=== PATIENT | female | born 1960 | race Caucasian/White ===

== ENCOUNTER → 2022-01-25 07:29 | Outpatient (ROUT) | payer OTHER, MEDICAID, SELFPAY ==
[2022-01-25 08:46] LABS: Add Manual Diff / Slide Review NO; Basophils Absolute Auto 100 /uL (0-100); Basophils Percent Auto 0.8 % (0-2); Eosinophils Absolute Auto 400 /uL (0-450); Eosinophils Percent Auto 4.9 % (2-4); Hematocrit 29.1 % (36-46); Hemoglobin 9.4 g/dL (12.0-16.0); Lymphocytes Absolute Auto 1700 /uL (1100-4500); Lymphocytes Percent Auto 19.9 % (25-40); Mean Corpuscular HGB Conc 32.2 % (30-36); Mean Corpuscular Hemoglobin 29.4 PG (26-34); Mean Corpuscular Volume 91.5 fL (80-100); Monocytes Absolute Auto 700 /uL (0-900); Monocytes Percent Auto 8.3 % (3-14); Neutrophils Absolute Auto 5600 /uL (1500-7000); Neutrophils Percent Auto 66.1 % (50-75); Platelet Count 233 X10^3/uL (150-400); Red Blood Cell Count 3.18 X10^6/uL (4.0-5.2); Red Cell Distribution Width 15.9 % (11.6-14.8); White Blood Cell Count 8.5 X10^3/uL (4.5-11.0)
[2022-01-25 09:00] LABS: Hemoglobin A1C% w Est Avg Glu 6.8 % (4.0-6.0)
[2022-01-25 09:19] LABS: BUN Creatinine Ratio 20.5 (6-22); Blood Urea Nitrogen 42 mg/dL (7-17); Calcium 9.3 mg/dL (8.4-10.2); Carbon Dioxide 32 mmol/L (22-32); Chloride 102 mmol/L (98-107); Estimated Glomerular Filt Rate 27 mL/min (>60); Glucose 138 mg/dL (80-110); HEMOLYSIS < 15 (0-50); Magnesium 1.9 mg/dL (1.6-2.3); Potassium 3.9 mmol/L (3.4-5.1); Sodium 143 mmol/L (137-145)
[2022-01-25 09:51] LABS: Thyroid Stimulating Hormone 0.639 uIU/mL (0.47-4.68)
== END ==
PROVIDERS: Visit Provider Nurse Practitioner Family
DX: E11.22 Type 2 diabetes mellitus with diabetic chronic kidney disease (principal); N18.9 Chronic kidney disease, unspecified; E83.42 Hypomagnesemia; D64.9 Anemia, unspecified
CPT/HCPCS: 36415; 80048; 83036; 83735; 84443; 85025

== ENCOUNTER → 2022-02-08 07:27 | Outpatient (ROUT) | payer OTHER, MEDICAID, SELFPAY ==
[2022-02-08 07:53] LABS: Hematocrit 34.1 % (36-46); Hemoglobin 11.2 g/dL (12.0-16.0)
[2022-02-08 08:23] LABS: BUN Creatinine Ratio 17.4 (6-22); Blood Urea Nitrogen 41 mg/dL (7-17); Calcium 10.2 mg/dL (8.4-10.2); Carbon Dioxide 35 mmol/L (22-32); Chloride 95 mmol/L (98-107); Estimated Glomerular Filt Rate 23 mL/min (>60); Glucose 289 mg/dL (80-110); HEMOLYSIS < 15 (0-50); Potassium 3.7 mmol/L (3.4-5.1); Sodium 137 mmol/L (137-145)
== END ==
PROVIDERS: Visit Provider Nurse Practitioner Family
DX: D64.9 Anemia, unspecified (principal); N18.9 Chronic kidney disease, unspecified
CPT/HCPCS: 36415; 80048; 85014; 85018

== ENCOUNTER → 2022-03-15 08:03 | Outpatient (ROUT) | payer OTHER, MEDICAID, SELFPAY ==
[2022-03-15 08:59] LABS: BUN Creatinine Ratio 16.9 (6-22); Blood Urea Nitrogen 30 mg/dL (7-17); Calcium 9.1 mg/dL (8.4-10.2); Carbon Dioxide 32 mmol/L (22-32); Chloride 98 mmol/L (98-107); Estimated Glomerular Filt Rate 32 mL/min (>60); Glucose 207 mg/dL (80-110); HEMOLYSIS < 15 (0-50); Potassium 4.4 mmol/L (3.4-5.1); Sodium 139 mmol/L (137-145)
== END ==
PROVIDERS: Visit Provider Nurse Practitioner Family
DX: N18.9 Chronic kidney disease, unspecified (principal)
CPT/HCPCS: 36415; 80048

== ENCOUNTER → 2022-04-19 07:25 | Outpatient (ROUT) | payer OTHER, MEDICAID, SELFPAY ==
[2022-04-19 07:45] LABS: BUN Creatinine Ratio 20.3 (6-22); Blood Urea Nitrogen 41 mg/dL (7-17); Calcium 9.9 mg/dL (8.4-10.2); Carbon Dioxide 34 mmol/L (22-32); Chloride 94 mmol/L (98-107); Estimated Glomerular Filt Rate 28 mL/min (>60); Glucose 216 mg/dL (80-110); HEMOLYSIS < 15 (0-50); Potassium 4.3 mmol/L (3.4-5.1); Sodium 138 mmol/L (137-145)
== END ==
PROVIDERS: Visit Provider Internal Medicine
DX: N18.9 Chronic kidney disease, unspecified (principal)
CPT/HCPCS: 36415; 80048

== ENCOUNTER → 2022-05-03 07:37 | Outpatient (ROUT) | payer OTHER, MEDICAID, SELFPAY ==
[2022-05-03 07:53] LABS: Alanine Aminotransferase 40 IU/L (<35); Albumin 4.2 g/dL (3.5-5.0); Albumin Globulin Ratio 1.1 (1.0-2.8); Alkaline Phosphatase 81 U/L (38-126); Aspartate Aminotransferase 47 IU/L (14-36); BUN Creatinine Ratio 15.1 (6-22); Bilirubin Total 1.1 mg/dL (0.2-1.3); Bilirubin Unconjugated 0.6 mg/dL (0.0-1.1); Blood Urea Nitrogen 45 mg/dL (7-17); Carbon Dioxide 37 mmol/L (22-32); Chloride 96 mmol/L (98-107); Cholesterol 162 mg/dL (140-199); Estimated Glomerular Filt Rate 17 mL/min (>60); Globulin 3.7 g/dL (1.7-4.1); Glucose 214 mg/dL (80-110); HDL Cholesterol 43 mg/dL (40-60); HEMOLYSIS < 15 (0-50); LDL Cholesterol Calculated 42 mg/dL (<100); Potassium 4.3 mmol/L (3.4-5.1); Sodium 140 mmol/L (137-145); Total Protein 7.9 g/dL (6.3-8.2); Triglycerides 384 mg/dL (35-150)
[2022-05-03 08:02] LABS: Hemoglobin A1C% w Est Avg Glu 9.7 % (4.0-6.0)
[2022-05-03 08:23] LABS: Thyroid Stimulating Hormone 16.3 uIU/mL (0.47-4.68)
== END ==
PROVIDERS: Visit Provider Internal Medicine
DX: E03.9 Hypothyroidism, unspecified (principal); E11.9 Type 2 diabetes mellitus without complications
CPT/HCPCS: 36415; 80048; 80061; 80076; 83036; 84443

== ENCOUNTER → 2022-05-17 07:39 | Outpatient (ROUT) | payer OTHER, MEDICAID, SELFPAY ==
[2022-05-17 08:02] LABS: HEMOLYSIS < 15 (0-50); Iron 76 ug/dL (37-170)
[2022-05-17 08:04] LABS: Albumin 3.9 g/dL (3.5-5.0); BUN Creatinine Ratio 16.5 (6-22); Blood Urea Nitrogen 37 mg/dL (7-17); Calcium 9.6 mg/dL (8.4-10.2); Carbon Dioxide 33 mmol/L (22-32); Chloride 98 mmol/L (98-107); Estimated Glomerular Filt Rate 25 mL/min (>60); Glucose 170 mg/dL (80-110); HEMOLYSIS < 15 (0-50); Magnesium 2.2 mg/dL (1.6-2.3); Phosphorous 3.4 mg/dL (2.8-4.1); Potassium 4.5 mmol/L (3.4-5.1); Sodium 140 mmol/L (137-145); Uric Acid 4.8 mg/dL (2.5-6.2)
[2022-05-17 08:05] LABS: Add Manual Diff / Slide Review NO; Basophils Absolute Auto 0 /uL (0-100); Basophils Percent Auto 0.5 % (0-2); Eosinophils Absolute Auto 500 /uL (0-450); Eosinophils Percent Auto 5.9 % (2-4); Hemoglobin 11.7 g/dL (12.0-16.0); Lymphocytes Absolute Auto 1700 /uL (1100-4500); Lymphocytes Percent Auto 21.7 % (25-40); Mean Corpuscular HGB Conc 32.5 % (30-36); Mean Corpuscular Hemoglobin 31.5 PG (26-34); Mean Corpuscular Volume 96.9 fL (80-100); Monocytes Absolute Auto 700 /uL (0-900); Monocytes Percent Auto 8.5 % (3-14); Neutrophils Absolute Auto 5000 /uL (1500-7000); Neutrophils Percent Auto 63.4 % (50-75); Platelet Count 195 X10^3/uL (150-400); Red Blood Cell Count 3.71 X10^6/uL (4.0-5.2); Red Cell Distribution Width 19.4 % (11.6-14.8); White Blood Cell Count 7.8 X10^3/uL (4.5-11.0)
[2022-05-17 08:14] LABS: Percent Iron Saturation 22 % (15-50); Total Iron Binding Capacity 352 ug/dL (265-497); Transferrin 241 mg/dL (206-381)
[2022-05-17 08:20] LABS: Vitamin D 25 Hydroxy (D3) 47.8 ng/mL (30.0-100.0)
[2022-05-17 08:38] LABS: Ferritin 40 ng/mL (11-264)
[2022-05-19 10:43] LABS: Parathyroid Hormone Int 35 pg/mL (15-65)
== END ==
PROVIDERS: Visit Provider Internal Medicine Nephrology
DX: N18.4 Chronic kidney disease, stage 4 (severe) (principal)
CPT/HCPCS: 36415; 80048; 82040; 82306; 82728; 83540; 83550; 83735; 83970; 84100; 84550; 85025

== ENCOUNTER 2022-05-25 09:32 | Inpatient (IN) | payer OTHER, MEDICAID, SELFPAY ==
[2022-05-25] VITALS (147 sets, daily range): BP systolic 80–150; BP diastolic 48–97; PULSE 51–159; RESP 12–45; TEMP 30.4–37.3; O2SAT 78–99; BMI 54.9; BMI 51.9
--- NOTE | 2022-05-25 09:54 | ED_ITS ---
HPI - Weakness General Chief complaint: Shortness of Breath/Dyspnea Stated complaint: Weakness,hypotensive,dizzy Time Seen by Provider: 05/25/22 09:50 Source: patient and EMS Mode of arrival: EMS Limitations: no limitations History of Present Illness HPI Narrative: This is a 61-year-old female with history of autoimmune thyroiditis, hypertension, morbid obesity, diabetes type 2, COPD on daily home O2, dyslipidemia, sleep apnea, CHF and history of colon cancer. Patient presents today for generalized weakness, tremor of her legs, low blood pressure reportedly since midnight she comes from [facility]. Patient seems sleepy she awakens easily to verbal stimuli but falls back asleep. She denies any shortness of breath, she denies any pain no headache, chest pain, not neck or back pain, no abdominal back or flank pain. She notes she is on home O2 constantly, she states that she uses inhalers for her COPD, she states she quit smoking tobacco in the past. She knows she is at a hospital but thinks she is at [facility], she does not know the month and the year, she knows why she is here she is able to give history but falls asleep in between questions. Patient denies any fevers, cold cough or congestion she states no nausea or vomiting. She states she is been constipated but passing gas. She denies any new changes to had chest pain or shortness breath. She denies new swelling in her extremities. She states she normally ambulates. She is unsure who her primary care is, she denies any prior surgeries. No known drug allergies. States she quit tobacco, no alcohol, no illicit. Related Data Home Medications Medication Instructions Recorded Confirmed acetaminophen 325 mg tablet 650 mg PO TID 05/25/22 05/25/22 (Tylenol) albuterol sulfate 90 mcg/actuation 4 puff inhalation Q4H PRN Wheezing 05/25/22 05/25/22 aerosol inhaler aspirin 81 mg tablet,delayed 81 mg PO DAILY 05/25/22 05/25/22 release budesonide-formoterol HFA 160 2 puff inhalation Q4H PRN Wheezing 05/25/22 05/25/22 mcg-4.5 mcg/actuation aerosol inhaler bupropion HCl 150 mg tablet,12 hr 150 mg PO BEDTIME 05/25/22 05/25/22 sustained-release carvedilol 3.125 mg tablet 3.125 mg PO BID 05/25/22 05/25/22 cyanocobalamin (vitamin B-12) 500 500 mcg PO DAILY 05/25/22 05/25/22 mcg tablet fenofibrate 160 mg tablet 160 mg PO DAILY 05/25/22 05/25/22 ferrous sulfate 325 mg (65 mg 325 mg PO DAILY 05/25/22 05/25/22 iron) tablet fluoxetine 20 mg tablet 20 mg PO DAILY 05/25/22 05/25/22 fluticasone propionate 50 2 spray intranasal DAILY 05/25/22 05/25/22 mcg/actuation nasal spray,suspension gabapentin 300 mg capsule 300 mg PO BEDTIME 05/25/22 05/25/22 insulin glargine 100 unit/mL (3 22 unit SUBCUT BID 05/25/22 05/25/22 mL) subcutaneous pen insulin lispro 100 unit/mL 4 unit SUBCUT TIDWM 05/25/22 05/25/22 subcutaneous solution (Humalog U-100 Insulin) levothyroxine 200 mcg tablet 200 mcg PO DAILY 05/25/22 05/25/22 lidocaine 5 % topical patch 1 patch topical DAILY 05/25/22 05/25/22 loratadine 10 mg tablet 10 mg PO DAILY 05/25/22 05/25/22 magnesium hydroxide 400 mg/5 mL 15 ml PO Q24H PRN Constipation 05/25/22 05/25/22 oral suspension (Milk of Magnesia) magnesium oxide 200 mg PO BID 05/25/22 05/25/22 meclizine 25 mg tablet 25 mg PO Q8HR PRN Dizziness 05/25/22 05/25/22 montelukast 10 mg tablet 10 mg PO DAILY 05/25/22 05/25/22 nystatin 100,000 unit/gram topical 1 applic topical BID PRN Rash 05/25/22 05/25/22 powder ondansetron 4 mg disintegrating 4 mg PO Q8H PRN Nausea 05/25/22 05/25/22 tablet rosuvastatin 40 mg tablet 40 mg PO DAILY 05/25/22 05/25/22 sennosides 8.6 mg tablet (senna) 17.2 mg PO BEDTIME 05/25/22 05/25/22 tiotropium bromide 18 mcg capsule 1 cap inhalation DAILY 05/25/22 05/25/22 with inhalation device (Spiriva with HandiHaler) torsemide 10 mg tablet 30 mg PO DAILY 05/25/22 05/25/22 trazodone 50 mg tablet 50 mg PO BEDTIME 05/25/22 05/25/22 Allergies Allergy/AdvReac Type Severity Reaction Status Date / Time No Known Drug Allergies Allergy Verified 05/25/22 12:43 Review of Systems Review of Systems ROS Unobtainable: All systems reviewed & are unremarkable except as noted in HPI and below Patient History Medical History (Updated 05/25/22 @ 19:18 by Jayne Muhammad DO) Chronic hypoxemic respiratory failure COPD (chronic obstructive pulmonary disease) DM2 (diabetes mellitus, type 2) HTN (hypertension) Obesity PONCE (obstructive sleep apnea) Systolic and diastolic CHF, chronic Thyroiditis Surgical History (Updated 05/25/22 @ 18:30 by Esteban Gillespie DO) S/P hernia surgery Family History (Updated 05/25/22 @ 18:31 by Esteban Gillespie DO) Mother No pertinent past medical history Father No pertinent past medical history Exam Narrative Exam Narrative: GEN: Obese female, patient awakens easily to verbal stimuli but falls back asleep oriented that she is in the hospital does get them wrong facility but does know the month the year, why she is here, patient appears to be in mild distress. HEENT: Atraumatic, pupils are equal round reactive to light, pupils are 5-6 mm bilaterally extraocular movements are intact, nares are clear, there is no conjunctival pallor. Throat is clear without any exudates, erythema, tonsillar enlargement or uvular deviation, no facial droop. HEART: Regular rate and rhythm without murmur, clicks, rubs.pulses are equal in upper and lower extremities LUNGS:Lungs decreased bilaterally although difficult to auscultate secondary to habitus, no wheezes, rales, crackles, chest moves symmetrically ABD:bowel sounds normal, soft, non-tender, no guarding, rebound, rigidity, no masses noted, no hepatosplenomegaly :No CVA tenderness MSCL: Non-tender, no muscle atrophy, patient has full range of motion upper extremities, patient can lift legs off bed, no lateralizing weakness but does have some difficulty. NEURO:CN 2-12 intact, sensation normal Initial Vital Signs Initial Vital Signs: Vital Signs Pulse Rate 68 05/25/22 09:37 Pulse Oximetry 88 L 05/25/22 09:37 Oxygen Delivery Method Nasal Cannula 05/25/22 09:37 Oxygen Flow Rate 2 05/25/22 09:37 Course Orders Ordered: ED Orders 05/25/22 10:20 CT head/brain wo con Stat Chest [XR chest 1V] Stat 05/25/22 10:53 Acetaminophen Stat Ammonia (NH3) Stat Ethanol (ETOH) Stat Osmolality, Serum Stat Prolactin Stat Salicylate Stat 05/25/22 11:08 Blood Culture Stat 05/25/22 11:10 Arterial Blood Gas Stat 05/25/22 11:48 BiPAP Ventilatory Support RT PROTOCOL 05/25/22 11:50 Urine Culture Stat Urine Drug Screen, Rapid Stat 05/25/22 12:54 ABG [Arterial Blood Gas] Stat 05/25/22 13:24 CT abdomen pelvis w con Stat CT angio chest PE protocol Stat 05/25/22 13:30 XR chest for PICC 1V Stat 05/25/22 15:05 ABG [Arterial Blood Gas] Stat 05/25/22 15:13 Urinalysis and Microscopic Stat 05/25/22 15:34 BMP [Basic Metabolic Panel] Stat Lactate (Lactic Acid) Stat Troponin & CK Cardiac Panel Stat 05/25/22 17:18 VBG [Venous Blood Gas] Stat 05/25/22 18:37 Consult to Tele-recreation leader Routine BiPAP Ventilatory Support RT PROTOCOL RT Consult Eval and Treat NOW Albuterol (Albuterol 2.5 Mg/3 Ml Neb (Adult)) 2.5 mg INH [id number] PRN PRN Reason: Shortness Of Breath Albuterol/Ipratropium (Albuterol/Ipratropium 3 Ml Ampul) 3 ml INH [id number] JAY JAY Dextrose (Dextrose 50 % In Water 25 Gm/50 Ml Syringe) 25 gm IV PRN PRN PRN Reason: Hypoglycemia Enoxaparin Sodium (Enoxaparin 30 Mg/0.3 Ml Syringe) 30 mg SUBCUT DAILY JAY JAY NOREPINEPHRINE BITARTRATE/D5W (Levophed) 4 mg in 250 mls @ 30 mls/hr IV TITRATE JAY JAY; Protocol Last Titration: 05/25/22 18:45 Dose: 2 mcg/min, 7.5 mls/hr Documented By: Titration: 05/25/22 18:00 Dose: 4 mcg/min, 15 mls/hr Documented By: Titration: 05/25/22 16:22 Dose: 6 mcg/min, 22.5 mls/hr Documented By: Titration: 05/25/22 15:00 Dose: 7 mcg/min, 26.25 mls/hr Documented By: Admin: 05/25/22 12:58 Dose: 8 mcg/min, 30 mls/hr Documented By: PAVEL Ceftriaxone Sodium 1,000 mg/ (Sodium Chloride) 100 mls @ 200 mls/hr IV Q24H JAY JAY Insulin Glargine (Insulin Glargine 100 Unit/Ml 3ml Pen) 10 unit SUBCUT 2100 JAY JAY Insulin Human Lispro (Insulin Lispro 100 Unit/Ml 3ml Vial) 0 unit SUBCUT ACHS JAY JAY; Protocol Naloxone HCl (Naloxone 0.4 Mg/Ml Vial) 0.2 mg IV Q2MIN PRN PRN Reason: Opiate Reversal Last Admin: 05/25/22 12:35 Dose: 0.2 mg Documented By: Admin: 05/25/22 12:27 Dose: 0.2 mg Documented By: PAVEL Naloxone HCl (Naloxone 0.4 Mg/Ml Vial) 0.2 mg IV Q2MIN PRN PRN Reason: Opiate Reversal Discontinued Medications Sodium Chloride (Normal Saline 0.9%) 1,000 mls @ 1,000 mls/hr IV BOLUS ONE Stop: 05/25/22 11:19 Last Infusion: 05/25/22 13:15 Dose: 0 mls/hr Documented By: Admin: 05/25/22 11:30 Dose: 1,000 mls/hr Documented By: PAVEL Piperacillin Sod/Tazobactam (Sod 4.5 gm/ Sodium Chloride) 100 mls @ 200 mls/hr IV NOW ONE Stop: 05/25/22 12:43 Last Infusion: 05/25/22 13:45 Dose: 0 mls/hr Documented By: Admin: 05/25/22 13:05 Dose: 200 mls/hr Documented By: PAVEL Lactated Ringer's (Lactated Ringers) 1,000 mls @ 1,000 mls/hr IV BOLUS ONE Stop: 05/25/22 15:57 Last Infusion: 05/25/22 17:05 Dose: 0 mls/hr Documented By: PAVEL(2) Admin: 05/25/22 15:10 Dose: 1,000 mls/hr Documented By: PAVEL Lactated Ringer's (Lactated Ringers) 1,000 mls @ 125 mls/hr IV CONT JAY JAY Last Infusion: 05/25/22 19:02 Dose: 0 mls/hr Documented By: Admin: 05/25/22 17:50 Dose: 125 mls/hr Documented By: PAVEL Vital Signs Vital signs: Vital Signs - 8 hr 05/25/22 11:35 05/25/22 11:30 05/25/22 11:45 Pulse Rate 62 60 Respiratory Rate 23 25 H Blood Pressure Pulse Oximetry 95 92 Oxygen Delivery Method Fraction of Inspired Oxygen 30 05/25/22 12:00 05/25/22 12:15 05/25/22 12:22 Pulse Rate 61 54 L Respiratory Rate 27 H 26 H Blood Pressure 87/51 L Pulse Oximetry 93 Oxygen Delivery Method Fraction of Inspired Oxygen 05/25/22 12:22 05/25/22 12:25 05/25/22 12:25 Pulse Rate 52 L 52 L Respiratory Rate 24 24 Blood Pressure 80/52 L Pulse Oximetry 91 91 Oxygen Delivery Method Fraction of Inspired Oxygen 05/25/22 12:53 05/25/22 12:30 05/25/22 12:30 Pulse Rate 51 L Respiratory Rate 24 Blood Pressure 91/61 82/52 L Pulse Oximetry 91 Oxygen Delivery Method Fraction of Inspired Oxygen 05/25/22 12:33 05/25/22 12:33 05/25/22 12:35 Pulse Rate 52 L Respiratory Rate 21 Blood Pressure 87/49 L 85/48 L Pulse Oximetry 93 Oxygen Delivery Method Fraction of Inspired Oxygen 05/25/22 12:35 05/25/22 12:40 05/25/22 12:40 Pulse Rate 52 L 51 L Respiratory Rate 21 21 Blood Pressure 84/51 L Pulse Oximetry 92 92 Oxygen Delivery Method Fraction of Inspired Oxygen 05/25/22 12:45 05/25/22 12:45 05/25/22 12:50 Pulse Rate 51 L 52 L Respiratory Rate 22 22 Blood Pressure 83/52 L Pulse Oximetry 92 93 Oxygen Delivery Method Fraction of Inspired Oxygen 05/25/22 12:52 05/25/22 12:52 05/25/22 12:55 Pulse Rate 53 L Respiratory Rate 22 Blood Pressure 91/61 91/59 L Pulse Oximetry 93 Oxygen Delivery Method BiPAP BiPAP Fraction of Inspired Oxygen 05/25/22 12:55 05/25/22 13:00 05/25/22 13:00 Pulse Rate 54 L 54 L Respiratory Rate 24 20 Blood Pressure 89/63 L Pulse Oximetry 93 93 Oxygen Delivery Method BiPAP Fraction of Inspired Oxygen 05/25/22 13:05 05/25/22 13:05 05/25/22 13:10 Pulse Rate 52 L Respiratory Rate 20 Blood Pressure 98/71 106/85 Pulse Oximetry 95 Oxygen Delivery Method BiPAP Fraction of Inspired Oxygen 05/25/22 13:10 05/25/22 13:15 05/25/22 13:15 Pulse Rate 62 56 L Respiratory Rate 20 21 Blood Pressure 115/86 Pulse Oximetry 97 97 Oxygen Delivery Method BiPAP Fraction of Inspired Oxygen 05/25/22 13:20 05/25/22 13:20 05/25/22 13:25 Pulse Rate 56 L Respiratory Rate 21 Blood Pressure 119/83 119/84 Pulse Oximetry 97 Oxygen Delivery Method BiPAP Fraction of Inspired Oxygen 05/25/22 13:25 05/25/22 13:30 05/25/22 13:30 Pulse Rate 55 L 57 L Respiratory Rate 21 21 Blood Pressure 117/86 Pulse Oximetry 96 96 Oxygen Delivery Method Fraction of Inspired Oxygen 05/25/22 13:35 05/25/22 13:35 05/25/22 13:40 Pulse Rate 58 L Respiratory Rate 21 Blood Pressure 120/87 123/85 Pulse Oximetry 96 Oxygen Delivery Method Fraction of Inspired Oxygen 05/25/22 13:40 05/25/22 13:45 05/25/22 13:45 Pulse Rate 58 L 59 L Respiratory Rate 21 21 Blood Pressure 122/85 Pulse Oximetry 98 97 Oxygen Delivery Method Fraction of Inspired Oxygen 05/25/22 13:50 05/25/22 13:50 05/25/22 13:55 Pulse Rate 58 L Respiratory Rate 25 H Blood Pressure 127/87 125/91 H Pulse Oximetry 99 Oxygen Delivery Method Fraction of Inspired Oxygen 05/25/22 13:55 05/25/22 13:55 05/25/22 14:00 Pulse Rate 58 L Respiratory Rate 25 H Blood Pressure 125/91 H 127/92 H Pulse Oximetry 98 Oxygen Delivery Method Fraction of Inspired Oxygen 05/25/22 14:00 05/25/22 14:00 05/25/22 14:05 Pulse Rate 62 62 Respiratory Rate 26 H 25 H Blood Pressure 127/92 H Pulse Oximetry 98 98 Oxygen Delivery Method Fraction of Inspired Oxygen 05/25/22 14:07 05/25/22 14:07 05/25/22 14:10 Pulse Rate 64 61 Respiratory Rate 25 H 25 H Blood Pressure 150/85 H Pulse Oximetry 96 95 Oxygen Delivery Method Fraction of Inspired Oxygen 05/25/22 14:11 05/25/22 14:11 05/25/22 14:15 Pulse Rate 60 Respiratory Rate 25 H Blood Pressure 123/83 135/90 Pulse Oximetry 96 Oxygen Delivery Method Fraction of Inspired Oxygen 05/25/22 14:15 05/25/22 14:20 05/25/22 14:20 Pulse Rate 59 L 60 Respiratory Rate 21 21 Blood Pressure 137/88 Pulse Oximetry 97 97 Oxygen Delivery Method Fraction of Inspired Oxygen 05/25/22 14:25 05/25/22 14:25 05/25/22 14:30 Pulse Rate 60 Respiratory Rate 21 Blood Pressure 130/88 130/89 Pulse Oximetry 97 Oxygen Delivery Method Fraction of Inspired Oxygen 05/25/22 14:30 05/25/22 14:33 05/25/22 14:33 Pulse Rate 59 L 60 Respiratory Rate 20 20 Blood Pressure 135/81 Pulse Oximetry 97 97 Oxygen Delivery Method Fraction of Inspired Oxygen 05/25/22 14:35 05/25/22 14:35 05/25/22 14:40 Pulse Rate 61 Respiratory Rate 21 Blood Pressure 129/97 H 114/85 Pulse Oximetry 97 Oxygen Delivery Method Fraction of Inspired Oxygen 05/25/22 14:40 05/25/22 14:45 05/25/22 14:45 Pulse Rate 64 64 Respiratory Rate 20 21 Blood Pressure 123/86 Pulse Oximetry 96 98 Oxygen Delivery Method Fraction of Inspired Oxygen 05/25/22 14:47 05/25/22 14:47 05/25/22 14:50 Pulse Rate 62 Respiratory Rate 20 Blood Pressure 133/86 134/88 Pulse Oximetry 98 Oxygen Delivery Method Fraction of Inspired Oxygen 05/25/22 14:50 05/25/22 14:55 05/25/22 14:55 Pulse Rate 59 L 59 L Respiratory Rate 21 20 Blood Pressure 133/91 H Pulse Oximetry 97 96 Oxygen Delivery Method Fraction of Inspired Oxygen 05/25/22 15:00 05/25/22 15:00 05/25/22 15:05 Pulse Rate 59 L 58 L Respiratory Rate 21 21 Blood Pressure 131/90 Pulse Oximetry 95 95 Oxygen Delivery Method BiPAP Fraction of Inspired Oxygen 05/25/22 15:10 05/25/22 15:10 05/25/22 15:15 Pulse Rate 58 L 61 Respiratory Rate 25 H 24 Blood Pressure 131/83 Pulse Oximetry 95 95 Oxygen Delivery Method BiPAP Fraction of Inspired Oxygen 05/25/22 15:20 05/25/22 15:25 05/25/22 15:30 Pulse Rate 61 60 59 L Respiratory Rate 23 25 H 24 Blood Pressure 130/82 Pulse Oximetry 94 95 96 Oxygen Delivery Method Fraction of Inspired Oxygen 05/25/22 15:35 05/25/22 15:40 05/25/22 15:45 Pulse Rate 59 L 60 59 L Respiratory Rate 25 H 25 H 24 Blood Pressure Pulse Oximetry 96 96 95 Oxygen Delivery Method Fraction of Inspired Oxygen 05/25/22 15:50 05/25/22 15:55 05/25/22 16:00 Pulse Rate 59 L 58 L 58 L Respiratory Rate 25 H 25 H 25 H Blood Pressure 128/86 Pulse Oximetry 96 96 96 Oxygen Delivery Method Fraction of Inspired Oxygen 05/25/22 16:05 05/25/22 16:10 05/25/22 16:15 Pulse Rate 56 L 55 L 55 L Respiratory Rate 25 H 25 H 25 H Blood Pressure Pulse Oximetry 96 96 96 Oxygen Delivery Method Fraction of Inspired Oxygen 05/25/22 16:20 05/25/22 16:25 05/25/22 16:28 Pulse Rate 55 L 60 60 Respiratory Rate 25 H 25 H 25 H Blood Pressure Pulse Oximetry 96 94 95 Oxygen Delivery Method BiPAP Fraction of Inspired Oxygen 05/25/22 16:29 05/25/22 17:00 05/25/22 16:29 Pulse Rate 60 Respiratory Rate 25 H Blood Pressure 126/84 112/70 Pulse Oximetry 96 Oxygen Delivery Method Fraction of Inspired Oxygen 05/25/22 16:30 05/25/22 16:30 05/25/22 16:35 Pulse Rate 59 L Respiratory Rate 25 H Blood Pressure 128/83 126/85 Pulse Oximetry 95 Oxygen Delivery Method Fraction of Inspired Oxygen 05/25/22 16:35 05/25/22 16:40 05/25/22 16:40 Pulse Rate 57 L 58 L Respiratory Rate 25 H 25 H Blood Pressure 126/84 Pulse Oximetry 95 96 Oxygen Delivery Method Fraction of Inspired Oxygen 05/25/22 16:45 05/25/22 16:45 05/25/22 16:50 Pulse Rate 60 Respiratory Rate 26 H Blood Pressure 118/73 124/79 Pulse Oximetry 95 Oxygen Delivery Method Fraction of Inspired Oxygen 05/25/22 16:50 05/25/22 16:55 05/25/22 16:55 Pulse Rate 58 L 60 Respiratory Rate 25 H 25 H Blood Pressure 121/77 Pulse Oximetry 94 95 Oxygen Delivery Method Fraction of Inspired Oxygen 05/25/22 17:00 05/25/22 17:00 05/25/22 17:05 Pulse Rate 59 L Respiratory Rate 25 H Blood Pressure 119/78 120/81 Pulse Oximetry 97 Oxygen Delivery Method BiPAP Fraction of Inspired Oxygen 05/25/22 17:05 05/25/22 17:10 05/25/22 17:10 Pulse Rate 57 L 60 Respiratory Rate 25 H 25 H Blood Pressure 122/81 Pulse Oximetry 99 96 Oxygen Delivery Method Fraction of Inspired Oxygen 05/25/22 17:15 05/25/22 17:15 05/25/22 17:20 Pulse Rate 59 L Respiratory Rate 22 Blood Pressure 123/83 122/76 Pulse Oximetry 95 Oxygen Delivery Method Fraction of Inspired Oxygen 05/25/22 17:20 Pulse Rate 58 L Respiratory Rate 24 Blood Pressure Pulse Oximetry 96 Oxygen Delivery Method Fraction of Inspired Oxygen MDM - Weakness Lab Data 05/25/22 09:00 05/25/22 15:34 Labs: Lab Results 05/25/22 05/25/22 05/25/22 Range/Units 09:00 09:00 09:00 WBC 8.8 (4.5-11.0) X10^3/uL RBC 3.34 L (4.0-5.2) X10^6/uL Hgb 10.7 L (12.0-16.0) g/dL Hct 33.5 L (36-46) % MCV 100.3 H D (80-100) fL MCH 32.2 (26-34) PG MCHC 32.1 (30-36) % RDW 19.6 H (11.6-14.8) % Plt Count 183 (150-400) X10^3/uL Neut % (Auto) 68.6 (50-75) % Lymph % (Auto) 19.6 L (25-40) % [place] % (Auto) 8.8 (3-14) % Eos % (Auto) 2.5 (2-4) % Baso % (Auto) 0.5 (0-2) % Neut # (Auto) 6000 (3689-1207) /uL Lymph # (Auto) 1700 (7293-7691) /uL [place] # (Auto) 800 (0-900) /uL Eos # (Auto) 200 (0-450) /uL Baso # (Auto) 0 (0-100) /uL PT 12.6 (10.1-12.7) SECONDS INR 1.1 (0.9-1.3) APTT 31 (26-36) SECONDS ABG pH (7.35-7.45) ABG pCO2 (35-45) mmHg ABG pO2 (80-100) mmHg ABG HCO3 (23-27) mmol/L ABG Total CO2 (23-27) mmol/L ABG O2 Saturation (95-100) % ABG Base Excess (-2-3) mmol/L VBG pH (7.33-7.43) VBG pCO2 (45-50) mmHg VBG pO2 (35-45) mmHg VBG HCO3 (24-28) mmol/L VBG Total CO2 (24-29) mmol/L VBG O2 Saturation (70-75) % VBG Base Excess (0-4) mmol/L FiO2 Sodium 139 (137-145) mmol/L Potassium 4.9 (3.4-5.1) mmol/L Chloride 96 L (98-107) mmol/L Carbon Dioxide 37 H (22-32) mmol/L BUN 57 H (7-17) mg/dL Creatinine 3.11 H (0.52-1.04) mg/dL Estimated GFR 17 L (>60) mL/min BUN/Creatinine Ratio 18.3 (6-22) Glucose 127 H (80-110) mg/dL Lactate (0.7-2.1) mmol/L Calcium 9.7 (8.4-10.2) mg/dL Total Bilirubin 0.5 (0.2-1.3) mg/dL AST 50 H (14-36) IU/L ALT 21 (<35) IU/L Alkaline Phosphatase 49 (38-126) U/L Ammonia (9-30) umol/L Total Creatine Kinase 2243 H (30-135) U/L CK-MB (CK-2) 12.70 H (<2.37) ng/mL CK-MB (CK-2) Rel Index 0.6 L (1.5-5.0) % Troponin I 0.052 H (0.01-0.034) ng/mL NT-Pro-B Natriuret Pep (<125) pg/mL Total Protein 7.5 (6.3-8.2) g/dL Albumin 4.1 (3.5-5.0) g/dL Globulin 3.4 (1.7-4.1) g/dL Albumin/Globulin Ratio 1.2 (1.0-2.8) Procalcitonin 0.20 (<0.5) ng/mL TSH (0.47-4.68) uIU/mL Prolactin (3.0-18.6) ng/mL Urine Color Urine Appearance Urine pH (4.5-8.0) Ur Specific [place] (1.000-1.035) Urine Protein (Negative) Urine Glucose (UA) (Negative) g/dL Urine Ketones (NEGATIVE) Urine Occult Blood (Negative) Urine Nitrate (Negative) Urine Bilirubin (NEGATIVE) Urine Urobilinogen (0.2) E.U./dL Ur Leukocyte Esterase (NEGATIVE) Urine RBC (0-5/HPF) Urine WBC (0-5/HPF) Ur Squamous Epith Cells (0-5/HPF) Urine Bacteria (None) Hyaline Casts (None) Ur Culture Indicated? Salicylates (<20) mg/dL U Opiates 300ng/mL cut (Negative) Ur Oxycodone Screen (Negative) Urine Methadone Screen (Negative) Acetaminophen (10-30) ug/mL Ur Barbiturates Screen (Negative) U Tricyclic Antidepress (Negative) Ur Phencyclidine Scrn (Negative) Ur Amphetamines Screen (Negative) U Methamphetamines Scrn (Negative) Ur MDMA Scrn (Ecstasy) (Negative) U Benzodiazepines Scrn (Negative) Urine Cocaine Screen (Negative) U Marijuana (THC) Screen (Negative) Ethyl Alcohol ( - 10) mg/dL 05/25/22 05/25/22 05/25/22 Range/Units 09:00 09:00 09:00 WBC (4.5-11.0) X10^3/uL RBC (4.0-5.2) X10^6/uL Hgb (12.0-16.0) g/dL Hct (36-46) % MCV (80-100) fL MCH (26-34) PG MCHC (30-36) % RDW (11.6-14.8) % Plt Count (150-400) X10^3/uL Neut % (Auto) (50-75) % Lymph % (Auto) (25-40) % [place] % (Auto) (3-14) % Eos % (Auto) (2-4) % Baso % (Auto) (0-2) % Neut # (Auto) (6856-8442) /uL Lymph # (Auto) (8234-8601) /uL [place] # (Auto) (0-900) /uL Eos # (Auto) (0-450) /uL Baso # (Auto) (0-100) /uL PT (10.1-12.7) SECONDS INR (0.9-1.3) APTT (26-36) SECONDS ABG pH (7.35-7.45) ABG pCO2 (35-45) mmHg ABG pO2 (80-100) mmHg ABG HCO3 (23-27) mmol/L ABG Total CO2 (23-27) mmol/L ABG O2 Saturation (95-100) % ABG Base Excess (-2-3) mmol/L VBG pH (7.33-7.43) VBG pCO2 (45-50) mmHg VBG pO2 (35-45) mmHg VBG HCO3 (24-28) mmol/L VBG Total CO2 (24-29) mmol/L VBG O2 Saturation (70-75) % VBG Base Excess (0-4) mmol/L FiO2 Sodium (137-145) mmol/L Potassium (3.4-5.1) mmol/L Chloride (98-107) mmol/L Carbon Dioxide (22-32) mmol/L BUN (7-17) mg/dL Creatinine (0.52-1.04) mg/dL Estimated GFR (>60) mL/min BUN/Creatinine Ratio (6-22) Glucose (80-110) mg/dL Lactate 1.1 (0.7-2.1) mmol/L Calcium (8.4-10.2) mg/dL Total Bilirubin (0.2-1.3) mg/dL AST (14-36) IU/L ALT (<35) IU/L Alkaline Phosphatase (38-126) U/L Ammonia (9-30) umol/L Total Creatine Kinase (30-135) U/L CK-MB (CK-2) (<2.37) ng/mL CK-MB (CK-2) Rel Index (1.5-5.0) % Troponin I (0.01-0.034) ng/mL NT-Pro-B Natriuret Pep 5690 H (<125) pg/mL Total Protein (6.3-8.2) g/dL Albumin (3.5-5.0) g/dL Globulin (1.7-4.1) g/dL Albumin/Globulin Ratio (1.0-2.8) Procalcitonin (<0.5) ng/mL TSH 3.19 (0.47-4.68) uIU/mL Prolactin (3.0-18.6) ng/mL Urine Color Urine Appearance Urine pH (4.5-8.0) Ur Specific [place] (1.000-1.035) Urine Protein (Negative) Urine Glucose (UA) (Negative) g/dL Urine Ketones (NEGATIVE) Urine Occult Blood (Negative) Urine Nitrate (Negative) Urine Bilirubin (NEGATIVE) Urine Urobilinogen (0.2) E.U./dL Ur Leukocyte Esterase (NEGATIVE) Urine RBC (0-5/HPF) Urine WBC (0-5/HPF) Ur Squamous Epith Cells (0-5/HPF) Urine Bacteria (None) Hyaline Casts (None) Ur Culture Indicated? Salicylates (<20) mg/dL U Opiates 300ng/mL cut (Negative) Ur Oxycodone Screen (Negative) Urine Methadone Screen (Negative) Acetaminophen (10-30) ug/mL Ur Barbiturates Screen (Negative) U Tricyclic Antidepress (Negative) Ur Phencyclidine Scrn (Negative) Ur Amphetamines Screen (Negative) U Methamphetamines Scrn (Negative) Ur MDMA Scrn (Ecstasy) (Negative) U Benzodiazepines Scrn (Negative) Urine Cocaine Screen (Negative) U Marijuana (THC) Screen (Negative) Ethyl Alcohol ( - 10) mg/dL 05/25/22 05/25/22 05/25/22 Range/Units 10:53 10:53 11:10 WBC (4.5-11.0) X10^3/uL RBC (4.0-5.2) X10^6/uL Hgb (12.0-16.0) g/dL Hct (36-46) % MCV (80-100) fL MCH (26-34) PG MCHC (30-36) % RDW (11.6-14.8) % Plt Count (150-400) X10^3/uL Neut % (Auto) (50-75) % Lymph % (Auto) (25-40) % [place] % (Auto) (3-14) % Eos % (Auto) (2-4) % Baso % (Auto) (0-2) % Neut # (Auto) (4138-5213) /uL Lymph # (Auto) (2574-9719) /uL [place] # (Auto) (0-900) /uL Eos # (Auto) (0-450) /uL Baso # (Auto) (0-100) /uL PT (10.1-12.7) SECONDS INR (0.9-1.3) APTT (26-36) SECONDS ABG pH 7.31 L (7.35-7.45) ABG pCO2 71.9 H* (35-45) mmHg ABG pO2 106 H (80-100) mmHg ABG HCO3 36 H (23-27) mmol/L ABG Total CO2 38 H (23-27) mmol/L ABG O2 Saturation 97 (95-100) % ABG Base Excess 10.0 H (-2-3) mmol/L VBG pH (7.33-7.43) VBG pCO2 (45-50) mmHg VBG pO2 (35-45) mmHg VBG HCO3 (24-28) mmol/L VBG Total CO2 (24-29) mmol/L VBG O2 Saturation (70-75) % VBG Base Excess (0-4) mmol/L FiO2 32 Sodium (137-145) mmol/L Potassium (3.4-5.1) mmol/L Chloride (98-107) mmol/L Carbon Dioxide (22-32) mmol/L BUN (7-17) mg/dL Creatinine (0.52-1.04) mg/dL Estimated GFR (>60) mL/min BUN/Creatinine Ratio (6-22) Glucose (80-110) mg/dL Lactate (0.7-2.1) mmol/L Calcium (8.4-10.2) mg/dL Total Bilirubin (0.2-1.3) mg/dL AST (14-36) IU/L ALT (<35) IU/L Alkaline Phosphatase (38-126) U/L Ammonia < 9 L (9-30) umol/L Total Creatine Kinase (30-135) U/L CK-MB (CK-2) (<2.37) ng/mL CK-MB (CK-2) Rel Index (1.5-5.0) % Troponin I (0.01-0.034) ng/mL NT-Pro-B Natriuret Pep (<125) pg/mL Total Protein (6.3-8.2) g/dL Albumin (3.5-5.0) g/dL Globulin (1.7-4.1) g/dL Albumin/Globulin Ratio (1.0-2.8) Procalcitonin (<0.5) ng/mL TSH (0.47-4.68) uIU/mL Prolactin 18.0 (3.0-18.6) ng/mL Urine Color Urine Appearance Urine pH (4.5-8.0) Ur Specific [place] (1.000-1.035) Urine Protein (Negative) Urine Glucose (UA) (Negative) g/dL Urine Ketones (NEGATIVE) Urine Occult Blood (Negative) Urine Nitrate (Negative) Urine Bilirubin (NEGATIVE) Urine Urobilinogen (0.2) E.U./dL Ur Leukocyte Esterase (NEGATIVE) Urine RBC (0-5/HPF) Urine WBC (0-5/HPF) Ur Squamous Epith Cells (0-5/HPF) Urine Bacteria (None) Hyaline Casts (None) Ur Culture Indicated? Salicylates < 1.0 (<20) mg/dL U Opiates 300ng/mL cut (Negative) Ur Oxycodone Screen (Negative) Urine Methadone Screen (Negative) Acetaminophen < 10 (10-30) ug/mL Ur Barbiturates Screen (Negative) U Tricyclic Antidepress (Negative) Ur Phencyclidine Scrn (Negative) Ur Amphetamines Screen (Negative) U Methamphetamines Scrn (Negative) Ur MDMA Scrn (Ecstasy) (Negative) U Benzodiazepines Scrn (Negative) Urine Cocaine Screen (Negative) U Marijuana (THC) Screen (Negative) Ethyl Alcohol < 10 ( - 10) mg/dL 05/25/22 05/25/22 05/25/22 Range/Units 11:50 11:50 12:54 WBC (4.5-11.0) X10^3/uL RBC (4.0-5.2) X10^6/uL Hgb (12.0-16.0) g/dL Hct (36-46) % MCV (80-100) fL MCH (26-34) PG MCHC (30-36) % RDW (11.6-14.8) % Plt Count (150-400) X10^3/uL Neut % (Auto) (50-75) % Lymph % (Auto) (25-40) % [place] % (Auto) (3-14) % Eos % (Auto) (2-4) % Baso % (Auto) (0-2) % Neut # (Auto) (5104-0689) /uL Lymph # (Auto) (0140-4064) /uL [place] # (Auto) (0-900) /uL Eos # (Auto) (0-450) /uL Baso # (Auto) (0-100) /uL PT (10.1-12.7) SECONDS INR (0.9-1.3) APTT (26-36) SECONDS ABG pH 7.29 L* (7.35-7.45) ABG pCO2 69.7 H* (35-45) mmHg ABG pO2 78 L (80-100) mmHg ABG HCO3 33 H (23-27) mmol/L ABG Total CO2 35 H (23-27) mmol/L ABG O2 Saturation 93 L (95-100) % ABG Base Excess 7.0 H (-2-3) mmol/L VBG pH (7.33-7.43) VBG pCO2 (45-50) mmHg VBG pO2 (35-45) mmHg VBG HCO3 (24-28) mmol/L VBG Total CO2 (24-29) mmol/L VBG O2 Saturation (70-75) % VBG Base Excess (0-4) mmol/L FiO2 30 Sodium (137-145) mmol/L Potassium (3.4-5.1) mmol/L Chloride (98-107) mmol/L Carbon Dioxide (22-32) mmol/L BUN (7-17) mg/dL Creatinine (0.52-1.04) mg/dL Estimated GFR (>60) mL/min BUN/Creatinine Ratio (6-22) Glucose (80-110) mg/dL Lactate (0.7-2.1) mmol/L Calcium (8.4-10.2) mg/dL Total Bilirubin (0.2-1.3) mg/dL AST (14-36) IU/L ALT (<35) IU/L Alkaline Phosphatase (38-126) U/L Ammonia (9-30) umol/L Total Creatine Kinase (30-135) U/L CK-MB (CK-2) (<2.37) ng/mL CK-MB (CK-2) Rel Index (1.5-5.0) % Troponin I (0.01-0.034) ng/mL NT-Pro-B Natriuret Pep (<125) pg/mL Total Protein (6.3-8.2) g/dL Albumin (3.5-5.0) g/dL Globulin (1.7-4.1) g/dL Albumin/Globulin Ratio (1.0-2.8) Procalcitonin (<0.5) ng/mL TSH (0.47-4.68) uIU/mL Prolactin (3.0-18.6) ng/mL Urine Color Yellow Urine Appearance Clear Urine pH 7.0 (4.5-8.0) Ur Specific [place] 1.010 (1.000-1.035) Urine Protein 1+ H (Negative) Urine Glucose (UA) Trace H (Negative) g/dL Urine Ketones Negative (NEGATIVE) Urine Occult Blood 2+ H (Negative) Urine Nitrate Negative (Negative) Urine Bilirubin Negative (NEGATIVE) Urine Urobilinogen 0.2 (0.2) E.U./dL Ur Leukocyte Esterase 1+ H (NEGATIVE) Urine RBC 5-10/hpf H (0-5/HPF) Urine WBC 10-30/hpf H (0-5/HPF) Ur Squamous Epith Cells 1-5 /hpf (0-5/HPF) Urine Bacteria None seen (None) Hyaline Casts 1-5/lpf (None) Ur Culture Indicated? Specimen cultured Salicylates (<20) mg/dL U Opiates 300ng/mL cut Negative (Negative) Ur Oxycodone Screen Negative (Negative) Urine Methadone Screen Negative (Negative) Acetaminophen (10-30) ug/mL Ur Barbiturates Screen Negative (Negative) U Tricyclic Antidepress Negative (Negative) Ur Phencyclidine Scrn Negative (Negative) Ur Amphetamines Screen Negative (Negative) U Methamphetamines Scrn Negative (Negative) Ur MDMA Scrn (Ecstasy) Negative (Negative) U Benzodiazepines Scrn Negative (Negative) Urine Cocaine Screen Negative (Negative) U Marijuana (THC) Screen Negative (Negative) Ethyl Alcohol ( - 10) mg/dL 05/25/22 05/25/22 05/25/22 Range/Units 15:34 15:34 17:18 WBC (4.5-11.0) X10^3/uL RBC (4.0-5.2) X10^6/uL Hgb (12.0-16.0) g/dL Hct (36-46) % MCV (80-100) fL MCH (26-34) PG MCHC (30-36) % RDW (11.6-14.8) % Plt Count (150-400) X10^3/uL Neut % (Auto) (50-75) % Lymph % (Auto) (25-40) % [place] % (Auto) (3-14) % Eos % (Auto) (2-4) % Baso % (Auto) (0-2) % Neut # (Auto) (9987-3076) /uL Lymph # (Auto) (1886-8133) /uL [place] # (Auto) (0-900) /uL Eos # (Auto) (0-450) /uL Baso # (Auto) (0-100) /uL PT (10.1-12.7) SECONDS INR (0.9-1.3) APTT (26-36) SECONDS ABG pH (7.35-7.45) ABG pCO2 (35-45) mmHg ABG pO2 (80-100) mmHg ABG HCO3 (23-27) mmol/L ABG Total CO2 (23-27) mmol/L ABG O2 Saturation (95-100) % ABG Base Excess (-2-3) mmol/L VBG pH 7.32 L (7.33-7.43) VBG pCO2 64.1 H (45-50) mmHg VBG pO2 29 L (35-45) mmHg VBG HCO3 33 H (24-28) mmol/L VBG Total CO2 35 H (24-29) mmol/L VBG O2 Saturation 47 L (70-75) % VBG Base Excess 7.0 H (0-4) mmol/L FiO2 30 Sodium 138 (137-145) mmol/L Potassium 4.9 (3.4-5.1) mmol/L Chloride 98 (98-107) mmol/L Carbon Dioxide 34 H (22-32) mmol/L BUN 53 H (7-17) mg/dL Creatinine 3.08 H (0.52-1.04) mg/dL Estimated GFR 17 L (>60) mL/min BUN/Creatinine Ratio 17.2 (6-22) Glucose 115 H (80-110) mg/dL Lactate 1.2 (0.7-2.1) mmol/L Calcium 9.1 (8.4-10.2) mg/dL Total Bilirubin (0.2-1.3) mg/dL AST (14-36) IU/L ALT (<35) IU/L Alkaline Phosphatase (38-126) U/L Ammonia (9-30) umol/L Total Creatine Kinase 5086 H D (30-135) U/L CK-MB (CK-2) 17.20 H (<2.37) ng/mL CK-MB (CK-2) Rel Index 0.3 L (1.5-5.0) % Troponin I 0.038 H (0.01-0.034) ng/mL NT-Pro-B Natriuret Pep (<125) pg/mL Total Protein (6.3-8.2) g/dL Albumin (3.5-5.0) g/dL Globulin (1.7-4.1) g/dL Albumin/Globulin Ratio (1.0-2.8) Procalcitonin (<0.5) ng/mL TSH (0.47-4.68) uIU/mL Prolactin (3.0-18.6) ng/mL Urine Color Urine Appearance Urine pH (4.5-8.0) Ur Specific [place] (1.000-1.035) Urine Protein (Negative) Urine Glucose (UA) (Negative) g/dL Urine Ketones (NEGATIVE) Urine Occult Blood (Negative) Urine Nitrate (Negative) Urine Bilirubin (NEGATIVE) Urine Urobilinogen (0.2) E.U./dL Ur Leukocyte Esterase (NEGATIVE) Urine RBC (0-5/HPF) Urine WBC (0-5/HPF) Ur Squamous Epith Cells (0-5/HPF) Urine Bacteria (None) Hyaline Casts (None) Ur Culture Indicated? Salicylates (<20) mg/dL U Opiates 300ng/mL cut (Negative) Ur Oxycodone Screen (Negative) Urine Methadone Screen (Negative) Acetaminophen (10-30) ug/mL Ur Barbiturates Screen (Negative) U Tricyclic Antidepress (Negative) Ur Phencyclidine Scrn (Negative) Ur Amphetamines Screen (Negative) U Methamphetamines Scrn (Negative) Ur MDMA Scrn (Ecstasy) (Negative) U Benzodiazepines Scrn (Negative) Urine Cocaine Screen (Negative) U Marijuana (THC) Screen (Negative) Ethyl Alcohol ( - 10) mg/dL Point of Care Testing Glucose POC 114 ECG Data Attestation: I personally reviewed and interpreted this ECG as follows: Interpretation: Sinus rhythm first-degree AV block rate of 60 4p are 2 time QRS 140 QTC [address] No acute ST changes appreciated. Patient has prior from 06/13/2018 which appears similar. [facility] Narrative Medical decision making narrative: This is a 61-year-old female who presents with complaint of weakness, low blood pressure which he states is not her normal but she does not know exactly what is her normal, and describe tremor although this isn't appreciated in the room. Patient is hypotensive persistently, no fever, she is on home O2 normally continuously. Patient seems sleepy and falls asleep very easily, unknown if polypharmacy could be contributing she is not on any narcotics pupils are not pinpoint but does take some medications such as trazodone although these do not appear to be new. Patient has multiple medical issues and morbid obesity, head CT, chest x-ray, lab work including ABG, EKG and urine to evaluate for potential causes. Spoke with patient's daughter Roxy, she states mom is full code they have talked about this in the past. She is not active DPOA but there is no other current family members involved patient reportedly has some sons in organ but does not have contact. Patient does not have a spouse or significant other currently. Daughter states that she was not touch with her on Monday, usually takes pretty regularly and she has not heard from her since Monday. She states Monday she was up walking around going to the bathroom changing her clothes independently doing quite well. Daughter's #[phone] Patient's ABG shows a pH of 7.3 but pCO2 is 71 PaO2 is 106 bicarb 36, unclear if this is patient's normal baseline so will try BiPAP to see if this improves her mentation she may have some hypercapnic component. I do not have any priors for comparison patient does use a CPAP at home normally and has known O2 dependent COPD normally. Creatinine is 3.11 looks like her baseline is 2.9 to 1.7, BNP is elevated at 5600 CK was 2200 with a trope 0.05 and trending down words 2.038. Patient's CK was trending upwards to 5000. Ammonia is negative, patient initially responsive to verbal stimuli in the became more obtunded only grimacing with sternal rub plan was to intubate but as we removing her tomorrow appropriate location for this, BiPAP but settings were adjusted with rate increased to 25 and inspiratory pressure increased to 16 over n and patient improved her mentation significantly. We would difficulty getting a 3rd ABG ultimately got a VBG which did show some improvement in patient's mentation has improved significantly make me think large amount her symptoms are hypercapnic respiratory failure although she was started on nor epi and blood pressure improved this could be a component as well, patient was covered for potential UTI bacteremia or other source with Zosyn. CT angio does not show clear PE, does show quite a bit of lipomatosis with moderate 4 chamber cardiomegaly with degree of right heart failure, patchy bibasilar atelectasis, hiatal hernia and questionable significant circumferential thickening of the upper thoracic esophagus. Patient's CT abdomen pelvis does not show obstructive change, there is diffuse wall thickening and edema of the gallbladder but could be secondary t o right heart failure or hepatocellular disease. 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 Patient case was discussed with Dr. Rico several times, he discussed with tell recreation leader and saw patient here in the department and patient was accepted for inpatient admission to the ICU. Critical Care Time Critical Care Time Critical Care Time: Yes Total Critical Care Time: 65 Attestation: The high probability of a clinically significant, sudden or life threatening deterioration of the [cardiac, pulm] system(s) required my full and direct attention, intervention and personal management. The aggregate critical care time was [] minutes. This time is in addition to time spent performing reported procedures but includes the following: [x] Data Review and interpretation [x] Patient assessment and monitoring of vital signs [x] Documentation [x] Medication orders and management Discharge Plan Departure Patient Disposition: Admitted As Inpatient Clinical Impression: Acute hypercapnic respiratory failure, Altered mental status, Rhabdomyolysis, Acute on chronic kidney failure Admit Date/Time: 05/25/22 17:24 Admit Provider: Esteban Gillespie
--- NOTE | 2022-05-25 10:20 | DI.CT.S_ITS ---
PROCEDURE: CT HEAD/BRAIN WO CON INDICATIONS: low bp, dizzy, weak TECHNIQUE: Noncontrast 4.5 mm thick angled axial sections acquired from the foramen magnum to the vertex, with coronal and sagittal reformats. For radiation dose reduction, the following was used: automated exposure control, adjustment of mA and/or kV according to patient size. COMPARISON: None. FINDINGS: Image quality: Excellent. CSF spaces: Basal cisterns are patent. No extra-axial fluid collections. The ventricles are symmetric in size and shape. The ventricles are dilated out of proportion to sulcal atrophy. Brain: No intracranial bleeds or masses. There is cerebral volume loss for age, with resultant ventricular and sulcal prominence. There are periventricular and deep white matter chronic small vessel ischemic changes. There is intracranial internal carotid artery atherosclerosis. Skull and face: Benign left frontal scalp calvarial lesion. Calvarium and visualized facial bones appear intact, without suspicious lesions. Sinuses: Visualized sinuses and mastoids are clear. IMPRESSION: Ventriculomegaly. Consider possible normal pressure hydrocephalus. Comment: Consider brain MRI with and without contrast. Dictated by: Hadley Brunner M.D. on 05/25/2022 at 10:53 Approved by: Hadley Brunner M.D. on 05/25/2022 at 11:00
--- NOTE | 2022-05-25 10:20 | DI.RAD.S_ITS ---
PROCEDURE: XR CHEST 1V INDICATIONS: weakness, dizzy, low bp TECHNIQUE: One view of the chest was acquired. COMPARISON: None. FINDINGS: Surgical changes and devices: Increased BMI limits diagnostic information. Lungs and pleura: Suspect left basilar atelectasis versus consolidation. Suspect right basilar atelectasis. No pleural effusions or pneumothorax. Mediastinum: Mediastinal contours appear normal. Suspect cardiomegaly. Bones and chest wall: No suspicious bony lesions. Overlying soft tissues appear unremarkable. IMPRESSION: 1. Suspect cardiomegaly. 2. Suspect left basilar atelectasis versus consolidation. Suspect right basilar atelectasis. Dictated by: Hadley Brunner M.D. on 05/25/2022 at 11:19 Approved by: Hadley Brunner M.D. on 05/25/2022 at 11:21
[2022-05-25 10:38] LABS: Add Manual Diff / Slide Review NO; Basophils Absolute Auto 0 /uL (0-100); Basophils Percent Auto 0.5 % (0-2); Eosinophils Absolute Auto 200 /uL (0-450); Eosinophils Percent Auto 2.5 % (2-4); Hematocrit 33.5 % (36-46); Hemoglobin 10.7 g/dL (12.0-16.0); Lymphocytes Absolute Auto 1700 /uL (1100-4500); Lymphocytes Percent Auto 19.6 % (25-40); Mean Corpuscular HGB Conc 32.1 % (30-36); Mean Corpuscular Hemoglobin 32.2 PG (26-34); Mean Corpuscular Volume 100.3 fL (80-100); Monocytes Absolute Auto 800 /uL (0-900); Monocytes Percent Auto 8.8 % (3-14); Neutrophils Absolute Auto 6000 /uL (1500-7000); Neutrophils Percent Auto 68.6 % (50-75); Platelet Count 183 X10^3/uL (150-400); Red Blood Cell Count 3.34 X10^6/uL (4.0-5.2); Red Cell Distribution Width 19.6 % (11.6-14.8); White Blood Cell Count 8.8 X10^3/uL (4.5-11.0)
[2022-05-25 10:40] LABS: INR 1.1 (0.9-1.3); Prothrombin Time 12.6 SECONDS (10.1-12.7)
[2022-05-25 10:42] LABS: PTT Partial Thromboplastin Tim 31 SECONDS (26-36)
[2022-05-25 10:44] LABS: Alanine Aminotransferase 21 IU/L (<35); Albumin 4.1 g/dL (3.5-5.0); Albumin Globulin Ratio 1.2 (1.0-2.8); Alkaline Phosphatase 49 U/L (38-126); Aspartate Aminotransferase 50 IU/L (14-36); BUN Creatinine Ratio 18.3 (6-22); Bilirubin Total 0.5 mg/dL (0.2-1.3); Blood Urea Nitrogen 57 mg/dL (7-17); Calcium 9.7 mg/dL (8.4-10.2); Carbon Dioxide 37 mmol/L (22-32); Chloride 96 mmol/L (98-107); Estimated Glomerular Filt Rate 17 mL/min (>60); Globulin 3.4 g/dL (1.7-4.1); Glucose 127 mg/dL (80-110); Potassium 4.9 mmol/L (3.4-5.1); Sodium 139 mmol/L (137-145); Total Protein 7.5 g/dL (6.3-8.2)
[2022-05-25 10:45] LABS: Lactate (Lactic Acid) 1.1 mmol/L (0.7-2.1)
[2022-05-25 10:52] LABS: Creatine Kinase 2243 U/L (30-135)
[2022-05-25 10:53] LABS: NT-proBNP (BNP-Adult 18+) 5690 pg/mL (<125)
[2022-05-25 10:55] LABS: Troponin I 0.052 ng/mL (0.01-0.034)
[2022-05-25 11:14] LABS: Thyroid Stimulating Hormone 3.19 uIU/mL (0.47-4.68)
[2022-05-25 11:17] LABS: Acetaminophen < 10 ug/mL (10-30); Ammonia (NH3) < 9 umol/L (9-30); Ethanol (ETOH) < 10 mg/dL; Salicylate < 1.0 mg/dL (<20)
[2022-05-25] MEDS: SODIUM CHLORIDE 0.9% 1,000 ML 1000 ML IV (11:30)
--- NOTE | 2022-05-25 11:53 | RT ---
pt placed on bipap without incident, no distress noted. Pt very sleepy, ramone well.
[2022-05-25 12:02] LABS: HCO3 ABG 36 mmol/L (23-27); PCO2 ABG 71.9 mmHg (35-45); PO2 ABG 106 mmHg (80-100); pH ABG 7.31 (7.35-7.45)
[2022-05-25 12:03] LABS: Oxygen Saturation ABG 97 % (95-100); TCO2 ABG 38 mmol/L (23-27)
[2022-05-25 12:04] LABS: Fractionated Inspired Oxygen 32
[2022-05-25 12:25] LABS: Appearance Urine UA CLEAR; Bilirubin Urine UA NEGATIVE (NEGATIVE); Color Urine UA YELLOW; Glucose Urine UA TRACE g/dL (Negative); Ketones Urine UA NEGATIVE (NEGATIVE); Leukocyte Esterase Urine UA 1+ (NEGATIVE); Nitrite Urine UA NEGATIVE (Negative); Occult Blood Urine UA 2+ (Negative); Protein Urine UA 1+ (Negative); Urobilinogen Urine UA 0.2 E.U./dL (0.2)
[2022-05-25 12:27] LABS: CKMB % Relative Index 0.6 % (1.5-5.0); HEMOLYSIS 15 (0-50)
[2022-05-25] MEDS: NALOXONE 0.4 MG/ML VIAL 0.2 MG IV ×2 (12:27→12:35)
[2022-05-25 12:28] LABS: UR Morphine/Opiate cutoff 300 Negative (Negative); Ur Creatinine Normal (Normal); Ur Specific Gravity Normal (Normal); Urine Amphetamines Negative (Negative); Urine Barbiturates Negative (Negative); Urine Benzodiazepines Negative (Negative); Urine Cocaine Negative (Negative); Urine MDMA Negative (Negative); Urine Methadone Negative (Negative); Urine Methamphetamines Negative (Negative); Urine Oxycodone Negative (Negative); Urine Phencyclidine Negative (Negative); Urine Tetrahydrocannabinol Negative (Negative); Urine Tricyclic Antidepressant Negative (Negative); Urine pH Normal (Normal)
[2022-05-25 12:31] LABS: Bacteria Urine None Seen; Culture Indicated Urine Specimen Cultured; Hyaline Casts Urine 1-5/LPF; RBC Urine 5-10/HPF (0-5/HPF); Squamous Epithelial Cell Urine 1-5 /HPF (0-5/HPF); WBC Urine 10-30/HPF (0-5/HPF)
--- NOTE | 2022-05-25 12:36 | PC.NURSE ---
Pt placed on bipap at approx 1150 per physician order. Pt requires pain stimulus to open her eyes, physician aware. Pt given two 0.2 mg doses of Narcan, did not improve responsiveness. Physician advised. DANYA RN to place multi lumen line.
[2022-05-25] MEDS: NOREPINEPHRINE BITARTRATE/D5W 4 MG/250 ML PLAST..BAG 30 MG IV (12:58)
[2022-05-25] MEDS: PIPERACILLIN/TAZO 4.5 GM in SODIUM CHLORIDE 0.9% 100 ML IV (13:05)
--- NOTE | 2022-05-25 13:19 | PC.NURSE ---
DI RN at bedside placing multi lumen for access. Pt remains responsive to pain. Norepi 8mcg/min @ 30 ml/hr started approx 1300, BP improved to 115/86 HR 56.
--- NOTE | 2022-05-25 13:24 | DI.CT.S_ITS ---
PROCEDURE: CT ABDOMEN PELVIS W CON INDICATIONS: renal failure, altered mental status TECHNIQUE: After the administration of intravenous contrast, axial sections acquired from the lung bases to the pubic symphysis. Coronal and sagittal reformats were performed. For radiation dose reduction, the following was used: automated exposure control, adjustment of mA and/or kV according to patient size. COMPARISON: [facility], CT, CT ANGIO CHEST PE PROTOCOL, 05/25/2022, 14:22. FINDINGS: Image quality: Excellent. Lung bases: Unremarkable. Heart: Four-chamber cardiomegaly. Reflux into the hepatic veins seen on the CT angiogram portion of the study is consistent with a degree of right heart failure. ABDOMEN: Liver: Unremarkable. Gallbladder: Marked diffuse gallbladder wall thickening is suspicious for acute cholecystitis. However, this can be seen in right heart failure and hepatocellular dysfunction. Biliary ducts: Unremarkable. Pancreas: Unremarkable. Spleen: Unremarkable. Adrenal Glands: Unremarkable. Kidneys and Ureters: Unremarkable. Stomach and Bowel: Hiatal hernia. Stomach, small bowel loops, and colon are unremarkable. Peritoneum: No abnormal intraperitoneal fluid. No free air. Ventral Wall: No hernias. Abdominal Nodes: No retroperitoneal or mesenteric adenopathy by size criteria. Vessels: Aorta and inferior vena cava are normal in size. PELVIS: Pelvic Organs: Unremarkable. Bladder: Decompressed by a Babcock catheter.. Pelvic Nodes: No enlarged lymph nodes. Miscellaneous: No hernias are seen. Bones: Lumbar degenerative change. No lytic or blastic bony lesions. No compression fractures. IMPRESSION: 1. Four-chamber cardiomegaly. 2. There is a degree of right heart failure. 3. Marked diffuse wall thickening and edema of the gallbladder. This may indicate acute cholecystitis. However, it may be secondary to right heart failure or hepatocellular disease. Comment: Consider gallbladder ultrasound. Dictated by: Hadley Brunner M.D. on 05/25/2022 at 15:54 Approved by: Hadley Brunner M.D. on 05/25/2022 at 15:57
--- NOTE | 2022-05-25 13:24 | DI.CT.S_ITS ---
PROCEDURE: CT ANGIO CHEST PE PROTOCOL INDICATIONS: altered mental status TECHNIQUE: After the administration of intravenous contrast, 2 mm thick sections acquired from the pulmonary apices to the posterior costophrenic angles. 3-dimensional maximum intensity projection (MIP) coronal and sagittal reformats were then acquired through the thorax. For radiation dose reduction, the following was used: automated exposure control, adjustment of mA and/or kV according to patient size. COMPARISON: [facility], CR, XR CHEST 1V, 05/25/2022, 10:33. [facility], CT, CT ABDOMEN PELVIS W CON, 05/25/2022, 14:22. FINDINGS: Image quality: Excellent. Pulmonary arteries: Pulmonary arteries are normal in size, and demonstrate no intraluminal filling defects to suggest central pulmonary embolism. Lungs and pleura: Minimal bibasilar atelectasis. No pleural effusions or pneumothorax. Central and peripheral airways are patent. Mediastinum: Incidental note is made of the presence of mediastinal lipomatosis, which exaggerates the heart size and superior mediastinal size on chest films. Moderate four-chamber cardiomegaly. No pericardial effusion. Reflux of contrast into the hepatic veins is consistent with a degree of right heart failure. No mediastinal or hilar adenopathy. Thoracic aorta is normal in caliber and enhancement. There is a stomach containing hiatal hernia. However, there is a question of significant diffuse esophageal thickening at the level of the arch aorta. Reference image 32/4. There is debris present in the esophagus. Bones and chest wall: No suspicious bony lesions. Ribs and thoracic spine appear intact throughout. Thyroid gland is grossly unremarkable as visualized.. No axillary or supraclavicular adenopathy. Abdomen: Visualized upper abdominal solid organs appear normal in the early arterial phase of enhancement. IMPRESSION: 1. No acute pulmonary emboli are identified. 2. There is moderate four-chamber cardiomegaly with a degree of right heart failure noted. 3. The presence of impressive mediastinal lipomatosis will exaggerate the heart size on chest films and will give the impression of significant superior mediastinal widening. 3. Patchy bibasilar atelectasis. 4. Hiatal hernia. 5. Question significant circumferential thickening of the upper thoracic esophagus. Consider upper endoscopy when the patient is clinically stable. Dictated by: Hadley Brunner M.D. on 05/25/2022 at 15:06 Approved by: Hadley Brunner M.D. on 05/25/2022 at 15:15
--- NOTE | 2022-05-25 13:30 | DI.RAD.S_ITS ---
PROCEDURE: XR CHEST FOR PICC 1V INDICATIONS: line placement TECHNIQUE: One view of the chest was acquired. COMPARISON: [facility], , XR CHEST 1V, 05/25/2022, 10:33. FINDINGS: Surgical changes and devices: There is a right PICC with the tip projecting to the area of SVC. Lungs and pleura: Moderate left pleural effusion. Left basilar consolidation or atelectasis. No pneumothorax. Mediastinum: Mediastinal contours appear normal. Heart size is moderately increased. Bones and chest wall: No suspicious bony lesions. Overlying soft tissues appear unremarkable. IMPRESSION: Right PICC in expected position. Dictated by: Cate Gooden M.D. on 05/25/2022 at 14:22 Approved by: Cate Gooden M.D. on 05/25/2022 at 14:23
[2022-05-25 14:17] LABS: PCO2 ABG 69.7 mmHg (35-45); PO2 ABG 78 mmHg (80-100); pH ABG 7.29 (7.35-7.45)
[2022-05-25 14:18] LABS: Fractionated Inspired Oxygen 30; HCO3 ABG 33 mmol/L (23-27); Oxygen Saturation ABG 93 % (95-100); TCO2 ABG 35 mmol/L (23-27)
[2022-05-25] MEDS: LACTATED RINGERS 1,000 ML 1000 ML IV (15:10)
[2022-05-25 15:54] LABS: BUN Creatinine Ratio 17.2 (6-22); Blood Urea Nitrogen 53 mg/dL (7-17); Calcium 9.1 mg/dL (8.4-10.2); Carbon Dioxide 34 mmol/L (22-32); Chloride 98 mmol/L (98-107); Estimated Glomerular Filt Rate 17 mL/min (>60); Glucose 115 mg/dL (80-110); HEMOLYSIS < 15 (0-50); Lactate (Lactic Acid) 1.2 mmol/L (0.7-2.1); Potassium 4.9 mmol/L (3.4-5.1); Sodium 138 mmol/L (137-145)
[2022-05-25 16:06] LABS: Troponin I 0.038 ng/mL (0.01-0.034)
[2022-05-25 16:10] LABS: Creatine Kinase 5086 U/L (30-135)
[2022-05-25 16:28] LABS: CKMB % Relative Index 0.3 % (1.5-5.0)
--- NOTE | 2022-05-25 16:32 | PC.NURSE ---
Titrating NorEpi dose down based on stable BP reading every 60 to 90 minutes. Initial dose 8mcg/min @ 30mls/hr, lowered to 7mcg/min @ 1622, currently running at 6mcg/min @ 22.5mls/hr. Current BP 126/85 HR 57, on BiPap. Will continue to monitor.
[2022-05-25 17:46] LABS: HCO3 VBG 33 mmol/L (24-28); Oxygen Saturation VBG 47 % (70-75); PCO2 VBG 64.1 mmHg (45-50); PO2 VBG 29 mmHg (35-45); Total CO2 VBG 35 mmol/L (24-29); pH VBG 7.32 (7.33-7.43)
[2022-05-25 17:47] LABS: Fractionated Inspired Oxygen 30
[2022-05-25] MEDS: LACTATED RINGERS 1,000 ML 125 ML IV (17:50)
--- NOTE | 2022-05-25 18:18 | PM.HP.1 ---
History of Present Illness History of Present Illness Date Patient Seen: 05/25/22 Time Patient Seen: 17:30 Chief complaint: Weakness,hypotensive,dizzy Narrative: This is a 61 year old female with PMH of HTN, obesity, DM2, COPD on 2L home O2, HLD, PONCE, CHF (combined systolic and diastolic), thyroiditis who was sent from [facility] for hypotension and uncontrolled tremors since midnight according to docutmentation. She was initially lethargic and confused in the emergency room, she was markedly hypercarbic and placed on BiPAP. She did not improve initially but her rate was increased and her PEEP was increased was well with subsequent improvement in mentation. She was unable to provide much more history during evaluation in the ER on BiPAP, but denied current chest pain, palpitations, abdominal pain. She did feel weak and short of breath. She would like to be full code based on brief discussions as patient became slightly more alert which was consistent with what ER provider obtained from her daughter and PCP at assisted living facility. She denies any pain in her extremities, no recent fever or chills. Home medications per outside facility: 30 mg torsemide in the AM Carvedilol 3.125 mg BID Trazodone 50 mg at bedtime fenofibrate 160 mg AM Levothyroxine 200 mcg AM Glargine insulin 22U BID Gabapentin 300 mg Bedtime Meclizine 25 mg prn dizziness Humalog 4 U TID AC buproprion ER, 150 mg bedtime Lidocaine patch 5% Senna 17.2 mg BID spiriva 18 mcg AM iron tab daily loratadine 10 mg AM Montelukast 10 mg Fluoxetine 20 mg AM Asa 81 mg daily Rosuvastatin 40 mg PM budesonide formoterol 160-4.5 2 puff prn for COPD albuterol HFA 4 puff q4 prn Initial imaging in the emergency department showed bilateral atelectasis with a possible left lower lobe consolidation, CT angiogram was negative for PE and showed bibasilar atelectasis. CT of her head without contrast showed no acute hemorrhage but did show ventriculomegaly. Patient History Medical History (Updated 05/25/22 @ 19:18 by Jayne Muhammad DO) Chronic hypoxemic respiratory failure COPD (chronic obstructive pulmonary disease) DM2 (diabetes mellitus, type 2) HTN (hypertension) Obesity PONCE (obstructive sleep apnea) Systolic and diastolic CHF, chronic Thyroiditis Surgical History (Updated 05/25/22 @ 18:30 by Esteban Gillespie DO) S/P hernia surgery Family & Social History Family History (Updated 05/25/22 @ 18:31 by Esteban Gillespie DO) Mother No pertinent past medical history Father No pertinent past medical history Safety & Behavioral: Feels Safe in Current Yes Environment Been Physically Hurt or No Threatened By a Person Tobacco & Substance use: alcohol intake frequency other Substance Use Type does not use Meds Home Medications and Allergies Home Medications Medication Instructions Recorded Confirmed Type acetaminophen 325 mg tablet 650 mg PO TID 05/25/22 05/25/22 History (Tylenol) albuterol sulfate 90 mcg/actuation 4 puff inhalation Q4H PRN Wheezing 05/25/22 05/25/22 History aerosol inhaler aspirin 81 mg tablet,delayed 81 mg PO DAILY 05/25/22 05/25/22 History release budesonide-formoterol HFA 160 2 puff inhalation Q4H PRN Wheezing 05/25/22 05/25/22 History mcg-4.5 mcg/actuation aerosol inhaler bupropion HCl 150 mg tablet,12 hr 150 mg PO BEDTIME 05/25/22 05/25/22 History sustained-release carvedilol 3.125 mg tablet 3.125 mg PO BID 05/25/22 05/25/22 History cyanocobalamin (vitamin B-12) 500 500 mcg PO DAILY 05/25/22 05/25/22 History mcg tablet fenofibrate 160 mg tablet 160 mg PO DAILY 05/25/22 05/25/22 History ferrous sulfate 325 mg (65 mg 325 mg PO DAILY 05/25/22 05/25/22 History iron) tablet fluoxetine 20 mg tablet 20 mg PO DAILY 05/25/22 05/25/22 History fluticasone propionate 50 2 spray intranasal DAILY 05/25/22 05/25/22 History mcg/actuation nasal spray,suspension gabapentin 300 mg capsule 300 mg PO BEDTIME 05/25/22 05/25/22 History insulin glargine 100 unit/mL (3 22 unit SUBCUT BID 05/25/22 05/25/22 History mL) subcutaneous pen insulin lispro 100 unit/mL 4 unit SUBCUT TIDWM 05/25/22 05/25/22 History subcutaneous solution (Humalog U-100 Insulin) levothyroxine 200 mcg tablet 200 mcg PO DAILY 05/25/22 05/25/22 History lidocaine 5 % topical patch 1 patch topical DAILY 05/25/22 05/25/22 History loratadine 10 mg tablet 10 mg PO DAILY 05/25/22 05/25/22 History magnesium hydroxide 400 mg/5 mL 15 ml PO Q24H PRN Constipation 05/25/22 05/25/22 History oral suspension (Milk of Magnesia) magnesium oxide 200 mg PO BID 05/25/22 05/25/22 History meclizine 25 mg tablet 25 mg PO Q8HR PRN Dizziness 05/25/22 05/25/22 History montelukast 10 mg tablet 10 mg PO DAILY 05/25/22 05/25/22 History nystatin 100,000 unit/gram topical 1 applic topical BID PRN Rash 05/25/22 05/25/22 History powder ondansetron 4 mg disintegrating 4 mg PO Q8H PRN Nausea 05/25/22 05/25/22 History tablet rosuvastatin 40 mg tablet 40 mg PO DAILY 05/25/22 05/25/22 History sennosides 8.6 mg tablet (senna) 17.2 mg PO BEDTIME 05/25/22 05/25/22 History tiotropium bromide 18 mcg capsule 1 cap inhalation DAILY 05/25/22 05/25/22 History with inhalation device (Spiriva with HandiHaler) torsemide 10 mg tablet 30 mg PO DAILY 05/25/22 05/25/22 History trazodone 50 mg tablet 50 mg PO BEDTIME 05/25/22 05/25/22 History Allergies Allergy/AdvReac Type Severity Reaction Status Date / Time No Known Drug Allergies Allergy Verified 05/25/22 12:43 Review of Systems Review of Systems Narrative: All other systems reviewed with the patient and are negative unless otherwise stated. Exam Vital Signs (past 8 hours): - 05/25/22 11:35 05/25/22 10:20 05/25/22 10:20 Pulse Rate 63 Respiratory Rate 23 Blood Pressure 93/56 L Pulse Oximetry 93 Oxygen Delivery Method Fraction of Inspired Oxygen 30 05/25/22 10:25 05/25/22 10:25 05/25/22 10:49 Pulse Rate 64 63 Respiratory Rate 21 21 Blood Pressure 92/55 L Pulse Oximetry 91 93 Oxygen Delivery Method Fraction of Inspired Oxygen 05/25/22 11:00 05/25/22 11:15 05/25/22 11:30 Pulse Rate 63 62 62 Respiratory Rate 22 25 H 23 Blood Pressure Pulse Oximetry 97 98 95 Oxygen Delivery Method Fraction of Inspired Oxygen 05/25/22 11:45 05/25/22 12:00 05/25/22 12:15 Pulse Rate 60 61 54 L Respiratory Rate 25 H 27 H 26 H Blood Pressure Pulse Oximetry 92 93 Oxygen Delivery Method Fraction of Inspired Oxygen 05/25/22 12:22 05/25/22 12:22 05/25/22 12:25 Pulse Rate 52 L Respiratory Rate 24 Blood Pressure 87/51 L 80/52 L Pulse Oximetry 91 Oxygen Delivery Method Fraction of Inspired Oxygen 05/25/22 12:25 05/25/22 12:53 05/25/22 12:30 Pulse Rate 52 L Respiratory Rate 24 Blood Pressure 91/61 82/52 L Pulse Oximetry 91 Oxygen Delivery Method Fraction of Inspired Oxygen 05/25/22 12:30 05/25/22 12:33 05/25/22 12:33 Pulse Rate 51 L 52 L Respiratory Rate 24 21 Blood Pressure 87/49 L Pulse Oximetry 91 93 Oxygen Delivery Method Fraction of Inspired Oxygen 05/25/22 12:35 05/25/22 12:35 05/25/22 12:40 Pulse Rate 52 L Respiratory Rate 21 Blood Pressure 85/48 L 84/51 L Pulse Oximetry 92 Oxygen Delivery Method Fraction of Inspired Oxygen 05/25/22 12:40 05/25/22 12:45 05/25/22 12:45 Pulse Rate 51 L 51 L Respiratory Rate 21 22 Blood Pressure 83/52 L Pulse Oximetry 92 92 Oxygen Delivery Method Fraction of Inspired Oxygen 05/25/22 12:50 05/25/22 12:52 05/25/22 12:52 Pulse Rate 52 L 53 L Respiratory Rate 22 22 Blood Pressure 91/61 Pulse Oximetry 93 93 Oxygen Delivery Method BiPAP BiPAP Fraction of Inspired Oxygen 05/25/22 12:55 05/25/22 12:55 05/25/22 13:00 Pulse Rate 54 L Respiratory Rate 24 Blood Pressure 91/59 L 89/63 L Pulse Oximetry 93 Oxygen Delivery Method BiPAP Fraction of Inspired Oxygen 05/25/22 13:00 05/25/22 13:05 05/25/22 13:05 Pulse Rate 54 L 52 L Respiratory Rate 20 20 Blood Pressure 98/71 Pulse Oximetry 93 95 Oxygen Delivery Method BiPAP Fraction of Inspired Oxygen 05/25/22 13:10 05/25/22 13:10 05/25/22 13:15 Pulse Rate 62 Respiratory Rate 20 Blood Pressure 106/85 115/86 Pulse Oximetry 97 Oxygen Delivery Method BiPAP Fraction of Inspired Oxygen 05/25/22 13:15 05/25/22 13:20 05/25/22 13:20 Pulse Rate 56 L 56 L Respiratory Rate 21 21 Blood Pressure 119/83 Pulse Oximetry 97 97 Oxygen Delivery Method BiPAP Fraction of Inspired Oxygen 05/25/22 13:25 05/25/22 13:25 05/25/22 13:30 Pulse Rate 55 L Respiratory Rate 21 Blood Pressure 119/84 117/86 Pulse Oximetry 96 Oxygen Delivery Method Fraction of Inspired Oxygen 05/25/22 13:30 05/25/22 13:35 05/25/22 13:35 Pulse Rate 57 L 58 L Respiratory Rate 21 21 Blood Pressure 120/87 Pulse Oximetry 96 96 Oxygen Delivery Method Fraction of Inspired Oxygen 05/25/22 13:40 05/25/22 13:40 05/25/22 13:45 Pulse Rate 58 L Respiratory Rate 21 Blood Pressure 123/85 122/85 Pulse Oximetry 98 Oxygen Delivery Method Fraction of Inspired Oxygen 05/25/22 13:45 05/25/22 13:50 05/25/22 13:50 Pulse Rate 59 L 58 L Respiratory Rate 21 25 H Blood Pressure 127/87 Pulse Oximetry 97 99 Oxygen Delivery Method Fraction of Inspired Oxygen 05/25/22 13:55 05/25/22 13:55 05/25/22 13:55 Pulse Rate 58 L Respiratory Rate 25 H Blood Pressure 125/91 H 125/91 H Pulse Oximetry 98 Oxygen Delivery Method Fraction of Inspired Oxygen 05/25/22 14:00 05/25/22 14:00 05/25/22 14:00 Pulse Rate 62 Respiratory Rate 26 H Blood Pressure 127/92 H 127/92 H Pulse Oximetry 98 Oxygen Delivery Method Fraction of Inspired Oxygen 05/25/22 14:05 05/25/22 14:07 05/25/22 14:07 Pulse Rate 62 64 Respiratory Rate 25 H 25 H Blood Pressure 150/85 H Pulse Oximetry 98 96 Oxygen Delivery Method Fraction of Inspired Oxygen 05/25/22 14:10 05/25/22 14:11 05/25/22 14:11 Pulse Rate 61 60 Respiratory Rate 25 H 25 H Blood Pressure 123/83 Pulse Oximetry 95 96 Oxygen Delivery Method Fraction of Inspired Oxygen 05/25/22 14:15 05/25/22 14:15 05/25/22 14:20 Pulse Rate 59 L Respiratory Rate 21 Blood Pressure 135/90 137/88 Pulse Oximetry 97 Oxygen Delivery Method Fraction of Inspired Oxygen 05/25/22 14:20 05/25/22 14:25 05/25/22 14:25 Pulse Rate 60 60 Respiratory Rate 21 21 Blood Pressure 130/88 Pulse Oximetry 97 97 Oxygen Delivery Method Fraction of Inspired Oxygen 05/25/22 14:30 05/25/22 14:30 05/25/22 14:33 Pulse Rate 59 L Respiratory Rate 20 Blood Pressure 130/89 135/81 Pulse Oximetry 97 Oxygen Delivery Method Fraction of Inspired Oxygen 05/25/22 14:33 05/25/22 14:35 05/25/22 14:35 Pulse Rate 60 61 Respiratory Rate 20 21 Blood Pressure 129/97 H Pulse Oximetry 97 97 Oxygen Delivery Method Fraction of Inspired Oxygen 05/25/22 14:40 05/25/22 14:40 05/25/22 14:45 Pulse Rate 64 Respiratory Rate 20 Blood Pressure 114/85 123/86 Pulse Oximetry 96 Oxygen Delivery Method Fraction of Inspired Oxygen 05/25/22 14:45 05/25/22 14:47 05/25/22 14:47 Pulse Rate 64 62 Respiratory Rate 21 20 Blood Pressure 133/86 Pulse Oximetry 98 98 Oxygen Delivery Method Fraction of Inspired Oxygen 05/25/22 14:50 05/25/22 14:50 05/25/22 14:55 Pulse Rate 59 L Respiratory Rate 21 Blood Pressure 134/88 133/91 H Pulse Oximetry 97 Oxygen Delivery Method Fraction of Inspired Oxygen 05/25/22 14:55 05/25/22 15:00 05/25/22 15:00 Pulse Rate 59 L 59 L Respiratory Rate 20 21 Blood Pressure 131/90 Pulse Oximetry 96 95 Oxygen Delivery Method BiPAP Fraction of Inspired Oxygen 05/25/22 15:05 05/25/22 15:10 05/25/22 15:10 Pulse Rate 58 L 58 L Respiratory Rate 21 25 H Blood Pressure 131/83 Pulse Oximetry 95 95 Oxygen Delivery Method BiPAP Fraction of Inspired Oxygen 05/25/22 15:15 05/25/22 15:20 05/25/22 15:25 Pulse Rate 61 61 60 Respiratory Rate 24 23 25 H Blood Pressure 130/82 Pulse Oximetry 95 94 95 Oxygen Delivery Method Fraction of Inspired Oxygen 05/25/22 15:30 05/25/22 15:35 05/25/22 15:40 Pulse Rate 59 L 59 L 60 Respiratory Rate 24 25 H 25 H Blood Pressure Pulse Oximetry 96 96 96 Oxygen Delivery Method Fraction of Inspired Oxygen 05/25/22 15:45 05/25/22 15:50 05/25/22 15:55 Pulse Rate 59 L 59 L 58 L Respiratory Rate 24 25 H 25 H Blood Pressure Pulse Oximetry 95 96 96 Oxygen Delivery Method Fraction of Inspired Oxygen 05/25/22 16:00 05/25/22 16:05 05/25/22 16:10 Pulse Rate 58 L 56 L 55 L Respiratory Rate 25 H 25 H 25 H Blood Pressure 128/86 Pulse Oximetry 96 96 96 Oxygen Delivery Method Fraction of Inspired Oxygen 05/25/22 16:15 05/25/22 16:20 05/25/22 16:25 Pulse Rate 55 L 55 L 60 Respiratory Rate 25 H 25 H 25 H Blood Pressure Pulse Oximetry 96 96 94 Oxygen Delivery Method BiPAP Fraction of Inspired Oxygen 05/25/22 16:28 05/25/22 16:29 05/25/22 17:00 Pulse Rate 60 Respiratory Rate 25 H Blood Pressure 126/84 112/70 Pulse Oximetry 95 Oxygen Delivery Method Fraction of Inspired Oxygen 30 05/25/22 16:29 05/25/22 16:30 05/25/22 16:30 Pulse Rate 60 59 L Respiratory Rate 25 H 25 H Blood Pressure 128/83 Pulse Oximetry 96 95 Oxygen Delivery Method Fraction of Inspired Oxygen 05/25/22 16:35 05/25/22 16:35 05/25/22 16:40 Pulse Rate 57 L Respiratory Rate 25 H Blood Pressure 126/85 126/84 Pulse Oximetry 95 Oxygen Delivery Method Fraction of Inspired Oxygen 05/25/22 16:40 05/25/22 16:45 05/25/22 16:45 Pulse Rate 58 L 60 Respiratory Rate 25 H 26 H Blood Pressure 118/73 Pulse Oximetry 96 95 Oxygen Delivery Method Fraction of Inspired Oxygen 05/25/22 16:50 05/25/22 16:50 05/25/22 16:55 Pulse Rate 58 L Respiratory Rate 25 H Blood Pressure 124/79 121/77 Pulse Oximetry 94 Oxygen Delivery Method Fraction of Inspired Oxygen 05/25/22 16:55 05/25/22 17:00 05/25/22 17:00 Pulse Rate 60 59 L Respiratory Rate 25 H 25 H Blood Pressure 119/78 Pulse Oximetry 95 97 Oxygen Delivery Method BiPAP Fraction of Inspired Oxygen 05/25/22 17:05 05/25/22 17:05 05/25/22 17:10 Pulse Rate 57 L Respiratory Rate 25 H Blood Pressure 120/81 122/81 Pulse Oximetry 99 Oxygen Delivery Method Fraction of Inspired Oxygen 05/25/22 17:10 05/25/22 17:15 05/25/22 17:15 Pulse Rate 60 59 L Respiratory Rate 25 H 22 Blood Pressure 123/83 Pulse Oximetry 96 95 Oxygen Delivery Method Fraction of Inspired Oxygen 05/25/22 17:20 05/25/22 17:20 05/25/22 17:25 Pulse Rate 58 L Respiratory Rate 24 Blood Pressure 122/76 112/70 Pulse Oximetry 96 Oxygen Delivery Method Fraction of Inspired Oxygen 05/25/22 17:25 05/25/22 17:30 05/25/22 17:30 Pulse Rate 75 59 L Respiratory Rate 25 H 26 H Blood Pressure 120/78 Pulse Oximetry 96 95 Oxygen Delivery Method Fraction of Inspired Oxygen 05/25/22 17:35 05/25/22 17:35 05/25/22 17:40 Pulse Rate 58 L Respiratory Rate 25 H Blood Pressure 121/81 125/84 Pulse Oximetry 95 Oxygen Delivery Method Fraction of Inspired Oxygen 05/25/22 17:40 05/25/22 17:45 05/25/22 17:45 Pulse Rate 57 L 57 L Respiratory Rate 25 H 26 H Blood Pressure 124/83 Pulse Oximetry 97 97 Oxygen Delivery Method Fraction of Inspired Oxygen 05/25/22 17:50 05/25/22 17:50 05/25/22 17:55 Pulse Rate 57 L Respiratory Rate 26 H Blood Pressure 123/77 123/83 Pulse Oximetry 97 Oxygen Delivery Method Fraction of Inspired Oxygen 05/25/22 17:55 05/25/22 18:00 05/25/22 18:00 Pulse Rate 90 59 L Respiratory Rate 24 26 H Blood Pressure 114/73 Pulse Oximetry 95 95 Oxygen Delivery Method Fraction of Inspired Oxygen 05/25/22 18:04 05/25/22 18:05 Pulse Rate 64 Respiratory Rate 45 H Blood Pressure 113/72 Pulse Oximetry 95 Oxygen Delivery Method Fraction of Inspired Oxygen Fraction of Inspired Oxygen 30 Oxygen Delivery Method BiPAP Oxygen Flow Rate 2 Narrative Exam Narrative: General:?Obese female, acutely ill appearing, lethargic on bipap but improving quickly HEENT:? Normocephalic, atraumatic, extraocular muscles intact, oral pharynx is clear and mucous membranes are moist. Neck: supple and symmetric, trachea is midline, no cervical adenopathy. + JVD Chest:? Normal AP diameter and contour without kyphoscoliosis, no tachypnea, equal chest rise bilaterally. Lungs:? Bibasilar crackles Cardio:?RRR no m/r/g. Abdomen: S NT ND. Musculoskeletal:? Muscle strength and tone are equal within normal limits, no deformity. Extremities: 2-3 + peripheral edema with chronic venous stasis changes, no erythema or warmth. No joint effusions. Compartments are soft. Skin:? Pale,? Warm to touch,dry and intact without rashes, ulcerations or petechiae.? Neuro:? Alert and orientated to self and hospital,?sensation to touch intact in all extremities, no gross deficits noted of cranial nerves. Objective ECG Impression: Sinus rhythm with 1st degree AV block Left axis deviation Nonspecific intraventricular block Labs 05/25/22 09:00 05/25/22 15:34 Labs: Laboratory Results - last 24 hr 05/25/22 05/25/22 05/25/22 09:00 09:00 09:00 WBC 8.8 RBC 3.34 L Hgb 10.7 L Hct 33.5 L MCV 100.3 H D MCH 32.2 MCHC 32.1 RDW 19.6 H Plt Count 183 Neut % (Auto) 68.6 Lymph % (Auto) 19.6 L [place] % (Auto) 8.8 Eos % (Auto) 2.5 Baso % (Auto) 0.5 Neut # (Auto) 6000 Lymph # (Auto) 1700 [place] # (Auto) 800 Eos # (Auto) 200 Baso # (Auto) 0 PT 12.6 INR 1.1 APTT 31 ABG pH ABG pCO2 ABG pO2 ABG HCO3 ABG Total CO2 ABG O2 Saturation ABG Base Excess VBG pH VBG pCO2 VBG pO2 VBG HCO3 VBG Total CO2 VBG O2 Saturation VBG Base Excess FiO2 Sodium 139 Potassium 4.9 Chloride 96 L Carbon Dioxide 37 H BUN 57 H Creatinine 3.11 H Estimated GFR 17 L BUN/Creatinine Ratio 18.3 Glucose 127 H Lactate Calcium 9.7 Total Bilirubin 0.5 AST 50 H ALT 21 Alkaline Phosphatase 49 Ammonia Total Creatine Kinase 2243 H CK-MB (CK-2) 12.70 H CK-MB (CK-2) Rel Index 0.6 L Troponin I 0.052 H NT-Pro-B Natriuret Pep Total Protein 7.5 Albumin 4.1 Globulin 3.4 Albumin/Globulin Ratio 1.2 Procalcitonin 0.20 TSH Prolactin Urine Color Urine Appearance Urine pH Ur Specific [place] Urine Protein Urine Glucose (UA) Urine Ketones Urine Occult Blood Urine Nitrate Urine Bilirubin Urine Urobilinogen Ur Leukocyte Esterase Urine RBC Urine WBC Ur Squamous Epith Cells Urine Bacteria Hyaline Casts Ur Culture Indicated? Salicylates U Opiates 300ng/mL cut Ur Oxycodone Screen Urine Methadone Screen Acetaminophen Ur Barbiturates Screen U Tricyclic Antidepress Ur Phencyclidine Scrn Ur Amphetamines Screen U Methamphetamines Scrn Ur MDMA Scrn (Ecstasy) U Benzodiazepines Scrn Urine Cocaine Screen U Marijuana (THC) Screen Ethyl Alcohol 05/25/22 05/25/22 05/25/22 09:00 09:00 09:00 WBC RBC Hgb Hct MCV MCH MCHC RDW Plt Count Neut % (Auto) Lymph % (Auto) [place] % (Auto) Eos % (Auto) Baso % (Auto) Neut # (Auto) Lymph # (Auto) [place] # (Auto) Eos # (Auto) Baso # (Auto) PT INR APTT ABG pH ABG pCO2 ABG pO2 ABG HCO3 ABG Total CO2 ABG O2 Saturation ABG Base Excess VBG pH VBG pCO2 VBG pO2 VBG HCO3 VBG Total CO2 VBG O2 Saturation VBG Base Excess FiO2 Sodium Potassium Chloride Carbon Dioxide BUN Creatinine Estimated GFR BUN/Creatinine Ratio Glucose Lactate 1.1 Calcium Total Bilirubin AST ALT Alkaline Phosphatase Ammonia Total Creatine Kinase CK-MB (CK-2) CK-MB (CK-2) Rel Index Troponin I NT-Pro-B Natriuret Pep 5690 H Total Protein Albumin Globulin Albumin/Globulin Ratio Procalcitonin TSH 3.19 Prolactin Urine Color Urine Appearance Urine pH Ur Specific [place] Urine Protein Urine Glucose (UA) Urine Ketones Urine Occult Blood Urine Nitrate Urine Bilirubin Urine Urobilinogen Ur Leukocyte Esterase Urine RBC Urine WBC Ur Squamous Epith Cells Urine Bacteria Hyaline Casts Ur Culture Indicated? Salicylates U Opiates 300ng/mL cut Ur Oxycodone Screen Urine Methadone Screen Acetaminophen Ur Barbiturates Screen U Tricyclic Antidepress Ur Phencyclidine Scrn Ur Amphetamines Screen U Methamphetamines Scrn Ur MDMA Scrn (Ecstasy) U Benzodiazepines Scrn Urine Cocaine Screen U Marijuana (THC) Screen Ethyl Alcohol 05/25/22 05/25/22 05/25/22 10:53 10:53 11:10 WBC RBC Hgb Hct MCV MCH MCHC RDW Plt Count Neut % (Auto) Lymph % (Auto) [place] % (Auto) Eos % (Auto) Baso % (Auto) Neut # (Auto) Lymph # (Auto) [place] # (Auto) Eos # (Auto) Baso # (Auto) PT INR APTT ABG pH 7.31 L ABG pCO2 71.9 H* ABG pO2 106 H ABG HCO3 36 H ABG Total CO2 38 H ABG O2 Saturation 97 ABG Base Excess 10.0 H VBG pH VBG pCO2 VBG pO2 VBG HCO3 VBG Total CO2 VBG O2 Saturation VBG Base Excess FiO2 32 Sodium Potassium Chloride Carbon Dioxide BUN Creatinine Estimated GFR BUN/Creatinine Ratio Glucose Lactate Calcium Total Bilirubin AST ALT Alkaline Phosphatase Ammonia < 9 L Total Creatine Kinase CK-MB (CK-2) CK-MB (CK-2) Rel Index Troponin I NT-Pro-B Natriuret Pep Total Protein Albumin Globulin Albumin/Globulin Ratio Procalcitonin TSH Prolactin 18.0 Urine Color Urine Appearance Urine pH Ur Specific [place] Urine Protein Urine Glucose (UA) Urine Ketones Urine Occult Blood Urine Nitrate Urine Bilirubin Urine Urobilinogen Ur Leukocyte Esterase Urine RBC Urine WBC Ur Squamous Epith Cells Urine Bacteria Hyaline Casts Ur Culture Indicated? Salicylates < 1.0 U Opiates 300ng/mL cut Ur Oxycodone Screen Urine Methadone Screen Acetaminophen < 10 Ur Barbiturates Screen U Tricyclic Antidepress Ur Phencyclidine Scrn Ur Amphetamines Screen U Methamphetamines Scrn Ur MDMA Scrn (Ecstasy) U Benzodiazepines Scrn Urine Cocaine Screen U Marijuana (THC) Screen Ethyl Alcohol < 10 05/25/22 05/25/22 05/25/22 11:50 11:50 12:54 WBC RBC Hgb Hct MCV MCH MCHC RDW Plt Count Neut % (Auto) Lymph % (Auto) [place] % (Auto) Eos % (Auto) Baso % (Auto) Neut # (Auto) Lymph # (Auto) [place] # (Auto) Eos # (Auto) Baso # (Auto) PT INR APTT ABG pH 7.29 L* ABG pCO2 69.7 H* ABG pO2 78 L ABG HCO3 33 H ABG Total CO2 35 H ABG O2 Saturation 93 L ABG Base Excess 7.0 H VBG pH VBG pCO2 VBG pO2 VBG HCO3 VBG Total CO2 VBG O2 Saturation VBG Base Excess FiO2 30 Sodium Potassium Chloride Carbon Dioxide BUN Creatinine Estimated GFR BUN/Creatinine Ratio Glucose Lactate Calcium Total Bilirubin AST ALT Alkaline Phosphatase Ammonia Total Creatine Kinase CK-MB (CK-2) CK-MB (CK-2) Rel Index Troponin I NT-Pro-B Natriuret Pep Total Protein Albumin Globulin Albumin/Globulin Ratio Procalcitonin TSH Prolactin Urine Color Yellow Urine Appearance Clear Urine pH 7.0 Ur Specific [place] 1.010 Urine Protein 1+ H Urine Glucose (UA) Trace H Urine Ketones Negative Urine Occult Blood 2+ H Urine Nitrate Negative Urine Bilirubin Negative Urine Urobilinogen 0.2 Ur Leukocyte Esterase 1+ H Urine RBC 5-10/hpf H Urine WBC 10-30/hpf H Ur Squamous Epith Cells 1-5 /hpf Urine Bacteria None seen Hyaline Casts 1-5/lpf Ur Culture Indicated? Specimen cultured Salicylates U Opiates 300ng/mL cut Negative Ur Oxycodone Screen Negative Urine Methadone Screen Negative Acetaminophen Ur Barbiturates Screen Negative U Tricyclic Antidepress Negative Ur Phencyclidine Scrn Negative Ur Amphetamines Screen Negative U Methamphetamines Scrn Negative Ur MDMA Scrn (Ecstasy) Negative U Benzodiazepines Scrn Negative Urine Cocaine Screen Negative U Marijuana (THC) Screen Negative Ethyl Alcohol 05/25/22 05/25/22 05/25/22 15:34 15:34 17:18 WBC RBC Hgb Hct MCV MCH MCHC RDW Plt Count Neut % (Auto) Lymph % (Auto) [place] % (Auto) Eos % (Auto) Baso % (Auto) Neut # (Auto) Lymph # (Auto) [place] # (Auto) Eos # (Auto) Baso # (Auto) PT INR APTT ABG pH ABG pCO2 ABG pO2 ABG HCO3 ABG Total CO2 ABG O2 Saturation ABG Base Excess VBG pH 7.32 L VBG pCO2 64.1 H VBG pO2 29 L VBG HCO3 33 H VBG Total CO2 35 H VBG O2 Saturation 47 L VBG Base Excess 7.0 H FiO2 30 Sodium 138 Potassium 4.9 Chloride 98 Carbon Dioxide 34 H BUN 53 H Creatinine 3.08 H Estimated GFR 17 L BUN/Creatinine Ratio 17.2 Glucose 115 H Lactate 1.2 Calcium 9.1 Total Bilirubin AST ALT Alkaline Phosphatase Ammonia Total Creatine Kinase 5086 H D CK-MB (CK-2) 17.20 H CK-MB (CK-2) Rel Index 0.3 L Troponin I 0.038 H NT-Pro-B Natriuret Pep Total Protein Albumin Globulin Albumin/Globulin Ratio Procalcitonin TSH Prolactin Urine Color Urine Appearance Urine pH Ur Specific [place] Urine Protein Urine Glucose (UA) Urine Ketones Urine Occult Blood Urine Nitrate Urine Bilirubin Urine Urobilinogen Ur Leukocyte Esterase Urine RBC Urine WBC Ur Squamous Epith Cells Urine Bacteria Hyaline Casts Ur Culture Indicated? Salicylates U Opiates 300ng/mL cut Ur Oxycodone Screen Urine Methadone Screen Acetaminophen Ur Barbiturates Screen U Tricyclic Antidepress Ur Phencyclidine Scrn Ur Amphetamines Screen U Methamphetamines Scrn Ur MDMA Scrn (Ecstasy) U Benzodiazepines Scrn Urine Cocaine Screen U Marijuana (THC) Screen Ethyl Alcohol Assessment & Plan Assessment & Plan narrative: 1. Acute hypercapnic on chronic hypercapnic and hypoxemic respiratory failure - continue BiPAP - tele ICU consultation - consider steroids - RT eval and treat, nebulizers ordered. - bedside TTE with likely reduced EF, difficult to obtain due to obesity. IVC is 2.4 cm without collapse. Given complex volume status, likely volume overload but elevated CK will hold on diuresis or fluids at this time. Monitor closely. Will defer to tele-clinical support manager if they feels strongly one direction or another regarding volume status. 2. Undifferentiated shock, presume septic but possible cardiogenic with BLANCA, respiratory failure, acute metabolic encephalopathy - continue ceftriaxone for now for acute cystitis, doubt cholecystitis with no abdominal pain, more likely is edematous due to volume overload and heart failure. Consider addition of flagyl but no leukocytosis or abdominal pain. - TTE ordered - given gross overload on exam, but also rhabdomyolysis with elevated CK will not give fluid or diurese as discussed above. - encephalopathy did improved with BiPAP 3. Acute on chronic systolic and diastolic heart failure - continue to monitor, will avoid excess fluids but over concern for rhabdo hold on diuresis, will also defer to tele-clinical support manager regarding management. 4. BLANCA on likely CKD - obtain renal ultrasound - probably in setting of sepsis / shock 5. Non-traumatic rhabdomyolysis - unclear etiology, was possibly resting for a while at assisting living facility? Consider seizure with uncontrolled tremors reported on transfer paperwork from assisted living facility. - monitor Intake and output closely with philippe catheter 6. Myocardial injury - improved troponin in the ER, no EKG findings with ischemia 7. COPD with exacerbation - start steroids - continue duonebs, prn albuterol. RT eval and treat 8. DM 2 - continue half home insulin with 10 Units lantus at night - sliding scale for now. - when tolerating oral start meal time and increase lantus to home dosing though consider lowering with acute kidney injury. I have utilized all available immediate resources to obtain, update, or review the patient's current medications. Code: Full, surrogate is patient's daughter as discussed with patient. DVT: lovenox renal dosing 30 mg daily Dispo: Admit to ICU I spent 60 minutes providing critical care management this patient. This excludes time spent in performing separately billed procedures. COVID-19 COVID-19 status: Negative Time Spent With Patient Critical Care time: I spent a total of [] minutes of critical care time on this patient's care today; this time is exclusive of procedural time. Quality MIPS - Admit I confirm the patient?s Advance Care Plan is present, Code status is documented, Surrogate decision maker is in patient?s record [If Yes, STOP here]: Yes
[2022-05-25 18:25] LABS: COVID19 -Nasal RAPID Negative (Negative)
--- NOTE | 2022-05-25 18:58 | DI.ECHO.S_ITS ---
[facility]---------+ [facility] +---------+ : : [address] : : : : [id number] : : : : Phone: [phone]---------+ Echocardiogram Report + + :Name: ELLA OSHEA Study Date: 05/26/2022 Height: 63 in : :[facility] ReadingLocation: Weight: 310 lb : : Gender: Female BSA: 2.3 m2 : :: 1960 Age: 61 yrs BP: 112/59 mmHg: :Reason For Study: HEART AND RESPIRATORY FAILURE : :Ordering Physician: HILLARY, : :GEORGES ANAYA Performed By: Galina Loyola : :Referring: GEORGES THORNTON : + + Interpretation Summary The study quality was technically difficult. The left ventricle is mildly dilated. There is no LV thrombus. Left ventricular systolic function is severely reduced. The ejection fraction is estimated to be 20-25%. There is moderate to severe global hypokinesis of the left ventricle. Diastolic parameters suggest a pseudonormalization pattern, consistent with probable elevated filling pressures. The right ventricle is not well visualized. The right ventricle is grossly normal size. Right ventricular systolic function is mild to moderately reduced. There is mild mitral regurgitation. There is moderate tricuspid regurgitation. The right ventricular systolic pressure is estimated to be at least 45 mmHg based on an estimated right atrial pressure of 15 mm Hg. Procedure: A two-dimensional transthoracic echocardiogram with color flow and Doppler was performed. The study quality was technically difficult. A contrast injection of Definity was performed to improve assessment of LV function. There is no prior echocardiogram noted for this patient. The patient was in 64-77 during the exam. The patient was in normal sinus rhythm during the exam. Left Ventricle: The left ventricle is mildly dilated. There is normal left ventricular wall thickness. There is no thrombus. The ejection fraction is estimated to be 20-25%. Left ventricular systolic function is severely reduced. There is moderate to severe global hypokinesis of the left ventricle. Diastolic parameters suggest a pseudonormalization pattern, consistent with probable elevated filling pressures. Right Ventricle: The right ventricle is not well visualized. The right ventricle is grossly normal size. Right ventricular systolic function is mild to moderately reduced. Atria: The left atrium is mildly dilated. Right atrium not well visualized secondary to technical limitations. There is no Doppler evidence for an interatrial shunt. Mitral Valve: Tented mitral leaflets. There is mild mitral annular calcification. There is mild mitral regurgitation. Aortic Valve: The aortic valve is not well visualized. The aortic valve opens well. There is no aortic valve stenosis. No aortic regurgitation is present. Tricuspid Valve: The tricuspid valve is not well visualized, but is grossly normal. There is moderate tricuspid regurgitation. The right ventricular systolic pressure is estimated to be at least 45 mmHg based on an estimated right atrial pressure of 15 mm Hg. Pulmonic Valve: The pulmonic valve is not well visualized. Great Vessels: The aortic root is normal size. The ascending aorta could not be visualized. The IVC is dilated (diameter is greater than 2.1 cm) and it collapses less than 50% with a sniff. This suggests a high right atrial pressure of 15 mm Hg. Pericardium/ Pleura There is no pericardial effusion. There is no pleural effusion. MMode/2D Measurements & Calculations LVIDd: 5.9 cm LVOT diam: 1.9 cm LVIDs: 5.2 cm Ao root diam: 2.4 cm FS: 11.9 % Ao Arch Diam (Prox Trans): 2.8 cm EPSS: 2.0 cm IVSd: 0.75 cm LVPWd: 0.84 cm LV cotto. diameter/BSA (cm/m^2): 2.6 LV sys. diameter/BSA (cm/m^2): 2.2 LA dimension: 3.8 cm IVC diam: 2.5 cm LA A4 area: 37.3 cm2 LA length (vol): 8.2 cm Doppler Measurements & Calculations Ao V2 max: 94.3 cm/sec LVOT Max Arturo: 68.4 cm/sec Ao V2 mean: 70.6 cm/sec LV V1 max P.9 mmHg Ao max P.6 mmHg LV V1 VTI: 15.4 cm Ao mean P.2 mmHg AMADOU(I,D): 2.0 cm2 Ao V2 VTI: 21.2 cm AMADOU(V,D): 2.0 cm2 sev ratio: 0.73 AMADOU indexed to BSA (cm^2/m^2): 0.85 MV E max arturo: 79.0 cm/sec TR max arturo: 284.4 cm/sec MV A max arturo: 37.8 cm/sec TR max P.3 mmHg MV E/A: 2.1 PA V2 max: 99.7 cm/sec Med Peak E' Arturo: 6.0 cm/sec PA V2 mean: 62.5 cm/sec E/E' med: 13.2 PA mean P.8 mmHg Lat Peak E' Arturo: 7.3 cm/sec PA pr(Accel): 43.0 mmHg E/E' lat: 10.9 E/e' average: 12.0 MV dec time: 0.21 sec SV(LVOT): 41.9 ml Reading Physician:09:[id number] AM
--- NOTE | 2022-05-25 19:07 | PC.NURSE ---
Pt transported to the ICU rm 227. [facility] called this afternoon requesting update on patient. Returned call at [phone], the call went to confidential nursing voicemail, left a message stating pt is now in the ICU and requested they call hospital in the morning to request an update.
--- NOTE | 2022-05-25 19:24 | PC.NURSE ---
Admit Note Patient arrived 1820 to room 227 from ER. Transferred via slider board to bed. Bipap in place 16/5, 30% fIo2 30% w/ SpO2 upper 90s. Pt alert and oriented x3 and interactive with staff, answering questions appropriately. Levo infusing at 4 mcg/min and titrated to 2 mcg/min, MAP in the 65-[address] and draining clear yellow urine. Oriented to call light/bed/tv controls. Bed alarm on for safety.
[2022-05-25 19:49] LABS: MRSA (Nasal) PCR Not Detected (Not Detect)
[2022-05-25] MEDS: cefTRIAXone 1,000 MG in SODIUM CHLORIDE 0.9% 100 ML 200 MG IV (19:54)
[2022-05-25] MEDS: SODIUM CHLORIDE 0.9% FLUSH 10 ML IV (21:48)
--- NOTE | 2022-05-25 22:50 | P.TELICUCN_ITS ---
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 By report patient was lethargic and confused in the ER. ABG showed acute on chronic hypercarbia respiratory failure and placed on BiPAP. She was also noted to be hypotensive which a double lumen PICC line was placed and started on levophed of 8 mcg which not has been titrated donw to 3 mcg. CTH showed ventriculomegaly concerning for NPH. CT chest showed mildly engorged vessels with small lung volume. Labs notable for Hb 10.7, Co2 34, BUN 53, Cr 3.08, CK 2243, troponin 0.052, BNP 5690. Started on ceftriaxone and admitted to ICU for further management. At the time of my assessment patient is on BiPAP 16/5 FiO2 30%. Patient is lethargic on camera assessment. [facility] Medical History (Updated 05/25/22 @ 19:18 by Jayne Muhammad DO) Chronic hypoxemic respiratory failure COPD (chronic obstructive pulmonary disease) DM2 (diabetes mellitus, type 2) HTN (hypertension) Obesity PONCE (obstructive sleep apnea) Systolic and diastolic CHF, chronic Thyroiditis Surgical History (Updated 05/25/22 @ 18:30 by Esteban Gillespie DO) S/P hernia surgery Family History (Updated 05/25/22 @ 18:31 by Esteban Gillespie DO) Mother No pertinent past medical history Father No pertinent past medical history Current Medications Current Medications Medications: Home Medications acetaminophen 325 mg tablet (Tylenol) 650 mg PO TID 05/25/22 [History Confirmed 05/25/22] albuterol sulfate 90 mcg/actuation aerosol inhaler 4 puff inhalation Q4H PRN Wheezing 05/25/22 [History Confirmed 05/25/22] aspirin 81 mg tablet,delayed release 81 mg PO DAILY 05/25/22 [History Confirmed 05/25/22] budesonide-formoterol HFA 160 mcg-4.5 mcg/actuation aerosol inhaler 2 puff inhalation Q4H PRN Wheezing 05/25/22 [History Confirmed 05/25/22] bupropion HCl 150 mg tablet,12 hr sustained-release 150 mg PO BEDTIME 05/25/22 [History Confirmed 05/25/22] carvedilol 3.125 mg tablet 3.125 mg PO BID 05/25/22 [History Confirmed 05/25/22] cyanocobalamin (vitamin B-12) 500 mcg tablet 500 mcg PO DAILY 05/25/22 [History Confirmed 05/25/22] fenofibrate 160 mg tablet 160 mg PO DAILY 05/25/22 [History Confirmed 05/25/22] ferrous sulfate 325 mg (65 mg iron) tablet 325 mg PO DAILY 05/25/22 [History Co nfirmed 05/25/22] fluoxetine 20 mg tablet 20 mg PO DAILY 05/25/22 [History Confirmed 05/25/22] fluticasone propionate 50 mcg/actuation nasal spray,suspension 2 spray intranasal DAILY 05/25/22 [History Confirmed 05/25/22] gabapentin 300 mg capsule 300 mg PO BEDTIME 05/25/22 [History Confirmed 3] insulin glargine 100 unit/mL (3 mL) subcutaneous pen 22 unit SUBCUT BID 05/25/22 [History Confirmed 05/25/22] insulin lispro 100 unit/mL subcutaneous solution (Humalog U-100 Insulin) 4 unit SUBCUT TIDWM 05/25/22 [History Confirmed 05/25/22] levothyroxine 200 mcg tablet 200 mcg PO DAILY 05/25/22 [History Confirmed 05/25/22] lidocaine 5 % topical patch 1 patch topical DAILY 05/25/22 [History Confirmed 05/25/22] loratadine 10 mg tablet 10 mg PO DAILY 05/25/22 [History Confirmed 05/25/22] magnesium hydroxide 400 mg/5 mL oral suspension (Milk of Magnesia) 15 ml PO Q24H PRN Constipation 05/25/22 [History Confirmed 05/25/22] magnesium oxide 200 mg PO BID 05/25/22 [History Confirmed 05/25/22] meclizine 25 mg tablet 25 mg PO Q8HR PRN Dizziness 05/25/22 [History Confirmed 05/25/22] montelukast 10 mg tablet 10 mg PO DAILY 05/25/22 [History Confirmed 05/25/22] nystatin 100,000 unit/gram topical powder 1 applic topical BID PRN Rash 05/25/22 [History Confirmed 05/25/22] ondansetron 4 mg disintegrating tablet 4 mg PO Q8H PRN Nausea 05/25/22 [History Confirmed 05/25/22] rosuvastatin 40 mg tablet 40 mg PO DAILY 05/25/22 [History Confirmed 05/25/22] sennosides 8.6 mg tablet (senna) 17.2 mg PO BEDTIME 05/25/22 [History Confirmed 05/25/22] tiotropium bromide 18 mcg capsule with inhalation device (Spiriva with HandiHaler) 1 cap inhalation DAILY 05/25/22 [History Confirmed 05/25/22] torsemide 10 mg tablet 30 mg PO DAILY 05/25/22 [History Confirmed 05/25/22] trazodone 50 mg tablet 50 mg PO BEDTIME 05/25/22 [History Confirmed 05/25/22] Visit Medications (administered) Generic Name Dose Route Start Last Admin Trade Name Freq PRN Reason Stop Dose Admin NOREPINEPHRINE BITARTRATE/D5W 4 mg in 250 mls @ 30 mls/hr 05/25/22 12:42 05/25/22 20:00 Levophed IV 3 mcg/min TITRATE JAY JAY 11.25 mls/hr Titration Protocol 8 MCG/MIN Ceftriaxone Sodium 1,000 mg/ 100 mls @ 200 mls/hr 05/25/22 19:00 05/25/22 22:03 Sodium Chloride IV Infused Q24H JAY JAY Infusion Insulin Glargine 10 unit 05/25/22 21:00 05/25/22 21:47 Insulin Glargine 100 Unit/Ml 3ml Pen SUBCUT Not Given 2100 JAY JAY Insulin Human Lispro 0 unit 05/25/22 21:00 05/25/22 21:44 Insulin Lispro 100 Unit/Ml 3ml Vial SUBCUT Not Given ACHS JAY JAY Protocol Methylprednisolone 40 mg 05/25/22 19:20 05/25/22 19:54 Methylprednisolone 40 Mg/Ml Vial IV 40 mg Q12HR JAY JAY Administration Naloxone HCl 0.2 mg 05/25/22 12:20 05/25/22 12:35 Naloxone 0.4 Mg/Ml Vial IV 0.2 mg Q2MIN PRN Administration Opiate Reversal Sodium Chloride 10 ml 05/25/22 21:00 05/25/22 21:48 Sodium Chloride 0.9% Flush IV 10 ml BID JAY JAY Administration Exam Vital Signs (past 8 hours): - 05/25/22 14:55 05/25/22 14:55 05/25/22 15:00 Temperature Pulse Rate 59 L Respiratory Rate 20 Blood Pressure 133/91 H 131/90 Pulse Oximetry 96 Oxygen Delivery Method Fraction of Inspired Oxygen 05/25/22 15:00 05/25/22 15:05 05/25/22 15:10 Temperature Pulse Rate 59 L 58 L Respiratory Rate 21 21 Blood Pressure 131/83 Pulse Oximetry 95 95 Oxygen Delivery Method BiPAP Fraction of Inspired Oxygen 05/25/22 15:10 05/25/22 15:15 05/25/22 15:20 Temperature Pulse Rate 58 L 61 61 Respiratory Rate 25 H 24 23 Blood Pressure Pulse Oximetry 95 95 94 Oxygen Delivery Method BiPAP Fraction of Inspired Oxygen 05/25/22 15:25 05/25/22 15:30 05/25/22 15:35 Temperature Pulse Rate 60 59 L 59 L Respiratory Rate 25 H 24 25 H Blood Pressure 130/82 Pulse Oximetry 95 96 96 Oxygen Delivery Method Fraction of Inspired Oxygen 05/25/22 15:40 05/25/22 15:45 05/25/22 15:50 Temperature Pulse Rate 60 59 L 59 L Respiratory Rate 25 H 24 25 H Blood Pressure Pulse Oximetry 96 95 96 Oxygen Delivery Method Fraction of Inspired Oxygen 05/25/22 15:55 05/25/22 16:00 05/25/22 16:05 Temperature Pulse Rate 58 L 58 L 56 L Respiratory Rate 25 H 25 H 25 H Blood Pressure 128/86 Pulse Oximetry 96 96 96 Oxygen Delivery Method Fraction of Inspired Oxygen 05/25/22 16:10 05/25/22 16:15 05/25/22 16:20 Temperature Pulse Rate 55 L 55 L 55 L Respiratory Rate 25 H 25 H 25 H Blood Pressure Pulse Oximetry 96 96 96 Oxygen Delivery Method Fraction of Inspired Oxygen 05/25/22 16:25 05/25/22 16:28 05/25/22 16:29 Temperature Pulse Rate 60 60 Respiratory Rate 25 H 25 H Blood Pressure 126/84 Pulse Oximetry 94 95 Oxygen Delivery Method BiPAP Fraction of Inspired Oxygen 05/25/22 17:00 05/25/22 16:29 05/25/22 16:30 Temperature Pulse Rate 60 Respiratory Rate 25 H Blood Pressure 112/70 128/83 Pulse Oximetry 96 Oxygen Delivery Method Fraction of Inspired Oxygen 30 05/25/22 16:30 05/25/22 16:35 05/25/22 16:35 Temperature Pulse Rate 59 L 57 L Respiratory Rate 25 H 25 H Blood Pressure 126/85 Pulse Oximetry 95 95 Oxygen Delivery Method Fraction of Inspired Oxygen 05/25/22 16:40 05/25/22 16:40 05/25/22 16:45 Temperature Pulse Rate 58 L Respiratory Rate 25 H Blood Pressure 126/84 118/73 Pulse Oximetry 96 Oxygen Delivery Method Fraction of Inspired Oxygen 05/25/22 16:45 05/25/22 16:50 05/25/22 16:50 Temperature Pulse Rate 60 58 L Respiratory Rate 26 H 25 H Blood Pressure 124/79 Pulse Oximetry 95 94 Oxygen Delivery Method Fraction of Inspired Oxygen 05/25/22 16:55 05/25/22 16:55 05/25/22 17:00 Temperature Pulse Rate 60 Respiratory Rate 25 H Blood Pressure 121/77 119/78 Pulse Oximetry 95 Oxygen Delivery Method Fraction of Inspired Oxygen 05/25/22 17:00 05/25/22 17:05 05/25/22 17:05 Temperature Pulse Rate 59 L 57 L Respiratory Rate 25 H 25 H Blood Pressure 120/81 Pulse Oximetry 97 99 Oxygen Delivery Method BiPAP Fraction of Inspired Oxygen 05/25/22 17:10 05/25/22 17:10 05/25/22 17:15 Temperature Pulse Rate 60 Respiratory Rate 25 H Blood Pressure 122/81 123/83 Pulse Oximetry 96 Oxygen Delivery Method Fraction of Inspired Oxygen 05/25/22 17:15 05/25/22 17:20 05/25/22 17:20 Temperature Pulse Rate 59 L 58 L Respiratory Rate 22 24 Blood Pressure 122/76 Pulse Oximetry 95 96 Oxygen Delivery Method Fraction of Inspired Oxygen 05/25/22 17:25 05/25/22 17:25 05/25/22 17:30 Temperature Pulse Rate 75 Respiratory Rate 25 H Blood Pressure 112/70 120/78 Pulse Oximetry 96 Oxygen Delivery Method Fraction of Inspired Oxygen 05/25/22 17:30 05/25/22 17:35 05/25/22 17:35 Temperature Pulse Rate 59 L 58 L Respiratory Rate 26 H 25 H Blood Pressure 121/81 Pulse Oximetry 95 95 Oxygen Delivery Method Fraction of Inspired Oxygen 05/25/22 17:40 05/25/22 17:40 05/25/22 17:45 Temperature Pulse Rate 57 L Respiratory Rate 25 H Blood Pressure 125/84 124/83 Pulse Oximetry 97 Oxygen Delivery Method Fraction of Inspired Oxygen 05/25/22 17:45 05/25/22 17:50 05/25/22 17:50 Temperature Pulse Rate 57 L 57 L Respiratory Rate 26 H 26 H Blood Pressure 123/77 Pulse Oximetry 97 97 Oxygen Delivery Method Fraction of Inspired Oxygen 05/25/22 17:55 05/25/22 17:55 05/25/22 18:00 Temperature Pulse Rate 90 Respiratory Rate 24 Blood Pressure 123/83 114/73 Pulse Oximetry 95 Oxygen Delivery Method Fraction of Inspired Oxygen 05/25/22 18:00 05/25/22 18:04 05/25/22 18:05 Temperature Pulse Rate 59 L 64 Respiratory Rate 26 H 45 H Blood Pressure 113/72 Pulse Oximetry 95 95 Oxygen Delivery Method Fraction of Inspired Oxygen 05/25/22 19:07 05/25/22 19:23 05/25/22 18:05 Temperature 99.2 F Pulse Rate 61 Respiratory Rate 24 Blood Pressure Pulse Oximetry 96 Oxygen Delivery Method BiPAP Fraction of Inspired Oxygen 05/25/22 18:10 05/25/22 18:11 05/25/22 18:11 Temperature Pulse Rate 59 L 59 L Respiratory Rate 26 H 29 H Blood Pressure 118/69 Pulse Oximetry 95 95 Oxygen Delivery Method Fraction of Inspired Oxygen 05/25/22 18:15 05/25/22 18:15 05/25/22 18:20 Temperature Pulse Rate 60 62 Respiratory Rate 25 H Blood Pressure 114/63 Pulse Oximetry 94 Oxygen Delivery Method Fraction of Inspired Oxygen 05/25/22 18:21 05/25/22 18:21 05/25/22 18:25 Temperature Pulse Rate 62 63 Respiratory Rate 30 H 34 H Blood Pressure 92/55 L Pulse Oximetry 95 78 L Oxygen Delivery Method Fraction of Inspired Oxygen 05/25/22 18:31 05/25/22 18:35 05/25/22 18:40 Temperature Pulse Rate 93 H 68 Respiratory Rate 25 H 31 H Blood Pressure 100/70 Pulse Oximetry 95 93 Oxygen Delivery Method Fraction of Inspired Oxygen 05/25/22 18:45 05/25/22 18:45 05/25/22 18:50 Temperature Pulse Rate 62 68 Respiratory Rate 25 H 40 H Blood Pressure 109/70 Pulse Oximetry 94 94 Oxygen Delivery Method Fraction of Inspired Oxygen 05/25/22 18:55 05/25/22 19:00 05/25/22 19:00 Temperature Pulse Rate 59 L 159 H Respiratory Rate 36 H 43 H Blood Pressure 98/68 Pulse Oximetry 93 89 L Oxygen Delivery Method Fraction of Inspired Oxygen 05/25/22 19:05 05/25/22 19:10 05/25/22 19:15 Temperature Pulse Rate 59 L 58 L Respiratory Rate 25 H 25 H Blood Pressure 92/51 L Pulse Oximetry 93 95 Oxygen Delivery Method Fraction of Inspired Oxygen 05/25/22 19:15 05/25/22 19:20 05/25/22 19:25 Temperature Pulse Rate 54 L 52 L 53 L Respiratory Rate 25 H 25 H 25 H Blood Pressure Pulse Oximetry 95 95 94 Oxygen Delivery Method Fraction of Inspired Oxygen 05/25/22 19:30 05/25/22 19:30 05/25/22 19:35 Temperature Pulse Rate 52 L 52 L Respiratory Rate 25 H 25 H Blood Pressure 86/54 L Pulse Oximetry 95 95 Oxygen Delivery Method Fraction of Inspired Oxygen 05/25/22 19:40 05/25/22 19:40 05/25/22 19:45 Temperature Pulse Rate 53 L Respiratory Rate 25 H Blood Pressure 86/56 L 107/71 Pulse Oximetry 94 Oxygen Delivery Method Fraction of Inspired Oxygen 05/25/22 19:45 05/25/22 19:50 05/25/22 19:55 Temperature Pulse Rate 58 L 56 L 55 L Respiratory Rate 25 H 22 15 Blood Pressure Pulse Oximetry 92 97 98 Oxygen Delivery Method Fraction of Inspired Oxygen 05/25/22 20:00 05/25/22 20:00 05/25/22 20:05 Temperature 97.7 F Pulse Rate 57 L 55 L Respiratory Rate 17 20 Blood Pressure 97/61 Pulse Oximetry 96 96 Oxygen Delivery Method Fraction of Inspired Oxygen 05/25/22 20:10 05/25/22 20:15 05/25/22 20:15 Temperature Pulse Rate 57 L 58 L Respiratory Rate 20 18 Blood Pressure 98/63 Pulse Oximetry 95 96 Oxygen Delivery Method Fraction of Inspired Oxygen 05/25/22 20:20 05/25/22 20:25 05/25/22 20:30 Temperature Pulse Rate 57 L 57 L Respiratory Rate 17 17 Blood Pressure 100/64 Pulse Oximetry 96 96 Oxygen Delivery Method Fraction of Inspired Oxygen 05/25/22 20:30 05/25/22 20:45 05/25/22 20:45 Temperature Pulse Rate 57 L 58 L Respiratory Rate 15 18 Blood Pressure 104/68 Pulse Oximetry 96 97 Oxygen Delivery Method Fraction of Inspired Oxygen 05/25/22 21:00 05/25/22 21:00 05/25/22 20:00 Temperature Pulse Rate 60 Respiratory Rate 18 Blood Pressure 110/73 Pulse Oximetry 96 Oxygen Delivery Method BiPAP Fraction of Inspired Oxygen 05/25/22 21:15 05/25/22 21:15 05/25/22 21:30 Temperature Pulse Rate 57 L Respiratory Rate 26 H Blood Pressure 109/74 109/72 Pulse Oximetry 96 Oxygen Delivery Method Fraction of Inspired Oxygen 05/25/22 21:30 05/25/22 21:45 05/25/22 21:45 Temperature Pulse Rate 57 L 59 L Respiratory Rate 25 H 20 Blood Pressure 110/72 Pulse Oximetry 96 95 Oxygen Delivery Method Fraction of Inspired Oxygen 05/25/22 22:00 05/25/22 22:00 Temperature Pulse Rate 59 L Respiratory Rate 19 Blood Pressure 113/74 Pulse Oximetry 95 Oxygen Delivery Method Fraction of Inspired Oxygen Fraction of Inspired Oxygen 30 Oxygen Delivery Method BiPAP Oxygen Flow Rate 2 Narrative Exam Narrative: On BiPAP, lethargic. Objective Labs 05/25/22 09:00 05/25/22 15:34 Labs: Laboratory Results - last 24 hr 05/25/22 05/25/22 05/25/22 09:00 09:00 09:00 WBC 8.8 RBC 3.34 L Hgb 10.7 L Hct 33.5 L MCV 100.3 H D MCH 32.2 MCHC 32.1 RDW 19.6 H Plt Count 183 Neut % (Auto) 68.6 Lymph % (Auto) 19.6 L [place] % (Auto) 8.8 Eos % (Auto) 2.5 Baso % (Auto) 0.5 Neut # (Auto) 6000 Lymph # (Auto) 1700 [place] # (Auto) 800 Eos # (Auto) 200 Baso # (Auto) 0 PT 12.6 INR 1.1 APTT 31 ABG pH ABG pCO2 ABG pO2 ABG HCO3 ABG Total CO2 ABG O2 Saturation ABG Base Excess VBG pH VBG pCO2 VBG pO2 VBG HCO3 VBG Total CO2 VBG O2 Saturation VBG Base Excess FiO2 Sodium 139 Potassium 4.9 Chloride 96 L Carbon Dioxide 37 H BUN 57 H Creatinine 3.11 H Estimated GFR 17 L BUN/Creatinine Ratio 18.3 Glucose 127 H Lactate Calcium 9.7 Total Bilirubin 0.5 AST 50 H ALT 21 Alkaline Phosphatase 49 Ammonia Total Creatine Kinase 2243 H CK-MB (CK-2) 12.70 H CK-MB (CK-2) Rel Index 0.6 L Troponin I 0.052 H NT-Pro-B Natriuret Pep Total Protein 7.5 Albumin 4.1 Globulin 3.4 Albumin/Globulin Ratio 1.2 Procalcitonin 0.20 TSH Prolactin Urine Color Urine Appearance Urine pH Ur Specific [place] Urine Protein Urine Glucose (UA) Urine Ketones Urine Occult Blood Urine Nitrate Urine Bilirubin Urine Urobilinogen Ur Leukocyte Esterase Urine RBC Urine WBC Ur Squamous Epith Cells Urine Bacteria Hyaline Casts Ur Culture Indicated? Nasal Screen MRSA (PCR) Salicylates U Opiates 300ng/mL cut Ur Oxycodone Screen Urine Methadone Screen Acetaminophen Ur Barbiturates Screen U Tricyclic Antidepress Ur Phencyclidine Scrn Ur Amphetamines Screen U Methamphetamines Scrn Ur MDMA Scrn (Ecstasy) U Benzodiazepines Scrn Urine Cocaine Screen U Marijuana (THC) Screen Ethyl Alcohol SARS-CoV-2 (PCR) 05/25/22 05/25/22 05/25/22 09:00 09:00 09:00 WBC RBC Hgb Hct MCV MCH MCHC RDW Plt Count Neut % (Auto) Lymph % (Auto) [place] % (Auto) Eos % (Auto) Baso % (Auto) Neut # (Auto) Lymph # (Auto) [place] # (Auto) Eos # (Auto) Baso # (Auto) PT INR APTT ABG pH ABG pCO2 ABG pO2 ABG HCO3 ABG Total CO2 ABG O2 Saturation ABG Base Excess VBG pH VBG pCO2 VBG pO2 VBG HCO3 VBG Total CO2 VBG O2 Saturation VBG Base Excess FiO2 Sodium Potassium Chloride Carbon Dioxide BUN Creatinine Estimated GFR BUN/Creatinine Ratio Glucose Lactate 1.1 Calcium Total Bilirubin AST ALT Alkaline Phosphatase Ammonia Total Creatine Kinase CK-MB (CK-2) CK-MB (CK-2) Rel Index Troponin I NT-Pro-B Natriuret Pep 5690 H Total Protein Albumin Globulin Albumin/Globulin Ratio Procalcitonin TSH 3.19 Prolactin Urine Color Urine Appearance Urine pH Ur Specific [place] Urine Protein Urine Glucose (UA) Urine Ketones Urine Occult Blood Urine Nitrate Urine Bilirubin Urine Urobilinogen Ur Leukocyte Esterase Urine RBC Urine WBC Ur Squamous Epith Cells Urine Bacteria Hyaline Casts Ur Culture Indicated? Nasal Screen MRSA (PCR) Salicylates U Opiates 300ng/mL cut Ur Oxycodone Screen Urine Methadone Screen Acetaminophen Ur Barbiturates Screen U Tricyclic Antidepress Ur Phencyclidine Scrn Ur Amphetamines Screen U Methamphetamines Scrn Ur MDMA Scrn (Ecstasy) U Benzodiazepines Scrn Urine Cocaine Screen U Marijuana (THC) Screen Ethyl Alcohol SARS-CoV-2 (PCR) 05/25/22 05/25/22 05/25/22 10:53 10:53 11:10 WBC RBC Hgb Hct MCV MCH MCHC RDW Plt Count Neut % (Auto) Lymph % (Auto) [place] % (Auto) Eos % (Auto) Baso % (Auto) Neut # (Auto) Lymph # (Auto) [place] # (Auto) Eos # (Auto) Baso # (Auto) PT INR APTT ABG pH 7.31 L ABG pCO2 71.9 H* ABG pO2 106 H ABG HCO3 36 H ABG Total CO2 38 H ABG O2 Saturation 97 ABG Base Excess 10.0 H VBG pH VBG pCO2 VBG pO2 VBG HCO3 VBG Total CO2 VBG O2 Saturation VBG Base Excess FiO2 32 Sodium Potassium Chloride Carbon Dioxide BUN Creatinine Estimated GFR BUN/Creatinine Ratio Glucose Lactate Calcium Total Bilirubin AST ALT Alkaline Phosphatase Ammonia < 9 L Total Creatine Kinase CK-MB (CK-2) CK-MB (CK-2) Rel Index Troponin I NT-Pro-B Natriuret Pep Total Protein Albumin Globulin Albumin/Globulin Ratio Procalcitonin TSH Prolactin 18.0 Urine Color Urine Appearance Urine pH Ur Specific [place] Urine Protein Urine Glucose (UA) Urine Ketones Urine Occult Blood Urine Nitrate Urine Bilirubin Urine Urobilinogen Ur Leukocyte Esterase Urine RBC Urine WBC Ur Squamous Epith Cells Urine Bacteria Hyaline Casts Ur Culture Indicated? Nasal Screen MRSA (PCR) Salicylates < 1.0 U Opiates 300ng/mL cut Ur Oxycodone Screen Urine Methadone Screen Acetaminophen < 10 Ur Barbiturates Screen U Tricyclic Antidepress Ur Phencyclidine Scrn Ur Amphetamines Screen U Methamphetamines Scrn Ur MDMA Scrn (Ecstasy) U Benzodiazepines Scrn Urine Cocaine Screen U Marijuana (THC) Screen Ethyl Alcohol < 10 SARS-CoV-2 (PCR) 05/25/22 05/25/22 05/25/22 11:50 11:50 12:54 WBC RBC Hgb Hct MCV MCH MCHC RDW Plt Count Neut % (Auto) Lymph % (Auto) [place] % (Auto) Eos % (Auto) Baso % (Auto) Neut # (Auto) Lymph # (Auto) [place] # (Auto) Eos # (Auto) Baso # (Auto) PT INR APTT ABG pH 7.29 L* ABG pCO2 69.7 H* ABG pO2 78 L ABG HCO3 33 H ABG Total CO2 35 H ABG O2 Saturation 93 L ABG Base Excess 7.0 H VBG pH VBG pCO2 VBG pO2 VBG HCO3 VBG Total CO2 VBG O2 Saturation VBG Base Excess FiO2 30 Sodium Potassium Chloride Carbon Dioxide BUN Creatinine Estimated GFR BUN/Creatinine Ratio Glucose Lactate Calcium Total Bilirubin AST ALT Alkaline Phosphatase Ammonia Total Creatine Kinase CK-MB (CK-2) CK-MB (CK-2) Rel Index Troponin I NT-Pro-B Natriuret Pep Total Protein Albumin Globulin Albumin/Globulin Ratio Procalcitonin TSH Prolactin Urine Color Yellow Urine Appearance Clear Urine pH 7.0 Ur Specific [place] 1.010 Urine Protein 1+ H Urine Glucose (UA) Trace H Urine Ketones Negative Urine Occult Blood 2+ H Urine Nitrate Negative Urine Bilirubin Negative Urine Urobilinogen 0.2 Ur Leukocyte Esterase 1+ H Urine RBC 5-10/hpf H Urine WBC 10-30/hpf H Ur Squamous Epith Cells 1-5 /hpf Urine Bacteria None seen Hyaline Casts 1-5/lpf Ur Culture Indicated? Specimen cultured Nasal Screen MRSA (PCR) Salicylates U Opiates 300ng/mL cut Negative Ur Oxycodone Screen Negative Urine Methadone Screen Negative Acetaminophen Ur Barbiturates Screen Negative U Tricyclic Antidepress Negative Ur Phencyclidine Scrn Negative Ur Amphetamines Screen Negative U Methamphetamines Scrn Negative Ur MDMA Scrn (Ecstasy) Negative U Benzodiazepines Scrn Negative Urine Cocaine Screen Negative U Marijuana (THC) Screen Negative Ethyl Alcohol SARS-CoV-2 (PCR) 05/25/22 05/25/22 05/25/22 15:34 15:34 17:18 WBC RBC Hgb Hct MCV MCH MCHC RDW Plt Count Neut % (Auto) Lymph % (Auto) [place] % (Auto) Eos % (Auto) Baso % (Auto) Neut # (Auto) Lymph # (Auto) [place] # (Auto) Eos # (Auto) Baso # (Auto) PT INR APTT ABG pH ABG pCO2 ABG pO2 ABG HCO3 ABG Total CO2 ABG O2 Saturation ABG Base Excess VBG pH 7.32 L VBG pCO2 64.1 H VBG pO2 29 L VBG HCO3 33 H VBG Total CO2 35 H VBG O2 Saturation 47 L VBG Base Excess 7.0 H FiO2 30 Sodium 138 Potassium 4.9 Chloride 98 Carbon Dioxide 34 H BUN 53 H Creatinine 3.08 H Estimated GFR 17 L BUN/Creatinine Ratio 17.2 Glucose 115 H Lactate 1.2 Calcium 9.1 Total Bilirubin AST ALT Alkaline Phosphatase Ammonia Total Creatine Kinase 5086 H D CK-MB (CK-2) 17.20 H CK-MB (CK-2) Rel Index 0.3 L Troponin I 0.038 H NT-Pro-B Natriuret Pep Total Protein Albumin Globulin Albumin/Globulin Ratio Procalcitonin TSH Prolactin Urine Color Urine Appearance Urine pH Ur Specific [place] Urine Protein Urine Glucose (UA) Urine Ketones Urine Occult Blood Urine Nitrate Urine Bilirubin Urine Urobilinogen Ur Leukocyte Esterase Urine RBC Urine WBC Ur Squamous Epith Cells Urine Bacteria Hyaline Casts Ur Culture Indicated? Nasal Screen MRSA (PCR) Salicylates U Opiates 300ng/mL cut Ur Oxycodone Screen Urine Methadone Screen Acetaminophen Ur Barbiturates Screen U Tricyclic Antidepress Ur Phencyclidine Scrn Ur Amphetamines Screen U Methamphetamines Scrn Ur MDMA Scrn (Ecstasy) U Benzodiazepines Scrn Urine Cocaine Screen U Marijuana (THC) Screen Ethyl Alcohol SARS-CoV-2 (PCR) 05/25/22 05/25/22 18:08 18:35 WBC RBC Hgb Hct MCV MCH MCHC RDW Plt Count Neut % (Auto) Lymph % (Auto) [place] % (Auto) Eos % (Auto) Baso % (Auto) Neut # (Auto) Lymph # (Auto) [place] # (Auto) Eos # (Auto) Baso # (Auto) PT INR APTT ABG pH ABG pCO2 ABG pO2 ABG HCO3 ABG Total CO2 ABG O2 Saturation ABG Base Excess VBG pH VBG pCO2 VBG pO2 VBG HCO3 VBG Total CO2 VBG O2 Saturation VBG Base Excess FiO2 Sodium Potassium Chloride Carbon Dioxide BUN Creatinine Estimated GFR BUN/Creatinine Ratio Glucose Lactate Calcium Total Bilirubin AST ALT Alkaline Phosphatase Ammonia Total Creatine Kinase CK-MB (CK-2) CK-MB (CK-2) Rel Index Troponin I NT-Pro-B Natriuret Pep Total Protein Albumin Globulin Albumin/Globulin Ratio Procalcitonin TSH Prolactin Urine Color Urine Appearance Urine pH Ur Specific [place] Urine Protein Urine Glucose (UA) Urine Ketones Urine Occult Blood Urine Nitrate Urine Bilirubin Urine Urobilinogen Ur Leukocyte Esterase Urine RBC Urine WBC Ur Squamous Epith Cells Urine Bacteria Hyaline Casts Ur Culture Indicated? Nasal Screen MRSA (PCR) Not detected Salicylates U Opiates 300ng/mL cut Ur Oxycodone Screen Urine Methadone Screen Acetaminophen Ur Barbiturates Screen U Tricyclic Antidepress Ur Phencyclidine Scrn Ur Amphetamines Screen U Methamphetamines Scrn Ur MDMA Scrn (Ecstasy) U Benzodiazepines Scrn Urine Cocaine Screen U Marijuana (THC) Screen Ethyl Alcohol SARS-CoV-2 (PCR) Negative Assessment & Plan Assessment & Plan narrative: NEURO: # Acute encephalopathy -- Secondary to sepsis vs metabolic derangement vs ? NPH -- Sepsis rx as below -- Avoid sedatives -- DAily [facility] ICU -- Early mobility -- If patient has gait abnormality and urinary incontinence then recommend neurology consultation to rule out NPH RESP: # Acute on chronic hypercarbia respiratory failure -- Secondary to sepsis vs AECOPD -- On solumedrol -- ABG showed improved Co2 -- Cont BiPAP 16/5; may need a higher EPAP due to body habitus if ABG showed worsening respiratory acidosis -- HOB elevation -- Aspiration precaution -- Check am ABG -- Goal SpO2 > 88% CVS: # Shock -- Secondary to sepsis -- Sepsis rx as below -- On levophed -- MAP goal > 65 ID: # Septic shock -- Secondary to UTI vs aspiration -- On ceftriaxone -- Follow up cx data -- lactic acid normal -- MAP goal > 65 : # BLANCA -- Secondary to sepsis vs poor po intake -- Received 1 liter in ER -- Avoid nephrotixin agents -- Monitor UOP -- Daily BMP HEME: # Anemia -- Secondary to ACD -- No signs of overt bleed -- Daily CBC -- Goal Hb > 7 ENDO: # DM -- On ISS -- Goal BS < 180 D/w bedside RN Marni Time Spent With Patient Critical Care time: I spent a total of 35 minutes of critical care time on this patient's care today; this time is exclusive of procedural time.
[2022-05-26] VITALS (98 sets, daily range): BP systolic 101–144; BP diastolic 55–78; PULSE 46–72; RESP 0–35; TEMP 31–36.7; O2SAT 88–100; BMI 51.9
--- NOTE | 2022-05-26 | DI.RAD.S_ITS ---
PROCEDURE: XR CHEST 1V INDICATIONS: OG TUBE PLACEMENT TECHNIQUE: One view of the chest was acquired. COMPARISON: [facility], CR, XR CHEST 1V, 05/26/2022, 9:33. FINDINGS: Surgical changes and devices: Orogastric tube extends into the stomach. ET tube in satisfactory position. Lungs and pleura: Incompletely included. Bibasilar opacities consistent with likely in pneumonia, and left basilar atelectasis, and left pleural fluid. Mediastinum: Mediastinal contours appear normal. Cardiomegaly. Bones and chest wall: No suspicious bony lesions. Overlying soft tissues appear unremarkable. IMPRESSION: OG tube extends into the stomach. Dictated by: Hadley Brunner M.D. on 05/26/2022 at 16:52 Approved by: Hadley Brunner M.D. on 05/26/2022 at 16:53
[2022-05-26] MEDS: NOREPINEPHRINE BITARTRATE/D5W 4 MG/250 ML PLAST..BAG 11.25 MG IV (01:54)
[2022-05-26 05:19] LABS: Add Manual Diff / Slide Review NO; Basophils Absolute Auto 0 /uL (0-100); Basophils Percent Auto 0.3 % (0-2); Eosinophils Absolute Auto 0 /uL (0-450); Eosinophils Percent Auto 0.1 % (2-4); Hematocrit 36.6 % (36-46); Lymphocytes Absolute Auto 700 /uL (1100-4500); Lymphocytes Percent Auto 8.2 % (25-40); Mean Corpuscular HGB Conc 32.7 % (30-36); Mean Corpuscular Hemoglobin 32.3 PG (26-34); Mean Corpuscular Volume 98.8 fL (80-100); Monocytes Absolute Auto 100 /uL (0-900); Monocytes Percent Auto 1.3 % (3-14); Neutrophils Absolute Auto 8100 /uL (1500-7000); Neutrophils Percent Auto 90.1 % (50-75); Platelet Count 175 X10^3/uL (150-400); Red Cell Distribution Width 19.4 % (11.6-14.8)
[2022-05-26 05:25] LABS: Hemoglobin A1C% w Est Avg Glu 9.7 % (4.0-6.0)
[2022-05-26 05:29] LABS: Alanine Aminotransferase 46 IU/L (<35); Albumin 3.8 g/dL (3.5-5.0); Albumin Globulin Ratio 1.1 (1.0-2.8); Alkaline Phosphatase 52 U/L (38-126); Aspartate Aminotransferase 100 IU/L (14-36); BUN Creatinine Ratio 19.5 (6-22); Bilirubin Total 0.7 mg/dL (0.2-1.3); Blood Urea Nitrogen 51 mg/dL (7-17); Carbon Dioxide 35 mmol/L (22-32); Chloride 99 mmol/L (98-107); Estimated Glomerular Filt Rate 20 mL/min (>60); Globulin 3.4 g/dL (1.7-4.1); Glucose 184 mg/dL (80-110); HEMOLYSIS < 15 (0-50); Magnesium 2.2 mg/dL (1.6-2.3); Sodium 139 mmol/L (137-145); Total Protein 7.2 g/dL (6.3-8.2)
--- NOTE | 2022-05-26 06:55 | PC.NURSE ---
Research Laboratory Manager Note-Patient drowsy and fatigued most of the night, slept. Oriented to person, place, date, and situation when roused, forgetful to some events and previous care. Wore Bi-pap 16/5 30% until 0230, then switched 2L NC, SpO2 90-94%. Levophed continued throughout night 2-3mcg/min, see vital trends. Tele-Pattern Illustrator consulted.
[2022-05-26] MEDS: ALBUTEROL/IPRATROPIUM 3 ML AMPUL INH ×2 (08:21→18:14)
[2022-05-26 08:31] LABS: Creatine Kinase 2715 U/L (30-135)
[2022-05-26 09:00] LABS: Fractionated Inspired Oxygen 30; HCO3 VBG 33 mmol/L (24-28); Oxygen Saturation VBG 67 % (70-75); PCO2 VBG 68.3 mmHg (45-50); PO2 VBG 40 mmHg (35-45); Total CO2 VBG 35 mmol/L (24-29)
[2022-05-26] MEDS: ENOXAPARIN 30 MG/0.3 ML SYRINGE SUBCUT (09:04)
[2022-05-26] MEDS: FUROSEMIDE 20 MG/2 ML VIAL IV (09:04)
--- NOTE | 2022-05-26 09:33 | DI.RAD.S_ITS ---
PROCEDURE: XR CHEST 1V INDICATIONS: intubation TECHNIQUE: One view of the chest was acquired. COMPARISON: [facility], CR, XR CHEST FOR PICC 1V, 05/25/2022, 13:27. [facility], CR, XR CHEST 1V, 05/25/2022, 10:33. FINDINGS: Surgical changes and devices: There is an endotracheal tube 2.1 cm above ron. A nasogastric tube is present with the tip within the stomach. There is a right PICC with the tip in the area of SVC. Lungs and pleura: Bilateral pulmonary infiltrates. Left basilar consult. Moderate left pleural effusion. No pneumothorax. Mediastinum: Mediastinal contours appear normal. Heart size is normal. Bones and chest wall: No suspicious bony lesions. Overlying soft tissues appear unremarkable. IMPRESSION: Endotracheal tube and nasogastric tube in expected position. Dictated by: Cate Gooden M.D. on 05/26/2022 at 11:59 Approved by: Cate Gooden M.D. on 05/26/2022 at 12:01
--- NOTE | 2022-05-26 09:43 | PM.EVENT ---
Event Note Date Patient Seen: 05/26/22 Time Patient Seen: 08:45 Event Note (Rapid Response, Code, or fall): Patient had been off of Bipap overnight, becoming increasingly lethargic this morning. Restarted BiPAP therapy, patient not improved over one hour and remained lethargic, VBG showing respiratory acidosis, not significantly changed. Decision made to intubate, patient yesterday had expressed that she was full code during admission process with improvement in encephalopathy. Full note to follow.
--- NOTE | 2022-05-26 09:45 | PM.PROC.1 ---
Procedures Date/Time Date of procedure: 05/26/22 Time of procedure: 09:20 Intubation Time out performed: Yes Sedative: etomidate Mg given: 10 Paralytic: succinylcholine Mg given: 100 Laryngoscope: other (glidescope #3) ET tube size: 7.5 Tube secured depth (cm): 21 Tube placement confirmation: visualized tube passing through cords, equal breath sounds bilaterally, no breath sounds over epigastrium and confirmation by capnometry Patient tolerated procedure: well Intubation complications: none Additional comments: arrived at 09. report received from bedside RN. v/s/s. pt on bipap. lethargic. respond to tactile stimuli. spoke with patient, informed her of necessity for intubation. pt consent to proceed. pre intubation v/s BP 106/60, Spo2 91%, RR 23, on BiPAP. 25 off bipap assist with respiration with BMV. 925 induction. 927 ett secured. one attempt. atraumatic. v/s/s throughout. no complications. tube secured. XR ordered. post intubation v/s BP 123/72, HR 56 Spo2 98%.
--- NOTE | 2022-05-26 09:51 | DI.US.S_ITS ---
PROCEDURE: US ABDOMEN LIMITED INDICATIONS: ABNORMAL LIVER ENZYMES TECHNIQUE: Real-time scanning was performed of the abdominal and retroperitoneal organs, with image documentation. COMPARISON: None. FINDINGS: Liver: Normal liver echogenicity. Focal region of increased echogenicity along the fossa of the falciform ligament, presumably focal fat deposition. Gallbladder: Mildly thickened gallbladder wall, measuring 4 mm, with wall striation. Negative sonographic Cruz sign. No stones. Biliary ducts: Intrahepatic bile ducts are non-dilated. Extrahepatic bile duct caliber measures 3 mm. Normal is 6-7 mm or less in diameter, or 10 mm or less post-cholecystectomy. Pancreas: Visualized portions of the pancreas are sonographically normal. IMPRESSION: The gallbladder is distended, with a mildly thickened wall and with wall striation. Findings could indicate acalculous cholecystitis in the correct clinical setting. Dictated by: Kris Scott M.D. on 05/26/2022 at 13:04 Approved by: Kris Scott M.D. on 05/26/2022 at 13:06
--- NOTE | 2022-05-26 09:57 | P.TELICUPN_ITS ---
Subjective Subjective IF CAMERA ACTIVATED, patient seen via real-time interactive audiovisual communication: Camera activated Consent obtained for tele-quarter backer care: Yes Patient Location: ICU Provider location (State): [place] Other participants/roles: Dr. Gillespie Interval history: intubated this am for persistent acute resp failure Current Medications Current Medications Medications: Home Medications acetaminophen 325 mg tablet (Tylenol) 650 mg PO TID 05/25/22 [History Confirmed 05/25/22] albuterol sulfate 90 mcg/actuation aerosol inhaler 4 puff inhalation Q4H PRN Wheezing 05/25/22 [History Confirmed 05/25/22] aspirin 81 mg tablet,delayed release 81 mg PO DAILY 05/25/22 [History Confirmed 05/25/22] budesonide-formoterol HFA 160 mcg-4.5 mcg/actuation aerosol inhaler 2 puff inhalation Q4H PRN Wheezing 05/25/22 [History Confirmed 05/25/22] bupropion HCl 150 mg tablet,12 hr sustained-release 150 mg PO BEDTIME 05/25/22 [History Confirmed 05/25/22] carvedilol 3.125 mg tablet 3.125 mg PO BID 05/25/22 [History Confirmed 05/25/22] cyanocobalamin (vitamin B-12) 500 mcg tablet 500 mcg PO DAILY 05/25/22 [History Confirmed 05/25/22] fenofibrate 160 mg tablet 160 mg PO DAILY 05/25/22 [History Confirmed 05/25/22] ferrous sulfate 325 mg (65 mg iron) tablet 325 mg PO DAILY 05/25/22 [History Confirmed 05/25/22] fluoxetine 20 mg tablet 20 mg PO DAILY 05/25/22 [History Confirmed 05/25/22] fluticasone propionate 50 mcg/actuation nasal spray,suspension 2 spray intranasal DAILY 05/25/22 [History Confirmed 05/25/22] gabapentin 300 mg capsule 300 mg PO BEDTIME 05/25/22 [History Confirmed 05/25/22] insulin glargine 100 unit/mL (3 mL) subcutaneous pen 22 unit SUBCUT BID 05/25/22 [History Confirmed 05/25/22] insulin lispro 100 unit/mL subcutaneous solution (Humalog U-100 Insulin) 4 unit SUBCUT TIDWM 05/25/22 [History Confirmed 05/25/22] levothyroxine 200 mcg tablet 200 mcg PO DAILY 05/25/22 [History Confirmed 05/25/22] lidocaine 5 % topical patch 1 patch topical DAILY 05/25/22 [History Confirmed 05/25/22] loratadine 10 mg tablet 10 mg PO DAILY 05/25/22 [History Confirmed 05/25/22] magnesium hydroxide 400 mg/5 mL oral suspension (Milk of Magnesia) 15 ml PO Q24H PRN Constipation 05/25/22 [History Confirmed 05/25/22] magnesium oxide 200 mg PO BID 05/25/22 [History Confirmed 05/25/22] meclizine 25 mg tablet 25 mg PO Q8HR PRN Dizziness 05/25/22 [History Confirmed 05/25/22] montelukast 10 mg tablet 10 mg PO DAILY 05/25/22 [History Confirmed 05/25/22] nystatin 100,000 unit/gram topical powder 1 applic topical BID PRN Rash 05/25/22 [History Confirmed 05/25/22] ondansetron 4 mg disintegrating tablet 4 mg PO Q8H PRN Nausea 05/25/22 [History Confirmed 05/25/22] rosuvastatin 40 mg tablet 40 mg PO DAILY 05/25/22 [History Confirmed 05/25/22] sennosides 8.6 mg tablet (senna) 17.2 mg PO BEDTIME 05/25/22 [History Confirmed 05/25/22] tiotropium bromide 18 mcg capsule with inhalation device (Spiriva with HandiHaler) 1 cap inhalation DAILY 05/25/22 [History Confirmed 05/25/22] torsemide 10 mg tablet 30 mg PO DAILY 05/25/22 [History Confirmed 05/25/22] trazodone 50 mg tablet 50 mg PO BEDTIME 05/25/22 [History Confirmed 05/25/22] Visit Medications (administered) Generic Name Dose Route Start Last Admin Trade Name Freq PRN Reason Stop Dose Admin Albuterol/Ipratropium 3 ml 05/26/22 07:00 05/26/22 08:21 Albuterol/Ipratropium 3 Ml Ampul INH 3 ml [id number] JAY JAY Administration Enoxaparin Sodium 30 mg 05/26/22 09:00 05/26/22 09:04 Enoxaparin 30 Mg/0.3 Ml Syringe SUBCUT 30 mg DAILY JAY JAY Administration NOREPINEPHRINE BITARTRATE/D5W 4 mg in 250 mls @ 30 mls/hr 05/25/22 12:42 05/26/22 02:51 Levophed IV 2 mcg/min TITRATE JAY JAY 7.5 mls/hr Titration Protocol 8 MCG/MIN Ceftriaxone Sodium 1,000 mg/ 100 mls @ 200 mls/hr 05/25/22 19:00 05/25/22 22:03 Sodium Chloride IV Infused Q24H JAY JAY Infusion Insulin Glargine 10 unit 05/25/22 21:00 05/25/22 21:47 Insulin Glargine 100 Unit/Ml 3ml Pen SUBCUT Not Given 2100 JAY JAY Insulin Human Lispro 0 unit 05/25/22 21:00 05/25/22 21:44 Insulin Lispro 100 Unit/Ml 3ml Vial SUBCUT Not Given ACHS [facility] Protocol Methylprednisolone 40 mg 05/25/22 19:20 05/26/22 00:39 Methylprednisolone 40 Mg/Ml Vial IV 40 mg Q12HR JAY JAY Administration Naloxone HCl 0.2 mg 05/25/22 12:20 05/25/22 12:35 Naloxone 0.4 Mg/Ml Vial IV 0.2 mg Q2MIN PRN Administration Opiate Reversal Sodium Chloride 10 ml 05/25/22 21:00 05/25/22 21:48 Sodium Chloride 0.9% Flush IV 10 ml BID JAY JAY Administration Objective Ventilator Parameters: Ventilator Settings FiO2 30 Labs 05/26/22 05:00 05/26/22 05:00 Labs: Laboratory Results - last 24 hr 05/25/22 05/25/22 05/25/22 09:00 09:00 09:00 WBC 8.8 RBC 3.34 L Hgb 10.7 L Hct 33.5 L MCV 100.3 H D MCH 32.2 MCHC 32.1 RDW 19.6 H Plt Count 183 Neut % (Auto) 68.6 Lymph % (Auto) 19.6 L Wilcox % (Auto) 8.8 Eos % (Auto) 2.5 Baso % (Auto) 0.5 Neut # (Auto) 6000 Lymph # (Auto) 1700 Wilcox # (Auto) 800 Eos # (Auto) 200 Baso # (Auto) 0 PT 12.6 INR 1.1 APTT 31 ABG pH ABG pCO2 ABG pO2 ABG HCO3 ABG Total CO2 ABG O2 Saturation ABG Base Excess VBG pH VBG pCO2 VBG pO2 VBG HCO3 VBG Total CO2 VBG O2 Saturation VBG Base Excess FiO2 Sodium 139 Potassium 4.9 Chloride 96 L Carbon Dioxide 37 H BUN 57 H Creatinine 3.11 H Estimated GFR 17 L BUN/Creatinine Ratio 18.3 Glucose 127 H Hemoglobin A1c Lactate Calcium 9.7 Magnesium Total Bilirubin 0.5 AST 50 H ALT 21 Alkaline Phosphatase 49 Ammonia Total Creatine Kinase 2243 H CK-MB (CK-2) 12.70 H CK-MB (CK-2) Rel Index 0.6 L Troponin I 0.052 H NT-Pro-B Natriuret Pep Total Protein 7.5 Albumin 4.1 Globulin 3.4 Albumin/Globulin Ratio 1.2 Procalcitonin 0.20 TSH Prolactin Urine Color Urine Appearance Urine pH Ur Specific [place] Urine Protein Urine Glucose (UA) Urine Ketones Urine Occult Blood Urine Nitrate Urine Bilirubin Urine Urobilinogen Ur Leukocyte Esterase Urine RBC Urine WBC Ur Squamous Epith Cells Urine Bacteria Hyaline Casts Ur Culture Indicated? Nasal Screen MRSA (PCR) Salicylates U Opiates 300ng/mL cut Ur Oxycodone Screen Urine Methadone Screen Acetaminophen Ur Barbiturates Screen U Tricyclic Antidepress Ur Phencyclidine Scrn Ur Amphetamines Screen U Methamphetamines Scrn Ur MDMA Scrn (Ecstasy) U Benzodiazepines Scrn Urine Cocaine Screen U Marijuana (THC) Screen Ethyl Alcohol SARS-CoV-2 (PCR) 05/25/22 05/25/22 05/25/22 09:00 09:00 09:00 WBC RBC Hgb Hct MCV MCH MCHC RDW Plt Count Neut % (Auto) Lymph % (Auto) Wilcox % (Auto) Eos % (Auto) Baso % (Auto) Neut # (Auto) Lymph # (Auto) Wilcox # (Auto) Eos # (Auto) Baso # (Auto) PT INR APTT ABG pH ABG pCO2 ABG pO2 ABG HCO3 ABG Total CO2 ABG O2 Saturation ABG Base Excess VBG pH VBG pCO2 VBG pO2 VBG HCO3 VBG Total CO2 VBG O2 Saturation VBG Base Excess FiO2 Sodium Potassium Chloride Carbon Dioxide BUN Creatinine Estimated GFR BUN/Creatinine Ratio Glucose Hemoglobin A1c Lactate 1.1 Calcium Magnesium Total Bilirubin AST ALT Alkaline Phosphatase Ammonia Total Creatine Kinase CK-MB (CK-2) CK-MB (CK-2) Rel Index Troponin I NT-Pro-B Natriuret Pep 5690 H Total Protein Albumin Globulin Albumin/Globulin Ratio Procalcitonin TSH 3.19 Prolactin Urine Color Urine Appearance Urine pH Ur Specific [place] Urine Protein Urine Glucose (UA) Urine Ketones Urine Occult Blood Urine Nitrate Urine Bilirubin Urine Urobilinogen Ur Leukocyte Esterase Urine RBC Urine WBC Ur Squamous Epith Cells Urine Bacteria Hyaline Casts Ur Culture Indicated? Nasal Screen MRSA (PCR) Salicylates U Opiates 300ng/mL cut Ur Oxycodone Screen Urine Methadone Screen Acetaminophen Ur Barbiturates Screen U Tricyclic Antidepress Ur Phencyclidine Scrn Ur Amphetamines Screen U Methamphetamines Scrn Ur MDMA Scrn (Ecstasy) U Benzodiazepines Scrn Urine Cocaine Screen U Marijuana (THC) Screen Ethyl Alcohol SARS-CoV-2 (PCR) 05/25/22 05/25/22 05/25/22 10:53 10:53 11:10 WBC RBC Hgb Hct MCV MCH MCHC RDW Plt Count Neut % (Auto) Lymph % (Auto) Wilcox % (Auto) Eos % (Auto) Baso % (Auto) Neut # (Auto) Lymph # (Auto) Wilcox # (Auto) Eos # (Auto) Baso # (Auto) PT INR APTT ABG pH 7.31 L ABG pCO2 71.9 H* ABG pO2 106 H ABG HCO3 36 H ABG Total CO2 38 H ABG O2 Saturation 97 ABG Base Excess 10.0 H VBG pH VBG pCO2 VBG pO2 VBG HCO3 VBG Total CO2 VBG O2 Saturation VBG Base Excess FiO2 32 Sodium Potassium Chloride Carbon Dioxide BUN Creatinine Estimated GFR BUN/Creatinine Ratio Glucose Hemoglobin A1c Lactate Calcium Magnesium Total Bilirubin AST ALT Alkaline Phosphatase Ammonia < 9 L Total Creatine Kinase CK-MB (CK-2) CK-MB (CK-2) Rel Index Troponin I NT-Pro-B Natriuret Pep Total Protein Albumin Globulin Albumin/Globulin Ratio Procalcitonin TSH Prolactin 18.0 Urine Color Urine Appearance Urine pH Ur Specific [place] Urine Protein Urine Glucose (UA) Urine Ketones Urine Occult Blood Urine Nitrate Urine Bilirubin Urine Urobilinogen Ur Leukocyte Esterase Urine RBC Urine WBC Ur Squamous Epith Cells Urine Bacteria Hyaline Casts Ur Culture Indicated? Nasal Screen MRSA (PCR) Salicylates < 1.0 U Opiates 300ng/mL cut Ur Oxycodone Screen Urine Methadone Screen Acetaminophen < 10 Ur Barbiturates Screen U Tricyclic Antidepress Ur Phencyclidine Scrn Ur Amphetamines Screen U Methamphetamines Scrn Ur MDMA Scrn (Ecstasy) U Benzodiazepines Scrn Urine Cocaine Screen U Marijuana (THC) Screen Ethyl Alcohol < 10 SARS-CoV-2 (PCR) 05/25/22 05/25/22 05/25/22 11:50 11:50 12:54 WBC RBC Hgb Hct MCV MCH MCHC RDW Plt Count Neut % (Auto) Lymph % (Auto) Wilcox % (Auto) Eos % (Auto) Baso % (Auto) Neut # (Auto) Lymph # (Auto) Wilcox # (Auto) Eos # (Auto) Baso # (Auto) PT INR APTT ABG pH 7.29 L* ABG pCO2 69.7 H* ABG pO2 78 L ABG HCO3 33 H ABG Total CO2 35 H ABG O2 Saturation 93 L ABG Base Excess 7.0 H VBG pH VBG pCO2 VBG pO2 VBG HCO3 VBG Total CO2 VBG O2 Saturation VBG Base Excess FiO2 30 Sodium Potassium Chloride Carbon Dioxide BUN Creatinine Estimated GFR BUN/Creatinine Ratio Glucose Hemoglobin A1c Lactate Calcium Magnesium Total Bilirubin AST ALT Alkaline Phosphatase Ammonia Total Creatine Kinase CK-MB (CK-2) CK-MB (CK-2) Rel Index Troponin I NT-Pro-B Natriuret Pep Total Protein Albumin Globulin Albumin/Globulin Ratio Procalcitonin TSH Prolactin Urine Color Yellow Urine Appearance Clear Urine pH 7.0 Ur Specific [place] 1.010 Urine Protein 1+ H Urine Glucose (UA) Trace H Urine Ketones Negative Urine Occult Blood 2+ H Urine Nitrate Negative Urine Bilirubin Negative Urine Urobilinogen 0.2 Ur Leukocyte Esterase 1+ H Urine RBC 5-10/hpf H Urine WBC 10-30/hpf H Ur Squamous Epith Cells 1-5 /hpf Urine Bacteria None seen Hyaline Casts 1-5/lpf Ur Culture Indicated? Specimen cultured Nasal Screen MRSA (PCR) Salicylates U Opiates 300ng/mL cut Negative Ur Oxycodone Screen Negative Urine Methadone Screen Negative Acetaminophen Ur Barbiturates Screen Negative U Tricyclic Antidepress Negative Ur Phencyclidine Scrn Negative Ur Amphetamines Screen Negative U Methamphetamines Scrn Negative Ur MDMA Scrn (Ecstasy) Negative U Benzodiazepines Scrn Negative Urine Cocaine Screen Negative U Marijuana (THC) Screen Negative Ethyl Alcohol SARS-CoV-2 (PCR) 05/25/22 05/25/22 05/25/22 15:34 15:34 17:18 WBC RBC Hgb Hct MCV MCH MCHC RDW Plt Count Neut % (Auto) Lymph % (Auto) Wilcox % (Auto) Eos % (Auto) Baso % (Auto) Neut # (Auto) Lymph # (Auto) Wilcox # (Auto) Eos # (Auto) Baso # (Auto) PT INR APTT ABG pH ABG pCO2 ABG pO2 ABG HCO3 ABG Total CO2 ABG O2 Saturation ABG Base Excess VBG pH 7.32 L VBG pCO2 64.1 H VBG pO2 29 L VBG HCO3 33 H VBG Total CO2 35 H VBG O2 Saturation 47 L VBG Base Excess 7.0 H FiO2 30 Sodium 138 Potassium 4.9 Chloride 98 Carbon Dioxide 34 H BUN 53 H Creatinine 3.08 H Estimated GFR 17 L BUN/Creatinine Ratio 17.2 Glucose 115 H Hemoglobin A1c Lactate 1.2 Calcium 9.1 Magnesium Total Bilirubin AST ALT Alkaline Phosphatase Ammonia Total Creatine Kinase 5086 H D CK-MB (CK-2) 17.20 H CK-MB (CK-2) Rel Index 0.3 L Troponin I 0.038 H NT-Pro-B Natriuret Pep Total Protein Albumin Globulin Albumin/Globulin Ratio Procalcitonin TSH Prolactin Urine Color Urine Appearance Urine pH Ur Specific [place] Urine Protein Urine Glucose (UA) Urine Ketones Urine Occult Blood Urine Nitrate Urine Bilirubin Urine Urobilinogen Ur Leukocyte Esterase Urine RBC Urine WBC Ur Squamous Epith Cells Urine Bacteria Hyaline Casts Ur Culture Indicated? Nasal Screen MRSA (PCR) Salicylates U Opiates 300ng/mL cut Ur Oxycodone Screen Urine Methadone Screen Acetaminophen Ur Barbiturates Screen U Tricyclic Antidepress Ur Phencyclidine Scrn Ur Amphetamines Screen U Methamphetamines Scrn Ur MDMA Scrn (Ecstasy) U Benzodiazepines Scrn Urine Cocaine Screen U Marijuana (THC) Screen Ethyl Alcohol SARS-CoV-2 (PCR) 05/25/22 05/25/22 05/26/22 18:08 18:35 05:00 WBC RBC Hgb Hct MCV MCH MCHC RDW Plt Count Neut % (Auto) Lymph % (Auto) Wilcox % (Auto) Eos % (Auto) Baso % (Auto) Neut # (Auto) Lymph # (Auto) Wilcox # (Auto) Eos # (Auto) Baso # (Auto) PT INR APTT ABG pH ABG pCO2 ABG pO2 ABG HCO3 ABG Total CO2 ABG O2 Saturation ABG Base Excess VBG pH VBG pCO2 VBG pO2 VBG HCO3 VBG Total CO2 VBG O2 Saturation VBG Base Excess FiO2 Sodium Potassium Chloride Carbon Dioxide BUN Creatinine Estimated GFR BUN/Creatinine Ratio Glucose Hemoglobin A1c 9.7 H Lactate Calcium Magnesium Total Bilirubin AST ALT Alkaline Phosphatase Ammonia Total Creatine Kinase CK-MB (CK-2) CK-MB (CK-2) Rel Index Troponin I NT-Pro-B Natriuret Pep Total Protein Albumin Globulin Albumin/Globulin Ratio Procalcitonin TSH Prolactin Urine Color Urine Appearance Urine pH Ur Specific [place] Urine Protein Urine Glucose (UA) Urine Ketones Urine Occult Blood Urine Nitrate Urine Bilirubin Urine Urobilinogen Ur Leukocyte Esterase Urine RBC Urine WBC Ur Squamous Epith Cells Urine Bacteria Hyaline Casts Ur Culture Indicated? Nasal Screen MRSA (PCR) Not detected Salicylates U Opiates 300ng/mL cut Ur Oxycodone Screen Urine Methadone Screen Acetaminophen Ur Barbiturates Screen U Tricyclic Antidepress Ur Phencyclidine Scrn Ur Amphetamines Screen U Methamphetamines Scrn Ur MDMA Scrn (Ecstasy) U Benzodiazepines Scrn Urine Cocaine Screen U Marijuana (THC) Screen Ethyl Alcohol SARS-CoV-2 (PCR) Negative 05/26/22 05/26/22 05/26/22 05:00 05:00 05:00 WBC 9.0 RBC 3.70 L Hgb 12.0 Hct 36.6 MCV 98.8 MCH 32.3 MCHC 32.7 RDW 19.4 H Plt Count 175 Neut % (Auto) 90.1 H D Lymph % (Auto) 8.2 L Wilcox % (Auto) 1.3 L Eos % (Auto) 0.1 L Baso % (Auto) 0.3 Neut # (Auto) 8100 H Lymph # (Auto) 700 L Wilcox # (Auto) 100 Eos # (Auto) 0 Baso # (Auto) 0 PT INR APTT ABG pH ABG pCO2 ABG pO2 ABG HCO3 ABG Total CO2 ABG O2 Saturation ABG Base Excess VBG pH VBG pCO2 VBG pO2 VBG HCO3 VBG Total CO2 VBG O2 Saturation VBG Base Excess FiO2 Sodium 139 Potassium 5.0 Chloride 99 Carbon Dioxide 35 H BUN 51 H Creatinine 2.62 H Estimated GFR 20 L BUN/Creatinine Ratio 19.5 Glucose 184 H Hemoglobin A1c Lactate Calcium 9.0 Magnesium 2.2 Total Bilirubin 0.7 AST 100 H ALT 46 H Alkaline Phosphatase 52 Ammonia Total Creatine Kinase 2715 H D CK-MB (CK-2) CK-MB (CK-2) Rel Index Troponin I NT-Pro-B Natriuret Pep Total Protein 7.2 Albumin 3.8 Globulin 3.4 Albumin/Globulin Ratio 1.1 Procalcitonin TSH Prolactin Urine Color Urine Appearance Urine pH Ur Specific [place] Urine Protein Urine Glucose (UA) Urine Ketones Urine Occult Blood Urine Nitrate Urine Bilirubin Urine Urobilinogen Ur Leukocyte Esterase Urine RBC Urine WBC Ur Squamous Epith Cells Urine Bacteria Hyaline Casts Ur Culture Indicated? Nasal Screen MRSA (PCR) Salicylates U Opiates 300ng/mL cut Ur Oxycodone Screen Urine Methadone Screen Acetaminophen Ur Barbiturates Screen U Tricyclic Antidepress Ur Phencyclidine Scrn Ur Amphetamines Screen U Methamphetamines Scrn Ur MDMA Scrn (Ecstasy) U Benzodiazepines Scrn Urine Cocaine Screen U Marijuana (THC) Screen Ethyl Alcohol SARS-CoV-2 (PCR) 05/26/22 08:37 WBC RBC Hgb Hct MCV MCH MCHC RDW Plt Count Neut % (Auto) Lymph % (Auto) Wilcox % (Auto) Eos % (Auto) Baso % (Auto) Neut # (Auto) Lymph # (Auto) Wilcox # (Auto) Eos # (Auto) Baso # (Auto) PT INR APTT ABG pH ABG pCO2 ABG pO2 ABG HCO3 ABG Total CO2 ABG O2 Saturation ABG Base Excess VBG pH 7.30 L VBG pCO2 68.3 H VBG pO2 40 VBG HCO3 33 H VBG Total CO2 35 H VBG O2 Saturation 67 L VBG Base Excess 7.0 H FiO2 30 Sodium Potassium Chloride Carbon Dioxide BUN Creatinine Estimated GFR BUN/Creatinine Ratio Glucose Hemoglobin A1c Lactate Calcium Magnesium Total Bilirubin AST ALT Alkaline Phosphatase Ammonia Total Creatine Kinase CK-MB (CK-2) CK-MB (CK-2) Rel Index Troponin I NT-Pro-B Natriuret Pep Total Protein Albumin Globulin Albumin/Globulin Ratio Procalcitonin TSH Prolactin Urine Color Urine Appearance Urine pH Ur Specific [place] Urine Protein Urine Glucose (UA) Urine Ketones Urine Occult Blood Urine Nitrate Urine Bilirubin Urine Urobilinogen Ur Leukocyte Esterase Urine RBC Urine WBC Ur Squamous Epith Cells Urine Bacteria Hyaline Casts Ur Culture Indicated? Nasal Screen MRSA (PCR) Salicylates U Opiates 300ng/mL cut Ur Oxycodone Screen Urine Methadone Screen Acetaminophen Ur Barbiturates Screen U Tricyclic Antidepress Ur Phencyclidine Scrn Ur Amphetamines Screen U Methamphetamines Scrn Ur MDMA Scrn (Ecstasy) U Benzodiazepines Scrn Urine Cocaine Screen U Marijuana (THC) Screen Ethyl Alcohol SARS-CoV-2 (PCR) Exam Vital Signs (past 8 hours): - 05/26/22 01:59 05/26/22 02:00 05/26/22 02:00 Temperature Pulse Rate 63 Respiratory Rate 29 H Blood Pressure 115/74 Pulse Oximetry 94 Oxygen Delivery Method Oxygen Flow Rate Fraction of Inspired Oxygen 30 05/26/22 02:00 05/26/22 02:15 05/26/22 02:15 Temperature Pulse Rate 64 72 Respiratory Rate 24 26 H Blood Pressure 118/70 Pulse Oximetry 95 94 Oxygen Delivery Method Oxygen Flow Rate Fraction of Inspired Oxygen 05/26/22 02:30 05/26/22 02:30 05/26/22 02:48 Temperature Pulse Rate 61 64 Respiratory Rate 25 H 26 H Blood Pressure 113/78 Pulse Oximetry 94 90 L Oxygen Delivery Method Oxygen Flow Rate Fraction of Inspired Oxygen 05/26/22 02:48 05/26/22 03:00 05/26/22 03:00 Temperature Pulse Rate 67 Respiratory Rate 25 H Blood Pressure 138/61 132/60 Pulse Oximetry 92 Oxygen Delivery Method Oxygen Flow Rate Fraction of Inspired Oxygen 05/26/22 04:00 05/26/22 03:15 05/26/22 03:15 Temperature Pulse Rate 68 Respiratory Rate 23 Blood Pressure 113/59 L Pulse Oximetry 92 Oxygen Delivery Method Nasal Cannula Oxygen Flow Rate Fraction of Inspired Oxygen 05/26/22 03:30 05/26/22 03:30 05/26/22 03:45 Temperature Pulse Rate 67 Respiratory Rate 22 Blood Pressure 108/59 L 113/60 Pulse Oximetry 92 Oxygen Delivery Method Oxygen Flow Rate Fraction of Inspired Oxygen 05/26/22 03:45 05/26/22 04:00 05/26/22 04:00 Temperature Pulse Rate 68 68 Respiratory Rate 25 H 26 H Blood Pressure 110/60 Pulse Oximetry 92 90 L Oxygen Delivery Method Oxygen Flow Rate Fraction of Inspired Oxygen 05/26/22 04:15 05/26/22 04:15 05/26/22 04:30 Temperature Pulse Rate 68 67 Respiratory Rate 28 H 24 Blood Pressure 109/62 Pulse Oximetry 93 92 Oxygen Delivery Method Oxygen Flow Rate Fraction of Inspired Oxygen 05/26/22 04:30 05/26/22 04:45 05/26/22 04:45 Temperature 98.1 F Pulse Rate 67 Respiratory Rate 25 H Blood Pressure 111/61 111/65 Pulse Oximetry 92 Oxygen Delivery Method Oxygen Flow Rate 2 Fraction of Inspired Oxygen 05/26/22 05:00 05/26/22 05:00 05/26/22 05:15 Temperature Pulse Rate 70 Respiratory Rate 33 H Blood Pressure 115/70 118/73 Pulse Oximetry 94 Oxygen Delivery Method Oxygen Flow Rate 2 Fraction of Inspired Oxygen 05/26/22 05:15 05/26/22 05:30 05/26/22 05:30 Temperature Pulse Rate 67 68 Respiratory Rate 35 H 27 H Blood Pressure 117/69 Pulse Oximetry 93 88 L Oxygen Delivery Method Oxygen Flow Rate Fraction of Inspired Oxygen 05/26/22 05:45 05/26/22 05:45 05/26/22 06:00 Temperature Pulse Rate 67 Respiratory Rate 32 H Blood Pressure 116/66 103/57 L Pulse Oximetry 92 Oxygen Delivery Method Oxygen Flow Rate Fraction of Inspired Oxygen 05/26/22 06:00 05/26/22 06:15 05/26/22 06:15 Temperature Pulse Rate 66 65 Respiratory Rate 33 H 26 H Blood Pressure 112/59 L Pulse Oximetry 91 91 Oxygen Delivery Method Oxygen Flow Rate 2 Fraction of Inspired Oxygen 05/26/22 06:30 05/26/22 06:30 05/26/22 06:45 Temperature Pulse Rate 63 Respiratory Rate 22 Blood Pressure 115/72 124/69 Pulse Oximetry 93 Oxygen Delivery Method Oxygen Flow Rate Fraction of Inspired Oxygen 05/26/22 06:45 05/26/22 07:00 05/26/22 07:00 Temperature Pulse Rate 68 66 Respiratory Rate 27 H 25 H Blood Pressure 106/61 Pulse Oximetry 93 92 Oxygen Delivery Method Oxygen Flow Rate Fraction of Inspired Oxygen 05/26/22 07:15 05/26/22 07:15 05/26/22 07:56 Temperature Pulse Rate 66 Respiratory Rate 26 H Blood Pressure 106/57 L Pulse Oximetry 91 Oxygen Delivery Method Nasal Cannula Oxygen Flow Rate Fraction of Inspired Oxygen 05/26/22 07:30 05/26/22 07:30 05/26/22 08:00 Temperature Pulse Rate 66 65 Respiratory Rate 24 25 H Blood Pressure 101/55 L Pulse Oximetry 90 L 91 Oxygen Delivery Method Oxygen Flow Rate Fraction of Inspired Oxygen 05/26/22 08:21 05/26/22 08:04 05/26/22 08:04 Temperature Pulse Rate 66 Respiratory Rate 25 H Blood Pressure 104/58 L Pulse Oximetry 92 Oxygen Delivery Method Oxygen Flow Rate Fraction of Inspired Oxygen 30 05/26/22 08:15 05/26/22 08:15 Temperature Pulse Rate 67 Respiratory Rate 23 Blood Pressure 106/60 Pulse Oximetry 91 Oxygen Delivery Method Oxygen Flow Rate Fraction of Inspired Oxygen Fraction of Inspired Oxygen 30 Oxygen Delivery Method Nasal Cannula Oxygen Flow Rate 2 Quality TeleICU VTE Deep Vein Thrombosis/Pulmonary Embolism Present on Admission: No Assessment & Plan Assessment & Plan narrative: patient seen with bedisde nurse jason discussed at [facility] with Dr. Gillespie 61 year old female admitted to ICU for altered mental status acute resp failure acute renal failure Rhabodymylysis severe sepsis with septic shock, unlcear source pt intubated this am for persistent ams and resp acidosis currentlya febrile,Bp rquiring levopehd creat 2.65, imporoving Ck 2600 improving trop 0.38 abg, pending suggest -neruochecks/siezure precautions -goal RASS -1 -if mental status doesnt improve, consider eeg/mri -meningitis/encephalitis unlikely but can consider LP -vent support, keep TB <6.5cc/kg, keep sat above 88% -solumedrol -check serial ebg/cxr adjust prn -pressors support, goal map 65 -check echo -abx if bp doesn't improve can broaden coveage -cxs -check ruq sono -serial cbc/coags, transfuse prn, goal hgb over 7 -monitor ins/outs, adequate urine output at this time, good response to lasix, hold off further diuretics for now -replace lytes prn -keep glucose 140-180s -gi/dvt ppx -please call eICU if condition changes [facility] time 55 mins d/w Dr. Gillespie, bedside nurse Danelle Time Spent With Patient Critical Care time: I spent a total of [] minutes of critical care time on this patient's care today; this time is exclusive of procedural time.
[2022-05-26] MEDS: fentaNYL 1,000 MCG in DEXTROSE 5% IN WATER 230 ML 23.275 MCG IV ×2 (10:00→19:54)
[2022-05-26] MEDS: propofoL 1,000 MG/100 ML VIAL 3.99 MG IV (10:00)
--- NOTE | 2022-05-26 11:15 | PM.PROC.1 ---
Procedures Date/Time Date of procedure: 05/26/22 Time of procedure: 10:45 Arterial Line Time out performed: Yes Size (Gauge): 18 Technique used: guide wire technique Post-Procedure: line sutured into place Patient tolerated procedure: Well Complications: none Site: left and radial Additional comments: 61 year old female with undifferentiated shock requiring L arterial line. L wrist was prepped and draped in the usual sterile fashion. Ultrasound was used for assistance with locating radial artery. 1st attempt with return of arterial blood, wire was advanced without resistance but once removed no blood returned. Pressure was held, there was no bleeding or hematoma evident on ultrasound. 2nd attempt was successful. Line was sutured into place, with good waveform on monitor. Patient tolerated the procedure well.
[2022-05-26] MEDS: SODIUM CHLORIDE 0.9% FLUSH 10 ML IV ×2 (11:23→21:23)
--- NOTE | 2022-05-26 11:41 | PC.NURSE ---
Addendum entered by Danelle Ulloa R.N. 05/26/22 18:25: Patient's two rings and life alert button in a specimen cup in a biohazard bag with her sticker in her personal belonging bags. Yellow earrings in separate specimen cup and placed in same belongings bag. three belonging bags with patient's belongings. Addendum entered by Danelle Ulloa R.N. 05/26/22 18:18: Per Dr. Gillespie, HR 40 and above acceptable if MAP and blood pressure are within defined parameters. Addendum entered by Danelle Ulloa R.N. 05/26/22 18:16: [address] Gillespie, hold tube feedings until night or AM. Addendum entered by Lakesha Vargas R.N. 05/26/22 14:46: I agree with all documentation and interventions done by this nurse, Lakesha Vargas RN Original Note: Day shift: 07 respiratory therapy unable to obtain ABG. VBG obtained. Results reported to hospitalist and tele actuarial science professor. Anesthesia called for intubation. Anesthesia ready for procedure at 0920. Intubation medications provided by anesthesia, see procedure note for medications and doses. ET tube 21 at the lip at 0928. Ordered sedation started. CXR obtained. ET tube too far per hospitalist. RT pulled back per hospitalist. Second CXR obtained. ET tube in proper placement. Resecured by RT. OG placed and at LIS. Bilateral wrist restraints placed per protocol. Hospitalist in room at [address] arterial line. Arterial line in place and secured at approximately 1045. S[address]s in place. Bed low and locked. Bed alarm active. Call light in place. Will continue to monitor.
--- NOTE | 2022-05-26 12:15 | CM.DANOTE ---
DCP: DCP: Case received, EMR reviewed and met with patient. Introduced self and role. Was able to obtain information regarding patient's baseline activity and needs from Kasey at [facility]. DCP assessment completed with information currently available. Patient is a 61 year old female who admitted yesterday afternoon to the care of the hospitalist team. PCP: Dr. Rodgers Payer: confirmed: [employer]/Medicaid. Patient came to the hospital via ambulance secondary to having generalized weakness, leg tremors, and hypotension. Patient resides at [facility], and is on oxygen at baseline. Patient izaguirre shistory of HTN, diabetes type 2, COPD, CHF, speep apnea. Patient holds diagnosis of undifferentiated shock, sepsis, potential cardiogenic with BLANCA, respiratory failure, acute metabolic encephalopathy, acute on chronic CHF, and BLANCA. Patient had been originally on BIPAP, but is now intubated. Called over at [facility] and spoke to Kasey, in order to get information on baseline care needs at facility. Confirmed that at the facility, she uses no DME, is a stand by assist with showers. She is on oxygen at her baseline. P: DCP to continue to follow. Hospitalist indicated that patient may be intubated for the next couple of days. Will have to see if she is able to return to [facility] versus going to [facility] for short rehab. They may be able to take her under her Medicaid since she is a fpc resident at [facility]. Lili Pierre RN/Casing In Line Feeder Discharge Planning/Care Management CM Discharge Assessment Start: 05/26/22 12:11 Freq: Status: Active Protocol: Document 05/26/22 12:12 (Rec: 05/26/22 12:15 [id number]) Discharge Planning Assessment Assigned Metal Buffer Lili Pierre RN/Casing In Line Feeder Advance Directives? No History Provided By Medical Record Prior Living Arrangements Assisted Living Household Members other Type of transporation used prior to Relies on Others admit Facility Name Admitted From: [facility] Willing to Return to Facility? Would like to get closer to [place]. Independent with ADL's Yes Is patient alert and oriented? Yes Needs Assistance With Bathing,Meal Prep,Managing Medications,Home Chores / Shopping Caregiver for Another No Community Services used prior to Oxygen Therapy admission: Barriers to Discharge No Discharge Plan Home Transportation Arrangement Facility Referrals Initiated None needed Additional Comment Patent is currently intubated Whiteboard Updated in Patient Room with Yes name and ext. # of Metal Buffer Review Status In Process Next Review Type Continued Stay Review
[2022-05-26] MEDS: INSULIN LISPRO 100 UNIT/ML 3ML VIAL SUBCUT ×3 (13:07→21:20)
--- NOTE | 2022-05-26 14:17 | DIET.CONS ---
Dietary Consultation Note Admission Date: 05/25/2022 17:24 Assessment: 61y F admitted with AMS intubated due to hypercapnic respiratory failure with acute renal failure referred to RD for artificial nutrition recommendations via OG tube. Pt with T2DM A1c 9.7 with home meds listed glargine 22U bid, lispro 4U with meals living at [facility]. Pt currently on pressors with MAP in 80s. Cr 2.62, eGFR 20. Pt on 40mcg/kg/min propofol providing 843 calories/d. Plan to keep free water intake low for now per hospitalist. Rec initiation of nutrition support via enteral route. Continuous feeding of Pivot 1.5 via OG tube starting at 10mL/h increasing to goal of 25mL/h as tolerated after 6h. Pt requires 1 packet Prosource protein to be fed daily when new formula is hung. Free water flushes of 80mL q4h. Goal formula and flushes provide 1787kcals (25kcal/kg ABW), 67g PRO (0.9g/kg ABW until renal fxn improves), 103g CHO, 124g fat, 480mL free water flushes with total free fluid intake of 935mL. Please keep HOB elevated >30 degrees at all time. Ht: 160.02 cm Wt: 133 kg (Class 3 obesity) BMI: 51.9 ABW: 72.3kg MNA: 13 Matt Score: 16 Diet: 05/26/22 13:35 NPO Diet Diet Modifications: pt on ventilator NPO Type: Strict Nutrition Percent Meal Consumed 0% 05/26/22 09:00 Patient receiving TPN/PPN/TF Yes: initiating TF 05/26/22 13:43 Type of Feeding Tube NG/OG 05/26/22 13:43 Labs: RBC 3.70 X10^6/uL (4.0-5.2) L 05/26/22 05:00 Hgb 12.0 g/dL (12.0-16.0) 05/26/22 05:00 Hct 36.6 % (36-46) 05/26/22 05:00 Creatinine 2.62 mg/dL (0.52-1.04) H 05/26/22 05:00 Hemoglobin A1c 9.7 % (4.0-6.0) H 05/26/22 05:00 Lactate 1.2 mmol/L (0.7-2.1) 05/25/22 15:34 NT-Pro-B Natriuret Pep 5690 pg/mL (<125) H 05/25/22 09:00 Monitoring/Evaluations: RD f/u Monday am. Pt's feeding rate to change when renal fxn improves and if propofol is reduced. Electronically Signed by: Damaris Aburto 05/26/22 14:17 Clinical Dietitian [address] [address]
[2022-05-26 14:18] LABS: Fractionated Inspired Oxygen 40; HCO3 ABG 29 mmol/L (23-27); Oxygen Saturation ABG 99 % (95-100); PCO2 ABG 38.1 mmHg (35-45); PO2 ABG 125 mmHg (80-100); TCO2 ABG 30 mmol/L (23-27); pH ABG 7.49 (7.35-7.45)
[2022-05-26] MEDS: propofoL 1,000 MG/100 ML VIAL 27.93 MG IV (14:26)
--- NOTE | 2022-05-26 15:23 | PM.PN.1 ---
Subjective Subjective Interval history: Please see event note. Patient became more lethargic, did not improve with BIPAP therapy and was intubated. Gave 20 mg IV lasix with large urine output today, and patient had been diuresing well. A-line placed as well today. Exam Vital Signs (past 8 hours): - 05/26/22 07:56 05/26/22 07:30 05/26/22 07:30 Pulse Rate 66 Respiratory Rate 24 Blood Pressure 101/55 L Pulse Oximetry 90 L Oxygen Delivery Method Nasal Cannula Fraction of Inspired Oxygen 05/26/22 08:00 05/26/22 08:21 05/26/22 08:04 Pulse Rate 65 Respiratory Rate 25 H Blood Pressure 104/58 L Pulse Oximetry 91 Oxygen Delivery Method Fraction of Inspired Oxygen 30 05/26/22 08:04 05/26/22 08:15 05/26/22 08:15 Pulse Rate 66 67 Respiratory Rate 25 H 23 Blood Pressure 106/60 Pulse Oximetry 92 91 Oxygen Delivery Method Fraction of Inspired Oxygen 05/26/22 08:30 05/26/22 08:30 05/26/22 08:45 Pulse Rate 63 Respiratory Rate 25 H Blood Pressure 113/63 103/60 Pulse Oximetry 93 Oxygen Delivery Method Fraction of Inspired Oxygen 05/26/22 08:45 05/26/22 09:00 05/26/22 09:00 Pulse Rate 56 L 60 Respiratory Rate 26 H 27 H Blood Pressure 114/66 Pulse Oximetry 93 93 Oxygen Delivery Method Fraction of Inspired Oxygen 05/26/22 09:15 05/26/22 09:15 05/26/22 09:29 Pulse Rate 61 Respiratory Rate 25 H Blood Pressure 114/65 114/67 Pulse Oximetry 92 Oxygen Delivery Method Fraction of Inspired Oxygen 05/26/22 09:29 05/26/22 09:30 05/26/22 09:30 Pulse Rate 63 62 Respiratory Rate 29 H 24 Blood Pressure 123/72 Pulse Oximetry 98 99 Oxygen Delivery Method Fraction of Inspired Oxygen 05/26/22 09:35 05/26/22 09:35 05/26/22 09:40 Pulse Rate 58 L Respiratory Rate 18 Blood Pressure 125/76 132/73 Pulse Oximetry 99 Oxygen Delivery Method Fraction of Inspired Oxygen 05/26/22 09:40 05/26/22 09:45 05/26/22 09:45 Pulse Rate 62 59 L Respiratory Rate 19 19 Blood Pressure 121/72 Pulse Oximetry 97 97 Oxygen Delivery Method Fraction of Inspired Oxygen 05/26/22 09:50 05/26/22 09:50 05/26/22 09:55 Pulse Rate 55 L 57 L Respiratory Rate 21 22 Blood Pressure 123/74 Pulse Oximetry 98 99 Oxygen Delivery Method Fraction of Inspired Oxygen 05/26/22 09:55 05/26/22 10:00 05/26/22 10:00 Pulse Rate 54 L Respiratory Rate 7 L Blood Pressure 124/73 130/75 Pulse Oximetry 99 Oxygen Delivery Method Fraction of Inspired Oxygen 05/26/22 10:05 05/26/22 10:05 05/26/22 10:11 Pulse Rate 52 L Respiratory Rate 8 L Blood Pressure 141/67 H 144/75 H Pulse Oximetry 98 Oxygen Delivery Method Fraction of Inspired Oxygen 05/26/22 10:11 05/26/22 10:15 05/26/22 10:15 Pulse Rate 54 L 51 L Respiratory Rate 19 18 Blood Pressure 138/72 Pulse Oximetry 98 98 Oxygen Delivery Method Fraction of Inspired Oxygen 05/26/22 10:25 05/26/22 10:25 05/26/22 10:30 Pulse Rate 48 L Respiratory Rate 18 Blood Pressure 116/78 109/74 Pulse Oximetry 98 Oxygen Delivery Method Fraction of Inspired Oxygen 05/26/22 10:30 05/26/22 10:35 05/26/22 10:35 Pulse Rate 47 L 46 L Respiratory Rate 18 18 Blood Pressure 107/71 Pulse Oximetry 99 99 Oxygen Delivery Method Fraction of Inspired Oxygen 05/26/22 10:40 05/26/22 10:40 05/26/22 10:45 Pulse Rate 46 L Respiratory Rate 18 Blood Pressure 112/73 111/71 Pulse Oximetry 99 Oxygen Delivery Method Fraction of Inspired Oxygen 05/26/22 10:45 05/26/22 10:50 05/26/22 10:50 Pulse Rate 48 L 50 L Respiratory Rate 18 18 Blood Pressure 114/73 Pulse Oximetry 99 98 Oxygen Delivery Method Fraction of Inspired Oxygen 05/26/22 13:23 05/26/22 10:55 05/26/22 10:55 Pulse Rate 49 L Respiratory Rate 18 Blood Pressure 118/73 Pulse Oximetry 98 Oxygen Delivery Method Mechanical Ventilation Fraction of Inspired Oxygen 05/26/22 11:00 05/26/22 11:00 05/26/22 11:05 Pulse Rate 49 L Respiratory Rate 18 Blood Pressure 118/70 116/65 Pulse Oximetry 98 Oxygen Delivery Method Fraction of Inspired Oxygen 05/26/22 11:05 05/26/22 11:10 05/26/22 11:10 Pulse Rate 51 L 69 Respiratory Rate 18 18 Blood Pressure 108/62 Pulse Oximetry 98 97 Oxygen Delivery Method Fraction of Inspired Oxygen 05/26/22 11:15 05/26/22 11:15 05/26/22 12:00 Pulse Rate 69 Respiratory Rate 18 Blood Pressure 103/62 140/76 Pulse Oximetry 96 Oxygen Delivery Method Fraction of Inspired Oxygen 05/26/22 12:00 05/26/22 13:00 05/26/22 13:00 Pulse Rate 62 64 Respiratory Rate 17 16 Blood Pressure 124/66 Pulse Oximetry 96 95 Oxygen Delivery Method Fraction of Inspired Oxygen 05/26/22 14:00 05/26/22 14:00 05/26/22 15:00 Pulse Rate 50 L Respiratory Rate 16 Blood Pressure 115/62 117/65 Pulse Oximetry 95 Oxygen Delivery Method Fraction of Inspired Oxygen 05/26/22 15:00 Pulse Rate 51 L Respiratory Rate 16 Blood Pressure Pulse Oximetry 95 Oxygen Delivery Method Fraction of Inspired Oxygen Fraction of Inspired Oxygen 30 Oxygen Delivery Method Mechanical Ventilation Oxygen Flow Rate 2 Narrative Exam Narrative: General:?Obese female, acutely ill appearing, lethargic on bipap HEENT:? Normocephalic, atraumatic, extraocular muscles intact, oral pharynx is clear and mucous membranes are moist. Neck: supple and symmetric, trachea is midline, no cervical adenopathy. + JVD Chest:? Normal AP diameter and contour without kyphoscoliosis, no tachypnea, equal chest rise bilaterally. Lungs:? Bibasilar crackles Cardio:?RRR no m/r/g. Abdomen: S NT ND. Musculoskeletal:? Muscle strength and tone are equal within normal limits, no deformity. Extremities: 2-3 + peripheral edema with chronic venous stasis changes, no erythema or warmth. No joint effusions. Compartments are soft. Skin:? Pale,? Warm to touch,dry and intact without rashes, ulcerations or petechiae.? Neuro:? orientated to self and hospital but falling asleep easily,?sensation to touch intact in all extremities, no gross deficits noted of cranial nerves. Objective Labs 05/26/22 05:00 05/26/22 05:00 Labs: Laboratory Results - last 24 hr 05/25/22 05/25/22 05/25/22 15:34 15:34 17:18 WBC RBC Hgb Hct MCV MCH MCHC RDW Plt Count Neut % (Auto) Lymph % (Auto) [place] % (Auto) Eos % (Auto) Baso % (Auto) Neut # (Auto) Lymph # (Auto) [place] # (Auto) Eos # (Auto) Baso # (Auto) ABG pH ABG pCO2 ABG pO2 ABG HCO3 ABG Total CO2 ABG O2 Saturation ABG Base Excess VBG pH 7.32 L VBG pCO2 64.1 H VBG pO2 29 L VBG HCO3 33 H VBG Total CO2 35 H VBG O2 Saturation 47 L VBG Base Excess 7.0 H FiO2 30 Sodium 138 Potassium 4.9 Chloride 98 Carbon Dioxide 34 H BUN 53 H Creatinine 3.08 H Estimated GFR 17 L BUN/Creatinine Ratio 17.2 Glucose 115 H Hemoglobin A1c Lactate 1.2 Calcium 9.1 Magnesium Total Bilirubin AST ALT Alkaline Phosphatase Total Creatine Kinase 5086 H D CK-MB (CK-2) 17.20 H CK-MB (CK-2) Rel Index 0.3 L Troponin I 0.038 H Total Protein Albumin Globulin Albumin/Globulin Ratio Nasal Screen MRSA (PCR) SARS-CoV-2 (PCR) 05/25/22 05/25/22 05/26/22 18:08 18:35 05:00 WBC RBC Hgb Hct MCV MCH MCHC RDW Plt Count Neut % (Auto) Lymph % (Auto) [place] % (Auto) Eos % (Auto) Baso % (Auto) Neut # (Auto) Lymph # (Auto) [place] # (Auto) Eos # (Auto) Baso # (Auto) ABG pH ABG pCO2 ABG pO2 ABG HCO3 ABG Total CO2 ABG O2 Saturation ABG Base Excess VBG pH VBG pCO2 VBG pO2 VBG HCO3 VBG Total CO2 VBG O2 Saturation VBG Base Excess FiO2 Sodium Potassium Chloride Carbon Dioxide BUN Creatinine Estimated GFR BUN/Creatinine Ratio Glucose Hemoglobin A1c 9.7 H Lactate Calcium Magnesium Total Bilirubin AST ALT Alkaline Phosphatase Total Creatine Kinase CK-MB (CK-2) CK-MB (CK-2) Rel Index Troponin I Total Protein Albumin Globulin Albumin/Globulin Ratio Nasal Screen MRSA (PCR) Not detected SARS-CoV-2 (PCR) Negative 05/26/22 05/26/22 05/26/22 05:00 05:00 05:00 WBC 9.0 RBC 3.70 L Hgb 12.0 Hct 36.6 MCV 98.8 MCH 32.3 MCHC 32.7 RDW 19.4 H Plt Count 175 Neut % (Auto) 90.1 H D Lymph % (Auto) 8.2 L [place] % (Auto) 1.3 L Eos % (Auto) 0.1 L Baso % (Auto) 0.3 Neut # (Auto) 8100 H Lymph # (Auto) 700 L [place] # (Auto) 100 Eos # (Auto) 0 Baso # (Auto) 0 ABG pH ABG pCO2 ABG pO2 ABG HCO3 ABG Total CO2 ABG O2 Saturation ABG Base Excess VBG pH VBG pCO2 VBG pO2 VBG HCO3 VBG Total CO2 VBG O2 Saturation VBG Base Excess FiO2 Sodium 139 Potassium 5.0 Chloride 99 Carbon Dioxide 35 H BUN 51 H Creatinine 2.62 H Estimated GFR 20 L BUN/Creatinine Ratio 19.5 Glucose 184 H Hemoglobin A1c Lactate Calcium 9.0 Magnesium 2.2 Total Bilirubin 0.7 AST 100 H ALT 46 H Alkaline Phosphatase 52 Total Creatine Kinase 2715 H D CK-MB (CK-2) CK-MB (CK-2) Rel Index Troponin I Total Protein 7.2 Albumin 3.8 Globulin 3.4 Albumin/Globulin Ratio 1.1 Nasal Screen MRSA (PCR) SARS-CoV-2 (PCR) 05/26/22 05/26/22 08:37 11:50 WBC RBC Hgb Hct MCV MCH MCHC RDW Plt Count Neut % (Auto) Lymph % (Auto) [place] % (Auto) Eos % (Auto) Baso % (Auto) Neut # (Auto) Lymph # (Auto) [place] # (Auto) Eos # (Auto) Baso # (Auto) ABG pH 7.49 H ABG pCO2 38.1 ABG pO2 125 H ABG HCO3 29 H ABG Total CO2 30 H ABG O2 Saturation 99 ABG Base Excess 6.0 H VBG pH 7.30 L VBG pCO2 68.3 H VBG pO2 40 VBG HCO3 33 H VBG Total CO2 35 H VBG O2 Saturation 67 L VBG Base Excess 7.0 H FiO2 30 40 Sodium Potassium Chloride Carbon Dioxide BUN Creatinine Estimated GFR BUN/Creatinine Ratio Glucose Hemoglobin A1c Lactate Calcium Magnesium Total Bilirubin AST ALT Alkaline Phosphatase Total Creatine Kinase CK-MB (CK-2) CK-MB (CK-2) Rel Index Troponin I Total Protein Albumin Globulin Albumin/Globulin Ratio Nasal Screen MRSA (PCR) SARS-CoV-2 (PCR) [facility] Medical History (Updated 05/25/22 @ 19:18 by Jayne Muhammad DO) Chronic hypoxemic respiratory failure COPD (chronic obstructive pulmonary disease) DM2 (diabetes mellitus, type 2) HTN (hypertension) Obesity PONCE (obstructive sleep apnea) Systolic and diastolic CHF, chronic Thyroiditis Surgical History (Updated 05/25/22 @ 18:30 by Esteban Gillespie DO) S/P hernia surgery Family History (Updated 05/25/22 @ 18:31 by Esteban Gillespie DO) Mother No pertinent past medical history Father No pertinent past medical history Social History household members: other Smoking Status: Former smoker Assessment & Plan Assessment & Plan narrative: 1. Acute hypercapnic on chronic hypercapnic and hypoxemic respiratory failure - initially tolerated bipap well with improvement in mental status, placed on nasal cannula with worsening lethargy this AM. Trialed bipap for 1 hour but without much improvement. Proceeded with intubation. Remained hypercarbic despite bipap. - tele ICU consultation appreciated. - started steroids for COPD exacerbation - RT eval and treat, nebulizers ordered. - diurese prn depending on BP, volume status. gave 20 mg IV lasix x1 today. TTE with EF 20-25%, global hypokinesis. Unknown previous EF at this time. 2. Undifferentiated shock, presume septic but possible cardiogenic with BLANCA, respiratory failure, acute metabolic encephalopathy - continue ceftriaxone for now for acute cystitis, doubt cholecystitis with no abdominal pain, more likely is edematous due to volume overload and heart failure. Will add flagyl today with continued encephalopathy and ultrasound findings but continue to doubt cholecystitis. Consider general surgery consultation. - TTE as noted above - given gross overload on exam, but also rhabdomyolysis with elevated CK will not give fluid or diurese as discussed above. 3. Acute on chronic systolic and diastolic heart failure - diurese prn as discussed above. S/p 20 mg IV lasix today. - follow intake and output, goal net negative 1-2 L per day. 4. BLANCA on likely CKD - probably in setting of sepsis / shock 5. Non-traumatic rhabdomyolysis - unclear etiology, was possibly resting for a while at assisting living facility? Consider seizure with uncontrolled tremors reported on transfer paperwork from assisted living facility. - monitor Intake and output closely with philippe catheter - improving today with CK to 2000 from 5000. 6. Myocardial injury - improved troponin in the ER, no EKG findings concerning for ischemia 7. COPD with exacerbation - started steroids - continue duonebs, prn albuterol. RT eval and treat 8. DM 2 - continue half home insulin with 10 Units lantus at night - sliding scale for now. - if tube feedings will need to continue to adjust. I have utilized all available immediate resources to obtain, update, or review the patient's current medications. Code: Full, surrogate is patient's daughter as discussed with patient. DVT: lovenox renal dosing 30 mg daily Dispo: Admit to ICU I spent 60 minutes providing critical care management this patient. This excludes time spent in performing separately billed procedures. COVID-19 COVID-19 status: Negative Time Spent With Patient Critical Care time: I spent a total of [] minutes of critical care time on this patient's care today; this time is exclusive of procedural time. Quality VTE Deep Vein Thrombosis/Pulmonary Embolism Present on Admission: No
[2022-05-26] MEDS: metroNIDAZOLE 500 MG/100 ML PIGGYBACK 100 MG IV ×2 (15:43→23:44)
[2022-05-26] MEDS: propofoL 1,000 MG/100 ML VIAL 19.95 MG IV (15:57)
[2022-05-26] MEDS: NYSTATIN POWDER 15GM 1 APPLIC TOP (18:27)
[2022-05-26] MEDS: cefTRIAXone 1,000 MG in SODIUM CHLORIDE 0.9% 100 ML 200 MG IV (18:28)
--- NOTE | 2022-05-26 20:30 | PM.ICURNDS ---
- Date Patient Seen: 05/26/22 Time Patient Seen: 20:30 :: This patient was seen via real time interactive two-way audiovisual telecommunication. Note: patient seen no acute since intubation minimize levo dose adequate urr output suggest to minimize sedation
[2022-05-26] MEDS: INSULIN GLARGINE 100 UNIT/ML 3ML PEN 10 UNIT SUBCUT (21:19)
[2022-05-26] MEDS: propofoL 1,000 MG/100 ML VIAL 7.98 MG IV (21:34)
[2022-05-26] MEDS: HEPARIN 5,000 UNIT/ML VIAL 7500 UNIT SUBCUT (21:34)
[2022-05-27] VITALS (92 sets, daily range): BP systolic 102–134; BP diastolic 53–89; PULSE 48–84; RESP 16–27; TEMP 36.1–37.1; O2SAT 90–98
[2022-05-27] MEDS: INSULIN LISPRO 100 UNIT/ML 3ML VIAL SUBCUT ×4 (03:12→21:37)
[2022-05-27] MEDS: propofoL 1,000 MG/100 ML VIAL 6.384 MG IV ×2 (04:11→18:18)
[2022-05-27 04:28] LABS: Add Manual Diff / Slide Review NO; Basophils Absolute Auto 0 /uL (0-100); Basophils Percent Auto 0.1 % (0-2); Eosinophils Absolute Auto 0 /uL (0-450); Hematocrit 35.3 % (36-46); Hemoglobin 11.6 g/dL (12.0-16.0); Lymphocytes Absolute Auto 700 /uL (1100-4500); Lymphocytes Percent Auto 6.9 % (25-40); Mean Corpuscular Hemoglobin 31.9 PG (26-34); Mean Corpuscular Volume 96.7 fL (80-100); Monocytes Absolute Auto 400 /uL (0-900); Neutrophils Absolute Auto 8400 /uL (1500-7000); Platelet Count 205 X10^3/uL (150-400); Red Blood Cell Count 3.65 X10^6/uL (4.0-5.2); Red Cell Distribution Width 19.3 % (11.6-14.8); White Blood Cell Count 9.4 X10^3/uL (4.5-11.0)
[2022-05-27 04:33] LABS: Alanine Aminotransferase 40 IU/L (<35); Albumin 3.6 g/dL (3.5-5.0); Albumin Globulin Ratio 1.1 (1.0-2.8); Alkaline Phosphatase 52 U/L (38-126); Aspartate Aminotransferase 44 IU/L (14-36); BUN Creatinine Ratio 24.5 (6-22); Bilirubin Total 0.6 mg/dL (0.2-1.3); Blood Urea Nitrogen 51 mg/dL (7-17); Calcium 9.1 mg/dL (8.4-10.2); Carbon Dioxide 31 mmol/L (22-32); Chloride 97 mmol/L (98-107); Estimated Glomerular Filt Rate 27 mL/min (>60); Globulin 3.3 g/dL (1.7-4.1); Glucose 277 mg/dL (80-110); HEMOLYSIS < 15 (0-50); Magnesium 2.1 mg/dL (1.6-2.3); Potassium 4.3 mmol/L (3.4-5.1); Sodium 137 mmol/L (137-145); Total Protein 6.9 g/dL (6.3-8.2)
[2022-05-27 04:34] LABS: Creatine Kinase 693 U/L (30-135)
[2022-05-27] MEDS: HEPARIN 5,000 UNIT/ML VIAL 7500 UNIT SUBCUT ×3 (05:49→21:36)
[2022-05-27] MEDS: fentaNYL 1,000 MCG in DEXTROSE 5% IN WATER 230 ML 26.6 MCG IV ×2 (05:49→17:13)
[2022-05-27 06:03] LABS: PCO2 ABG 39.8 mmHg (35-45); PO2 ABG 92 mmHg (80-100); pH ABG 7.53 (7.35-7.45)
[2022-05-27 06:04] LABS: Fractionated Inspired Oxygen 40; HCO3 ABG 33 mmol/L (23-27); Oxygen Saturation ABG 98 % (95-100)
--- NOTE | 2022-05-27 06:30 | PC.NURSE ---
Crm Manager Note-Patient is on ventilator FIO2 40% TV 370 RR 16 PEEP 5, SpO2 92-96%. Propofol titrated down from 20mcg/kg /min to 5mcg, patient became anxious, now at 8mcg/min. Fentanyl at 0.8mcg/kg/hr. She rouses, makes eye contact and follows simple directions. Attempted to titrate Levophed off, but remains at 1mcg/min to keep MAP > 65. A-line patent. SB/SR, 1st AVB, BBB, HR 47 at lowest.
--- NOTE | 2022-05-27 07:21 | PM.PN.1 ---
Subjective Subjective Interval history: 61-year-old female with hypertension, class 3 obesity COPD with chronic hypoxic respiratory failure on 2 L at baseline, hyperlipidemia, obstructive sleep apnea, combined systolic and diastolic congestive heart failure, and thyroiditis who was initially admitted on 05/25/2022 with acute respiratory failure, BLANCA, presumed septic shock, and rhabdomyolysis. She had worsening respiratory failure yesterday in conjunction with increasing lethargy and required intubation/mechanical ventilation. He continues on Levophed 1 mcg/min, propofol 8 mcg/kg/min, fentanyl 0.8 mcg/kg/min. Patient briefly opens her eyes but is non communicative. Exam Vital Signs (past 8 hours): - 05/26/22 23:30 05/26/22 23:32 05/26/22 23:32 Temperature Pulse Rate 64 65 Respiratory Rate 26 H 22 Blood Pressure 102/59 L Pulse Oximetry 100 97 Oxygen Delivery Method 05/26/22 23:45 05/27/22 00:00 05/27/22 00:00 Temperature 97.0 F L Pulse Rate 53 L 57 L Respiratory Rate 16 20 Blood Pressure 107/55 L Pulse Oximetry 94 97 Oxygen Delivery Method 05/27/22 00:00 05/27/22 00:15 05/27/22 00:30 Temperature Pulse Rate 51 L 49 L Respiratory Rate 16 16 Blood Pressure Pulse Oximetry 95 96 Oxygen Delivery Method Mechanical Ventilation 05/27/22 00:45 05/27/22 01:00 05/27/22 01:00 Temperature Pulse Rate 49 L 49 L Respiratory Rate 16 16 Blood Pressure 106/54 L Pulse Oximetry 96 95 Oxygen Delivery Method 05/27/22 01:15 05/27/22 01:30 05/27/22 01:45 Temperature Pulse Rate 49 L 49 L 49 L Respiratory Rate 16 16 16 Blood Pressure Pulse Oximetry 96 95 95 Oxygen Delivery Method 05/27/22 02:00 05/27/22 02:00 05/27/22 02:15 Temperature Pulse Rate 49 L 50 L Respiratory Rate 16 16 Blood Pressure 106/57 L Pulse Oximetry 95 95 Oxygen Delivery Method 05/27/22 02:30 05/27/22 02:45 05/27/22 03:00 Temperature Pulse Rate 50 L 48 L Respiratory Rate 16 16 Blood Pressure 111/58 L Pulse Oximetry 92 94 Oxygen Delivery Method 05/27/22 03:00 05/27/22 03:15 05/27/22 03:30 Temperature Pulse Rate 49 L 49 L 49 L Respiratory Rate 16 16 16 Blood Pressure Pulse Oximetry 95 96 96 Oxygen Delivery Method 05/27/22 03:45 05/27/22 04:00 05/27/22 04:00 Temperature 97.3 F L Pulse Rate 49 L 49 L Respiratory Rate 16 16 Blood Pressure 113/57 L Pulse Oximetry 96 95 Oxygen Delivery Method 05/27/22 04:15 05/27/22 04:00 05/27/22 04:30 Temperature Pulse Rate 49 L 49 L Respiratory Rate 17 16 Blood Pressure Pulse Oximetry 95 96 Oxygen Delivery Method Mechanical Ventilation 05/27/22 04:45 05/27/22 05:00 05/27/22 05:00 Temperature Pulse Rate 50 L 48 L Respiratory Rate 16 16 Blood Pressure 109/56 L Pulse Oximetry 96 96 Oxygen Delivery Method 05/27/22 05:15 05/27/22 05:30 05/27/22 05:45 Temperature Pulse Rate 48 L 49 L 56 L Respiratory Rate 16 16 17 Blood Pressure Pulse Oximetry 96 96 96 Oxygen Delivery Method 05/27/22 06:00 05/27/22 06:08 05/27/22 06:08 Temperature Pulse Rate 52 L 51 L Respiratory Rate 21 16 Blood Pressure 133/69 Pulse Oximetry 97 97 Oxygen Delivery Method 05/27/22 06:15 05/27/22 06:30 05/27/22 06:45 Temperature Pulse Rate 48 L 49 L 48 L Respiratory Rate 16 16 16 Blood Pressure Pulse Oximetry 96 96 96 Oxygen Delivery Method 05/27/22 07:00 05/27/22 07:00 Temperature Pulse Rate 48 L Respiratory Rate 16 Blood Pressure 128/71 Pulse Oximetry 97 Oxygen Delivery Method Fraction of Inspired Oxygen 30 Oxygen Delivery Method Mechanical Ventilation Oxygen Flow Rate 2 Narrative Exam Narrative: GEN: Intubated, sedated drowsy but opens eyes, NAD HEENT:NC, Face symmetric CHEST: Respiratory excursions symmetric, diminished but CTAB in the anterior lung paz CV: Bradycardic with regular rhythm, somewhat diminished heart sounds (suspect secondary to BMI rather than muffled heart sounds) ABD: Soft, obese, NT/ND, BT present in all 4 quadrants, nonreducible ventral hernia, skin in the pannus folds reveals evidence of chronic candidiasis EXTR: warm, well perfused, no C/C/E SKIN: warm and dry, no rash NEURO: Nonfocal Objective Labs 05/27/22 04:00 05/27/22 17:56 Labs: Laboratory Results - last 24 hr 05/26/22 05/26/22 05/26/22 05:00 08:37 11:50 WBC RBC Hgb Hct MCV MCH MCHC RDW Plt Count Neut % (Auto) Lymph % (Auto) [place] % (Auto) Eos % (Auto) Baso % (Auto) Neut # (Auto) Lymph # (Auto) [place] # (Auto) Eos # (Auto) Baso # (Auto) ABG pH 7.49 H ABG pCO2 38.1 ABG pO2 125 H ABG HCO3 29 H ABG Total CO2 30 H ABG O2 Saturation 99 ABG Base Excess 6.0 H VBG pH 7.30 L VBG pCO2 68.3 H VBG pO2 40 VBG HCO3 33 H VBG Total CO2 35 H VBG O2 Saturation 67 L VBG Base Excess 7.0 H FiO2 30 40 Sodium Potassium Chloride Carbon Dioxide BUN Creatinine Estimated GFR BUN/Creatinine Ratio Glucose Calcium Magnesium Total Bilirubin AST ALT Alkaline Phosphatase Total Creatine Kinase 2715 H D Total Protein Albumin Globulin Albumin/Globulin Ratio 05/27/22 05/27/22 05/27/22 04:00 04:00 04:00 WBC 9.4 RBC 3.65 L Hgb 11.6 L Hct 35.3 L MCV 96.7 MCH 31.9 MCHC 33.0 RDW 19.3 H Plt Count 205 Neut % (Auto) 89.0 H Lymph % (Auto) 6.9 L [place] % (Auto) 4.0 Eos % (Auto) 0.0 L Baso % (Auto) 0.1 Neut # (Auto) 8400 H Lymph # (Auto) 700 L [place] # (Auto) 400 Eos # (Auto) 0 Baso # (Auto) 0 ABG pH ABG pCO2 ABG pO2 ABG HCO3 ABG Total CO2 ABG O2 Saturation ABG Base Excess VBG pH VBG pCO2 VBG pO2 VBG HCO3 VBG Total CO2 VBG O2 Saturation VBG Base Excess FiO2 Sodium 137 Potassium 4.3 Chloride 97 L Carbon Dioxide 31 BUN 51 H Creatinine 2.08 H Estimated GFR 27 L BUN/Creatinine Ratio 24.5 H Glucose 277 H Calcium 9.1 Magnesium 2.1 Total Bilirubin 0.6 AST 44 H ALT 40 H Alkaline Phosphatase 52 Total Creatine Kinase 693 H D Total Protein 6.9 Albumin 3.6 Globulin 3.3 Albumin/Globulin Ratio 1.1 05/27/22 05:28 WBC RBC Hgb Hct MCV MCH MCHC RDW Plt Count Neut % (Auto) Lymph % (Auto) [place] % (Auto) Eos % (Auto) Baso % (Auto) Neut # (Auto) Lymph # (Auto) [place] # (Auto) Eos # (Auto) Baso # (Auto) ABG pH 7.53 H ABG pCO2 39.8 ABG pO2 92 ABG HCO3 33 H ABG Total CO2 25 ABG O2 Saturation 98 ABG Base Excess 11.0 H VBG pH VBG pCO2 VBG pO2 VBG HCO3 VBG Total CO2 VBG O2 Saturation VBG Base Excess FiO2 40 Sodium Potassium Chloride Carbon Dioxide BUN Creatinine Estimated GFR BUN/Creatinine Ratio Glucose Calcium Magnesium Total Bilirubin AST ALT Alkaline Phosphatase Total Creatine Kinase Total Protein Albumin Globulin Albumin/Globulin Ratio PFS Medical History (Updated 05/25/22 @ 19:18 by Jayne Muhammad DO) Chronic hypoxemic respiratory failure COPD (chronic obstructive pulmonary disease) DM2 (diabetes mellitus, type 2) HTN (hypertension) Obesity PONCE (obstructive sleep apnea) Systolic and diastolic CHF, chronic Thyroiditis Surgical History (Updated 05/25/22 @ 18:30 by Esteban Gillespie DO) S/P hernia surgery Family History (Updated 05/25/22 @ 18:31 by Esteban Gillespie DO) Mother No pertinent past medical history Father No pertinent past medical history Social History household members: other Smoking Status: Former smoker Assessment & Plan Assessment & Plan narrative: 1. Acute on chronic hypoxic respiratory failure Patient remains intubated/sedated. Spontaneous breathing trial to be performed today. Appreciate tele ICU consultation. Plans to increase tidal volume and decrease respiratory rate as she was somewhat alkalotic this morning. Continues on steroids for COPD exacerbation. Lungs are clear today. Diuresis being held due to her hypotension requiring Levophed. 2. Undifferentiated shock, presumed septic but possibly cardiogenic As noted, patient remains on low-dose of Levophed this morning. Continue working towards discontinuing it as tolerated. Remains on empiric antibiotics with Rocephin and Flagyl. 3. Acute on chronic combined systolic and diastolic congestive heart failure She did receive a dose of furosemide IV yesterday. However, given her hypotension and BLANCA, further diuresis has been held. 4. BLANCA in the setting of likely chronic kidney disease Mildly improved today. Creatinine is down to 2.08 from 2.62. 5. Nontraumatic rhabdomyolysis LFTs are improving. CK is down. Rhabdomyolysis appears to be gradually improving/resolving. 6. Acute myocardial injury Initial troponin was 0.052 in the emergency department. On follow-up it was 0.038. Given the downtrend, no further intervention planned. 7. COPD with exacerbation Continue Solu-Medrol. Remains on DuoNebs and as needed albuterol as well. 8. Diabetes mellitus type 2 Hemoglobin A1c 9.7% on admission. Typically on Lantus 20 units at HS. Was placed on 10 units here with sliding scale. Tube feeds have not yet been initiated. Will defer increasing Lantus until that has been accomplished. However, blood sugars have been in the 200s in the past 24 hours and she will likely benefit from fairly rapid escalation particularly in light of IV steroids. 9. Class 3 obesity BMI is 50.5. Obesity significantly increases her risk for morbidity mortality. Code status Full Prophylaxis On Lovenox. Is receiving renal dosing, but may need b.i.d. dosing based on her BMI Disposition Intensive care unit Time Spent With Patient Critical Care time: I spent a total of [] minutes of critical care time on this patient's care today; this time is exclusive of procedural time. Quality VTE Deep Vein Thrombosis/Pulmonary Embolism Present on Admission: No
[2022-05-27] MEDS: ALBUTEROL/IPRATROPIUM 3 ML AMPUL INH ×3 (07:33→19:08)
[2022-05-27] MEDS: metroNIDAZOLE 500 MG/100 ML PIGGYBACK 100 MG IV ×3 (08:28→23:42)
[2022-05-27] MEDS: SODIUM CHLORIDE 0.9% FLUSH 10 ML IV ×2 (08:40→20:54)
[2022-05-27] MEDS: LIDOCAINE PATCH 1 EACH ADH..PATCH TOP (08:52)
--- NOTE | 2022-05-27 09:30 | CM.DPC ---
DCP Cont: Patient is still intubated at this time. Called Ursula over at [facility] and asked her to review, in case Radha feels that she may need skilled rehab before returning there. Let Ursula know that she is [employer]/Med[employer], but asked to see if she can look into it, since they are the sister company. Ursula will review patient and insurance. P: DCP to continue to follow. Patient not medically stable, could potentially return to [place] when stable, but asked Ursula at [facility] to review as back up with her [employer]. Lili Pierre RN/Hydraulic Design Engineer
--- NOTE | 2022-05-27 09:41 | P.TELICUPN_ITS ---
Subjective Subjective IF CAMERA ACTIVATED, patient seen via real-time interactive audiovisual communication: Camera activated Consent obtained for tele-interactive art director care: Yes Patient Location: ICU Provider location (State): [place] Other participants/roles: Dr. Donald, Bedside Nurse Interval history: no acute events overnight. pt alert awake follows commands off prssors Current Medications Current Medications Medications: Home Medications acetaminophen 325 mg tablet (Tylenol) 650 mg PO TID 05/25/22 [History Confirmed 05/25/22] albuterol sulfate 90 mcg/actuation aerosol inhaler 4 puff inhalation Q4H PRN Wheezing 05/25/22 [History Confirmed 05/25/22] aspirin 81 mg tablet,delayed release 81 mg PO DAILY 05/25/22 [History Confirmed 05/25/22] budesonide-formoterol HFA 160 mcg-4.5 mcg/actuation aerosol inhaler 2 puff inhalation Q4H PRN Wheezing 05/25/22 [History Confirmed 05/25/22] bupropion HCl 150 mg tablet,12 hr sustained-release 150 mg PO BEDTIME 05/25/22 [History Confirmed 05/25/22] carvedilol 3.125 mg tablet 3.125 mg PO BID 05/25/22 [History Confirmed 05/25/22] cyanocobalamin (vitamin B-12) 500 mcg tablet 500 mcg PO DAILY 05/25/22 [History Confirmed 05/25/22] fenofibrate 160 mg tablet 160 mg PO DAILY 05/25/22 [History Confirmed 05/25/22] ferrous sulfate 325 mg (65 mg iron) tablet 325 mg PO DAILY 05/25/22 [History Confirmed 05/25/22] fluoxetine 20 mg tablet 20 mg PO DAILY 05/25/22 [History Confirmed 05/25/22] fluticasone propionate 50 mcg/actuation nasal spray,suspension 2 spray intranasal DAILY 05/25/22 [History Confirmed 05/25/22] gabapentin 300 mg capsule 300 mg PO BEDTIME 05/25/22 [History Confirmed 05/25/22] insulin glargine 100 unit/mL (3 mL) subcutaneous pen 22 unit SUBCUT BID 05/25/22 [History Confirmed 05/25/22] insulin lispro 100 unit/mL subcutaneous solution (Humalog U-100 Insulin) 4 unit SUBCUT TIDWM 05/25/22 [History Confirmed 05/25/22] levothyroxine 200 mcg tablet 200 mcg PO DAILY 05/25/22 [History Confirmed 05/25/22] lidocaine 5 % topical patch 1 patch topical DAILY 05/25/22 [History Confirmed 05/25/22] loratadine 10 mg tablet 10 mg PO DAILY 05/25/22 [History Confirmed 05/25/22] magnesium hydroxide 400 mg/5 mL oral suspension (Milk of Magnesia) 15 ml PO Q24H PRN Constipation 05/25/22 [History Confirmed 05/25/22] magnesium oxide 200 mg PO BID 05/25/22 [History Confirmed 05/25/22] meclizine 25 mg tablet 25 mg PO Q8HR PRN Dizziness 05/25/22 [History Confirmed 05/25/22] montelukast 10 mg tablet 10 mg PO DAILY 05/25/22 [History Confirmed 05/25/22] nystatin 100,000 unit/gram topical powder 1 applic topical BID PRN Rash 05/25/22 [History Confirmed 05/25/22] ondansetron 4 mg disintegrating tablet 4 mg PO Q8H PRN Nausea 05/25/22 [History Confirmed 05/25/22] rosuvastatin 40 mg tablet 40 mg PO DAILY 05/25/22 [History Confirmed 05/25/22] sennosides 8.6 mg tablet (senna) 17.2 mg PO BEDTIME 05/25/22 [History Confirmed 05/25/22] tiotropium bromide 18 mcg capsule with inhalation device (Spiriva with HandiHaler) 1 cap inhalation DAILY 05/25/22 [History Confirmed 05/25/22] torsemide 10 mg tablet 30 mg PO DAILY 05/25/22 [History Confirmed 05/25/22] trazodone 50 mg tablet 50 mg PO BEDTIME 05/25/22 [History Confirmed 05/25/22] Visit Medications (administered) Generic Name Dose Route Start Last Admin Trade Name Freq PRN Reason Stop Dose Admin Albuterol/Ipratropium 3 ml 05/26/22 07:00 05/27/22 07:33 Albuterol/Ipratropium 3 Ml Ampul INH 3 ml [id number] JAY JAY Administration Aspirin 81 mg 05/26/22 09:00 05/26/22 11:22 Aspirin Ec 81 Mg Tablet PO Not Given DAILY JAY JAY Gabapentin 300 mg 05/26/22 21:00 05/26/22 21:23 Gabapentin 300 Mg Capsule PO Not Given BEDTIME JAY JAY Heparin Sodium (Porcine) 7,500 unit 05/26/22 22:00 05/27/22 05:49 Heparin 5,000 Unit/Ml Vial SUBCUT 7,500 unit Q8HR JAY JAY Administration NOREPINEPHRINE BITARTRATE/D5W 4 mg in 250 mls @ 30 mls/hr 05/25/22 12:42 05/27/22 02:42 Levophed IV 1 mcg/min TITRATE JAY JAY 3.75 mls/hr Titration Protocol 8 MCG/MIN Ceftriaxone Sodium 1,000 mg/ 100 mls @ 200 mls/hr 05/25/22 19:00 05/26/22 20:15 Sodium Chloride IV Infused Q24H JAY JAY Infusion Propofol 1,000 mg in 100 mls @ 3.99 mls/hr 05/26/22 09:15 05/27/22 04:11 Propofol IV 8 mcg/kg/min TITRATE JAY JAY 6.384 mls/hr Administration Protocol 5 MCG/KG/MIN Fentanyl 1,000 mcg/ Dextrose 250 mls @ 23.275 mls/hr 05/26/22 09:15 05/27/22 05:49 IV 0.8 mcg/kg/hr TITRATE JAY JAY 26.6 mls/hr Administration Protocol 0.7 MCG/KG/HR Metronidazole 500 mg in 100 mls @ 100 mls/hr 05/26/22 15:45 05/27/22 08:28 Flagyl IV 100 mls/hr Q8H [facility] Administration Insulin Glargine 10 unit 05/25/22 21:00 05/26/22 21:19 Insulin Glargine 100 Unit/Ml 3ml Pen SUBCUT 10 unit 2100 JAY JAY Administration Insulin Human Lispro 0 unit 05/26/22 21:00 05/27/22 03:12 Insulin Lispro 100 Unit/Ml 3ml Vial SUBCUT 3 unit Q6H [facility] Administration Protocol Levothyroxine Sodium 200 mcg 05/26/22 08:15 05/27/22 05:50 Levothyroxine 100 Mcg Tablet PO Not Given 0600 JAY JAY Lidocaine 1 each 05/26/22 09:00 05/27/22 08:52 Lidocaine Patch 1 Each Adh..Patch TOP 1 each DAILY JAY JAY Administration Loratadine 10 mg 05/26/22 09:00 05/26/22 11:23 Loratadine 10 Mg Tablet PO Not Given DAILY JAY JAY Methylprednisolone 40 mg 05/25/22 19:20 05/26/22 23:44 Methylprednisolone 40 Mg/Ml Vial IV 40 mg Q12HR JAY JAY Administration Montelukast Sodium 10 mg 05/26/22 09:00 05/26/22 11:23 Montelukast 10 Mg Tablet PO Not Given DAILY JA YJAY Nystatin 1 applic 05/26/22 17:38 05/26/22 18:27 Nystatin Powder 15gm TOP 1 applic BID PRN Administration Rash Sodium Chloride 10 ml 05/25/22 21:00 05/27/22 08:40 Sodium Chloride 0.9% Flush IV 10 ml BID JAY JAY Administration Objective Ventilator Parameters: Ventilator Settings FiO2 35 RT Vent Frequency 18 Ventilator Tidal Volume 370 Exhaled Vt/kg IBW 6 Positive End Expiratory 5 Pressure Inspiratory Phase Time 0.85 I:E Ratio 1:2.9 Patient Position HOB >= 30 degrees Labs 05/27/22 04:00 05/27/22 04:00 Labs: Laboratory Results - last 24 hr 05/26/22 05/27/22 05/27/22 11:50 04:00 04:00 WBC 9.4 RBC 3.65 L Hgb 11.6 L Hct 35.3 L MCV 96.7 MCH 31.9 MCHC 33.0 RDW 19.3 H Plt Count 205 Neut % (Auto) 89.0 H Lymph % (Auto) 6.9 L [place] % (Auto) 4.0 Eos % (Auto) 0.0 L Baso % (Auto) 0.1 Neut # (Auto) 8400 H Lymph # (Auto) 700 L [place] # (Auto) 400 Eos # (Auto) 0 Baso # (Auto) 0 ABG pH 7.49 H ABG pCO2 38.1 ABG pO2 125 H ABG HCO3 29 H ABG Total CO2 30 H ABG O2 Saturation 99 ABG Base Excess 6.0 H FiO2 40 Sodium Potassium Chloride Carbon Dioxide BUN Creatinine Estimated GFR BUN/Creatinine Ratio Glucose Calcium Magnesium Total Bilirubin AST ALT Alkaline Phosphatase Total Creatine Kinase 693 H D Total Protein Albumin Globulin Albumin/Globulin Ratio 05/27/22 05/27/22 04:00 05:28 WBC RBC Hgb Hct MCV MCH MCHC RDW Plt Count Neut % (Auto) Lymph % (Auto) [place] % (Auto) Eos % (Auto) Baso % (Auto) Neut # (Auto) Lymph # (Auto) [place] # (Auto) Eos # (Auto) Baso # (Auto) ABG pH 7.53 H ABG pCO2 39.8 ABG pO2 92 ABG HCO3 33 H ABG Total CO2 25 ABG O2 Saturation 98 ABG Base Excess 11.0 H FiO2 40 Sodium 137 Potassium 4.3 Chloride 97 L Carbon Dioxide 31 BUN 51 H Creatinine 2.08 H Estimated GFR 27 L BUN/Creatinine Ratio 24.5 H Glucose 277 H Calcium 9.1 Magnesium 2.1 Total Bilirubin 0.6 AST 44 H ALT 40 H Alkaline Phosphatase 52 Total Creatine Kinase Total Protein 6.9 Albumin 3.6 Globulin 3.3 Albumin/Globulin Ratio 1.1 Exam Vital Signs (past 8 hours): - 05/27/22 01:45 05/27/22 02:00 05/27/22 02:00 Temperature Pulse Rate 49 L 49 L Respiratory Rate 16 16 Blood Pressure 106/57 L Pulse Oximetry 95 95 Oxygen Delivery Method 05/27/22 02:15 05/27/22 02:30 05/27/22 02:45 Temperature Pulse Rate 50 L 50 L 48 L Respiratory Rate 16 16 16 Blood Pressure Pulse Oximetry 95 92 94 Oxygen Delivery Method 05/27/22 03:00 05/27/22 03:00 05/27/22 03:15 Temperature Pulse Rate 49 L 49 L Respiratory Rate 16 16 Blood Pressure 111/58 L Pulse Oximetry 95 96 Oxygen Delivery Method 05/27/22 03:30 05/27/22 03:45 05/27/22 04:00 Temperature Pulse Rate 49 L 49 L Respiratory Rate 16 16 Blood Pressure 113/57 L Pulse Oximetry 96 96 Oxygen Delivery Method 05/27/22 04:00 05/27/22 04:15 05/27/22 04:00 Temperature 97.3 F L Pulse Rate 49 L 49 L Respiratory Rate 16 17 Blood Pressure Pulse Oximetry 95 95 Oxygen Delivery Method Mechanical Ventilation 05/27/22 04:30 05/27/22 04:45 05/27/22 05:00 Temperature Pulse Rate 49 L 50 L Respiratory Rate 16 16 Blood Pressure 109/56 L Pulse Oximetry 96 96 Oxygen Delivery Method 05/27/22 05:00 05/27/22 05:15 05/27/22 05:30 Temperature Pulse Rate 48 L 48 L 49 L Respiratory Rate 16 16 16 Blood Pressure Pulse Oximetry 96 96 96 Oxygen Delivery Method 05/27/22 05:45 05/27/22 06:00 05/27/22 06:08 Temperature Pulse Rate 56 L 52 L 51 L Respiratory Rate 17 21 16 Blood Pressure Pulse Oximetry 96 97 97 Oxygen Delivery Method 05/27/22 06:08 05/27/22 06:15 05/27/22 06:30 Temperature Pulse Rate 48 L 49 L Respiratory Rate 16 16 Blood Pressure 133/69 Pulse Oximetry 96 96 Oxygen Delivery Method 05/27/22 06:45 05/27/22 07:00 05/27/22 07:00 Temperature Pulse Rate 48 L 48 L Respiratory Rate 16 16 Blood Pressure 128/71 Pulse Oximetry 96 97 Oxygen Delivery Method 05/27/22 07:20 Temperature 97.9 F Pulse Rate Respiratory Rate Blood Pressure Pulse Oximetry Oxygen Delivery Method Fraction of Inspired Oxygen 30 Oxygen Delivery Method Mechanical Ventilation Oxygen Flow Rate 2 Quality TeleICU VTE Deep Vein Thrombosis/Pulmonary Embolism Present on Admission: No Assessment & Plan Assessment & Plan narrative: patient seen with sole nurse and provder 61 year old female admitted to ICU for altered mental status acute resp failure acute renal failure Rhabodymylysis severe sepsis with septic shock, unclear source currently afebrile, HD stable, off pressors mental status much improved, following commands creat 2.08, improving Ck 560 improving abg 7.53/39/92 suggest -neurochecks/seizure precautions -goal RASS -1 -SAH/SBT, if does well would extubate to bipap -repeat cxr/ abg post vent settings changes -minimize sedation -vent support, keep TV <6.5cc/kg, keep sat above 88% -solumedrol -abx/cxs, if -ve t omorrow would consider DC -RUQ ?acalculous cholesystits, does not appear toxic today, if fevere/wbc consider surgery eval -echo, reduced EF, unclear if new, consider cardio eval -check echo -monitor ins/outs -replace lytes prn -keep glucose 140-180s -gi/dvt ppx -please call eICU if condition changes -discussed with Dr. Donald on daily rounds total ccm time 45 mins Time Spent With Patient Critical Care time: I spent a total of [] minutes of critical care time on this patient's care today; this time is exclusive of procedural time.
[2022-05-27 11:09] LABS: Fractionated Inspired Oxygen 35; HCO3 ABG 30 mmol/L (23-27); Oxygen Saturation ABG 94 % (95-100); PCO2 ABG 43.2 mmHg (35-45); PO2 ABG 67 mmHg (80-100); TCO2 ABG 31 mmol/L (23-27); pH ABG 7.45 (7.35-7.45)
[2022-05-27] MEDS: FAMOTIDINE 20 MG/2 ML VIAL IV (11:13)
[2022-05-27] MEDS: LORATADINE 10 MG TABLET PO (11:13)
[2022-05-27] MEDS: ASPIRIN EC 81 MG TABLET PO (11:13)
[2022-05-27] MEDS: MONTELUKAST 10 MG TABLET PO (11:13)
[2022-05-27] MEDS: CHLORHEXIDINE GLUCONATE 15 ML CUP PO ×2 (12:06→21:36)
--- NOTE | 2022-05-27 16:32 | DIET.PN1 ---
Dietary Progress Note Assessment: Per nursing pt just started on TF @ 10ml/hr. Propofol decreased to 8mcg. D/c of pressors and current MAP of 75. Some improvement in Cr from 2.62 to 2.08. Some improvement of GFR from 20-27. Would rec slight increase to TF goal from 25ml/h to 30 ml/hr. This improves nutrient intake without going beyond protein recs for kidney fxn. Rec adjusting insulin to keep BG 140-180mg/dl. This would provide: 1080kcal from feed 169 kcal from propofol 1249 total kcals 68g PRO 124g CHO 546 feed water 70ml flushes q 6 total fluids: 966 Ht: 160.02 cm Wt: 129.3 kg BMI: 51.9 Last BM: () MNA: 13 Matt Score: 12 Diet: 05/26/22 13:35 NPO Diet Diet Modifications: pt on ventilator NPO Type: Strict 05/26/22 Dinner Tube Feeding Diet Diet Modifications: one prosource packet/d when changing out formula TF Supplement type: Pivot 1.5 TF mode of delivery: Continuous Starting flow rate mL/hr: 10 Flow rate goal mL/hr: 25 Titration Schedule to reach Goal Rate: increase to goal as tolerated after 6h Max total daily volume in mL: 935 Free fluid: 80 Free Water Frequency: Q4H Nutrition Percent Meal Consumed 0% 05/26/22 09:00 Patient receiving TPN/PPN/TF Yes: initiating TF 05/26/22 13:43 Type of Feeding Tube NG/OG 05/27/22 14:00 Type of Feeding Tube NG/OG 05/26/22 13:43 Labs: RBC 3.65 X10^6/uL (4.0-5.2) L 05/27/22 04:00 Hgb 11.6 g/dL (12.0-16.0) L 05/27/22 04:00 Hct 35.3 % (36-46) L 05/27/22 04:00 Creatinine 2.08 mg/dL (0.52-1.04) H 05/27/22 04:00 Hemoglobin A1c 9.7 % (4.0-6.0) H 05/26/22 05:00 Lactate 1.2 mmol/L (0.7-2.1) 05/25/22 15:34 NT-Pro-B Natriuret Pep 5690 pg/mL (<125) H 05/25/22 09:00 EER: 1787kcals (25kcal/kg Adj BW), 60-70g PRO (0.9g/kg Adj BW until renal fxn improves) Monitoring/Evaluations: RD f/u 1-2 days Electronically Signed by: China Palencia 05/27/22 16:32 Clinical Dietitian [address] [id number]
[2022-05-27] MEDS: NYSTATIN POWDER 15GM 1 APPLIC TOP (16:43)
--- NOTE | 2022-05-27 17:53 | PC.NURSE ---
1740 Patient had torsades like run on monitor. Went into room to check on patient. BP on [place] 125/67. Patient is awake and nodded no that she had not been moving and nodded yes that she could feel what her heart just did. Dr. Arredondo contacted and new orders for Renal function panel and mag labs. Drawn and sent. Dr. Donald also notified in person in nurses station.
[2022-05-27] MEDS: cefTRIAXone 1,000 MG in SODIUM CHLORIDE 0.9% 100 ML 200 MG IV (18:12)
[2022-05-27 18:17] LABS: Albumin 3.5 g/dL (3.5-5.0); BUN Creatinine Ratio 31.7 (6-22); Blood Urea Nitrogen 53 mg/dL (7-17); Calcium 8.8 mg/dL (8.4-10.2); Carbon Dioxide 27 mmol/L (22-32); Chloride 99 mmol/L (98-107); Estimated Glomerular Filt Rate 35 mL/min (>60); Glucose 288 mg/dL (80-110); HEMOLYSIS 33 (0-50); Phosphorous 3.2 mg/dL (2.8-4.1); Potassium 4.1 mmol/L (3.4-5.1); Sodium 136 mmol/L (137-145)
[2022-05-27 18:59] LABS: Osmolality, Serum 310 mOsmol/kg (275-295)
--- NOTE | 2022-05-27 20:29 | PM.ICURNDS ---
- Date Patient Seen: 05/27/22 Time Patient Seen: 20:29 :: This patient was seen via real time interactive two-way audiovisual telecommunication. Note: Patient is off levophed. Cx negative to date. Currently on propofol 8 mcg and fentanyl 0.8 mcg/kg/hr. Patient noted to itching earlier this evening. Ordered benadryl 25 mg IV once. Will check SAT/SBT tomorrow. D/w MAI Grider at bedside.
[2022-05-27] MEDS: diphenhydrAMINE 50 MG/ML VIAL 25 MG IV (20:53)
[2022-05-27] MEDS: INSULIN GLARGINE 100 UNIT/ML 3ML PEN 10 UNIT SUBCUT (21:36)
[2022-05-28] VITALS (82 sets, daily range): BP systolic 92–131; BP diastolic 55–77; PULSE 51–104; RESP 14–43; TEMP 32–36.9; O2SAT 86–98
[2022-05-28] MEDS: INSULIN LISPRO 100 UNIT/ML 3ML VIAL SUBCUT ×4 (03:18→21:33)
[2022-05-28] MEDS: fentaNYL 1,000 MCG in DEXTROSE 5% IN WATER 230 ML 19.95 MCG IV (03:31)
[2022-05-28] MEDS: propofoL 1,000 MG/100 ML VIAL 11.97 MG IV (04:17)
[2022-05-28 05:19] LABS: Alanine Aminotransferase 38 IU/L (<35); Albumin 3.5 g/dL (3.5-5.0); Albumin Globulin Ratio 1.2 (1.0-2.8); Alkaline Phosphatase 50 U/L (38-126); Aspartate Aminotransferase 37 IU/L (14-36); BUN Creatinine Ratio 31.9 (6-22); Bilirubin Total 0.5 mg/dL (0.2-1.3); Blood Urea Nitrogen 51 mg/dL (7-17); Calcium 8.8 mg/dL (8.4-10.2); Carbon Dioxide 28 mmol/L (22-32); Chloride 99 mmol/L (98-107); Estimated Glomerular Filt Rate 37 mL/min (>60); Globulin 2.9 g/dL (1.7-4.1); Glucose 367 mg/dL (80-110); HEMOLYSIS < 15 (0-50); Hematocrit 33.7 % (36-46); Hemoglobin 10.9 g/dL (12.0-16.0); Magnesium 2.1 mg/dL (1.6-2.3); Mean Corpuscular HGB Conc 32.3 % (30-36); Mean Corpuscular Hemoglobin 31.6 PG (26-34); Platelet Count 165 X10^3/uL (150-400); Potassium 4.2 mmol/L (3.4-5.1); Red Blood Cell Count 3.44 X10^6/uL (4.0-5.2); Red Cell Distribution Width 19.7 % (11.6-14.8); Sodium 137 mmol/L (137-145); Total Protein 6.4 g/dL (6.3-8.2); White Blood Cell Count 8.4 X10^3/uL (4.5-11.0)
[2022-05-28 05:24] LABS: Add Manual Diff / Slide Review YES
[2022-05-28 05:57] LABS: Anisocytosis 2+; Neutrophils Absolute Manual 8064 /uL (3000-5900); Total Cells Counted 100
[2022-05-28] MEDS: ALBUTEROL/IPRATROPIUM 3 ML AMPUL INH ×3 (06:16→19:12)
[2022-05-28] MEDS: HEPARIN 5,000 UNIT/ML VIAL 7500 UNIT SUBCUT ×3 (06:22→21:36)
--- NOTE | 2022-05-28 06:50 | PC.NURSE ---
Reproduction Specialist Note-Patient remains on ventilator, no change to setting since evening shift. Propofol has been titrated 5-15mcg/min to keep RASS -1, Fentanyl titrated down to 0.6mcg/kg/hr, see eMAR. Tolerating TF, at goal of 25ml/hr. CBGs high 311 and 312, covered with 5 units per med SS algorithm.
[2022-05-28] MEDS: INSULIN GLARGINE 100 UNIT/ML 3ML PEN 10 UNIT SUBCUT ×2 (07:59→21:35)
[2022-05-28] MEDS: metroNIDAZOLE 500 MG/100 ML PIGGYBACK 100 MG IV ×2 (08:00→16:44)
[2022-05-28] MEDS: LIDOCAINE PATCH 1 EACH ADH..PATCH TOP (08:06)
[2022-05-28] MEDS: LORATADINE 10 MG TABLET PO (08:07)
[2022-05-28] MEDS: SODIUM CHLORIDE 0.9% FLUSH 10 ML IV ×3 (08:07→21:32)
[2022-05-28] MEDS: MONTELUKAST 10 MG TABLET PO (08:07)
[2022-05-28] MEDS: ASPIRIN EC 81 MG TABLET PO (08:07)
[2022-05-28] MEDS: CHLORHEXIDINE GLUCONATE 15 ML CUP PO ×2 (08:07→21:30)
[2022-05-28] MEDS: FAMOTIDINE 20 MG/2 ML VIAL IV (08:07)
[2022-05-28] MEDS: NYSTATIN POWDER 15GM 1 APPLIC TOP (09:00)
[2022-05-28 09:49] LABS: Fractionated Inspired Oxygen 35; HCO3 ABG 29 mmol/L (23-27); Oxygen Saturation ABG 96 % (95-100); PCO2 ABG 47.9 mmHg (35-45); PO2 ABG 87 mmHg (80-100); TCO2 ABG 30 mmol/L (23-27); pH ABG 7.39 (7.35-7.45)
--- NOTE | 2022-05-28 10:24 | RT ---
PT PLACED IMMEDIATELY ON BIPAP AT 1004 FOLLOWING EXTUBATION, PER VERBAL ORDER BY DR. CHINCHILLA. PT IS TOLERATING BIPAP WELL.
--- NOTE | 2022-05-28 11:35 | PC.NURSE ---
1115 Patient's A-line dressing was bloody and patient asked for the dressing to go ahead and be changed. During old dressing removal the A-line catheter pulled out. Pressure was held for 5 min. Small hematoma at site. marked and soft after pressure held. vaseline gauze and 2x2 folded under tegaderm placed over site.
--- NOTE | 2022-05-28 17:10 | PM.PN.1 ---
Subjective Subjective Interval history: 61-year-old female with hypertension, class 3 obesity COPD with chronic hypoxic respiratory failure on 2 L at baseline, hyperlipidemia, obstructive sleep apnea, combined systolic and diastolic congestive heart failure, and thyroiditis who was initially admitted on 05/25/2022 with acute respiratory failure, BLANCA, presumed septic shock, and rhabdomyolysis.? She had worsening respiratory failure on May 26 in conjunction with increasing lethargy and required intubation/mechanical ventilation.? She failed a spontaneous breathing trial yesterday. However, today she is much more awake and alert and able to follow commands. She denies any shortness of breath. She denies any chest pain. She does complain of discomfort related to the ET tube. She is now off of Levophed. Exam Vital Signs (past 8 hours): - 05/28/22 10:04 05/28/22 12:00 05/28/22 12:00 Temperature Pulse Rate Respiratory Rate Blood Pressure 125/70 117/64 Pulse Oximetry 96 Oxygen Delivery Method BiPAP Oxygen Flow Rate Fraction of Inspired Oxygen 30 35 05/28/22 12:15 05/28/22 14:38 05/28/22 15:37 Temperature Pulse Rate Respiratory Rate Blood Pressure 117/64 Pulse Oximetry 96 93 Oxygen Delivery Method High Flow Nasal Cannula CPAP Oxygen Flow Rate 3 3 Fraction of Inspired Oxygen 35 05/28/22 09:15 05/28/22 09:30 05/28/22 09:45 Temperature Pulse Rate 75 71 75 Respiratory Rate 19 17 36 H Blood Pressure Pulse Oximetry 95 94 96 Oxygen Delivery Method Oxygen Flow Rate Fraction of Inspired Oxygen 05/28/22 10:00 05/28/22 10:00 05/28/22 10:15 Temperature Pulse Rate 70 71 Respiratory Rate 18 20 Blood Pressure 119/70 Pulse Oximetry 95 87 L Oxygen Delivery Method Oxygen Flow Rate Fraction of Inspired Oxygen 05/28/22 10:30 05/28/22 10:45 05/28/22 11:00 Temperature Pulse Rate 67 72 Respiratory Rate 21 38 H Blood Pressure 108/62 Pulse Oximetry 93 95 Oxygen Delivery Method Oxygen Flow Rate Fraction of Inspired Oxygen 05/28/22 11:00 05/28/22 11:15 05/28/22 11:30 Temperature Pulse Rate 69 68 66 Respiratory Rate 26 H 25 H 22 Blood Pressure Pulse Oximetry 95 96 96 Oxygen Delivery Method Oxygen Flow Rate Fraction of Inspired Oxygen 05/28/22 11:45 05/28/22 12:00 05/28/22 12:00 Temperature 97.1 F L Pulse Rate 67 64 Respiratory Rate 22 25 H Blood Pressure 117/64 Pulse Oximetry 97 97 Oxygen Delivery Method Oxygen Flow Rate Fraction of Inspired Oxygen 05/28/22 12:15 05/28/22 12:30 05/28/22 12:45 Temperature Pulse Rate 64 61 62 Respiratory Rate 26 H 23 23 Blood Pressure Pulse Oximetry 96 96 94 Oxygen Delivery Method Oxygen Flow Rate Fraction of Inspired Oxygen 05/28/22 13:00 05/28/22 13:11 05/28/22 13:11 Temperature 97.8 F Pulse Rate 65 63 Respiratory Rate 26 H 28 H Blood Pressure 107/59 L Pulse Oximetry 96 96 Oxygen Delivery Method Oxygen Flow Rate Fraction of Inspired Oxygen 05/28/22 13:15 05/28/22 13:30 05/28/22 13:45 Temperature Pulse Rate 60 68 65 Respiratory Rate 23 35 H 25 H Blood Pressure Pulse Oximetry 95 96 96 Oxygen Delivery Method Oxygen Flow Rate Fraction of Inspired Oxygen 05/28/22 14:00 05/28/22 14:00 05/28/22 14:15 Temperature 97.1 F L Pulse Rate 63 62 Respiratory Rate 25 H 24 Blood Pressure 111/64 Pulse Oximetry 96 94 Oxygen Delivery Method Oxygen Flow Rate Fraction of Inspired Oxygen 05/28/22 14:30 05/28/22 14:45 05/28/22 15:00 Temperature Pulse Rate 67 69 85 Respiratory Rate 31 H 43 H 41 H Blood Pressure Pulse Oximetry 96 94 Oxygen Delivery Method Oxygen Flow Rate Fraction of Inspired Oxygen 05/28/22 15:01 05/28/22 15:01 05/28/22 15:15 Temperature Pulse Rate 82 69 Respiratory Rate 28 H 27 H Blood Pressure 104/55 L Pulse Oximetry 94 Oxygen Delivery Method Oxygen Flow Rate Fraction of Inspired Oxygen 05/28/22 15:30 05/28/22 15:45 Temperature Pulse Rate 69 66 Respiratory Rate 29 H 25 H Blood Pressure Pulse Oximetry 86 L 92 Oxygen Delivery Method Oxygen Flow Rate Fraction of Inspired Oxygen Fraction of Inspired Oxygen 35 SaO2/FiO2 Ratio 262 Oxygen Delivery Method CPAP Oxygen Flow Rate 3 Narrative Exam Narrative: GEN:? Intubated, alert, following commands, occasional cough, NAD HEENT:NC, Face symmetric CHEST: Respiratory excursions symmetric, diminished but CTAB in the anterior lung paz, improved breath sounds compared to yesterday's exam CV:? RRR, somewhat diminished heart sounds (suspect secondary to BMI rather than muffled heart sounds) ABD: Soft, obese, NT/ND, BT present in all 4 quadrants, nonreducible ventral hernia, skin in the pannus folds reveals evidence of chronic candidiasis EXTR: warm, well perfused, no C/C/E SKIN: warm and dry, no rash NEURO:? Nonfocal Objective Labs 05/28/22 05:00 05/28/22 05:00 Labs: Laboratory Results - last 24 hr 05/25/22 05/27/22 05/27/22 10:53 17:56 17:56 WBC RBC Hgb Hct MCV MCH MCHC RDW Plt Count Neut % (Auto) Lymph % (Auto) [place] % (Auto) Eos % (Auto) Baso % (Auto) Lymph # (Auto) [place] # (Auto) Baso # (Auto) Total Counted Seg Neutrophils % Band Neutrophils % Lymphocytes % (Manual) Monocytes % (Manual) Neutrophils # (Manual) RBC Morphology Anisocytosis ABG pH ABG pCO2 ABG pO2 ABG HCO3 ABG Total CO2 ABG O2 Saturation ABG Base Excess FiO2 Sodium 136 L Potassium 4.1 Chloride 99 Carbon Dioxide 27 BUN 53 H Creatinine 1.67 H Estimated GFR 35 L BUN/Creatinine Ratio 31.7 H Glucose 288 H Serum Osmolality 310 H Calcium 8.8 Phosphorus 3.2 Magnesium 2.0 Total Bilirubin AST ALT Alkaline Phosphatase Total Protein Albumin 3.5 Globulin Albumin/Globulin Ratio 05/28/22 05/28/22 05/28/22 05:00 05:00 09:29 WBC 8.4 RBC 3.44 L Hgb 10.9 L Hct 33.7 L MCV 98.0 MCH 31.6 MCHC 32.3 RDW 19.7 H Plt Count 165 Neut % (Auto) Not Reportable Lymph % (Auto) Not Reportable [place] % (Auto) Not Reportable Eos % (Auto) Not Reportable Baso % (Auto) Not Reportable Lymph # (Auto) Not Reportable [place] # (Auto) Not Reportable Baso # (Auto) Not Reportable Total Counted 100 Seg Neutrophils % 94.0 H Band Neutrophils % 2.0 L Lymphocytes % (Manual) 2.0 L Monocytes % (Manual) 2.0 Neutrophils # (Manual) 8064 H RBC Morphology See below Anisocytosis 2+ H ABG pH 7.39 ABG pCO2 47.9 H ABG pO2 87 ABG HCO3 29 H ABG Total CO2 30 H ABG O2 Saturation 96 ABG Base Excess 4.0 H FiO2 35 Sodium 137 Potassium 4.2 Chloride 99 Carbon Dioxide 28 BUN 51 H Creatinine 1.60 H Estimated GFR 37 L BUN/Creatinine Ratio 31.9 H Glucose 367 H Serum Osmolality Calcium 8.8 Phosphorus Magnesium 2.1 Total Bilirubin 0.5 AST 37 H ALT 38 H Alkaline Phosphatase 50 Total Protein 6.4 Albumin 3.5 Globulin 2.9 Albumin/Globulin Ratio 1.2 PFSH Medical History (Updated 05/25/22 @ 19:18 by Jayne Muhammad DO) Chronic hypoxemic respiratory failure COPD (chronic obstructive pulmonary disease) DM2 (diabetes mellitus, type 2) HTN (hypertension) Obesity PONCE (obstructive sleep apnea) Systolic and diastolic CHF, chronic Thyroiditis Surgical History (Updated 05/25/22 @ 18:30 by Esteban Gillespie DO) S/P hernia surgery Family History (Updated 05/25/22 @ 18:31 by Esteban Gillespie DO) Mother No pertinent past medical history Father No pertinent past medical history Social History household members: other Smoking Status: Former smoker Assessment & Plan Assessment & Plan narrative: 1. Acute on chronic hypoxic respiratory failure Patient remains intubated.? Spontaneous breathing trial to be performed today.? Appreciate tele ICU consultation.? Remains on steroids for COPD exacerbation. Respiratory status appears improved overall. She is much more awake and alert. Anticipate she will able to be extubated today. 2. Undifferentiated shock, presumed septic but possibly cardiogenic Remains on empiric Rocephin and metronidazole. She is been weaned off of the Levophed. 3. Acute on chronic combined systolic and diastolic congestive heart failure, with ejection fraction of 20-25%, mildly dilated left ventricle, moderate to severe global hypokinesis of the left ventricle, evidence of diastolic dysfunction as well as mild to moderately reduced right ventricular systolic function Diuretics were held in the setting of hypotension and BLANCA. Will defer re-initiation of diuresis to the tele sweatband cutting machine operator. 4. BLANCA in the setting of likely chronic kidney disease Continued improvement with creatinine down to 1.6 today. 5. Nontraumatic rhabdomyolysis LFTs are nearly normal.? CK was down to 693 yesterday.? Rhabdomyolysis appears to be resolving. 6. Acute myocardial injury Initial troponin was 0.052 in the emergency department.? On follow-up it was 0.038.? Given the downtrend, no further intervention planned. 7. Ventricular arrhythmia Patient had a nonsustained episode of what appears to be tors[place] de [place] yesterday. Electrolytes were within normal limits. There was no further arrhythmia overnight. 8. COPD with exacerbation Continue Solu-Medrol 40 mg IV q.12 hours.? Remains on DuoNebs and as needed albuterol as well. 8. Diabetes mellitus type 2 Hemoglobin A1c 9.7% on admission.? Typically on Lantus 20 units at HS.? Was receiving 10 units at HS here. Will titrate up to 20 units daily, as tube feeds have been initiated and blood sugars are quite elevated. 9. Class 3 obesity BMI is 50.5.? Obesity significantly increases her risk for morbidity mortality. Code status Full Prophylaxis On Lovenox.? Is receiving renal dosing, but may need b.i.d. dosing based on her BMI. Will discuss further with pharmacy. Disposition Intensive care unit Time Spent With Patient Critical Care time: I spent a total of [] minutes of critical care time on this patient's care today; this time is exclusive of procedural time. Quality VTE Deep Vein Thrombosis/Pulmonary Embolism Present on Admission: No
[2022-05-28] MEDS: cefTRIAXone 1,000 MG in SODIUM CHLORIDE 0.9% 100 ML 200 MG IV (18:44)
--- NOTE | 2022-05-28 20:25 | PM.ICURNDS ---
- Date Patient Seen: 05/28/22 Time Patient Seen: 20:26 :: This patient was seen via real time interactive two-way audiovisual telecommunication. Note: Patient is successfully extubated to 3 liters NC. Subjectively patient reports no complaints. Denies chest pain, SOB, cough, or fever/chills. Encourage IS and OOB as tolerated. Will obtain PT/OT consultation and encourage early mobility. D/w RN at bedside.
[2022-05-28] MEDS: buPROPion XL 150 MG TAB PO (21:30)
[2022-05-28] MEDS: GABAPENTIN 300 MG CAPSULE PO (21:30)
[2022-05-29] VITALS (32 sets, daily range): BP systolic 109–125; BP diastolic 57–95; PULSE 67–101; RESP 19–42; TEMP 36.3–37; O2SAT 91–97
[2022-05-29] MEDS: metroNIDAZOLE 500 MG/100 ML PIGGYBACK 100 MG IV ×4 (00:24→23:32)
[2022-05-29] MEDS: SODIUM CHLORIDE 0.9% FLUSH 10 ML IV ×3 (00:24→19:45)
[2022-05-29] MEDS: HEPARIN 5,000 UNIT/ML VIAL 7500 UNIT SUBCUT ×3 (05:45→21:05)
[2022-05-29] MEDS: LEVOTHYROXINE 100 MCG TABLET 200 MCG PO (05:46)
[2022-05-29] MEDS: ALBUTEROL/IPRATROPIUM 3 ML AMPUL INH ×2 (06:43→11:25)
--- NOTE | 2022-05-29 06:58 | PC.NURSE ---
Pt. had runs of torsade de point this am and seems to coincide when pt. was receiving a nebulizer treatment. Informed Jez and instructed me to stop the breathing treatment which RT did. Printed the event and given to Jez. Pt. is stable without any complaints but states she is breathing better.
[2022-05-29] MEDS: INSULIN LISPRO 100 UNIT/ML 3ML VIAL SUBCUT ×7 (08:22→21:04)
[2022-05-29] MEDS: INSULIN GLARGINE 100 UNIT/ML 3ML PEN 20 UNIT SUBCUT ×2 (08:23→21:04)
[2022-05-29] MEDS: LORATADINE 10 MG TABLET PO (08:24)
[2022-05-29] MEDS: ASPIRIN EC 81 MG TABLET PO (08:24)
[2022-05-29] MEDS: LIDOCAINE PATCH 1 EACH ADH..PATCH TOP (08:24)
[2022-05-29] MEDS: MONTELUKAST 10 MG TABLET PO (08:25)
[2022-05-29] MEDS: FAMOTIDINE 20 MG/2 ML VIAL IV (08:25)
[2022-05-29] MEDS: NYSTATIN POWDER 15GM 1 APPLIC TOP (08:27)
[2022-05-29 08:41] LABS: Add Manual Diff / Slide Review NO; Basophils Absolute Auto 0 /uL (0-100); Basophils Percent Auto 0.1 % (0-2); Eosinophils Absolute Auto 0 /uL (0-450); Hematocrit 32.9 % (36-46); Hemoglobin 10.5 g/dL (12.0-16.0); Lymphocytes Absolute Auto 500 /uL (1100-4500); Lymphocytes Percent Auto 6.8 % (25-40); Mean Corpuscular HGB Conc 31.9 % (30-36); Mean Corpuscular Hemoglobin 31.9 PG (26-34); Mean Corpuscular Volume 100.2 fL (80-100); Monocytes Absolute Auto 300 /uL (0-900); Monocytes Percent Auto 3.7 % (3-14); Neutrophils Absolute Auto 7000 /uL (1500-7000); Neutrophils Percent Auto 89.4 % (50-75); Platelet Count 151 X10^3/uL (150-400); Red Blood Cell Count 3.28 X10^6/uL (4.0-5.2); White Blood Cell Count 7.8 X10^3/uL (4.5-11.0)
[2022-05-29] MEDS: MAGNESIUM OXIDE 400 MG TABLET 200 MG PO ×2 (08:51→21:03)
[2022-05-29 09:30] LABS: Alanine Aminotransferase 34 IU/L (<35); Albumin 3.5 g/dL (3.5-5.0); Albumin Globulin Ratio 1.2 (1.0-2.8); Alkaline Phosphatase 45 U/L (38-126); Aspartate Aminotransferase 26 IU/L (14-36); BUN Creatinine Ratio 36.4 (6-22); Bilirubin Total 0.5 mg/dL (0.2-1.3); Blood Urea Nitrogen 51 mg/dL (7-17); Calcium 8.6 mg/dL (8.4-10.2); Carbon Dioxide 31 mmol/L (22-32); Chloride 102 mmol/L (98-107); Estimated Glomerular Filt Rate 43 mL/min (>60); Globulin 2.9 g/dL (1.7-4.1); Glucose 272 mg/dL (80-110); HEMOLYSIS < 15 (0-50); Potassium 4.8 mmol/L (3.4-5.1); Sodium 137 mmol/L (137-145); Total Protein 6.4 g/dL (6.3-8.2)
--- NOTE | 2022-05-29 09:52 | PT-IP ANOTE ---
Spoke with RN, recommended waiting until this afternoon in order to allow new meds to kick in
--- NOTE | 2022-05-29 10:10 | PT.IIE ---
Current Diagnoses Acute respiratory failure with hypercapnia (05/25/22) Acute and chronic respiratory failure with hypoxia (05/25/22) Surgical History (Last Updated 05/25/22 @ 18:30 by Esteban Gillespie DO) S/P hernia surgery Medical History (Last Updated 05/25/22 @ 18:30 by Esteban Gillespie DO) Chronic hypoxemic respiratory failure COPD (chronic obstructive pulmonary disease) DM2 (diabetes mellitus, type 2) HTN (hypertension) Obesity PONCE (obstructive sleep apnea) Systolic and diastolic CHF, chronic Thyroiditis Physical Therapy Inpatient Evaluation/Re-Eval M1 PT/OT-IP Prior Functional Status Start: 05/29/22 09:55 Freq: NEEDED Status: Active Protocol: Document 05/29/22 09:02 DCW (Rec: 05/29/22 10:10 DCW [id number]) Medical Review Prior Functional Status Medical History Reviewed Yes Communication WNL Mobility and Gait Uses 4WW for short distances in [place], largely chair<-> restroom, uses w/c for any longer distances Social History Household Members other Living Arrangements Assisted Living Home Equipment Four Wheel Walker,Manual Wheelchair M2 PT-IP Current Condition Start: 05/29/22 09:55 Freq: NEEDED Status: Active Protocol: Document 05/29/22 09:02 DCW (Rec: 05/29/22 10:10 DCW [id number]) Physical Therapy Current Condition Current Condition Evaluation Date 05/29/22 Treatment Diagnosis Weakness, fatigue, hypoxia Onset Date 05/25/22 M3 PT-IP Subjective Start: 05/29/22 09:55 Freq: NEEDED Status: Active Protocol: Document 05/29/22 09:02 DCW (Rec: 05/29/22 10:10 DC [id number]) Subjective Physical Therapy Visit Type Type Initial Evaluation Visit Start Time 09:02 Visit Stop Time 09:38 Total Visit Minutes 36 Notes Pt in bed as PT entered, excited to get up to recliner. Pt extubated yesterday, had been intubated since 05/25/22. Pt reports she is worried that she will struggle to get out of hospital bed, feels she is sinking too far down into the middle. Number of PROPELLER MECHANIC Visits 0 Physical Therapy Visit Comments Patient Comments I really need to get up. Therapy Pain Assessment Pain When Pain Assessed At Rest Pain Present Pain Present Denied Pain M4 PT-IP Mobility and Gait Start: 05/29/22 09:55 Freq: NEEDED Status: Active Protocol: Document 05/29/22 09:02 DCW (Rec: 05/29/22 10:10 [facility] [id number]) PT-Bed Mobility Assessment Scooting Scooting to Edge of Bed Minimal Assistance Scooting Up and Down in Bed Minimal Assistance PT-Transfer Assessment Sit to and From Stand Sit to and from Stand Minimal Assistance,Moderate Assistance,1 Person Assistance Equipment Transfer Assistive Device Bed Rail,Gait Belt,Front Wheeled Walker Transfers Transfer Destination Chair,Bedside Commode Transfer Technique Stand Step Pivot Transfer Ability Level of Assist Minimal Assistance Comments Mobility Comments Pt struggle to scoot in bed, but upon getting EOB, did well getting her feet down to fllor and standing with minimal assistance. Impulsive to get bed->chair, therapist had to hess to manage lines. After getting comfortable in recliner, pt began to complain of abdominal cramping and nausea, requested bag for vomit. After multiple dry heaves, pt requested assistance transfering to BSC. Sit->stand from recliner Min Ax1, stand-pivot transfer to BSC, pt required verbal cues to continue turning as to not sit too early. M5 PT-IP Objective Assessments Start: 05/29/22 09:55 Freq: NEEDED Status: Active Protocol: Document 05/29/22 09:02 DCW (Rec: 05/29/22 10:10 [facility] [id number]) Orientation Orientation/Cognition Level of Alertness Alert Orientation Name,Birthday,Month,Date,Year, Place,Situation Language Function Ability No Deficits Noted Safety Awareness Decreased Safety Awareness Memory Description No Deficits Noted Comments Pt slightly impulsive when it comes to line management Strength Lower Extremity Strength Assessment Within Functional Limits M7 PT-IP Assessment and Plan Start: 05/29/22 09:55 Freq: NEEDED Status: Active Protocol: Document 05/29/22 09:02 DCW (Rec: 05/29/22 10:10 [facility] [id number]) PT Summary Assessment and Plan Potential Rehabilitation Potential Good Status of Condition at Evaluation Unstable Summary Impairments Strength,Balance,Bed Mobility, Transfers,Gait,Activity Tolerance Assessment Summary Pt seemed to be in a hess with all transfers today, first to recliner and then to BSC. Sitting up in bed, Os sat at 95% on 3L O2 via nc, dropped to 87% during transfer to recliner, but recovered quickly. After transfer recliner->[facility], O2 sat remained 95%. Pt did fairly well with transfers other than feeling like she needed to hess, transfers largely Min Ax1, Mod Ax1 standing from recliner due to lower starting point. After getting to [facility], pt requested therapist leave for privacy, therapist ensured call [place] within reach, and informed RN of pt location, RN entered room shortly thereafter. Goals Bed Mobility Goal Independent Transfer Goal Independent Gait Goal Minimal Assistance,Front Wheel Walker Gait Distance 20' Frequency of Treatment Frequency Of Treatment Once a Day Treatment Plan Physical Therapy Treatment Plan Bed Mobility Training,Transfer Training,Gait Training, Therapeutic Exercise,Discharge Planning,Neuromuscular Re-ed Other Recommendations and Next Treatment Activity tolerance, bed Focus mobility, increased gait distance Recommendations To Nursing Amount of Assist Needed 2 Person Assist Discharge Recommendations PT Discharge Recommendations Home with Assistance Other Discharge Recommendations Return to [facility] Transportation Needs at Discharge Private Vehicle,Wheelchair/ Cabulance
--- NOTE | 2022-05-29 12:37 | PM.PN.1 ---
Subjective Subjective Interval history: 61-year-old female with hypertension, class 3 obesity COPD with chronic hypoxic respiratory failure on 2 L at baseline, hyperlipidemia, obstructive sleep apnea, combined systolic and diastolic congestive heart failure, and thyroiditis who was initially admitted on 05/25/2022 with acute respiratory failure, BLANCA, presumed septic shock, and rhabdomyolysis.? She had worsening respiratory failure on May 26 in conjunction with increasing lethargy and required intubation/mechanical ventilation.? She failed her 1st spontaneous breathing trial on May 27, but passed her spontaneous breathing trial on May 28 and was successfully extubated. She was also weaned off of pressor support and sedation. She is using BiPAP intermittently. She is on 3 L of oxygen currently but reports her baseline is 2 L. Today, patient reports she is feeling quite well. She did have a bit of wheezing this morning and underwent a nebulizer treatment. During nebulizer treatment she had another nonsustained run of torsades de Pointe. She denies having any symptoms at the time of the arrhythmia. The torsades resolved with discontinuation of the nebulizer treatment. Her main complaint this morning is her wheezing and wanting to comb her hair. She is looking forward to getting out bed. Exam Vital Signs (past 8 hours): - 05/29/22 04:50 05/29/22 05:00 05/29/22 05:00 Temperature Pulse Rate 69 Respiratory Rate 32 H Blood Pressure 118/67 Pulse Oximetry 92 Oxygen Delivery Method CPAP Oxygen Flow Rate 3 3 Fraction of Inspired Oxygen 05/29/22 06:43 05/29/22 06:00 05/29/22 06:00 Temperature Pulse Rate 73 75 Respiratory Rate 20 33 H Blood Pressure 112/62 Pulse Oximetry 97 97 Oxygen Delivery Method Nasal Cannula Oxygen Flow Rate 3 3 3 Fraction of Inspired Oxygen 32 05/29/22 06:42 05/29/22 06:56 05/29/22 06:56 Temperature Pulse Rate 75 73 Respiratory Rate 33 H 27 H Blood Pressure 115/72 Pulse Oximetry 96 96 Oxygen Delivery Method Oxygen Flow Rate 3 3 3 Fraction of Inspired Oxygen 05/29/22 07:00 05/29/22 07:00 05/29/22 07:20 Temperature Pulse Rate 74 74 Respiratory Rate 31 H 42 H Blood Pressure 121/57 L Pulse Oximetry 95 94 Oxygen Delivery Method Oxygen Flow Rate 3 3 3 Fraction of Inspired Oxygen 05/29/22 10:00 05/29/22 08:00 05/29/22 08:00 Temperature 97.5 F L Pulse Rate 68 Respiratory Rate 27 H Blood Pressure 114/74 Pulse Oximetry 97 Oxygen Delivery Method Oxygen Flow Rate 3 3 Fraction of Inspired Oxygen 05/29/22 09:00 05/29/22 09:00 05/29/22 10:15 Temperature Pulse Rate 97 H Respiratory Rate 19 Blood Pressure 118/69 125/83 Pulse Oximetry 94 Oxygen Delivery Method Oxygen Flow Rate 3 3 3 Fraction of Inspired Oxygen 05/29/22 10:15 05/29/22 11:02 05/29/22 11:02 Temperature Pulse Rate 85 80 Respiratory Rate 27 H 36 H Blood Pressure 122/95 H Pulse Oximetry 93 94 Oxygen Delivery Method Oxygen Flow Rate 3 3 3 Fraction of Inspired Oxygen 05/29/22 11:06 05/29/22 11:35 Temperature Pulse Rate 75 67 Respiratory Rate 28 H 20 Blood Pressure Pulse Oximetry 95 94 Oxygen Delivery Method High Flow Nasal Cannula Oxygen Flow Rate 3 3 Fraction of Inspired Oxygen Fraction of Inspired Oxygen 32 SaO2/FiO2 Ratio 303 Oxygen Delivery Method High Flow Nasal Cannula Oxygen Flow Rate 3 Narrative Exam Narrative: GEN: Alert and oriented x 3, NAD HEENT:NC, Face symmetric CHEST: Respiratory excursions symmetric, improved breath sounds overall with end expiratory wheezes bilaterally CV: RRR, no M/R/G ABD: Soft, obese, NT/ND, BT present in all 4 quadrants, nonreducible ventral hernia, irritation and erythema in the pannus skin folds EXTR: warm, well perfused, no C/C/E SKIN: warm and dry, no rash NEURO: Alert and oriented x 3, nonfocal Objective Labs 05/29/22 08:10 05/29/22 08:10 Labs: Laboratory Results - last 24 hr 05/29/22 05/29/22 08:10 08:10 WBC 7.8 RBC 3.28 L Hgb 10.5 L Hct 32.9 L MCV 100.2 H MCH 31.9 MCHC 31.9 RDW 19.0 H Plt Count 151 Neut % (Auto) 89.4 H Lymph % (Auto) 6.8 L [place] % (Auto) 3.7 Eos % (Auto) 0.0 L Baso % (Auto) 0.1 Neut # (Auto) 7000 Lymph # (Auto) 500 L [place] # (Auto) 300 Eos # (Auto) 0 Baso # (Auto) 0 Sodium 137 Potassium 4.8 Chloride 102 Carbon Dioxide 31 BUN 51 H Creatinine 1.40 H Estimated GFR 43 L BUN/Creatinine Ratio 36.4 H Glucose 272 H Calcium 8.6 Total Bilirubin 0.5 AST 26 ALT 34 Alkaline Phosphatase 45 Total Protein 6.4 Albumin 3.5 Globulin 2.9 Albumin/Globulin Ratio 1.2 PFSH Medical History (Updated 05/25/22 @ 19:18 by Jayne Muhammad DO) Chronic hypoxemic respiratory failure COPD (chronic obstructive pulmonary disease) DM2 (diabetes mellitus, type 2) HTN (hypertension) Obesity PONCE (obstructive sleep apnea) Systolic and diastolic CHF, chronic Thyroiditis Surgical History (Updated 05/25/22 @ 18:30 by Esteban Gillespie DO) S/P hernia surgery Family History (Updated 05/25/22 @ 18:31 by Esteban Gillespie DO) Mother No pertinent past medical history Father No pertinent past medical history Social History household members: other Smoking Status: Former smoker Assessment & Plan Assessment & Plan narrative: 1. Acute on chronic hypoxic respiratory failure Improved. She is now on nasal cannula O2 at 3 L. Baseline is 2 L. Remains on steroids for COPD exacerbation.? Discussed goal of increasing her mobility and activity today. She is very motivated to get up to the chair and begin working with therapy. 2. Undifferentiated shock, presumed septic but possibly cardiogenic Remains on empiric Rocephin and metronidazole.? She Is off pressors. Continue empiric antibiotics for now. 3. Acute on chronic combined systolic and diastolic congestive heart failure, with ejection fraction of 20-25%, mildly dilated left ventricle, moderate to severe global hypokinesis of the left ventricle, evidence of diastolic dysfunction as well as mild to moderately reduced right ventricular systolic function Diuretics were held in the setting of hypotension and BLANCA.? Will resume her carvedilol and torsemide to be initiated tomorrow. 4. BLANCA in the setting of likely chronic kidney disease Continued improvement with creatinine down to 1.4 today. 5. Nontraumatic rhabdomyolysis Now resolved with normal LFTs. 6. Acute myocardial injury Initial troponin was 0.052 in the emergency department.? On follow-up it was 0.038.? Given the downtrend, no further intervention planned. 7. Ventricular arrhythmia Patient had a nonsustained episode of what appears to be torsades de Pointe May 27 and again early this morning. Suspect it is secondary to patient's ventricular irritability. Electrolytes were within normal limits.? Will avoid nebulizer treatments as able. Restart patient's home COPD medications. 8. COPD with exacerbation Continue Solu-Medrol 40 mg IV q.12 hours.? Restarting Symbicort and Spiriva today. Likely will be able to transition to prednisone tomorrow. 8. Diabetes mellitus type 2 Hemoglobin A1c 9.7% on admission.? Patient is on 22 units of Lantus twice a day at baseline. Blood sugars have been quite elevated on 20 units at bedtime here. Will change to b.i.d. dosing. 9. Class 3 obesity BMI is 50.5.? Obesity significantly increases her risk for morbidity mortality. Resolved issues: Undifferentiated shock, presumed septic but possibly cardiogenic Code status Full Prophylaxis On heparin 7500 units 3 times daily Disposition Acute care. Physical therapy to start working with the patient today to determine discharge recommendation Time Spent With Patient Critical Care time: I spent a total of [] minutes of critical care time on this patient's care today; this time is exclusive of procedural time. Quality VTE Deep Vein Thrombosis/Pulmonary Embolism Present on Admission: No
--- NOTE | 2022-05-29 12:56 | PM.PN.EICU ---
Subjective Subjective IF CAMERA ACTIVATED, patient seen via real-time interactive audiovisual communication: Camera activated Consent obtained for tele-inspector conveyor line care: Yes Patient Location: ICU Provider location (State): [place] Other participants/roles: RN Interval history: atient awake alert and conversivce, in NAd. she was anuseated but now on 3l NC Current Medications Current Medications Medications: Home Medications acetaminophen 325 mg tablet (Tylenol) 650 mg PO TID 05/25/22 [History Confirmed 05/25/22] albuterol sulfate 90 mcg/actuation aerosol inhaler 4 puff inhalation Q4H PRN Wheezing 05/25/22 [History Confirmed 05/25/22] aspirin 81 mg tablet,delayed release 81 mg PO DAILY 05/25/22 [History Confirmed 05/25/22] budesonide-formoterol HFA 160 mcg-4.5 mcg/actuation aerosol inhaler 2 puff inhalation Q4H PRN Wheezing 05/25/22 [History Confirmed 05/25/22] bupropion HCl 150 mg tablet,12 hr sustained-release 150 mg PO BEDTIME 05/25/22 [History Confirmed 05/25/22] carvedilol 3.125 mg tablet 3.125 mg PO BID 05/25/22 [History Confirmed 05/25/22] cyanocobalamin (vitamin B-12) 500 mcg tablet 500 mcg PO DAILY 05/25/22 [History Confirmed 05/25/22] fenofibrate 160 mg tablet 160 mg PO DAILY 05/25/22 [History Confirmed 05/25/22] ferrous sulfate 325 mg (65 mg iron) tablet 325 mg PO DAILY 05/25/22 [History Confirmed 05/25/22] fluoxetine 20 mg tablet 20 mg PO DAILY 05/25/22 [History Confirmed 05/25/22] fluticasone propionate 50 mcg/actuation nasal spray,suspension 2 spray intranasal DAILY 05/25/22 [History Confirmed 05/25/22] gabapentin 300 mg capsule 300 mg PO BEDTIME 05/25/22 [History Confirmed 05/25/22] insulin glargine 100 unit/mL (3 mL) subcutaneous pen 22 unit SUBCUT BID 05/25/22 [History Confirmed 05/25/22] insulin lispro 100 unit/mL subcutaneous solution (Humalog U-100 Insulin) 4 unit SUBCUT TIDWM 05/25/22 [History Confirmed 05/25/22] levothyroxine 200 mcg tablet 200 mcg PO DAILY 05/25/22 [History Confirmed 05/25/22] lidocaine 5 % topical patch 1 patch topical DAILY 05/25/22 [History Confirmed 05/25/22] loratadine 10 mg tablet 10 mg PO DAILY 05/25/22 [History Confirmed 05/25/22] magnesium hydroxide 400 mg/5 mL oral suspension (Milk of Magnesia) 15 ml PO Q24H PRN Constipation 05/25/22 [History Confirmed 05/25/22] magnesium oxide 200 mg PO BID 05/25/22 [History Confirmed 05/25/22] meclizine 25 mg tablet 25 mg PO Q8HR PRN Dizziness 05/25/22 [History Confirmed 05/25/22] montelukast 10 mg tablet 10 mg PO DAILY 05/25/22 [History Confirmed 05/25/22] nystatin 100,000 unit/gram topical powder 1 applic topical BID PRN Rash 05/25/22 [History Confirmed 05/25/22] ondansetron 4 mg disintegrating tablet 4 mg PO Q8H PRN Nausea 05/25/22 [History Confirmed 05/25/22] rosuvastatin 40 mg tablet 40 mg PO DAILY 05/25/22 [History Confirmed 05/25/22] sennosides 8.6 mg tablet (senna) 17.2 mg PO BEDTIME 05/25/22 [History Confirmed 05/25/22] tiotropium bromide 18 mcg capsule with inhalation device (Spiriva with HandiHaler) 1 cap inhalation DAILY 05/25/22 [History Confirmed 05/25/22] torsemide 10 mg tablet 30 mg PO DAILY 05/25/22 [History Confirmed 05/25/22] trazodone 50 mg tablet 50 mg PO BEDTIME 05/25/22 [History Confirmed 05/25/22] Visit Medications (administered) Generic Name Dose Route Start Last Admin Trade Name Daniloq PRN Reason Stop Dose Admin Aspirin 81 mg 05/26/22 09:00 05/29/22 08:24 Aspirin Ec 81 Mg Tablet PO 81 mg DAILY JAY JAY Administration Bupropion HCl 150 mg 05/27/22 21:00 05/28/22 21:30 Bupropion Xl 150 Mg Tab PO 150 mg BEDTIME JAY JAY Administration Famotidine 20 mg 05/27/22 10:30 05/29/22 08:25 Famotidine 20 Mg/2 Ml Vial IV 20 mg DAILY JAY JAY Administration Gabapentin 300 mg 05/26/22 21:00 05/28/22 21:30 Gabapentin 300 Mg Capsule PO 300 mg BEDTIME JAY JAY Administration Heparin Sodium (Porcine) 50 unit 05/25/22 19:32 05/29/22 08:51 Heparin Flush (Cl/Picc/Mid-Line) 50 Unit/5 Ml Syringe IV 50 unit PRN PRN Administration Flush Heparin Sodium (Porcine) 7,500 unit 05/26/22 22:00 05/29/22 05:45 Heparin 5,000 Unit/Ml Vial SUBCUT 7,500 unit Q8HR JAY JAY Administration NOREPINEPHRINE BITARTRATE/D5W 4 mg in 250 mls @ 30 mls/hr 05/25/22 12:42 05/27/22 09:20 Levophed IV 0 mcg/min TITRATE JAY JAY 0 mls/hr Titration Protocol 8 MCG/MIN Ceftriaxone Sodium 1,000 mg/ 100 mls @ 200 mls/hr 05/25/22 19:00 05/28/22 18:44 Sodium Chloride IV 200 mls/hr Q24H JAY JAY Administration Propofol 1,000 mg in 100 mls @ 3.99 mls/hr 05/26/22 09:15 05/28/22 08:50 Propofol IV 0 mcg/kg/min TITRATE JAY JAY 0 mls/hr Titration Protocol 5 MCG/KG/MIN Fentanyl 1,000 mcg/ Dextrose 250 mls @ 23.275 mls/hr 05/26/22 09:15 05/28/22 08:50 IV 0 mcg/kg/hr TITRATE JAY JAY 0 mls/hr Titration Protocol 0.7 MCG/KG/HR Metronidazole 500 mg in 100 mls @ 100 mls/hr 05/26/22 15:45 05/29/22 09:05 Flagyl IV Infused Q8H JAY JAY Infusion Insulin Glargine 20 unit 05/29/22 09:00 05/29/22 08:23 Insulin Glargine 100 Unit/Ml 3ml Pen SUBCUT 20 unit BID JAY JAY Administration Insulin Human Lispro 0 unit 05/28/22 09:08 05/29/22 12:29 Insulin Lispro 100 Unit/Ml 3ml Vial SUBCUT 10 unit ACHS JAY JAY Administration Protocol Insulin Human Lispro 4 unit 05/29/22 08:00 05/29/22 12:29 Insulin Lispro 100 Unit/Ml 3ml Vial SUBCUT 4 unit TIDWM JAY JAY Administration Levothyroxine Sodium 200 mcg 05/26/22 08:15 05/29/22 05:46 Levothyroxine 100 Mcg Tablet PO 200 mcg 0600 JAY JAY Administration Lidocaine 1 each 05/26/22 09:00 05/29/22 08:24 Lidocaine Patch 1 Each Adh..Patch TOP 1 each DAILY JAY JAY Administration Lidocaine 1 each 05/27/22 21:00 05/28/22 21:31 Remove Lidocaine Patch TOP 1 each BEDTIME JAY JAY Administration Loratadine 10 mg 05/26/22 09:00 05/29/22 08:24 Loratadine 10 Mg Tablet PO 10 mg DAILY JAY JAY Administration Magnesium Oxide 200 mg 05/29/22 09:00 05/29/22 08:51 Magnesium Oxide 400 Mg Tablet PO 200 mg BID JAY JAY Administration Methylprednisolone 40 mg 05/25/22 19:20 05/29/22 12:22 Methylprednisolone 40 Mg/Ml Vial IV 40 mg Q12HR JAY JAY Administration Montelukast Sodium 10 mg 05/26/22 09:00 05/29/22 08:25 Montelukast 10 Mg Tablet PO 10 mg DAILY JAY JAY Administration Nystatin 1 applic 05/26/22 17:38 05/29/22 08:27 Nystatin Powder 15gm TOP 1 applic BID PRN Administration Rash Sodium Chloride 10 ml 05/25/22 19:32 05/29/22 00:24 Sodium Chloride 0.9% Flush IV 10 ml PRN PRN Administration Flush Sodium Chloride 10 ml 05/25/22 21:00 05/29/22 08:25 Sodium Chloride 0.9% Flush IV 10 ml BID JAY JAY Administration Objective Ventilator Parameters: Ventilator Settings FiO2 35 RT Vent Frequency 16 Ventilator Tidal Volume 350 Exhaled Vt/kg IBW 6 Positive End Expiratory 5 Pressure Inspiratory Phase Time 0.85 I:E Ratio 1:3.4 Patient Position HOB >= 30 degrees Labs 05/29/22 08:10 05/29/22 08:10 Labs: Laboratory Results - last 24 hr 05/29/22 05/29/22 08:10 08:10 WBC 7.8 RBC 3.28 L Hgb 10.5 L Hct 32.9 L MCV 100.2 H MCH 31.9 MCHC 31.9 RDW 19.0 H Plt Count 151 Neut % (Auto) 89.4 H Lymph % (Auto) 6.8 L [place] % (Auto) 3.7 Eos % (Auto) 0.0 L Baso % (Auto) 0.1 Neut # (Auto) 7000 Lymph # (Auto) 500 L [place] # (Auto) 300 Eos # (Auto) 0 Baso # (Auto) 0 Sodium 137 Potassium 4.8 Chloride 102 Carbon Dioxide 31 BUN 51 H Creatinine 1.40 H Estimated GFR 43 L BUN/Creatinine Ratio 36.4 H Glucose 272 H Calcium 8.6 Total Bilirubin 0.5 AST 26 ALT 34 Alkaline Phosphatase 45 Total Protein 6.4 Albumin 3.5 Globulin 2.9 Albumin/Globulin Ratio 1.2 Exam Vital Signs (past 8 hours): - 05/29/22 05:00 05/29/22 05:00 05/29/22 06:43 Temperature Pulse Rate 69 73 Respiratory Rate 32 H 20 Blood Pressure 118/67 Pulse Oximetry 92 97 Oxygen Delivery Method Nasal Cannula Oxygen Flow Rate 3 3 3 Fraction of Inspired Oxygen 32 05/29/22 06:00 05/29/22 06:00 05/29/22 06:42 Temperature Pulse Rate 75 75 Respiratory Rate 33 H 33 H Blood Pressure 112/62 Pulse Oximetry 97 96 Oxygen Delivery Method Oxygen Flow Rate 3 3 3 Fraction of Inspired Oxygen 05/29/22 06:56 05/29/22 06:56 05/29/22 07:00 Temperature Pulse Rate 73 74 Respiratory Rate 27 H 31 H Blood Pressure 115/72 Pulse Oximetry 96 95 Oxygen Delivery Method Oxygen Flow Rate 3 3 3 Fraction of Inspired Oxygen 05/29/22 07:00 05/29/22 07:20 05/29/22 10:00 Temperature 97.5 F L Pulse Rate 74 Respiratory Rate 42 H Blood Pressure 121/57 L Pulse Oximetry 94 Oxygen Delivery Method Oxygen Flow Rate 3 3 Fraction of Inspired Oxygen 05/29/22 08:00 05/29/22 08:00 05/29/22 09:00 Temperature Pulse Rate 68 Respiratory Rate 27 H Blood Pressure 114/74 118/69 Pulse Oximetry 97 Oxygen Delivery Method Oxygen Flow Rate 3 3 3 Fraction of Inspired Oxygen 05/29/22 09:00 05/29/22 10:15 05/29/22 10:15 Temperature Pulse Rate 97 H 85 Respiratory Rate 19 27 H Blood Pressure 125/83 Pulse Oximetry 94 93 Oxygen Delivery Method Oxygen Flow Rate 3 3 3 Fraction of Inspired Oxygen 05/29/22 11:02 05/29/22 11:02 05/29/22 11:06 Temperature Pulse Rate 80 75 Respiratory Rate 36 H 28 H Blood Pressure 122/95 H Pulse Oximetry 94 95 Oxygen Delivery Method Oxygen Flow Rate 3 3 3 Fraction of Inspired Oxygen 05/29/22 11:35 Temperature Pulse Rate 67 Respiratory Rate 20 Blood Pressure Pulse Oximetry 94 Oxygen Delivery Method High Flow Nasal Cannula Oxygen Flow Rate 3 Fraction of Inspired Oxygen Fraction of Inspired Oxygen 32 SaO2/FiO2 Ratio 303 Oxygen Delivery Method High Flow Nasal Cannula Oxygen Flow Rate 3 Narrative Exam Narrative: surrogste for phsyical exam is primary team Quality TeleICU VTE Deep Vein Thrombosis/Pulmonary Embolism Present on Admission: No Assessment & Plan Assessment & Plan narrative: altered mental status acute metabolic encephalopathy acute resp failure acute renal failure Rhabodymylysis severe sepsis with septic shock, unclear source currently afebrile, HD stable, off pressors on 3l NC mental sttus at baseline suggest - cont NC -bipap qhs -adat - map at goal - steroid taper -echo, reduced EF, resume GDMT - atrovent only, can add xopenex given VT per chart review - woudl stop abx given neg cx and low procal -monitor ins/outs -replace lytes prn -keep glucose 140-180s -gi/dvt ppx teleicu will sign off given imrpovmeent, please do not hesitate to call for anything Time Spent With Patient Critical Care time: I spent a total of [] minutes of critical care time on this patient's care today; this time is exclusive of procedural time.
[2022-05-29] MEDS: MAGNESIUM HYDROXIDE 30 ML UDC 15 ML PO (13:54)
[2022-05-29] MEDS: IPRATROPIUM 0.5 MG/2.5 ML NEB INH ×2 (15:17→19:25)
[2022-05-29] MEDS: cefTRIAXone 1,000 MG in SODIUM CHLORIDE 0.9% 100 ML 200 MG IV (18:41)
[2022-05-29] MEDS: BUDESONIDE 0.5 MG/2 ML NEB INH (19:25)
[2022-05-29] MEDS: GABAPENTIN 300 MG CAPSULE PO (21:02)
[2022-05-29] MEDS: carvediloL 3.125 MG TABLET PO (21:02)
[2022-05-29] MEDS: buPROPion XL 150 MG TAB PO (21:03)
[2022-05-30] VITALS (62 sets, daily range): BP systolic 113–151; BP diastolic 61–84; PULSE 55–92; RESP 18–76; TEMP 36.2–37.1; O2SAT 87–99
--- NOTE | 2022-05-30 03:34 | RT ---
Pt is awake and off CPAP at this time. RN placed the pt back on nasal cannula. No apparent distress noted.
--- NOTE | 2022-05-30 05:01 | PC.NURSE ---
Patient wearing cpap for most of night. Awakening about 0400 and wanting to go back to nasal cannula. O2 sats stable at present time.
[2022-05-30 05:06] LABS: Add Manual Diff / Slide Review NO; Basophils Absolute Auto 0 /uL (0-100); Eosinophils Absolute Auto 0 /uL (0-450); Hematocrit 33.9 % (36-46); Hemoglobin 10.9 g/dL (12.0-16.0); Lymphocytes Absolute Auto 700 /uL (1100-4500); Lymphocytes Percent Auto 8.1 % (25-40); Mean Corpuscular HGB Conc 32.1 % (30-36); Mean Corpuscular Hemoglobin 31.9 PG (26-34); Mean Corpuscular Volume 99.2 fL (80-100); Monocytes Absolute Auto 500 /uL (0-900); Monocytes Percent Auto 5.8 % (3-14); Neutrophils Absolute Auto 7500 /uL (1500-7000); Neutrophils Percent Auto 86.1 % (50-75); Platelet Count 146 X10^3/uL (150-400); Red Blood Cell Count 3.42 X10^6/uL (4.0-5.2); Red Cell Distribution Width 19.1 % (11.6-14.8); White Blood Cell Count 8.7 X10^3/uL (4.5-11.0)
[2022-05-30 05:28] LABS: Alanine Aminotransferase 35 IU/L (<35); Albumin 3.6 g/dL (3.5-5.0); Albumin Globulin Ratio 1.1 (1.0-2.8); Alkaline Phosphatase 81 U/L (38-126); Aspartate Aminotransferase 27 IU/L (14-36); BUN Creatinine Ratio 40.7 (6-22); Bilirubin Total 0.5 mg/dL (0.2-1.3); Blood Urea Nitrogen 57 mg/dL (7-17); Calcium 8.5 mg/dL (8.4-10.2); Carbon Dioxide 31 mmol/L (22-32); Chloride 101 mmol/L (98-107); Estimated Glomerular Filt Rate 43 mL/min (>60); Globulin 3.2 g/dL (1.7-4.1); Glucose 271 mg/dL (80-110); HEMOLYSIS 16 (0-50); Potassium 4.9 mmol/L (3.4-5.1); Sodium 138 mmol/L (137-145); Total Protein 6.8 g/dL (6.3-8.2)
[2022-05-30] MEDS: HEPARIN 5,000 UNIT/ML VIAL 7500 UNIT SUBCUT ×3 (05:34→21:44)
[2022-05-30] MEDS: LEVOTHYROXINE 100 MCG TABLET 200 MCG PO (05:34)
[2022-05-30] MEDS: IPRATROPIUM 0.5 MG/2.5 ML NEB INH ×4 (06:17→19:27)
[2022-05-30] MEDS: BUDESONIDE 0.5 MG/2 ML NEB INH ×2 (06:17→19:27)
[2022-05-30] MEDS: metroNIDAZOLE 500 MG/100 ML PIGGYBACK 100 MG IV ×2 (08:16→15:37)
[2022-05-30] MEDS: FAMOTIDINE 20 MG/2 ML VIAL IV (08:16)
[2022-05-30] MEDS: MAGNESIUM OXIDE 400 MG TABLET 200 MG PO ×2 (08:16→21:41)
[2022-05-30] MEDS: carvediloL 3.125 MG TABLET PO ×2 (08:16→21:40)
[2022-05-30] MEDS: ASPIRIN EC 81 MG TABLET PO (08:16)
[2022-05-30] MEDS: LORATADINE 10 MG TABLET PO (08:17)
[2022-05-30] MEDS: FLUoxetine 20 MG CAPSULE PO (08:17)
[2022-05-30] MEDS: TORSEMIDE 10 MG TABLET 30 MG PO (08:17)
[2022-05-30] MEDS: MONTELUKAST 10 MG TABLET PO (08:17)
[2022-05-30] MEDS: FLUTICASONE 120 SPRAY/16 GM SPRAY.SUSP NASAL (08:18)
[2022-05-30] MEDS: SODIUM CHLORIDE 0.9% FLUSH 10 ML IV ×2 (08:18→21:41)
--- NOTE | 2022-05-30 08:40 | PM.PN.1 ---
Subjective Subjective Interval history: Patient feeling better today. Now on dysphagia diet after speech eval. She says her legs are alot less swollen. PT cleared for home. Exam Vital Signs (past 8 hours): - 05/30/22 01:21 05/30/22 02:10 05/30/22 02:17 Temperature Pulse Rate 59 L 55 L Respiratory Rate 37 H 49 H Blood Pressure 114/67 Pulse Oximetry 98 98 Oxygen Delivery Method Oxygen Flow Rate 3 3 3 Fraction of Inspired Oxygen 05/30/22 02:17 05/30/22 03:01 05/30/22 04:00 Temperature 98.1 F Pulse Rate 56 L 70 Respiratory Rate 48 H 29 H Blood Pressure 121/77 Pulse Oximetry 98 97 Oxygen Delivery Method Oxygen Flow Rate 3 3 4 Fraction of Inspired Oxygen 05/30/22 04:00 05/30/22 04:23 05/30/22 05:01 Temperature Pulse Rate 76 73 78 Respiratory Rate 31 H 28 H 29 H Blood Pressure Pulse Oximetry 96 97 98 Oxygen Delivery Method Oxygen Flow Rate 4 4 4 Fraction of Inspired Oxygen 05/30/22 05:00 05/30/22 06:17 05/30/22 08:16 Temperature Pulse Rate 75 68 Respiratory Rate 20 Blood Pressure 131/75 Pulse Oximetry 97 Oxygen Delivery Method Nasal Cannula High Flow Nasal Cannula Oxygen Flow Rate 3 Fraction of Inspired Oxygen 32 Fraction of Inspired Oxygen 32 SaO2/FiO2 Ratio 303 Oxygen Delivery Method High Flow Nasal Cannula Oxygen Flow Rate 3 Narrative Exam Narrative: GEN: Alert and oriented x 3, NAD HEENT:NC, Face symmetric CHEST: Respiratory excursions symmetric, improved breath sounds overall with improved end expiratory wheezes bilaterally CV: RRR, no M/R/G ABD: Soft, obese, NT/ND, BT present in all 4 quadrants, nonreducible ventral hernia, irritation and erythema in the pannus skin folds EXTR: warm, well perfused, no C/C/E SKIN: warm and dry, no rash NEURO: Alert and oriented x 3, nonfocal Objective Labs 05/30/22 04:15 05/30/22 04:15 Labs: Laboratory Results - last 24 hr 05/29/22 05/29/22 05/30/22 08:10 08:10 04:15 WBC 7.8 8.7 RBC 3.28 L 3.42 L Hgb 10.5 L 10.9 L Hct 32.9 L 33.9 L MCV 100.2 H 99.2 MCH 31.9 31.9 MCHC 31.9 32.1 RDW 19.0 H 19.1 H Plt Count 151 146 L Neut % (Auto) 89.4 H 86.1 H Lymph % (Auto) 6.8 L 8.1 L [place] % (Auto) 3.7 5.8 Eos % (Auto) 0.0 L 0.0 L Baso % (Auto) 0.1 0.0 Neut # (Auto) 7000 7500 H Lymph # (Auto) 500 L 700 L [place] # (Auto) 300 500 Eos # (Auto) 0 0 Baso # (Auto) 0 0 Sodium 137 Potassium 4.8 Chloride 102 Carbon Dioxide 31 BUN 51 H Creatinine 1.40 H Estimated GFR 43 L BUN/Creatinine Ratio 36.4 H Glucose 272 H Calcium 8.6 Total Bilirubin 0.5 AST 26 ALT 34 Alkaline Phosphatase 45 Total Protein 6.4 Albumin 3.5 Globulin 2.9 Albumin/Globulin Ratio 1.2 05/30/22 04:15 WBC RBC Hgb Hct MCV MCH MCHC RDW Plt Count Neut % (Auto) Lymph % (Auto) [place] % (Auto) Eos % (Auto) Baso % (Auto) Neut # (Auto) Lymph # (Auto) [place] # (Auto) Eos # (Auto) Baso # (Auto) Sodium 138 Potassium 4.9 Chloride 101 Carbon Dioxide 31 BUN 57 H Creatinine 1.40 H Estimated GFR 43 L BUN/Creatinine Ratio 40.7 H Glucose 271 H Calcium 8.5 Total Bilirubin 0.5 AST 27 ALT 35 H Alkaline Phosphatase 81 Total Protein 6.8 Albumin 3.6 Globulin 3.2 Albumin/Globulin Ratio 1.1 [facility] Medical History (Updated 05/25/22 @ 19:18 by Jayne Muhammad DO) Chronic hypoxemic respiratory failure COPD (chronic obstructive pulmonary disease) DM2 (diabetes mellitus, type 2) HTN (hypertension) Obesity PONCE (obstructive sleep apnea) Systolic and diastolic CHF, chronic Thyroiditis Surgical History (Updated 05/25/22 @ 18:30 by Esteban Gillespie DO) S/P hernia surgery Family History (Updated 05/25/22 @ 18:31 by Esteban Gillespie DO) Mother No pertinent past medical history Father No pertinent past medical history Social History household members: other Smoking Status: Former smoker Assessment & Plan Assessment & Plan narrative: 1. Acute on chronic hypoxic respiratory failure, improving She is now on nasal cannula O2 at 3 L. Baseline is 2 L. Remains on steroids for COPD exacerbation.?Will finish prednisone to finish 5 day course. 2. Undifferentiated shock, presumed septic but possibly cardiogenic, resolved Initially on empiric Rocephin and metronidazole.? She is off pressors. Stopped abx as cultures negative and procal 0.2. 3. Acute on chronic combined systolic and diastolic congestive heart failure, with ejection fraction of 20-25%, mildly dilated left ventricle, moderate to severe global hypokinesis of the left ventricle, evidence of diastolic dysfunction as well as mild to moderately reduced right ventricular systolic function Diuretics were held in the setting of hypotension and BLANCA.? Will resume her carvedilol and torsemide to be initiated tomorrow. 4. BLANCA in the setting of likely chronic kidney disease, improving Continued improvement with creatinine down to 1.4. 5. Nontraumatic rhabdomyolysis Now resolved with normal LFTs. 6. Acute myocardial injury Initial troponin was 0.052 in the emergency department.? On follow-up it was 0.038.? Given the downtrend, no further intervention planned. 7. Ventricular arrhythmia Patient had a nonsustained episode of what appears to be tors[place] de Po[place] May 27 and again early this morning. Suspect it is secondary to patient's ventricular irritability. Electrolytes were within normal limits.? Will avoid nebulizer treatments as able. Restart patient's home COPD medications. 8. COPD with exacerbation Initially on Solu-Medrol 40 mg IV q.12 hours.? Given Symbicort and Spiriva. Now on po prednisone to finish 5 days. 8. Diabetes mellitus type 2 Hemoglobin A1c 9.7% on admission.? Patient is on 22 units of Lantus twice a day at baseline. Blood sugars have been quite elevated on 20 units at bedtime here. Changed to b.i.d. dosing. 9. Class 3 obesity BMI is 50.5.? Obesity significantly increases her risk for morbidity mortality. Resolved issues: Undifferentiated shock, presumed septic but possibly cardiogenic Code status Full Prophylaxis On heparin 7500 units 3 times daily Disposition Likely home in 1-2 days with . Time Spent With Patient Critical Care time: I spent a total of [] minutes of critical care time on this patient's care today; this time is exclusive of procedural time. Quality VTE Deep Vein Thrombosis/Pulmonary Embolism Present on Admission: No
[2022-05-30] MEDS: INSULIN LISPRO 100 UNIT/ML 3ML VIAL SUBCUT ×6 (09:05→21:42)
[2022-05-30] MEDS: INSULIN GLARGINE 100 UNIT/ML 3ML PEN 20 UNIT SUBCUT ×2 (10:16→21:43)
[2022-05-30] MEDS: predniSONE 20 MG TABLET 40 MG PO (10:21)
[2022-05-30] MEDS: ATORVASTATIN 20 MG TABLET 80 MG PO (10:22)
[2022-05-30] MEDS: FERROUS SULFATE 325 MG TABLET PO (10:22)
[2022-05-30] MEDS: FENOFIBRATE, MICRONIZED 67 MG CAPSULE 201 MG PO (10:22)
--- NOTE | 2022-05-30 10:55 | ST.IPCSEOM ---
Visit Care Team Role Provider Type Simone Rodgers MD Primary Care Provider Non-Staff Specialty: Family Practice Address: [address], [address] Email: Jayne Muhammad DO Emergency Provider Physician Referring Provider Specialty: Emergency Medicine Address: [address] [place] [address], [id number] Email: [email or web address] Esteban Gillespie DO Admit Provider Physician Attending Provider Specialty: Internal Medicine Address: [address] [place] [address], [id number] Email: [email or web address] Current Diagnoses Acute respiratory failure with hypercapnia (05/25/22) Acute and chronic respiratory failure with hypoxia (05/25/22) Past Medical History (Last Updated 05/25/22 @ 18:30 by Esteban Gilelspie DO) Chronic hypoxemic respiratory failure (Medical) COPD (chronic obstructive pulmonary disease) (Medical) DM2 (diabetes mellitus, type 2) (Medical) HTN (hypertension) (Medical) Obesity (Medical) PONCE (obstructive sleep apnea) (Medical) Systolic and diastolic CHF, chronic (Medical) Thyroiditis (Medical) Speech-Language Pathology Swallow 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 Clinical Swallow Evaluation Start: 05/30/22 09:33 Freq: Status: Active Protocol: Document 05/30/22 09:33 ZS (Rec: 05/30/22 09:38 ZS [id number]) Clinical Swallow Evaluation Session Time Visit Start Time 09:10 Visit Stop Time 09:30 Total Visit Minutes 20 Setting Assessment Location Acute Care Visit Type Note Type Initial evaluation Next Note Type Next Note Type Treatment Note Patient Information Identification Type Name,Wristband History Per H&P: 61-year-old female with hypertension, class 3 obesity COPD with chronic hypoxic respiratory failure on 2 L at baseline, hyperlipidemia, obstructive sleep apnea, combined systolic and diastolic congestive heart failure, and thyroiditis who was initially admitted on 05/25/2022 with acute respiratory failure, BLANCA, presumed septic shock, and rhabdomyolysis.? She had worsening respiratory failure on May 26 in conjunction with increasing lethargy and required intubation/mechanical ventilation.? She failed her 1st spontaneous breathing trial on May 27, but passed her spontaneous breathing trial on May 28 and was successfully extubated . She was also weaned off of pressor support and sedation. She is using BiPAP intermittently. She is on 3 L of oxygen currently but reports her baseline is 2 L. Subjective Observations Pt was seated upright in chair when BUILDING ARCHITECTURAL DESIGNER arrived. NSG reported pt was on carbohydrate consistent diet yesterday and had a choking episode. Pt reported her dentures do not fit properly and she does not wear them when eating. She lives at [facility] and baseline diet is regular textures (pt reported eating salad, gramajo, and steak ), though she has trouble when meat is dry. Pt reported to NSG that this was not her first choking episode. Pt reported having swallow study done several years ago in [place], [place] and findings indicated pooling near the flap in [her] throat (likely pooling in valleculla). She added food will sometimes get stuck and go down slowly pointing to the base of her neck/high chest area and that food will sometimes come back up later. Reported by Patient Other Symptoms Choking,Coughing Current Diet Nothing by mouth Baseline Feeding Method Independent in self-feeding Objective Assessment Mental Status Alert,Responsive,Cooperative Oral Integrity WFL Dentition Missing teeth,Upper dentures/ partials,Poor denture or partial fitting Lip Function Within normal limits Observation of Lips at Rest Symmetrical Pucker Within normal limits Lip Retraction Within normal limits Alternating Pucker/Lip Retraction Within normal limits Tongue Function Within normal limits Observations of Tongue at Rest Within normal limits Tongue Protrusion Within normal limits Tongue Lateralization Within normal limits Jaw Function Within normal limits Observations of Jaw at Rest Within normal limits Jaw Opening Within normal limits Jaw Closing Within normal limits Hard/Soft Palate Function Within normal limits Observations of Hard/Soft Palate Within normal limits Nasality Within normal limits Phonation Within normal limits Comment Structures were symmetrical at rest and in motion. Tongue, lips, and jaw strength and ROM were WNL. Pt has about 8 lower teeth and no upper teeth . She reported owning dentures that do not fit properly and stated she does not wear dentures. Lack of dentition limits pt's ability to masticate food, but otherwise structure and function of oral mechanism appears WNL. Food and Liquid Trials Position During Assessment Upright (90 degrees),In chair Liquids Trialed Ice chips,Thin Solids Trialed Puree,Dysphagia Mechanical Administration Type Tea spoon,Cup single sip,Straw ,Self-feeding Oral Impairment Mildly impaired Oral Phase Comments Pt presents with limited dentition that negatively impacts her ability to masticate foods. She managed thin liquids and applesauce with no difficulty and no oral residue. Pt reported pain when eating dysphagia mechanical texture (pudding and bam cracker), though stated she could eat it. Did not complete advanced textures due to lack of dentition. Pharyngeal Impairment Within functional limits Pharyngeal Phase Comments Pt exhibited slight cough/ throat clear following applesauce x1 and pudding x1, though vocal quality remained clear. Cough may be related to reported pooling in valleculla that was observed at pt's previous MBS. No overt signs or symptoms of aspiration observed with thin liquids. Silent aspiration cannot be evaluated with clinical swallow assessment. Comment Unable to assess fatigue given limited trials completed. Will continue to observe and assess. Strategies Attempted Chin tuck Response/Comments Discussed use of chin tuck when swallowing if pt notices additional coughing/throat clearing while eating. Pt expressed understanding. Findings Swallowing Function Oropharyngeal phase dysphagia Severity of Swallow Impairment Mildly impaired Contributing Factors to Swallow Mastication inefficiency, Impairment Excessive pharyngeal residue Prognosis Fair Based on Cognitive status,Age,History of aspiration/aspiration pneumonia,Comorbidities Comment The pt presents with mild oropharyngeal dysphagia characterized by mastication inefficiency and suspected pharyngeal residue. The pt has limited dentition and does not wear dentures while eating . Despite limited dentition, pt was consuming regular diet at baseline and had multiple choking episodes. Choking is likely due to eating foods requiring mastication (e.g., steak, salad, gramajo) without appropriate dentition to masticate it. Additionally, pt reported MBS was completed several years ago and indicated pooling in her throat, which is likely residue in the valleculla. Pt exhibited slight cough/throat clear x2 during assessment, which could be related to residue. Provided education regarding chin tuck and will provide exercises to aid in epiglottic inversion for reduced residue. Recommend dysphagia mechanical diet with thin liquids and follow-up with speech therapy to provide oral motor exercises for improved epiglottic inversion to increase swallow safety with oral intake. Impact on Safety and Functioning Risk for aspiration Recommendations Instrumental Assessment No Swallowing Treatment Yes Recommended Solids Dysphagia Mechanical Recommended Liquids Thin Safety Precautions/Swallowing Feed only when alert,Reduce Recommendations distractions,Remain upright ( 90 degrees) during all oral intake,Upright position at least 30 minutes after meals, Small bites and sips when eating,Slow rate; swallow between bites,No straw Medication Recommendations As Tolerated Education Patient/Caregiver Education Described results of evaluation,Patient expressed understanding of evaluation, Patient expressed agreement with goals & treatment plans, Patient expressed understanding of safety precautions,Patient expressed understanding of feeding recommendations,Patient requires further education/ training Goals Short-term Goals 1. Pt will participate in education regarding swallow safety, diet textures, and mastication. 2. Pt will perform safe swallow strategies with oral intake independently to reduce risk of aspiration. 3. The pt will perform exercises to increase strength , coordination, and ROM of swallow musculature independently to reduce risk of aspiration and increase comfort with oral intake. Long-term Goals The pt will safelty tolerate least restrictive diet without overt signs/symptoms of aspiration to meet her nutrition and hydration needs.
--- NOTE | 2022-05-30 12:55 | PT.IPTN ---
Current Diagnoses Acute respiratory failure with hypercapnia (05/25/22) Acute and chronic respiratory failure with hypoxia (05/25/22) Physical Therapy Treatment Note M2 PT-IP Current Condition Start: 05/29/22 09:55 Freq: NEEDED Status: Active Protocol: Document 05/29/22 09:02 DCW (Rec: 05/29/22 10:10 DCW [id number]) Physical Therapy Current Condition Current Condition Evaluation Date 05/29/22 Treatment Diagnosis Weakness, fatigue, hypoxia Onset Date 05/25/22 M3 PT-IP Subjective Start: 05/29/22 09:55 Freq: NEEDED Status: Active Protocol: Document 05/30/22 13:22 TS (Rec: 05/30/22 14:25 TS [id number]) Subjective Physical Therapy Visit Type Type Treatment Note Visit Start Time 12:55 Visit Stop Time 13:19 Total Visit Minutes 24 Notes Spo2:2L at rest 93, 2L with mobilization 80-85, 3L supine 96. Physical Therapy Visit Comments Patient Comments Pt reports she is ready to get back to bed and agreeable to PT session. M4 PT-IP Mobility and Gait Start: 05/29/22 09:55 Freq: NEEDED Status: Active Protocol: Document 05/30/22 13:22 TS (Rec: 05/30/22 14:25 TS [id number]) PT-Bed Mobility Assessment Sit to Supine Sit to Supine Minimal Assistance Scooting Scooting Up and Down in Bed Minimal Assistance PT-Transfer Assessment Sit to and From Stand Sit to and from Stand Minimal Assistance,1 Person Assistance Equipment Transfer Assistive Device Bed Rail,Gait Belt,Front Wheeled Walker Comments Mobility Comments Pt found resting in bed side chair just after lunch on 2L of O2 at 93%, agreeable to PT session. Pt performed sit to stand x2 w/FWW with cues for BUE support on arms of chair, 1st attempt could not stand, 2nd attempt Stella x1. Once in standing pt required hand over hand assist for better director of leadership development on FWW (she leans on FWW). She ambulated SBA around bed from chair ~15', with shuffle gait , reported legs feeling slightly weak, no signs of buckling or SOB. Pt performed sit to supine with BUE support with handrails for righting trunk and Stella for LE's back into bed, the bed is very high making it more difficult for her to get her legs in bed. Nursing assisted with scooting up in bed Stella x2 and provided cues for pt to use BUE on rails and to push heels into bed. Pt's O2 decreased to low 80's on 2L during bed mobility back up to 96 with 3L of O2 supine. Pt left in bed with call light nearby,food tray and happy to be back in bed. Gait Assessment Gait Gait Assistance Required: Standby Assistance Distance (Feet) 15 Comments Gait Comments See mobility comments. PT-Balance Assessment Sitting Balance and Reactions Static Sitting Balance Ability Good Dynamic Sitting Balance Ability Fair Standing Balance and Reactions Static Standing Balance Ability Good Comments Other Balance Tests/Deviations/Treatment Pt could maintain midline : sitting on EOB and could reach out of LEO for handrails. Static standing balance in FWW was good and didn't show any signs of buckling, reported legs feeling weak. M5 PT-IP Objective Assessments Start: 05/29/22 09:55 Freq: NEEDED Status: Active Protocol: Document 05/29/22 09:02 DCW (Rec: 05/29/22 10:10 DCW [id number]) Orientation Orientation/Cognition Level of Alertness Alert Orientation Name,Birthday,Month,Date,Year, Place,Situation Language Function Ability No Deficits Noted Safety Awareness Decreased Safety Awareness Memory Description No Deficits Noted Comments Pt slightly impulsive when it comes to line management Strength Lower Extremity Strength Assessment Within Functional Limits M7 PT-IP Assessment and Plan Start: 05/29/22 09:55 Freq: NEEDED Status: Active Protocol: Document 05/30/22 13:22 TS (Rec: 05/30/22 14:25 TS [id number]) PT Summary Assessment and Plan Potential Rehabilitation Potential Good Status of Condition at Evaluation Evolving Summary Impairments Strength,Balance,Bed Mobility, Transfers,Gait,Activity Tolerance Assessment Summary Pt is requiring Stella for bed moiblity and sit to stand with FWW. She could maintain good standing balance with use of BUE support on FWW and didn't have any signs of buckling. Pt ambulated SBA 15' around bed and performed sit to supine with BUE support on handrails and Stella for LE's back into bed. She did require MinAx2 for scooting to HOB. O2 levels decreased to low 80's with bed mobility and stabilized once increased to 3L of O2 ( seee above for levels). PT is recommending home with assist when needed by pt. [facility] stated they could provide assist levels if pt needs. (has call light in room). Goals Bed Mobility Goal Independent Transfer Goal Independent Gait Goal Minimal Assistance,Front Wheel Walker Gait Distance 20' Frequency of Treatment Frequency Of Treatment Once a Day Treatment Plan Physical Therapy Treatment Plan Bed Mobility Training,Transfer Training,Gait Training, Therapeutic Exercise,Discharge Planning,Neuromuscular Re-ed Other Recommendations and Next Treatment Activity tolerance, bed Focus mobility, increased gait distance Recommendations To Nursing Amount of Assist Needed 2 Person Assist Discharge Recommendations PT Discharge Recommendations Home with Assistance Other Discharge Recommendations Return to [facility]. Spoke with a staff member at [facility] and she reported they can provide her with assistance if she needs, pt has call button in room. Transportation Needs at Discharge Private Vehicle,Wheelchair/ Cabulance
--- NOTE | 2022-05-30 13:43 | CM.DPC ---
DCP Cont: Per MD, pt was successfully extubated and uses CPAP at night and NCO2 during the day. Per PT, pt should progress enough for return to [facility] as today she just needed assist for bed mobility but once standing pt was SBA for ambulation with a walker. ADY spoke briefly to [facility] RN Julissa as she was here to assess another resident, and Julissa did not do bedside assess yet with pt as not yet stable for discharge but mentioned that family had made allegations about poor care of pt's diabetes and was angry and unsure if pt should return to their facility and discussed though that they cannot refuse pt back but would have to talk to family about the full eviction process. ADY faxed updated clinicals to [facility] to review towards plan of return. ADY also called [facility] admissions as referral had been made as backup plan and left msg requesting review to feel if pt is Skillable with her [employer] insurance and if they feel they could meet her needs requested they initiate insurance SNF auth in case [facility] refuses to accept at d/c. Plan: SW to follow closely for [facility] review of updated clinicals and [facility] review to determine if they could accept pt and start auth so not a barrier for discharge. [place]
[2022-05-30] MEDS: MAGNESIUM HYDROXIDE 30 ML UDC 15 ML PO (16:20)
--- NOTE | 2022-05-30 16:28 | PC.NURSE ---
Pt transferred from ICU at 1530. A&Ox4, no c/o pain. Lungs w/insp/exp wheeze bilaterally. C/o constipation, bowel tones hypoactive-milk of magnesia administered per MAY. Flagyl infusing to RUE PICC line. Babcock patent, draining clear yellow urine, discussed removing but pt requesting to keep overnight. SCDs to markus ALFORD. Pt oriented to room and call light, bed alarm activated.
--- NOTE | 2022-05-30 17:22 | PC.NURSE ---
1530 Patient transferred to 216 in stable condition with all belongings, including home CPAP machine. She verbalized understanding of transfer and met next nurse, Renee. All questions answered and patient set up with landline phone within reach.
--- NOTE | 2022-05-30 21:10 | PC.NURSE ---
Addendum entered by Bacilio Rob R.N. 05/30/22 22:59: 2125: EKG shown to Hospitalist Sary Story, 'sinus rhythm w/ fusion complexes'. no other interventions at this time. Original Note: 2109: Pt c/o CP 3/10 pressure pointing to sternum. Vitals: 90% 1.5L NC, 132/77 HR 71 RR 25. Hospitalist Sary Story aware, new orders for EKG tele and to administer tylenol. RT called for EKG.
[2022-05-30] MEDS: ACETAMINOPHEN 325 MG TABLET 650 MG PO (21:13)
[2022-05-30] MEDS: SENNOSIDES 8.6 MG TABLET 17.2 MG PO (21:39)
[2022-05-30] MEDS: GABAPENTIN 300 MG CAPSULE PO (21:39)
[2022-05-30] MEDS: buPROPion XL 150 MG TAB PO (21:40)
[2022-05-30] MEDS: TRAZODONE 50 MG TABLET PO (21:40)
[2022-05-31] VITALS (10 sets, daily range): BP systolic 106–120; BP diastolic 57–77; PULSE 53–92; RESP 17–24; TEMP 36.2–36.6; O2SAT 92–98
[2022-05-31] MEDS: LEVOTHYROXINE 100 MCG TABLET 200 MCG PO (06:11)
[2022-05-31] MEDS: HEPARIN 5,000 UNIT/ML VIAL 7500 UNIT SUBCUT ×3 (06:11→21:45)
[2022-05-31] MEDS: BUDESONIDE 0.5 MG/2 ML NEB INH ×2 (07:56→21:00)
--- NOTE | 2022-05-31 08:28 | P.PN_ITS ---
Exam Vital Signs (past 8 hours): - 05/31/22 02:20 05/31/22 05:09 05/31/22 07:57 Temperature 97.9 F 97.6 F Pulse Rate 65 53 L Respiratory Rate 18 18 Blood Pressure 120/72 106/64 Pulse Oximetry 93 94 98 Oxygen Delivery Method Nasal Cannula Oxygen Flow Rate 0 0 2 05/31/22 07:56 Temperature 97.1 F L Pulse Rate 64 Respiratory Rate 17 Blood Pressure 116/66 Pulse Oximetry 98 Oxygen Delivery Method Oxygen Flow Rate 0 Fraction of Inspired Oxygen 32 SaO2/FiO2 Ratio 300 Oxygen Delivery Method Nasal Cannula Oxygen Flow Rate 2 Narrative Exam Narrative: GEN: Alert and oriented x 3, NAD HEENT:NC, Face symmetric CHEST: Respiratory excursions symmetric, improved breath sounds overall with improved end expiratory wheezes bilaterally CV: RRR, no M/R/G ABD: Soft, obese, NT/ND, BT present in all 4 quadrants, nonreducible ventral hernia, irritation and erythema in the pannus skin folds EXTR: warm, well perfused, no C/C/E SKIN: warm and dry, no rash NEURO: Alert and oriented x 3, nonfocal Objective Labs 05/30/22 04:15 05/30/22 04:15 [facility] Medical History (Updated 05/25/22 @ 19:18 by Jayne Muhammad DO) Chronic hypoxemic respiratory failure COPD (chronic obstructive pulmonary disease) DM2 (diabetes mellitus, type 2) HTN (hypertension) Obesity PONCE (obstructive sleep apnea) Systolic and diastolic CHF, chronic Thyroiditis Surgical History (Updated 05/25/22 @ 18:30 by Esteban Gillespie DO) S/P hernia surgery Family History (Updated 05/25/22 @ 18:31 by Esteban Gillespie DO) Mother No pertinent past medical history Father No pertinent past medical history Social History household members: other Smoking Status: Former smoker Assessment & Plan Assessment & Plan narrative: 1. Acute on chronic hypoxic respiratory failure, improving She is now on nasal cannula O2 at 3 L. Baseline is 2 L. Remains on steroids for COPD exacerbation.?Will finish prednisone to finish 5 day course. 2. Undifferentiated shock, presumed septic but possibly cardiogenic, resolved Initially on empiric Rocephin and metronidazole.? She is off pressors. Stopped abx as cultures negative and procal 0.2. 3. Acute on chronic combined systolic and diastolic congestive heart failure, with ejection fraction of 20-25%, mildly dilated left ventricle, moderate to severe global hypokinesis of the left ventricle, evidence of diastolic dysfunction as well as mild to moderately reduced right ventricular systolic function Diuretics were held in the setting of hypotension and BLANCA.? Will resume her carvedilol and torsemide to be initiated tomorrow. 4. BLANCA in the setting of likely chronic kidney disease, improving Continued improvement with creatinine down to 1.4. 5. Nontraumatic rhabdomyolysis Now resolved with normal LFTs. 6. Acute myocardial injury Initial troponin was 0.052 in the emergency department.? On follow-up it was 0.038.? Given the downtrend, no further intervention planned. 7. Ventricular arrhythmia Patient had a nonsustained episode of what appears to be torsades de Pointe May 27 and again early this morning. Suspect it is secondary to patient's ventricular irritability. Electrolytes were within normal limits.? Will avoid nebulizer treatments as able. Restart patient's home COPD medications. 8. COPD with exacerbation Initially on Solu-Medrol 40 mg IV q.12 hours.? Given Symbicort and Spiriva. Now on po prednisone to finish 5 days. 8. Diabetes mellitus type 2 Hemoglobin A1c 9.7% on admission.? Patient is on 22 units of Lantus twice a day at baseline. Blood sugars have been quite elevated on 20 units at bedtime here. Changed to b.i.d. dosing. 9. Class 3 obesity BMI is 50.5.? Obesity significantly increases her risk for morbidity mortality. Resolved issues: Undifferentiated shock, presumed septic but possibly cardiogenic Code status Full Prophylaxis On heparin 7500 units 3 times daily Disposition Likely home in 1-2 days with HH. Time Spent With Patient Critical Care time: I spent a total of [] minutes of critical care time on this patient's care today; this time is exclusive of procedural time. Quality VTE Deep Vein Thrombosis/Pulmonary Embolism Present on Admission: No
[2022-05-31] MEDS: ATORVASTATIN 20 MG TABLET 80 MG PO (08:59)
[2022-05-31] MEDS: ASPIRIN EC 81 MG TABLET PO (08:59)
[2022-05-31] MEDS: FENOFIBRATE, MICRONIZED 67 MG CAPSULE 201 MG PO (08:59)
[2022-05-31] MEDS: MAGNESIUM OXIDE 400 MG TABLET 200 MG PO ×2 (08:59→21:44)
[2022-05-31] MEDS: predniSONE 20 MG TABLET 40 MG PO (09:00)
[2022-05-31] MEDS: FLUoxetine 20 MG CAPSULE PO (09:00)
[2022-05-31] MEDS: LORATADINE 10 MG TABLET PO (09:00)
[2022-05-31] MEDS: TORSEMIDE 10 MG TABLET 30 MG PO (09:00)
[2022-05-31] MEDS: MONTELUKAST 10 MG TABLET PO (09:00)
[2022-05-31] MEDS: FAMOTIDINE 20 MG/2 ML VIAL IV (09:00)
[2022-05-31] MEDS: carvediloL 3.125 MG TABLET PO ×2 (09:00→21:42)
[2022-05-31] MEDS: FERROUS SULFATE 325 MG TABLET PO (09:00)
[2022-05-31] MEDS: INSULIN LISPRO 100 UNIT/ML 3ML VIAL SUBCUT ×6 (09:01→17:19)
[2022-05-31] MEDS: FLUTICASONE 120 SPRAY/16 GM SPRAY.SUSP NASAL (09:01)
[2022-05-31] MEDS: INSULIN GLARGINE 100 UNIT/ML 3ML PEN 20 UNIT SUBCUT ×2 (09:03→21:46)
[2022-05-31] MEDS: SODIUM CHLORIDE 0.9% FLUSH 10 ML IV ×2 (09:04→21:48)
[2022-05-31] MEDS: LACTULOSE 20 GM/30 ML SOLUTION PO (09:59)
--- NOTE | 2022-05-31 11:55 | ST.IPDYTX ---
Visit Care Team Role Provider Type Simone Rodgers MD Primary Care Provider Non-Staff Specialty: Family Practice Address: [address], [address] Email: Jayne Muhammad DO Emergency Provider Physician Referring Provider Specialty: Emergency Medicine Address: [address] [place] [address], [id number] Email: [email or web address] Esteban Gillespie DO Admit Provider Physician Attending Provider Specialty: Internal Medicine Address: [address] [place] [address], [id number] Email: [email or web address] [email or web address] DEVELOPER Dysphagia Treatment C UNIX DEVELOPER Dysphagia Treatment Start: 05/31/22 11:39 Freq: Status: Active Protocol: Document 05/31/22 11:39 LNK (Rec: 05/31/22 11:55 LNK [id number]) Dysphagia Treatment Session Time Visit Start Time 10:45 Visit Stop Time 11:20 Total Visit Minutes 35 Setting Assessment Location Acute Care Visit Type Note Type Treatment Note Patient Information Identification Type Name,ID Wristband Subjective Observations Pt was seated in her bedside chair in a semi-reclined position. Introduced self and purpose for visit. Pt was agreeable to the visit. Treatment Treatment Activities No PO trials were provided. pt education re: safe swallowing with altered diet and lack of upper denture/ loose upper denture. Pt reported that she has her denture at [facility] and could use a fixative (i.e., Polygrip , etc.) to keep upper denture in place during meals. She stated that she has all posterior molars intact. Pt education was provided using a computer graphics application video of a normal swallow and a swallow with pooling in the valeculla (see ST eval report ). Anatomical features were described and the differences between a normal swallow and one with vallecular pooling were described in detail. Pt indicated that she understood. HEP was provided with pt's recommended diet was also provided with explanation of softness/moistness. Diet information and recommendations for diet, dependent on dentition/ mastication, were placed in the pt's folder to take with her. Pt agreed. The above information was provided to Tele Grout Sewer Line Repairer as pt is likely to be discharged today. Assessment Patient Response to Treatment Excellent Rehab Potential Good Assessment of Improvement Pt indicated hat she was aware of her aspiration risk. She reported that she eats alone in her room daily. She also stated that staff will check on her periodically during the day. Diet Recommendations Recommendations Continue Current Diet Liquids Order Thin Diet Order Dysphagia Mechanical Medication Recommendations Crushed,Crushed in Carrier Additional Dietary Needs Reminders to Use Strategies Aspiration Precautions Recommended Precautions Upright at 90 Degrees, Alternate Liquids/Solids,Small Bites/Sips Treatment Plan Placement Recommendation after Discharge Precision Lens Technician Care Facility Appropriate for Continued Therapy Yes Dysphagia Goals pt will safely tolerate the least restrictive diet to meet hydration and nutritional needs. Follow Up Plan Will follow pt while inpt status Referrals/Other Recommended Referrals Primary Care Physician
--- NOTE | 2022-05-31 12:21 | CM.DPC ---
DCP Cont: Was informed that nurse, Julissa, from [facility], was supposed to come over and evaluate patient in order for her to return to their facility. Had not seen her, called her. Julissa indicated, they can't accept her, since she is now a two person assist, where she was independent. P.T. has indicated, she is minimal assist. She indicated they would prefer that she goes to a skilled facility so she can get daily therapy. Let her know that if she can't get accepted due to her insurance, they will need to accept her back. Updated hospitalist, for he had placed discharge orders. Spoke to speech therapist, who indicated that she needs to be on dysphagia diet, but does not have her dentures available. Asked Julissa if she can look at her facility to see if she has dentures there. Speech therapy has also indicated that she 'should be monitored during meals, for she is a choke risk. Spoke to Ursula at [facility]. She will attempt a one time agreement with [facility]. She will submit current P.T. notes. Checked in with Lucia at [facility], they are contracted with [facility], but is hard to get a carve out for therapy'. She indicated that [facility] does not require a denial from other facilities in order to auth. P: DCP to continue to follow. At this time, will attempt [facility], but if they can't get auth, then [facility] will need to accept back. Lili Pierre RN/Short Filler Bunch Machine Operator
--- NOTE | 2022-05-31 12:43 | P.PN_ITS ---
Subjective Subjective Interval history: Patient feels well and has no complaints. [facility] unwilling to take her back due to 2 person assist so [employer] working on SNF. Exam Vital Signs (past 8 hours): - 05/31/22 05:09 05/31/22 07:57 05/31/22 07:56 Temperature 97.6 F 97.1 F L Pulse Rate 53 L 64 Respiratory Rate 18 17 Blood Pressure 106/64 116/66 Pulse Oximetry 94 98 98 Oxygen Delivery Method Nasal Cannula Oxygen Flow Rate 0 2 0 05/31/22 09:00 05/31/22 08:00 05/31/22 11:00 Temperature 97.1 F L Pulse Rate 64 78 Respiratory Rate 17 Blood Pressure 116/66 111/77 Pulse Oximetry 93 Oxygen Delivery Method Nasal Cannula Oxygen Flow Rate 0 Fraction of Inspired Oxygen 32 SaO2/FiO2 Ratio 300 Oxygen Delivery Method Nasal Cannula Oxygen Flow Rate 0 Narrative Exam Narrative: GEN: Alert and oriented x 3, NAD HEENT:NC, Face symmetric CHEST: Respiratory excursions symmetric, improved breath sounds overall with improved end expiratory wheezes bilaterally CV: RRR, no M/R/G ABD: Soft, obese, NT/ND, BT present in all 4 quadrants, nonreducible ventral hernia, irritation and erythema in the pannus skin folds EXTR: warm, well perfused, no C/C/E SKIN: warm and dry, no rash NEURO: Alert and oriented x 3, nonfocal Objective Labs 05/30/22 04:15 05/30/22 04:15 [facility] Medical History (Updated 05/25/22 @ 19:18 by Jayne Muhammad DO) Chronic hypoxemic respiratory failure COPD (chronic obstructive pulmonary disease) DM2 (diabetes mellitus, type 2) HTN (hypertension) Obesity PONCE (obstructive sleep apnea) Systolic and diastolic CHF, chronic Thyroiditis Surgical History (Updated 05/25/22 @ 18:30 by Esteban Gillespie DO) S/P hernia surgery Family History (Updated 05/25/22 @ 18:31 by Esteban Gillespie DO) Mother No pertinent past medical history Father No pertinent past medical history Social History household members: other Smoking Status: Former smoker Assessment & Plan Assessment & Plan narrative: 1. Acute on chronic hypoxic respiratory failure, improving She is now on nasal cannula O2 at 3 L. Baseline is 2 L. Remains on steroids for COPD exacerbation.?Will finish prednisone to finish 5 day course. 2. Undifferentiated shock, presumed septic but possibly cardiogenic, resolved Initially on empiric Rocephin and metronidazole.? She is off pressors. Stopped abx as cultures negative and procal 0.2. 3. Acute on chronic combined systolic and diastolic congestive heart failure, with ejection fraction of 20-25%, mildly dilated left ventricle, moderate to severe global hypokinesis of the left ventricle, evidence of diastolic dysfunction as well as mild to moderately reduced right ventricular systolic function Diuretics were held in the setting of hypotension and BLANCA.? Will resume her carvedilol and torsemide to be initiated tomorrow. 4. BLANCA in the setting of likely chronic kidney disease, improving Continued improvement with creatinine down to 1.4. 5. Nontraumatic rhabdomyolysis Now resolved with normal LFTs. 6. Acute myocardial injury Initial troponin was 0.052 in the emergency department.? On follow-up it was 0.038.? Given the downtrend, no further intervention planned. 7. Ventricular arrhythmia Patient had a nonsustained episode of what appears to be torsades de Pointe May 27 and again early this morning. Suspect it is secondary to patient's ventricular irritability. Electrolytes were within normal limits.? Will avoid nebulizer treatments as able. Restart patient's home COPD medications. 8. COPD with exacerbation Initially on Solu-Medrol 40 mg IV q.12 hours.? Given Symbicort and Spiriva. Now on po prednisone to finish 5 days. 8. Diabetes mellitus type 2 Hemoglobin A1c 9.7% on admission.? Patient is on 22 units of Lantus twice a day at baseline. Blood sugars have been quite elevated on 20 units at bedtime here. Changed to b.i.d. dosing. 9. Class 3 obesity BMI is 50.5.? Obesity significantly increases her risk for morbidity mortality. Resolved issues: Undifferentiated shock, presumed septic but possibly cardiogenic Code status Full Prophylaxis On heparin 7500 units 3 times daily Disposition SNF on 06/01. Time Spent With Patient Critical Care time: I spent a total of [] minutes of critical care time on this patient's care today; this time is exclusive of procedural time. Quality VTE Deep Vein Thrombosis/Pulmonary Embolism Present on Admission: No
--- NOTE | 2022-05-31 12:50 | PT.IPTN ---
Current Diagnoses Acute respiratory failure with hypercapnia (05/25/22) Acute and chronic respiratory failure with hypoxia (05/25/22) Physical Therapy Treatment Note M2 PT-IP Current Condition Start: 05/29/22 09:55 Freq: NEEDED Status: Active Protocol: Document 05/29/22 09:02 DCW (Rec: 05/29/22 10:10 DCW [id number]) Physical Therapy Current Condition Current Condition Evaluation Date 05/29/22 Treatment Diagnosis Weakness, fatigue, hypoxia Onset Date 05/25/22 M3 PT-IP Subjective Start: 05/29/22 09:55 Freq: NEEDED Status: Active Protocol: Document 05/31/22 13:22 TS (Rec: 05/31/22 13:51 TS [id number]) Subjective Physical Therapy Visit Type Type Treatment Note Visit Start Time 12:50 Visit Stop Time 13:15 Total Visit Minutes 25 Notes Spo2: 1L 91% at rest, 2L 90% during ambulation, 3L 93% with bed mobility, 1L supine in bed 92%. Bp: 141/73 Number of RETAIL SOLAR ADVISOR Visits 2 Physical Therapy Visit Comments Patient Comments Pt is agreeable to PT session. Therapy Pain Assessment Pain When Pain Assessed During Mobility Pain Present Pain Present Pain Reported Location Chest Pain Management Techniques Modification of Treatment M4 PT-IP Mobility and Gait Start: 05/29/22 09:55 Freq: NEEDED Status: Active Protocol: Document 05/31/22 13:22 TS (Rec: 05/31/22 13:51 TS [id number]) PT-Bed Mobility Assessment Sit to Supine Sit to Supine Standby Assistance Scooting Scooting Up and Down in Bed Standby Assistance PT-Transfer Assessment Sit to and From Stand Sit to and from Stand Contact Guard Assistance,1 Person Assistance Equipment Transfer Assistive Device Bed Rail,Gait Belt,Front Wheeled Walker Comments Mobility Comments Pt found resting in bedside chair just after lunch, agreeable to PT session. Pt performed sit to stand w/FWW x2, 1st attempt could not get lift, 2nd attempt required cues for pushing BUE off of arms of chair CGA. Once in standing pt leans heavily on FWW for standing balance, required cues for upright posture. She ambulated 2x15' around room SBA with a shuffle gait and cues to keep self in FWW. She required increase in O2 to 2L (90%), c/o fatigue and pain in her arms and legs. She performed stand to sit to EOB SBA with use of BUE on handrail and bed, required cues for legs against bed and FWW close to her before sitting down. She performed sit to supine with bed flat SBA and assist in managning O2 line. She scooted to HOB in trendelenburg position, very labored, requring O2 increase to 3L. Pt c/o of SOB and required HOB raised to 40D. Pt left in bed with call light nearby, back on 1L of O2, Rn notified of O2 level changes. Gait Assessment Gait Gait Assistance Required: Standby Assistance Distance (Feet) 30 Comments Gait Comments See mobility comments. PT-Balance Assessment Sitting Balance and Reactions Static Sitting Balance Ability Good Dynamic Sitting Balance Ability Fair Standing Balance and Reactions Static Standing Balance Ability Good Dynamic Standing Balance Ability Poor Comments Other Balance Tests/Deviations/Treatment Pt could maintain midline with : BUE support on bed. She leans heavily on FWW for her standing balance. M5 PT-IP Objective Assessments Start: 05/29/22 09:55 Freq: NEEDED Status: Active Protocol: Document 05/29/22 09:02 DCW (Rec: 05/29/22 10:10 DCW [id number]) Orientation Orientation/Cognition Level of Alertness Alert Orientation Name,Birthday,Month,Date,Year, Place,Situation Language Function Ability No Deficits Noted Safety Awareness Decreased Safety Awareness Memory Description No Deficits Noted Comments Pt slightly impulsive when it comes to line management Strength Lower Extremity Strength Assessment Within Functional Limits M7 PT-IP Assessment and Plan Start: 05/29/22 09:55 Freq: NEEDED Status: Active Protocol: Document 05/31/22 13:22 TS (Rec: 05/31/22 13:51 TS [id number]) PT Summary Assessment and Plan Potential Rehabilitation Potential Good Status of Condition at Evaluation Evolving Summary Impairments Strength,Balance,Bed Mobility, Transfers,Gait,Activity Tolerance Assessment Summary Pt is SBA for sit to stands but requires cues for proper BUE support on arms of chair. She progressed her ambulation distance to 30' SBA but fatigues quickly walking with FWW around room and c/o pain in her legs and arms. She progressed her bed mobility to SBA this session but she is very labored when doing so and requires increase in O2 for SOB. PT is recommending SNF at this time to improve her activity tolerance, pt not being at prior level of function at [facility] and [facility] not being able to provide the assistance level she currently needs. Goals Bed Mobility Goal Independent Transfer Goal Independent Gait Goal Minimal Assistance,Front Wheel Walker Gait Distance 20' Frequency of Treatment Frequency Of Treatment Once a Day Treatment Plan Physical Therapy Treatment Plan Bed Mobility Training,Transfer Training,Gait Training, Therapeutic Exercise,Discharge Planning,Neuromuscular Re-ed Other Recommendations and Next Treatment Activity tolerance, bed Focus mobility and gait. Recommendations To Nursing Amount of Assist Needed 1 Person Assist,2 Person Assist Discharge Recommendations PT Discharge Recommendations SNF Rehab Other Discharge Recommendations [facility] is now reporting they can not provide her the level of assist that she currently needs and is not back at [facility]. Transportation Needs at Discharge Private Vehicle,Wheelchair/ Cabulance
[2022-05-31] MEDS: buPROPion XL 150 MG TAB PO (21:41)
[2022-05-31] MEDS: TRAZODONE 50 MG TABLET PO (21:41)
[2022-05-31] MEDS: SENNOSIDES 8.6 MG TABLET PO (21:42)
[2022-05-31] MEDS: GABAPENTIN 300 MG CAPSULE PO (21:42)
[2022-05-31] MEDS: NYSTATIN POWDER 15GM 1 APPLIC TOP (21:48)
--- NOTE | 2022-05-31 23:00 | PC.NURSE ---
pt has radha in, this Rn educated and encouraged pt to use bedside commode tonight to build strength. pt stated that she doesn't want to get up and 'im going home tomorrow no matter what'. Pt used bedside commode for bm and urination, will continue to encourage bedside commode.
[2022-06-01 03:15] VITALS: BP 107/69; PULSE 55; RESP 17; TEMP 35.8; O2SAT 97
[2022-06-01] MEDS: LEVOTHYROXINE 100 MCG TABLET 200 MCG PO (05:15)
[2022-06-01] MEDS: HEPARIN 5,000 UNIT/ML VIAL 7500 UNIT SUBCUT ×2 (05:16→14:50)
--- NOTE | 2022-06-01 08:45 | PT.IPTN ---
Current Diagnoses Acute respiratory failure with hypercapnia (05/25/22) Acute and chronic respiratory failure with hypoxia (05/25/22) Physical Therapy Treatment Note M2 PT-IP Current Condition Start: 05/29/22 09:55 Freq: NEEDED Status: Active Protocol: Document 05/29/22 09:02 DCW (Rec: 05/29/22 10:10 DCW [id number]) Physical Therapy Current Condition Current Condition Evaluation Date 05/29/22 Treatment Diagnosis Weakness, fatigue, hypoxia Onset Date 05/25/22 M3 PT-IP Subjective Start: 05/29/22 09:55 Freq: NEEDED Status: Active Protocol: Document 06/01/22 09:19 TS (Rec: 06/01/22 10:05 TS [id number]) Subjective Physical Therapy Visit Type Type Treatment Note Visit Start Time 08:45 Visit Stop Time 09:16 Total Visit Minutes 31 Notes Vitals BP: 101/53 sitting bed side chair Spo2:2L 95% Number of FAST FOOD SUPERVISOR Visits 3 Physical Therapy Visit Comments Patient Comments Pt reports she is feeling good today and agreeable to PT session. Therapy Pain Assessment Pain Present Pain Present Denied Pain M4 PT-IP Mobility and Gait Start: 05/29/22 09:55 Freq: NEEDED Status: Active Protocol: Document 06/01/22 09:19 TS (Rec: 06/01/22 10:05 TS [id number]) PT-Bed Mobility Assessment Supine to Sit Supine to Sit Standby Assistance Scooting Scooting to Edge of Bed Standby Assistance Scooting Up and Down in Bed Standby Assistance PT-Transfer Assessment Sit to and From Stand Sit to and from Stand Standby Assistance Equipment Transfer Assistive Device Gait Belt,Front Wheeled Walker Transfers Transfer Destination Chair,Toilet Transfer Ability Level of Assist Standby Assistance Comments Mobility Comments Pt found up in bed with breakfast, O2 3L, agreeable to PT session. Pt performed supine to sit SBA [id number] with use of BUE support on bed. Pt scooted to EOB SBA with no loss of balance or retroleaning. She sat EOB maintaing midline with BUE support on bed. She performed sit to stand w/FWW SBA with cues for pushing off bed with BUE support and coming into standing. She ambulated with FWW x4' demonstrating a shuffling gait and requires cues to keep FWW close to her, denies feeling tired or SOB. She demonstrated good carryover of performing stnad to sit with touching back of legs to chair and reahcing back for arm rests for BUE support. Once seated she reported needing to use toilet . She demonstrated good carryover of sequencing of sit to stand x1 with BUE support on arms of chair SBA. She ambulated to toilet SBA x5', requiring help managing O2 lines 50% of the time. She transferred to toilet SBA with LUE support on handrail, doffing brief independently. She performed another sit ot stand from toilet x1 SBA, ambulated back to chair SBA x5 ' and demonstrated good eccentric control into chair. She was left in bedside chair with call light nearby, RN in room. Gait Assessment Gait Gait Assistance Required: Standby Assistance Distance (Feet) 14 Comments Gait Comments See mobility comments PT-Balance Assessment Sitting Balance and Reactions Static Sitting Balance Ability Good Dynamic Sitting Balance Ability Good Standing Balance and Reactions Static Standing Balance Ability Good Dynamic Standing Balance Ability Fair Comments Other Balance Tests/Deviations/Treatment Pt maintained midline in : sitting with no lateral or posterior leaning. She reached out of LEO in standing to remove pure wick. M5 PT-IP Objective Assessments Start: 05/29/22 09:55 Freq: NEEDED Status: Active Protocol: Document 05/29/22 09:02 DCW (Rec: 05/29/22 10:10 DCW [id number]) Orientation Orientation/Cognition Level of Alertness Alert Orientation Name,Birthday,Month,Date,Year, Place,Situation Language Function Ability No Deficits Noted Safety Awareness Decreased Safety Awareness Memory Description No Deficits Noted Comments Pt slightly impulsive when it comes to line management Strength Lower Extremity Strength Assessment Within Functional Limits M7 PT-IP Assessment and Plan Start: 05/29/22 09:55 Freq: NEEDED Status: Active Protocol: Document 06/01/22 09:19 TS (Rec: 06/01/22 10:05 TS [id number]) PT Summary Assessment and Plan Potential Rehabilitation Potential Good Status of Condition at Evaluation Evolving Summary Impairments Strength,Balance,Bed Mobility, Transfers,Gait,Activity Tolerance Assessment Summary Pt much less labored with bed mobility today from previous session, perhaps due to increase to 3L during mobility this session. She doffed her brief sitting EOB and removed purewick in standing after performing sit to stand x1 SBA . She denied having any pain, discomfort or fatigue in her arms and legs today during ambulation. Pt met gait goal yesterday of 20' SBA, she does report sometimes she will walk to shower which is ~50' but has only done this twice since she's been there and will bathe in the sink of the bathroom ~15' from bed. She required Stella in managing her O2 lines perhaps due to setup of hospital room. She reports she is able to manage 02 at home on her own. PT is currently recommending return home with assistance when she needs. Goals Bed Mobility Goal Independent Transfer Goal Independent Gait Goal Minimal Assistance,Front Wheel Walker Gait Distance 20' Frequency of Treatment Frequency Of Treatment Once a Day Treatment Plan Physical Therapy Treatment Plan Bed Mobility Training,Transfer Training,Gait Training, Therapeutic Exercise,Discharge Planning,Neuromuscular Re-ed Other Recommendations and Next Treatment Activity tolerance, bed Focus mobility and gait. Recommendations To Nursing Amount of Assist Needed 1 Person Assist Discharge Recommendations PT Discharge Recommendations Home with Assistance Other Discharge Recommendations Pt safe to return home and can make needs known for any assistance. Transportation Needs at Discharge Private Vehicle,Wheelchair/ Cabulance
--- NOTE | 2022-06-01 08:45 | CM.DPC ---
Addendum entered by Lili Pierre R.N. 06/01/22 11:30: Isac at [facility] called back and has accepted patient. Heide is sending information, he also has access to [email or web address]. [facility] will pick patient up at 1500, have faxed over signed meds and DC Summary. Updated white board, and updated nurse, David. Addendum entered by Lili Pierre R.N. 06/01/22 10:59: Kasey from [facility] came by to see patient, stated, she looks much better today. She will call this [facility] [employer] with a time of berry picker. Updated Dr. Alexis for orders. Addendum entered by Lili Pierre R.N. 06/01/22 10:41: Confirmed that [facility] is not in today, Dejah at [facility] indicated that they had not heard back from [facility]. P.T. indicated that patient has improved with her mobility today. [facility] most likely will not auth her. Called [facility] and spoke to Julissa, let her know that she most likely will not qualify for halfway, and will need to return to their facility. She indicated that her president + publisher is coming over to evaluate patient. Asked her to have her check in with this [facility] [employer], for she is medically stable for discharge. Called home health agencies, spoke to Isac at [facility], he is checking with his team regarding her insurance. Celina at [facility] indicated that they are at capacity for [facility] patients. China at [facility] indicated that they do take [facility], they only allow for so many visits. She indicated that they can take patient as soon as Monday. At this time, plan is back to [facility]. If facility attempts to refuse, will speak to Marylu, the cm director, to intervene. Original Note: DCP Cont: Left August at [facility] two messages, first, asked her to call this [facility] [employer] back regarding [facility] auth. Called her again and asked if she could have an answer soon, for this DC [employer] [employer] will need to call [facility] back to take patient today, if no auth. P: Patient will either go to [facility] if auth is received, or back to [facility] today. Did complete PASSR just in case she does get the auth. Lili Pierre, MAI/Exhibition [employer]ver
[2022-06-01 09:00] VITALS: BP 92/48; PULSE 62; RESP 17; TEMP 36.3; O2SAT 98
[2022-06-01 09:16] VITALS: BP 105/53
[2022-06-01] MEDS: polyethylene glycoL 3350 17 GM POWD.PACK PO (09:18)
[2022-06-01] MEDS: ASPIRIN EC 81 MG TABLET PO (09:18)
[2022-06-01] MEDS: FERROUS SULFATE 325 MG TABLET PO (09:18)
[2022-06-01] MEDS: MONTELUKAST 10 MG TABLET PO (09:18)
[2022-06-01] MEDS: FLUoxetine 20 MG CAPSULE PO (09:18)
[2022-06-01] MEDS: predniSONE 20 MG TABLET 40 MG PO (09:18)
[2022-06-01] MEDS: FENOFIBRATE, MICRONIZED 67 MG CAPSULE 201 MG PO (09:18)
[2022-06-01] MEDS: LORATADINE 10 MG TABLET PO (09:19)
[2022-06-01] MEDS: ATORVASTATIN 20 MG TABLET 80 MG PO (09:19)
[2022-06-01] MEDS: MAGNESIUM OXIDE 400 MG TABLET 200 MG PO (09:19)
[2022-06-01] MEDS: SENNOSIDES 8.6 MG TABLET PO (09:19)
[2022-06-01] MEDS: FAMOTIDINE 20 MG/2 ML VIAL IV (09:20)
[2022-06-01] MEDS: FLUTICASONE 120 SPRAY/16 GM SPRAY.SUSP NASAL (09:21)
[2022-06-01] MEDS: INSULIN LISPRO 100 UNIT/ML 3ML VIAL SUBCUT ×3 (09:22→12:50)
[2022-06-01] MEDS: BUDESONIDE 0.5 MG/2 ML NEB INH (09:29)
[2022-06-01 09:30] VITALS: PULSE 77; RESP 16; O2SAT 94
[2022-06-01 09:31] VITALS: BP 105/53; PULSE 65
[2022-06-01] MEDS: INSULIN GLARGINE 100 UNIT/ML 3ML PEN 20 UNIT SUBCUT (09:31)
[2022-06-01] MEDS: carvediloL 3.125 MG TABLET PO (09:31)
--- NOTE | 2022-06-01 10:51 | PM.DS.1 ---
History of Present Illness History of Present Illness Date Patient Seen: 05/31/22 Time Patient Seen: 17:30 Chief complaint: Weakness,hypotensive,dizzy Narrative: This is a 61 year old female with PMH of HTN, obesity, DM2, COPD on 2L home O2, HLD, PONCE, CHF (combined systolic and diastolic), thyroiditis who was sent from [facility] for hypotension and uncontrolled tremors since midnight according to docutmentation. She was initially lethargic and confused in the emergency room, she was markedly hypercarbic and placed on BiPAP. She did not improve initially but her rate was increased and her PEEP was increased was well with subsequent improvement in mentation. She was unable to provide much more history during evaluation in the ER on BiPAP, but denied current chest pain, palpitations, abdominal pain. She did feel weak and short of breath. She would like to be full code based on brief discussions as patient became slightly more alert which was consistent with what ER provider obtained from her daughter and PCP at assisted living facility. She denies any pain in her extremities, no recent fever or chills. Home medications per outside facility: 30 mg torsemide in the AM Carvedilol 3.125 mg BID Trazodone 50 mg at bedtime fenofibrate 160 mg AM Levothyroxine 200 mcg AM Glargine insulin 22U BID Gabapentin 300 mg Bedtime Meclizine 25 mg prn dizziness Humalog 4 U TID AC buproprion ER, 150 mg bedtime Lidocaine patch 5% Senna 17.2 mg BID spiriva 18 mcg AM iron tab daily loratadine 10 mg AM Montelukast 10 mg Fluoxetine 20 mg AM Asa 81 mg daily Rosuvastatin 40 mg PM budesonide formoterol 160-4.5 2 puff prn for COPD albuterol HFA 4 puff q4 prn Initial imaging in the emergency department showed bilateral atelectasis with a possible left lower lobe consolidation, CT angiogram was negative for PE and showed bibasilar atelectasis. CT of her head without contrast showed no acute hemorrhage but did show ventriculomegaly. Discharge Providers Provider Date of admission: 05/25/22 17:24 Discharge Date: 05/31/22 Primary care physician: Simone Rodgers MD Consults: 05/28/22 20:28 Consult to Physical Therapy Evaluate & Treat Comment: Physician Instructions: Evaluate and Treat 05/29/22 18:52 Consult to Speech Therapy Evaluate & Treat Comment: aspirated dinner, c/o swallowing trouble x months Physician Instructions: Evaluate and treat Discharge provider: Ayden Alexis DO Summary Hospital Course Discharge Diagnosis: 1. Acute on chronic hypoxic respiratory failure, improving She is now on nasal cannula O2 at 3 L. Baseline is 2 L. Remains on steroids for COPD exacerbation.?Will complete prednisone to finish 5 day course. 2. Undifferentiated shock, presumed septic but possibly cardiogenic, resolved Initially on empiric Rocephin and metronidazole.? She is off pressors. Stopped abx as cultures negative and procal 0.2. 3. Acute on chronic combined systolic and diastolic congestive heart failure, with ejection fraction of 20-25%, mildly dilated left ventricle, moderate to severe global hypokinesis of the left ventricle, evidence of diastolic dysfunction as well as mild to moderately reduced right ventricular systolic function Diuretics were held in the setting of hypotension and BLANCA.? Will resume her carvedilol and lowered her torsemide to 10mg daily from 30mg which she came in on. 4. BLANCA in the setting of likely chronic kidney disease, improving Continued improvement with creatinine down to 1.4. 5. Nontraumatic rhabdomyolysis Now resolved with normal LFTs. 6. Acute myocardial injury Initial troponin was 0.052 in the emergency department.? On follow-up it was 0.038.? Given the downtrend, no further intervention planned. 7. Ventricular arrhythmia Patient had a nonsustained episode of what appears to be torsades de Pointe May 27 and again early this morning. Suspect it is secondary to patient's ventricular irritability. Electrolytes were within normal limits.? Will avoid nebulizer treatments as able. Restart patient's home COPD medications. 8. COPD with exacerbation Initially on Solu-Medrol 40 mg IV q.12 hours.? Given Symbicort and Spiriva. Now on po prednisone to finish 5 days. 8. Diabetes mellitus type 2 Hemoglobin A1c 9.7% on admission.? Patient is on 22 units of Lantus twice a day at baseline. Blood sugars have been quite elevated on 20 units at bedtime here. Changed to b.i.d. dosing. 9. Class 3 obesity BMI is 50.5.? Obesity significantly increases her risk for morbidity mortality. Hospital Course: See problem list above. Time Spent with Patient Time spent: Greater than 30 minutes Exam Vital Signs (past 8 hours): - 05/31/22 05:09 05/31/22 07:57 05/31/22 07:56 Temperature 97.6 F 97.1 F L Pulse Rate 53 L 64 Respiratory Rate 18 17 Blood Pressure 106/64 116/66 Pulse Oximetry 94 98 98 Oxygen Delivery Method Nasal Cannula Oxygen Flow Rate 0 2 0 05/31/22 09:00 05/31/22 08:00 Temperature Pulse Rate 64 Respiratory Rate Blood Pressure 116/66 Pulse Oximetry Oxygen Delivery Method Nasal Cannula Oxygen Flow Rate Fraction of Inspired Oxygen 32 SaO2/FiO2 Ratio 300 Oxygen Delivery Method Nasal Cannula Oxygen Flow Rate 2 Narrative Exam Narrative: GEN: Alert and oriented x 3, NAD HEENT:NC, Face symmetric CHEST: Respiratory excursions symmetric, improved breath sounds overall with improved end expiratory wheezes bilaterally CV: RRR, no M/R/G ABD: Soft, obese, NT/ND, BT present in all 4 quadrants, nonreducible ventral hernia, irritation and erythema in the pannus skin folds EXTR: warm, well perfused, no C/C/E SKIN: warm and dry, no rash NEURO: Alert and oriented x 3, nonfocal Objective Labs 05/30/22 04:15 05/30/22 04:15 [facility] Medical History (Updated 05/25/22 @ 19:18 by Jayne Muhammad DO) Chronic hypoxemic respiratory failure COPD (chronic obstructive pulmonary disease) DM2 (diabetes mellitus, type 2) HTN (hypertension) Obesity PONCE (obstructive sleep apnea) Systolic and diastolic CHF, chronic Thyroiditis Surgical History (Updated 05/25/22 @ 18:30 by Esteban Gillespie DO) S/P hernia surgery Family History (Updated 05/25/22 @ 18:31 by Esteban Gillespie DO) Mother No pertinent past medical history Father No pertinent past medical history Social History household members: other Smoking Status: Former smoker Discharge Plan Discharge Plan Patient Disposition: Assisted Living Other facility: [facility] Discharge orders & Medications Discharge Orders: Discharge (Order); Ordered 06/01/22 Ordered By: Ayden Alexis Prescriptions: New prednisone 20 mg Tablet 40 mg PO DAILY 2 Days Qty: 4 0RF torsemide 10 mg Tablet 10 mg PO DAILY Qty: 30 0RF Continued bupropion HCl 150 mg tablet sustained-release 12 hr 150 mg PO BEDTIME sennosides [senna] 8.6 mg tablet 17.2 mg PO BEDTIME acetaminophen [Tylenol] 325 mg Tablet 650 mg PO TID trazodone 50 mg tablet 50 mg PO BEDTIME aspirin 81 mg Tablet,Delayed Release (Dr/Ec) 81 mg PO DAILY carvedilol 3.125 mg tablet 3.125 mg PO BID magnesium hydroxide [Milk of Magnesia] 400 mg/5 mL Suspension 15 ml PO Q24H PRN (Reason: Constipation) cyanocobalamin (vitamin B-12) 500 mcg Tablet 500 mcg PO DAILY meclizine 25 mg tablet 25 mg PO Q8HR PRN (Reason: Dizziness) ferrous sulfate 325 mg (65 mg iron) Tablet 325 mg PO DAILY fluoxetine 20 mg Tablet 20 mg PO DAILY lidocaine 5 % adhesive patch,medicated 1 patch topical DAILY Rx Instructions: to right bicep gabapentin 300 mg Capsule 300 mg PO BEDTIME montelukast 10 mg Tablet 10 mg PO DAILY levothyroxine 200 mcg tablet 200 mcg PO DAILY nystatin 100,000 unit/gram Powder 1 applic TOPICAL BID PRN (Reason: Rash) insulin lispro [Humalog U-100 Insulin] 100 unit/mL Solution 4 unit SUBCUT TIDWM albuterol sulfate 90 mcg/actuation Hfa Aerosol Inhaler 4 puff INHALATION Q4H PRN (Reason: Wheezing) ondansetron 4 mg Tablet,Disintegrating 4 mg PO Q8H PRN (Reason: Nausea) fluticasone propionate 50 mcg/actuation Scott,Suspension 2 spray INTRANASAL DAILY Rx Instructions: administer into each nostril loratadine 10 mg Tablet 10 mg PO DAILY rosuvastatin 40 mg Tablet 40 mg PO DAILY Spiriva with HandiHaler 18 mcg Capsule, W/Inhalation Device 1 cap INHALATION DAILY Rx Instructions: puncture 1 cap using device; one dose = 2 inhalations fenofibrate 160 mg Tablet 160 mg PO DAILY budesonide-formoterol 160-4.5 mcg/actuation Hfa Aerosol Inhaler 2 puff INHALATION Q4H PRN (Reason: Wheezing) insulin glargine 100 unit/mL (3 mL) Insulin Pen 22 unit SUBCUT BID magnesium oxide 200 mg magnesium Tablet 200 mg PO BID Discontinued torsemide 10 mg Tablet 30 mg PO DAILY Follow up/Referrals: Simone Rodgers MD [Primary Care Provider] - 2 Weeks (facility/family to schedule) Visit Report/Discharge Packet Stand Alone Forms: Patient Portal/API, Stroke Signs & Symptoms Discharge Data Primary Care Provider: Simone Rodgers Quality VTE Deep Vein Thrombosis/Pulmonary Embolism Present on Admission: No
[2022-06-01 12:57] VITALS: BP 107/73; PULSE 60; RESP 17; TEMP 36.3; O2SAT 93
[2022-06-03 11:08] LABS: TCO2 ABG 35 mmol/L (23-27)
== END 2022-06-01 13:00 | disposition home health service (06) | DRG 871 ==
LOC: ED 09:50 → ICU 17:25 → AC 05-30 15:44
PROVIDERS: Family Medicine; Internal Medicine Critical Care Medicine; Internal Medicine Pulmonary Disease; Admitting Provider Internal Medicine; Emergency Provider Emergency Medicine; PCP Family Medicine; Referring Provider Emergency Medicine; Visit Provider Internal Medicine
DX: A41.9 Sepsis, unspecified organism (principal); G93.41 Metabolic encephalopathy; R57.8 Other shock; J96.22 Acute and chronic respiratory failure with hypercapnia; J96.21 Acute and chronic respiratory failure with hypoxia; I50.43 Acute on chronic combined systolic (congestive) and diastolic (congestive) heart failure; R65.21 Severe sepsis with septic shock; I13.0 Hypertensive heart and chronic kidney disease with heart failure and stage 1 through stage 4 chronic kidney disease, or unspecified chronic kidney disease; N17.9 Acute kidney failure, unspecified; M62.82 Rhabdomyolysis; I5A Non-ischemic myocardial injury (non-traumatic); J44.1 Chronic obstructive pulmonary disease with (acute) exacerbation; I47.21 Torsades de pointes; Z68.42 Body mass index [BMI] 45.0-49.9, adult; N18.9 Chronic kidney disease, unspecified; E66.01 Morbid (severe) obesity due to excess calories; E11.22 Type 2 diabetes mellitus with diabetic chronic kidney disease; E06.9 Thyroiditis, unspecified; G47.33 Obstructive sleep apnea (adult) (pediatric); Z20.822 Contact with and (suspected) exposure to COVID-19; Z87.891 Personal history of nicotine dependence; Z99.81 Dependence on supplemental oxygen; Z79.4 Long term (current) use of insulin
CPT/HCPCS: 36415; 36592; 36600; 70450; 71045; 71275; 74177; 76705; 80048; 80053; 80069; 80305; 80320; 80329; 81001; 82140; 82550; 82553; 82805; 82962; 83036; 83605; 83735; 83880; 83930; 84145; 84146; 84443; 84484; 85007; 85025; 85610; 85730; 87040; 87086; 87635; 87797; 92526; 92610; 93005; 93010; 93306; 94002; 94003; 94010; 94060; 94640; 94660; 94762; 94799; 96365; 96366; 96368; 96375; 97116; 97162; 97530; 99232; 99285; 99291; C9803; G0480; J0696; J1200; J1642; J1644; J1650; J1815; J1940; J2310; J2543; J2704; J2920; J3010; Q9957; Q9967

== ENCOUNTER → 2022-06-05 16:22 | Outpatient (ROUT) | payer OTHER, MEDICAID, SELFPAY ==
[2022-05-26 06:15] VITALS: BMI 51.9
[2022-05-26 19:34] VITALS: RESP 0
[2022-05-28 12:15] VITALS: PULSE 66; RESP 22; O2SAT 98
[2022-06-05 16:28] LABS: Appearance Urine UA CLOUDY; Bilirubin Urine UA NEGATIVE (NEGATIVE); Color Urine UA YELLOW; Glucose Urine UA NEGATIVE (Negative); Ketones Urine UA NEGATIVE (NEGATIVE); Leukocyte Esterase Urine UA 3+ (NEGATIVE); Nitrite Urine UA NEGATIVE (Negative); Occult Blood Urine UA TRACE-INTACT (Negative); Protein Urine UA TRACE (Negative); Urobilinogen Urine UA 0.2 E.U./dL (0.2)
[2022-06-05 16:38] LABS: Bacteria Urine Moderate (10-30); RBC Urine 0-1/HPF (0-5/HPF); WBC Urine 30-100/HPF (0-5/HPF)
[2022-06-05 16:39] LABS: Culture Indicated Urine Specimen Cultured; Urine Comments WBC CLUMPS PRESENT; White Blood Cell Casts Urine 0-1/LPF
== END ==
PROVIDERS: PCP Family Medicine; Visit Provider Nurse Practitioner Family
DX: R31.9 Hematuria, unspecified (principal)
CPT/HCPCS: 81001; 87077; 87086; 87185; 87186

== ENCOUNTER → 2022-06-07 07:38 | Outpatient (ROUT) | payer OTHER, MEDICAID, SELFPAY ==
[2022-05-26 06:15] VITALS: BMI 51.9
[2022-05-26 19:34] VITALS: RESP 0
[2022-05-28 12:15] VITALS: PULSE 66; RESP 22; O2SAT 98
[2022-06-07 08:56] LABS: BUN Creatinine Ratio 20.6 (6-22); Blood Urea Nitrogen 39 mg/dL (7-17); Calcium 10.2 mg/dL (8.4-10.2); Carbon Dioxide 38 mmol/L (22-32); Chloride 97 mmol/L (98-107); Estimated Glomerular Filt Rate 30 mL/min (>60); Glucose 135 mg/dL (80-110); HEMOLYSIS < 15 (0-50); Magnesium 1.8 mg/dL (1.6-2.3); Potassium 4.1 mmol/L (3.4-5.1); Sodium 137 mmol/L (137-145)
== END ==
PROVIDERS: PCP Family Medicine; Visit Provider Internal Medicine Nephrology
DX: R60.9 Edema, unspecified (principal); N18.9 Chronic kidney disease, unspecified
CPT/HCPCS: 36415; 80048; 83735

== ENCOUNTER → 2022-06-28 07:28 | Outpatient (ROUT) | payer OTHER, MEDICAID, SELFPAY ==
[2022-05-26 06:15] VITALS: BMI 51.9
[2022-05-26 19:34] VITALS: RESP 0
[2022-05-28 12:15] VITALS: PULSE 66; RESP 22; O2SAT 98
[2022-06-28 07:34] LABS: Add Manual Diff / Slide Review NO; Basophils Absolute Auto 0 /uL (0-100); Basophils Percent Auto 0.7 % (0-2); Eosinophils Absolute Auto 200 /uL (0-450); Eosinophils Percent Auto 2.9 % (2-4); Hematocrit 33.8 % (36-46); Hemoglobin 11.1 g/dL (12.0-16.0); Lymphocytes Absolute Auto 1000 /uL (1100-4500); Lymphocytes Percent Auto 17.2 % (25-40); Mean Corpuscular HGB Conc 32.9 % (30-36); Mean Corpuscular Hemoglobin 33.6 PG (26-34); Mean Corpuscular Volume 102.1 fL (80-100); Monocytes Absolute Auto 600 /uL (0-900); Monocytes Percent Auto 9.7 % (3-14); Neutrophils Absolute Auto 4100 /uL (1500-7000); Neutrophils Percent Auto 69.5 % (50-75); Platelet Count 259 X10^3/uL (150-400); Red Blood Cell Count 3.31 X10^6/uL (4.0-5.2); Red Cell Distribution Width 17.1 % (11.6-14.8); White Blood Cell Count 5.8 X10^3/uL (4.5-11.0)
[2022-06-28 07:47] LABS: Alanine Aminotransferase 15 IU/L (<35); Albumin 3.9 g/dL (3.5-5.0); Albumin Globulin Ratio 1.2 (1.0-2.8); Alkaline Phosphatase 58 U/L (38-126); Aspartate Aminotransferase 19 IU/L (14-36); BUN Creatinine Ratio 15.3 (6-22); Bilirubin Total 0.5 mg/dL (0.2-1.3); Blood Urea Nitrogen 31 mg/dL (7-17); Calcium 9.5 mg/dL (8.4-10.2); Carbon Dioxide 36 mmol/L (22-32); Chloride 98 mmol/L (98-107); Cholesterol 141 mg/dL (140-199); Estimated Glomerular Filt Rate 28 mL/min (>60); Globulin 3.3 g/dL (1.7-4.1); Glucose 239 mg/dL (80-110); HDL Cholesterol 40 mg/dL (40-60); HEMOLYSIS < 15 (0-50); LDL Cholesterol Calculated 53 mg/dL (<100); Magnesium 2.3 mg/dL (1.6-2.3); Potassium 4.2 mmol/L (3.4-5.1); Sodium 138 mmol/L (137-145); Total Protein 7.2 g/dL (6.3-8.2); Triglycerides 238 mg/dL (35-150)
[2022-06-28 08:17] LABS: Thyroid Stimulating Hormone 0.387 uIU/mL (0.47-4.68)
== END ==
PROVIDERS: PCP Family Medicine; Visit Provider Nurse Practitioner Gerontology
DX: E03.9 Hypothyroidism, unspecified (principal); E78.5 Hyperlipidemia, unspecified; N18.9 Chronic kidney disease, unspecified; E83.42 Hypomagnesemia
CPT/HCPCS: 36415; 80053; 80061; 83735; 84443; 85025

== ENCOUNTER → 2022-07-05 12:20 | Outpatient (CLI) | payer OTHER, MEDICAID, SELFPAY ==
[2022-05-26 06:15] VITALS: BMI 51.9
[2022-05-26 19:34] VITALS: RESP 0
[2022-05-28 12:15] VITALS: PULSE 66; RESP 22; O2SAT 98
--- NOTE | 2022-07-06 21:50 | DI.NM.S_ITS ---
DATE OF SERVICE: 07/05/2022 PROCEDURE: Pharmacological perfusion study. INDICATIONS: Heart failure with reduced ejection fraction with LV ejection fraction 35% with coronary artery disease with chronically occluded left circumflex artery, shortness of breath, chest pain, hypertension, hyperlipidemia. RADIOPHARMACEUTICAL: 25.5 millicurie technetium-99m Myoview IV was injected at stress and 25.5 millicurie technetium-99m Myoview IV was injected at rest. CARDIAC STRESS: The patient underwent IV Lexiscan perfusion study under the supervision of an attending staff using standard IV Lexiscan as per protocol. The patient remained hemodynamically stable. Baseline blood pressure 148/86. Baseline rhythm sinus with diffuse low-voltage complexes, left axis, poor R-wave progression. During stress, no convincing ischemic changes. No significant sustained arrhythmias. The patient had mild shortness of breath. RAW DATA: The patient's weight is 300 pounds. Arm shadow was seen. Increased subdiaphragmatic seen. Gated study poor quality. Stress LV ejection fraction 40% and resting LV ejection fraction 36%. All the rodriguez were not well seen, however, lateral wall appeared to be hypokinetic. Resting end-diastolic volume 138 mL. TID ratio 1.03, which is within normal limits. Lung/heart ratio 0.77, which is abnormal suggestive of elevated LV filling pressure. MYOCARDIAL PERFUSION SCAN: No prone images. Stress supine and resting supine images were compared to each other. There appeared to be predominantly fixed, large size, severe perfusion defect of inferolateral wall, extending into the inferior apex consistent with old infarction. No significant ischemic burden. Summed stress score 22, and summed rest score 23. CONCLUSION: This is an abnormal myocardial perfusion study consistent with large size, severe infarction of inferolateral wall, extending into the inferior apex with summed stress score 22 and summed rest score 23 without any significant reversible ischemia. Resting left ventricular ejection fraction 36% and stress left ventricular ejection fraction 40%. Significantly abnormal lung/heart ratio 0.77, suggestive of elevated left ventricular filling pressure. The patient has known history of occluded circumflex artery. Overall high-risk study. Mary Carmen Jett - JAIMEE/florence/zabrina doc#: [id number]/job#: [id number] dd: 07/06/2022 16:55:00 dt: 07/06/2022 21:39:00 DICTATING MD/COPIES TO: Prakash Mckeon MD COPIES MNE: JIMBO;
== END ==
PROVIDERS: PCP Family Medicine; Referring Provider Internal Medicine Cardiovascular Disease; Visit Provider Internal Medicine Cardiovascular Disease
DX: I25.10 Atherosclerotic heart disease of native coronary artery without angina pectoris (principal); I50.20 Unspecified systolic (congestive) heart failure; I11.0 Hypertensive heart disease with heart failure; R94.39 Abnormal result of other cardiovascular function study; R06.02 Shortness of breath; R07.9 Chest pain, unspecified; E78.5 Hyperlipidemia, unspecified
CPT/HCPCS: 78452; 93017; A9502; J2785

== ENCOUNTER 2022-07-28 19:40 | Emergency (ER) | payer OTHER, MEDICAID, SELFPAY ==
[2022-05-26 06:15] VITALS: BMI 51.9
[2022-05-26 19:34] VITALS: RESP 0
[2022-05-28 12:15] VITALS: PULSE 66; RESP 22; O2SAT 98
[2022-07-28] VITALS (13 sets, daily range): BP systolic 114–131; BP diastolic 54–75; PULSE 74–87; RESP 20–24; TEMP 36.5; O2SAT 93–99; BMI 60.9
--- NOTE | 2022-07-28 19:54 | DI.RAD.S_ITS ---
PROCEDURE: XR CHEST 1V INDICATIONS: Shortness of breath TECHNIQUE: One view of the chest was acquired. COMPARISON: [facility], CR, XR CHEST 1V, 05/26/2022, 16:10. FINDINGS: Quality decreased due to semi lordotic patient position. Surgical changes and devices: There are overlying monitoring wires. Lungs and pleura: Perihilar alveolar opacities and left lateral lung base opacity and meniscus sign laterally. Hazy mid and lower lung alveolar opacities may be secondary to projection. Mediastinum: The heart appears enlarged, though stable. Stable aortic contour. Bones and chest wall: No suspicious bony lesions. Overlying soft tissues appear unremarkable. IMPRESSION: 1. Bilateral perihilar and infrahilar alveolar opacities and small left pleural effusion suggesting CHF and pulmonary edema. Dictated by: Britney Atkins M.D. on 07/28/2022 at 20:17 Approved by: Britney Atkins M.D. on 07/28/2022 at 20:18
[2022-07-28 20:30] LABS: Add Manual Diff / Slide Review NO; Basophils Absolute Auto 0 /uL (0-100); Basophils Percent Auto 0.5 % (0-2); Eosinophils Absolute Auto 300 /uL (0-450); Eosinophils Percent Auto 4.7 % (2-4); Hematocrit 30.6 % (36-46); Lymphocytes Absolute Auto 1200 /uL (1100-4500); Lymphocytes Percent Auto 17.4 % (25-40); Mean Corpuscular HGB Conc 32.6 % (30-36); Mean Corpuscular Hemoglobin 33.5 PG (26-34); Mean Corpuscular Volume 102.6 fL (80-100); Monocytes Absolute Auto 500 /uL (0-900); Monocytes Percent Auto 6.6 % (3-14); Neutrophils Absolute Auto 4900 /uL (1500-7000); Neutrophils Percent Auto 70.8 % (50-75); Platelet Count 238 X10^3/uL (150-400); Red Blood Cell Count 2.98 X10^6/uL (4.0-5.2)
[2022-07-28 20:37] LABS: Alanine Aminotransferase 16 IU/L (<35); Albumin 3.7 g/dL (3.5-5.0); Albumin Globulin Ratio 1.3 (1.0-2.8); Alkaline Phosphatase 68 U/L (38-126); Aspartate Aminotransferase 21 IU/L (14-36); BUN Creatinine Ratio 14.7 (6-22); Blood Urea Nitrogen 32 mg/dL (7-17); Calcium 9.1 mg/dL (8.4-10.2); Carbon Dioxide 35 mmol/L (22-32); Chloride 102 mmol/L (98-107); Estimated Glomerular Filt Rate 25 mL/min (>60); Globulin 2.8 g/dL (1.7-4.1); Glucose 208 mg/dL (80-110); HEMOLYSIS < 15 (0-50); Potassium 4.9 mmol/L (3.4-5.1); Sodium 140 mmol/L (137-145); Total Protein 6.5 g/dL (6.3-8.2)
[2022-07-28 20:39] LABS: Bilirubin Total < 0.1 mg/dL (0.2-1.3); INR 1.2 (0.9-1.3); Prothrombin Time 13.5 SECONDS (10.1-12.7)
[2022-07-28 20:49] LABS: NT-proBNP (BNP-Adult 18+) 3800 pg/mL (<125); Troponin I 0.019 ng/mL (0.01-0.034)
[2022-07-28] MEDS: ALBUTEROL/IPRATROPIUM 3 ML AMPUL INH ×2 (21:00→23:30)
[2022-07-28 21:47] LABS: COVID19 -Nasal RAPID Negative (Negative)
--- NOTE | 2022-07-28 22:02 | PC.NURSE ---
Pt cleansed and placed on pure wick.
--- NOTE | 2022-07-28 22:29 | ED_ITS ---
HPI - SOB/Dyspnea General Chief Complaint: Shortness of Breath/Dyspnea Stated Complaint: SOB when laying down. Time Seen by Provider: 07/28/22 19:52 Source: patient and EMS Mode of arrival: EMS History of Present Illness HPI Narrative: Patient is a 61-year-old female history of morbid obesity COPD, on 2 and a L home O2, congestive heart failure, diabetes type 2, presents today with increasing shortness of breath ongoing for 1 week. She takes torsemide 40 mg daily she is been on inhalers as well she feels like she is more swollen. She is definitely more short of breath with exertion no actual chest pain fever or cough. She denies any abdominal pain. Related Data Home Medications Medication Instructions Recorded Confirmed acetaminophen 325 mg tablet 650 mg PO TID 05/25/22 05/25/22 (Tylenol) albuterol sulfate 90 mcg/actuation 4 puff inhalation Q4H PRN Wheezing 05/25/22 05/25/22 aerosol inhaler aspirin 81 mg tablet,delayed 81 mg PO DAILY 05/25/22 05/25/22 release budesonide-formoterol HFA 160 2 puff inhalation Q4H PRN Wheezing 05/25/22 05/25/22 mcg-4.5 mcg/actuation aerosol inhaler bupropion HCl 150 mg tablet,12 hr 150 mg PO BEDTIME 05/25/22 05/25/22 sustained-release carvedilol 3.125 mg tablet 3.125 mg PO BID 05/25/22 05/25/22 cyanocobalamin (vitamin B-12) 500 500 mcg PO DAILY 05/25/22 05/25/22 mcg tablet fenofibrate 160 mg tablet 160 mg PO DAILY 05/25/22 05/25/22 ferrous sulfate 325 mg (65 mg 325 mg PO DAILY 05/25/22 05/25/22 iron) tablet fluoxetine 20 mg tablet 20 mg PO DAILY 05/25/22 05/25/22 fluticasone propionate 50 2 spray intranasal DAILY 05/25/22 05/25/22 mcg/actuation nasal spray,suspension gabapentin 300 mg capsule 300 mg PO BEDTIME 05/25/22 05/25/22 insulin glargine 100 unit/mL (3 22 unit SUBCUT BID 05/25/22 05/25/22 mL) subcutaneous pen insulin lispro 100 unit/mL 4 unit SUBCUT TIDWM 05/25/22 05/25/22 subcutaneous solution (Humalog U-100 Insulin) levothyroxine 200 mcg tablet 200 mcg PO DAILY 05/25/22 05/25/22 lidocaine 5 % topical patch 1 patch topical DAILY 05/25/22 05/25/22 loratadine 10 mg tablet 10 mg PO DAILY 05/25/22 05/25/22 magnesium hydroxide 400 mg/5 mL 15 ml PO Q24H PRN Constipation 05/25/22 05/25/22 oral suspension (Milk of Magnesia) magnesium oxide 200 mg PO BID 05/25/22 05/25/22 meclizine 25 mg tablet 25 mg PO Q8HR PRN Dizziness 05/25/22 05/25/22 montelukast 10 mg tablet 10 mg PO DAILY 05/25/22 05/25/22 nystatin 100,000 unit/gram topical 1 applic topical BID PRN Rash 05/25/22 05/25/22 powder ondansetron 4 mg disintegrating 4 mg PO Q8H PRN Nausea 05/25/22 05/25/22 tablet rosuvastatin 40 mg tablet 40 mg PO DAILY 05/25/22 05/25/22 sennosides 8.6 mg tablet (senna) 17.2 mg PO BEDTIME 05/25/22 05/25/22 tiotropium bromide 18 mcg capsule 1 cap inhalation DAILY 05/25/22 05/25/22 with inhalation device (Spiriva with HandiHaler) trazodone 50 mg tablet 50 mg PO BEDTIME 05/25/22 05/25/22 Previous Rx's Medication Instructions Recorded torsemide 10 mg tablet 10 mg PO DAILY #30 tabs 06/01/22 Allergies Allergy/AdvReac Type Severity Reaction Status Date / Time No Known Drug Allergies Allergy Verified 05/25/22 12:43 Review of Systems Review of Systems ROS Unobtainable: All systems reviewed & are unremarkable except as noted in HPI and below Patient History Medical History Chronic hypoxemic respiratory failure COPD (chronic obstructive pulmonary disease) DM2 (diabetes mellitus, type 2) HTN (hypertension) Obesity PONCE (obstructive sleep apnea) Systolic and diastolic CHF, chronic Thyroiditis Surgical History S/P hernia surgery Family History Mother No pertinent past medical history Father No pertinent past medical history Social History household members: other Smoking Status: Former smoker Smoking Status: Former smoker alcohol intake frequency: other Substance Use Type: does not use Exam Initial Vital Signs Initial Vital Signs: Vital Signs Pulse Rate 87 07/28/22 19:48 Blood Pressure 128/75 07/28/22 19:48 Pulse Oximetry 97 07/28/22 19:48 GENERAL: Alert 61-year-old female BMI 60 sitting upright no acute respiratory distress HEENT: Head atraumatic,EOMI, pupils reactive, face symmetric, moist mucous membranes CARDIOVASCULAR: Regular rate and rhythm without murmurs, rubs or gallops. RESPIRATORY: Slight crackles at bases minimal wheezing no conversational dyspnea no significant tachypnea ABDOMEN: Soft, nontender. Normoactive bowel sounds all 4 quadrants. No guarding or rebound. EXTREMITIES: Normal range of motion, no clubbing or edema. Neurovascularly intact NEUROLOGICAL: Alert and oriented x4. SKIN: Warm, dry, no laceration, no petechiae, no rashes or lesions. Course Orders Ordered: Discontinued Medications Albuterol/Ipratropium (Albuterol/Ipratropium 3 Ml Ampul) 3 ml INH NOW ONE Stop: 07/28/22 20:57 Last Admin: 07/28/22 21:00 Dose: 3 ml Documented By: Albuterol/Ipratropium (Albuterol/Ipratropium 3 Ml Ampul) 3 ml INH NOW ONE Stop: 07/28/22 23:25 Last Admin: 07/28/22 23:30 Dose: 3 ml Documented By: Furosemide 60 mg/ Sodium (Chloride) 56 mls @ 112 mls/hr IV NOW ONE Stop: 07/28/22 22:52 Last Infusion: 07/28/22 23:32 Dose: 0 mls/hr Documented By: Admin: 07/28/22 22:57 Dose: 112 mls/hr Documented By: Methylprednisolone (Methylprednisolone 125 Mg/2 Ml Vial) 125 mg IV NOW ONE Stop: 07/28/22 23:25 Last Admin: 07/28/22 23:42 Dose: 125 mg Documented By: Vital Signs Vital signs: Vital Signs - 8 hr 07/28/22 22:30 07/28/22 23:00 07/28/22 23:30 Pulse Rate 78 75 74 Respiratory Rate 24 24 22 Blood Pressure Pulse Oximetry 95 96 96 07/28/22 23:42 07/28/22 23:42 07/29/22 00:00 Pulse Rate 78 Respiratory Rate 23 Blood Pressure 114/72 109/64 Pulse Oximetry 97 07/29/22 00:00 07/29/22 00:30 07/29/22 00:31 Pulse Rate 74 74 75 Respiratory Rate 20 22 23 Blood Pressure Pulse Oximetry 96 96 96 07/29/22 00:31 07/29/22 01:00 07/29/22 01:00 Pulse Rate 73 Respiratory Rate 20 Blood Pressure 108/67 113/70 Pulse Oximetry 95 07/29/22 01:30 07/29/22 01:30 07/29/22 02:00 Pulse Rate 72 74 Respiratory Rate 28 H 28 H Blood Pressure 118/80 Pulse Oximetry 95 97 07/29/22 02:01 07/29/22 02:01 07/29/22 02:30 Pulse Rate 76 78 Respiratory Rate 33 H 22 Blood Pressure 108/87 Pulse Oximetry 96 97 07/29/22 03:00 07/29/22 03:00 07/29/22 03:30 Pulse Rate 77 77 Respiratory Rate 22 24 Blood Pressure 120/89 Pulse Oximetry 95 96 07/29/22 04:49 07/29/22 04:50 07/29/22 04:50 Pulse Rate 75 Respiratory Rate Blood Pressure 125/73 Pulse Oximetry 92 93 MDM - SOB/Dyspnea Lab Data 07/28/22 20:15 07/28/22 20:15 Labs: Lab Results 07/28/22 07/28/22 07/28/22 Range/Units 19:57 20:15 20:15 WBC 7.0 (4.5-11.0) X10^3/uL RBC 2.98 L (4.0-5.2) X10^6/uL Hgb 10.0 L (12.0-16.0) g/dL Hct 30.6 L (36-46) % MCV 102.6 H (80-100) fL MCH 33.5 (26-34) PG MCHC 32.6 (30-36) % RDW 16.0 H (11.6-14.8) % Plt Count 238 (150-400) X10^3/uL Neut % (Auto) 70.8 (50-75) % Lymph % (Auto) 17.4 L (25-40) % [place] % (Auto) 6.6 (3-14) % Eos % (Auto) 4.7 H (2-4) % Baso % (Auto) 0.5 (0-2) % Neut # (Auto) 4900 (4636-6091) /uL Lymph # (Auto) 1200 (2651-8948) /uL [place] # (Auto) 500 (0-900) /uL Eos # (Auto) 300 (0-450) /uL Baso # (Auto) 0 (0-100) /uL PT 13.5 H (10.1-12.7) SECONDS INR 1.2 (0.9-1.3) Sodium (137-145) mmol/L Potassium (3.4-5.1) mmol/L Chloride (98-107) mmol/L Carbon Dioxide (22-32) mmol/L BUN (7-17) mg/dL Creatinine (0.52-1.04) mg/dL Estimated GFR (>60) mL/min BUN/Creatinine Ratio (6-22) Glucose (80-110) mg/dL Calcium (8.4-10.2) mg/dL Total Bilirubin (0.2-1.3) mg/dL AST (14-36) IU/L ALT (<35) IU/L Alkaline Phosphatase (38-126) U/L Troponin I (0.01-0.034) ng/mL NT-Pro-B Natriuret Pep (<125) pg/mL Total Protein (6.3-8.2) g/dL Albumin (3.5-5.0) g/dL Globulin (1.7-4.1) g/dL Albumin/Globulin Ratio (1.0-2.8) SARS-CoV-2 (PCR) Negative (Negative) 07/28/22 Range/Units 20:15 WBC (4.5-11.0) X10^3/uL RBC (4.0-5.2) X10^6/uL Hgb (12.0-16.0) g/dL Hct (36-46) % MCV (80-100) fL MCH (26-34) PG MCHC (30-36) % RDW (11.6-14.8) % Plt Count (150-400) X10^3/uL Neut % (Auto) (50-75) % Lymph % (Auto) (25-40) % [place] % (Auto) (3-14) % Eos % (Auto) (2-4) % Baso % (Auto) (0-2) % Neut # (Auto) (7439-7344) /uL Lymph # (Auto) (7097-2606) /uL [place] # (Auto) (0-900) /uL Eos # (Auto) (0-450) /uL Baso # (Auto) (0-100) /uL PT (10.1-12.7) SECONDS INR (0.9-1.3) Sodium 140 (137-145) mmol/L Potassium 4.9 (3.4-5.1) mmol/L Chloride 102 (98-107) mmol/L Carbon Dioxide 35 H (22-32) mmol/L BUN 32 H (7-17) mg/dL Creatinine 2.18 H (0.52-1.04) mg/dL Estimated GFR 25 L (>60) mL/min BUN/Creatinine Ratio 14.7 (6-22) Glucose 208 H (80-110) mg/dL Calcium 9.1 (8.4-10.2) mg/dL Total Bilirubin < 0.1 L (0.2-1.3) mg/dL AST 21 (14-36) IU/L ALT 16 (<35) IU/L Alkaline Phosphatase 68 (38-126) U/L Troponin I 0.019 (0.01-0.034) ng/mL NT-Pro-B Natriuret Pep 3800 H (<125) pg/mL Total Protein 6.5 (6.3-8.2) g/dL Albumin 3.7 (3.5-5.0) g/dL Globulin 2.8 (1.7-4.1) g/dL Albumin/Globulin Ratio 1.3 (1.0-2.8) SARS-CoV-2 (PCR) (Negative) Imaging Data Chest x-ray: Radiologist's Impression: PROCEDURE:? XR CHEST 1V ? INDICATIONS:? Shortness of breath ? TECHNIQUE:? One view of the chest was acquired.? ? COMPARISON:? [facility], CR, XR CHEST 1V, 05/26/2022, 16:10. ? FINDINGS:? Quality decreased due to semi lordotic patient position. ? Surgical changes and devices:? There are overlying monitoring wires. ? Lungs and pleura:? Perihilar alveolar opacities and left lateral lung base opacity and meniscus sign laterally.? Hazy mid and lower lung alveolar opacities may be secondary to projection. ? Mediastinum:? The heart appears enlarged, though stable.? Stable aortic contour. ? Bones and chest wall:? No suspicious bony lesions.? Overlying soft tissues appear unremarkable.? ? IMPRESSION:? ? 1. Bilateral perihilar and infrahilar alveolar opacities and small left pleural effusion suggesting CHF and pulmonary edema.? ? ? Dictated by: Britney Atkins M.D. on 07/28/2022 at 20:17 ? ? ECG Data Interpretation: Sinus rhythm rate 70 FL interval 200 QRS 94 QTC 503, improved from previous EKGs MDM Narrative Medical decision making narrative: Patient 61-year-old female multiple comorbidities on home oxygen presenting with increasing shortness of breath. She normally is unlike 2.5 L of O2 now requiring about 3-1/2 no significant tachypnea or respiratory distress. Chest x-ray does show bilateral perihilar and infrahilar alveolar opacities suggesting pulmonary edema and CHF. BNP is elevated at 30 100 previously was up to 5000. Symptoms with exertional dyspnea correlate with the congestive heart failure exacerbation. She does have COPD she has been given some breathing treatments here which help a little. It appears that she is on torsemide 40 mg daily. Creatinine today is 2.18 previously on June 28 it was 2.0 minimally elevated today. Electrolytes are at about baseline, overall blood work looks stable without sign of leukocytosis or infection. She is given 60 mg of Lasix in the emergency department she is had significant urinary output. She was given a dose of Solu-Medrol to help with possible COPD exacerbation as well. Without significant sign of dyspnea significant increase in oxygen or abnormal blood work I think reasonable to treat her as an outpatient. Increase torsemide to 40 mg twice a day for the next 4 days. We discussed that she may need to return for admission however reasonable to treat as an outpatient at this time. No concern for pulmonary embolism at this time signs and symptoms consistent with congestive heart failure along with history of congestive heart failure Discharge Plan Departure Patient Disposition: Home Clinical Impression: Congestive heart failure Instructions: DI for Heart Failure Activity Restrictions/Additional Instructions: *You have been diagnosed with congestive heart failure *What to do: This time reasonable to try keep you out of the hospital. *Continue to take medications as directed Increase torsemide 40 mg twice a day for 4 days *Follow up with your primary care provider in 2-3 days or call [phone] *Return to ER if you should have increasing shortness of breath fever chest pain or any new, worsening or concerning symptoms Prescriptions: No Action bupropion HCl 150 mg tablet sustained-release 12 hr 150 mg PO BEDTIME sennosides [senna] 8.6 mg tablet 17.2 mg PO BEDTIME acetaminophen [Tylenol] 325 mg Tablet 650 mg PO TID trazodone 50 mg tablet 50 mg PO BEDTIME aspirin 81 mg Tablet,Delayed Release (Dr/Ec) 81 mg PO DAILY carvedilol 3.125 mg tablet 3.125 mg PO BID magnesium hydroxide [Milk of Magnesia] 400 mg/5 mL Suspension 15 ml PO Q24H PRN (Reason: Constipation) cyanocobalamin (vitamin B-12) 500 mcg Tablet 500 mcg PO DAILY meclizine 25 mg tablet 25 mg PO Q8HR PRN (Reason: Dizziness) ferrous sulfate 325 mg (65 mg iron) Tablet 325 mg PO DAILY fluoxetine 20 mg Tablet 20 mg PO DAILY lidocaine 5 % adhesive patch,medicated 1 patch topical DAILY Rx Instructions: to right bicep gabapentin 300 mg Capsule 300 mg PO BEDTIME montelukast 10 mg Tablet 10 mg PO DAILY levothyroxine 200 mcg tablet 200 mcg PO DAILY nystatin 100,000 unit/gram Powder 1 applic TOPICAL BID PRN (Reason: Rash) insulin lispro [Humalog U-100 Insulin] 100 unit/mL Solution 4 unit SUBCUT TIDWM albuterol sulfate 90 mcg/actuation Hfa Aerosol Inhaler 4 puff INHALATION Q4H PRN (Reason: Wheezing) ondansetron 4 mg Tablet,Disintegrating 4 mg PO Q8H PRN (Reason: Nausea) fluticasone propionate 50 mcg/actuation [place],Suspension 2 spray INTRANASAL DAILY Rx Instructions: administer into each nostril loratadine 10 mg Tablet 10 mg PO DAILY rosuvastatin 40 mg Tablet 40 mg PO DAILY Spiriva with HandiHaler 18 mcg Capsule, W/Inhalation Device 1 cap INHALATION DAILY Rx Instructions: puncture 1 cap using device; one dose = 2 inhalations fenofibrate 160 mg Tablet 160 mg PO DAILY budesonide-formoterol 160-4.5 mcg/actuation Hfa Aerosol Inhaler 2 puff INHALATION Q4H PRN (Reason: Wheezing) insulin glargine 100 unit/mL (3 mL) Insulin Pen 22 unit SUBCUT BID magnesium oxide 200 mg magnesium Tablet 200 mg PO BID torsemide 10 mg Tablet 10 mg PO DAILY Qty: 30 0RF Referrals: Simone Rodgers MD [Primary Care Provider] - Stand Alone Forms: Patient Portal/API
[2022-07-28] MEDS: FUROSEMIDE 60 MG in SODIUM CHLORIDE 0.9% 50 ML 112 MG IV (22:57)
[2022-07-28] MEDS: methylPREDNISolone 125 MG/2 ML VIAL IV (23:42)
[2022-07-29] VITALS (12 sets, daily range): BP systolic 108–125; BP diastolic 64–89; PULSE 72–78; RESP 20–33; O2SAT 92–97
--- NOTE | 2022-07-29 02:04 | PC.NURSE ---
Attempted to call [facility] for pt for report. No answer. VM left. Awaiting return call.
== END 2022-07-29 05:03 | disposition home or self-care (01) ==
PROVIDERS: Emergency Provider Emergency Medicine; PCP Family Medicine
DX: I50.9 Heart failure, unspecified (principal); R06.02 Shortness of breath; R79.89 Other specified abnormal findings of blood chemistry; Z79.899 Other long term (current) drug therapy; Z20.822 Contact with and (suspected) exposure to COVID-19
CPT/HCPCS: 71045; 80053; 83880; 84484; 85025; 85610; 87635; 93005; 94640; 96365; 96375; 99285; C9803; J1940; J2930

== ENCOUNTER 2022-08-15 16:11 | Inpatient (IN) | payer OTHER, MEDICAID, SELFPAY ==
[2022-05-26 06:15] VITALS: BMI 51.9
[2022-05-26 19:34] VITALS: RESP 0
[2022-05-28 12:15] VITALS: PULSE 66; RESP 22; O2SAT 98
[2022-08-15] VITALS (117 sets, daily range): BP systolic 90–166; BP diastolic 52–93; PULSE 50–85; RESP 10–39; TEMP 31–37.1; O2SAT 63–100; BMI 50.2
--- NOTE | 2022-08-15 16:21 | DI.RAD.S_ITS ---
PROCEDURE: XR CHEST 1V INDICATIONS: suspected sepsis TECHNIQUE: One view of the chest was acquired. COMPARISON: [facility], CR, XR CHEST 1V, 07/28/2022, 19:52. FINDINGS: Surgical changes and devices: None. Lungs and pleura: Low lung volumes. Bibasilar opacities, similar compared to the prior study, accentuated by overlapping soft tissue. The upper lungs demonstrate mild interstitial thickening. No significant pneumothorax. Mediastinum: Stable enlarged cardiomediastinal contour and indistinct central vessels. Bones and chest wall: No suspicious bony lesions. Overlying soft tissues appear unremarkable. IMPRESSION: 1. Probable interstitial and central vascular congestion. Likely CHF, however underlying infection is not excluded. 2. Findings are accentuated by soft tissue and patient positioning. Dictated by: Britney Atkins M.D. on 08/15/2022 at 17:19 Approved by: Britney Atkins M.D. on 08/15/2022 at 17:21
--- NOTE | 2022-08-15 16:38 | ED_ITS ---
HPI - SOB/Dyspnea General Chief Complaint: Shortness of Breath/Dyspnea Stated Complaint: SOB Time Seen by Provider: 08/15/22 16:37 Source: patient and EMS Mode of arrival: EMS Limitations: physical limitation History of Present Illness HPI Narrative: This is 61-year-old female with history of morbid obesity, COPD on 2 L nasal cannula typically, CHF, diabetes type 2 with increasing difficulty with breathing. She states she is filed unwell for a couple weeks but much worse today. Patient states she does feel like she is having trouble breathing. She denies fevers or chills. No increasing cold cough or congestion. She states she is always swollen she does not feel like she is more swollen. She denies chest pain. She denies abdominal back or flank pain. No nausea vomiting. She denies other GI or urinary symptoms currently. Patient states she does use CPAP at home, she is not had any issues with this. She states she has been taking her regular medications and denies any new changes. She states she has been intubated for breathing issues. No known drug allergies. Related Data Home Medications Medication Instructions Recorded Confirmed acetaminophen 325 mg tablet 650 mg PO TID 05/25/22 08/15/22 (Tylenol) aspirin 81 mg tablet,delayed 81 mg PO DAILY 05/25/22 08/15/22 release budesonide-formoterol HFA 160 2 puff inhalation Q4H PRN Wheezing 05/25/22 08/15/22 mcg-4.5 mcg/actuation aerosol inhaler bupropion HCl 150 mg tablet,12 hr 150 mg PO BEDTIME 05/25/22 08/15/22 sustained-release carvedilol 3.125 mg tablet 3.125 mg PO BID 05/25/22 08/15/22 cyanocobalamin (vitamin B-12) 500 500 mcg PO DAILY 05/25/22 08/15/22 mcg tablet fenofibrate 160 mg tablet 160 mg PO DAILY 05/25/22 08/15/22 ferrous sulfate 325 mg (65 mg 325 mg PO DAILY 05/25/22 08/15/22 iron) tablet fluoxetine 20 mg tablet 20 mg PO DAILY 05/25/22 08/15/22 fluticasone propionate 50 2 spray intranasal DAILY 05/25/22 08/15/22 mcg/actuation nasal spray,suspension gabapentin 300 mg capsule 300 mg PO BEDTIME 05/25/22 08/15/22 insulin glargine 100 unit/mL (3 22 unit SUBCUT BID 05/25/22 08/16/22 mL) subcutaneous pen insulin lispro 100 unit/mL 4 unit SUBCUT TIDWM 05/25/22 08/16/22 subcutaneous solution (Humalog U-100 Insulin) lidocaine 5 % topical patch 1 patch topical DAILY 05/25/22 08/15/22 loratadine 10 mg tablet 10 mg PO DAILY 05/25/22 08/15/22 magnesium oxide 200 mg PO BID 05/25/22 08/15/22 meclizine 25 mg tablet 25 mg PO Q8HR PRN Dizziness 05/25/22 08/15/22 montelukast 10 mg tablet 10 mg PO DAILY 05/25/22 08/15/22 nystatin 100,000 unit/gram topical 1 applic topical BID PRN Rash 05/25/22 08/16/22 powder ondansetron 4 mg disintegrating 4 mg PO Q8H PRN Nausea 05/25/22 08/15/22 tablet rosuvastatin 40 mg tablet 40 mg PO DAILY 05/25/22 08/15/22 sennosides 8.6 mg tablet (senna) 17.2 mg PO BEDTIME 05/25/22 08/15/22 tiotropium bromide 18 mcg capsule 1 cap inhalation DAILY 05/25/22 08/15/22 with inhalation device (Spiriva with HandiHaler) trazodone 50 mg tablet 50 mg PO BEDTIME 05/25/22 08/15/22 albuterol sulfate 90 mcg/actuation 4 puff inhalation Q4H PRN 08/15/22 08/15/22 aerosol inhaler Shortness Of Breath Or Wheezing levothyroxine 175 mcg tablet 175 mcg PO DAILY 08/15/22 08/15/22 potassium chloride 10 mEq 10 meq PO DAILY 08/15/22 08/15/22 tablet,extended release torsemide 10 mg tablet 20 mg PO BID 08/15/22 08/16/22 Allergies Allergy/AdvReac Type Severity Reaction Status Date / Time No Known Drug Allergies Allergy Verified 05/25/22 12:43 Review of Systems Review of Systems ROS Unobtainable: All systems reviewed & are unremarkable except as noted in HPI and below Patient History Medical History Chronic hypoxemic respiratory failure COPD (chronic obstructive pulmonary disease) DM2 (diabetes mellitus, type 2) HTN (hypertension) Obesity PONCE (obstructive sleep apnea) Systolic and diastolic CHF, chronic Thyroiditis Surgical History S/P hernia surgery Family History Mother No pertinent past medical history Father No pertinent past medical history Social History household members: other Smoking Status: Former smoker Smoking Status: Former smoker alcohol intake frequency: other Substance Use Type: does not use Exam Narrative Exam Narrative: GEN: Obese female, alert and oriented, patient appears to be in moderate distress. HEENT: Atraumatic, pupils are equal round reactive to light, extraocular movements are intact, nares are clear, TMs are clear with no fluid, there is no conjunctival pallor. Throat is clear without any exudates, erythema, tonsillar enlargement or uvular deviation HEART: Regular rate and rhythm without murmur, clicks, rubs. Bilateral lower extremity swelling, 2+. LUNGS:Lungs clear to auscultation difficult exam secondary to habitus, no wheezes, rales, crackles, chest moves symmetrically, patient's pulse ox was 73% initially but very slowly improved when O2 was increased. No tachypnea. Speaks in 3-5 word sentences. ABD:bowel sounds normal, soft, non-tender, no guarding, rebound, rigidity, no masses noted, no hepatosplenomegaly :No CVA tenderness, [male/female exam] MSCL: Non-tender, no muscle atrophy, muscles strength 5/5 upper and lower extremities, full range of motion NEURO:CN 2-12 intact, sensation normal SKIN: Patient has wound on her left lower extremity with some breakdown, small amount of drainage. Initial Vital Signs Initial Vital Signs: Vital Signs Temperature 97.6 F 08/15/22 16:15 Pulse Rate 77 08/15/22 16:15 Respiratory Rate 28 H 08/15/22 16:15 Blood Pressure 113/57 L 08/15/22 16:15 Pulse Oximetry 73 L 08/15/22 16:15 Oxygen Delivery Method Nasal Cannula 08/15/22 16:15 Oxygen Flow Rate 3 08/15/22 16:15 Procedures Intubation Time out performed: Yes sedative: Etomidate Mg Given: 10 paralytic: Succinylcholine Mg Given: 150 Laryngoscope: fiber optic video scope (glidoscope) ET Tube Size: 7.5 ET Tube Uncuffed: No Tube Secured Depth (cm): 21 Tube Secured Location: teeth Tube Placement Confirmation: Visualized tube passing through cords, Equal breath sounds bilaterally, No breath sounds over epigastrium, Confirmation by capnometry and Chest Xray Patient Tolerated Procedure: Well and No complications Intubation Complications: other (anterior airway, required repositioning. ) Course Orders Ordered: Acetaminophen (Acetaminophen Susp 650 Mg/20.3 Ml Udc) 650 mg PO Q6HR PRN PRN Reason: Fever/Mild Pain (1-3) Last Admin: 08/17/22 01:19 Dose: 650 mg Documented By: Admin: 08/16/22 15:26 Dose: 650 mg Documented By: JUANITO Albuterol (Albuterol 2.5 Mg/3 Ml Neb (Adult)) 2.5 mg INH [id number] PRN PRN Reason: Shortness Of Breath Albuterol/Ipratropium (Albuterol/Ipratropium 3 Ml Ampul) 3 ml INH [id number] JAY JAY Last Admin: 08/17/22 07:16 Dose: 3 ml Documented By: Admin: 08/17/22 07:16 Dose: Not Given Documented By: Admin: 08/16/22 21:25 Dose: 3 ml Documented By: Admin: 08/16/22 21:24 Dose: Not Given Documented By: Admin: 08/16/22 15:20 Dose: 3 ml Documented By: Admin: 08/16/22 10:54 Dose: 3 ml Documented By: Admin: 08/16/22 07:48 Dose: 3 ml Documented By: Admin: 08/16/22 02:32 Dose: 3 ml Documented By: Admin: 08/16/22 02:31 Dose: Not Given Documented By: SANDRA Dextrose (Dextrose 50 % In Water 25 Gm/50 Ml Syringe) 25 gm IV PRN PRN PRN Reason: Hypoglycemia Fentanyl (Fentanyl 100 Mcg/2 Ml Inj) 50 mcg IV Q30MIN PRN PRN Reason: Severe Pain or agitation Last Admin: 08/15/22 18:54 Dose: 50 mcg Documented By: SB Heparin Sodium (Porcine) (Heparin 5,000 Unit/Ml Vial) 7,500 unit SUBCUT Q8H [facility] Last Admin: 08/17/22 04:27 Dose: 7,500 unit Documented By: Admin: 08/16/22 21:16 Dose: 7,500 unit Documented By: Admin: 08/16/22 12:51 Dose: 7,500 unit Documented By: Fentanyl 1,000 mcg/ Dextrose 250 mls @ 22.504 mls/hr IV TITRATE [facility]; Protocol Last Titration: 08/17/22 05:43 Dose: 0.2 mcg/kg/hr, 6.43 mls/hr Documented By: Titration: 08/17/22 02:19 Dose: 0.3 mcg/kg/hr, 9.644 mls/hr Documented By: Admin: 08/16/22 22:13 Dose: 0.4 mcg/kg/hr, 12.859 mls/hr Documented By: Titration: 08/16/22 22:13 Dose: 0.4 mcg/kg/hr, 12.859 mls/hr Documented By: Titration: 08/16/22 20:51 Dose: 0.4 mcg/kg/hr, 12.859 mls/hr Documented By: Titration: 08/16/22 10:50 Dose: 0.5 mcg/kg/hr, 16.074 mls/hr Documented By: Titration: 08/16/22 09:10 Dose: 0.7 mcg/kg/hr, 22.504 mls/hr Documented By: Titration: 08/16/22 07:36 Dose: 0 mcg/kg/hr, 0 mls/hr Documented By: Admin: 08/16/22 06:55 Dose: 0.7 mcg/kg/hr, 22.504 mls/hr Documented By: Titration: 08/16/22 06:02 Dose: 0.7 mcg/kg/hr, 22.504 mls/hr Documented By: Titration: 08/15/22 23:52 Dose: 0.7 mcg/kg/hr, 22.504 mls/hr Documented By: Titration: 08/15/22 23:18 Dose: 0.7 mcg/kg/hr, 22.504 mls/hr Documented By: Admin: 08/15/22 18:55 Dose: 0.7 mcg/kg/hr, 22.504 mls/hr Documented By: SB Azithromycin 500 mg/ Dextrose 250 mls @ 250 mls/hr IV Q24H JAY JAY Last Infusion: 08/17/22 00:43 Dose: 0 mls/hr Documented By: Admin: 08/16/22 23:33 Dose: 250 mls/hr Documented By: Admin: 08/16/22 08:47 Dose: Not Given Documented By: MS Piperacillin Sod/Tazobactam (Sod 4.5 gm/ Sodium Chloride) 100 mls @ 25 mls/hr IV Q8H JAY JAY Last Admin: 08/17/22 02:09 Dose: 25 mls/hr Documented By: Infusion: 08/17/22 02:09 Dose: 25 mls/hr Documented By: Infusion: 08/16/22 21:28 Dose: 0 mls/hr Documented By: Infusion: 08/16/22 21:28 Dose: 0 mls/hr Documented By: Admin: 08/16/22 17:58 Dose: 25 mls/hr Documented By: Infusion: 08/16/22 15:30 Dose: 0 mls/hr Documented By: Admin: 08/16/22 11:25 Dose: 25 mls/hr Documented By: dexmedeTOMIDine in 0.9 % NaCL (Precedex) 400 mcg in 100 mls @ 6.43 mls/hr IV TITRATE JAY JAY; Protocol Last Admin: 08/16/22 23:30 Dose: 0.2 mcg/kg/hr, 6.43 mls/hr Documented By: Titration: 08/16/22 23:30 Dose: 0.2 mcg/kg/hr, 6.43 mls/hr Documented By: Admin: 08/16/22 11:26 Dose: 0.2 mcg/kg/hr, 6.43 mls/hr Documented By: Propofol (Propofol) 1,000 mg in 100 mls @ 3.858 mls/hr IV TITRATE JAY JAY; Protocol Last Titration: 08/17/22 05:27 Dose: 0 mcg/kg/min, 0 mls/hr Documented By: Titration: 08/16/22 23:35 Dose: 3 mcg/kg/min, 2.315 mls/hr Documented By: Titration: 08/16/22 23:00 Dose: 4 mcg/kg/min, 3.086 mls/hr Documented By: Admin: 08/16/22 11:26 Dose: 5 mcg/kg/min, 3.858 mls/hr Documented By: MS NOREPINEPHRINE BITARTRATE/D5W (Levophed) 4 mg in 250 mls @ 30 mls/hr IV TITRATE JAY JAY; Protocol Last Titration: 08/17/22 05:27 Dose: 0 mcg/min, 0 mls/hr Documented By: Titration: 08/16/22 22:00 Dose: 3 mcg/min, 11.25 mls/hr Documented By: Titration: 08/16/22 21:04 Dose: 4 mcg/min, 15 mls/hr Documented By: Admin: 08/16/22 19:51 Dose: 5 mcg/min, 18.75 mls/hr Documented By: Titration: 08/16/22 19:51 Dose: 7 mcg/min, 26.25 mls/hr Documented By: Titration: 08/16/22 14:00 Dose: 7 mcg/min, 26.25 mls/hr Documented By: Admin: 08/16/22 11:25 Dose: 8 mcg/min, 30 mls/hr Documented By: Titration: 08/16/22 11:25 Dose: 8 mcg/min, 30 mls/hr Documented By: Admin: 08/16/22 11:18 Dose: 8 mcg/min, 30 mls/hr Documented By: MS Insulin Glargine (Insulin Glargine 100 Unit/Ml 3ml Pen) 15 unit SUBCUT BID [facility] Insulin Human Lispro (Insulin Lispro 100 Unit/Ml 3ml Vial) 0 unit SUBCUT Q6H JAY JAY; Protocol Methylprednisolone (Methylprednisolone 125 Mg/2 Ml Vial) 60 mg IV Q12H JAY JAY Last Admin: 08/17/22 00:21 Dose: 60 mg Documented By: Admin: 08/16/22 12:50 Dose: 60 mg Documented By: Admin: 08/16/22 02:17 Dose: 60 mg Documented By: LN Montelukast Sodium (Montelukast 10 Mg Tablet) 10 mg PO DAILY JAY JAY Last Admin: 08/16/22 09:19 Dose: Not Given Documented By: MS Ondansetron HCl (Ondansetron 4 Mg/2 Ml Inj) 4 mg IV Q8HR PRN PRN Reason: Nausea And Vomiting Pantoprazole Sodium (Pantoprazole 40 Mg Vial) 40 mg IV DAILY [facility] Discontinued Medications Acetaminophen (Acetaminophen 325 Mg Tablet) 650 mg PO Q6H PRN PRN Reason: Fever/Mild Pain (1-3) Dextrose (Dextrose 50 % In Water 25 Gm/50 Ml Syringe) 25 gm IV NOW ONE Stop: 08/15/22 19:58 Last Admin: 08/15/22 20:17 Dose: 25 gm Documented By: KEZIA Etomidate (Etomidate 2 Mg/Ml 10 Ml Vial) 10 mg IV NOW ONE Stop: 08/15/22 18:16 Last Admin: 08/15/22 18:36 Dose: 10 mg Documented By: ASHLEY Heparin Sodium (Porcine) (Heparin 5,000 Unit/Ml Vial) 5,000 unit SUBCUT BID [facility] Heparin Sodium (Porcine) (Heparin 5,000 Unit/Ml Vial) 7,500 unit SUBCUT Q8H [facility] Last Admin: 08/16/22 13:33 Dose: Not Given Documented By: MS Ceftriaxone Sodium 2,000 mg/ (Sodium Chloride) 100 mls @ 200 mls/hr IV NOW ONE Stop: 08/15/22 17:19 Last Infusion: 08/15/22 18:30 Dose: 0 mls/hr Documented By: Admin: 08/15/22 17:36 Dose: 200 mls/hr Documented By: ASHLEY Sodium Chloride (Normal Saline 0.9%) 500 mls @ 1,000 mls/hr IV BOLUS ONE Stop: 08/15/22 17:48 Last Infusion: 08/15/22 18:30 Dose: 0 mls/hr Documented By: Admin: 08/15/22 17:37 Dose: 1,000 mls/hr Documented By: SB Furosemide 60 mg/ Sodium (Chloride) 56 mls @ 112 mls/hr IV NOW ONE Stop: 08/15/22 17:56 Last Infusion: 08/15/22 18:40 Dose: 0 mls/hr Documented By: Admin: 08/15/22 18:05 Dose: 112 mls/hr Documented By: ASHLEY Midazolam HCl 50 mg/ Dextrose 50 mls @ 2.572 mls/hr IV TITRATE PRN; Protocol PRN Reason: intubation Stop: 08/17/22 00:00 Midazolam HCl 50 mg/ Dextrose 50 mls @ 5 mls/hr IV TITRATE PRN; Protocol PRN Reason: Sedation Midazolam HCl 50 mg/ Dextrose 250 mls @ 12.859 mls/hr IV TITRATE PRN; Protocol PRN Reason: ventilation Last Titration: 08/16/22 10:50 Dose: 0 mg/kg/hr, 0 mls/hr Documented By: Titration: 08/16/22 09:10 Dose: 0.02 mg/kg/hr, 12.859 mls/hr Documented By: Titration: 08/16/22 07:32 Dose: 0 mg/kg/hr, 0 mls/hr Documented By: Titration: 08/15/22 23:51 Dose: 0.02 mg/kg/hr, 12.859 mls/hr Documented By: Titration: 08/15/22 23:18 Dose: 0.02 mg/kg/hr, 12.859 mls/hr Documented By: Admin: 08/15/22 18:55 Dose: 0.02 mg/kg/hr, 12.859 mls/hr Documented By: ASHLEY Furosemide 80 mg/ Sodium (Chloride) 58 mls @ 116 mls/hr IV NOW ONE Stop: 08/15/22 19:58 Last Infusion: 08/15/22 20:50 Dose: 0 mls/hr Documented By: Admin: 08/15/22 20:21 Dose: 116 mls/hr Documented By: KEZIA Furosemide 80 mg/ Sodium (Chloride) 58 mls @ 116 mls/hr IV Q12H JAY JAY Piperacillin Sod/Tazobactam (Sod 3.375 gm/ Sodium Chloride) 100 mls @ 25 mls/hr IV Q8H JAY JAY Last Infusion: 08/16/22 06:54 Dose: 0 mls/hr Documented By: Admin: 08/16/22 02:28 Dose: 25 mls/hr Documented By: NATHALIE Vancomycin HCl/Dextrose (Vancomycin) 2,000 mg in 400 mls @ 200 mls/hr IV Q24H JAY JAY Stop: 08/16/22 01:44 Last Admin: 08/16/22 03:28 Dose: Not Given Documented By: NATHALIE Vancomycin HCl (Vancomycin) 1,000 mg in 200 mls @ 150 mls/hr IV Q24H [facility] Furosemide 40 mg/ Sodium (Chloride) 54 mls @ 116 mls/hr IV Q12H [facility] Last Admin: 08/16/22 13:34 Dose: Not Given Documented By: MS Sodium Chloride (Normal Saline 0.9%) 500 mls @ 1,000 mls/hr IV BOLUS ONE Stop: 08/16/22 11:39 Last Admin: 08/16/22 11:20 Dose: 1,000 mls/hr Documented By: Insulin Glargine (Insulin Glargine 100 Unit/Ml 3ml Pen) 15 unit SUBCUT BID [facility] Last Admin: 08/16/22 13:34 Dose: Not Given Documented By: MS Insulin Glargine (Insulin Glargine 100 Unit/Ml 3ml Pen) 10 unit SUBCUT BID [facility] Last Admin: 08/16/22 21:18 Dose: 10 unit Documented By: NATHALIE Co-signed By: LYNN Insulin Human Lispro (Insulin Lispro 100 Unit/Ml 3ml Vial) 0 unit SUBCUT [facility]; Protocol Last Admin: 08/16/22 21:16 Dose: 3 unit Documented By: NATHALIE Co-signed By: LYNN Admin: 08/16/22 15:37 Dose: 3 unit Documented By: JUNAITO Co-signed By: STAN Admin: 08/16/22 12:02 Dose: Not Given Documented By: Admin: 08/16/22 08:53 Dose: Not Given Documented By: Insulin Human Regular (Insulin Regular 100 Unit/Ml 3 Ml Vial) 5 unit IV NOW ONE Stop: 08/15/22 19:58 Last Admin: 08/15/22 20:18 Dose: 5 unit Documented By: KEZIA Co-signed By: GC Methylprednisolone (Methylprednisolone 125 Mg/2 Ml Vial) 125 mg IV NOW ONE Stop: 08/15/22 16:42 Last Admin: 08/15/22 16:55 Dose: 125 mg Documented By: NR Ondansetron HCl (Ondansetron 4 Mg/2 Ml Inj) 4 mg IV NOW PRN PRN Reason: Nausea And Vomiting Last Admin: 08/15/22 17:37 Dose: 4 mg Documented By: SB Ondansetron HCl (Ondansetron 4 Mg Odt) 4 mg SL NOW PRN PRN Reason: Nausea And Vomiting Succinylcholine Chloride (Succinylcholine 200 Mg/10 Ml Vial) 150 mg IV NOW ONE Stop: 08/15/22 18:17 Last Admin: 08/15/22 18:38 Dose: 150 mg Documented By: ASHLEY Vancomycin HCl (Vancomycin Per Pharmacy) 1 request MISC NOW ONE Stop: 08/15/22 23:47 Last Admin: 08/16/22 09:24 Dose: Not Given Documented By: Vital Signs Vital signs: Vital Signs - 8 hr 08/15/22 16:15 08/15/22 16:48 08/15/22 16:25 Temperature 97.6 F Pulse Rate 77 Respiratory Rate 28 H Blood Pressure 113/57 L 120/72 Pulse Oximetry 73 L Oxygen Delivery Method Nasal Cannula Oxygen Flow Rate 3 Fraction of Inspired Oxygen 35 08/15/22 16:25 08/15/22 16:30 08/15/22 16:35 Temperature Pulse Rate 74 75 Respiratory Rate 22 27 H Blood Pressure 126/86 Pulse Oximetry 98 94 Oxygen Delivery Method Oxygen Flow Rate Fraction of Inspired Oxygen 08/15/22 16:35 08/15/22 16:40 08/15/22 16:45 Temperature Pulse Rate 75 74 75 Respiratory Rate 29 H 23 26 H Blood Pressure Pulse Oximetry 94 92 87 L Oxygen Delivery Method Oxygen Flow Rate Fraction of Inspired Oxygen 08/15/22 16:50 08/15/22 16:55 08/15/22 17:00 Temperature Pulse Rate 74 72 73 Respiratory Rate 23 24 24 Blood Pressure Pulse Oximetry 94 91 91 Oxygen Delivery Method Oxygen Flow Rate Fraction of Inspired Oxygen 08/15/22 17:05 08/15/22 17:10 08/15/22 17:14 Temperature 96.8 F L Pulse Rate 74 74 Respiratory Rate 22 26 H Blood Pressure 121/74 Pulse Oximetry 96 94 Oxygen Delivery Method Oxygen Flow Rate Fraction of Inspired Oxygen 08/15/22 17:14 08/15/22 17:15 08/15/22 17:15 Temperature 97.9 F 97.9 F Pulse Rate 73 72 Respiratory Rate 24 21 Blood Pressure 117/75 Pulse Oximetry 97 97 Oxygen Delivery Method Oxygen Flow Rate Fraction of Inspired Oxygen 08/15/22 17:20 08/15/22 17:25 08/15/22 17:30 Temperature 98.2 F 98.4 F Pulse Rate 72 72 Respiratory Rate 22 23 Blood Pressure 116/75 Pulse Oximetry 94 98 Oxygen Delivery Method Oxygen Flow Rate Fraction of Inspired Oxygen 08/15/22 17:30 08/15/22 17:35 08/15/22 17:40 Temperature 98.6 F 98.6 F 98.8 F Pulse Rate 72 72 73 Respiratory Rate 25 H 24 23 Blood Pressure Pulse Oximetry 96 97 96 Oxygen Delivery Method Oxygen Flow Rate Fraction of Inspired Oxygen 08/15/22 17:45 08/15/22 17:45 08/15/22 17:47 Temperature 98.8 F Pulse Rate 73 Respiratory Rate 21 Blood Pressure 116/74 Pulse Oximetry 93 Oxygen Delivery Method BiPAP Oxygen Flow Rate Fraction of Inspired Oxygen 40 08/15/22 18:40 08/15/22 18:41 08/15/22 18:41 Temperature Pulse Rate 83 85 Respiratory Rate 25 H 21 Blood Pressure 154/70 H Pulse Oximetry 90 L 92 Oxygen Delivery Method Oxygen Flow Rate Fraction of Inspired Oxygen 08/15/22 18:42 08/15/22 18:43 08/15/22 18:43 Temperature Pulse Rate 82 75 Respiratory Rate 13 13 Blood Pressure 166/81 H Pulse Oximetry 100 99 Oxygen Delivery Method Oxygen Flow Rate Fraction of Inspired Oxygen 08/15/22 18:44 08/15/22 18:45 08/15/22 18:45 Temperature Pulse Rate 66 75 Respiratory Rate 10 L 10 L Blood Pressure 137/72 Pulse Oximetry 100 100 Oxygen Delivery Method Ambu Bag Oxygen Flow Rate 15 Fraction of Inspired Oxygen 08/15/22 18:46 08/15/22 18:48 08/15/22 18:48 Temperature Pulse Rate 65 63 Respiratory Rate 20 18 Blood Pressure 148/76 H Pulse Oximetry 100 100 Oxygen Delivery Method Mechanical Ventilation Oxygen Flow Rate Fraction of Inspired Oxygen 08/15/22 18:50 08/15/22 18:50 08/15/22 18:52 Temperature Pulse Rate 74 71 Respiratory Rate 18 22 Blood Pressure 146/93 H Pulse Oximetry 100 92 Oxygen Delivery Method Oxygen Flow Rate Fraction of Inspired Oxygen 08/15/22 18:54 08/15/22 18:56 08/15/22 18:57 Temperature Pulse Rate 76 77 77 Respiratory Rate 25 H 31 H 28 H Blood Pressure Pulse Oximetry 100 100 100 Oxygen Delivery Method Mechanical Ventilation Oxygen Flow Rate Fraction of Inspired Oxygen 08/15/22 18:57 08/15/22 18:58 08/15/22 19:00 Temperature Pulse Rate 74 Respiratory Rate 18 Blood Pressure 134/80 127/75 Pulse Oximetry 100 Oxygen Delivery Method Oxygen Flow Rate Fraction of Inspired Oxygen 08/15/22 19:00 08/15/22 19:02 08/15/22 19:02 Temperature 98.6 F 98.6 F Pulse Rate 68 65 Respiratory Rate 18 18 Blood Pressure 114/72 Pulse Oximetry 100 100 Oxygen Delivery Method Oxygen Flow Rate Fraction of Inspired Oxygen 08/15/22 19:03 08/15/22 19:03 08/15/22 19:04 Temperature 98.6 F 98.6 F Pulse Rate 64 64 Respiratory Rate 18 18 Blood Pressure 110/71 Pulse Oximetry 100 100 Oxygen Delivery Method Oxygen Flow Rate Fraction of Inspired Oxygen 08/15/22 19:05 08/15/22 19:05 08/15/22 19:06 Temperature 98.6 F 98.6 F Pulse Rate 63 62 Respiratory Rate 18 18 Blood Pressure 104/68 Pulse Oximetry 100 100 Oxygen Delivery Method Oxygen Flow Rate Fraction of Inspired Oxygen 08/15/22 19:07 08/15/22 19:07 08/15/22 19:08 Temperature 98.6 F 98.6 F Pulse Rate 61 61 Respiratory Rate 18 18 Blood Pressure 101/64 Pulse Oximetry 100 99 Oxygen Delivery Method Oxygen Flow Rate Fraction of Inspired Oxygen 08/15/22 19:10 08/15/22 19:10 08/15/22 19:12 Temperature 98.6 F 98.6 F Pulse Rate 60 59 L Respiratory Rate 18 19 Blood Pressure 99/60 Pulse Oximetry 99 99 Oxygen Delivery Method Oxygen Flow Rate Fraction of Inspired Oxygen 08/15/22 19:13 08/15/22 19:13 08/15/22 19:14 Temperature 98.6 F 98.6 F Pulse Rate 59 L 59 L Respiratory Rate 18 18 Blood Pressure 97/56 L Pulse Oximetry 99 99 Oxygen Delivery Method Oxygen Flow Rate Fraction of Inspired Oxygen 08/15/22 19:15 08/15/22 19:15 08/15/22 19:16 Temperature 98.6 F 98.6 F Pulse Rate 58 L 58 L Respiratory Rate 18 18 Blood Pressure 94/54 L Pulse Oximetry 99 99 Oxygen Delivery Method Oxygen Flow Rate Fraction of Inspired Oxygen 08/15/22 19:17 08/15/22 19:17 08/15/22 19:18 Temperature 98.6 F 98.6 F Pulse Rate 58 L 58 L Respiratory Rate 18 18 Blood Pressure 95/57 L Pulse Oximetry 99 99 Oxygen Delivery Method Mechanical Ventilation Oxygen Flow Rate Fraction of Inspired Oxygen 08/15/22 19:20 08/15/22 19:20 08/15/22 19:22 Temperature 98.6 F Pulse Rate 57 L Respiratory Rate 18 Blood Pressure 94/55 L 94/57 L Pulse Oximetry 99 Oxygen Delivery Method Oxygen Flow Rate Fraction of Inspired Oxygen 08/15/22 19:22 08/15/22 19:24 08/15/22 18:41 Temperature 98.6 F 98.4 F Pulse Rate 57 L 57 L 64 Respiratory Rate 18 18 Blood Pressure Pulse Oximetry 99 99 Oxygen Delivery Method Mechanical Ventilation Oxygen Flow Rate Fraction of Inspired Oxygen MDM - SOB/Dyspnea Lab Data 08/16/22 04:10 08/16/22 04:10 Labs: Lab Results 08/15/22 08/15/22 08/15/22 Range/Units 16:32 16:35 16:35 WBC 8.1 (4.5-11.0) X10^3/uL RBC 3.40 L (4.0-5.2) X10^6/uL Hgb 11.2 L (12.0-16.0) g/dL Hct 35.4 L (36-46) % MCV 104.1 H (80-100) fL MCH 32.8 (26-34) PG MCHC 31.5 (30-36) % RDW 16.4 H (11.6-14.8) % Plt Count 227 (150-400) X10^3/uL Neut % (Auto) 72.2 (50-75) % Lymph % (Auto) 16.0 L (25-40) % [place] % (Auto) 7.6 (3-14) % Eos % (Auto) 3.1 (2-4) % Baso % (Auto) 1.1 (0-2) % Neut # (Auto) 5800 (3770-1039) /uL Lymph # (Auto) 1300 (5399-4792) /uL [place] # (Auto) 600 (0-900) /uL Eos # (Auto) 200 (0-450) /uL Baso # (Auto) 100 (0-100) /uL PT 12.7 (10.1-12.7) SECONDS INR 1.1 (0.9-1.3) APTT 31 (26-36) SECONDS ABG pH 7.25 L* (7.35-7.45) ABG pCO2 77.9 H* (35-45) mmHg ABG pO2 68 L (80-100) mmHg ABG HCO3 34 H (23-27) mmol/L ABG Total CO2 36 H (23-27) mmol/L ABG O2 Saturation 89 L (95-100) % ABG Base Excess 7.0 H (-2-3) mmol/L FiO2 28 Sodium (137-145) mmol/L Potassium (3.4-5.1) mmol/L Chloride (98-107) mmol/L Carbon Dioxide (22-32) mmol/L BUN (7-17) mg/dL Creatinine (0.52-1.04) mg/dL Estimated GFR (>60) mL/min BUN/Creatinine Ratio (6-22) Glucose (80-110) mg/dL Lactate (0.7-2.1) mmol/L Calcium (8.4-10.2) mg/dL Total Bilirubin (0.2-1.3) mg/dL AST (14-36) IU/L ALT (<35) IU/L Alkaline Phosphatase (38-126) U/L Total Creatine Kinase (30-135) U/L CK-MB (CK-2) CK-MB (CK-2) Rel Index Troponin I (0.01-0.034) ng/mL NT-Pro-B Natriuret Pep (<125) pg/mL Total Protein (6.3-8.2) g/dL Albumin (3.5-5.0) g/dL Globulin (1.7-4.1) g/dL Albumin/Globulin Ratio (1.0-2.8) Lipase (23-300) U/L Procalcitonin (<0.5) ng/mL Urine Color Urine Appearance Urine pH (4.5-8.0) Ur Specific [place] (1.000-1.035) Urine Protein (Negative) Urine Glucose (UA) (Negative) g/dL Urine Ketones (NEGATIVE) Urine Occult Blood (Negative) Urine Nitrate (Negative) Urine Bilirubin (NEGATIVE) Urine Urobilinogen (0.2) E.U./dL Ur Leukocyte Esterase (NEGATIVE) Urine RBC (0-5/HPF) Urine WBC (0-5/HPF) Triple Phos Crystals Urine Bacteria (None) Ur Culture Indicated? Chlamy pneumoniae PCR (Not Detect) Adenovirus (PCR) (Not Detect) B. pertussis DNA (PCR) (Not Detecte) B.parapertussis DNA PCR (Not Detecte) Coronavirus OC43 (PCR) (Not Detect) Coronavirus HKU1 (PCR) (Not Detect) Coronavirus 229E (PCR) (Not Detect) SARS-CoV-2 (PCR) (Not Detecte) Coronavirus NL63 (PCR) (Not Detect) Human Metapneumovir PCR (Not Detect) Influenza Type A (PCR) (Not Detect) Influenza Type B (PCR) (Not Detect) M. pneumoniae (PCR) (Not Detect) Parainfluenza 1 (PCR) (Not Detect) Parainfluenza 2 (PCR) (Not Detect) Parainfluenza 3 (PCR) (Not Detect) Parainfluenza 4 (PCR) (Not Detect) RSV (PCR) (Not Detect) Entero/Rhino (PCR) (Not Detect) 08/15/22 08/15/22 08/15/22 Range/Units 16:35 16:35 17:11 WBC (4.5-11.0) X10^3/uL RBC (4.0-5.2) X10^6/uL Hgb (12.0-16.0) g/dL Hct (36-46) % MCV (80-100) fL MCH (26-34) PG MCHC (30-36) % RDW (11.6-14.8) % Plt Count (150-400) X10^3/uL Neut % (Auto) (50-75) % Lymph % (Auto) (25-40) % [place] % (Auto) (3-14) % Eos % (Auto) (2-4) % Baso % (Auto) (0-2) % Neut # (Auto) (3455-8708) /uL Lymph # (Auto) (7991-7345) /uL [place] # (Auto) (0-900) /uL Eos # (Auto) (0-450) /uL Baso # (Auto) (0-100) /uL PT (10.1-12.7) SECONDS INR (0.9-1.3) APTT (26-36) SECONDS ABG pH (7.35-7.45) ABG pCO2 (35-45) mmHg ABG pO2 (80-100) mmHg ABG HCO3 (23-27) mmol/L ABG Total CO2 (23-27) mmol/L ABG O2 Saturation (95-100) % ABG Base Excess (-2-3) mmol/L FiO2 Sodium 141 (137-145) mmol/L Potassium 5.7 H (3.4-5.1) mmol/L Chloride 103 (98-107) mmol/L Carbon Dioxide 34 H (22-32) mmol/L BUN 43 H (7-17) mg/dL Creatinine 2.37 H (0.52-1.04) mg/dL Estimated GFR 23 L (>60) mL/min BUN/Creatinine Ratio 18.1 (6-22) Glucose 86 (80-110) mg/dL Lactate 0.6 L (0.7-2.1) mmol/L Calcium 9.6 (8.4-10.2) mg/dL Total Bilirubin 0.4 (0.2-1.3) mg/dL AST 46 H (14-36) IU/L ALT 27 (<35) IU/L Alkaline Phosphatase 42 (38-126) U/L Total Creatine Kinase 581 H (30-135) U/L CK-MB (CK-2) TNP CK-MB (CK-2) Rel Index TNP Troponin I 0.028 (0.01-0.034) ng/mL NT-Pro-B Natriuret Pep 6960 H (<125) pg/mL Total Protein 7.3 (6.3-8.2) g/dL Albumin 4.0 (3.5-5.0) g/dL Globulin 3.3 (1.7-4.1) g/dL Albumin/Globulin Ratio 1.2 (1.0-2.8) Lipase 34 (23-300) U/L Procalcitonin 0.11 (<0.5) ng/mL Urine Color Yellow Urine Appearance Cloudy Urine pH 8.0 (4.5-8.0) Ur Specific [place] 1.015 (1.000-1.035) Urine Protein 2+ H (Negative) Urine Glucose (UA) Negative (Negative) g/dL Urine Ketones Negative (NEGATIVE) Urine Occult Blood Trace-intact (Negative) Urine Nitrate Negative (Negative) Urine Bilirubin Negative (NEGATIVE) Urine Urobilinogen 0.2 (0.2) E.U./dL Ur Leukocyte Esterase 1+ H (NEGATIVE) Urine RBC None seen (0-5/HPF) Urine WBC 5-10/hpf H (0-5/HPF) Triple Phos Crystals Occasional Urine Bacteria Many (>30) H (None) Ur Culture Indicated? Specimen cultured Chlamy pneumoniae PCR (Not Detect) Adenovirus (PCR) (Not Detect) B. pertussis DNA (PCR) (Not Detecte) B.parapertussis DNA PCR (Not Detecte) Coronavirus OC43 (PCR) (Not Detect) Coronavirus HKU1 (PCR) (Not Detect) Coronavirus 229E (PCR) (Not Detect) SARS-CoV-2 (PCR) (Not Detecte) Coronavirus NL63 (PCR) (Not Detect) Human Metapneumovir PCR (Not Detect) Influenza Type A (PCR) (Not Detect) Influenza Type B (PCR) (Not Detect) M. pneumoniae (PCR) (Not Detect) Parainfluenza 1 (PCR) (Not Detect) Parainfluenza 2 (PCR) (Not Detect) Parainfluenza 3 (PCR) (Not Detect) Parainfluenza 4 (PCR) (Not Detect) RSV (PCR) (Not Detect) Entero/Rhino (PCR) (Not Detect) 08/15/22 08/15/22 08/15/22 Range/Units 17:16 18:05 19:16 WBC (4.5-11.0) X10^3/uL RBC (4.0-5.2) X10^6/uL Hgb (12.0-16.0) g/dL Hct (36-46) % MCV (80-100) fL MCH (26-34) PG MCHC (30-36) % RDW (11.6-14.8) % Plt Count (150-400) X10^3/uL Neut % (Auto) (50-75) % Lymph % (Auto) (25-40) % [place] % (Auto) (3-14) % Eos % (Auto) (2-4) % Baso % (Auto) (0-2) % Neut # (Auto) (5235-8173) /uL Lymph # (Auto) (1981-0744) /uL [place] # (Auto) (0-900) /uL Eos # (Auto) (0-450) /uL Baso # (Auto) (0-100) /uL PT (10.1-12.7) SECONDS INR (0.9-1.3) APTT (26-36) SECONDS ABG pH 7.18 L* (7.35-7.45) ABG pCO2 89.1 H* (35-45) mmHg ABG pO2 86 (80-100) mmHg ABG HCO3 34 H (23-27) mmol/L ABG Total CO2 36 H (23-27) mmol/L ABG O2 Saturation 93 L (95-100) % ABG Base Excess 5.0 H (-2-3) mmol/L FiO2 40 Sodium 141 (137-145) mmol/L Potassium 6.4 H* (3.4-5.1) mmol/L Chloride 103 (98-107) mmol/L Carbon Dioxide 37 H (22-32) mmol/L BUN 44 H (7-17) mg/dL Creatinine 2.18 H (0.52-1.04) mg/dL Estimated GFR 25 L (>60) mL/min BUN/Creatinine Ratio 20.2 (6-22) Glucose 80 (80-110) mg/dL Lactate (0.7-2.1) mmol/L Calcium 9.1 (8.4-10.2) mg/dL Total Bilirubin (0.2-1.3) mg/dL AST (14-36) IU/L ALT (<35) IU/L Alkaline Phosphatase (38-126) U/L Total Creatine Kinase (30-135) U/L CK-MB (CK-2) CK-MB (CK-2) Rel Index Troponin I 0.027 (0.01-0.034) ng/mL NT-Pro-B Natriuret Pep (<125) pg/mL Total Protein (6.3-8.2) g/dL Albumin (3.5-5.0) g/dL Globulin (1.7-4.1) g/dL Albumin/Globulin Ratio (1.0-2.8) Lipase (23-300) U/L Procalcitonin (<0.5) ng/mL Urine Color Urine Appearance Urine pH (4.5-8.0) Ur Specific [place] (1.000-1.035) Urine Protein (Negative) Urine Glucose (UA) (Negative) g/dL Urine Ketones (NEGATIVE) Urine Occult Blood (Negative) Urine Nitrate (Negative) Urine Bilirubin (NEGATIVE) Urine Urobilinogen (0.2) E.U./dL Ur Leukocyte Esterase (NEGATIVE) Urine RBC (0-5/HPF) Urine WBC (0-5/HPF) Triple Phos Crystals Urine Bacteria (None) Ur Culture Indicated? Chlamy pneumoniae PCR Not detected (Not Detect) Adenovirus (PCR) Not detected (Not Detect) B. pertussis DNA (PCR) Not detected (Not Detecte) B.parapertussis DNA PCR Not detected (Not Detecte) Coronavirus OC43 (PCR) Not detected (Not Detect) Coronavirus HKU1 (PCR) Not detected (Not Detect) Coronavirus 229E (PCR) Not detected (Not Detect) SARS-CoV-2 (PCR) Not detected (Not Detecte) Coronavirus NL63 (PCR) Not detected (Not Detect) Human Metapneumovir PCR Not detected (Not Detect) Influenza Type A (PCR) Not detected (Not Detect) Influenza Type B (PCR) Not detected (Not Detect) M. pneumoniae (PCR) Not detected (Not Detect) Parainfluenza 1 (PCR) Not detected (Not Detect) Parainfluenza 2 (PCR) Not detected (Not Detect) Parainfluenza 3 (PCR) Not detected (Not Detect) Parainfluenza 4 (PCR) Not detected (Not Detect) RSV (PCR) Not detected (Not Detect) Entero/Rhino (PCR) Not detected (Not Detect) 08/15/22 Range/Units 20:10 WBC (4.5-11.0) X10^3/uL RBC (4.0-5.2) X10^6/uL Hgb (12.0-16.0) g/dL Hct (36-46) % MCV (80-100) fL MCH (26-34) PG MCHC (30-36) % RDW (11.6-14.8) % Plt Count (150-400) X10^3/uL Neut % (Auto) (50-75) % Lymph % (Auto) (25-40) % [place] % (Auto) (3-14) % Eos % (Auto) (2-4) % Baso % (Auto) (0-2) % Neut # (Auto) (1649-4215) /uL Lymph # (Auto) (2074-7936) /uL [place] # (Auto) (0-900) /uL Eos # (Auto) (0-450) /uL Baso # (Auto) (0-100) /uL PT (10.1-12.7) SECONDS INR (0.9-1.3) APTT (26-36) SECONDS ABG pH 7.27 L* (7.35-7.45) ABG pCO2 73.2 H* (35-45) mmHg ABG pO2 84 (80-100) mmHg ABG HCO3 34 H (23-27) mmol/L ABG Total CO2 36 H (23-27) mmol/L ABG O2 Saturation 94 L (95-100) % ABG Base Excess 7.0 H (-2-3) mmol/L FiO2 50 Sodium (137-145) mmol/L Potassium (3.4-5.1) mmol/L Chloride (98-107) mmol/L Carbon Dioxide (22-32) mmol/L BUN (7-17) mg/dL Creatinine (0.52-1.04) mg/dL Estimated GFR (>60) mL/min BUN/Creatinine Ratio (6-22) Glucose (80-110) mg/dL Lactate (0.7-2.1) mmol/L Calcium (8.4-10.2) mg/dL Total Bilirubin (0.2-1.3) mg/dL AST (14-36) IU/L ALT (<35) IU/L Alkaline Phosphatase (38-126) U/L Total Creatine Kinase (30-135) U/L CK-MB (CK-2) CK-MB (CK-2) Rel Index Troponin I (0.01-0.034) ng/mL NT-Pro-B Natriuret Pep (<125) pg/mL Total Protein (6.3-8.2) g/dL Albumin (3.5-5.0) g/dL Globulin (1.7-4.1) g/dL Albumin/Globulin Ratio (1.0-2.8) Lipase (23-300) U/L Procalcitonin (<0.5) ng/mL Urine Color Urine Appearance Urine pH (4.5-8.0) Ur Specific [place] (1.000-1.035) Urine Protein (Negative) Urine Glucose (UA) (Negative) g/dL Urine Ketones (NEGATIVE) Urine Occult Blood (Negative) Urine Nitrate (Negative) Urine Bilirubin (NEGATIVE) Urine Urobilinogen (0.2) E.U./dL Ur Leukocyte Esterase (NEGATIVE) Urine RBC (0-5/HPF) Urine WBC (0-5/HPF) Triple Phos Crystals Urine Bacteria (None) Ur Culture Indicated? Chlamy pneumoniae PCR (Not Detect) Adenovirus (PCR) (Not Detect) B. pertussis DNA (PCR) (Not Detecte) B.parapertussis DNA PCR (Not Detecte) Coronavirus OC43 (PCR) (Not Detect) Coronavirus HKU1 (PCR) (Not Detect) Coronavirus 229E (PCR) (Not Detect) SARS-CoV-2 (PCR) (Not Detecte) Coronavirus NL63 (PCR) (Not Detect) Human Metapneumovir PCR (Not Detect) Influenza Type A (PCR) (Not Detect) Influenza Type B (PCR) (Not Detect) M. pneumoniae (PCR) (Not Detect) Parainfluenza 1 (PCR) (Not Detect) Parainfluenza 2 (PCR) (Not Detect) Parainfluenza 3 (PCR) (Not Detect) Parainfluenza 4 (PCR) (Not Detect) RSV (PCR) (Not Detect) Entero/Rhino (PCR) (Not Detect) Point of Care Testing Glucose POC 136 ABG Data Interpretation: Patient is 7.249, pCO2 of 77 PO2 is 68, bicarb of 34 on 2-3 L nasal cannula. Patient appears to have hypercapnic respiratory failure, patient has had priors where she is hospitalized at 78 but appears to typically be in the 30s to 40s for her CO2, bicarb is also elevated. Respiratory acidosis chronic with compensation with metabolic acidosis. ECG Data Attestation: I personally reviewed and interpreted this ECG as follows: Prior ECG tracings: available for review Interpretation: Sinus rhythm rate of 73 TN 188 QRS of 122 and QTC of 478. No acute ST elevation appreciated, left axis deviation. Patient has prior from 07/28/2022 with no acute changes. MDM Narrative Medical decision making narrative: This is a 61-year-old female with what appears to be acute on chronic respiratory failure with hypercapnia. Patient also appears to have a component of CHF her pH is 7.249 with a pCO2 of 77 she required admission and intubation in May of 2022, had increasing lethargy fail her 1st breathing trial and then was extubated on the 28 of May using BiPAP intermittently. Patient labs show a stable anemia, no elevation in white count platelets are appropriate. Negative coags, potassium is 5.7, without hemolysis noted. Patient has had a b ump in her creatinine was 2.18 on 07/28 and 2.02 on 06/28 she is 2.37 today with BUN of 43, troponin is negative but BNP is 6900. Pro CT is negative. Patient case discussed with Dr. Gillespie, plan for intubation is repeat ABG shows a pH of 7.184 with a rising pCO2 patient appears to be failing BiPAP and required intubation. She does awaken to verbal stimuli, discussed that I feel she needs intubation and while reluctant is willing. Patient was intubated with 7.5 ET tube at 21 at the teeth. Patient's end-tidal CO2 was 70 initially. Patient is in acute hypercapnic respiratory failure appears to be failing intubation. Patient appears to be maintaining O2, end-tidal CO2 is initial 70 came down to 50. Chest x-ray was performed after NG tube was dropped. Patient case was discussed with Dr. Gillespie before he asked for CT KUB as well as a repeat troponin will likely accept. Reviewed does appear she has a UTI she is had a dose of Rocephin, Solu-Medrol does not appear to be or tight and has not appear to have increased O2 requirements but is more hypercapnic Critical Care Time Critical Care Time Critical Care Time: Yes Total Critical Care Time: 55 Attestation: The high probability of a clinically significant, sudden or life threatening deterioration of the [cardiac, pullm] system(s) required my full and direct attention, intervention and personal management. The aggregate critical care time was [55] minutes. This time is in addition to time spent performing reported procedures but includes the following: [x] Data Review and interpretation [x] Patient assessment and monitoring of vital signs [x] Documentation [x] Medication orders and management Discharge Plan Departure Patient Disposition: Admitted As Inpatient Clinical Impression: Acute hypercapnic respiratory failure, Acute kidney injury superimposed on CKD, Acute on chronic systolic CHF (congestive heart failure) Admit Date/Time: 08/15/22 21:58 Admit Provider: Johnathan Ramirez
[2022-08-15 16:46] LABS: Add Manual Diff / Slide Review NO; Basophils Absolute Auto 100 /uL (0-100); Basophils Percent Auto 1.1 % (0-2); Eosinophils Absolute Auto 200 /uL (0-450); Eosinophils Percent Auto 3.1 % (2-4); Hematocrit 35.4 % (36-46); Hemoglobin 11.2 g/dL (12.0-16.0); Lymphocytes Absolute Auto 1300 /uL (1100-4500); Mean Corpuscular HGB Conc 31.5 % (30-36); Mean Corpuscular Hemoglobin 32.8 PG (26-34); Mean Corpuscular Volume 104.1 fL (80-100); Monocytes Absolute Auto 600 /uL (0-900); Monocytes Percent Auto 7.6 % (3-14); Neutrophils Absolute Auto 5800 /uL (1500-7000); Neutrophils Percent Auto 72.2 % (50-75); Platelet Count 227 X10^3/uL (150-400); Red Cell Distribution Width 16.4 % (11.6-14.8); White Blood Cell Count 8.1 X10^3/uL (4.5-11.0)
--- NOTE | 2022-08-15 16:49 | PC.NURSE ---
Pt being placed on bipap by RT.
[2022-08-15 16:51] LABS: INR 1.1 (0.9-1.3); Prothrombin Time 12.7 SECONDS (10.1-12.7)
[2022-08-15 16:53] LABS: PTT Partial Thromboplastin Tim 31 SECONDS (26-36)
[2022-08-15] MEDS: methylPREDNISolone 125 MG/2 ML VIAL IV (16:55)
[2022-08-15 16:57] LABS: Lactate (Lactic Acid) 0.6 mmol/L (0.7-2.1)
[2022-08-15 16:58] LABS: Fractionated Inspired Oxygen 28; HCO3 ABG 34 mmol/L (23-27); Oxygen Saturation ABG 89 % (95-100); PCO2 ABG 77.9 mmHg (35-45); PO2 ABG 68 mmHg (80-100); TCO2 ABG 36 mmol/L (23-27); pH ABG 7.25 (7.35-7.45)
[2022-08-15 16:58] LABS: Alanine Aminotransferase 27 IU/L (<35); Albumin Globulin Ratio 1.2 (1.0-2.8); Alkaline Phosphatase 42 U/L (38-126); Aspartate Aminotransferase 46 IU/L (14-36); BUN Creatinine Ratio 18.1 (6-22); Bilirubin Total 0.4 mg/dL (0.2-1.3); Blood Urea Nitrogen 43 mg/dL (7-17); Calcium 9.6 mg/dL (8.4-10.2); Carbon Dioxide 34 mmol/L (22-32); Chloride 103 mmol/L (98-107); Creatine Kinase 581 U/L (30-135); Estimated Glomerular Filt Rate 23 mL/min (>60); Globulin 3.3 g/dL (1.7-4.1); Glucose 86 mg/dL (80-110); HEMOLYSIS < 15 (0-50); Lipase 34 U/L (23-300); Potassium 5.7 mmol/L (3.4-5.1); Sodium 141 mmol/L (137-145); Total Protein 7.3 g/dL (6.3-8.2)
[2022-08-15 17:10] LABS: NT-proBNP (BNP-Adult 18+) 6960 pg/mL (<125); Troponin I 0.028 ng/mL (0.01-0.034)
[2022-08-15 17:15] LABS: Procalcitonin 0.11 ng/mL (<0.5)
[2022-08-15 17:22] LABS: Appearance Urine UA CLOUDY; Bilirubin Urine UA NEGATIVE (NEGATIVE); Color Urine UA YELLOW; Glucose Urine UA NEGATIVE (Negative); Ketones Urine UA NEGATIVE (NEGATIVE); Leukocyte Esterase Urine UA 1+ (NEGATIVE); Nitrite Urine UA NEGATIVE (Negative); Occult Blood Urine UA TRACE-INTACT (Negative); Protein Urine UA 2+ (Negative); Specific Gravity Urine UA 1.015 (1.000-1.035); Urobilinogen Urine UA 0.2 E.U./dL (0.2)
[2022-08-15 17:29] LABS: Bacteria Urine Many (>30); Culture Indicated Urine Specimen Cultured; RBC Urine None Seen (0-5/HPF); Triple Phosphate Crystal Urine Occasional; WBC Urine 5-10/HPF (0-5/HPF)
[2022-08-15] MEDS: cefTRIAXone 2,000 MG in SODIUM CHLORIDE 0.9% 100 ML 200 MG IV (17:36)
[2022-08-15] MEDS: ONDANSETRON 4 MG/2 ML INJ IV (17:37)
[2022-08-15] MEDS: SODIUM CHLORIDE 0.9% 500 ML 1000 ML IV (17:37)
[2022-08-15] MEDS: FUROSEMIDE 60 MG in SODIUM CHLORIDE 0.9% 50 ML 112 MG IV (18:05)
[2022-08-15 18:16] LABS: Adenovirus Not Detected (Not Detect); Coronavirus 229E Not Detected (Not Detect); Coronavirus HKU1 Not Detected (Not Detect); Coronavirus NL 63 Not Detected (Not Detect); Coronavirus OC43 Not Detected (Not Detect); Human Metapneumovirus Not Detected (Not Detect); Human Rhinovirus/Enterovirus Not Detected (Not Detect); Influenza A Not Detected (Not Detect); Influenza B Not Detected (Not Detect); Parainfluenza Virus 1 Not Detected (Not Detect); Parainfluenza Virus 2 Not Detected (Not Detect); Parainfluenza Virus 3 Not Detected (Not Detect); Parainfluenza Virus 4 Not Detected (Not Detect); Respiratory Syncytial Virus Not Detected (Not Detect); SARS- CoV-2 Not Detected (Not Detecte)
[2022-08-15 18:17] LABS: B. parapertussis Not Detected (Not Detecte); Bordetella pertussis Not Detected (Not Detecte); Chlamydophila pneumoniae Not Detected (Not Detect); Mycoplasma pneumoniae Not Detected (Not Detect)
--- NOTE | 2022-08-15 18:17 | DI.RAD.S_ITS ---
PROCEDURE: XR CHEST 1V INDICATIONS: post intubation, wait for call TECHNIQUE: One view of the chest was acquired. COMPARISON: [facility], , XR CHEST 1V, 08/15/2022, 16:26. FINDINGS: Surgical changes and devices: Endotracheal tube tip is about 1.7 cm from the ron. Nasogastric tube is terminating below the level of the film. Lungs and pleura: There are bibasilar opacities obscuring visualization of the heart size. Mediastinum: Mediastinal contour is unchanged. Heart is diffusely enlarged. Bones and chest wall: No suspicious bony lesions. Overlying soft tissues appear unremarkable. IMPRESSION: 1. Adequate placement endotracheal and nasogastric tubes. 2. Unchanged heart and lungs. Dictated by: Britney Atkins M.D. on 08/15/2022 at 18:47 Approved by: Britney Atkins M.D. on 08/15/2022 at 18:50
[2022-08-15] MEDS: ETOMIDATE 2 MG/ML 10 ML VIAL 10 MG IV (18:36)
[2022-08-15] MEDS: SUCCINYLCHOLINE 200 MG/10 ML VIAL 150 MG IV (18:38)
--- NOTE | 2022-08-15 18:50 | DI.CT.S_ITS ---
PROCEDURE: CT KIDNEY URETER BLADDER (KUB) INDICATIONS: acute on chronic renal failure TECHNIQUE: Axial sections were acquired from the lung bases to the pubic symphysis. Coronal and sagittal reformats were performed. For radiation dose reduction, the following was used: automated exposure control, adjustment of mA and/or kV according to patient size. COMPARISON: [facility], CT, CT ABDOMEN PELVIS W CON, 05/25/2022, 14:22. FINDINGS: Image quality: Diagnostic. Lung bases: Mild left basilar atelectasis. Trace right pleural effusion with compressive atelectasis and consolidation over the medial right lung base. Heart: Cardiomegaly. Coronary atherosclerotic vascular calcifications are noted. URINARY: Right Kidney/ureter: Right kidney is normal in size. No hydronephrosis. Minimal perinephric stranding. Right ureter is normal in course and caliber. No renal stone or ureteral stone seen on the right. Left Kidney/ureter: Left kidney is normal in size. No hydronephrosis. Redemonstration of partially exophytic left renal hypodensity likely representing a cyst. Minimal perinephric stranding. Left ureter is normal in course and caliber. No left renal stone or left ureteral stone. Bladder: Bladder is decompressed by Babcock catheter. Small locule of air in the anti dependent portions of the decompressed bladder likely from placement of Babcock catheter. No evidence to suggest urinary bladder wall thickening or perivesicular inflammatory changes.. ABDOMEN: Liver: Unremarkable. Gallbladder: Unremarkable. Biliary ducts: Unremarkable. Pancreas: Suggestion of mild peripancreatic stranding.. Spleen: No splenomegaly. Adrenal Glands: Unremarkable. Stomach and Bowel: Stomach is decompressed by a nasogastric tube. Visualized small bowel appear unremarkable in noncontrast appearance. Visualized colon is unremarkable. The appendix is not definitively visualized but no secondary findings for acute inflammation in the right lower quadrant. Peritoneum: No abnormal intraperitoneal fluid. No free air. Ventral Wall: No hernia. Abdominal Nodes: No enlarged retroperitoneal or mesenteric lymph nodes. Vessels: Aorta and inferior vena cava are normal in size. Scattered atherosclerotic calcifications of the abdominal aorta and iliac vessels. PELVIS: Pelvic Organs: Unremarkable. Pelvic Nodes: Unremarkable. Miscellaneous: No inguinal hernias are seen. Moderate diffuse anasarca. No focal fluid collection seen. Bones: No acute vertebral body compression fractures. Multilevel spondylitic changes throughout the imaged spine. No suspicious osseous lesions. IMPRESSION: 1. No evidence for obstructive uropathy or urolithiasis. 2. Minimal stranding within the central aspect of the anterior pararenal space as noted by minimal perinephric stranding and peripancreatic stranding. Findings may be related to infectious uropathy versus mild pancreatitis. Recommend clinical and laboratory correlation. This may be in part due to imaging technique and patient scanning characteristics. 3. Cardiomegaly. 4. Trace right pleural effusion with associated compressive atelectasis and medial right lung base consolidation. 5. Diffuse anasarca. 6. Atherosclerosis. Other chronic findings as above. Dictated by: Jignesh Pool M.D. on 08/15/2022 at 20:44 Approved by: Jignesh Pool M.D. on 08/15/2022 at 21:03
[2022-08-15] MEDS: fentaNYL 100 MCG/2 ML INJ 50 MCG IV (18:54)
[2022-08-15] MEDS: WATER IV (18:55)
[2022-08-15] MEDS: fentaNYL 1,000 MCG in DEXTROSE 5% IN WATER 230 ML 22.504 MCG IV (18:55)
[2022-08-15] MEDS: DEXTROSE 5% IV (18:55)
[2022-08-15] MEDS: MIDAZOLAM IV (18:55)
[2022-08-15 19:23] LABS: Fractionated Inspired Oxygen 40; HCO3 ABG 34 mmol/L (23-27); Oxygen Saturation ABG 93 % (95-100); PCO2 ABG 89.1 mmHg (35-45); PO2 ABG 86 mmHg (80-100); TCO2 ABG 36 mmol/L (23-27); pH ABG 7.18 (7.35-7.45)
[2022-08-15 19:45] LABS: BUN Creatinine Ratio 20.2 (6-22); Blood Urea Nitrogen 44 mg/dL (7-17); Calcium 9.1 mg/dL (8.4-10.2); Carbon Dioxide 37 mmol/L (22-32); Chloride 103 mmol/L (98-107); Estimated Glomerular Filt Rate 25 mL/min (>60); Glucose 80 mg/dL (80-110); HEMOLYSIS 30 (0-50); Sodium 141 mmol/L (137-145)
[2022-08-15 19:53] LABS: Potassium 6.4 mmol/L (3.4-5.1)
--- NOTE | 2022-08-15 19:54 | PC.NURSE ---
For planned intubation. Time out at 1836. RT Marshall, MAI Estrada, this RN, and provider Jb present. Medications given per direction of provider in accordance with MAR. Oral adjunct airway with breaths given by BVM needed briefly. Intubated at 184. 7.5 tube and 21 at the teeth. OG at 1846. Confirmation given by provider of ET and OG placement after x-ray. OG hooked up to low-medium, intermittent suction. Pt medicated per MAR for sedation.
[2022-08-15 19:57] LABS: Troponin I 0.027 ng/mL (0.01-0.034)
[2022-08-15] MEDS: DEXTROSE 50 % IN WATER 25 GM/50 ML SYRINGE IV (20:17)
[2022-08-15] MEDS: INSULIN REGULAR 100 UNIT/ML 3 ML VIAL IV (20:18)
[2022-08-15] MEDS: FUROSEMIDE 80 MG in SODIUM CHLORIDE 0.9% 50 ML 116 MG IV (20:21)
[2022-08-15 20:28] LABS: Fractionated Inspired Oxygen 50; HCO3 ABG 34 mmol/L (23-27); Oxygen Saturation ABG 94 % (95-100); PCO2 ABG 73.2 mmHg (35-45); PO2 ABG 84 mmHg (80-100); TCO2 ABG 36 mmol/L (23-27)
[2022-08-15 20:29] LABS: pH ABG 7.27 (7.35-7.45)
--- NOTE | 2022-08-15 22:09 | PM.HP.1 ---
History of Present Illness History of Present Illness Date Patient Seen: 08/15/22 Time Patient Seen: 21:30 Chief complaint: SOB Narrative: Ms. Jett is a 61W with PMH COPD on 2L O2, PONCE on cpap, CHFpEF, morbid obesity, DM on insulin, htn, hypothyroid who presents with shortness of breath. She has been feeling worse for the last couple weeks per the ED physician note. She has worsening lower extremity swelling. No cough, or fevers. No abdominal pain, nausea, vomiting. No additional current history is obtainable as she is intubated when I evaluate her. She did present in May, with similar presentation and was treated for pneumonia, copd flare, and chf exacerbation. In the ED workup was done, vitals notable for afebrile, heart rate 70s, respiratory rate 20s, blood pressure 110s/50s, sats 70s on 3L. She was placed on NRB, and then placed on BIPAP. She was noted to have pH 7.25, pco2 78. Repeat showed worsening acidosis with pH 7.18, pco2 89. She had poor mental status and was intubated. Labs reviewed by me and notable for WBC 8.1, hgb 11.2, plts 227. Na 141, k 5.7, BUN 43, creatinine 2.37. Lactate 0.6. BNP 6960. Trop 0.028->0.027. UA with wbcs, bacteria and leuk esterase. Respiratory panel negative. EKG with sinus rhythm, with no acute changes. Chest xray notable for interstitial and central vascular congestion. CT abdomen showed minimal perinephric and peripancdreatic stranding. She was noted by ED staff to possibly have strawberry food particles suctioned from ET tube. She was ordered for antibiotics, steroids, and lasix. She was sedated on fentanyl, versed. She was placed on vent settings tv 350, rr 18, peep 10, fio 2 50%. [facility] Medical History Chronic hypoxemic respiratory failure COPD (chronic obstructive pulmonary disease) DM2 (diabetes mellitus, type 2) HTN (hypertension) Obesity PONCE (obstructive sleep apnea) Systolic and diastolic CHF, chronic Thyroiditis Surgical History S/P hernia surgery Family History Mother No pertinent past medical history Father No pertinent past medical history Social History household members: other Smoking Status: Former smoker Meds Home Medications and Allergies Home Medications Medication Instructions Recorded Confirmed Type acetaminophen 325 mg tablet 650 mg PO TID 05/25/22 08/15/22 History (Tylenol) aspirin 81 mg tablet,delayed 81 mg PO DAILY 05/25/22 08/15/22 History release budesonide-formoterol HFA 160 2 puff inhalation Q4H PRN Wheezing 05/25/22 08/15/22 History mcg-4.5 mcg/actuation aerosol inhaler bupropion HCl 150 mg tablet,12 hr 150 mg PO BEDTIME 05/25/22 08/15/22 History sustained-release carvedilol 3.125 mg tablet 3.125 mg PO BID 05/25/22 08/15/22 History cyanocobalamin (vitamin B-12) 500 500 mcg PO DAILY 05/25/22 08/15/22 History mcg tablet fenofibrate 160 mg tablet 160 mg PO DAILY 05/25/22 08/15/22 History ferrous sulfate 325 mg (65 mg 325 mg PO DAILY 05/25/22 08/15/22 History iron) tablet fluoxetine 20 mg tablet 20 mg PO DAILY 05/25/22 08/15/22 History fluticasone propionate 50 2 spray intranasal DAILY 05/25/22 08/15/22 History mcg/actuation nasal spray,suspension gabapentin 300 mg capsule 300 mg PO BEDTIME 05/25/22 08/15/22 History insulin glargine 100 unit/mL (3 22 unit SUBCUT BID 05/25/22 05/25/22 History mL) subcutaneous pen insulin lispro 100 unit/mL 4 unit SUBCUT TIDWM 05/25/22 05/25/22 History subcutaneous solution (Humalog U-100 Insulin) lidocaine 5 % topical patch 1 patch topical DAILY 05/25/22 08/15/22 History loratadine 10 mg tablet 10 mg PO DAILY 05/25/22 08/15/22 History magnesium oxide 200 mg PO BID 05/25/22 08/15/22 History meclizine 25 mg tablet 25 mg PO Q8HR PRN Dizziness 05/25/22 08/15/22 History montelukast 10 mg tablet 10 mg PO DAILY 05/25/22 08/15/22 History nystatin 100,000 unit/gram topical 1 applic topical BID PRN Rash 05/25/22 05/25/22 History powder ondansetron 4 mg disintegrating 4 mg PO Q8H PRN Nausea 05/25/22 08/15/22 History tablet rosuvastatin 40 mg tablet 40 mg PO DAILY 05/25/22 08/15/22 History sennosides 8.6 mg tablet (senna) 17.2 mg PO BEDTIME 05/25/22 08/15/22 History tiotropium bromide 18 mcg capsule 1 cap inhalation DAILY 05/25/22 08/15/22 History with inhalation device (Spiriva with HandiHaler) trazodone 50 mg tablet 50 mg PO BEDTIME 05/25/22 08/15/22 History albuterol sulfate 90 mcg/actuation 4 puff inhalation Q4H PRN 08/15/22 08/15/22 History aerosol inhaler Shortness Of Breath Or Wheezing levothyroxine 175 mcg tablet 175 mcg PO DAILY 08/15/22 08/15/22 History potassium chloride 10 mEq 10 meq PO DAILY 08/15/22 08/15/22 History tablet,extended release torsemide 10 mg tablet 20 mg PO BID 08/15/22 History Allergies Allergy/AdvReac Type Severity Reaction Status Date / Time No Known Drug Allergies Allergy Verified 05/25/22 12:43 Review of Systems Review of Systems Narrative: 14 systems unable to be reviewed Exam Vital Signs (past 8 hours): - 08/15/22 16:15 08/15/22 16:48 08/15/22 16:25 Temperature 97.6 F Pulse Rate 77 Respiratory Rate 28 H Blood Pressure 113/57 L 120/72 Pulse Oximetry 73 L Oxygen Delivery Method Nasal Cannula Oxygen Flow Rate 3 Fraction of Inspired Oxygen 35 08/15/22 16:25 08/15/22 16:30 08/15/22 16:35 Temperature Pulse Rate 74 75 Respiratory Rate 22 27 H Blood Pressure 126/86 Pulse Oximetry 98 94 Oxygen Delivery Method Oxygen Flow Rate Fraction of Inspired Oxygen 08/15/22 16:35 08/15/22 16:40 08/15/22 16:45 Temperature Pulse Rate 75 74 75 Respiratory Rate 29 H 23 26 H Blood Pressure Pulse Oximetry 94 92 87 L Oxygen Delivery Method Oxygen Flow Rate Fraction of Inspired Oxygen 08/15/22 16:50 08/15/22 16:55 08/15/22 17:00 Temperature Pulse Rate 74 72 73 Respiratory Rate 23 24 24 Blood Pressure Pulse Oximetry 94 91 91 Oxygen Delivery Method Oxygen Flow Rate Fraction of Inspired Oxygen 08/15/22 17:05 08/15/22 17:10 08/15/22 17:14 Temperature 96.8 F L Pulse Rate 74 74 Respiratory Rate 22 26 H Blood Pressure 121/74 Pulse Oximetry 96 94 Oxygen Delivery Method Oxygen Flow Rate Fraction of Inspired Oxygen 08/15/22 17:14 08/15/22 17:15 08/15/22 17:15 Temperature 97.9 F 97.9 F Pulse Rate 73 72 Respiratory Rate 24 21 Blood Pressure 117/75 Pulse Oximetry 97 97 Oxygen Delivery Method Oxygen Flow Rate Fraction of Inspired Oxygen 08/15/22 17:20 08/15/22 17:25 08/15/22 17:30 Temperature 98.2 F 98.4 F Pulse Rate 72 72 Respiratory Rate 22 23 Blood Pressure 116/75 Pulse Oximetry 94 98 Oxygen Delivery Method Oxygen Flow Rate Fraction of Inspired Oxygen 08/15/22 17:30 08/15/22 17:35 08/15/22 17:40 Temperature 98.6 F 98.6 F 98.8 F Pulse Rate 72 72 73 Respiratory Rate 25 H 24 23 Blood Pressure Pulse Oximetry 96 97 96 Oxygen Delivery Method Oxygen Flow Rate Fraction of Inspired Oxygen 08/15/22 17:45 08/15/22 17:45 08/15/22 17:47 Temperature 98.8 F Pulse Rate 73 Respiratory Rate 21 Blood Pressure 116/74 Pulse Oximetry 93 Oxygen Delivery Method BiPAP Oxygen Flow Rate Fraction of Inspired Oxygen 40 08/15/22 18:40 08/15/22 18:41 08/15/22 18:41 Temperature Pulse Rate 83 85 Respiratory Rate 25 H 21 Blood Pressure 154/70 H Pulse Oximetry 90 L 92 Oxygen Delivery Method Oxygen Flow Rate Fraction of Inspired Oxygen 08/15/22 18:42 08/15/22 18:43 08/15/22 18:43 Temperature Pulse Rate 82 75 Respiratory Rate 13 13 Blood Pressure 166/81 H Pulse Oximetry 100 99 Oxygen Delivery Method Oxygen Flow Rate Fraction of Inspired Oxygen 08/15/22 18:44 08/15/22 18:45 08/15/22 18:45 Temperature Pulse Rate 66 75 Respiratory Rate 10 L 10 L Blood Pressure 137/72 Pulse Oximetry 100 100 Oxygen Delivery Method Ambu Bag Oxygen Flow Rate 15 Fraction of Inspired Oxygen 08/15/22 18:46 08/15/22 18:48 08/15/22 18:48 Temperature Pulse Rate 65 63 Respiratory Rate 20 18 Blood Pressure 148/76 H Pulse Oximetry 100 100 Oxygen Delivery Method Mechanical Ventilation Oxygen Flow Rate Fraction of Inspired Oxygen 08/15/22 18:50 08/15/22 18:50 08/15/22 18:52 Temperature Pulse Rate 74 71 Respiratory Rate 18 22 Blood Pressure 146/93 H Pulse Oximetry 100 92 Oxygen Delivery Method Oxygen Flow Rate Fraction of Inspired Oxygen 08/15/22 18:54 08/15/22 18:56 08/15/22 18:57 Temperature Pulse Rate 76 77 77 Respiratory Rate 25 H 31 H 28 H Blood Pressure Pulse Oximetry 100 100 100 Oxygen Delivery Method Mechanical Ventilation Oxygen Flow Rate Fraction of Inspired Oxygen 08/15/22 18:57 08/15/22 18:58 08/15/22 19:00 Temperature Pulse Rate 74 Respiratory Rate 18 Blood Pressure 134/80 127/75 Pulse Oximetry 100 Oxygen Delivery Method Oxygen Flow Rate Fraction of Inspired Oxygen 08/15/22 19:00 08/15/22 19:02 08/15/22 19:02 Temperature 98.6 F 98.6 F Pulse Rate 68 65 Respiratory Rate 18 18 Blood Pressure 114/72 Pulse Oximetry 100 100 Oxygen Delivery Method Oxygen Flow Rate Fraction of Inspired Oxygen 08/15/22 19:03 08/15/22 19:03 08/15/22 19:04 Temperature 98.6 F 98.6 F Pulse Rate 64 64 Respiratory Rate 18 18 Blood Pressure 110/71 Pulse Oximetry 100 100 Oxygen Delivery Method Oxygen Flow Rate Fraction of Inspired Oxygen 08/15/22 19:05 08/15/22 19:05 08/15/22 19:06 Temperature 98.6 F 98.6 F Pulse Rate 63 62 Respiratory Rate 18 18 Blood Pressure 104/68 Pulse Oximetry 100 100 Oxygen Delivery Method Oxygen Flow Rate Fraction of Inspired Oxygen 08/15/22 19:07 08/15/22 19:07 08/15/22 19:08 Temperature 98.6 F 98.6 F Pulse Rate 61 61 Respiratory Rate 18 18 Blood Pressure 101/64 Pulse Oximetry 100 99 Oxygen Delivery Method Oxygen Flow Rate Fraction of Inspired Oxygen 08/15/22 19:10 08/15/22 19:10 08/15/22 19:12 Temperature 98.6 F 98.6 F Pulse Rate 60 59 L Respiratory Rate 18 19 Blood Pressure 99/60 Pulse Oximetry 99 99 Oxygen Delivery Method Oxygen Flow Rate Fraction of Inspired Oxygen 08/15/22 19:13 08/15/22 19:13 08/15/22 19:14 Temperature 98.6 F 98.6 F Pulse Rate 59 L 59 L Respiratory Rate 18 18 Blood Pressure 97/56 L Pulse Oximetry 99 99 Oxygen Delivery Method Oxygen Flow Rate Fraction of Inspired Oxygen 08/15/22 19:15 08/15/22 19:15 08/15/22 19:16 Temperature 98.6 F 98.6 F Pulse Rate 58 L 58 L Respiratory Rate 18 18 Blood Pressure 94/54 L Pulse Oximetry 99 99 Oxygen Delivery Method Oxygen Flow Rate Fraction of Inspired Oxygen 08/15/22 19:17 08/15/22 19:17 08/15/22 19:18 Temperature 98.6 F 98.6 F Pulse Rate 58 L 58 L Respiratory Rate 18 18 Blood Pressure 95/57 L Pulse Oximetry 99 99 Oxygen Delivery Method Mechanical Ventilation Oxygen Flow Rate Fraction of Inspired Oxygen 08/15/22 19:20 08/15/22 19:20 08/15/22 19:22 Temperature 98.6 F Pulse Rate 57 L Respiratory Rate 18 Blood Pressure 94/55 L 94/57 L Pulse Oximetry 99 Oxygen Delivery Method Oxygen Flow Rate Fraction of Inspired Oxygen 08/15/22 19:22 08/15/22 19:24 08/15/22 18:41 Temperature 98.6 F 98.4 F Pulse Rate 57 L 57 L 64 Respiratory Rate 18 18 Blood Pressure Pulse Oximetry 99 99 Oxygen Delivery Method Mechanical Ventilation Oxygen Flow Rate Fraction of Inspired Oxygen 08/15/22 19:25 08/15/22 19:25 08/15/22 19:26 Temperature 98.4 F 98.4 F Pulse Rate 57 L 57 L Respiratory Rate 18 18 Blood Pressure 94/55 L Pulse Oximetry 99 99 Oxygen Delivery Method Oxygen Flow Rate Fraction of Inspired Oxygen 08/15/22 19:27 08/15/22 19:27 08/15/22 19:28 Temperature 98.4 F 98.4 F Pulse Rate 57 L 56 L Respiratory Rate 18 18 Blood Pressure 94/57 L Pulse Oximetry 99 99 Oxygen Delivery Method Oxygen Flow Rate Fraction of Inspired Oxygen 08/15/22 19:32 08/15/22 19:34 08/15/22 19:36 Temperature 98.4 F 98.4 F 98.4 F Pulse Rate 58 L 58 L 57 L Respiratory Rate 18 23 22 Blood Pressure Pulse Oximetry 98 97 96 Oxygen Delivery Method Oxygen Flow Rate Fraction of Inspired Oxygen 08/15/22 19:38 08/15/22 19:40 08/15/22 19:42 Temperature 98.4 F 98.4 F 98.4 F Pulse Rate 67 70 67 Respiratory Rate 27 H 17 30 H Blood Pressure Pulse Oximetry 95 63 L 95 Oxygen Delivery Method Oxygen Flow Rate Fraction of Inspired Oxygen 08/15/22 19:44 08/15/22 19:46 08/15/22 19:48 Temperature 98.4 F 98.4 F Pulse Rate 64 65 Respiratory Rate 39 H 23 Blood Pressure 110/63 Pulse Oximetry 95 94 Oxygen Delivery Method Oxygen Flow Rate Fraction of Inspired Oxygen 08/15/22 19:48 08/15/22 19:50 08/15/22 19:50 Temperature 98.4 F 98.4 F Pulse Rate 61 62 Respiratory Rate 19 18 Blood Pressure 111/69 Pulse Oximetry 96 96 Oxygen Delivery Method Mechanical Ventilation Oxygen Flow Rate Fraction of Inspired Oxygen 08/15/22 19:52 08/15/22 19:52 08/15/22 19:55 Temperature 98.4 F Pulse Rate 60 Respiratory Rate 18 Blood Pressure 106/65 104/61 Pulse Oximetry 96 Oxygen Delivery Method Oxygen Flow Rate Fraction of Inspired Oxygen 08/15/22 19:55 08/15/22 19:57 08/15/22 19:57 Temperature 98.4 F 98.2 F Pulse Rate 58 L 57 L Respiratory Rate 18 18 Blood Pressure 104/62 Pulse Oximetry 95 95 Oxygen Delivery Method Mechanical Ventilation Oxygen Flow Rate Fraction of Inspired Oxygen 08/15/22 20:00 08/15/22 20:00 08/15/22 20:05 Temperature 98.2 F Pulse Rate 57 L Respiratory Rate 18 Blood Pressure 108/63 104/63 Pulse Oximetry 95 Oxygen Delivery Method Oxygen Flow Rate Fraction of Inspired Oxygen 08/15/22 20:05 08/15/22 20:10 08/15/22 20:11 Temperature 98.2 F 98.2 F 98.2 F Pulse Rate 55 L 55 L 55 L Respiratory Rate 19 18 18 Blood Pressure Pulse Oximetry 95 96 95 Oxygen Delivery Method Oxygen Flow Rate Fraction of Inspired Oxygen 08/15/22 20:11 08/15/22 20:15 08/15/22 20:15 Temperature 98.1 F Pulse Rate 55 L Respiratory Rate 18 Blood Pressure 144/70 H 119/64 Pulse Oximetry 95 Oxygen Delivery Method Oxygen Flow Rate Fraction of Inspired Oxygen 08/15/22 20:20 08/15/22 20:20 08/15/22 20:25 Temperature 98.1 F Pulse Rate 55 L Respiratory Rate 18 Blood Pressure 110/57 L 112/61 Pulse Oximetry 95 Oxygen Delivery Method Mechanical Ventilation Oxygen Flow Rate Fraction of Inspired Oxygen 08/15/22 20:25 08/15/22 20:30 08/15/22 20:30 Temperature 98.1 F 98.1 F Pulse Rate 56 L 56 L Respiratory Rate 18 18 Blood Pressure 109/60 Pulse Oximetry 95 97 Oxygen Delivery Method Oxygen Flow Rate Fraction of Inspired Oxygen 08/15/22 20:35 08/15/22 20:35 08/15/22 20:40 Temperature 98.1 F Pulse Rate 56 L Respiratory Rate 18 Blood Pressure 110/59 L 108/59 L Pulse Oximetry 96 Oxygen Delivery Method Oxygen Flow Rate Fraction of Inspired Oxygen 08/15/22 20:40 08/15/22 20:45 08/15/22 20:45 Temperature 97.9 F 97.9 F Pulse Rate 55 L 54 L Respiratory Rate 18 18 Blood Pressure 109/61 Pulse Oximetry 96 96 Oxygen Delivery Method Oxygen Flow Rate Fraction of Inspired Oxygen 08/15/22 20:50 08/15/22 20:50 08/15/22 20:55 Temperature 97.9 F Pulse Rate 54 L Respiratory Rate 18 Blood Pressure 115/61 121/62 Pulse Oximetry 96 Oxygen Delivery Method Oxygen Flow Rate Fraction of Inspired Oxygen 08/15/22 20:55 08/15/22 21:00 08/15/22 21:00 Temperature 97.9 F 97.7 F Pulse Rate 54 L 53 L Respiratory Rate 18 18 Blood Pressure 136/59 L Pulse Oximetry 96 95 Oxygen Delivery Method Oxygen Flow Rate Fraction of Inspired Oxygen 08/15/22 21:05 08/15/22 21:05 08/15/22 21:10 Temperature 97.7 F Pulse Rate 52 L Respiratory Rate 18 Blood Pressure 132/57 L 134/57 L Pulse Oximetry 95 Oxygen Delivery Method Oxygen Flow Rate Fraction of Inspired Oxygen 08/15/22 21:10 08/15/22 21:15 08/15/22 21:15 Temperature 97.5 F L 97.5 F L Pulse Rate 52 L 52 L Respiratory Rate 18 18 Blood Pressure 135/57 L Pulse Oximetry 95 96 Oxygen Delivery Method Oxygen Flow Rate Fraction of Inspired Oxygen Fraction of Inspired Oxygen 40 Oxygen Delivery Method Mechanical Ventilation Oxygen Flow Rate 15 Narrative Exam Narrative: GEN: intubated and sedated, morbidly obese HEENT: moist mucous membranes, pinpoint pupils, PERRL NECK: trachea midline, +jvd PULM: coarse breath sounds bilaterally CV: bradycardic, no murmurs ABD: soft, nontender, nondistended, no organomegaly EXT: warm and well perfused, 2+ edema, left lower leg wound NEURO: intubated and sedated Objective Labs 08/15/22 16:35 08/15/22 22:05 Labs: Laboratory Results - last 24 hr 08/15/22 08/15/22 08/15/22 16:32 16:35 16:35 WBC 8.1 RBC 3.40 L Hgb 11.2 L Hct 35.4 L MCV 104.1 H MCH 32.8 MCHC 31.5 RDW 16.4 H Plt Count 227 Neut % (Auto) 72.2 Lymph % (Auto) 16.0 L [place] % (Auto) 7.6 Eos % (Auto) 3.1 Baso % (Auto) 1.1 Neut # (Auto) 5800 Lymph # (Auto) 1300 [place] # (Auto) 600 Eos # (Auto) 200 Baso # (Auto) 100 PT 12.7 INR 1.1 APTT 31 ABG pH 7.25 L* ABG pCO2 77.9 H* ABG pO2 68 L ABG HCO3 34 H ABG Total CO2 36 H ABG O2 Saturation 89 L ABG Base Excess 7.0 H FiO2 28 Sodium Potassium Chloride Carbon Dioxide BUN Creatinine Estimated GFR BUN/Creatinine Ratio Glucose Lactate Calcium Total Bilirubin AST ALT Alkaline Phosphatase Total Creatine Kinase CK-MB (CK-2) CK-MB (CK-2) Rel Index Troponin I NT-Pro-B Natriuret Pep Total Protein Albumin Globulin Albumin/Globulin Ratio Lipase Procalcitonin Urine Color Urine Appearance Urine pH Ur Specific [place] Urine Protein Urine Glucose (UA) Urine Ketones Urine Occult Blood Urine Nitrate Urine Bilirubin Urine Urobilinogen Ur Leukocyte Esterase Urine RBC Urine WBC Triple Phos Crystals Urine Bacteria Ur Culture Indicated? Chlamy pneumoniae PCR Adenovirus (PCR) B. pertussis DNA (PCR) B.parapertussis DNA PCR Coronavirus OC43 (PCR) Coronavirus HKU1 (PCR) Coronavirus 229E (PCR) SARS-CoV-2 (PCR) Coronavirus NL63 (PCR) Human Metapneumovir PCR Influenza Type A (PCR) Influenza Type B (PCR) M. pneumoniae (PCR) Parainfluenza 1 (PCR) Parainfluenza 2 (PCR) Parainfluenza 3 (PCR) Parainfluenza 4 (PCR) RSV (PCR) Entero/Rhino (PCR) 08/15/22 08/15/22 08/15/22 16:35 16:35 17:11 WBC RBC Hgb Hct MCV MCH MCHC RDW Plt Count Neut % (Auto) Lymph % (Auto) [place] % (Auto) Eos % (Auto) Baso % (Auto) Neut # (Auto) Lymph # (Auto) [place] # (Auto) Eos # (Auto) Baso # (Auto) PT INR APTT ABG pH ABG pCO2 ABG pO2 ABG HCO3 ABG Total CO2 ABG O2 Saturation ABG Base Excess FiO2 Sodium 141 Potassium 5.7 H Chloride 103 Carbon Dioxide 34 H BUN 43 H Creatinine 2.37 H Estimated GFR 23 L BUN/Creatinine Ratio 18.1 Glucose 86 Lactate 0.6 L Calcium 9.6 Total Bilirubin 0.4 AST 46 H ALT 27 Alkaline Phosphatase 42 Total Creatine Kinase 581 H CK-MB (CK-2) TNP CK-MB (CK-2) Rel Index TNP Troponin I 0.028 NT-Pro-B Natriuret Pep 6960 H Total Protein 7.3 Albumin 4.0 Globulin 3.3 Albumin/Globulin Ratio 1.2 Lipase 34 Procalcitonin 0.11 Urine Color Yellow Urine Appearance Cloudy Urine pH 8.0 Ur Specific [place] 1.015 Urine Protein 2+ H Urine Glucose (UA) Negative Urine Ketones Negative Urine Occult Blood Trace-intact Urine Nitrate Negative Urine Bilirubin Negative Urine Urobilinogen 0.2 Ur Leukocyte Esterase 1+ H Urine RBC None seen Urine WBC 5-10/hpf H Triple Phos Crystals Occasional Urine Bacteria Many (>30) H Ur Culture Indicated? Specimen cultured Chlamy pneumoniae PCR Adenovirus (PCR) B. pertussis DNA (PCR) B.parapertussis DNA PCR Coronavirus OC43 (PCR) Coronavirus HKU1 (PCR) Coronavirus 229E (PCR) SARS-CoV-2 (PCR) Coronavirus NL63 (PCR) Human Metapneumovir PCR Influenza Type A (PCR) Influenza Type B (PCR) M. pneumoniae (PCR) Parainfluenza 1 (PCR) Parainfluenza 2 (PCR) Parainfluenza 3 (PCR) Parainfluenza 4 (PCR) RSV (PCR) Entero/Rhino (PCR) 08/15/22 08/15/22 08/15/22 17:16 18:05 19:16 WBC RBC Hgb Hct MCV MCH MCHC RDW Plt Count Neut % (Auto) Lymph % (Auto) [place] % (Auto) Eos % (Auto) Baso % (Auto) Neut # (Auto) Lymph # (Auto) [place] # (Auto) Eos # (Auto) Baso # (Auto) PT INR APTT ABG pH 7.18 L* ABG pCO2 89.1 H* ABG pO2 86 ABG HCO3 34 H ABG Total CO2 36 H ABG O2 Saturation 93 L ABG Base Excess 5.0 H FiO2 40 Sodium 141 Potassium 6.4 H* Chloride 103 Carbon Dioxide 37 H BUN 44 H Creatinine 2.18 H Estimated GFR 25 L BUN/Creatinine Ratio 20.2 Glucose 80 Lactate Calcium 9.1 Total Bilirubin AST ALT Alkaline Phosphatase Total Creatine Kinase CK-MB (CK-2) CK-MB (CK-2) Rel Index Troponin I 0.027 NT-Pro-B Natriuret Pep Total Protein Albumin Globulin Albumin/Globulin Ratio Lipase Procalcitonin Urine Color Urine Appearance Urine pH Ur Specific [place] Urine Protein Urine Glucose (UA) Urine Ketones Urine Occult Blood Urine Nitrate Urine Bilirubin Urine Urobilinogen Ur Leukocyte Esterase Urine RBC Urine WBC Triple Phos Crystals Urine Bacteria Ur Culture Indicated? Chlamy pneumoniae PCR Not detected Adenovirus (PCR) Not detected B. pertussis DNA (PCR) Not detected B.parapertussis DNA PCR Not detected Coronavirus OC43 (PCR) Not detected Coronavirus HKU1 (PCR) Not detected Coronavirus 229E (PCR) Not detected SARS-CoV-2 (PCR) Not detected Coronavirus NL63 (PCR) Not detected Human Metapneumovir PCR Not detected Influenza Type A (PCR) Not detected Influenza Type B (PCR) Not detected M. pneumoniae (PCR) Not detected Parainfluenza 1 (PCR) Not detected Parainfluenza 2 (PCR) Not detected Parainfluenza 3 (PCR) Not detected Parainfluenza 4 (PCR) Not detected RSV (PCR) Not detected Entero/Rhino (PCR) Not detected 08/15/22 20:10 WBC RBC Hgb Hct MCV MCH MCHC RDW Plt Count Neut % (Auto) Lymph % (Auto) [place] % (Auto) Eos % (Auto) Baso % (Auto) Neut # (Auto) Lymph # (Auto) [place] # (Auto) Eos # (Auto) Baso # (Auto) PT INR APTT ABG pH 7.27 L* ABG pCO2 73.2 H* ABG pO2 84 ABG HCO3 34 H ABG Total CO2 36 H ABG O2 Saturation 94 L ABG Base Excess 7.0 H FiO2 50 Sodium Potassium Chloride Carbon Dioxide BUN Creatinine Estimated GFR BUN/Creatinine Ratio Glucose Lactate Calcium Total Bilirubin AST ALT Alkaline Phosphatase Total Creatine Kinase CK-MB (CK-2) CK-MB (CK-2) Rel Index Troponin I NT-Pro-B Natriuret Pep Total Protein Albumin Globulin Albumin/Globulin Ratio Lipase Procalcitonin Urine Color Urine Appearance Urine pH Ur Specific [place] Urine Protein Urine Glucose (UA) Urine Ketones Urine Occult Blood Urine Nitrate Urine Bilirubin Urine Urobilinogen Ur Leukocyte Esterase Urine RBC Urine WBC Triple Phos Crystals Urine Bacteria Ur Culture Indicated? Chlamy pneumoniae PCR Adenovirus (PCR) B. pertussis DNA (PCR) B.parapertussis DNA PCR Coronavirus OC43 (PCR) Coronavirus HKU1 (PCR) Coronavirus 229E (PCR) SARS-CoV-2 (PCR) Coronavirus NL63 (PCR) Human Metapneumovir PCR Influenza Type A (PCR) Influenza Type B (PCR) M. pneumoniae (PCR) Parainfluenza 1 (PCR) Parainfluenza 2 (PCR) Parainfluenza 3 (PCR) Parainfluenza 4 (PCR) RSV (PCR) Entero/Rhino (PCR) Assessment & Plan Assessment & Plan narrative: 1. Acute hypercapneic/hypoxemic respiratory failure, with chronic hypoxemic respiratory failure -suspect etiology most likely due to chf -however could be ponce/copd exacerbation with hypercapnea, and possible aspiration -for now treat broadly with antibiotics -continue with steroids, and duonebs -continue with diuresis -sbt daily -appreciate biostatistics teacher consult 2. Acute CHF exacerbation -presents with lower extremity edema and elevated bnp -last echo showed preserved ef -trops indeterminate x2 -continue lasix IV BID -goal negative 2-3L negative daily -repeat echo 3. Possible aspiration pneumonia -per ED staff patient had possible food particles suctioned from et tube -will order broad antibiotics with vanc, zosyn, azithromycin -follow up mrsa swab -follow up sputum cultures 4. BLANCA -suspect secondary chf exacerbation -will attempt diuresis -has philippe to monitor urine output -ct abdomen showed no evidence of obstruction 5. Possible hyperkalemia -potassium noted to be 6.4, but showed slight hemolysis -did get insulin in ED -recheck potassium now, suspect either artificially high or elevated secondary to blanca 5. Possible UTI -ua showed positive bacteria -follow up urine cultures -on antibiotics as above 6. Leg wound -swabbed in ED -follow up cultures 7. Type 2 Diabetes on insulin -on 22U BID of lantus -for now check glucose q6h -will order lantus 15u BID for now, medium dose insulin sliding scale 8. Morbid obesity -BMI >50, likely contributing to respiratory failure -dietitian evaluation 9. Hypertension -hold oral antihypertensives for now 10. Hypothyroidism -continue synthroid I have obtained history from ED physician and medical chart as patient is intubated. I have attempted to call daughter JULIAN, but no answer of phone, and I left a message. I have discussed plan of care with ED physician, bedside nurse, and ICU physician. I have reviewed labs, imaging, and previous medical records. CODE: Full Proxy: [facility] [place] [facility] - Meds 'Current medications' to include all prescriptions, [id number] products, herbals, cannabis/cannabidiol products, and vitamin/mineral/dietary (nutritional) supplements. I have utilized all available resources to obtain, update, or review the patient?s current medications. [If Yes, STOP here]: Yes
[2022-08-15 22:21] LABS: HEMOLYSIS < 15 (0-50); Potassium 4.7 mmol/L (3.4-5.1)
--- NOTE | 2022-08-15 23:24 | PM.CN.EICU ---
History of Present Illness Consult details IF CAMERA ACTIVATED, patient seen via real-time interactive audiovisual communication: Camera not activated Chief complaint: SOB Consent obtained for tele-yarn mercerizer operator care: Yes Patient Location: ICU Provider location (State): [place] Other participants/roles: RN, Hospitalist Narrative: This is a 61 years old female with morbid obesity, COPD on 2 L/min home O2 therapy, diabetes type 2, PONCE using CPAP at home, HFpEF, thyroiditis, depression, recent admission 2 weeks ago for acute hypercapnic respiratory failure who presented to ED with worsening shortness of breath for past 2 weeks. She denies any fever, chills, cough, chest pain, nausea/vomiting, abdominal pain, diarrhea or urinary symptoms. She reported compliance with her medications as well as CPAP at home. On arrival to ER, she was noted to be in respiratory distress, stat ABG with pH 7.25 and PCO2 of 78, was placed on BiPAP with repeat ABG actually worsening changes showing pH 7.18 and PCO2 of 89 per report received from the admitting hospitalist. Decision was made to intubate her at that point. Initial work-up in the ER was notable for elevated creatinine of 2.18 (baseline 1.4-1.6 per most recent hospitalization), lactic acid of 0.6, total CK5 81, proBNP elevated at 6960 UA with 5-10 WBCs and many bacteria, and respiratory viral panel was negative. Her initial chest x-ray showed interstitial and central vascular congestion likely from CHF exacerbation. She is now being admitted to ICU, started on antibiotics, diuretics, sedation with fentanyl and Versed drip. Repeat ABG after intubation improved with PCO2 down to 73, and pH now 7.27. She remains hemodynamically stable, has not required any vasopressors at this point. [facility] Medical History Chronic hypoxemic respiratory failure COPD (chronic obstructive pulmonary disease) DM2 (diabetes mellitus, type 2) HTN (hypertension) Obesity PONCE (obstructive sleep apnea) Systolic and diastolic CHF, chronic Thyroiditis Surgical History S/P hernia surgery Family History Mother No pertinent past medical history Father No pertinent past medical history Social History household members: other Smoking Status: Former smoker Current Medications Current Medications Medications: Home Medications acetaminophen 325 mg tablet (Tylenol) 650 mg PO TID 05/25/22 [History Confirmed 08/15/22] aspirin 81 mg tablet,delayed release 81 mg PO DAILY 05/25/22 [History Confirmed 08/15/22] budesonide-formoterol HFA 160 mcg-4.5 mcg/actuation aerosol inhaler 2 puff inhalation Q4H PRN Wheezing 05/25/22 [History Confirmed 08/15/22] bupropion HCl 150 mg tablet,12 hr sustained-release 150 mg PO BEDTIME 05/25/22 [History Confirmed 08/15/22] carvedilol 3.125 mg tablet 3.125 mg PO BID 05/25/22 [History Confirmed 08/15/22] cyanocobalamin (vitamin B-12) 500 mcg tablet 500 mcg PO DAILY 05/25/22 [History Confirmed 08/15/22] fenofibrate 160 mg tablet 160 mg PO DAILY 05/25/22 [History Confirmed 08/15/22] ferrous sulfate 325 mg (65 mg iron) tablet 325 mg PO DAILY 05/25/22 [History Confirmed 08/15/22] fluoxetine 20 mg tablet 20 mg PO DAILY 05/25/22 [History Confirmed 08/15/22] fluticasone propionate 50 mcg/actuation nasal spray,suspension 2 spray intranasal DAILY 05/25/22 [History Confirmed 08/15/22] gabapentin 300 mg capsule 300 mg PO BEDTIME 05/25/22 [History Confirmed 08/15/22] insulin glargine 100 unit/mL (3 mL) subcutaneous pen 22 unit SUBCUT BID 05/25/22 [History Confirmed 05/25/22] insulin lispro 100 unit/mL subcutaneous solution (Humalog U-100 Insulin) 4 unit SUBCUT TIDWM 05/25/22 [History Confirmed 05/25/22] lidocaine 5 % topical patch 1 patch topical DAILY 05/25/22 [History Confirmed 08/15/22] loratadine 10 mg tablet 10 mg PO DAILY 05/25/22 [History Confirmed 08/15/22] magnesium oxide 200 mg PO BID 05/25/22 [History Confirmed 08/15/22] meclizine 25 mg tablet 25 mg PO Q8HR PRN Dizziness 05/25/22 [History Confirmed 08/15/22] montelukast 10 mg tablet 10 mg PO DAILY 05/25/22 [History Confirmed 08/15/22] nystatin 100,000 unit/gram topical powder 1 applic topical BID PRN Rash 05/25/22 [History Confirmed 05/25/22] ondansetron 4 mg disintegrating tablet 4 mg PO Q8H PRN Nausea 05/25/22 [History Confirmed 08/15/22] rosuvastatin 40 mg tablet 40 mg PO DAILY 05/25/22 [History Confirmed 08/15/22] sennosides 8.6 mg tablet (senna) 17.2 mg PO BEDTIME 05/25/22 [History Confirmed 08/15/22] tiotropium bromide 18 mcg capsule with inhalation device (Spiriva with HandiHaler) 1 cap inhalation DAILY 05/25/22 [History Confirmed 08/15/22] trazodone 50 mg tablet 50 mg PO BEDTIME 05/25/22 [History Confirmed 08/15/22] albuterol sulfate 90 mcg/actuation aerosol inhaler 4 puff inhalation Q4H PRN Shortness Of Breath Or Wheezing 08/15/22 [History Confirmed 08/15/22] levothyroxine 175 mcg tablet 175 mcg PO DAILY 08/15/22 [History Confirmed 08/15/22] potassium chloride 10 mEq tablet,extended release 10 meq PO DAILY 08/15/22 [History Confirmed 08/15/22] torsemide 10 mg tablet 20 mg PO BID 08/15/22 [History] Visit Medications (administered) Generic Name Dose Route Start Last Admin Trade Name Daniloq PRN Reason Stop Dose Admin Fentanyl 50 mcg 08/15/22 18:17 08/15/22 18:54 Fentanyl 100 Mcg/2 Ml Inj IV 50 mcg Q30MIN PRN Administration Severe Pain or agitation Fentanyl 1,000 mcg/ Dextrose 250 mls @ 22.504 mls/hr 08/15/22 18:30 08/15/22 18:55 IV 0.7 mcg/kg/hr TITRATE JAY JAY 22.504 mls/hr Administration Protocol 0.7 MCG/KG/HR Midazolam HCl 50 mg/ Dextrose 250 mls @ 12.859 mls/hr 08/15/22 19:15 08/15/22 18:55 IV 0.02 mg/kg/hr TITRATE PRN 12.859 mls/hr ventilation Administration Protocol 0.02 MG/KG/HR Exam Vital Signs (past 8 hours): - 08/15/22 16:15 08/15/22 16:48 08/15/22 16:25 Temperature 97.6 F Pulse Rate 77 Respiratory Rate 28 H Blood Pressure 113/57 L 120/72 Pulse Oximetry 73 L Oxygen Delivery Method Nasal Cannula Oxygen Flow Rate 3 Fraction of Inspired Oxygen 35 08/15/22 16:25 08/15/22 16:30 08/15/22 16:35 Temperature Pulse Rate 74 75 Respiratory Rate 22 27 H Blood Pressure 126/86 Pulse Oximetry 98 94 Oxygen Delivery Method Oxygen Flow Rate Fraction of Inspired Oxygen 08/15/22 16:35 08/15/22 16:40 08/15/22 16:45 Temperature Pulse Rate 75 74 75 Respiratory Rate 29 H 23 26 H Blood Pressure Pulse Oximetry 94 92 87 L Oxygen Delivery Method Oxygen Flow Rate Fraction of Inspired Oxygen 08/15/22 16:50 08/15/22 16:55 08/15/22 17:00 Temperature Pulse Rate 74 72 73 Respiratory Rate 23 24 24 Blood Pressure Pulse Oximetry 94 91 91 Oxygen Delivery Method Oxygen Flow Rate Fraction of Inspired Oxygen 08/15/22 17:05 08/15/22 17:10 08/15/22 17:14 Temperature 96.8 F L Pulse Rate 74 74 Respiratory Rate 22 26 H Blood Pressure 121/74 Pulse Oximetry 96 94 Oxygen Delivery Method Oxygen Flow Rate Fraction of Inspired Oxygen 08/15/22 17:14 08/15/22 17:15 08/15/22 17:15 Temperature 97.9 F 97.9 F Pulse Rate 73 72 Respiratory Rate 24 21 Blood Pressure 117/75 Pulse Oximetry 97 97 Oxygen Delivery Method Oxygen Flow Rate Fraction of Inspired Oxygen 08/15/22 17:20 08/15/22 17:25 08/15/22 17:30 Temperature 98.2 F 98.4 F Pulse Rate 72 72 Respiratory Rate 22 23 Blood Pressure 116/75 Pulse Oximetry 94 98 Oxygen Delivery Method Oxygen Flow Rate Fraction of Inspired Oxygen 08/15/22 17:30 08/15/22 17:35 08/15/22 17:40 Temperature 98.6 F 98.6 F 98.8 F Pulse Rate 72 72 73 Respiratory Rate 25 H 24 23 Blood Pressure Pulse Oximetry 96 97 96 Oxygen Delivery Method Oxygen Flow Rate Fraction of Inspired Oxygen 08/15/22 17:45 08/15/22 17:45 08/15/22 17:47 Temperature 98.8 F Pulse Rate 73 Respiratory Rate 21 Blood Pressure 116/74 Pulse Oximetry 93 Oxygen Delivery Method BiPAP Oxygen Flow Rate Fraction of Inspired Oxygen 40 08/15/22 18:40 08/15/22 18:41 08/15/22 18:41 Temperature Pulse Rate 83 85 Respiratory Rate 25 H 21 Blood Pressure 154/70 H Pulse Oximetry 90 L 92 Oxygen Delivery Method Oxygen Flow Rate Fraction of Inspired Oxygen 08/15/22 18:42 08/15/22 18:43 08/15/22 18:43 Temperature Pulse Rate 82 75 Respiratory Rate 13 13 Blood Pressure 166/81 H Pulse Oximetry 100 99 Oxygen Delivery Method Oxygen Flow Rate Fraction of Inspired Oxygen 08/15/22 18:44 08/15/22 18:45 08/15/22 18:45 Temperature Pulse Rate 66 75 Respiratory Rate 10 L 10 L Blood Pressure 137/72 Pulse Oximetry 100 100 Oxygen Delivery Method Ambu Bag Oxygen Flow Rate 15 Fraction of Inspired Oxygen 08/15/22 18:46 08/15/22 18:48 08/15/22 18:48 Temperature Pulse Rate 65 63 Respiratory Rate 20 18 Blood Pressure 148/76 H Pulse Oximetry 100 100 Oxygen Delivery Method Mechanical Ventilation Oxygen Flow Rate Fraction of Inspired Oxygen 08/15/22 18:50 08/15/22 18:50 08/15/22 18:52 Temperature Pulse Rate 74 71 Respiratory Rate 18 22 Blood Pressure 146/93 H Pulse Oximetry 100 92 Oxygen Delivery Method Oxygen Flow Rate Fraction of Inspired Oxygen 08/15/22 18:54 08/15/22 18:56 08/15/22 18:57 Temperature Pulse Rate 76 77 77 Respiratory Rate 25 H 31 H 28 H Blood Pressure Pulse Oximetry 100 100 100 Oxygen Delivery Method Mechanical Ventilation Oxygen Flow Rate Fraction of Inspired Oxygen 08/15/22 18:57 08/15/22 18:58 08/15/22 19:00 Temperature Pulse Rate 74 Respiratory Rate 18 Blood Pressure 134/80 127/75 Pulse Oximetry 100 Oxygen Delivery Method Oxygen Flow Rate Fraction of Inspired Oxygen 08/15/22 19:00 08/15/22 19:02 08/15/22 19:02 Temperature 98.6 F 98.6 F Pulse Rate 68 65 Respiratory Rate 18 18 Blood Pressure 114/72 Pulse Oximetry 100 100 Oxygen Delivery Method Oxygen Flow Rate Fraction of Inspired Oxygen 08/15/22 19:03 08/15/22 19:03 08/15/22 19:04 Temperature 98.6 F 98.6 F Pulse Rate 64 64 Respiratory Rate 18 18 Blood Pressure 110/71 Pulse Oximetry 100 100 Oxygen Delivery Method Oxygen Flow Rate Fraction of Inspired Oxygen 08/15/22 19:05 08/15/22 19:05 08/15/22 19:06 Temperature 98.6 F 98.6 F Pulse Rate 63 62 Respiratory Rate 18 18 Blood Pressure 104/68 Pulse Oximetry 100 100 Oxygen Delivery Method Oxygen Flow Rate Fraction of Inspired Oxygen 08/15/22 19:07 08/15/22 19:07 08/15/22 19:08 Temperature 98.6 F 98.6 F Pulse Rate 61 61 Respiratory Rate 18 18 Blood Pressure 101/64 Pulse Oximetry 100 99 Oxygen Delivery Method Oxygen Flow Rate Fraction of Inspired Oxygen 08/15/22 19:10 08/15/22 19:10 08/15/22 19:12 Temperature 98.6 F 98.6 F Pulse Rate 60 59 L Respiratory Rate 18 19 Blood Pressure 99/60 Pulse Oximetry 99 99 Oxygen Delivery Method Oxygen Flow Rate Fraction of Inspired Oxygen 08/15/22 19:13 08/15/22 19:13 08/15/22 19:14 Temperature 98.6 F 98.6 F Pulse Rate 59 L 59 L Respiratory Rate 18 18 Blood Pressure 97/56 L Pulse Oximetry 99 99 Oxygen Delivery Method Oxygen Flow Rate Fraction of Inspired Oxygen 08/15/22 19:15 08/15/22 19:15 08/15/22 19:16 Temperature 98.6 F 98.6 F Pulse Rate 58 L 58 L Respiratory Rate 18 18 Blood Pressure 94/54 L Pulse Oximetry 99 99 Oxygen Delivery Method Oxygen Flow Rate Fraction of Inspired Oxygen 08/15/22 19:17 08/15/22 19:17 08/15/22 19:18 Temperature 98.6 F 98.6 F Pulse Rate 58 L 58 L Respiratory Rate 18 18 Blood Pressure 95/57 L Pulse Oximetry 99 99 Oxygen Delivery Method Mechanical Ventilation Oxygen Flow Rate Fraction of Inspired Oxygen 08/15/22 19:20 08/15/22 19:20 08/15/22 19:22 Temperature 98.6 F Pulse Rate 57 L Respiratory Rate 18 Blood Pressure 94/55 L 94/57 L Pulse Oximetry 99 Oxygen Delivery Method Oxygen Flow Rate Fraction of Inspired Oxygen 08/15/22 19:22 08/15/22 19:24 08/15/22 18:41 Temperature 98.6 F 98.4 F Pulse Rate 57 L 57 L 64 Respiratory Rate 18 18 Blood Pressure Pulse Oximetry 99 99 Oxygen Delivery Method Mechanical Ventilation Oxygen Flow Rate Fraction of Inspired Oxygen 08/15/22 19:25 08/15/22 19:25 08/15/22 19:26 Temperature 98.4 F 98.4 F Pulse Rate 57 L 57 L Respiratory Rate 18 18 Blood Pressure 94/55 L Pulse Oximetry 99 99 Oxygen Delivery Method Oxygen Flow Rate Fraction of Inspired Oxygen 08/15/22 19:27 08/15/22 19:27 08/15/22 19:28 Temperature 98.4 F 98.4 F Pulse Rate 57 L 56 L Respiratory Rate 18 18 Blood Pressure 94/57 L Pulse Oximetry 99 99 Oxygen Delivery Method Oxygen Flow Rate Fraction of Inspired Oxygen 08/15/22 19:32 08/15/22 19:34 08/15/22 19:36 Temperature 98.4 F 98.4 F 98.4 F Pulse Rate 58 L 58 L 57 L Respiratory Rate 18 23 22 Blood Pressure Pulse Oximetry 98 97 96 Oxygen Delivery Method Oxygen Flow Rate Fraction of Inspired Oxygen 08/15/22 19:38 08/15/22 19:40 08/15/22 19:42 Temperature 98.4 F 98.4 F 98.4 F Pulse Rate 67 70 67 Respiratory Rate 27 H 17 30 H Blood Pressure Pulse Oximetry 95 63 L 95 Oxygen Delivery Method Oxygen Flow Rate Fraction of Inspired Oxygen 08/15/22 19:44 08/15/22 19:46 08/15/22 19:48 Temperature 98.4 F 98.4 F Pulse Rate 64 65 Respiratory Rate 39 H 23 Blood Pressure 110/63 Pulse Oximetry 95 94 Oxygen Delivery Method Oxygen Flow Rate Fraction of Inspired Oxygen 08/15/22 19:48 08/15/22 19:50 08/15/22 19:50 Temperature 98.4 F 98.4 F Pulse Rate 61 62 Respiratory Rate 19 18 Blood Pressure 111/69 Pulse Oximetry 96 96 Oxygen Delivery Method Mechanical Ventilation Oxygen Flow Rate Fraction of Inspired Oxygen 08/15/22 19:52 08/15/22 19:52 08/15/22 19:55 Temperature 98.4 F Pulse Rate 60 Respiratory Rate 18 Blood Pressure 106/65 104/61 Pulse Oximetry 96 Oxygen Delivery Method Oxygen Flow Rate Fraction of Inspired Oxygen 08/15/22 19:55 08/15/22 19:57 08/15/22 19:57 Temperature 98.4 F 98.2 F Pulse Rate 58 L 57 L Respiratory Rate 18 18 Blood Pressure 104/62 Pulse Oximetry 95 95 Oxygen Delivery Method Mechanical Ventilation Oxygen Flow Rate Fraction of Inspired Oxygen 08/15/22 20:00 08/15/22 20:00 08/15/22 20:05 Temperature 98.2 F Pulse Rate 57 L Respiratory Rate 18 Blood Pressure 108/63 104/63 Pulse Oximetry 95 Oxygen Delivery Method Oxygen Flow Rate Fraction of Inspired Oxygen 08/15/22 20:05 08/15/22 20:10 08/15/22 20:11 Temperature 98.2 F 98.2 F 98.2 F Pulse Rate 55 L 55 L 55 L Respiratory Rate 19 18 18 Blood Pressure Pulse Oximetry 95 96 95 Oxygen Delivery Method Oxygen Flow Rate Fraction of Inspired Oxygen 08/15/22 20:11 08/15/22 20:15 08/15/22 20:15 Temperature 98.1 F Pulse Rate 55 L Respiratory Rate 18 Blood Pressure 144/70 H 119/64 Pulse Oximetry 95 Oxygen Delivery Method Oxygen Flow Rate Fraction of Inspired Oxygen 08/15/22 20:20 08/15/22 20:20 08/15/22 20:25 Temperature 98.1 F Pulse Rate 55 L Respiratory Rate 18 Blood Pressure 110/57 L 112/61 Pulse Oximetry 95 Oxygen Delivery Method Mechanical Ventilation Oxygen Flow Rate Fraction of Inspired Oxygen 08/15/22 20:25 08/15/22 20:30 08/15/22 20:30 Temperature 98.1 F 98.1 F Pulse Rate 56 L 56 L Respiratory Rate 18 18 Blood Pressure 109/60 Pulse Oximetry 95 97 Oxygen Delivery Method Oxygen Flow Rate Fraction of Inspired Oxygen 08/15/22 20:35 08/15/22 20:35 08/15/22 20:40 Temperature 98.1 F Pulse Rate 56 L Respiratory Rate 18 Blood Pressure 110/59 L 108/59 L Pulse Oximetry 96 Oxygen Delivery Method Oxygen Flow Rate Fraction of Inspired Oxygen 08/15/22 20:40 08/15/22 20:45 08/15/22 20:45 Temperature 97.9 F 97.9 F Pulse Rate 55 L 54 L Respiratory Rate 18 18 Blood Pressure 109/61 Pulse Oximetry 96 96 Oxygen Delivery Method Oxygen Flow Rate Fraction of Inspired Oxygen 08/15/22 20:50 08/15/22 20:50 08/15/22 20:55 Temperature 97.9 F Pulse Rate 54 L Respiratory Rate 18 Blood Pressure 115/61 121/62 Pulse Oximetry 96 Oxygen Delivery Method Oxygen Flow Rate Fraction of Inspired Oxygen 08/15/22 20:55 08/15/22 21:00 08/15/22 21:00 Temperature 97.9 F 97.7 F Pulse Rate 54 L 53 L Respiratory Rate 18 18 Blood Pressure 136/59 L Pulse Oximetry 96 95 Oxygen Delivery Method Oxygen Flow Rate Fraction of Inspired Oxygen 08/15/22 21:05 08/15/22 21:05 08/15/22 21:10 Temperature 97.7 F Pulse Rate 52 L Respiratory Rate 18 Blood Pressure 132/57 L 134/57 L Pulse Oximetry 95 Oxygen Delivery Method Oxygen Flow Rate Fraction of Inspired Oxygen 08/15/22 21:10 08/15/22 21:15 08/15/22 21:15 Temperature 97.5 F L 97.5 F L Pulse Rate 52 L 52 L Respiratory Rate 18 18 Blood Pressure 135/57 L Pulse Oximetry 95 96 Oxygen Delivery Method Oxygen Flow Rate Fraction of Inspired Oxygen 08/15/22 21:20 08/15/22 21:20 08/15/22 21:25 Temperature 97.5 F L Pulse Rate 51 L Respiratory Rate 18 Blood Pressure 136/62 135/58 L Pulse Oximetry 96 Oxygen Delivery Method Oxygen Flow Rate Fraction of Inspired Oxygen 08/15/22 21:25 08/15/22 21:30 08/15/22 21:30 Temperature 97.5 F L 97.5 F L Pulse Rate 51 L 51 L Respiratory Rate 18 18 Blood Pressure 140/61 Pulse Oximetry 96 97 Oxygen Delivery Method Oxygen Flow Rate Fraction of Inspired Oxygen 08/15/22 21:35 08/15/22 21:35 08/15/22 21:40 Temperature 97.5 F L Pulse Rate 50 L Respiratory Rate 18 Blood Pressure 137/58 L 136/60 Pulse Oximetry 97 Oxygen Delivery Method Oxygen Flow Rate Fraction of Inspired Oxygen 08/15/22 21:40 08/15/22 21:45 08/15/22 21:45 Temperature 97.5 F L 97.5 F L Pulse Rate 50 L 50 L Respiratory Rate 18 18 Blood Pressure 127/61 Pulse Oximetry 97 97 Oxygen Delivery Method Oxygen Flow Rate Fraction of Inspired Oxygen 08/15/22 21:50 08/15/22 21:55 08/15/22 21:55 Temperature 97.5 F L 97.5 F L Pulse Rate 50 L 51 L Respiratory Rate 26 H 18 Blood Pressure 117/67 Pulse Oximetry 96 97 Oxygen Delivery Method Oxygen Flow Rate Fraction of Inspired Oxygen 08/15/22 22:00 08/15/22 22:00 08/15/22 22:05 Temperature 97.5 F L Pulse Rate 50 L Respiratory Rate 18 Blood Pressure 115/66 120/70 Pulse Oximetry 96 Oxygen Delivery Method Oxygen Flow Rate Fraction of Inspired Oxygen 08/15/22 22:05 08/15/22 22:10 08/15/22 22:10 Temperature 97.5 F L 97.5 F L Pulse Rate 51 L 51 L Respiratory Rate 18 18 Blood Pressure 117/69 Pulse Oximetry 96 97 Oxygen Delivery Method Oxygen Flow Rate Fraction of Inspired Oxygen 08/15/22 22:15 08/15/22 22:15 08/15/22 22:20 Temperature 97.5 F L Pulse Rate 51 L Respiratory Rate 18 Blood Pressure 116/67 112/70 Pulse Oximetry 97 Oxygen Delivery Method Oxygen Flow Rate Fraction of Inspired Oxygen 08/15/22 22:20 08/15/22 22:25 08/15/22 22:25 Temperature 97.5 F L 97.5 F L Pulse Rate 51 L 51 L Respiratory Rate 18 18 Blood Pressure 112/69 Pulse Oximetry 97 96 Oxygen Delivery Method Oxygen Flow Rate Fraction of Inspired Oxygen 08/15/22 22:30 08/15/22 22:30 08/15/22 22:35 Temperature 97.5 F L Pulse Rate 51 L Respiratory Rate 18 Blood Pressure 114/69 113/69 Pulse Oximetry 97 Oxygen Delivery Method Oxygen Flow Rate Fraction of Inspired Oxygen 08/15/22 22:35 08/15/22 22:40 08/15/22 22:40 Temperature 97.5 F L 97.5 F L Pulse Rate 51 L 51 L Respiratory Rate 18 18 Blood Pressure 115/71 Pulse Oximetry 97 96 Oxygen Delivery Method Oxygen Flow Rate Fraction of Inspired Oxygen 08/15/22 22:45 08/15/22 22:45 08/15/22 22:50 Temperature 97.5 F L Pulse Rate 52 L Respiratory Rate 18 Blood Pressure 116/72 118/70 Pulse Oximetry 97 Oxygen Delivery Method Oxygen Flow Rate Fraction of Inspired Oxygen 08/15/22 22:50 08/15/22 22:55 08/15/22 22:55 Temperature 97.5 F L 97.5 F L Pulse Rate 52 L 52 L Respiratory Rate 18 18 Blood Pressure 116/69 Pulse Oximetry 97 97 Oxygen Delivery Method Oxygen Flow Rate Fraction of Inspired Oxygen 08/15/22 22:57 08/15/22 22:57 08/15/22 23:00 Temperature 97.5 F L Pulse Rate 52 L Respiratory Rate 18 Blood Pressure 120/70 119/71 Pulse Oximetry 96 Oxygen Delivery Method Oxygen Flow Rate Fraction of Inspired Oxygen 08/15/22 23:00 Temperature 97.5 F L Pulse Rate 52 L Respiratory Rate 18 Blood Pressure Pulse Oximetry 97 Oxygen Delivery Method Oxygen Flow Rate Fraction of Inspired Oxygen Fraction of Inspired Oxygen 40 Oxygen Delivery Method Mechanical Ventilation Oxygen Flow Rate 15 Objective Labs 08/15/22 16:35 08/15/22 22:05 Labs: Laboratory Results - last 24 hr 08/15/22 08/15/22 08/15/22 16:32 16:35 16:35 WBC 8.1 RBC 3.40 L Hgb 11.2 L Hct 35.4 L MCV 104.1 H MCH 32.8 MCHC 31.5 RDW 16.4 H Plt Count 227 Neut % (Auto) 72.2 Lymph % (Auto) 16.0 L [place] % (Auto) 7.6 Eos % (Auto) 3.1 Baso % (Auto) 1.1 Neut # (Auto) 5800 Lymph # (Auto) 1300 [place] # (Auto) 600 Eos # (Auto) 200 Baso # (Auto) 100 PT 12.7 INR 1.1 APTT 31 ABG pH 7.25 L* ABG pCO2 77.9 H* ABG pO2 68 L ABG HCO3 34 H ABG Total CO2 36 H ABG O2 Saturation 89 L ABG Base Excess 7.0 H FiO2 28 Sodium Potassium Chloride Carbon Dioxide BUN Creatinine Estimated GFR BUN/Creatinine Ratio Glucose Lactate Calcium Total Bilirubin AST ALT Alkaline Phosphatase Total Creatine Kinase CK-MB (CK-2) CK-MB (CK-2) Rel Index Troponin I NT-Pro-B Natriuret Pep Total Protein Albumin Globulin Albumin/Globulin Ratio Lipase Procalcitonin Urine Color Urine Appearance Urine pH Ur Specific [place] Urine Protein Urine Glucose (UA) Urine Ketones Urine Occult Blood Urine Nitrate Urine Bilirubin Urine Urobilinogen Ur Leukocyte Esterase Urine RBC Urine WBC Triple Phos Crystals Urine Bacteria Ur Culture Indicated? Chlamy pneumoniae PCR Adenovirus (PCR) B. pertussis DNA (PCR) B.parapertussis DNA PCR Coronavirus OC43 (PCR) Coronavirus HKU1 (PCR) Coronavirus 229E (PCR) SARS-CoV-2 (PCR) Coronavirus NL63 (PCR) Human Metapneumovir PCR Influenza Type A (PCR) Influenza Type B (PCR) M. pneumoniae (PCR) Parainfluenza 1 (PCR) Parainfluenza 2 (PCR) Parainfluenza 3 (PCR) Parainfluenza 4 (PCR) RSV (PCR) Entero/Rhino (PCR) 08/15/22 08/15/22 08/15/22 16:35 16:35 17:11 WBC RBC Hgb Hct MCV MCH MCHC RDW Plt Count Neut % (Auto) Lymph % (Auto) [place] % (Auto) Eos % (Auto) Baso % (Auto) Neut # (Auto) Lymph # (Auto) [place] # (Auto) Eos # (Auto) Baso # (Auto) PT INR APTT ABG pH ABG pCO2 ABG pO2 ABG HCO3 ABG Total CO2 ABG O2 Saturation ABG Base Excess FiO2 Sodium 141 Potassium 5.7 H Chloride 103 Carbon Dioxide 34 H BUN 43 H Creatinine 2.37 H Estimated GFR 23 L BUN/Creatinine Ratio 18.1 Glucose 86 Lactate 0.6 L Calcium 9.6 Total Bilirubin 0.4 AST 46 H ALT 27 Alkaline Phosphatase 42 Total Creatine Kinase 581 H CK-MB (CK-2) TNP CK-MB (CK-2) Rel Index TNP Troponin I 0.028 NT-Pro-B Natriuret Pep 6960 H Total Protein 7.3 Albumin 4.0 Globulin 3.3 Albumin/Globulin Ratio 1.2 Lipase 34 Procalcitonin 0.11 Urine Color Yellow Urine Appearance Cloudy Urine pH 8.0 Ur Specific [place] 1.015 Urine Protein 2+ H Urine Glucose (UA) Negative Urine Ketones Negative Urine Occult Blood Trace-intact Urine Nitrate Negative Urine Bilirubin Negative Urine Urobilinogen 0.2 Ur Leukocyte Esterase 1+ H Urine RBC None seen Urine WBC 5-10/hpf H Triple Phos Crystals Occasional Urine Bacteria Many (>30) H Ur Culture Indicated? Specimen cultured Chlamy pneumoniae PCR Adenovirus (PCR) B. pertussis DNA (PCR) B.parapertussis DNA PCR Coronavirus OC43 (PCR) Coronavirus HKU1 (PCR) Coronavirus 229E (PCR) SARS-CoV-2 (PCR) Coronavirus NL63 (PCR) Human Metapneumovir PCR Influenza Type A (PCR) Influenza Type B (PCR) M. pneumoniae (PCR) Parainfluenza 1 (PCR) Parainfluenza 2 (PCR) Parainfluenza 3 (PCR) Parainfluenza 4 (PCR) RSV (PCR) Entero/Rhino (PCR) 08/15/22 08/15/22 08/15/22 17:16 18:05 19:16 WBC RBC Hgb Hct MCV MCH MCHC RDW Plt Count Neut % (Auto) Lymph % (Auto) [place] % (Auto) Eos % (Auto) Baso % (Auto) Neut # (Auto) Lymph # (Auto) [place] # (Auto) Eos # (Auto) Baso # (Auto) PT INR APTT ABG pH 7.18 L* ABG pCO2 89.1 H* ABG pO2 86 ABG HCO3 34 H ABG Total CO2 36 H ABG O2 Saturation 93 L ABG Base Excess 5.0 H FiO2 40 Sodium 141 Potassium 6.4 H* Chloride 103 Carbon Dioxide 37 H BUN 44 H Creatinine 2.18 H Estimated GFR 25 L BUN/Creatinine Ratio 20.2 Glucose 80 Lactate Calcium 9.1 Total Bilirubin AST ALT Alkaline Phosphatase Total Creatine Kinase CK-MB (CK-2) CK-MB (CK-2) Rel Index Troponin I 0.027 NT-Pro-B Natriuret Pep Total Protein Albumin Globulin Albumin/Globulin Ratio Lipase Procalcitonin Urine Color Urine Appearance Urine pH Ur Specific [place] Urine Protein Urine Glucose (UA) Urine Ketones Urine Occult Blood Urine Nitrate Urine Bilirubin Urine Urobilinogen Ur Leukocyte Esterase Urine RBC Urine WBC Triple Phos Crystals Urine Bacteria Ur Culture Indicated? Chlamy pneumoniae PCR Not detected Adenovirus (PCR) Not detected B. pertussis DNA (PCR) Not detected B.parapertussis DNA PCR Not detected Coronavirus OC43 (PCR) Not detected Coronavirus HKU1 (PCR) Not detected Coronavirus 229E (PCR) Not detected SARS-CoV-2 (PCR) Not detected Coronavirus NL63 (PCR) Not detected Human Metapneumovir PCR Not detected Influenza Type A (PCR) Not detected Influenza Type B (PCR) Not detected M. pneumoniae (PCR) Not detected Parainfluenza 1 (PCR) Not detected Parainfluenza 2 (PCR) Not detected Parainfluenza 3 (PCR) Not detected Parainfluenza 4 (PCR) Not detected RSV (PCR) Not detected Entero/Rhino (PCR) Not detected 08/15/22 08/15/22 20:10 22:05 WBC RBC Hgb Hct MCV MCH MCHC RDW Plt Count Neut % (Auto) Lymph % (Auto) [place] % (Auto) Eos % (Auto) Baso % (Auto) Neut # (Auto) Lymph # (Auto) [place] # (Auto) Eos # (Auto) Baso # (Auto) PT INR APTT ABG pH 7.27 L* ABG pCO2 73.2 H* ABG pO2 84 ABG HCO3 34 H ABG Total CO2 36 H ABG O2 Saturation 94 L ABG Base Excess 7.0 H FiO2 50 Sodium Potassium 4.7 D Chloride Carbon Dioxide BUN Creatinine Estimated GFR BUN/Creatinine Ratio Glucose Lactate Calcium Total Bilirubin AST ALT Alkaline Phosphatase Total Creatine Kinase CK-MB (CK-2) CK-MB (CK-2) Rel Index Troponin I NT-Pro-B Natriuret Pep Total Protein Albumin Globulin Albumin/Globulin Ratio Lipase Procalcitonin Urine Color Urine Appearance Urine pH Ur Specific [place] Urine Protein Urine Glucose (UA) Urine Ketones Urine Occult Blood Urine Nitrate Urine Bilirubin Urine Urobilinogen Ur Leukocyte Esterase Urine RBC Urine WBC Triple Phos Crystals Urine Bacteria Ur Culture Indicated? Chlamy pneumoniae PCR Adenovirus (PCR) B. pertussis DNA (PCR) B.parapertussis DNA PCR Coronavirus OC43 (PCR) Coronavirus HKU1 (PCR) Coronavirus 229E (PCR) SARS-CoV-2 (PCR) Coronavirus NL63 (PCR) Human Metapneumovir PCR Influenza Type A (PCR) Influenza Type B (PCR) M. pneumoniae (PCR) Parainfluenza 1 (PCR) Parainfluenza 2 (PCR) Parainfluenza 3 (PCR) Parainfluenza 4 (PCR) RSV (PCR) Entero/Rhino (PCR) Assessment & Plan Assessment & Plan narrative: # Acute hypercapnic respiratory failure / Chronic hypoxic respiratory failure - Multifactorial. Primarily from CHF exacerbation, but may have some component of COPD exacerbation. She also has history of PONCE/OHS with 2 L/min home O2 therapy at baseline. Per primary team, there was a concern for aspiration pneumonia as well when she arrived to the ER. - Chest x-ray shows interstitial and central vascular congestion likely from CHF exacerbation. Her proBNP is severely elevated at 6960 which also favors CHF exacerbation as her primary etiology for worsening respiratory failure. - Failed BiPAP, required to be intubated in the ED tonight. Follow-up ABG improved after intubation. Reviewed and adjusted ventilator settings. Reviewed post intubation chest x-ray and verify ET tube position. - C/w vent support per lung protective strategy (TV 6ml/kg by IBW, plat pressure < 30, PaO2 60-80 mm Hg, SaO2 > 88%) and c/w ABCDE bundle while intubated. - On Versed gtt and Fentanyl gtt for sedation/pain control. Goal to keep RAAS 0 to -2. - C/w daily sedation vacation (SAT) and vent weaning as tolerated. Evaluate tomorrow am with SAT and SBT. - Continue with diuretics with Lasix, goal to see net negative daily fluid balance of -1-2 L/day. Daily weight, strict input and output. - Continue empiric IV antibiotics to cover for aspiration pneumonia pending further work-up including cultures and procalcitonin. - Agree with starting Solu-Medrol and continue DuoNeb every 4 hours scheduled, and every 2 hours as needed to cover for component of COPD exacerbation. # Acute exacerbation of HFpEF - Most recent echo showed preserved EF. Repeat another TTE - Continue with diuretics with Lasix 40 mg IV twice daily - Minimize aggressive IV fluid resuscitation, low threshold for starting vasopressors if becomes hypotensive with sedation. # Suspected aspiration pneumonia: - Cannot rule out underlying pneumonia based on initial chest x-ray. - Agree with empiric antibiotics including Zosyn to cover for aspiration pneumonia - Follow-up on MRSA swab, blood cultures, sputum cultures, procalcitonin. # Acute kidney injury / Hyperkalemia: - Baseline creatinine 1.4-1.6, now increased to 2.18 on admission. Likely from CHF exacerbation/volume overload. - Continue with diuresis, monitor renal functions with serial BMP and strict input/output. - Initial serum potassium 6.4, unclear if hemolyzed. Repeat BMP pending. If continues to remain elevated, will need to aggressively treat with medical treatment. # Morbid obesity / OHS/ PONCE: - When ready for extubation, would extubate on BiPAP # FEN: Currently NPO. Start tube feeding in am if remains intubated. # Glucose: fairly controlled. C/w Accu checks Q6 hours and SSI. BG goal 140-180 # Prophylaxis: Heparin 5000 units subcu Q8 hourly for DVT prophylaxis, PPI for stress ulcer prophylaxis # Lines/tubes: PIV, Babcock, ET tube, OG tube # CODE STATUS: Full code # Disposition: Remains in ICU Above plan was discussed with rounding team including hospitalist, bedside RN, respiratory therapist. We will continue to follow. Please call us if any additional questions.
--- NOTE | 2022-08-15 23:46 | DI.ECHO.S_ITS ---
[facility]---------+ [facility] +---------+ : : [address] : : : : [id number] : : : : Phone: [phone]+ Echocardiogram Report + + :Name: ELLA OSHEA Study Date: 08/16/2022 Height: 63 in : :[facility] ReadingLocation: Weight: 283 lb : : Gender: Female BSA: 2.2 m2 : :: 1960 Age: 61 yrs BP: 107/53 mmHg: :Reason For Study: CONGESTIVE HEART FAILURE : :Ordering Physician: KASEY, : :LOUIE Performed By: Galina Loyola : :Referring: LOUIE PARKS : + + Interpretation Summary This is a technically difficult study enhanced with Definity echo contrast. Normal sinus rhythm. Normal LV size and wall thickness. Global hypokinesis with ejection fraction of 30-35%. Compared to prior study obtained May 26, 2022, cardiomyopathy is stable. Procedure: Images were not obtained from all of the standard acoustic windows due to the limited scope of the study. A two-dimensional transthoracic echocardiogram with color flow and Doppler was performed in limited views only to assess ejection fraction.. The study quality was technically difficult. A contrast injection of Definity was performed to improve assessment of LV function. Contrast was injected into an intravenous site in the left arm. The patient was in sinus bradycardia with heart rates between 57-62 bpm during the exam. Left Ventricle: The left ventricle is normal in size and wall thickness. The ejection fraction is estimated to be 30-35%. Pericardium/ Pleura There is no pericardial effusion. There is no pleural effusion. MMode/2D Measurements & Calculations LVIDd: 4.9 cm LVIDs: 4.2 cm FS: 13.5 % IVSd: 0.81 cm LVPWd: 0.78 cm LV cotto. diameter/BSA (cm/m^2): 2.2 LV sys. diameter/BSA (cm/m^2): 1.9 Electronically signed by: Mary Ellen Caro M.D. on Reading Physician:08/16/2022 01:40 PM
[2022-08-16] VITALS (69 sets, daily range): BP systolic 77–149; BP diastolic 38–78; PULSE 56–84; RESP 16–31; TEMP 36.4–38.7; O2SAT 88–99; BMI 50.1
[2022-08-16 01:02] LABS: MRSA (Nasal) PCR Not Detected (Not Detect)
[2022-08-16] MEDS: methylPREDNISolone 125 MG/2 ML VIAL 60 MG IV ×2 (02:17→12:50)
[2022-08-16] MEDS: PIPERACILLIN/TAZO 3.375 GM in SODIUM CHLORIDE 0.9% 100 ML IV (02:28)
[2022-08-16] MEDS: ALBUTEROL/IPRATROPIUM 3 ML AMPUL INH ×5 (02:32→21:25)
[2022-08-16 04:43] LABS: Add Manual Diff / Slide Review NO; Basophils Absolute Auto 100 /uL (0-100); Basophils Percent Auto 0.7 % (0-2); Eosinophils Absolute Auto 0 /uL (0-450); Eosinophils Percent Auto 0.3 % (2-4); Hematocrit 35.1 % (36-46); Hemoglobin 11.4 g/dL (12.0-16.0); Lymphocytes Absolute Auto 600 /uL (1100-4500); Lymphocytes Percent Auto 7.4 % (25-40); Mean Corpuscular HGB Conc 32.4 % (30-36); Mean Corpuscular Volume 102.1 fL (80-100); Monocytes Absolute Auto 100 /uL (0-900); Monocytes Percent Auto 1.7 % (3-14); Neutrophils Absolute Auto 6700 /uL (1500-7000); Neutrophils Percent Auto 89.9 % (50-75); Platelet Count 200 X10^3/uL (150-400); Red Blood Cell Count 3.44 X10^6/uL (4.0-5.2); Red Cell Distribution Width 16.2 % (11.6-14.8); White Blood Cell Count 7.5 X10^3/uL (4.5-11.0)
[2022-08-16 04:51] LABS: BUN Creatinine Ratio 19.1 (6-22); Blood Urea Nitrogen 43 mg/dL (7-17); Calcium 9.4 mg/dL (8.4-10.2); Carbon Dioxide 36 mmol/L (22-32); Chloride 99 mmol/L (98-107); Estimated Glomerular Filt Rate 24 mL/min (>60); Glucose 167 mg/dL (80-110); HEMOLYSIS < 15 (0-50); Magnesium 2.3 mg/dL (1.6-2.3); Potassium 4.6 mmol/L (3.4-5.1); Sodium 142 mmol/L (137-145)
[2022-08-16 05:14] LABS: Fractionated Inspired Oxygen 40; HCO3 ABG 32 mmol/L (23-27); Oxygen Saturation ABG 89 % (95-100); PCO2 ABG 46.9 mmHg (35-45); PO2 ABG 55 mmHg (80-100); TCO2 ABG 33 mmol/L (23-27); pH ABG 7.44 (7.35-7.45)
--- NOTE | 2022-08-16 06:03 | PC.NURSE ---
patient came to unit from ED well sedated on fentanyl and versed, responding to painful stimuli only. Patient's respirations synced with ventilator setting of 18. HR Sinus Dylon 50s, normotensive with MAP at or above 65. due to incompatibility of ABX and sedation patient required additional IVs. Hospitalist will advocate for central/ PICC line to oncoming providers. Patient's urine output has been profound varying from 200 to 450ml/ hr. ED attempted to contact Patient's next of kin but no contact was made.
[2022-08-16] MEDS: fentaNYL 1,000 MCG in DEXTROSE 5% IN WATER 230 ML 22.504 MCG IV (06:55)
--- NOTE | 2022-08-16 09:12 | DI.RAD.S_ITS ---
PROCEDURE: XR CHEST FOR PICC 1V INDICATIONS: PICC line placement TECHNIQUE: One view of the chest was acquired. COMPARISON: [facility], , XR CHEST 1V, 08/15/2022, 18:38. FINDINGS: Surgical changes and devices: There is a left PICC, the tip of which is projected over the cavoatrial junction. NG tube and endotracheal tube are redemonstrated. Lungs and pleura: There are diffuse interstitial radiopacities. The lung bases are not well characterized; however airspace opacities likely persist at the left lung base similar to the study dated August 15, 2022. Mediastinum: Mediastinal contours appear normal. Heart size is normal. Bones and chest wall: No suspicious bony lesions. Overlying soft tissues appear unremarkable. IMPRESSION: PICC as above. Otherwise stable chest. Dictated by: Zuly Anderson M.D. on 08/16/2022 at 9:43 Approved by: Zuly Anderson M.D. on 08/16/2022 at 9:44
--- NOTE | 2022-08-16 09:52 | P.TELICUPN_ITS ---
Subjective Subjective IF CAMERA ACTIVATED, patient seen via real-time interactive audiovisual communication: Camera activated Consent obtained for tele-field support representative care: Yes Patient Location: ICU Provider location (State): [place] Other participants/roles: Dr. Gillespie Current Medications Current Medications Medications: Home Medications acetaminophen 325 mg tablet (Tylenol) 650 mg PO TID 05/25/22 [History Confirmed 08/15/22] aspirin 81 mg tablet,delayed release 81 mg PO DAILY 05/25/22 [History Confirmed 08/15/22] budesonide-formoterol HFA 160 mcg-4.5 mcg/actuation aerosol inhaler 2 puff inhalation Q4H PRN Wheezing 05/25/22 [History Confirmed 08/15/22] bupropion HCl 150 mg tablet,12 hr sustained-release 150 mg PO BEDTIME 05/25/22 [History Confirmed 08/15/22] carvedilol 3.125 mg tablet 3.125 mg PO BID 05/25/22 [History Confirmed 08/15/22] cyanocobalamin (vitamin B-12) 500 mcg tablet 500 mcg PO DAILY 05/25/22 [History Confirmed 08/15/22] fenofibrate 160 mg tablet 160 mg PO DAILY 05/25/22 [History Confirmed 08/15/22] ferrous sulfate 325 mg (65 mg iron) tablet 325 mg PO DAILY 05/25/22 [History Confirmed 08/15/22] fluoxetine 20 mg tablet 20 mg PO DAILY 05/25/22 [History Confirmed 08/15/22] fluticasone propionate 50 mcg/actuation nasal spray,suspension 2 spray intranasal DAILY 05/25/22 [History Confirmed 08/15/22] gabapentin 300 mg capsule 300 mg PO BEDTIME 05/25/22 [History Confirmed 08/15/22] insulin glargine 100 unit/mL (3 mL) subcutaneous pen 22 unit SUBCUT BID 05/25/22 [History Confirmed 08/16/22] insulin lispro 100 unit/mL subcutaneous solution (Humalog U-100 Insulin) 4 unit SUBCUT TIDWM 05/25/22 [History Confirmed 08/16/22] lidocaine 5 % topical patch 1 patch topical DAILY 05/25/22 [History Confirmed 08/15/22] loratadine 10 mg tablet 10 mg PO DAILY 05/25/22 [History Confirmed 08/15/22] magnesium oxide 200 mg PO BID 05/25/22 [History Confirmed 08/15/22] meclizine 25 mg tablet 25 mg PO Q8HR PRN Dizziness 05/25/22 [History Confirmed 08/15/22] montelukast 10 mg tablet 10 mg PO DAILY 05/25/22 [History Confirmed 08/15/22] nystatin 100,000 unit/gram topical powder 1 applic topical BID PRN Rash 05/25/22 [History Confirmed 08/16/22] ondansetron 4 mg disintegrating tablet 4 mg PO Q8H PRN Nausea 05/25/22 [History Confirmed 08/15/22] rosuvastatin 40 mg tablet 40 mg PO DAILY 05/25/22 [History Confirmed 08/15/22] sennosides 8.6 mg tablet (senna) 17.2 mg PO BEDTIME 05/25/22 [History Confirmed 08/15/22] tiotropium bromide 18 mcg capsule with inhalation device (Spiriva with HandiHaler) 1 cap inhalation DAILY 05/25/22 [History Confirmed 08/15/22] trazodone 50 mg tablet 50 mg PO BEDTIME 05/25/22 [History Confirmed 08/15/22] albuterol sulfate 90 mcg/actuation aerosol inhaler 4 puff inhalation Q4H PRN Elma rtness Of Breath Or Wheezing 08/15/22 [History Confirmed 08/15/22] levothyroxine 175 mcg tablet 175 mcg PO DAILY 08/15/22 [History Confirmed 08/15/22] potassium chloride 10 mEq tablet,extended release 10 meq PO DAILY 08/15/22 [History Confirmed 08/15/22] torsemide 10 mg tablet 20 mg PO BID 08/15/22 [History Confirmed 08/16/22] Visit Medications (administered) Generic Name Dose Route Start Last Admin Trade Name Freq PRN Reason Stop Dose Admin Albuterol/Ipratropium 3 ml 08/15/22 23:46 08/16/22 07:48 Albuterol/Ipratropium 3 Ml Ampul INH 3 ml [id number] JAY JAY Administration Fentanyl 50 mcg 08/15/22 18:17 08/15/22 18:54 Fentanyl 100 Mcg/2 Ml Inj IV 50 mcg Q30MIN PRN Administration Severe Pain or agitation Fentanyl 1,000 mcg/ Dextrose 250 mls @ 22.504 mls/hr 08/15/22 18:30 08/16/22 09:10 IV 0.7 mcg/kg/hr TITRATE JAY JAY 22.504 mls/hr Titration Protocol 0.7 MCG/KG/HR Azithromycin 500 mg/ Dextrose 250 mls @ 250 mls/hr 08/15/22 23:46 08/16/22 08:47 IV Not Given Q24H PENDING SALE TO [facility] Insulin Human Lispro 0 unit 08/16/22 07:45 08/16/22 08:53 Insulin Lispro 100 Unit/Ml 3ml Vial SUBCUT Not Given ACHS PENDING SALE TO [facility] Protocol Methylprednisolone 60 mg 08/15/22 23:46 08/16/22 02:17 Methylprednisolone 125 Mg/2 Ml Vial IV 60 mg Q12H JAY JAY Administration Montelukast Sodium 10 mg 08/16/22 09:00 08/16/22 09:19 Montelukast 10 Mg Tablet PO Not Given DAILY PENDING SALE TO [facility] Objective Ventilator Parameters: Ventilator Settings FiO2 35 RT Vent Frequency 16 Ventilator Tidal Volume 350 Exhaled Vt/kg IBW 8 Positive End Expiratory 5 Pressure Inspiratory Phase Time 0.9 I:E Ratio 1:2.7 Patient Position HOB >= 30 degrees Labs 08/16/22 04:10 08/16/22 04:10 Labs: Laboratory Results - last 24 hr 08/15/22 08/15/22 08/15/22 16:32 16:35 16:35 WBC 8.1 RBC 3.40 L Hgb 11.2 L Hct 35.4 L MCV 104.1 H MCH 32.8 MCHC 31.5 RDW 16.4 H Plt Count 227 Neut % (Auto) 72.2 Lymph % (Auto) 16.0 L [place] % (Auto) 7.6 Eos % (Auto) 3.1 Baso % (Auto) 1.1 Neut # (Auto) 5800 Lymph # (Auto) 1300 [place] # (Auto) 600 Eos # (Auto) 200 Baso # (Auto) 100 PT 12.7 INR 1.1 APTT 31 ABG pH 7.25 L* ABG pCO2 77.9 H* ABG pO2 68 L ABG HCO3 34 H ABG Total CO2 36 H ABG O2 Saturation 89 L ABG Base Excess 7.0 H FiO2 28 Sodium Potassium Chloride Carbon Dioxide BUN Creatinine Estimated GFR BUN/Creatinine Ratio Glucose Lactate Calcium Magnesium Total Bilirubin AST ALT Alkaline Phosphatase Total Creatine Kinase CK-MB (CK-2) CK-MB (CK-2) Rel Index Troponin I NT-Pro-B Natriuret Pep Total Protein Albumin Globulin Albumin/Globulin Ratio Lipase Procalcitonin Urine Color Urine Appearance Urine pH Ur Specific [place] Urine Protein Urine Glucose (UA) Urine Ketones Urine Occult Blood Urine Nitrate Urine Bilirubin Urine Urobilinogen Ur Leukocyte Esterase Urine RBC Urine WBC Triple Phos Crystals Urine Bacteria Ur Culture Indicated? Nasal Screen MRSA (PCR) Chlamy pneumoniae PCR Adenovirus (PCR) B. pertussis DNA (PCR) B.parapertussis DNA PCR Coronavirus OC43 (PCR) Coronavirus HKU1 (PCR) Coronavirus 229E (PCR) SARS-CoV-2 (PCR) Coronavirus NL63 (PCR) Human Metapneumovir PCR Influenza Type A (PCR) Influenza Type B (PCR) M. pneumoniae (PCR) Parainfluenza 1 (PCR) Parainfluenza 2 (PCR) Parainfluenza 3 (PCR) Parainfluenza 4 (PCR) RSV (PCR) Entero/Rhino (PCR) 08/15/22 08/15/22 08/15/22 16:35 16:35 17:11 WBC RBC Hgb Hct MCV MCH MCHC RDW Plt Count Neut % (Auto) Lymph % (Auto) [place] % (Auto) Eos % (Auto) Baso % (Auto) Neut # (Auto) Lymph # (Auto) [place] # (Auto) Eos # (Auto) Baso # (Auto) PT INR APTT ABG pH ABG pCO2 ABG pO2 ABG HCO3 ABG Total CO2 ABG O2 Saturation ABG Base Excess FiO2 Sodium 141 Potassium 5.7 H Chloride 103 Carbon Dioxide 34 H BUN 43 H Creatinine 2.37 H Estimated GFR 23 L BUN/Creatinine Ratio 18.1 Glucose 86 Lactate 0.6 L Calcium 9.6 Magnesium Total Bilirubin 0.4 AST 46 H ALT 27 Alkaline Phosphatase 42 Total Creatine Kinase 581 H CK-MB (CK-2) TNP CK-MB (CK-2) Rel Index TNP Troponin I 0.028 NT-Pro-B Natriuret Pep 6960 H Total Protein 7.3 Albumin 4.0 Globulin 3.3 Albumin/Globulin Ratio 1.2 Lipase 34 Procalcitonin 0.11 Urine Color Yellow Urine Appearance Cloudy Urine pH 8.0 Ur Specific [place] 1.015 Urine Protein 2+ H Urine Glucose (UA) Negative Urine Ketones Negative Urine Occult Blood Trace-intact Urine Nitrate Negative Urine Bilirubin Negative Urine Urobilinogen 0.2 Ur Leukocyte Esterase 1+ H Urine RBC None seen Urine WBC 5-10/hpf H Triple Phos Crystals Occasional Urine Bacteria Many (>30) H Ur Culture Indicated? Specimen cultured Nasal Screen MRSA (PCR) Chlamy pneumoniae PCR Adenovirus (PCR) B. pertussis DNA (PCR) B.parapertussis DNA PCR Coronavirus OC43 (PCR) Coronavirus HKU1 (PCR) Coronavirus 229E (PCR) SARS-CoV-2 (PCR) Coronavirus NL63 (PCR) Human Metapneumovir PCR Influenza Type A (PCR) Influenza Type B (PCR) M. pneumoniae (PCR) Parainfluenza 1 (PCR) Parainfluenza 2 (PCR) Parainfluenza 3 (PCR) Parainfluenza 4 (PCR) RSV (PCR) Entero/Rhino (PCR) 08/15/22 08/15/22 08/15/22 17:16 18:05 19:16 WBC RBC Hgb Hct MCV MCH MCHC RDW Plt Count Neut % (Auto) Lymph % (Auto) [place] % (Auto) Eos % (Auto) Baso % (Auto) Neut # (Auto) Lymph # (Auto) [place] # (Auto) Eos # (Auto) Baso # (Auto) PT INR APTT ABG pH 7.18 L* ABG pCO2 89.1 H* ABG pO2 86 ABG HCO3 34 H ABG Total CO2 36 H ABG O2 Saturation 93 L ABG Base Excess 5.0 H FiO2 40 Sodium 141 Potassium 6.4 H* Chloride 103 Carbon Dioxide 37 H BUN 44 H Creatinine 2.18 H Estimated GFR 25 L BUN/Creatinine Ratio 20.2 Glucose 80 Lactate Calcium 9.1 Magnesium Total Bilirubin AST ALT Alkaline Phosphatase Total Creatine Kinase CK-MB (CK-2) CK-MB (CK-2) Rel Index Troponin I 0.027 NT-Pro-B Natriuret Pep Total Protein Albumin Globulin Albumin/Globulin Ratio Lipase Procalcitonin Urine Color Urine Appearance Urine pH Ur Specific [place] Urine Protein Urine Glucose (UA) Urine Ketones Urine Occult Blood Urine Nitrate Urine Bilirubin Urine Urobilinogen Ur Leukocyte Esterase Urine RBC Urine WBC Triple Phos Crystals Urine Bacteria Ur Culture Indicated? Nasal Screen MRSA (PCR) Chlamy pneumoniae PCR Not detected Adenovirus (PCR) Not detected B. pertussis DNA (PCR) Not detected B.parapertussis DNA PCR Not detected Coronavirus OC43 (PCR) Not detected Coronavirus HKU1 (PCR) Not detected Coronavirus 229E (PCR) Not detected SARS-CoV-2 (PCR) Not detected Coronavirus NL63 (PCR) Not detected Human Metapneumovir PCR Not detected Influenza Type A (PCR) Not detected Influenza Type B (PCR) Not detected M. pneumoniae (PCR) Not detected Parainfluenza 1 (PCR) Not detected Parainfluenza 2 (PCR) Not detected Parainfluenza 3 (PCR) Not detected Parainfluenza 4 (PCR) Not detected RSV (PCR) Not detected Entero/Rhino (PCR) Not detected 08/15/22 08/15/22 08/15/22 20:10 22:05 23:39 WBC RBC Hgb Hct MCV MCH MCHC RDW Plt Count Neut % (Auto) Lymph % (Auto) [place] % (Auto) Eos % (Auto) Baso % (Auto) Neut # (Auto) Lymph # (Auto) [place] # (Auto) Eos # (Auto) Baso # (Auto) PT INR APTT ABG pH 7.27 L* ABG pCO2 73.2 H* ABG pO2 84 ABG HCO3 34 H ABG Total CO2 36 H ABG O2 Saturation 94 L ABG Base Excess 7.0 H FiO2 50 Sodium Potassium 4.7 D Chloride Carbon Dioxide BUN Creatinine Estimated GFR BUN/Creatinine Ratio Glucose Lactate Calcium Magnesium Total Bilirubin AST ALT Alkaline Phosphatase Total Creatine Kinase CK-MB (CK-2) CK-MB (CK-2) Rel Index Troponin I NT-Pro-B Natriuret Pep Total Protein Albumin Globulin Albumin/Globulin Ratio Lipase Procalcitonin Urine Color Urine Appearance Urine pH Ur Specific [place] Urine Protein Urine Glucose (UA) Urine Ketones Urine Occult Blood Urine Nitrate Urine Bilirubin Urine Urobilinogen Ur Leukocyte Esterase Urine RBC Urine WBC Triple Phos Crystals Urine Bacteria Ur Culture Indicated? Nasal Screen MRSA (PCR) Not detected Chlamy pneumoniae PCR Adenovirus (PCR) B. pertussis DNA (PCR) B.parapertussis DNA PCR Coronavirus OC43 (PCR) Coronavirus HKU1 (PCR) Coronavirus 229E (PCR) SARS-CoV-2 (PCR) Coronavirus NL63 (PCR) Human Metapneumovir PCR Influenza Type A (PCR) Influenza Type B (PCR) M. pneumoniae (PCR) Parainfluenza 1 (PCR) Parainfluenza 2 (PCR) Parainfluenza 3 (PCR) Parainfluenza 4 (PCR) RSV (PCR) Entero/Rhino (PCR) 08/16/22 08/16/22 08/16/22 04:10 04:10 04:36 WBC 7.5 RBC 3.44 L Hgb 11.4 L Hct 35.1 L MCV 102.1 H MCH 33.0 MCHC 32.4 RDW 16.2 H Plt Count 200 Neut % (Auto) 89.9 H Lymph % (Auto) 7.4 L [place] % (Auto) 1.7 L Eos % (Auto) 0.3 L Baso % (Auto) 0.7 Neut # (Auto) 6700 Lymph # (Auto) 600 L [place] # (Auto) 100 Eos # (Auto) 0 Baso # (Auto) 100 PT INR APTT ABG pH 7.44 ABG pCO2 46.9 H ABG pO2 55 L ABG HCO3 32 H ABG Total CO2 33 H ABG O2 Saturation 89 L ABG Base Excess 7.0 H FiO2 40 Sodium 142 Potassium 4.6 Chloride 99 Carbon Dioxide 36 H BUN 43 H Creatinine 2.25 H Estimated GFR 24 L BUN/Creatinine Ratio 19.1 Glucose 167 H Lactate Calcium 9.4 Magnesium 2.3 Total Bilirubin AST ALT Alkaline Phosphatase Total Creatine Kinase CK-MB (CK-2) CK-MB (CK-2) Rel Index Troponin I NT-Pro-B Natriuret Pep Total Protein Albumin Globulin Albumin/Globulin Ratio Lipase Procalcitonin Urine Color Urine Appearance Urine pH Ur Specific [place] Urine Protein Urine Glucose (UA) Urine Ketones Urine Occult Blood Urine Nitrate Urine Bilirubin Urine Urobilinogen Ur Leukocyte Esterase Urine RBC Urine WBC Triple Phos Crystals Urine Bacteria Ur Culture Indicated? Nasal Screen MRSA (PCR) Chlamy pneumoniae PCR Adenovirus (PCR) B. pertussis DNA (PCR) B.parapertussis DNA PCR Coronavirus OC43 (PCR) Coronavirus HKU1 (PCR) Coronavirus 229E (PCR) SARS-CoV-2 (PCR) Coronavirus NL63 (PCR) Human Metapneumovir PCR Influenza Type A (PCR) Influenza Type B (PCR) M. pneumoniae (PCR) Parainfluenza 1 (PCR) Parainfluenza 2 (PCR) Parainfluenza 3 (PCR) Parainfluenza 4 (PCR) RSV (PCR) Entero/Rhino (PCR) Exam Vital Signs (past 8 hours): - 08/16/22 02:00 08/16/22 02:00 08/16/22 02:30 Temperature 97.9 F Pulse Rate 62 Respiratory Rate 20 Blood Pressure 116/58 L 118/60 Pulse Oximetry 96 08/16/22 02:30 08/16/22 03:00 08/16/22 03:01 Temperature 97.9 F 98.1 F 98.1 F Pulse Rate 60 64 62 Respiratory Rate 18 18 27 H Blood Pressure Pulse Oximetry 99 95 94 08/16/22 03:01 08/16/22 03:30 08/16/22 04:00 Temperature 97.7 F Pulse Rate 64 Respiratory Rate 18 Blood Pressure 103/53 L 107/55 L Pulse Oximetry 95 08/16/22 04:00 08/16/22 05:00 08/16/22 05:00 Temperature 97.7 F 97.7 F Pulse Rate 61 60 Respiratory Rate 18 20 Blood Pressure 110/55 L Pulse Oximetry 94 95 08/16/22 06:00 08/16/22 06:00 08/16/22 07:00 Temperature 97.7 F Pulse Rate 57 L Respiratory Rate 22 Blood Pressure 107/53 L 105/53 L Pulse Oximetry 94 08/16/22 07:00 08/16/22 08:00 08/16/22 08:01 Temperature 97.9 F 98.1 F 98.1 F Pulse Rate 56 L 63 69 Respiratory Rate 18 27 H 31 H Blood Pressure Pulse Oximetry 95 91 89 L 08/16/22 08:01 08/16/22 08:40 08/16/22 09:00 Temperature Pulse Rate Respiratory Rate Blood Pressure 105/52 L 98/55 L Pulse Oximetry 91 08/16/22 09:00 Temperature 99.7 F H Pulse Rate 80 Respiratory Rate 26 H Blood Pressure Pulse Oximetry Fraction of Inspired Oxygen 40 Oxygen Delivery Method Mechanical Ventilation Oxygen Flow Rate 15 Quality TeleICU VTE Deep Vein Thrombosis/Pulmonary Embolism Present on Admission: No Assessment & Plan Assessment & Plan narrative: patient seen on video, discussed with bedside nurse and provider Dr. Gillespie chart/labs/imaging reviewed 61 year old female admitted to ICU with acute mixed resp failure CHF exacerbation COPD excerbation aspiration pneumonia acute on chronic renal failure hyperkalemia currently afebrile, HD stable intubated sedated moderate am of secretions abg on 35% 7.44/46/55 creat 2.2 k 4.6 Suggest -neurochecks/seizure precautions -dc versed, start precedex, titrate to RASS -1 -vent support with lung protective therapy -inrease peep to 10, keep sat above 88%, pao2 above 55 -daily SAT/SBT -continue abx for now, can payton adorno if cxs -ve tomorrow -chest pt/pulm toilet -check echo -hold standing , lasix, pt with adeqaute urine out at this time -start tube feeds -keep glucose 140-180s -monitor ins/outs -replace lytes prn -gi/dvt ppx -please call eICU if condition changes -d/w Dr. Gillespie total ccm time 45 mins
--- NOTE | 2022-08-16 10:56 | PM.PN.1 ---
Subjective Subjective Interval history: 61 year old female intubated yesterday for hypercapnic respiratory failure presumed due to CHF exacerbation, possible aspiration as strawberry pieces were removed with intubation in the ER. Limited TTE pending today. Patient was alert with sedation vacation this morning, but became restless and anxious, breathing rapidly and had increased secretions. Decision made to not extubate today, placed back on sedation. PICC line placed this AM. Creatinine bumped with lots of urine output, standing lasix discontinued. Remains on zosyn for possible aspiration, also UTI noted on urinalysis. Cultures pending. Sedation changed to precedex, propofol instead of versed, and remains on fentanyl. Exam Vital Signs (past 8 hours): - 08/16/22 03:00 08/16/22 03:01 08/16/22 03:01 Temperature 98.1 F 98.1 F Pulse Rate 64 62 Respiratory Rate 18 27 H Blood Pressure 103/53 L Pulse Oximetry 95 94 08/16/22 03:30 08/16/22 04:00 08/16/22 04:00 Temperature 97.7 F 97.7 F Pulse Rate 64 61 Respiratory Rate 18 18 Blood Pressure 107/55 L Pulse Oximetry 95 94 08/16/22 05:00 08/16/22 05:00 08/16/22 06:00 Temperature 97.7 F Pulse Rate 60 Respiratory Rate 20 Blood Pressure 110/55 L 107/53 L Pulse Oximetry 95 08/16/22 06:00 08/16/22 07:00 08/16/22 07:00 Temperature 97.7 F 97.9 F Pulse Rate 57 L 56 L Respiratory Rate 22 18 Blood Pressure 105/53 L Pulse Oximetry 94 95 08/16/22 08:00 08/16/22 08:01 08/16/22 08:01 Temperature 98.1 F 98.1 F Pulse Rate 63 69 Respiratory Rate 27 H 31 H Blood Pressure 105/52 L Pulse Oximetry 91 89 L 08/16/22 08:40 08/16/22 09:00 08/16/22 09:00 Temperature 99.7 F H Pulse Rate 80 Respiratory Rate 26 H Blood Pressure 98/55 L Pulse Oximetry 91 08/16/22 10:00 08/16/22 10:01 08/16/22 10:01 Temperature 100.8 F H 100.8 F H Pulse Rate 69 69 Respiratory Rate 17 16 Blood Pressure 82/43 L Pulse Oximetry 89 L 89 L 08/16/22 10:06 08/16/22 10:06 08/16/22 10:07 Temperature 100.9 F H Pulse Rate 68 Respiratory Rate 16 Blood Pressure 77/38 L 82/45 L Pulse Oximetry 89 L 08/16/22 10:07 Temperature 100.8 F H Pulse Rate 72 Respiratory Rate 22 Blood Pressure Pulse Oximetry 91 Fraction of Inspired Oxygen 40 Oxygen Delivery Method Mechanical Ventilation Oxygen Flow Rate 15 Narrative Exam Narrative: GEN: intubated and sedated, morbidly obese HEENT: moist mucous membranes, pinpoint pupils, PERRL NECK: trachea midline, PULM: CTA b/l, no obvious rhonchi or rales or wheezing but fairly shallow respirations on vent. CV: RRR, no murmurs ABD: soft, nontender, nondistended, no organomegaly EXT: warm and well perfused, 1-2+ edema, left lower leg wound NEURO: intubated and sedated Objective Labs 08/16/22 04:10 08/16/22 04:10 Labs: Laboratory Results - last 24 hr 08/15/22 08/15/22 08/15/22 16:32 16:35 16:35 WBC 8.1 RBC 3.40 L Hgb 11.2 L Hct 35.4 L MCV 104.1 H MCH 32.8 MCHC 31.5 RDW 16.4 H Plt Count 227 Neut % (Auto) 72.2 Lymph % (Auto) 16.0 L Hook[place] % (Auto) 7.6 Eos % (Auto) 3.1 Baso % (Auto) 1.1 Neut # (Auto) 5800 Lymph # (Auto) 1300 [place]er # (Auto) 600 Eos # (Auto) 200 Baso # (Auto) 100 PT 12.7 INR 1.1 APTT 31 ABG pH 7.25 L* ABG pCO2 77.9 H* ABG pO2 68 L ABG HCO3 34 H ABG Total CO2 36 H ABG O2 Saturation 89 L ABG Base Excess 7.0 H FiO2 28 Sodium Potassium Chloride Carbon Dioxide BUN Creatinine Estimated GFR BUN/Creatinine Ratio Glucose Lactate Calcium Magnesium Total Bilirubin AST ALT Alkaline Phosphatase Total Creatine Kinase CK-MB (CK-2) CK-MB (CK-2) Rel Index Troponin I NT-Pro-B Natriuret Pep Total Protein Albumin Globulin Albumin/Globulin Ratio Lipase Procalcitonin Urine Color Urine Appearance Urine pH Ur Specific [place] Urine Protein Urine Glucose (UA) Urine Ketones Urine Occult Blood Urine Nitrate Urine Bilirubin Urine Urobilinogen Ur Leukocyte Esterase Urine RBC Urine WBC Triple Phos Crystals Urine Bacteria Ur Culture Indicated? Nasal Screen MRSA (PCR) Chlamy pneumoniae PCR Adenovirus (PCR) B. pertussis DNA (PCR) B.parapertussis DNA PCR Coronavirus OC43 (PCR) Coronavirus HKU1 (PCR) Coronavirus 229E (PCR) SARS-CoV-2 (PCR) Coronavirus NL63 (PCR) Human Metapneumovir PCR Influenza Type A (PCR) Influenza Type B (PCR) M. pneumoniae (PCR) Parainfluenza 1 (PCR) Parainfluenza 2 (PCR) Parainfluenza 3 (PCR) Parainfluenza 4 (PCR) RSV (PCR) Entero/Rhino (PCR) 08/15/22 08/15/22 08/15/22 16:35 16:35 17:11 WBC RBC Hgb Hct MCV MCH MCHC RDW Plt Count Neut % (Auto) Lymph % (Auto) [place] % (Auto) Eos % (Auto) Baso % (Auto) Neut # (Auto) Lymph # (Auto) [place] # (Auto) Eos # (Auto) Baso # (Auto) PT INR APTT ABG pH ABG pCO2 ABG pO2 ABG HCO3 ABG Total CO2 ABG O2 Saturation ABG Base Excess FiO2 Sodium 141 Potassium 5.7 H Chloride 103 Carbon Dioxide 34 H BUN 43 H Creatinine 2.37 H Estimated GFR 23 L BUN/Creatinine Ratio 18.1 Glucose 86 Lactate 0.6 L Calcium 9.6 Magnesium Total Bilirubin 0.4 AST 46 H ALT 27 Alkaline Phosphatase 42 Total Creatine Kinase 581 H CK-MB (CK-2) TNP CK-MB (CK-2) Rel Index TNP Troponin I 0.028 NT-Pro-B Natriuret Pep 6960 H Total Protein 7.3 Albumin 4.0 Globulin 3.3 Albumin/Globulin Ratio 1.2 Lipase 34 Procalcitonin 0.11 Urine Color Yellow Urine Appearance Cloudy Urine pH 8.0 Ur Specific [place] 1.015 Urine Protein 2+ H Urine Glucose (UA) Negative Urine Ketones Negative Urine Occult Blood Trace-intact Urine Nitrate Negative Urine Bilirubin Negative Urine Urobilinogen 0.2 Ur Leukocyte Esterase 1+ H Urine RBC None seen Urine WBC 5-10/hpf H Triple Phos Crystals Occasional Urine Bacteria Many (>30) H Ur Culture Indicated? Specimen cultured Nasal Screen MRSA (PCR) Chlamy pneumoniae PCR Adenovirus (PCR) B. pertussis DNA (PCR) B.parapertussis DNA PCR Coronavirus OC43 (PCR) Coronavirus HKU1 (PCR) Coronavirus 229E (PCR) SARS-CoV-2 (PCR) Coronavirus NL63 (PCR) Human Metapneumovir PCR Influenza Type A (PCR) Influenza Type B (PCR) M. pneumoniae (PCR) Parainfluenza 1 (PCR) Parainfluenza 2 (PCR) Parainfluenza 3 (PCR) Parainfluenza 4 (PCR) RSV (PCR) Entero/Rhino (PCR) 08/15/22 08/15/22 08/15/22 17:16 18:05 19:16 WBC RBC Hgb Hct MCV MCH MCHC RDW Plt Count Neut % (Auto) Lymph % (Auto) [place] % (Auto) Eos % (Auto) Baso % (Auto) Neut # (Auto) Lymph # (Auto) [place] # (Auto) Eos # (Auto) Baso # (Auto) PT INR APTT ABG pH 7.18 L* ABG pCO2 89.1 H* ABG pO2 86 ABG HCO3 34 H ABG Total CO2 36 H ABG O2 Saturation 93 L ABG Base Excess 5.0 H FiO2 40 Sodium 141 Potassium 6.4 H* Chloride 103 Carbon Dioxide 37 H BUN 44 H Creatinine 2.18 H Estimated GFR 25 L BUN/Creatinine Ratio 20.2 Glucose 80 Lactate Calcium 9.1 Magnesium Total Bilirubin AST ALT Alkaline Phosphatase Total Creatine Kinase CK-MB (CK-2) CK-MB (CK-2) Rel Index Troponin I 0.027 NT-Pro-B Natriuret Pep Total Protein Albumin Globulin Albumin/Globulin Ratio Lipase Procalcitonin Urine Color Urine Appearance Urine pH Ur Specific [place] Urine Protein Urine Glucose (UA) Urine Ketones Urine Occult Blood Urine Nitrate Urine Bilirubin Urine Urobilinogen Ur Leukocyte Esterase Urine RBC Urine WBC Triple Phos Crystals Urine Bacteria Ur Culture Indicated? Nasal Screen MRSA (PCR) Chlamy pneumoniae PCR Not detected Adenovirus (PCR) Not detected B. pertussis DNA (PCR) Not detected B.parapertussis DNA PCR Not detected Coronavirus OC43 (PCR) Not detected Coronavirus HKU1 (PCR) Not detected Coronavirus 229E (PCR) Not detected SARS-CoV-2 (PCR) Not detected Coronavirus NL63 (PCR) Not detected Human Metapneumovir PCR Not detected Influenza Type A (PCR) Not detected Influenza Type B (PCR) Not detected M. pneumoniae (PCR) Not detected Parainfluenza 1 (PCR) Not detected Parainfluenza 2 (PCR) Not detected Parainfluenza 3 (PCR) Not detected Parainfluenza 4 (PCR) Not detected RSV (PCR) Not detected Entero/Rhino (PCR) Not detected 08/15/22 08/15/22 08/15/22 20:10 22:05 23:39 WBC RBC Hgb Hct MCV MCH MCHC RDW Plt Count Neut % (Auto) Lymph % (Auto) [place] % (Auto) Eos % (Auto) Baso % (Auto) Neut # (Auto) Lymph # (Auto) [place] # (Auto) Eos # (Auto) Baso # (Auto) PT INR APTT ABG pH 7.27 L* ABG pCO2 73.2 H* ABG pO2 84 ABG HCO3 34 H ABG Total CO2 36 H ABG O2 Saturation 94 L ABG Base Excess 7.0 H FiO2 50 Sodium Potassium 4.7 D Chloride Carbon Dioxide BUN Creatinine Estimated GFR BUN/Creatinine Ratio Glucose Lactate Calcium Magnesium Total Bilirubin AST ALT Alkaline Phosphatase Total Creatine Kinase CK-MB (CK-2) CK-MB (CK-2) Rel Index Troponin I NT-Pro-B Natriuret Pep Total Protein Albumin Globulin Albumin/Globulin Ratio Lipase Procalcitonin Urine Color Urine Appearance Urine pH Ur Specific [place] Urine Protein Urine Glucose (UA) Urine Ketones Urine Occult Blood Urine Nitrate Urine Bilirubin Urine Urobilinogen Ur Leukocyte Esterase Urine RBC Urine WBC Triple Phos Crystals Urine Bacteria Ur Culture Indicated? Nasal Screen MRSA (PCR) Not detected Chlamy pneumoniae PCR Adenovirus (PCR) B. pertussis DNA (PCR) B.parapertussis DNA PCR Coronavirus OC43 (PCR) Coronavirus HKU1 (PCR) Coronavirus 229E (PCR) SARS-CoV-2 (PCR) Coronavirus NL63 (PCR) Human Metapneumovir PCR Influenza Type A (PCR) Influenza Type B (PCR) M. pneumoniae (PCR) Parainfluenza 1 (PCR) Parainfluenza 2 (PCR) Parainfluenza 3 (PCR) Parainfluenza 4 (PCR) RSV (PCR) Entero/Rhino (PCR) 08/16/22 08/16/22 08/16/22 04:10 04:10 04:36 WBC 7.5 RBC 3.44 L Hgb 11.4 L Hct 35.1 L MCV 102.1 H MCH 33.0 MCHC 32.4 RDW 16.2 H Plt Count 200 Neut % (Auto) 89.9 H Lymph % (Auto) 7.4 L [place] % (Auto) 1.7 L Eos % (Auto) 0.3 L Baso % (Auto) 0.7 Neut # (Auto) 6700 Lymph # (Auto) 600 L [place] # (Auto) 100 Eos # (Auto) 0 Baso # (Auto) 100 PT INR APTT ABG pH 7.44 ABG pCO2 46.9 H ABG pO2 55 L ABG HCO3 32 H ABG Total CO2 33 H ABG O2 Saturation 89 L ABG Base Excess 7.0 H FiO2 40 Sodium 142 Potassium 4.6 Chloride 99 Carbon Dioxide 36 H BUN 43 H Creatinine 2.25 H Estimated GFR 24 L BUN/Creatinine Ratio 19.1 Glucose 167 H Lactate Calcium 9.4 Magnesium 2.3 Total Bilirubin AST ALT Alkaline Phosphatase Total Creatine Kinase CK-MB (CK-2) CK-MB (CK-2) Rel Index Troponin I NT-Pro-B Natriuret Pep Total Protein Albumin Globulin Albumin/Globulin Ratio Lipase Procalcitonin Urine Color Urine Appearance Urine pH Ur Specific [place] Urine Protein Urine Glucose (UA) Urine Ketones Urine Occult Blood Urine Nitrate Urine Bilirubin Urine Urobilinogen Ur Leukocyte Esterase Urine RBC Urine WBC Triple Phos Crystals Urine Bacteria Ur Culture Indicated? Nasal Screen MRSA (PCR) Chlamy pneumoniae PCR Adenovirus (PCR) B. pertussis DNA (PCR) B.parapertussis DNA PCR Coronavirus OC43 (PCR) Coronavirus HKU1 (PCR) Coronavirus 229E (PCR) SARS-CoV-2 (PCR) Coronavirus NL63 (PCR) Human Metapneumovir PCR Influenza Type A (PCR) Influenza Type B (PCR) M. pneumoniae (PCR) Parainfluenza 1 (PCR) Parainfluenza 2 (PCR) Parainfluenza 3 (PCR) Parainfluenza 4 (PCR) RSV (PCR) Entero/Rhino (PCR) PFSH Medical History Chronic hypoxemic respiratory failure COPD (chronic obstructive pulmonary disease) DM2 (diabetes mellitus, type 2) HTN (hypertension) Obesity PONCE (obstructive sleep apnea) Systolic and diastolic CHF, chronic Thyroiditis Surgical History S/P hernia surgery Family History Mother No pertinent past medical history Father No pertinent past medical history Social History household members: other Smoking Status: Former smoker Assessment & Plan Assessment & Plan narrative: 1. Acute hypercapneic/hypoxemic respiratory failure, with chronic hypoxemic respiratory failure -suspect etiology most likely due to chf -however could be ponce/copd exacerbation with hypercapnea, and possible aspiration with strawberry pieces noted when intubating. -for now treat broadly with antibiotics, no vancomycin given negative MRSA swab. Low threshold to discontinue therapy, may narrow to ceftriaxone depending on urine cultures (grossly + UA on admit) -continue with steroids, and duonebs -large diuresis with initial therapy, now intermittent / prn lasix dosing given cr. bump today and large output. -sbt daily -appreciate co pilot consult 2. Acute CHF exacerbation -presents with lower extremity edema and elevated bnp -last echo showed preserved ef, limited TTE pending -trops indeterminate x2 -continue lasix prn as noted above -goal negative 2-3L negative daily 3. Possible aspiration pneumonia -per ED staff patient had possible food particles suctioned from et tube -will order broad antibiotics with zosyn, azithromycin -follow up sputum cultures 4. BLANCA -suspect secondary chf exacerbation -has philippe to monitor urine output -ct abdomen showed no evidence of obstruction 5. Possible hyperkalemia -potassium noted to be 6.4, but showed slight hemolysis. May be related to BLANCA. -did get insulin in ED and is now improved. 5. Acute cystitis -ua showed positive bacteria -follow up urine cultures -on antibiotics as above 6. Leg wound -swabbed in ED -follow up cultures 7. Type 2 Diabetes on insulin -on 22U BID of lantus -for now check glucose q6h -will order lantus 10u BID for now, medium dose insulin sliding scale 8. Morbid obesity -BMI >50, likely contributing to respiratory failure -dietitian evaluation 9. Hypertension -hold oral antihypertensives for now 10. Hypothyroidism -continue synthroid CODE: Full Proxy: Roxy Berry, daughter I spent 35 minutes providing critical care management this patient. This excludes time spent in performing separately billed procedures. Quality VTE Deep Vein Thrombosis/Pulmonary Embolism Present on Admission: No
[2022-08-16] MEDS: NOREPINEPHRINE BITARTRATE/D5W 4 MG/250 ML PLAST..BAG 30 MG IV ×2 (11:18→11:25)
[2022-08-16] MEDS: SODIUM CHLORIDE 0.9% 500 ML 1000 ML IV (11:20)
[2022-08-16] MEDS: PIPERACILLIN/TAZO 4.5 GM in SODIUM CHLORIDE 0.9% 100 ML IV ×2 (11:25→17:58)
[2022-08-16] MEDS: propofoL 1,000 MG/100 ML VIAL 3.858 MG IV (11:26)
[2022-08-16] MEDS: dexmedeTOMIDine in 0.9 % NaCL 400 MCG/100 ML PLAST..BAG 6.43 MCG IV ×2 (11:26→23:30)
--- NOTE | 2022-08-16 11:51 | CM.DANOTE ---
DCP: Case received, EMR reviewed. Unable to meet with patient, she is currently intubated, and have left two messages with [facility] to call back. Completed DCP assessment based upon information currently available. Patient is a 61 year old female who admitted yesterday evening to the care of the hospitalist team. PCP: Dr. Rodgers. Payer: confirmed: [employer]. Patient came to the hospital via ambulance secondary to having increased difficulty breathing. Patient has history of COPD, and is on 2 liters of oxygen at baseline. Notes also indicate that patient uses CPAP at home. Patient had been here in May with similar presentation, and was treated for pneumonia, CHF. Patient was admitted for acute hypercapneic/hypoxemic respiratory failure, acute CHF exacerbation, possible aspiration pneumonia, BLANCA. Patient is currently intubated. Attempted to call [facility] twice for information, have not returned call. Confirmed that patient does reside at their facility, ICU nurse, Lakesha, confirmed per daughter, Roxy Berry, who is main contact. Patient is on baseline oxygen at their facility. P: DCP to continue to follow closely. Have calls out to [facility]. Patient most likely will return to their facility when stable. Noted that she has [employer], if she did need skilled, would need to go to contracted facilities first, and be denied, before [facility] could put in referral. Lili Pierre RN/Shipwright Helper Discharge Planning/Care Management CM Discharge Assessment Start: 08/16/22 11:37 Freq: Status: Active Protocol: Document 08/16/22 11:46 (Rec: 08/16/22 11:47 [id number]) Discharge Planning Assessment Advance Directives? No History Provided By Medical Record Prior Living Arrangements Assisted Living Household Members other Discharge Plan Home Transportation Arrangement Facility Referrals Initiated None needed Additional Comment Patent is currently intubated Document 08/16/22 11:49 (Rec: 08/16/22 11:51 [id number]) Discharge Planning Assessment Assigned Fire Alarm Technician Lili Pierre RN/Shipwright Helper Advance Directives? No History Provided By Medical Record Prior Living Arrangements Assisted Living Household Members other Type of transporation used prior to Relies on Others admit Facility Name Admitted From: [facility] Independent with ADL's Yes Is patient alert and oriented? Yes Needs Assistance With Bathing,Meal Prep,Managing Medications,Home Chores / Shopping Caregiver for Another No DME Already Rented / Owned Wheelchair,FWW / Walker,Oxygen Barriers to Discharge No Comment Lives at [facility], but have not been able to contact anyone at their facility, they have not returned calls. Discharge Plan Assisted Living Facility Transportation Arrangement Facility Referrals Initiated None needed Additional Comment Patent is currently intubated Whiteboard Updated in Patient Room with No name and ext. # of Fire Alarm Technician Review Status In Process Next Review Type Continued Stay Review
[2022-08-16] MEDS: HEPARIN 5,000 UNIT/ML VIAL 7500 UNIT SUBCUT ×2 (12:51→21:16)
--- NOTE | 2022-08-16 14:28 | DI.RAD.S_ITS ---
PROCEDURE: XR CHEST 1V INDICATIONS: P CXR 1V needed for OG replacement, confirm placement TECHNIQUE: One view of the chest was acquired. COMPARISON: [facility], CR, XR CHEST FOR PICC 1V, 08/16/2022, 9:16. FINDINGS: Surgical changes and devices: An orogastric tube is present and is projected over the expected course of the esophagus and stomach. Endotracheal tube is unchanged. Lungs and pleura: Consolidative radiopacities are redemonstrated at the left lung base. There is a moderate-sized left effusion, as before. Mediastinum: Mediastinal contours appear normal. Heart size is normal. Bones and chest wall: No suspicious bony lesions. Overlying soft tissues appear unremarkable. IMPRESSION: OG tube projected over the expected location of the gastrointestinal tract. Dictated by: Zuly Anderson M.D. on 08/16/2022 at 15:24 Approved by: Zuly Anderson M.D. on 08/16/2022 at 15:24
--- NOTE | 2022-08-16 14:54 | DIET.CONS ---
Dietary Consultation Note Admission Date: 08/15/2022 21:58 Assessment: 61y F admitted for SOB intubated in ED due to acute respiratory failure referred to nutrition for TF reccs. Pt admitted May of this year for similar. Pt on 5mcg/kg propofol. Pt initiated on continuous TF via OG of formula of Glucerna 1.2 starting at 10mL/h per hospitalist and metal roaster. Recc slow titration to goal, 10mL q12h until reaching goal feeding rate of 40mL/h. Recc 250mL free water flushes q6h. HOB >30 degrees at all times. Feed plus flushes provide 1152kcals (15kcal/kg per stage 3 obesity), 58g PRO ( 0.8g/kg per renal), 110g CHO, 778mL feed water and 1,000mL free water flushes. Ht: 160 cm Wt: 128.5 kg BMI: 50.2 Last BM: () MNA: Matt Score: 17 Diet: 08/16/22 Lunch Tube Feeding Diet Diet Modifications: TF Supplement type: Glucerna 1.2 ashley TF mode of delivery: Continuous Starting flow rate mL/hr: 10 Flow rate goal mL/hr: 40 Titration Schedule to reach Goal Rate: 10ml/hr q shift increase Max total daily volume in mL: 2,200 Free fluid: 250 Free Water Frequency: Q6H Nutrition Percent Meal Consumed pt is NPO 08/16/22 11:00 Patient receiving TPN/PPN/TF Yes 08/16/22 14:48 Type of Feeding Tube NG/OG 08/16/22 14:51 Type of Feeding Tube NG/OG 08/16/22 14:48 Labs: RBC 3.44 X10^6/uL (4.0-5.2) L 08/16/22 04:10 Hgb 11.4 g/dL (12.0-16.0) L 08/16/22 04:10 Hct 35.1 % (36-46) L 08/16/22 04:10 Creatinine 2.25 mg/dL (0.52-1.04) H 08/16/22 04:10 Lactate 0.6 mmol/L (0.7-2.1) L 08/15/22 16:35 NT-Pro-B Natriuret Pep 6960 pg/mL (<125) H 08/15/22 16:35 Electronically Signed by: Damaris Aburto 08/16/22 14:54 Clinical Dietitian [address] [id number]
[2022-08-16] MEDS: ACETAMINOPHEN SUSP 650 MG/20.3 ML UDC PO (15:26)
[2022-08-16] MEDS: INSULIN LISPRO 100 UNIT/ML 3ML VIAL SUBCUT ×2 (15:37→21:16)
--- NOTE | 2022-08-16 18:37 | PC.NURSE ---
Sedation vacation started at 0730, pt awake and able to respond to yes and no questions, pt because very tremulous with c/o being cold, warm blankets applied, pt still tremulous, bear hugger blanket applied. Pt very agitated turned sedation back on. Updated Dr Gillespie, who agreed. Rounds with Dr Talamantes had us changing sedation to Fentanyl, precedex and Propofol, adding Norepi for low BP, and tube feeding. Vent settings FiO2 28% FiO2 350 PEEP 10 RR16. PICC line placed as ordered. Q2H turns, pt received tylenol for T max 101.3. Bed low and locked, will continue to monitor
[2022-08-16] MEDS: NOREPINEPHRINE BITARTRATE/D5W 4 MG/250 ML PLAST..BAG 18.75 MG IV (19:51)
--- NOTE | 2022-08-16 20:34 | PM.ICURNDS ---
- Date Patient Seen: 08/16/22 Time Patient Seen: 20:34 :: This patient was seen via real time interactive two-way audiovisual telecommunication. Note: patient see with bedside nurse. no acute changes since am rounds. was started on small dose levophed which should be weaned off shortly. started on feeds, tolerated adequate urine output remains suggest to continue current care, dc propofol by am if possible, keep precedex/fentanyl
[2022-08-16] MEDS: INSULIN GLARGINE 100 UNIT/ML 3ML PEN 10 UNIT SUBCUT (21:18)
[2022-08-16] MEDS: fentaNYL 1,000 MCG in DEXTROSE 5% IN WATER 230 ML 12.859 MCG IV (22:13)
[2022-08-16] MEDS: AZITHROMYCIN 500 MG in DEXTROSE 5% IN WATER 250 ML 250 MG IV (23:33)
[2022-08-17] VITALS (69 sets, daily range): BP systolic 88–137; BP diastolic 52–81; PULSE 50–76; RESP 12–40; TEMP 29–39.2; O2SAT 85–99
[2022-08-17] MEDS: methylPREDNISolone 125 MG/2 ML VIAL 60 MG IV ×2 (00:21→12:49)
[2022-08-17] MEDS: ACETAMINOPHEN SUSP 650 MG/20.3 ML UDC PO (01:19)
[2022-08-17] MEDS: PIPERACILLIN/TAZO 4.5 GM in SODIUM CHLORIDE 0.9% 100 ML IV ×3 (02:09→18:18)
[2022-08-17] MEDS: HEPARIN 5,000 UNIT/ML VIAL 7500 UNIT SUBCUT ×3 (04:27→20:50)
--- NOTE | 2022-08-17 06:00 | DI.RAD.S_ITS ---
PROCEDURE: XR CHEST 1V INDICATIONS: fever, secretions, intubated TECHNIQUE: One view of the chest was acquired. COMPARISON: [facility], CR, XR CHEST 1V, 08/15/2022, 18:38. [facility], CR, XR CHEST FOR PICC 1V, 08/16/2022, 9:16. [facility], CR, XR CHEST 1V, 08/16/2022, 14:27. FINDINGS: Surgical changes and devices: There is an endotracheal tube 0.9 cm above ron. A nasogastric tube in the stomach. There is a left PICC with the tip in the area of SVC. Lungs and pleura: Moderate left pleural effusion with left basilar consolidation or atelectasis. Diffuse increased pulmonary vascularity. No pneumothorax. Mediastinum: Mediastinal contours appear normal. Heart size is moderately increased. Bones and chest wall: No suspicious bony lesions. Overlying soft tissues appear unremarkable. IMPRESSION: 1. Moderate left pleural effusion with left basilar consolidation or atelectasis. 2. Diffusely increased pulmonary vascularity with cardiomegaly suggesting superimposed CHF. 3. Endotracheal tube, nasogastric tube and left PICC as described. Dictated by: Cate Gooden M.D. on 08/17/2022 at 8:09 Approved by: Cate Gooden M.D. on 08/17/2022 at 8:11
--- NOTE | 2022-08-17 06:08 | PC.NURSE ---
Patient remained stable over night. able to titrate propofol and levophed off completely. has remained RASS -2 and normotensive. TMAX 101.9, tylenol given. Q6 BG check reviled BG of 378, Hospitalist notified. [facility] bath done this shift.
[2022-08-17] MEDS: ALBUTEROL/IPRATROPIUM 3 ML AMPUL INH ×4 (07:16→17:42)
[2022-08-17] MEDS: INSULIN LISPRO 100 UNIT/ML 3ML VIAL SUBCUT ×3 (09:27→20:51)
[2022-08-17] MEDS: INSULIN GLARGINE 100 UNIT/ML 3ML PEN 15 UNIT SUBCUT ×2 (09:28→20:34)
[2022-08-17] MEDS: PANTOPRAZOLE 40 MG VIAL IV (09:29)
--- NOTE | 2022-08-17 10:03 | PM.PN.EICU ---
Subjective Subjective IF CAMERA ACTIVATED, patient seen via real-time interactive audiovisual communication: Camera activated Consent obtained for tele-tanker serviceman care: Yes Patient Location: ICU Provider location (State): [place] Other participants/roles: Dr. Gillespie Interval history: no acute events overnight had fever, HD stable Current Medications Current Medications Medications: Home Medications acetaminophen 325 mg tablet (Tylenol) 650 mg PO TID 05/25/22 [History Confirmed 08/15/22] aspirin 81 mg tablet,delayed release 81 mg PO DAILY 05/25/22 [History Confirmed 08/15/22] budesonide-formoterol HFA 160 mcg-4.5 mcg/actuation aerosol inhaler 2 puff inhalation Q4H PRN Wheezing 05/25/22 [History Confirmed 08/15/22] bupropion HCl 150 mg tablet,12 hr sustained-release 150 mg PO BEDTIME 05/25/22 [History Confirmed 08/15/22] carvedilol 3.125 mg tablet 3.125 mg PO BID 05/25/22 [History Confirmed 08/15/22] cyanocobalamin (vitamin B-12) 500 mcg tablet 500 mcg PO DAILY 05/25/22 [History Confirmed 08/15/22] fenofibrate 160 mg tablet 160 mg PO DAILY 05/25/22 [History Confirmed 08/15/22] ferrous sulfate 325 mg (65 mg iron) tablet 325 mg PO DAILY 05/25/22 [History Confirmed 08/15/22] fluoxetine 20 mg tablet 20 mg PO DAILY 05/25/22 [History Confirmed 08/15/22] fluticasone propionate 50 mcg/actuation nasal spray,suspension 2 spray intranasal DAILY 05/25/22 [History Confirmed 08/15/22] gabapentin 300 mg capsule 300 mg PO BEDTIME 05/25/22 [History Confirmed 08/15/22] insulin glargine 100 unit/mL (3 mL) subcutaneous pen 22 unit SUBCUT BID 05/25/22 [History Confirmed 08/16/22] insulin lispro 100 unit/mL subcutaneous solution (Humalog U-100 Insulin) 4 unit SUBCUT TIDWM 05/25/22 [History Confirmed 08/16/22] lidocaine 5 % topical patch 1 patch topical DAILY 05/25/22 [History Confirmed 08/15/22] loratadine 10 mg tablet 10 mg PO DAILY 05/25/22 [History Confirmed 08/15/22] magnesium oxide 200 mg PO BID 05/25/22 [History Confirmed 08/15/22] meclizine 25 mg tablet 25 mg PO Q8HR PRN Dizziness 05/25/22 [History Confirmed 08/15/22] montelukast 10 mg tablet 10 mg PO DAILY 05/25/22 [History Confirmed 08/15/22] nystatin 100,000 unit/gram topical powder 1 applic topical BID PRN Rash 05/25/22 [History Confirmed 08/16/22] ondansetron 4 mg disintegrating tablet 4 mg PO Q8H PRN Nausea 05/25/22 [History Confirmed 08/15/22] rosuvastatin 40 mg tablet 40 mg PO DAILY 05/25/22 [History Confirmed 08/15/22] sennosides 8.6 mg tablet (senna) 17.2 mg PO BEDTIME 05/25/22 [History Confirmed 08/15/22] tiotropium bromide 18 mcg capsule with inhalation device (Spiriva with HandiHaler) 1 cap inhalation DAILY 05/25/22 [History Confirmed 08/15/22] trazodone 50 mg tablet 50 mg PO BEDTIME 05/25/22 [History Confirmed 08/15/22] albuterol sulfate 90 mcg/actuation aerosol inhaler 4 puff inhalation Q4H PRN Shortness Of Breath Or Wheezing 08/15/22 [History Confirmed 08/15/22] levothyroxine 175 mcg tablet 175 mcg PO DAILY 08/15/22 [History Confirmed 08/15/22] potassium chloride 10 mEq tablet,extended release 10 meq PO DAILY 08/15/22 [History Confirmed 08/15/22] torsemide 10 mg tablet 20 mg PO BID 08/15/22 [History Confirmed 08/16/22] Visit Medications (administered) Generic Name Dose Route Start Last Admin Trade Name Freq PRN Reason Stop Dose Admin Acetaminophen 650 mg 08/16/22 14:49 08/17/22 01:19 Acetaminophen Susp 650 Mg/20.3 Ml Udc PO 650 mg Q6HR PRN Administration Fever/Mild Pain (1-3) Albuterol/Ipratropium 3 ml 08/15/22 23:46 08/17/22 07:16 Albuterol/Ipratropium 3 Ml Ampul INH 3 ml RTQ4HR JAY JAY Administration Fentanyl 50 mcg 08/15/22 18:17 08/15/22 18:54 Fentanyl 100 Mcg/2 Ml Inj IV 50 mcg Q30MIN PRN Administration Severe Pain or agitation Heparin Sodium (Porcine) 7,500 unit 08/16/22 12:00 08/17/22 04:27 Heparin 5,000 Unit/Ml Vial SUBCUT 7,500 unit Q8H JAY JAY Administration Fentanyl 1,000 mcg/ Dextrose 250 mls @ 22.504 mls/hr 08/15/22 18:30 08/17/22 07:44 IV 0 mcg/kg/hr TITRATE JAY JAY 0 mls/hr Titration Protocol 0.7 MCG/KG/HR Azithromycin 500 mg/ Dextrose 250 mls @ 250 mls/hr 08/15/22 23:46 08/17/22 00:43 IV Infused Q24H JAY JAY Infusion Piperacillin Sod/Tazobactam 100 mls @ 25 mls/hr 08/16/22 10:00 08/17/22 06:30 Sod 4.5 gm/ Sodium Chloride IV Infused Q8H [facility] Infusion dexmedeTOMIDine in 0.9 % NaCL 400 mcg in 100 mls @ 6.43 mls/hr 08/16/22 09:45 08/16/22 23:30 Precedex IV 0.2 mcg/kg/hr TITRATE JAY JAY 6.43 mls/hr Administration Protocol 0.2 MCG/KG/HR Propofol 1,000 mg in 100 mls @ 3.858 mls/hr 08/16/22 09:45 08/17/22 05:27 Propofol IV 0 mcg/kg/min TITRATE JAY JAY 0 mls/hr Titration Protocol 5 MCG/KG/MIN NOREPINEPHRINE BITARTRATE/D5W 4 mg in 250 mls @ 30 mls/hr 08/16/22 11:15 08/17/22 05:27 Levophed IV 0 mcg/min TITRATE JAY JAY 0 mls/hr Titration Protocol 8 MCG/MIN Insulin Glargine 15 unit 08/17/22 09:00 08/17/22 09:28 Insulin Glargine 100 Unit/Ml 3ml Pen SUBCUT 15 unit BID JAY JAY Administration Insulin Human Lispro 0 unit 08/17/22 09:00 08/17/22 09:27 Insulin Lispro 100 Unit/Ml 3ml Vial SUBCUT 7 unit Q6H [facility] Administration Protocol Methylprednisolone 60 mg 08/15/22 23:46 08/17/22 00:21 Methylprednisolone 125 Mg/2 Ml Vial IV 60 mg Q12H JAY JAY Administration Montelukast Sodium 10 mg 08/16/22 09:00 08/17/22 09:29 Montelukast 10 Mg Tablet PO Not Given DAILY JAY JAY Pantoprazole Sodium 40 mg 08/17/22 09:00 08/17/22 09:29 Pantoprazole 40 Mg Vial IV 40 mg DAILY JAY JAY Administration Objective Ventilator Parameters: Ventilator Settings FiO2 28 RT Vent Frequency 16 Ventilator Tidal Volume 350 Exhaled Vt/kg IBW 8 Positive End Expiratory 10 Pressure Inspiratory Phase Time 0.9 I:E Ratio 1:2.7 Patient Position HOB >= 30 degrees Labs 08/16/22 04:10 08/16/22 04:10 Exam Vital Signs (past 8 hours): - 08/17/22 02:30 08/17/22 02:30 08/17/22 03:00 Temperature 101.7 F H Pulse Rate 62 Respiratory Rate 17 Blood Pressure 123/72 124/73 Pulse Oximetry 97 Oxygen Delivery Method 08/17/22 03:00 08/17/22 03:30 08/17/22 03:30 Temperature 101.8 F H 101.8 F H Pulse Rate 61 59 L Respiratory Rate 17 17 Blood Pressure 120/65 Pulse Oximetry 96 95 Oxygen Delivery Method 08/17/22 04:00 08/17/22 04:00 08/17/22 04:26 Temperature 101.7 F H 101.7 F H Pulse Rate 59 L Respiratory Rate 16 Blood Pressure 128/69 Pulse Oximetry 95 Oxygen Delivery Method 08/17/22 04:30 08/17/22 04:30 08/17/22 05:00 Temperature 101.7 F H Pulse Rate 59 L Respiratory Rate 17 Blood Pressure 121/65 128/70 Pulse Oximetry 95 Oxygen Delivery Method 08/17/22 05:00 08/17/22 05:05 08/17/22 05:05 Temperature 101.7 F H 101.7 F H Pulse Rate 58 L 58 L Respiratory Rate 18 17 Blood Pressure 116/65 Pulse Oximetry 96 93 Oxygen Delivery Method 08/17/22 05:10 08/17/22 05:10 08/17/22 05:19 Temperature 101.5 F H 101.5 F H Pulse Rate 57 L 55 L Respiratory Rate 18 17 Blood Pressure 109/60 Pulse Oximetry 93 93 Oxygen Delivery Method 08/17/22 05:19 08/17/22 05:30 08/17/22 05:30 Temperature 101.5 F H Pulse Rate 55 L Respiratory Rate 16 Blood Pressure 110/59 L 107/58 L Pulse Oximetry 93 Oxygen Delivery Method 08/17/22 06:00 08/17/22 06:00 08/17/22 07:25 Temperature 100.9 F H Pulse Rate 53 L Respiratory Rate 17 Blood Pressure 110/56 L Pulse Oximetry 93 94 Oxygen Delivery Method Mechanical Ventilation 08/17/22 06:30 08/17/22 06:30 08/17/22 06:56 Temperature 100.6 F H 100.2 F H Pulse Rate 52 L 50 L Respiratory Rate 16 16 Blood Pressure 116/62 Pulse Oximetry 93 93 Oxygen Delivery Method 08/17/22 06:56 08/17/22 07:00 08/17/22 07:00 Temperature 100.2 F H Pulse Rate 50 L Respiratory Rate 16 Blood Pressure 124/58 L 117/62 Pulse Oximetry 94 Oxygen Delivery Method 08/17/22 07:31 08/17/22 07:31 08/17/22 08:00 Temperature 100.0 F H Pulse Rate 51 L Respiratory Rate 16 Blood Pressure 113/57 L 115/56 L Pulse Oximetry 91 Oxygen Delivery Method 08/17/22 08:00 08/17/22 08:30 08/17/22 08:30 Temperature 99.9 F H 99.5 F Pulse Rate 51 L 51 L Respiratory Rate 16 16 Blood Pressure 123/56 L Pulse Oximetry 91 92 Oxygen Delivery Method 08/17/22 09:00 08/17/22 09:00 08/17/22 09:31 Temperature 99.5 F 99.3 F Pulse Rate 51 L 56 L Respiratory Rate 16 26 H Blood Pressure 120/59 L Pulse Oximetry 92 93 Oxygen Delivery Method 08/17/22 09:31 Temperature Pulse Rate Respiratory Rate Blood Pressure 119/68 Pulse Oximetry Oxygen Delivery Method Fraction of Inspired Oxygen 35 SaO2/FiO2 Ratio 257 Oxygen Delivery Method Mechanical Ventilation Oxygen Flow Rate 15 Quality TeleICU VTE Deep Vein Thrombosis/Pulmonary Embolism Present on Admission: No Assessment & Plan Assessment & Plan narrative: patient seen on video, discussed with bedside nurse and provider Dr. Gillespie chart/labs/imaging reviewed no acute events overnight 61 year old female admitted to ICU with acute mixed resp failure CHF exacerbation COPD excerbation aspiration pneumonia acute on chronic renal failure hyperkalemia currently afebrile, HD stable, off pressors intubated, alert awake follows commands on SBT no secretions labx pending cxr- congestion, left small effusion Suggest -neurochecks/seizure precautions -precedex as needed, rass -1, if bradycardia, dc -vent support with lung protective therapy --daily SAT/SBT -wean to extubate to bipapa/high flow -consider US of left lung and thoracenesis -continue abx, check final cxs, would keep had fever last night -chest pt/pulm toilet -check echo, results pending -diuretics prn, check bmp first -continue tube feeds -keep glucose 140-180s -monitor ins/outs -replace lytes prn -gi/dvt ppx -please call eICU if condition changes -d/w Dr. Gillespie total ccm time 45 mins
[2022-08-17 10:07] LABS: Add Manual Diff / Slide Review NO; Basophils Absolute Auto 0 /uL (0-100); Basophils Percent Auto 0.6 % (0-2); Eosinophils Absolute Auto 0 /uL (0-450); Hematocrit 35.8 % (36-46); Hemoglobin 11.7 g/dL (12.0-16.0); Lymphocytes Absolute Auto 700 /uL (1100-4500); Lymphocytes Percent Auto 8.7 % (25-40); Mean Corpuscular HGB Conc 32.6 % (30-36); Mean Corpuscular Hemoglobin 32.7 PG (26-34); Mean Corpuscular Volume 100.1 fL (80-100); Monocytes Absolute Auto 400 /uL (0-900); Monocytes Percent Auto 4.6 % (3-14); Neutrophils Absolute Auto 7000 /uL (1500-7000); Neutrophils Percent Auto 86.1 % (50-75); Platelet Count 172 X10^3/uL (150-400); Red Blood Cell Count 3.58 X10^6/uL (4.0-5.2); Red Cell Distribution Width 16.1 % (11.6-14.8); White Blood Cell Count 8.1 X10^3/uL (4.5-11.0)
[2022-08-17 10:15] LABS: Albumin 3.6 g/dL (3.5-5.0); Albumin Globulin Ratio 1.2 (1.0-2.8); Alkaline Phosphatase 38 U/L (38-126); BUN Creatinine Ratio 25.1 (6-22); Bilirubin Total 0.7 mg/dL (0.2-1.3); Blood Urea Nitrogen 52 mg/dL (7-17); Calcium 8.9 mg/dL (8.4-10.2); Carbon Dioxide 32 mmol/L (22-32); Chloride 98 mmol/L (98-107); Estimated Glomerular Filt Rate 27 mL/min (>60); Glucose 322 mg/dL (80-110); HEMOLYSIS < 15 (0-50); Magnesium 2.2 mg/dL (1.6-2.3); Potassium 4.7 mmol/L (3.4-5.1); Sodium 136 mmol/L (137-145); Total Protein 6.6 g/dL (6.3-8.2)
[2022-08-17 10:22] LABS: Alanine Aminotransferase 1193 IU/L (<35)
[2022-08-17] MEDS: dexmedeTOMIDine in 0.9 % NaCL 400 MCG/100 ML PLAST..BAG 16.074 MCG IV ×2 (10:37→17:05)
--- NOTE | 2022-08-17 10:40 | DI.US.S_ITS ---
PROCEDURE: US ABDOMEN LIMITED INDICATIONS: ELEVATED TRANSAMINASE LEVELS TECHNIQUE: Real-time scanning was performed of the abdominal and retroperitoneal organs, with image documentation. COMPARISON: [facility], CT, CT KIDNEY URETER BLADDER (KUB), 08/15/2022, 19:01. [facility], US, US ABDOMEN LIMITED, 05/26/2022, 11:57. FINDINGS: This is a limited study given patient body habitus. Liver: The liver measures 26.7 cm in length. There is a hyperechoic 4.3 x 2.7 x 2.2 cm lesion within the right lower lobe. This previously measured 3.8 x 2.0 x 1.7 cm on the comparison study dated May 26, 2022. Gallbladder: Focal wall thickening of the gallbladder is redemonstrated and has a similar appearance to the comparison ultrasound dated May 26, 2022. There is a subtle hand of ring down artifact raising the suspicion for adenomyomatosis. No sludge or stones. No sonographic Cruz sign. Biliary ducts: Intrahepatic bile ducts are non-dilated. Extrahepatic bile duct caliber measures 4.0 mm. Normal is 6-7 mm or less in diameter, or 10 mm or less post-cholecystectomy. Pancreas: Visualized portions of the pancreas are sonographically normal. The body and tail of the pancreas are poorly characterized. IMPRESSION: 1. Limited study given large patient body habitus. 2. Focal gallbladder wall thickening which is likely similar to the prior study. Questionable ring down artifact is present suggesting adenomyomatosis. However, acute cholecystitis cannot be excluded. Please correlate with physical exam findings and laboratory values. Sonographic findings are equivocal for acute cholecystitis. 3. Hyperechoic region within the right lobe of the liver raising the suspicion for a hepatic hemangioma. If further characterization is warranted, multiphase hepatic mass protocol CT could be used. Alternatively, follow-up ultrasound in 3, 6, and 12 months is recommended. It is unclear whether there is a true change in size from the prior study or if this simply represents variation between ultrasound scanning technique. Dictated by: Zuly Anderson M.D. on 08/17/2022 at 15:54 Approved by: Zuly Anderson M.D. on 08/17/2022 at 16:03
[2022-08-17 10:59] LABS: HCO3 ABG 30 mmol/L (23-27); Oxygen Saturation ABG 94 % (95-100); PO2 ABG 64 mmHg (80-100); TCO2 ABG 31 mmol/L (23-27); pH ABG 7.49 (7.35-7.45)
[2022-08-17 11:00] LABS: Fractionated Inspired Oxygen 30
--- NOTE | 2022-08-17 11:01 | PM.PN.1 ---
Subjective Subjective Interval history: 61 year old female intubated yesterday for hypercapnic respiratory failure presumed due to CHF exacerbation, possible aspiration as strawberry pieces were removed with intubation in the ER. Limited TTE with EF of 30%, similar to prior and no significant changes. Did well with sedation vacation this morning, labs improved, and patient was extubated about a half an hour ago to BiPAP. Significant transaminase elevations on labs, possibe DILI, ordered for RUQ ultrasound with ? pancreatitis seen on CT imaging, no abdominal pain but has been febrile. Exam Vital Signs (past 8 hours): - 08/17/22 03:30 08/17/22 03:30 08/17/22 04:00 Temperature 101.8 F H Pulse Rate 59 L Respiratory Rate 17 Blood Pressure 120/65 128/69 Pulse Oximetry 95 Oxygen Delivery Method 08/17/22 04:00 08/17/22 04:26 08/17/22 04:30 Temperature 101.7 F H 101.7 F H 101.7 F H Pulse Rate 59 L 59 L Respiratory Rate 16 17 Blood Pressure Pulse Oximetry 95 95 Oxygen Delivery Method 08/17/22 04:30 08/17/22 05:00 08/17/22 05:00 Temperature 101.7 F H Pulse Rate 58 L Respiratory Rate 18 Blood Pressure 121/65 128/70 Pulse Oximetry 96 Oxygen Delivery Method 08/17/22 05:05 08/17/22 05:05 08/17/22 05:10 Temperature 101.7 F H Pulse Rate 58 L Respiratory Rate 17 Blood Pressure 116/65 109/60 Pulse Oximetry 93 Oxygen Delivery Method 08/17/22 05:10 08/17/22 05:19 08/17/22 05:19 Temperature 101.5 F H 101.5 F H Pulse Rate 57 L 55 L Respiratory Rate 18 17 Blood Pressure 110/59 L Pulse Oximetry 93 93 Oxygen Delivery Method 08/17/22 05:30 08/17/22 05:30 08/17/22 06:00 Temperature 101.5 F H Pulse Rate 55 L Respiratory Rate 16 Blood Pressure 107/58 L 110/56 L Pulse Oximetry 93 Oxygen Delivery Method 08/17/22 06:00 08/17/22 07:25 08/17/22 06:30 Temperature 100.9 F H 100.6 F H Pulse Rate 53 L 52 L Respiratory Rate 17 16 Blood Pressure Pulse Oximetry 93 94 93 Oxygen Delivery Method Mechanical Ventilation 08/17/22 06:30 08/17/22 06:56 08/17/22 06:56 Temperature 100.2 F H Pulse Rate 50 L Respiratory Rate 16 Blood Pressure 116/62 124/58 L Pulse Oximetry 93 Oxygen Delivery Method 08/17/22 07:00 08/17/22 07:00 08/17/22 07:31 Temperature 100.2 F H 100.0 F H Pulse Rate 50 L 51 L Respiratory Rate 16 16 Blood Pressure 117/62 Pulse Oximetry 94 91 Oxygen Delivery Method 08/17/22 07:31 08/17/22 08:00 08/17/22 08:00 Temperature 99.9 F H Pulse Rate 51 L Respiratory Rate 16 Blood Pressure 113/57 L 115/56 L Pulse Oximetry 91 Oxygen Delivery Method 08/17/22 08:30 08/17/22 08:30 08/17/22 09:00 Temperature 99.5 F Pulse Rate 51 L Respiratory Rate 16 Blood Pressure 123/56 L 120/59 L Pulse Oximetry 92 Oxygen Delivery Method 08/17/22 09:00 08/17/22 09:31 08/17/22 09:31 Temperature 99.5 F 99.3 F Pulse Rate 51 L 56 L Respiratory Rate 16 26 H Blood Pressure 119/68 Pulse Oximetry 92 93 Oxygen Delivery Method 08/17/22 10:00 Temperature 99.3 F Pulse Rate 57 L Respiratory Rate 25 H Blood Pressure Pulse Oximetry 93 Oxygen Delivery Method Fraction of Inspired Oxygen 35 SaO2/FiO2 Ratio 257 Oxygen Delivery Method Mechanical Ventilation Oxygen Flow Rate 15 Narrative Exam Narrative: GEN: intubated and sedated, morbidly obese HEENT: moist mucous membranes, pinpoint pupils, PERRL NECK: trachea midline, PULM: CTA b/l, no obvious rhonchi or rales or wheezing but fairly shallow respirations on vent. CV: RRR, no murmurs ABD: soft, nontender, nondistended, no organomegaly EXT: warm and well perfused, 1+ edema, left lower leg wound healing well NEURO: intubated and sedated Objective Labs 08/17/22 09:51 08/17/22 09:51 Labs: Laboratory Results - last 24 hr 08/17/22 08/17/22 08/17/22 09:51 09:51 10:10 WBC 8.1 RBC 3.58 L Hgb 11.7 L Hct 35.8 L MCV 100.1 H MCH 32.7 MCHC 32.6 RDW 16.1 H Plt Count 172 Neut % (Auto) 86.1 H Lymph % (Auto) 8.7 L Garza % (Auto) 4.6 Eos % (Auto) 0.0 L Baso % (Auto) 0.6 Neut # (Auto) 7000 Lymph # (Auto) 700 L Garza # (Auto) 400 Eos # (Auto) 0 Baso # (Auto) 0 ABG pH 7.49 H ABG pCO2 39.8 ABG pO2 64 L ABG HCO3 30 H ABG Total CO2 31 H ABG O2 Saturation 94 L ABG Base Excess 7.0 H FiO2 30 Sodium 136 L Potassium 4.7 Chloride 98 Carbon Dioxide 32 BUN 52 H Creatinine 2.07 H Estimated GFR 27 L BUN/Creatinine Ratio 25.1 H Glucose 322 H D Calcium 8.9 Magnesium 2.2 Total Bilirubin 0.7 ALT 1193 H Alkaline Phosphatase 38 Total Protein 6.6 Albumin 3.6 Globulin 3.0 Albumin/Globulin Ratio 1.2 PFSH Medical History Chronic hypoxemic respiratory failure COPD (chronic obstructive pulmonary disease) DM2 (diabetes mellitus, type 2) HTN (hypertension) Obesity PONCE (obstructive sleep apnea) Systolic and diastolic CHF, chronic Thyroiditis Surgical History S/P hernia surgery Family History Mother No pertinent past medical history Father No pertinent past medical history Social History household members: other Smoking Status: Former smoker Assessment & Plan Assessment & Plan narrative: 1. Septic shock with BLANCA, acute metabolic encephalopathy, hypotension, and Acute hypercapneic/hypoxemic respiratory failure, with chronic hypoxemic respiratory failure -for now treat broadly with antibiotics, no vancomycin given negative MRSA swab. Continue zosyn with possible aspiration and LFT elevations noted today, RUQ US pending. Patient developed shock with pressor requirement on 08/16 until 08/17. Borderline BP today. -continue with steroids, and duonebs -large diuresis with initial therapy, now intermittent / prn lasix dosing, will avoid today. -appreciate duplicating machine operator consult -extubated 08/17 to BiPAP early AM. 2. Acute systolic CHF exacerbation -presents with lower extremity edema and elevated bnp -last echo showed preserved ef, limited TTE unchanged with EF 30%. -trops indeterminate x2, no repeat necessary at this time with TTE findings. -continue lasix prn as noted above -goal negative 2-3L negative daily 3. Possible aspiration pneumonia -per ED staff patient had possible food particles suctioned from et tube -will order broad antibiotics with zosyn, azithromycin -follow up sputum cultures -[employer] eval today after extubation. 4. BLANCA -suspect secondary chf exacerbation -has philippe to monitor urine output -ct abdomen showed no evidence of urological obstruction 5. Possible hyperkalemia -potassium noted to be 6.4, but showed slight hemolysis. May be related to BLANCA. -did get insulin in ED and is now improved. 5. Acute cystitis -ua showed positive bacteria -follow up urine cultures -on antibiotics as above 6. Leg wound -swabbed in ED -follow up cultures -on antibiotics as noted above 7. Type 2 Diabetes on insulin -on 22U BID of lantus at home, -yesterday was mildly hypoglycemic, lantus decreased but will increase again and continue adjustments. 8. Morbid obesity -BMI >50, likely contributing to respiratory failure -dietitian evaluation 9. Hypertension -hold oral antihypertensives for now 10. Hypothyroidism -continue synthroid when tolerating diet 11. COPD with presumed exacerbation - continue steroids IV until [employer] evaluation, then change to prednisone 40 mg daily. 12. Transaminase elevations, acute, not present on admission - ALT 1193, AST pending. Probably DILI but will continue to trend and check RUQ US to rule out obstruction. CODE: Full Proxy: Roxy Berry, daughter Dispo: remains ICU, possible downgrade to floor care later today if stable after extubation and BP improved. I spent 35 minutes providing critical care management this patient. This excludes time spent in performing separately billed procedures. Quality VTE Deep Vein Thrombosis/Pulmonary Embolism Present on Admission: No
--- NOTE | 2022-08-17 11:03 | CM.DPC ---
Addendum entered by Hiral Quinonez R.N. 08/17/22 11:19: [facility]- called and left 2 for [facility] to discuss patients DC plan, CM also spoke with [facility] and discussed patient. Patient was just DC from services on august 12, 2022 and are willing to work with her again if it is needed. They will need new order and new F2F. CM Team will continue to work with [facility], [place] and [facility] to determine the most appropriate plan for DC as patient continues to recover and works with PT, and OT. Hiral Quinonez RNlodging facilities manager Original Note: DCP continued: Patient is still intubated and CM is not able to meet with her at this time. CM did look at pervious CM notes from Acute care admission in may, at that time, August at [facility] was looking to see if they could get a [employer] authorization. However, patient improved enough to DC back to [facility] with HH. With this information CM thought patient might need SNF depending on how deconditioned she is after being intubated and called August at [facility] and [facility] asking her to review patient for possible admission. CM also called [facility], [facility], [facility], [facility], [facility] to see if they can accept [employer] health insurance and all do not currently take [employer]. [facility] is working on getting a hold of [facility] to verify patients return to there facility at DC. Hiral Quinonez RNlodging facilities manager
[2022-08-17 11:17] LABS: Aspartate Aminotransferase 3553 IU/L (14-36)
--- NOTE | 2022-08-17 12:36 | SLP.IPNOTE ---
Order received. Pt is currently on bipap. Will try again tomorrow.
--- NOTE | 2022-08-17 12:36 | PC.NURSE ---
Dayshift note: pt sedation turned off by 0730, with the acception of Precedex 0.2mcg/kg, SBT started at 0907, able to follow commands and remain calm. Extubated 1030 to BiPap (per hydraulic rockbreaker operator Dr Talamantes) settings 16/8 24%. Pt sedation is Precedex at 0.5 mcg/kg, Norepi 2 mcg/min for hypotension. Pt tolerating well, will continue to monitor.
--- NOTE | 2022-08-17 13:34 | CM.DPC ---
DCP Cont: Isamar from [facility] called back, she is the med tech at their facility. There had been some attempts earlier today to reach their facility, attempting to get baseline information on patient. According to Isamar, patient is alert and oriented times 4, is on 2 liters at baseline. She uses a FWW at their facility. Confirmed that their nurse would need to reassess before readmission. It is unclear as to who their nurse is currently, for Julissa is no longer at the facility. Back up plans have been initiated with [facility] [employer], she has checked all skilled facilities, other than [facility], and they do not take [facility]. Ursula at [facility] has indicated that since they are out of network, if there are 3 facilities that deny acceptance, she may be able to get one time agreement. This depends upon how she does once extubated, and then, will work with P.T. P: DCP to follow closely. If patient progresses with P.T after extubation, should be able to return to [facility]. Other option and possibility, is [facility] if Ursula can initiate out of network auth with [facility], as week end approaches, [facility] will continue to work on this case. Lili Pierre RN/Strategic Planning Director
[2022-08-17] MEDS: ALBUTEROL 2.5 MG/3 ML NEB (ADULT) INH (14:39)
[2022-08-17] MEDS: ACETAMINOPHEN 650 MG SUPP PR (14:58)
[2022-08-17 16:12] LABS: Albumin 3.9 g/dL (3.5-5.0); Albumin Globulin Ratio 1.3 (1.0-2.8); Alkaline Phosphatase 38 U/L (38-126); Bilirubin Total 0.9 mg/dL (0.2-1.3); Bilirubin Unconjugated 0.4 mg/dL (0.0-1.1); Globulin 3.1 g/dL (1.7-4.1); HEMOLYSIS < 15 (0-50)
[2022-08-17 16:34] LABS: Alanine Aminotransferase 1638 IU/L (<35); Aspartate Aminotransferase 3591 IU/L (14-36)
--- NOTE | 2022-08-17 20:42 | PM.ICURNDS ---
- Date Patient Seen: 08/17/22 Time Patient Seen: 20:44 :: This patient was seen via real time interactive two-way audiovisual telecommunication. Note: pt extubated early on remains on bipap, precedex, small dose levophed on bipap sats 88%-90s tachyneic to high 30s, febrile to 102 suggest -minimize precedex, should dc -wean off of levophed -monzon cxs, continue abx -check abg, repeat LFTS -check abg -can do try high flow -low threshold for re-intubation -d/w bedside nurse
--- NOTE | 2022-08-17 20:51 | DI.RAD.S_ITS ---
PROCEDURE: XR CHEST 1V INDICATIONS: sob TECHNIQUE: One view of the chest was acquired. COMPARISON: [facility], CR, XR CHEST 1V, 08/17/2022, 5:53. FINDINGS: Surgical changes and devices: There is a left upper extremity PICC line which appears stable in position. Lungs and pleura: Evaluation of the lung bases is limited by patient's overlying soft tissues. There is a small left pleural effusion. Persistent bibasilar patchy opacities are demonstrated consistent with atelectasis or consolidation. There is decreased pulmonary edema. No definite pneumothorax. Mediastinum: Mediastinal contours are unchanged. Heart size is enlarged. Bones and chest wall: No suspicious bony lesions. Overlying soft tissues appear unremarkable. IMPRESSION: 1. Limited study demonstrates persistent small left pleural effusion with bibasilar atelectasis or consolidation. 2. Decreased pulmonary edema. Dictated by: Dylan Mccloud M.D. on 08/17/2022 at 21:59 Approved by: Dylan Mccloud M.D. on 08/17/2022 at 22:02
--- NOTE | 2022-08-17 21:12 | PC.NURSE ---
Addendum entered by Roxy Morton R.N. 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 Addendum entered by Roxy Morton R.N. 08/18/22 05:41: Levophed titrated to 1mcg/hr, AR=985/60(75) placed on hold at 0545. HR 80's. Temp down to 101.1F using ice packs. 0500 labs sent via left PICC. CHG bath complete. Pt appears to be resting comfortably. Addendum entered by Roxy Morton R.N. 08/18/22 03:42: Precedex stopped at 0000. Pt starting to open eyes and follow simple commands. Shaking her head yes and no appropriately. RR=30's and sating 94% Levophed remains at 2mcg/min, AJ=146/60 Original Note: Pts RR=35 sating 90% Notified . Orders for STAT lab, ABG and change bipap to 18/8 and change to NC or hiflow if pt not improving. MD states reintubate if needed. is taking over. RT notified and at bedside.
[2022-08-17 21:47] LABS: Appearance Urine UA CLEAR; Bilirubin Urine UA NEGATIVE (NEGATIVE); Color Urine UA YELLOW; Glucose Urine UA 1+ g/dL (Negative); Ketones Urine UA NEGATIVE (NEGATIVE); Leukocyte Esterase Urine UA 1+ (NEGATIVE); Nitrite Urine UA NEGATIVE (Negative); Occult Blood Urine UA 3+ (Negative); Protein Urine UA 3+ (Negative); Specific Gravity Urine UA 1.025 (1.000-1.035); Urobilinogen Urine UA 0.2 E.U./dL (0.2)
[2022-08-17 21:48] LABS: Albumin 3.8 g/dL (3.5-5.0); Albumin Globulin Ratio 1.2 (1.0-2.8); Alkaline Phosphatase 39 U/L (38-126); BUN Creatinine Ratio 26.8 (6-22); Bilirubin Total 0.9 mg/dL (0.2-1.3); Blood Urea Nitrogen 60 mg/dL (7-17); Calcium 9.1 mg/dL (8.4-10.2); Carbon Dioxide 35 mmol/L (22-32); Chloride 96 mmol/L (98-107); Estimated Glomerular Filt Rate 25 mL/min (>60); Globulin 3.3 g/dL (1.7-4.1); Glucose 286 mg/dL (80-110); HEMOLYSIS < 15 (0-50); Potassium 5.2 mmol/L (3.4-5.1); Sodium 138 mmol/L (137-145); Total Protein 7.1 g/dL (6.3-8.2)
[2022-08-17 21:58] LABS: Amorphous Sediment Urine 2+; Bacteria Urine Many (>30); Culture Indicated Urine Specimen Cultured; RBC Urine 5-10/HPF (0-5/HPF); Renal Epithelial Cells Urine 1-5/HPF (0-1/HPF); Squamous Epithelial Cell Urine 5-10 /HPF (0-5/HPF); WBC Urine 5-10/HPF (0-5/HPF)
[2022-08-17 22:09] LABS: Alanine Aminotransferase 2166 IU/L (<35)
[2022-08-17 22:29] LABS: Aspartate Aminotransferase 5055 IU/L (14-36)
[2022-08-18] VITALS (57 sets, daily range): BP systolic 103–187; BP diastolic 59–104; PULSE 42–83; RESP 16–39; TEMP 31–39.2; O2SAT 84–99
[2022-08-18] MEDS: methylPREDNISolone 125 MG/2 ML VIAL 60 MG IV ×2 (00:06→12:27)
[2022-08-18] MEDS: ALBUTEROL/IPRATROPIUM 3 ML AMPUL INH ×6 (00:26→23:07)
[2022-08-18] MEDS: PIPERACILLIN/TAZO 4.5 GM in SODIUM CHLORIDE 0.9% 100 ML IV ×3 (02:17→18:37)
[2022-08-18] MEDS: INSULIN LISPRO 100 UNIT/ML 3ML VIAL SUBCUT ×4 (03:30→20:53)
[2022-08-18] MEDS: HEPARIN 5,000 UNIT/ML VIAL 7500 UNIT SUBCUT ×3 (03:36→20:08)
[2022-08-18 05:05] LABS: Fractionated Inspired Oxygen 35; HCO3 ABG 31 mmol/L (23-27); Oxygen Saturation ABG 97 % (95-100); PCO2 ABG 53.1 mmHg (35-45); PO2 ABG 100 mmHg (80-100); TCO2 ABG 32 mmol/L (23-27); pH ABG 7.37 (7.35-7.45)
[2022-08-18 08:21] LABS: Albumin 3.7 g/dL (3.5-5.0); Albumin Globulin Ratio 1.1 (1.0-2.8); Alkaline Phosphatase 43 U/L (38-126); BUN Creatinine Ratio 28.6 (6-22); Bilirubin Total 0.9 mg/dL (0.2-1.3); Blood Urea Nitrogen 62 mg/dL (7-17); Calcium 9.2 mg/dL (8.4-10.2); Carbon Dioxide 36 mmol/L (22-32); Chloride 98 mmol/L (98-107); Estimated Glomerular Filt Rate 25 mL/min (>60); Globulin 3.3 g/dL (1.7-4.1); Glucose 276 mg/dL (80-110); HEMOLYSIS 21 (0-50); Magnesium 2.5 mg/dL (1.6-2.3); Potassium 4.8 mmol/L (3.4-5.1); Sodium 139 mmol/L (137-145)
[2022-08-18 08:22] LABS: Hematocrit 38.2 % (36-46); Hemoglobin 12.4 g/dL (12.0-16.0); Mean Corpuscular HGB Conc 32.6 % (30-36); Mean Corpuscular Hemoglobin 32.9 PG (26-34); Mean Corpuscular Volume 100.9 fL (80-100); Platelet Count 173 X10^3/uL (150-400); Red Blood Cell Count 3.78 X10^6/uL (4.0-5.2); Red Cell Distribution Width 16.3 % (11.6-14.8); White Blood Cell Count 9.4 X10^3/uL (4.5-11.0)
[2022-08-18 08:28] LABS: HCO3 VBG 33 mmol/L (24-28); Oxygen Saturation VBG 57 % (70-75); PCO2 VBG 55.4 mmHg (45-50); PO2 VBG 31 mmHg (35-45); Total CO2 VBG 34 mmol/L (24-29); pH VBG 7.38 (7.33-7.43)
[2022-08-18 08:29] LABS: Fractionated Inspired Oxygen 30
[2022-08-18 08:39] LABS: Aspartate Aminotransferase 5965 IU/L (14-36)
[2022-08-18 08:40] LABS: PCO2 ABG 39.3 mmHg (35-45)
[2022-08-18 08:56] LABS: Alanine Aminotransferase 2771 IU/L (<35)
[2022-08-18 09:11] LABS: Add Manual Diff / Slide Review YES
[2022-08-18 09:13] LABS: Neutrophils Absolute Manual 8460 /uL (3000-5900); Nucleated Red Blood Cells 5 #/Diff; Total Cells Counted 100
[2022-08-18 09:14] LABS: Polychromasia 2+
[2022-08-18] MEDS: PANTOPRAZOLE 40 MG VIAL IV (09:14)
[2022-08-18] MEDS: INSULIN GLARGINE 100 UNIT/ML 3ML PEN 22 UNIT SUBCUT ×2 (09:15→20:52)
[2022-08-18] MEDS: NYSTATIN POWDER 15GM 1 APPLIC TOP ×2 (09:16→20:07)
--- NOTE | 2022-08-18 10:23 | PM.PN.EICU ---
Subjective Subjective IF CAMERA ACTIVATED, patient seen via real-time interactive audiovisual communication: Camera activated Consent obtained for tele-assistant professor in family studies care: Yes Patient Location: ICU Provider location (State): [place] Other participants/roles: Dr. Gillespie Interval history: no acute events overnight off bipap afebrile mentall status improving Current Medications Current Medications Medications: Home Medications acetaminophen 325 mg tablet (Tylenol) 650 mg PO TID 05/25/22 [History Confirmed 08/15/22] aspirin 81 mg tablet,delayed release 81 mg PO DAILY 05/25/22 [History Confirmed 08/15/22] budesonide-formoterol HFA 160 mcg-4.5 mcg/actuation aerosol inhaler 2 puff inhalation Q4H PRN Wheezing 05/25/22 [History Confirmed 08/15/22] bupropion HCl 150 mg tablet,12 hr sustained-release 150 mg PO BEDTIME 05/25/22 [History Confirmed 08/15/22] carvedilol 3.125 mg tablet 3.125 mg PO BID 05/25/22 [History Confirmed 08/15/22] cyanocobalamin (vitamin B-12) 500 mcg tablet 500 mcg PO DAILY 05/25/22 [History Confirmed 08/15/22] fenofibrate 160 mg tablet 160 mg PO DAILY 05/25/22 [History Confirmed 08/15/22] ferrous sulfate 325 mg (65 mg iron) tablet 325 mg PO DAILY 05/25/22 [History Confirmed 08/15/22] fluoxetine 20 mg tablet 20 mg PO DAILY 05/25/22 [History Confirmed 08/15/22] fluticasone propionate 50 mcg/actuation nasal spray,suspension 2 spray intranasal DAILY 05/25/22 [History Confirmed 08/15/22] gabapentin 300 mg capsule 300 mg PO BEDTIME 05/25/22 [History Confirmed 08/15/22] insulin glargine 100 unit/mL (3 mL) subcutaneous pen 22 unit SUBCUT BID 05/25/22 [History Confirmed 08/16/22] insulin lispro 100 unit/mL subcutaneous solution (Humalog U-100 Insulin) 4 unit SUBCUT TIDWM 05/25/22 [History Confirmed 08/16/22] lidocaine 5 % topical patch 1 patch topical DAILY 05/25/22 [History Confirmed 08/15/22] loratadine 10 mg tablet 10 mg PO DAILY 05/25/22 [History Confirmed 08/15/22] magnesium oxide 200 mg PO BID 05/25/22 [History Confirmed 08/15/22] meclizine 25 mg tablet 25 mg PO Q8HR PRN Dizziness 05/25/22 [History Confirmed 08/15/22] montelukast 10 mg tablet 10 mg PO DAILY 05/25/22 [History Confirmed 08/15/22] nystatin 100,000 unit/gram topical powder 1 applic topical BID PRN Rash 05/25/22 [History Confirmed 08/16/22] ondansetron 4 mg disintegrating tablet 4 mg PO Q8H PRN Nausea 05/25/22 [History Confirmed 08/15/22] rosuvastatin 40 mg tablet 40 mg PO DAILY 05/25/22 [History Confirmed 08/15/22] sennosides 8.6 mg tablet (senna) 17.2 mg PO BEDTIME 05/25/22 [History Confirmed 08/15/22] tiotropium bromide 18 mcg capsule with inhalation device (Spiriva with HandiHaler) 1 cap inhalation DAILY 05/25/22 [History Confirmed 08/15/22] trazodone 50 mg tablet 50 mg PO BEDTIME 05/25/22 [History Confirmed 08/15/22] albuterol sulfate 90 mcg/actuation aerosol inhaler 4 puff inhalation Q4H PRN Shortness Of Breath Or Wheezing 08/15/22 [History Confirmed 08/15/22] levothyroxine 175 mcg tablet 175 mcg PO DAILY 08/15/22 [History Confirmed 08/15/22] potassium chloride 10 mEq tablet,extended release 10 meq PO DAILY 08/15/22 [History Confirmed 08/15/22] torsemide 10 mg tablet 20 mg PO BID 08/15/22 [History Confirmed 08/16/22] Visit Medications (administered) Generic Name Dose Route Start Last Admin Trade Name Freq PRN Reason Stop Dose Admin Acetaminophen 650 mg 08/16/22 14:49 08/17/22 01:19 Acetaminophen Susp 650 Mg/20.3 Ml Udc PO 650 mg Q6HR PRN Administration Fever/Mild Pain (1-3) Acetaminophen 650 mg 08/17/22 14:26 08/17/22 14:58 Acetaminophen 650 Mg Supp [place] 650 mg Q6HR PRN Administration Fever/Mild Pain (1-3) Albuterol 2.5 mg 08/15/22 23:46 08/17/22 14:39 Albuterol 2.5 Mg/3 Ml Neb (Adult) INH 2.5 mg [id number] PRN Administration Shortness Of Breath Albuterol/Ipratropium 3 ml 08/15/22 23:46 08/18/22 07:43 Albuterol/Ipratropium 3 Ml Ampul INH 3 ml [id number] JAY JAY Administration Heparin Sodium (Porcine) 7,500 unit 08/16/22 12:00 08/18/22 03:36 Heparin 5,000 Unit/Ml Vial SUBCUT 7,500 unit Q8H JAY JAY Administration Piperacillin Sod/Tazobactam 100 mls @ 25 mls/hr 08/16/22 10:00 08/18/22 09:14 Sod 4.5 gm/ Sodium Chloride IV 25 mls/hr Q8H JAY JAY Administration dexmedeTOMIDine in 0.9 % NaCL 400 mcg in 100 mls @ 6.43 mls/hr 08/16/22 09:45 08/18/22 00:02 Precedex IV 0 mcg/kg/hr TITRATE JAY JAY 0 mls/hr Titration Protocol 0.2 MCG/KG/HR NOREPINEPHRINE BITARTRATE/D5W 4 mg in 250 mls @ 30 mls/hr 08/16/22 11:15 08/18/22 04:46 Levophed IV Infused TITRATE JAY JAY Titration Protocol 8 MCG/MIN Insulin Glargine 22 unit 08/18/22 09:00 08/18/22 09:15 Insulin Glargine 100 Unit/Ml 3ml Pen SUBCUT 22 unit BID JAY JAY Administration Insulin Human Lispro 0 unit 08/17/22 09:00 08/18/22 09:15 Insulin Lispro 100 Unit/Ml 3ml Vial SUBCUT 5 unit Q6H JAY JAY Administration Protocol Montelukast Sodium 10 mg 08/16/22 09:00 08/18/22 09:16 Montelukast 10 Mg Tablet PO Not Given DAILY JAY JAY Nystatin 1 applic 08/18/22 09:00 08/18/22 09:16 Nystatin Powder 15gm TOP 1 applic BID JAY JAY Administration Pantoprazole Sodium 40 mg 08/17/22 09:00 08/18/22 09:14 Pantoprazole 40 Mg Vial IV 40 mg DAILY JAY JAY Administration Objective Ventilator Parameters: Ventilator Settings FiO2 30 RT Vent Frequency 16 Ventilator Tidal Volume 350 Exhaled Vt/kg IBW 8 Positive End Expiratory 8 Pressure Ventilator Pressure Support 8 Inspiratory Phase Time 0.9 I:E Ratio 1:2.7 Patient Position HOB >= 30 degrees Labs 08/18/22 05:00 08/18/22 05:00 Labs: Laboratory Results - last 24 hr 08/17/22 08/17/22 08/17/22 09:51 10:10 15:50 WBC RBC Hgb Hct MCV MCH MCHC RDW Plt Count Neut % (Auto) Lymph % (Auto) [place] % (Auto) Eos % (Auto) Baso % (Auto) Lymph # (Auto) [place] # (Auto) Baso # (Auto) Total Counted Seg Neutrophils % Band Neutrophils % Lymphocytes % (Manual) Monocytes % (Manual) Neutrophils # (Manual) Nucleated RBCs RBC Morphology Polychromasia ABG pH 7.49 H ABG pCO2 39.3 ABG pO2 64 L ABG HCO3 30 H ABG Total CO2 31 H ABG O2 Saturation 94 L ABG Base Excess 7.0 H VBG pH VBG pCO2 VBG pO2 VBG HCO3 VBG Total CO2 VBG O2 Saturation VBG Base Excess FiO2 30 Sodium Potassium Chloride Carbon Dioxide BUN Creatinine Estimated GFR BUN/Creatinine Ratio Glucose Calcium Magnesium Total Bilirubin 0.9 Conjugated Bilirubin 0.0 Unconjugated Bilirubin 0.4 AST 3553 H 3591 H ALT 1193 H 1638 H Alkaline Phosphatase 38 Total Protein 7.0 Albumin 3.9 Globulin 3.1 Albumin/Globulin Ratio 1.3 Urine Color Urine Appearance Urine pH Ur Specific [place] Urine Protein Urine Glucose (UA) Urine Ketones Urine Occult Blood Urine Nitrate Urine Bilirubin Urine Urobilinogen Ur Leukocyte Esterase Urine RBC Urine WBC Ur Squamous Epith Cells Ur Renal Epithelial Cell Amorphous Sediment Urine Bacteria Urine Yeast Ur Culture Indicated? 08/17/22 08/17/22 08/17/22 20:51 21:20 21:30 WBC RBC Hgb Hct MCV MCH MCHC RDW Plt Count Neut % (Auto) Lymph % (Auto) [place] % (Auto) Eos % (Auto) Baso % (Auto) Lymph # (Auto) [place] # (Auto) Baso # (Auto) Total Counted Seg Neutrophils % Band Neutrophils % Lymphocytes % (Manual) Monocytes % (Manual) Neutrophils # (Manual) Nucleated RBCs RBC Morphology Polychromasia ABG pH 7.37 ABG pCO2 53.1 H ABG pO2 100 ABG HCO3 31 H ABG Total CO2 32 H ABG O2 Saturation 97 ABG Base Excess 5.0 H VBG pH VBG pCO2 VBG pO2 VBG HCO3 VBG Total CO2 VBG O2 Saturation VBG Base Excess FiO2 35 Sodium 138 Potassium 5.2 H Chloride 96 L Carbon Dioxide 35 H BUN 60 H Creatinine 2.24 H Estimated GFR 25 L BUN/Creatinine Ratio 26.8 H Glucose 286 H Calcium 9.1 Magnesium Total Bilirubin 0.9 Conjugated Bilirubin Unconjugated Bilirubin AST 5055 H ALT 2166 H Alkaline Phosphatase 39 Total Protein 7.1 Albumin 3.8 Globulin 3.3 Albumin/Globulin Ratio 1.2 Urine Color Yellow Urine Appearance Clear Urine pH 6.0 Ur Specific [place] 1.025 Urine Protein 3+ H Urine Glucose (UA) 1+ H Urine Ketones Negative Urine Occult Blood 3+ H Urine Nitrate Negative Urine Bilirubin Negative Urine Urobilinogen 0.2 Ur Leukocyte Esterase 1+ H Urine RBC 5-10/hpf H Urine WBC 5-10/hpf H Ur Squamous Epith Cells 5-10 /hpf H Ur Renal Epithelial Cell 1-5/hpf H Amorphous Sediment 2+ Urine Bacteria Many (>30) H Urine Yeast 0-1/hpf Ur Culture Indicated? Specimen cultured 08/18/22 08/18/22 08/18/22 05:00 05:00 05:00 WBC 9.4 RBC 3.78 L Hgb 12.4 Hct 38.2 MCV 100.9 H MCH 32.9 MCHC 32.6 RDW 16.3 H Plt Count 173 Neut % (Auto) Not Reportable Lymph % (Auto) Not Reportable [place] % (Auto) Not Reportable Eos % (Auto) Not Reportable Baso % (Auto) Not Reportable Lymph # (Auto) Not Reportable [place] # (Auto) Not Reportable Baso # (Auto) Not Reportable Total Counted 100 Seg Neutrophils % 89.0 H Band Neutrophils % 1.0 L Lymphocytes % (Manual) 7.0 L Monocytes % (Manual) 3.0 Neutrophils # (Manual) 8460 H Nucleated RBCs 5 H RBC Morphology See below Polychromasia 2+ H ABG pH ABG pCO2 ABG pO2 ABG HCO3 ABG Total CO2 ABG O2 Saturation ABG Base Excess VBG pH VBG pCO2 VBG pO2 VBG HCO3 VBG Total CO2 VBG O2 Saturation VBG Base Excess FiO2 Sodium Cancelled 139 Potassium Cancelled 4.8 Chloride Cancelled 98 Carbon Dioxide Cancelled 36 H BUN Cancelled 62 H Creatinine Cancelled 2.17 H Estimated GFR Cancelled 25 L BUN/Creatinine Ratio Cancelled 28.6 H Glucose Cancelled 276 H Calcium Cancelled 9.2 Magnesium 2.5 H Total Bilirubin Cancelled 0.9 Conjugated Bilirubin Unconjugated Bilirubin AST Cancelled 5965 H ALT Cancelled 2771 H Alkaline Phosphatase Cancelled 43 Total Protein Cancelled 7.0 Albumin Cancelled 3.7 Globulin Cancelled 3.3 Albumin/Globulin Ratio Cancelled 1.1 Urine Color Urine Appearance Urine pH Ur Specific [place] Urine Protein Urine Glucose (UA) Urine Ketones Urine Occult Blood Urine Nitrate Urine Bilirubin Urine Urobilinogen Ur Leukocyte Esterase Urine RBC Urine WBC Ur Squamous Epith Cells Ur Renal Epithelial Cell Amorphous Sediment Urine Bacteria Urine Yeast Ur Culture Indicated? 08/18/22 08:10 WBC RBC Hgb Hct MCV MCH MCHC RDW Plt Count Neut % (Auto) Lymph % (Auto) [place] % (Auto) Eos % (Auto) Baso % (Auto) Lymph # (Auto) [place] # (Auto) Baso # (Auto) Total Counted Seg Neutrophils % Band Neutrophils % Lymphocytes % (Manual) Monocytes % (Manual) Neutrophils # (Manual) Nucleated RBCs RBC Morphology Polychromasia ABG pH ABG pCO2 ABG pO2 ABG HCO3 ABG Total CO2 ABG O2 Saturation ABG Base Excess VBG pH 7.38 VBG pCO2 55.4 H VBG pO2 31 L VBG HCO3 33 H VBG Total CO2 34 H VBG O2 Saturation 57 L VBG Base Excess 7.0 H FiO2 30 Sodium Potassium Chloride Carbon Dioxide BUN Creatinine Estimated GFR BUN/Creatinine Ratio Glucose Calcium Magnesium Total Bilirubin Conjugated Bilirubin Unconjugated Bilirubin AST ALT Alkaline Phosphatase Total Protein Albumin Globulin Albumin/Globulin Ratio Urine Color Urine Appearance Urine pH Ur Specific [place] Urine Protein Urine Glucose (UA) Urine Ketones Urine Occult Blood Urine Nitrate Urine Bilirubin Urine Urobilinogen Ur Leukocyte Esterase Urine RBC Urine WBC Ur Squamous Epith Cells Ur Renal Epithelial Cell Amorphous Sediment Urine Bacteria Urine Yeast Ur Culture Indicated? Exam Vital Signs (past 8 hours): - 08/18/22 02:30 08/18/22 02:30 08/18/22 03:00 Temperature 102.4 F H 102.2 F H Pulse Rate 72 73 Respiratory Rate 35 H 36 H Blood Pressure 111/66 Pulse Oximetry 94 95 Oxygen Delivery Method Oxygen Flow Rate Fraction of Inspired Oxygen 08/18/22 03:01 08/18/22 03:01 08/18/22 03:30 Temperature 102.2 F H 102.0 F H Pulse Rate 74 72 Respiratory Rate 35 H 37 H Blood Pressure 106/68 Pulse Oximetry 95 93 Oxygen Delivery Method Oxygen Flow Rate Fraction of Inspired Oxygen 08/18/22 03:30 08/18/22 04:00 08/18/22 04:00 Temperature 102.0 F H Pulse Rate 74 Respiratory Rate 37 H Blood Pressure 106/67 108/63 106/63 Pulse Oximetry 94 Oxygen Delivery Method Oxygen Flow Rate 16 Fraction of Inspired Oxygen 08/18/22 05:00 08/18/22 04:30 08/18/22 04:30 Temperature 101.8 F H Pulse Rate 74 Respiratory Rate 34 H Blood Pressure 119/67 Pulse Oximetry 95 Oxygen Delivery Method BiPAP Oxygen Flow Rate Fraction of Inspired Oxygen 08/18/22 05:00 08/18/22 05:01 08/18/22 05:01 Temperature 101.7 F H 101.7 F H Pulse Rate 83 83 Respiratory Rate 37 H 38 H Blood Pressure 111/60 Pulse Oximetry 91 92 Oxygen Delivery Method Oxygen Flow Rate 16 Fraction of Inspired Oxygen 08/18/22 05:25 08/18/22 05:25 08/18/22 05:30 Temperature 101.3 F H 101.3 F H Pulse Rate 78 81 Respiratory Rate 35 H 39 H Blood Pressure 109/69 Pulse Oximetry 93 93 Oxygen Delivery Method Oxygen Flow Rate Fraction of Inspired Oxygen 08/18/22 05:30 08/18/22 06:00 08/18/22 06:05 Temperature 100.9 F H 100.9 F H Pulse Rate 80 80 Respiratory Rate 33 H 36 H Blood Pressure 103/60 Pulse Oximetry 92 94 Oxygen Delivery Method Oxygen Flow Rate Fraction of Inspired Oxygen 08/18/22 06:05 08/18/22 07:44 08/18/22 07:00 Temperature 100.2 F H Pulse Rate 77 Respiratory Rate 34 H Blood Pressure 133/90 133/90 Pulse Oximetry 93 Oxygen Delivery Method Oxygen Flow Rate 16 Fraction of Inspired Oxygen 35 08/18/22 08:00 08/18/22 09:00 08/18/22 10:00 Temperature 99.7 F H 99.0 F 98.6 F Pulse Rate 73 75 75 Respiratory Rate 31 H 26 H 26 H Blood Pressure Pulse Oximetry 92 95 85 L Oxygen Delivery Method Oxygen Flow Rate Fraction of Inspired Oxygen Fraction of Inspired Oxygen 35 SaO2/FiO2 Ratio 326 Oxygen Delivery Method BiPAP Oxygen Flow Rate 16 Quality TeleICU VTE Deep Vein Thrombosis/Pulmonary Embolism Present on Admission: No Assessment & Plan Assessment & Plan narrative: patient seen on video, discussed with bedside nurse and provider Dr. Gillespie chart/labs/imaging reviewed no acute events overnight 61 year old female admitted to ICU with acute mixed resp failure CHF exacerbation COPD excerbation aspiration pneumonia acute on chronic renal failure hyperkalemia currently afebrile, HD stable, remains off pressors on NC, sats 93% intubated, alert awake follows commands on SBT no secretions ast/alt 5000/2000s US -ve cxr- improved congestion UA +ve, UCx aerococcus Suggest -neurochecks/seizure precautions -dc precedex -dc levo -continue NC, would do Bipap for sleep -can do 4 hours on 3 hours off bipap -keep sat 88-92% -continue nebs/steroids -chest pt/pulm toilet can hold diuretics, re-eval as needed -continue abx till cxs final, dc vanco -repeat LFTs -check RUQ sono with doppler studies -diet as tolerated -pt/ot/oob -continue tube feeds -keep glucose 140-180s -monitor ins/outs -replace lytes prn -gi/dvt ppx -please call eICU if condition changes -d/w Dr. Gillespie total ccm time 45 mins
--- NOTE | 2022-08-18 11:47 | P.PN_ITS ---
Subjective Subjective Interval history: 61 year old female intubated for hypercapnic respiratory failure presumed due to CHF exacerbation on 08/15 , possible/probable aspiration as strawberry pieces were removed with intubation in the ER. Extubated yesterday (08/17) to BiPAP, where she remained this AM. Repeat VBG without significant hypercapnea, but patient remains encephalopathic. LFTs significantly elevated after intubation, probably ischemic in nature from hypotension but possible DILI contributing as well. She denies shortness of breath this morning, but responds to orientation questions with her birthdate. Exam Vital Signs (past 8 hours): - 08/18/22 04:00 08/18/22 04:00 08/18/22 05:00 Temperature 102.0 F H Pulse Rate 74 Respiratory Rate 37 H Blood Pressure 108/63 106/63 Pulse Oximetry 94 Oxygen Delivery Method BiPAP Oxygen Flow Rate Fraction of Inspired Oxygen 08/18/22 04:30 08/18/22 04:30 08/18/22 05:00 Temperature 101.8 F H 101.7 F H Pulse Rate 74 83 Respiratory Rate 34 H 37 H Blood Pressure 119/67 Pulse Oximetry 95 91 Oxygen Delivery Method Oxygen Flow Rate Fraction of Inspired Oxygen 08/18/22 05:01 08/18/22 05:01 08/18/22 05:25 Temperature 101.7 F H Pulse Rate 83 Respiratory Rate 38 H Blood Pressure 111/60 109/69 Pulse Oximetry 92 Oxygen Delivery Method Oxygen Flow Rate 16 Fraction of Inspired Oxygen 08/18/22 05:25 08/18/22 05:30 08/18/22 05:30 Temperature 101.3 F H 101.3 F H Pulse Rate 78 81 Respiratory Rate 35 H 39 H Blood Pressure 103/60 Pulse Oximetry 93 93 Oxygen Delivery Method Oxygen Flow Rate Fraction of Inspired Oxygen 08/18/22 06:00 08/18/22 06:05 08/18/22 06:05 Temperature 100.9 F H 100.9 F H Pulse Rate 80 80 Respiratory Rate 33 H 36 H Blood Pressure 133/90 Pulse Oximetry 92 94 Oxygen Delivery Method Oxygen Flow Rate 16 Fraction of Inspired Oxygen 08/18/22 07:44 08/18/22 07:00 08/18/22 08:00 Temperature 100.2 F H 99.7 F H Pulse Rate 77 73 Respiratory Rate 34 H 31 H Blood Pressure 133/90 Pulse Oximetry 93 92 Oxygen Delivery Method Oxygen Flow Rate Fraction of Inspired Oxygen 35 08/18/22 09:00 08/18/22 10:00 08/18/22 09:00 Temperature 99.0 F 98.6 F Pulse Rate 75 75 Respiratory Rate 26 H 26 H Blood Pressure Pulse Oximetry 95 85 L Oxygen Delivery Method Nasal Cannula Oxygen Flow Rate Fraction of Inspired Oxygen 08/18/22 11:00 08/18/22 11:10 Temperature 98.2 F Pulse Rate 73 73 Respiratory Rate 24 26 H Blood Pressure Pulse Oximetry 96 98 Oxygen Delivery Method High Flow Nasal Cannula Oxygen Flow Rate 2 Fraction of Inspired Oxygen Fraction of Inspired Oxygen 35 SaO2/FiO2 Ratio 326 Oxygen Delivery Method High Flow Nasal Cannula Oxygen Flow Rate 2 Narrative Exam Narrative: GEN: intubated and sedated, morbidly obese HEENT: moist mucous membranes, pinpoint pupils, PERRL NECK: trachea midline, PULM: CTA b/l, no obvious rhonchi or rales or wheezing but fairly shallow respirations on vent. CV: RRR, no murmurs ABD: soft, nontender, nondistended, no organomegaly EXT: warm and well perfused, 1+ edema, left lower leg wound healing well NEURO: intubated and sedated Objective Labs 08/18/22 05:00 08/18/22 05:00 Labs: Laboratory Results - last 24 hr 08/17/22 08/17/22 08/17/22 10:10 15:50 20:51 WBC RBC Hgb Hct MCV MCH MCHC RDW Plt Count Neut % (Auto) Lymph % (Auto) Fountain % (Auto) Eos % (Auto) Baso % (Auto) Lymph # (Auto) [place] # (Auto) Baso # (Auto) Total Counted Seg Neutrophils % Band Neutrophils % Lymphocytes % (Manual) Monocytes % (Manual) Neutrophils # (Manual) Nucleated RBCs RBC Morphology Polychromasia ABG pH 7.37 ABG pCO2 39.3 53.1 H ABG pO2 100 ABG HCO3 31 H ABG Total CO2 32 H ABG O2 Saturation 97 ABG Base Excess 5.0 H VBG pH VBG pCO2 VBG pO2 VBG HCO3 VBG Total CO2 VBG O2 Saturation VBG Base Excess FiO2 35 Sodium Potassium Chloride Carbon Dioxide BUN Creatinine Estimated GFR BUN/Creatinine Ratio Glucose Calcium Magnesium Total Bilirubin 0.9 Conjugated Bilirubin 0.0 Unconjugated Bilirubin 0.4 AST 3591 H ALT 1638 H Alkaline Phosphatase 38 Total Protein 7.0 Albumin 3.9 Globulin 3.1 Albumin/Globulin Ratio 1.3 Urine Color Urine Appearance Urine pH Ur Specific [place] Urine Protein Urine Glucose (UA) Urine Ketones Urine Occult Blood Urine Nitrate Urine Bilirubin Urine Urobilinogen Ur Leukocyte Esterase Urine RBC Urine WBC Ur Squamous Epith Cells Ur Renal Epithelial Cell Amorphous Sediment Urine Bacteria Urine Yeast Ur Culture Indicated? 08/17/22 08/17/22 08/18/22 21:20 21:30 05:00 WBC 9.4 RBC 3.78 L Hgb 12.4 Hct 38.2 MCV 100.9 H MCH 32.9 MCHC 32.6 RDW 16.3 H Plt Count 173 Neut % (Auto) Not Reportable Lymph % (Auto) Not Reportable Fountain % (Auto) Not Reportable Eos % (Auto) Not Reportable Baso % (Auto) Not Reportable Lymph # (Auto) Not Reportable Fountain # (Auto) Not Reportable Baso # (Auto) Not Reportable Total Counted 100 Seg Neutrophils % 89.0 H Band Neutrophils % 1.0 L Lymphocytes % (Manual) 7.0 L Monocytes % (Manual) 3.0 Neutrophils # (Manual) 8460 H Nucleated RBCs 5 H RBC Morphology See below Polychromasia 2+ H ABG pH ABG pCO2 ABG pO2 ABG HCO3 ABG Total CO2 ABG O2 Saturation ABG Base Excess VBG pH VBG pCO2 VBG pO2 VBG HCO3 VBG Total CO2 VBG O2 Saturation VBG Base Excess FiO2 Sodium 138 Potassium 5.2 H Chloride 96 L Carbon Dioxide 35 H BUN 60 H Creatinine 2.24 H Estimated GFR 25 L BUN/Creatinine Ratio 26.8 H Glucose 286 H Calcium 9.1 Magnesium Total Bilirubin 0.9 Conjugated Bilirubin Unconjugated Bilirubin AST 5055 H ALT 2166 H Alkaline Phosphatase 39 Total Protein 7.1 Albumin 3.8 Globulin 3.3 Albumin/Globulin Ratio 1.2 Urine Color Yellow Urine Appearance Clear Urine pH 6.0 Ur Specific [place] 1.025 Urine Protein 3+ H Urine Glucose (UA) 1+ H Urine Ketones Negative Urine Occult Blood 3+ H Urine Nitrate Negative Urine Bilirubin Negative Urine Urobilinogen 0.2 Ur Leukocyte Esterase 1+ H Urine RBC 5-10/hpf H Urine WBC 5-10/hpf H Ur Squamous Epith Cells 5-10 /hpf H Ur Renal Epithelial Cell 1-5/hpf H Amorphous Sediment 2+ Urine Bacteria Many (>30) H Urine Yeast 0-1/hpf Ur Culture Indicated? Specimen cultured 08/18/22 08/18/22 08/18/22 05:00 05:00 08:10 WBC RBC Hgb Hct MCV MCH MCHC RDW Plt Count Neut % (Auto) Lymph % (Auto) [place] % (Auto) Eos % (Auto) Baso % (Auto) Lymph # (Auto) [place] # (Auto) Baso # (Auto) Total Counted Seg Neutrophils % Band Neutrophils % Lymphocytes % (Manual) Monocytes % (Manual) Neutrophils # (Manual) Nucleated RBCs RBC Morphology Polychromasia ABG pH ABG pCO2 ABG pO2 ABG HCO3 ABG Total CO2 ABG O2 Saturation ABG Base Excess VBG pH 7.38 VBG pCO2 55.4 H VBG pO2 31 L VBG HCO3 33 H VBG Total CO2 34 H VBG O2 Saturation 57 L VBG Base Excess 7.0 H FiO2 30 Sodium Cancelled 139 Potassium Cancelled 4.8 Chloride Cancelled 98 Carbon Dioxide Cancelled 36 H BUN Cancelled 62 H Creatinine Cancelled 2.17 H Estimated GFR Cancelled 25 L BUN/Creatinine Ratio Cancelled 28.6 H Glucose Cancelled 276 H Calcium Cancelled 9.2 Magnesium 2.5 H Total Bilirubin Cancelled 0.9 Conjugated Bilirubin Unconjugated Bilirubin AST Cancelled 5965 H ALT Cancelled 2771 H Alkaline Phosphatase Cancelled 43 Total Protein Cancelled 7.0 Albumin Cancelled 3.7 Globulin Cancelled 3.3 Albumin/Globulin Ratio Cancelled 1.1 Urine Color Urine Appearance Urine pH Ur Specific [place] Urine Protein Urine Glucose (UA) Urine Ketones Urine Occult Blood Urine Nitrate Urine Bilirubin Urine Urobilinogen Ur Leukocyte Esterase Urine RBC Urine WBC Ur Squamous Epith Cells Ur Renal Epithelial Cell Amorphous Sediment Urine Bacteria Urine Yeast Ur Culture Indicated? COUNTS INCLUDE 234 BEDS AT THE [facility] Medical History Chronic hypoxemic respiratory failure COPD (chronic obstructive pulmonary disease) DM2 (diabetes mellitus, type 2) HTN (hypertension) Obesity PONCE (obstructive sleep apnea) Systolic and diastolic CHF, chronic Thyroiditis Surgical History S/P hernia surgery Family History Mother No pertinent past medical history Father No pertinent past medical history Social History household members: other Smoking Status: Former smoker Assessment & Plan Assessment & Plan narrative: 1. Septic shock with BLANCA, acute metabolic encephalopathy, hypotension, and Acute hypercapneic/hypoxemic respiratory failure, with chronic hypoxemic respiratory failure, present on admission. -No vancomycin given negative MRSA swab. Continues on zosyn with possible aspiration and transaminase elevations though RUQ ultrasound not really remarkable for cholecystitis. Patient developed shock with pressor requirement on 08/16 until 08/17. Improved BP today, holding furosemide with last dose 08/16. Azithromycin was given as well on admit, stopped due to liver transaminase elevations. -continue with steroids, and duonebs -large diuresis with initial therapy, now intermittent / prn lasix dosing, will avoid today. -appreciate safety deposit boxes custodian consult -extubated 08/17 to BiPAP early AM, now on 2L via NC but markedly encephalopathic. 2. Acute systolic CHF exacerbation -presented with lower extremity edema and elevated bnp -last echo showed preserved ef, limited TTE unchanged with EF 30%. -trops indeterminate x2, no repeat necessary at this time with TTE findings. -continue lasix prn as noted above, holding today 3. Probable aspiration pneumonia -per ED staff patient had possible food particles suctioned from et tube -antibiotics as noted above -follow up sputum cultures -PROJECT BUYER eval today, limited with patient's continued encephalopathy, previously patient had been on a dysphagia diet per prior PROJECT BUYER evaluation last admission. 4. BLANCA -suspect secondary to CHF exacerbation and subsequent sepsis. -has philippe to monitor urine output -ct abdomen showed no evidence of urological obstruction 5. Possible hyperkalemia, resolved -potassium noted to be 6.4, but showed slight hemolysis. May be related to BLANCA. -did get insulin in ED and is now improved. 5. Acute cystitis -ua showed positive bacteria, cultures with aerococcus urinae -on antibiotics as above which will treat any acute cystitis. 6. Leg wound -swabbed in ED and cultures with a staph lugadensis, probably skin contaminant. Does not appear infected currently. -on antibiotics as noted above 7. Type 2 Diabetes on insulin -on 22U BID of lantus at home, was previously hypoglycemic with reduced lantus, but blood sugars have been high so will return patient to 22U BID today. 8. Morbid obesity -BMI >50, likely contributing to respiratory failure -dietitian evaluation 9. Hypertension -hold oral antihypertensives for now 10. Hypothyroidism -continue synthroid when tolerating diet 11. COPD with presumed exacerbation - will reduce solumedrol from BID to daily today, start oral prednisone when tolerating PO 12. Transaminase elevations, acute, not present on admission - Marked elevations in transaminase levels. AST 5965, ALT 2771. RUQ ultrasound similar to before with wall thickening, cannot definitively rule out cholceystitis though this seems unlikely given negative alk phos and normal bili. - recheck RUQ ultrasound today to eval for possible portal venous thrombosis. - Hepatitis serologies pending. - suspect ischemic due to septic shock possibly in combination with drug induced liver injury. Azithromycin was stopped. No significant bilirubin elevation. CODE: Full Proxy: Roxy Berry, daughter Dispo: remains ICU, possible downgrade to floor care later today if stable after extubation and BP improved. I spent 40 minutes providing critical care management this patient. This excludes time spent in performing separately billed procedures. Quality VTE Deep Vein Thrombosis/Pulmonary Embolism Present on Admission: No
--- NOTE | 2022-08-18 11:53 | ST.IPCSEOM ---
Visit Care Team Role Provider Type Simone Rodgers MD Primary Care Provider Non-Staff Specialty: Family Practice Address: [facility], [address] [place] [address], [address] Email: Samm Bloom MD Other Providers Physician Specialty: Medical Address: Phone: Fax: Email: Karen Hall MD Other Providers Physician Specialty: Medical Address: Phone: Fax: Email: Jim Talamantes MD Other Providers Physician Specialty: Medical Address: [address] [place], [address] Phone: Fax: Email: Ezekiel Tate MD Other Providers Physician Specialty: Internal Medicine Address: Phone: Fax: Email: Romero Faustin MD Other Providers Physician Specialty: Medical Address: Phone: Fax: Email: Gracie Gerardo MD Other Providers Physician Specialty: Anesthesiology Internal Medicine Address: [address] [place], [address] Fax: Email: [email or web address] Rodrigo Agarwal MD Other Providers Physician Specialty: Internal Medicine Address: [address] [place], [address] Phone: Fax: Email: [email or web address] Mark Aguilar MD Other Providers Physician Specialty: Internal Medicine Address: Phone: Fax: Email: Gustavo Hall MD Other Providers Physician Specialty: Medical Address: Phone: Fax: Email: Valdemar Pacheco MD Other Providers Physician Specialty: Internal Medicine Address: [address] [place], [address] Phone: Fax: Email: Jan Soriano MD Other Providers Physician Specialty: Medical Address: [address], [address] Phone: Fax: Email: Teofilo Arredondo MD Other Providers Physician Specialty: Medical Address: Phone: Fax: Email: Meghan Oliveira Other Providers Physician Specialty: Medical Address: Phone: Fax: Email: Katharine Ramos MD Other Providers Physician Specialty: Internal Medicine Address: Phone: Fax: Email: Jayne Muhammad DO Emergency Provider Physician Referring Provider Specialty: Emergency Medicine Address: [address], [place], [address] Email: [email or web address] Johnathan Ramirez MD Admit Provider Physician Attending Provider Specialty: Hospitalist Address: [address] [place] [address], [address] Fax: Email: [email or web address] Acute respiratory failure with hypoxia (08/15/22) Past Medical History (Last Reviewed 08/15/22 @ 23:35 by Johnathan Ramirez MD) Chronic hypoxemic respiratory failure (Medical) COPD (chronic obstructive pulmonary disease) (Medical) DM2 (diabetes mellitus, type 2) (Medical) HTN (hypertension) (Medical) Obesity (Medical) PONCE (obstructive sleep apnea) (Medical) Systolic and diastolic CHF, chronic (Medical) Thyroiditis (Medical) Speech-Language Pathology Swallow Evaluation [employer] Clinical Swallow Evaluation Start: 08/17/22 15:05 Freq: Status: Active Protocol: Document 08/18/22 10:58 LNK (Rec: 08/18/22 11:53 LNK [id number]) Clinical Swallow Evaluation Session Time Visit Start Time 09:40 Visit Stop Time 10:05 Total Visit Minutes [address] Gillespie Setting Assessment Location Acute Care Visit Type Note Type Initial evaluation Next Note Type Next Note Type Re-evaluation Patient Information Identification Type Name,Wristband History Pt s a 61W with PMH COPD on 2L O2, PONCE on cpap, CHFpEF, morbid obesity, DM on insulin, htn, hypothyroid who presented to the Ed on 08/15/22 with shortness of breath. She has been feeling worse for the last couple weeks per the ED physician note. Chest xray at that time was notable for interstitial and central vascular congestion. She was noted by ED staff to possibly have strawberry food particles suctioned from ET tube. She was ordered for antibiotics, steroids, and lasix. She was sedated and was placed on vent settings tv 350, rr 18, peep 10, fio 2 50%. A chest xray on 08/16/22 indicated There are diffuse interstitial radiopacities. The lung bases are not well characterized; however airspace opacities likely persist at the left lung base similar to the study dated August 15, 2022. Pt diagnosed with possible aspiration pneumonia. Pt was extubated 08/17/22 and put on bipap. This morning nursing reported that the pt was on a nasal cannula and was more responsive to tolerate swallow evaluation. Subjective Observations Pt was in be with nasal canula in place. Pt appeared SOB. pt responded with 7-31-60 to all orientation questions. Pt was able to follow directions with follow up cuing. Reported by Patient Current Diet Nothing by mouth Objective Assessment Mental Status Confused,Lethargic Oral Integrity Thrush,Xerostomia/Dry mouth Dentition Missing teeth Lip Function Mild impairment Observation of Lips at Rest Symmetrical Pucker Within normal limits Lip Retraction Within normal limits Alternating Pucker/Lip Retraction Within normal limits Tongue Function Within normal limits Observations of Tongue at Rest Within normal limits Tongue Protrusion Within normal limits Tongue Retraction Within normal limits Tongue Lateralization Within normal limits Jaw Function Within normal limits Comment OME was observed to be WNL. Pt is edentulous and has been for years. Nursing stated that daughter reports that the pt has no dentures. Food and Liquid Trials Position During Assessment Slightly reclined Liquids Trialed Ice chips,Thin,Honey Administration Type Tea spoon,Dependent feeding Oral Impairment Within functional limits Pharyngeal Impairment Moderately impaired Pharyngeal Phase Comments Pt presented with an audible swallow suggesting poor coordination among pharyngeal structures. Swallow appears to be effortful for the pt. One half to one teaspoonsful of thin and honey thick liquids were trialed. Pt coughed following all trials. At one point following a small amount of thin liquids, reported I can't breath followed by a break for pt to fell comfortable breathing O2 sat was noted to be 88%. 3 more half teaspoon trial of honey thick liquids were trialed, after which pt indicated she wanted to stop because its too hard to breathe. Pt's cough was observed to be dry initially and becoming more wet as the trials continued. Fatigue/Endurance Moderate fatigue Results Pt presents with oropharyngeal dysphagia secondary to lack of dentition and compromised airway status and protection. Pt has significant respiratory limitations (e.g., COPD on 2L O2, PONCE on cpap, CHFpEF). PO intake requires the airway to close for swallows which increases difficulty breathing in pt's with these diagnoses. Pt's O2 sats dropped into the high 80s following each trial. Recommend continuation of NPO status as pt presets with aspiration risk. Findings Swallowing Function Oropharyngeal phase dysphagia Severity of Swallow Impairment Severely impaired Contributing Factors to Swallow Reduced alertness or attention Impairment ,Reduced oral strength/ coordination/sensation, Mastication inefficiency, Impaired velopharyngeal closure/coordination,Delayed swallow initiation,Reduced laryngeal excursion,Impaired airway protection Prognosis Fair Based on Bed bound,History of aspiration/aspiration pneumonia,Comorbidities, Duration of symptoms/severity Recommendations Instrumental Assessment Yes Swallowing Treatment Yes Recommended Solids Nothing by Mouth Recommended Liquids Nothing by Mouth Other Recommendations Instrumental assessment is recommended in order to more accurately assess the pt's pharyngeal swallow safety. However, the pt would not be able to tolerate an MBS at this time and, given her size, she would be unable to fit within the space /seating area for the MBS. FEES assessment (Fiberoptic Endoscopic Evaluation of Swallowing) would be the optimal way to assess the pt's pharyngeal swallow at this time. However, this instrumental assessment is only available by contacting a mobile FEES provider. Discharge Recommendations residential facility,[facility] buttermaker care facility Education Patient/Caregiver Education Described results of evaluation,Patient expressed understanding of evaluation, Patient requires further education/training Goals Short-term Goals Swallowing to be assessed further as pt is able to tolerate
--- NOTE | 2022-08-18 12:01 | DI.US.S_ITS ---
PROCEDURE: US ABDOMEN LIMITED INDICATIONS: please eval portal flow to rule out thrombosis TECHNIQUE: Real-time scanning was performed of the abdominal and retroperitoneal organs, with image documentation. Color and pulse Doppler interrogation was also performed of the hepatic and splenic vessels, or of the lesion of interest. COMPARISON: [facility], US, US ABDOMEN LIMITED, 08/17/2022, 15:09. FINDINGS: Liver: Liver is normal in size and homogeneous in echotexture. Doppler: Main portal vein is patent, with luminal diameter of 17 mm (normal of 13-16 mm). On pulse Doppler interrogation, portal vein flow direction is hepatopetal. IMPRESSION: Patent portal vein. Portal vein is slightly dilated, measuring 17 millimeters. Findings may indicate portal hypertension. Dictated by: Kris Scott M.D. on 08/18/2022 at 14:15 Approved by: Kris Scott M.D. on 08/18/2022 at 14:16
[2022-08-18] MEDS: FUROSEMIDE 40 MG/4 ML VIAL IV (14:46)
--- NOTE | 2022-08-18 15:28 | PT-IP ANOTE ---
PT eval received and EMR reviewed. checked with nurse and stated that pt is not medically appropriate to do PT. stated that they might intubate pt back. Hospitalist stated that he will d/c PT eval order.
[2022-08-18 15:49] LABS: Hepatitis B Surface Antigen NEGATIVE s/c (NEGATIVE)
[2022-08-18 16:18] LABS: Hep C Virus Ab w/Reflex Quant NEGATIVE s/c (NEGATIVE)
[2022-08-18] MEDS: fentaNYL 1,000 MCG in DEXTROSE 5% IN WATER 230 ML 22.488 MCG IV (17:10)
[2022-08-18] MEDS: propofoL 1,000 MG/100 ML VIAL 3.855 MG IV (17:10)
--- NOTE | 2022-08-18 17:19 | PM.PROC.1 ---
Procedures Date/Time Date of procedure: 08/18/22 Time of procedure: 17:00 Intubation Time out performed: Yes Sedative: other (90mg propofol, 100mcg fentanyl) Paralytic: rocuronium (50 mg) Laryngoscope: other (optical stylet) ET tube size: 7.5 ET tube uncuffed: No Tube secured depth (cm): 23 Tube secured location: teeth ((gums)) Tube placement confirmation: visualized tube passing through cords, equal breath sounds bilaterally, no breath sounds over epigastrium and confirmation by capnometry Patient tolerated procedure: well and no complications Intubation complications: none
--- NOTE | 2022-08-18 17:20 | DI.RAD.S_ITS ---
PROCEDURE: XR CHEST 1V INDICATIONS: re-intubation, gastric tube placement TECHNIQUE: One view of the chest was acquired. COMPARISON: [facility], CR, XR CHEST 1V, 08/17/2022, 20:49. FINDINGS: Surgical changes and devices: Endotracheal tube is present approximately 9 mm superior to the ron. Left-sided PICC line is unchanged. Nasogastric tube is present with distal tip appearing to project immediately below the hemidiaphragm. However, this is significantly limited in evaluation and cannot exclude a more distal extension. Lungs and pleura: Lungs are hypoinflated limiting evaluation. Persistent left effusion. No pleural effusions or pneumothorax. Mediastinum: Mediastinal contours appear normal. Heart size is normal. Bones and chest wall: No suspicious bony lesions. Overlying soft tissues appear unremarkable. IMPRESSION: Support lines as above. Distal tip of the nasogastric tube is not well seen although at least the proximal aspect is felt to be projecting below the hemidiaphragm. Repeat view is recommended. Dictated by: Kaykay Beckman M.D. on 08/18/2022 at 18:05 Approved by: Kaykay Beckman M.D. on 08/18/2022 at 18:07
--- NOTE | 2022-08-18 17:21 | PM.EVENT ---
Event Note Date Patient Seen: 08/18/22 Time Patient Seen: 17:21 Event Note (Rapid Response, Code, or fall): Patient was becoming much more lethargic over the course of the day. Repeat blood gas with slightly worsened acidosis and hypercapnea, was on BiPAP for 3 hours without much improvement in mentation, blood gas essentially unchanged. Patient also becoming more bradycardic with prolonged QT on EKG. She was reintubated, arterial line placed as well by anesthesia. Daughter was updated over the phone.
--- NOTE | 2022-08-18 17:21 | PM.PROC.1 ---
Procedures Date/Time Date of procedure: 08/18/22 Time of procedure: 17:15 Arterial Line Time out performed: Yes Size (Gauge): 20 Technique used: guide wire technique Post-Procedure: dry sterile dressing placed Patient tolerated procedure: Well and No complications Complications: none Site: right and radial
[2022-08-18] MEDS: dexmedeTOMIDine in 0.9 % NaCL 400 MCG/100 ML PLAST..BAG 6.43 MCG IV (17:45)
[2022-08-18] MEDS: NOREPINEPHRINE BITARTRATE/D5W 4 MG/250 ML PLAST..BAG 30 MG IV (17:46)
--- NOTE | 2022-08-18 18:56 | PC.NURSE ---
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 1655 Dr Lara at bedside 1659 BiPap removed 1700 Bagging pt 100% 1700 Time out called 1702 Propofol 90mcg pushed 1703 50 of Rocoronium 1704 ETT 23@ gums [address] 1720 Restraints ordered and placed Vent settings 30% TV 430 RR 16 PEEP 5 1730 OG placed, CXR confirmed ETT and OG Pt resting comfortably, VSS, restraints in place, sedation and norepi infusing as ordered. Will continue to monitor
[2022-08-18 19:14] LABS: Fractionated Inspired Oxygen 30; HCO3 VBG 34 mmol/L (24-28); Oxygen Saturation VBG 56 % (70-75); PCO2 VBG 64.7 mmHg (45-50); PO2 VBG 33 mmHg (35-45); Total CO2 VBG 36 mmol/L (24-29); pH VBG 7.33 (7.33-7.43)
[2022-08-18 19:17] LABS: HCO3 VBG 34 mmol/L (24-28); Oxygen Saturation VBG 55 % (70-75); PCO2 VBG 64.6 mmHg (45-50); PO2 VBG 32 mmHg (35-45); Total CO2 VBG 36 mmol/L (24-29); pH VBG 7.33 (7.33-7.43)
[2022-08-18 19:18] LABS: Fractionated Inspired Oxygen 30
[2022-08-18 19:23] LABS: HCO3 ABG 30 mmol/L (23-27); Oxygen Saturation ABG 96 % (95-100); PCO2 ABG 39.7 mmHg (35-45); PO2 ABG 74 mmHg (80-100); TCO2 ABG 31 mmol/L (23-27); pH ABG 7.49 (7.35-7.45)
[2022-08-18 19:24] LABS: Fractionated Inspired Oxygen 28
--- NOTE | 2022-08-18 20:42 | DI.RAD.S_ITS ---
PROCEDURE: XR CHEST 1V INDICATIONS: OGT position TECHNIQUE: One view of the chest was acquired. COMPARISON: [facility], CR, XR CHEST 1V, 08/18/2022, 17:18. FINDINGS: Surgical changes and devices: Endotracheal tube is redemonstrated with the tip approximately 1 cm from the ron. Orogastric tube extends into the stomach with the tip in the region of the gastric antrum. Lungs and pleura: There is persistent pulmonary edema. A small left pleural effusion is redemonstrated with bibasilar atelectasis or consolidation. Mediastinum: Mediastinal contours appear unchanged. Heart size is enlarged. Bones and chest wall: No suspicious bony lesions. Overlying soft tissues appear unremarkable. IMPRESSION: 1. Endotracheal tube tip approximately 1 cm from the ron. Recommend withdrawal by approximately 2-3 cm. 2. Orogastric tube extends into the stomach. 3. Persistent pulmonary edema, small left pleural effusion, and bibasilar atelectasis or consolidation. Dictated by: Dylan Mccloud M.D. on 08/18/2022 at 22:47 Approved by: Dylan Mccloud M.D. on 08/18/2022 at 22:52
--- NOTE | 2022-08-18 20:50 | PM.ICURNDS ---
- Date Patient Seen: 08/18/22 Time Patient Seen: 20:50 :: This patient was seen via real time interactive two-way audiovisual telecommunication. Note: intubated earlier today for worsening respiratory status likely 2/2 to volume overload, PONCE/OHV and morbid obesity cxr reviewed, ett in place US shows portal vein patent lasix given, good response check cmp replace lytes prn repeat cxr confirm ogt can start feeds minimize sedation increase peep, keep sat 88-92% consider bronchoscopy for secretions discussed with bedside nurse
[2022-08-18 21:45] LABS: Albumin 3.6 g/dL (3.5-5.0); Albumin Globulin Ratio 1.2 (1.0-2.8); Alkaline Phosphatase 43 U/L (38-126); BUN Creatinine Ratio 32.3 (6-22); Bilirubin Total 1.1 mg/dL (0.2-1.3); Blood Urea Nitrogen 61 mg/dL (7-17); Calcium 9.1 mg/dL (8.4-10.2); Carbon Dioxide 31 mmol/L (22-32); Chloride 100 mmol/L (98-107); Estimated Glomerular Filt Rate 30 mL/min (>60); Globulin 2.9 g/dL (1.7-4.1); Glucose 319 mg/dL (80-110); HEMOLYSIS 24 (0-50); Potassium 4.2 mmol/L (3.4-5.1); Sodium 140 mmol/L (137-145); Total Protein 6.5 g/dL (6.3-8.2)
--- NOTE | 2022-08-18 21:49 | PC.NURSE ---
Addendum entered by Marni Walsh R.N. 08/19/22 06:28: Patient remains sedated-RASS -3, Precedex at 0.3mcg/kg/hr, Fentanyl at 0.7mcg/kg/hr, propofol off. Levophed remains off. No other changes to vent settings. 4550ml UOP overnight, approximately 50ml thick bile output from OGT. 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 Goal for SpO2 88-92%, CMP and CXR ordered and obtained. Levophed titrated off at 5. A-line patent, fair correlation with NBP.
[2022-08-18 21:56] LABS: Alanine Aminotransferase 1926 IU/L (<35)
[2022-08-18 22:37] LABS: Aspartate Aminotransferase 1994 IU/L (14-36)
[2022-08-18] MEDS: dexmedeTOMIDine in 0.9 % NaCL 400 MCG/100 ML PLAST..BAG 16.074 MCG IV (23:56)
[2022-08-19] VITALS (49 sets, daily range): BP systolic 134–164; BP diastolic 66–93; PULSE 47–78; RESP 16–45; TEMP 37.3–38.2; O2SAT 73–100
[2022-08-19] MEDS: PIPERACILLIN/TAZO 4.5 GM in SODIUM CHLORIDE 0.9% 100 ML IV ×3 (01:52→18:16)
[2022-08-19] MEDS: fentaNYL 1,000 MCG in DEXTROSE 5% IN WATER 230 ML 22.488 MCG IV (02:48)
[2022-08-19] MEDS: ALBUTEROL/IPRATROPIUM 3 ML AMPUL INH ×6 (03:00→22:50)
[2022-08-19] MEDS: HEPARIN 5,000 UNIT/ML VIAL 7500 UNIT SUBCUT ×3 (03:27→20:21)
[2022-08-19] MEDS: INSULIN LISPRO 100 UNIT/ML 3ML VIAL SUBCUT ×4 (03:27→20:22)
[2022-08-19 04:38] LABS: Hepatitis B Core Antibody Negative (Negative)
[2022-08-19 05:03] LABS: INR 1.6 (0.9-1.3); Prothrombin Time 18.4 SECONDS (10.1-12.7)
[2022-08-19 05:06] LABS: PTT Partial Thromboplastin Tim 26 SECONDS (26-36)
[2022-08-19 05:11] LABS: Albumin 3.7 g/dL (3.5-5.0); Albumin Globulin Ratio 1.1 (1.0-2.8); Alkaline Phosphatase 44 U/L (38-126); BUN Creatinine Ratio 31.8 (6-22); Bilirubin Total 0.9 mg/dL (0.2-1.3); Blood Urea Nitrogen 61 mg/dL (7-17); Calcium 9.1 mg/dL (8.4-10.2); Carbon Dioxide 31 mmol/L (22-32); Chloride 100 mmol/L (98-107); Estimated Glomerular Filt Rate 29 mL/min (>60); Globulin 3.3 g/dL (1.7-4.1); Glucose 322 mg/dL (80-110); HEMOLYSIS < 15 (0-50); Magnesium 2.2 mg/dL (1.6-2.3); Potassium 3.7 mmol/L (3.4-5.1); Sodium 141 mmol/L (137-145)
[2022-08-19] MEDS: dexmedeTOMIDine in 0.9 % NaCL 400 MCG/100 ML PLAST..BAG 16.074 MCG IV (05:12)
[2022-08-19 05:21] LABS: Hematocrit 38.3 % (36-46); Hemoglobin 12.7 g/dL (12.0-16.0); Mean Corpuscular HGB Conc 33.1 % (30-36); Mean Corpuscular Hemoglobin 32.9 PG (26-34); Mean Corpuscular Volume 99.5 fL (80-100); Platelet Count 151 X10^3/uL (150-400); Red Blood Cell Count 3.85 X10^6/uL (4.0-5.2); Red Cell Distribution Width 16.4 % (11.6-14.8); White Blood Cell Count 9.1 X10^3/uL (4.5-11.0)
[2022-08-19 05:22] LABS: Add Manual Diff / Slide Review YES
[2022-08-19 05:24] LABS: Alanine Aminotransferase 1836 IU/L (<35); Aspartate Aminotransferase 1235 IU/L (14-36)
[2022-08-19 06:47] LABS: Neutrophils Absolute Manual 8008 /uL (3000-5900); Nucleated Red Blood Cells 3 #/Diff; Total Cells Counted 100
[2022-08-19 06:48] LABS: Polychromasia 1+
--- NOTE | 2022-08-19 07:33 | DI.RAD.S_ITS ---
PROCEDURE: XR CHEST 1V INDICATIONS: intubated, reassess fluid status TECHNIQUE: One view of the chest was acquired. COMPARISON: [facility], CR, XR CHEST 1V, 08/18/2022, 20:45. FINDINGS: Surgical changes and devices: ET tube, the tip of which is approximately 1.2 cm above the ron. Slight retraction is suggested. Lungs and pleura: Bibasilar infiltrates and left pleural effusion. Mediastinum: Mediastinal contours appear normal. Heart size is normal. Bones and chest wall: No suspicious bony lesions. Overlying soft tissues appear unremarkable. IMPRESSION: 1. ET tube tip approximately 1.2 cm above the ron. Slight retraction is recommended. 2. Bibasilar infiltrates and left pleural effusion. Dictated by: Hadley Brunner M.D. on 08/19/2022 at 9:56 Approved by: Hadley Brunner M.D. on 08/19/2022 at 9:58
[2022-08-19] MEDS: INSULIN GLARGINE 100 UNIT/ML 3ML PEN 22 UNIT SUBCUT (09:07)
[2022-08-19] MEDS: PANTOPRAZOLE 40 MG VIAL IV (09:09)
[2022-08-19] MEDS: NYSTATIN POWDER 15GM 1 APPLIC TOP ×2 (09:18→20:24)
--- NOTE | 2022-08-19 09:41 | PM.PN.EICU ---
Subjective Subjective IF CAMERA ACTIVATED, patient seen via real-time interactive audiovisual communication: Camera activated Consent obtained for tele-rn quality care: Yes Patient Location: ICU Provider location (State): [place] Other participants/roles: Dr. Gillespie Current Medications Current Medications Medications: Home Medications acetaminophen 325 mg tablet (Tylenol) 650 mg PO TID 05/25/22 [History Confirmed 08/15/22] aspirin 81 mg tablet,delayed release 81 mg PO DAILY 05/25/22 [History Confirmed 08/15/22] budesonide-formoterol HFA 160 mcg-4.5 mcg/actuation aerosol inhaler 2 puff inhalation Q4H PRN Wheezing 05/25/22 [History Confirmed 08/15/22] bupropion HCl 150 mg tablet,12 hr sustained-release 150 mg PO BEDTIME 05/25/22 [History Confirmed 08/15/22] carvedilol 3.125 mg tablet 3.125 mg PO BID 05/25/22 [History Confirmed 08/15/22] cyanocobalamin (vitamin B-12) 500 mcg tablet 500 mcg PO DAILY 05/25/22 [History Confirmed 08/15/22] fenofibrate 160 mg tablet 160 mg PO DAILY 05/25/22 [History Confirmed 08/15/22] ferrous sulfate 325 mg (65 mg iron) tablet 325 mg PO DAILY 05/25/22 [History Confirmed 08/15/22] fluoxetine 20 mg tablet 20 mg PO DAILY 05/25/22 [History Confirmed 08/15/22] fluticasone propionate 50 mcg/actuation nasal spray,suspension 2 spray intranasal DAILY 05/25/22 [History Confirmed 08/15/22] gabapentin 300 mg capsule 300 mg PO BEDTIME 05/25/22 [History Confirmed 08/15/22] insulin glargine 100 unit/mL (3 mL) subcutaneous pen 22 unit SUBCUT BID 05/25/22 [History Confirmed 08/16/22] insulin lispro 100 unit/mL subcutaneous solution (Humalog U-100 Insulin) 4 unit SUBCUT TIDWM 05/25/22 [History Confirmed 08/16/22] lidocaine 5 % topical patch 1 patch topical DAILY 05/25/22 [History Confirmed 08/15/22] loratadine 10 mg tablet 10 mg PO DAILY 05/25/22 [History Confirmed 08/15/22] magnesium oxide 200 mg PO BID 05/25/22 [History Confirmed 08/15/22] meclizine 25 mg tablet 25 mg PO Q8HR PRN Dizziness 05/25/22 [History Confirmed 08/15/22] montelukast 10 mg tablet 10 mg PO DAILY 05/25/22 [History Confirmed 08/15/22] nystatin 100,000 unit/gram topical powder 1 applic topical BID PRN Rash 05/25/22 [History Confirmed 08/16/22] ondansetron 4 mg disintegrating tablet 4 mg PO Q8H PRN Nausea 05/25/22 [History Confirmed 08/15/22] rosuvastatin 40 mg tablet 40 mg PO DAILY 05/25/22 [History Confirmed 08/15/22] sennosides 8.6 mg tablet (senna) 17.2 mg PO BEDTIME 05/25/22 [History Confirmed 08/15/22] tiotropium bromide 18 mcg capsule with inhalation device (Spiriva with HandiHaler) 1 cap inhalation DAILY 05/25/22 [History Confirmed 08/15/22] trazodone 50 mg tablet 50 mg PO BEDTIME 05/25/22 [History Confirmed 08/15/22] albuterol sulfate 90 mcg/actuation aerosol inhaler 4 puff inhalation Q4H PRN Shortness Of Breath Or Wheezing 08/15/22 [History Confirmed 08/15/22] levothyroxine 175 mcg tablet 175 mcg PO DAILY 08/15/22 [History Confirmed 08/15/22] potassium chloride 10 mEq tablet,extended release 10 meq PO DAILY 08/15/22 [History Confirmed 08/15/22] torsemide 10 mg tablet 20 mg PO BID 08/15/22 [History Confirmed 08/16/22] Visit Medications (administered) Generic Name Dose Route Start Last Admin Trade Name Freq PRN Reason Stop Dose Admin Acetaminophen 650 mg 08/16/22 14:49 08/17/22 01:19 Acetaminophen Susp 650 Mg/20.3 Ml Udc PO 650 mg Q6HR PRN Administration Fever/Mild Pain (1-3) Acetaminophen 650 mg 08/17/22 14:26 08/17/22 14:58 Acetaminophen 650 Mg Supp WI 650 mg Q6HR PRN Administration Fever/Mild Pain (1-3) Albuterol 2.5 mg 08/15/22 23:46 08/17/22 14:39 Albuterol 2.5 Mg/3 Ml Neb (Adult) INH 2.5 mg [id number] PRN Administration Shortness Of Breath Albuterol/Ipratropium 3 ml 08/15/22 23:46 08/19/22 08:50 Albuterol/Ipratropium 3 Ml Ampul INH 3 ml [id number] JAY JAY Administration Heparin Sodium (Porcine) 7,500 unit 08/16/22 12:00 08/19/22 03:27 Heparin 5,000 Unit/Ml Vial SUBCUT 7,500 unit Q8H JAY JAY Administration Piperacillin Sod/Tazobactam 100 mls @ 25 mls/hr 08/16/22 10:00 08/19/22 06:26 Sod 4.5 gm/ Sodium Chloride IV Infused Q8H JAY JAY Infusion dexmedeTOMIDine in 0.9 % NaCL 400 mcg in 100 mls @ 6.43 mls/hr 08/16/22 09:45 08/19/22 06:26 Precedex IV 0.3 mcg/kg/hr TITRATE JAY JAY 9.644 mls/hr Titration Protocol 0.2 MCG/KG/HR NOREPINEPHRINE BITARTRATE/D5W 4 mg in 250 mls @ 30 mls/hr 08/16/22 11:15 08/18/22 21:11 Levophed IV 0 mcg/min TITRATE JAY JAY 0 mls/hr Titration Protocol 8 MCG/MIN Fentanyl 1,000 mcg/ Dextrose 250 mls @ 22.488 mls/hr 08/18/22 15:45 08/19/22 02:48 IV 0.7 mcg/kg/hr TITRATE JAY JAY 22.488 mls/hr Administration Protocol 0.7 MCG/KG/HR Propofol 1,000 mg in 100 mls @ 3.855 mls/hr 08/18/22 15:45 08/19/22 00:45 Propofol IV 0 mcg/kg/min TITRATE JAY JAY 0 mls/hr Titration Protocol 5 MCG/KG/MIN Insulin Glargine 22 unit 08/18/22 09:00 08/19/22 09:07 Insulin Glargine 100 Unit/Ml 3ml Pen SUBCUT 22 unit BID JAY JAY Administration Insulin Human Lispro 0 unit 08/17/22 09:00 08/19/22 09:07 Insulin Lispro 100 Unit/Ml 3ml Vial SUBCUT 7 unit Q6H JAY JAY Administration Protocol Methylprednisolone 60 mg 08/18/22 11:00 08/18/22 12:27 Methylprednisolone 125 Mg/2 Ml Vial IV 60 mg 1100 JAY JAY Administration Montelukast Sodium 10 mg 08/16/22 09:00 08/19/22 09:17 Montelukast 10 Mg Tablet PO Not Given DAILY JAY JAY Nystatin 1 applic 08/18/22 09:00 08/19/22 09:18 Nystatin Powder 15gm TOP 1 applic BID JAY JAY Administration Pantoprazole Sodium 40 mg 08/17/22 09:00 08/19/22 09:09 Pantoprazole 40 Mg Vial IV 40 mg DAILY JAY JAY Administration Objective Ventilator Parameters: Ventilator Settings FiO2 28 RT Vent Frequency 16 Ventilator Tidal Volume 430 Exhaled Vt/kg IBW 75 Positive End Expiratory 8 Pressure Ventilator Pressure Support 8 Inspiratory Phase Time 0.9 I:E Ratio 1:3.2 Patient Position HOB >= 30 degrees Labs 08/19/22 04:35 08/19/22 04:35 Labs: Laboratory Results - last 24 hr 08/18/22 08/18/22 08/18/22 05:00 05:00 14:18 WBC RBC Hgb Hct MCV MCH MCHC RDW Plt Count Neut % (Auto) Lymph % (Auto) Garza % (Auto) Eos % (Auto) Baso % (Auto) Lymph # (Auto) Garza # (Auto) Baso # (Auto) Total Counted Seg Neutrophils % Band Neutrophils % Lymphocytes % (Manual) Atypical Lymphs % Monocytes % (Manual) Neutrophils # (Manual) Nucleated RBCs RBC Morphology Polychromasia PT INR APTT ABG pH ABG pCO2 ABG pO2 ABG HCO3 ABG Total CO2 ABG O2 Saturation ABG Base Excess VBG pH 7.33 VBG pCO2 64.7 H VBG pO2 33 L VBG HCO3 34 H VBG Total CO2 36 H VBG O2 Saturation 56 L VBG Base Excess 8.0 H FiO2 30 Sodium Potassium Chloride Carbon Dioxide BUN Creatinine Estimated GFR BUN/Creatinine Ratio Glucose Calcium Magnesium Total Bilirubin AST ALT Alkaline Phosphatase Total Protein Albumin Globulin Albumin/Globulin Ratio Hep Bs Antigen Negative Hep B Core Total Ab Negative Hepatitis C Antibody Negative 08/18/22 08/18/22 08/18/22 15:25 18:35 21:10 WBC RBC Hgb Hct MCV MCH MCHC RDW Plt Count Neut % (Auto) Lymph % (Auto) Garza % (Auto) Eos % (Auto) Baso % (Auto) Lymph # (Auto) Garza # (Auto) Baso # (Auto) Total Counted Seg Neutrophils % Band Neutrophils % Lymphocytes % (Manual) Atypical Lymphs % Monocytes % (Manual) Neutrophils # (Manual) Nucleated RBCs RBC Morphology Polychromasia PT INR APTT ABG pH 7.49 H ABG pCO2 39.7 ABG pO2 74 L ABG HCO3 30 H ABG Total CO2 31 H ABG O2 Saturation 96 ABG Base Excess 6.0 H VBG pH 7.33 VBG pCO2 64.6 H VBG pO2 32 L VBG HCO3 34 H VBG Total CO2 36 H VBG O2 Saturation 55 L VBG Base Excess 8.0 H FiO2 30 28 Sodium 140 Potassium 4.2 Chloride 100 Carbon Dioxide 31 BUN 61 H Creatinine 1.89 H Estimated GFR 30 L BUN/Creatinine Ratio 32.3 H Glucose 319 H Calcium 9.1 Magnesium Total Bilirubin 1.1 AST 1994 H ALT 1926 H Alkaline Phosphatase 43 Total Protein 6.5 Albumin 3.6 Globulin 2.9 Albumin/Globulin Ratio 1.2 Hep Bs Antigen Hep B Core Total Ab Hepatitis C Antibody 08/19/22 08/19/22 08/19/22 04:35 04:35 04:35 WBC 9.1 RBC 3.85 L Hgb 12.7 Hct 38.3 MCV 99.5 MCH 32.9 MCHC 33.1 RDW 16.4 H Plt Count 151 Neut % (Auto) Not Reportable Lymph % (Auto) Not Reportable Garza % (Auto) Not Reportable Eos % (Auto) Not Reportable Baso % (Auto) Not Reportable Lymph # (Auto) Not Reportable Garza # (Auto) Not Reportable Baso # (Auto) Not Reportable Total Counted 100 Seg Neutrophils % 83.0 H Band Neutrophils % 5.0 Lymphocytes % (Manual) 9.0 L Atypical Lymphs % 1.0 H Monocytes % (Manual) 2.0 Neutrophils # (Manual) 8008 H Nucleated RBCs 3 H RBC Morphology Not Reportable Polychromasia 1+ H PT 18.4 H D INR 1.6 H APTT 26 ABG pH ABG pCO2 ABG pO2 ABG HCO3 ABG Total CO2 ABG O2 Saturation ABG Base Excess VBG pH VBG pCO2 VBG pO2 VBG HCO3 VBG Total CO2 VBG O2 Saturation VBG Base Excess FiO2 Sodium 141 Potassium 3.7 Chloride 100 Carbon Dioxide 31 BUN 61 H Creatinine 1.92 H Estimated GFR 29 L BUN/Creatinine Ratio 31.8 H Glucose 322 H Calcium 9.1 Magnesium 2.2 Total Bilirubin 0.9 AST 1235 H ALT 1836 H Alkaline Phosphatase 44 Total Protein 7.0 Albumin 3.7 Globulin 3.3 Albumin/Globulin Ratio 1.1 Hep Bs Antigen Hep B Core Total Ab Hepatitis C Antibody Exam Vital Signs (past 8 hours): - 08/19/22 02:00 08/19/22 02:00 08/19/22 02:30 Temperature 99.5 F 99.7 F H Pulse Rate 73 59 L Respiratory Rate 16 22 Blood Pressure 147/75 H Pulse Oximetry 96 96 Oxygen Delivery Method 08/19/22 02:30 08/19/22 03:00 08/19/22 03:01 Temperature 99.9 F H Pulse Rate 57 L Respiratory Rate 16 Blood Pressure 145/73 H 147/70 H Pulse Oximetry 97 Oxygen Delivery Method 08/19/22 03:01 08/19/22 03:30 08/19/22 03:30 Temperature 99.9 F H 99.9 F H Pulse Rate 57 L 55 L Respiratory Rate 16 16 Blood Pressure 145/69 H Pulse Oximetry 96 97 Oxygen Delivery Method 08/19/22 04:00 08/19/22 04:00 08/19/22 04:00 Temperature 100.0 F H Pulse Rate 55 L Respiratory Rate 16 Blood Pressure 146/71 H Pulse Oximetry 96 Oxygen Delivery Method Mechanical Ventilation 08/19/22 04:30 08/19/22 04:30 08/19/22 05:00 Temperature 100.2 F H Pulse Rate 54 L Respiratory Rate 16 Blood Pressure 144/67 H 141/67 H Pulse Oximetry 97 Oxygen Delivery Method 08/19/22 05:00 08/19/22 05:30 08/19/22 05:30 Temperature 100.2 F H 100.2 F H Pulse Rate 53 L 52 L Respiratory Rate 16 16 Blood Pressure 144/69 H Pulse Oximetry 97 96 Oxygen Delivery Method 08/19/22 06:00 08/19/22 06:00 08/19/22 06:30 Temperature 100.2 F H 100.2 F H Pulse Rate 50 L 49 L Respiratory Rate 16 16 Blood Pressure 142/71 H Pulse Oximetry 96 98 Oxygen Delivery Method 08/19/22 06:30 08/19/22 07:00 08/19/22 07:00 Temperature 100.2 F H Pulse Rate 47 L Respiratory Rate 16 Blood Pressure 146/71 H 139/70 Pulse Oximetry 98 Oxygen Delivery Method 08/19/22 07:30 08/19/22 07:30 08/19/22 08:04 Temperature 100.4 F H Pulse Rate 48 L Respiratory Rate 16 Blood Pressure 137/70 Pulse Oximetry 98 Oxygen Delivery Method Mechanical Ventilation 08/19/22 08:00 08/19/22 08:00 08/19/22 08:31 Temperature 100.4 F H 100.4 F H Pulse Rate 47 L 48 L Respiratory Rate 16 16 Blood Pressure 141/76 H Pulse Oximetry 98 98 Oxygen Delivery Method 08/19/22 08:31 08/19/22 08:36 08/19/22 08:36 Temperature 100.4 F H Pulse Rate 60 Respiratory Rate 16 Blood Pressure 141/71 H 140/68 Pulse Oximetry 98 Oxygen Delivery Method 08/19/22 09:00 08/19/22 09:00 08/19/22 09:30 Temperature 100.6 F H 100.8 F H Pulse Rate 47 L 50 L Respiratory Rate 16 16 Blood Pressure 139/70 Pulse Oximetry 98 98 Oxygen Delivery Method 08/19/22 09:30 Temperature Pulse Rate Respiratory Rate Blood Pressure 142/70 H Pulse Oximetry Oxygen Delivery Method Fraction of Inspired Oxygen 30 SaO2/FiO2 Ratio 323 Oxygen Delivery Method Mechanical Ventilation Oxygen Flow Rate 2 Quality TeleICU VTE Deep Vein Thrombosis/Pulmonary Embolism Present on Admission: No Assessment & Plan Assessment & Plan narrative: patient seen on video, discussed with bedside nurse and provider Dr. Gillespie chart/labs/imaging reviewed no acute events overnight 61 year old female admitted to ICU with acute mixed resp failure CHF exacerbation COPD excerbation aspiration pneumonia acute on chronic renal failure hyperkalemia currently afebrile, HD stable, remains off pressors sedated on vent 30%/peep 8 sats 98%, minimal secrtions ast/alt 1900s, iproving -cxr improved congestion UA +ve, UCx aerococcus Suggest -neurochecks/seizure precautions -dc precedex, use fentanyl only -SAT/SBT today, would do try extubation tomorrow -keep sat 88-92% -continue nebs/steroids, switch to prednisone 40mg daily x2 -chest pt/pulm toilet -can give lasix 40mg -continue abx , total 7 days -check inr daily -repeat LFTs -feeds as tolerated -keep glucose 140-180s -monitor ins/outs -replace lytes prn -gi/dvt ppx -please call eICU if condition changes -d/w Dr. Gillespie total ccm time 45 mins
[2022-08-19] MEDS: FUROSEMIDE 40 MG/4 ML VIAL IV (10:20)
--- NOTE | 2022-08-19 10:31 | SLP.IPNOTE ---
Pt was re-intubated today (08/19/22). Per Dr. Gillespie, discharge ST orders. May attempt extubation again tomorrow (08/20/22) and will re-order speech at that time.
--- NOTE | 2022-08-19 11:18 | P.PN_ITS ---
Subjective Subjective Interval history: 61 year old female intubated for hypercapnic respiratory failure presumed due to CHF exacerbation on 08/15 , possible/probable aspiration as strawberry pieces were removed with intubation in the ER. Extubated 08/17 to BiPAP but required re- intubation the afternoon of 08/18 due to worsening mentation, hypercapnea. Overnight without acute events, but tele monitoring show bradycardia, did have a short run of NSVT. Exam Vital Signs (past 8 hours): - 08/19/22 03:30 08/19/22 03:30 08/19/22 04:00 Temperature 99.9 F H Pulse Rate 55 L Respiratory Rate 16 Blood Pressure 145/69 H 146/71 H Pulse Oximetry 97 Oxygen Delivery Method 08/19/22 04:00 08/19/22 04:00 08/19/22 04:30 Temperature 100.0 F H 100.2 F H Pulse Rate 55 L 54 L Respiratory Rate 16 16 Blood Pressure Pulse Oximetry 96 97 Oxygen Delivery Method Mechanical Ventilation 08/19/22 04:30 08/19/22 05:00 08/19/22 05:00 Temperature 100.2 F H Pulse Rate 53 L Respiratory Rate 16 Blood Pressure 144/67 H 141/67 H Pulse Oximetry 97 Oxygen Delivery Method 08/19/22 05:30 08/19/22 05:30 08/19/22 06:00 Temperature 100.2 F H Pulse Rate 52 L Respiratory Rate 16 Blood Pressure 144/69 H 142/71 H Pulse Oximetry 96 Oxygen Delivery Method 08/19/22 06:00 08/19/22 06:30 08/19/22 06:30 Temperature 100.2 F H 100.2 F H Pulse Rate 50 L 49 L Respiratory Rate 16 16 Blood Pressure 146/71 H Pulse Oximetry 96 98 Oxygen Delivery Method 08/19/22 07:00 08/19/22 07:00 08/19/22 07:30 Temperature 100.2 F H 100.4 F H Pulse Rate 47 L 48 L Respiratory Rate 16 16 Blood Pressure 139/70 Pulse Oximetry 98 98 Oxygen Delivery Method 08/19/22 07:30 08/19/22 08:04 08/19/22 08:00 Temperature Pulse Rate Respiratory Rate Blood Pressure 137/70 141/76 H Pulse Oximetry Oxygen Delivery Method Mechanical Ventilation 08/19/22 08:00 08/19/22 08:31 08/19/22 08:31 Temperature 100.4 F H 100.4 F H Pulse Rate 47 L 48 L Respiratory Rate 16 16 Blood Pressure 141/71 H Pulse Oximetry 98 98 Oxygen Delivery Method 08/19/22 08:36 08/19/22 08:36 08/19/22 09:00 Temperature 100.4 F H Pulse Rate 60 Respiratory Rate 16 Blood Pressure 140/68 139/70 Pulse Oximetry 98 Oxygen Delivery Method 08/19/22 09:00 08/19/22 09:30 08/19/22 09:30 Temperature 100.6 F H 100.8 F H Pulse Rate 47 L 50 L Respiratory Rate 16 16 Blood Pressure 142/70 H Pulse Oximetry 98 98 Oxygen Delivery Method 08/19/22 10:00 08/19/22 10:00 08/19/22 10:53 Temperature 100.8 F H Pulse Rate 50 L Respiratory Rate 16 Blood Pressure 145/69 H Pulse Oximetry 97 73 L Oxygen Delivery Method 08/19/22 10:30 08/19/22 10:30 08/19/22 11:00 Temperature 100.8 F H Pulse Rate 51 L Respiratory Rate 16 Blood Pressure 153/66 H 141/71 H Pulse Oximetry 97 Oxygen Delivery Method 08/19/22 11:00 Temperature 100.6 F H Pulse Rate 51 L Respiratory Rate 16 Blood Pressure Pulse Oximetry 100 Oxygen Delivery Method Fraction of Inspired Oxygen 30 SaO2/FiO2 Ratio 323 Oxygen Delivery Method Mechanical Ventilation Oxygen Flow Rate 2 Narrative Exam Narrative: GEN: intubated and sedated, morbidly obese HEENT: moist mucous membranes, pinpoint pupils, PERRL NECK: trachea midline, PULM: decreased breath sounds LLL CV: RRR, no murmurs ABD: soft, nontender, nondistended, no organomegaly EXT: warm and well perfused, 1-2+ edema, left lower leg wound healing well NEURO: intubated and sedated Objective Labs 08/19/22 04:35 08/19/22 04:35 Labs: Laboratory Results - last 24 hr 08/18/22 08/18/22 08/18/22 05:00 05:00 14:18 WBC RBC Hgb Hct MCV MCH MCHC RDW Plt Count Neut % (Auto) Lymph % (Auto) Mckenzie % (Auto) Eos % (Auto) Baso % (Auto) Lymph # (Auto) Mckenzie # (Auto) Baso # (Auto) Total Counted Seg Neutrophils % Band Neutrophils % Lymphocytes % (Manual) Atypical Lymphs % Monocytes % (Manual) Neutrophils # (Manual) Nucleated RBCs RBC Morphology Polychromasia PT INR APTT ABG pH ABG pCO2 ABG pO2 ABG HCO3 ABG Total CO2 ABG O2 Saturation ABG Base Excess VBG pH 7.33 VBG pCO2 64.7 H VBG pO2 33 L VBG HCO3 34 H VBG Total CO2 36 H VBG O2 Saturation 56 L VBG Base Excess 8.0 H FiO2 30 Sodium Potassium Chloride Carbon Dioxide BUN Creatinine Estimated GFR BUN/Creatinine Ratio Glucose Calcium Magnesium Total Bilirubin AST ALT Alkaline Phosphatase Total Protein Albumin Globulin Albumin/Globulin Ratio Hep Bs Antigen Negative Hep B Core Total Ab Negative Hepatitis C Antibody Negative 08/18/22 08/18/22 08/18/22 15:25 18:35 21:10 WBC RBC Hgb Hct MCV MCH MCHC RDW Plt Count Neut % (Auto) Lymph % (Auto) Mckenzie % (Auto) Eos % (Auto) Baso % (Auto) Lymph # (Auto) Mckenzie # (Auto) Baso # (Auto) Total Counted Seg Neutrophils % Band Neutrophils % Lymphocytes % (Manual) Atypical Lymphs % Monocytes % (Manual) Neutrophils # (Manual) Nucleated RBCs RBC Morphology Polychromasia PT INR APTT ABG pH 7.49 H ABG pCO2 39.7 ABG pO2 74 L ABG HCO3 30 H ABG Total CO2 31 H ABG O2 Saturation 96 ABG Base Excess 6.0 H VBG pH 7.33 VBG pCO2 64.6 H VBG pO2 32 L VBG HCO3 34 H VBG Total CO2 36 H VBG O2 Saturation 55 L VBG Base Excess 8.0 H FiO2 30 28 Sodium 140 Potassium 4.2 Chloride 100 Carbon Dioxide 31 BUN 61 H Creatinine 1.89 H Estimated GFR 30 L BUN/Creatinine Ratio 32.3 H Glucose 319 H Calcium 9.1 Magnesium Total Bilirubin 1.1 AST 1994 H ALT 1926 H Alkaline Phosphatase 43 Total Protein 6.5 Albumin 3.6 Globulin 2.9 Albumin/Globulin Ratio 1.2 Hep Bs Antigen Hep B Core Total Ab Hepatitis C Antibody 08/19/22 08/19/22 08/19/22 04:35 04:35 04:35 WBC 9.1 RBC 3.85 L Hgb 12.7 Hct 38.3 MCV 99.5 MCH 32.9 MCHC 33.1 RDW 16.4 H Plt Count 151 Neut % (Auto) Not Reportable Lymph % (Auto) Not Reportable Mckenzie % (Auto) Not Reportable Eos % (Auto) Not Reportable Baso % (Auto) Not Reportable Lymph # (Auto) Not Reportable Mckenzie # (Auto) Not Reportable Baso # (Auto) Not Reportable Total Counted 100 Seg Neutrophils % 83.0 H Band Neutrophils % 5.0 Lymphocytes % (Manual) 9.0 L Atypical Lymphs % 1.0 H Monocytes % (Manual) 2.0 Neutrophils # (Manual) 8008 H Nucleated RBCs 3 H RBC Morphology Not Reportable Polychromasia 1+ H PT 18.4 H D INR 1.6 H APTT 26 ABG pH ABG pCO2 ABG pO2 ABG HCO3 ABG Total CO2 ABG O2 Saturation ABG Base Excess VBG pH VBG pCO2 VBG pO2 VBG HCO3 VBG Total CO2 VBG O2 Saturation VBG Base Excess FiO2 Sodium 141 Potassium 3.7 Chloride 100 Carbon Dioxide 31 BUN 61 H Creatinine 1.92 H Estimated GFR 29 L BUN/Creatinine Ratio 31.8 H Glucose 322 H Calcium 9.1 Magnesium 2.2 Total Bilirubin 0.9 AST 1235 H ALT 1836 H Alkaline Phosphatase 44 Total Protein 7.0 Albumin 3.7 Globulin 3.3 Albumin/Globulin Ratio 1.1 Hep Bs Antigen Hep B Core Total Ab Hepatitis C Antibody PFSH Medical History Chronic hypoxemic respiratory failure COPD (chronic obstructive pulmonary disease) DM2 (diabetes mellitus, type 2) HTN (hypertension) Obesity PONCE (obstructive sleep apnea) Systolic and diastolic CHF, chronic Thyroiditis Surgical History S/P hernia surgery Family History Mother No pertinent past medical history Father No pertinent past medical history Social History household members: other Smoking Status: Former smoker Assessment & Plan Assessment & Plan narrative: 1. Septic shock with BLANCA, acute metabolic encephalopathy, hypotension, and Acute hypercapneic/hypoxemic respiratory failure, with chronic hypoxemic respiratory failure, present on admission. -No vancomycin given negative MRSA swab. Continues on zosyn with possible aspiration and transaminase elevations though RUQ ultrasound not really remarkable for cholecystitis. Patient developed shock with pressor requirement on 08/16 until 08/17. Improved BP today, holding furosemide with last dose 08/16. Azithromycin was given as well on admit, stopped due to liver transaminase elevations. Will continue zosyn x7 days unless cultures are able to be narrowed. -do not believe patient to have biliary source despite GBWT seen on ultrasound. -continue with steroids (taper down), and duonebs -large diuresis with initial therapy, now intermittent / prn lasix dosing, will continue as discussed below. -appreciate reimbursement consultant consult -extubated 08/17 to BiPAP early AM, then on 2L via NC but markedly encephalopat hic. Did not improved with BiPAP for approx 3 hours, reintubated on 08/18. -she is now off of pressor support, required as high as 8 of levophed. -she has had continued fever while on sedation, which resolved when off sedation. Suspect fevers are related to precedex. 2. Acute systolic CHF exacerbation -presented with lower extremity edema and elevated bnp -last echo showed preserved ef, limited TTE unchanged with EF 30%. -trops indeterminate x2, no repeat necessary at this time with TTE findings. -continued lasix prn as noted above initially with shock. She was given a dose prior to reintubation on 08/18 with approx 6 L output, with this she has improved creatinine and remains on minimal vent settings. May have been more volume overloaded than we thought. Will redose furosemide today at 40 mg IV. 3. Probable aspiration pneumonia -per ED staff patient had possible food particles suctioned from et tube -antibiotics as noted above -follow up sputum cultures -[employer] eval today, limited with patient's continued encephalopathy, previously patient had been on a dysphagia diet per prior [employer] evaluation last admission -continue zosyn 7 days unless sputum cultures result with an organism. 4. BLANCA -suspect secondary to CHF exacerbation and subsequent sepsis. -has philippe to monitor urine output -ct abdomen showed no evidence of urological obstruction 5. Possible hyperkalemia, resolved -potassium noted to be 6.4, but showed slight hemolysis. May be related to BLANCA. -did get insulin in ED and is now improved. 5. Acute cystitis -ua showed positive bacteria, cultures with aerococcus urinae -on antibiotics as above which will treat any acute cystitis. 6. Leg wound -swabbed in ED and cultures with a staph lugadensis, probably skin contaminant. Does not appear infected currently. -on antibiotics as noted above 7. Type 2 Diabetes on insulin -on 22U BID of lantus at home, was previously hypoglycemic with reduced lantus, but blood sugars have been high so will return patient to 22U BID today. 8. Morbid obesity -BMI >50, likely contributing to respiratory failure -dietitian evaluation 9. Hypertension -hold oral antihypertensives for now 10. Hypothyroidism -continue synthroid when tolerating diet 11. COPD with presumed exacerbation - will reduce solumedrol to 40 mg daily. continue for 5 more days or change to PO prednisone when able. 12. Transaminase elevations, acute, not present on admission - Marked elevations in transaminase levels. AST 5965, ALT 2771. Improved marke dly today. RUQ ultrasound similar to before with wall thickening, cannot definitively rule out cholceystitis though this seems unlikely given negative alk phos and normal bili. - recheck RUQ ultrasound to eval for possible portal venous thrombosis was negative on 08/18. - Hepatitis serologies negative thus far. - suspect ischemic due to septic shock possibly in combination with drug induced liver injury. Azithromycin was stopped. No significant bilirubin elevation. INR slightly up today will continue to follow 13. Bradycardia with prolonged QT interval - azithromycin discontinued, continue tele monitoring CODE: Full Proxy: Roxy Berry, daughter Dispo: remains ICU, possible downgrade to floor care later today if stable after extubation and BP improved. I spent 35 minutes providing critical care management this patient. This excludes time spent in performing separately billed procedures. Quality VTE Deep Vein Thrombosis/Pulmonary Embolism Present on Admission: No
[2022-08-19] MEDS: methylPREDNISolone 125 MG/2 ML VIAL 60 MG IV (11:22)
[2022-08-19] MEDS: dexmedeTOMIDine in 0.9 % NaCL 400 MCG/100 ML PLAST..BAG 9.644 MCG IV (14:22)
--- NOTE | 2022-08-19 17:18 | PC.NURSE ---
Day shift: Pt sedated with ordered medications (See MAR). 19 beat run of V-tach at 0835, provider Dr. Gillespie notified. BP stable during and afterward. SBT: fentanyl sedation paused at 10:05. Pt RASS 0 to -1, responding to voice, touch, and following commands such as nodding, squeezing hand. RT at bedside for SBT. Pt demonstrated low respiratory drive, respiratory rate less than 8/min for 5 min and desaturation on pulse oximetry less than 88% on CPAP 8 pressure support 5. Pt failed SBT. Vent settings FiO2 28, rate 16, VT 370, PEEP 8. Sedation medication restarted per protocol (see MAR). Turn sheet placed beneath pt for safer reposition. Blanchable erythema on coccyx with dime sized opening. Covered by Allevyn, barrier cream applied to buttocks. CHG bath provided. Pt bridged on pillows. Pt hypertensive 160's/80's. Provider Dr. Gillespie notified. Will continue to monitor. Care ongoing.
[2022-08-19] MEDS: fentaNYL 1,000 MCG in DEXTROSE 5% IN WATER 230 ML 12.85 MCG IV (17:40)
--- NOTE | 2022-08-19 20:09 | DIET.CONS2 ---
Dietary Inpatient Consultation Note Admission Date: 08/15/2022 21:58 Pt reintubated and restarted on TF. Recc continuing as written until extubated. Diet: 08/19/22 Lunch Tube Feeding Diet Diet Modifications: TF Supplement type: Glucerna 1.5 ashley TF mode of delivery: Continuous Starting flow rate mL/hr: 10 Flow rate goal mL/hr: 40 Titration Schedule to reach Goal Rate: 10 mL / hr qshift Max total daily volume in mL: 2,200 Free fluid: 250 Free Water Frequency: Q6H Comment: Q6H Nutrition Percent Meal Consumed pt is NPO still intubated 08/19/22 10:00 Type of Feeding Tube NG/OG 08/19/22 13:31 General Nutrition Dietary Nutrition Intervention Start: 08/16/22 14:48 Freq: Status: Active Protocol: Document 08/16/22 14:48 AP (Rec: 08/16/22 14:49 AP [id number]) Nutritional Needs Nutrition Patient receiving TPN/PPN/TF Yes TF Supplement type Glucerna 1.2 ashley Type of Feeding Tube NG/OG Nutritional Calculations Patient Data Protocol: NUTR.AMPUT Height 160 cm Weight 128.5 kg Weight Calculations Protocol: NUTR.WC [place] Body Weight (lbs) 114.95 [place] Body Weight (kgs) 52.14 Percent of [place] Body Weight (%) 246 Adjusted Body Weight (lbs) 157.04 Adjusted Body Weight (kgs) 71.23 BMI Protocol: NUTR.BMI Body Mass Index (BMI) 50.1 Body Mass Index (BMI) Classification Extreme Obesity Obesity Class III BEE - [place] Equation Protocol: NUTR.BEE Basal Energy Expenditure (BEE) (kcal) 1899.39 RMR - [place] Equation Protocol: NUTR.RMR Resting Metabolic Rate (kcal) 1827.52 Estimated Protein Requirements Based on Age and Weight Protocol: NUTR.EPR1 Estimated Protein Needs (grams/day) 102.8 Fluid Requirements - Method 1 Protocol: NUTR.FLUID Fluid Factor (Method 1) 30 mL/kg for Average Ad Fluid Requirements (Method 1) (mL/day) 3855 Fluid Requirements - Method 2 Fluid Requirements (Method 2) (mL/day) 3127.50 Fluid Requirements - Method 4 Fluid Requirements (Method 4) (mL/day) 3127.50 Fluid Requirements - Method 5 Fluid Requirements (Method 5) (mL/day) 1800.00 Electronically Signed by: Damaris Aburto 08/19/22 20:09 [facility] Dietitian [address] [id number]
[2022-08-19] MEDS: INSULIN GLARGINE 100 UNIT/ML 3ML PEN 30 UNIT SUBCUT (20:22)
--- NOTE | 2022-08-19 20:45 | PM.ICURNDS ---
- Date Patient Seen: 08/19/22 Time Patient Seen: 20:45 :: This patient was seen via real time interactive two-way audiovisual telecommunication. Note: Patient is currently intubated and sedated. Diuresed and negative ~5 liters. On precedex 0.6 and fentanyl 0.3. Cont diuresis to seek net negative fluid balance. Will reassess in the am for SAT and SBT. D/w bedside RN.
[2022-08-20] VITALS (50 sets, daily range): BP systolic 122–166; BP diastolic 58–88; PULSE 49–78; RESP 16–22; TEMP 37.8–38.5; O2SAT 94–98
[2022-08-20] MEDS: dexmedeTOMIDine in 0.9 % NaCL 400 MCG/100 ML PLAST..BAG 6.43 MCG IV ×2 (00:42→13:23)
[2022-08-20] MEDS: PIPERACILLIN/TAZO 4.5 GM in SODIUM CHLORIDE 0.9% 100 ML IV ×3 (01:55→18:00)
[2022-08-20] MEDS: HEPARIN 5,000 UNIT/ML VIAL 7500 UNIT SUBCUT ×3 (03:42→20:23)
[2022-08-20] MEDS: INSULIN LISPRO 100 UNIT/ML 3ML VIAL SUBCUT ×4 (03:43→20:22)
[2022-08-20 05:04] LABS: INR 1.5 (0.9-1.3); Prothrombin Time 16.9 SECONDS (10.1-12.7)
[2022-08-20 05:08] LABS: Albumin 3.9 g/dL (3.5-5.0); Albumin Globulin Ratio 1.3 (1.0-2.8); Alkaline Phosphatase 54 U/L (38-126); Aspartate Aminotransferase 579 IU/L (14-36); BUN Creatinine Ratio 34.9 (6-22); Bilirubin Total 1.1 mg/dL (0.2-1.3); Blood Urea Nitrogen 68 mg/dL (7-17); Calcium 9.4 mg/dL (8.4-10.2); Carbon Dioxide 33 mmol/L (22-32); Chloride 99 mmol/L (98-107); Estimated Glomerular Filt Rate 29 mL/min (>60); Globulin 3.1 g/dL (1.7-4.1); Glucose 388 mg/dL (80-110); HEMOLYSIS < 15 (0-50); Magnesium 2.2 mg/dL (1.6-2.3); Potassium 3.7 mmol/L (3.4-5.1); Sodium 140 mmol/L (137-145)
[2022-08-20 05:10] LABS: Add Manual Diff / Slide Review NO; Basophils Absolute Auto 0 /uL (0-100); Basophils Percent Auto 0.1 % (0-2); Eosinophils Absolute Auto 0 /uL (0-450); Hematocrit 40.8 % (36-46); Hemoglobin 13.2 g/dL (12.0-16.0); Lymphocytes Absolute Auto 500 /uL (1100-4500); Lymphocytes Percent Auto 4.4 % (25-40); Mean Corpuscular HGB Conc 32.4 % (30-36); Mean Corpuscular Hemoglobin 32.6 PG (26-34); Mean Corpuscular Volume 100.7 fL (80-100); Monocytes Absolute Auto 500 /uL (0-900); Monocytes Percent Auto 4.4 % (3-14); Neutrophils Absolute Auto 9400 /uL (1500-7000); Neutrophils Percent Auto 91.1 % (50-75); Platelet Count 163 X10^3/uL (150-400); Red Blood Cell Count 4.05 X10^6/uL (4.0-5.2); Red Cell Distribution Width 16.3 % (11.6-14.8); White Blood Cell Count 10.4 X10^3/uL (4.5-11.0)
[2022-08-20 05:17] LABS: Alanine Aminotransferase 1381 IU/L (<35)
[2022-08-20 05:29] LABS: Hepatitis B Surf Ab Qualitativ Non Reactive (.)
--- NOTE | 2022-08-20 06:16 | PC.NURSE ---
Pbx Mechanic Note-Patient remains on ventilator, settings 30% FIO2, TV 370, RR 16, PEEP 8, SpO2 >95%, ETCO2 30s, patient is breathing with vent, rarely overriding. Lung sounds clearing overnight, minimal wheezes and minimal cough with scant creamy secretions. Sedated with Prededex at 0.2mcg/kg/hr and Fentanyl at 0.4mcg/hr, rouses to follow commands. Tolerating Tube feeds, 70ml residual. 1750ml UOP.
[2022-08-20] MEDS: ALBUTEROL/IPRATROPIUM 3 ML AMPUL INH ×5 (08:18→23:17)
--- NOTE | 2022-08-20 08:43 | PM.PN.EICU ---
Subjective Subjective IF CAMERA ACTIVATED, patient seen via real-time interactive audiovisual communication: Camera activated Consent obtained for tele-cnc machine setter care: Yes Patient Location: ICU Provider location (State): [place] Other participants/roles: RN, hospitalist Interval history: Patient Summary: 61 year old female with PMH of COPD on 2L O2, PONCE on CPAP, CHFpEF, morbid obesity, DM on insulin, HTN and hypothyroidism who presented 08/15 with several weeks of LE swelling and SOB and required intubation in ER. THere was also probable aspiration as well as strawberry pieces were aspirated from ET tube. 08/17: extubated to BIPAP 08/18: reintubated for worsening mental status and hypercapnea 08/19: continued diuresis Recent 24 hours: Pt. currently on FIO2 of 30% and PEEP of 8. Patient has diuresed out net neg 4L in last 24 hours. Lasix was stopped yesterday morning but urine output continues to be robust. Pt. tried on SBT this morning on low dose Precedex drip and Fentanuyl drip but patient failed SBT because of apnea. Current Medications Current Medications Medications: Home Medications acetaminophen 325 mg tablet (Tylenol) 650 mg PO TID 05/25/22 [History Confirmed 08/15/22] aspirin 81 mg tablet,delayed release 81 mg PO DAILY 05/25/22 [History Confirmed 08/15/22] budesonide-formoterol HFA 160 mcg-4.5 mcg/actuation aerosol inhaler 2 puff inhalation Q4H PRN Wheezing 05/25/22 [History Confirmed 08/15/22] bupropion HCl 150 mg tablet,12 hr sustained-release 150 mg PO BEDTIME 05/25/22 [History Confirmed 08/15/22] carvedilol 3.125 mg tablet 3.125 mg PO BID 05/25/22 [History Confirmed 08/15/22] cyanocobalamin (vitamin B-12) 500 mcg tablet 500 mcg PO DAILY 05/25/22 [History Confirmed 08/15/22] fenofibrate 160 mg tablet 160 mg PO DAILY 05/25/22 [History Confirmed 08/15/22] ferrous sulfate 325 mg (65 mg iron) tablet 325 mg PO DAILY 05/25/22 [History Confirmed 08/15/22] fluoxetine 20 mg tablet 20 mg PO DAILY 05/25/22 [History Confirmed 08/15/22] fluticasone propionate 50 mcg/actuation nasal spray,suspension 2 spray intranasal DAILY 05/25/22 [History Confirmed 08/15/22] gabapentin 300 mg capsule 300 mg PO BEDTIME 05/25/22 [History Confirmed 08/15/22] insulin glargine 100 unit/mL (3 mL) subcutaneous pen 22 unit SUBCUT BID 05/25/22 [History Confirmed 08/16/22] insulin lispro 100 unit/mL subcutaneous solution (Humalog U-100 Insulin) 4 unit SUBCUT TIDWM 05/25/22 [History Confirmed 08/16/22] lidocaine 5 % topical patch 1 patch topical DAILY 05/25/22 [History Confirmed 08/15/22] loratadine 10 mg tablet 10 mg PO DAILY 05/25/22 [History Confirmed 08/15/22] magnesium oxide 200 mg PO BID 05/25/22 [History Confirmed 08/15/22] meclizine 25 mg tablet 25 mg PO Q8HR PRN Dizziness 05/25/22 [History Confirmed 08/15/22] montelukast 10 mg tablet 10 mg PO DAILY 05/25/22 [History Confirmed 08/15/22] nystatin 100,000 unit/gram topical powder 1 applic topical BID PRN Rash 05/25/22 [History Confirmed 08/16/22] ondansetron 4 mg disintegrating tablet 4 mg PO Q8H PRN Nausea 05/25/22 [History Confirmed 08/15/22] rosuvastatin 40 mg tablet 40 mg PO DAILY 05/25/22 [History Confirmed 08/15/22] sennosides 8.6 mg tablet (senna) 17.2 mg PO BEDTIME 05/25/22 [History Confirmed 08/15/22] tiotropium bromide 18 mcg capsule with inhalation device (Spiriva with HandiHaler) 1 cap inhalation DAILY 05/25/22 [History Confirmed 08/15/22] trazodone 50 mg tablet 50 mg PO BEDTIME 05/25/22 [History Confirmed 08/15/22] albuterol sulfate 90 mcg/actuation aerosol inhaler 4 puff inhalation Q4H PRN Shortness Of Breath Or Wheezing 08/15/22 [History Confirmed 08/15/22] levothyroxine 175 mcg tablet 175 mcg PO DAILY 08/15/22 [History Confirmed 08/15/22] potassium chloride 10 mEq tablet,extended release 10 meq PO DAILY 08/15/22 [History Confirmed 08/15/22] torsemide 10 mg tablet 20 mg PO BID 08/15/22 [History Confirmed 08/16/22] Visit Medications (administered) Generic Name Dose Route Start Last Admin Trade Name Freq PRN Reason Stop Dose Admin Acetaminophen 650 mg 08/16/22 14:49 08/17/22 01:19 Acetaminophen Susp 650 Mg/20.3 Ml Udc PO 650 mg Q6HR PRN Administration Fever/Mild Pain (1-3) Acetaminophen 650 mg 08/17/22 14:26 08/17/22 14:58 Acetaminophen 650 Mg Supp SD 650 mg Q6HR PRN Administration Fever/Mild Pain (1-3) Albuterol 2.5 mg 08/15/22 23:46 08/17/22 14:39 Albuterol 2.5 Mg/3 Ml Neb (Adult) INH 2.5 mg [id number] PRN Administration Shortness Of Breath Albuterol/Ipratropium 3 ml 08/15/22 23:46 08/20/22 08:18 Albuterol/Ipratropium 3 Ml Ampul INH 3 ml RTQ4HR JAY JAY Administration Heparin Sodium (Porcine) 7,500 unit 08/16/22 12:00 08/20/22 03:42 Heparin 5,000 Unit/Ml Vial SUBCUT 7,500 unit Q8H JAY JAY Administration Piperacillin Sod/Tazobactam 100 mls @ 25 mls/hr 08/16/22 10:00 08/20/22 06:31 Sod 4.5 gm/ Sodium Chloride IV 08/23/22 09:59 Infused Q8H JAY JAY Infusion dexmedeTOMIDine in 0.9 % NaCL 400 mcg in 100 mls @ 6.43 mls/hr 08/16/22 09:45 08/20/22 00:42 Precedex IV 0.2 mcg/kg/hr TITRATE JAY JAY 6.43 mls/hr Administration Protocol 0.2 MCG/KG/HR NOREPINEPHRINE BITARTRATE/D5W 4 mg in 250 mls @ 30 mls/hr 08/16/22 11:15 08/18/22 21:11 Levophed IV 0 mcg/min TITRATE JAY JAY 0 mls/hr Titration Protocol 8 MCG/MIN Fentanyl 1,000 mcg/ Dextrose 250 mls @ 22.488 mls/hr 08/18/22 15:45 08/20/22 06:32 IV 0.3 mcg/kg/hr TITRATE JAY JAY 9.638 mls/hr Titration Protocol 0.7 MCG/KG/HR Propofol 1,000 mg in 100 mls @ 3.855 mls/hr 08/18/22 15:45 08/19/22 00:45 Propofol IV 0 mcg/kg/min TITRATE JAY JAY 0 mls/hr Titration Protocol 5 MCG/KG/MIN Insulin Glargine 30 unit 08/19/22 21:00 08/19/22 20:22 Insulin Glargine 100 Unit/Ml 3ml Pen SUBCUT 30 unit BID JAY JAY Administration Insulin Human Lispro 0 unit 08/17/22 09:00 08/20/22 03:43 Insulin Lispro 100 Unit/Ml 3ml Vial SUBCUT 7 unit Q6H JAY JAY Administration Protocol Montelukast Sodium 10 mg 08/16/22 09:00 08/19/22 09:17 Montelukast 10 Mg Tablet PO Not Given DAILY JAY JAY Nystatin 1 applic 08/18/22 09:00 08/19/22 20:24 Nystatin Powder 15gm TOP 1 applic BID JAY JAY Administration Pantoprazole Sodium 40 mg 08/17/22 09:00 08/19/22 09:09 Pantoprazole 40 Mg Vial IV 40 mg DAILY JAY JAY Administration Objective Ventilator Parameters: Ventilator Settings FiO2 28 RT Vent Frequency 16 Ventilator Tidal Volume 370 Exhaled Vt/kg IBW 7 Positive End Expiratory 8 Pressure Ventilator Pressure Support 8 Inspiratory Phase Time 0.9 I:E Ratio 1:3.2 Patient Position HOB >= 30 degrees Labs 08/20/22 04:30 08/20/22 04:30 Labs: Laboratory Results - last 24 hr 08/18/22 08/20/22 08/20/22 05:00 04:30 04:30 WBC 10.4 RBC 4.05 Hgb 13.2 Hct 40.8 MCV 100.7 H MCH 32.6 MCHC 32.4 RDW 16.3 H Plt Count 163 Neut % (Auto) 91.1 H Lymph % (Auto) 4.4 L [place] % (Auto) 4.4 Eos % (Auto) 0.0 L Baso % (Auto) 0.1 Neut # (Auto) 9400 H Lymph # (Auto) 500 L [place] # (Auto) 500 Eos # (Auto) 0 Baso # (Auto) 0 PT INR Sodium 140 Potassium 3.7 Chloride 99 Carbon Dioxide 33 H BUN 68 H Creatinine 1.95 H Estimated GFR 29 L BUN/Creatinine Ratio 34.9 H Glucose 388 H Calcium 9.4 Magnesium 2.2 Total Bilirubin 1.1 AST 579 H ALT 1381 H Alkaline Phosphatase 54 Total Protein 7.0 Albumin 3.9 Globulin 3.1 Albumin/Globulin Ratio 1.3 Hep Bs Antibody Non reactive 08/20/22 04:30 WBC RBC Hgb Hct MCV MCH MCHC RDW Plt Count Neut % (Auto) Lymph % (Auto) [place] % (Auto) Eos % (Auto) Baso % (Auto) Neut # (Auto) Lymph # (Auto) [place] # (Auto) Eos # (Auto) Baso # (Auto) PT 16.9 H INR 1.5 H Sodium Potassium Chloride Carbon Dioxide BUN Creatinine Estimated GFR BUN/Creatinine Ratio Glucose Calcium Magnesium Total Bilirubin AST ALT Alkaline Phosphatase Total Protein Albumin Globulin Albumin/Globulin Ratio Hep Bs Antibody Exam Vital Signs (past 8 hours): - 08/20/22 00:52 08/20/22 01:00 08/20/22 01:00 Temperature 100.2 F H 100.0 F H Pulse Rate 55 L 56 L Respiratory Rate 16 16 Blood Pressure 142/81 H Pulse Oximetry 96 97 Oxygen Delivery Method 08/20/22 01:08 08/20/22 02:00 08/20/22 02:00 Temperature 100.0 F H 100.2 F H Pulse Rate 58 L 55 L Respiratory Rate 16 16 Blood Pressure 163/77 H Pulse Oximetry 97 97 Oxygen Delivery Method 08/20/22 02:41 08/20/22 04:00 08/20/22 03:01 Temperature 100.4 F H 100.6 F H Pulse Rate 57 L 57 L Respiratory Rate 16 16 Blood Pressure Pulse Oximetry 97 97 Oxygen Delivery Method Mechanical Ventilation 08/20/22 03:01 08/20/22 04:00 08/20/22 04:00 Temperature 100.8 F H Pulse Rate 61 Respiratory Rate 16 Blood Pressure 161/73 H 151/80 H Pulse Oximetry 96 Oxygen Delivery Method 08/20/22 04:16 08/20/22 05:00 08/20/22 05:00 Temperature 100.8 F H 100.8 F H Pulse Rate 55 L 52 L Respiratory Rate 16 16 Blood Pressure 159/81 H Pulse Oximetry 96 96 Oxygen Delivery Method 08/20/22 06:01 08/20/22 06:01 08/20/22 06:27 Temperature 100.9 F H 100.8 F H Pulse Rate 52 L 77 Respiratory Rate 16 16 Blood Pressure 151/68 H Pulse Oximetry 95 95 Oxygen Delivery Method 08/20/22 07:00 08/20/22 07:01 08/20/22 07:01 Temperature 100.8 F H 100.8 F H Pulse Rate 52 L 53 L Respiratory Rate 16 16 Blood Pressure 122/64 Pulse Oximetry 96 95 Oxygen Delivery Method 08/20/22 08:00 08/20/22 08:00 Temperature 100.6 F H Pulse Rate 51 L Respiratory Rate 16 Blood Pressure 143/70 H Pulse Oximetry 97 Oxygen Delivery Method Fraction of Inspired Oxygen 30 SaO2/FiO2 Ratio 323 Oxygen Delivery Method Mechanical Ventilation Oxygen Flow Rate 2 Narrative Exam Narrative: Patient seen over two paBilims visual system. She appears with eyes closed and calm on vent Quality TeleICU VTE Deep Vein Thrombosis/Pulmonary Embolism Present on Admission: No Assessment & Plan Assessment & Plan narrative: Assessment Acute on chronic respiratory failure (hypercapnia > hypoxia) CHF exacerbation COPD exacerbation Aspiration PNA acute on chronic renal failure Plan NUTRITION CLUB AMBASSADOR: -wean fentanyl drip off and then precedex drip as tolerated CV: SBP 120-160's. Pt. is usually on Coreg at homebut HR currently in low 50s so will start Hydralazine 10 mg TID NGT for BP control and afterload reduction Pulm: attempt SBT again when sedation weaned down further -continue bronchodilators -wean steroids to off in next few days as tolerated if no signs of bronchoscospasms ID: continue empirical Zosyn for now -f/u on cultures -if cultures are negative consider stopping antibiotics after 7 days treatment Heme: daily CBC GI: tube feeds as tolerated FEN/Renal: hold off on further lasix for now as patient is 15 L net neg since admission and continues to have robust urine output off lasix -replace K as needed Endo: monitor BG q6h and titrate insulin as needed for euglycemia -check TSh and restart Levothyroxine as long as no evidence of hyperthyroidism PPx: Protonix and heparin FULL CODE CCT spent 50
[2022-08-20] MEDS: INSULIN GLARGINE 100 UNIT/ML 3ML PEN 30 UNIT SUBCUT (08:52)
[2022-08-20] MEDS: NYSTATIN POWDER 15GM 1 APPLIC TOP ×2 (09:05→20:24)
[2022-08-20] MEDS: PANTOPRAZOLE 40 MG VIAL IV (09:05)
[2022-08-20] MEDS: INSULIN GLARGINE 100 UNIT/ML 3ML PEN 10 UNIT SUBCUT (10:17)
[2022-08-20] MEDS: POTASSIUM CHLORIDE 20 MEQ/15 ML UDC PO (10:17)
[2022-08-20] MEDS: INSULIN LISPRO 100 UNIT/ML 3ML VIAL 10 UNIT SUBCUT (10:17)
[2022-08-20] MEDS: HYDRALAZINE 10 MG TABLET PO ×3 (10:17→21:19)
[2022-08-20] MEDS: fentaNYL 1,000 MCG in DEXTROSE 5% IN WATER 230 ML 9.638 MCG IV (11:28)
--- NOTE | 2022-08-20 11:30 | PC.NURSE ---
Encountered eMAR error when documenting Fentanyl drip. Medication continued infusing from 0904 to 1128 @ 9.638 mL/hr.
[2022-08-20 12:30] LABS: TSH w/ Reflex to FT4 1.43 uIU/mL (0.47-4.68)
[2022-08-20] MEDS: INSULIN LISPRO 100 UNIT/ML 3ML VIAL 15 UNIT SUBCUT (15:19)
--- NOTE | 2022-08-20 16:04 | P.PN_ITS ---
Subjective Subjective Interval history: 61-year-old female with hypertension, class 3 obesity, COPD, chronic hypoxic respiratory failure on 2 liters/minute at baseline, hyperlipidemia, obstructive sleep apnea, combined systolic and diastolic congestive heart failure, and thyroiditis with prior admission in May of this year for acute respiratory failure, BLANCA, septic shock, rhabdomyolysis, and acute respiratory failure requiring intubation/mechanical ventilation. Hospital course was complicated by [place] which was felt to be triggered by albuterol nebulizer treatments. Patient ultimately discharged on June 01 and did fairly well until mid July when she presented complaining of increased shortness of breath. Her torsemide was increased for a period of 5 days. She returned on August 15 w ith worsening complaints of shortness of breath and edema. She was found to be in respiratory failure and was intubated and. She was extubated on August 17, but continued to decline and was reintubated on August 18. Patient underwent a spontaneous breathing trial this morning, but per [employer], she did not attempt to breathe above the vent settings. Sedation was resumed. At the time of my evaluation, patient is presently receiving fentanyl 0.3 mcg/kg/hr and Precedex 0.2mcg/kg/hr for sedation. She does awaken easily. She denies any pain but does admit to feeling short of breath. She is receiving tube feeds with Glucerna at 40 mL/hour. She is had increasing blood sugar difficulties as she is receiving IV Solu-Medrol 40 mg daily which was initiated today and will stop on August 25. She was also receiving IV furosemide, initially 80 mg q.12 on admission, then decrease to 40 mg q.12 on August 16. She was given additional 40 mg IV on August 18. She received a 1 time dose of 40 mg IV yesterday. She is a net negative of 6.5 L in the prior 24 hours. MRSA screen was negative. She continues to have low-grade fevers at 100.2?. Exam Vital Signs (past 8 hours): - 08/20/22 09:00 08/20/22 09:00 08/20/22 10:00 Temperature 100.8 F H Pulse Rate 53 L Respiratory Rate 16 Blood Pressure 147/81 H 140/88 Pulse Oximetry 95 Oxygen Delivery Method 08/20/22 10:00 08/20/22 10:57 08/20/22 11:00 Temperature 100.6 F H Pulse Rate 54 L 52 L Respiratory Rate 16 Blood Pressure 130/58 L 141/59 H Pulse Oximetry 95 Oxygen Delivery Method 08/20/22 11:00 08/20/22 12:00 08/20/22 12:01 Temperature 100.4 F H 100.2 F H 100.2 F H Pulse Rate 53 L 56 L 55 L Respiratory Rate 16 16 16 Blood Pressure Pulse Oximetry 94 95 96 Oxygen Delivery Method 08/20/22 12:01 08/20/22 13:00 08/20/22 13:00 Temperature 100.2 F H Pulse Rate 55 L Respiratory Rate 16 Blood Pressure 130/66 125/66 Pulse Oximetry 94 Oxygen Delivery Method 08/20/22 12:00 08/20/22 14:00 08/20/22 14:00 Temperature 100.2 F H Pulse Rate 66 Respiratory Rate 21 Blood Pressure 138/76 Pulse Oximetry 97 Oxygen Delivery Method Mechanical Ventilation 08/20/22 15:00 08/20/22 15:00 08/20/22 15:23 Temperature 100.2 F H Pulse Rate 60 60 Respiratory Rate 18 Blood Pressure 146/69 H 146/69 H Pulse Oximetry 96 Oxygen Delivery Method 08/20/22 16:00 08/20/22 16:00 Temperature 100.2 F H Pulse Rate 58 L Respiratory Rate 17 Blood Pressure 150/70 H Pulse Oximetry 96 Oxygen Delivery Method Fraction of Inspired Oxygen 30 SaO2/FiO2 Ratio 323 Oxygen Delivery Method Mechanical Ventilation Oxygen Flow Rate 2 Narrative Exam Narrative: GEN: Intubated and mechanically ventilated female, drowsy but arouses easily, answering questions, no acute distress HEENT:NC, Face symmetric, ET tube in position CHEST: Respiratory excursions symmetric, diminished breath sounds bilaterally in the anterior lung paz CV: RRR, no M/R/G ABD: Soft, obese, NT/ND, BT present in all 4 quadrants, body habitus limits exam EXTR: warm, well perfused, no C/C/face bilateral lower extremity edema SKIN: warm and dry, no rash NEURO: Drowsy but responds appropriately, nonfocal Objective Labs 08/20/22 04:30 08/20/22 04:30 Labs: Laboratory Results - last 24 hr 08/18/22 08/20/22 08/20/22 05:00 04:30 04:30 WBC 10.4 RBC 4.05 Hgb 13.2 Hct 40.8 MCV 100.7 H MCH 32.6 MCHC 32.4 RDW 16.3 H Plt Count 163 Neut % (Auto) 91.1 H Lymph % (Auto) 4.4 L [place] % (Auto) 4.4 Eos % (Auto) 0.0 L Baso % (Auto) 0.1 Neut # (Auto) 9400 H Lymph # (Auto) 500 L [place] # (Auto) 500 Eos # (Auto) 0 Baso # (Auto) 0 PT INR Sodium 140 Potassium 3.7 Chloride 99 Carbon Dioxide 33 H BUN 68 H Creatinine 1.95 H Estimated GFR 29 L BUN/Creatinine Ratio 34.9 H Glucose 388 H Calcium 9.4 Magnesium 2.2 Total Bilirubin 1.1 AST 579 H ALT 1381 H Alkaline Phosphatase 54 Total Protein 7.0 Albumin 3.9 Globulin 3.1 Albumin/Globulin Ratio 1.3 TSH Hep Bs Antibody Non reactive 08/20/22 08/20/22 04:30 04:30 WBC RBC Hgb Hct MCV MCH MCHC RDW Plt Count Neut % (Auto) Lymph % (Auto) [place] % (Auto) Eos % (Auto) Baso % (Auto) Neut # (Auto) Lymph # (Auto) [place] # (Auto) Eos # (Auto) Baso # (Auto) PT 16.9 H INR 1.5 H Sodium Potassium Chloride Carbon Dioxide BUN Creatinine Estimated GFR BUN/Creatinine Ratio Glucose Calcium Magnesium Total Bilirubin AST ALT Alkaline Phosphatase Total Protein Albumin Globulin Albumin/Globulin Ratio TSH 1.43 Hep Bs Antibody [facility] Medical History Chronic hypoxemic respiratory failure COPD (chronic obstructive pulmonary disease) DM2 (diabetes mellitus, type 2) HTN (hypertension) Obesity PONCE (obstructive sleep apnea) Systolic and diastolic CHF, chronic Thyroiditis Surgical History S/P hernia surgery Family History Mother No pertinent past medical history Father No pertinent past medical history Social History household members: other Smoking Status: Former smoker Assessment & Plan Assessment & Plan narrative: 1. Acute on chronic hypoxic respiratory failure Patient was intubated on admission. She was briefly extubated but became progressively more lethargic and required re-intubation. She remains intubated/mechanically ventilated. At baseline she is on 2 liters/minute via nasal cannula. Failed spontaneous breathing trial this morning. Etiology is felt to be secondary to congestive heart failure and aspiration pneumonia. She remains on broad-spectrum antibiotics. Appreciate management per density control puncher. 2. Septic shock Resolved. She is off pressors. She remains intubated/mechanically ventilated as noted. She does continue to have mild low-grade fevers. 3. Acute on chronic combined systolic and diastolic congestive heart failure with ejection fraction of 30-35% Limited echocardiogram done this admission revealed an EF of 30-35% consistent with prior study. 4. Probable aspiration pneumonia Remains on Zosyn. Of note, she did have an aspiration event in May of this year when she was hospitalized. Speech therapy assessment was done earlier this hospitalization with NPO recommended. Once she has been extubated and is more awake/alert, it would be prudent to repeat a swallow evaluation, as evidently when she was intubated they did identify strawberries in her ET tube consistent with aspiration 5. BLANCA Creatinine stable at 1.95. Holding diuresis today given her large volume diuresis yesterday 6. Acute cystitis, aerococcus Well covered with present antibiotics 7. Leg wound Apparently cultures were taken but it was felt this was skin contamination. Continue local wound care. 8. Diabetes mellitus type 2, insulin requiring, uncontrolled with hyperglycemia Blood sugars have been above 400 today. I gave additional Lantus 10 units and lispro 10 units this morning. There was some improvement but this afternoon blood sugars are back above 400. Additional 15 units of lispro was ordered. I have advanced sliding scale to the highest level. Will also increase Lantus to 40 units twice daily. 9. Class 3 obesity BMI is 50.2, raising her risk for significant morbidity/mortality. 10. Obstructive sleep apnea Unclear if patient is on CPAP/BiPAP at baseline. 11. Hypertension Antihypertensives were held secondary to septic shock and neutropenic fevers initially. She is off pressors, blood pressures are mildly hypertensive. May be able to resume antihypertensive therapy tomorrow. 12. Hypothyroidism Will restart levothyroxine through feeding tube 13. COPD with presumed exacerbation She remains on Solu-Medrol 40 mg daily for 5 days. 14. Transaminitis, possibly secondary to shock liver LFTs continue to improve, with AST now down to 579 from 1993. ALT is down to 1381 from 192. Continue monitoring. Additionally, concern for potential drug- induced liver injury and azithromycin was discontinued as well. 15. Bradycardia with prolonged QT Remains mildly bradycardic. Code status Full Prophylaxis On heparin 7500 units q.8 hours Disposition Intensive care unit Surrogate decision maker: Roxy ramos dtr Quality VTE Deep Vein Thrombosis/Pulmonary Embolism Present on Admission: No
[2022-08-20] MEDS: INSULIN GLARGINE 100 UNIT/ML 3ML PEN 40 UNIT SUBCUT (20:22)
--- NOTE | 2022-08-20 21:27 | PM.PN.1 ---
Subjective Subjective Interval history: 61-year-old female with hypertension, class 3 obesity, COPD, chronic hypoxic respiratory failure on 2 liters/minute at baseline, hyperlipidemia, obstructive sleep apnea, combined systolic and diastolic congestive heart failure, and thyroiditis with prior admission in May of this year for acute respiratory failure, BLANCA, septic shock, rhabdomyolysis, and acute respiratory failure requiring intubation/mechanical ventilation.? Hospital course was complicated by [place] which was felt to be triggered by albuterol nebulizer treatments.? Patient ultimately discharged on June 01 and did fairly well until mid July when she presented complaining of increased shortness of breath.? Her torsemide was increased for a period of 5 days.? She returned on August 15 with worsening complaints of shortness of breath and edema.? She was found to be in respiratory failure and was intubated and.? She was extubated on August 17, but continued to decline and was reintubated on August 18. Patient underwent a spontaneous breathing trial this morning, and did well. I am told she will be extubated today. Presently she is on Precedex 0 5 mcg/kg/HR. She is off of the fentanyl infusion.She is receiving tube feeds with Glucerna at 40 mL/hour.? She is had increasing blood sugar difficulties as she is receiving IV Solu-Medrol 40 mg daily which was initiated yesterday and will stop on August 25.? She was also receiving IV furosemide, initially 80 mg q.12 on admission, then decrease to 40 mg q.12 on August 16.? She was given additional 40 mg IV on August 18.? She received a 1 time dose of 40 mg IV on August 19.? She is a net negative of 2.7 L in the prior 24 hours.? MRSA screen was negative.? She continues to have fevers with a temperature this morning of 101.5. She is on Zosyn monotherapy. Lantus was increased from 30 units b.i.d. to 40 units b.i.d. yesterday. She received multiple doses of lispro as well. She was transitioned from the moderate sliding scale to the high dose sliding scale. Overnight, blood sugars have remained in the 300s. Exam Vital Signs (past 8 hours): - 08/20/22 14:00 08/20/22 14:00 08/20/22 15:00 Temperature 100.2 F H Pulse Rate 66 Respiratory Rate 21 Blood Pressure 138/76 146/69 H Pulse Oximetry 97 Oxygen Delivery Method 08/20/22 15:00 08/20/22 15:23 08/20/22 16:00 Temperature 100.2 F H Pulse Rate 60 60 Respiratory Rate 18 Blood Pressure 146/69 H 150/70 H Pulse Oximetry 96 Oxygen Delivery Method 08/20/22 16:00 08/20/22 16:00 08/20/22 17:00 Temperature 100.2 F H Pulse Rate 58 L Respiratory Rate 17 Blood Pressure 146/83 H Pulse Oximetry 96 Oxygen Delivery Method Mechanical Ventilation 08/20/22 17:00 08/20/22 18:00 08/20/22 18:01 Temperature 100.2 F H 100.4 F H 100.2 F H Pulse Rate 56 L 56 L 61 Respiratory Rate 16 22 20 Blood Pressure Pulse Oximetry 96 96 97 Oxygen Delivery Method 08/20/22 18:01 08/20/22 19:00 08/20/22 19:00 Temperature 100.4 F H Pulse Rate 58 L Respiratory Rate 18 Blood Pressure 147/67 H 166/81 H Pulse Oximetry 97 Oxygen Delivery Method 08/20/22 19:33 08/20/22 20:00 08/20/22 20:00 Temperature 100.6 F H Pulse Rate 58 L Respiratory Rate 16 Blood Pressure 151/72 H Pulse Oximetry 95 Oxygen Delivery Method Mechanical Ventilation 08/20/22 20:00 08/20/22 20:02 08/20/22 21:19 Temperature 100.6 F H 100.6 F H Pulse Rate 58 L 59 L 58 L Respiratory Rate 16 17 Blood Pressure 156/69 H Pulse Oximetry 96 96 Oxygen Delivery Method Fraction of Inspired Oxygen 30 SaO2/FiO2 Ratio 323 Oxygen Delivery Method Mechanical Ventilation Oxygen Flow Rate 2 Narrative Exam Narrative: GEN:? Intubated and mechanically ventilated female, somnolent, not following commands,no acute distress HEENT:NC, Face symmetric, ET tube in position CHEST: Respiratory excursions symmetric, diminished breath sounds bilaterally in the anterior lung paz CV: RRR, no M/R/G ABD: Soft, obese, NT/ND, BT present in all 4 quadrants, body habitus limits exam EXTR: warm, well perfused, no C/C/E SKIN: warm and dry, no rash NEURO:? Somnolent, nonfocal Objective Labs 08/21/22 04:13 08/21/22 04:13 Labs: Laboratory Results - last 24 hr 08/18/22 08/20/22 08/20/22 05:00 04:30 04:30 WBC 10.4 RBC 4.05 Hgb 13.2 Hct 40.8 MCV 100.7 H MCH 32.6 MCHC 32.4 RDW 16.3 H Plt Count 163 Neut % (Auto) 91.1 H Lymph % (Auto) 4.4 L Graham % (Auto) 4.4 Eos % (Auto) 0.0 L Baso % (Auto) 0.1 Neut # (Auto) 9400 H Lymph # (Auto) 500 L Graham # (Auto) 500 Eos # (Auto) 0 Baso # (Auto) 0 PT INR Sodium 140 Potassium 3.7 Chloride 99 Carbon Dioxide 33 H BUN 68 H Creatinine 1.95 H Estimated GFR 29 L BUN/Creatinine Ratio 34.9 H Glucose 388 H Calcium 9.4 Magnesium 2.2 Total Bilirubin 1.1 AST 579 H ALT 1381 H Alkaline Phosphatase 54 Total Protein 7.0 Albumin 3.9 Globulin 3.1 Albumin/Globulin Ratio 1.3 TSH Hep Bs Antibody Non reactive 08/20/22 08/20/22 04:30 04:30 WBC RBC Hgb Hct MCV MCH MCHC RDW Plt Count Neut % (Auto) Lymph % (Auto) Graham % (Auto) Eos % (Auto) Baso % (Auto) Neut # (Auto) Lymph # (Auto) Graham # (Auto) Eos # (Auto) Baso # (Auto) PT 16.9 H INR 1.5 H Sodium Potassium Chloride Carbon Dioxide BUN Creatinine Estimated GFR BUN/Creatinine Ratio Glucose Calcium Magnesium Total Bilirubin AST ALT Alkaline Phosphatase Total Protein Albumin Globulin Albumin/Globulin Ratio TSH 1.43 Hep Bs Antibody [facility] Medical History Chronic hypoxemic respiratory failure COPD (chronic obstructive pulmonary disease) DM2 (diabetes mellitus, type 2) HTN (hypertension) Obesity PONCE (obstructive sleep apnea) Systolic and diastolic CHF, chronic Thyroiditis Surgical History S/P hernia surgery Family History Mother No pertinent past medical history Father No pertinent past medical history Social History household members: other Smoking Status: Former smoker Assessment & Plan Assessment & Plan narrative: 1. Acute on chronic hypoxic respiratory failure Patient was intubated on admission.? She was briefly extubated but became progressively more lethargic and required re-intubation.? She remains intubated/mechanically ventilated.? At baseline she is on 2 liters/minute via nasal cannula.? Etiology is felt to be secondary to congestive heart failure and aspiration pneumonia.? She remains on Zosyn monotherapy.? Appreciate management per tray delivery aide. Discussed with respiratory therapy. Plan is to discontinue sedation and potentially extubate later this morning. 2. Septic shock Resolved.? She is off pressors.? She remains intubated/mechanically ventilated as noted.? As noted, she is continuing to have low-grade fevers. Will obtain a portable chest x-ray. Sputum is also positive for yeast. Will defer decision to initiate antifungal therapy to the tray delivery aide. 3. Acute on chronic combined systolic and diastolic congestive heart failure with ejection fraction of 30-35% Limited echocardiogram done this admission revealed an EF of 30-35% consistent with prior study. 4. Probable aspiration pneumonia Remains on Zosyn.? Of note, she did have an aspiration event in May of this year when she was hospitalized.? Speech therapy assessment was done earlier this hospitalization with NPO recommended.? Once she has been extubated and is more awake/alert, it would be prudent to repeat a swallow evaluation, as evidently when she was intubated they did identify strawberries in her ET tube consistent with aspiration 5. BLANCA Creatinine stable and somewhat improved from 1.95-1.74..? She is not had any additional furosemide yesterday or today. 6. Acute cystitis, aerococcus Well covered with present antibiotics. Follow-up urine cultures were negative 7. Leg wound Apparently cultures were taken but it was felt this was skin contamination.? Continue local wound care. 8. Diabetes mellitus type 2, insulin requiring, uncontrolled with hyperglycemia Blood sugars have remained in the 300s.? Difficult glycemic control in the setting of steroids. Will increase Lantus to 50 units b.i.d.. 9. Class 3 obesity BMI is 50.2, raising her risk for significant morbidity/mortality. 10. Obstructive sleep apnea Unclear if patient is on CPAP/BiPAP at baseline. 11. Hypertension Antihypertensives were held secondary to septic shock and neutropenic fevers initially.? She is off pressors, blood pressures are mildly hypertensive.? As she may be extubated today, will defer any per tube antihypertensives. Will add as needed hydralazine. I suspect she will remain NPO until her swallow can be cleared. 12. Hypothyroidism Levothyroxine ordered per tube 13. COPD with presumed exacerbation She remains on Solu-Medrol 40 mg daily for 5 days. Today is day 2 14. Transaminitis, possibly secondary to shock liver LFTs continue to improve, with AST now down to 181 from 1993.? ALT is down to 952 from 1925.? Continue monitoring.? Additionally, concern for potential drug-induced liver injury and azithromycin was discontinued as well. 15. Bradycardia with prolonged QT Heart rates have overall been improved in the low 60s Code status Full Prophylaxis On heparin 7500 units q.8 hours Disposition Intensive care unit Surrogate decision maker: Roxy ramos dtr Quality VTE Deep Vein Thrombosis/Pulmonary Embolism Present on Admission: No
[2022-08-20] MEDS: dexmedeTOMIDine in 0.9 % NaCL 400 MCG/100 ML PLAST..BAG 16.074 MCG IV (21:46)
[2022-08-20] MEDS: ACETAMINOPHEN SUSP 650 MG/20.3 ML UDC PO (22:29)
[2022-08-21] VITALS (54 sets, daily range): BP systolic 95–159; BP diastolic 52–97; PULSE 54–83; RESP 16–31; TEMP 36.9–38.6; O2SAT 90–98
[2022-08-21] MEDS: PIPERACILLIN/TAZO 4.5 GM in SODIUM CHLORIDE 0.9% 100 ML IV ×3 (01:19→17:36)
[2022-08-21] MEDS: ALBUTEROL/IPRATROPIUM 3 ML AMPUL INH ×5 (03:01→18:36)
[2022-08-21] MEDS: INSULIN LISPRO 100 UNIT/ML 3ML VIAL SUBCUT ×4 (03:08→21:18)
[2022-08-21] MEDS: HEPARIN 5,000 UNIT/ML VIAL 7500 UNIT SUBCUT ×3 (03:09→21:20)
[2022-08-21] MEDS: dexmedeTOMIDine in 0.9 % NaCL 400 MCG/100 ML PLAST..BAG 16.074 MCG IV (03:20)
[2022-08-21 04:27] LABS: Hematocrit 42.8 % (36-46); Hemoglobin 13.8 g/dL (12.0-16.0); Mean Corpuscular HGB Conc 32.3 % (30-36); Mean Corpuscular Hemoglobin 32.2 PG (26-34); Mean Corpuscular Volume 99.8 fL (80-100); Platelet Count 152 X10^3/uL (150-400); Red Blood Cell Count 4.29 X10^6/uL (4.0-5.2); Red Cell Distribution Width 16.1 % (11.6-14.8); White Blood Cell Count 11.7 X10^3/uL (4.5-11.0)
[2022-08-21 04:28] LABS: Add Manual Diff / Slide Review YES; INR 1.3 (0.9-1.3)
[2022-08-21 04:35] LABS: Albumin 3.6 g/dL (3.5-5.0); Albumin Globulin Ratio 1.2 (1.0-2.8); Alkaline Phosphatase 74 U/L (38-126); Aspartate Aminotransferase 181 IU/L (14-36); BUN Creatinine Ratio 35.1 (6-22); Bilirubin Total 0.9 mg/dL (0.2-1.3); Blood Urea Nitrogen 61 mg/dL (7-17); Calcium 9.6 mg/dL (8.4-10.2); Carbon Dioxide 31 mmol/L (22-32); Chloride 104 mmol/L (98-107); Estimated Glomerular Filt Rate 33 mL/min (>60); Globulin 3.1 g/dL (1.7-4.1); Glucose 313 mg/dL (80-110); HEMOLYSIS < 15 (0-50); Magnesium 2.3 mg/dL (1.6-2.3); Potassium 4.4 mmol/L (3.4-5.1); Sodium 141 mmol/L (137-145); Total Protein 6.7 g/dL (6.3-8.2)
[2022-08-21 04:42] LABS: Alanine Aminotransferase 952 IU/L (<35)
[2022-08-21] MEDS: HYDRALAZINE 10 MG TABLET PO (05:27)
[2022-08-21] MEDS: LEVOTHYROXINE 100 MCG TABLET TUBE (05:27)
[2022-08-21] MEDS: LEVOTHYROXINE 75 MCG TABLET TUBE (05:27)
[2022-08-21] MEDS: ACETAMINOPHEN SUSP 650 MG/20.3 ML UDC PO ×2 (05:42→13:22)
[2022-08-21 06:53] LABS: Neutrophils Absolute Manual 10413 /uL (3000-5900); Total Cells Counted 100
[2022-08-21 06:55] LABS: Polychromasia 1+
[2022-08-21 07:52] LABS: Fractionated Inspired Oxygen 30; HCO3 ABG 28 mmol/L (23-27); Oxygen Saturation ABG 97 % (95-100); PCO2 ABG 40.3 mmHg (35-45); PO2 ABG 91 mmHg (80-100); TCO2 ABG 30 mmol/L (23-27); pH ABG 7.46 (7.35-7.45)
[2022-08-21] MEDS: INSULIN GLARGINE 100 UNIT/ML 3ML PEN 50 UNIT SUBCUT ×2 (08:20→21:18)
[2022-08-21] MEDS: PANTOPRAZOLE 40 MG VIAL IV (08:41)
[2022-08-21] MEDS: NYSTATIN POWDER 15GM 1 APPLIC TOP (08:41)
--- NOTE | 2022-08-21 08:47 | P.TELICUPN_ITS ---
Subjective Subjective IF CAMERA ACTIVATED, patient seen via real-time interactive audiovisual communication: Camera activated Consent obtained for tele-wheel borer care: Yes Patient Location: ICU Provider location (State): [place] Other participants/roles: RN Interval history: Patient Summary: Patient Summary: 61 year? old female with PMH of COPD on 2L O2, PONCE on CPAP, CHFpEF, morbid obesity, DM on insulin, HTN and hypothyroidism who presented 08/15 with several weeks of LE swelling and SOB and required intubation in ER.? THere was also probable aspiration as well as strawberry pieces were aspirated from ET tube. 08/17: extubated to BIPAP 08/18: reintubated for worsening mental status and hypercapnea 08/19: continued diuresis 08/20: failed SBT because of apnea, sedation weaned down. Continues to have low grade fever which is thought to be secondary to precedex. Recent 24 hour events: Patient's fever curve going a little more up, Tmax 101.5. BG and BP still high. Patient has been off sedation since 7 am this morning and is now undergoing SBT. Current Medications Current Medications Medications: Home Medications acetaminophen 325 mg tablet (Tylenol) 650 mg PO TID 05/25/22 [History Confirmed 08/15/22] aspirin 81 mg tablet,delayed release 81 mg PO DAILY 05/25/22 [History Confirmed 08/15/22] budesonide-formoterol HFA 160 mcg-4.5 mcg/actuation aerosol inhaler 2 puff in halation Q4H PRN Wheezing 05/25/22 [History Confirmed 08/15/22] bupropion HCl 150 mg tablet,12 hr sustained-release 150 mg PO BEDTIME 05/25/22 [History Confirmed 08/15/22] carvedilol 3.125 mg tablet 3.125 mg PO BID 05/25/22 [History Confirmed 08/15/22] cyanocobalamin (vitamin B-12) 500 mcg tablet 500 mcg PO DAILY 05/25/22 [History Confirmed 08/15/22] fenofibrate 160 mg tablet 160 mg PO DAILY 05/25/22 [History Confirmed 08/15/22] ferrous sulfate 325 mg (65 mg iron) tablet 325 mg PO DAILY 05/25/22 [History Confirmed 08/15/22] fluoxetine 20 mg tablet 20 mg PO DAILY 05/25/22 [History Confirmed 08/15/22] fluticasone propionate 50 mcg/actuation nasal spray,suspension 2 spray intranasal DAILY 05/25/22 [History Confirmed 08/15/22] gabapentin 300 mg capsule 300 mg PO BEDTIME 05/25/22 [History Confirmed 08/15/22] insulin glargine 100 unit/mL (3 mL) subcutaneous pen 22 unit SUBCUT BID 05/25/22 [History Confirmed 08/16/22] insulin lispro 100 unit/mL subcutaneous solution (Humalog U-100 Insulin) 4 unit SUBCUT TIDWM 05/25/22 [History Confirmed 08/16/22] lidocaine 5 % topical patch 1 patch topical DAILY 05/25/22 [History Confirmed 08/15/22] loratadine 10 mg tablet 10 mg PO DAILY 05/25/22 [History Confirmed 08/15/22] magnesium oxide 200 mg PO BID 05/25/22 [History Confirmed 08/15/22] meclizine 25 mg tablet 25 mg PO Q8HR PRN Dizziness 05/25/22 [History Confirmed 08/15/22] montelukast 10 mg tablet 10 mg PO DAILY 05/25/22 [History Confirmed 08/15/22] nystatin 100,000 unit/gram topical powder 1 applic topical BID PRN Rash 05/25/22 [History Confirmed 08/16/22] ondansetron 4 mg disintegrating tablet 4 mg PO Q8H PRN Nausea 05/25/22 [History Confirmed 08/15/22] rosuvastatin 40 mg tablet 40 mg PO DAILY 05/25/22 [History Confirmed 08/15/22] sennosides 8.6 mg tablet (senna) 17.2 mg PO BEDTIME 05/25/22 [History Confirmed 08/15/22] tiotropium bromide 18 mcg capsule with inhalation device (Spiriva with HandiHaler) 1 cap inhalation DAILY 05/25/22 [History Confirmed 08/15/22] trazodone 50 mg tablet 50 mg PO BEDTIME 05/25/22 [History Confirmed 08/15/22] albuterol sulfate 90 mcg/actuation aerosol inhaler 4 puff inhalation Q4H PRN Shortness Of Breath Or Wheezing 08/15/22 [History Confirmed 08/15/22] levothyroxine 175 mcg tablet 175 mcg PO DAILY 08/15/22 [History Confirmed 08/15/22] potassium chloride 10 mEq tablet,extended release 10 meq PO DAILY 08/15/22 [History Confirmed 08/15/22] torsemide 10 mg tablet 20 mg PO BID 08/15/22 [History Confirmed 08/16/22] Visit Medications (administered) Generic Name Dose Route Start Last Admin Trade Name Freq PRN Reason Stop Dose Admin Acetaminophen 650 mg 08/16/22 14:49 08/21/22 05:42 Acetaminophen Susp 650 Mg/20.3 Ml Udc PO 650 mg Q6HR PRN Administration Fever/Mild Pain (1-3) Acetaminophen 650 mg 08/17/22 14:26 08/17/22 14:58 Acetaminophen 650 Mg Supp DC 650 mg Q6HR PRN Administration Fever/Mild Pain (1-3) Albuterol 2.5 mg 08/15/22 23:46 08/17/22 14:39 Albuterol 2.5 Mg/3 Ml Neb (Adult) INH 2.5 mg [id number] PRN Administration Shortness Of Breath Albuterol/Ipratropium 3 ml 08/15/22 23:46 08/21/22 08:18 Albuterol/Ipratropium 3 Ml Ampul INH 3 ml RTQ4HR JAY JAY Administration Heparin Sodium (Porcine) 7,500 unit 08/16/22 12:00 08/21/22 03:09 Heparin 5,000 Unit/Ml Vial SUBCUT 7,500 unit Q8H JAY JAY Administration Hydralazine HCl 10 mg 08/20/22 10:00 08/21/22 05:27 Hydralazine 10 Mg Tablet PO 10 mg Q8HR JAY JAY Administration Piperacillin Sod/Tazobactam 100 mls @ 25 mls/hr 08/16/22 10:00 08/21/22 05:43 Sod 4.5 gm/ Sodium Chloride IV 08/23/22 09:59 Infused Q8H JAY JAY Infusion dexmedeTOMIDine in 0.9 % NaCL 400 mcg in 100 mls @ 6.43 mls/hr 08/16/22 09:45 08/21/22 03:20 Precedex IV 0.5 mcg/kg/hr TITRATE JAY JAY 16.074 mls/hr Administration Protocol 0.2 MCG/KG/HR Fentanyl 1,000 mcg/ Dextrose 250 mls @ 22.488 mls/hr 08/18/22 15:45 08/20/22 15:19 IV 0 mcg/kg/hr TITRATE JAY JAY 0 mls/hr Titration Protocol 0.7 MCG/KG/HR Propofol 1,000 mg in 100 mls @ 3.855 mls/hr 08/18/22 15:45 08/19/22 00:45 Propofol IV 0 mcg/kg/min TITRATE JAY JAY 0 mls/hr Titration Protocol 5 MCG/KG/MIN Insulin Glargine 50 unit 08/21/22 09:00 08/21/22 08:20 Insulin Glargine 100 Unit/Ml 3ml Pen SUBCUT 50 unit BID JAY JAY Administration Insulin Human Lispro 0 unit 08/17/22 09:00 08/21/22 08:20 Insulin Lispro 100 Unit/Ml 3ml Vial SUBCUT 12 unit Q6H JAY JAY Administration Protocol Levothyroxine Sodium 100 mcg 08/21/22 06:00 08/21/22 05:27 Levothyroxine 100 Mcg Tablet TUBE 100 mcg 0600 JAY JAY Administration Levothyroxine Sodium 75 mcg 08/21/22 06:00 08/21/22 05:27 Levothyroxine 75 Mcg Tablet TUBE 75 mcg 0600 JAY JAY Administration Methylprednisolone 40 mg 08/20/22 11:00 08/20/22 10:27 Methylprednisolone 40 Mg/Ml Vial IV 08/25/22 10:59 40 mg 1100 JAY JAY Administration Montelukast Sodium 10 mg 08/16/22 09:00 08/20/22 09:05 Montelukast 10 Mg Tablet PO Not Given DAILY JAY JAY Nystatin 1 applic 08/18/22 09:00 08/21/22 08:41 Nystatin Powder 15gm TOP 1 applic BID JAY JAY Administration Pantoprazole Sodium 40 mg 08/17/22 09:00 08/21/22 08:41 Pantoprazole 40 Mg Vial IV 40 mg DAILY JAY JAY Administration Objective Ventilator Parameters: Ventilator Settings FiO2 30 RT Vent Frequency 16 Ventilator Tidal Volume 370 Exhaled Vt/kg IBW 7 Positive End Expiratory 8 Pressure Ventilator Pressure Support 8 Inspiratory Phase Time 0.9 I:E Ratio 1:3.2 Patient Position HOB >= 30 degrees Labs 08/21/22 04:13 08/21/22 04:13 Labs: Laboratory Results - last 24 hr 08/20/22 08/21/22 08/21/22 04:30 04:13 04:13 WBC 11.7 H RBC 4.29 Hgb 13.8 Hct 42.8 MCV 99.8 MCH 32.2 MCHC 32.3 RDW 16.1 H Plt Count 152 Neut % (Auto) Not Reportable Lymph % (Auto) Not Reportable [place] % (Auto) Not Reportable Eos % (Auto) Not Reportable Baso % (Auto) Not Reportable Lymph # (Auto) Not Reportable [place] # (Auto) Not Reportable Baso # (Auto) Not Reportable Total Counted 100 Seg Neutrophils % 89.0 H Lymphocytes % (Manual) 7.0 L Monocytes % (Manual) 4.0 Neutrophils # (Manual) 97543 H RBC Morphology See below Polychromasia 1+ H PT INR ABG pH ABG pCO2 ABG pO2 ABG HCO3 ABG Total CO2 ABG O2 Saturation ABG Base Excess FiO2 Sodium 141 Potassium 4.4 Chloride 104 Carbon Dioxide 31 BUN 61 H Creatinine 1.74 H Estimated GFR 33 L BUN/Creatinine Ratio 35.1 H Glucose 313 H Calcium 9.6 Magnesium 2.3 Total Bilirubin 0.9 AST 181 H ALT 952 H Alkaline Phosphatase 74 Total Protein 6.7 Albumin 3.6 Globulin 3.1 Albumin/Globulin Ratio 1.2 TSH 1.43 08/21/22 08/21/22 04:13 07:24 WBC RBC Hgb Hct MCV MCH MCHC RDW Plt Count Neut % (Auto) Lymph % (Auto) [place] % (Auto) Eos % (Auto) Baso % (Auto) Lymph # (Auto) [place] # (Auto) Baso # (Auto) Total Counted Seg Neutrophils % Lymphocytes % (Manual) Monocytes % (Manual) Neutrophils # (Manual) RBC Morphology Polychromasia PT 15.0 H INR 1.3 ABG pH 7.46 H ABG pCO2 40.3 ABG pO2 91 ABG HCO3 28 H ABG Total CO2 30 H ABG O2 Saturation 97 ABG Base Excess 4.0 H FiO2 30 Sodium Potassium Chloride Carbon Dioxide BUN Creatinine Estimated GFR BUN/Creatinine Ratio Glucose Calcium Magnesium Total Bilirubin AST ALT Alkaline Phosphatase Total Protein Albumin Globulin Albumin/Globulin Ratio TSH Exam Vital Signs (past 8 hours): - 08/21/22 01:00 08/21/22 01:00 08/21/22 01:01 Temperature 101.3 F H 101.3 F H Pulse Rate 60 59 L Respiratory Rate 16 16 Blood Pressure 157/80 H Pulse Oximetry 97 97 Oxygen Delivery Method 08/21/22 02:00 08/21/22 02:00 08/21/22 02:09 Temperature 101.5 F H 101.5 F H Pulse Rate 58 L 59 L Respiratory Rate 16 16 Blood Pressure 145/97 H Pulse Oximetry 97 97 Oxygen Delivery Method 08/21/22 03:00 08/21/22 03:00 08/21/22 03:01 Temperature 101.5 F H 101.5 F H Pulse Rate 57 L 57 L Respiratory Rate 16 16 Blood Pressure 138/87 Pulse Oximetry 98 98 Oxygen Delivery Method 08/21/22 04:00 08/21/22 04:00 08/21/22 04:00 Temperature 101.3 F H Pulse Rate 63 Respiratory Rate 16 Blood Pressure 159/87 H Pulse Oximetry 97 Oxygen Delivery Method Mechanical Ventilation 08/21/22 04:12 08/21/22 05:00 08/21/22 05:00 Temperature 101.3 F H 101.5 F H Pulse Rate 66 61 Respiratory Rate 17 16 Blood Pressure 148/82 H Pulse Oximetry 97 97 Oxygen Delivery Method 08/21/22 05:02 08/21/22 05:27 08/21/22 05:42 Temperature 101.5 F H 101.5 F H Pulse Rate 61 60 Respiratory Rate 16 Blood Pressure 155/67 H Pulse Oximetry 97 Oxygen Delivery Method 08/21/22 06:01 08/21/22 06:56 08/21/22 06:00 Temperature 101.5 F H Pulse Rate 60 Respiratory Rate Blood Pressure 151/72 H 144/74 H Pulse Oximetry Oxygen Delivery Method 08/21/22 06:00 08/21/22 07:00 08/21/22 07:00 Temperature 101.5 F H 101.5 F H Pulse Rate 60 59 L Respiratory Rate 16 16 Blood Pressure 156/75 H Pulse Oximetry 97 98 Oxygen Delivery Method 08/21/22 08:00 08/21/22 08:00 Temperature 101.5 F H Pulse Rate 57 L Respiratory Rate 16 Blood Pressure 148/75 H Pulse Oximetry 97 Oxygen Delivery Method Fraction of Inspired Oxygen 30 SaO2/FiO2 Ratio 323 Oxygen Delivery Method Mechanical Ventilation Oxygen Flow Rate 2 Narrative Exam Narrative: patient seen over two way audio visual system. She appears still lethargic but does open spontaneously and to voice. Quality TeleICU VTE Deep Vein Thrombosis/Pulmonary Embolism Present on Admission: No Assessment & Plan Assessment & Plan narrative: Acute on chronic respiratory failure (hypercapnia > hypoxia) CHF exacerbation COPD exacerbation Aspiration PNA acute on chronic renal failure fever transaminitis probably from shock liver-improving Plan DISABILITIES SERVICES OFFICER: -patient currently off sedation -if patient fails SBT and needs to go back on sedation, will switch from precedex to propofol instead to see if fever is related to precedex -if patient passes SBT and gets extubated, consider restarting patient's home gabapentin, fluoxetin, buproprion CV: SBP 120-160's.? Pt. is usually on Coreg at home but HR currently in low 50s started Hydralazine 08/20 for BP control and afterload reduction -increase hydralazine from 10 to 25 mg TID for better BP control Pulm: attempt SBT again when sedation weaned down further -continue bronchodilators -wean steroids to off in next few days as tolerated if no signs of bronchoscospasms? ID: fever could be related to precedex but will monzon culture and recheck procal in case pt. is developing another infection -continue empirical Zosyn for now and plan for 7 day course if no development of new infection Heme: daily CBC GI: LFts continuing to trend down FEN/Renal: Creatinine continues to trend down with continued diuresis -lasix/diamox as needed to keep patient 500-1000 cc net neg a day Endo: monitor BG q6h and titrate insulin as needed for euglycemia - Levothyroxine restarted PPx: Protonix and heparin FULL CODE CCT spent 45 min
[2022-08-21 09:55] LABS: Appearance Urine UA CLEAR; Bilirubin Urine UA NEGATIVE (NEGATIVE); Color Urine UA YELLOW; Glucose Urine UA 3+ g/dL (Negative); Ketones Urine UA NEGATIVE (NEGATIVE); Leukocyte Esterase Urine UA NEGATIVE (NEGATIVE); Nitrite Urine UA NEGATIVE (Negative); Occult Blood Urine UA 1+ (Negative); Protein Urine UA 2+ (Negative); Specific Gravity Urine UA 1.015 (1.000-1.035); Urobilinogen Urine UA 0.2 E.U./dL (0.2)
[2022-08-21 09:59] LABS: pH Urine UA 7.5 (4.5-8.0)
[2022-08-21 10:01] LABS: Procalcitonin 0.26 ng/mL (<0.5)
[2022-08-21 10:08] LABS: Bacteria Urine None Seen; Culture Indicated Urine Cult Not Indicated; RBC Urine 0-1/HPF (0-5/HPF); Squamous Epithelial Cell Urine None Seen (0-5/HPF); WBC Urine None Seen (0-5/HPF)
--- NOTE | 2022-08-21 10:19 | RT ---
PT EXTUBATED TO 3 LPM N/C AT [address] VERBAL ORDER [address] FAYE.
[2022-08-21 10:23] LABS: pH ABG 7.44 (7.35-7.45)
[2022-08-21 10:24] LABS: Fractionated Inspired Oxygen 30; HCO3 ABG 28 mmol/L (23-27); Oxygen Saturation ABG 97 % (95-100); PCO2 ABG 41.3 mmHg (35-45); PO2 ABG 84 mmHg (80-100); TCO2 ABG 29 mmol/L (23-27)
--- NOTE | 2022-08-21 10:26 | PC.NURSE ---
1016 - Patient extubated at bedside with RT per Dr. Hall. Tolerated well. A/O x4, 93% on 2L NC.
[2022-08-21] MEDS: MONTELUKAST 10 MG TABLET PO (11:04)
[2022-08-21] MEDS: HYDRALAZINE 25 MG TABLET PO (13:22)
--- NOTE | 2022-08-21 15:07 | CM.DPNOTE ---
Discharge Planning Note: Patient was extubated this morning and is off sedation. She has tolerated well today and is A&Ox4. She was planning to call her daughter Roxy when this DCP was in to see her. ST and PT will be needed. Currently on O2 which is her baseline. Plan: Follow closely for needs. When recovered more, consider if she is strong enough to return to [place] (*she will need to use the walker and restroom independently). Latonya Castillo RN/DCP
[2022-08-21] MEDS: TRAMADOL 50 MG TABLET PO (23:54)
[2022-08-22] VITALS (42 sets, daily range): BP systolic 105–192; BP diastolic 50–114; PULSE 52–90; RESP 18–35; TEMP 36.7–37.5; O2SAT 93–100
[2022-08-22] MEDS: PIPERACILLIN/TAZO 4.5 GM in SODIUM CHLORIDE 0.9% 100 ML IV ×3 (02:28→17:45)
[2022-08-22] MEDS: ALBUTEROL/IPRATROPIUM 3 ML AMPUL INH ×5 (03:12→19:09)
[2022-08-22] MEDS: HEPARIN 5,000 UNIT/ML VIAL 7500 UNIT SUBCUT ×3 (04:27→21:39)
[2022-08-22 04:42] LABS: Add Manual Diff / Slide Review NO; Basophils Absolute Auto 100 /uL (0-100); Basophils Percent Auto 0.4 % (0-2); Eosinophils Absolute Auto 0 /uL (0-450); Eosinophils Percent Auto 0.1 % (2-4); Hematocrit 39.2 % (36-46); Hemoglobin 12.6 g/dL (12.0-16.0); Lymphocytes Absolute Auto 800 /uL (1100-4500); Lymphocytes Percent Auto 6.1 % (25-40); Mean Corpuscular HGB Conc 32.1 % (30-36); Mean Corpuscular Hemoglobin 32.1 PG (26-34); Monocytes Absolute Auto 800 /uL (0-900); Monocytes Percent Auto 6.1 % (3-14); Neutrophils Absolute Auto 11900 /uL (1500-7000); Neutrophils Percent Auto 87.3 % (50-75); Platelet Count 136 X10^3/uL (150-400); Red Blood Cell Count 3.92 X10^6/uL (4.0-5.2); Red Cell Distribution Width 16.6 % (11.6-14.8); White Blood Cell Count 13.6 X10^3/uL (4.5-11.0)
[2022-08-22 04:45] LABS: INR 1.3 (0.9-1.3); Prothrombin Time 14.7 SECONDS (10.1-12.7)
[2022-08-22 04:49] LABS: BUN Creatinine Ratio 33.7 (6-22); Blood Urea Nitrogen 58 mg/dL (7-17); Calcium 9.1 mg/dL (8.4-10.2); Carbon Dioxide 35 mmol/L (22-32); Chloride 103 mmol/L (98-107); Estimated Glomerular Filt Rate 34 mL/min (>60); Glucose 160 mg/dL (80-110); HEMOLYSIS 18 (0-50); Potassium 3.9 mmol/L (3.4-5.1); Sodium 141 mmol/L (137-145)
[2022-08-22] MEDS: LEVOTHYROXINE 100 MCG TABLET PO (05:35)
[2022-08-22] MEDS: LEVOTHYROXINE 75 MCG TABLET PO (05:36)
--- NOTE | 2022-08-22 08:48 | P.TELICUPN_ITS ---
Subjective Subjective IF CAMERA ACTIVATED, patient seen via real-time interactive audiovisual communication: Camera activated Date Patient Seen: 08/22/22 Consent obtained for tele-property damage claims adjustor care: Yes Patient Location: ICU Provider location (State): [place] Other participants/roles: Bedside RN Interval history: 61 year? old female with PMH of COPD on 2L O2, PONCE on CPAP, CHFpEF, morbid obesity, DM on insulin, HTN and hypothyroidism who presented 08/15 with several weeks of LE swelling and SOB and required intubation in ER.? THere was also probable aspiration as well as strawberry pieces were aspirated from ET tube. 08/17: extubated to BIPAP 08/18: reintubated for worsening mental status and hypercapnea 08/19: continued diuresis 08/20: failed SBT because of apnea, sedation weaned down.? Extubated on 08/21. On 2 L NC with sats in mid 90's. BP and BG better controlled today. has weak cough, getting speech/swallow screen today Current Medications Current Medications Medications: Home Medications acetaminophen 325 mg tablet (Tylenol) 650 mg PO TID 05/25/22 [History Confirmed 08/15/22] aspirin 81 mg tablet,delayed release 81 mg PO DAILY 05/25/22 [History Confirmed 08/15/22] budesonide-formoterol HFA 160 mcg-4.5 mcg/actuation aerosol inhaler 2 puff inha lation Q4H PRN Wheezing 05/25/22 [History Confirmed 08/15/22] bupropion HCl 150 mg tablet,12 hr sustained-release 150 mg PO BEDTIME 05/25/22 [History Confirmed 08/15/22] carvedilol 3.125 mg tablet 3.125 mg PO BID 05/25/22 [History Confirmed 08/15/22] cyanocobalamin (vitamin B-12) 500 mcg tablet 500 mcg PO DAILY 05/25/22 [History Confirmed 08/15/22] fenofibrate 160 mg tablet 160 mg PO DAILY 05/25/22 [History Confirmed 08/15/22] ferrous sulfate 325 mg (65 mg iron) tablet 325 mg PO DAILY 05/25/22 [History Confirmed 08/15/22] fluoxetine 20 mg tablet 20 mg PO DAILY 05/25/22 [History Confirmed 08/15/22] fluticasone propionate 50 mcg/actuation nasal spray,suspension 2 spray intranasal DAILY 05/25/22 [History Confirmed 08/15/22] gabapentin 300 mg capsule 300 mg PO BEDTIME 05/25/22 [History Confirmed 08/15/22] insulin glargine 100 unit/mL (3 mL) subcutaneous pen 22 unit SUBCUT BID 05/25/22 [History Confirmed 08/16/22] insulin lispro 100 unit/mL subcutaneous solution (Humalog U-100 Insulin) 4 unit SUBCUT TIDWM 05/25/22 [History Confirmed 08/16/22] lidocaine 5 % topical patch 1 patch topical DAILY 05/25/22 [History Confirmed 08/15/22] loratadine 10 mg tablet 10 mg PO DAILY 05/25/22 [History Confirmed 08/15/22] magnesium oxide 200 mg PO BID 05/25/22 [History Confirmed 08/15/22] meclizine 25 mg tablet 25 mg PO Q8HR PRN Dizziness 05/25/22 [History Confirmed 08/15/22] montelukast 10 mg tablet 10 mg PO DAILY 05/25/22 [History Confirmed 08/15/22] nystatin 100,000 unit/gram topical powder 1 applic topical BID PRN Rash 05/25/22 [History Confirmed 08/16/22] ondansetron 4 mg disintegrating tablet 4 mg PO Q8H PRN Nausea 05/25/22 [History Confirmed 08/15/22] rosuvastatin 40 mg tablet 40 mg PO DAILY 05/25/22 [History Confirmed 08/15/22] sennosides 8.6 mg tablet (senna) 17.2 mg PO BEDTIME 05/25/22 [History Confirmed 08/15/22] tiotropium bromide 18 mcg capsule with inhalation device (Spiriva with HandiHaler) 1 cap inhalation DAILY 05/25/22 [History Confirmed 08/15/22] trazodone 50 mg tablet 50 mg PO BEDTIME 05/25/22 [History Confirmed 08/15/22] albuterol sulfate 90 mcg/actuation aerosol inhaler 4 puff inhalation Q4H PRN Shortness Of Breath Or Wheezing 08/15/22 [History Confirmed 08/15/22] levothyroxine 175 mcg tablet 175 mcg PO DAILY 08/15/22 [History Confirmed 08/15/22] potassium chloride 10 mEq tablet,extended release 10 meq PO DAILY 08/15/22 [History Confirmed 08/15/22] torsemide 10 mg tablet 20 mg PO BID 08/15/22 [History Confirmed 08/16/22] Visit Medications (administered) Generic Name Dose Route Start Last Admin Trade Name Freq PRN Reason Stop Dose Admin Acetaminophen 650 mg 08/16/22 14:49 08/21/22 13:22 Acetaminophen Susp 650 Mg/20.3 Ml Udc PO 650 mg Q6HR PRN Administration Fever/Mild Pain (1-3) Acetaminophen 650 mg 08/17/22 14:26 08/17/22 14:58 Acetaminophen 650 Mg Supp GA 650 mg Q6HR PRN Administration Fever/Mild Pain (1-3) Albuterol 2.5 mg 08/15/22 23:46 08/17/22 14:39 Albuterol 2.5 Mg/3 Ml Neb (Adult) INH 2.5 mg [id number] PRN Administration Shortness Of Breath Albuterol/Ipratropium 3 ml 08/15/22 23:46 08/22/22 06:59 Albuterol/Ipratropium 3 Ml Ampul INH 3 ml [id number] JAY JAY Administration Heparin Sodium (Porcine) 7,500 unit 08/16/22 12:00 08/22/22 04:27 Heparin 5,000 Unit/Ml Vial SUBCUT 7,500 unit Q8H JAY JAY Administration Hydralazine HCl 25 mg 08/21/22 14:00 08/22/22 07:09 Hydralazine 25 Mg Tablet PO Not Given Q8HR JAY JAY Piperacillin Sod/Tazobactam 100 mls @ 25 mls/hr 08/16/22 10:00 08/22/22 02:28 Sod 4.5 gm/ Sodium Chloride IV 08/23/22 09:59 25 mls/hr Q8H JAY JAY Administration dexmedeTOMIDine in 0.9 % NaCL 400 mcg in 100 mls @ 6.43 mls/hr 08/16/22 09:45 08/21/22 07:35 Precedex IV 0 mcg/kg/hr TITRATE JAY JAY 0 mls/hr Titration Protocol 0.2 MCG/KG/HR Fentanyl 1,000 mcg/ Dextrose 250 mls @ 22.488 mls/hr 08/18/22 15:45 08/20/22 15:19 IV 0 mcg/kg/hr TITRATE JAY JAY 0 mls/hr Titration Protocol 0.7 MCG/KG/HR Propofol 1,000 mg in 100 mls @ 3.855 mls/hr 08/18/22 15:45 08/19/22 00:45 Propofol IV 0 mcg/kg/min TITRATE JAY JAY 0 mls/hr Titration Protocol 5 MCG/KG/MIN Insulin Glargine 50 unit 08/21/22 09:00 08/21/22 21:18 Insulin Glargine 100 Unit/Ml 3ml Pen SUBCUT 50 unit BID JAY JAY Administration Insulin Human Lispro 0 unit 08/17/22 09:00 08/22/22 02:28 Insulin Lispro 100 Unit/Ml 3ml Vial SUBCUT Not Given Q6H [facility] Protocol Levothyroxine Sodium 100 mcg 08/22/22 06:00 08/22/22 05:35 Levothyroxine 100 Mcg Tablet PO 100 mcg 0600 JAY JAY Administration Levothyroxine Sodium 75 mcg 08/22/22 06:00 08/22/22 05:36 Levothyroxine 75 Mcg Tablet PO 75 mcg 0600 JAY JAY Administration Methylprednisolone 20 mg 08/21/22 11:00 08/21/22 11:04 Methylprednisolone 40 Mg/Ml Vial IV 08/23/22 10:59 20 mg 1100 JAY JAY Administration Montelukast Sodium 10 mg 08/16/22 09:00 08/21/22 11:04 Montelukast 10 Mg Tablet PO 10 mg DAILY JAY JAY Administration Nystatin 1 applic 08/18/22 09:00 08/21/22 22:34 Nystatin Powder 15gm TOP Not Given BID [facility] Pantoprazole Sodium 40 mg 08/17/22 09:00 08/21/22 08:41 Pantoprazole 40 Mg Vial IV 40 mg DAILY JAY JAY Administration Tramadol HCl 50 mg 08/21/22 23:37 08/21/22 23:54 Tramadol 50 Mg Tablet PO 50 mg QID PRN Administration Pain, Moderate (4-6) Objective Ventilator Parameters: NA Labs 08/22/22 04:10 08/22/22 04:10 Labs: Laboratory Results - last 24 hr 08/21/22 08/21/22 08/21/22 09:16 09:20 10:09 WBC RBC Hgb Hct MCV MCH MCHC RDW Plt Count Neut % (Auto) Lymph % (Auto) [place] % (Auto) Eos % (Auto) Baso % (Auto) Neut # (Auto) Lymph # (Auto) [place] # (Auto) Eos # (Auto) Baso # (Auto) PT INR ABG pH 7.44 ABG pCO2 41.3 ABG pO2 84 ABG HCO3 28 H ABG Total CO2 29 H ABG O2 Saturation 97 ABG Base Excess 4.0 H FiO2 30 Sodium Potassium Chloride Carbon Dioxide BUN Creatinine Estimated GFR BUN/Creatinine Ratio Glucose Calcium Procalcitonin 0.26 Urine Color Yellow Urine Appearance Clear Urine pH 7.5 Ur Specific [place] 1.015 Urine Protein 2+ H Urine Glucose (UA) 3+ H Urine Ketones Negative Urine Occult Blood 1+ H Urine Nitrate Negative Urine Bilirubin Negative Urine Urobilinogen 0.2 Ur Leukocyte Esterase Negative Urine RBC 0-1/hpf Urine WBC None seen Ur Squamous Epith Cells None seen Urine Bacteria None seen Ur Culture Indicated? Cult not indicated 08/22/22 08/22/22 08/22/22 04:10 04:10 04:10 WBC 13.6 H RBC 3.92 L Hgb 12.6 Hct 39.2 MCV 100.0 MCH 32.1 MCHC 32.1 RDW 16.6 H Plt Count 136 L Neut % (Auto) 87.3 H Lymph % (Auto) 6.1 L [place] % (Auto) 6.1 Eos % (Auto) 0.1 L Baso % (Auto) 0.4 Neut # (Auto) 54494 H Lymph # (Auto) 800 L [place] # (Auto) 800 Eos # (Auto) 0 Baso # (Auto) 100 PT 14.7 H INR 1.3 ABG pH ABG pCO2 ABG pO2 ABG HCO3 ABG Total CO2 ABG O2 Saturation ABG Base Excess FiO2 Sodium 141 Potassium 3.9 Chloride 103 Carbon Dioxide 35 H BUN 58 H Creatinine 1.72 H Estimated GFR 34 L BUN/Creatinine Ratio 33.7 H Glucose 160 H D Calcium 9.1 Procalcitonin Urine Color Urine Appearance Urine pH Ur Specific [place] Urine Protein Urine Glucose (UA) Urine Ketones Urine Occult Blood Urine Nitrate Urine Bilirubin Urine Urobilinogen Ur Leukocyte Esterase Urine RBC Urine WBC Ur Squamous Epith Cells Urine Bacteria Ur Culture Indicated? Exam Vital Signs (past 8 hours): - 08/22/22 01:00 08/22/22 01:00 08/22/22 02:01 Temperature 98.2 F 98.1 F Pulse Rate 60 52 L Respiratory Rate 22 21 Blood Pressure 113/65 Pulse Oximetry 93 96 Oxygen Delivery Method Oxygen Flow Rate 2 2 2 08/22/22 02:01 08/22/22 02:49 08/22/22 03:12 Temperature 98.1 F Pulse Rate 62 55 L Respiratory Rate 24 20 Blood Pressure 115/64 Pulse Oximetry 96 100 Oxygen Delivery Method Aerosol Mask Oxygen Flow Rate 2 2 08/22/22 03:01 08/22/22 03:01 08/22/22 04:01 Temperature 98.2 F 98.2 F Pulse Rate 53 L 64 Respiratory Rate 20 20 Blood Pressure 123/57 L Pulse Oximetry 96 94 Oxygen Delivery Method Oxygen Flow Rate 2 2 2 08/22/22 04:01 08/22/22 04:19 08/22/22 07:05 Temperature 98.2 F Pulse Rate 73 78 Respiratory Rate 22 18 Blood Pressure 110/50 L Pulse Oximetry 93 97 Oxygen Delivery Method Nasal Cannula Oxygen Flow Rate 2 2 1 Fraction of Inspired Oxygen 30 SaO2/FiO2 Ratio 323 Oxygen Delivery Method Nasal Cannula Oxygen Flow Rate 1 Narrative Exam Narrative: Alert, awake. No respiratory distress. on 2 L NC. Tele showing NSR Quality TeleICU VTE Deep Vein Thrombosis/Pulmonary Embolism Present on Admission: No Stress Ulcer Stress ulcer prophylaxis: yes Assessment & Plan Assessment and plan (1) Acute hypercapnic respiratory failure: Status: Acute (2) Acute on chronic systolic CHF (congestive heart failure): Status: Acute (3) Acute kidney injury superimposed on CKD: Status: Acute (4) DM2 (diabetes mellitus, type 2): Status: Acute (5) HTN (hypertension): Status: Acute Plan Acute hypercapenic respiratory failure: likely 2/2 acute chf, aspiration PNA/pneumonitis Resolving. Extubated on 08/21. Now on 2 L NC. Continue nightly CPAP for PONCE Continue nebs Steroid taper Can d/c zosyn after 7 day course. Procalcitonin remains negative. New cultures pending. Yeast in sputum likely contaminant Has weak cough- swallow study today CHest PT by RT q 4 while awake, incentive spirometer encourage moblization CHF Patient continues to auto diurese Cr down trending Continue hydralazine for afterload reduction- BP well controlled today HR remains in 60's BLANCA on CKD Cr continues to improve with diuresis and resolution of shock state Continue to monitor goal 500 cc net neg/day, lasix PRN when euvolemic can restart home dose diuretics (torsemide) Trend K, Mg DM2 Insulin therapy adjusted yesterday BG better controlled today 300's-->160 Continue levothyroxine Swallow study today: When able to take PO consider restrating home meds, gapapentin, fluoxetine, bupropin, ASA when LFT's normalize can restart statin PPX: heparin SQ now extubated, can d/c GI ppx unless home med or concern for active GI bleed Time Spent With Patient Time with patient: less than 30 minutes (No active critical care issues)
[2022-08-22] MEDS: PANTOPRAZOLE 40 MG VIAL IV (08:54)
[2022-08-22] MEDS: NYSTATIN POWDER 15GM 1 APPLIC TOP ×2 (08:56→21:40)
--- NOTE | 2022-08-22 09:06 | CM.DPC ---
DCP Cont: Spoke to Ursula at [facility], she is continue to follow. Patient has not yet worked with P.T, or O.T, she can't submit the auth until she works with the therapy team. If patient is back to her baseline, independent with her walker, then she can return to [place]. P: DCP to continue to follow closely, plan will either be back to [place] or [facility]. Lili Pierre RN/Valet Service Attendant
--- NOTE | 2022-08-22 12:30 | PC.NURSE ---
Day shift: Pt A&Ox4, aware of self, time, place, and situation. VSS. After taking a sip of coffee, pt coughed, eyes watering and cough weak. Provider notified, pt NPO until speech. Speech eval conducted, see speech note. Pt educated on the importance of repositioning in the bed. Pt refuses to reposition at this time. Pt educated on the importance of deep breathing, using incentive spirometry, and sitting up in bed or in chair. Pt instructed on safe swallowing and the instructions provided by speech therapy. Pt lifted up in bed with sling and mechanical lift, continues to refuse to turn. This RN explained the importance of turning for prevention of pressure injuries. Pt stated she may allow this after her meal. Care ongoing.
--- NOTE | 2022-08-22 12:39 | ST.IPCSEOM ---
Visit Care Team Role Provider Type Simone Rodgers MD Primary Care Provider Non-Staff Specialty: Family Practice Address: [facility], [address] [place] [address], [id number] Email: Samm Bloom MD Other Providers Physician Specialty: Medical Address: Phone: Fax: Email: Karen Hall MD Other Providers Physician Specialty: Medical Address: Phone: Fax: Email: Jim Talamantes MD Other Providers Physician Specialty: Medical Address: [address] [place], [address] Phone: Fax: Email: Ezekiel Tate MD Other Providers Physician Specialty: Internal Medicine Address: Phone: Fax: Email: Romero Faustin MD Other Providers Physician Specialty: Medical Address: Phone: Fax: Email: Gracie Gerardo MD Other Providers Physician Specialty: Anesthesiology Internal Medicine Address: [address] [place], [address] Fax: Email: [email or web address] Rodrigo Agarwal MD Other Providers Physician Specialty: Internal Medicine Address: [address] [place], [address] Phone: Fax: Email: [email or web address] Mark Aguilar MD Other Providers Physician Specialty: Internal Medicine Address: Phone: Fax: Email: Gustavo Hall MD Other Providers Physician Specialty: Medical Address: Phone: Fax: Email: Valdemar Pacheco MD Other Providers Physician Specialty: Internal Medicine Address: [address] [place], [address] Phone: Fax: Email: Jan Soriano MD Other Providers Physician Specialty: Medical Address: [address], [address] Phone: Fax: Email: Teofilo Arredondo MD Other Providers Physician Specialty: Medical Address: Phone: Fax: Email: Meghan Oliveira Other Providers Physician Specialty: Medical Address: Phone: Fax: Email: Katharine Ramos MD Other Providers Physician Specialty: Internal Medicine Address: Phone: Fax: Email: Jayne Muhammad DO Emergency Provider Physician Referring Provider Specialty: Emergency Medicine Address: [address], [place], [address] Email: [email or web address] Ramirez MD Admit Provider Physician Attending Provider Specialty: Hospitalist Address: [address] [place] [address], [address] Fax: Email: [email or web address] Diagnoses Type 2 diabetes mellitus without complications (08/15/22) Essential (primary) hypertension (08/15/22) Acute on chronic systolic (congestive) heart failure (08/15/22) Acute respiratory failure with hypoxia (08/15/22) Acute respiratory failure with hypercapnia (08/15/22) Acute kidney failure, unspecified (08/15/22) Chronic kidney disease, unspecified (08/15/22) Past Medical History (Last Updated 08/22/22 @ 08:53 by Gracie Gerardo MD) Chronic hypoxemic respiratory failure (Medical) COPD (chronic obstructive pulmonary disease) (Medical) DM2 (diabetes mellitus, type 2) (Medical) HTN (hypertension) (Medical) Obesity (Medical) PONCE (obstructive sleep apnea) (Medical) Systolic and diastolic CHF, chronic (Medical) Thyroiditis (Medical) Speech-Language Pathology Swallow Evaluation PLANNER SCHEDULER Clinical Swallow Evaluation Start: 08/17/22 15:05 Freq: Status: Active Protocol: Document 08/22/22 12:07 CG (Rec: 08/22/22 12:39 CG [id number]) Clinical Swallow Evaluation Session Time Visit Start Time 11:35 Visit Stop Time 12:05 Total Visit Minutes [address] Ríos Reason for Referral s/p extubation; suspected aspiration PNA Setting Assessment Location Acute Care Visit Type Note Type Re-evaluation Next Note Type Next Note Type Re-evaluation Patient Information Identification Type Name,Wristband History Pt s a 61W with PMH COPD on 2L O2, PONCE on cpap, CHFpEF, morbid obesity, DM on insulin, htn, hypothyroid who presented to the Ed on 08/15/22 with shortness of breath. She has been feeling worse for the last couple weeks per the ED physician note. Chest xray at that time was notable for interstitial and central vascular congestion. She was noted by ED staff to possibly have strawberry food particles suctioned from ET tube. She was ordered for antibiotics, steroids, and lasix. She was sedated and was placed on vent settings tv 350, rr 18, peep 10, fio 2 50%. A chest xray on 08/16/22 indicated There are diffuse interstitial radiopacities. The lung bases are not well characterized; however airspace opacities likely persist at the left lung base similar to the study dated August 15, 2022. Pt diagnosed with possible aspiration pneumonia. Pt was extubated 08/17/22 and put on bipap. Pt was evaluated by PLANNER SCHEDULER initially on 08/18/22 and was put on NPO due to s/sx aspiration across liquid trials and SOB with intake. On 08/19/22, she was re-intubated. She was extubated 08/21/22 and was found to be alert and oriented x4 at this time. ST orders were placed again for new swallow evaluation following most recent extubation. Subjective Observations Pt was in bed with CPAP in place upon initial ST entry to room. RT removed CPAP in order for PLANNER SCHEDULER to complete PO trials for evaluation. A cup of water and cup of coffee were present on pt's tray across the room upon ST entry. Pt stated that she had had water and coffee this morning, though NPO status still in place with signage on door. Pt was reclined in bed and PLANNER SCHEDULER assisted pt in repositioning herself with bed control. Pt did not want to sit higher than 45 degrees. PLANNER SCHEDULER explained it would be safer to sit up higher, but pt expressed 45 degrees was as high as she could tolerate. Nursing stated that she failed her swallow screen this morning and presented with severe coughing episode on trial of thin. However, nursing also states that they had a hard time getting pt safely positioned due to pt resistance to upright position . Upon ST interview this morning, pt stated that she has been coughing but states it is unrelated to PO intake and is consistent throughout the day. Reported by Patient/Caregiver Pain/Discomfort No Other Symptoms Coughing,Difficulty swallowing liquids,History of aspiration or pneumonia Comment Pt states some coughing, but does not believe it is related to PO intake. However, nursing reports the pt coughed with liquids this morning. Current Diet NPO Baseline Feeding Method Independent in self-feeding Objective Assessment Mental Status Alert,Cooperative Oral Integrity Xerostomia/Dry mouth Dentition Missing teeth,Inadequate dentition for mastication Lip Function Within normal limits Observation of Lips at Rest Symmetrical Pucker Within normal limits Lip Retraction Within normal limits Alternating Pucker/Lip Retraction Within normal limits Tongue Function Within normal limits Observations of Tongue at Rest Within normal limits Tongue Protrusion Within normal limits Tongue Retraction Within normal limits Tongue Lateralization Within normal limits Jaw Function Within normal limits Observation of Jaw at Rest Within normal limits Jaw Opening Within normal limits Jaw Closing Within normal limits Hard/Soft Palate Function Within normal limits Nasality Within normal limits Respiratory Sufficiency Moderate impairment Comment OME was observed to be WFL. Pt is mostly edentulous - she has four lower teeth on each side of her mouth, and no upper teeth. Nursing stated that daughter reports that the pt has no dentures. Pt states she has dentures at home but doesn't wear them as she doesn 't have adhesive to make them stick. Food and Liquid Trials Position During Assessment Slightly reclined,In bed Liquids Trialed Ice chips,Thin (IDDSI 0), Mildly Thick (IDDSI 2) Solid Trials Purred (IDDSI 4),Soft & Bite- sized (IDDSI 6) Administration Type Tea spoon,Cup single sip,Cup consecutive sips,Straw,Needs some assistance Oral Impairment Moderately impaired Oral Phase Comments Pt was trialed with ice chips, thin liquid via teaspoon, thin liquid via single cup sip , thin liquid via consecutive cup sips, puree (applesauce), and small bites of soft cheese stick (IDDSI 6). During trials liquid and puree, oral phase was WFL. During trial IDDSI 6 (cheese stick), pt presented with excessive mastication time and s/sx SOB. O2 stats decreased slightly during mastication due to exertion, from 96% to 93%. However, minimal to no oral residue was present after the swallow. Pharyngeal Impairment Within functional limits Pharyngeal Phase Comments Pt presented with no overt s/ sx aspiration across trials of ice chip, thin via teaspoon, thin via cup sip, and consecutive cup sips. Consecutive cup sips consisted of approximately 3oz of water , as is prescribed by the [facility] Procotol/3oz water challenge. Pt did present with a cough x1 during trials, but this was between trials and apparently unrelated to PO intake. Vocal quality was assessed to be WFL after each trial. 3oz water challenge is generally highly sensistive to detect even silent aspiration; however, silent aspiration still cannot be ruled out without an instrumental assessment, especially given pt's history of suspected aspiration pneumonia and difficulty with thin liquids. During trial solid, pharyngeal phase appeared WFL with no overt s/sx pharyngeal dysphagia observed. Pharyngeal phase appears, at least overtly, to be much improved from previous assessments which is likely due to improvement in overall pt status and alertness. Fatigue/Endurance Mild fatigue Comment O2 saturation mildly decreased during mastication from 96% to 93%. Results Pt presents with oral dysphagia secondary to lack of dentition. Pt continues to have significant rerspiratory limitations (e.g., COPD on 2L O2, PONCE on cpap, CHFpEF). PO intake requires the airway to close for swallows which increases difficulty breathing in pts with these diagnoses. Based on overt s/sx observed during this clinical swallow evaluation, the pt does not present with s/sx aspiration of thin liquids as long as she is positioned as upright as tolerated. Even during consecutive swallows/water challenge, pt did not present with cough or wet vocal quality. However, silent aspiration cannot be ruled out without an instrumental assessment. Recommend liquid order of thin liquid via small sips while positioned upright and continue to monitor respiratory status. Based on pt's respiratory status including SOB, recommend IDDSI 5 Minced and Moist (Dysphagia Mechanical) solids and continue to assess for tolerance. Findings Swallowing Function Oral phase dysphagia Severity of Swallow Impairment Mildly-moderately impaired Contributing Factors to Swallow Reduced oral strength/ Impairment coordination/sensation, Impaired airway protection Comments Respiratory complications Prognosis Fair Based on Bed bound,History of aspiration/aspiration pneumonia,Comorbidities, Duration of symptoms/severity Impact on Safety and Functioning Risk for aspiration Comments Pt must be upright Recommendations Instrumental Assessment Yes Swallowing Treatment Yes Recommended Solids Minced & Moist (IDDSI 5) Recommended Liquids Thin (IDDSI 0) Other Recommendations Instrumental assessment is recommended in order to more accurately assess the pt's pharyngeal swallow safety. However, the pt would not be able to tolerate an MBS at this time and, given her size, she would be unable to fit within the space /seating area for the MBS. FEES assessment (Fiberoptic Endoscopic Evaluation of Swallowing) would be the optimal way to assess the pt's pharyngeal swallow at this time. However, this instrumental assessment is only available by contacting a mobile FEES provider. Safety Precautions/Swallowing Feed only when alert,Remain Recommendations upright (90 degrees) during all oral intake,Small bites and sips when eating,Sensory enhancement (flavor, texture, temperature) Medication Recommendations As Tolerated Discharge Recommendations FDC facility,terminal operator care facility Education Patient/Caregiver Education Described results of evaluation,Patient expressed understanding of evaluation, Patient requires further education/training Goals Short-term Goals Pt's diet will be progressed to least restrictive diet as tolerated based on presence or absence of s/sx dysphagia. Long-term Goals The pt will safelty tolerate least restrictive diet without overt signs/symptoms of aspiration to meet her nutrition and hydration needs. The IDDSI Framework Protocol: IDDSI.1 The IDDSI Framework Protocol: IDDSI.1
[2022-08-22] MEDS: INSULIN LISPRO 100 UNIT/ML 3ML VIAL SUBCUT (14:28)
--- NOTE | 2022-08-22 16:51 | P.PN_ITS ---
Subjective Subjective Interval history: 61-year-old female with hypertension, class 3 obesity, COPD, chronic hypoxic respiratory failure on 2 liters/minute at baseline, hyperlipidemia, obstructive sleep apnea, combined systolic and diastolic congestive heart failure, and thyroiditis with prior admission in May of this year for acute respiratory failure, BLANCA, septic shock, rhabdomyolysis, and acute respiratory failure requiring intubation/mechanical ventilation.? Hospital course was complicated by [place] which was felt to be triggered by albuterol nebulizer treatments.? Patient ultimately discharged on June 01 and did fairly well until mid July when she presented complaining of increased shortness of breath.? Her torsemide was increased for a period of 5 days.? She returned on August 15 w ith worsening complaints of shortness of breath and edema.? She was found to be in respiratory failure and was intubated and.? She was extubated on August 17, but continued to decline and was reintubated on August 18. Patient was successfully extubated yesterday. She is presently sitting upright with nasal cannula in place. RN notes that she did aspirate coffee this morning. Patient is unable to do a modified barium swallow as equipment at this hospital can not accommodate her weight. Previous speech therapist recommended consideration of mobile FEES as an option. Patient is awaiting speech therapy currently. She complains of being very hungry. She denies new shortness of breath or chest pain. Exam Vital Signs (past 8 hours): - 08/21/22 12:00 08/21/22 12:01 08/21/22 12:01 Temperature 99.7 F H 99.7 F H Pulse Rate 62 61 Respiratory Rate 31 H 28 H Blood Pressure 130/60 Pulse Oximetry 94 94 Oxygen Delivery Method Oxygen Flow Rate 08/21/22 12:00 08/21/22 13:59 08/21/22 14:05 Temperature Pulse Rate 62 60 Respiratory Rate 22 Blood Pressure 112/56 L Pulse Oximetry 96 Oxygen Delivery Method Nasal Cannula Nasal Cannula Oxygen Flow Rate 2 08/21/22 13:00 08/21/22 13:01 08/21/22 13:01 Temperature 99.1 F 99.1 F Pulse Rate 63 66 Respiratory Rate 25 H 26 H Blood Pressure 112/56 L Pulse Oximetry 95 95 Oxygen Delivery Method Oxygen Flow Rate 08/21/22 14:00 08/21/22 14:01 08/21/22 14:01 Temperature 99.0 F 99.0 F Pulse Rate 60 60 Respiratory Rate 23 23 Blood Pressure 105/52 L Pulse Oximetry 95 95 Oxygen Delivery Method Oxygen Flow Rate 08/21/22 16:00 08/21/22 15:00 08/21/22 15:00 Temperature 98.8 F Pulse Rate 58 L Respiratory Rate 26 H Blood Pressure 109/57 L Pulse Oximetry 91 Oxygen Delivery Method Nasal Cannula Oxygen Flow Rate 08/21/22 16:00 08/21/22 16:01 08/21/22 16:01 Temperature 98.8 F 98.8 F Pulse Rate 56 L 59 L Respiratory Rate 30 H 27 H Blood Pressure 110/56 L Pulse Oximetry 90 L 90 L Oxygen Delivery Method Oxygen Flow Rate 08/21/22 17:00 08/21/22 17:01 08/21/22 17:01 Temperature 99.0 F 99.0 F Pulse Rate 59 L 58 L Respiratory Rate 27 H 28 H Blood Pressure 117/58 L Pulse Oximetry 94 94 Oxygen Delivery Method Oxygen Flow Rate 08/21/22 18:36 08/21/22 18:00 08/21/22 18:00 Temperature 99.0 F Pulse Rate 76 79 Respiratory Rate 23 31 H Blood Pressure 122/72 Pulse Oximetry 93 96 Oxygen Delivery Method Nasal Cannula Oxygen Flow Rate 1 Fraction of Inspired Oxygen 30 SaO2/FiO2 Ratio 323 Oxygen Delivery Method Nasal Cannula Oxygen Flow Rate 1 Narrative Exam Narrative: GEN:? Middle-aged female, alert and oriented x3, NAD, sitting up in bed HEENT:NC, Face symmetric CHEST: Respiratory excursions symmetric, diminished breath sounds throughout CV: RRR, no M/R/G ABD: Soft, obese, NT/ND, BT present in all 4 quadrants, body habitus limits exam EXTR: warm, well perfused, no C/C/E SKIN: warm and dry, no rash NEURO:? Somnolent, nonfocal Objective Labs 08/22/22 04:10 08/22/22 04:10 Labs: Laboratory Results - last 24 hr 08/21/22 08/21/22 08/21/22 04:13 04:13 04:13 WBC 11.7 H RBC 4.29 Hgb 13.8 Hct 42.8 MCV 99.8 MCH 32.2 MCHC 32.3 RDW 16.1 H Plt Count 152 Neut % (Auto) Not Reportable Lymph % (Auto) Not Reportable Bland % (Auto) Not Reportable Eos % (Auto) Not Reportable Baso % (Auto) Not Reportable Lymph # (Auto) Not Reportable Bland # (Auto) Not Reportable Baso # (Auto) Not Reportable Total Counted 100 Seg Neutrophils % 89.0 H Lymphocytes % (Manual) 7.0 L Monocytes % (Manual) 4.0 Neutrophils # (Manual) 67610 H RBC Morphology See below Polychromasia 1+ H PT 15.0 H INR 1.3 ABG pH ABG pCO2 ABG pO2 ABG HCO3 ABG Total CO2 ABG O2 Saturation ABG Base Excess FiO2 Sodium 141 Potassium 4.4 Chloride 104 Carbon Dioxide 31 BUN 61 H Creatinine 1.74 H Estimated GFR 33 L BUN/Creatinine Ratio 35.1 H Glucose 313 H Calcium 9.6 Magnesium 2.3 Total Bilirubin 0.9 AST 181 H ALT 952 H Alkaline Phosphatase 74 Total Protein 6.7 Albumin 3.6 Globulin 3.1 Albumin/Globulin Ratio 1.2 Procalcitonin Urine Color Urine Appearance Urine pH Ur Specific [place] Urine Protein Urine Glucose (UA) Urine Ketones Urine Occult Blood Urine Nitrate Urine Bilirubin Urine Urobilinogen Ur Leukocyte Esterase Urine RBC Urine WBC Ur Squamous Epith Cells Urine Bacteria Ur Culture Indicated? 08/21/22 08/21/22 08/21/22 07:24 09:16 09:20 WBC RBC Hgb Hct MCV MCH MCHC RDW Plt Count Neut % (Auto) Lymph % (Auto) Bland % (Auto) Eos % (Auto) Baso % (Auto) Lymph # (Auto) Bland # (Auto) Baso # (Auto) Total Counted Seg Neutrophils % Lymphocytes % (Manual) Monocytes % (Manual) Neutrophils # (Manual) RBC Morphology Polychromasia PT INR ABG pH 7.46 H ABG pCO2 40.3 ABG pO2 91 ABG HCO3 28 H ABG Total CO2 30 H ABG O2 Saturation 97 ABG Base Excess 4.0 H FiO2 30 Sodium Potassium Chloride Carbon Dioxide BUN Creatinine Estimated GFR BUN/Creatinine Ratio Glucose Calcium Magnesium Total Bilirubin AST ALT Alkaline Phosphatase Total Protein Albumin Globulin Albumin/Globulin Ratio Procalcitonin 0.26 Urine Color Yellow Urine Appearance Clear Urine pH 7.5 Ur Specific [place] 1.015 Urine Protein 2+ H Urine Glucose (UA) 3+ H Urine Ketones Negative Urine Occult Blood 1+ H Urine Nitrate Negative Urine Bilirubin Negative Urine Urobilinogen 0.2 Ur Leukocyte Esterase Negative Urine RBC 0-1/hpf Urine WBC None seen Ur Squamous Epith Cells None seen Urine Bacteria None seen Ur Culture Indicated? Cult not indicated 08/21/22 10:09 WBC RBC Hgb Hct MCV MCH MCHC RDW Plt Count Neut % (Auto) Lymph % (Auto) Bland % (Auto) Eos % (Auto) Baso % (Auto) Lymph # (Auto) Bland # (Auto) Baso # (Auto) Total Counted Seg Neutrophils % Lymphocytes % (Manual) Monocytes % (Manual) Neutrophils # (Manual) RBC Morphology Polychromasia PT INR ABG pH 7.44 ABG pCO2 41.3 ABG pO2 84 ABG HCO3 28 H ABG Total CO2 29 H ABG O2 Saturation 97 ABG Base Excess 4.0 H FiO2 30 Sodium Potassium Chloride Carbon Dioxide BUN Creatinine Estimated GFR BUN/Creatinine Ratio Glucose Calcium Magnesium Total Bilirubin AST ALT Alkaline Phosphatase Total Protein Albumin Globulin Albumin/Globulin Ratio Procalcitonin Urine Color Urine Appearance Urine pH Ur Specific [place] Urine Protein Urine Glucose (UA) Urine Ketones Urine Occult Blood Urine Nitrate Urine Bilirubin Urine Urobilinogen Ur Leukocyte Esterase Urine RBC Urine WBC Ur Squamous Epith Cells Urine Bacteria Ur Culture Indicated? [facility] Medical History (Updated 08/22/22 @ 08:53 by Gracie Gerardo MD) Chronic hypoxemic respiratory failure COPD (chronic obstructive pulmonary disease) DM2 (diabetes mellitus, type 2) HTN (hypertension) Obesity PONCE (obstructive sleep apnea) Systolic and diastolic CHF, chronic Thyroiditis Surgical History S/P hernia surgery Family History Mother No pertinent past medical history Father No pertinent past medical history Social History household members: other Smoking Status: Former smoker Assessment & Plan Assessment & Plan narrative: 1. Acute on chronic hypoxic respiratory failure Patient was intubated on admission.? She was briefly extubated but became progressively more lethargic and required re-intubation.? She was successfully extubated yesterday.? She is back to her baseline 2 liters/minute via nasal cannula.? Etiology is felt to be secondary to congestive heart failure and aspiration pneumonia.? She remains on Zosyn monotherapy, which is to be compl eted tomorrow. 2. Septic shock Resolved.? She is off pressors.? It was felt her low-grade fevers may have been secondary to a malfunctioning temperature sensor on her indwelling [place]. She has been afebrile today. 3. Acute on chronic combined systolic and diastolic congestive heart failure with ejection fraction of 30-35% Limited echocardiogram done this admission revealed an EF of 30-35% consistent with prior study. Her creatinine is stable at 1.72. This may be her baseline. We will resume her usual torsemide dose tomorrow. 4. Probable aspiration pneumonia Remains on Zosyn.? Of note, she did have an aspiration event in May of this year when she was hospitalized.? She was again noted to aspirate with coffee this morning. She is presently NPO. Discuss the options inclusive of mobile FEES, awaiting for speech therapy assessment, continuing NPO status, or advancing diet without these interventions and recognizing that she will continue to aspirate. In that setting advised if she were to pursue that she would likely need to transition to a DNR code status. For now, patient agrees to remain NPO until speech therapy recommendations can be pursued. 5. Suspected CKD 3 rather than BLANCA Patient's creatinines have been elevated in the 1.7-1.9 range over the past several months. Unfortunately we do not have any baseline when she is not hospitalized. We will continue to monitor. 6. Acute cystitis, aerococcus Well covered with present antibiotics.? Follow-up urine cultures were negative 7. Leg wound Apparently cultures were taken but it was felt this was skin contamination.? Continue local wound care. 8. Diabetes mellitus type 2, insulin requiring, uncontrolled with hyperglycemia Solu-Medrol was decreased yesterday and Lantus was increased. Blood sugars are overall significantly improved..? May need Lantus adjusted back down when she is off steroids. 9. Class 3 obesity BMI is 50.2, raising her risk for significant morbidity/mortality. 10. Obstructive sleep apnea Unclear if patient is on CPAP/BiPAP at baseline. 11. Hypertension Antihypertensives were held secondary to septic shock and neutropenic fevers initially.? Will resume her usual home medications. 12. Hypothyroidism Continue levothyroxine. 13. COPD with presumed exacerbation She remains on Solu-Medrol 20 mg daily for 5 days.? Today is day 5 14. Transaminitis, possibly secondary to shock liver Unclear if this was shock liver or drug-induced liver injury. They have been improving. Will repeat LFTs tomorrow. 15. Bradycardia with prolonged QT Heart rates have normalized. Code status Full Prophylaxis On heparin 7500 units q.8 hours Disposition Transitioned to acute care. Surrogate decision maker: Roxy ramos dtr Quality VTE Deep Vein Thrombosis/Pulmonary Embolism Present on Admission: No
[2022-08-22] MEDS: BUDESONIDE 0.5 MG/2 ML NEB INH (19:09)
[2022-08-22] MEDS: buPROPion SR 150 MG TAB PO (21:39)
[2022-08-22] MEDS: TORSEMIDE 10 MG TABLET 20 MG PO (21:39)
[2022-08-22] MEDS: GABAPENTIN 300 MG CAPSULE PO (21:39)
[2022-08-22] MEDS: carvediloL 3.125 MG TABLET PO (21:41)
[2022-08-22] MEDS: INSULIN GLARGINE 100 UNIT/ML 3ML PEN 25 UNIT SUBCUT (21:54)
[2022-08-23] VITALS (27 sets, daily range): BP systolic 107–152; BP diastolic 55–83; PULSE 65–88; RESP 16–35; TEMP 36.3–37.4; O2SAT 89–98
[2022-08-23] MEDS: PIPERACILLIN/TAZO 4.5 GM in SODIUM CHLORIDE 0.9% 100 ML IV (02:35)
[2022-08-23] MEDS: HEPARIN 5,000 UNIT/ML VIAL 7500 UNIT SUBCUT ×3 (04:36→20:46)
[2022-08-23 04:49] LABS: Add Manual Diff / Slide Review NO; Basophils Absolute Auto 100 /uL (0-100); Basophils Percent Auto 0.5 % (0-2); Eosinophils Absolute Auto 0 /uL (0-450); Eosinophils Percent Auto 0.1 % (2-4); Hematocrit 38.5 % (36-46); Hemoglobin 12.3 g/dL (12.0-16.0); Lymphocytes Absolute Auto 1000 /uL (1100-4500); Lymphocytes Percent Auto 7.8 % (25-40); Mean Corpuscular Hemoglobin 31.9 PG (26-34); Mean Corpuscular Volume 99.7 fL (80-100); Monocytes Absolute Auto 1000 /uL (0-900); Monocytes Percent Auto 7.3 % (3-14); Neutrophils Absolute Auto 11300 /uL (1500-7000); Neutrophils Percent Auto 84.3 % (50-75); Platelet Count 144 X10^3/uL (150-400); Red Blood Cell Count 3.86 X10^6/uL (4.0-5.2); Red Cell Distribution Width 16.1 % (11.6-14.8); White Blood Cell Count 13.4 X10^3/uL (4.5-11.0)
[2022-08-23 05:05] LABS: Alanine Aminotransferase 395 IU/L (<35); Albumin 3.4 g/dL (3.5-5.0); Albumin Globulin Ratio 1.2 (1.0-2.8); Alkaline Phosphatase 53 U/L (38-126); Aspartate Aminotransferase 56 IU/L (14-36); BUN Creatinine Ratio 24.5 (6-22); Bilirubin Total 0.9 mg/dL (0.2-1.3); Blood Urea Nitrogen 52 mg/dL (7-17); Calcium 8.8 mg/dL (8.4-10.2); Carbon Dioxide 33 mmol/L (22-32); Chloride 100 mmol/L (98-107); Estimated Glomerular Filt Rate 26 mL/min (>60); Globulin 2.8 g/dL (1.7-4.1); Glucose 142 mg/dL (80-110); HEMOLYSIS < 15 (0-50); Potassium 4.2 mmol/L (3.4-5.1); Sodium 137 mmol/L (137-145); Total Protein 6.2 g/dL (6.3-8.2)
[2022-08-23] MEDS: LEVOTHYROXINE 100 MCG TABLET PO (05:32)
[2022-08-23] MEDS: LEVOTHYROXINE 75 MCG TABLET PO (05:32)
[2022-08-23] MEDS: BUDESONIDE 0.5 MG/2 ML NEB INH ×2 (07:03→19:48)
[2022-08-23] MEDS: ALBUTEROL/IPRATROPIUM 3 ML AMPUL INH ×5 (07:03→23:13)
[2022-08-23] MEDS: ASPIRIN EC 81 MG TABLET PO (08:08)
[2022-08-23] MEDS: PANTOPRAZOLE 40 MG VIAL IV (08:10)
[2022-08-23] MEDS: TORSEMIDE 10 MG TABLET 20 MG PO ×2 (08:10→20:47)
[2022-08-23] MEDS: FLUoxetine 20 MG CAPSULE PO (08:10)
[2022-08-23] MEDS: POTASSIUM CHLORIDE 10 MEQ TAB PO (08:10)
[2022-08-23] MEDS: TRAMADOL 50 MG TABLET PO (08:10)
[2022-08-23] MEDS: FERROUS SULFATE 325 MG TABLET PO (08:11)
[2022-08-23] MEDS: FENOFIBRATE, MICRONIZED 67 MG CAPSULE 134 MG PO (08:11)
[2022-08-23] MEDS: MONTELUKAST 10 MG TABLET PO (08:11)
[2022-08-23] MEDS: FLUTICASONE 120 SPRAY/16 GM SPRAY.SUSP NASAL (08:12)
[2022-08-23] MEDS: NYSTATIN POWDER 15GM 1 APPLIC TOP ×2 (08:13→22:19)
[2022-08-23] MEDS: carvediloL 3.125 MG TABLET PO ×2 (08:14→20:47)
[2022-08-23] MEDS: INSULIN GLARGINE 100 UNIT/ML 3ML PEN 22 UNIT SUBCUT ×2 (08:49→20:51)
[2022-08-23] MEDS: ACETAMINOPHEN SUSP 650 MG/20.3 ML UDC PO (09:49)
--- NOTE | 2022-08-23 11:21 | PT.IIE ---
Current Diagnoses Type 2 diabetes mellitus without complications (08/15/22) Essential (primary) hypertension (08/15/22) Acute on chronic systolic (congestive) heart failure (08/15/22) Acute respiratory failure with hypoxia (08/15/22) Acute respiratory failure with hypercapnia (08/15/22) Acute kidney failure, unspecified (08/15/22) Chronic kidney disease, unspecified (08/15/22) Surgical History (Last Reviewed 08/15/22 @ 23:35 by Johnathan Ramirez MD) S/P hernia surgery Medical History (Last Updated 08/22/22 @ 08:53 by Gracie Gerardo MD) Chronic hypoxemic respiratory failure COPD (chronic obstructive pulmonary disease) DM2 (diabetes mellitus, type 2) HTN (hypertension) Obesity PONCE (obstructive sleep apnea) Systolic and diastolic CHF, chronic Thyroiditis Physical Therapy Inpatient Evaluation/Re-Eval M1 PT/OT-IP Prior Functional Status Start: 08/23/22 10:54 Freq: NEEDED Status: Active Protocol: Document 08/23/22 10:35 MB (Rec: 08/23/22 11:20 MB [id number]) Medical Review Prior Functional Status Medical History Reviewed Yes Diet/Fluid Consistency Regular Communication No communication problems at baseline Mobility and Gait Pt reports that she took a few steps with her boyfriend's rollator at baseline. Her boyfriend in November. She is supposed to get a power w/c. She states there is a w/c there but it is not hers. She lives at [place]. Activities of Daily Living and IADL's Spit bath. Pt does not provide a lot of information about PLOF when asked. Prior Functional Level (Other details) Pt states she has a mechanical bed without rails. She is not descriptive about BR situation when PT asks. She uses 3L O2 at baseline. Social History Household Members other Living Arrangements Assisted Living Number of Floors (Floors) One Floor Number of Stairs To Enter/Railing? None, there is a ramp Home Equipment Four Wheel Walker,Hospital Bed Employment Status Unemployed Additional Social History Comment She likely has accessible BR ability at [place] M2 PT-IP Current Condition Start: 08/23/22 10:54 Freq: NEEDED Status: Active Protocol: Document 08/23/22 10:35 MB (Rec: 08/23/22 11:20 MB [id number]) Physical Therapy Current Condition Current Condition Evaluation Date 08/23/22 Treatment Diagnosis SOB, ARF, intubatedx2, morbid obesity, profound globalized weakness Onset Date Per nsg, second admission for similar presentation, several weeks M3 PT-IP Subjective Start: 08/23/22 10:54 Freq: NEEDED Status: Active Protocol: Document 08/23/22 10:35 MB (Rec: 08/23/22 11:20 MB [id number]) Subjective Physical Therapy Visit Type Type Initial Evaluation Visit Start Time 09:55 Visit Stop Time 10:35 Total Visit Minutes 40 Number of PET SUPPLIES SALESPERSON Visits 0 Physical Therapy Visit Comments Patient Comments Pt fluctuates between joking and laughs and agitation, limits mobility attempt to get to BSC, sits 25' EOB with PT and nsg attempted to assist her up to commode Patient Goals I want to go back to [place]. Therapy Pain Assessment Pain When Pain Assessed During Mobility Pain Present Pain Present Pain Reported Location Buttock area Intensity 2 Scale Used Numeric (0 - 10) Description Acute M4 PT-IP Mobility and Gait Start: 08/23/22 10:54 Freq: NEEDED Status: Active Protocol: Document 08/23/22 10:35 MB (Rec: 08/23/22 11:20 MB [id number]) PT-Bed Mobility Assessment Rolling Type of Rolling Roll to Right,Roll to Left Level of Assist Maximal Assistance,2 Person Assistance Supine to Sit Supine to Sit Maximum Assistance,2 Person Assistance,Head of Bed Elevated,Bedrails Sit to Supine Sit to Supine Maximum Assistance,2 Person Assistance,Bedrails Scooting Scooting to Edge of Bed Maximum Assistance Scooting Up and Down in Bed Dependent PT-Transfer Assessment Comments Mobility Comments Set up BSC as pt and nsg state that pt needs to get up to BSC for BM. Pt sits EOB 25' with nsg and PT nearby, right hand on foot of bed and left hand on bed, RW and then BSC after PT moves it, PT holding gait belt and nsg as well, occ posterior lean and occ c/o buttock pain and light- headedness. 2L O2 donned and lines disconnected by nsg to prepare for transfer. Pt fluctuates between joking and being agitated and finally declines the transfer attempt. Bed is very high for pt. PT-Balance Assessment Sitting Balance and Reactions Static Sitting Balance Ability Poor Dynamic Sitting Balance Ability Poor Comments Other Balance Tests/Deviations/Treatment Pt requires varying assistance : to sit EOB: feet are far from the floor given bed height, B UE support and occ assist from nsg and PT to maintain upright sitting: CGA to max A. M5 PT-IP Objective Assessments Start: 08/23/22 10:54 Freq: NEEDED Status: Active Protocol: Document 08/23/22 10:35 MB (Rec: 08/23/22 11:20 MB [id number]) Orientation Orientation/Cognition Level of Alertness Alert Orientation Name,Age,Birthday,Month,Date, Year,Day of Week,Place, Situation Language Function Ability No Deficits Noted Safety Awareness Decreased Safety Awareness Gross Range of Motion Lower Extremity ROM Assessment Bilaterally Impaired Strength Lower Extremity Strength Assessment Bilaterally Impaired Hip Pt does not participate well with MMT, right leg is weaker than left Comments Strength Comments Weakness all LE joints and pt with poor tolerance to MMT. Sensation Assessment Sensation Gross Sensation WNL Light Touch Intact M6 PT-IP Treatment Start: 08/23/22 10:54 Freq: NEEDED Status: Active Protocol: Document 08/23/22 10:35 MB (Rec: 08/23/22 11:20 MB [id number]) Physical Therapy Treatment Other Treatments Other Treatment Performed Extensive encouragement and education to pt for 25' about importance of getting OOB for pain, skin integrity and to try BM on BSC and to prepare for d/c. Pt finally refuses after extensive efforts by nsg and PT. M7 PT-IP Assessment and Plan Start: 08/23/22 10:54 Freq: NEEDED Status: Active Protocol: Document 08/23/22 10:35 MB (Rec: 08/23/22 11:20 MB [id number]) PT Summary Assessment and Plan Potential Rehabilitation Potential Fair Status of Condition at Evaluation Evolving Summary Impairments Pain,Strength,Balance,Bed Mobility,Transfers,Gait, Activity Tolerance Progress Towards Goals Slow Progress due to Pain,Slow Progress due to Activity Tolerance,Slow Progress - Other Assessment Summary Pt is a 61 y/o female presenting with morbid obesity , history of COPD requiring 3L O2 per her report, CHF, sedentary lifestyle and repeat adm for ARF-type presentation . She has been pretty much bed bound this adm and has been intubated twice. Her O2 sats on 2L are stable before attempted mobility today and lines disconnected by nsg in order to allow OOB efforts, which pt finally refuses despite sitting EOB 25' with PT and nsg and receiving encouragement and physical assistance as needed. Pt will require heavy 24 hour care and ongoing therapy at d/c. Goals Bed Mobility Goal Independent Transfer Goal Contact Guard Assistance,Front Wheeled Walker Gait Goal Contact Guard Assistance,Front Wheel Walker Gait Distance 15 Days to Meet Goals 5 Frequency of Treatment Frequency Of Treatment Once a Day Treatment Plan Physical Therapy Treatment Plan Bed Mobility Training,Transfer Training,Gait Training, Therapeutic Exercise,Balance Retraining,Hot or Cold Pack Weight Bearing Status Weight Bearing Status Weight Bear as Tolerated Recommendations To Nursing Amount of Assist Needed 2 Person Assist,Total Assistance,Mechanical Lift Discharge Recommendations PT Discharge Recommendations SNF Rehab Transportation Needs at Discharge Stretcher/Ambulance
--- NOTE | 2022-08-23 11:52 | CM.DPC ---
Addendum entered by Lili Pierre R.N. 08/23/22 15:24: Spoke to Isamar Eduin, she came to see and evaluate patient. She left already, so this DC Hydrator Operator called her. Isamar indicated that it took about 3 people to transfer her from the bed, patient became dizzy. She stated that they do not have the staff to care for her unless she is more mobile, and not dizzy. Did remind her that patient does want to go back to her home, but she indicated that she updated patient that they can't accept her unless she is back to her baseline. Confirmed with O.TYann that she is hoier, Have attempted to update hospitalist, for he placed DC orders, asked his nurse if she can update him as well. August at [facility] called and confirmed that she has submitted auth with [facility]. Addendum entered by Lili Pierre R.N. 08/23/22 14:48: [facility] called back, is supposed to come and evaluate patient. She is working again with Mary, wants to go back to [facility]. Called to verify if they have come as of yet, spoke to Marcellus, stated that Isamar is on her way. Addendum entered by Lili Pierre R.N. 08/23/22 12:11: There is a discharge order in for patient, was going to update hospitalist that [facility] most likely will not accept back if she is a two person assist. Did leave a message with [facility], asked for their admission nurse to call back, have not spoken to any staff for several days, Isamar was the last person to discuss case with. It is noted that patient does want to return to [facility], but needs to be able to transfer, therefor, [facility] will be the only other option. Would like to discuss this with admission nurse at [facility], and potentially schedule a visit from the admission nurse to see patient. Original Note: DCP Cont: P.T. has worked with patient. Had discussed during team rounds that for [facility] to accept patient back, needs to be able to ambulate with walker. P.T. has indicated that patient is a max assist of two, possible mechanical lift. Called August at [facility], let her know that PMoni has worked with her. She is going to submit auth, is out of network with [facility], but no other facilities in network will accept. She thinks that she may have by at the latest. In the meantime, will continue to work with P.T. to see if she improves. P: DCP to continue to follow. Plan is most likely going to be [facility], unless she improves with P.T. August at [facility] is working on auth. Lili Pierre RN/Upholsterer Apprentice
--- NOTE | 2022-08-23 15:05 | OT.IP.EVAL ---
Current Diagnoses Type 2 diabetes mellitus without complications (08/15/22) Essential (primary) hypertension (08/15/22) Acute on chronic systolic (congestive) heart failure (08/15/22) Acute respiratory failure with hypoxia (08/15/22) Acute respiratory failure with hypercapnia (08/15/22) Acute kidney failure, unspecified (08/15/22) Chronic kidney disease, unspecified (08/15/22) Past Medical History (Last Updated 08/22/22 @ 08:53 by Gracie Gerardo MD) Chronic hypoxemic respiratory failure COPD (chronic obstructive pulmonary disease) DM2 (diabetes mellitus, type 2) HTN (hypertension) Obesity PONCE (obstructive sleep apnea) Systolic and diastolic CHF, chronic Thyroiditis Surgical History (Last Reviewed 08/15/22 @ 23:35 by Johnathan Ramirez MD) S/P hernia surgery Occupational Therapy Inpatient Evaluation/Re-Eval M1 PT/OT-IP Prior Functional Status Start: 08/23/22 17:59 Freq: NEEDED Status: Active Protocol: Document 08/23/22 14:25 [facility] (Rec: 08/23/22 18:12 [facility] [id number]) Medical Review Prior Functional Status Medical History Reviewed Yes Diet/Fluid Consistency Regular Communication No communication problems at baseline Mobility and Gait Pt reports that she took a few steps with her boyfriend's rollator at baseline. Her boyfriend in November. She is supposed to get a power w/c. She states there is a w/c there but it is not hers. She lives at [place]. Activities of Daily Living and IADL's Spit bath. Pt does not provide a lot of information about PLOF when asked. Pt states prior able to do all her basci ADl's on her own. Prior Functional Level (Other details) Pt states she has a mechanical bed without rails. She is not descriptive about BR situation when PT asks. She uses 3L O2 at baseline. Social History Household Members other Living Arrangements Assisted Living Number of Floors (Floors) One Floor Number of Stairs To Enter/Railing? None, there is a ramp Home Equipment Four Wheel Walker,Hospital Bed Employment Status Unemployed Additional Social History Comment She likely has accessible BR ability at [facility] M2 OT-IP Current Condition Start: 08/23/22 17:59 Freq: Status: Active Protocol: Document 08/23/22 14:25 [facility] (Rec: 08/23/22 18:12 [facility] [id number]) Occupational Therapy Current Condition Current Condition Evaluation Date 08/23/22 Treatment Diagnosis Acute of chronic hypoxic respiratory failure Diagnosis Onset Date 08/15/22 M3 OT- IP Subjective and Pain Start: 08/23/22 17:59 Freq: Status: Active Protocol: Document 08/23/22 14:25 [facility] (Rec: 08/23/22 18:12 [facility] [id number]) OT- Subjective Occupational Therapy Visit Type Type Initial Evaluation Visit Start Time 14:25 Visit Stop Time 15:05 Total Visit Minutes 40 Occupational Therapy Visit Comments Patient Comments Pt agreed to try to use the BSC. Patient/Caregiver Goals To go back to [facility] [place] OT Pain Assessment Pain When Pain Assessed At Rest Pain Present Pain Present Denied Pain M4 OT- IP ADL's Start: 08/23/22 17:59 Freq: Status: Active Protocol: Document 08/23/22 14:25 [facility] (Rec: 08/23/22 18:12 [facility] [id number]) OT [id number] Comments OT Self-Feeding Comments NOt at meal time. OT ADL-Grooming Comments OT Grooming Comments Not performed OT ADL-Oral Care Comments Oral Care Comments NOt performed OT ADL-Dressing General Eval Lower Body Dressing Ability Total Assistance Areas Needing Assistance Socks OT ADL-Toileting General Evaluation Toileting Ability Total Assistance Areas Needing Assistance Manage Clothing,Perform Perineal Hygiene Comments OT Toileting Comments Pt unable to stand with MAX AX2 with FWW and therefore use of wesley to lift her to the BSC. Wesley back to bed for hygiene needs. OT ADL-Bathing Comments OT Bathing Comments Sponge bath more appropriate at this time. M5 OT- IP IADL's Start: 08/23/22 17:59 Freq: Status: Active Protocol: Document 08/23/22 14:25 [facility] (Rec: 08/23/22 18:12 [facility] [id number]) OT-Instrumental Activities of Daily Living Deficits IADL Deficits Identified Deficits Home Safety Awareness Home Safety Comments Pt realizing that she is much weaker than before and will need assist for all needs at this time. Medication Management Medication Management Caregiver Administers Meal Preparation Meal Preparation Caregiver Provides Assist Head Inspector And Center Marker Head Inspector And Center Marker Caregiver Provides Assist M6 OT- IP Functional Cognition Start: 08/23/22 17:59 Freq: Status: Active Protocol: Document 08/23/22 14:25 [facility] (Rec: 08/23/22 18:12 [facility] [id number]) Cognitive Factors Limiting Selfcare Function Cognitive Ability Level of Alertness Alert Patient Orientation Name,Place Attention Span Ability Capable of Focused Attention, Unable to Sustain Attention Ability to Follow Commands Able to Follow One Step Commands with Increased Time, Able to Follow One Step Commands with Repetition Cognitive Comments Cognitive Assessment Comments Pt needing lots of encouragement to participate as not feeling well but willing to try to use the BSC. OT- Vision and Hearing OT- Hearing Assessment OT- Hearing Assessment WFL OT- Vision Assessment Visual Acuity Glasses For Reading M7 OT- IP Mobility and Balance Start: 08/23/22 17:59 Freq: Status: Active Protocol: Document 08/23/22 14:25 [facility] (Rec: 08/23/22 18:12 [facility] [id number]) OT- Bed Mobility Assessment Supine to Sit Supine to Sit Assist Maximum Assistance,Head of Bed Elevated Sit to Supine Sit to Supine Assist Total Assistance OT-Transfer Assessment Transfers Transfer Ability Total Assistance,2 Person Assistance Technique Transfer Destination Bed,Bedside Commode Transfer Technique Mechanical Lift Comments Mobility Comments Attempted to stand with MAX AX 2 and unable to stand all the way up and having to sit down and use of wesley lift to get to the BSC and back to bed. OT- Balance Assessment Sitting Balance and Reactions Static Sitting Balance Ability Good Dynamic Sitting Balance Ability Fair Standing Balance and Reactions Static Standing Balance Ability Poor Dynamic Standing Balance Ability Poor M8 OT- IP Objective Assessments Start: 08/23/22 17:59 Freq: Status: Active Protocol: Document 08/23/22 14:25 [facility] (Rec: 08/23/22 18:12 [facility] [id number]) OT Gross Range of Motion Upper Extremity Range of Motion Assessment Within Functional Limits OT Strength Comments Strength Comments BUE 4/5 M9 OT- IP Assessment and Plan Start: 08/23/22 17:59 Freq: Status: Active Protocol: Document 08/23/22 14:25 [facility] (Rec: 08/23/22 18:12 [facility] [id number]) OT Summary Assessment and Plan Potential Rehabilitation Potential Good Analytic Complexity at Evaluation Moderate Summary OT Impairments Strength,Balance,Functional Cognition,Functional Mobility, Self-Feeding,Grooming,Dressing ,Toileting,Bathing,Toilet Transfers,Shower Transfers, Activity Tolerance Progress Towards Goals Slow Progress due to Medical Issues,Slow Progress due to Activity Tolerance,Slow Progress due to Cognition Assessment Summary Pt HIGH complexity and main barriers are decreased activityy tolerance, strength, balance and now needign use of wesley lift for transfer and extensive assist for ADl needs. Pt is far from her baseline of using the FWW on her own for transfers and able to do her basic ADl's and will greatly benefit from skilled rehab prior to going home. Pt on 2- 3L O2 and from 86-93%, pt also feeling nausea and SOB. Goals Grooming Goal Independent Dressing Goal Minimal Assistance Toileting Goal Minimal Assistance Bathing Goal Moderate Assistance Toilet Transfer Goal Standby Assistance Shower Transfer Goal Standby Assistance Days to Meet Goals 30 Frequency of Treatment Frequency Of Treatment Once a Day Treatment Plan OT Treatment Plan ADL Training,Functional Cognition Training,Functional Mobility,Patient/Family Education,Discharge Planning Other Treatment Recommendations and Next Transfer to [facility] with MAXA X 2 Treatment Focus with FWW. Discharge Recommendations OT Discharge Recommendations SNF Rehab Transportation Needs at Discharge Wheelchair/Cabulance
[2022-08-23] MEDS: HYDRALAZINE 25 MG TABLET PO (15:22)
[2022-08-23] MEDS: INSULIN LISPRO 100 UNIT/ML 3ML VIAL SUBCUT ×2 (15:22→16:59)
--- NOTE | 2022-08-23 15:43 | ST.IPDYTX ---
Visit Care Team Role Provider Type Simone Rodgers MD Primary Care Provider Non-Staff Specialty: Family Practice Address: [facility], [address] [place] [address], [id number] Email: Samm Bloom MD Other Providers Physician Specialty: Medical Address: Phone: Fax: Email: Karen Hall MD Other Providers Physician Specialty: Medical Address: Phone: Fax: Email: Jim Talamantes MD Other Providers Physician Specialty: Medical Address: [address] [place], [address] Phone: Fax: Email: Ezekiel Tate MD Other Providers Physician Specialty: Internal Medicine Address: Phone: Fax: Email: Romero Faustin MD Other Providers Physician Specialty: Medical Address: Phone: Fax: Email: Gracie Gerardo MD Other Providers Physician Specialty: Anesthesiology Internal Medicine Address: [address] [place], [address] Fax: Email: [email or web address] Other Providers Physician Specialty: Internal Medicine Address: [address] [place], [address] Phone: Fax: Email: [email or web address] Mark Aguilar MD Other Providers Physician Specialty: Internal Medicine Address: Phone: Fax: Email: Gustavo Hall MD Other Providers Physician Specialty: Medical Address: Phone: Fax: Email: Valdemar Pacheco MD Other Providers Physician Specialty: Internal Medicine Address: [address] [place], [address] Phone: Fax: Email: Jan Soriano MD Other Providers Physician Specialty: Medical Address: [address], [address] Phone: Fax: Email: Teofilo Arredondo MD Other Providers Physician Specialty: Medical Address: Phone: Fax: Email: Meghan Oliveira Other Providers Physician Specialty: Medical Address: Phone: Fax: Email: Katharine Ramos MD Other Providers Physician Specialty: Internal Medicine Address: Phone: Fax: Email: Jayne Muhammad DO Emergency Provider Physician Referring Provider Specialty: Emergency Medicine Address: [address], [place], [address] Email: [email or web address] Johnathan Ramirez MD Admit Provider Physician Attending Provider Specialty: Hospitalist Address: [address] [place] [address], [address] Fax: Email: [email or web address] DESIGN ENGINEER Dysphagia Treatment WASTEWATER DESIGN ENGINEER Dysphagia Treatment Start: 08/17/22 15:48 Freq: Status: Active Protocol: Document 08/23/22 15:22 [facility] (Rec: 08/23/22 15:41 [facility] [id number]) Dysphagia Treatment Session Time Visit Start Time 15:00 Visit Stop Time 15:30 Total Visit Minutes 30 Setting Assessment Location Acute Care Visit Type Note Type Treatment Note Next Note Type Next Note Type Treatment Note Patient Information Identification Type Name,ID Wristband Subjective Observations Pt was seen in bed following ot session. Pt refused po trials indicating she wasn't hungry. Pt was significantly more alert and aware that last seen last week. Pt was oriented and able to state place, date and person. Treatment Treatment Activities Reviewed with pt her modified diet secondary to aspiration of regular diet, and pt is edetuous. Pt stated she was aware that when she is discharged, she needs to remain on a modified diet. Reviewed Safe swallow precautions, emphasizing that pt is not to eat or drink while reclined. Pt noted she is aware of the precautions and risk for aspiration if not followed. Assessment Patient Response to Treatment Good Rehab Potential Good Assessment of Improvement Pt cognition and swallowing have both improved significantly. pt appears to be safely swallowing current diet; however, she is in need of instrumental (FEES) assessment. FEES can be completed through mobile FEES unit after discharge from . Diet Recommendations Recommendations Continue Current Diet Liquids Order Thin Diet Order Dysphagia Mechanical Comments minced and moist texture Aspiration Precautions Recommended Precautions Upright at 90 Degrees Additional Precautions Pt resisits upright position, but will comply with explanation Treatment Plan Placement Recommendation after Discharge Prison Facility Appropriate for Continued Therapy Yes Dysphagia Goals 1. Pt's diet will be progressed to least restrictive diet as tolerated based on presence or absence of s/sx dysphagia 2. The pt will safelty tolerate least restrictive diet without overt signs/ symptoms of aspiration to meet her nutrition and hydration needs.
--- NOTE | 2022-08-23 15:52 | P.PN_ITS ---
Subjective Subjective Date Patient Seen: 08/23/22 Time Patient Seen: 08:00 Interval history: She feels much improved. She feels her breathing is back to baseline. She feels weak. She would like to be intubated if respiratory failure ever happened again. Exam Vital Signs (past 8 hours): - 08/23/22 08:14 08/23/22 08:00 08/23/22 08:13 Temperature 98.8 F Pulse Rate 72 73 Respiratory Rate Blood Pressure 128/62 128/62 Pulse Oximetry 96 08/23/22 08:13 08/23/22 09:00 08/23/22 10:00 Temperature 98.8 F 99.0 F 99.0 F Pulse Rate 74 83 86 Respiratory Rate 20 Blood Pressure Pulse Oximetry 96 95 08/23/22 11:00 08/23/22 12:00 08/23/22 13:01 Temperature 98.3 F Pulse Rate 81 84 Respiratory Rate 27 H 35 H Blood Pressure Pulse Oximetry 08/23/22 12:55 08/23/22 12:55 08/23/22 15:22 Temperature Pulse Rate 74 80 Respiratory Rate 16 Blood Pressure 142/66 H 152/83 H Pulse Oximetry 89 L Fraction of Inspired Oxygen 30 SaO2/FiO2 Ratio 323 Oxygen Delivery Method Nasal Cannula Oxygen Flow Rate 2 Narrative Exam Narrative: GEN: no acute distress CV: irregular PULM: clear bilaterally, distant breath sounds EXT: warm and well perfused, markedly less edema NEURO: awake, alert, oriented Objective Labs 08/23/22 04:25 08/23/22 04:25 Labs: Laboratory Results - last 24 hr 08/23/22 08/23/22 04:25 04:25 WBC 13.4 H RBC 3.86 L Hgb 12.3 Hct 38.5 MCV 99.7 MCH 31.9 MCHC 32.0 RDW 16.1 H Plt Count 144 L Neut % (Auto) 84.3 H Lymph % (Auto) 7.8 L [place] % (Auto) 7.3 Eos % (Auto) 0.1 L Baso % (Auto) 0.5 Neut # (Auto) 83926 H Lymph # (Auto) 1000 L [place] # (Auto) 1000 H Eos # (Auto) 0 Baso # (Auto) 100 Sodium 137 Potassium 4.2 Chloride 100 Carbon Dioxide 33 H BUN 52 H Creatinine 2.12 H Estimated GFR 26 L BUN/Creatinine Ratio 24.5 H Glucose 142 H Calcium 8.8 Total Bilirubin 0.9 AST 56 H ALT 395 H Alkaline Phosphatase 53 Total Protein 6.2 L Albumin 3.4 L Globulin 2.8 Albumin/Globulin Ratio 1.2 [facility] Medical History (Updated 08/22/22 @ 08:53 by Gracie Gerardo MD) Chronic hypoxemic respiratory failure COPD (chronic obstructive pulmonary disease) DM2 (diabetes mellitus, type 2) HTN (hypertension) Obesity PONCE (obstructive sleep apnea) Systolic and diastolic CHF, chronic Thyroiditis Surgical History S/P hernia surgery Family History Mother No pertinent past medical history Father No pertinent past medical history Social History household members: other Smoking Status: Former smoker Assessment & Plan Assessment & Plan narrative: 1. Acute on chronic hypoxic/hypercapneic respiratory failure -intubated on admission, then reintubated after brief extubation -she is now stable respiratory on 2L which is home amount -today is completing zosyn and steroids -back on home dose of torsemide -she states she does not eat low salt foods 2. Septic shock -resolved -off pressors -completed antibiotics -secondary to aspiration pneumonia 3. Acute on chronic combined systolic and diastolic congestive heart failure with ejection fraction of 30-35% -echo stable from prior with EF 30-35% -continue home dose torsemide bid -creatinine check daily 4. Probable aspiration pneumonia -speech therapy recommended eating upright -due to body habitus and weakness she eats reclining at facility -speech recommend outpatient FEES -unable to perform modified barium swallow -antibiotics completed 5. Suspected CKD 3 -creatinine has ranged from 1.7-2.4 when hospitalized -suspect baseline is 1.7-2.0 -continue to monitor 6. Acute cystitis, aerococcus, resolved 7. Leg wound -wound care 8. Diabetes mellitus type 2, insulin requiring, uncontrolled with hyperglycemia -steroids stopped -decreased lantus to 22U bid which is her home dose 9. Class 3 obesity -BMI is 50.2, high risk for significant morbidity/mortality. 10. Obstructive sleep apnea -not on cpap at baseline 11. Hypertension home meds resumed 12. Hypothyroidism Continue levothyroxine. 13. COPD with presumed exacerbation -completed steroid 5 day course 14. Transaminitis, possibly secondary to shock liver -lfts much improved -no abdominal symtpoms, no indication for further imaging Dispo: stable for discharge to snf vs facility pending PT eval Time Spent With Patient Time with patient: less than 30 minutes (No active critical care issues) Quality VTE Deep Vein Thrombosis/Pulmonary Embolism Present on Admission: No
--- NOTE | 2022-08-23 16:19 | PC.NURSE ---
Day shift: Pt A&O to self, situation, place, and was aware of where to find the date on the informational board. Yoko d/c'd. Pt declines reposition. This RN educated pt on the importance of repositioning due to skin breakdown, lack of movement contributing to ambulation difficulty, and independence. Pt continues to decline a turn. This RN and PT Meri assisted pt to dangle at bedside to attempt ambulation and standing. Pt stated, I can't do this. Pt resistive to assistance, told this RN and PT, Don't push me, when using the gait belt to prevent pt from leaning too far forward. After roughly 20 mins of attempting to stand, PT and PCT assisted pt back to bed with bogdan lift. A second attempt was made later in shift, resulting in a bogdan lift to the [facility]; pt able to have XL BM. Assisted back to bed by this RN, other RN, PCT, and OT. Pt assisted in cleansing. VSS. Up at 90 degrees to eat per speech instructions. Care ongoing. Will continue to monitor.
[2022-08-23] MEDS: buPROPion SR 150 MG TAB PO (20:47)
[2022-08-23] MEDS: GABAPENTIN 300 MG CAPSULE PO (20:47)
[2022-08-24] VITALS: BP 130/88; PULSE 69; RESP 18; TEMP 36.1; O2SAT 95
[2022-08-24 04:00] VITALS: BP 125/60; PULSE 77; RESP 18; TEMP 36.1; O2SAT 96
[2022-08-24] MEDS: HEPARIN 5,000 UNIT/ML VIAL 7500 UNIT SUBCUT ×2 (04:42→12:00)
[2022-08-24 05:05] LABS: Hematocrit 39.5 % (36-46); Hemoglobin 12.9 g/dL (12.0-16.0); Mean Corpuscular HGB Conc 32.7 % (30-36); Mean Corpuscular Hemoglobin 32.5 PG (26-34); Mean Corpuscular Volume 99.4 fL (80-100); Platelet Count 135 X10^3/uL (150-400); Red Blood Cell Count 3.98 X10^6/uL (4.0-5.2); Red Cell Distribution Width 16.2 % (11.6-14.8); White Blood Cell Count 10.8 X10^3/uL (4.5-11.0)
[2022-08-24 05:21] LABS: BUN Creatinine Ratio 24.9 (6-22); Blood Urea Nitrogen 57 mg/dL (7-17); Calcium 9.1 mg/dL (8.4-10.2); Carbon Dioxide 34 mmol/L (22-32); Chloride 99 mmol/L (98-107); Estimated Glomerular Filt Rate 24 mL/min (>60); Glucose 120 mg/dL (80-110); HEMOLYSIS < 15 (0-50); Potassium 3.8 mmol/L (3.4-5.1); Sodium 139 mmol/L (137-145)
[2022-08-24] MEDS: LEVOTHYROXINE 75 MCG TABLET PO (06:20)
[2022-08-24] MEDS: LEVOTHYROXINE 100 MCG TABLET PO (06:20)
[2022-08-24] MEDS: ALBUTEROL/IPRATROPIUM 3 ML AMPUL INH ×2 (07:39→12:05)
[2022-08-24] MEDS: BUDESONIDE 0.5 MG/2 ML NEB INH (07:39)
[2022-08-24 07:41] VITALS: O2SAT 97
[2022-08-24] MEDS: FENOFIBRATE, MICRONIZED 67 MG CAPSULE 134 MG PO (08:24)
[2022-08-24] MEDS: carvediloL 3.125 MG TABLET PO (08:24)
[2022-08-24] MEDS: FERROUS SULFATE 325 MG TABLET PO (08:24)
[2022-08-24] MEDS: ASPIRIN EC 81 MG TABLET PO (08:24)
[2022-08-24] MEDS: POTASSIUM CHLORIDE 10 MEQ TAB PO (08:25)
[2022-08-24] MEDS: NYSTATIN POWDER 15GM 1 APPLIC TOP (08:25)
[2022-08-24] MEDS: MONTELUKAST 10 MG TABLET PO (08:25)
[2022-08-24] MEDS: TORSEMIDE 10 MG TABLET 20 MG PO (08:25)
[2022-08-24] MEDS: FLUTICASONE 120 SPRAY/16 GM SPRAY.SUSP NASAL (08:25)
[2022-08-24] MEDS: FLUoxetine 20 MG CAPSULE PO (08:25)
[2022-08-24] MEDS: PANTOPRAZOLE 40 MG VIAL IV (08:25)
[2022-08-24] MEDS: INSULIN GLARGINE 100 UNIT/ML 3ML PEN 22 UNIT SUBCUT (08:28)
--- NOTE | 2022-08-24 09:31 | PC.NURSE ---
Patient had a large bowel movement in bed. Alerted staff of need and began process of ambulating to the bedside commode, but BM started before destination reached. Sacrum wound thoroughly cleaned, barrier cream applied, and allevyn and coversite dressings applied.
[2022-08-24 09:39] VITALS: BP 126/76; PULSE 76; RESP 20; TEMP 36.4; O2SAT 97
--- NOTE | 2022-08-24 10:36 | P.DS_ITS ---
History of Present Illness History of Present Illness Chief complaint: SOB Narrative: Ms. Jett is a 61W with PMH COPD on 2L O2, PONCE on cpap, CHFpEF, morbid obesity, DM on insulin, htn, hypothyroid who presents with shortness of breath. She has been feeling worse for the last couple weeks per the ED physician note. She has worsening lower extremity swelling. No cough, or fevers. No abdominal pain, nausea, vomiting. No additional current history is obtainable as she is intubated when I evaluate her. She did present in May, with similar presentation and was treated for pneumonia, copd flare, and chf exacerbation. In the ED workup was done, vitals notable for afebrile, heart rate 70s, respiratory rate 20s, blood pressure 110s/50s, sats 70s on 3L. She was placed on NRB, and then placed on BIPAP. She was noted to have pH 7.25, pco2 78. Repeat showed worsening acidosis with pH 7.18, pco2 89. She had poor mental status and was intubated. Labs reviewed by me and notable for WBC 8.1, hgb 11.2, plts 227. Na 141, k 5.7, BUN 43, creatinine 2.37. Lactate 0.6. BNP 6960. Trop 0.028- >0.027. UA with wbcs, bacteria and leuk esterase. Respiratory panel negative. EKG with sinus rhythm, with no acute changes. Chest xray notable for interstitial and central vascular congestion. CT abdomen showed minimal pe rinephric and peripancdreatic stranding. She was noted by ED staff to possibly have strawberry food particles suctioned from ET tube. She was ordered for antibiotics, steroids, and lasix. She was sedated on fentanyl, versed. She was placed on vent settings tv 350, rr 18, peep 10, fio 2 50%. 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 sarabia Physician Instructions: Evaluate and treat 08/22/22 08:14 Consult to Speech Therapy Evaluate & Treat Comment: Physician Instructions: Evaluate and treat 08/22/22 19:24 Consult to Occupational Therapy Evaluate & Treat Comment: Physician Instructions: Evaluate and treat Consult to Physical Therapy Evaluate & Treat Comment: Physician Instructions: Evaluate and Treat Discharge provider: Johnathan Ramirez MD Summary Hospital Course Discharge Diagnosis: 1. Acute on chronic hypoxemic/hypercarbic respiratory failure 2. Septic shock from aspiration pneumonia 3. Acute on chronic CHFrEF exacerbation 4. CKD stage 3 5. UTI, aerococcus 6. Leg wound 7. Type 2 DM on insulin 8. Morbid obesity 9. PONCE 10. Hypertension 11. Hyperlipidemia 12. Shock liver 13. COPD, with possible exacerbation Hospital Course: Ms. Jett came in to the hospital with respiratory failure and was intubated in the ED. She had notable stomach contents removed after intubation, likely an aspiration event. She was also significantly volume overloaded. Her cause of respiratory failure is most likely both the CHF exacerbation and aspiration pneumonia. She eats in a reclined manner which is likely why she aspirates. Speech recommended eating upright and an outpatient FEES. She was initially on broad spectrum antibiotics and completed a course of zosyn for 10 days and antibiotics were discontinued at discharge. She was also significantly volume overloaded and was diuresed during her hospitalization. On day of discharge she was documented 18.9L net negative. She will be continued on torsemide BID. In addition, she had a UTI that was treated with full course of antibiotics by time of discharge. She had shock liver that resolved by discharge. She is morbidly obese with BMI of 50, an aspiration risk, and has multiple comorbidities and these issues were discussed with her, and she wishes to be a full code. She was notably deconditioned and will be discharged to SNF for PT. She remains on 2L of oxygen which has been her baseline for some time. She should have her volume status monitored closely. She should have a repeat of her creatinine checked within one week. Her baseline creatinine appear to be 1.7-2.2, and her creatinine on discharge was 2.3. Exam Vital Signs (past 8 hours): - 08/24/22 04:00 08/24/22 07:41 08/24/22 09:39 Temperature 97.0 F L 97.5 F L Pulse Rate 77 76 Respiratory Rate 18 20 Blood Pressure 125/60 126/76 Pulse Oximetry 96 97 97 Oxygen Delivery Method Nasal Cannula Oxygen Flow Rate 2 3 2 Fraction of Inspired Oxygen 30 SaO2/FiO2 Ratio 323 Oxygen Delivery Method Nasal Cannula Oxygen Flow Rate 2 Narrative Exam Narrative: GEN: no acute distress CV: irregular PULM: clear bilaterally, distant breath sounds EXT: warm and well perfused, markedly less edema NEURO: awake, alert, oriented Objective Labs 08/24/22 04:45 08/24/22 04:45 Labs: Laboratory Results - last 24 hr 08/24/22 08/24/22 04:45 04:45 WBC 10.8 RBC 3.98 L Hgb 12.9 Hct 39.5 MCV 99.4 MCH 32.5 MCHC 32.7 RDW 16.2 H Plt Count 135 L Sodium 139 Potassium 3.8 Chloride 99 Carbon Dioxide 34 H BUN 57 H Creatinine 2.29 H Estimated GFR 24 L BUN/Creatinine Ratio 24.9 H Glucose 120 H Calcium 9.1 PFSH Medical History (Updated 08/22/22 @ 08:53 by Gracie Gerardo MD) Chronic hypoxemic respiratory failure COPD (chronic obstructive pulmonary disease) DM2 (diabetes mellitus, type 2) HTN (hypertension) Obesity PONCE (obstructive sleep apnea) Systolic and diastolic CHF, chronic Thyroiditis Surgical History S/P hernia surgery Family History Mother No pertinent past medical history Father No pertinent past medical history Social History household members: other Smoking Status: Former smoker Discharge Plan Discharge Plan Patient Disposition: SNF Discharge orders & Medications Prescriptions: Continued albuterol sulfate 90 mcg/actuation HFA aerosol inhaler 4 puff INHALATION Q4H PRN (Reason: Shortness Of Breath Or Wheezing) levothyroxine 175 mcg tablet 175 mcg PO DAILY potassium chloride 10 mEq tablet extended release 10 meq PO DAILY torsemide 10 mg tablet 20 mg PO BID bupropion HCl 150 mg tablet sustained-release 12 hr 150 mg PO BEDTIME sennosides [senna] 8.6 mg tablet 17.2 mg PO BEDTIME acetaminophen [Tylenol] 325 mg Tablet 650 mg PO TID trazodone 50 mg tablet 50 mg PO BEDTIME aspirin 81 mg Tablet,Delayed Release (Dr/Ec) 81 mg PO DAILY carvedilol 3.125 mg tablet 3.125 mg PO BID cyanocobalamin (vitamin B-12) 500 mcg Tablet 500 mcg PO DAILY meclizine 25 mg tablet 25 mg PO Q8HR PRN (Reason: Dizziness) ferrous sulfate 325 mg (65 mg iron) Tablet 325 mg PO DAILY fluoxetine 20 mg Tablet 20 mg PO DAILY lidocaine 5 % adhesive patch,medicated 1 patch topical DAILY Rx Instructions: to right bicep gabapentin 300 mg Capsule 300 mg PO BEDTIME montelukast 10 mg Tablet 10 mg PO DAILY nystatin 100,000 unit/gram Powder 1 applic TOPICAL BID PRN (Reason: Rash) insulin lispro [Humalog U-100 Insulin] 100 unit/mL Solution 4 unit SUBCUT TIDWM ondansetron 4 mg Tablet,Disintegrating 4 mg PO Q8H PRN (Reason: Nausea) fluticasone propionate 50 mcg/actuation [place],Suspension 2 spray INTRANASAL DAILY Rx Instructions: administer into each nostril loratadine 10 mg Tablet 10 mg PO DAILY rosuvastatin 40 mg Tablet 40 mg PO DAILY Spiriva with HandiHaler 18 mcg Capsule, W/Inhalation Device 1 cap INHALATION DAILY Rx Instructions: puncture 1 cap using device; one dose = 2 inhalations fenofibrate 160 mg Tablet 160 mg PO DAILY budesonide-formoterol 160-4.5 mcg/actuation Hfa Aerosol Inhaler 2 puff INHALATION Q4H PRN (Reason: Wheezing) insulin glargine 100 unit/mL (3 mL) Insulin Pen 22 unit SUBCUT BID magnesium oxide 200 mg magnesium Tablet 200 mg PO BID Follow up/Referrals: Simone Rodgers MD [Primary Care Provider] - Discharge Health Status Multidrug resistant organism: No MDRO Diet/Activity/Treatments Diet: Carb-consistent/Diabetic and Low-sodium Diet comment: dysphagia/mechanical, sit upright while eating Visit Report/Discharge Packet Stand Alone Forms: Patient Portal/API Discharge Data Primary Care Provider: Simone Rodgers Quality VTE Deep Vein Thrombosis/Pulmonary Embolism Present on Admission: No
[2022-08-24 10:43] LABS: COVID19 -Nasal RAPID Negative (Negative)
--- NOTE | 2022-08-24 11:03 | CM.DPC ---
DCP Discharge SNF Per MD, pt remains medically stable to d/c to SNF today and completed d/c pwk and placed orders and signed med list. SW called [facility] and confirmed they received insurance auth for SNF and can accept today with transport at 1230. SW updated RN and provided report number to call and RN kindly getting updated COVID swab which is negative. ADY met bedside with pt and explained role and discussed insurance auth approval for SNF rehab at [facility] facility [facility] and pt agreeable with d/c to SNF before safe return back to [facility] Pt plans to contact her Dtr who is going to come visit pt and bring some of her belongings from [facility] around 1630. AIBLIO Jaeger kindly updated shake cutter and HEALTH INFORMATION DIRECTOR and faxed d/c packet to [facility] to review. Plan: Patient to d/c to [facility] rehab today via facility van at 1230 before safe return back to [facility] [place]
--- NOTE | 2022-08-24 11:27 | OT.IP.TRT ---
Current Diagnoses Type 2 diabetes mellitus without complications (08/15/22) Essential (primary) hypertension (08/15/22) Acute on chronic systolic (congestive) heart failure (08/15/22) Acute respiratory failure with hypoxia (08/15/22) Acute respiratory failure with hypercapnia (08/15/22) Acute kidney failure, unspecified (08/15/22) Chronic kidney disease, unspecified (08/15/22) Occupational Therapy Treatment Note M2 OT-IP Current Condition Start: 08/23/22 17:59 Freq: Status: Active Protocol: Document 08/23/22 14:25 [facility] (Rec: 08/23/22 18:12 [facility] [id number]) Occupational Therapy Current Condition Current Condition Evaluation Date 08/23/22 Treatment Diagnosis Acute of chronic hypoxic respiratory failure Diagnosis Onset Date 08/15/22 M3 OT- IP Subjective and Pain Start: 08/23/22 17:59 Freq: Status: Active Protocol: Document 08/24/22 11:08 [facility] (Rec: 08/24/22 12:23 [facility] [id number]) OT- Subjective Occupational Therapy Visit Type Type Treatment Note Visit Start Time 11:08 Visit Stop Time 11:27 Total Visit Minutes 19 Occupational Therapy Visit Comments Patient Comments Pt wanting to get to the [facility]. Patient/Caregiver Goals TO get better and be able to care for herself and get back to [place]. OT Pain Assessment Pain When Pain Assessed At Rest Pain Present Pain Present Pain Reported M4 OT- IP ADL's Start: 08/23/22 17:59 Freq: Status: Active Protocol: Document 08/24/22 11:08 [facility] (Rec: 08/24/22 12:23 [facility] [id number]) OT [id number] Comments OT Self-Feeding Comments NOt at meal time. OT ADL-Grooming Comments OT Grooming Comments Not performed OT ADL-Oral Care Comments Oral Care Comments NOt performed OT ADL-Dressing General Eval Lower Body Dressing Ability Total Assistance Areas Needing Assistance Underpants/Brief,Socks OT ADL-Toileting General Evaluation Toileting Ability Total Assistance Areas Needing Assistance Manage Clothing,Perform Perineal Hygiene Comments OT Toileting Comments Pt not able to some to stand and needing to use bogdan to get back to the bed as not able to get to the [facility] in time and dependent for all hygiene needs at this time. OT ADL-Bathing Comments OT Bathing Comments Sponge bath more appropriate at this time. M5 OT- IP IADL's Start: 08/23/22 17:59 Freq: Status: Active Protocol: Document 08/23/22 14:25 [facility] (Rec: 08/23/22 18:12 [facility] [id number]) OT-Instrumental Activities of Daily Living Deficits IADL Deficits Identified Deficits Home Safety Awareness Home Safety Comments Pt realizing that she is much weaker than before and will need assist for all needs at this time. Medication Management Medication Management Caregiver Administers Meal Preparation Meal Preparation Caregiver Provides Assist Manager Card Manager Card Caregiver Provides Assist M6 OT- IP Functional Cognition Start: 08/23/22 17:59 Freq: Status: Active Protocol: Document 08/24/22 11:08 [facility] (Rec: 08/24/22 12:23 [facility] [id number]) Cognitive Factors Limiting Selfcare Function Cognitive Comments Cognitive Assessment Comments Pt much more alert and actively participating during OT session. M7 OT- IP Mobility and Balance Start: 08/23/22 17:59 Freq: Status: Active Protocol: Document 08/24/22 11:08 [facility] (Rec: 08/24/22 12:23 [facility] [id number]) OT- Bed Mobility Assessment Supine to Sit Supine to Sit Assist Moderate Assistance,Maximum Assistance,Head of Bed Elevated Sit to Supine Sit to Supine Assist Total Assistance OT-Transfer Assessment Comments Mobility Comments Pt MOD/MAXA to get to the edge of the bed, MAX A to scoot to the edge of the bed. MAX AX 2 to stand to FWW and pt unable to stand all the way up and then needing use of bogdan to reposition back in bed for hygiene needs. Pt's O2 on 2L at 99%. OT- Balance Assessment Sitting Balance and Reactions Static Sitting Balance Ability Good Dynamic Sitting Balance Ability Fair Standing Balance and Reactions Static Standing Balance Ability Poor Dynamic Standing Balance Ability Poor M8 OT- IP Objective Assessments Start: 08/23/22 17:59 Freq: Status: Active Protocol: Document 08/23/22 14:25 [facility] (Rec: 08/23/22 18:12 [facility] [id number]) OT Gross Range of Motion Upper Extremity Range of Motion Assessment Within Functional Limits OT Strength Comments Strength Comments BUE 4/5 M9 OT- IP Assessment and Plan Start: 08/23/22 17:59 Freq: Status: Active Protocol: Document 08/24/22 11:08 [facility] (Rec: 08/24/22 12:23 [facility] [id number]) OT Summary Assessment and Plan Potential Rehabilitation Potential Good Analytic Complexity at Evaluation Moderate Summary OT Impairments Strength,Balance,Functional Cognition,Functional Mobility, Self-Feeding,Grooming,Dressing ,Toileting,Bathing,Toilet Transfers,Shower Transfers, Activity Tolerance Progress Towards Goals Slow Progress due to Pain,Slow Progress due to Activity Tolerance Assessment Summary Pt able to assist more to get to the edge of the bed and O2 reading on 2L 97%. Pt not able to come to stand after couple attempted and then opted for bogdan lift back to bed as pt needing to be cleaned up. Pt will greatly benefit from skilled rehab at this time and motivated to get better so able to go back to [facility]. Goals Grooming Goal Independent Dressing Goal Minimal Assistance Toileting Goal Minimal Assistance Bathing Goal Moderate Assistance Toilet Transfer Goal Standby Assistance Shower Transfer Goal Standby Assistance Days to Meet Goals 30 Frequency of Treatment Frequency Of Treatment Once a Day Treatment Plan OT Treatment Plan ADL Training,Functional Cognition Training,Functional Mobility,Patient/Family Education,Discharge Planning Other Treatment Recommendations and Next [facility] with MAXA X 2 Treatment Focus with FWW. Discharge Recommendations OT Discharge Recommendations SNF Rehab Transportation Needs at Discharge Wheelchair/Cabulance
[2022-08-24 12:05] VITALS: PULSE 65; RESP 20; O2SAT 94
[2022-08-24] MEDS: INSULIN LISPRO 100 UNIT/ML 3ML VIAL SUBCUT (12:14)
== END 2022-08-24 14:38 | DRG 208 ==
LOC: ED 19:16 → AC 21:59 → ICU 23:12
PROVIDERS: Emergency Medicine; Family Medicine; Internal Medicine; Internal Medicine Critical Care Medicine; Admitting Provider Internal Medicine; Emergency Provider Emergency Medicine; PCP Family Medicine; Referring Provider Emergency Medicine; Visit Provider Internal Medicine
DX: J69.0 Pneumonitis due to inhalation of food and vomit (principal); J96.21 Acute and chronic respiratory failure with hypoxia; A41.9 Sepsis, unspecified organism; R65.21 Severe sepsis with septic shock; G93.41 Metabolic encephalopathy; K72.00 Acute and subacute hepatic failure without coma; J96.22 Acute and chronic respiratory failure with hypercapnia; I50.23 Acute on chronic systolic (congestive) heart failure; N17.9 Acute kidney failure, unspecified; N30.00 Acute cystitis without hematuria; J44.1 Chronic obstructive pulmonary disease with (acute) exacerbation; I13.0 Hypertensive heart and chronic kidney disease with heart failure and stage 1 through stage 4 chronic kidney disease, or unspecified chronic kidney disease; Z68.43 Body mass index [BMI] 50.0-59.9, adult; E87.5 Hyperkalemia; E66.01 Morbid (severe) obesity due to excess calories; E03.9 Hypothyroidism, unspecified; G47.33 Obstructive sleep apnea (adult) (pediatric); S81.802A Unspecified open wound, left lower leg, initial encounter; X58.XXXA Exposure to other specified factors, initial encounter; R00.1 Bradycardia, unspecified; B96.89 Other specified bacterial agents as the cause of diseases classified elsewhere; E11.65 Type 2 diabetes mellitus with hyperglycemia; R94.31 Abnormal electrocardiogram [ECG] [EKG]; E11.22 Type 2 diabetes mellitus with diabetic chronic kidney disease; N18.30 Chronic kidney disease, stage 3 unspecified; Z87.891 Personal history of nicotine dependence; Z79.4 Long term (current) use of insulin; Z99.81 Dependence on supplemental oxygen; Z20.822 Contact with and (suspected) exposure to COVID-19
CPT/HCPCS: 36415; 36569; 36592; 36600; 71045; 74176; 76705; 80048; 80053; 80076; 81001; 82550; 82805; 82962; 83605; 83690; 83735; 83880; 84132; 84145; 84443; 84484; 85007; 85025; 85027; 85610; 85730; 86704; 86706; 86803; 87040; 87070; 87077; 87086; 87147; 87186; 87205; 87340; 87633; 87635; 87797; 92526; 92610; 93005; 93010; 93307; 93976; 94002; 94003; 94640; 94660; 94799; 96365; 96368; 96375; 97161; 97167; 97530; 99285; 99291; 99292; C9803; C9113; J0330; J0696; J1644; J1815; J1940; J2250; J2405; J2543; J2704; J2920; J2930; J3010; J7613; Q9957

== ENCOUNTER 2022-09-18 18:17 | Observation (INO) | payer OTHER, MEDICAID, SELFPAY ==
[2022-05-26 19:34] VITALS: RESP 0
[2022-08-15 22:01] VITALS: BMI 50.2
[2022-08-21 08:18] VITALS: PULSE 56; RESP 16; O2SAT 97
[2022-09-18] VITALS (20 sets, daily range): BP systolic 87–134; BP diastolic 49–80; PULSE 101–106; RESP 20–36; TEMP 36.9; O2SAT 92–96
--- NOTE | 2022-09-18 18:23 | DI.RAD.S_ITS ---
PROCEDURE: XR CHEST 1V INDICATIONS: sob TECHNIQUE: One view of the chest was acquired. COMPARISON: [facility], CR, XR CHEST 1V, 08/19/2022, 8:39. FINDINGS: Surgical changes and devices: Nasogastric tube and endotracheal tube have been removed. Lungs and pleura: Bibasilar infiltrates. Left pleural effusion. Mediastinum: Mediastinal contours appear normal. Heart size is normal. Bones and chest wall: No suspicious bony lesions. Overlying soft tissues appear unremarkable. IMPRESSION: 1. Bibasilar infiltrates and left pleural effusion. 2. Interval removal of endotracheal tube. Dictated by: Jarett Tse M.D. on 09/18/2022 at 18:03 Approved by: Jarett Tse M.D. on 09/18/2022 at 18:04
[2022-09-18] MEDS: ALBUTEROL/IPRATROPIUM 3 ML AMPUL INH (18:38)
--- NOTE | 2022-09-18 19:52 | PC.NURSE ---
Three attempts to start IV and obtain blood specimens without success. Contacted another RN who was also not successful. Two RNs attempted ultrasound start.
--- NOTE | 2022-09-18 20:31 | ED.SOB ---
HPI - SOB/Dyspnea General Chief Complaint: Shortness of Breath/Dyspnea Stated Complaint: increased O2 requirement Time Seen by Provider: 09/18/22 18:23 Source: patient and EMS Mode of arrival: EMS History of Present Illness HPI Narrative: Patient is a 61-year-old female morbid obesity ED on 2 L nasal cannula diabetes type 2 presenting with increasing need of oxygen up to 4 L. She resides at a long-term assisted care facility. She was admitted to the hospital August 15 through August 24. She was intubated for respiratory failure there was likely secondary to an aspiration event she was significantly volume overloaded at time with an aspiration pneumonia. She was discharged home on torsemide b.i.d.. Today she presents with increasing need of oxygen. However she is extremely difficult to get any history from. She is unsure why she is here. She is maybe having some increased shortness of breath she was given a DuoNeb prior evaluation she seems to be better and back at 2 L. Related Data Home Medications Medication Instructions Recorded Confirmed acetaminophen 325 mg tablet 650 mg PO TID 05/25/22 08/15/22 (Tylenol) aspirin 81 mg tablet,delayed 81 mg PO DAILY 05/25/22 08/15/22 release budesonide-formoterol HFA 160 2 puff inhalation Q4H PRN Wheezing 05/25/22 08/15/22 mcg-4.5 mcg/actuation aerosol inhaler bupropion HCl 150 mg tablet,12 hr 150 mg PO BEDTIME 05/25/22 08/15/22 sustained-release carvedilol 3.125 mg tablet 3.125 mg PO BID 05/25/22 08/15/22 cyanocobalamin (vitamin B-12) 500 500 mcg PO DAILY 05/25/22 08/15/22 mcg tablet fenofibrate 160 mg tablet 160 mg PO DAILY 05/25/22 08/15/22 ferrous sulfate 325 mg (65 mg 325 mg PO DAILY 05/25/22 08/15/22 iron) tablet fluoxetine 20 mg tablet 20 mg PO DAILY 05/25/22 08/15/22 fluticasone propionate 50 2 spray intranasal DAILY 05/25/22 08/15/22 mcg/actuation nasal spray,suspension gabapentin 300 mg capsule 300 mg PO BEDTIME 05/25/22 08/15/22 insulin glargine 100 unit/mL (3 22 unit SUBCUT BID 05/25/22 08/16/22 mL) subcutaneous pen insulin lispro 100 unit/mL 4 unit SUBCUT TIDWM 05/25/22 08/16/22 subcutaneous solution (Humalog U-100 Insulin) lidocaine 5 % topical patch 1 patch topical DAILY 05/25/22 08/15/22 loratadine 10 mg tablet 10 mg PO DAILY 05/25/22 08/15/22 magnesium oxide 200 mg PO BID 05/25/22 08/15/22 meclizine 25 mg tablet 25 mg PO Q8HR PRN Dizziness 05/25/22 08/15/22 montelukast 10 mg tablet 10 mg PO DAILY 05/25/22 08/15/22 nystatin 100,000 unit/gram topical 1 applic topical BID PRN Rash 05/25/22 08/16/22 powder ondansetron 4 mg disintegrating 4 mg PO Q8H PRN Nausea 05/25/22 08/15/22 tablet rosuvastatin 40 mg tablet 40 mg PO DAILY 05/25/22 08/15/22 sennosides 8.6 mg tablet (senna) 17.2 mg PO BEDTIME 05/25/22 08/15/22 tiotropium bromide 18 mcg capsule 1 cap inhalation DAILY 05/25/22 08/15/22 with inhalation device (Spiriva with HandiHaler) trazodone 50 mg tablet 50 mg PO BEDTIME 05/25/22 08/15/22 albuterol sulfate 90 mcg/actuation 4 puff inhalation Q4H PRN 08/15/22 08/15/22 aerosol inhaler Shortness Of Breath Or Wheezing levothyroxine 175 mcg tablet 175 mcg PO DAILY 08/15/22 08/15/22 potassium chloride 10 mEq 10 meq PO DAILY 08/15/22 08/15/22 tablet,extended release torsemide 10 mg tablet 20 mg PO BID 08/15/22 08/16/22 Allergies Allergy/AdvReac Type Severity Reaction Status Date / Time No Known Drug Allergies Allergy Verified 05/25/22 12:43 Review of Systems Review of Systems ROS Unobtainable: All systems reviewed & are unremarkable except as noted in HPI and below Patient History Medical History Chronic hypoxemic respiratory failure COPD (chronic obstructive pulmonary disease) DM2 (diabetes mellitus, type 2) HTN (hypertension) Obesity PONCE (obstructive sleep apnea) Systolic and diastolic CHF, chronic Thyroiditis Surgical History S/P hernia surgery Family History Mother No pertinent past medical history Father No pertinent past medical history Social History household members: children and other Smoking Status: Former smoker Smoking Status: Former smoker alcohol intake frequency: other Substance Use Type: does not use Exam Initial Vital Signs Initial Vital Signs: Vital Signs Pulse Rate 106 H 09/18/22 18:25 Pulse Oximetry 94 09/18/22 18:25 Oxygen Delivery Method Nasal Cannula 09/18/22 18:25 Oxygen Flow Rate 4 09/18/22 18:25 GENERAL: Alert morbidly obese 61-year-old female and in no acute distress. HEENT: Head atraumatic,EOMI, pupils reactive, face symmetric, moist mucous membranes CARDIOVASCULAR: Regular rate and rhythm without murmurs, rubs or gallops. RESPIRATORY: Breath sounds equal bilaterally, no wheezes rales or rhonchi. ABDOMEN: Soft, nontender. Normoactive bowel sounds all 4 quadrants. No guarding or rebound. EXTREMITIES: Normal range of motion, no clubbing or edema. Neurovascularly intact NEUROLOGICAL: Alert and oriented x3 SKIN: Warm, dry, no laceration, no petechiae, no rashes or lesions. Course Orders Ordered: ED Orders 09/18/22 19:57 BNP [NT-proBNP (BNP-Adult 18+)] Stat CBC Auto Diff [Complete Blood Count AUTO DIFF] Stat CMP [Comprehensive Metabolic Panel] Stat Lactate (Lactic Acid) Stat Lipase Stat Troponin & CK Cardiac Panel Stat 09/18/22 20:47 Blood Culture Stat 09/18/22 22:45 Trop I [Troponin I] Stat Acetaminophen (Acetaminophen 325 Mg Tablet) 650 mg PO Q6H PRN PRN Reason: Fever/Mild Pain (1-10 Al Hydrox/Mg Hydrox/Simethicone (Mag Hydrox/Alum/Simeth 30 Ml Udc) 30 ml PO Q6HR PRN PRN Reason: Dyspepsia Albuterol/Ipratropium (Albuterol/Ipratropium 3 Ml Ampul) 3 ml INH [id number] [facility] Atorvastatin Calcium (Atorvastatin 20 Mg Tablet) 80 mg PO BEDTIME [facility] Bupropion HCl (Bupropion Sr 150 Mg Tab) 150 mg PO BEDTIME [facility] Calcium Carbonate (Calcium Carbonate 500 Mg Tab) 1,000 mg PO Q4HR PRN PRN Reason: Dyspepsia Carvedilol (Carvedilol 3.125 Mg Tablet) 3.125 mg PO BID [facility] Dextrose (Dextrose 50 % In Water 25 Gm/50 Ml Syringe) 25 gm IV PRN PRN PRN Reason: Hypoglycemia Enoxaparin Sodium (Enoxaparin 30 Mg/0.3 Ml Syringe) 30 mg SUBCUT DAILY [facility] Fenofibrate (Fenofibrate, Micronized 67 Mg Capsule) 201 mg PO DAILY [facility] Fluoxetine HCl (Fluoxetine 20 Mg Capsule) 20 mg PO DAILY [facility] Furosemide (Furosemide 20 Mg/2 Ml Vial) 20 mg IV BID [facility] Gabapentin (Gabapentin 300 Mg Capsule) 300 mg PO BEDTIME [facility] Sodium Chloride (Normal Saline 0.9%) 1,000 mls @ 60 mls/hr IV CONT [facility] Last Admin: 09/19/22 01:10 Dose: 60 mls/hr Documented By: Insulin Glargine (Insulin Glargine 100 Unit/Ml 3ml Pen) 22 unit SUBCUT BID [facility] Insulin Human Lispro (Insulin Lispro 100 Unit/Ml 3ml Vial) 0 unit SUBCUT ACHS [facility]; Protocol Ipratropium [place] (Ipratropium 0.5 Mg/2.5 Ml Neb) 0.5 mg INH Q2HR PRN PRN Reason: sob, wheezing Levothyroxine Sodium (Levothyroxine 100 Mcg Tablet) 100 mcg PO 0600 [facility] Levothyroxine Sodium (Levothyroxine 75 Mcg Tablet) 75 mcg PO 0600 [facility] Naloxone HCl (Naloxone 0.4 Mg/Ml Vial) 0.2 mg IV Q2MIN PRN PRN Reason: Opiate Reversal Ondansetron HCl (Ondansetron 4 Mg Odt) 4 mg PO Q8HR PRN PRN Reason: Nausea And Vomiting Prednisone (Prednisone 20 Mg Tablet) 50 mg PO DAILY [facility] Stop: 09/26/22 08:59 Trazodone HCl (Trazodone 50 Mg Tablet) 50 mg PO BEDTIME [facility] Discontinued Medications Albuterol/Ipratropium (Albuterol/Ipratropium 3 Ml Ampul) 3 ml INH NOW ONE Stop: 09/18/22 18:24 Last Admin: 09/18/22 18:38 Dose: 3 ml Documented By: JHavenF Furosemide 60 mg/ Sodium (Chloride) 56 mls @ 112 mls/hr IV NOW ONE Stop: 09/18/22 21:05 Last Infusion: 09/18/22 21:50 Dose: 0 mls/hr Documented By: Admin: 09/18/22 21:20 Dose: 112 mls/hr Documented By: Non-Formulary Medication (Fenofibrate) 160 mg PO DAILY JAY JAY Non-Formulary Medication (Fluoxetine) 20 mg PO DAILY JAY JAY Non-Formulary Medication (Levothyroxine) 175 mcg PO DAILY [facility]AY JAY Non-Formulary Medication (Rosuvastatin) 40 mg PO DAILY JAY JAY Non-Formulary Medication (Tiotropium [place] [Spiriva With Handihaler]) 1 cap INHALATION DAILY [facility] Vital Signs Vital signs: Vital Signs - 8 hr 09/18/22 20:00 09/18/22 20:00 09/18/22 20:15 Pulse Rate 104 H 105 H Respiratory Rate 22 Blood Pressure 120/68 Pulse Oximetry 96 96 Oxygen Delivery Method Nasal Cannula Oxygen Flow Rate 4 09/18/22 20:15 09/18/22 20:30 09/18/22 20:30 Pulse Rate 104 H Respiratory Rate 31 H Blood Pressure 108/68 118/80 Pulse Oximetry 96 Oxygen Delivery Method Nasal Cannula Oxygen Flow Rate 4 09/18/22 20:45 09/18/22 20:45 09/18/22 21:00 Pulse Rate 105 H Respiratory Rate Blood Pressure 108/73 106/70 Pulse Oximetry 93 Oxygen Delivery Method Oxygen Flow Rate 09/18/22 21:00 09/18/22 21:30 09/18/22 21:41 Pulse Rate 104 H 102 H 103 H Respiratory Rate 22 36 H 33 H Blood Pressure 104/59 L Pulse Oximetry 93 93 92 Oxygen Delivery Method Nasal Cannula Nasal Cannula Oxygen Flow Rate 2 2 2 09/18/22 21:41 09/18/22 22:00 09/18/22 22:00 Pulse Rate 104 H Respiratory Rate 34 H Blood Pressure 104/59 L 107/55 L Pulse Oximetry 94 Oxygen Delivery Method Nasal Cannula Oxygen Flow Rate 2 09/18/22 22:30 09/18/22 22:30 09/18/22 23:00 Pulse Rate 102 H Respiratory Rate 31 H Blood Pressure 96/53 L 89/49 L Pulse Oximetry 92 Oxygen Delivery Method Nasal Cannula Oxygen Flow Rate 2 09/18/22 23:00 09/18/22 23:02 09/18/22 23:02 Pulse Rate 102 H 102 H Respiratory Rate 34 H 32 H Blood Pressure 90/54 L Pulse Oximetry 93 93 Oxygen Delivery Method Nasal Cannula Oxygen Flow Rate 2 09/18/22 23:30 09/18/22 23:30 Pulse Rate 101 H Respiratory Rate 32 H Blood Pressure 87/54 L Pulse Oximetry 92 Oxygen Delivery Method Nasal Cannula Oxygen Flow Rate 2 MDM - SOB/Dyspnea Lab Data 09/18/22 19:57 09/18/22 19:57 Labs: Lab Results 09/18/22 09/18/22 09/18/22 Range/Units 19:57 19:57 19:57 WBC 10.2 (4.5-11.0) X10^3/uL RBC 3.91 L (4.0-5.2) X10^6/uL Hgb 12.6 (12.0-16.0) g/dL Hct 38.7 (36-46) % MCV 99.0 (80-100) fL MCH 32.2 (26-34) PG MCHC 32.5 (30-36) % RDW 16.5 H (11.6-14.8) % Plt Count 212 (150-400) X10^3/uL Neut % (Auto) 76.2 H (50-75) % Lymph % (Auto) 11.3 L (25-40) % [place] % (Auto) 12.0 (3-14) % Eos % (Auto) 0.1 L (2-4) % Baso % (Auto) 0.4 (0-2) % Neut # (Auto) 7800 H (4392-0702) /uL Lymph # (Auto) 1100 (6666-8922) /uL [place] # (Auto) 1200 H (0-900) /uL Eos # (Auto) 0 (0-450) /uL Baso # (Auto) 0 (0-100) /uL Sodium 139 (137-145) mmol/L Potassium 4.2 (3.4-5.1) mmol/L Chloride 99 (98-107) mmol/L Carbon Dioxide 35 H (22-32) mmol/L BUN 41 H (7-17) mg/dL Creatinine 2.22 H (0.52-1.04) mg/dL Estimated GFR 25 L (>60) mL/min BUN/Creatinine Ratio 18.5 (6-22) Glucose 118 H (80-110) mg/dL Lactate 0.7 (0.7-2.1) mmol/L Calcium 10.1 (8.4-10.2) mg/dL Total Bilirubin 0.7 (0.2-1.3) mg/dL AST 23 (14-36) IU/L ALT 17 (<35) IU/L Alkaline Phosphatase 62 (38-126) U/L Total Creatine Kinase 39 (30-135) U/L Troponin I 0.120 H (0.01-0.034) ng/mL NT-Pro-B Natriuret Pep 29586 H (<125) pg/mL Total Protein 7.3 (6.3-8.2) g/dL Albumin 3.7 (3.5-5.0) g/dL Globulin 3.6 (1.7-4.1) g/dL Albumin/Globulin Ratio 1.0 (1.0-2.8) Lipase (23-300) U/L Procalcitonin (<0.5) ng/mL 09/18/22 09/18/22 09/18/22 Range/Units 19:57 22:45 22:45 WBC (4.5-11.0) X10^3/uL RBC (4.0-5.2) X10^6/uL Hgb (12.0-16.0) g/dL Hct (36-46) % MCV (80-100) fL MCH (26-34) PG MCHC (30-36) % RDW (11.6-14.8) % Plt Count (150-400) X10^3/uL Neut % (Auto) (50-75) % Lymph % (Auto) (25-40) % [place] % (Auto) (3-14) % Eos % (Auto) (2-4) % Baso % (Auto) (0-2) % Neut # (Auto) (3093-0127) /uL Lymph # (Auto) (5001-1723) /uL [place] # (Auto) (0-900) /uL Eos # (Auto) (0-450) /uL Baso # (Auto) (0-100) /uL Sodium (137-145) mmol/L Potassium (3.4-5.1) mmol/L Chloride (98-107) mmol/L Carbon Dioxide (22-32) mmol/L BUN (7-17) mg/dL Creatinine (0.52-1.04) mg/dL Estimated GFR (>60) mL/min BUN/Creatinine Ratio (6-22) Glucose (80-110) mg/dL Lactate (0.7-2.1) mmol/L Calcium (8.4-10.2) mg/dL Total Bilirubin (0.2-1.3) mg/dL AST (14-36) IU/L ALT (<35) IU/L Alkaline Phosphatase (38-126) U/L Total Creatine Kinase (30-135) U/L Troponin I 0.131 H* (0.01-0.034) ng/mL NT-Pro-B Natriuret Pep (<125) pg/mL Total Protein (6.3-8.2) g/dL Albumin (3.5-5.0) g/dL Globulin (1.7-4.1) g/dL Albumin/Globulin Ratio (1.0-2.8) Lipase 166 (23-300) U/L Procalcitonin 1.85 H (<0.5) ng/mL Imaging Data Chest x-ray: Radiologist's Impression: PROCEDURE:? XR CHEST 1V ? INDICATIONS:? sob ? TECHNIQUE:? One view of the chest was acquired.? ? COMPARISON:? [facility], , XR CHEST 1V, 08/19/2022, 8:39. ? FINDINGS:? ? Surgical changes and devices:? Nasogastric tube and endotracheal tube have been removed. ? Lungs and pleura:? Bibasilar infiltrates.? Left pleural effusion. ? Mediastinum:? Mediastinal contours appear normal.? Heart size is normal.? ? Bones and chest wall:? No suspicious bony lesions.? Overlying soft tissues appear unremarkable.? ? IMPRESSION:? 1. Bibasilar infiltrates and left pleural effusion. 2. Interval removal of endotracheal tube.? ? ? Dictated by: Jarett Tse M.D. on 09/18/2022 at 18:03? ECG Data Interpretation: Sinus tachycardia rate 107 MO interval 166 QRS 124 QTC 491 noST changes or ischemia MDM Narrative Medical decision making narrative: Patient 61-year-old female most history is obtained from chart and last visit. She would complicated stay. Presents today with increasing need for oxygen, up to 4 L. However BNP is significantly elevated at 15,800 with elevation and troponin 0.12 and 0.13 thought to be demand ischemia. X-ray shows bilateral infiltrates in the left side pleural effusion which does not look significantly worse than prior. Kidney function is at baseline she got chronic kidney disease creatinine is at 2.2 today previously was 2.2. No significant electrolyte abnormality. No evidence of DKA. I suspect patient has acute on chronic congestive heart failure with heart strain. She was given 60 mg of Lasix she is had very little output. With minimal output after 60 mg would suggest admission to monitor strict I&Os. Also to monitor the demand ischemia. She also has acute on chronic respiratory failure requiring more O2 than normal. Multiple comorbidities. [facility] accepts patient Discharge Plan Departure Patient Disposition: Admitted as Observation Clinical Impression: CHF (congestive heart failure) Admit Date/Time: 09/18/22 23:57 Admit Provider: Sary Story
[2022-09-18 20:41] LABS: Alanine Aminotransferase 17 IU/L (<35); Albumin 3.7 g/dL (3.5-5.0); Alkaline Phosphatase 62 U/L (38-126); Aspartate Aminotransferase 23 IU/L (14-36); BUN Creatinine Ratio 18.5 (6-22); Bilirubin Total 0.7 mg/dL (0.2-1.3); Blood Urea Nitrogen 41 mg/dL (7-17); Calcium 10.1 mg/dL (8.4-10.2); Carbon Dioxide 35 mmol/L (22-32); Chloride 99 mmol/L (98-107); Creatine Kinase 39 U/L (30-135); Estimated Glomerular Filt Rate 25 mL/min (>60); Globulin 3.6 g/dL (1.7-4.1); Glucose 118 mg/dL (80-110); HEMOLYSIS < 15 (0-50); Lactate (Lactic Acid) 0.7 mmol/L (0.7-2.1); Potassium 4.2 mmol/L (3.4-5.1); Sodium 139 mmol/L (137-145); Total Protein 7.3 g/dL (6.3-8.2)
[2022-09-18 20:42] LABS: Lipase 166 U/L (23-300)
[2022-09-18 20:44] LABS: Add Manual Diff / Slide Review NO; Basophils Absolute Auto 0 /uL (0-100); Basophils Percent Auto 0.4 % (0-2); Eosinophils Absolute Auto 0 /uL (0-450); Eosinophils Percent Auto 0.1 % (2-4); Hematocrit 38.7 % (36-46); Hemoglobin 12.6 g/dL (12.0-16.0); Lymphocytes Absolute Auto 1100 /uL (1100-4500); Lymphocytes Percent Auto 11.3 % (25-40); Mean Corpuscular HGB Conc 32.5 % (30-36); Mean Corpuscular Hemoglobin 32.2 PG (26-34); Monocytes Absolute Auto 1200 /uL (0-900); Neutrophils Absolute Auto 7800 /uL (1500-7000); Neutrophils Percent Auto 76.2 % (50-75); Platelet Count 212 X10^3/uL (150-400); Red Blood Cell Count 3.91 X10^6/uL (4.0-5.2); Red Cell Distribution Width 16.5 % (11.6-14.8); White Blood Cell Count 10.2 X10^3/uL (4.5-11.0)
[2022-09-18 20:52] LABS: NT-proBNP (BNP-Adult 18+) 15800 pg/mL (<125)
[2022-09-18] MEDS: FUROSEMIDE 60 MG in SODIUM CHLORIDE 0.9% 50 ML 112 MG IV (21:20)
[2022-09-18 23:20] LABS: Troponin I 0.131 ng/mL (0.01-0.034)
[2022-09-19] VITALS (34 sets, daily range): BP systolic 87–118; BP diastolic 51–70; PULSE 77–101; RESP 20–37; TEMP 36.1–37.6; O2SAT 87–98; BMI 48.6
--- NOTE | 2022-09-19 00:36 | P.HP_ITS ---
History of Present Illness History of Present Illness Date Patient Seen: 09/19/22 Time Patient Seen: 00:36 Chief complaint: Acute/Chronic resp failure, CHF/COPD exac,elevtrop Narrative: Ms. Jett is a 61W with PMH COPD, chronic respiratory failure on 2L O2, PONCE on cpap, CHFpEF, morbid obesity, IDDM, htn, hypothyroid, HLD who presents with shortness of breath with increased O2 demand of 4 L up from 2 L. She resides at a long-term assisted care facility.? She was admitted to the hospital May 25 through June 01, and August 15 through August 24 for acute respiratory failure.? On last admit she was intubated for respiratory failure there was likely secondary to an aspiration event she was significantly volume overloaded(18 L off) at time with an aspiration pneumonia.? She was discharged to SNF on torsemide b.i.d. Today she presents on 4 L N/C with shortness of breaths.? However ED Dr. Muhammad was unable to obtain HPI/ROS from the patient, she was unsure why she is here.? She was given a 60 of Lasix/DuoNeb which seemed to resolve her acute respiratory failure is now back down to her baseline of 2 L. I as well found I was unable to obtain accurate HPI/ROS as patient is a very poor historian. At the time of admit patient's blood pressure continues to downtrend 87/54, HR 101, RR 32, 92% on 2 L nasal cannula which is patient's baseline. Patient has no white count but does have a minor left shift neutrophils 7800, mono 1200. Patient's renal function appears to be at baseline for CKD stage 3 BUN 44, bicarb 35, creatinine 2.22, GFR 25. Lactate normal, initial troponin 0.120, repeat 0.131. Last troponin 0.027, May: 0.052- 0.038. BNP 59283, baseline 6960 -5690. CXR:Bibasilar infiltrates and left pleural effusion. Patient admitted to the ICU for observation due to the recent history of multiple intubations for acute on chronic hypoxic respiratory failure likely secondary to CHF/COPD exacerbation with demand ischemia myocardial injury, and mild BLANCA on CKD. [facility] Medical History Chronic hypoxemic respiratory failure COPD (chronic obstructive pulmonary disease) DM2 (diabetes mellitus, type 2) HTN (hypertension) Obesity PONCE (obstructive sleep apnea) Systolic and diastolic CHF, chronic Thyroiditis Surgical History S/P hernia surgery Family History Mother No pertinent past medical history Father No pertinent past medical history Social History household members: other Smoking Status: Former smoker Meds Home Medications and Allergies Home Medications Medication Instructions Recorded Confirmed Type acetaminophen 325 mg tablet 650 mg PO TID 05/25/22 08/15/22 History (Tylenol) aspirin 81 mg tablet,delayed 81 mg PO DAILY 05/25/22 08/15/22 History release budesonide-formoterol HFA 160 2 puff inhalation Q4H PRN Wheezing 05/25/22 08/15/22 History mcg-4.5 mcg/actuation aerosol inhaler bupropion HCl 150 mg tablet,12 hr 150 mg PO BEDTIME 05/25/22 08/15/22 History sustained-release carvedilol 3.125 mg tablet 3.125 mg PO BID 05/25/22 08/15/22 History cyanocobalamin (vitamin B-12) 500 500 mcg PO DAILY 05/25/22 08/15/22 History mcg tablet fenofibrate 160 mg tablet 160 mg PO DAILY 05/25/22 08/15/22 History ferrous sulfate 325 mg (65 mg 325 mg PO DAILY 05/25/22 08/15/22 History iron) tablet fluoxetine 20 mg tablet 20 mg PO DAILY 05/25/22 08/15/22 History fluticasone propionate 50 2 spray intranasal DAILY 05/25/22 08/15/22 History mcg/actuation nasal spray,suspension gabapentin 300 mg capsule 300 mg PO BEDTIME 05/25/22 08/15/22 History insulin glargine 100 unit/mL (3 22 unit SUBCUT BID 05/25/22 08/16/22 History mL) subcutaneous pen insulin lispro 100 unit/mL 4 unit SUBCUT TIDWM 05/25/22 08/16/22 History subcutaneous solution (Humalog U-100 Insulin) lidocaine 5 % topical patch 1 patch topical DAILY 05/25/22 08/15/22 History loratadine 10 mg tablet 10 mg PO DAILY 05/25/22 08/15/22 History magnesium oxide 200 mg PO BID 05/25/22 08/15/22 History meclizine 25 mg tablet 25 mg PO Q8HR PRN Dizziness 05/25/22 08/15/22 History montelukast 10 mg tablet 10 mg PO DAILY 05/25/22 08/15/22 History nystatin 100,000 unit/gram topical 1 applic topical BID PRN Rash 05/25/22 08/16/22 History powder ondansetron 4 mg disintegrating 4 mg PO Q8H PRN Nausea 05/25/22 08/15/22 History tablet rosuvastatin 40 mg tablet 40 mg PO DAILY 05/25/22 08/15/22 History sennosides 8.6 mg tablet (senna) 17.2 mg PO BEDTIME 05/25/22 08/15/22 History tiotropium bromide 18 mcg capsule 1 cap inhalation DAILY 05/25/22 08/15/22 History with inhalation device (Spiriva with HandiHaler) trazodone 50 mg tablet 50 mg PO BEDTIME 05/25/22 08/15/22 History albuterol sulfate 90 mcg/actuation 4 puff inhalation Q4H PRN 08/15/22 08/15/22 History aerosol inhaler Shortness Of Breath Or Wheezing levothyroxine 175 mcg tablet 175 mcg PO DAILY 08/15/22 08/15/22 History potassium chloride 10 mEq 10 meq PO DAILY 08/15/22 08/15/22 History tablet,extended release torsemide 10 mg tablet 20 mg PO BID 08/15/22 08/16/22 History Allergies Allergy/AdvReac Type Severity Reaction Status Date / Time No Known Drug Allergies Allergy Verified 05/25/22 12:43 Review of Systems Review of Systems Narrative: All 12 point systems reviewed with the patient and are negative except otherwise documented. Again unable to obtain accurate ROS see HPI above. Exam Vital Signs (past 8 hours): - 09/18/22 18:29 09/18/22 18:38 09/18/22 18:25 Temperature 98.5 F Pulse Rate 106 H 104 H 106 H Respiratory Rate 34 H 24 Blood Pressure 121/58 L Pulse Oximetry 94 94 94 Oxygen Delivery Method Nasal Cannula Nasal Cannula Nasal Cannula Oxygen Flow Rate 4 09/18/22 18:30 09/18/22 18:30 09/18/22 18:46 Temperature Pulse Rate 106 H Respiratory Rate 30 H Blood Pressure 134/60 113/61 Pulse Oximetry 93 Oxygen Delivery Method Nasal Cannula Oxygen Flow Rate 4 09/18/22 18:46 09/18/22 19:00 09/18/22 19:00 Temperature Pulse Rate 105 H 105 H Respiratory Rate 30 H 34 H Blood Pressure 93/56 L Pulse Oximetry 95 92 Oxygen Delivery Method Nasal Cannula Oxygen Flow Rate 4 09/18/22 19:15 09/18/22 19:15 09/18/22 19:30 Temperature Pulse Rate 104 H Respiratory Rate 32 H Blood Pressure 104/68 106/67 Pulse Oximetry 92 Oxygen Delivery Method Oxygen Flow Rate 09/18/22 19:30 09/18/22 20:00 09/18/22 20:00 Temperature Pulse Rate 103 H 104 H Respiratory Rate 20 22 Blood Pressure 120/68 Pulse Oximetry 92 96 Oxygen Delivery Method Nasal Cannula Nasal Cannula Oxygen Flow Rate 4 4 09/18/22 20:15 09/18/22 20:15 09/18/22 20:30 Temperature Pulse Rate 105 H Respiratory Rate Blood Pressure 108/68 118/80 Pulse Oximetry 96 Oxygen Delivery Method Oxygen Flow Rate 09/18/22 20:30 09/18/22 20:45 09/18/22 20:45 Temperature Pulse Rate 104 H 105 H Respiratory Rate 31 H Blood Pressure 108/73 Pulse Oximetry 96 93 Oxygen Delivery Method Nasal Cannula Oxygen Flow Rate 4 09/18/22 21:00 09/18/22 21:00 09/18/22 21:30 Temperature Pulse Rate 104 H 102 H Respiratory Rate 22 36 H Blood Pressure 106/70 104/59 L Pulse Oximetry 93 93 Oxygen Delivery Method Nasal Cannula Oxygen Flow Rate 2 2 09/18/22 21:41 09/18/22 21:41 09/18/22 22:00 Temperature Pulse Rate 103 H Respiratory Rate 33 H Blood Pressure 104/59 L 107/55 L Pulse Oximetry 92 Oxygen Delivery Method Nasal Cannula Oxygen Flow Rate 2 09/18/22 22:00 09/18/22 22:30 09/18/22 22:30 Temperature Pulse Rate 104 H 102 H Respiratory Rate 34 H 31 H Blood Pressure 96/53 L Pulse Oximetry 94 92 Oxygen Delivery Method Nasal Cannula Nasal Cannula Oxygen Flow Rate 2 2 09/18/22 23:00 09/18/22 23:00 09/18/22 23:02 Temperature Pulse Rate 102 H 102 H Respiratory Rate 34 H 32 H Blood Pressure 89/49 L Pulse Oximetry 93 93 Oxygen Delivery Method Nasal Cannula Oxygen Flow Rate 2 09/18/22 23:02 09/18/22 23:30 09/18/22 23:30 Temperature Pulse Rate 101 H Respiratory Rate 32 H Blood Pressure 90/54 L 87/54 L Pulse Oximetry 92 Oxygen Delivery Method Nasal Cannula Oxygen Flow Rate 2 09/19/22 00:00 09/19/22 00:00 Temperature Pulse Rate 101 H Respiratory Rate 20 Blood Pressure 87/51 L Pulse Oximetry 93 Oxygen Delivery Method Oxygen Flow Rate Oxygen Delivery Method Nasal Cannula Oxygen Flow Rate 2 Narrative Exam Narrative: General: Patient is a morbidly obese female, slightly tachypneic likely her baseline, in no distress at this time. HEENT: Normocephalic, atraumatic, extraocular muscles intact, oral pharynx is clear and mucous membranes are moist. Neck is supple and symmetric, trachea is midline, no adenopathy, no thyroid enlargement, nontender, no masses palpated. Negative for JVD Chest: Equal chest rise without nasal flaring or retractions, slightly labored and tachypneic breathing. Lungs: Auscultation of all lung paz are decreased in bases, occasional exp iratory wheezing 2 right upper lobe. Difficult to auscultate due to body habitus. Cardio: regular rate and rhythm without murmur, rubs, or gallops, no carotid bruit, no cardiac pulsations present. Abdomen: Soft nontender, negative for organomegaly, or masses. Bowel sounds are hypoactive present in all 4 quadrants without guarding or rebound, no CVA tenderness. Musculoskeletal: Muscle strength and tone deconditioned from prolonged bedrest, no deformity, crepitus, effusions, cyanosis, clubbing or edema present. intact radial and pedal pulses are normal. Skin: Warm very dry (especially on feet) and intact without rashes, ulcerations or petechiae. Neuro: Alert and orientated x3, but a poor historian unable to recall how or why she is in the hospital or any symptoms leading up to presentation, moves all extremities, sensation to touch intact, no gross deficits noted of cranial nerves. Psych: Patient has a moderate-kept appearance, flat affect, mental status attitude thought context and judgment appear impaired and inappropriate for age. Objective Labs 09/18/22 19:57 09/18/22 19:57 Labs: Laboratory Results - last 24 hr 09/18/22 09/18/22 09/18/22 19:57 19:57 19:57 WBC 10.2 RBC 3.91 L Hgb 12.6 Hct 38.7 MCV 99.0 MCH 32.2 MCHC 32.5 RDW 16.5 H Plt Count 212 Neut % (Auto) 76.2 H Lymph % (Auto) 11.3 L [place] % (Auto) 12.0 Eos % (Auto) 0.1 L Baso % (Auto) 0.4 Neut # (Auto) 7800 H Lymph # (Auto) 1100 [place] # (Auto) 1200 H Eos # (Auto) 0 Baso # (Auto) 0 Sodium 139 Potassium 4.2 Chloride 99 Carbon Dioxide 35 H BUN 41 H Creatinine 2.22 H Estimated GFR 25 L BUN/Creatinine Ratio 18.5 Glucose 118 H Lactate 0.7 Calcium 10.1 Total Bilirubin 0.7 AST 23 ALT 17 Alkaline Phosphatase 62 Total Creatine Kinase 39 Troponin I 0.120 H NT-Pro-B Natriuret Pep 43858 H Total Protein 7.3 Albumin 3.7 Globulin 3.6 Albumin/Globulin Ratio 1.0 Lipase 09/18/22 09/18/22 19:57 22:45 WBC RBC Hgb Hct MCV MCH MCHC RDW Plt Count Neut % (Auto) Lymph % (Auto) [place] % (Auto) Eos % (Auto) Baso % (Auto) Neut # (Auto) Lymph # (Auto) [place] # (Auto) Eos # (Auto) Baso # (Auto) Sodium Potassium Chloride Carbon Dioxide BUN Creatinine Estimated GFR BUN/Creatinine Ratio Glucose Lactate Calcium Total Bilirubin AST ALT Alkaline Phosphatase Total Creatine Kinase Troponin I 0.131 H* NT-Pro-B Natriuret Pep Total Protein Albumin Globulin Albumin/Globulin Ratio Lipase 166 Assessment & Plan Assessment & Plan narrative: ?Ms. Jett is a 61W with PMH COPD, chronic respiratory failure on 2L O2, PONCE on cpap, CHFpEF, morbid obesity, IDDM, htn, hypothyroid, HLD who presents with shortness of breath with increased O2 demand of 4 L up from 2 L. She resides at a long-term assisted care facility.? She was admitted to the hospital May 25- , and August 15- August 24 for acute respiratory failure, UTI, aspiration pneumonia.?Admitted today for acute on chronic hypoxic respiratory failure likely secondary to CHF/COPD exacerbation with demand ischemia myocardial injury, and BLANCA on CKD. Patient admitted to ICU for observation due to recent history of multiple intubations, provide respiratory support, monitor for sepsis, bacteremia, shock, gentle diuresis, rule out infectious process, and trend troponins. Acute hypoxemic respiratory failure, on chronic hypoxemic respiratory failure, present on admission -suspect etiology most likely due to chf -however could be ponce/copd exacerbation with hypercapnea, and possible aspiration pneumonia. -Patient notes that she continues to eat in a reclined position which previously had led to aspiration pneumonia -patient is now back to baseline 92% on 2 L NC, had been up to 4 L in ED at 89%.-was given 60 mg Lasix, and DuoNeb treatment. -negative WBC, neutrophils 7800, mono 1200, lactic- negative, ordered procalcitonin -holding antibiotics pending culture results and additional laboratory findings -steroids, and duonebs -continue with diuresis Acute CHF exacerbation, on chronic HFrEF, present on admission -presents with no lower extremity edema and elevated bnp -06/2022 myocardial perfusion scan LVEF 36-40% -trops: 0.120, repeat 0.131 (last troponins 0.027- 0.052) -BNP 69372, (last 2273-9040) -continue lasix IV BID 20mg -fluid restriction, daily weight -goal negative 2-3L negative daily -sputum culture, respiratory panel, MRSA - CXR:Bibasilar infiltrates and left pleural effusion. -holding patient's torsemide, Spiriva, Symbicort, albuterol HFA -08/24/2022 D/C note Dr. Foley :she was documented 18.9L net negative. She was continued on torsemide BID. She was notably deconditioned and will be discharged to SNF for PT. She remains on 2L of oxygen which has been her baseline for some time. Myocardial injury as evidenced by troponin> 99th percentile, acute, present on admission -trops: 0.210, repeat 0.131 (last troponins 0.027- 0.052) -suspect demand ischemia secondary to CHF exacerbation, possible infections UTI and/or aspiration pneumonia. -continue to trend troponins, patient is asymptomatic without chest pain shortness of breath is at baseline BLANCA on CKD stage 3, acute on chronic, present on admission -suspect secondary chf exacerbation -admit creatinine 2.22, BUN 44, bicarb 35, GFR 25 -baseline creatinine appear to be 1.7-2.2, and her creatinine on discharge was 2.3. Baseline BUN 52-68, GFR 24-34 -will attempt gentle diuresis -strict I&O -urine culture ordered, history of UTIs -blood cultures pending Insulin-dependent type 2 diabetes, chronic, with secondary hyperlipidemia, chronic, present on admission -admitted under diabetic protocols, check glucose a.c. HS -ordered A1c, last A1c 05/26/2022 9.7% -on 22U BID of lantus -high dose insulin sliding scale for coverage -continue Lipitor Obesity severe obesity, acute on chronic, present on admission -as evidence by BMI 48.7 -dietary consult ordered regarding nutritional education and information for dietary, lifestyle, exercise, and weight changes. -the patient is at much higher risk for medical and surgical complications due to obesity as it relates to chronic illnesses:, and acute illness. The patient's obesity increases the difficulty and complexity of medical and/or surgical interventions, management and increases the chances of poor outcome such as morbidity and mortality as well as impaired wound healing. -BMI likely contributing to respiratory failure Hypertension, essential, chronic, present on admission -holding carvedilol overnight as pressures are still soft, BP 87/54 repeat 94/56 with a map of 71 Hypothyroidism, secondary to thyroiditis, chronic, present on admission -ordered TSH T4 -continue synthroid Peripheral neuropathy, chronic, present on admission -continue lidocaine patch, gabapentin Depression, chronic, present on admission -continue fluoxetine, trazodone Sleep apnea, with CPAP, chronic, present on admission -respiratory consult as needed-CPAP CODE: Full Surrogate decision maker: Roxy Berry, daughter DVT/VTE prophylaxis: Lovenox and SCDs Disposition: Patient admitted to the ICU for overnight observation, for acute respiratory failure on chronic secondary to CHF exacerbation, provide gentle diuresis, rule out infectious disease process, trend troponins, expected length of stay not to exceed 2 midnights. I have utilized all available immediate resources to obtain, update, or review the patient's current medications. I confirmed that the patient's advanced care plan is present, Code status is documented and/or surrogate decision maker is listed in the patient's medical record. I have personally reviewed patient's chart notes from PCP, specialists, diagnostic imaging, and laboratory results.
[2022-09-19 01:10] LABS: Procalcitonin 1.85 ng/mL (<0.5)
[2022-09-19] MEDS: SODIUM CHLORIDE 0.9% 1,000 ML 60 ML IV (01:10)
[2022-09-19 03:23] LABS: MRSA (Nasal) PCR Not Detected (Not Detect)
[2022-09-19] MEDS: LEVOTHYROXINE 75 MCG TABLET PO (06:08)
[2022-09-19] MEDS: LEVOTHYROXINE 100 MCG TABLET PO (06:08)
[2022-09-19 06:28] LABS: Add Manual Diff / Slide Review NO; Basophils Absolute Auto 0 /uL (0-100); Basophils Percent Auto 0.5 % (0-2); Eosinophils Absolute Auto 0 /uL (0-450); Eosinophils Percent Auto 0.2 % (2-4); Hematocrit 36.2 % (36-46); Hemoglobin 11.9 g/dL (12.0-16.0); Lymphocytes Absolute Auto 1000 /uL (1100-4500); Mean Corpuscular HGB Conc 32.9 % (30-36); Mean Corpuscular Hemoglobin 32.8 PG (26-34); Mean Corpuscular Volume 99.5 fL (80-100); Monocytes Absolute Auto 1300 /uL (0-900); Monocytes Percent Auto 13.8 % (3-14); Neutrophils Absolute Auto 7000 /uL (1500-7000); Neutrophils Percent Auto 74.5 % (50-75); Platelet Count 172 X10^3/uL (150-400); Red Blood Cell Count 3.63 X10^6/uL (4.0-5.2); Red Cell Distribution Width 16.2 % (11.6-14.8); White Blood Cell Count 9.4 X10^3/uL (4.5-11.0)
[2022-09-19 06:41] LABS: Lactate (Lactic Acid) 0.8 mmol/L (0.7-2.1)
[2022-09-19 06:42] LABS: Alanine Aminotransferase 20 IU/L (<35); Albumin 3.4 g/dL (3.5-5.0); Alkaline Phosphatase 55 U/L (38-126); Aspartate Aminotransferase 32 IU/L (14-36); BUN Creatinine Ratio 20.9 (6-22); Bilirubin Total 0.6 mg/dL (0.2-1.3); Blood Urea Nitrogen 47 mg/dL (7-17); Calcium 9.5 mg/dL (8.4-10.2); Carbon Dioxide 31 mmol/L (22-32); Chloride 100 mmol/L (98-107); Estimated Glomerular Filt Rate 24 mL/min (>60); Globulin 3.5 g/dL (1.7-4.1); Glucose 156 mg/dL (80-110); HEMOLYSIS < 15 (0-50); Sodium 138 mmol/L (137-145); Total Protein 6.9 g/dL (6.3-8.2)
[2022-09-19 06:51] LABS: NT-proBNP (BNP-Adult 18+) 12600 pg/mL (<125)
[2022-09-19 07:00] LABS: Adenovirus Not Detected (Not Detect); B. parapertussis Not Detected (Not Detecte); Bordetella pertussis Not Detected (Not Detecte); Chlamydophila pneumoniae Not Detected (Not Detect); Coronavirus 229E Not Detected (Not Detect); Coronavirus HKU1 Not Detected (Not Detect); Coronavirus NL 63 Not Detected (Not Detect); Coronavirus OC43 Not Detected (Not Detect); Human Metapneumovirus Not Detected (Not Detect); Human Rhinovirus/Enterovirus Not Detected (Not Detect); Influenza A Not Detected (Not Detect); Influenza B Not Detected (Not Detect); Mycoplasma pneumoniae Not Detected (Not Detect); Parainfluenza Virus 1 Not Detected (Not Detect); Parainfluenza Virus 2 Not Detected (Not Detect); Parainfluenza Virus 3 Not Detected (Not Detect); Parainfluenza Virus 4 Not Detected (Not Detect); Respiratory Syncytial Virus Not Detected (Not Detect); SARS- CoV-2 Not Detected (Not Detecte)
--- NOTE | 2022-09-19 07:15 | PC.NURSE ---
pt was admitted with reported SOB, but pt denied SOB on arrival to ICU, although her RR was 28; she is on 2l/nc which is her home o2 dose; she denies c/o pain
[2022-09-19] MEDS: INSULIN LISPRO 100 UNIT/ML 3ML VIAL SUBCUT ×2 (08:16→13:17)
[2022-09-19] MEDS: carvediloL 3.125 MG TABLET PO (08:19)
[2022-09-19] MEDS: FLUoxetine 20 MG CAPSULE PO (08:19)
[2022-09-19] MEDS: FENOFIBRATE, MICRONIZED 67 MG CAPSULE 201 MG PO (08:19)
[2022-09-19] MEDS: predniSONE 20 MG TABLET 50 MG PO (08:22)
[2022-09-19] MEDS: ENOXAPARIN 30 MG/0.3 ML SYRINGE SUBCUT (08:23)
[2022-09-19] MEDS: FUROSEMIDE 20 MG/2 ML VIAL IV (08:23)
[2022-09-19] MEDS: INSULIN GLARGINE 100 UNIT/ML 3ML PEN 22 UNIT SUBCUT (08:23)
[2022-09-19] MEDS: ALBUTEROL/IPRATROPIUM 3 ML AMPUL INH (10:01)
--- NOTE | 2022-09-19 10:08 | PM.DS.1 ---
History of Present Illness History of Present Illness Date Patient Seen: 09/19/22 Time Patient Seen: 00:36 Chief complaint: Acute/Chronic resp failure, CHF/COPD exac,elevtrop Narrative: Ms. Jett is a 61W with PMH COPD, chronic respiratory failure on 2L O2, PONCE on cpap, CHFpEF, morbid obesity, IDDM, htn, hypothyroid, HLD who presents with shortness of breath with increased O2 demand of 4 L up from 2 L. She resides at a long-term assisted care facility.? She was admitted to the hospital May 25 through June 01, and August 15 through August 24 for acute respiratory failure.? On last admit she was intubated for respiratory failure there was likely secondary to an aspiration event she was significantly volume overloaded(18 L off) at time with an aspiration pneumonia.? She was discharged to SNF on torsemide b.i.d. Today she presents on 4 L N/C with shortness of breaths.? However ED Dr. Muhammad was unable to obtain HPI/ROS from the patient, she was unsure why she is here.? She was given a 60 of Lasix/DuoNeb which seemed to resolve her acute respiratory failure is now back down to her baseline of 2 L. I as well found I was unable to obtain accurate HPI/ROS as patient is a very poor historian. At the time of admit patient's blood pressure continues to downtrend 87/54, HR 101, RR 32, 92% on 2 L nasal cannula which is patient's baseline. Patient has no white count but does have a minor left shift neutrophils 7800, mono 1200. Patient's renal function appears to be at baseline for CKD stage 3 BUN 44, bicarb 35, creatinine 2.22, GFR 25. Lactate normal, initial troponin 0.120, repeat 0.131. Last troponin 0.027, May: 0.052- 0.038. BNP 00466, baseline 6960 -5690. CXR:Bibasilar infiltrates and left pleural effusion. Patient admitted to the ICU for observation due to the recent history of multiple intubations for acute on chronic hypoxic respiratory failure likely secondary to CHF/COPD exacerbation with demand ischemia myocardial injury, and mild BLANCA on CKD. Discharge Providers Provider Date of admission: 09/18/22 23:57 Discharge Date: 09/19/22 Primary care physician: Simone Rodgers MD Consults: 09/19/22 00:29 Consult to Dietitian, Adult Routine Comment: Reason For Exam: BMI >50 09/19/22 00:32 Consult to Occupational Therapy Evaluate & Treat Comment: Physician Instructions: Evaluate and treat Consult to Physical Therapy Evaluate & Treat Comment: Physician Instructions: Evaluate and Treat Discharge provider: Esteban Gillespie DO Summary Hospital Course Discharge Diagnosis: Acute hypoxemic respiratory failure, on chronic hypoxemic respiratory failure, present on admission Acute on chronic HFrEF, present on admission Myocardial injury as evidenced by troponin> 99th percentile, acute, present on admission CKD stage 3, acute on chronic, present on admission -baseline creatinine appear to be 1.7-2.2, and her creatinine on discharge was 2.3. Insulin-dependent type 2 diabetes, chronic, with secondary hyperlipidemia, chronic,? present on admission Obesity severe obesity, acute on chronic, present on admission Hypertension, essential, chronic, present on admission Hypothyroidism, secondary to thyroiditis, chronic, present on admission Peripheral neuropathy, chronic, present on admission Depression, chronic, present on admission Sleep apnea, with CPAP, chronic, present on admission Hospital Course: Ms. Jett is a 61W with PMH COPD, chronic respiratory failure on 2L O2, PONCE on cpap, CHFpEF, morbid obesity, IDDM, htn, hypothyroid, HLD who presents with shortness of breath with increased O2 demand of 4 L up from 2 L. She resides at a long-term assisted care facility.? She was admitted to the hospital May 25-, and August 15- August 24 for acute respiratory failure, UTI, aspiration pneumonia.?Admitted today for acute on chronic hypoxic respiratory failure likely secondary to CHF/COPD exacerbation with demand ischemia myocardial injury. She improved more quickly than expected, with quick improvement back to 2L of O2 with minimal diuresis. She can return back to SNF on previous medications. Troponin peaked at 0.131 then downtrended. Exam Vital Signs (past 8 hours): - 09/19/22 03:16 09/19/22 04:00 09/19/22 07:00 Temperature 98.4 F Pulse Rate 86 96 H Respiratory Rate 26 H Blood Pressure 112/70 Pulse Oximetry 94 96 Oxygen Delivery Method CPAP Nasal Cannula Oxygen Flow Rate 4 4 Fraction of Inspired Oxygen 36 09/19/22 08:19 Temperature Pulse Rate 87 Respiratory Rate Blood Pressure 109/61 Pulse Oximetry Oxygen Delivery Method Oxygen Flow Rate Fraction of Inspired Oxygen Fraction of Inspired Oxygen 36 SaO2/FiO2 Ratio 261 Oxygen Delivery Method Nasal Cannula Oxygen Flow Rate 4 Objective Labs 09/19/22 06:15 09/19/22 06:15 Labs: Laboratory Results - last 24 hr 09/18/22 09/18/22 09/18/22 19:57 19:57 19:57 WBC 10.2 RBC 3.91 L Hgb 12.6 Hct 38.7 MCV 99.0 MCH 32.2 MCHC 32.5 RDW 16.5 H Plt Count 212 Neut % (Auto) 76.2 H Lymph % (Auto) 11.3 L [place] % (Auto) 12.0 Eos % (Auto) 0.1 L Baso % (Auto) 0.4 Neut # (Auto) 7800 H Lymph # (Auto) 1100 [place] # (Auto) 1200 H Eos # (Auto) 0 Baso # (Auto) 0 Sodium 139 Potassium 4.2 Chloride 99 Carbon Dioxide 35 H BUN 41 H Creatinine 2.22 H Estimated GFR 25 L BUN/Creatinine Ratio 18.5 Glucose 118 H Lactate 0.7 Calcium 10.1 Magnesium Total Bilirubin 0.7 AST 23 ALT 17 Alkaline Phosphatase 62 Total Creatine Kinase 39 Troponin I 0.120 H NT-Pro-B Natriuret Pep 89837 H Total Protein 7.3 Albumin 3.7 Globulin 3.6 Albumin/Globulin Ratio 1.0 Lipase Procalcitonin Nasal Screen MRSA (PCR) Chlamy pneumoniae PCR Adenovirus (PCR) B. pertussis DNA (PCR) B.parapertussis DNA PCR Coronavirus OC43 (PCR) Coronavirus HKU1 (PCR) Coronavirus 229E (PCR) SARS-CoV-2 (PCR) Coronavirus NL63 (PCR) Human Metapneumovir PCR Influenza Type A (PCR) Influenza Type B (PCR) M. pneumoniae (PCR) Parainfluenza 1 (PCR) Parainfluenza 2 (PCR) Parainfluenza 3 (PCR) Parainfluenza 4 (PCR) RSV (PCR) Entero/Rhino (PCR) 09/18/22 09/18/22 09/18/22 19:57 22:45 22:45 WBC RBC Hgb Hct MCV MCH MCHC RDW Plt Count Neut % (Auto) Lymph % (Auto) [place] % (Auto) Eos % (Auto) Baso % (Auto) Neut # (Auto) Lymph # (Auto) [place] # (Auto) Eos # (Auto) Baso # (Auto) Sodium Potassium Chloride Carbon Dioxide BUN Creatinine Estimated GFR BUN/Creatinine Ratio Glucose Lactate Calcium Magnesium Total Bilirubin AST ALT Alkaline Phosphatase Total Creatine Kinase Troponin I 0.131 H* NT-Pro-B Natriuret Pep Total Protein Albumin Globulin Albumin/Globulin Ratio Lipase 166 Procalcitonin 1.85 H Nasal Screen MRSA (PCR) Chlamy pneumoniae PCR Adenovirus (PCR) B. pertussis DNA (PCR) B.parapertussis DNA PCR Coronavirus OC43 (PCR) Coronavirus HKU1 (PCR) Coronavirus 229E (PCR) SARS-CoV-2 (PCR) Coronavirus NL63 (PCR) Human Metapneumovir PCR Influenza Type A (PCR) Influenza Type B (PCR) M. pneumoniae (PCR) Parainfluenza 1 (PCR) Parainfluenza 2 (PCR) Parainfluenza 3 (PCR) Parainfluenza 4 (PCR) RSV (PCR) Entero/Rhino (PCR) 09/19/22 09/19/22 09/19/22 00:52 05:50 06:15 WBC RBC Hgb Hct MCV MCH MCHC RDW Plt Count Neut % (Auto) Lymph % (Auto) [place] % (Auto) Eos % (Auto) Baso % (Auto) Neut # (Auto) Lymph # (Auto) [place] # (Auto) Eos # (Auto) Baso # (Auto) Sodium Potassium Chloride Carbon Dioxide BUN Creatinine Estimated GFR BUN/Creatinine Ratio Glucose Lactate Calcium Magnesium 2.0 Total Bilirubin AST ALT Alkaline Phosphatase Total Creatine Kinase Troponin I NT-Pro-B Natriuret Pep Total Protein Albumin Globulin Albumin/Globulin Ratio Lipase Procalcitonin Nasal Screen MRSA (PCR) Not detected Chlamy pneumoniae PCR Not detected Adenovirus (PCR) Not detected B. pertussis DNA (PCR) Not detected B.parapertussis DNA PCR Not detected Coronavirus OC43 (PCR) Not detected Coronavirus HKU1 (PCR) Not detected Coronavirus 229E (PCR) Not detected SARS-CoV-2 (PCR) Not detected Coronavirus NL63 (PCR) Not detected Human Metapneumovir PCR Not detected Influenza Type A (PCR) Not detected Influenza Type B (PCR) Not detected M. pneumoniae (PCR) Not detected Parainfluenza 1 (PCR) Not detected Parainfluenza 2 (PCR) Not detected Parainfluenza 3 (PCR) Not detected Parainfluenza 4 (PCR) Not detected RSV (PCR) Not detected Entero/Rhino (PCR) Not detected 09/19/22 09/19/22 09/19/22 06:15 06:15 06:15 WBC 9.4 RBC 3.63 L Hgb 11.9 L Hct 36.2 MCV 99.5 MCH 32.8 MCHC 32.9 RDW 16.2 H Plt Count 172 Neut % (Auto) 74.5 Lymph % (Auto) 11.0 L [place] % (Auto) 13.8 Eos % (Auto) 0.2 L Baso % (Auto) 0.5 Neut # (Auto) 7000 Lymph # (Auto) 1000 L [place] # (Auto) 1300 H Eos # (Auto) 0 Baso # (Auto) 0 Sodium 138 Potassium 4.0 Chloride 100 Carbon Dioxide 31 BUN 47 H Creatinine 2.25 H Estimated GFR 24 L BUN/Creatinine Ratio 20.9 Glucose 156 H Lactate 0.8 Calcium 9.5 Magnesium Total Bilirubin 0.6 AST 32 ALT 20 Alkaline Phosphatase 55 Total Creatine Kinase Troponin I NT-Pro-B Natriuret Pep 35727 H Total Protein 6.9 Albumin 3.4 L Globulin 3.5 Albumin/Globulin Ratio 1.0 Lipase Procalcitonin Nasal Screen MRSA (PCR) Chlamy pneumoniae PCR Adenovirus (PCR) B. pertussis DNA (PCR) B.parapertussis DNA PCR Coronavirus OC43 (PCR) Coronavirus HKU1 (PCR) Coronavirus 229E (PCR) SARS-CoV-2 (PCR) Coronavirus NL63 (PCR) Human Metapneumovir PCR Influenza Type A (PCR) Influenza Type B (PCR) M. pneumoniae (PCR) Parainfluenza 1 (PCR) Parainfluenza 2 (PCR) Parainfluenza 3 (PCR) Parainfluenza 4 (PCR) RSV (PCR) Entero/Rhino (PCR) 09/19/22 06:15 WBC RBC Hgb Hct MCV MCH MCHC RDW Plt Count Neut % (Auto) Lymph % (Auto) [place] % (Auto) Eos % (Auto) Baso % (Auto) Neut # (Auto) Lymph # (Auto) [place] # (Auto) Eos # (Auto) Baso # (Auto) Sodium Potassium Chloride Carbon Dioxide BUN Creatinine Estimated GFR BUN/Creatinine Ratio Glucose Lactate Calcium Magnesium Total Bilirubin AST ALT Alkaline Phosphatase Total Creatine Kinase Troponin I 0.090 H NT-Pro-B Natriuret Pep Total Protein Albumin Globulin Albumin/Globulin Ratio Lipase Procalcitonin Nasal Screen MRSA (PCR) Chlamy pneumoniae PCR Adenovirus (PCR) B. pertussis DNA (PCR) B.parapertussis DNA PCR Coronavirus OC43 (PCR) Coronavirus HKU1 (PCR) Coronavirus 229E (PCR) SARS-CoV-2 (PCR) Coronavirus NL63 (PCR) Human Metapneumovir PCR Influenza Type A (PCR) Influenza Type B (PCR) M. pneumoniae (PCR) Parainfluenza 1 (PCR) Parainfluenza 2 (PCR) Parainfluenza 3 (PCR) Parainfluenza 4 (PCR) RSV (PCR) Entero/Rhino (PCR) [facility] Medical History Chronic hypoxemic respiratory failure COPD (chronic obstructive pulmonary disease) DM2 (diabetes mellitus, type 2) HTN (hypertension) Obesity PONCE (obstructive sleep apnea) Systolic and diastolic CHF, chronic Thyroiditis Surgical History S/P hernia surgery Family History Mother No pertinent past medical history Father No pertinent past medical history Social History household members: children and other Smoking Status: Former smoker Discharge Plan Discharge Plan Patient Disposition: Home Discharge orders & Medications Prescriptions: No Action albuterol sulfate 90 mcg/actuation HFA aerosol inhaler 4 puff INHALATION Q4H PRN (Reason: Shortness Of Breath Or Wheezing) levothyroxine 175 mcg tablet 175 mcg PO DAILY potassium chloride 10 mEq tablet extended release 10 meq PO DAILY torsemide 10 mg tablet 20 mg PO BID bupropion HCl 150 mg tablet sustained-release 12 hr 150 mg PO BEDTIME sennosides [senna] 8.6 mg tablet 17.2 mg PO BEDTIME acetaminophen [Tylenol] 325 mg Tablet 650 mg PO TID trazodone 50 mg tablet 50 mg PO BEDTIME aspirin 81 mg Tablet,Delayed Release (Dr/Ec) 81 mg PO DAILY carvedilol 3.125 mg tablet 3.125 mg PO BID cyanocobalamin (vitamin B-12) 500 mcg Tablet 500 mcg PO DAILY meclizine 25 mg tablet 25 mg PO Q8HR PRN (Reason: Dizziness) ferrous sulfate 325 mg (65 mg iron) Tablet 325 mg PO DAILY fluoxetine 20 mg Tablet 20 mg PO DAILY lidocaine 5 % adhesive patch,medicated 1 patch topical DAILY Rx Instructions: to right bicep gabapentin 300 mg Capsule 300 mg PO BEDTIME montelukast 10 mg Tablet 10 mg PO DAILY nystatin 100,000 unit/gram Powder 1 applic TOPICAL BID PRN (Reason: Rash) insulin lispro [Humalog U-100 Insulin] 100 unit/mL Solution 4 unit SUBCUT TIDWM ondansetron 4 mg Tablet,Disintegrating 4 mg PO Q8H PRN (Reason: Nausea) fluticasone propionate 50 mcg/actuation [place],Suspension 2 spray INTRANASAL DAILY Rx Instructions: administer into each nostril loratadine 10 mg Tablet 10 mg PO DAILY rosuvastatin 40 mg Tablet 40 mg PO DAILY Spiriva with HandiHaler 18 mcg Capsule, W/Inhalation Device 1 cap INHALATION DAILY Rx Instructions: puncture 1 cap using device; one dose = 2 inhalations fenofibrate 160 mg Tablet 160 mg PO DAILY budesonide-formoterol 160-4.5 mcg/actuation Hfa Aerosol Inhaler 2 puff INHALATION Q4H PRN (Reason: Wheezing) insulin glargine 100 unit/mL (3 mL) Insulin Pen 22 unit SUBCUT BID magnesium oxide 200 mg magnesium Tablet 200 mg PO BID Follow up/Referrals: Simone Rodgers MD [Primary Care Provider] - Visit Report/Discharge Packet Stand Alone Forms: Patient Portal/API, Stroke Signs & Symptoms Discharge Data Primary Care Provider: Simone Rodgers Attending Provider: Sary Story Admit Date/Time: 09/18/22 23:57 Quality VTE Deep Vein Thrombosis/Pulmonary Embolism Present on Admission: No
--- NOTE | 2022-09-19 10:14 | PT-IP ANOTE ---
Per discussion at AM interdisciplinary rounds, pt is at her baseline and will be discharging back to [facility] today. No acute PT needs. Will discharge the order.
--- NOTE | 2022-09-19 10:31 | OT.IPNOTE ---
Chart reviewed. Discussed in rounds. Pt is planned for discharge back to [facility] today which is her permanent placement. Per MD, cancel OT and P.T. orders at this time. Order discharged.
--- NOTE | 2022-09-19 10:40 | CM.DANOTE ---
Addendum entered by GA Han 09/19/22 15:47: Ursula from [facility] called to inform SUPERVISOR FISH BAIT PROCESSING that [facility] accepted the Auth. Ursula informed they could come get patient at 3:30pm today, 09/19. SUPERVISOR FISH BAIT PROCESSING informed DESIGN TEACHER, nursing staff, and provider. SUPERVISOR FISH BAIT PROCESSING gave nursing staff the nurse report number. Ursula requested med list and dietary orders from this team. SUPERVISOR FISH BAIT PROCESSING faxed over med list and diet orders. Ursula reported no PASRR needed at this time due to patient returning to [facility]. CM Housing Assistant Property Manager Heide faxed discharge summary. Plan: D[facility]c [facility] to [facility] today, 09/19 at 3:30pm. CM team will continue to follow as needed. SL Original Note: DCP Assessment: Patient is a 61yo Female here following shortness of breath. Patient is a readmit and was here 08/15 to 08/24. PCP: Simone Rodgers Payer: [facility] and Medicaid SUPERVISOR FISH BAIT PROCESSING reviewed EMR. From chart, patient lives at [facility]. From nursing staff, it was confusing if patient came to the hospital from [facility] or [facility] at this time. SUPERVISOR FISH BAIT PROCESSING entered room and introduced self and role. Patient was sitting up and appeared A/Ox4. Patient reports that she's been at [facility] learning to walk and is open to return there. Patient reports no other changes to her baseline at this time. From rounds, provider reports she is medically cleared to d/c today. SUPERVISOR FISH BAIT PROCESSING lvm with [facility] for more information re: patient's living status. ([phone] ext [phone]). Leti from [facility] returned SUPERVISOR FISH BAIT PROCESSING call. Leti reported she is no longer a permanent resident there and she d'c with them on 09/06. Leti reported she is now a [facility] resident. SUPERVISOR FISH BAIT PROCESSING called Ursula with [facility]. Ursula reported due to patient staying overnight they need a new authorization from [facility]. Ursula reported she likely did not need a new PT/OT eval for the auth but would keep this author updated. Ursula reported that if they get the auth from [facility], they can take patient back today. Ursula reports she is not a permanent resident of [facility], and that she will reestablish services with [facility] when she d/cs from [facility]. Ursula asked that the d/c paperwork specify [facility] for rehab services. Plan: d/c to [facility], hopefully today, pending [facility] Auth. August will call back and let this author know TOMMY re: auth status. Transport with facility. CM team will continue to follow closely. GA Han Discharge Planning/Care Management CM Discharge Assessment Start: 09/19/22 10:33 Freq: Status: Active Protocol: Document 09/19/22 10:33 SL (Rec: 09/19/22 10:39 SL [id number]) Discharge Planning Assessment Assigned Authorization Manager GA Solitario DPOA/Assigned Designee Name Roxy Berry (daughter) Advance Directives? No History Provided By Patient,Medical Record Has Patient been admitted in last 30 Yes days? Comment d/c 08/24 to [facility] Prior Living Arrangements Skilled Nurse Facility Household Members other Type of transporation used prior to Relies on Others admit Facility Name Admitted From: [facility] Willing to Return to Facility? Yes Independent with ADL's No Is patient alert and oriented? Yes Needs Assistance With Bathing,Meal Prep,Managing Medications,Home Chores / Shopping Caregiver for Another No DME Already Rented / Owned Wheelchair,FWW / Walker,Oxygen Patient/Family Preference Halfway Facility Barriers to Discharge Yes Comment Will return to [facility]. Waiting on auth from [facility]. Discharge Plan Halfway Facility Transportation Arrangement Facility Referrals Initiated None needed SNF/HH Preference Patient wants to return to [facility]. Has Agency SNF been contacted Yes Comment August from [facility] attempting to get referral now . Whiteboard Updated in Patient Room with Yes name and ext. # of Authorization Manager Review Status In Process Next Review Type Continued Stay Review
--- NOTE | 2022-09-19 14:29 | P.DS_ITS ---
History of Present Illness History of Present Illness Date Patient Seen: 09/19/22 Time Patient Seen: 14:29 Chief complaint: Acute/Chronic resp failure, CHF/COPD exac,elevtrop Narrative: Per admitting provider, Ms. Jett is a 61W with PMH COPD, chronic respiratory failure on 2L O2, PONCE on cpap, CHFpEF, morbid obesity, IDDM, htn, hypothyroid, HLD who presents with shortness of breath with increased O2 demand of 4 L up from 2 L. She resides at a long-term assisted care facility.? She was admitted to the hospital May 25 through June 01, and August 15 through August 24 for acute respiratory failure.? On last admit she was intubated for respiratory failure there was likely secondary to an aspiration event she was significantly volume overloaded(18 L off) at time with an aspiration pneumonia.? She was discharged to SNF on torsemide b.i.d. Today she presents on 4 L N/C with shortness of breaths.? However ED Dr. Muhammad was unable to obtain HPI/ROS from the patient, she was unsure why she is here.? She was given a 60 of Lasix/DuoNeb which seemed to resolve her acute respiratory failure is now back down to her baseline of 2 L. I as well found I was unable to obtain accurate HPI/ROS as patient is a very poor historian. At the time of admit patient's blood pressure continues to downtrend 87/54, HR 101, RR 32, 92% on 2 L nasal cannula which is patient's baseline. Patient has no white count but does have a minor left shift neutrophils 7800, mono 1200. Patient's renal function appears to be at baseline for CKD stage 3 BUN 44, bicarb 35, creatinine 2.22, GFR 25. Lactate normal, initial troponin 0.120, repeat 0.131. Last troponin 0.027, May: 0.052- 0.038. BNP 85438, baseline 6960 -5690. CXR:Bibasilar infiltrates and left pleural effusion. Patient admitted to the ICU for observation due to the recent history of multiple intubations for acute on chronic hypoxic respiratory failure likely secondary to CHF/COPD exacerbation with demand ischemia myocardial injury, and mild BLANCA on CKD. Discharge Providers Provider Date of admission: 09/18/22 23:57 Discharge Date: 09/19/22 Primary care physician: Simone Rodgers MD Consults: 09/19/22 00:29 Consult to Dietitian, Adult Routine Comment: Reason For Exam: BMI >50 09/19/22 00:32 Consult to Occupational Therapy Evaluate & Treat Comment: Physician Instructions: Evaluate and treat Consult to Physical Therapy Evaluate & Treat Comment: Physician Instructions: Evaluate and Treat Discharge provider: Esteban Gillespie DO Summary Hospital Course Discharge Diagnosis: Acute hypoxemic respiratory failure, on chronic hypoxemic respiratory failure, present on admission Acute on chronic HFrEF, present on admission Myocardial injury as evidenced by troponin> 99th percentile, acute, present on admission CKD stage 3, acute on chronic, present on admission Insulin-dependent type 2 diabetes, chronic, with secondary hyperlipidemia, chronic,? present on admission Obesity severe obesity, acute on chronic, present on admission Hypertension, essential, chronic, present on admission Hypothyroidism, secondary to thyroiditis, chronic, present on admission Peripheral neuropathy, chronic, present on admission Depression, chronic, present on admission Sleep apnea, with CPAP, chronic, present on admission Hospital Course: Ms. Jett is a 61W with PMH COPD, chronic respiratory failure on 2L O2, PONCE on cpap, CHFpEF, morbid obesity, IDDM, htn, hypothyroid, HLD who presented with shortness of breath with increased O2 demand of 4 L up from 2 L. She resides at a long-term assisted care facility.? She was admitted to the hospital May 25- , and August 15- August 24 for acute respiratory failure, UTI, aspiration pneumonia.?Admitted today for acute on chronic hypoxic respiratory failure likely secondary to CHF/COPD exacerbation with demand ischemia myocardial injury.? Patient admitted to ICU for observation due to recent history of multiple intubations. She improved much more quickly than expected and had improved to her usual respiratory status after some diuresis. Troponin peaked at 0.131 and then downtrended, likely elevated in setting of chronic renal dysfunction and CHF exacerbation. Acute infection was presumed less likely after rapid improvement. No medication changes to her home medications are recommended at the time of discharge. Time Spent with Patient Time spent: Greater than 30 minutes Exam Vital Signs (past 8 hours): - 09/19/22 07:00 09/19/22 08:19 09/19/22 11:00 Temperature Pulse Rate 87 83 Respiratory Rate 30 H Blood Pressure 109/61 114/56 L Pulse Oximetry 94 Oxygen Delivery Method Nasal Cannula Oxygen Flow Rate 2 09/19/22 12:27 09/19/22 06:30 09/19/22 07:00 Temperature 96.9 F L Pulse Rate 86 85 Respiratory Rate 30 H 28 H Blood Pressure Pulse Oximetry 94 94 Oxygen Delivery Method Oxygen Flow Rate 09/19/22 07:30 09/19/22 08:00 09/19/22 08:21 Temperature Pulse Rate 84 85 87 Respiratory Rate 29 H 32 H 25 H Blood Pressure Pulse Oximetry 94 92 93 Oxygen Delivery Method Oxygen Flow Rate 09/19/22 08:21 09/19/22 08:30 09/19/22 09:00 Temperature Pulse Rate 85 89 Respiratory Rate 28 H 30 H Blood Pressure 109/61 Pulse Oximetry 93 92 Oxygen Delivery Method Oxygen Flow Rate 09/19/22 09:30 09/19/22 10:00 09/19/22 10:30 Temperature Pulse Rate 85 85 86 Respiratory Rate 32 H 28 H 30 H Blood Pressure Pulse Oximetry 95 94 92 Oxygen Delivery Method Oxygen Flow Rate 09/19/22 10:33 09/19/22 12:30 09/19/22 13:29 Temperature Pulse Rate 85 77 78 Respiratory Rate 33 H 27 H 28 H Blood Pressure Pulse Oximetry 93 93 92 Oxygen Delivery Method Oxygen Flow Rate 09/19/22 13:29 Temperature Pulse Rate Respiratory Rate Blood Pressure 118/67 Pulse Oximetry Oxygen Delivery Method Oxygen Flow Rate Fraction of Inspired Oxygen 36 SaO2/FiO2 Ratio 261 Oxygen Delivery Method Nasal Cannula Oxygen Flow Rate 2 Narrative Exam Narrative: General: Patient is a morbidly obese female, slightly tachypneic likely her baseline, in no distress at this time. HEENT: Normocephalic, atraumatic, extraocular muscles intact, oral pharynx is clear and mucous membranes are moist. Neck is supple and symmetric, trachea is midline, no adenopathy, no thyroid enlargement, nontender, no masses palpated. Negative for JVD Chest: Equal chest rise without nasal flaring or retractions, no respiratory distress. Lungs: Auscultation of all lung paz are decreased in bases, occasional expiratory wheezing 2 right upper lobe. Difficult to auscultate due to body izaguirre bitus. Cardio: regular rate and rhythm without murmur, rubs, or gallops, no carotid bruit, no cardiac pulsations present. Abdomen: Soft nontender, negative for organomegaly, or masses. Bowel sounds are hypoactive present in all 4 quadrants without guarding or rebound, no CVA tenderness. Musculoskeletal: Muscle strength and tone deconditioned from prolonged bedrest, no deformity, crepitus, effusions, cyanosis, clubbing or edema present. intact radial and pedal pulses are normal. Skin: Warm very dry (especially on feet) and intact without rashes, ulcerations or petechiae. Neuro: Alert and orientated x3, moves all extremities, sensation to touch intact, no gross deficits noted of cranial nerves. Psych: Patient has a moderate-kept appearance, flat affect, mental status attitude thought context and judgment appear impaired and inappropriate for age. Objective Labs 09/19/22 06:15 09/19/22 06:15 Labs: Laboratory Results - last 24 hr 09/18/22 09/18/22 09/18/22 19:57 19:57 19:57 WBC 10.2 RBC 3.91 L Hgb 12.6 Hct 38.7 MCV 99.0 MCH 32.2 MCHC 32.5 RDW 16.5 H Plt Count 212 Neut % (Auto) 76.2 H Lymph % (Auto) 11.3 L [place] % (Auto) 12.0 Eos % (Auto) 0.1 L Baso % (Auto) 0.4 Neut # (Auto) 7800 H Lymph # (Auto) 1100 [place] # (Auto) 1200 H Eos # (Auto) 0 Baso # (Auto) 0 Sodium 139 Potassium 4.2 Chloride 99 Carbon Dioxide 35 H BUN 41 H Creatinine 2.22 H Estimated GFR 25 L BUN/Creatinine Ratio 18.5 Glucose 118 H Lactate 0.7 Calcium 10.1 Magnesium Total Bilirubin 0.7 AST 23 ALT 17 Alkaline Phosphatase 62 Total Creatine Kinase 39 Troponin I 0.120 H NT-Pro-B Natriuret Pep 96010 H Total Protein 7.3 Albumin 3.7 Globulin 3.6 Albumin/Globulin Ratio 1.0 Lipase Procalcitonin Nasal Screen MRSA (PCR) Chlamy pneumoniae PCR Adenovirus (PCR) B. pertussis DNA (PCR) B.parapertussis DNA PCR Coronavirus OC43 (PCR) Coronavirus HKU1 (PCR) Coronavirus 229E (PCR) SARS-CoV-2 (PCR) Coronavirus NL63 (PCR) Human Metapneumovir PCR Influenza Type A (PCR) Influenza Type B (PCR) M. pneumoniae (PCR) Parainfluenza 1 (PCR) Parainfluenza 2 (PCR) Parainfluenza 3 (PCR) Parainfluenza 4 (PCR) RSV (PCR) Entero/Rhino (PCR) 09/18/22 09/18/22 09/18/22 19:57 22:45 22:45 WBC RBC Hgb Hct MCV MCH MCHC RDW Plt Count Neut % (Auto) Lymph % (Auto) [place] % (Auto) Eos % (Auto) Baso % (Auto) Neut # (Auto) Lymph # (Auto) [place] # (Auto) Eos # (Auto) Baso # (Auto) Sodium Potassium Chloride Carbon Dioxide BUN Creatinine Estimated GFR BUN/Creatinine Ratio Glucose Lactate Calcium Magnesium Total Bilirubin AST ALT Alkaline Phosphatase Total Creatine Kinase Troponin I 0.131 H* NT-Pro-B Natriuret Pep Total Protein Albumin Globulin Albumin/Globulin Ratio Lipase 166 Procalcitonin 1.85 H Nasal Screen MRSA (PCR) Chlamy pneumoniae PCR Adenovirus (PCR) B. pertussis DNA (PCR) B.parapertussis DNA PCR Coronavirus OC43 (PCR) Coronavirus HKU1 (PCR) Coronavirus 229E (PCR) SARS-CoV-2 (PCR) Coronavirus NL63 (PCR) Human Metapneumovir PCR Influenza Type A (PCR) Influenza Type B (PCR) M. pneumoniae (PCR) Parainfluenza 1 (PCR) Parainfluenza 2 (PCR) Parainfluenza 3 (PCR) Parainfluenza 4 (PCR) RSV (PCR) Entero/Rhino (PCR) 09/19/22 09/19/22 09/19/22 00:52 05:50 06:15 WBC RBC Hgb Hct MCV MCH MCHC RDW Plt Count Neut % (Auto) Lymph % (Auto) [place] % (Auto) Eos % (Auto) Baso % (Auto) Neut # (Auto) Lymph # (Auto) [place] # (Auto) Eos # (Auto) Baso # (Auto) Sodium Potassium Chloride Carbon Dioxide BUN Creatinine Estimated GFR BUN/Creatinine Ratio Glucose Lactate Calcium Magnesium 2.0 Total Bilirubin AST ALT Alkaline Phosphatase Total Creatine Kinase Troponin I NT-Pro-B Natriuret Pep Total Protein Albumin Globulin Albumin/Globulin Ratio Lipase Procalcitonin Nasal Screen MRSA (PCR) Not detected Chlamy pneumoniae PCR Not detected Adenovirus (PCR) Not detected B. pertussis DNA (PCR) Not detected B.parapertussis DNA PCR Not detected Coronavirus OC43 (PCR) Not detected Coronavirus HKU1 (PCR) Not detected Coronavirus 229E (PCR) Not detected SARS-CoV-2 (PCR) Not detected Coronavirus NL63 (PCR) Not detected Human Metapneumovir PCR Not detected Influenza Type A (PCR) Not detected Influenza Type B (PCR) Not detected M. pneumoniae (PCR) Not detected Parainfluenza 1 (PCR) Not detected Parainfluenza 2 (PCR) Not detected Parainfluenza 3 (PCR) Not detected Parainfluenza 4 (PCR) Not detected RSV (PCR) Not detected Entero/Rhino (PCR) Not detected 09/19/22 09/19/22 09/19/22 06:15 06:15 06:15 WBC 9.4 RBC 3.63 L Hgb 11.9 L Hct 36.2 MCV 99.5 MCH 32.8 MCHC 32.9 RDW 16.2 H Plt Count 172 Neut % (Auto) 74.5 Lymph % (Auto) 11.0 L [place] % (Auto) 13.8 Eos % (Auto) 0.2 L Baso % (Auto) 0.5 Neut # (Auto) 7000 Lymph # (Auto) 1000 L [place] # (Auto) 1300 H Eos # (Auto) 0 Baso # (Auto) 0 Sodium 138 Potassium 4.0 Chloride 100 Carbon Dioxide 31 BUN 47 H Creatinine 2.25 H Estimated GFR 24 L BUN/Creatinine Ratio 20.9 Glucose 156 H Lactate 0.8 Calcium 9.5 Magnesium Total Bilirubin 0.6 AST 32 ALT 20 Alkaline Phosphatase 55 Total Creatine Kinase Troponin I NT-Pro-B Natriuret Pep 90809 H Total Protein 6.9 Albumin 3.4 L Globulin 3.5 Albumin/Globulin Ratio 1.0 Lipase Procalcitonin Nasal Screen MRSA (PCR) Chlamy pneumoniae PCR Adenovirus (PCR) B. pertussis DNA (PCR) B.parapertussis DNA PCR Coronavirus OC43 (PCR) Coronavirus HKU1 (PCR) Coronavirus 229E (PCR) SARS-CoV-2 (PCR) Coronavirus NL63 (PCR) Human Metapneumovir PCR Influenza Type A (PCR) Influenza Type B (PCR) M. pneumoniae (PCR) Parainfluenza 1 (PCR) Parainfluenza 2 (PCR) Parainfluenza 3 (PCR) Parainfluenza 4 (PCR) RSV (PCR) Entero/Rhino (PCR) 09/19/22 06:15 WBC RBC Hgb Hct MCV MCH MCHC RDW Plt Count Neut % (Auto) Lymph % (Auto) [place] % (Auto) Eos % (Auto) Baso % (Auto) Neut # (Auto) Lymph # (Auto) [place] # (Auto) Eos # (Auto) Baso # (Auto) Sodium Potassium Chloride Carbon Dioxide BUN Creatinine Estimated GFR BUN/Creatinine Ratio Glucose Lactate Calcium Magnesium Total Bilirubin AST ALT Alkaline Phosphatase Total Creatine Kinase Troponin I 0.090 H NT-Pro-B Natriuret Pep Total Protein Albumin Globulin Albumin/Globulin Ratio Lipase Procalcitonin Nasal Screen MRSA (PCR) Chlamy pneumoniae PCR Adenovirus (PCR) B. pertussis DNA (PCR) B.parapertussis DNA PCR Coronavirus OC43 (PCR) Coronavirus HKU1 (PCR) Coronavirus 229E (PCR) SARS-CoV-2 (PCR) Coronavirus NL63 (PCR) Human Metapneumovir PCR Influenza Type A (PCR) Influenza Type B (PCR) M. pneumoniae (PCR) Parainfluenza 1 (PCR) Parainfluenza 2 (PCR) Parainfluenza 3 (PCR) Parainfluenza 4 (PCR) RSV (PCR) Entero/Rhino (PCR) [facility] Medical History Chronic hypoxemic respiratory failure COPD (chronic obstructive pulmonary disease) DM2 (diabetes mellitus, type 2) HTN (hypertension) Obesity PONCE (obstructive sleep apnea) Systolic and diastolic CHF, chronic Thyroiditis Surgical History S/P hernia surgery Family History Mother No pertinent past medical history Father No pertinent past medical history Social History household members: other Smoking Status: Former smoker Discharge Plan Discharge Plan Patient Disposition: SNF Transfer to: [facility] and Healthcare Provider Discharge Comment: 61 F admitted for CHF exacerbation and elevated troponin. Rapidly improved with diuresis. No changes to home medications recommended. I certify the postop hospital prison care is medically necessary on a continuing basis for any conditions for which he/ she received care during this hospitalization.: Yes The receiving facility has agreed to accept transfer and provide medical treatment.: Yes Discharge orders & Medications Prescriptions: Continued albuterol sulfate 90 mcg/actuation HFA aerosol inhaler 4 puff INHALATION Q4H PRN (Reason: Shortness Of Breath Or Wheezing) levothyroxine 175 mcg tablet 175 mcg PO DAILY potassium chloride 10 mEq tablet extended release 10 meq PO DAILY torsemide 10 mg tablet 10 mg PO DAILY bupropion HCl 150 mg tablet sustained-release 12 hr 150 mg PO BEDTIME sennosides [senna] 8.6 mg tablet 17.2 mg PO BEDTIME acetaminophen [Tylenol] 325 mg Tablet 650 mg PO TID trazodone 50 mg tablet 50 mg PO BEDTIME aspirin 81 mg Tablet,Delayed Release (Dr/Ec) 81 mg PO DAILY carvedilol 3.125 mg tablet 3.125 mg PO BID cyanocobalamin (vitamin B-12) 500 mcg Tablet 500 mcg PO DAILY meclizine 25 mg tablet 25 mg PO Q8HR PRN (Reason: Dizziness) ferrous sulfate 325 mg (65 mg iron) Tablet 325 mg PO DAILY fluoxetine 20 mg Tablet 20 mg PO DAILY lidocaine 5 % adhesive patch,medicated 1 patch topical DAILY Rx Instructions: to right bicep gabapentin 300 mg Capsule 300 mg PO BEDTIME montelukast 10 mg Tablet 10 mg PO DAILY nystatin 100,000 unit/gram Powder 1 applic TOPICAL BID PRN (Reason: Rash) insulin lispro [Humalog U-100 Insulin] 100 unit/mL Solution 3 unit SUBCUT TIDWM ondansetron 4 mg Tablet,Disintegrating 4 mg PO Q8H PRN (Reason: Nausea) fluticasone propionate 50 mcg/actuation [place],Suspension 2 spray INTRANASAL DAILY Rx Instructions: administer into each nostril loratadine 10 mg Tablet 10 mg PO DAILY rosuvastatin 40 mg Tablet 40 mg PO DAILY Spiriva with HandiHaler 18 mcg Capsule, W/Inhalation Device 1 cap INHALATION DAILY Rx Instructions: puncture 1 cap using device; one dose = 2 inhalations fenofibrate 160 mg Tablet 160 mg PO DAILY budesonide-formoterol 160-4.5 mcg/actuation Hfa Aerosol Inhaler 2 puff INHALATION Q4H PRN (Reason: Wheezing) insulin glargine 100 unit/mL (3 mL) Insulin Pen 22 unit SUBCUT BID magnesium oxide 200 mg magnesium Tablet 200 mg PO DAILY Follow up/Referrals: Simone Rodgers MD [Primary Care Provider] - Discharge Health Status Multidrug resistant organism: No MDRO Precautions: [place] Diet/Activity/Treatments Diet: Diet as Tolerated, Carb-consistent/Diabetic and Low-sodium Liquid consistency: Normal/Thin Food texture: Blenderized or pureed Diet comment: Minced and moist per most recent [employer] eval here, continue most recent diet Activity: No restrictions Visit Report/Discharge Packet Stand Alone Forms: Patient Portal/API, Stroke Signs & Symptoms Discharge Data Primary Care Provider: Simone Rodgers Attending Provider: Sary Story Admit Date/Time: 09/18/22 23:57 Quality VTE Deep Vein Thrombosis/Pulmonary Embolism Present on Admission: No
[2022-09-20 03:41] LABS: x Labcorp Estim. Avg Glu (eAG) 200 mg/dL (.); x Labcorp Hemoglobin A1c 8.6 % (4.8-5.6)
== END 2022-09-19 15:40 ==
LOC: ED 23:31 → AC 23:57 → ICU 09-19 00:21
PROVIDERS: Admitting Provider Nurse Practitioner Family; Emergency Provider Emergency Medicine; PCP Family Medicine; Visit Provider Nurse Practitioner Family
DX: J96.21 Acute and chronic respiratory failure with hypoxia (principal); I13.0 Hypertensive heart and chronic kidney disease with heart failure and stage 1 through stage 4 chronic kidney disease, or unspecified chronic kidney disease; I50.23 Acute on chronic systolic (congestive) heart failure; E66.01 Morbid (severe) obesity due to excess calories; N18.30 Chronic kidney disease, stage 3 unspecified; E11.22 Type 2 diabetes mellitus with diabetic chronic kidney disease; E11.42 Type 2 diabetes mellitus with diabetic polyneuropathy; J44.9 Chronic obstructive pulmonary disease, unspecified; I10 Essential (primary) hypertension; G47.33 Obstructive sleep apnea (adult) (pediatric); Z68.42 Body mass index [BMI] 45.0-49.9, adult; Z79.4 Long term (current) use of insulin; E78.5 Hyperlipidemia, unspecified; E03.9 Hypothyroidism, unspecified; Z20.822 Contact with and (suspected) exposure to COVID-19
CPT/HCPCS: 36415; 71045; 80053; 82550; 82962; 83036; 83605; 83690; 83735; 83880; 84145; 84484; 85025; 87040; 87077; 87086; 87633; 87797; 93005; 93010; 94640; 94660; 96365; 96372; 96375; 99285; G0378; J1650; J1815; J1940

== ENCOUNTER → 2022-09-23 14:43 | Outpatient (ROUT) | payer OTHER, MEDICAID, SELFPAY ==
[2022-05-26 19:34] VITALS: RESP 0
[2022-08-21 08:18] VITALS: PULSE 56; RESP 16; O2SAT 97
[2022-09-19 00:50] VITALS: BMI 48.6
[2022-09-23 14:54] LABS: Appearance Urine UA CLEAR; Bilirubin Urine UA NEGATIVE (NEGATIVE); Color Urine UA YELLOW; Glucose Urine UA NEGATIVE (Negative); Ketones Urine UA NEGATIVE (NEGATIVE); Leukocyte Esterase Urine UA 3+ (NEGATIVE); Nitrite Urine UA NEGATIVE (Negative); Occult Blood Urine UA 2+ (Negative); Protein Urine UA 2+ (Negative); Specific Gravity Urine UA 1.015 (1.000-1.035); Urobilinogen Urine UA 0.2 E.U./dL (0.2)
[2022-09-23 15:04] LABS: RBC Urine 10-30/HPF (0-5/HPF)
[2022-09-23 15:05] LABS: Bacteria Urine Many (>30); Culture Indicated Urine Specimen Cultured; Squamous Epithelial Cell Urine 1-5 /HPF (0-5/HPF); WBC Urine >100/HPF (0-5/HPF)
== END ==
PROVIDERS: PCP Family Medicine; Visit Provider Internal Medicine
DX: J96.01 Acute respiratory failure with hypoxia (principal); J96.02 Acute respiratory failure with hypercapnia; I50.23 Acute on chronic systolic (congestive) heart failure; I11.0 Hypertensive heart disease with heart failure; N17.9 Acute kidney failure, unspecified; E11.9 Type 2 diabetes mellitus without complications
CPT/HCPCS: 81001; 87077; 87086; 87186

== ENCOUNTER → 2022-10-28 12:12 | Outpatient (ROUT) | payer OTHER, MEDICAID, SELFPAY ==
[2022-05-26 19:34] VITALS: RESP 0
[2022-08-21 08:18] VITALS: PULSE 56; RESP 16; O2SAT 97
[2022-09-19 00:50] VITALS: BMI 48.6
[2022-10-28 12:50] LABS: Appearance Urine UA Cloudy; Color Urine UA Straw
[2022-10-28 12:51] LABS: Glucose Urine UA 0.25 g/dL (Negative); Protein Urine UA 1+ (Negative); Specific Gravity Urine UA 1.015 (1.000-1.035); pH Urine UA 7 (4.5-8.0)
[2022-10-28 12:52] LABS: Bacteria Urine Many (>30); Bilirubin Urine UA Negative (NEGATIVE); Culture Indicated Urine Specimen Cultured; Ketones Urine UA NEGATIVE (NEGATIVE); Leukocyte Esterase Urine UA 4+ (NEGATIVE); Nitrite Urine UA POSITIVE (Negative); Occult Blood Urine UA Negative (Negative); RBC Urine 1-5/HPF (0-5/HPF); Squamous Epithelial Cell Urine 1-5 /HPF (0-5/HPF); Urobilinogen Urine UA Normal E.U./dL (0.2); WBC Urine 30-100/HPF (0-5/HPF)
== END ==
PROVIDERS: PCP Family Medicine; Visit Provider Internal Medicine
DX: J96.01 Acute respiratory failure with hypoxia (principal); J96.02 Acute respiratory failure with hypercapnia; I50.23 Acute on chronic systolic (congestive) heart failure; I11.0 Hypertensive heart disease with heart failure; E11.9 Type 2 diabetes mellitus without complications; N17.9 Acute kidney failure, unspecified
CPT/HCPCS: 81001; 87077; 87086; 87186

== ENCOUNTER → 2022-12-04 15:17 | Outpatient (ROUT) | payer OTHER, MEDICAID, SELFPAY ==
[2022-05-26 19:34] VITALS: RESP 0
[2022-08-21 08:18] VITALS: PULSE 56; RESP 16; O2SAT 97
[2022-09-19 00:50] VITALS: BMI 48.6
[2022-12-04 15:37] LABS: Appearance Urine UA CLOUDY; Bilirubin Urine UA NEGATIVE (NEGATIVE); Color Urine UA YELLOW; Glucose Urine UA TRACE g/dL (Negative); Ketones Urine UA NEGATIVE (NEGATIVE); Leukocyte Esterase Urine UA 3+ (NEGATIVE); Nitrite Urine UA POSITIVE (Negative); Occult Blood Urine UA TRACE-INTACT (Negative); Protein Urine UA NEGATIVE (Negative); Specific Gravity Urine UA 1.015 (1.000-1.035); Urobilinogen Urine UA 0.2 E.U./dL (0.2)
[2022-12-04 15:52] LABS: pH Urine UA 5.5 (4.5-8.0)
[2022-12-04 16:19] LABS: Bacteria Urine Many (>30); Culture Indicated Urine Specimen Cultured; RBC Urine 0-1/HPF (0-5/HPF); Squamous Epithelial Cell Urine 0-1 /HPF (0-5/HPF); WBC Urine >100/HPF (0-5/HPF)
== END ==
PROVIDERS: PCP Family Medicine; Visit Provider Internal Medicine
DX: N17.9 Acute kidney failure, unspecified (principal)
CPT/HCPCS: 81001; 87070; 87077; 87086; 87186; 87205

== ENCOUNTER 2023-01-05 10:57 | Inpatient (IN) | payer MEDICAID, OTHER, SELFPAY ==
[2022-05-26 19:34] VITALS: RESP 0
[2022-08-21 08:18] VITALS: PULSE 56; RESP 16; O2SAT 97
[2022-09-19 00:50] VITALS: BMI 48.6
[2023-01-05] VITALS (56 sets, daily range): BP systolic 95–180; BP diastolic 52–91; PULSE 95–125; RESP 20–57; TEMP 37.4–39.9; O2SAT 91–96; BMI 46.0
--- NOTE | 2023-01-05 11:11 | DI.CT.S_ITS ---
PROCEDURE: CT HEAD/BRAIN WO CON INDICATIONS: confused TECHNIQUE: Noncontrast 4.5 mm thick angled axial sections acquired from the foramen magnum to the vertex, with coronal and sagittal reformats. For radiation dose reduction, the following was used: automated exposure control, adjustment of mA and/or kV according to patient size. COMPARISON: [facility], CT, CT HEAD/BRAIN WO CON, 05/25/2022, 10:27. FINDINGS: Image quality: Excellent. CSF spaces: Basal cisterns are patent. No extra-axial fluid collections. The ventricles are symmetric in size and shape. Brain: No intracranial bleeds or masses. There is cerebral volume loss for age, with resultant ventricular and sulcal prominence. The degree of ventriculomegaly is unchanged compared to the prior study on 05/25/2022. There are periventricular and deep white matter chronic small vessel ischemic changes. There is intracranial internal carotid artery atherosclerosis. Skull and face: Calvarium and visualized facial bones appear intact, without suspicious lesions. Sinuses: Visualized sinuses and mastoids are clear. IMPRESSION: 1. Ventriculomegaly, similar to the prior study on 05/25/2022. Consider normal pressure hydrocephalus. 2. No acute intracranial abnormality. Dictated by: Jarett Tse M.D. on 01/05/2023 at 12:25 Approved by: Jarett Tse M.D. on 01/05/2023 at 12:28
--- NOTE | 2023-01-05 11:12 | DI.RAD.S_ITS ---
PROCEDURE: XR CHEST 1V INDICATIONS: eval for PNA TECHNIQUE: One view of the chest was acquired. COMPARISON: [facility], , XR CHEST 1V, 09/18/2022, 18:28. FINDINGS: Surgical changes and devices: None. Lungs and pleura: Right lower lung airspace opacity. Blunting of the left costophrenic angle consistent with a pleural effusion, larger compared to 09/18/2022. Mediastinum: Mediastinal contours appear normal. Heart size is normal. Bones and chest wall: No suspicious bony lesions. Overlying soft tissues appear unremarkable. IMPRESSION: 1. Right lower lobe diffuse airspace opacity consistent with pneumonia. 2. Left pleural effusion. Dictated by: Jartet Tse M.D. on 01/05/2023 at 12:11 Approved by: Jarett Tse M.D. on 01/05/2023 at 12:12
--- NOTE | 2023-01-05 11:22 | ED_ITS ---
HPI - Sepsis <Triny Sorenson PA-C - Last Filed: 01/05/23 14:57> General Chief Complaint: Shortness of Breath/Dyspnea Mode of arrival: EMS Source: EMS Limitations: altered mental status Evaluation Sepsis Screen: Possible Severe Sepsis Risk Sepsis Infection Criteria Present: Documented Infection Narrative: Patient is a 61-year-old female with history of morbid obesity, COPD on 2 L nasal cannula at home, CHF, diabetes type 2 presents with fever, AMS and increased work of breathing. She lives in long-term care. He recently had a urinary tract infection 12/04/22 in our chart but does not appear to currently be on any antibiotics per her med list from the facility. Several recent urinary cultures show significant resistance patterns. By report, she was at her baseline yesterday. On arrival to the ER, she is on 3 L with saturations in the low 90s, tachypneic with increased work of breathing and confused. She was previously hospitalized for CHF exacerbation in September and prior to that, required intubation and ICU hospitalization for acute respiratory failure in July of 2022. She is full code per her documentation. Review of Systems <Triny Sorenson PA-C - Last Filed: 01/05/23 14:57> Review of Systems ROS Unobtainable: All systems reviewed & are unremarkable except as noted in HPI and below Patient History <Triny Sorenson PA-C - Last Filed: 01/05/23 14:57> Medical History PONCE (obstructive sleep apnea) Chronic hypoxemic respiratory failure COPD (chronic obstructive pulmonary disease) DM2 (diabetes mellitus, type 2) HTN (hypertension) Thyroiditis Systolic and diastolic CHF, chronic Obesity Surgical History S/P hernia surgery Family History Mother No pertinent past medical history Father No pertinent past medical history Social History household members: other Smoking Status: Former smoker Smoking Status: Former smoker alcohol intake frequency: other Substance Use Type: does not use Exam <Triny Sorenson PA-C - Last Filed: 01/05/23 14:57> Narrative Exam Narrative: GENERAL: 62 year old patient appears stated age. Patient with tachypnea and increased work of breathing. NEURO: Believes she is at her long-term care facility when questioned, unable to respond to additional questions but her eyes are open and she attends to voice. HEAD: Atraumatic. Normocephalic. EYES: Pupils equal round and reactive. Extraocular motions intact. No scleral icterus. No injection or drainage. ENT: Nose without bleeding or purulent drainage. Airway patent. NECK: Trachea midline. Non tender CARDIOVASCULAR: Tachycardic rate, regular rhythm without murmur gallop or rub. No pedal edema. RESPIRATORY: Decreased air movement bilaterally, no appreciable wheeze or crackles. GASTROINTESTINAL: Patient expresses pain with palpation of the left upper and lower quadrants of her abdomen. SKIN: No rash or erythema of visible areas Initial Vital Signs Initial Vital Signs: Vital Signs Pulse Rate 125 H 01/05/23 11:01 Pulse Oximetry 93 01/05/23 11:01 Oxygen Delivery Method Nasal Cannula 01/05/23 11:01 Oxygen Flow Rate 3.5 01/05/23 11:01 <Romero Loaiza DO - Last Filed: 01/05/23 15:49> Initial Vital Signs Initial Vital Signs: Vital Signs Pulse Rate 125 H 01/05/23 11:01 Pulse Oximetry 93 01/05/23 11:01 Oxygen Delivery Method Nasal Cannula 01/05/23 11:01 Oxygen Flow Rate 3.5 01/05/23 11:01 Course <Triny Sorenson PA-C - Last Filed: 01/05/23 14:57> Orders Ordered: ED Orders 01/05/23 11:10 Complete Blood Count AUTO DIFF Stat Comprehensive Metabolic Panel Stat Lactate (Lactic Acid) Stat Lipase Stat Magnesium Stat NT-proBNP (BNP-Adult 18+) Stat Procalcitonin Stat Troponin & CK Cardiac Panel Stat 01/05/23 11:11 CT head/brain wo con Stat 01/05/23 11:12 XR chest 1V Stat 01/05/23 11:13 RT Consult Eval and Treat Now 01/05/23 11:24 Respiratory Panel (Film Array) Stat 01/05/23 11:25 Blood Culture Stat 01/05/23 11:30 VBG [Venous Blood Gas] Stat 01/05/23 11:46 EKG-12 Lead Stat 01/05/23 12:15 Urinalysis and Microscopic Stat Urine Culture Stat Acetaminophen (Acetaminophen 325 Mg Tablet) 650 mg PO Q6H PRN PRN Reason: Fever/Mild Pain (1-3) Al Hydrox/Mg Hydrox/Simethicone (Mag Hydrox/Alum/Simeth 30 Ml Udc) 30 ml PO Q6HR PRN PRN Reason: Dyspepsia Albuterol (Albuterol Hfa Mdi 60 Puff/8 Gm Inhaler) 4 puff INH Q4H PRN PRN Reason: Shortness Of Breath Or Wheezing Calcium Carbonate (Calcium Carbonate 500 Mg Tab) 1,000 mg PO Q4HR PRN PRN Reason: Dyspepsia Docusate Sodium (Docusate 100 Mg Capsule) 100 mg PO BID [facility] Heparin Sodium (Porcine) (Heparin 5,000 Unit/Ml Vial) 5,000 unit SUBCUT BID [facility] Sodium Chloride (Normal Saline 0.9%) 1,000 mls @ 50 mls/hr IV CONT [facility] Last Infusion: 01/05/23 14:44 Dose: 0 mls/hr Documented By: Admin: 01/05/23 12:32 Dose: 125 mls/hr Documented By: PAVEL Dextrose (D10w) 100 mls @ 1,200 mls/hr IV PRN PRN PRN Reason: Hypoglycemia Piperacillin Sod/Tazobactam (Sod 3.375 gm/ Sodium Chloride) 100 mls @ 25 mls/hr IV Q8H [facility] Insulin Glargine (Insulin Glargine 100 Unit/Ml 3ml Pen) 22 unit SUBCUT 0800 [facility] Insulin Glargine (Insulin Glargine 100 Unit/Ml 3ml Pen) 22 unit SUBCUT 2100 [facility] Insulin Human Lispro (Insulin Lispro 100 Unit/Ml 3ml Vial) 0 unit SUBCUT ACHS JAY JAY; Protocol Naloxone HCl (Naloxone 0.4 Mg/Ml Vial) 0.2 mg IV Q2MIN PRN PRN Reason: Opiate Reversal Ondansetron HCl (Ondansetron 4 Mg Odt) 4 mg PO Q8HR PRN PRN Reason: Nausea And Vomiting Discontinued Medications Albuterol/Ipratropium (Albuterol/Ipratropium 3 Ml Ampul) 3 ml INH Q20M [facility] Stop: 01/05/23 11:56 Albuterol/Ipratropium (Albuterol/Ipratropium 3 Ml Ampul) 3 ml INH NOW ONE Stop: 01/05/23 11:16 Last Admin: 01/05/23 11:36 Dose: 3 ml Documented By: DUNG Furosemide (Furosemide 40 Mg/4 Ml Vial) 40 mg IV NOW ONE Stop: 01/05/23 11:54 Last Admin: 01/05/23 12:20 Dose: 40 mg Documented By: PAVEL Piperacillin Sod/Tazobactam (Sod 4.5 gm/ Sodium Chloride) 100 mls @ 200 mls/hr IV NOW ONE Stop: 01/05/23 11:12 Last Infusion: 01/05/23 14:45 Dose: Infused Documented By: Admin: 01/05/23 13:43 Dose: 200 mls/hr Documented By: PAVEL Vancomycin HCl (Vancomycin) 1,000 mg in 200 mls @ 200 mls/hr IV NOW ONE Stop: 01/05/23 12:10 Last Admin: 01/05/23 13:14 Dose: Not Given Documented By: CANDELARIO Acetaminophen (Ofirmev) 1,000 mg in 100 mls @ 400 mls/hr IV NOW ONE Stop: 01/05/23 11:30 Last Infusion: 01/05/23 12:41 Dose: Infused Documented By: Admin: 01/05/23 12:00 Dose: 400 mls/hr Documented By: PAVEL Azithromycin 500 mg/ Dextrose 250 mls @ 250 mls/hr IV NOW ONE Stop: 01/05/23 12:23 Last Infusion: 01/05/23 13:44 Dose: Infused Documented By: Admin: 01/05/23 12:31 Dose: 250 mls/hr Documented By: PAVEL Sodium Chloride (Normal Saline 0.9%) 500 mls @ 1,000 mls/hr IV BOLUS ONE Stop: 01/05/23 14:49 Sodium Chloride (Normal Saline 0.45%) 1,000 mls @ 50 mls/hr IV CONT JAY JAY Vital Signs Vital signs: Vital Signs - 8 hr 01/05/23 11:01 01/05/23 11:02 01/05/23 11:02 Temperature Pulse Rate 125 H 121 H Respiratory Rate Blood Pressure 136/87 Pulse Oximetry 93 91 Oxygen Delivery Method Nasal Cannula Oxygen Flow Rate 3.5 01/05/23 11:08 01/05/23 11:10 01/05/23 11:10 Temperature 103.2 F H Pulse Rate 123 H 121 H Respiratory Rate 25 H Blood Pressure 145/91 H 145/91 H Pulse Oximetry 91 91 Oxygen Delivery Method Nasal Cannula Nasal Cannula Oxygen Flow Rate 3.5 3.5 01/05/23 11:23 01/05/23 11:23 01/05/23 11:30 Temperature Pulse Rate 121 H 117 H Respiratory Rate Blood Pressure 139/81 Pulse Oximetry 91 91 Oxygen Delivery Method Nasal Cannula Oxygen Flow Rate 3.5 01/05/23 11:45 01/05/23 11:46 01/05/23 11:46 Temperature Pulse Rate 115 H 115 H Respiratory Rate Blood Pressure 121/77 Pulse Oximetry 92 92 Oxygen Delivery Method Oxygen Flow Rate 01/05/23 11:50 01/05/23 11:50 01/05/23 11:52 Temperature Pulse Rate 115 H 113 H Respiratory Rate Blood Pressure 122/80 Pulse Oximetry 92 92 Oxygen Delivery Method Oxygen Flow Rate 01/05/23 11:52 01/05/23 12:00 01/05/23 12:01 Temperature Pulse Rate 112 H 113 H Respiratory Rate 32 H 40 H Blood Pressure 115/74 Pulse Oximetry 93 93 Oxygen Delivery Method Nasal Cannula Oxygen Flow Rate 3.5 01/05/23 12:01 01/05/23 12:10 01/05/23 12:10 Temperature Pulse Rate 110 H Respiratory Rate 40 H Blood Pressure 180/71 H 130/60 Pulse Oximetry 93 Oxygen Delivery Method Oxygen Flow Rate 01/05/23 12:22 01/05/23 12:23 01/05/23 12:23 Temperature 103.1 F H Pulse Rate 109 H 108 H Respiratory Rate Blood Pressure 126/69 Pulse Oximetry 93 93 Oxygen Delivery Method Oxygen Flow Rate 01/05/23 12:30 01/05/23 12:30 01/05/23 12:40 Temperature 103.3 F H Pulse Rate 108 H Respiratory Rate 40 H Blood Pressure 127/70 123/66 Pulse Oximetry 93 Oxygen Delivery Method Nasal Cannula Oxygen Flow Rate 3.5 01/05/23 12:40 01/05/23 12:43 01/05/23 12:45 Temperature 103.3 F H 103.1 F H Pulse Rate 108 H 123 H 107 H Respiratory Rate 39 H 38 H 35 H Blood Pressure Pulse Oximetry 92 92 93 Oxygen Delivery Method Nasal Cannula Oxygen Flow Rate 2 01/05/23 12:50 01/05/23 12:50 01/05/23 13:00 Temperature 103.1 F H 102.9 F H Pulse Rate 106 H 107 H Respiratory Rate 34 H 35 H Blood Pressure 140/61 Pulse Oximetry 93 92 Oxygen Delivery Method Nasal Cannula Oxygen Flow Rate 3.5 01/05/23 13:01 01/05/23 13:01 01/05/23 13:10 Temperature 102.9 F H 102.7 F H Pulse Rate 107 H 104 H Respiratory Rate 32 H 33 H Blood Pressure 133/66 Pulse Oximetry 93 93 Oxygen Delivery Method Oxygen Flow Rate 01/05/23 13:15 01/05/23 13:17 01/05/23 13:17 Temperature 102.6 F H 102.6 F H Pulse Rate 104 H 103 H Respiratory Rate 33 H 34 H Blood Pressure 114/57 L Pulse Oximetry 94 93 Oxygen Delivery Method Nasal Cannula Oxygen Flow Rate 3.5 01/05/23 13:20 01/05/23 13:20 01/05/23 13:30 Temperature 102.4 F H Pulse Rate 103 H Respiratory Rate 36 H Blood Pressure 112/64 109/60 Pulse Oximetry 92 Oxygen Delivery Method Nasal Cannula Oxygen Flow Rate 3.5 01/05/23 13:30 01/05/23 13:34 01/05/23 13:34 Temperature 102.4 F H 102.2 F H Pulse Rate 101 H 101 H Respiratory Rate 34 H 33 H Blood Pressure 111/65 Pulse Oximetry 94 94 Oxygen Delivery Method Nasal Cannula Oxygen Flow Rate 3.5 <Romero Loaiza, DO - Last Filed: 01/05/23 15:49> Orders Ordered: ED Orders 01/05/23 11:10 Complete Blood Count AUTO DIFF Stat Comprehensive Metabolic Panel Stat Lactate (Lactic Acid) Stat Lipase Stat Magnesium Stat NT-proBNP (BNP-Adult 18+) Stat Procalcitonin Stat Troponin & CK Cardiac Panel Stat 01/05/23 11:11 CT head/brain wo con Stat 01/05/23 11:12 XR chest 1V Stat 01/05/23 11:13 RT Consult Eval and Treat Now 01/05/23 11:24 Respiratory Panel (Film Array) Stat 01/05/23 11:25 Blood Culture Stat 01/05/23 11:30 VBG [Venous Blood Gas] Stat 01/05/23 11:46 EKG-12 Lead Stat 01/05/23 12:15 Urinalysis and Microscopic Stat Urine Culture Stat Acetaminophen (Acetaminophen 325 Mg Tablet) 650 mg PO Q6H PRN PRN Reason: Fever/Mild Pain (1-3) Al Hydrox/Mg Hydrox/Simethicone (Mag Hydrox/Alum/Simeth 30 Ml Udc) 30 ml PO Q6HR PRN PRN Reason: Dyspepsia Albuterol (Albuterol Hfa Mdi 60 Puff/8 Gm Inhaler) 4 puff INH Q4H PRN PRN Reason: Shortness Of Breath Or Wheezing Calcium Carbonate (Calcium Carbonate 500 Mg Tab) 1,000 mg PO Q4HR PRN PRN Reason: Dyspepsia Docusate Sodium (Docusate 100 Mg Capsule) 100 mg PO BID [facility] Heparin Sodium (Porcine) (Heparin 5,000 Unit/Ml Vial) 5,000 unit SUBCUT BID [facility] Sodium Chloride (Normal Saline 0.9%) 1,000 mls @ 50 mls/hr IV CONT [facility] Last Infusion: 01/05/23 14:44 Dose: 0 mls/hr Documented By: Admin: 01/05/23 12:32 Dose: 125 mls/hr Documented By: PAVEL Dextrose (D10w) 100 mls @ 1,200 mls/hr IV PRN PRN PRN Reason: Hypoglycemia Piperacillin Sod/Tazobactam (Sod 3.375 gm/ Sodium Chloride) 100 mls @ 25 mls/hr IV Q8H [facility] Insulin Glargine (Insulin Glargine 100 Unit/Ml 3ml Pen) 22 unit SUBCUT 0800 [facility] Insulin Glargine (Insulin Glargine 100 Unit/Ml 3ml Pen) 22 unit SUBCUT 2100 [facility] Insulin Human Lispro (Insulin Lispro 100 Unit/Ml 3ml Vial) 0 unit SUBCUT ACHS JAY JAY; Protocol Naloxone HCl (Naloxone 0.4 Mg/Ml Vial) 0.2 mg IV Q2MIN PRN PRN Reason: Opiate Reversal Ondansetron HCl (Ondansetron 4 Mg Odt) 4 mg PO Q8HR PRN PRN Reason: Nausea And Vomiting Discontinued Medications Albuterol/Ipratropium (Albuterol/Ipratropium 3 Ml Ampul) 3 ml INH Q20M [facility] Stop: 01/05/23 11:56 Albuterol/Ipratropium (Albuterol/Ipratropium 3 Ml Ampul) 3 ml INH NOW ONE Stop: 01/05/23 11:16 Last Admin: 01/05/23 11:36 Dose: 3 ml Documented By: DUNG Furosemide (Furosemide 40 Mg/4 Ml Vial) 40 mg IV NOW ONE Stop: 01/05/23 11:54 Last Admin: 01/05/23 12:20 Dose: 40 mg Documented By: PAVEL Piperacillin Sod/Tazobactam (Sod 4.5 gm/ Sodium Chloride) 100 mls @ 200 mls/hr IV NOW ONE Stop: 01/05/23 11:12 Last Infusion: 01/05/23 14:45 Dose: Infused Documented By: Admin: 01/05/23 13:43 Dose: 200 mls/hr Documented By: PAVEL Vancomycin HCl (Vancomycin) 1,000 mg in 200 mls @ 200 mls/hr IV NOW ONE Stop: 01/05/23 12:10 Last Admin: 01/05/23 13:14 Dose: Not Given Documented By: CANDELARIO Acetaminophen (Ofirmev) 1,000 mg in 100 mls @ 400 mls/hr IV NOW ONE Stop: 01/05/23 11:30 Last Infusion: 01/05/23 12:41 Dose: Infused Documented By: Admin: 01/05/23 12:00 Dose: 400 mls/hr Documented By: PAVEL Azithromycin 500 mg/ Dextrose 250 mls @ 250 mls/hr IV NOW ONE Stop: 01/05/23 12:23 Last Infusion: 01/05/23 13:44 Dose: Infused Documented By: Admin: 01/05/23 12:31 Dose: 250 mls/hr Documented By: PAVEL Sodium Chloride (Normal Saline 0.9%) 500 mls @ 1,000 mls/hr IV BOLUS ONE Stop: 01/05/23 14:49 Sodium Chloride (Normal Saline 0.45%) 1,000 mls @ 50 mls/hr IV CONT JAY JAY Vital Signs Vital signs: Vital Signs - 8 hr 01/05/23 11:01 01/05/23 11:02 01/05/23 11:02 Temperature Pulse Rate 125 H 121 H Respiratory Rate Blood Pressure 136/87 Pulse Oximetry 93 91 Oxygen Delivery Method Nasal Cannula Oxygen Flow Rate 3.5 01/05/23 11:08 01/05/23 11:10 01/05/23 11:10 Temperature 103.2 F H Pulse Rate 123 H 121 H Respiratory Rate 25 H Blood Pressure 145/91 H 145/91 H Pulse Oximetry 91 91 Oxygen Delivery Method Nasal Cannula Nasal Cannula Oxygen Flow Rate 3.5 3.5 01/05/23 11:23 01/05/23 11:23 01/05/23 11:30 Temperature Pulse Rate 121 H 117 H Respiratory Rate Blood Pressure 139/81 Pulse Oximetry 91 91 Oxygen Delivery Method Nasal Cannula Oxygen Flow Rate 3.5 01/05/23 11:45 01/05/23 11:46 01/05/23 11:46 Temperature Pulse Rate 115 H 115 H Respiratory Rate Blood Pressure 121/77 Pulse Oximetry 92 92 Oxygen Delivery Method Oxygen Flow Rate 01/05/23 11:50 01/05/23 11:50 01/05/23 11:52 Temperature Pulse Rate 115 H 113 H Respiratory Rate Blood Pressure 122/80 Pulse Oximetry 92 92 Oxygen Delivery Method Oxygen Flow Rate 01/05/23 11:52 01/05/23 12:00 01/05/23 12:01 Temperature Pulse Rate 112 H 113 H Respiratory Rate 32 H 40 H Blood Pressure 115/74 Pulse Oximetry 93 93 Oxygen Delivery Method Nasal Cannula Oxygen Flow Rate 3.5 01/05/23 12:01 01/05/23 12:10 01/05/23 12:10 Temperature Pulse Rate 110 H Respiratory Rate 40 H Blood Pressure 180/71 H 130/60 Pulse Oximetry 93 Oxygen Delivery Method Oxygen Flow Rate 01/05/23 12:22 01/05/23 12:23 01/05/23 12:23 Temperature 103.1 F H Pulse Rate 109 H 108 H Respiratory Rate Blood Pressure 126/69 Pulse Oximetry 93 93 Oxygen Delivery Method Oxygen Flow Rate 01/05/23 12:30 01/05/23 12:30 01/05/23 12:40 Temperature 103.3 F H Pulse Rate 108 H Respiratory Rate 40 H Blood Pressure 127/70 123/66 Pulse Oximetry 93 Oxygen Delivery Method Nasal Cannula Oxygen Flow Rate 3.5 01/05/23 12:40 01/05/23 12:43 01/05/23 12:45 Temperature 103.3 F H 103.1 F H Pulse Rate 108 H 123 H 107 H Respiratory Rate 39 H 38 H 35 H Blood Pressure Pulse Oximetry 92 92 93 Oxygen Delivery Method Nasal Cannula Oxygen Flow Rate 2 10/19/23 12:50 01/05/23 12:50 01/05/23 13:00 Temperature 103.1 F H 102.9 F H Pulse Rate 106 H 107 H Respiratory Rate 34 H 35 H Blood Pressure 140/61 Pulse Oximetry 93 92 Oxygen Delivery Method Nasal Cannula Oxygen Flow Rate 3.5 01/05/23 13:01 01/05/23 13:01 01/05/23 13:10 Temperature 102.9 F H 102.7 F H Pulse Rate 107 H 104 H Respiratory Rate 32 H 33 H Blood Pressure 133/66 Pulse Oximetry 93 93 Oxygen Delivery Method Oxygen Flow Rate 01/05/23 13:15 01/05/23 13:17 01/05/23 13:17 Temperature 102.6 F H 102.6 F H Pulse Rate 104 H 103 H Respiratory Rate 33 H 34 H Blood Pressure 114/57 L Pulse Oximetry 94 93 Oxygen Delivery Method Nasal Cannula Oxygen Flow Rate 3.5 01/05/23 13:20 01/05/23 13:20 01/05/23 13:30 Temperature 102.4 F H Pulse Rate 103 H Respiratory Rate 36 H Blood Pressure 112/64 109/60 Pulse Oximetry 92 Oxygen Delivery Method Nasal Cannula Oxygen Flow Rate 3.5 01/05/23 13:30 01/05/23 13:34 01/05/23 13:34 Temperature 102.4 F H 102.2 F H Pulse Rate 101 H 101 H Respiratory Rate 34 H 33 H Blood Pressure 111/65 Pulse Oximetry 94 94 Oxygen Delivery Method Nasal Cannula Oxygen Flow Rate 3.5 Sepsis Evaluation (ED) <Triny Sorenson PA-C - Last Filed: 01/05/23 14:57> Triage Screening Sepsis Screen: Possible Severe Sepsis Risk Level 1 - Infection Sepsis Infection Criteria Present: Documented Infection Level 3 - Organ Dysfunction Sepsis Organ Dysfunction Criteria Present: New/Unexplained Change in Mental Status Response It is my opinion that his patient have a likely infectious etiology for meeting sepsis criteria: Does Fluid calculation based on 30 mL/kg within 1hr of criteria: Other (because of CHF, limited fluid resuscitation in setting of adequate perfusion and normal BP) Antibiotics initiated within 1 hr of Sepis dx: Yes Tissue Perfusion Reassessed within 6 hrs of infusion start time: Yes Date of Tissue Perfusion Reassessment completed: 01/05/23 Time Tissue Perfusion Reassessment completed: 13:15 MDM - Sepsis <Triny Sorenson PA-C - Last Filed: 01/05/23 14:57> Lab Data 01/05/23 11:10 01/05/23 11:10 Labs: Lab Results 01/05/23 01/05/23 01/05/23 Range/Units 11:10 11:24 11:30 WBC 15.8 H (4.5-11.0) X10^3/uL RBC 3.77 L (4.0-5.2) X10^6/uL Hgb 12.6 (12.0-16.0) g/dL Hct 37.2 (36-46) % MCV 98.6 (80-100) fL MCH 33.3 (26-34) PG MCHC 33.8 (30-36) % RDW 14.8 (11.6-14.8) % Plt Count 211 (150-400) X10^3/uL Neut % (Auto) 87.0 H (50-75) % Lymph % (Auto) 6.2 L (25-40) % [place] % (Auto) 6.5 (3-14) % Eos % (Auto) 0.1 L (2-4) % Baso % (Auto) 0.2 (0-2) % Neut # (Auto) 48975 H (0345-5606) /uL Lymph # (Auto) 1000 L (3282-5000) /uL [place] # (Auto) 1000 H (0-900) /uL Eos # (Auto) 0 (0-450) /uL Baso # (Auto) 0 (0-100) /uL VBG pH 7.41 (7.33-7.43) VBG pCO2 48.8 (45-50) mmHg VBG pO2 30 L (35-45) mmHg VBG HCO3 31 H (24-28) mmol/L VBG Total CO2 32 H (24-29) mmol/L VBG O2 Saturation 57 L (70-75) % VBG Base Excess 6.0 H (0-4) mmol/L FiO2 28 Sodium 137 (137-145) mmol/L Potassium 4.5 (3.4-5.1) mmol/L Chloride 97 L (98-107) mmol/L Carbon Dioxide 28 (22-32) mmol/L BUN 52 H (7-17) mg/dL Creatinine 2.27 H (0.52-1.04) mg/dL Estimated GFR 24 L (>60) mL/min BUN/Creatinine Ratio 22.9 H (6-22) Glucose 295 H (80-110) mg/dL Lactate 1.1 (0.7-2.1) mmol/L Calcium 10.5 H (8.4-10.2) mg/dL Magnesium 2.1 (1.6-2.3) mg/dL Total Bilirubin 0.9 (0.2-1.3) mg/dL AST 34 (14-36) IU/L ALT 24 (<35) IU/L Alkaline Phosphatase 72 (38-126) U/L Total Creatine Kinase 115 (30-135) U/L Troponin I 0.182 H* (0.01-0.034) ng/mL NT-Pro-B Natriuret Pep 20689 H (<125) pg/mL Total Protein 8.1 (6.3-8.2) g/dL Albumin 4.2 (3.5-5.0) g/dL Globulin 3.9 (1.7-4.1) g/dL Albumin/Globulin Ratio 1.1 (1.0-2.8) Lipase 33 (23-300) U/L Procalcitonin 27.5 H (<0.5) ng/mL Urine Color Urine Appearance Urine pH (4.5-8.0) Ur Specific [place] (1.000-1.035) Urine Protein (Negative) Urine Glucose (UA) (Negative) g/dL Urine Ketones (NEGATIVE) Urine Occult Blood (Negative) Urine Nitrate (Negative) Urine Bilirubin (NEGATIVE) Urine Urobilinogen (0.2) E.U./dL Ur Leukocyte Esterase (NEGATIVE) Urine RBC (0-5/HPF) Urine WBC (0-5/HPF) Ur Squamous Epith Cells (0-5/HPF) Urine Bacteria (None) Ur Culture Indicated? Chlamy pneumoniae PCR Not detected (Not Detect) Adenovirus (PCR) Not detected (Not Detect) B.parapertussis DNA PCR Not detected (Not Detecte) Coronavirus OC43 (PCR) Not detected (Not Detect) Coronavirus HKU1 (PCR) Not detected (Not Detect) Coronavirus 229E (PCR) Not detected (Not Detect) SARS-CoV-2 (PCR) Not detected (Not Detecte) Coronavirus NL63 (PCR) Not detected (Not Detect) Human Metapneumovir PCR Not detected (Not Detect) Influenza Type A (PCR) Not detected (Not Detect) Influenza Type B (PCR) Not detected (Not Detect) M. pneumoniae (PCR) Not detected (Not Detect) Parainfluenza 1 (PCR) Not detected (Not Detect) Parainfluenza 2 (PCR) Not detected (Not Detect) Parainfluenza 3 (PCR) Not detected (Not Detect) Parainfluenza 4 (PCR) Not detected (Not Detect) RSV (PCR) Not detected (Not Detect) Entero/Rhino (PCR) Not detected (Not Detect) 01/05/23 Range/Units 12:15 WBC (4.5-11.0) X10^3/uL RBC (4.0-5.2) X10^6/uL Hgb (12.0-16.0) g/dL Hct (36-46) % MCV (80-100) fL MCH (26-34) PG MCHC (30-36) % RDW (11.6-14.8) % Plt Count (150-400) X10^3/uL Neut % (Auto) (50-75) % Lymph % (Auto) (25-40) % [place] % (Auto) (3-14) % Eos % (Auto) (2-4) % Baso % (Auto) (0-2) % Neut # (Auto) (7306-5318) /uL Lymph # (Auto) (3629-3998) /uL [place] # (Auto) (0-900) /uL Eos # (Auto) (0-450) /uL Baso # (Auto) (0-100) /uL VBG pH (7.33-7.43) VBG pCO2 (45-50) mmHg VBG pO2 (35-45) mmHg VBG HCO3 (24-28) mmol/L VBG Total CO2 (24-29) mmol/L VBG O2 Saturation (70-75) % VBG Base Excess (0-4) mmol/L FiO2 Sodium (137-145) mmol/L Potassium (3.4-5.1) mmol/L Chloride (98-107) mmol/L Carbon Dioxide (22-32) mmol/L BUN (7-17) mg/dL Creatinine (0.52-1.04) mg/dL Estimated GFR (>60) mL/min BUN/Creatinine Ratio (6-22) Glucose (80-110) mg/dL Lactate (0.7-2.1) mmol/L Calcium (8.4-10.2) mg/dL Magnesium (1.6-2.3) mg/dL Total Bilirubin (0.2-1.3) mg/dL AST (14-36) IU/L ALT (<35) IU/L Alkaline Phosphatase (38-126) U/L Total Creatine Kinase (30-135) U/L Troponin I (0.01-0.034) ng/mL NT-Pro-B Natriuret Pep (<125) pg/mL Total Protein (6.3-8.2) g/dL Albumin (3.5-5.0) g/dL Globulin (1.7-4.1) g/dL Albumin/Globulin Ratio (1.0-2.8) Lipase (23-300) U/L Procalcitonin (<0.5) ng/mL Urine Color Yellow Urine Appearance Sl cloudy Urine pH 6.0 (4.5-8.0) Ur Specific [place] 1.010 (1.000-1.035) Urine Protein 2+ H (Negative) Urine Glucose (UA) 3+ H (Negative) g/dL Urine Ketones Trace H (NEGATIVE) Urine Occult Blood 2+ H (Negative) Urine Nitrate Positive H (Negative) Urine Bilirubin Negative (NEGATIVE) Urine Urobilinogen 0.2 (0.2) E.U./dL Ur Leukocyte Esterase 3+ H (NEGATIVE) Urine RBC 1-5/hpf (0-5/HPF) Urine WBC >100/hpf H (0-5/HPF) Ur Squamous Epith Cells 0-1 /hpf (0-5/HPF) Urine Bacteria Many (>30) H (None) Ur Culture Indicated? Cult not indicated Chlamy pneumoniae PCR (Not Detect) Adenovirus (PCR) (Not Detect) B.parapertussis DNA PCR (Not Detecte) Coronavirus OC43 (PCR) (Not Detect) Coronavirus HKU1 (PCR) (Not Detect) Coronavirus 229E (PCR) (Not Detect) SARS-CoV-2 (PCR) (Not Detecte) Coronavirus NL63 (PCR) (Not Detect) Human Metapneumovir PCR (Not Detect) Influenza Type A (PCR) (Not Detect) Influenza Type B (PCR) (Not Detect) M. pneumoniae (PCR) (Not Detect) Parainfluenza 1 (PCR) (Not Detect) Parainfluenza 2 (PCR) (Not Detect) Parainfluenza 3 (PCR) (Not Detect) Parainfluenza 4 (PCR) (Not Detect) RSV (PCR) (Not Detect) Entero/Rhino (PCR) (Not Detect) Point of Care Testing Glucose POC 332 Imaging Data Chest x-ray: Radiologist's Impression: PROCEDURE: XR CHEST 1V INDICATIONS: eval for PNA TECHNIQUE: One view of the chest was acquired. COMPARISON: Merged With [facility], CR, XR CHEST 1V, 09/18/2022, 18:28. FINDINGS: Surgical changes and devices: None. Lungs and pleura: Right lower lung airspace opacity. Blunting of the left costophrenic angle consistent with a pleural effusion, larger compared to 09/18/2022. Mediastinum: Mediastinal contours appear normal. Heart size is normal. Bones and chest wall: No suspicious bony lesions. Overlying soft tissues appear unremarkable. IMPRESSION: 1. Right lower lobe diffuse airspace opacity consistent with pneumonia. 2. Left pleural effusion. Dictated by: Jarett Tse M.D. on 01/05/2023 at 12:11 Approved by: Jarett Tse M.D. on 01/05/2023 at 12:12 CT scan - head: Radiologist's Impression: PROCEDURE: CT HEAD/BRAIN WO CON INDICATIONS: confused TECHNIQUE: Noncontrast 4.5 mm thick angled axial sections acquired from the foramen magnum to the vertex, with coronal and sagittal reformats. For radiation dose reduction, the following was used: automated exposure control, adjustment of mA and/or kV according to patient size. COMPARISON: Merged With [facility], CT, CT HEAD/BRAIN WO CON, 05/25/2022, 10:27. FINDINGS: Image quality: Excellent. CSF spaces: Basal cisterns are patent. No extra-axial fluid collections. The ventricles are symmetric in size and shape. Brain: No intracranial bleeds or masses. There is cerebral volume loss for age, with resultant ventricular and sulcal prominence. The degree of ventriculomegaly is unchanged compared to the prior study on 05/25/2022. There are periventricular and deep white matter chronic small vessel ischemic changes. There is intracranial internal carotid artery atherosclerosis. Skull and face: Calvarium and visualized facial bones appear intact, without suspicious lesions. Sinuses: Visualized sinuses and mastoids are clear. IMPRESSION: 1. Ventriculomegaly, similar to the prior study on 05/25/2022. Consider normal pressure hydrocephalus. 2. No acute intracranial abnormality. Dictated by: Jarett Tse M.D. on 01/05/2023 at 12:25 Approved by: Jarett Tse M.D. on 01/05/2023 at 12:28 ECG Data Interpretation: sinus tachycardia, rate 115, IA 174, QRS 116 MDM Narrative Medical decision making narrative: Multiple etiologies for patient's symptoms considered including, but not limited to: Sepsis, likely urinary source, CHF, acute respiratory failure, pneumonia Patient arrived febrile, tachycardic, tachypneic and with AMS. Labs with leukocytosis, normal lactate, renal function at baseline, elevated troponin and BNP (double previous). Suspect elevated troponin secondary to demand ischemia in the setting of sepsis. Discussed with cardiology Dr. Steiner who advised to treat sepsis, not likely ACS. CXR consistent with RLL pneumonia and left pleural effusion. Urine appears infected. Head CT completed due to AMS; no acute findings. Antibiotics administered after cultures collected; previous urine cultures with susceptibility to zosyn and added azithromycin for pneumonia coverage. Acetaminophen given for fever and gentle hydration with maintenance IV fluids given; in this patient without elevated lactate or hypotension and acute CHF exacerbation we will titrate fluids gently. On reassessment, patient is more alert and oriented to person place and year, tachycardia improved to 105 although still febrile, normotensive. Will admit to hospitalist for ongoing care. <Romero Loaiza, DO - Last Filed: 01/05/23 15:49> Lab Data Labs: Lab Results 01/05/23 01/05/23 01/05/23 Range/Units 11:10 11:24 11:30 WBC 15.8 H (4.5-11.0) X10^3/uL RBC 3.77 L (4.0-5.2) X10^6/uL Hgb 12.6 (12.0-16.0) g/dL Hct 37.2 (36-46) % MCV 98.6 (80-100) fL MCH 33.3 (26-34) PG MCHC 33.8 (30-36) % RDW 14.8 (11.6-14.8) % Plt Count 211 (150-400) X10^3/uL Neut % (Auto) 87.0 H (50-75) % Lymph % (Auto) 6.2 L (25-40) % [place] % (Auto) 6.5 (3-14) % Eos % (Auto) 0.1 L (2-4) % Baso % (Auto) 0.2 (0-2) % Neut # (Auto) 07370 H (1140-7043) /uL Lymph # (Auto) 1000 L (1881-9098) /uL [place] # (Auto) 1000 H (0-900) /uL Eos # (Auto) 0 (0-450) /uL Baso # (Auto) 0 (0-100) /uL VBG pH 7.41 (7.33-7.43) VBG pCO2 48.8 (45-50) mmHg VBG pO2 30 L (35-45) mmHg VBG HCO3 31 H (24-28) mmol/L VBG Total CO2 32 H (24-29) mmol/L VBG O2 Saturation 57 L (70-75) % VBG Base Excess 6.0 H (0-4) mmol/L FiO2 28 Sodium 137 (137-145) mmol/L Potassium 4.5 (3.4-5.1) mmol/L Chloride 97 L (98-107) mmol/L Carbon Dioxide 28 (22-32) mmol/L BUN 52 H (7-17) mg/dL Creatinine 2.27 H (0.52-1.04) mg/dL Estimated GFR 24 L (>60) mL/min BUN/Creatinine Ratio 22.9 H (6-22) Glucose 295 H (80-110) mg/dL Lactate 1.1 (0.7-2.1) mmol/L Calcium 10.5 H (8.4-10.2) mg/dL Magnesium 2.1 (1.6-2.3) mg/dL Total Bilirubin 0.9 (0.2-1.3) mg/dL AST 34 (14-36) IU/L ALT 24 (<35) IU/L Alkaline Phosphatase 72 (38-126) U/L Total Creatine Kinase 115 (30-135) U/L Troponin I 0.182 H* (0.01-0.034) ng/mL NT-Pro-B Natriuret Pep 93770 H (<125) pg/mL Total Protein 8.1 (6.3-8.2) g/dL Albumin 4.2 (3.5-5.0) g/dL Globulin 3.9 (1.7-4.1) g/dL Albumin/Globulin Ratio 1.1 (1.0-2.8) Lipase 33 (23-300) U/L Procalcitonin 27.5 H (<0.5) ng/mL Urine Color Urine Appearance Urine pH (4.5-8.0) Ur Specific [place] (1.000-1.035) Urine Protein (Negative) Urine Glucose (UA) (Negative) g/dL Urine Ketones (NEGATIVE) Urine Occult Blood (Negative) Urine Nitrate (Negative) Urine Bilirubin (NEGATIVE) Urine Urobilinogen (0.2) E.U./dL Ur Leukocyte Esterase (NEGATIVE) Urine RBC (0-5/HPF) Urine WBC (0-5/HPF) Ur Squamous Epith Cells (0-5/HPF) Urine Bacteria (None) Ur Culture Indicated? Chlamy pneumoniae PCR Not detected (Not Detect) Adenovirus (PCR) Not detected (Not Detect) B.parapertussis DNA PCR Not detected (Not Detecte) Coronavirus OC43 (PCR) Not detected (Not Detect) Coronavirus HKU1 (PCR) Not detected (Not Detect) Coronavirus 229E (PCR) Not detected (Not Detect) SARS-CoV-2 (PCR) Not detected (Not Detecte) Coronavirus NL63 (PCR) Not detected (Not Detect) Human Metapneumovir PCR Not detected (Not Detect) Influenza Type A (PCR) Not detected (Not Detect) Influenza Type B (PCR) Not detected (Not Detect) M. pneumoniae (PCR) Not detected (Not Detect) Parainfluenza 1 (PCR) Not detected (Not Detect) Parainfluenza 2 (PCR) Not detected (Not Detect) Parainfluenza 3 (PCR) Not detected (Not Detect) Parainfluenza 4 (PCR) Not detected (Not Detect) RSV (PCR) Not detected (Not Detect) Entero/Rhino (PCR) Not detected (Not Detect) 01/05/23 Range/Units 12:15 WBC (4.5-11.0) X10^3/uL RBC (4.0-5.2) X10^6/uL Hgb (12.0-16.0) g/dL Hct (36-46) % MCV (80-100) fL MCH (26-34) PG MCHC (30-36) % RDW (11.6-14.8) % Plt Count (150-400) X10^3/uL Neut % (Auto) (50-75) % Lymph % (Auto) (25-40) % [place] % (Auto) (3-14) % Eos % (Auto) (2-4) % Baso % (Auto) (0-2) % Neut # (Auto) (0166-1591) /uL Lymph # (Auto) (9774-1851) /uL [place] # (Auto) (0-900) /uL Eos # (Auto) (0-450) /uL Baso # (Auto) (0-100) /uL VBG pH (7.33-7.43) VBG pCO2 (45-50) mmHg VBG pO2 (35-45) mmHg VBG HCO3 (24-28) mmol/L VBG Total CO2 (24-29) mmol/L VBG O2 Saturation (70-75) % VBG Base Excess (0-4) mmol/L FiO2 Sodium (137-145) mmol/L Potassium (3.4-5.1) mmol/L Chloride (98-107) mmol/L Carbon Dioxide (22-32) mmol/L BUN (7-17) mg/dL Creatinine (0.52-1.04) mg/dL Estimated GFR (>60) mL/min BUN/Creatinine Ratio (6-22) Glucose (80-110) mg/dL Lactate (0.7-2.1) mmol/L Calcium (8.4-10.2) mg/dL Magnesium (1.6-2.3) mg/dL Total Bilirubin (0.2-1.3) mg/dL AST (14-36) IU/L ALT (<35) IU/L Alkaline Phosphatase (38-126) U/L Total Creatine Kinase (30-135) U/L Troponin I (0.01-0.034) ng/mL NT-Pro-B Natriuret Pep (<125) pg/mL Total Protein (6.3-8.2) g/dL Albumin (3.5-5.0) g/dL Globulin (1.7-4.1) g/dL Albumin/Globulin Ratio (1.0-2.8) Lipase (23-300) U/L Procalcitonin (<0.5) ng/mL Urine Color Yellow Urine Appearance Sl cloudy Urine pH 6.0 (4.5-8.0) Ur Specific [place] 1.010 (1.000-1.035) Urine Protein 2+ H (Negative) Urine Glucose (UA) 3+ H (Negative) g/dL Urine Ketones Trace H (NEGATIVE) Urine Occult Blood 2+ H (Negative) Urine Nitrate Positive H (Negative) Urine Bilirubin Negative (NEGATIVE) Urine Urobilinogen 0.2 (0.2) E.U./dL Ur Leukocyte Esterase 3+ H (NEGATIVE) Urine RBC 1-5/hpf (0-5/HPF) Urine WBC >100/hpf H (0-5/HPF) Ur Squamous Epith Cells 0-1 /hpf (0-5/HPF) Urine Bacteria Many (>30) H (None) Ur Culture Indicated? Cult not indicated Chlamy pneumoniae PCR (Not Detect) Adenovirus (PCR) (Not Detect) B.parapertussis DNA PCR (Not Detecte) Coronavirus OC43 (PCR) (Not Detect) Coronavirus HKU1 (PCR) (Not Detect) Coronavirus 229E (PCR) (Not Detect) SARS-CoV-2 (PCR) (Not Detecte) Coronavirus NL63 (PCR) (Not Detect) Human Metapneumovir PCR (Not Detect) Influenza Type A (PCR) (Not Detect) Influenza Type B (PCR) (Not Detect) M. pneumoniae (PCR) (Not Detect) Parainfluenza 1 (PCR) (Not Detect) Parainfluenza 2 (PCR) (Not Detect) Parainfluenza 3 (PCR) (Not Detect) Parainfluenza 4 (PCR) (Not Detect) RSV (PCR) (Not Detect) Entero/Rhino (PCR) (Not Detect) Point of Care Testing Glucose POC 332 Discharge Plan Departure Patient Disposition: Admitted As Inpatient Clinical Impression: Urinary tract infection, Confusion, Acute respiratory distress, Altered mental status, CHF (congestive heart failure), Community acquired pneumonia Pneumonia Qualifiers: Pneumonia type: due to unspecified organism Admit Date/Time: 01/05/23 13:37 Admit Provider: Ramon Howard ED Sign-out <Romero Loaiza DO - Last Filed: 01/05/23 15:49> Cosign ED Attending Cosmelaniature Attestation: I was involved in the patient's care. I agree with the history and physical admission to the hospital.
[2023-01-05 11:24] LABS: Add Manual Diff / Slide Review NO; Basophils Absolute Auto 0 /uL (0-100); Basophils Percent Auto 0.2 % (0-2); Eosinophils Absolute Auto 0 /uL (0-450); Eosinophils Percent Auto 0.1 % (2-4); Hematocrit 37.2 % (36-46); Hemoglobin 12.6 g/dL (12.0-16.0); Lymphocytes Absolute Auto 1000 /uL (1100-4500); Lymphocytes Percent Auto 6.2 % (25-40); Mean Corpuscular HGB Conc 33.8 % (30-36); Mean Corpuscular Hemoglobin 33.3 PG (26-34); Mean Corpuscular Volume 98.6 fL (80-100); Monocytes Absolute Auto 1000 /uL (0-900); Monocytes Percent Auto 6.5 % (3-14); Neutrophils Absolute Auto 13800 /uL (1500-7000); Platelet Count 211 X10^3/uL (150-400); Red Blood Cell Count 3.77 X10^6/uL (4.0-5.2); Red Cell Distribution Width 14.8 % (11.6-14.8); White Blood Cell Count 15.8 X10^3/uL (4.5-11.0)
[2023-01-05 11:31] LABS: Creatine Kinase 115 U/L (30-135); Lactate (Lactic Acid) 1.1 mmol/L (0.7-2.1); Lipase 33 U/L (23-300); Magnesium 2.1 mg/dL (1.6-2.3)
[2023-01-05 11:33] LABS: Alanine Aminotransferase 24 IU/L (<35); Albumin 4.2 g/dL (3.5-5.0); Albumin Globulin Ratio 1.1 (1.0-2.8); Alkaline Phosphatase 72 U/L (38-126); Aspartate Aminotransferase 34 IU/L (14-36); BUN Creatinine Ratio 22.9 (6-22); Bilirubin Total 0.9 mg/dL (0.2-1.3); Blood Urea Nitrogen 52 mg/dL (7-17); Calcium 10.5 mg/dL (8.4-10.2); Carbon Dioxide 28 mmol/L (22-32); Chloride 97 mmol/L (98-107); Estimated Glomerular Filt Rate 24 mL/min (>60); Globulin 3.9 g/dL (1.7-4.1); Glucose 295 mg/dL (80-110); HEMOLYSIS < 15 (0-50); Potassium 4.5 mmol/L (3.4-5.1); Sodium 137 mmol/L (137-145); Total Protein 8.1 g/dL (6.3-8.2)
[2023-01-05] MEDS: ALBUTEROL/IPRATROPIUM 3 ML AMPUL INH (11:36)
[2023-01-05 11:45] LABS: NT-proBNP (BNP-Adult 18+) 22400 pg/mL (<125)
[2023-01-05 11:49] LABS: Procalcitonin 27.5 ng/mL (<0.5); Troponin I 0.182 ng/mL (0.01-0.034)
[2023-01-05] MEDS: ACETAMINOPHEN IV 1,000 MG/100 ML VIAL 400 MG IV (12:00)
[2023-01-05] MEDS: FUROSEMIDE 40 MG/4 ML VIAL IV (12:20)
[2023-01-05 12:22] LABS: Adenovirus Not Detected (Not Detect); B. parapertussis Not Detected (Not Detecte); Bordetella pertussis Not Detected (Not Detect); Chlamydophila pneumoniae Not Detected (Not Detect); Coronavirus 229E Not Detected (Not Detect); Coronavirus HKU1 Not Detected (Not Detect); Coronavirus NL 63 Not Detected (Not Detect); Coronavirus OC43 Not Detected (Not Detect); Human Metapneumovirus Not Detected (Not Detect); Human Rhinovirus/Enterovirus Not Detected (Not Detect); Influenza A Not Detected (Not Detect); Influenza B Not Detected (Not Detect); Mycoplasma pneumoniae Not Detected (Not Detect); Parainfluenza Virus 1 Not Detected (Not Detect); Parainfluenza Virus 2 Not Detected (Not Detect); Parainfluenza Virus 3 Not Detected (Not Detect); Parainfluenza Virus 4 Not Detected (Not Detect); Respiratory Syncytial Virus Not Detected (Not Detect); SARS- CoV-2 Not Detected (Not Detecte)
[2023-01-05 12:26] LABS: Appearance Urine UA SL CLOUDY; Bilirubin Urine UA NEGATIVE (NEGATIVE); Color Urine UA YELLOW; Glucose Urine UA 3+ g/dL (Negative); Ketones Urine UA TRACE (NEGATIVE); Leukocyte Esterase Urine UA 3+ (NEGATIVE); Nitrite Urine UA POSITIVE (Negative); Occult Blood Urine UA 2+ (Negative); Protein Urine UA 2+ (Negative); Urobilinogen Urine UA 0.2 E.U./dL (0.2)
[2023-01-05] MEDS: AZITHROMYCIN 500 MG in DEXTROSE 5% IN WATER 250 ML 250 MG IV (12:31)
[2023-01-05] MEDS: SODIUM CHLORIDE 0.9% 1,000 ML 125 ML IV (12:32)
[2023-01-05 12:38] LABS: Bacteria Urine Many (>30); RBC Urine 1-5/HPF (0-5/HPF); Squamous Epithelial Cell Urine 0-1 /HPF (0-5/HPF); WBC Urine >100/HPF (0-5/HPF)
[2023-01-05 12:39] LABS: Culture Indicated Urine Cult Not Indicated
[2023-01-05 13:00] LABS: HCO3 VBG 31 mmol/L (24-28); PCO2 VBG 48.8 mmHg (45-50); PO2 VBG 30 mmHg (35-45); pH VBG 7.41 (7.33-7.43)
[2023-01-05 13:01] LABS: Fractionated Inspired Oxygen 28; Oxygen Saturation VBG 57 % (70-75); Total CO2 VBG 32 mmol/L (24-29)
[2023-01-05] MEDS: PIPERACILLIN/TAZO 4.5 GM in SODIUM CHLORIDE 0.9% 100 ML IV (13:43)
--- NOTE | 2023-01-05 14:18 | PC.NURSE ---
1355 Patient's systolic BP now 95. Dr. Loaiza aware, verbal order given for 500ml Bolus now. Patient given sips of water per request.
--- NOTE | 2023-01-05 15:10 | P.HP_ITS ---
History of Present Illness History of Present Illness Date Patient Seen: 01/05/23 Time Patient Seen: 15:10 Date of Onset of Symptoms: 01/05/23 Chief complaint: Fever, SOB Narrative: Patient presents from [facility] at [facility] with fevers and dyspnea. She has a H/O DM, COPD on chronic O2, CHF, and DM2 . She is full code and was recently intubated for respiratory failure. She denies a recent cough of dyspnea. She also denies urinary symptoms (dysuria or hematuria). She was found to have a UTI and RLL pneumonia. She was given broad spectrum Abx in ED. She has a recent urine culture with many resistances but was sensitive to Zosyn. No H/O MRSA. She denies confusion. A philippe is in place. [facility] Medical History PONCE (obstructive sleep apnea) Chronic hypoxemic respiratory failure COPD (chronic obstructive pulmonary disease) DM2 (diabetes mellitus, type 2) HTN (hypertension) Thyroiditis Systolic and diastolic CHF, chronic Obesity Surgical History S/P hernia surgery Family History Mother No pertinent past medical history Father No pertinent past medical history Social History household members: other Smoking Status: Former smoker Meds Home Medications and Allergies Home Medications Medication Instructions Recorded Confirmed Type acetaminophen 325 mg tablet 650 mg PO TID 05/25/22 09/19/22 History (Tylenol) aspirin 81 mg tablet,delayed 81 mg PO DAILY 05/25/22 09/19/22 History release budesonide-formoterol HFA 160 2 puff inhalation Q4H PRN Wheezing 05/25/22 09/19/22 History mcg-4.5 mcg/actuation aerosol inhaler bupropion HCl 150 mg tablet,12 hr 150 mg PO BEDTIME 05/25/22 09/19/22 History sustained-release carvedilol 3.125 mg tablet 3.125 mg PO BID 05/25/22 09/19/22 History cyanocobalamin (vitamin B-12) 500 500 mcg PO DAILY 05/25/22 09/19/22 History mcg tablet fenofibrate 160 mg tablet 160 mg PO DAILY 05/25/22 09/19/22 History ferrous sulfate 325 mg (65 mg 325 mg PO DAILY 05/25/22 09/19/22 History iron) tablet fluoxetine 20 mg tablet 20 mg PO DAILY 05/25/22 09/19/22 History fluticasone propionate 50 2 spray intranasal DAILY 05/25/22 09/19/22 History mcg/actuation nasal spray,suspension gabapentin 300 mg capsule 300 mg PO BEDTIME 05/25/22 09/19/22 History insulin glargine 100 unit/mL (3 22 unit SUBCUT BID 05/25/22 09/19/22 History mL) subcutaneous pen insulin lispro 100 unit/mL 3 unit SUBCUT TIDWM 05/25/22 09/19/22 History subcutaneous solution (Humalog U-100 Insulin) lidocaine 5 % topical patch 1 patch topical DAILY 05/25/22 09/19/22 History loratadine 10 mg tablet 10 mg PO DAILY 05/25/22 09/19/22 History magnesium oxide 200 mg PO DAILY 05/25/22 09/19/22 History meclizine 25 mg tablet 25 mg PO Q8HR PRN Dizziness 05/25/22 09/19/22 History montelukast 10 mg tablet 10 mg PO DAILY 05/25/22 09/19/22 History nystatin 100,000 unit/gram topical 1 applic topical BID PRN Rash 05/25/22 09/19/22 History powder ondansetron 4 mg disintegrating 4 mg PO Q8H PRN Nausea 05/25/22 09/19/22 History tablet rosuvastatin 40 mg tablet 40 mg PO DAILY 05/25/22 09/19/22 History sennosides 8.6 mg tablet (senna) 17.2 mg PO BEDTIME 05/25/22 09/19/22 History tiotropium bromide 18 mcg capsule 1 cap inhalation DAILY 05/25/22 09/19/22 History with inhalation device (Spiriva with HandiHaler) trazodone 50 mg tablet 50 mg PO BEDTIME 05/25/22 09/19/22 History albuterol sulfate 90 mcg/actuation 4 puff inhalation Q4H PRN 08/15/22 09/19/22 History aerosol inhaler Shortness Of Breath Or Wheezing levothyroxine 175 mcg tablet 175 mcg PO DAILY 08/15/22 09/19/22 History potassium chloride 10 mEq 10 meq PO DAILY 08/15/22 09/19/22 History tablet,extended release torsemide 10 mg tablet 10 mg PO DAILY 08/15/22 09/19/22 History Allergies Allergy/AdvReac Type Severity Reaction Status Date / Time No Known Drug Allergies Allergy Verified 05/25/22 12:43 Review of Systems Review of Systems Narrative: All else reviewed and otherwise negative. Exam Vital Signs (past 8 hours): - 01/05/23 11:01 01/05/23 11:02 01/05/23 11:02 Temperature Pulse Rate 125 H 121 H Respiratory Rate Blood Pressure 136/87 Pulse Oximetry 93 91 Oxygen Delivery Method Nasal Cannula Oxygen Flow Rate 3.5 01/05/23 11:08 01/05/23 11:10 01/05/23 11:10 Temperature 103.2 F H Pulse Rate 123 H 121 H Respiratory Rate 25 H Blood Pressure 145/91 H 145/91 H Pulse Oximetry 91 91 Oxygen Delivery Method Nasal Cannula Nasal Cannula Oxygen Flow Rate 3.5 3.5 01/05/23 11:23 01/05/23 11:23 01/05/23 11:30 Temperature Pulse Rate 121 H 117 H Respiratory Rate Blood Pressure 139/81 Pulse Oximetry 91 91 Oxygen Delivery Method Nasal Cannula Oxygen Flow Rate 3.5 01/05/23 11:45 01/05/23 11:46 01/05/23 11:46 Temperature Pulse Rate 115 H 115 H Respiratory Rate Blood Pressure 121/77 Pulse Oximetry 92 92 Oxygen Delivery Method Oxygen Flow Rate 01/05/23 11:50 01/05/23 11:50 01/05/23 11:52 Temperature Pulse Rate 115 H 113 H Respiratory Rate Blood Pressure 122/80 Pulse Oximetry 92 92 Oxygen Delivery Method Oxygen Flow Rate 01/05/23 11:52 01/05/23 12:00 01/05/23 12:01 Temperature Pulse Rate 112 H 113 H Respiratory Rate 32 H 40 H Blood Pressure 115/74 Pulse Oximetry 93 93 Oxygen Delivery Method Nasal Cannula Oxygen Flow Rate 3.5 01/05/23 12:01 01/05/23 12:10 01/05/23 12:10 Temperature Pulse Rate 110 H Respiratory Rate 40 H Blood Pressure 180/71 H 130/60 Pulse Oximetry 93 Oxygen Delivery Method Oxygen Flow Rate 01/05/23 12:22 01/05/23 12:23 01/05/23 12:23 Temperature 103.1 F H Pulse Rate 109 H 108 H Respiratory Rate Blood Pressure 126/69 Pulse Oximetry 93 93 Oxygen Delivery Method Oxygen Flow Rate 01/05/23 12:30 01/05/23 12:30 01/05/23 12:40 Temperature 103.3 F H Pulse Rate 108 H Respiratory Rate 40 H Blood Pressure 127/70 123/66 Pulse Oximetry 93 Oxygen Delivery Method Nasal Cannula Oxygen Flow Rate 3.5 01/05/23 12:40 01/05/23 12:43 01/05/23 12:45 Temperature 103.3 F H 103.1 F H Pulse Rate 108 H 123 H 107 H Respiratory Rate 39 H 38 H 35 H Blood Pressure Pulse Oximetry 92 92 93 Oxygen Delivery Method Nasal Cannula Oxygen Flow Rate 2 01/05/23 12:50 01/05/23 12:50 01/05/23 13:00 Temperature 103.1 F H 102.9 F H Pulse Rate 106 H 107 H Respiratory Rate 34 H 35 H Blood Pressure 140/61 Pulse Oximetry 93 92 Oxygen Delivery Method Nasal Cannula Oxygen Flow Rate 3.5 01/05/23 13:01 01/05/23 13:01 01/05/23 13:10 Temperature 102.9 F H 102.7 F H Pulse Rate 107 H 104 H Respiratory Rate 32 H 33 H Blood Pressure 133/66 Pulse Oximetry 93 93 Oxygen Delivery Method Oxygen Flow Rate 01/05/23 13:15 01/05/23 13:17 01/05/23 13:17 Temperature 102.6 F H 102.6 F H Pulse Rate 104 H 103 H Respiratory Rate 33 H 34 H Blood Pressure 114/57 L Pulse Oximetry 94 93 Oxygen Delivery Method Nasal Cannula Oxygen Flow Rate 3.5 01/05/23 13:20 01/05/23 13:20 01/05/23 13:30 Temperature 102.4 F H Pulse Rate 103 H Respiratory Rate 36 H Blood Pressure 112/64 109/60 Pulse Oximetry 92 Oxygen Delivery Method Nasal Cannula Oxygen Flow Rate 3.5 01/05/23 13:30 01/05/23 13:34 01/05/23 13:34 Temperature 102.4 F H 102.2 F H Pulse Rate 101 H 101 H Respiratory Rate 34 H 33 H Blood Pressure 111/65 Pulse Oximetry 94 94 Oxygen Delivery Method Nasal Cannula Oxygen Flow Rate 3.5 01/05/23 13:45 01/05/23 13:45 01/05/23 13:53 Temperature 102.0 F H Pulse Rate 100 H Respiratory Rate 34 H Blood Pressure 98/52 L 95/68 Pulse Oximetry 93 Oxygen Delivery Method Nasal Cannula Oxygen Flow Rate 3.5 01/05/23 13:53 01/05/23 14:00 01/05/23 14:00 Temperature 101.8 F H 101.8 F H Pulse Rate 100 H 98 H Respiratory Rate 33 H 32 H Blood Pressure 100/69 Pulse Oximetry 91 93 Oxygen Delivery Method Nasal Cannula Nasal Cannula Oxygen Flow Rate 3.5 3.5 01/05/23 14:15 01/05/23 14:15 01/05/23 14:30 Temperature 101.5 F H 101.3 F H Pulse Rate 96 H 97 H Respiratory Rate 31 H 30 H Blood Pressure 106/57 L Pulse Oximetry 95 94 Oxygen Delivery Method Oxygen Flow Rate 01/05/23 14:30 Temperature Pulse Rate Respiratory Rate Blood Pressure 111/55 L Pulse Oximetry Oxygen Delivery Method Oxygen Flow Rate Oxygen Delivery Method Nasal Cannula Oxygen Flow Rate 3.5 Narrative Exam Narrative: NAD, normal speech. She is breathing normally. A and O x 3. HEENT: nomal EOMI, anicteric sclera. Lungs clear with normal effort, and increased rate. On 2 liters O2. CV RRR without M/G/R Abdomen Soft, NT/ but distended. No rash No leg edema Good pulses. No slin rash. Objective Imaging Chest x-ray: Radiologist's impression: 1. Right lower lobe diffuse airspace opacity consistent with pneumonia. 2. Left pleural effusion. CT scan - head: Radiologist's impression: 1. Ventriculomegaly, similar to the prior study on 05/25/2022. Consider normal pressure hydrocephalus. 2. No acute intracranial abnormality. Labs 01/05/23 11:10 01/05/23 11:10 Labs: Laboratory Results - last 24 hr 01/05/23 01/05/23 01/05/23 11:10 11:24 11:30 WBC 15.8 H RBC 3.77 L Hgb 12.6 Hct 37.2 MCV 98.6 MCH 33.3 MCHC 33.8 RDW 14.8 Plt Count 211 Neut % (Auto) 87.0 H Lymph % (Auto) 6.2 L [place] % (Auto) 6.5 Eos % (Auto) 0.1 L Baso % (Auto) 0.2 Neut # (Auto) 50733 H Lymph # (Auto) 1000 L [place] # (Auto) 1000 H Eos # (Auto) 0 Baso # (Auto) 0 VBG pH 7.41 VBG pCO2 48.8 VBG pO2 30 L VBG HCO3 31 H VBG Total CO2 32 H VBG O2 Saturation 57 L VBG Base Excess 6.0 H FiO2 28 Sodium 137 Potassium 4.5 Chloride 97 L Carbon Dioxide 28 BUN 52 H Creatinine 2.27 H Estimated GFR 24 L BUN/Creatinine Ratio 22.9 H Glucose 295 H Lactate 1.1 Calcium 10.5 H Magnesium 2.1 Total Bilirubin 0.9 AST 34 ALT 24 Alkaline Phosphatase 72 Total Creatine Kinase 115 Troponin I 0.182 H* NT-Pro-B Natriuret Pep 93605 H Total Protein 8.1 Albumin 4.2 Globulin 3.9 Albumin/Globulin Ratio 1.1 Lipase 33 Procalcitonin 27.5 H Urine Color Urine Appearance Urine pH Ur Specific [place] Urine Protein Urine Glucose (UA) Urine Ketones Urine Occult Blood Urine Nitrate Urine Bilirubin Urine Urobilinogen Ur Leukocyte Esterase Urine RBC Urine WBC Ur Squamous Epith Cells Urine Bacteria Ur Culture Indicated? Chlamy pneumoniae PCR Not detected Adenovirus (PCR) Not detected B.parapertussis DNA PCR Not detected Coronavirus OC43 (PCR) Not detected Coronavirus HKU1 (PCR) Not detected Coronavirus 229E (PCR) Not detected SARS-CoV-2 (PCR) Not detected Coronavirus NL63 (PCR) Not detected Human Metapneumovir PCR Not detected Influenza Type A (PCR) Not detected Influenza Type B (PCR) Not detected M. pneumoniae (PCR) Not detected Parainfluenza 1 (PCR) Not detected Parainfluenza 2 (PCR) Not detected Parainfluenza 3 (PCR) Not detected Parainfluenza 4 (PCR) Not detected RSV (PCR) Not detected Entero/Rhino (PCR) Not detected 01/05/23 12:15 WBC RBC Hgb Hct MCV MCH MCHC RDW Plt Count Neut % (Auto) Lymph % (Auto) [place] % (Auto) Eos % (Auto) Baso % (Auto) Neut # (Auto) Lymph # (Auto) [place] # (Auto) Eos # (Auto) Baso # (Auto) VBG pH VBG pCO2 VBG pO2 VBG HCO3 VBG Total CO2 VBG O2 Saturation VBG Base Excess FiO2 Sodium Potassium Chloride Carbon Dioxide BUN Creatinine Estimated GFR BUN/Creatinine Ratio Glucose Lactate Calcium Magnesium Total Bilirubin AST ALT Alkaline Phosphatase Total Creatine Kinase Troponin I NT-Pro-B Natriuret Pep Total Protein Albumin Globulin Albumin/Globulin Ratio Lipase Procalcitonin Urine Color Yellow Urine Appearance Sl cloudy Urine pH 6.0 Ur Specific [place] 1.010 Urine Protein 2+ H Urine Glucose (UA) 3+ H Urine Ketones Trace H Urine Occult Blood 2+ H Urine Nitrate Positive H Urine Bilirubin Negative Urine Urobilinogen 0.2 Ur Leukocyte Esterase 3+ H Urine RBC 1-5/hpf Urine WBC >100/hpf H Ur Squamous Epith Cells 0-1 /hpf Urine Bacteria Many (>30) H Ur Culture Indicated? Cult not indicated Chlamy pneumoniae PCR Adenovirus (PCR) B.parapertussis DNA PCR Coronavirus OC43 (PCR) Coronavirus HKU1 (PCR) Coronavirus 229E (PCR) SARS-CoV-2 (PCR) Coronavirus NL63 (PCR) Human Metapneumovir PCR Influenza Type A (PCR) Influenza Type B (PCR) M. pneumoniae (PCR) Parainfluenza 1 (PCR) Parainfluenza 2 (PCR) Parainfluenza 3 (PCR) Parainfluenza 4 (PCR) RSV (PCR) Entero/Rhino (PCR) Assessment & Plan Assessment & Plan narrative: 1. UTI, POA 2. RLL PNA, POA 3. Chronic hypoxic respiratory failure, POA 4. COPD, POA and stable. 5. DM 2, POA and stable 6. CKD 3, POA and stable. 7. Mild septic encephalopathy, POA. 8. Chronic diastolic HF, POA and stable. 9. Mild demand sichemia, POA. 10. Morbid obesity, POA. Plan: -IV Antibiotics, follow cultures (Blood) -monitor breathing and O2 demand. -trend troponin. -follow urine symptoms. -monitor mental status. -Cont glargine 22 BID and medium correctional lispro. Full code. Proxy decision maker, Roxy Berry, daughter. Time Spent With Patient Time with patient: 30 to 49 minutes with 50% spent counseling/coordinating care Quality MIPS - Admit I confirm the patient?s Advance Care Plan is present, Code status is documented, Surrogate decision maker is in patient?s record [If Yes, STOP here]: Yes
[2023-01-05] MEDS: SODIUM CHLORIDE 0.9% 1,000 ML 50 ML IV (17:02)
[2023-01-05] MEDS: INSULIN LISPRO 100 UNIT/ML 3ML VIAL SUBCUT ×2 (17:03→21:10)
[2023-01-05] MEDS: ACETAMINOPHEN 325 MG TABLET 650 MG PO ×2 (17:11→23:46)
--- NOTE | 2023-01-05 17:45 | PC.ADMIT ---
[email or web address] Admission Note: The patient,Mary Carmen Jett,62 y/o, was given written information regarding hospital policies, unit procedures and contact persons. Patient's smoking status: Former smoker. Vital Signs - 8 hr 01/05/23 11:01 01/05/23 11:02 01/05/23 11:02 Temperature Pulse Rate 125 H 121 H Respiratory Rate Blood Pressure 136/87 Pulse Oximetry 93 91 Oxygen Delivery Method Nasal Cannula Oxygen Flow Rate 3.5 01/05/23 11:08 01/05/23 11:10 01/05/23 11:10 Temperature 103.2 F H Pulse Rate 123 H 121 H Respiratory Rate 25 H Blood Pressure 145/91 H 145/91 H Pulse Oximetry 91 91 Oxygen Delivery Method Nasal Cannula Nasal Cannula Oxygen Flow Rate 3.5 3.5 01/05/23 11:23 01/05/23 11:23 01/05/23 11:30 Temperature Pulse Rate 121 H 117 H Respiratory Rate Blood Pressure 139/81 Pulse Oximetry 91 91 Oxygen Delivery Method Nasal Cannula Oxygen Flow Rate 3.5 01/05/23 11:45 01/05/23 11:46 01/05/23 11:46 Temperature Pulse Rate 115 H 115 H Respiratory Rate Blood Pressure 121/77 Pulse Oximetry 92 92 Oxygen Delivery Method Oxygen Flow Rate 01/05/23 11:50 01/05/23 11:50 01/05/23 11:52 Temperature Pulse Rate 115 H 113 H Respiratory Rate Blood Pressure 122/80 Pulse Oximetry 92 92 Oxygen Delivery Method Oxygen Flow Rate 01/05/23 11:52 01/05/23 12:00 01/05/23 12:01 Temperature Pulse Rate 112 H 113 H Respiratory Rate 32 H 40 H Blood Pressure 115/74 Pulse Oximetry 93 93 Oxygen Delivery Method Nasal Cannula Oxygen Flow Rate 3.5 01/05/23 12:01 01/05/23 12:10 01/05/23 12:10 Temperature Pulse Rate 110 H Respiratory Rate 40 H Blood Pressure 180/71 H 130/60 Pulse Oximetry 93 Oxygen Delivery Method Oxygen Flow Rate 01/05/23 12:22 01/05/23 12:23 01/05/23 12:23 Temperature 103.1 F H Pulse Rate 109 H 108 H Respiratory Rate Blood Pressure 126/69 Pulse Oximetry 93 93 Oxygen Delivery Method Oxygen Flow Rate 01/05/23 12:30 01/05/23 12:30 01/05/23 12:40 Temperature 103.3 F H Pulse Rate 108 H Respiratory Rate 40 H Blood Pressure 127/70 123/66 Pulse Oximetry 93 Oxygen Delivery Method Nasal Cannula Oxygen Flow Rate 3.5 01/05/23 12:40 01/05/23 12:43 01/05/23 12:45 Temperature 103.3 F H 103.1 F H Pulse Rate 108 H 123 H 107 H Respiratory Rate 39 H 38 H 35 H Blood Pressure Pulse Oximetry 92 92 93 Oxygen Delivery Method Nasal Cannula Oxygen Flow Rate 2 01/05/23 12:50 01/05/23 12:50 01/05/23 13:00 Temperature 103.1 F H 102.9 F H Pulse Rate 106 H 107 H Respiratory Rate 34 H 35 H Blood Pressure 140/61 Pulse Oximetry 93 92 Oxygen Delivery Method Nasal Cannula Oxygen Flow Rate 3.5 01/05/23 13:01 01/05/23 13:01 01/05/23 13:10 Temperature 102.9 F H 102.7 F H Pulse Rate 107 H 104 H Respiratory Rate 32 H 33 H Blood Pressure 133/66 Pulse Oximetry 93 93 Oxygen Delivery Method Oxygen Flow Rate 01/05/23 13:15 01/05/23 13:17 01/05/23 13:17 Temperature 102.6 F H 102.6 F H Pulse Rate 104 H 103 H Respiratory Rate 33 H 34 H Blood Pressure 114/57 L Pulse Oximetry 94 93 Oxygen Delivery Method Nasal Cannula Oxygen Flow Rate 3.5 01/05/23 13:20 01/05/23 13:20 01/05/23 13:30 Temperature 102.4 F H Pulse Rate 103 H Respiratory Rate 36 H Blood Pressure 112/64 109/60 Pulse Oximetry 92 Oxygen Delivery Method Nasal Cannula Oxygen Flow Rate 3.5 01/05/23 13:30 01/05/23 13:34 01/05/23 13:34 Temperature 102.4 F H 102.2 F H Pulse Rate 101 H 101 H Respiratory Rate 34 H 33 H Blood Pressure 111/65 Pulse Oximetry 94 94 Oxygen Delivery Method Nasal Cannula Oxygen Flow Rate 3.5 01/05/23 13:42 01/05/23 13:45 01/05/23 13:45 Temperature 102.0 F H Pulse Rate 100 H Respiratory Rate 34 H Blood Pressure 98/52 L Pulse Oximetry 93 Oxygen Delivery Method Nasal Cannula Nasal Cannula Oxygen Flow Rate 3.5 01/05/23 13:53 01/05/23 13:53 01/05/23 14:00 Temperature 101.8 F H Pulse Rate 100 H Respiratory Rate 33 H Blood Pressure 95/68 100/69 Pulse Oximetry 91 Oxygen Delivery Method Nasal Cannula Oxygen Flow Rate 3.5 01/05/23 14:00 01/05/23 14:15 01/05/23 14:15 Temperature 101.8 F H 101.5 F H Pulse Rate 98 H 96 H Respiratory Rate 32 H 31 H Blood Pressure 106/57 L Pulse Oximetry 93 95 Oxygen Delivery Method Nasal Cannula Oxygen Flow Rate 3.5 01/05/23 14:30 01/05/23 14:30 01/05/23 14:50 Temperature 101.3 F H 99.4 F Pulse Rate 97 H 96 H Respiratory Rate 30 H 20 Blood Pressure 111/55 L 101/58 L Pulse Oximetry 94 96 Oxygen Delivery Method Oxygen Flow Rate 01/05/23 16:15 01/05/23 17:11 Temperature 102.5 F H Pulse Rate Respiratory Rate Blood Pressure Pulse Oximetry Oxygen Delivery Method Nasal Cannula Oxygen Flow Rate Pt arrived via gurney A/Ox3, moved to bed via slide board, connected to monitoring equipment, Temp sensing philippe in place draining cloudy yellow urine with sediment, temp reading febrile at 101.2, oral temp 98.5, will follow this closely and discuss with Dr Howard. Pt currently on 3L NC sats 93%. No further needs at this time. 1710 Pt becoming increasingly lethargic, rouses to voice and states she is cold, provided warm blankets, temp. sensing philippe reads temp at 102.4, tylenol administered as ordered, provider notified. 1740 Pt reassessed philippe temp reading is 103.0, temporal reading is 102.2, axillary reading is 98.9, ice packs placed in bilateral axillary and groin. Provider updated, no new orders at this time. Will continue to monitor.
[2023-01-05] MEDS: ALBUTEROL 2.5 MG/3 ML NEB (ADULT) INH (21:00)
[2023-01-05] MEDS: DOCUSATE 100 MG CAPSULE PO (21:08)
[2023-01-05] MEDS: HEPARIN 5,000 UNIT/ML VIAL 5000 UNIT SUBCUT (21:08)
[2023-01-05] MEDS: INSULIN GLARGINE 100 UNIT/ML 3ML PEN 22 UNIT SUBCUT (21:09)
[2023-01-05] MEDS: PIPERACILLIN/TAZO 3.375 GM in SODIUM CHLORIDE 0.9% 100 ML IV (22:37)
[2023-01-06] VITALS (19 sets, daily range): BP systolic 111–127; BP diastolic 59–79; PULSE 91–113; RESP 14–44; TEMP 29–39.6; O2SAT 92–97
[2023-01-06 01:46] LABS: Acinetobacter calcoa-baumannii Not Detected (Not Detect); Bacteroides fragilis Not Detected (Not Detect); CTX-M Resistance Not Detected (Not Detect); Candida albicans Not Detected (Not Detect); Candida auris Not Detected (Not Detect); Candida glabrata Not Detected (Not Detect); Candida krusei Not Detected (Not Detect); Candida parapsilosis Not Detected (Not Detect); Candida tropicalis Not Detected (Not Detect); Cryptococcus neoformans/gatti Not Detected (Not Detect); Enterobacter cloacae complex Not Detected (Not Detect); Enterobacterales Detected (Not Detect); Enterococcus faecalis Not Detected (Not Detect); Enterococcus faecium Not Detected (Not Detect); Haemophilus influenzae Not Detected (Not Detect); IMP Resistance Not Detected (Not Detect); KPC Resistance Not Detected (Not Detect); Klebsiella aerogenes Not Detected (Not Detect); Listeria monocytogenes Not Detected (Not Detect); NDM Resistance Not Detected (Not Detect); Neisseria meningitidis Not Detected (Not Detect); OXA-48-like Resistance Not Detected (Not Detect); Proteus species Not Detected (Not Detect); Pseudomonas aeruginosa Not Detected (Not Detect); Salmonella species Not Detected (Not Detect); Serratia marcescens Not Detected (Not Detect); Staphylococcus epidermidis Not Detected (Not Detect); Staphylococcus lugdunensis Not Detected (Not Detect); Staphylococcus species Not Detected (Not Detect); Stenotrophomonas maltophilia Not Detected (Not Detect); Streptococcus agalactiae (Gr B Not Detected (Not Detect); Streptococcus pneumonia Not Detected (Not Detect); Streptococcus pyogenes (Gr A) Not Detected (Not Detect); Streptococcus species Not Detected (Not Detect); VIM Resistance Not Detected (Not Detect); mcr-1 Resistance Not Detected (Not Detect)
[2023-01-06 04:47] LABS: Add Manual Diff / Slide Review NO; Basophils Absolute Auto 0 /uL (0-100); Basophils Percent Auto 0.1 % (0-2); Eosinophils Absolute Auto 0 /uL (0-450); Eosinophils Percent Auto 0.1 % (2-4); Hematocrit 33.4 % (36-46); Hemoglobin 11.2 g/dL (12.0-16.0); Lymphocytes Absolute Auto 800 /uL (1100-4500); Lymphocytes Percent Auto 5.9 % (25-40); Mean Corpuscular HGB Conc 33.5 % (30-36); Mean Corpuscular Hemoglobin 33.2 PG (26-34); Mean Corpuscular Volume 99.1 fL (80-100); Monocytes Absolute Auto 1200 /uL (0-900); Monocytes Percent Auto 8.9 % (3-14); Neutrophils Absolute Auto 11200 /uL (1500-7000); Platelet Count 176 X10^3/uL (150-400); Red Blood Cell Count 3.37 X10^6/uL (4.0-5.2); Red Cell Distribution Width 14.4 % (11.6-14.8); White Blood Cell Count 13.2 X10^3/uL (4.5-11.0)
[2023-01-06 04:56] LABS: BUN Creatinine Ratio 21.5 (6-22); Blood Urea Nitrogen 47 mg/dL (7-17); Calcium 9.2 mg/dL (8.4-10.2); Carbon Dioxide 28 mmol/L (22-32); Chloride 99 mmol/L (98-107); Estimated Glomerular Filt Rate 25 mL/min (>60); Glucose 261 mg/dL (80-110); HEMOLYSIS < 15 (0-50); Potassium 3.7 mmol/L (3.4-5.1); Sodium 138 mmol/L (137-145)
[2023-01-06] MEDS: PIPERACILLIN/TAZO 3.375 GM in SODIUM CHLORIDE 0.9% 100 ML IV ×3 (05:39→21:10)
[2023-01-06] MEDS: ALBUTEROL 2.5 MG/3 ML NEB (ADULT) INH ×4 (07:56→21:20)
--- NOTE | 2023-01-06 08:02 | PM.PN.1 ---
Subjective Subjective Interval history: Feels a little more short of breath. Did sleep last night. Denies any pain. She also denies any confusion. She does use BiPAP fairly frequently in past hospital encounters. Exam Vital Signs (past 8 hours): - 01/06/23 04:00 01/06/23 04:00 Temperature 101.7 F H Pulse Rate 104 H Respiratory Rate 39 H Blood Pressure 118/69 Pulse Oximetry 95 Oxygen Flow Rate 0 Oxygen Delivery Method Nasal Cannula Oxygen Flow Rate 0 Narrative Exam Narrative: No acute distress, oriented. She is breathing a little more quickly. She is in no distress. Her heart is regular, without murmur. Her lungs are fairly free of wheezes and she is slight increased effort. Her abdomen is distended, and non-tender. Her legs are free of edema. Objective Labs 01/06/23 04:05 01/06/23 04:05 Labs: Laboratory Results - last 24 hr 01/05/23 01/05/23 01/05/23 11:10 11:24 11:30 WBC 15.8 H RBC 3.77 L Hgb 12.6 Hct 37.2 MCV 98.6 MCH 33.3 MCHC 33.8 RDW 14.8 Plt Count 211 Neut % (Auto) 87.0 H Lymph % (Auto) 6.2 L [place] % (Auto) 6.5 Eos % (Auto) 0.1 L Baso % (Auto) 0.2 Neut # (Auto) 99033 H Lymph # (Auto) 1000 L [place] # (Auto) 1000 H Eos # (Auto) 0 Baso # (Auto) 0 VBG pH 7.41 VBG pCO2 48.8 VBG pO2 30 L VBG HCO3 31 H VBG Total CO2 32 H VBG O2 Saturation 57 L VBG Base Excess 6.0 H FiO2 28 Sodium 137 Potassium 4.5 Chloride 97 L Carbon Dioxide 28 BUN 52 H Creatinine 2.27 H Estimated GFR 24 L BUN/Creatinine Ratio 22.9 H Glucose 295 H Lactate 1.1 Calcium 10.5 H Magnesium 2.1 Total Bilirubin 0.9 AST 34 ALT 24 Alkaline Phosphatase 72 Total Creatine Kinase 115 Troponin I 0.182 H* NT-Pro-B Natriuret Pep 88137 H Total Protein 8.1 Albumin 4.2 Globulin 3.9 Albumin/Globulin Ratio 1.1 Lipase 33 Procalcitonin 27.5 H Urine Color Urine Appearance Urine pH Ur Specific [place] Urine Protein Urine Glucose (UA) Urine Ketones Urine Occult Blood Urine Nitrate Urine Bilirubin Urine Urobilinogen Ur Leukocyte Esterase Urine RBC Urine WBC Ur Squamous Epith Cells Urine Bacteria Ur Culture Indicated? A.calcoaceticus-baumannii cmplx PCR Not detected Chlamy pneumoniae PCR Not detected Adenovirus (PCR) Not detected Bacteroides fragilis Not detected B.parapertussis DNA PCR Not detected Mine albicans (PCR) Not detected Mine auris (PCR) Not detected C. glabrata (PCR) Not detected C. krusei (PCR) Not detected C. parapsilosis (PCR) Not detected C. tropicalis (PCR) Not detected Coronavirus OC43 (PCR) Not detected Coronavirus HKU1 (PCR) Not detected Coronavirus 229E (PCR) Not detected SARS-CoV-2 (PCR) Not detected Coronavirus NL63 (PCR) Not detected C. neoform/gattii (PCR) Not detected Enterobacterales (PCR) Detected E. cloacae complex PCR Not detected Enterococc faecalis PCR Not detected Enterococc faecium PCR Not detected E. coli (PCR) Detected H. influenzae (PCR) Not detected Human Metapneumovir PCR Not detected Influenza Type A (PCR) Not detected Influenza Type B (PCR) Not detected Klebsiella aerogenes (PCR) Not detected Klebsiella oxytoca PCR Not detected Klebsiella pneumoniae Not detected List. monocytogenes PCR Not detected M. pneumoniae (PCR) Not detected N. meningitidis (PCR) Not detected Parainfluenza 1 (PCR) Not detected Parainfluenza 2 (PCR) Not detected Parainfluenza 3 (PCR) Not detected Parainfluenza 4 (PCR) Not detected Proteus species (PCR) Not detected RSV (PCR) Not detected Entero/Rhino (PCR) Not detected Salmonella spp. (PCR) Not detected Serratia marcescens PCR Not detected Staphylococcus sp PCR Not detected Staph aureus (PCR) Not detected mecA/C & MREJ Resist Gene Not applicable mecA/C-Methicil Resis Gene Not applicable mcr-1 Colistin Res Gene PCR Not detected Staph epidermidis (PCR) Not detected Staph lugdunensis PCR Not detected S. maltophilia (PCR) Not detected Streptococcus sp PCR Not detected Group A Strep (PCR) Not detected Strep agalactiae (PCR) Not detected Strep pneumoniae (PCR) Not detected P. aeruginosa (PCR) Not detected [place]/B-Vanco Res Genes Not applicable blaIMP Car res Gene PCR Not detected KPC-Carbap Res Gene PCR Not detected blaNDM Car Res Gene PCR Not detected OXA-48 Carbapenem Resis Gene (PCR) Not detected blaVIM Car Res Gene PCR Not detected CTX-M Gene Resistance (PCR) Not detected 01/05/23 01/06/23 12:15 04:05 WBC 13.2 H RBC 3.37 L Hgb 11.2 L Hct 33.4 L MCV 99.1 MCH 33.2 MCHC 33.5 RDW 14.4 Plt Count 176 Neut % (Auto) 85.0 H Lymph % (Auto) 5.9 L [place] % (Auto) 8.9 Eos % (Auto) 0.1 L Baso % (Auto) 0.1 Neut # (Auto) 44127 H Lymph # (Auto) 800 L [place] # (Auto) 1200 H Eos # (Auto) 0 Baso # (Auto) 0 VBG pH VBG pCO2 VBG pO2 VBG HCO3 VBG Total CO2 VBG O2 Saturation VBG Base Excess FiO2 Sodium 138 Potassium 3.7 Chloride 99 Carbon Dioxide 28 BUN 47 H Creatinine 2.19 H Estimated GFR 25 L BUN/Creatinine Ratio 21.5 Glucose 261 H Lactate Calcium 9.2 Magnesium Total Bilirubin AST ALT Alkaline Phosphatase Total Creatine Kinase Troponin I NT-Pro-B Natriuret Pep Total Protein Albumin Globulin Albumin/Globulin Ratio Lipase Procalcitonin Urine Color Yellow Urine Appearance Sl cloudy Urine pH 6.0 Ur Specific [place] 1.010 Urine Protein 2+ H Urine Glucose (UA) 3+ H Urine Ketones Trace H Urine Occult Blood 2+ H Urine Nitrate Positive H Urine Bilirubin Negative Urine Urobilinogen 0.2 Ur Leukocyte Esterase 3+ H Urine RBC 1-5/hpf Urine WBC >100/hpf H Ur Squamous Epith Cells 0-1 /hpf Urine Bacteria Many (>30) H Ur Culture Indicated? Cult not indicated A.calcoaceticus-baumannii cmplx PCR Chlamy pneumoniae PCR Adenovirus (PCR) Bacteroides fragilis B.parapertussis DNA PCR Mine albicans (PCR) Mine auris (PCR) C. glabrata (PCR) C. krusei (PCR) C. parapsilosis (PCR) C. tropicalis (PCR) Coronavirus OC43 (PCR) Coronavirus HKU1 (PCR) Coronavirus 229E (PCR) SARS-CoV-2 (PCR) Coronavirus NL63 (PCR) C. neoform/gattii (PCR) Enterobacterales (PCR) E. cloacae complex PCR Enterococc faecalis PCR Enterococc faecium PCR E. coli (PCR) H. influenzae (PCR) Human Metapneumovir PCR Influenza Type A (PCR) Influenza Type B (PCR) Klebsiella aerogenes (PCR) Klebsiella oxytoca PCR Klebsiella pneumoniae List. monocytogenes PCR M. pneumoniae (PCR) N. meningitidis (PCR) Parainfluenza 1 (PCR) Parainfluenza 2 (PCR) Parainfluenza 3 (PCR) Parainfluenza 4 (PCR) Proteus species (PCR) RSV (PCR) Entero/Rhino (PCR) Salmonella spp. (PCR) Serratia marcescens PCR Staphylococcus sp PCR Staph aureus (PCR) mecA/C & MREJ Resist Gene mecA/C-Methicil Resis Gene mcr-1 Colistin Res Gene PCR Staph epidermidis (PCR) Staph lugdunensis PCR S. maltophilia (PCR) Streptococcus sp PCR Group A Strep (PCR) Strep agalactiae (PCR) Strep pneumoniae (PCR) P. aeruginosa (PCR) [place]/B-Vanco Res Genes blaIMP Car res Gene PCR KPC-Carbap Res Gene PCR blaNDM Car Res Gene PCR OXA-48 Carbapenem Resis Gene (PCR) blaVIM Car Res Gene PCR CTX-M Gene Resistance (PCR) Blood cultures are positive for E coli x2. PFSH Medical History PONCE (obstructive sleep apnea) Chronic hypoxemic respiratory failure COPD (chronic obstructive pulmonary disease) DM2 (diabetes mellitus, type 2) HTN (hypertension) Thyroiditis Systolic and diastolic CHF, chronic Obesity Surgical History S/P hernia surgery Family History Mother No pertinent past medical history Father No pertinent past medical history Social History household members: other Smoking Status: Former smoker alcohol intake: former Assessment & Plan Assessment & Plan narrative: [address] [address] History & Physical Report Patient: Mary Carmen Jett MR#: [id number] : 1960 Acct:[id number] Age/Sex: 62 / F Date of Service: 01/05/23 Provider: Ramon Howard MD History of Present Illness History of Present Illness Date Patient Seen: 01/05/23 Time Patient Seen: 15:10 Date of Onset of Symptoms: 01/05/23 Chief complaint: Fever, SOB Narrative: Patient presents from LTC at [facility] with fevers and dyspnea. She has a H/O DM, COPD on chronic O2, CHF, and DM2 . She is full code and was recently intubated for respiratory failure. She denies a recent cough of dyspnea. She also denies urinary symptoms (dysuria or hematuria). She was found to have a UTI and RLL pneumonia. She was given broad spectrum Abx in ED. She has a recent urine culture with many resistances but was sensitive to Zosyn. No H/O MRSA. She denies confusion. A philippe is in place. [facility] Medical History PONCE (obstructive sleep apnea) Chronic hypoxemic respiratory failure COPD (chronic obstructive pulmonary disease) DM2 (diabetes mellitus, type 2) HTN (hypertension) Thyroiditis Systolic and diastolic CHF, chronic Obesity Surgical History S/P hernia surgery Family History Mother No pertinent past medical historyFather No pertinent past medical history Social History household members: other Smoking Status: Former smoker Meds Home Medications and Allergies Home Medications Medication Instructions Recorded Confirmed Type acetaminophen 325 mg tablet 650 mg PO TID 05/25/22 09/19/22 History (Tylenol) aspirin 81 mg tablet,delayed 81 mg PO DAILY 05/25/22 09/19/22 History release budesonide-formoterol HFA 160 2 puff inhalation Q4H PRN Wheezing 05/25/22 09/19/22 History mcg-4.5 mcg/actuation aerosol inhaler bupropion HCl 150 mg tablet,12 hr 150 mg PO BEDTIME 05/25/22 09/19/22 History sustained-release carvedilol 3.125 mg tablet 3.125 mg PO BID 05/25/22 09/19/22 History cyanocobalamin (vitamin B-12) 500 500 mcg PO DAILY 05/25/22 09/19/22 History mcg tablet fenofibrate 160 mg tablet 160 mg PO DAILY 05/25/22 09/19/22 History ferrous sulfate 325 mg (65 mg 325 mg PO DAILY 05/25/22 09/19/22 History iron) tablet fluoxetine 20 mg tablet 20 mg PO DAILY 05/25/22 09/19/22 History fluticasone propionate 50 2 spray intranasal DAILY 05/25/22 09/19/22 History mcg/actuation nasal spray,suspension gabapentin 300 mg capsule 300 mg PO BEDTIME 05/25/22 09/19/22 History insulin glargine 100 unit/mL (3 22 unit SUBCUT BID 05/25/22 09/19/22 History mL) subcutaneous pen insulin lispro 100 unit/mL 3 unit SUBCUT TIDWM 05/25/22 09/19/22 History subcutaneous solution (Humalog U-100 Insulin) lidocaine 5 % topical patch 1 patch topical DAILY 05/25/22 09/19/22 History loratadine 10 mg tablet 10 mg PO DAILY 05/25/22 09/19/22 History magnesium oxide 200 mg PO DAILY 05/25/22 09/19/22 History meclizine 25 mg tablet 25 mg PO Q8HR PRN Dizziness 05/25/22 09/19/22 History montelukast 10 mg tablet 10 mg PO DAILY 05/25/22 09/19/22 History nystatin 100,000 unit/gram topical 1 applic topical BID PRN Rash 05/25/22 09/19/22 History powder ondansetron 4 mg disintegrating 4 mg PO Q8H PRN Nausea 05/25/22 09/19/22 History tablet rosuvastatin 40 mg tablet 40 mg PO DAILY 05/25/22 09/19/22 History sennosides 8.6 mg tablet (senna) 17.2 mg PO BEDTIME 05/25/22 09/19/22 History tiotropium bromide 18 mcg capsule 1 cap inhalation DAILY 05/25/22 09/19/22 History with inhalation device (Spiriva with HandiHaler) trazodone 50 mg tablet 50 mg PO BEDTIME 05/25/22 09/19/22 History albuterol sulfate 90 mcg/actuation 4 puff inhalation Q4H PRN 08/15/22 09/19/22 History aerosol inhaler Shortness Of Breath Or Wheezing levothyroxine 175 mcg tablet 175 mcg PO DAILY 08/15/22 09/19/22 History potassium chloride 10 mEq 10 meq PO DAILY 08/15/22 09/19/22 History tablet,extended release torsemide 10 mg tablet 10 mg PO DAILY 08/15/22 09/19/22 History Allergies Allergy/AdvReac Type Severity Reaction Status Date / Time No Known Drug Allergies Allergy Verified 05/25/22 12:43 Review of Systems Review of Systems Narrative: All else reviewed and otherwise negative. Exam Vital Signs (past 8 hours): - 01/05/2311:01 01/05/2311:02 01/05/2311:02 Temperature Pulse Rate 125 H 121 H Respiratory Rate Blood Pressure 136/87 Pulse Oximetry 93 91 Oxygen Delivery Method Nasal Cannula Oxygen Flow Rate 3.5 01/05/2311:08 01/05/2311:10 01/05/2311:10 Temperature 103.2 F H Pulse Rate 123 H 121 H Respiratory Rate 25 H Blood Pressure 145/91 H 145/91 H Pulse Oximetry 91 91 Oxygen Delivery Method Nasal Cannula Nasal Cannula Oxygen Flow Rate 3.5 3.5 01/05/2311:23 01/05/2311:23 01/05/2311:30 Temperature Pulse Rate 121 H 117 H Respiratory Rate Blood Pressure 139/81 Pulse Oximetry 91 91 Oxygen Delivery Method Nasal Cannula Oxygen Flow Rate 3.5 01/05/2311:45 01/05/2311:46 01/05/2311:46 Temperature Pulse Rate 115 H 115 H Respiratory Rate Blood Pressure 121/77 Pulse Oximetry 92 92 Oxygen Delivery Method Oxygen Flow Rate 01/05/2311:50 01/05/2311:50 01/05/2311:52 Temperature Pulse Rate 115 H 113 H Respiratory Rate Blood Pressure 122/80 Pulse Oximetry 92 92 Oxygen Delivery Method Oxygen Flow Rate 01/05/2311:52 01/06/2312:00 01/06/2312:01 Temperature Pulse Rate 112 H 113 H Respiratory Rate 32 H 40 H Blood Pressure 115/74 Pulse Oximetry 93 93 Oxygen Delivery Method Nasal Cannula Oxygen Flow Rate 3.5 01/06/2312:01 01/06/2312:10 01/06/2312:10 Temperature Pulse Rate 110 H Respiratory Rate 40 H Blood Pressure 180/71 H 130/60 Pulse Oximetry 93 Oxygen Delivery Method Oxygen Flow Rate 01/06/2312:22 01/06/2312:23 01/06/2312:23 Temperature 103.1 F H Pulse Rate 109 H 108 H Respiratory Rate Blood Pressure 126/69 Pulse Oximetry 93 93 Oxygen Delivery Method Oxygen Flow Rate 01/06/2312:30 01/06/2312:30 01/06/2312:40 Temperature 103.3 F H Pulse Rate 108 H Respiratory Rate 40 H Blood Pressure 127/70 123/66 Pulse Oximetry 93 Oxygen Delivery Method Nasal Cannula Oxygen Flow Rate 3.5 01/06/2312:40 01/06/2312:43 01/06/2312:45 Temperature 103.3 F H 103.1 F H Pulse Rate 108 H 123 H 107 H Respiratory Rate 39 H 38 H 35 H Blood Pressure Pulse Oximetry 92 92 93 Oxygen Delivery Method Nasal Cannula Oxygen Flow Rate 2 01/06/2312:50 01/06/2312:50 01/05/2313:00 Temperature 103.1 F H 102.9 F H Pulse Rate 106 H 107 H Respiratory Rate 34 H 35 H Blood Pressure 140/61 Pulse Oximetry 93 92 Oxygen Delivery Method Nasal Cannula Oxygen Flow Rate 3.5 01/05/2313:01 01/05/2313:01 01/05/2313:10 Temperature 102.9 F H 102.7 F H Pulse Rate 107 H 104 H Respiratory Rate 32 H 33 H Blood Pressure 133/66 Pulse Oximetry 93 93 Oxygen Delivery Method Oxygen Flow Rate 01/05/2313:15 01/05/2313:17 01/05/2313:17 Temperature 102.6 F H 102.6 F H Pulse Rate 104 H 103 H Respiratory Rate 33 H 34 H Blood Pressure 114/57 L Pulse Oximetry 94 93 Oxygen Delivery Method Nasal Cannula Oxygen Flow Rate 3.5 01/05/2313:20 01/05/2313:20 01/05/2313:30 Temperature 102.4 F H Pulse Rate 103 H Respiratory Rate 36 H Blood Pressure 112/64 109/60 Pulse Oximetry 92 Oxygen Delivery Method Nasal Cannula Oxygen Flow Rate 3.5 01/05/2313:30 01/05/2313:34 01/05/2313:34 Temperature 102.4 F H 102.2 F H Pulse Rate 101 H 101 H Respiratory Rate 34 H 33 H Blood Pressure 111/65 Pulse Oximetry 94 94 Oxygen Delivery Method Nasal Cannula Oxygen Flow Rate 3.5 01/05/2313:45 01/05/2313:45 01/05/2313:53 Temperature 102.0 F H Pulse Rate 100 H Respiratory Rate 34 H Blood Pressure 98/52 L 95/68 Pulse Oximetry 93 Oxygen Delivery Method Nasal Cannula Oxygen Flow Rate 3.5 01/05/2313:53 01/05/2314:00 01/05/2314:00 Temperature 101.8 F H 101.8 F H Pulse Rate 100 H 98 H Respiratory Rate 33 H 32 H Blood Pressure 100/69 Pulse Oximetry 91 93 Oxygen Delivery Method Nasal Cannula Nasal Cannula Oxygen Flow Rate 3.5 3.5 01/05/2314:15 01/05/2314:15 01/05/2314:30 Temperature 101.5 F H 101.3 F H Pulse Rate 96 H 97 H Respiratory Rate 31 H 30 H Blood Pressure 106/57 L Pulse Oximetry 95 94 Oxygen Delivery Method Oxygen Flow Rate 01/05/2314:30 Temperature Pulse Rate Respiratory Rate Blood Pressure 111/55 L Pulse Oximetry Oxygen Delivery Method Oxygen Flow Rate Oxygen Delivery Method Nasal Cannula Oxygen Flow Rate 3.5 Narrative Exam Narrative: NAD, normal speech. She is breathing normally. A and O x 3. HEENT: nomal EOMI, anicteric sclera. Lungs clear with normal effort, and increased rate. On 2 liters O2. CV RRR without M/G/R Abdomen Soft, NT/ but distended. No rash No leg edema Good pulses. No slin rash. Objective Imaging Chest x-ray: Radiologist's impression: 1. Right lower lobe diffuse airspace opacity consistent with pneumonia. 2. Left pleural effusion. CT scan - head: Radiologist's impression: 1. Ventriculomegaly, similar to the prior study on 05/25/2022. Consider normal pressure hydrocephalus. 2. No acute intracranial abnormality. Labs 01/05/23 11:10 01/05/23 11:10 Labs: Laboratory Results - last 24 hr 01/05/23 01/05/2301/05/23 11:10 11:24 11:30 WBC 15.8 H RBC 3.77 L Hgb 12.6 Hct 37.2 MCV 98.6 MCH 33.3 MCHC 33.8 RDW 14.8 Plt Count 211 Neut % (Auto) 87.0 H Lymph % (Auto) 6.2 L [place] % (Auto) 6.5 Eos % (Auto) 0.1 L Baso % (Auto) 0.2 Neut # (Auto) 21105 H Lymph # (Auto) 1000 L [place] # (Auto) 1000 H Eos # (Auto) 0 Baso # (Auto) 0 VBG pH 7.41 VBG pCO2 48.8 VBG pO2 30 L VBG HCO3 31 H VBG Total CO2 32 H VBG O2 Saturation 57 L VBG Base Excess 6.0 H FiO2 28 Sodium 137 Potassium 4.5 Chloride 97 L Carbon Dioxide 28 BUN 52 H Creatinine 2.27 H Estimated GFR 24 L BUN/Creatinine Ratio 22.9 H Glucose 295 H Lactate 1.1 Calcium 10.5 H Magnesium 2.1 Total Bilirubin 0.9 AST 34 ALT 24 Alkaline Phosphatase 72 Total Creatine Kinase 115 Troponin I 0.182 H* NT-Pro-B Natriuret Pep 45488 H Total Protein 8.1 Albumin 4.2 Globulin 3.9 Albumin/Globulin Ratio 1.1 Lipase 33 Procalcitonin 27.5 H Urine Color Urine Appearance Urine pH Ur Specific [place] Urine Protein Urine Glucose (UA) Urine Ketones Urine Occult Blood Urine Nitrate Urine Bilirubin Urine Urobilinogen Ur Leukocyte Esterase Urine RBC Urine WBC Ur Squamous Epith Cells Urine Bacteria Ur Culture Indicated? Chlamy pneumoniae PCR Not detected Adenovirus (PCR) Not detected B.parapertussis DNA PCR Not detected Coronavirus OC43 (PCR) Not detected Coronavirus HKU1 (PCR) Not detected Coronavirus 229E (PCR) Not detected SARS-CoV-2 (PCR) Not detected Coronavirus NL63 (PCR) Not detected Human Metapneumovir PCR Not detected Influenza Type A (PCR) Not detected Influenza Type B (PCR) Not detected M. pneumoniae (PCR) Not detected Parainfluenza 1 (PCR) Not detected Parainfluenza 2 (PCR) Not detected Parainfluenza 3 (PCR) Not detected Parainfluenza 4 (PCR) Not detected RSV (PCR) Not detected Entero/Rhino (PCR) Not detected 01/05/23 12:15 WBC RBC Hgb Hct MCV MCH MCHC RDW Plt Count Neut % (Auto) Lymph % (Auto) [place] % (Auto) Eos % (Auto) Baso % (Auto) Neut # (Auto) Lymph # (Auto) [place] # (Auto) Eos # (Auto) Baso # (Auto) VBG pH VBG pCO2 VBG pO2 VBG HCO3 VBG Total CO2 VBG O2 Saturation VBG Base Excess FiO2 Sodium Potassium Chloride Carbon Dioxide BUN Creatinine Estimated GFR BUN/Creatinine Ratio Glucose Lactate Calcium Magnesium Total Bilirubin AST ALT Alkaline Phosphatase Total Creatine Kinase Troponin I NT-Pro-B Natriuret Pep Total Protein Albumin Globulin Albumin/Globulin Ratio Lipase Procalcitonin Urine Color Yellow Urine Appearance Sl cloudy Urine pH 6.0 Ur Specific [place] 1.010 Urine Protein 2+ H Urine Glucose (UA) 3+ H Urine Ketones Trace H Urine Occult Blood 2+ H Urine Nitrate Positive H Urine Bilirubin Negative Urine Urobilinogen 0.2 Ur Leukocyte Esterase 3+ H Urine RBC 1-5/hpf Urine WBC >100/hpf H Ur Squamous Epith Cells 0-1 /hpf Urine Bacteria Many (>30) H Ur Culture Indicated? Cult not indicated Chlamy pneumoniae PCR Adenovirus (PCR) B.parapertussis DNA PCR Coronavirus OC43 (PCR) Coronavirus HKU1 (PCR) Coronavirus 229E (PCR) SARS-CoV-2 (PCR) Coronavirus NL63 (PCR) Human Metapneumovir PCR Influenza Type A (PCR) Influenza Type B (PCR) M. pneumoniae (PCR) Parainfluenza 1 (PCR) Parainfluenza 2 (PCR) Parainfluenza 3 (PCR) Parainfluenza 4 (PCR) RSV (PCR) Entero/Rhino (PCR) Assessment & Plan Assessment & Plan narrative: 1. UTI, POA and active. 2. E coli bacteremia, present on admission and active. 3. RLL PNA, POA and active. 4. Acute on chronic hypoxic respiratory failure, POA and active. 5. COPD, POA and stable. 6. DM 2, POA and stable 7. CKD 3, POA and stable. 8. Mild septic encephalopathy, POA. 9. Chronic diastolic HF, POA and stable. 10. Mild demand sichemia, POA. 11. Morbid obesity, POA. Plan: -IV Antibiotics, follow cultures (Blood and urine) -monitor breathing and O2 demand. Continue bronchodilators and will use BiPAP if needed based on her symptoms. -trend troponin. -follow urine symptoms, await cultures.. -monitor mental status. -Cont glargine 22 BID and medium correctional lispro. Full code. Proxy decision maker, Roxy Berry, daughter. Time Spent With Patient Time with patient: 30 to 49 minutes with 50% spent counseling/coordinating care Quality VTE Deep Vein Thrombosis/Pulmonary Embolism Present on Admission: No
[2023-01-06] MEDS: INSULIN LISPRO 100 UNIT/ML 3ML VIAL SUBCUT ×3 (08:13→16:56)
[2023-01-06] MEDS: INSULIN GLARGINE 100 UNIT/ML 3ML PEN 22 UNIT SUBCUT ×2 (08:17→21:12)
[2023-01-06] MEDS: HEPARIN 5,000 UNIT/ML VIAL 5000 UNIT SUBCUT ×2 (08:18→21:12)
[2023-01-06] MEDS: DOCUSATE 100 MG CAPSULE PO ×2 (08:18→21:11)
--- NOTE | 2023-01-06 12:08 | RT ---
pt setup on Bipap without incident. Pt ramone well, states she has bright and wears her full face mask Home Cpap unit at night along with 2 lpm O2. She is currently on 2 at home. Bag mask unit and suction funtional at [facility].
--- NOTE | 2023-01-06 13:38 | PC.NURSE ---
Addendum entered by Rayray Layne R.N. 01/06/23 17:27: 1720 - Bipap removed, placed back on 2L NC. Original Note: 1230 - Bipap paused for patient to have lunch and receive care. 2L NC at 94%, no stated complaints. 1338 - Patient placed back on bipap, settings unchanged.
--- NOTE | 2023-01-06 15:00 | PC.NURSE ---
IV site mistakenly charted as left forearm, should be noted as left upper arm. Unable to correct in chart without clearing out old information.
--- NOTE | 2023-01-06 16:04 | RT ---
bipap checked, pt asleep and ramone well. machine plugged into red outlet and resting comfortably
--- NOTE | 2023-01-06 16:49 | CM.DANOTE ---
Initial DCP Assessment Note Pt is a 62 yo female, resident at [facility] H+R x 6 months, formerly living at [facility]. Presents with fever and SOB, admitted for management of UTI- E coli bacteremia, PNA, resp failure. PCP: Simone Rodgers Payer: Sunil/KYLE Reviewed chart, patient currently on Bipap, not able to participate in bedisde assessment. Placed call to August at [facility]. Patient is A+Ox3 at baseline, requires 1-2 person assist, walks short distances. Patient has PT and [facility] for hx of swallowing issues. August anticipates no barriers to accepting patient back for fpc care, August will plan to obtain a new auth from Sunil WRIGHT if patient has new skilled need upon return home to [facility]. Xu working the admission phone at [facility] this weekend. CM team will plan to follow closely for coordination of discharge plan, anticipate back to [facility]- review plan with patient and daughter Roxy to confirm agreement. GA Vasquez Discharge Planning/Care Management CM Discharge Assessment Start: 01/06/23 16:45 Freq: Status: Active Protocol: Document 01/06/23 16:46 NEO (Rec: 01/06/23 16:49 NEO [id number]) Discharge Planning Assessment Assigned Lay Brother GA Rosa DPOA/Assigned Designee Name blaze Arciniega Contact Information [phone] Advance Directives? No History Provided By Medical Record Prior Living Arrangements Skilled Nurse Facility Comment [facility] H+R, terminal carman resident Household Members other Type of transporation used prior to Relies on Others admit Facility Name Admitted From: [facility] Willing to Return to Facility? Yes Independent with ADL's No Is patient alert and oriented? A+Ox3 Needs Assistance With Bathing,Grooming,Meal Prep, Toileting,Managing Medications ,Home Chores / Shopping Patient/Family Preference Senior Care Facility Comment intermediate resident, [facility] will likely obtain new auth from Sunil Comment Will return to [facility]. Waiting on auth from Sunil. Discharge Plan Senior Care Facility Transportation Arrangement Facility Referrals Initiated Senior Care
[2023-01-06] MEDS: ACETAMINOPHEN 325 MG TABLET 650 MG PO (17:52)
[2023-01-07] VITALS (22 sets, daily range): BP systolic 87–132; BP diastolic 54–90; PULSE 89–103; RESP 14–38; TEMP 38–39; O2SAT 92–97
[2023-01-07] MEDS: ALBUTEROL 2.5 MG/3 ML NEB (ADULT) INH ×4 (01:50→12:47)
[2023-01-07 04:52] LABS: BUN Creatinine Ratio 21.5 (6-22); Blood Urea Nitrogen 38 mg/dL (7-17); Calcium 8.7 mg/dL (8.4-10.2); Carbon Dioxide 27 mmol/L (22-32); Chloride 101 mmol/L (98-107); Estimated Glomerular Filt Rate 32 mL/min (>60); Glucose 173 mg/dL (80-110); HEMOLYSIS < 15 (0-50); Potassium 3.5 mmol/L (3.4-5.1); Sodium 137 mmol/L (137-145)
[2023-01-07] MEDS: PIPERACILLIN/TAZO 3.375 GM in SODIUM CHLORIDE 0.9% 100 ML IV (05:47)
[2023-01-07] MEDS: HEPARIN 5,000 UNIT/ML VIAL 5000 UNIT SUBCUT ×2 (08:06→20:52)
[2023-01-07] MEDS: INSULIN LISPRO 100 UNIT/ML 3ML VIAL SUBCUT ×5 (08:07→20:57)
[2023-01-07] MEDS: INSULIN GLARGINE 100 UNIT/ML 3ML PEN 22 UNIT SUBCUT ×2 (08:07→20:58)
[2023-01-07] MEDS: POTASSIUM CHLORIDE 20 MEQ TAB 40 MEQ PO (09:00)
--- NOTE | 2023-01-07 09:08 | DI.CT.S_ITS ---
PROCEDURE: CT CHEST WO CON INDICATIONS: pleural effusion TECHNIQUE: Noncontrast 5 mm thick sections acquired from the pulmonary apices to the posterior costophrenic angles. 1 mm lung window, 5 mm thick coronal and sagittal and 7 mm axial MIP reformats were then acquired. For radiation dose reduction, the following was used: automated exposure control, adjustment of mA and/or kV according to patient size. COMPARISON: None. FINDINGS: Image quality: Excellent. Lungs and pleura: Right-sided dependent atelectasis. No significant pleural effusion. Mediastinum: Heart size is enlarged. No pericardial effusion. Mediastinal adenopathy measures up to 1.3 cm Thoracic aorta and central pulmonary arteries are normal in size. Esophagus is normal in caliber. No hiatal hernia. Bones and chest wall: No suspicious bony lesions. No vertebral body compression fractures. No axillary or supraclavicular adenopathy by size criteria. Thyroid gland unremarkable . Abdomen: Visualized upper abdominal solid organs and bowel loops appear normal in the absence of contrast. IMPRESSION: Cardiomegaly and dependent right atelectasis. No pleural effusion. Minimal mediastinal adenopathy measures up to 1.3 cm Approved by: Tono Jane M.D. on 01/07/2023 at 10:11
[2023-01-07] MEDS: FLUoxetine 20 MG CAPSULE PO (10:36)
[2023-01-07] MEDS: ASPIRIN EC 81 MG TABLET PO (10:36)
[2023-01-07] MEDS: cefTRIAXone 2,000 MG in SODIUM CHLORIDE 0.9% 100 ML 200 MG IV (10:36)
[2023-01-07] MEDS: SODIUM CHLORIDE 0.9% 1,000 ML 50 ML IV (10:37)
[2023-01-07] MEDS: ALBUTEROL/IPRATROPIUM 3 ML AMPUL INH ×3 (15:48→23:00)
--- NOTE | 2023-01-07 18:24 | PM.PN.1 ---
Subjective Subjective Date Patient Seen: 01/07/23 Interval history: She is seen today to follow-up her pneumonia, possible left pleural effusion, E coli bacteremia and chronic kidney disease. Her temperature has reached 100.8 in the last 24 hours. Her creatinine has dropped from 2.19 down to 1.77. Her 01/06 hemoglobin was 11.2. The white blood count was 13.2. Her chest x-ray appears to show a large left pleural effusion so a chest CT was done which confirms there is no pleural effusion. She explains that she has been living at the [facility] for 1 year. Exam Vital Signs (past 8 hours): - 01/07/23 10:25 01/07/23 12:00 01/07/23 12:00 Temperature 101.3 F H Pulse Rate 97 H Respiratory Rate 30 H Blood Pressure 130/87 Pulse Oximetry 96 Oxygen Delivery Method Nasal Cannula Oxygen Flow Rate 01/07/23 12:47 01/07/23 14:00 01/07/23 16:00 Temperature 101.7 F H 101.7 F H Pulse Rate 96 H 100 H 100 H Respiratory Rate 22 36 H 33 H Blood Pressure Pulse Oximetry 95 95 94 Oxygen Delivery Method Nasal Cannula Oxygen Flow Rate 2 01/07/23 16:00 Temperature Pulse Rate Respiratory Rate Blood Pressure 96/65 Pulse Oximetry Oxygen Delivery Method Oxygen Flow Rate Fraction of Inspired Oxygen 30 SaO2/FiO2 Ratio 313 Oxygen Delivery Method Nasal Cannula Oxygen Flow Rate 2 Narrative Exam Narrative: She is alert and oriented. There is no apparent distress. Heart is regular rate and rhythm without murmur Lungs are clear to auscultation with diminished breath sounds on the left base. There is no ankle edema. Objective Labs 01/06/23 04:05 01/07/23 04:11 Labs: Laboratory Results - last 24 hr 01/07/23 04:11 Sodium 137 Potassium 3.5 Chloride 101 Carbon Dioxide 27 BUN 38 H Creatinine 1.77 H Estimated GFR 32 L BUN/Creatinine Ratio 21.5 Glucose 173 H Calcium 8.7 PFSH Medical History PONCE (obstructive sleep apnea) Chronic hypoxemic respiratory failure COPD (chronic obstructive pulmonary disease) DM2 (diabetes mellitus, type 2) HTN (hypertension) Thyroiditis Systolic and diastolic CHF, chronic Obesity Surgical History S/P hernia surgery Family History Mother No pertinent past medical history Father No pertinent past medical history Social History household members: other Smoking Status: Former smoker alcohol intake: former Assessment & Plan Assessment & Plan narrative: 1. UTI, POA and active. 2. E coli bacteremia, present on admission and active. 3. RLL PNA, POA and active. 4. Acute on chronic hypoxic respiratory failure, POA and active. 5. COPD, POA and stable. 6. DM 2, POA and stable 7. CKD 3, POA and stable. 8. Mild septic encephalopathy, POA. 9. Chronic diastolic HF, POA and stable. 10. Mild demand ischemia, POA. 11. Morbid obesity, POA. 12. CT chest shows that the left base process is cardiomegaly and not a pleural effusion Plan: -IV Ceftriaxone, (Pansensitive Ecoli) -monitor breathing and O2 demand. Continue bronchodilators and will use BiPAP if needed based on her symptoms. -monitor mental status. -Cont glargine 22 BID and medium correctional lispro. Full code. Proxy decision maker, Roxy Berry, daughter. Quality VTE Deep Vein Thrombosis/Pulmonary Embolism Present on Admission: No
[2023-01-07] MEDS: GABAPENTIN 300 MG CAPSULE PO (20:51)
[2023-01-07] MEDS: buPROPion SR 150 MG TAB PO (20:51)
[2023-01-07] MEDS: ACETAMINOPHEN 325 MG TABLET 650 MG PO (20:51)
[2023-01-07] MEDS: ATORVASTATIN 20 MG TABLET 80 MG PO (20:51)
[2023-01-07] MEDS: TRAZODONE 50 MG TABLET PO (20:51)
[2023-01-07 21:39] LABS: BUN Creatinine Ratio 20.1 (6-22); Blood Urea Nitrogen 30 mg/dL (7-17); Calcium 8.9 mg/dL (8.4-10.2); Carbon Dioxide 27 mmol/L (22-32); Chloride 100 mmol/L (98-107); Estimated Glomerular Filt Rate 40 mL/min (>60); Glucose 188 mg/dL (80-110); HEMOLYSIS < 15 (0-50); Potassium 3.7 mmol/L (3.4-5.1); Sodium 136 mmol/L (137-145)
[2023-01-07 21:50] LABS: Troponin I 0.064 ng/mL (0.01-0.034)
[2023-01-08] VITALS (23 sets, daily range): BP systolic 87–124; BP diastolic 50–86; PULSE 75–109; RESP 14–38; TEMP 24–38.8; O2SAT 80–98
[2023-01-08 04:43] LABS: BUN Creatinine Ratio 19.3 (6-22); Blood Urea Nitrogen 29 mg/dL (7-17); Calcium 9.1 mg/dL (8.4-10.2); Carbon Dioxide 28 mmol/L (22-32); Chloride 102 mmol/L (98-107); Estimated Glomerular Filt Rate 39 mL/min (>60); Glucose 121 mg/dL (80-110); HEMOLYSIS < 15 (0-50); Potassium 3.9 mmol/L (3.4-5.1); Sodium 138 mmol/L (137-145)
[2023-01-08] MEDS: LEVOTHYROXINE 100 MCG TABLET PO (06:07)
[2023-01-08] MEDS: LEVOTHYROXINE 75 MCG TABLET PO (06:07)
[2023-01-08] MEDS: SODIUM CHLORIDE 0.9% 1,000 ML 50 ML IV (06:48)
[2023-01-08] MEDS: BUDESONIDE 0.5 MG/2 ML NEB INH (07:14)
[2023-01-08] MEDS: ALBUTEROL/IPRATROPIUM 3 ML AMPUL INH ×5 (07:14→22:15)
[2023-01-08] MEDS: MAGNESIUM OXIDE 400 MG TABLET 200 MG PO (08:16)
[2023-01-08] MEDS: HEPARIN 5,000 UNIT/ML VIAL 5000 UNIT SUBCUT ×2 (08:16→21:49)
[2023-01-08] MEDS: FENOFIBRATE, MICRONIZED 67 MG CAPSULE 201 MG PO (08:17)
[2023-01-08] MEDS: ASPIRIN EC 81 MG TABLET PO (08:17)
[2023-01-08] MEDS: FLUoxetine 20 MG CAPSULE PO (08:17)
[2023-01-08] MEDS: INSULIN GLARGINE 100 UNIT/ML 3ML PEN 22 UNIT SUBCUT ×2 (08:18→21:48)
[2023-01-08] MEDS: CYANOCOBALAMIN (VITAMIN B-12) 500 MCG TABLET PO (08:18)
[2023-01-08] MEDS: MONTELUKAST 10 MG TABLET PO (08:18)
[2023-01-08 10:31] LABS: Add Manual Diff / Slide Review NO; Basophils Absolute Auto 0 /uL (0-100); Basophils Percent Auto 0.2 % (0-2); Eosinophils Absolute Auto 100 /uL (0-450); Eosinophils Percent Auto 1.1 % (2-4); Hematocrit 29.7 % (36-46); Hemoglobin 9.9 g/dL (12.0-16.0); Lymphocytes Absolute Auto 800 /uL (1100-4500); Lymphocytes Percent Auto 7.9 % (25-40); Mean Corpuscular HGB Conc 33.4 % (30-36); Mean Corpuscular Hemoglobin 33.1 PG (26-34); Monocytes Absolute Auto 800 /uL (0-900); Monocytes Percent Auto 7.9 % (3-14); Neutrophils Absolute Auto 8000 /uL (1500-7000); Neutrophils Percent Auto 82.9 % (50-75); Platelet Count 160 X10^3/uL (150-400); Red Cell Distribution Width 14.5 % (11.6-14.8); White Blood Cell Count 9.6 X10^3/uL (4.5-11.0)
[2023-01-08] MEDS: cefTRIAXone 2,000 MG in SODIUM CHLORIDE 0.9% 100 ML 200 MG IV (10:38)
[2023-01-08 10:59] LABS: Procalcitonin 6.82 ng/mL (<0.5)
[2023-01-08] MEDS: INSULIN LISPRO 100 UNIT/ML 3ML VIAL SUBCUT ×4 (12:15→17:06)
[2023-01-08] MEDS: ALBUTEROL 2.5 MG/3 ML NEB (ADULT) INH ×2 (12:54→20:00)
[2023-01-08] MEDS: OXYMETAZOLINE NASAL SPRAY 30 ML 2 SPRAYS NASAL (13:40)
--- NOTE | 2023-01-08 17:52 | CM.DPC ---
DCP Continued: [employer]ANNER reviewed EMR. Per Xu at [facility], unable to start [facility] auth until Monday. CM team will follow closely with August in am to coordinate d/c plan pending auth. Unable to meet with patient today due to triaging needs. Will confirm d/c plan with patient and DPOA/dtr tomorrow. Plan: likely return to [facility] when medically stable. CM team will continue to follow closely. GA Han
--- NOTE | 2023-01-08 18:06 | P.PN_ITS ---
Subjective Subjective Interval history: Patient now at baseline O2 of 2L. Awaiting SNF auth. Still coughing but she says breathing has improved. Exam Vital Signs (past 8 hours): - 01/08/23 12:00 01/08/23 14:51 01/08/23 16:00 Temperature 97.8 F 101.3 F H Pulse Rate 93 H 100 H Respiratory Rate 19 20 Blood Pressure 99/62 117/77 Pulse Oximetry 94 97 Oxygen Delivery Method Nasal Cannula Oxygen Flow Rate 4 2 4 01/08/23 17:46 Temperature Pulse Rate 102 H Respiratory Rate 22 Blood Pressure Pulse Oximetry Oxygen Delivery Method Nasal Cannula Oxygen Flow Rate 4 Fraction of Inspired Oxygen 30 SaO2/FiO2 Ratio 313 Oxygen Delivery Method Nasal Cannula Oxygen Flow Rate 4 Narrative Exam Narrative: She is alert and oriented. There is no apparent distress. Heart is regular rate and rhythm without murmur Lungs are clear to auscultation with diminished breath sounds on the left base. There is no ankle edema. Objective Labs 01/08/23 10:25 01/08/23 04:12 Labs: Laboratory Results - last 24 hr 01/07/23 01/08/23 01/08/23 21:13 04:12 10:25 WBC 9.6 RBC 3.00 L Hgb 9.9 L Hct 29.7 L MCV 99.0 MCH 33.1 MCHC 33.4 RDW 14.5 Plt Count 160 Neut % (Auto) 82.9 H Lymph % (Auto) 7.9 L Andrews % (Auto) 7.9 Eos % (Auto) 1.1 L Baso % (Auto) 0.2 Neut # (Auto) 8000 H Lymph # (Auto) 800 L Andrews # (Auto) 800 Eos # (Auto) 100 Baso # (Auto) 0 Sodium 136 L 138 Potassium 3.7 3.9 Chloride 100 102 Carbon Dioxide 27 28 BUN 30 H 29 H Creatinine 1.49 H 1.50 H Estimated GFR 40 L 39 L BUN/Creatinine Ratio 20.1 19.3 Glucose 188 H 121 H Calcium 8.9 9.1 Magnesium 2.0 Troponin I 0.064 H Procalcitonin 6.82 H PFSH Medical History PONCE (obstructive sleep apnea) Chronic hypoxemic respiratory failure COPD (chronic obstructive pulmonary disease) DM2 (diabetes mellitus, type 2) HTN (hypertension) Thyroiditis Systolic and diastolic CHF, chronic Obesity Surgical History S/P hernia surgery Family History Mother No pertinent past medical history Father No pertinent past medical history Social History household members: other Smoking Status: Former smoker alcohol intake: former Assessment & Plan Assessment & Plan narrative: 1. Pyelonephritis, POA and active. 2. E coli bacteremia, present on admission and active. 3. RLL PNA ruled out, POA and active. Read as PNA on CXR but atelectasis on CT chest. 4. Acute on chronic hypoxic respiratory failure, POA and active. 5. COPD, POA and stable. 6. DM 2, POA and stable 7. CKD 3, POA and stable. 8. Mild septic encephalopathy, POA. Resolved. 9. Chronic diastolic HF, POA and stable. 10. Mild demand ischemia, POA. 11. Morbid obesity, POA. 12. CT chest shows that the left base process is cardiomegaly and not a pleural effusion, RLL process is atelectasis not PNA. Plan: -IV Ceftriaxone 2g daily then change to po levaquin on dc to complete 2 weeks, (Pansensitive Ecoli) with >100 WBC on UA. Consider CT KUB ordered and broadening to ertapenem due to history of ESBL if not improving. -monitor breathing and O2 demand. Continue bronchodilators and will use BiPAP if needed based on her symptoms. -monitor mental status. -Cont glargine 22 BID and medium correctional lispro. Full code. Proxy decision maker, Roxy Berry, daughter. Dispo: Back to SNF awaiting auth. Quality VTE Deep Vein Thrombosis/Pulmonary Embolism Present on Admission: No
[2023-01-08] MEDS: GABAPENTIN 300 MG CAPSULE PO (21:50)
[2023-01-08] MEDS: buPROPion SR 150 MG TAB PO (21:50)
[2023-01-08] MEDS: ATORVASTATIN 20 MG TABLET 80 MG PO (21:50)
[2023-01-08] MEDS: TRAZODONE 50 MG TABLET PO (21:50)
[2023-01-09] VITALS (24 sets, daily range): BP systolic 111–120; BP diastolic 67–82; PULSE 91–103; RESP 14–36; TEMP 31–36.6; O2SAT 90–98
[2023-01-09] MEDS: SODIUM CHLORIDE 0.9% 1,000 ML 50 ML IV (04:36)
[2023-01-09 04:54] LABS: Add Manual Diff / Slide Review NO; Basophils Absolute Auto 0 /uL (0-100); Basophils Percent Auto 0.4 % (0-2); Eosinophils Absolute Auto 200 /uL (0-450); Eosinophils Percent Auto 2.4 % (2-4); Hematocrit 29.2 % (36-46); Hemoglobin 9.7 g/dL (12.0-16.0); Lymphocytes Absolute Auto 1200 /uL (1100-4500); Lymphocytes Percent Auto 13.7 % (25-40); Mean Corpuscular HGB Conc 33.2 % (30-36); Mean Corpuscular Hemoglobin 32.8 PG (26-34); Mean Corpuscular Volume 98.6 fL (80-100); Monocytes Absolute Auto 900 /uL (0-900); Monocytes Percent Auto 10.4 % (3-14); Neutrophils Absolute Auto 6600 /uL (1500-7000); Neutrophils Percent Auto 73.1 % (50-75); Platelet Count 177 X10^3/uL (150-400); Red Blood Cell Count 2.97 X10^6/uL (4.0-5.2); Red Cell Distribution Width 14.2 % (11.6-14.8)
[2023-01-09 04:59] LABS: BUN Creatinine Ratio 20.6 (6-22); Blood Urea Nitrogen 27 mg/dL (7-17); Calcium 9.3 mg/dL (8.4-10.2); Carbon Dioxide 27 mmol/L (22-32); Chloride 104 mmol/L (98-107); Estimated Glomerular Filt Rate 46 mL/min (>60); Glucose 116 mg/dL (80-110); HEMOLYSIS 16 (0-50); Potassium 3.9 mmol/L (3.4-5.1); Sodium 137 mmol/L (137-145)
[2023-01-09 05:16] LABS: Procalcitonin 4.97 ng/mL (<0.5)
[2023-01-09] MEDS: ALBUTEROL/IPRATROPIUM 3 ML AMPUL INH ×5 (06:19→23:23)
[2023-01-09] MEDS: LEVOTHYROXINE 100 MCG TABLET PO (06:34)
[2023-01-09] MEDS: LEVOTHYROXINE 75 MCG TABLET PO (06:34)
--- NOTE | 2023-01-09 08:01 | DI.CT.S_ITS ---
PROCEDURE: CT ABDOMEN PELVIS WO CON INDICATIONS: bacteremia, felisa, stone? TECHNIQUE: Axial sections were acquired from the lung bases to the pubic symphysis. Coronal and sagittal reformats were performed. For radiation dose reduction, the following was used: automated exposure control, adjustment of mA and/or kV according to patient size. COMPARISON: , CT, CT CHEST WO CON, 01/07/2023, 9:15. , CT, CT KIDNEY URETER BLADDER (KUB), 08/15/2022, 19:01. US, US ABDOMEN LIMITED, 05/26/2022, 11:57. , CT, CT ABDOMEN PELVIS W CON, 05/25/2022, 14:22. , US, US ABDOMEN LIMITED, 08/18/2022, 13:49. FINDINGS: Image quality: Excellent. Lung bases: Bibasilar infiltrate atelectasis. Trace pleural effusions bilaterally. Heart: Mild cardiomegaly. No pericardial effusion. Mild coronary artery calcification URINARY: Right Kidney: No stones or hydronephrosis. Right Ureter: No hydroureter. Left Kidney: No stones. Mild hydronephrosis and perinephric stranding. Left Ureter: Mild hydroureter and periureteral stranding. Bladder: There is a Babcock catheter within the bladder. Bladder is semi contracted. Bladder wall is thickened. No stones. ABDOMEN: Liver: Normal size. Mild hepatic steatosis. Gallbladder: Gallbladder is contracted. Biliary ducts: Unremarkable. Pancreas: Unremarkable. Spleen: Unremarkable. Adrenal Glands: Unremarkable. Stomach and Bowel: Stomach, small bowel loops, and colon are unremarkable. Peritoneum: No abnormal intraperitoneal fluid. No free air. Ventral Wall: No hernia. Abdominal Nodes: No enlarged retroperitoneal or mesenteric lymph nodes. Vessels: Aorta and inferior vena cava are normal in size. PELVIS: Pelvic Organs: Unremarkable. Pelvic Nodes: Unremarkable. Miscellaneous: No inguinal hernias are seen. Bones: Unremarkable. IMPRESSION: 1. No urinary stones are identified. There is mild left hydronephrosis and hydroureter with mild perinephric stranding and periureteral stranding. 2. Bladder wall appears mildly thickened suggesting cystitis. 3. Small pleural effusions bilaterally with bibasilar consolidations or atelectasis. Dictated by: Cate Gooden M.D. on 01/09/2023 at 9:25 Approved by: Cate Gooden M.D. on 01/09/2023 at 9:32
[2023-01-09] MEDS: FENOFIBRATE, MICRONIZED 67 MG CAPSULE 201 MG PO (09:24)
[2023-01-09] MEDS: ASPIRIN EC 81 MG TABLET PO (09:24)
[2023-01-09] MEDS: CYANOCOBALAMIN (VITAMIN B-12) 500 MCG TABLET PO (09:24)
[2023-01-09] MEDS: DOCUSATE 100 MG CAPSULE PO ×2 (09:24→20:08)
[2023-01-09] MEDS: MAGNESIUM OXIDE 400 MG TABLET 200 MG PO (09:24)
[2023-01-09] MEDS: MONTELUKAST 10 MG TABLET PO (09:25)
[2023-01-09] MEDS: INSULIN GLARGINE 100 UNIT/ML 3ML PEN 22 UNIT SUBCUT ×2 (09:25→20:09)
[2023-01-09] MEDS: HEPARIN 5,000 UNIT/ML VIAL 5000 UNIT SUBCUT ×2 (09:25→20:09)
[2023-01-09] MEDS: FLUoxetine 20 MG CAPSULE PO (09:25)
[2023-01-09] MEDS: ALBUTEROL 2.5 MG/3 ML NEB (ADULT) INH (09:27)
[2023-01-09] MEDS: cefTRIAXone 2,000 MG in SODIUM CHLORIDE 0.9% 100 ML 200 MG IV (09:40)
--- NOTE | 2023-01-09 10:50 | OT.IP.EVAL ---
Current Diagnoses Sepsis, unspecified organism (01/05/23) Past Medical History (Last Reviewed 01/05/23 @ 11:28 by Triny Sorenson PA-C) Chronic hypoxemic respiratory failure COPD (chronic obstructive pulmonary disease) DM2 (diabetes mellitus, type 2) HTN (hypertension) Obesity PONCE (obstructive sleep apnea) Systolic and diastolic CHF, chronic Thyroiditis Surgical History (Last Reviewed 01/05/23 @ 11:28 by Triny Sorenson PA-C) S/P hernia surgery Occupational Therapy Inpatient Evaluation/Re-Eval M1 PT/OT-IP Prior Functional Status Start: 01/09/23 09:37 Freq: NEEDED Status: Active Protocol: Document 01/09/23 12:25 CGR (Rec: 01/09/23 12:40 CGR [id number]) Medical Review Prior Functional Status Medical History Reviewed Yes Communication Pt is an effective verbal communicator. Mobility and Gait Pt was bed/w/c bound at baseline. Per patient, she was able to stand pivot to the w/ c with assist of staff or use of bogdan. She needed assist with bed mobility and states that she hasn't walked in about a year. Activities of Daily Living and IADL's Pt states that she needs assist with toileting and LB dressing but performs UB dressing and grooming without assist. She is able to feed herself. Social History Household Members other Living Arrangements Skilled Nurse Facility Home Equipment Front Wheel Walker,Manual Wheelchair,Hospital Bed Employment Status Retired Additional Social History Comment Pt lives at [facility] M2 OT-IP Current Condition Start: 01/09/23 12:25 Freq: Status: Active Protocol: Document 01/09/23 12:25 CGR (Rec: 01/09/23 12:40 CGR [id number]) Occupational Therapy Current Condition Current Condition Evaluation Date 01/09/23 Treatment Diagnosis RLL PNA, UTI, hypoxic respiratory failure Diagnosis Onset Date 01/05/23 M3 OT- IP Subjective and Pain Start: 01/09/23 12:25 Freq: Status: Active Protocol: Document 01/09/23 12:25 CGR (Rec: 01/09/23 12:40 CGR [id number]) OT- Subjective Occupational Therapy Visit Type Type Initial Evaluation Visit Start Time 10: Visit Stop Time 10:50 Total Visit Minutes 27 Notes Per CM, please see pt TOMMY for guidence on discharge back to SNF. OT Pain Assessment Pain When Pain Assessed At Rest Pain Present Pain Present Pain Reported Location Chest Intensity 3 Scale Used Numeric (0 - 10) Pain Behaviors Facial Grimacing,Guarding Management Techniques Distraction,Modification of Treatment,Re-positioning M4 OT- IP ADL's Start: 01/09/23 12:25 Freq: Status: Active Protocol: Document 01/09/23 12:25 CGR (Rec: 01/09/23 12:40 CGR [id number]) OT [id number] Comments OT Self-Feeding Comments not meal time OT ADL-Grooming General Evaluation Grooming Ability Standby Assistance Areas Needing Assistance Face Washing Comments OT Grooming Comments seated in bed OT ADL-Oral Care General Eval Oral Care Ability Standby Assistance Areas of Assistance Brushing Teeth Comments Oral Care Comments seated in bed OT ADL-Dressing General Eval Lower Body Dressing Ability Total Assistance Areas Needing Assistance Socks OT ADL-Toileting General Evaluation Toileting Ability Total Assistance Comments OT Toileting Comments philippe OT ADL-Bathing Comments OT Bathing Comments not performed M5 OT- IP IADL's Start: 01/09/23 12:25 Freq: Status: Active Protocol: Document 01/09/23 12:25 CGR (Rec: 01/09/23 12:40 CGR [id number]) OT-Instrumental Activities of Daily Living Deficits IADL Deficits Identified No Deficits Home Safety Awareness Awareness of Need for Assistance at Home Good Awareness Ability to Problem Solve Emergency Able to Problem Solve Situations Medication Management Medication Management Caregiver Administers Money Management Money Management Caregiver Provides Assistance Meal Preparation Meal Preparation Caregiver Provides Assist Roll Forger Roll Forger Caregiver Provides Assist Driving Driving Comments Pt does not drive at baseline M6 OT- IP Functional Cognition Start: 01/09/23 12:25 Freq: Status: Active Protocol: Document 01/09/23 12:25 CGR (Rec: 01/09/23 12:40 CGR [id number]) Cognitive Factors Limiting Selfcare Function Cognitive Ability Level of Alertness Alert Patient Orientation Name,Age,Birthday,Month,Date, Year,Day of Week,Place, Situation Attention Span Ability Capable of Focused Attention, Capable of Sustained Attention OT- Vision and Hearing OT- Hearing Assessment OT- Hearing Assessment WFL OT- Vision Assessment Visual Acuity Glasses For Reading Visual Attentiveness WFL Occular Pursuits WFL Vision Assessment Comments pt without smooth pursuits but able to track M7 OT- IP Mobility and Balance Start: 01/09/23 12:25 Freq: Status: Active Protocol: Document 01/09/23 12:25 CGR (Rec: 01/09/23 12:40 CGR [id number]) OT- Bed Mobility Assessment Rolling Type of Rolling Roll to Right Level of Assistance Maximum Assistance,Total Assistance,Head of Bed Elevated,Bedrails Supine to Sit Supine to Sit Assist Maximum Assistance,Total Assistance,1 Person Assistance ,Head of Bed Elevated,Bedrails Scooting Scooting to Edge of Bed Maximum Assistance,Total Assistance,Head of Bed Elevated,Bedrails OT-Transfer Assessment Comments Mobility Comments did not perform OT- Gait Assessment Comments Gait Ability Comments did not perform OT- Balance Assessment Sitting Balance and Reactions Static Sitting Balance Ability Poor Dynamic Sitting Balance Ability Poor Comments Other Balance Tests/Deviations/Treatment Pt was unable to maintain : sitting balance seated EOB without assist. M8 OT- IP Objective Assessments Start: 01/09/23 12:25 Freq: Status: Active Protocol: Document 01/09/23 12:25 CGR (Rec: 01/09/23 12:40 CGR [id number]) OT Gross Range of Motion Upper Extremity Range of Motion Assessment Within Functional Limits OT Strength Upper Extremity Strength Assessment Within Functional Limits Comments Strength Comments 3+/5 throughout OT- Coordination Assessment Upper Extremity Finger to Nose Test Within Functional Limits Finger Tapping Test Within Functional Limits OT-Muscle Tone Assessment Muscle Tone WNL Yes OT Sensation Assessment Edema Edema Absent M9 OT- IP Assessment and Plan Start: 01/09/23 12:25 Freq: Status: Active Protocol: Document 01/09/23 12:25 CGR (Rec: 01/09/23 12:40 CGR [id number]) OT Summary Assessment and Plan Potential Rehabilitation Potential Fair Analytic Complexity at Evaluation Moderate Summary OT Impairments Pain,Strength,Balance, Functional Mobility,Grooming, Dressing,Toileting,Bathing, Toilet Transfers,Shower Transfers,Activity Tolerance Progress Towards Goals Slow Progress due to Medical Issues,Slow Progress due to Activity Tolerance Assessment Summary Pt presents as a moderate complexity evaluation s/p admit for RLL PNA. Pt states that she feels weaker than her baseline and was unable to tolerate sitting upright EOB d /t difficulty breathing and generalized weakness. Pt may benefit from continued therapy services and SNF upon discharge. Goals Grooming Goal Independent Dressing Goal Independent,Senior Energy Analyst,Sock Aid Toileting Goal Minimal Assistance Bathing Goal Minimal Assistance Toilet Transfer Goal Minimal Assistance Shower Transfer Goal Minimal Assistance Days to Meet Goals 30 Frequency of Treatment Frequency Of Treatment Once a Day Treatment Plan OT Treatment Plan ADL Training,Functional Mobility,Therapeutic Exercises ,Patient/Family Education, Discharge Planning Other Treatment Recommendations and Next Attempted EOB sitting, UE Treatment Focus therex Discharge Recommendations OT Discharge Recommendations SNF Rehab Transportation Needs at Discharge Stretcher/Ambulance
[2023-01-09] MEDS: INSULIN LISPRO 100 UNIT/ML 3ML VIAL SUBCUT ×5 (12:27→20:09)
--- NOTE | 2023-01-09 12:30 | PT-IP ANOTE ---
Received PT orders and completed chart review. Met with pt briefly who was unable to clarify whether she is bogdan dependent at baseline vs possibly working on transfers at her [facility]. Regardless, she refused mobility assessment secondary to right knee pain. Queried about the nature of her pain, pt states it is chronic but she is not willing to get out of bed today or even to sit up at edge of bed. Discussed with pt the risks of immobility in the hospital setting and she continued to refuse. PT asked nursing to call if pt had any mobility related needs today. Will follow up as staffing allows. - Oneyda Maciel, PT, DPT
--- NOTE | 2023-01-09 15:54 | CM.DPC ---
DCP Cont: Per MD, pt likely stable for d/c to SNF today. SW spoke to admissions at [facility] and they request PT/OT eval towards insurance auth or denial as pt is a shelter resident there and to bill Medicaid they need [facility] to review to determine if they will auth SNF or deny and then Medicaid can be billed. PT/OT orders placed. Per OT, would recommend SNF and eval note complete. [facility] sent to [facility] for review for auth or denial for SNF rehab. Plan: SW to follow closely for [facility] review to determine pt d/c back to [facility] for SNF rehab vs SNF shelter care. GA Pruitt
--- NOTE | 2023-01-09 16:47 | PT-IP ANOTE ---
PT checks on pt one more time this afternoon d/t this PT works closely with pt at [facility]. Pt is sleeping soundly with use of what appears to be BiPap on second attempt. At baseline, pt can perform bed mobility with superv with HOB increased and use of rail. She requires min A with use of RW to take a few steps from the bed to her w/c and back. She performed this most recently with this therapist one week ago. Will con't PT efforts next date.
--- NOTE | 2023-01-09 17:43 | PM.PN.1 ---
Subjective Subjective Date Patient Seen: 01/09/23 Time Patient Seen: 08:00 Interval history: She feels her breathing is improved and feels ready to go home. Exam Vital Signs (past 8 hours): - 01/09/23 10:00 01/09/23 12:00 01/09/23 12:17 Pulse Rate 103 H 93 H 102 H Respiratory Rate 34 H 35 H 20 Pulse Oximetry 92 94 92 Oxygen Delivery Method Nasal Cannula Oxygen Flow Rate 2 Fraction of Inspired Oxygen 28 01/09/23 14:00 01/09/23 14:24 01/09/23 15:47 Pulse Rate 97 H 100 H Respiratory Rate 31 H 33 H Pulse Oximetry 94 95 Oxygen Delivery Method BiPAP Oxygen Flow Rate Fraction of Inspired Oxygen 30 30 01/09/23 16:00 01/09/23 17:26 01/09/23 17:26 Pulse Rate 96 H Respiratory Rate 31 H Pulse Oximetry 94 93 Oxygen Delivery Method BiPAP Oxygen Flow Rate Fraction of Inspired Oxygen 30 30 Fraction of Inspired Oxygen 30 SaO2/FiO2 Ratio 310 Oxygen Delivery Method BiPAP Oxygen Flow Rate 2 Narrative Exam Narrative: GEN: no acute distress CV: regular rate and rhythm PULM: clear bilaterally EXT: no edema Objective Labs 01/09/23 04:09 01/09/23 04:09 Labs: Laboratory Results - last 24 hr 01/09/23 04:09 WBC 9.0 RBC 2.97 L Hgb 9.7 L Hct 29.2 L MCV 98.6 MCH 32.8 MCHC 33.2 RDW 14.2 Plt Count 177 Neut % (Auto) 73.1 Lymph % (Auto) 13.7 L [place] % (Auto) 10.4 Eos % (Auto) 2.4 Baso % (Auto) 0.4 Neut # (Auto) 6600 Lymph # (Auto) 1200 [place] # (Auto) 900 Eos # (Auto) 200 Baso # (Auto) 0 Sodium 137 Potassium 3.9 Chloride 104 Carbon Dioxide 27 BUN 27 H Creatinine 1.31 H Estimated GFR 46 L BUN/Creatinine Ratio 20.6 Glucose 116 H Calcium 9.3 Procalcitonin 4.97 H PFSH Medical History PONCE (obstructive sleep apnea) Chronic hypoxemic respiratory failure COPD (chronic obstructive pulmonary disease) DM2 (diabetes mellitus, type 2) HTN (hypertension) Thyroiditis Systolic and diastolic CHF, chronic Obesity Surgical History S/P hernia surgery Family History Mother No pertinent past medical history Father No pertinent past medical history Social History household members: other Smoking Status: Former smoker alcohol intake: former Assessment & Plan Assessment & Plan narrative: 1. Pyelonephritis, POA and active. 2. E coli bacteremia, present on admission and active. -e. coli bacteremia noted on blood cultulre -has been treated with IV antibiotics -given multiple recent infections with e. coli bacteremia, CT abdomen ordere with no stones noted, and mild hydronephrosis likely from infection 3. RLL PNA ruled out - PNA on CXR but atelectasis on CT chest. 4. Acute on chronic hypoxic respiratory failure -resolved, back to home O2 settings 5. COPD -continue nebs prn 6. DM 2, POA and stable -continue insulin and sliding scale 7. CKD 3, POA and stable. 8. Mild septic encephalopathy -resolved 9. Chronic diastolic HF -no in exacerbation 10. Mild demand ischemia -resolved 11. Morbid obesity, POA. Dispo: medically stable for discharge, awaiting snf placement Quality VTE Deep Vein Thrombosis/Pulmonary Embolism Present on Admission: No
[2023-01-09] MEDS: ATORVASTATIN 20 MG TABLET 80 MG PO (20:08)
[2023-01-09] MEDS: GABAPENTIN 300 MG CAPSULE PO (20:08)
[2023-01-09] MEDS: TRAZODONE 50 MG TABLET PO (20:08)
[2023-01-09] MEDS: buPROPion SR 150 MG TAB PO (20:08)
[2023-01-09] MEDS: SENNOSIDES 8.6 MG TABLET 17.2 MG PO (20:08)
[2023-01-10] VITALS (16 sets, daily range): BP systolic 114–134; BP diastolic 68–93; PULSE 88–103; RESP 14–37; TEMP 36.4–36.9; O2SAT 92–96
[2023-01-10] MEDS: SODIUM CHLORIDE 0.9% 1,000 ML 50 ML IV (01:15)
[2023-01-10 05:42] LABS: Add Manual Diff / Slide Review NO; Basophils Absolute Auto 0 /uL (0-100); Basophils Percent Auto 0.3 % (0-2); Eosinophils Absolute Auto 300 /uL (0-450); Eosinophils Percent Auto 2.5 % (2-4); Hematocrit 29.3 % (36-46); Hemoglobin 9.7 g/dL (12.0-16.0); Lymphocytes Absolute Auto 1400 /uL (1100-4500); Mean Corpuscular HGB Conc 33.1 % (30-36); Mean Corpuscular Hemoglobin 32.4 PG (26-34); Mean Corpuscular Volume 97.9 fL (80-100); Monocytes Absolute Auto 800 /uL (0-900); Neutrophils Absolute Auto 8000 /uL (1500-7000); Neutrophils Percent Auto 76.2 % (50-75); Platelet Count 230 X10^3/uL (150-400); Red Blood Cell Count 2.99 X10^6/uL (4.0-5.2); Red Cell Distribution Width 14.4 % (11.6-14.8); White Blood Cell Count 10.5 X10^3/uL (4.5-11.0)
[2023-01-10 06:40] LABS: BUN Creatinine Ratio 22.6 (6-22); Blood Urea Nitrogen 31 mg/dL (7-17); Calcium 10.2 mg/dL (8.4-10.2); Carbon Dioxide 28 mmol/L (22-32); Chloride 105 mmol/L (98-107); Estimated Glomerular Filt Rate 44 mL/min (>60); Glucose 162 mg/dL (80-110); HEMOLYSIS < 15 (0-50); Sodium 138 mmol/L (137-145)
[2023-01-10] MEDS: LEVOTHYROXINE 75 MCG TABLET PO (06:41)
[2023-01-10] MEDS: LEVOTHYROXINE 100 MCG TABLET PO (06:41)
[2023-01-10 06:55] LABS: Procalcitonin 3.18 ng/mL (<0.5)
[2023-01-10] MEDS: BUDESONIDE 0.5 MG/2 ML NEB INH (07:15)
[2023-01-10] MEDS: ALBUTEROL/IPRATROPIUM 3 ML AMPUL INH ×2 (07:15→10:02)
[2023-01-10] MEDS: cefTRIAXone 2,000 MG in SODIUM CHLORIDE 0.9% 100 ML 200 MG IV (08:48)
[2023-01-10] MEDS: FLUoxetine 20 MG CAPSULE PO (08:48)
[2023-01-10] MEDS: MONTELUKAST 10 MG TABLET PO (08:48)
[2023-01-10] MEDS: HEPARIN 5,000 UNIT/ML VIAL 5000 UNIT SUBCUT (08:48)
[2023-01-10] MEDS: CYANOCOBALAMIN (VITAMIN B-12) 500 MCG TABLET PO (08:48)
[2023-01-10] MEDS: FENOFIBRATE, MICRONIZED 67 MG CAPSULE 201 MG PO (08:48)
[2023-01-10] MEDS: INSULIN GLARGINE 100 UNIT/ML 3ML PEN 22 UNIT SUBCUT (08:49)
[2023-01-10] MEDS: INSULIN LISPRO 100 UNIT/ML 3ML VIAL SUBCUT ×4 (08:49→12:28)
[2023-01-10] MEDS: DOCUSATE 100 MG CAPSULE PO (08:49)
[2023-01-10] MEDS: MAGNESIUM OXIDE 400 MG TABLET 200 MG PO (08:51)
[2023-01-10] MEDS: ASPIRIN EC 81 MG TABLET PO (08:51)
--- NOTE | 2023-01-10 11:19 | CM.DPC ---
Addendum entered by GA Pruitt 01/10/23 11:51: ADD: PT/OT confirms pt safe for d/c via w/c transport today. BF Original Note: DCP SNF Discharge Per MD, pt remains medically stable to d/c back to SNF today. ADY spoke to admissions at [facility] and they received determination from Sunil and can accept pt today and confirmed no PASRR needed at this time. ADY faxed signed med list and orders to [facility] and awaiting d/c summary. [facility] can transport around 1300 and provided number to call RN report. ADY updated RN and provided report number and updated senior care specialist and CROSSCUTTER. ADY met bedside with pt and updated on above and she remains agreeable to d/c back to [facility] and PT/OT in now to confirm pt can tolerate w/c transport. Plan: Patient to d/c back to [facility] today via facility van at 1300 for rehab before transitioning back to her LTC placement there. GA Pruitt
--- NOTE | 2023-01-10 11:32 | PM.DS.1 ---
History of Present Illness History of Present Illness Date Patient Seen: 01/05/23 Time Patient Seen: 15:10 Date of Onset of Symptoms: 01/05/23 Chief complaint: Fever, SOB Narrative: Per admitting physician: Patient presents from LTC at [facility] with fevers and dyspnea. She has a H/O DM, COPD on chronic O2, CHF, and DM2 . She is full code and was recently intubated for respiratory failure. She denies a recent cough of dyspnea. She also denies urinary symptoms (dysuria or hematuria). She was found to have a UTI and RLL pneumonia. She was given broad spectrum Abx in ED. She has a recent urine culture with many resistances but was sensitive to Zosyn. No H/O MRSA. She denies confusion. A philippe is in place. Discharge Providers Provider Date of admission: 01/05/23 13:37 Discharge Date: 01/10/23 Primary care physician: Simone Rodgers MD Consults: 01/09/23 08:16 Consult to Occupational Therapy Evaluate & Treat Comment: Physician Instructions: Evaluate and treat Consult to Physical Therapy Evaluate & Treat Comment: Physician Instructions: Evaluate and Treat Discharge provider: Johnathan Ramirez MD Summary Hospital Course Discharge Diagnosis: 1. Acute pyelonephritis with sepsis with encephalopathy and respiratory failure 2. E. Coli bacteremia 3. Acute on chronic hypoxemic respiratory failure 4. COPD 5. Type 2 Diabetes on insulin 6. CKD stage 3 7. CHFpEF 8. Morbid obesity 9. Cardiac demand ischemia Hospital Course: Ms. Jett was admitted to the hospital and found to be septic. She ultimately had a urinary source and pyelonephritis. This led to E. coli bacteremia and urinary infection. Her infection was pansensitive. She was started on IV antibiotics and improved. She has had multiple UTIs in the past. She had abdominal imaging that was negative for stone or other anatomic abnormality. On day of discharge she was transitioned to oral levofloxacin or another nine days to complete a 14 day course of antibiotics for her bacteremia. She requires 2L oxygen at baseline and CPAP at night. She was discharged to SNF due to deconditioning. Exam Vital Signs (past 8 hours): - 01/10/23 04:00 01/10/23 04:00 01/10/23 04:12 Temperature 98.1 F Pulse Rate 94 H 88 94 H Respiratory Rate 30 H 30 H 33 H Blood Pressure 118/69 Pulse Oximetry 93 94 94 Oxygen Delivery Method Oxygen Flow Rate Fraction of Inspired Oxygen 0.30 01/10/23 04:12 01/10/23 05:00 01/10/23 06:00 Temperature Pulse Rate 91 H Respiratory Rate 27 H Blood Pressure 118/69 Pulse Oximetry 93 Oxygen Delivery Method Oxygen Flow Rate Fraction of Inspired Oxygen 30 01/10/23 07:18 01/10/23 07:42 01/10/23 08:00 Temperature Pulse Rate 93 H Respiratory Rate 24 Blood Pressure 118/69 Pulse Oximetry 94 Oxygen Delivery Method Nasal Cannula Nasal Cannula BiPAP Oxygen Flow Rate Fraction of Inspired Oxygen 28 30 01/10/23 08:00 01/10/23 08:00 01/10/23 10:00 Temperature Pulse Rate 92 H 94 H 101 H Respiratory Rate 30 H 29 H 27 H Blood Pressure 114/87 Pulse Oximetry 96 95 95 Oxygen Delivery Method Oxygen Flow Rate Fraction of Inspired Oxygen 01/10/23 10:02 01/10/23 10:44 01/10/23 10:44 Temperature Pulse Rate 100 H 103 H Respiratory Rate 22 37 H Blood Pressure 114/87 Pulse Oximetry 94 96 Oxygen Delivery Method Nasal Cannula Oxygen Flow Rate 2 Fraction of Inspired Oxygen 28 Fraction of Inspired Oxygen 28 SaO2/FiO2 Ratio 335 Oxygen Delivery Method Nasal Cannula Oxygen Flow Rate 2 Narrative Exam Narrative: GEN: no acute distress CV: regular rate and rhythm PULM: clear bilaterally EXT: no edema Objective Labs 01/10/23 04:10 01/10/23 04:10 Labs: Laboratory Results - last 24 hr 01/10/23 04:10 WBC 10.5 RBC 2.99 L Hgb 9.7 L Hct 29.3 L MCV 97.9 MCH 32.4 MCHC 33.1 RDW 14.4 Plt Count 230 Neut % (Auto) 76.2 H Lymph % (Auto) 13.0 L Gaines % (Auto) 8.0 Eos % (Auto) 2.5 Baso % (Auto) 0.3 Neut # (Auto) 8000 H Lymph # (Auto) 1400 Gaines # (Auto) 800 Eos # (Auto) 300 Baso # (Auto) 0 Sodium 138 Potassium 4.0 Chloride 105 Carbon Dioxide 28 BUN 31 H Creatinine 1.37 H Estimated GFR 44 L BUN/Creatinine Ratio 22.6 H Glucose 162 H Calcium 10.2 Procalcitonin 3.18 H PFSH Medical History PONCE (obstructive sleep apnea) Chronic hypoxemic respiratory failure COPD (chronic obstructive pulmonary disease) DM2 (diabetes mellitus, type 2) HTN (hypertension) Thyroiditis Systolic and diastolic CHF, chronic Obesity Surgical History S/P hernia surgery Family History Mother No pertinent past medical history Father No pertinent past medical history Social History household members: other Smoking Status: Former smoker alcohol intake: former Discharge Plan Discharge Plan Patient Disposition: SNF Transfer to: [facility] Discharge orders & Medications Prescriptions: New levofloxacin 750 mg tablet 750 mg PO DAILY Qty: 9 0RF Continued albuterol sulfate 90 mcg/actuation HFA aerosol inhaler 4 puff INHALATION Q4H PRN (Reason: Shortness Of Breath Or Wheezing) levothyroxine 175 mcg tablet 175 mcg PO DAILY potassium chloride 10 mEq tablet extended release 10 meq PO DAILY torsemide 10 mg tablet 10 mg PO DAILY bupropion HCl 150 mg tablet sustained-release 12 hr 150 mg PO BEDTIME sennosides [senna] 8.6 mg tablet 17.2 mg PO BEDTIME acetaminophen [Tylenol] 325 mg Tablet 650 mg PO TID trazodone 50 mg tablet 50 mg PO BEDTIME aspirin 81 mg Tablet,Delayed Release (Dr/Ec) 81 mg PO DAILY carvedilol 3.125 mg tablet 3.125 mg PO BID cyanocobalamin (vitamin B-12) 500 mcg Tablet 500 mcg PO DAILY meclizine 25 mg tablet 25 mg PO Q8HR PRN (Reason: Dizziness) ferrous sulfate 325 mg (65 mg iron) Tablet 325 mg PO DAILY fluoxetine 20 mg Tablet 20 mg PO DAILY lidocaine 5 % adhesive patch,medicated 1 patch topical DAILY Rx Instructions: to right bicep gabapentin 300 mg Capsule 300 mg PO BEDTIME montelukast 10 mg Tablet 10 mg PO DAILY nystatin 100,000 unit/gram Powder 1 applic TOPICAL BID PRN (Reason: Rash) insulin lispro [Humalog U-100 Insulin] 100 unit/mL Solution 3 unit SUBCUT TIDWM ondansetron 4 mg Tablet,Disintegrating 4 mg PO Q8H PRN (Reason: Nausea) fluticasone propionate 50 mcg/actuation [place],Suspension 2 spray INTRANASAL DAILY Rx Instructions: administer into each nostril loratadine 10 mg Tablet 10 mg PO DAILY rosuvastatin 40 mg Tablet 40 mg PO DAILY tiotropium bromide [Spiriva with HandiHaler] 18 mcg Capsule, W/Inhalation Device 1 cap INHALATION DAILY Rx Instructions: puncture 1 cap using device; one dose = 2 inhalations fenofibrate 160 mg Tablet 160 mg PO DAILY budesonide-formoterol 160-4.5 mcg/actuation Hfa Aerosol Inhaler 2 puff INHALATION Q4H PRN (Reason: Wheezing) insulin glargine 100 unit/mL (3 mL) Insulin Pen 22 unit SUBCUT BID magnesium oxide 200 mg magnesium Tablet 200 mg PO DAILY Follow up/Referrals: Simone Rodgers MD [Primary Care Provider] - Diet/Activity/Treatments Diet: Carb-consistent/Diabetic Special [facility] Reason for rehabilitation: Recovery r/t decondition Rehab type: Physical therapy and Occupational therapy Visit Report/Discharge Packet Stand Alone Forms: Patient Portal/API Discharge Data Primary Care Provider: Simone Rodgers Quality VTE Deep Vein Thrombosis/Pulmonary Embolism Present on Admission: No
--- NOTE | 2023-01-10 11:37 | OT.IPNOTE ---
Pt going back to [facility] today. It was determined that pt was able to sit up in bed with use of bed rails and therefore be able to sit up in a wc in order to go back. Use of bogdan lift for transfer would be best at this time. NO charge.
--- NOTE | 2023-01-10 11:40 | PT-IP ANOTE ---
Pt was seen with OT this morning to determine whether she is able to use w/c when discharging back to [facility] this afternoon. The pt was able to sit up with use of bed rails, demonstrating she will be able to tolerate transfer using Jennifer to w/c and transportation. No charge for this.
--- NOTE | 2023-01-10 12:05 | PC.NURSE ---
While doing full assessment and complete bed bath, RN observed blanchable erythema in the sacrum, maceration, sacral skin tear and erythema throughout the groin and sacral area. RN asked patient about sites and patient stated that she has had this wound for awhile. RN and PCT fully cleaned site and placed barrier cream. Sites noted in chart.
== END 2023-01-10 13:20 | DRG 871 ==
LOC: ED 11:20 → AC 13:39 → ICU 14:30
PROVIDERS: Emergency Medicine; Internal Medicine; Student in an Organized Health Care Education/Training Program; Admitting Provider Hospitalist; Emergency Provider Physician Assistant; PCP Family Medicine; Referring Provider Physician Assistant; Visit Provider Hospitalist
DX: A41.9 Sepsis, unspecified organism (principal); G93.41 Metabolic encephalopathy; J96.21 Acute and chronic respiratory failure with hypoxia; I13.0 Hypertensive heart and chronic kidney disease with heart failure and stage 1 through stage 4 chronic kidney disease, or unspecified chronic kidney disease; I50.32 Chronic diastolic (congestive) heart failure; I24.89 Other forms of acute ischemic heart disease; N10 Acute pyelonephritis; J44.9 Chronic obstructive pulmonary disease, unspecified; E11.22 Type 2 diabetes mellitus with diabetic chronic kidney disease; N18.30 Chronic kidney disease, stage 3 unspecified; B96.20 Unspecified Escherichia coli [E. coli] as the cause of diseases classified elsewhere; R65.20 Severe sepsis without septic shock; G47.33 Obstructive sleep apnea (adult) (pediatric); E06.9 Thyroiditis, unspecified; Z79.4 Long term (current) use of insulin; Z87.891 Personal history of nicotine dependence; Z99.81 Dependence on supplemental oxygen
CPT/HCPCS: 36415; 70450; 71045; 71250; 74176; 80048; 80053; 81001; 82550; 82805; 82962; 83605; 83690; 83735; 83880; 84145; 84484; 85025; 87040; 87077; 87086; 87154; 87186; 87633; 93005; 93010; 94640; 94660; 94762; 96365; 96367; 96375; 97166; 97535; 99285; A9270; J0131; J0696; J1644; J1815; J1940; J2543; J7613

== ENCOUNTER 2023-01-19 13:14 | Inpatient (IN) | payer MEDICAID, OTHER, SELFPAY ==
[2022-05-26 19:34] VITALS: RESP 0
[2023-01-05 15:43] VITALS: BMI 46.0
[2023-01-10 07:42] VITALS: PULSE 92; RESP 31; O2SAT 94
[2023-01-19] VITALS (107 sets, daily range): BP systolic 64–144; BP diastolic 38–69; PULSE 59–82; RESP 15–33; TEMP 36.7; O2SAT 87–99; BMI 51.8
--- NOTE | 2023-01-19 | DI.CT.S_ITS ---
PROCEDURE: CT CHEST WO CON INDICATIONS: SEPSIS TECHNIQUE: Noncontrast 5 mm thick sections acquired from the pulmonary apices to the posterior costophrenic angles. 1 mm lung window, 5 mm thick coronal and sagittal and 7 mm axial MIP reformats were then acquired. For radiation dose reduction, the following was used: automated exposure control, adjustment of mA and/or kV according to patient size. COMPARISON: [facility], CT, CT CHEST WO CON, 01/07/2023, 9:15. FINDINGS: Image quality: Excellent. Lungs and pleura: Dependent atelectasis in posterior aspect of bilateral lung bases are seen. No significant pleural effusion. Mild centrilobular emphysematous changes are noted. No pneumothorax. Central and peripheral airways are patent and normal in caliber. Mediastinum: Heart size is enlarged. No pericardial effusion. 1.1 cm right paratracheal lymph node is seen. Mildly prominent bilateral hilar lymph nodes are also noted measures up to 9 millimeter in size in right hilar region. Thoracic aorta and central pulmonary arteries are normal in size. Esophagus is normal in caliber. No hiatal hernia. Bones and chest wall: No suspicious bony lesions. Old healed left lateral 7th rib fracture is seen. No vertebral body compression fractures. No axillary or supraclavicular adenopathy by size criteria. Thyroid gland is within normal limits. Abdomen: Visualized upper abdominal solid organs and bowel loops appear normal in the absence of contrast. IMPRESSION: 1. Mild dependent atelectasis in posterior aspect of bilateral lung bases. No focal infiltrate, pleural effusion or pneumothorax. Airway is patent. 2. Cardiomegaly, no pericardial effusion. Mildly prominent right paratracheal lymph node not significantly changed from prior study. 3. Suggestion of old healed left lateral 7th rib fracture. No suspicious bony lesions. No acute osseous abnormalities. Dictated by: Nahid Sellers M.D. on 01/19/2023 at 15:12 Approved by: Nahid Sellers M.D. on 01/19/2023 at 15:23
--- NOTE | 2023-01-19 | DI.US.S_ITS ---
PROCEDURE: US PELVIC COMPLETE INDICATIONS: POSTMENOPAUSAL VAGINAL BLEEDING TECHNIQUE: Real-time scanning was performed of the pelvic organs, with image documentation. Additional endovaginal scanning was necessary due to incomplete visualization of the adnexal and endometrial structures by transabdominal scanning. COMPARISON: None. FINDINGS: Uterus: Uterus is anteverted and normal in size at 6.6 x 3.7 x 3.6 cm. The myometrium is heterogeneous. The endometrium measures 7 mm combined thickness. No focal intrauterine abnormality seen. Ovaries: Bilateral ovaries are not visualized on this examination. Other: No pathologic free abdominal or pelvic fluid. IMPRESSION: Pelvis without acute sonographic abnormalities. Nonvisualization of the bilateral ovaries secondary to patient scanning characteristics. We strive to produce accurate, complete, and clear reports of imaging services. To assist us in improving patient care, this report was composed using standard report templates and voice recognition software. Therefore, it may contain abnormal punctuation, insertions and/or omissions. Occasional wrong-word or sound-alike substitutions may occur. Though we review the report and make efforts to correct it, we do recommend that the report be read carefully in proper context to recognize any text inaccuracies. Dictated by: Jignesh Pool M.D. on 01/19/2023 at 19:02 Approved by: Jignesh Pool M.D. on 01/19/2023 at 19:04
--- NOTE | 2023-01-19 13:31 | DI.CT.S_ITS ---
PROCEDURE: CT ABDOMEN PELVIS W CON INDICATIONS: IV contrast only / Sepsis TECHNIQUE: After the administration of intravenous contrast, axial sections acquired from the lung bases to the pubic symphysis. Coronal and sagittal reformats were performed. For radiation dose reduction, the following was used: automated exposure control, adjustment of mA and/or kV according to patient size. COMPARISON: [facility], CT, CT ABDOMEN PELVIS WO CON, 01/09/2023, 8:18. [facility], CT, CT ABDOMEN PELVIS W CON, 05/25/2022, 14:22. FINDINGS: Image quality: Excellent. Lung bases: Bibasilar dependent atelectasis is seen. Heart: Heart size is enlarged, no pericardial effusion. ABDOMEN: Liver: Unremarkable. Gallbladder: Gallbladder is within normal limits. Biliary ducts: Unremarkable. Pancreas: Unremarkable. Spleen: Unremarkable. Adrenal Glands: Unremarkable. Kidneys and Ureters: Bilateral kidneys show normal size and enhancement. No hydronephrosis or hydroureter. Nonspecific mild bilateral perinephric fat stranding is seen. Stomach and Bowel: Postsurgical changes are noted in right lower quadrant. Surgical anastomosis appears intact. There is no bowel obstruction. No abnormal bowel wall thickening or mesenteric fat stranding. Moderate fecal stasis throughout the colon extending to sigmoid colon and rectum is seen. No abscess collection. Peritoneum: No abnormal intraperitoneal fluid. No free air. Ventral Wall: No hernias. Abdominal Nodes: No retroperitoneal or mesenteric adenopathy by size criteria. Vessels: Aorta and inferior vena cava are normal in size. PELVIS: Pelvic Organs: Unremarkable. Bladder: Unremarkable. Pelvic Nodes: No enlarged lymph nodes. Miscellaneous: No hernias are seen. Bones: No suspicious bony lesions. No acute vertebral body compression fracture. IMPRESSION: 1. [id number] constipation and fecal impaction. No bowel obstruction or abnormal bowel wall thickening. No abscess collection. No free fluid or free air. 2. Nonspecific mild bilateral perinephric fat stranding. No obstructing renal stones or hydronephrosis. No hydroureter. Normal bladder wall thickness. Low-grade pyelonephritis cannot be excluded suggest urological correlation. 3. Bibasilar dependent atelectasis and cardiomegaly. Please correlate with CT of chest findings from the same day. Dictated by: Nahid Sellers M.D. on 01/19/2023 at 15:03 Approved by: Nahid Sellers M.D. on 01/19/2023 at 15:09
[2023-01-19 13:42] LABS: Add Manual Diff / Slide Review NO; Basophils Absolute Auto 0 /uL (0-100); Basophils Percent Auto 0.2 % (0-2); Eosinophils Absolute Auto 100 /uL (0-450); Hematocrit 32.8 % (36-46); Hemoglobin 10.9 g/dL (12.0-16.0); INR 1.2 (0.9-1.3); Lymphocytes Absolute Auto 1100 /uL (1100-4500); Lymphocytes Percent Auto 12.5 % (25-40); Mean Corpuscular HGB Conc 33.3 % (30-36); Mean Corpuscular Hemoglobin 33.1 PG (26-34); Mean Corpuscular Volume 99.5 fL (80-100); Monocytes Absolute Auto 600 /uL (0-900); Monocytes Percent Auto 6.6 % (3-14); Neutrophils Absolute Auto 7000 /uL (1500-7000); Neutrophils Percent Auto 79.7 % (50-75); Platelet Count 259 X10^3/uL (150-400); Prothrombin Time 13.6 SECONDS (10.1-12.7); Red Cell Distribution Width 14.9 % (11.6-14.8); White Blood Cell Count 8.7 X10^3/uL (4.5-11.0)
[2023-01-19] MEDS: SODIUM CHLORIDE 0.9% 1,000 ML 1000 ML IV ×2 (13:42→15:10)
[2023-01-19 13:49] LABS: Lactate (Lactic Acid) 1.7 mmol/L (0.7-2.1)
[2023-01-19 13:50] LABS: Alanine Aminotransferase 13 IU/L (<35); Albumin 3.4 g/dL (3.5-5.0); Alkaline Phosphatase 78 U/L (38-126); Aspartate Aminotransferase 19 IU/L (14-36); BUN Creatinine Ratio 28.9 (6-22); Bilirubin Total 0.3 mg/dL (0.2-1.3); Blood Urea Nitrogen 55 mg/dL (7-17); Calcium 10.1 mg/dL (8.4-10.2); Carbon Dioxide 38 mmol/L (22-32); Chloride 91 mmol/L (98-107); Estimated Glomerular Filt Rate 30 mL/min (>60); Globulin 3.4 g/dL (1.7-4.1); Glucose 250 mg/dL (80-110); HEMOLYSIS < 15 (0-50); Potassium 4.6 mmol/L (3.4-5.1); Sodium 134 mmol/L (137-145); Total Protein 6.8 g/dL (6.3-8.2)
[2023-01-19 14:01] LABS: Troponin I 0.025 ng/mL (0.01-0.034)
[2023-01-19 14:06] LABS: Procalcitonin 0.35 ng/mL (<0.5)
--- NOTE | 2023-01-19 14:14 | ED_ITS ---
HPI - Weakness General Chief complaint: Weakness Stated complaint: fall r knee pain Time Seen by Provider: 01/19/23 13:31 Source: patient Mode of arrival: EMS History of Present Illness HPI Narrative: Patient here [facility] Patient states she was feeling weak and her knees giving out and she fell to the ground but was assisted while sliding down to the floor. Did not hit her head. No loss of consciousness. Patient states in the past few days she is had some vaginal bleeding. She is postmenopausal without history of hysterectomy. She states her knees are always weak this is not new. Denies any prevent chest pain abdominal pain or back pain headache or dizziness. No night sweats or weight loss. Female nurse, Kalpana, at bedside for external vaginal exam does show dark blood clots at labia areas Related Data Home Medications Medication Instructions Recorded Confirmed acetaminophen 325 mg tablet 650 mg PO TID 05/25/22 01/20/23 (Tylenol) aspirin 81 mg tablet,delayed 81 mg PO DAILY 05/25/22 01/20/23 release budesonide-formoterol HFA 160 2 puff inhalation Q4H PRN Wheezing 05/25/22 01/20/23 mcg-4.5 mcg/actuation aerosol inhaler bupropion HCl 150 mg tablet,12 hr 150 mg PO BEDTIME 05/25/22 01/20/23 sustained-release carvedilol 3.125 mg tablet 3.125 mg PO BID 05/25/22 01/20/23 cyanocobalamin (vitamin B-12) 500 500 mcg PO DAILY 05/25/22 01/20/23 mcg tablet fenofibrate 160 mg tablet 160 mg PO DAILY 05/25/22 01/20/23 ferrous sulfate 325 mg (65 mg 325 mg PO DAILY 05/25/22 01/20/23 iron) tablet fluoxetine 20 mg tablet 20 mg PO DAILY 05/25/22 01/20/23 fluticasone propionate 50 2 spray intranasal DAILY 05/25/22 01/20/23 mcg/actuation nasal spray,suspension gabapentin 300 mg capsule 300 mg PO BEDTIME 05/25/22 01/20/23 insulin glargine 100 unit/mL (3 22 unit SUBCUT BID 05/25/22 01/20/23 mL) subcutaneous pen insulin lispro 100 unit/mL 3 unit SUBCUT TIDWM 05/25/22 01/20/23 subcutaneous solution (Humalog U-100 Insulin) lidocaine 5 % topical patch 1 patch topical DAILY 05/25/22 01/20/23 loratadine 10 mg tablet 10 mg PO DAILY 05/25/22 01/20/23 magnesium oxide 200 mg PO DAILY 05/25/22 01/20/23 meclizine 25 mg tablet 25 mg PO Q8HR PRN Dizziness 05/25/22 01/20/23 montelukast 10 mg tablet 10 mg PO DAILY 05/25/22 01/20/23 nystatin 100,000 unit/gram topical 1 applic topical BID PRN Rash 05/25/22 01/20/23 powder ondansetron 4 mg disintegrating 4 mg PO Q8H PRN Nausea 05/25/22 01/20/23 tablet rosuvastatin 40 mg tablet 40 mg PO DAILY 05/25/22 01/20/23 sennosides 8.6 mg tablet (senna) 17.2 mg PO BEDTIME 05/25/22 01/20/23 tiotropium bromide 18 mcg capsule 1 cap inhalation DAILY 05/25/22 01/20/23 with inhalation device (Spiriva with HandiHaler) trazodone 50 mg tablet 50 mg PO BEDTIME 05/25/22 01/20/23 albuterol sulfate 90 mcg/actuation 4 puff inhalation Q4H PRN 08/15/22 01/20/23 aerosol inhaler Shortness Of Breath Or Wheezing levothyroxine 175 mcg tablet 175 mcg PO DAILY 08/15/22 01/20/23 potassium chloride 10 mEq 10 meq PO DAILY 08/15/22 01/20/23 tablet,extended release Previous Rx's Medication Instructions Recorded midodrine 5 mg tablet 5 mg PO 0600,1200,1800 #60 tabs 01/24/23 torsemide 10 mg tablet 20 mg (2 x 10 mg) PO DAILY #60 tabs 01/24/23 Allergies Allergy/AdvReac Type Severity Reaction Status Date / Time No Known Drug Allergies Allergy Verified 05/25/22 12:43 Review of Systems Review of Systems Narrative: GENERAL: negative chills, positive fatigue, malaise, negative fever, sweats. HEENT: negative sinus pain, ear pain, sore throat RESPIRATORY: negative dyspnea, cough CARDIOVASCULAR: negative chest pain, palpitations GASTROINTESTINAL: negative nausea, vomiting, abdominal pain : negative dysuria, frequency, hematuria, positive vaginal bleeding MUSCULOSKELETAL: negative muscle or bony pain SKIN: negative rash, skin lesions NEUROLOGIC: negative weakness, numbness ROS Unobtainable: All systems reviewed & are unremarkable except as noted in HPI and below Patient History Medical History PONCE (obstructive sleep apnea) Chronic hypoxemic respiratory failure COPD (chronic obstructive pulmonary disease) DM2 (diabetes mellitus, type 2) HTN (hypertension) Thyroiditis Systolic and diastolic CHF, chronic Obesity Surgical History S/P hernia surgery Family History Mother No pertinent past medical history Father No pertinent past medical history Social History household members: other Smoking Status: Former smoker alcohol intake: former Smoking Status: Former smoker alcohol intake frequency: other Substance Use Type: does not use Exam Narrative Exam Narrative: GENERAL: in no distress, not toxic not dyspneic HEAD: Normocephalic. EYES: Pupils equal round, pale conjunctiva bilaterally ENT: Mucous membranes moist. NECK: Trachea midline. No midline tenderness or step-off of the cervical thoracic or lumbar spine CARDIOVASCULAR: Regular rate and rhythm RESPIRATORY: Clear to auscultation. Breath sounds equal bilaterally. No wheezes, rales, or rhonchi. GASTROINTESTINAL: Abdomen soft, non-tender : External vaginal exam with female nurses at bedside to water filtration technician, there is dark blood at the labial EXTREMITIES: No gross deformities. BACK: No flank tenderness. NEURO: AOx4. SKIN: Warm and dry PSYCH: Not anxious, is cooperative Initial Vital Signs Initial Vital Signs: Vital Signs Pulse Rate 69 01/19/23 13:18 Blood Pressure 83/52 L 01/19/23 13:18 Pulse Oximetry 94 01/19/23 13:18 Course Orders Ordered: Discontinued Medications Acetaminophen (Acetaminophen 325 Mg Tablet) 650 mg PO Q6H PRN PRN Reason: Fever/Mild Pain (1-3) Last Admin: 01/22/23 20:56 Dose: 650 mg Documented By: Albuterol/Ipratropium (Albuterol/Ipratropium 3 Ml Ampul) 3 ml INH [id number] PRN PRN Reason: shortness of breath/wheezing Last Admin: 01/25/23 11:21 Dose: 3 ml Documented By: Admin: 01/24/23 18:32 Dose: 3 ml Documented By: Admin: 01/24/23 08:35 Dose: 3 ml Documented By: Admin: 01/23/23 18:57 Dose: 3 ml Documented By: Admin: 01/23/23 14:39 Dose: 3 ml Documented By: Admin: 01/23/23 09:13 Dose: 3 ml Documented By: HOANG(2) Admin: 01/22/23 21:00 Dose: 3 ml Documented By: Admin: 01/22/23 16:18 Dose: 3 ml Documented By: Admin: 01/22/23 09:18 Dose: 3 ml Documented By: Admin: 01/22/23 05:40 Dose: 3 ml Documented By: Admin: 01/21/23 22:00 Dose: 3 ml Documented By: Admin: 01/21/23 17:10 Dose: 3 ml Documented By: Admin: 01/21/23 13:07 Dose: 3 ml Documented By: HOANG(2) Admin: 01/21/23 08:34 Dose: 3 ml Documented By: Admin: 01/20/23 17:22 Dose: 3 ml Documented By: RAFAEL Aspirin (Aspirin Ec 81 Mg Tablet) 81 mg PO DAILY [facility] Last Admin: 01/25/23 09:55 Dose: 81 mg Documented By: Admin: 01/24/23 09:48 Dose: 81 mg Documented By: Admin: 01/23/23 08:33 Dose: 81 mg Documented By: Admin: 01/22/23 08:52 Dose: 81 mg Documented By: Admin: 01/21/23 09:29 Dose: 81 mg Documented By: Admin: 01/20/23 09:02 Dose: 81 mg Documented By: RAFAEL Atorvastatin Calcium (Atorvastatin 20 Mg Tablet) 80 mg PO BEDTIME [facility] Last Admin: 01/24/23 20:52 Dose: 80 mg Documented By: Admin: 01/23/23 20:16 Dose: 80 mg Documented By: Admin: 01/22/23 20:55 Dose: 80 mg Documented By: Admin: 01/21/23 21:26 Dose: 80 mg Documented By: Admin: 01/20/23 20:25 Dose: 80 mg Documented By: ДМИТРИЙ Admin: 01/19/23 20:26 Dose: 80 mg Documented By: LYNN Bupropion HCl (Bupropion Sr 150 Mg Tab) 150 mg PO BEDTIME [facility] Last Admin: 01/24/23 20:52 Dose: 150 mg Documented By: Admin: 01/23/23 20:16 Dose: 150 mg Documented By: Admin: 01/22/23 20:56 Dose: 150 mg Documented By: Admin: 01/21/23 21:26 Dose: 150 mg Documented By: Admin: 01/20/23 20:25 Dose: 150 mg Documented By: ДМИТРИЙ Admin: 01/19/23 20:27 Dose: 150 mg Documented By: LYNN Fenofibrate (Fenofibrate, Micronized 67 Mg Capsule) 201 mg PO DAILY [facility] Last Admin: 01/25/23 09:54 Dose: 201 mg Documented By: Admin: 01/24/23 09:48 Dose: 201 mg Documented By: Admin: 01/23/23 08:33 Dose: 201 mg Documented By: Admin: 01/22/23 08:52 Dose: 201 mg Documented By: Admin: 01/21/23 09:31 Dose: 201 mg Documented By: Admin: 01/20/23 09:01 Dose: 201 mg Documented By: RAFAEL Fluoxetine HCl (Fluoxetine 20 Mg Capsule) 20 mg PO DAILY [facility] Last Admin: 01/25/23 09:55 Dose: 20 mg Documented By: Admin: 01/24/23 09:52 Dose: 20 mg Documented By: Admin: 01/23/23 08:33 Dose: 20 mg Documented By: Admin: 01/22/23 08:52 Dose: 20 mg Documented By: Admin: 01/21/23 09:33 Dose: 20 mg Documented By: Admin: 01/20/23 09:03 Dose: 20 mg Documented By: RAFAEL Gabapentin (Gabapentin 300 Mg Capsule) 300 mg PO BEDTIME [facility] Last Admin: 01/24/23 20:53 Dose: 300 mg Documented By: Admin: 01/23/23 20:16 Dose: 300 mg Documented By: Admin: 01/22/23 20:56 Dose: 300 mg Documented By: Admin: 01/21/23 21:26 Dose: 300 mg Documented By: Admin: 01/20/23 20:25 Dose: 300 mg Documented By: ДМИТРИЙ Admin: 01/19/23 20:27 Dose: 300 mg Documented By: LYNN Heparin Sodium (Porcine) (Heparin 5,000 Unit/Ml Vial) 7,500 unit SUBCUT Q8H [facility] Last Admin: 01/25/23 09:56 Dose: 7,500 unit Documented By: Admin: 01/25/23 01:18 Dose: 7,500 unit Documented By: Admin: 01/24/23 17:52 Dose: 7,500 unit Documented By: Admin: 01/24/23 09:53 Dose: 7,500 unit Documented By: Admin: 01/24/23 01:00 Dose: 7,500 unit Documented By: Admin: 01/23/23 17:16 Dose: 7,500 unit Documented By: Admin: 01/23/23 08:31 Dose: 7,500 unit Documented By: Admin: 01/23/23 01:22 Dose: 7,500 unit Documented By: Admin: 01/22/23 17:48 Dose: 7,500 unit Documented By: Admin: 01/22/23 08:52 Dose: 7,500 unit Documented By: Admin: 01/22/23 01:15 PDT Dose: 7,500 unit Documented By: Admin: 01/21/23 17:00 Dose: 7,500 unit Documented By: Admin: 01/21/23 09:32 Dose: 7,500 unit Documented By: Admin: 01/21/23 09:31 Dose: 7,500 unit Documented By: Admin: 01/21/23 01:44 Dose: 7,500 unit Documented By: ДМИТРИЙ Admin: 01/20/23 17:23 Dose: 7,500 unit Documented By: Admin: 01/20/23 09:03 Dose: 7,500 unit Documented By: Admin: 01/20/23 00:16 Dose: 7,500 unit Documented By: LYNN Hydrocortisone (Hydrocortisone 100 Mg/2 Ml Vial) 50 mg IV Q6HR [facility] Last Admin: 01/24/23 08:00 Dose: Not Given Documented By: JUANITO Hydrocortisone (Hydrocortisone 100 Mg/2 Ml Vial) 50 mg IV Q6HR [facility] Last Admin: 01/23/23 12:03 Dose: 50 mg Documented By: Admin: 01/23/23 05:36 Dose: 50 mg Documented By: Admin: 01/23/23 01:21 Dose: 50 mg Documented By: Admin: 01/22/23 17:48 Dose: 50 mg Documented By: Admin: 01/22/23 11:49 Dose: 50 mg Documented By: Admin: 01/22/23 05:48 Dose: 50 mg Documented By: Admin: 01/22/23 01:15 PDT Dose: 50 mg Documented By: Admin: 01/21/23 18:31 Dose: 50 mg Documented By: Admin: 01/21/23 13:11 Dose: 50 mg Documented By: Admin: 01/21/23 06:11 Dose: 50 mg Documented By: Admin: 01/20/23 23:26 Dose: 50 mg Documented By: Admin: 01/20/23 18:08 Dose: 50 mg Documented By: Admin: 01/20/23 11:20 Dose: 50 mg Documented By: Admin: 01/20/23 06:50 Dose: 50 mg Documented By: Admin: 01/20/23 00:17 Dose: 50 mg Documented By: CB Sodium Chloride (Normal Saline 0.9%) 1,000 mls @ 1,000 mls/hr IV BOLUS ONE Stop: 01/19/23 14:30 Last Infusion: 01/19/23 15:09 Dose: Infused Documented By: Admin: 01/19/23 13:42 Dose: 1,000 mls/hr Documented By: MPO Sodium Chloride (Normal Saline 0.9%) 1,000 mls @ 1,000 mls/hr IV BOLUS ONE Stop: 01/19/23 16:02 Last Infusion: 01/19/23 16:34 Dose: Infused Documented By: Admin: 01/19/23 15:10 Dose: 1,000 mls/hr Documented By: MPO NOREPINEPHRINE BITARTRATE/D5W (Levophed) 4 mg in 250 mls @ 45.15 mls/hr IV TITRATE JAY JAY; Protocol Last Titration: 01/20/23 12:30 Dose: 0 mcg/kg/min, 0 mls/hr Documented By: Titration: 01/20/23 12:02 Dose: 0.02 mcg/kg/min, 9.03 mls/hr Documented By: Titration: 01/20/23 10:30 Dose: 0 mcg/kg/min, 0 mls/hr Documented By: Titration: 01/20/23 09:40 Dose: 0.025 mcg/kg/min, 11.288 mls/hr Documented By: Titration: 01/20/23 08:35 Dose: 0 mcg/kg/min, 0 mls/hr Documented By: Titration: 01/20/23 07:30 Dose: 0.025 mcg/kg/min, 11.288 mls/hr Documented By: Titration: 01/19/23 19:30 Dose: 0.03 mcg/kg/min, 11.288 mls/hr Documented By: Titration: 01/19/23 17:05 Dose: 0.025 mcg/kg/min, 11.288 mls/hr Documented By: Titration: 01/19/23 16:51 Dose: 0.05 mcg/kg/min, 22.575 mls/hr Documented By: Titration: 01/19/23 16:35 Dose: 0 mcg/kg/min, 0 mls/hr Documented By: Admin: 01/19/23 16:17 Dose: 0.1 mcg/kg/min, 45.15 mls/hr Documented By: MPO Piperacillin Sod/Tazobactam (Sod 4.5 gm/ Sodium Chloride) 100 mls @ 200 mls/hr IV NOW ONE Stop: 01/19/23 16:19 Last Infusion: 01/19/23 17:07 Dose: Infused Documented By: Admin: 01/19/23 16:33 Dose: 200 mls/hr Documented By: MPO Sodium Chloride (Normal Saline 0.9%) 1,000 mls @ 125 mls/hr IV CONT JAY JAY Stop: 01/20/23 04:59 Last Infusion: 01/19/23 19:42 Dose: 0 mls/hr Documented By: Admin: 01/19/23 18:00 Dose: 125 mls/hr Documented By: MPO Meropenem 2 gm/ Sodium (Chloride) 100 mls @ 200 mls/hr IV Q12H JAY JAY Last Infusion: 01/22/23 09:58 Dose: Infused Documented By: Admin: 01/22/23 04:08 Dose: 200 mls/hr Documented By: Infusion: 01/21/23 17:31 Dose: Infused Documented By: Admin: 01/21/23 17:01 Dose: 200 mls/hr Documented By: Infusion: 01/21/23 05:05 Dose: Infused Documented By: Admin: 01/21/23 04:35 Dose: 200 mls/hr Documented By: ДМИТРИЙ Infusion: 01/20/23 19:22 Dose: Infused Documented By: Admin: 01/20/23 17:10 Dose: 200 mls/hr Documented By: Infusion: 01/20/23 05:12 Dose: Infused Documented By: Admin: 01/20/23 04:16 Dose: 200 mls/hr Documented By: Infusion: 01/19/23 18:38 Dose: Infused Documented By: Admin: 01/19/23 18:06 Dose: 200 mls/hr Documented By: CED Dextrose (D10w) 100 mls @ 1,200 mls/hr IV PRN PRN PRN Reason: Hypoglycemia Meropenem 2 gm/ Sodium (Chloride) 100 mls @ 200 mls/hr IV Q8H [facility] Last Admin: 01/23/23 09:48 Dose: 200 mls/hr Documented By: Infusion: 01/23/23 01:58 Dose: Infused Documented By: Admin: 01/23/23 01:28 Dose: 200 mls/hr Documented By: Infusion: 01/22/23 20:57 Dose: Infused Documented By: Admin: 01/22/23 17:47 Dose: 200 mls/hr Documented By: BRIGHT Ertapenem 1 gm/ Sodium (Chloride) 100 mls @ 200 mls/hr IV Q24H [facility] Stop: 01/28/23 10:44 Last Infusion: 01/25/23 11:47 Dose: Infused Documented By: Admin: 01/25/23 10:01 Dose: 200 mls/hr Documented By: Infusion: 01/24/23 13:20 Dose: Infused Documented By: Admin: 01/24/23 11:46 Dose: 200 mls/hr Documented By: JUANITO Insulin Glargine (Insulin Glargine 100 Unit/Ml 3ml Pen) 15 unit SUBCUT BID [facility] Last Admin: 01/20/23 09:08 Dose: 15 unit Documented By: RAFAEL Co-signed By: BRIGHT Admin: 01/19/23 20:27 Dose: 15 unit Documented By: LYNN Co-signed By: IVANIA Insulin Glargine (Insulin Glargine 100 Unit/Ml 3ml Pen) 20 unit SUBCUT BID [facility] Last Admin: 01/21/23 09:33 Dose: 20 unit Documented By: BRIGHT Co-signed By: MP Admin: 01/20/23 20:24 Dose: 20 unit Documented By: ДМИТРИЙ Co-signed By: IVANIA Insulin Glargine (Insulin Glargine 100 Unit/Ml 3ml Pen) 5 unit SUBCUT NOW ONE Stop: 01/21/23 10:46 Last Admin: 01/21/23 11:39 Dose: 5 unit Documented By: BRIGHT Co-signed By: MP Insulin Glargine (Insulin Glargine 100 Unit/Ml 3ml Pen) 25 unit SUBCUT BID [facility] Last Admin: 01/23/23 07:44 Dose: 25 unit Documented By: BRIGHT Co-signed By: RAFAEL Admin: 01/22/23 21:07 Dose: 25 unit Documented By: Co-signed By: NATHALIE Admin: 01/22/23 08:21 Dose: 25 unit Documented By: BRIGHT Co-signed By: MP Admin: 01/21/23 21:27 Dose: 25 unit Documented By: Co-signed By: PHILIP Insulin Glargine (Insulin Glargine 100 Unit/Ml 3ml Pen) 30 unit SUBCUT BID [facility] Last Admin: 01/25/23 09:57 Dose: 30 unit Documented By: MARCY Co-signed By: MP Admin: 01/24/23 20:53 Dose: 30 unit Documented By: IVANIA Co-signed By: AMILCAR Admin: 01/24/23 09:51 Dose: 30 unit Documented By: JUANITO Co-signed By: PAVLE Admin: 01/23/23 20:17 Dose: 30 unit Documented By: LYNN Co-signed By: NATHALIE Insulin Human Lispro (Insulin Lispro 100 Unit/Ml 3ml Vial) 0 unit SUBCUT ACHS [facility]; Protocol Last Admin: 01/20/23 18:07 Dose: Not Given Documented By: Admin: 01/20/23 09:04 Dose: 8 unit Documented By: RAFAEL Co-signed By: BRIGHT Admin: 01/19/23 20:28 Dose: 2 unit Documented By: LYNN Co-signed By: IVANIA Insulin Human Lispro (Insulin Lispro 100 Unit/Ml 3ml Vial) 0 unit SUBCUT ACHS JAY JAY; Protocol Last Admin: 01/25/23 11:46 Dose: Not Given Documented By: Admin: 01/25/23 08:00 Dose: Not Given Documented By: Admin: 01/24/23 20:53 Dose: 2 unit Documented By: IVANIA Co-signed By: AMILCAR Admin: 01/24/23 17:51 Dose: 1 unit Documented By: JUANITO Co-signed By: PAVEL Admin: 01/24/23 12:25 Dose: Not Given Documented By: Admin: 01/24/23 09:24 Dose: Not Given Documented By: Admin: 01/23/23 20:17 Dose: 5 unit Documented By: LYNN Co-signed By: NATHALIE Admin: 01/23/23 16:51 Dose: 7 unit Documented By: BRIGHT Co-signed By: JUANITO Admin: 01/23/23 11:52 Dose: 12 unit Documented By: AMILCAR Co-signed By: BRIGHT Admin: 01/23/23 07:42 Dose: 7 unit Documented By: BRIGHT Co-signed By: RAFAEL Admin: 01/22/23 21:07 Dose: 7 unit Documented By: Co-signed By: NATHALIE Admin: 01/22/23 16:45 Dose: 10 unit Documented By: BRIGHT Co-signed By: MP Admin: 01/22/23 11:47 Dose: 12 unit Documented By: MP Co-signed By: BRIGHT Admin: 01/22/23 08:20 Dose: 4 unit Documented By: BRIGHT Co-signed By: MP Admin: 01/21/23 21:33 Dose: 10 unit Documented By: Co-signed By: PHILIP Admin: 01/21/23 16:53 Dose: 10 unit Documented By: BRIGHT Co-signed By: MP Admin: 01/21/23 11:46 Dose: 12 unit Documented By: BRIGHT Co-signed By: MP Admin: 01/21/23 08:02 Dose: 10 unit Documented By: BRIGHT Co-signed By: MP Admin: 01/20/23 20:23 Dose: 5 unit Documented By: ДМИТРИЙ Co-signed By: IVANIA Admin: 01/20/23 17:01 Dose: 7 unit Documented By: BRIGHT Co-signed By: RAFAEL Admin: 01/20/23 12:42 Dose: 12 unit Documented By: RAFAEL Co-signed By: MM Insulin Human Lispro (Insulin Lispro 100 Unit/Ml 3ml Vial) 2 unit SUBCUT TIDWM [facility] Last Admin: 01/25/23 11:46 Dose: Not Given Documented By: Admin: 01/25/23 09:22 Dose: Not Given Documented By: Admin: 01/24/23 17:50 Dose: 2 unit Documented By: JUANITO Co-signed By: PAVEL Admin: 01/24/23 13:18 Dose: 2 unit Documented By: JUANITO Co-signed By: PAVEL Admin: 01/24/23 09:47 Dose: 2 unit Documented By: JUANITO Co-signed By: PAVEL Admin: 01/23/23 16:52 Dose: 2 unit Documented By: BRIGHT Co-signed By: JUANITO Admin: 01/23/23 11:53 Dose: 2 unit Documented By: AMILCAR Co-signed By: BRIGHT Admin: 01/23/23 07:42 Dose: 2 unit Documented By: BRIGHT Co-signed By: RAFAEL Admin: 01/22/23 16:45 Dose: 2 unit Documented By: BRIGHT Co-signed By: MP Admin: 01/22/23 11:47 Dose: 2 unit Documented By: MP Co-signed By: BRIGHT Admin: 01/22/23 08:20 Dose: 2 unit Documented By: BRIGHT Co-signed By: MP Admin: 01/21/23 16:53 Dose: 2 unit Documented By: BRIGHT Co-signed By: MP Admin: 01/21/23 11:48 Dose: 2 unit Documented By: BRIGHT Co-signed By: MP Levothyroxine Sodium (Levothyroxine 75 Mcg Tablet) 75 mcg PO 0600 [facility] Last Admin: 01/25/23 06:23 Dose: 75 mcg Documented By: Admin: 01/24/23 06:20 Dose: 75 mcg Documented By: Admin: 01/23/23 05:41 Dose: 75 mcg Documented By: Admin: 01/22/23 05:48 Dose: 75 mcg Documented By: Admin: 01/21/23 06:12 Dose: 75 mcg Documented By: ДМИТРИЙ Admin: 01/20/23 06:50 Dose: 75 mcg Documented By: LYNN Levothyroxine Sodium (Levothyroxine 100 Mcg Tablet) 100 mcg PO 0600 [facility] Last Admin: 01/25/23 06:23 Dose: 100 mcg Documented By: Admin: 01/24/23 06:20 Dose: 100 mcg Documented By: Admin: 01/23/23 05:40 Dose: 100 mcg Documented By: Admin: 01/22/23 05:50 Dose: 100 mcg Documented By: Admin: 01/21/23 06:12 Dose: 100 mcg Documented By: ДМИТРИЙ Admin: 01/20/23 06:50 Dose: 100 mcg Documented By: LYNN Lidocaine (Lidocaine Patch 1 Each Adh..Patch) 1 each TOP DAILY [facility] Last Admin: 01/25/23 10:09 Dose: Not Given Documented By: Admin: 01/24/23 09:25 Dose: Not Given Documented By: Admin: 01/23/23 08:34 Dose: Not Given Documented By: Admin: 01/22/23 09:22 Dose: Not Given Documented By: Admin: 01/21/23 09:33 Dose: Not Given Documented By: Admin: 01/20/23 09:18 Dose: Not Given Documented By: RAFAEL Lidocaine (Remove Lidocaine Patch) 1 each TOP BEDTIME [facility] Last Admin: 01/24/23 22:54 Dose: Not Given Documented By: Admin: 01/23/23 21:16 Dose: 1 each Documented By: Admin: 01/22/23 20:57 Dose: Not Given Documented By: Admin: 01/21/23 22:44 Dose: Not Given Documented By: Admin: 01/20/23 20:39 Dose: Not Given Documented By: ДМИТРИЙ Loratadine (Loratadine 10 Mg Tablet) 10 mg PO DAILY [facility] Last Admin: 01/25/23 09:55 Dose: 10 mg Documented By: Admin: 01/24/23 09:51 Dose: 10 mg Documented By: Admin: 01/23/23 08:33 Dose: 10 mg Documented By: Admin: 01/22/23 08:52 Dose: 10 mg Documented By: Admin: 01/21/23 09:29 Dose: 10 mg Documented By: Admin: 01/20/23 09:03 Dose: 10 mg Documented By: RAFAEL Magnesium Oxide (Magnesium Oxide 400 Mg Tablet) 200 mg PO DAILY [facility] Last Admin: 01/25/23 09:54 Dose: 200 mg Documented By: Admin: 01/24/23 09:50 Dose: 200 mg Documented By: Admin: 01/23/23 08:33 Dose: 200 mg Documented By: Admin: 01/22/23 08:52 Dose: 200 mg Documented By: Admin: 01/21/23 09:29 Dose: 200 mg Documented By: Admin: 01/20/23 09:01 Dose: 200 mg Documented By: RAFAEL Midodrine (Midodrine Hcl 5 Mg Tablet) 10 mg PO 0600,1200,1800 [facility] Last Admin: 01/25/23 12:11 Dose: 10 mg Documented By: Admin: 01/25/23 06:24 Dose: 10 mg Documented By: Admin: 01/24/23 17:51 Dose: 10 mg Documented By: Admin: 01/24/23 13:19 Dose: 10 mg Documented By: Admin: 01/24/23 06:22 Dose: 10 mg Documented By: Admin: 01/23/23 17:16 Dose: 10 mg Documented By: Admin: 01/23/23 12:02 Dose: Not Given Documented By: Admin: 01/23/23 05:40 Dose: 10 mg Documented By: Admin: 01/22/23 18:08 Dose: Not Given Documented By: Admin: 01/22/23 11:49 Dose: Not Given Documented By: Admin: 01/22/23 05:48 Dose: 10 mg Documented By: Admin: 01/21/23 18:31 Dose: 10 mg Documented By: Admin: 01/21/23 12:06 Dose: Not Given Documented By: Admin: 01/21/23 06:12 Dose: 10 mg Documented By: ДМИТРИЙ Admin: 01/20/23 18:08 Dose: 10 mg Documented By: Admin: 01/20/23 11:20 Dose: 10 mg Documented By: RAFAEL Midodrine (Midodrine Hcl 5 Mg Tablet) 5 mg PO 0600,1200,1800 [facility] Montelukast Sodium (Montelukast 10 Mg Tablet) 10 mg PO DAILY [facility] Last Admin: 01/25/23 09:54 Dose: 10 mg Documented By: Admin: 01/24/23 09:48 Dose: 10 mg Documented By: Admin: 01/23/23 08:32 Dose: 10 mg Documented By: Admin: 01/22/23 08:52 Dose: 10 mg Documented By: Admin: 01/21/23 09:29 Dose: 10 mg Documented By: Admin: 01/20/23 09:02 Dose: 10 mg Documented By: RAFAEL Naloxone HCl (Naloxone 0.4 Mg/Ml Vial) 0.2 mg IV Q2MIN PRN PRN Reason: Opiate Reversal Nitrofurantoin Macrocrystals (Nitrofurantoin Er 100 Mg Capsule) 100 mg PO BID JAY JAY Stop: 01/29/23 21:01 Last Admin: 01/24/23 09:48 Dose: 100 mg Documented By: Admin: 01/23/23 20:17 Dose: 100 mg Documented By: Admin: 01/23/23 12:12 Dose: 100 mg Documented By: AMILCAR Nystatin (Nystatin Powder 15gm) 1 applic TOP BID PRN PRN Reason: Rash Ondansetron HCl (Ondansetron 4 Mg Odt) 4 mg PO Q8H PRN PRN Reason: Nausea Potassium Chloride (Potassium Chloride 20 Meq/15 Ml Udc) 40 meq PO NOW ONE Stop: 01/24/23 05:54 Last Admin: 01/24/23 06:20 Dose: 40 meq Documented By: LYNN Sennosides (Sennosides 8.6 Mg Tablet) 17.2 mg PO BEDTIME [facility] Last Admin: 01/24/23 20:53 Dose: 17.2 mg Documented By: Admin: 01/23/23 20:16 Dose: 17.2 mg Documented By: Admin: 01/22/23 20:57 Dose: Not Given Documented By: Admin: 01/21/23 21:26 Dose: 17.2 mg Documented By: Admin: 01/20/23 20:24 Dose: 17.2 mg Documented By: ДМИТРИЙ Admin: 01/19/23 20:26 Dose: 17.2 mg Documented By: LYNN Sodium Chloride (Sodium Chloride 0.9% Flush) 10 ml IV PRN PRN PRN Reason: Flush Sodium Chloride (Sodium Chloride 0.9% Flush) 10 ml IV BID [facility] Last Admin: 01/25/23 09:56 Dose: 10 ml Documented By: Admin: 01/24/23 20:54 Dose: 10 ml Documented By: Admin: 01/24/23 09:52 Dose: 10 ml Documented By: Admin: 01/23/23 21:05 Dose: 10 ml Documented By: Admin: 01/23/23 09:48 Dose: 10 ml Documented By: Admin: 01/22/23 20:57 Dose: 10 ml Documented By: Admin: 01/22/23 09:16 Dose: 10 ml Documented By: Admin: 01/22/23 01:15 PDT Dose: 10 ml Documented By: Admin: 01/21/23 09:34 Dose: 10 ml Documented By: Admin: 01/20/23 20:29 Dose: 10 ml Documented By: ДМИТРИЙ Torsemide (Torsemide 10 Mg Tablet) 10 mg PO DAILY [facility] Last Admin: 01/23/23 08:33 Dose: 10 mg Documented By: Admin: 01/22/23 15:14 Dose: 10 mg Documented By: BRIGHT Torsemide (Torsemide 10 Mg Tablet) 10 mg PO NOW ONE Stop: 01/23/23 12:11 Last Admin: 01/23/23 12:15 Dose: 10 mg Documented By: AMILCAR Torsemide (Torsemide 10 Mg Tablet) 20 mg PO DAILY [facility] Last Admin: 01/24/23 09:50 Dose: 20 mg Documented By: JUANITO Torsemide (Torsemide 10 Mg Tablet) 10 mg PO DAILY [facility] Last Admin: 01/25/23 09:55 Dose: 10 mg Documented By: MARCY Trazodone HCl (Trazodone 50 Mg Tablet) 50 mg PO BEDTIME [facility] Last Admin: 01/24/23 20:52 Dose: 50 mg Documented By: Admin: 01/23/23 20:16 Dose: 50 mg Documented By: Admin: 01/22/23 20:56 Dose: 50 mg Documented By: Admin: 01/21/23 21:26 Dose: 50 mg Documented By: Admin: 01/20/23 20:25 Dose: 50 mg Documented By: ДМИТРИЙ Admin: 01/19/23 20:27 Dose: 50 mg Documented By: LYNN Vital Signs Vital signs: Vital Signs - 8 hr 01/19/23 13:18 01/19/23 13:18 01/19/23 13:26 Temperature 98.0 F Pulse Rate 69 65 Respiratory Rate 20 Blood Pressure 83/52 L 83/52 L Pulse Oximetry 94 95 Oxygen Delivery Method Room Air Oxygen Flow Rate 01/19/23 13:30 01/19/23 13:30 01/19/23 13:45 Temperature Pulse Rate 66 63 Respiratory Rate 23 23 Blood Pressure 78/49 L Pulse Oximetry 95 96 Oxygen Delivery Method Oxygen Flow Rate 01/19/23 13:45 01/19/23 14:11 01/19/23 14:12 Temperature Pulse Rate 65 65 Respiratory Rate 21 Blood Pressure 82/53 L Pulse Oximetry 95 95 Oxygen Delivery Method Oxygen Flow Rate 01/19/23 14:12 01/19/23 14:15 01/19/23 14:15 Temperature Pulse Rate 65 Respiratory Rate 24 Blood Pressure 74/46 L 79/47 L Pulse Oximetry Oxygen Delivery Method Oxygen Flow Rate 01/19/23 14:25 01/19/23 14:25 01/19/23 14:30 Temperature Pulse Rate 62 68 Respiratory Rate 28 H 28 H Blood Pressure 82/39 L Pulse Oximetry 93 Oxygen Delivery Method Oxygen Flow Rate 01/19/23 14:31 01/19/23 14:31 01/19/23 14:35 Temperature Pulse Rate 66 63 Respiratory Rate 23 26 H Blood Pressure 94/50 L Pulse Oximetry 94 94 Oxygen Delivery Method Oxygen Flow Rate 01/19/23 14:40 01/19/23 14:54 01/19/23 14:55 Temperature Pulse Rate 65 71 64 Respiratory Rate 29 H 21 21 Blood Pressure Pulse Oximetry 94 98 95 Oxygen Delivery Method Oxygen Flow Rate 01/19/23 14:56 01/19/23 14:56 01/19/23 15:00 Temperature Pulse Rate 64 66 Respiratory Rate 23 23 Blood Pressure 87/52 L Pulse Oximetry 96 95 Oxygen Delivery Method Oxygen Flow Rate 01/19/23 15:00 01/19/23 15:03 01/19/23 15:03 Temperature Pulse Rate 63 Respiratory Rate 22 Blood Pressure 86/40 L 85/47 L Pulse Oximetry 96 Oxygen Delivery Method Oxygen Flow Rate 01/19/23 15:05 01/19/23 15:10 01/19/23 15:14 Temperature Pulse Rate 62 63 Respiratory Rate 24 24 Blood Pressure 85/51 L Pulse Oximetry 96 96 Oxygen Delivery Method Oxygen Flow Rate 01/19/23 15:14 01/19/23 15:15 01/19/23 15:15 Temperature Pulse Rate 63 63 Respiratory Rate 23 23 Blood Pressure 79/49 L Pulse Oximetry 96 Oxygen Delivery Method Oxygen Flow Rate 01/19/23 15:20 01/19/23 15:20 01/19/23 15:25 Temperature Pulse Rate 62 63 Respiratory Rate 21 20 Blood Pressure 84/40 L Pulse Oximetry 97 97 Oxygen Delivery Method Oxygen Flow Rate 01/19/23 15:25 01/19/23 15:30 01/19/23 15:30 Temperature Pulse Rate 62 Respiratory Rate 21 Blood Pressure 81/41 L 83/46 L Pulse Oximetry 97 Oxygen Delivery Method Oxygen Flow Rate 01/19/23 15:35 01/19/23 15:40 01/19/23 15:45 Temperature Pulse Rate 64 64 64 Respiratory Rate 21 25 H 22 Blood Pressure Pulse Oximetry 98 97 97 Oxygen Delivery Method Oxygen Flow Rate 01/19/23 15:47 01/19/23 15:47 01/19/23 15:50 Temperature Pulse Rate 66 66 Respiratory Rate 33 H 22 Blood Pressure 92/55 L Pulse Oximetry 98 98 Oxygen Delivery Method Nasal Cannula Oxygen Flow Rate 2 01/19/23 15:50 01/19/23 15:55 01/19/23 15:55 Temperature Pulse Rate 65 Respiratory Rate 24 Blood Pressure 79/43 L 89/52 L Pulse Oximetry 98 Oxygen Delivery Method Oxygen Flow Rate 01/19/23 16:00 01/19/23 16:01 01/19/23 16:01 Temperature Pulse Rate 63 66 Respiratory Rate 20 23 Blood Pressure 75/41 L Pulse Oximetry 96 96 Oxygen Delivery Method Oxygen Flow Rate 01/19/23 16:05 01/19/23 16:10 01/19/23 16:10 Temperature Pulse Rate 64 63 Respiratory Rate 22 21 Blood Pressure 64/38 L Pulse Oximetry 98 97 Oxygen Delivery Method Oxygen Flow Rate 01/19/23 16:15 01/19/23 16:20 01/19/23 16:20 Temperature Pulse Rate 64 64 Respiratory Rate 20 Blood Pressure 80/48 L Pulse Oximetry 97 97 Oxygen Delivery Method Nasal Cannula Oxygen Flow Rate 2 01/19/23 16:22 01/19/23 16:22 01/19/23 16:25 Temperature Pulse Rate 65 59 L Respiratory Rate Blood Pressure 88/52 L Pulse Oximetry 96 97 Oxygen Delivery Method Oxygen Flow Rate 01/19/23 16:30 01/19/23 16:31 01/19/23 16:31 Temperature Pulse Rate 66 66 Respiratory Rate Blood Pressure 118/56 L Pulse Oximetry 98 98 Oxygen Delivery Method Oxygen Flow Rate 01/19/23 16:35 01/19/23 16:37 01/19/23 16:37 Temperature Pulse Rate 63 68 Respiratory Rate 21 23 Blood Pressure 140/69 140/69 Pulse Oximetry 99 98 Oxygen Delivery Method Oxygen Flow Rate 01/19/23 16:40 01/19/23 16:41 01/19/23 16:41 Temperature Pulse Rate 70 70 Respiratory Rate 22 22 Blood Pressure 127/56 L Pulse Oximetry 98 97 Oxygen Delivery Method Oxygen Flow Rate 01/19/23 16:45 01/19/23 16:46 01/19/23 16:46 Temperature Pulse Rate 65 67 Respiratory Rate 22 22 Blood Pressure 103/47 L Pulse Oximetry 96 96 Oxygen Delivery Method Oxygen Flow Rate 01/19/23 16:50 01/19/23 16:51 01/19/23 16:51 Temperature Pulse Rate 64 64 Respiratory Rate 21 24 Blood Pressure 85/44 L Pulse Oximetry 95 94 Oxygen Delivery Method Oxygen Flow Rate MDM - Weakness Lab Data 01/24/23 04:28 01/24/23 04:28 Labs: Lab Results 01/19/23 01/19/23 Range/Units 13:15 15:58 WBC 8.7 (4.5-11.0) X10^3/uL RBC 3.30 L (4.0-5.2) X10^6/uL Hgb 10.9 L (12.0-16.0) g/dL Hct 32.8 L (36-46) % MCV 99.5 (80-100) fL MCH 33.1 (26-34) PG MCHC 33.3 (30-36) % RDW 14.9 H (11.6-14.8) % Plt Count 259 (150-400) X10^3/uL Neut % (Auto) 79.7 H (50-75) % Lymph % (Auto) 12.5 L (25-40) % [place] % (Auto) 6.6 (3-14) % Eos % (Auto) 1.0 L (2-4) % Baso % (Auto) 0.2 (0-2) % Neut # (Auto) 7000 (3281-2471) /uL Lymph # (Auto) 1100 (0717-3879) /uL [place] # (Auto) 600 (0-900) /uL Eos # (Auto) 100 (0-450) /uL Baso # (Auto) 0 (0-100) /uL PT 13.6 H (10.1-12.7) SECONDS INR 1.2 (0.9-1.3) Sodium 134 L (137-145) mmol/L Potassium 4.6 (3.4-5.1) mmol/L Chloride 91 L (98-107) mmol/L Carbon Dioxide 38 H (22-32) mmol/L BUN 55 H (7-17) mg/dL Creatinine 1.90 H (0.52-1.04) mg/dL Estimated GFR 30 L (>60) mL/min BUN/Creatinine Ratio 28.9 H (6-22) Glucose 250 H (80-110) mg/dL Lactate 1.7 (0.7-2.1) mmol/L Calcium 10.1 (8.4-10.2) mg/dL Total Bilirubin 0.3 (0.2-1.3) mg/dL AST 19 (14-36) IU/L ALT 13 (<35) IU/L Alkaline Phosphatase 78 (38-126) U/L Troponin I 0.025 (0.01-0.034) ng/mL NT-Pro-B Natriuret Pep 2470 H (<125) pg/mL Total Protein 6.8 (6.3-8.2) g/dL Albumin 3.4 L (3.5-5.0) g/dL Globulin 3.4 (1.7-4.1) g/dL Albumin/Globulin Ratio 1.0 (1.0-2.8) Procalcitonin 0.35 (<0.5) ng/mL TSH 4.46 (0.47-4.68) uIU/mL Urine Color Yellow Urine Appearance Cloudy Urine pH 6.5 (4.5-8.0) Ur Specific Julian 1.010 (1.000-1.035) Urine Protein Trace H (Negative) Urine Glucose (UA) Trace H (Negative) g/dL Urine Ketones Negative (NEGATIVE) Urine Occult Blood 1+ H (Negative) Urine Nitrate Negative (Negative) Urine Bilirubin Negative (NEGATIVE) Urine Urobilinogen 0.2 (0.2) E.U./dL Ur Leukocyte Esterase 2+ H (NEGATIVE) Urine RBC 1-5/hpf (0-5/HPF) Urine WBC >100/hpf H (0-5/HPF) Ur Squamous Epith Cells 0-1 /hpf (0-5/HPF) Urine Bacteria Many (>30) H (None) Ur Culture Indicated? Specimen cultured Micro UA Comment Imaging Data CT scan - abdomen/pelvis: Radiologist Impression: [address] [id number] [address] Scan Report Signed Patient: Mary Carmen Jett MR#: [id number] : 1960 Acct:[id number] Age/Sex: 62 / F Date of Service: 01/19/23 Loc: ED Accession Number: [id number] Procedure: CT abdomen pelvis w con Ordering Provider: Han Arredondo MD PROCEDURE: CT ABDOMEN PELVIS W CON INDICATIONS: IV contrast only / Sepsis TECHNIQUE: After the administration of intravenous contrast, axial sections acquired from the lung bases to the pubic symphysis. Coronal and sagittal reformats were performed. For radiation dose reduction, the following was used: automated exposure control, adjustment of mA and/or kV according to patient size. COMPARISON: [facility], CT, CT ABDOMEN PELVIS WO CON, 01/09/2023, 8:18. [facility], CT, CT ABDOMEN PELVIS W CON, 05/25/2022, 14:22. FINDINGS: Image quality: Excellent. Lung bases: Bibasilar dependent atelectasis is seen. Heart: Heart size is enlarged, no pericardial effusion. ABDOMEN: Liver: Unremarkable. Gallbladder: Gallbladder is within normal limits. Biliary ducts: Unremarkable. Pancreas: Unremarkable. Spleen: Unremarkable. Adrenal Glands: Unremarkable. Kidneys and Ureters: Bilateral kidneys show normal size and enhancement. No hydronephrosis or hydroureter. Nonspecific mild bilateral perinephric fat stranding is seen. Stomach and Bowel: Postsurgical changes are noted in right lower quadrant. Surgical anastomosis appears intact. There is no bowel obstruction. No abnormal bowel wall thickening or mesenteric fat stranding. Moderate fecal stasis throughout the colon extending to sigmoid colon and rectum is seen. No abscess collection. Peritoneum: No abnormal intraperitoneal fluid. No free air. Ventral Wall: No hernias. Abdominal Nodes: No retroperitoneal or mesenteric adenopathy by size criteria. Vessels: Aorta and inferior vena cava are normal in size. PELVIS: Pelvic Organs: Unremarkable. Bladder: Unremarkable. Pelvic Nodes: No enlarged lymph nodes. Miscellaneous: No hernias are seen. Bones: No suspicious bony lesions. No acute vertebral body compression fracture. IMPRESSION: 1. [id number] constipation and fecal impaction. No bowel obstruction or abnormal bowel wall thickening. No abscess collection. No free fluid or free air. 2. Nonspecific mild bilateral perinephric fat stranding. No obstructing renal stones or hydronephrosis. No hydroureter. Normal bladder wall thickness. Low-grade pyelonephritis cannot be excluded suggest urological correlation. 3. Bibasilar dependent atelectasis and cardiomegaly. Please correlate with CT of chest findings from the same day. Dictated by: Nahid Sellers M.D. on 01/19/2023 at 15:03 Approved by: Nahid Sellers M.D. on 01/19/2023 at 15:09 CT chest: Radiologist Impression: [address] [address] [address] Scan Report Signed Patient: Mary Carmen Jett MR#: [id number] : 1960 Acct:[id number] Age/Sex: 62 / F Date of Service: 01/19/23 Loc: ED Accession Number: [id number] Procedure: CT chest wo con Ordering Provider: Han Arredondo MD PROCEDURE: CT CHEST WO CON INDICATIONS: SEPSIS TECHNIQUE: Noncontrast 5 mm thick sections acquired from the pulmonary apices to the posterior costophrenic angles. 1 mm lung window, 5 mm thick coronal and sagittal and 7 mm axial MIP reformats were then acquired. For radiation dose reduction, the following was used: automated exposure control, adjustment of mA and/or kV according to patient size. COMPARISON: [facility], CT, CT CHEST WO CON, 01/07/2023, 9:15. FINDINGS: Image quality: Excellent. Lungs and pleura: Dependent atelectasis in posterior aspect of bilateral lung bases are seen. No significant pleural effusion. Mild centrilobular emphysematous changes are noted. No pneumothorax. Central and peripheral airways are patent and normal in caliber. Mediastinum: Heart size is enlarged. No pericardial effusion. 1.1 cm right paratracheal lymph node is seen. Mildly prominent bilateral hilar lymph nodes are also noted measures up to 9 millimeter in size in right hilar region. Thoracic aorta and central pulmonary arteries are normal in size. Esophagus is normal in caliber. No hiatal hernia. Bones and chest wall: No suspicious bony lesions. Old healed left lateral 7th rib fracture is seen. No vertebral body compression fractures. No axillary or supraclavicular adenopathy by size criteria. Thyroid gland is within normal limits. Abdomen: Visualized upper abdominal solid organs and bowel loops appear normal in the absence of contrast. IMPRESSION: 1. Mild dependent atelectasis in posterior aspect of bilateral lung bases. No focal infiltrate, pleural effusion or pneumothorax. Airway is patent. 2. Cardiomegaly, no pericardial effusion. Mildly prominent right paratracheal lymph node not significantly changed from prior study. 3. Suggestion of old healed left lateral 7th rib fracture. No suspicious bony lesions. No acute osseous abnormalities. Dictated by: Nahid Sellers M.D. on 01/19/2023 at 15:12 Approved by: Nahid Sellers M.D. on 01/19/2023 at 15:23 [facility] Narrative Medical decision making narrative: Patient here for assisted [facility]. Patient states she was feeling weak and her knees giving out and she fell to the ground but was assisted while sliding down to the floor. Did not hit her head. No loss of consciousness. Patient states in the past few days she is had some vaginal bleeding. She is postmenopausal without history of hysterectomy. She states her knees are always weak this is not new. Denies any prevent chest pain abdominal pain or back pain headache or dizziness. No night sweats or weight loss. Female nurse, Kalpana, at bedside for external vaginal exam does show dark blood clots at labia areas After history and exam CBC CMP troponin EKG CT chest abdomen pelvis normal saline [facility] CC: Weakness Complicating co-morbidities: Not on blood thinners Data collected from: EMS and patient Medical records reviewed: January 05, 2023 walk-in clinic notes Differential considered: Includes but not limited to STEMI non-STEMI angina unstable angina GI bleed acute anemia, uterine cancer Exam documented above, pertinent findings include: No gross deformities of the extremities, there is pale conjunctiva on exam Lab Test results independently reviewed as above. Pertinent findings: WBC 8.7 hemoglobin 10.9 hematocrit 32.8 INR 1.2 sodium 134 potassium 4.6 bicarb 38 BUN 55 creatinine 1.80 Procalcitonin 0.35 Lactic acid 1.7 Troponin 0.025 Independently reviewed EKG sinus rhythm rate [address] elevation or depression Imaging studies independently reviewed: CT chest no acute CT abdomen pelvis no acute findings, possible pyelonephritis Consultations: 4:[address] Alexis, hospitalist, who will see patient information. Agrees for ICU admit. However patient does not need central line at this time. Patient will start Levophed but very low dose for less than 1 minute and blood pressure raises very quickly and needs to discontinue the drip. Treatments: Normal saline Re-evaluations: 4:17 p.m.. Patient's blood pressure remains low despite 2 L normal saline boluses. However patient is awake alert oriented x4. Nontoxic appearing. Reviewed with her risks and benefits of central line in the need for it. She does understand. We will need to start on vasopressors. Discussion: Appropriate for admission. Patient requiring ICU/vasopressors/antibiotics for sepsis protocol. Antibiotics have been started Diagnosis: Sepsis Critical Care Time Critical Care Time Attestation: Critical Care Time 35 minutes: Critical care time is separate from other billable procedures. This critical care time includes consultation with family and other consulting doctors, review of records, and interpretation of data from labs, EKGs, imaging, etc. Discharge Plan Departure Patient Disposition: Admitted As Inpatient Clinical Impression: Sepsis Qualifiers: Sepsis type: sepsis due to unspecified organism Sepsis acute organ dysfunction status: unspecified Qualified Code(s): A41.9 - Sepsis, unspecified organism Admit Date/Time: 01/19/23 16:56 Admit Provider: Ayden Alexis
--- NOTE | 2023-01-19 15:33 | PC.NURSE ---
Pt bp 83/46, HR 62. pt bp's consistently low. pt asymptomatic and denies sob, cp, and dizziness. dr salazar aware. obtained verbal order for in-and-out cath for urine and manual bp.
--- NOTE | 2023-01-19 15:58 | PC.NURSE ---
in-and-out cath performed. 250cc out. pt tolerated well.
[2023-01-19 16:03] LABS: Appearance Urine UA CLOUDY; Bilirubin Urine UA NEGATIVE (NEGATIVE); Color Urine UA YELLOW; Glucose Urine UA TRACE g/dL (Negative); Ketones Urine UA NEGATIVE (NEGATIVE); Leukocyte Esterase Urine UA 2+ (NEGATIVE); Nitrite Urine UA NEGATIVE (Negative); Occult Blood Urine UA 1+ (Negative); Protein Urine UA TRACE (Negative); Urobilinogen Urine UA 0.2 E.U./dL (0.2)
[2023-01-19 16:10] LABS: pH Urine UA 6.5 (4.5-8.0)
[2023-01-19 16:11] LABS: Bacteria Urine Many (>30); Culture Indicated Urine Specimen Cultured; RBC Urine 1-5/HPF (0-5/HPF); Squamous Epithelial Cell Urine 0-1 /HPF (0-5/HPF); WBC Urine >100/HPF (0-5/HPF)
--- NOTE | 2023-01-19 16:15 | PC.NURSE ---
Addendum entered by Kalpana Faustin CNA 01/19/23 16:51: 1651 bp 85/44. verbal order obtained from dr salazar to start levofed at 0.05mg/kg/min. pt remains asymptomatic. denies sob, cp, dizziness. LOC intact. a&ox4 Addendum entered by Kalpana Faustin CNA 01/19/23 16:49: 1635 pt responding to levofed. bp 140/69. MAP remains over 65. dr salazar aware and obtained verbal order to pause levofed. Addendum entered by Kalpana Faustin CNA 01/19/23 16:47: 1615 levofed gtt started. bp set for q5 mins. pt remains asymptomatic. denies sob, cp, or dizziness. LOC intact. pt a&o x4. Original Note: pt bp 64/38. remains asymptomatic. denies sob, cp, dizziness. no changes in LOC. dr salazar made aware @ [id number]
[2023-01-19] MEDS: NOREPINEPHRINE BITARTRATE/D5W 4 MG/250 ML PLAST..BAG 45.15 MG IV (16:17)
[2023-01-19] MEDS: PIPERACILLIN/TAZO 4.5 GM in SODIUM CHLORIDE 0.9% 100 ML IV (16:33)
[2023-01-19] MEDS: SODIUM CHLORIDE 0.9% 1,000 ML 125 ML IV (18:00)
[2023-01-19] MEDS: MEROPENEM 2 GM in SODIUM CHLORIDE 0.9% 100 ML IV (18:06)
--- NOTE | 2023-01-19 18:12 | PM.CN.EICU ---
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 Alexis Narrative: Patient is a 62 year old female with history of obesity, COPD, DM, HFpEF, and obesity who presents with a ground level fall. By report patient has been feeling weak and her knees gave up on her which she fell to the ground. No reported LOC and patient did not hit her bead. On presentation, labs notable for UA -> + many bacteria and many WBC. She was hypotensive requiring IVF resuscitation and started on levophed. Admitted to ICU on levophed 0.0250 mcg/kg/min. CT abdomen/pelvis: 1. Vogq-nq-fizoirpi constipation and fecal impaction. No bowel obstruction or abnormal bowel wall thickening. No abscess collection. No free fluid or free air. 2. Nonspecific mild bilateral perinephric fat stranding. No obstructing renal stones or hydronephrosis. No hydroureter. Normal bladder wall thickness. Low-grade pyelonephritis cannot be excluded suggest urological correlation. 3. Bibasilar dependent atelectasis and cardiomegaly. Please correlate with CT of chest findings from the same day. [facility] Medical History PONCE (obstructive sleep apnea) Chronic hypoxemic respiratory failure COPD (chronic obstructive pulmonary disease) DM2 (diabetes mellitus, type 2) HTN (hypertension) Thyroiditis Systolic and diastolic CHF, chronic Obesity Surgical History S/P hernia surgery Family History Mother No pertinent past medical history Father No pertinent past medical history Social History household members: other Smoking Status: Former smoker alcohol intake: former Current Medications Current Medications Medications: Home Medications acetaminophen 325 mg tablet (Tylenol) 650 mg PO TID 05/25/22 [History Confirmed 01/05/23] aspirin 81 mg tablet,delayed release 81 mg PO DAILY 05/25/22 [History Confirmed 01/05/23] budesonide-formoterol HFA 160 mcg-4.5 mcg/actuation aerosol inhaler 2 puff inhalation Q4H PRN Wheezing 05/25/22 [History Confirmed 01/05/23] bupropion HCl 150 mg tablet,12 hr sustained-release 150 mg PO BEDTIME 05/25/22 [History Confirmed 01/05/23] carvedilol 3.125 mg tablet 3.125 mg PO BID 05/25/22 [History Confirmed 01/05/23] cyanocobalamin (vitamin B-12) 500 mcg tablet 500 mcg PO DAILY 05/25/22 [History Confirmed 01/05/23] fenofibrate 160 mg tablet 160 mg PO DAILY 05/25/22 [History Confirmed 01/05/23] ferrous sulfate 325 mg (65 mg iron) tablet 325 mg PO DAILY 05/25/22 [History Confirmed 01/05/23] fluoxetine 20 mg tablet 20 mg PO DAILY 05/25/22 [History Confirmed 01/05/23] fluticasone propionate 50 mcg/actuation nasal spray,suspension 2 spray intranasal DAILY 05/25/22 [History Confirmed 01/05/23] gabapentin 300 mg capsule 300 mg PO BEDTIME 05/25/22 [History Confirmed 01/05/23] insulin glargine 100 unit/mL (3 mL) subcutaneous pen 22 unit SUBCUT BID 05/25/22 [History Confirmed 01/05/23] insulin lispro 100 unit/mL subcutaneous solution (Humalog U-100 Insulin) 3 unit SUBCUT TIDWM 05/25/22 [History Confirmed 01/05/23] lidocaine 5 % topical patch 1 patch topical DAILY 05/25/22 [History Confirmed 01/05/23] loratadine 10 mg tablet 10 mg PO DAILY 05/25/22 [History Confirmed 01/05/23] magnesium oxide 200 mg PO DAILY 05/25/22 [History Confirmed 01/05/23] meclizine 25 mg tablet 25 mg PO Q8HR PRN Dizziness 05/25/22 [History Confirmed 01/05/23] montelukast 10 mg tablet 10 mg PO DAILY 05/25/22 [History Confirmed 01/05/23] nystatin 100,000 unit/gram topical powder 1 applic topical BID PRN Rash 05/25/22 [History Confirmed 01/05/23] ondansetron 4 mg disintegrating tablet 4 mg PO Q8H PRN Nausea 05/25/22 [History Confirmed 01/05/23] rosuvastatin 40 mg tablet 40 mg PO DAILY 05/25/22 [History Confirmed 01/05/23] sennosides 8.6 mg tablet (senna) 17.2 mg PO BEDTIME 05/25/22 [History Confirmed 01/05/23] tiotropium bromide 18 mcg capsule with inhalation device (Spiriva with HandiHaler) 1 cap inhalation DAILY 05/25/22 [History Confirmed 01/05/23] trazodone 50 mg tablet 50 mg PO BEDTIME 05/25/22 [History Confirmed 01/05/23] albuterol sulfate 90 mcg/actuation aerosol inhaler 4 puff inhalation Q4H PRN Shortness Of Breath Or Wheezing 08/15/22 [History Confirmed 01/05/23] levothyroxine 175 mcg tablet 175 mcg PO DAILY 08/15/22 [History Confirmed 01/05/23] potassium chloride 10 mEq tablet,extended release 10 meq PO DAILY 08/15/22 [History Confirmed 01/05/23] torsemide 10 mg tablet 10 mg PO DAILY 08/15/22 [History Confirmed 01/05/23] levofloxacin 750 mg tablet 750 mg PO DAILY #9 tabs 01/10/23 [Rx] Visit Medications (administered) Generic Name Dose Route Start Last Admin Trade Name Freq PRN Reason Stop Dose Admin NOREPINEPHRINE BITARTRATE/D5W 4 mg in 250 mls @ 45.15 mls/hr 01/19/23 16:15 01/19/23 17:05 Levophed IV 0.025 mcg/kg/min TITRATE JAY JAY 11.288 mls/hr Titration Protocol 0.1 MCG/KG/MIN Sodium Chloride 1,000 mls @ 125 mls/hr 01/19/23 17:00 01/19/23 18:00 Normal Saline 0.9% IV 01/20/23 04:59 125 mls/hr CONT JAY JAY Administration Meropenem 2 gm/ Sodium 100 mls @ 200 mls/hr 01/19/23 17:00 01/19/23 18:06 Chloride IV 200 mls/hr Q12H JAY JAY Administration Exam Vital Signs (past 8 hours): - 01/19/23 13:18 01/19/23 13:18 01/19/23 13:26 Temperature 98.0 F Pulse Rate 69 65 Respiratory Rate 20 Blood Pressure 83/52 L 83/52 L Pulse Oximetry 94 95 Oxygen Delivery Method Room Air Oxygen Flow Rate 01/19/23 13:30 01/19/23 13:30 01/19/23 13:45 Temperature Pulse Rate 66 63 Respiratory Rate 23 23 Blood Pressure 78/49 L Pulse Oximetry 95 96 Oxygen Delivery Method Oxygen Flow Rate 01/19/23 13:45 01/19/23 14:11 01/19/23 14:12 Temperature Pulse Rate 65 65 Respiratory Rate 21 Blood Pressure 82/53 L Pulse Oximetry 95 95 Oxygen Delivery Method Oxygen Flow Rate 01/19/23 14:12 01/19/23 14:15 01/19/23 14:15 Temperature Pulse Rate 65 Respiratory Rate 24 Blood Pressure 74/46 L 79/47 L Pulse Oximetry Oxygen Delivery Method Oxygen Flow Rate 01/19/23 14:25 01/19/23 14:25 01/19/23 14:30 Temperature Pulse Rate 62 68 Respiratory Rate 28 H 28 H Blood Pressure 82/39 L Pulse Oximetry 93 Oxygen Delivery Method Oxygen Flow Rate 01/19/23 14:31 01/19/23 14:31 01/19/23 14:35 Temperature Pulse Rate 66 63 Respiratory Rate 23 26 H Blood Pressure 94/50 L Pulse Oximetry 94 94 Oxygen Delivery Method Oxygen Flow Rate 01/19/23 14:40 01/19/23 14:54 01/19/23 14:55 Temperature Pulse Rate 65 71 64 Respiratory Rate 29 H 21 21 Blood Pressure Pulse Oximetry 94 98 95 Oxygen Delivery Method Oxygen Flow Rate 01/19/23 14:56 01/19/23 14:56 01/19/23 15:00 Temperature Pulse Rate 64 66 Respiratory Rate 23 23 Blood Pressure 87/52 L Pulse Oximetry 96 95 Oxygen Delivery Method Oxygen Flow Rate 01/19/23 15:00 01/19/23 15:03 01/19/23 15:03 Temperature Pulse Rate 63 Respiratory Rate 22 Blood Pressure 86/40 L 85/47 L Pulse Oximetry 96 Oxygen Delivery Method Oxygen Flow Rate 01/19/23 15:05 01/19/23 15:10 01/19/23 15:14 Temperature Pulse Rate 62 63 Respiratory Rate 24 24 Blood Pressure 85/51 L Pulse Oximetry 96 96 Oxygen Delivery Method Oxygen Flow Rate 01/19/23 15:14 01/19/23 15:15 01/19/23 15:15 Temperature Pulse Rate 63 63 Respiratory Rate 23 23 Blood Pressure 79/49 L Pulse Oximetry 96 Oxygen Delivery Method Oxygen Flow Rate 01/19/23 15:20 01/19/23 15:20 01/19/23 15:25 Temperature Pulse Rate 62 63 Respiratory Rate 21 20 Blood Pressure 84/40 L Pulse Oximetry 97 97 Oxygen Delivery Method Oxygen Flow Rate 01/19/23 15:25 01/19/23 15:30 01/19/23 15:30 Temperature Pulse Rate 62 Respiratory Rate 21 Blood Pressure 81/41 L 83/46 L Pulse Oximetry 97 Oxygen Delivery Method Oxygen Flow Rate 01/19/23 15:35 01/19/23 15:40 01/19/23 15:45 Temperature Pulse Rate 64 64 64 Respiratory Rate 21 25 H 22 Blood Pressure Pulse Oximetry 98 97 97 Oxygen Delivery Method Oxygen Flow Rate 01/19/23 15:47 01/19/23 15:47 01/19/23 15:50 Temperature Pulse Rate 66 66 Respiratory Rate 33 H 22 Blood Pressure 92/55 L Pulse Oximetry 98 98 Oxygen Delivery Method Nasal Cannula Oxygen Flow Rate 2 01/19/23 15:50 01/19/23 15:55 01/19/23 15:55 Temperature Pulse Rate 65 Respiratory Rate 24 Blood Pressure 79/43 L 89/52 L Pulse Oximetry 98 Oxygen Delivery Method Oxygen Flow Rate 01/19/23 16:00 01/19/23 16:01 01/19/23 16:01 Temperature Pulse Rate 63 66 Respiratory Rate 20 23 Blood Pressure 75/41 L Pulse Oximetry 96 96 Oxygen Delivery Method Oxygen Flow Rate 01/19/23 16:05 01/19/23 16:10 01/19/23 16:10 Temperature Pulse Rate 64 63 Respiratory Rate 22 21 Blood Pressure 64/38 L Pulse Oximetry 98 97 Oxygen Delivery Method Oxygen Flow Rate 01/19/23 16:15 01/19/23 16:20 01/19/23 16:20 Temperature Pulse Rate 64 64 Respiratory Rate 20 Blood Pressure 80/48 L Pulse Oximetry 97 97 Oxygen Delivery Method Nasal Cannula Oxygen Flow Rate 2 01/19/23 16:22 01/19/23 16:22 01/19/23 16:25 Temperature Pulse Rate 65 59 L Respiratory Rate Blood Pressure 88/52 L Pulse Oximetry 96 97 Oxygen Delivery Method Oxygen Flow Rate 01/19/23 16:30 01/19/23 16:31 01/19/23 16:31 Temperature Pulse Rate 66 66 Respiratory Rate Blood Pressure 118/56 L Pulse Oximetry 98 98 Oxygen Delivery Method Oxygen Flow Rate 01/19/23 16:35 01/19/23 16:37 01/19/23 16:37 Temperature Pulse Rate 63 68 Respiratory Rate 21 23 Blood Pressure 140/69 140/69 Pulse Oximetry 99 98 Oxygen Delivery Method Oxygen Flow Rate 01/19/23 16:40 01/19/23 16:41 01/19/23 16:41 Temperature Pulse Rate 70 70 Respiratory Rate 22 22 Blood Pressure 127/56 L Pulse Oximetry 98 97 Oxygen Delivery Method Oxygen Flow Rate 01/19/23 16:45 01/19/23 16:46 01/19/23 16:46 Temperature Pulse Rate 65 67 Respiratory Rate 22 22 Blood Pressure 103/47 L Pulse Oximetry 96 96 Oxygen Delivery Method Oxygen Flow Rate 01/19/23 16:50 01/19/23 16:51 01/19/23 16:51 Temperature Pulse Rate 64 64 Respiratory Rate 21 24 Blood Pressure 85/44 L Pulse Oximetry 95 94 Oxygen Delivery Method Oxygen Flow Rate 01/19/23 16:55 01/19/23 16:56 01/19/23 16:56 Temperature Pulse Rate 61 64 Respiratory Rate 24 22 Blood Pressure 123/56 L Pulse Oximetry 98 96 Oxygen Delivery Method Nasal Cannula Oxygen Flow Rate 2 01/19/23 17:00 01/19/23 17:04 01/19/23 17:04 Temperature Pulse Rate 67 69 Respiratory Rate 23 Blood Pressure 144/65 H Pulse Oximetry 98 97 Oxygen Delivery Method Oxygen Flow Rate 01/19/23 17:05 01/19/23 17:09 01/19/23 17:09 Temperature Pulse Rate 68 69 Respiratory Rate 23 25 H Blood Pressure 120/57 L Pulse Oximetry 98 96 Oxygen Delivery Method Oxygen Flow Rate 01/19/23 17:10 01/19/23 17:15 01/19/23 17:20 Temperature Pulse Rate 69 66 67 Respiratory Rate 24 23 Blood Pressure Pulse Oximetry 97 98 98 Oxygen Delivery Method Oxygen Flow Rate 01/19/23 17:25 01/19/23 17:30 01/19/23 17:35 Temperature Pulse Rate 68 67 72 Respiratory Rate 30 H 24 Blood Pressure 97/58 L Pulse Oximetry 97 97 98 Oxygen Delivery Method Oxygen Flow Rate 01/19/23 17:40 01/19/23 17:45 01/19/23 17:50 Temperature Pulse Rate 66 66 68 Respiratory Rate 24 21 23 Blood Pressure Pulse Oximetry 97 98 98 Oxygen Delivery Method Nasal Cannula Oxygen Flow Rate 2 01/19/23 17:53 01/19/23 17:53 01/19/23 17:55 Temperature Pulse Rate 68 66 Respiratory Rate 24 27 H Blood Pressure 122/59 L Pulse Oximetry 97 97 Oxygen Delivery Method Oxygen Flow Rate 01/19/23 18:00 Temperature Pulse Rate 68 Respiratory Rate 22 Blood Pressure Pulse Oximetry 98 Oxygen Delivery Method Oxygen Flow Rate Oxygen Delivery Method Nasal Cannula Oxygen Flow Rate 2 Narrative Exam Narrative: Awake and following commands. NAD. Objective Labs 01/19/23 13:15 01/19/23 13:15 Labs: Laboratory Results - last 24 hr 01/19/23 01/19/23 13:15 15:58 WBC 8.7 RBC 3.30 L Hgb 10.9 L Hct 32.8 L MCV 99.5 MCH 33.1 MCHC 33.3 RDW 14.9 H Plt Count 259 Neut % (Auto) 79.7 H Lymph % (Auto) 12.5 L [place] % (Auto) 6.6 Eos % (Auto) 1.0 L Baso % (Auto) 0.2 Neut # (Auto) 7000 Lymph # (Auto) 1100 [place] # (Auto) 600 Eos # (Auto) 100 Baso # (Auto) 0 PT 13.6 H INR 1.2 Sodium 134 L Potassium 4.6 Chloride 91 L Carbon Dioxide 38 H BUN 55 H Creatinine 1.90 H Estimated GFR 30 L BUN/Creatinine Ratio 28.9 H Glucose 250 H Lactate 1.7 Calcium 10.1 Total Bilirubin 0.3 AST 19 ALT 13 Alkaline Phosphatase 78 Troponin I 0.025 Total Protein 6.8 Albumin 3.4 L Globulin 3.4 Albumin/Globulin Ratio 1.0 Procalcitonin 0.35 Urine Color Yellow Urine Appearance Cloudy Urine pH 6.5 Ur Specific Mccool 1.010 Urine Protein Trace H Urine Glucose (UA) Trace H Urine Ketones Negative Urine Occult Blood 1+ H Urine Nitrate Negative Urine Bilirubin Negative Urine Urobilinogen 0.2 Ur Leukocyte Esterase 2+ H Urine RBC 1-5/hpf Urine WBC >100/hpf H Ur Squamous Epith Cells 0-1 /hpf Urine Bacteria Many (>30) H Ur Culture Indicated? Specimen cultured Micro UA Comment Assessment & Plan Assessment & Plan narrative: NEURO: # Decondition -- PT/OT and OOB as tolerated RESP: # Chronic hypoxemia respiratory failure -- Encourage IS -- Strict I/O -- Seek early mobility -- Goal SpO2 > 88% CVS: # Shock -- Concern for distributive. Other ddx include cardiogenic. -- On low dose levophed -- Sepsis workup as below -- Check TTE -- Added stress dose steroids -- MAP goal > 65 : # BLANCA -- Maintain MAP goal > 65 -- Avoid nephrotoxin agents -- Strict I/O -- Trend BMP -- Monitor UOP ID: # Septic shock -- Check blood and urine cx -- CT chest not supportive of PNA -- On meropenem -- Follow up cx data -- On stress dose steroids -- MAP goal > 65 ENDO: # Hypothyroidism -- On synthroid D/w Dr. Alexis. Time Spent With Patient Time with patient: 30 to 49 minutes with 50% spent counseling/coordinating care
--- NOTE | 2023-01-19 18:26 | DI.ECHO.S_ITS ---
[facility]---------[facility] +---------+ : : [address] : : : : [id number] : : : : Phone: [phone]+ Echocardiogram Report + + :Name: ELLA OSHEA Study Date: 01/20/2023 Height: 60 in : :[facility] ReadingLocation: Weight: 265 lb : : Gender: Female BSA: 2.1 m2 : :: 1960 Age: 62 yrs BP: 136/59 mmHg: :Reason For Study: Cardiogenic Shock : :Ordering Physician: CORNELL, : :ZEN Harvey Performed By: Danelle Messina : :Referring: ZEN SARABIA : + + Interpretation Summary The study quality was technically difficult. Left ventricular ejection fraction is estimated to be 25 +/- 5%. Grade I diastolic dysfunction. The right ventricular systolic pressure is estimated to be at least 21 mmHg based on an estimated right atrial pressure of 3 mm Hg. The left atrial size is normal. No obvious significant valvular abnormality. Procedure: A two-dimensional transthoracic echocardiogram with color flow and Doppler was performed. The study quality was technically difficult. Comparison is made with the echocardiogram of 08/16/2022 (Limited). Left Ventricle: The left ventricle is normal in size. Left ventricular ejection fraction is estimated to be 25 +/- 5%. There is severe global hypokinesis of the left ventricle. Septal motion is consistent with conduction abnormality. Grade I diastolic dysfunction. Right Ventricle: The right ventricle is not well visualized. Atria: The left atrial size is normal. Right atrium not well visualized. There is no Doppler evidence for an interatrial shunt. Mitral Valve: The mitral valve is not well visualized. There is mild mitral annular calcification. There is no mitral valve stenosis. There is trace mitral regurgitation. Aortic Valve: The aortic valve is trileaflet. There is mild aortic valve sclerosis. There is no hemodynamically significant valvular aortic stenosis. AMADOU is in the severe range. No aortic regurgitation is present. Tricuspid Valve: The tricuspid valve is normal. There is no tricuspid stenosis. There is trace tricuspid regurgitation. The right ventricular systolic pressure is estimated to be at least 21 mmHg based on an estimated right atrial pressure of 3 mm Hg. Pulmonic Valve: The pulmonic valve is not well visualized. There is no pulmonic valvular stenosis. There is no pulmonic valvular regurgitation. Great Vessels: The aortic root is normal size. The ascending aorta is normal in size. The pulmonary artery is normal size. The IVC is of normal diameter and collapses greater than 50% with a sniff. This suggests a low right atrial pressure of 3 mm Hg. Pericardium/ Pleura There is a trivial pericardial effusion noted. There is no pleural effusion. MMode/2D Measurements & Calculations LVIDd: 5.3 cm LVOT diam: 1.5 cm LVIDs: 3.3 cm Ao root diam: 2.2 cm FS: 37.7 % asc Aorta Diam: 2.2 cm IVSd: 1.0 cm LVPWd: 1.0 cm LV cotto. diameter/BSA (cm/m^2): 2.5 LV sys. diameter/BSA (cm/m^2): 1.6 LA A2 area: 22.0 cm2 LA A4 area: 17.0 cm2 LA length (vol): 6.6 cm LA vol: 48.2 ml LA vol index: 22.9 ml/m2 Doppler Measurements & Calculations Ao V2 max: 135.0 cm/sec LVOT Max Arturo: 51.5 cm/sec Ao V2 mean: 91.1 cm/sec LV V1 max P.1 mmHg Ao max P.0 mmHg LV V1 VTI: 11.2 cm Ao mean P.0 mmHg AMADOU(I,D): 0.69 cm2 Ao V2 VTI: 28.8 cm AMADOU(V,D): 0.67 cm2 sev ratio: 0.39 AMADOU indexed to BSA (cm^2/m^2): 0.33 MV E max arturo: 118.0 cm/sec TR max arturo: 211.4 cm/sec MV A max arturo: 74.9 cm/sec TR max P.9 mmHg MV E/A: 1.6 Med Peak E' Arturo: 5.3 cm/sec E/E' med: 22.1 Lat Peak E' Arturo: 6.3 cm/sec E/E' lat: 18.6 E/e' average: 20.4 MV dec time: 0.18 sec SV(LVOT): 19.8 ml AV VR_phl: 0.38 AMADOU(VTI)/BSA_phl: 0.33 Reading Physician:BURTON
[2023-01-19 18:52] LABS: NT-proBNP (BNP-Adult 18+) 2470 pg/mL (<125)
--- NOTE | 2023-01-19 18:56 | P.HP_ITS ---
History of Present Illness History of Present Illness Date Patient Seen: 01/19/23 Chief complaint: fall r knee pain Narrative: Mary Carmen Jett is a 62yo F with PMH of DM2, COPD on chronic 2L O2, HFrEF of 30-35%, morbid obesity, PONCE, HTN, hypothyroidism, frequent UTI's and depression who presents with weakness and shock. Patient apparently slid off her bed at [facility] due to weakness and found to have BP of 80's sytolic. She states when she left the hospital a week ago she never really felt like she got better. Says she has been weak since then. Notes a sore throat but no cough, congestion or runny nose. Denies dysuria or suprapubic pain. In the ED patient had BP of 83/52 and given 2L NS boluses without much improvement. Started on levophed at 0.025mcg and BP jumped to 120's sytolic. Blood cultures taken and UA noted to have pyuria. She was taking levaquin after last hospitalization a week ago for E. coli bacteremia and UTI. She denies CP, SOB, headache, fever/chills, abd pain or diarrhea. [facility] Medical History PONCE (obstructive sleep apnea) Chronic hypoxemic respiratory failure COPD (chronic obstructive pulmonary disease) DM2 (diabetes mellitus, type 2) HTN (hypertension) Thyroiditis Systolic and diastolic CHF, chronic Obesity Surgical History S/P hernia surgery Family History Mother No pertinent past medical history Father No pertinent past medical history Social History household members: other Smoking Status: Former smoker alcohol intake: former Meds Home Medications and Allergies Home Medications Medication Instructions Recorded Confirmed Type acetaminophen 325 mg tablet 650 mg PO TID 05/25/22 01/20/23 History (Tylenol) aspirin 81 mg tablet,delayed 81 mg PO DAILY 05/25/22 01/20/23 History release budesonide-formoterol HFA 160 2 puff inhalation Q4H PRN Wheezing 05/25/22 01/20/23 History mcg-4.5 mcg/actuation aerosol inhaler bupropion HCl 150 mg tablet,12 hr 150 mg PO BEDTIME 05/25/22 01/20/23 History sustained-release carvedilol 3.125 mg tablet 3.125 mg PO BID 05/25/22 01/20/23 History cyanocobalamin (vitamin B-12) 500 500 mcg PO DAILY 05/25/22 01/20/23 History mcg tablet fenofibrate 160 mg tablet 160 mg PO DAILY 05/25/22 01/20/23 History ferrous sulfate 325 mg (65 mg 325 mg PO DAILY 05/25/22 01/20/23 History iron) tablet fluoxetine 20 mg tablet 20 mg PO DAILY 05/25/22 01/20/23 History fluticasone propionate 50 2 spray intranasal DAILY 05/25/22 01/20/23 History mcg/actuation nasal spray,suspension gabapentin 300 mg capsule 300 mg PO BEDTIME 05/25/22 01/20/23 History insulin glargine 100 unit/mL (3 22 unit SUBCUT BID 05/25/22 01/20/23 History mL) subcutaneous pen insulin lispro 100 unit/mL 3 unit SUBCUT TIDWM 05/25/22 01/20/23 History subcutaneous solution (Humalog U-100 Insulin) lidocaine 5 % topical patch 1 patch topical DAILY 05/25/22 01/20/23 History loratadine 10 mg tablet 10 mg PO DAILY 05/25/22 01/20/23 History magnesium oxide 200 mg PO DAILY 05/25/22 01/20/23 History meclizine 25 mg tablet 25 mg PO Q8HR PRN Dizziness 05/25/22 01/20/23 History montelukast 10 mg tablet 10 mg PO DAILY 05/25/22 01/20/23 History nystatin 100,000 unit/gram topical 1 applic topical BID PRN Rash 05/25/22 01/20/23 History powder ondansetron 4 mg disintegrating 4 mg PO Q8H PRN Nausea 05/25/22 01/20/23 History tablet rosuvastatin 40 mg tablet 40 mg PO DAILY 05/25/22 01/20/23 History sennosides 8.6 mg tablet (senna) 17.2 mg PO BEDTIME 05/25/22 01/20/23 History tiotropium bromide 18 mcg capsule 1 cap inhalation DAILY 05/25/22 01/20/23 History with inhalation device (Spiriva with HandiHaler) trazodone 50 mg tablet 50 mg PO BEDTIME 05/25/22 01/20/23 History albuterol sulfate 90 mcg/actuation 4 puff inhalation Q4H PRN 08/15/22 01/20/23 History aerosol inhaler Shortness Of Breath Or Wheezing levothyroxine 175 mcg tablet 175 mcg PO DAILY 08/15/22 01/20/23 History potassium chloride 10 mEq 10 meq PO DAILY 08/15/22 01/20/23 History tablet,extended release torsemide 10 mg tablet 10 mg PO DAILY 08/15/22 01/20/23 History levofloxacin 750 mg tablet 750 mg PO DAILY #9 tabs 01/10/23 01/20/23 Rx Allergies Allergy/AdvReac Type Severity Reaction Status Date / Time No Known Drug Allergies Allergy Verified 05/25/22 12:43 Review of Systems Review of Systems Narrative: All other systems reviewed with the patient and are negative unless otherwise stated. Exam Vital Signs (past 8 hours): - 01/19/23 13:18 01/19/23 13:18 01/19/23 13:26 Temperature 98.0 F Pulse Rate 69 65 Respiratory Rate 20 Blood Pressure 83/52 L 83/52 L Pulse Oximetry 94 95 Oxygen Delivery Method Room Air Oxygen Flow Rate 01/19/23 13:30 01/19/23 13:30 01/19/23 13:45 Temperature Pulse Rate 66 63 Respiratory Rate 23 23 Blood Pressure 78/49 L Pulse Oximetry 95 96 Oxygen Delivery Method Oxygen Flow Rate 01/19/23 13:45 01/19/23 14:11 01/19/23 14:12 Temperature Pulse Rate 65 65 Respiratory Rate 21 Blood Pressure 82/53 L Pulse Oximetry 95 95 Oxygen Delivery Method Oxygen Flow Rate 01/19/23 14:12 01/19/23 14:15 01/19/23 14:15 Temperature Pulse Rate 65 Respiratory Rate 24 Blood Pressure 74/46 L 79/47 L Pulse Oximetry Oxygen Delivery Method Oxygen Flow Rate 01/19/23 14:25 01/19/23 14:25 01/19/23 14:30 Temperature Pulse Rate 62 68 Respiratory Rate 28 H 28 H Blood Pressure 82/39 L Pulse Oximetry 93 Oxygen Delivery Method Oxygen Flow Rate 01/19/23 14:31 01/19/23 14:31 01/19/23 14:35 Temperature Pulse Rate 66 63 Respiratory Rate 23 26 H Blood Pressure 94/50 L Pulse Oximetry 94 94 Oxygen Delivery Method Oxygen Flow Rate 01/19/23 14:40 01/19/23 14:54 01/19/23 14:55 Temperature Pulse Rate 65 71 64 Respiratory Rate 29 H 21 21 Blood Pressure Pulse Oximetry 94 98 95 Oxygen Delivery Method Oxygen Flow Rate 01/19/23 14:56 01/19/23 14:56 01/19/23 15:00 Temperature Pulse Rate 64 66 Respiratory Rate 23 23 Blood Pressure 87/52 L Pulse Oximetry 96 95 Oxygen Delivery Method Oxygen Flow Rate 01/19/23 15:00 01/19/23 15:03 01/19/23 15:03 Temperature Pulse Rate 63 Respiratory Rate 22 Blood Pressure 86/40 L 85/47 L Pulse Oximetry 96 Oxygen Delivery Method Oxygen Flow Rate 01/19/23 15:05 01/19/23 15:10 01/19/23 15:14 Temperature Pulse Rate 62 63 Respiratory Rate 24 24 Blood Pressure 85/51 L Pulse Oximetry 96 96 Oxygen Delivery Method Oxygen Flow Rate 01/19/23 15:14 01/19/23 15:15 01/19/23 15:15 Temperature Pulse Rate 63 63 Respiratory Rate 23 23 Blood Pressure 79/49 L Pulse Oximetry 96 Oxygen Delivery Method Oxygen Flow Rate 01/19/23 15:20 01/19/23 15:20 01/19/23 15:25 Temperature Pulse Rate 62 63 Respiratory Rate 21 20 Blood Pressure 84/40 L Pulse Oximetry 97 97 Oxygen Delivery Method Oxygen Flow Rate 01/19/23 15:25 01/19/23 15:30 01/19/23 15:30 Temperature Pulse Rate 62 Respiratory Rate 21 Blood Pressure 81/41 L 83/46 L Pulse Oximetry 97 Oxygen Delivery Method Oxygen Flow Rate 01/19/23 15:35 01/19/23 15:40 01/19/23 15:45 Temperature Pulse Rate 64 64 64 Respiratory Rate 21 25 H 22 Blood Pressure Pulse Oximetry 98 97 97 Oxygen Delivery Method Oxygen Flow Rate 01/19/23 15:47 01/19/23 15:47 01/19/23 15:50 Temperature Pulse Rate 66 66 Respiratory Rate 33 H 22 Blood Pressure 92/55 L Pulse Oximetry 98 98 Oxygen Delivery Method Nasal Cannula Oxygen Flow Rate 2 01/19/23 15:50 01/19/23 15:55 01/19/23 15:55 Temperature Pulse Rate 65 Respiratory Rate 24 Blood Pressure 79/43 L 89/52 L Pulse Oximetry 98 Oxygen Delivery Method Oxygen Flow Rate 01/19/23 16:00 01/19/23 16:01 01/19/23 16:01 Temperature Pulse Rate 63 66 Respiratory Rate 20 23 Blood Pressure 75/41 L Pulse Oximetry 96 96 Oxygen Delivery Method Oxygen Flow Rate 01/19/23 16:05 01/19/23 16:10 01/19/23 16:10 Temperature Pulse Rate 64 63 Respiratory Rate 22 21 Blood Pressure 64/38 L Pulse Oximetry 98 97 Oxygen Delivery Method Oxygen Flow Rate 01/19/23 16:15 01/19/23 16:20 01/19/23 16:20 Temperature Pulse Rate 64 64 Respiratory Rate 20 Blood Pressure 80/48 L Pulse Oximetry 97 97 Oxygen Delivery Method Nasal Cannula Oxygen Flow Rate 2 01/19/23 16:22 01/19/23 16:22 01/19/23 16:25 Temperature Pulse Rate 65 59 L Respiratory Rate Blood Pressure 88/52 L Pulse Oximetry 96 97 Oxygen Delivery Method Oxygen Flow Rate 01/19/23 16:30 01/19/23 16:31 01/19/23 16:31 Temperature Pulse Rate 66 66 Respiratory Rate Blood Pressure 118/56 L Pulse Oximetry 98 98 Oxygen Delivery Method Oxygen Flow Rate 01/19/23 16:35 01/19/23 16:37 01/19/23 16:37 Temperature Pulse Rate 63 68 Respiratory Rate 21 23 Blood Pressure 140/69 140/69 Pulse Oximetry 99 98 Oxygen Delivery Method Oxygen Flow Rate 01/19/23 16:40 01/19/23 16:41 01/19/23 16:41 Temperature Pulse Rate 70 70 Respiratory Rate 22 22 Blood Pressure 127/56 L Pulse Oximetry 98 97 Oxygen Delivery Method Oxygen Flow Rate 01/19/23 16:45 01/19/23 16:46 01/19/23 16:46 Temperature Pulse Rate 65 67 Respiratory Rate 22 22 Blood Pressure 103/47 L Pulse Oximetry 96 96 Oxygen Delivery Method Oxygen Flow Rate 01/19/23 16:50 01/19/23 16:51 01/19/23 16:51 Temperature Pulse Rate 64 64 Respiratory Rate 21 24 Blood Pressure 85/44 L Pulse Oximetry 95 94 Oxygen Delivery Method Oxygen Flow Rate 01/19/23 16:55 01/19/23 16:56 01/19/23 16:56 Temperature Pulse Rate 61 64 Respiratory Rate 24 22 Blood Pressure 123/56 L Pulse Oximetry 98 96 Oxygen Delivery Method Nasal Cannula Oxygen Flow Rate 2 01/19/23 17:00 01/19/23 17:04 01/19/23 17:04 Temperature Pulse Rate 67 69 Respiratory Rate 23 Blood Pressure 144/65 H Pulse Oximetry 98 97 Oxygen Delivery Method Oxygen Flow Rate 01/19/23 17:05 01/19/23 17:09 01/19/23 17:09 Temperature Pulse Rate 68 69 Respiratory Rate 23 25 H Blood Pressure 120/57 L Pulse Oximetry 98 96 Oxygen Delivery Method Oxygen Flow Rate 01/19/23 17:10 01/19/23 17:15 01/19/23 17:20 Temperature Pulse Rate 69 66 67 Respiratory Rate 24 23 Blood Pressure Pulse Oximetry 97 98 98 Oxygen Delivery Method Oxygen Flow Rate 01/19/23 17:25 01/19/23 17:30 01/19/23 17:35 Temperature Pulse Rate 68 67 72 Respiratory Rate 30 H 24 Blood Pressure 97/58 L Pulse Oximetry 97 97 98 Oxygen Delivery Method Oxygen Flow Rate 01/19/23 17:40 01/19/23 17:45 01/19/23 17:50 Temperature Pulse Rate 66 66 68 Respiratory Rate 24 21 23 Blood Pressure Pulse Oximetry 97 98 98 Oxygen Delivery Method Nasal Cannula Oxygen Flow Rate 2 01/19/23 17:53 01/19/23 17:53 01/19/23 17:55 Temperature Pulse Rate 68 66 Respiratory Rate 24 27 H Blood Pressure 122/59 L Pulse Oximetry 97 97 Oxygen Delivery Method Oxygen Flow Rate 01/19/23 18:00 01/19/23 18:05 01/19/23 18:10 Temperature Pulse Rate 68 68 69 Respiratory Rate 22 22 25 H Blood Pressure Pulse Oximetry 98 98 98 Oxygen Delivery Method Oxygen Flow Rate 01/19/23 18:15 01/19/23 18:20 01/19/23 18:25 Temperature Pulse Rate 68 69 70 Respiratory Rate 23 24 23 Blood Pressure Pulse Oximetry 97 98 96 Oxygen Delivery Method Oxygen Flow Rate 01/19/23 18:30 01/19/23 18:35 01/19/23 18:40 Temperature Pulse Rate 70 69 69 Respiratory Rate 22 23 22 Blood Pressure Pulse Oximetry 98 99 98 Oxygen Delivery Method Oxygen Flow Rate 01/19/23 18:45 01/19/23 18:45 01/19/23 18:50 Temperature Pulse Rate 69 68 Respiratory Rate 22 22 Blood Pressure 135/63 115/67 Pulse Oximetry 98 98 Oxygen Delivery Method Oxygen Flow Rate Oxygen Delivery Method Nasal Cannula Oxygen Flow Rate 2 Narrative Exam Narrative: GEN: no acute distress, obese on O2 NC HEENT: moist mucous membranes, PERRL NECK: trachea midline, no JVD CV: regular rate and rhythm, no murmurs PULM: clear bilaterally ABD: soft, nontender, protuberant, no organomegaly EXT: warm and well perfused with no edema NEURO: awake, alert, oriented, no focal deficits Objective Labs 01/20/23 04:14 01/20/23 04:14 Labs: Laboratory Results - last 24 hr 01/19/23 01/19/23 13:15 15:58 WBC 8.7 RBC 3.30 L Hgb 10.9 L Hct 32.8 L MCV 99.5 MCH 33.1 MCHC 33.3 RDW 14.9 H Plt Count 259 Neut % (Auto) 79.7 H Lymph % (Auto) 12.5 L [place] % (Auto) 6.6 Eos % (Auto) 1.0 L Baso % (Auto) 0.2 Neut # (Auto) 7000 Lymph # (Auto) 1100 [place] # (Auto) 600 Eos # (Auto) 100 Baso # (Auto) 0 PT 13.6 H INR 1.2 Sodium 134 L Potassium 4.6 Chloride 91 L Carbon Dioxide 38 H BUN 55 H Creatinine 1.90 H Estimated GFR 30 L BUN/Creatinine Ratio 28.9 H Glucose 250 H Lactate 1.7 Calcium 10.1 Total Bilirubin 0.3 AST 19 ALT 13 Alkaline Phosphatase 78 Troponin I 0.025 Total Protein 6.8 Albumin 3.4 L Globulin 3.4 Albumin/Globulin Ratio 1.0 Procalcitonin 0.35 Urine Color Yellow Urine Appearance Cloudy Urine pH 6.5 Ur Specific [place] 1.010 Urine Protein Trace H Urine Glucose (UA) Trace H Urine Ketones Negative Urine Occult Blood 1+ H Urine Nitrate Negative Urine Bilirubin Negative Urine Urobilinogen 0.2 Ur Leukocyte Esterase 2+ H Urine RBC 1-5/hpf Urine WBC >100/hpf H Ur Squamous Epith Cells 0-1 /hpf Urine Bacteria Many (>30) H Ur Culture Indicated? Specimen cultured Micro UA Comment Assessment & Plan Assessment & Plan narrative: # undifferentiated shock -BP down to 88/54 in ED, unclear if sepsis vs cardiogenic -abx for now -BNP and echo ordered -Levophed started in ED, will continue for now -wean pressors as able -hydrocortisone 50 mg IV q.6 for stress dose steroids -appreciate tele ICU consult # possible pyelonephritis, POA and active. -CT abd with fat stranding, UA with pyuria -will use meropenem to cover for ESBL and pseudomonas # recent E coli bacteremia, present on admission and active. -e. coli bacteremia noted on blood culture, pansensitive and was on po levaquin -h/o of ESBL -abx as above # BLANCA on CKD -creatinine 1.9 and baseline 1.3 -s/p 2 L boluses in ED -monitor and renally dose meds # chronic hypoxic respiratory failure -on home 2L O2 # COPD -continue nebs prn # DM2, POA and stable -continue insulin and sliding scale # CKD 3, POA and stable. # HFrEF -last EF 30-35%, unclear if in cardiogenic shock as BNP only 2200 and previously 22k -repeat echo ordered # morbid obesity, POA. I spent a total of 35 minutes of critical care time on this patient's care today; this time is exclusive of procedural time. Code status is full code. DVT prophylaxis with heparin subcutaneous. Proxy is daughter Roxy. I have reviewed home meds and used all available resources to reconcile the home meds. Case discussed with ED physician/APC and patient will be admitted to the hospitalist service for further workup and management. This patient will be admitted as ICU and will require greater than 2 midnights of hospital time to treat shock.
[2023-01-19 19:13] LABS: TSH w/ Reflex to FT4 4.46 uIU/mL (0.47-4.68)
--- NOTE | 2023-01-19 19:30 | PC.NURSE ---
19:30 Patient transferred upstairs in [facility] with Herlinda ONEILL. Levophed currently running at 11.288mls/hr.
[2023-01-19] MEDS: ATORVASTATIN 20 MG TABLET 80 MG PO (20:26)
[2023-01-19] MEDS: SENNOSIDES 8.6 MG TABLET 17.2 MG PO (20:26)
[2023-01-19] MEDS: GABAPENTIN 300 MG CAPSULE PO (20:27)
[2023-01-19] MEDS: INSULIN GLARGINE 100 UNIT/ML 3ML PEN 15 UNIT SUBCUT (20:27)
[2023-01-19] MEDS: TRAZODONE 50 MG TABLET PO (20:27)
[2023-01-19] MEDS: buPROPion SR 150 MG TAB PO (20:27)
[2023-01-19] MEDS: INSULIN LISPRO 100 UNIT/ML 3ML VIAL SUBCUT (20:28)
--- NOTE | 2023-01-19 22:26 | PC.NURSE ---
Pt arrived to unit ~1944. Pt A&OX4, on 2L NC. Pt on Levo drip. Vital signs stable. Clinical Trials Specialist consulted, no new orders given. Pt bed placed in lowest position. Call light within reach. Pt currently resting in bed.
[2023-01-19 23:03] LABS: MRSA (Nasal) PCR Not Detected (Not Detect)
[2023-01-20] VITALS (77 sets, daily range): BP systolic 78–136; BP diastolic 44–79; PULSE 51–81; RESP 21–34; TEMP 36.3–36.5; O2SAT 89–100
[2023-01-20] MEDS: HEPARIN 5,000 UNIT/ML VIAL 7500 UNIT SUBCUT ×3 (00:16→17:23)
[2023-01-20] MEDS: HYDROCORTISONE 100 MG/2 ML VIAL 50 MG IV ×5 (00:17→23:26)
[2023-01-20] MEDS: MEROPENEM 2 GM in SODIUM CHLORIDE 0.9% 100 ML IV ×2 (04:16→17:10)
[2023-01-20 04:49] LABS: Add Manual Diff / Slide Review NO; Basophils Absolute Auto 0 /uL (0-100); Basophils Percent Auto 0.2 % (0-2); Eosinophils Absolute Auto 0 /uL (0-450); Eosinophils Percent Auto 0.4 % (2-4); Hematocrit 35.3 % (36-46); Hemoglobin 11.7 g/dL (12.0-16.0); Lymphocytes Absolute Auto 1100 /uL (1100-4500); Lymphocytes Percent Auto 9.7 % (25-40); Mean Corpuscular Hemoglobin 32.9 PG (26-34); Mean Corpuscular Volume 99.6 fL (80-100); Monocytes Absolute Auto 400 /uL (0-900); Monocytes Percent Auto 3.9 % (3-14); Neutrophils Absolute Auto 9600 /uL (1500-7000); Neutrophils Percent Auto 85.8 % (50-75); Platelet Count 260 X10^3/uL (150-400); Red Blood Cell Count 3.54 X10^6/uL (4.0-5.2); White Blood Cell Count 11.2 X10^3/uL (4.5-11.0)
[2023-01-20 04:51] LABS: BUN Creatinine Ratio 23.7 (6-22); Blood Urea Nitrogen 44 mg/dL (7-17); Calcium 9.9 mg/dL (8.4-10.2); Carbon Dioxide 33 mmol/L (22-32); Chloride 96 mmol/L (98-107); Estimated Glomerular Filt Rate 30 mL/min (>60); Glucose 351 mg/dL (80-110); HEMOLYSIS < 15 (0-50); Potassium 4.7 mmol/L (3.4-5.1); Sodium 137 mmol/L (137-145)
[2023-01-20 05:07] LABS: Procalcitonin 0.26 ng/mL (<0.5)
[2023-01-20] MEDS: LEVOTHYROXINE 100 MCG TABLET PO (06:50)
[2023-01-20] MEDS: LEVOTHYROXINE 75 MCG TABLET PO (06:50)
--- NOTE | 2023-01-20 08:27 | CM.DANOTE ---
Initial DCP Assessment Note Pt is a 62 yo female, resident at [facility], presents with weakness and shock, admitted for medical work up and management. PCP: Simone Rodgers Payer: [employer] Reviewed chart, patient recently admitted for treatment of pyelo which led to e coli bacteremia. Patient had discharged back to [facility] w/[employer] WRIGHT auth in place. Patient is wheelchair and mostly bed bound at her baseline, is typically able to stand, pivot transfer into her wheelchair vs bogdan into wheelchair. Patient requires assist w/most ADLs, performs upper body dressing when able and feeds self. Patient does not ambulate. CM team will plan to follow clinical course closely. Plan: Discharge back to [facility] is anticipated, no need for PASRR, likely via facility van. GA Vasquez Discharge Planning/Care Management CM Discharge Assessment Start: 01/20/23 08:22 Freq: Status: Active Protocol: Document 01/20/23 08:22 NEO (Rec: 01/20/23 08:27 NEO [id number]) Discharge Planning Assessment Assigned Freight Claim Investigator GA Rosa DPOA/Assigned Designee Name Roxy Berry, daughter Contact Information [phone] Advance Directives? No History Provided By Medical Record Has Patient been admitted in last 30 Yes days? Comment Patient here 01.05.23-01.10.23 , treated for pyelonephritis- e coli bacteremia and discharged back to [facility]. Prior Living Arrangements Skilled Nurse Facility Household Members other Type of transporation used prior to Relies on Others admit Facility Name Admitted From: [facility] Independent with ADL's No Is patient alert and oriented? Yes Needs Assistance With Bathing,Grooming,Meal Prep, Toileting,Managing Medications ,Home Chores / Shopping Comment Patient able to feed self and complete upper body dressing. Patient/Family Preference Alf Facility Comment Will return to [facility]. Likely facility will attempt auth through [facility] Discharge [facility] Alf Facility Transportation Arrangement Facility Referrals Initiated None needed
[2023-01-20] MEDS: FENOFIBRATE, MICRONIZED 67 MG CAPSULE 201 MG PO (09:01)
[2023-01-20] MEDS: MAGNESIUM OXIDE 400 MG TABLET 200 MG PO (09:01)
[2023-01-20] MEDS: MONTELUKAST 10 MG TABLET PO (09:02)
[2023-01-20] MEDS: ASPIRIN EC 81 MG TABLET PO (09:02)
[2023-01-20] MEDS: FLUoxetine 20 MG CAPSULE PO (09:03)
[2023-01-20] MEDS: LORATADINE 10 MG TABLET PO (09:03)
[2023-01-20] MEDS: INSULIN LISPRO 100 UNIT/ML 3ML VIAL SUBCUT ×4 (09:04→20:23)
[2023-01-20] MEDS: INSULIN GLARGINE 100 UNIT/ML 3ML PEN 15 UNIT SUBCUT (09:08)
--- NOTE | 2023-01-20 09:41 | P.PN_ITS ---
Subjective Subjective Interval history: Patient still on very little levophed to maintain MAP. She notes increased urinary urgency and frequency. Urine culture with >100k GNB. Echo with worsened EF of 20-25%. TeleICU started midodrine TID. Exam Vital Signs (past 8 hours): - 01/20/23 02:00 01/20/23 02:01 01/20/23 02:01 Pulse Rate 65 67 Respiratory Rate 34 H 34 H Blood Pressure 115/57 L Pulse Oximetry 94 93 Oxygen Delivery Method Oxygen Flow Rate 4 01/20/23 03:00 01/20/23 03:01 01/20/23 03:01 Pulse Rate 70 72 Respiratory Rate 28 H 28 H Blood Pressure 116/58 L Pulse Oximetry 89 L 91 Oxygen Delivery Method Oxygen Flow Rate 01/20/23 03:16 01/20/23 03:16 01/20/23 03:52 Pulse Rate 75 Respiratory Rate 31 H Blood Pressure 99/50 L 124/63 Pulse Oximetry 91 Oxygen Delivery Method Oxygen Flow Rate 4 01/20/23 03:52 01/20/23 04:00 01/20/23 04:00 Pulse Rate 69 66 Respiratory Rate 26 H 28 H Blood Pressure Pulse Oximetry 95 95 Oxygen Delivery Method Nasal Cannula CPAP Oxygen Flow Rate 01/20/23 04:01 01/20/23 04:01 01/20/23 05:00 Pulse Rate 68 70 Respiratory Rate 30 H 31 H Blood Pressure 118/54 L Pulse Oximetry 94 96 Oxygen Delivery Method Oxygen Flow Rate 0 01/20/23 05:01 01/20/23 05:01 01/20/23 06:00 Pulse Rate 69 66 Respiratory Rate 21 31 H Blood Pressure 119/58 L Pulse Oximetry 95 96 Oxygen Delivery Method Oxygen Flow Rate 01/20/23 06:06 01/20/23 06:06 01/20/23 06:30 Pulse Rate 67 69 Respiratory Rate 27 H 25 H Blood Pressure 136/59 L Pulse Oximetry 97 95 Oxygen Delivery Method Oxygen Flow Rate 4 01/20/23 07:00 01/20/23 07:36 01/20/23 07:36 Pulse Rate 68 51 L Respiratory Rate 24 Blood Pressure 128/58 L Pulse Oximetry 94 95 Oxygen Delivery Method Oxygen Flow Rate 01/20/23 07:56 01/20/23 07:56 01/20/23 08:00 Pulse Rate 67 63 Respiratory Rate 22 22 Blood Pressure 104/49 L Pulse Oximetry 93 94 Oxygen Delivery Method Oxygen Flow Rate 01/20/23 08:01 01/20/23 08:01 01/20/23 08:31 Pulse Rate 65 64 Respiratory Rate 23 26 H Blood Pressure 91/57 L Pulse Oximetry 93 92 Oxygen Delivery Method Oxygen Flow Rate 01/20/23 08:31 01/20/23 08:45 01/20/23 08:45 Pulse Rate 81 Respiratory Rate 28 H Blood Pressure 95/53 L 95/50 L Pulse Oximetry 90 L Oxygen Delivery Method Oxygen Flow Rate 01/20/23 09:00 01/20/23 09:01 01/20/23 09:01 Pulse Rate 76 76 Respiratory Rate 25 H 24 Blood Pressure 103/44 L Pulse Oximetry 90 L 93 Oxygen Delivery Method Oxygen Flow Rate 01/20/23 09:16 01/20/23 09:16 01/20/23 09:30 Pulse Rate 75 Respiratory Rate 25 H Blood Pressure 94/49 L 80/44 L Pulse Oximetry 93 Oxygen Delivery Method Oxygen Flow Rate 01/20/23 09:30 01/20/23 09:33 01/20/23 09:33 Pulse Rate 70 70 Respiratory Rate 22 23 Blood Pressure 83/50 L Pulse Oximetry 93 93 Oxygen Delivery Method Oxygen Flow Rate Oxygen Delivery Method Nasal Cannula,CPAP Oxygen Flow Rate 4 Narrative Exam Narrative: GEN: no acute distress, obese on O2 NC HEENT: moist mucous membranes, PERRL NECK: trachea midline, no JVD CV: regular rate and rhythm, no murmurs PULM: clear bilaterally ABD: soft, nontender, protuberant, no organomegaly EXT: warm and well perfused with no edema NEURO: awake, alert, oriented, no focal deficits Objective Labs 01/20/23 04:14 01/20/23 04:14 Labs: Laboratory Results - last 24 hr 01/19/23 01/19/23 01/19/23 13:15 15:58 21:09 WBC 8.7 RBC 3.30 L Hgb 10.9 L Hct 32.8 L MCV 99.5 MCH 33.1 MCHC 33.3 RDW 14.9 H Plt Count 259 Neut % (Auto) 79.7 H Lymph % (Auto) 12.5 L [place] % (Auto) 6.6 Eos % (Auto) 1.0 L Baso % (Auto) 0.2 Neut # (Auto) 7000 Lymph # (Auto) 1100 [place] # (Auto) 600 Eos # (Auto) 100 Baso # (Auto) 0 PT 13.6 H INR 1.2 Sodium 134 L Potassium 4.6 Chloride 91 L Carbon Dioxide 38 H BUN 55 H Creatinine 1.90 H Estimated GFR 30 L BUN/Creatinine Ratio 28.9 H Glucose 250 H Lactate 1.7 Calcium 10.1 Total Bilirubin 0.3 AST 19 ALT 13 Alkaline Phosphatase 78 Troponin I 0.025 NT-Pro-B Natriuret Pep 2470 H Total Protein 6.8 Albumin 3.4 L Globulin 3.4 Albumin/Globulin Ratio 1.0 Procalcitonin 0.35 TSH 4.46 Urine Color Yellow Urine Appearance Cloudy Urine pH 6.5 Ur Specific [place] 1.010 Urine Protein Trace H Urine Glucose (UA) Trace H Urine Ketones Negative Urine Occult Blood 1+ H Urine Nitrate Negative Urine Bilirubin Negative Urine Urobilinogen 0.2 Ur Leukocyte Esterase 2+ H Urine RBC 1-5/hpf Urine WBC >100/hpf H Ur Squamous Epith Cells 0-1 /hpf Urine Bacteria Many (>30) H Ur Culture Indicated? Specimen cultured Micro UA Comment Nasal Screen MRSA (PCR) Not detected 01/20/23 04:14 WBC 11.2 H RBC 3.54 L Hgb 11.7 L Hct 35.3 L MCV 99.6 MCH 32.9 MCHC 33.0 RDW 15.0 H Plt Count 260 Neut % (Auto) 85.8 H Lymph % (Auto) 9.7 L [place] % (Auto) 3.9 Eos % (Auto) 0.4 L Baso % (Auto) 0.2 Neut # (Auto) 9600 H Lymph # (Auto) 1100 [place] # (Auto) 400 Eos # (Auto) 0 Baso # (Auto) 0 PT INR Sodium 137 Potassium 4.7 Chloride 96 L Carbon Dioxide 33 H BUN 44 H Creatinine 1.86 H Estimated GFR 30 L BUN/Creatinine Ratio 23.7 H Glucose 351 H D Lactate Calcium 9.9 Total Bilirubin AST ALT Alkaline Phosphatase Troponin I NT-Pro-B Natriuret Pep Total Protein Albumin Globulin Albumin/Globulin Ratio Procalcitonin 0.26 TSH Urine Color Urine Appearance Urine pH Ur Specific [place] Urine Protein Urine Glucose (UA) Urine Ketones Urine Occult Blood Urine Nitrate Urine Bilirubin Urine Urobilinogen Ur Leukocyte Esterase Urine RBC Urine WBC Ur Squamous Epith Cells Urine Bacteria Ur Culture Indicated? Micro UA Comment Nasal Screen MRSA (PCR) PFSH Medical History PONCE (obstructive sleep apnea) Chronic hypoxemic respiratory failure COPD (chronic obstructive pulmonary disease) DM2 (diabetes mellitus, type 2) HTN (hypertension) Thyroiditis Systolic and diastolic CHF, chronic Obesity Surgical History S/P hernia surgery Family History Mother No pertinent past medical history Father No pertinent past medical history Social History household members: other Smoking Status: Former smoker alcohol intake: former Assessment & Plan Assessment & Plan narrative: # undifferentiated shock -BP down to 88/54 in ED, unclear if sepsis vs cardiogenic -abx for now -BNP and echo ordered -Levophed started in ED, will continue for now -wean pressors as able -hydrocortisone 50 mg IV q.6 for stress dose steroids -midodrine 10mg TID ordered -appreciate tele ICU consult # worsened HFrEF -last EF 30-35%, unclear if in cardiogenic shock as BNP only 2200 and previously 22k -repeat echo with worsneed EF of 20-25% -will need cardiology f/up # possible pyelonephritis, POA and active. -CT abd with fat stranding, UA with pyuria -will use meropenem to cover for ESBL and pseudomonas -urine culture with >100k GNB # recent E coli bacteremia, present on admission and active. -e. coli bacteremia noted on blood culture, pansensitive and was on po levaquin -h/o of ESBL -abx as above # BLANCA on CKD, improving -creatinine 1.9 and baseline 1.3 -s/p 2 L boluses in ED -monitor and renally dose meds # chronic hypoxic respiratory failure -on home 2L O2 # COPD -continue nebs prn # DM2, POA and stable -continue insulin and sliding scale # CKD 3, POA and stable. # morbid obesity, POA. I spent a total of 35 minutes of critical care time on this patient's care today; this time is exclusive of procedural time. Code status is full code. DVT prophylaxis with heparin subcutaneous. Proxy is daughter Roxy. I have reviewed home meds and used all available resources to reconcile the home meds. Dispo: ICU
[2023-01-20] MEDS: MIDODRINE HCL 5 MG TABLET 10 MG PO ×2 (11:20→18:08)
--- NOTE | 2023-01-20 13:00 | PM.PN.EICU ---
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 Interval history: pt remains on low dose levophed, midodrine was added today Current Medications Current Medications Medications: Home Medications acetaminophen 325 mg tablet (Tylenol) 650 mg PO TID 05/25/22 [History Confirmed 01/20/23] aspirin 81 mg tablet,delayed release 81 mg PO DAILY 05/25/22 [History Confirmed 01/20/23] budesonide-formoterol HFA 160 mcg-4.5 mcg/actuation aerosol inhaler 2 puff inhalation Q4H PRN Wheezing 05/25/22 [History Confirmed 01/20/23] bupropion HCl 150 mg tablet,12 hr sustained-release 150 mg PO BEDTIME 05/25/22 [History Confirmed 01/20/23] carvedilol 3.125 mg tablet 3.125 mg PO BID 05/25/22 [History Confirmed 01/20/23] cyanocobalamin (vitamin B-12) 500 mcg tablet 500 mcg PO DAILY 05/25/22 [History Confirmed 01/20/23] fenofibrate 160 mg tablet 160 mg PO DAILY 05/25/22 [History Confirmed 01/20/23] ferrous sulfate 325 mg (65 mg iron) tablet 325 mg PO DAILY 05/25/22 [History Confirmed 01/20/23] fluoxetine 20 mg tablet 20 mg PO DAILY 05/25/22 [History Confirmed 01/20/23] fluticasone propionate 50 mcg/actuation nasal spray,suspension 2 spray intranasal DAILY 05/25/22 [History Confirmed 01/20/23] gabapentin 300 mg capsule 300 mg PO BEDTIME 05/25/22 [History Confirmed 01/20/23] insulin glargine 100 unit/mL (3 mL) subcutaneous pen 22 unit SUBCUT BID 05/25/22 [History Confirmed 01/20/23] insulin lispro 100 unit/mL subcutaneous solution (Humalog U-100 Insulin) 3 unit SUBCUT TIDWM 05/25/22 [History Confirmed 01/20/23] lidocaine 5 % topical patch 1 patch topical DAILY 05/25/22 [History Confirmed 01/20/23] loratadine 10 mg tablet 10 mg PO DAILY 05/25/22 [History Confirmed 01/20/23] magnesium oxide 200 mg PO DAILY 05/25/22 [History Confirmed 01/20/23] meclizine 25 mg tablet 25 mg PO Q8HR PRN Dizziness 05/25/22 [History Confirmed 01/20/23] montelukast 10 mg tablet 10 mg PO DAILY 05/25/22 [History Confirmed 01/20/23] nystatin 100,000 unit/gram topical powder 1 applic topical BID PRN Rash 05/25/22 [History Confirmed 01/20/23] ondansetron 4 mg disintegrating tablet 4 mg PO Q8H PRN Nausea 05/25/22 [History Confirmed 01/20/23] rosuvastatin 40 mg tablet 40 mg PO DAILY 05/25/22 [History Confirmed 01/20/23] sennosides 8.6 mg tablet (senna) 17.2 mg PO BEDTIME 05/25/22 [History Confirmed 01/20/23] tiotropium bromide 18 mcg capsule with inhalation device (Spiriva with HandiHaler) 1 cap inhalation DAILY 05/25/22 [History Confirmed 01/20/23] trazodone 50 mg tablet 50 mg PO BEDTIME 05/25/22 [History Confirmed 01/20/23] albuterol sulfate 90 mcg/actuation aerosol inhaler 4 puff inhalation Q4H PRN Shortness Of Breath Or Wheezing 08/15/22 [History Confirmed 01/20/23] levothyroxine 175 mcg tablet 175 mcg PO DAILY 08/15/22 [History Confirmed 01/20/23] potassium chloride 10 mEq tablet,extended release 10 meq PO DAILY 08/15/22 [History Confirmed 01/20/23] torsemide 10 mg tablet 10 mg PO DAILY 08/15/22 [History Confirmed 01/20/23] levofloxacin 750 mg tablet 750 mg PO DAILY #9 tabs 01/10/23 [Rx Confirmed 01/20/23] Visit Medications (administered) Generic Name Dose Route Start Last Admin Trade Name Freq PRN Reason Stop Dose Admin Aspirin 81 mg 01/20/23 09:00 01/20/23 09:02 Aspirin Ec 81 Mg Tablet PO 81 mg DAILY JAY JAY Administration Atorvastatin Calcium 80 mg 01/19/23 21:00 01/19/23 20:26 Atorvastatin 20 Mg Tablet PO 80 mg BEDTIME JAY JAY Administration Bupropion HCl 150 mg 01/19/23 21:00 01/19/23 20:27 Bupropion Sr 150 Mg Tab PO 150 mg BEDTIME JAY JAY Administration Fenofibrate 201 mg 01/20/23 09:00 01/20/23 09:01 Fenofibrate, Micronized 67 Mg Capsule PO 201 mg DAILY JAY JAY Administration Fluoxetine HCl 20 mg 01/20/23 09:00 01/20/23 09:03 Fluoxetine 20 Mg Capsule PO 20 mg DAILY JAY JAY Administration Gabapentin 300 mg 01/19/23 21:00 01/19/23 20:27 Gabapentin 300 Mg Capsule PO 300 mg BEDTIME JAY JAY Administration Heparin Sodium (Porcine) 7,500 unit 01/19/23 17:15 01/20/23 09:03 Heparin 5,000 Unit/Ml Vial SUBCUT 7,500 unit Q8H JAY JAY Administration Hydrocortisone 50 mg 01/20/23 00:00 01/20/23 11:20 Hydrocortisone 100 Mg/2 Ml Vial IV 50 mg Q6HR JAY JAY Administration NOREPINEPHRINE BITARTRATE/D5W 4 mg in 250 mls @ 45.15 mls/hr 01/19/23 16:15 01/20/23 12:02 Levophed IV 0.02 mcg/kg/min TITRATE JAY JAY 9.03 mls/hr Titration Protocol 0.1 MCG/KG/MIN Meropenem 2 gm/ Sodium 100 mls @ 200 mls/hr 01/19/23 17:00 01/20/23 05:12 Chloride IV Infused Q12H JAY JAY Infusion Insulin Human Lispro 0 unit 01/20/23 12:45 01/20/23 12:42 Insulin Lispro 100 Unit/Ml 3ml Vial SUBCUT 12 unit ACHS JAY JAY Administration Protocol Levothyroxine Sodium 75 mcg 01/20/23 06:00 01/20/23 06:50 Levothyroxine 75 Mcg Tablet PO 75 mcg 0600 JA YJAY Administration Levothyroxine Sodium 100 mcg 01/20/23 06:00 01/20/23 06:50 Levothyroxine 100 Mcg Tablet PO 100 mcg 0600 JAY JAY Administration Lidocaine 1 each 01/20/23 09:00 01/20/23 09:18 Lidocaine Patch 1 Each Adh..Patch TOP Not Given DAILY JAY JAY Loratadine 10 mg 01/20/23 09:00 01/20/23 09:03 Loratadine 10 Mg Tablet PO 10 mg DAILY JAY JAY Administration Magnesium Oxide 200 mg 01/20/23 09:00 01/20/23 09:01 Magnesium Oxide 400 Mg Tablet PO 200 mg DAILY JAY JAY Administration Midodrine 10 mg 01/20/23 12:00 01/20/23 11:20 Midodrine Hcl 5 Mg Tablet PO 10 mg 0600,1200,1800 JAY JAY Administration Montelukast Sodium 10 mg 01/20/23 09:00 01/20/23 09:02 Montelukast 10 Mg Tablet PO 10 mg DAILY JAY JAY Administration Sennosides 17.2 mg 01/19/23 21:00 01/19/23 20:26 Sennosides 8.6 Mg Tablet PO 17.2 mg BEDTIME JAY JAY Administration Trazodone HCl 50 mg 01/19/23 21:00 01/19/23 20:27 Trazodone 50 Mg Tablet PO 50 mg BEDTIME JAY JAY Administration Objective Labs 01/20/23 04:14 01/20/23 04:14 Labs: Laboratory Results - last 24 hr 01/19/23 01/19/23 01/19/23 13:15 15:58 21:09 WBC 8.7 RBC 3.30 L Hgb 10.9 L Hct 32.8 L MCV 99.5 MCH 33.1 MCHC 33.3 RDW 14.9 H Plt Count 259 Neut % (Auto) 79.7 H Lymph % (Auto) 12.5 L [place] % (Auto) 6.6 Eos % (Auto) 1.0 L Baso % (Auto) 0.2 Neut # (Auto) 7000 Lymph # (Auto) 1100 [place] # (Auto) 600 Eos # (Auto) 100 Baso # (Auto) 0 PT 13.6 H INR 1.2 Sodium 134 L Potassium 4.6 Chloride 91 L Carbon Dioxide 38 H BUN 55 H Creatinine 1.90 H Estimated GFR 30 L BUN/Creatinine Ratio 28.9 H Glucose 250 H Lactate 1.7 Calcium 10.1 Total Bilirubin 0.3 AST 19 ALT 13 Alkaline Phosphatase 78 Troponin I 0.025 NT-Pro-B Natriuret Pep 2470 H Total Protein 6.8 Albumin 3.4 L Globulin 3.4 Albumin/Globulin Ratio 1.0 Procalcitonin 0.35 TSH 4.46 Urine Color Yellow Urine Appearance Cloudy Urine pH 6.5 Ur Specific [place] 1.010 Urine Protein Trace H Urine Glucose (UA) Trace H Urine Ketones Negative Urine Occult Blood 1+ H Urine Nitrate Negative Urine Bilirubin Negative Urine Urobilinogen 0.2 Ur Leukocyte Esterase 2+ H Urine RBC 1-5/hpf Urine WBC >100/hpf H Ur Squamous Epith Cells 0-1 /hpf Urine Bacteria Many (>30) H Ur Culture Indicated? Specimen cultured Micro UA Comment Nasal Screen MRSA (PCR) Not detected 01/20/23 04:14 WBC 11.2 H RBC 3.54 L Hgb 11.7 L Hct 35.3 L MCV 99.6 MCH 32.9 MCHC 33.0 RDW 15.0 H Plt Count 260 Neut % (Auto) 85.8 H Lymph % (Auto) 9.7 L [place] % (Auto) 3.9 Eos % (Auto) 0.4 L Baso % (Auto) 0.2 Neut # (Auto) 9600 H Lymph # (Auto) 1100 [place] # (Auto) 400 Eos # (Auto) 0 Baso # (Auto) 0 PT INR Sodium 137 Potassium 4.7 Chloride 96 L Carbon Dioxide 33 H BUN 44 H Creatinine 1.86 H Estimated GFR 30 L BUN/Creatinine Ratio 23.7 H Glucose 351 H D Lactate Calcium 9.9 Total Bilirubin AST ALT Alkaline Phosphatase Troponin I NT-Pro-B Natriuret Pep Total Protein Albumin Globulin Albumin/Globulin Ratio Procalcitonin 0.26 TSH Urine Color Urine Appearance Urine pH Ur Specific [place] Urine Protein Urine Glucose (UA) Urine Ketones Urine Occult Blood Urine Nitrate Urine Bilirubin Urine Urobilinogen Ur Leukocyte Esterase Urine RBC Urine WBC Ur Squamous Epith Cells Urine Bacteria Ur Culture Indicated? Micro UA Comment Nasal Screen MRSA (PCR) Exam Vital Signs (past 8 hours): - 01/20/23 05:01 01/20/23 05:01 01/20/23 06:00 Temperature Pulse Rate 69 66 Respiratory Rate 21 31 H Blood Pressure 119/58 L Pulse Oximetry 95 96 Oxygen Delivery Method Oxygen Flow Rate 01/20/23 06:06 01/20/23 06:06 01/20/23 06:30 Temperature Pulse Rate 67 69 Respiratory Rate 27 H 25 H Blood Pressure 136/59 L Pulse Oximetry 97 95 Oxygen Delivery Method Oxygen Flow Rate 4 01/20/23 07:00 01/20/23 07:36 01/20/23 07:36 Temperature Pulse Rate 68 51 L Respiratory Rate 24 Blood Pressure 128/58 L Pulse Oximetry 94 95 Oxygen Delivery Method Oxygen Flow Rate 01/20/23 07:56 01/20/23 07:56 01/20/23 08:00 Temperature Pulse Rate 67 63 Respiratory Rate 22 22 Blood Pressure 104/49 L Pulse Oximetry 93 94 Oxygen Delivery Method Oxygen Flow Rate 01/20/23 08:01 01/20/23 08:01 01/20/23 08:31 Temperature Pulse Rate 65 64 Respiratory Rate 23 26 H Blood Pressure 91/57 L Pulse Oximetry 93 92 Oxygen Delivery Method Oxygen Flow Rate 01/20/23 08:31 01/20/23 08:45 01/20/23 08:45 Temperature Pulse Rate 81 Respiratory Rate 28 H Blood Pressure 95/53 L 95/50 L Pulse Oximetry 90 L Oxygen Delivery Method Oxygen Flow Rate 01/20/23 09:00 01/20/23 09:00 01/20/23 09:01 Temperature Pulse Rate 76 Respiratory Rate 25 H Blood Pressure 103/44 L Pulse Oximetry 90 L Oxygen Delivery Method Nasal Cannula Oxygen Flow Rate 01/20/23 09:01 01/20/23 09:16 01/20/23 09:16 Temperature Pulse Rate 76 75 Respiratory Rate 24 25 H Blood Pressure 94/49 L Pulse Oximetry 93 93 Oxygen Delivery Method Oxygen Flow Rate 01/20/23 09:30 01/20/23 09:30 01/20/23 09:33 Temperature Pulse Rate 70 Respiratory Rate 22 Blood Pressure 80/44 L 83/50 L Pulse Oximetry 93 Oxygen Delivery Method Oxygen Flow Rate 01/20/23 09:33 01/20/23 09:45 01/20/23 09:45 Temperature Pulse Rate 70 68 Respiratory Rate 23 29 H Blood Pressure 87/56 L Pulse Oximetry 93 96 Oxygen Delivery Method Oxygen Flow Rate 01/20/23 10:00 01/20/23 10:01 01/20/23 10:01 Temperature Pulse Rate 66 67 Respiratory Rate 25 H 24 Blood Pressure 109/72 Pulse Oximetry 97 96 Oxygen Delivery Method Oxygen Flow Rate 01/20/23 10:16 01/20/23 10:16 01/20/23 10:30 Temperature Pulse Rate 65 Respiratory Rate 29 H Blood Pressure 118/63 120/68 Pulse Oximetry 96 Oxygen Delivery Method Oxygen Flow Rate 01/20/23 10:30 01/20/23 10:46 01/20/23 10:46 Temperature Pulse Rate 65 70 Respiratory Rate 28 H 29 H Blood Pressure 92/54 L Pulse Oximetry 98 94 Oxygen Delivery Method Oxygen Flow Rate 01/20/23 11:00 01/20/23 11:00 01/20/23 11:15 Temperature Pulse Rate 72 Respiratory Rate 27 H Blood Pressure 96/55 L 89/53 L Pulse Oximetry 92 Oxygen Delivery Method Oxygen Flow Rate 01/20/23 11:15 01/20/23 11:30 01/20/23 11:31 Temperature Pulse Rate 68 71 Respiratory Rate 25 H 25 H Blood Pressure 88/69 L Pulse Oximetry 96 91 Oxygen Delivery Method Oxygen Flow Rate 01/20/23 11:31 01/20/23 11:46 01/20/23 11:46 Temperature 97.7 F Pulse Rate 74 68 Respiratory Rate 24 24 Blood Pressure 81/46 L Pulse Oximetry 92 95 Oxygen Delivery Method Oxygen Flow Rate 01/20/23 11:51 01/20/23 11:51 01/20/23 11:58 Temperature Pulse Rate 68 Respiratory Rate 22 Blood Pressure 84/53 L 84/52 L Pulse Oximetry 95 Oxygen Delivery Method Oxygen Flow Rate 01/20/23 11:58 01/20/23 12:00 01/20/23 12:00 Temperature Pulse Rate 68 68 Respiratory Rate 25 H 24 Blood Pressure 78/50 L Pulse Oximetry 93 93 Oxygen Delivery Method Oxygen Flow Rate Oxygen Delivery Method Nasal Cannula Oxygen Flow Rate 4 Narrative Exam Narrative: awake, cnversational Resp Other: symmetric chest rise Assessment & Plan Assessment & Plan narrative: NEURO: # Decondition -- PT/OT and OOB as tolerated RESP: # Chronic hypoxemia respiratory failure -- Encourage IS -- Strict I/O -- Seek early mobility -- Goal SpO2 > 88% CVS: # Shock -- Concern for distributive. Other ddx include cardiogenic. -- On low dose levophed -- f/u TTE -- added midodrine -- PICC [place] : # BLANCA -- Maintain MAP goal > 65 -- trend bmp -- monitor UO ID: # Septic shock -- f/u cx -- cont merrem -- map goal >65 ENDO: # Hypothyroidism -- On synthroid CCT 35 min Time Spent With Patient Time with patient: 30 to 49 minutes with 50% spent counseling/coordinating care
--- NOTE | 2023-01-20 13:18 | P.TELICUPN_ITS ---
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 care: Yes Patient Location: ICU Interval history: pt remains intubated and sedated Current Medications Current Medications Medications: Home Medications acetaminophen 325 mg tablet (Tylenol) 650 mg PO TID 05/25/22 [History Confirmed 01/20/23] aspirin 81 mg tablet,delayed release 81 mg PO DAILY 05/25/22 [History Confirmed 01/20/23] budesonide-formoterol HFA 160 mcg-4.5 mcg/actuation aerosol inhaler 2 puff inhalation Q4H PRN Wheezing 05/25/22 [History Confirmed 01/20/23] bupropion HCl 150 mg tablet,12 hr sustained-release 150 mg PO BEDTIME 05/25/22 [History Confirmed 01/20/23] carvedilol 3.125 mg tablet 3.125 mg PO BID 05/25/22 [History Confirmed 01/20/23] cyanocobalamin (vitamin B-12) 500 mcg tablet 500 mcg PO DAILY 05/25/22 [History Confirmed 01/20/23] fenofibrate 160 mg tablet 160 mg PO DAILY 05/25/22 [History Confirmed 01/20/23] ferrous sulfate 325 mg (65 mg iron) tablet 325 mg PO DAILY 05/25/22 [History Confirmed 01/20/23] fluoxetine 20 mg tablet 20 mg PO DAILY 05/25/22 [History Confirmed 01/20/23] fluticasone propionate 50 mcg/actuation nasal spray,suspension 2 spray intranasal DAILY 05/25/22 [History Confirmed 01/20/23] gabapentin 300 mg capsule 300 mg PO BEDTIME 05/25/22 [History Confirmed 01/20/23] insulin glargine 100 unit/mL (3 mL) subcutaneous pen 22 unit SUBCUT BID 05/25/22 [History Confirmed 01/20/23] insulin lispro 100 unit/mL subcutaneous solution (Humalog U-100 Insulin) 3 unit SUBCUT TIDWM 05/25/22 [History Confirmed 01/20/23] lidocaine 5 % topical patch 1 patch topical DAILY 05/25/22 [History Confirmed 01/20/23] loratadine 10 mg tablet 10 mg PO DAILY 05/25/22 [History Confirmed 01/20/23] magnesium oxide 200 mg PO DAILY 05/25/22 [History Confirmed 01/20/23] meclizine 25 mg tablet 25 mg PO Q8HR PRN Dizziness 05/25/22 [History Confirmed 01/20/23] montelukast 10 mg tablet 10 mg PO DAILY 05/25/22 [History Confirmed 01/20/23] nystatin 100,000 unit/gram topical powder 1 applic topical BID PRN Rash 05/25/22 [History Confirmed 01/20/23] ondansetron 4 mg disintegrating tablet 4 mg PO Q8H PRN Nausea 05/25/22 [History Confirmed 01/20/23] rosuvastatin 40 mg tablet 40 mg PO DAILY 05/25/22 [History Confirmed 01/20/23] sennosides 8.6 mg tablet (senna) 17.2 mg PO BEDTIME 05/25/22 [History Confirmed 01/20/23] tiotropium bromide 18 mcg capsule with inhalation device (Spiriva with HandiHaler) 1 cap inhalation DAILY 05/25/22 [History Confirmed 01/20/23] trazodone 50 mg tablet 50 mg PO BEDTIME 05/25/22 [History Confirmed 01/20/23] albuterol sulfate 90 mcg/actuation aerosol inhaler 4 puff inhalation Q4H PRN Shortness Of Breath Or Wheezing 08/15/22 [History Confirmed 01/20/23] levothyroxine 175 mcg tablet 175 mcg PO DAILY 08/15/22 [History Confirmed 01/20/23] potassium chloride 10 mEq tablet,extended release 10 meq PO DAILY 08/15/22 [History Confirmed 01/20/23] torsemide 10 mg tablet 10 mg PO DAILY 08/15/22 [History Confirmed 01/20/23] levofloxacin 750 mg tablet 750 mg PO DAILY #9 tabs 01/10/23 [Rx Confirmed 01/20/23] Visit Medications (administered) Generic Name Dose Route Start Last Admin Trade Name Freq PRN Reason Stop Dose Admin Aspirin 81 mg 01/20/23 09:00 01/20/23 09:02 Aspirin Ec 81 Mg Tablet PO 81 mg DAILY JAY JAY Administration Atorvastatin Calcium 80 mg 01/19/23 21:00 01/19/23 20:26 Atorvastatin 20 Mg Tablet PO 80 mg BEDTIME JAY JAY Administration Bupropion HCl 150 mg 01/19/23 21:00 01/19/23 20:27 Bupropion Sr 150 Mg Tab PO 150 mg BEDTIME JAY JAY Administration Fenofibrate 201 mg 01/20/23 09:00 01/20/23 09:01 Fenofibrate, Micronized 67 Mg Capsule PO 201 mg DAILY JAY JAY Administration Fluoxetine HCl 20 mg 01/20/23 09:00 01/20/23 09:03 Fluoxetine 20 Mg Capsule PO 20 mg DAILY JAY JAY Administration Gabapentin 300 mg 01/19/23 21:00 01/19/23 20:27 Gabapentin 300 Mg Capsule PO 300 mg BEDTIME JAY JAY Administration Heparin Sodium (Porcine) 7,500 unit 01/19/23 17:15 01/20/23 09:03 Heparin 5,000 Unit/Ml Vial SUBCUT 7,500 unit Q8H JAY JAY Administration Hydrocortisone 50 mg 01/20/23 00:00 01/20/23 11:20 Hydrocortisone 100 Mg/2 Ml Vial IV 50 mg Q6HR JAY JAY Administration NOREPINEPHRINE BITARTRATE/D5W 4 mg in 250 mls @ 45.15 mls/hr 01/19/23 16:15 01/20/23 12:02 Levophed IV 0.02 mcg/kg/min TITRATE JAY JAY 9.03 mls/hr Titration Protocol 0.1 MCG/KG/MIN Meropenem 2 gm/ Sodium 100 mls @ 200 mls/hr 01/19/23 17:00 01/20/23 05:12 Chloride IV Infused Q12H JAY JAY Infusion Insulin Human Lispro 0 unit 01/20/23 12:45 01/20/23 12:42 Insulin Lispro 100 Unit/Ml 3ml Vial SUBCUT 12 unit ACHS JAY JAY Administration Protocol Levothyroxine Sodium 75 mcg 01/20/23 06:00 01/20/23 06:50 Levothyroxine 75 Mcg Tablet PO 75 mcg 0600 JAY JAY Administration Levothyroxine Sodium 100 mcg 01/20/23 06:00 01/20/23 06:50 Levothyroxine 100 Mcg Tablet PO 100 mcg 0600 JAY JAY Administration Lidocaine 1 each 01/20/23 09:00 01/20/23 09:18 Lidocaine Patch 1 Each Adh..Patch TOP Not Given DAILY [facility] Loratadine 10 mg 01/20/23 09:00 01/20/23 09:03 Loratadine 10 Mg Tablet PO 10 mg DAILY JAY JAY Administration Magnesium Oxide 200 mg 01/20/23 09:00 01/20/23 09:01 Magnesium Oxide 400 Mg Tablet PO 200 mg DAILY JAY JAY Administration Midodrine 10 mg 01/20/23 12:00 01/20/23 11:20 Midodrine Hcl 5 Mg Tablet PO 10 mg 0600,1200,1800 JA YJAY Administration Montelukast Sodium 10 mg 01/20/23 09:00 01/20/23 09:02 Montelukast 10 Mg Tablet PO 10 mg DAILY JAY JAY Administration Sennosides 17.2 mg 01/19/23 21:00 01/19/23 20:26 Sennosides 8.6 Mg Tablet PO 17.2 mg BEDTIME JAY JAY Administration Trazodone HCl 50 mg 01/19/23 21:00 01/19/23 20:27 Trazodone 50 Mg Tablet PO 50 mg BEDTIME JAY JAY Administration Objective Labs 01/20/23 04:14 01/20/23 04:14 Labs: Laboratory Results - last 24 hr 01/19/23 01/19/23 01/19/23 13:15 15:58 21:09 WBC 8.7 RBC 3.30 L Hgb 10.9 L Hct 32.8 L MCV 99.5 MCH 33.1 MCHC 33.3 RDW 14.9 H Plt Count 259 Neut % (Auto) 79.7 H Lymph % (Auto) 12.5 L [place] % (Auto) 6.6 Eos % (Auto) 1.0 L Baso % (Auto) 0.2 Neut # (Auto) 7000 Lymph # (Auto) 1100 [place] # (Auto) 600 Eos # (Auto) 100 Baso # (Auto) 0 PT 13.6 H INR 1.2 Sodium 134 L Potassium 4.6 Chloride 91 L Carbon Dioxide 38 H BUN 55 H Creatinine 1.90 H Estimated GFR 30 L BUN/Creatinine Ratio 28.9 H Glucose 250 H Lactate 1.7 Calcium 10.1 Total Bilirubin 0.3 AST 19 ALT 13 Alkaline Phosphatase 78 Troponin I 0.025 NT-Pro-B Natriuret Pep 2470 H Total Protein 6.8 Albumin 3.4 L Globulin 3.4 Albumin/Globulin Ratio 1.0 Procalcitonin 0.35 TSH 4.46 Urine Color Yellow Urine Appearance Cloudy Urine pH 6.5 Ur Specific [place] 1.010 Urine Protein Trace H Urine Glucose (UA) Trace H Urine Ketones Negative Urine Occult Blood 1+ H Urine Nitrate Negative Urine Bilirubin Negative Urine Urobilinogen 0.2 Ur Leukocyte Esterase 2+ H Urine RBC 1-5/hpf Urine WBC >100/hpf H Ur Squamous Epith Cells 0-1 /hpf Urine Bacteria Many (>30) H Ur Culture Indicated? Specimen cultured Micro UA Comment Nasal Screen MRSA (PCR) Not detected 01/20/23 04:14 WBC 11.2 H RBC 3.54 L Hgb 11.7 L Hct 35.3 L MCV 99.6 MCH 32.9 MCHC 33.0 RDW 15.0 H Plt Count 260 Neut % (Auto) 85.8 H Lymph % (Auto) 9.7 L [place] % (Auto) 3.9 Eos % (Auto) 0.4 L Baso % (Auto) 0.2 Neut # (Auto) 9600 H Lymph # (Auto) 1100 [place] # (Auto) 400 Eos # (Auto) 0 Baso # (Auto) 0 PT INR Sodium 137 Potassium 4.7 Chloride 96 L Carbon Dioxide 33 H BUN 44 H Creatinine 1.86 H Estimated GFR 30 L BUN/Creatinine Ratio 23.7 H Glucose 351 H D Lactate Calcium 9.9 Total Bilirubin AST ALT Alkaline Phosphatase Troponin I NT-Pro-B Natriuret Pep Total Protein Albumin Globulin Albumin/Globulin Ratio Procalcitonin 0.26 TSH Urine Color Urine Appearance Urine pH Ur Specific [place] Urine Protein Urine Glucose (UA) Urine Ketones Urine Occult Blood Urine Nitrate Urine Bilirubin Urine Urobilinogen Ur Leukocyte Esterase Urine RBC Urine WBC Ur Squamous Epith Cells Urine Bacteria Ur Culture Indicated? Micro UA Comment Nasal Screen MRSA (PCR) Exam Vital Signs (past 8 hours): - 01/20/23 06:00 01/20/23 06:06 01/20/23 06:06 Temperature Pulse Rate 66 67 Respiratory Rate 31 H 27 H Blood Pressure 136/59 L Pulse Oximetry 96 97 Oxygen Delivery Method Oxygen Flow Rate 4 01/20/23 06:30 01/20/23 07:00 01/20/23 07:36 Temperature Pulse Rate 69 68 Respiratory Rate 25 H 24 Blood Pressure 128/58 L Pulse Oximetry 95 94 Oxygen Delivery Method Oxygen Flow Rate 01/20/23 07:36 01/20/23 07:56 01/20/23 07:56 Temperature Pulse Rate 51 L 67 Respiratory Rate 22 Blood Pressure 104/49 L Pulse Oximetry 95 93 Oxygen Delivery Method Oxygen Flow Rate 01/20/23 08:00 01/20/23 08:01 01/20/23 08:01 Temperature Pulse Rate 63 65 Respiratory Rate 22 23 Blood Pressure 91/57 L Pulse Oximetry 94 93 Oxygen Delivery Method Oxygen Flow Rate 01/20/23 08:31 01/20/23 08:31 01/20/23 08:45 Temperature Pulse Rate 64 Respiratory Rate 26 H Blood Pressure 95/53 L 95/50 L Pulse Oximetry 92 Oxygen Delivery Method Oxygen Flow Rate 01/20/23 08:45 01/20/23 09:00 01/20/23 09:00 Temperature Pulse Rate 81 76 Respiratory Rate 28 H 25 H Blood Pressure Pulse Oximetry 90 L 90 L Oxygen Delivery Method Nasal Cannula Oxygen Flow Rate 01/20/23 09:01 01/20/23 09:01 01/20/23 09:16 Temperature Pulse Rate 76 Respiratory Rate 24 Blood Pressure 103/44 L 94/49 L Pulse Oximetry 93 Oxygen Delivery Method Oxygen Flow Rate 01/20/23 09:16 01/20/23 09:30 01/20/23 09:30 Temperature Pulse Rate 75 70 Respiratory Rate 25 H 22 Blood Pressure 80/44 L Pulse Oximetry 93 93 Oxygen Delivery Method Oxygen Flow Rate 01/20/23 09:33 01/20/23 09:33 01/20/23 09:45 Temperature Pulse Rate 70 Respiratory Rate 23 Blood Pressure 83/50 L 87/56 L Pulse Oximetry 93 Oxygen Delivery Method Oxygen Flow Rate 01/20/23 09:45 01/20/23 10:00 01/20/23 10:01 Temperature Pulse Rate 68 66 Respiratory Rate 29 H 25 H Blood Pressure 109/72 Pulse Oximetry 96 97 Oxygen Delivery Method Oxygen Flow Rate 01/20/23 10:01 01/20/23 10:16 01/20/23 10:16 Temperature Pulse Rate 67 65 Respiratory Rate 24 29 H Blood Pressure 118/63 Pulse Oximetry 96 96 Oxygen Delivery Method Oxygen Flow Rate 01/20/23 10:30 01/20/23 10:30 01/20/23 10:46 Temperature Pulse Rate 65 Respiratory Rate 28 H Blood Pressure 120/68 92/54 L Pulse Oximetry 98 Oxygen Delivery Method Oxygen Flow Rate 01/20/23 10:46 01/20/23 11:00 01/20/23 11:00 Temperature Pulse Rate 70 72 Respiratory Rate 29 H 27 H Blood Pressure 96/55 L Pulse Oximetry 94 92 Oxygen Delivery Method Oxygen Flow Rate 01/20/23 11:15 01/20/23 11:15 01/20/23 11:30 Temperature Pulse Rate 68 71 Respiratory Rate 25 H 25 H Blood Pressure 89/53 L Pulse Oximetry 96 91 Oxygen Delivery Method Oxygen Flow Rate 01/20/23 11:31 01/20/23 11:31 01/20/23 11:46 Temperature 97.7 F Pulse Rate 74 Respiratory Rate 24 Blood Pressure 88/69 L 81/46 L Pulse Oximetry 92 Oxygen Delivery Method Oxygen Flow Rate 01/20/23 11:46 01/20/23 11:51 01/20/23 11:51 Temperature Pulse Rate 68 68 Respiratory Rate 24 22 Blood Pressure 84/53 L Pulse Oximetry 95 95 Oxygen Delivery Method Oxygen Flow Rate 01/20/23 11:58 01/20/23 11:58 01/20/23 12:00 Temperature Pulse Rate 68 Respiratory Rate 25 H Blood Pressure 84/52 L 78/50 L Pulse Oximetry 93 Oxygen Delivery Method Oxygen Flow Rate 01/20/23 12:00 01/20/23 12:04 01/20/23 12:04 Temperature Pulse Rate 68 66 Respiratory Rate 24 25 H Blood Pressure 109/57 L Pulse Oximetry 93 94 Oxygen Delivery Method Oxygen Flow Rate 01/20/23 12:30 01/20/23 12:31 01/20/23 12:31 Temperature Pulse Rate 66 68 Respiratory Rate 25 H 25 H Blood Pressure 129/79 Pulse Oximetry 96 96 Oxygen Delivery Method Oxygen Flow Rate 01/20/23 13:00 01/20/23 13:00 01/20/23 13:01 Temperature Pulse Rate 74 Respiratory Rate 29 H Blood Pressure 110/58 L Pulse Oximetry 91 Oxygen Delivery Method Nasal Cannula Oxygen Flow Rate 01/20/23 13:01 Temperature Pulse Rate 72 Respiratory Rate 34 H Blood Pressure Pulse Oximetry 92 Oxygen Delivery Method Oxygen Flow Rate Oxygen Delivery Method Nasal Cannula Oxygen Flow Rate 4
[2023-01-20] MEDS: ALBUTEROL/IPRATROPIUM 3 ML AMPUL INH (17:22)
--- NOTE | 2023-01-20 20:05 | P.ICUMDRN_ITS ---
- Date Patient Seen: 01/20/23 :: This patient was seen via real time interactive two-way audiovisual telecommunic ation. Note: Remains off pressors. Urine cx + GNR. On meropenem. OKay to transfer to floor if remains hemodynamically stable for 24 hours. D/w bedside RN.
[2023-01-20] MEDS: SENNOSIDES 8.6 MG TABLET 17.2 MG PO (20:24)
[2023-01-20] MEDS: INSULIN GLARGINE 100 UNIT/ML 3ML PEN 20 UNIT SUBCUT (20:24)
[2023-01-20] MEDS: ATORVASTATIN 20 MG TABLET 80 MG PO (20:25)
[2023-01-20] MEDS: GABAPENTIN 300 MG CAPSULE PO (20:25)
[2023-01-20] MEDS: buPROPion SR 150 MG TAB PO (20:25)
[2023-01-20] MEDS: TRAZODONE 50 MG TABLET PO (20:25)
[2023-01-20] MEDS: SODIUM CHLORIDE 0.9% FLUSH 10 ML IV (20:29)
[2023-01-21] VITALS (54 sets, daily range): BP systolic 96–158; BP diastolic 52–83; PULSE 54–82; RESP 20–45; TEMP 36.3–36.6; O2SAT 89–98
[2023-01-21] MEDS: HEPARIN 5,000 UNIT/ML VIAL 7500 UNIT SUBCUT ×4 (01:44→17:00)
[2023-01-21 04:22] LABS: Add Manual Diff / Slide Review NO; Basophils Absolute Auto 0 /uL (0-100); Basophils Percent Auto 0.1 % (0-2); Eosinophils Absolute Auto 0 /uL (0-450); Hematocrit 32.4 % (36-46); Hemoglobin 10.8 g/dL (12.0-16.0); Lymphocytes Absolute Auto 1100 /uL (1100-4500); Lymphocytes Percent Auto 11.5 % (25-40); Mean Corpuscular HGB Conc 33.5 % (30-36); Mean Corpuscular Hemoglobin 33.1 PG (26-34); Mean Corpuscular Volume 98.9 fL (80-100); Monocytes Absolute Auto 200 /uL (0-900); Monocytes Percent Auto 2.5 % (3-14); Neutrophils Absolute Auto 8400 /uL (1500-7000); Neutrophils Percent Auto 85.9 % (50-75); Platelet Count 213 X10^3/uL (150-400); Red Blood Cell Count 3.27 X10^6/uL (4.0-5.2); Red Cell Distribution Width 15.4 % (11.6-14.8); White Blood Cell Count 9.8 X10^3/uL (4.5-11.0)
[2023-01-21 04:33] LABS: BUN Creatinine Ratio 30.8 (6-22); Blood Urea Nitrogen 44 mg/dL (7-17); Calcium 10.3 mg/dL (8.4-10.2); Carbon Dioxide 35 mmol/L (22-32); Chloride 98 mmol/L (98-107); Estimated Glomerular Filt Rate 42 mL/min (>60); Glucose 324 mg/dL (80-110); HEMOLYSIS < 15 (0-50); Potassium 3.9 mmol/L (3.4-5.1); Sodium 138 mmol/L (137-145)
[2023-01-21] MEDS: MEROPENEM 2 GM in SODIUM CHLORIDE 0.9% 100 ML IV ×2 (04:35→17:01)
[2023-01-21 05:16] LABS: Procalcitonin 0.23 ng/mL (<0.5)
[2023-01-21] MEDS: HYDROCORTISONE 100 MG/2 ML VIAL 50 MG IV ×3 (06:11→18:31)
[2023-01-21] MEDS: LEVOTHYROXINE 100 MCG TABLET PO (06:12)
[2023-01-21] MEDS: MIDODRINE HCL 5 MG TABLET 10 MG PO ×2 (06:12→18:31)
[2023-01-21] MEDS: LEVOTHYROXINE 75 MCG TABLET PO (06:12)
[2023-01-21] MEDS: INSULIN LISPRO 100 UNIT/ML 3ML VIAL SUBCUT ×6 (08:02→21:33)
[2023-01-21] MEDS: ALBUTEROL/IPRATROPIUM 3 ML AMPUL INH ×4 (08:34→22:00)
[2023-01-21] MEDS: MAGNESIUM OXIDE 400 MG TABLET 200 MG PO (09:29)
[2023-01-21] MEDS: LORATADINE 10 MG TABLET PO (09:29)
[2023-01-21] MEDS: ASPIRIN EC 81 MG TABLET PO (09:29)
[2023-01-21] MEDS: MONTELUKAST 10 MG TABLET PO (09:29)
[2023-01-21] MEDS: FENOFIBRATE, MICRONIZED 67 MG CAPSULE 201 MG PO (09:31)
[2023-01-21] MEDS: INSULIN GLARGINE 100 UNIT/ML 3ML PEN 20 UNIT SUBCUT (09:33)
[2023-01-21] MEDS: FLUoxetine 20 MG CAPSULE PO (09:33)
[2023-01-21] MEDS: SODIUM CHLORIDE 0.9% FLUSH 10 ML IV (09:34)
--- NOTE | 2023-01-21 11:12 | DI.RAD.S_ITS ---
PROCEDURE: XR CHEST 1V INDICATIONS: line placement TECHNIQUE: One view of the chest was acquired. COMPARISON: [facility], CR, XR CHEST 1V, 01/05/2023, 11:57. FINDINGS: Surgical changes and devices: Left arm PICC, tip of which is in the upper SVC. Lungs and pleura: Lungs are clear. No pleural effusions or pneumothorax. Mediastinum: Mediastinal contours appear normal. Heart size is normal. Bones and chest wall: No suspicious bony lesions. Overlying soft tissues appear unremarkable. IMPRESSION: No acute process. Dictated by: Leanna Ferrari M.D. on 01/21/2023 at 11:27 Approved by: Leanna Ferrari M.D. on 01/21/2023 at 11:27
[2023-01-21] MEDS: INSULIN GLARGINE 100 UNIT/ML 3ML PEN SUBCUT (11:39)
--- NOTE | 2023-01-21 11:55 | P.PN_ITS ---
Subjective Subjective Interval history: Patient currently off levophed. She notes increased urinary urgency and frequency. Urine culture with >100k GNB. Echo with worsened EF of 20-25%. Stable for downgrade to boo care form ICU status. Exam Vital Signs (past 8 hours): - 01/21/23 04:00 01/21/23 04:00 01/21/23 04:00 Temperature 97.8 F Pulse Rate 56 L 56 L Respiratory Rate 29 H 29 H Blood Pressure 119/64 119/64 Pulse Oximetry 92 92 Oxygen Delivery Method Oxygen Flow Rate 4 Fraction of Inspired Oxygen 28 01/21/23 04:30 01/21/23 05:00 01/21/23 05:11 Temperature Pulse Rate 65 63 Respiratory Rate 28 H 29 H Blood Pressure Pulse Oximetry 89 L 93 Oxygen Delivery Method CPAP Oxygen Flow Rate Fraction of Inspired Oxygen 01/21/23 05:30 01/21/23 06:00 01/21/23 06:00 Temperature 97.6 F Pulse Rate 59 L 57 L 57 L Respiratory Rate 27 H 28 H 28 H Blood Pressure 143/62 H Pulse Oximetry 90 L 94 94 Oxygen Delivery Method Oxygen Flow Rate 4 Fraction of Inspired Oxygen 28 01/21/23 06:01 01/21/23 06:01 01/21/23 06:30 Temperature Pulse Rate 56 L 63 Respiratory Rate 31 H 27 H Blood Pressure 143/62 H Pulse Oximetry 97 97 Oxygen Delivery Method Oxygen Flow Rate Fraction of Inspired Oxygen 01/21/23 07:00 01/21/23 07:30 01/21/23 08:00 Temperature Pulse Rate 62 59 L Respiratory Rate 28 H 23 Blood Pressure 158/83 H Pulse Oximetry 97 97 Oxygen Delivery Method Oxygen Flow Rate Fraction of Inspired Oxygen 01/21/23 08:00 01/21/23 08:30 01/21/23 08:34 Temperature 97.9 F Pulse Rate 58 L 66 66 Respiratory Rate 25 H 22 20 Blood Pressure Pulse Oximetry 97 96 97 Oxygen Delivery Method Nasal Cannula Oxygen Flow Rate 6 Fraction of Inspired Oxygen 01/21/23 09:00 01/21/23 09:00 01/21/23 09:30 Temperature Pulse Rate 64 74 Respiratory Rate 34 H 29 H Blood Pressure Pulse Oximetry 93 93 Oxygen Delivery Method Nasal Cannula Oxygen Flow Rate Fraction of Inspired Oxygen 01/21/23 10:00 01/21/23 10:01 01/21/23 10:01 Temperature Pulse Rate 71 69 Respiratory Rate 28 H 28 H Blood Pressure 119/64 Pulse Oximetry 93 94 Oxygen Delivery Method Oxygen Flow Rate Fraction of Inspired Oxygen 01/21/23 10:30 01/21/23 11:00 Temperature Pulse Rate 62 62 Respiratory Rate 26 H 24 Blood Pressure Pulse Oximetry 94 93 Oxygen Delivery Method Oxygen Flow Rate Fraction of Inspired Oxygen Fraction of Inspired Oxygen 28 Oxygen Delivery Method Nasal Cannula Oxygen Flow Rate 6 Narrative Exam Narrative: GEN: no acute distress, obese on O2 NC HEENT: moist mucous membranes, PERRL NECK: trachea midline, no JVD CV: regular rate and rhythm, no murmurs PULM: clear bilaterally ABD: soft, nontender, protuberant, no organomegaly EXT: warm and well perfused with no edema NEURO: awake, alert, oriented, no focal deficits Objective Labs 01/21/23 04:06 01/21/23 04:06 Labs: Laboratory Results - last 24 hr 01/21/23 04:06 WBC 9.8 RBC 3.27 L Hgb 10.8 L Hct 32.4 L MCV 98.9 MCH 33.1 MCHC 33.5 RDW 15.4 H Plt Count 213 Neut % (Auto) 85.9 H Lymph % (Auto) 11.5 L [place] % (Auto) 2.5 L Eos % (Auto) 0.0 L Baso % (Auto) 0.1 Neut # (Auto) 8400 H Lymph # (Auto) 1100 [place] # (Auto) 200 Eos # (Auto) 0 Baso # (Auto) 0 Sodium 138 Potassium 3.9 Chloride 98 Carbon Dioxide 35 H BUN 44 H Creatinine 1.43 H Estimated GFR 42 L BUN/Creatinine Ratio 30.8 H Glucose 324 H Calcium 10.3 H Procalcitonin 0.23 PFSH Medical History PONCE (obstructive sleep apnea) Chronic hypoxemic respiratory failure COPD (chronic obstructive pulmonary disease) DM2 (diabetes mellitus, type 2) HTN (hypertension) Thyroiditis Systolic and diastolic CHF, chronic Obesity Surgical History S/P hernia surgery Family History Mother No pertinent past medical history Father No pertinent past medical history Social History household members: other Smoking Status: Former smoker alcohol intake: former Assessment & Plan Assessment & Plan narrative: # undifferentiated shock, resolved at this time -BP down to 88/54 in ED, unclear if sepsis vs cardiogenic -abx for now -BNP 2470 on 01/19 and echo with decreased EF of 25 +/-5% -Levophed started in ED, currently not requiring -hydrocortisone 50 mg IV q.6 for stress dose steroids -midodrine 10mg TID ordered -appreciate tele ICU consult and they have signed off currently # worsened HFrEF -last EF 30-35%, unclear if in cardiogenic shock as BNP only 2200 and previously 22k -repeat echo with worsened EF of 20-30% -will need cardiology f/up # possible pyelonephritis, POA and active. -CT abd with fat stranding, UA with pyuria -will use meropenem to cover for ESBL and pseudomonas -urine culture with >100k GNB, pending further identification # recent E coli bacteremia, present on admission and active. -e. coli bacteremia noted on blood culture, pansensitive and was on po levaquin -h/o of ESBL -abx as above # BLANCA on CKD, improving -creatinine 1.9 and baseline 1.3 -s/p 2 L boluses in ED -monitor and renally dose meds # chronic hypoxic respiratory failure -on home 2L O2 # COPD -continue nebs prn # DM2, POA and stable -continue insulin and sliding scale # CKD 3, POA and stable. # morbid obesity, POA. Code status is full code. DVT prophylaxis with heparin subcutaneous. Proxy is daughter Roxy.
[2023-01-21] MEDS: TRAZODONE 50 MG TABLET PO (21:26)
[2023-01-21] MEDS: ATORVASTATIN 20 MG TABLET 80 MG PO (21:26)
[2023-01-21] MEDS: SENNOSIDES 8.6 MG TABLET 17.2 MG PO (21:26)
[2023-01-21] MEDS: buPROPion SR 150 MG TAB PO (21:26)
[2023-01-21] MEDS: GABAPENTIN 300 MG CAPSULE PO (21:26)
[2023-01-21] MEDS: INSULIN GLARGINE 100 UNIT/ML 3ML PEN 25 UNIT SUBCUT (21:27)
[2023-01-22] VITALS (53 sets, daily range): BP systolic 116–156; BP diastolic 63–84; PULSE 53–87; RESP 21–48; TEMP 36.1–36.6; O2SAT 87–98
[2023-01-22] MEDS: HEPARIN 5,000 UNIT/ML VIAL 7500 UNIT SUBCUT ×3 (01:15→17:48)
[2023-01-22] MEDS: HYDROCORTISONE 100 MG/2 ML VIAL 50 MG IV ×4 (01:15→17:48)
[2023-01-22] MEDS: SODIUM CHLORIDE 0.9% FLUSH 10 ML IV ×3 (01:15→20:57)
[2023-01-22] MEDS: SODIUM CHLORIDE 0.9% 100 ML 200 ML (04:00)
[2023-01-22] MEDS: MEROPENEM 2 GM in SODIUM CHLORIDE 0.9% 100 ML IV ×2 (04:08→17:47)
[2023-01-22 04:40] LABS: Add Manual Diff / Slide Review NO; Basophils Absolute Auto 0 /uL (0-100); Basophils Percent Auto 0.1 % (0-2); Eosinophils Absolute Auto 0 /uL (0-450); Eosinophils Percent Auto 0.1 % (2-4); Hemoglobin 10.4 g/dL (12.0-16.0); Lymphocytes Absolute Auto 1200 /uL (1100-4500); Lymphocytes Percent Auto 11.2 % (25-40); Mean Corpuscular HGB Conc 33.6 % (30-36); Mean Corpuscular Hemoglobin 33.3 PG (26-34); Mean Corpuscular Volume 99.1 fL (80-100); Monocytes Absolute Auto 300 /uL (0-900); Monocytes Percent Auto 3.1 % (3-14); Neutrophils Absolute Auto 9400 /uL (1500-7000); Neutrophils Percent Auto 85.5 % (50-75); Platelet Count 197 X10^3/uL (150-400); Red Blood Cell Count 3.12 X10^6/uL (4.0-5.2); Red Cell Distribution Width 14.7 % (11.6-14.8)
[2023-01-22 04:51] LABS: BUN Creatinine Ratio 36.3 (6-22); Blood Urea Nitrogen 45 mg/dL (7-17); Calcium 10.5 mg/dL (8.4-10.2); Carbon Dioxide 35 mmol/L (22-32); Chloride 100 mmol/L (98-107); Estimated Glomerular Filt Rate 50 mL/min (>60); Glucose 230 mg/dL (80-110); HEMOLYSIS < 15 (0-50); Potassium 4.2 mmol/L (3.4-5.1); Sodium 138 mmol/L (137-145)
[2023-01-22] MEDS: ALBUTEROL/IPRATROPIUM 3 ML AMPUL INH ×4 (05:40→21:00)
[2023-01-22] MEDS: MIDODRINE HCL 5 MG TABLET 10 MG PO (05:48)
[2023-01-22] MEDS: LEVOTHYROXINE 75 MCG TABLET PO (05:48)
[2023-01-22] MEDS: LEVOTHYROXINE 100 MCG TABLET PO (05:50)
[2023-01-22 06:25] LABS: Procalcitonin 0.18 ng/mL (<0.5)
--- NOTE | 2023-01-22 07:17 | PC.NURSE ---
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
[2023-01-22] MEDS: INSULIN LISPRO 100 UNIT/ML 3ML VIAL SUBCUT ×7 (08:20→21:07)
[2023-01-22] MEDS: INSULIN GLARGINE 100 UNIT/ML 3ML PEN 25 UNIT SUBCUT ×2 (08:21→21:07)
[2023-01-22] MEDS: ASPIRIN EC 81 MG TABLET PO (08:52)
[2023-01-22] MEDS: LORATADINE 10 MG TABLET PO (08:52)
[2023-01-22] MEDS: FENOFIBRATE, MICRONIZED 67 MG CAPSULE 201 MG PO (08:52)
[2023-01-22] MEDS: MAGNESIUM OXIDE 400 MG TABLET 200 MG PO (08:52)
[2023-01-22] MEDS: MONTELUKAST 10 MG TABLET PO (08:52)
[2023-01-22] MEDS: FLUoxetine 20 MG CAPSULE PO (08:52)
--- NOTE | 2023-01-22 14:16 | PM.PN.1 ---
Subjective Subjective Date Patient Seen: 01/22/23 Interval history: Feel like she is slowly getting better. No new complaints. Urine culture from Nov 2 has gram negative bacilli, identification and sensitivity pending. Patient currently on meropenum, will await full culture results. Exam Vital Signs (past 8 hours): - 01/22/23 06:30 01/22/23 07:00 01/22/23 07:00 Temperature Pulse Rate 62 59 L Respiratory Rate 24 45 H Blood Pressure Pulse Oximetry 96 96 Oxygen Delivery Method Nasal Cannula 01/22/23 07:30 01/22/23 08:00 01/22/23 08:30 Temperature 98 F Pulse Rate 60 65 61 Respiratory Rate 34 H 27 H 27 H Blood Pressure Pulse Oximetry 97 96 97 Oxygen Delivery Method 01/22/23 09:00 01/22/23 09:30 01/22/23 10:00 Temperature Pulse Rate 75 68 69 Respiratory Rate 32 H 22 23 Blood Pressure Pulse Oximetry 95 95 95 Oxygen Delivery Method 01/22/23 10:02 01/22/23 10:02 01/22/23 10:30 Temperature Pulse Rate 68 70 Respiratory Rate 24 23 Blood Pressure 140/75 Pulse Oximetry 94 97 Oxygen Delivery Method 01/22/23 11:00 01/22/23 11:30 01/22/23 12:00 Temperature Pulse Rate 75 71 Respiratory Rate 24 26 H Blood Pressure 148/84 H Pulse Oximetry 95 96 Oxygen Delivery Method 01/22/23 12:00 01/22/23 12:30 01/22/23 13:00 Temperature 97.9 F Pulse Rate 70 70 86 Respiratory Rate 25 H 25 H 29 H Blood Pressure Pulse Oximetry 95 95 89 L Oxygen Delivery Method Fraction of Inspired Oxygen 44 SaO2/FiO2 Ratio 213 Oxygen Delivery Method Nasal Cannula Oxygen Flow Rate 2 Narrative Exam Narrative: GEN: no acute distress, obese on O2 NC HEENT: moist mucous membranes, PERRL NECK: trachea midline, no JVD CV: regular rate and rhythm, no murmurs PULM: clear bilaterally ABD: soft, nontender, protuberant, no organomegaly EXT: warm and well perfused with no edema NEURO: awake, alert, oriented, no focal deficit Objective Labs 01/22/23 04:30 01/22/23 04:30 Labs: Laboratory Results - last 24 hr 01/22/23 04:30 WBC 11.0 RBC 3.12 L Hgb 10.4 L Hct 31.0 L MCV 99.1 MCH 33.3 MCHC 33.6 RDW 14.7 Plt Count 197 Neut % (Auto) 85.5 H Lymph % (Auto) 11.2 L [place] % (Auto) 3.1 Eos % (Auto) 0.1 L Baso % (Auto) 0.1 Neut # (Auto) 9400 H Lymph # (Auto) 1200 [place] # (Auto) 300 Eos # (Auto) 0 Baso # (Auto) 0 Sodium 138 Potassium 4.2 Chloride 100 Carbon Dioxide 35 H BUN 45 H Creatinine 1.24 H Estimated GFR 50 L BUN/Creatinine Ratio 36.3 H Glucose 230 H Calcium 10.5 H Procalcitonin 0.18 PFSH Medical History PONCE (obstructive sleep apnea) Chronic hypoxemic respiratory failure COPD (chronic obstructive pulmonary disease) DM2 (diabetes mellitus, type 2) HTN (hypertension) Thyroiditis Systolic and diastolic CHF, chronic Obesity Surgical History S/P hernia surgery Family History Mother No pertinent past medical history Father No pertinent past medical history Social History household members: other Smoking Status: Former smoker alcohol intake: former Assessment & Plan Assessment & Plan narrative: # undifferentiated shock, resolved at this time -BP down to 88/54 in ED, unclear if sepsis vs cardiogenic initially -abx for now -BNP 2470 on 01/19 and echo with decreased EF of 25 +/-5% -Levophed started in ED, currently not requiring -hydrocortisone 50 mg IV q.6 for stress dose steroids -midodrine 10mg TID ordered -appreciate tele ICU consult and they have signed off currently - check BNP tomorrow # worsened HFrEF -last EF 30-35%, unclear if in cardiogenic shock as BNP not as high as previously 22k -repeat echo with worsened EF of 20-30% -will need cardiology f/up # possible pyelonephritis, POA and active. -CT abd with fat stranding, UA with pyuria -will use meropenem to cover for ESBL and pseudomonas -urine culture with >100k GNB, pending further identification, definitely gram negative bacilli # recent E coli bacteremia, present on admission and active. -e. coli bacteremia noted on blood culture, pansensitive and was on po levaquin -h/o of ESBL -abx as above # BLANCA on CKD, improving -creatinine now 1,24 and baseline 1.3 commonly, so at baseline now -s/p 2 L boluses in ED -monitor and renally dose meds # chronic hypoxic respiratory failure -on home 2L O2 - now at baseline # COPD -continue nebs prn # DM2, POA and stable -continue insulin and sliding scale # CKD 3, POA and stable. # morbid obesity, POA. Code status is full code. DVT prophylaxis with heparin subcutaneous. Proxy is daughter Roxy.
[2023-01-22] MEDS: TORSEMIDE 10 MG TABLET PO (15:14)
[2023-01-22] MEDS: ATORVASTATIN 20 MG TABLET 80 MG PO (20:55)
[2023-01-22] MEDS: buPROPion SR 150 MG TAB PO (20:56)
[2023-01-22] MEDS: TRAZODONE 50 MG TABLET PO (20:56)
[2023-01-22] MEDS: GABAPENTIN 300 MG CAPSULE PO (20:56)
[2023-01-22] MEDS: ACETAMINOPHEN 325 MG TABLET 650 MG PO (20:56)
[2023-01-23] VITALS (44 sets, daily range): BP systolic 120–150; BP diastolic 64–96; PULSE 59–90; RESP 14–39; TEMP 35.9–37.1; O2SAT 87–100
[2023-01-23] MEDS: HYDROCORTISONE 100 MG/2 ML VIAL 50 MG IV ×3 (01:21→12:03)
[2023-01-23] MEDS: HEPARIN 5,000 UNIT/ML VIAL 7500 UNIT SUBCUT ×3 (01:22→17:16)
[2023-01-23] MEDS: MEROPENEM 2 GM in SODIUM CHLORIDE 0.9% 100 ML IV ×2 (01:28→09:48)
[2023-01-23] MEDS: MIDODRINE HCL 5 MG TABLET 10 MG PO ×2 (05:40→17:16)
[2023-01-23] MEDS: LEVOTHYROXINE 100 MCG TABLET PO (05:40)
[2023-01-23] MEDS: LEVOTHYROXINE 75 MCG TABLET PO (05:41)
[2023-01-23 06:03] LABS: Add Manual Diff / Slide Review NO; Basophils Absolute Auto 0 /uL (0-100); Basophils Percent Auto 0.2 % (0-2); Eosinophils Absolute Auto 0 /uL (0-450); Eosinophils Percent Auto 0.1 % (2-4); Hematocrit 31.1 % (36-46); Hemoglobin 10.4 g/dL (12.0-16.0); Lymphocytes Absolute Auto 1200 /uL (1100-4500); Lymphocytes Percent Auto 10.9 % (25-40); Mean Corpuscular HGB Conc 33.5 % (30-36); Mean Corpuscular Hemoglobin 33.1 PG (26-34); Mean Corpuscular Volume 98.7 fL (80-100); Monocytes Absolute Auto 400 /uL (0-900); Monocytes Percent Auto 3.6 % (3-14); Neutrophils Absolute Auto 9300 /uL (1500-7000); Neutrophils Percent Auto 85.2 % (50-75); Platelet Count 187 X10^3/uL (150-400); Red Blood Cell Count 3.15 X10^6/uL (4.0-5.2); Red Cell Distribution Width 15.2 % (11.6-14.8)
[2023-01-23 06:18] LABS: BUN Creatinine Ratio 46.6 (6-22); Blood Urea Nitrogen 54 mg/dL (7-17); Calcium 10.2 mg/dL (8.4-10.2); Carbon Dioxide 37 mmol/L (22-32); Chloride 98 mmol/L (98-107); Estimated Glomerular Filt Rate 54 mL/min (>60); Glucose 242 mg/dL (80-110); HEMOLYSIS 35 (0-50); Potassium 4.2 mmol/L (3.4-5.1); Sodium 138 mmol/L (137-145)
[2023-01-23 06:23] LABS: C-Reactive Protein Quant 1.8 mg/dL (<1.0)
[2023-01-23 06:28] LABS: NT-proBNP (BNP-Adult 18+) 14800 pg/mL (<125)
[2023-01-23 06:36] LABS: Procalcitonin 0.15 ng/mL (<0.5)
[2023-01-23] MEDS: INSULIN LISPRO 100 UNIT/ML 3ML VIAL SUBCUT ×7 (07:42→20:17)
[2023-01-23] MEDS: INSULIN GLARGINE 100 UNIT/ML 3ML PEN 25 UNIT SUBCUT (07:44)
[2023-01-23] MEDS: MONTELUKAST 10 MG TABLET PO (08:32)
[2023-01-23] MEDS: MAGNESIUM OXIDE 400 MG TABLET 200 MG PO (08:33)
[2023-01-23] MEDS: LORATADINE 10 MG TABLET PO (08:33)
[2023-01-23] MEDS: FENOFIBRATE, MICRONIZED 67 MG CAPSULE 201 MG PO (08:33)
[2023-01-23] MEDS: FLUoxetine 20 MG CAPSULE PO (08:33)
[2023-01-23] MEDS: ASPIRIN EC 81 MG TABLET PO (08:33)
[2023-01-23] MEDS: TORSEMIDE 10 MG TABLET PO ×2 (08:33→12:15)
[2023-01-23] MEDS: ALBUTEROL/IPRATROPIUM 3 ML AMPUL INH ×3 (09:13→18:57)
[2023-01-23] MEDS: SODIUM CHLORIDE 0.9% FLUSH 10 ML IV ×2 (09:48→21:05)
--- NOTE | 2023-01-23 12:05 | PM.PN.1 ---
Subjective Subjective Date Patient Seen: 01/23/23 Interval history: Patient feeling good except for sensation of SOB. informed patient urine culure is E coli sensitive to Nitrofurantoin, so has meropenum stopped and nitrofurantoin started. Exam Vital Signs (past 8 hours): - 01/23/23 05:00 01/23/23 06:00 01/23/23 06:00 Temperature 97.2 F L Pulse Rate 68 Respiratory Rate 25 H Blood Pressure 127/77 Pulse Oximetry 92 Oxygen Delivery Method Oxygen Flow Rate Fraction of Inspired Oxygen 01/23/23 06:30 01/23/23 07:00 01/23/23 07:00 Temperature Pulse Rate 60 74 Respiratory Rate 23 29 H Blood Pressure Pulse Oximetry 93 96 Oxygen Delivery Method Nasal Cannula Oxygen Flow Rate Fraction of Inspired Oxygen 01/23/23 07:31 01/23/23 08:00 01/23/23 08:00 Temperature 96.9 F L Pulse Rate 67 67 Respiratory Rate 26 H Blood Pressure 150/85 H Pulse Oximetry 97 96 Oxygen Delivery Method Nasal Cannula Oxygen Flow Rate 2 Fraction of Inspired Oxygen 28 01/23/23 08:30 01/23/23 09:00 01/23/23 09:14 Temperature Pulse Rate 61 78 84 Respiratory Rate 28 H 36 H 20 Blood Pressure Pulse Oximetry 97 94 95 Oxygen Delivery Method Nasal Cannula Oxygen Flow Rate 20 Fraction of Inspired Oxygen 28 Fraction of Inspired Oxygen 28 SaO2/FiO2 Ratio 339 Oxygen Delivery Method Nasal Cannula Oxygen Flow Rate 20 Narrative Exam Narrative: GEN: no acute distress, obese on O2 NC HEENT: moist mucous membranes, PERRL NECK: trachea midline, no JVD CV: regular rate and rhythm, no murmurs PULM: clear bilaterally ABD: soft, nontender, protuberant, no organomegaly EXT: warm and well perfused with no edema NEURO: awake, alert, oriented, no focal deficit Objective Labs 01/23/23 05:45 01/23/23 05:45 Labs: Laboratory Results - last 24 hr 01/23/23 05:45 WBC 11.0 RBC 3.15 L Hgb 10.4 L Hct 31.1 L MCV 98.7 MCH 33.1 MCHC 33.5 RDW 15.2 H Plt Count 187 Neut % (Auto) 85.2 H Lymph % (Auto) 10.9 L [place] % (Auto) 3.6 Eos % (Auto) 0.1 L Baso % (Auto) 0.2 Neut # (Auto) 9300 H Lymph # (Auto) 1200 [place] # (Auto) 400 Eos # (Auto) 0 Baso # (Auto) 0 Sodium 138 Potassium 4.2 Chloride 98 Carbon Dioxide 37 H BUN 54 H Creatinine 1.16 H Estimated GFR 54 L BUN/Creatinine Ratio 46.6 H Glucose 242 H Calcium 10.2 C-Reactive Protein 1.8 H NT-Pro-B Natriuret Pep 26620 H Procalcitonin 0.15 PFSH Medical History PONCE (obstructive sleep apnea) Chronic hypoxemic respiratory failure COPD (chronic obstructive pulmonary disease) DM2 (diabetes mellitus, type 2) HTN (hypertension) Thyroiditis Systolic and diastolic CHF, chronic Obesity Surgical History S/P hernia surgery Family History Mother No pertinent past medical history Father No pertinent past medical history Social History household members: other Smoking Status: Former smoker alcohol intake: former Assessment & Plan Assessment & Plan narrative: # undifferentiated shock, resolved at this time -BP down to 88/54 in ED, unclear if sepsis vs cardiogenic initially - blood culture negative however -BNP 2470 on 01/19 and echo with decreased EF of 25 +/-5%... BNP increased to 14, 800 today, increased torsemide to 20 mg daily today, may need to increase more -Levophed started in ED, currently not requiring -hydrocortisone 50 mg IV q.6 for stress dose steroids - discontinue now -midodrine 10mg TID ordered, currently continues -appreciate tele ICU consult and they have signed off currently - check BNP tomorrow # worsened HFrEF -last EF 30-35%, unclear if in cardiogenic shock as BNP not as high as previously 22k -repeat echo with worsened EF of 20-30% -will need cardiology f/up on discharge # possible pyelonephritis, POA and active. -CT abd with fat stranding, UA with pyuria -will use meropenem to cover for ESBL and pseudomonas -urine culture with >100k GNB, pending further identification, definitely gram negative bacilli - E coli sensitive to nitrofurantoin - started on that # recent E coli bacteremia, present on admission and active. -e. coli bacteremia noted on blood culture, pansensitive and was on po levaquin - was on meropenum but that was discontinued today -h/o of ESBL -abx as above # BLANCA on CKD, improving -creatinine now 1.16 and baseline 1.3 commonly, so now better than baseline -s/p 2 L boluses in ED -monitor and renally dose meds # chronic hypoxic respiratory failure -on home 2L O2 - now at baseline # COPD -continue nebs prn # DM2, POA and stable -continue insulin and sliding scale, today blood sugar running high (387) - will increase glargine to 30 Units BID # CKD 3, POA and stable. # morbid obesity, POA. Disposition: Need to stablized BNP, diuresis than plan for discharge to [place] which is patient's residence Code status is full code. DVT prophylaxis with heparin subcutaneous. Proxy is daughter Roxy.
[2023-01-23] MEDS: NITROFURANTOIN ER 100 MG CAPSULE PO ×2 (12:12→20:17)
--- NOTE | 2023-01-23 13:13 | DI.RAD.S_ITS ---
PROCEDURE: XR CHEST 1V INDICATIONS: compare to 01/21 assess for intersitial edema TECHNIQUE: One view of the chest was acquired. COMPARISON: [facility], CT, CT CHEST WO CON, 01/19/2023, 14:51. [facility], CR, XR CHEST 1V, 01/21/2023, 11:15. [facility], CR, XR CHEST 1V, 01/05/2023, 11:57. FINDINGS: Surgical changes and devices: Left PICC again seen in stable position. Lungs and pleura: Lungs are clear. No pleural effusions or pneumothorax. Mediastinum: Mediastinal contours appear normal. Heart size is mildly enlarged, stable. Bones and chest wall: No suspicious bony lesions. Overlying soft tissues appear unremarkable. IMPRESSION: No definite interstitial edema. No significant interval change. Approved by: Chandler Fung M.D. on 01/23/2023 at 14:13
--- NOTE | 2023-01-23 16:19 | CM.DPC ---
DCP Continued: CENTRIFUGAL WAX MOLDER reviewed EMR. Per provider, may be able to d/c tomorrow back to . CENTRIFUGAL WAX MOLDER spoke with Ursula at . Attempting to get auth from [facility]. Coordinated with August re: dcp with antibiotics. Provider reports will need oral antibiotics at this time. Plan: attempting to obtain [facility] Auth. CM team will continue to follow closely in am. [place] Han
[2023-01-23] MEDS: buPROPion SR 150 MG TAB PO (20:16)
[2023-01-23] MEDS: SENNOSIDES 8.6 MG TABLET 17.2 MG PO (20:16)
[2023-01-23] MEDS: ATORVASTATIN 20 MG TABLET 80 MG PO (20:16)
[2023-01-23] MEDS: GABAPENTIN 300 MG CAPSULE PO (20:16)
[2023-01-23] MEDS: TRAZODONE 50 MG TABLET PO (20:16)
[2023-01-23] MEDS: INSULIN GLARGINE 100 UNIT/ML 3ML PEN 30 UNIT SUBCUT (20:17)
[2023-01-24] VITALS (43 sets, daily range): BP systolic 105–141; BP diastolic 57–86; PULSE 60–89; RESP 21–34; TEMP 36.1–37.1; O2SAT 82–99
[2023-01-24] MEDS: HEPARIN 5,000 UNIT/ML VIAL 7500 UNIT SUBCUT ×3 (01:00→17:52)
[2023-01-24 04:41] LABS: Add Manual Diff / Slide Review NO; Basophils Absolute Auto 100 /uL (0-100); Basophils Percent Auto 0.4 % (0-2); Eosinophils Absolute Auto 100 /uL (0-450); Eosinophils Percent Auto 0.8 % (2-4); Hematocrit 32.8 % (36-46); Hemoglobin 10.8 g/dL (12.0-16.0); Lymphocytes Absolute Auto 2600 /uL (1100-4500); Lymphocytes Percent Auto 14.9 % (25-40); Mean Corpuscular Hemoglobin 32.4 PG (26-34); Mean Corpuscular Volume 98.2 fL (80-100); Monocytes Absolute Auto 1100 /uL (0-900); Monocytes Percent Auto 6.2 % (3-14); Neutrophils Absolute Auto 13600 /uL (1500-7000); Neutrophils Percent Auto 77.7 % (50-75); Platelet Count 205 X10^3/uL (150-400); Red Blood Cell Count 3.34 X10^6/uL (4.0-5.2); Red Cell Distribution Width 15.4 % (11.6-14.8); White Blood Cell Count 17.5 X10^3/uL (4.5-11.0)
[2023-01-24 04:47] LABS: BUN Creatinine Ratio 49.6 (6-22); Blood Urea Nitrogen 61 mg/dL (7-17); Calcium 9.9 mg/dL (8.4-10.2); Chloride 92 mmol/L (98-107); Estimated Glomerular Filt Rate 50 mL/min (>60); Glucose 101 mg/dL (80-110); HEMOLYSIS < 15 (0-50); Potassium 2.9 mmol/L (3.4-5.1); Sodium 138 mmol/L (137-145)
[2023-01-24 04:57] LABS: NT-proBNP (BNP-Adult 18+) 18800 pg/mL (<125)
[2023-01-24 04:58] LABS: Carbon Dioxide 40 mmol/L (22-32)
[2023-01-24] MEDS: POTASSIUM CHLORIDE 20 MEQ/15 ML UDC 40 MEQ PO (06:20)
[2023-01-24] MEDS: LEVOTHYROXINE 75 MCG TABLET PO (06:20)
[2023-01-24] MEDS: LEVOTHYROXINE 100 MCG TABLET PO (06:20)
[2023-01-24] MEDS: MIDODRINE HCL 5 MG TABLET 10 MG PO ×3 (06:22→17:51)
[2023-01-24] MEDS: ALBUTEROL/IPRATROPIUM 3 ML AMPUL INH ×2 (08:35→18:32)
[2023-01-24] MEDS: INSULIN LISPRO 100 UNIT/ML 3ML VIAL SUBCUT ×5 (09:47→20:53)
[2023-01-24] MEDS: NITROFURANTOIN ER 100 MG CAPSULE PO (09:48)
[2023-01-24] MEDS: ASPIRIN EC 81 MG TABLET PO (09:48)
[2023-01-24] MEDS: FENOFIBRATE, MICRONIZED 67 MG CAPSULE 201 MG PO (09:48)
[2023-01-24] MEDS: MONTELUKAST 10 MG TABLET PO (09:48)
[2023-01-24] MEDS: MAGNESIUM OXIDE 400 MG TABLET 200 MG PO (09:50)
[2023-01-24] MEDS: TORSEMIDE 10 MG TABLET 20 MG PO (09:50)
[2023-01-24] MEDS: INSULIN GLARGINE 100 UNIT/ML 3ML PEN 30 UNIT SUBCUT ×2 (09:51→20:53)
[2023-01-24] MEDS: LORATADINE 10 MG TABLET PO (09:51)
[2023-01-24] MEDS: FLUoxetine 20 MG CAPSULE PO (09:52)
[2023-01-24] MEDS: SODIUM CHLORIDE 0.9% FLUSH 10 ML IV ×2 (09:52→20:54)
--- NOTE | 2023-01-24 10:30 | P.DS_ITS ---
History of Present Illness History of Present Illness Date Patient Seen: 01/24/23 Time Patient Seen: 10:30 Chief complaint: fall r knee pain Narrative: Mary Carmen Jett is a 62yo F with PMH of DM2, COPD on chronic 2L O2, HFrEF of 30-35%, morbid obesity, PONCE, HTN, hypothyroidism, frequent UTI's and depression who presents with weakness and shock. Patient apparently slid off her bed at [facility] due to weakness and found to have BP of 80's sytolic. She states when she left the hospital a week ago she never really felt like she got better. Says she has been weak since then. Notes a sore throat but no cough, congestion or runny nose. Denies dysuria or suprapubic pain. In the ED patient had BP of 83/52 and given 2L NS boluses without much improvement. Started on levophed at 0.025mcg and BP jumped to 120's sytolic. Blood cultures taken and UA noted to have pyuria. She was taking levaquin after last hospitalization a week ago for E. coli bacteremia and UTI. She denies CP, SOB, headache, fever/chills, abd pain or diarrhea. Discharge Providers Provider Date of admission: 01/19/23 16:56 Primary care physician: Simone Rodgers MD Consults: 01/19/23 17:03 Consult to Tele-environmental services manager Routine Comment: Consulting Provider: [facility] [employer] Reason for consultation: [employer] Discharge provider: Esteban Gillespie, Exam Vital Signs (past 8 hours): - 01/24/23 03:00 01/24/23 03:30 01/24/23 04:00 Temperature 98.8 F Pulse Rate 83 89 82 Respiratory Rate 28 H 27 H 28 H Blood Pressure Pulse Oximetry Oxygen Delivery Method Oxygen Flow Rate 01/24/23 04:01 01/24/23 04:01 01/24/23 04:30 Temperature Pulse Rate 86 82 Respiratory Rate 27 H 26 H Blood Pressure 125/58 L Pulse Oximetry Oxygen Delivery Method Oxygen Flow Rate 01/24/23 05:00 01/24/23 05:30 01/24/23 06:00 Temperature Pulse Rate 82 84 Respiratory Rate 27 H 31 H Blood Pressure 120/72 Pulse Oximetry Oxygen Delivery Method Oxygen Flow Rate 01/24/23 06:00 01/24/23 06:30 01/24/23 07:00 Temperature Pulse Rate 78 77 66 Respiratory Rate 26 H 22 25 H Blood Pressure Pulse Oximetry 82 L 99 Oxygen Delivery Method Oxygen Flow Rate 01/24/23 07:30 01/24/23 08:00 01/24/23 08:00 Temperature 98 F Pulse Rate 66 66 Respiratory Rate 34 H 24 Blood Pressure 141/76 H Pulse Oximetry 99 99 Oxygen Delivery Method Oxygen Flow Rate 01/24/23 08:30 01/24/23 08:39 01/24/23 09:00 Temperature Pulse Rate 71 61 Respiratory Rate 25 H 27 H Blood Pressure Pulse Oximetry 99 99 99 Oxygen Delivery Method Nasal Cannula Oxygen Flow Rate 2 01/24/23 09:30 01/24/23 10:00 01/24/23 10:00 Temperature Pulse Rate 79 78 Respiratory Rate 31 H 25 H Blood Pressure 107/57 L Pulse Oximetry 96 97 Oxygen Delivery Method Oxygen Flow Rate Fraction of Inspired Oxygen 28 SaO2/FiO2 Ratio 339 Oxygen Delivery Method Nasal Cannula Oxygen Flow Rate 2 Objective Labs 01/24/23 04:28 01/24/23 04:28 Labs: Laboratory Results - last 24 hr 01/24/23 04:28 WBC 17.5 H D RBC 3.34 L Hgb 10.8 L Hct 32.8 L MCV 98.2 MCH 32.4 MCHC 33.0 RDW 15.4 H Plt Count 205 Neut % (Auto) 77.7 H Lymph % (Auto) 14.9 L [place] % (Auto) 6.2 Eos % (Auto) 0.8 L Baso % (Auto) 0.4 Neut # (Auto) 78265 H Lymph # (Auto) 2600 [place] # (Auto) 1100 H Eos # (Auto) 100 Baso # (Auto) 100 Sodium 138 Potassium 2.9 L D Chloride 92 L Carbon Dioxide 40 H* BUN 61 H Creatinine 1.23 H Estimated GFR 50 L BUN/Creatinine Ratio 49.6 H Glucose 101 D Calcium 9.9 Magnesium 2.0 NT-Pro-B Natriuret Pep 21082 H [facility] Medical History PONCE (obstructive sleep apnea) Chronic hypoxemic respiratory failure COPD (chronic obstructive pulmonary disease) DM2 (diabetes mellitus, type 2) HTN (hypertension) Thyroiditis Systolic and diastolic CHF, chronic Obesity Surgical History S/P hernia surgery Family History Mother No pertinent past medical history Father No pertinent past medical history Social History household members: other Smoking Status: Former smoker alcohol intake: former Discharge Plan Discharge orders & Medications Prescriptions: No Action albuterol sulfate 90 mcg/actuation HFA aerosol inhaler 4 puff INHALATION Q4H PRN (Reason: Shortness Of Breath Or Wheezing) levothyroxine 175 mcg tablet 175 mcg PO DAILY potassium chloride 10 mEq tablet extended release 10 meq PO DAILY torsemide 10 mg tablet 10 mg PO DAILY bupropion HCl 150 mg tablet sustained-release 12 hr 150 mg PO BEDTIME sennosides [senna] 8.6 mg tablet 17.2 mg PO BEDTIME acetaminophen [Tylenol] 325 mg Tablet 650 mg PO TID trazodone 50 mg tablet 50 mg PO BEDTIME aspirin 81 mg Tablet,Delayed Release (Dr/Ec) 81 mg PO DAILY carvedilol 3.125 mg tablet 3.125 mg PO BID cyanocobalamin (vitamin B-12) 500 mcg Tablet 500 mcg PO DAILY meclizine 25 mg tablet 25 mg PO Q8HR PRN (Reason: Dizziness) ferrous sulfate 325 mg (65 mg iron) Tablet 325 mg PO DAILY fluoxetine 20 mg Tablet 20 mg PO DAILY lidocaine 5 % adhesive patch,medicated 1 patch topical DAILY Rx Instructions: to right bicep gabapentin 300 mg Capsule 300 mg PO BEDTIME montelukast 10 mg Tablet 10 mg PO DAILY nystatin 100,000 unit/gram Powder 1 applic TOPICAL BID PRN (Reason: Rash) insulin lispro [Humalog U-100 Insulin] 100 unit/mL Solution 3 unit SUBCUT TIDWM ondansetron 4 mg Tablet,Disintegrating 4 mg PO Q8H PRN (Reason: Nausea) fluticasone propionate 50 mcg/actuation [place],Suspension 2 spray INTRANASAL DAILY Rx Instructions: administer into each nostril loratadine 10 mg Tablet 10 mg PO DAILY rosuvastatin 40 mg Tablet 40 mg PO DAILY tiotropium bromide [Spiriva with HandiHaler] 18 mcg Capsule, W/Inhalation Device 1 cap INHALATION DAILY Rx Instructions: puncture 1 cap using device; one dose = 2 inhalations fenofibrate 160 mg Tablet 160 mg PO DAILY budesonide-formoterol 160-4.5 mcg/actuation Hfa Aerosol Inhaler 2 puff INHALATION Q4H PRN (Reason: Wheezing) insulin glargine 100 unit/mL (3 mL) Insulin Pen 22 unit SUBCUT BID magnesium oxide 200 mg magnesium Tablet 200 mg PO DAILY levofloxacin 750 mg tablet 750 mg PO DAILY Qty: 9 0RF Follow up/Referrals: Simone Rodgers MD [Primary Care Provider] - Discharge Data Primary Care Provider: Simone Rodgers
[2023-01-24] MEDS: ERTAPENEM 1 GM in SODIUM CHLORIDE 0.9% 100 ML IV (11:46)
--- NOTE | 2023-01-24 17:14 | CM.DPC ---
DCP Continued: PROGRAM RESEARCH SPECIALIST reviewed EMR. PROGRAM RESEARCH SPECIALIST in frequent contact with provider, Ursula at , and nursing team throughout the day. With PO antibiotics as the dcp, [facility] denied auth for SNF. Provider wants to change antibiotic dcp to IV. August resubmitting auth to [facility]. Provider finalizing IV antibiotic plan at this time. Patient has a PICC. Plan: patient to return to [facility] for IV antibiotics. Pending IV needs and [facility] auth. CM team will continue to follow closely. GA Han
--- NOTE | 2023-01-24 18:14 | PM.PN.1 ---
Subjective Subjective Interval history: 62 F, she has an ESBL E. coli. Previous provider changed from meropenem to macrobid. She has a new leukocytosis today, clinically feels improved but changed back to ertapenem today. Will need another 4 days of therapy for completion of treatment. Exam Vital Signs (past 8 hours): - 01/24/23 10:30 01/24/23 11:00 01/24/23 11:30 Temperature Pulse Rate 74 71 71 Respiratory Rate 26 H 21 27 H Blood Pressure Pulse Oximetry 98 98 94 01/24/23 12:00 01/24/23 12:00 01/24/23 12:30 Temperature Pulse Rate 70 60 Respiratory Rate 29 H 31 H Blood Pressure 105/60 Pulse Oximetry 93 96 01/24/23 12:52 01/24/23 12:52 01/24/23 13:00 Temperature Pulse Rate 69 74 Respiratory Rate 24 28 H Blood Pressure 121/67 Pulse Oximetry 97 96 01/24/23 13:30 01/24/23 14:00 01/24/23 14:00 Temperature 98.7 F Pulse Rate 81 74 Respiratory Rate 28 H 26 H Blood Pressure 121/78 Pulse Oximetry 94 96 01/24/23 14:30 01/24/23 15:00 01/24/23 15:30 Temperature Pulse Rate 74 67 67 Respiratory Rate 22 24 27 H Blood Pressure Pulse Oximetry 96 96 95 01/24/23 16:00 01/24/23 16:00 01/24/23 16:30 Temperature 98.3 F Pulse Rate 67 75 Respiratory Rate 24 27 H Blood Pressure 116/68 Pulse Oximetry 98 92 01/24/23 17:00 Temperature Pulse Rate 77 Respiratory Rate 23 Blood Pressure Pulse Oximetry Fraction of Inspired Oxygen 28 SaO2/FiO2 Ratio 339 Oxygen Delivery Method Nasal Cannula Oxygen Flow Rate 2 Narrative Exam Narrative: GEN: no acute distress, obese on O2 NC HEENT: moist mucous membranes, PERRL NECK: trachea midline, no JVD CV: regular rate and rhythm, no murmurs PULM: clear bilaterally ABD: soft, nontender, protuberant, no organomegaly EXT: warm and well perfused with no edema NEURO: awake, alert, oriented, no focal deficit Objective Labs 01/24/23 04:28 01/24/23 04:28 Labs: Laboratory Results - last 24 hr 01/24/23 04:28 WBC 17.5 H D RBC 3.34 L Hgb 10.8 L Hct 32.8 L MCV 98.2 MCH 32.4 MCHC 33.0 RDW 15.4 H Plt Count 205 Neut % (Auto) 77.7 H Lymph % (Auto) 14.9 L [place] % (Auto) 6.2 Eos % (Auto) 0.8 L Baso % (Auto) 0.4 Neut # (Auto) 25335 H Lymph # (Auto) 2600 [place] # (Auto) 1100 H Eos # (Auto) 100 Baso # (Auto) 100 Sodium 138 Potassium 2.9 L D Chloride 92 L Carbon Dioxide 40 H* BUN 61 H Creatinine 1.23 H Estimated GFR 50 L BUN/Creatinine Ratio 49.6 H Glucose 101 D Calcium 9.9 Magnesium 2.0 NT-Pro-B Natriuret Pep 30031 H PFSH Medical History PONCE (obstructive sleep apnea) Chronic hypoxemic respiratory failure COPD (chronic obstructive pulmonary disease) DM2 (diabetes mellitus, type 2) HTN (hypertension) Thyroiditis Systolic and diastolic CHF, chronic Obesity Surgical History S/P hernia surgery Family History Mother No pertinent past medical history Father No pertinent past medical history Social History household members: other Smoking Status: Former smoker alcohol intake: former Assessment & Plan Assessment & Plan narrative: # likely septic shock -BP down to 88/54 in ED, unclear if sepsis vs cardiogenic initially - blood culture negative however -BNP 2470 on 01/19 and echo with decreased EF of 25 +/-5%... BNP increased to 14, 800 today, increased torsemide to 20 mg daily today, may need to increase more -Levophed started in ED, currently not requiring -hydrocortisone 50 mg IV q.6 for stress dose steroids - discontinued now -midodrine 10mg TID ordered, currently continues -appreciate tele ICU consult and they have signed off currently -antibiotics as noted above. # worsened HFrEF -last EF 30-35%, unclear if in cardiogenic shock as BNP not as high as previously 22k -repeat echo with worsened EF of 20-30%, has known CAD with chronically occluded arterty, recent abnormal stress 06/2022. -will need cardiology f/up on discharge # possible pyelonephritis, POA and active. -CT abd with fat stranding, UA with pyuria -will use meropenem to cover for ESBL and pseudomonas -urine culture with >100k GNB, pending further identification, definitely gram negative bacilli - E coli sensitive to nitrofurantoin but this is not reliable given ESBL. Changed back to meropenem 01/24, complete another 4 days of therapy IV. -likely with some component of colonization, would recommend outpatient evaluation with infectious disease given her recurrent infection. 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 # BLANCA on CKD, improving -creatinine now 1.16 and baseline 1.3 commonly, so now better than baseline # chronic hypoxic respiratory failure -on home 2L O2 - now at baseline # COPD -continue nebs prn # DM2, POA and stable -continue insulin and sliding scale, blood sugar improved with increase to 30 U BID # CKD 3, POA and stable. # morbid obesity, POA. Disposition: transfer to SNF for completion of antibiotics, pending insurance authorization. Patient is a chronic SNF resident as well. Code status is full code. DVT prophylaxis with heparin subcutaneous. Proxy is daughter Roxy.
[2023-01-24] MEDS: ATORVASTATIN 20 MG TABLET 80 MG PO (20:52)
[2023-01-24] MEDS: buPROPion SR 150 MG TAB PO (20:52)
[2023-01-24] MEDS: TRAZODONE 50 MG TABLET PO (20:52)
[2023-01-24] MEDS: GABAPENTIN 300 MG CAPSULE PO (20:53)
[2023-01-24] MEDS: SENNOSIDES 8.6 MG TABLET 17.2 MG PO (20:53)
[2023-01-25] VITALS: BP 112/56; PULSE 69; RESP 24; TEMP 35.9; O2SAT 94
[2023-01-25] MEDS: HEPARIN 5,000 UNIT/ML VIAL 7500 UNIT SUBCUT ×2 (01:18→09:56)
[2023-01-25 04:00] VITALS: BP 111/65; PULSE 62; RESP 23; TEMP 36.1; O2SAT 94
[2023-01-25] MEDS: LEVOTHYROXINE 100 MCG TABLET PO (06:23)
[2023-01-25] MEDS: LEVOTHYROXINE 75 MCG TABLET PO (06:23)
[2023-01-25] MEDS: MIDODRINE HCL 5 MG TABLET 10 MG PO ×2 (06:24→12:11)
[2023-01-25 08:00] VITALS: BP 146/81; PULSE 16; RESP 16; TEMP 36.3; O2SAT 97
[2023-01-25] MEDS: MAGNESIUM OXIDE 400 MG TABLET 200 MG PO (09:54)
[2023-01-25] MEDS: FENOFIBRATE, MICRONIZED 67 MG CAPSULE 201 MG PO (09:54)
[2023-01-25] MEDS: MONTELUKAST 10 MG TABLET PO (09:54)
[2023-01-25] MEDS: ASPIRIN EC 81 MG TABLET PO (09:55)
[2023-01-25] MEDS: TORSEMIDE 10 MG TABLET PO (09:55)
[2023-01-25] MEDS: LORATADINE 10 MG TABLET PO (09:55)
[2023-01-25] MEDS: FLUoxetine 20 MG CAPSULE PO (09:55)
[2023-01-25] MEDS: SODIUM CHLORIDE 0.9% FLUSH 10 ML IV (09:56)
[2023-01-25] MEDS: INSULIN GLARGINE 100 UNIT/ML 3ML PEN 30 UNIT SUBCUT (09:57)
[2023-01-25] MEDS: ERTAPENEM 1 GM in SODIUM CHLORIDE 0.9% 100 ML IV (10:01)
[2023-01-25] MEDS: ALBUTEROL/IPRATROPIUM 3 ML AMPUL INH (11:21)
[2023-01-25 11:22] VITALS: PULSE 69; RESP 20; O2SAT 97
[2023-01-25 12:00] VITALS: BP 134/75; PULSE 74; RESP 24; TEMP 36.4; O2SAT 97
--- NOTE | 2023-01-25 13:46 | P.DS_ITS ---
History of Present Illness History of Present Illness Date Patient Seen: 01/25/23 Time Patient Seen: 13:46 Chief complaint: fall r knee pain Narrative: Per admitting provider, Mary Carmen Jett is a 62yo F with PMH of DM2, COPD on chronic 2L O2, HFrEF of 30-35%, morbid obesity, PONCE, HTN, hypothyroidism, frequent UTI's and depression who presents with weakness and shock. Patient apparently slid off her bed at [facility] due to weakness and found to have BP of 80's sytolic. She states when she left the hospital a week ago she never really felt like she got better. Says she has been weak since then. Notes a sore throat but no cough, congestion or runny nose. Denies dysuria or suprapubic pain. In the ED patient had BP of 83/52 and given 2L NS boluses without much improvement. Started on levophed at 0.025mcg and BP jumped to 120's sytolic. Blood cultures taken and UA noted to have pyuria. She was taking levaquin after last hospitalization a week ago for E. coli bacteremia and UTI. She denies CP, SOB, headache, fever/chills, abd pain or diarrhea. 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 Hospital Course: This is a 62 year old female admitted with septic shock due to ESBL urinary tract infection. She needed to be started on levophed in the emergency room but was quickly weaned off. As a result of sepsis she developed an acute metabolic encephalopathy and BLANCA. Repeat echo showed a slight decrease in her EF to 20- 30%, but may be due to her septic shock. 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 Urine cultures as noted above did grow an ESBL organism. She was put on macrobid based on sensitivity profile by one provider, but this was changed back to Ertapenem given ESBL organism. With hemodynamic improvement and return to baseline renal function she was discharged back to SNF to complete 7 day course of treatment with carbapenem. I do recommend outpatient follow up with infectious disease given her frequency of UTIs with ESBL organism, she is likely colonized. She did require midodrine still upon discharge, with improving blood pressures. This should be weaned off at SNF as tolerated with her blood pressures, and resumption of appropriate medications for systolic heart failure if hypertensive. Time Spent with Patient Time spent: Greater than 30 minutes Exam Vital Signs (past 8 hours): - 01/25/23 08:00 01/25/23 11:22 01/25/23 12:00 Temperature 97.4 F L 97.6 F Pulse Rate 16 L 69 74 Respiratory Rate 16 20 24 Blood Pressure 146/81 H 134/75 Pulse Oximetry 97 97 97 Oxygen Delivery Method Nasal Cannula Oxygen Flow Rate 3 2 3 Fraction of Inspired Oxygen 28 SaO2/FiO2 Ratio 339 Oxygen Delivery Method Nasal Cannula Oxygen Flow Rate 3 Narrative Exam Narrative: GEN: no acute distress, obese on O2 NC HEENT: moist mucous membranes, PERRL NECK: trachea midline, no JVD CV: regular rate and rhythm, no murmurs PULM: clear bilaterally ABD: soft, nontender, protuberant, no organomegaly EXT: warm and well perfused with no edema NEURO: awake, alert, oriented, no focal deficit Objective Labs 01/24/23 04:28 01/24/23 04:28 [facility] Medical History PONCE (obstructive sleep apnea) Chronic hypoxemic respiratory failure COPD (chronic obstructive pulmonary disease) DM2 (diabetes mellitus, type 2) HTN (hypertension) Thyroiditis Systolic and diastolic CHF, chronic Obesity Surgical History S/P hernia surgery Family History Mother No pertinent past medical history Father No pertinent past medical history Social History household members: other Smoking Status: Former smoker alcohol intake: former Discharge Plan Discharge Plan Patient Disposition: SNF Transfer to: [facility] Provider Discharge Comment: 62 F with multiple medical issues, resident of [facility], admitted with likely pyelonephritis, likely septic shock. Improved with antibiotics now returned to baseline. Will need another 3 days of ertapenem for completion of treatment for ESBL E. coli in her urine again. Given frequency of ESBL E. coli infections, recommend outpatient referral to Infectious disease. Also needs cardiology follow up as an outpatient with worsening EF noted on echo, though that may be due to septic shock as well. Patient has been on midodrine, continue to wean as tolerated over the coming days. Consider cessation if hypertensive at facility. Discharge orders & Medications Prescriptions: New midodrine 5 mg Tablet 5 mg PO 0600,1200,1800 Qty: 60 0RF ertapenem 1 gram Recon Soln 1 g IV Q24H 3 Days Qty: 3 0RF Continued albuterol sulfate 90 mcg/actuation HFA aerosol inhaler 4 puff INHALATION Q4H PRN (Reason: Shortness Of Breath Or Wheezing) levothyroxine 175 mcg tablet 175 mcg PO DAILY potassium chloride 10 mEq tablet extended release 10 meq PO DAILY bupropion HCl 150 mg tablet sustained-release 12 hr 150 mg PO BEDTIME sennosides [senna] 8.6 mg tablet 17.2 mg PO BEDTIME acetaminophen [Tylenol] 325 mg Tablet 650 mg PO TID trazodone 50 mg tablet 50 mg PO BEDTIME aspirin 81 mg Tablet,Delayed Release (Dr/Ec) 81 mg PO DAILY carvedilol 3.125 mg tablet 3.125 mg PO BID cyanocobalamin (vitamin B-12) 500 mcg Tablet 500 mcg PO DAILY meclizine 25 mg tablet 25 mg PO Q8HR PRN (Reason: Dizziness) ferrous sulfate 325 mg (65 mg iron) Tablet 325 mg PO DAILY fluoxetine 20 mg Tablet 20 mg PO DAILY lidocaine 5 % adhesive patch,medicated 1 patch topical DAILY Rx Instructions: to right bicep gabapentin 300 mg Capsule 300 mg PO BEDTIME montelukast 10 mg Tablet 10 mg PO DAILY nystatin 100,000 unit/gram Powder 1 applic TOPICAL BID PRN (Reason: Rash) insulin lispro [Humalog U-100 Insulin] 100 unit/mL Solution 3 unit SUBCUT TIDWM ondansetron 4 mg Tablet,Disintegrating 4 mg PO Q8H PRN (Reason: Nausea) fluticasone propionate 50 mcg/actuation [place],Suspension 2 spray INTRANASAL DAILY Rx Instructions: administer into each nostril loratadine 10 mg Tablet 10 mg PO DAILY rosuvastatin 40 mg Tablet 40 mg PO DAILY tiotropium bromide [Spiriva with HandiHaler] 18 mcg Capsule, W/Inhalation Device 1 cap INHALATION DAILY Rx Instructions: puncture 1 cap using device; one dose = 2 inhalations fenofibrate 160 mg Tablet 160 mg PO DAILY budesonide-formoterol 160-4.5 mcg/actuation Hfa Aerosol Inhaler 2 puff INHALATION Q4H PRN (Reason: Wheezing) insulin glargine 100 unit/mL (3 mL) Insulin Pen 22 unit SUBCUT BID magnesium oxide 200 mg magnesium Tablet 200 mg PO DAILY Changed torsemide 10 mg tablet 20 mg PO DAILY Qty: 60 0RF Discontinued levofloxacin 750 mg tablet 750 mg PO DAILY Qty: 9 0RF Follow up/Referrals: Simone Rodgers MD [Primary Care Provider] - Discharge Health Status Multidrug resistant organism: Other Precautions: [place] Diet/Activity/Treatments Diet: Diet as Tolerated and Carb-consistent/Diabetic Liquid consistency: Normal/Thin Food texture: Regular Activity: as tolerated, no restrictions Skin/Wound/Dressing Care Dressing: PICC line L arm. Special Rehabilitation Services Reason for rehabilitation: Other Visit Report/Discharge Packet Instructions: DI for Sepsis -- Adult, Ertapenem Injection, Midodrine Stand Alone Forms: Patient Portal/API Discharge Data Primary Care Provider: Simone Rodgers Quality MIPS - [place] The patient has current or prior documentation of left ventricular ejection fraction (LVEF) less than or equal to 40%, or moderate or severely depressed left ventricular systolic function.: Yes A. The patient was prescribed or already taking an Angiotensin-Converting Enzyme (ALONDRA) Inhibitor, or Angiotensin Receptor Saman (ARB).: No B. The patient was prescribed or already taking a beta-saman. [If Yes to Both A & B, STOP here]: Yes Patient not prescribed/taking ALONDRA or ARB for medical/patient reason(s) including (ex: allergy, intolerance, contraindication).: YES, hypotension
--- NOTE | 2023-01-25 14:20 | CM.DPC ---
DCP Discharge SNF Per MD, pt's IV-Abx switched to Ertapenum for likely another 3 days and PICC already had been placed and medically stable to d/c to SNF today. SW spoke to admissions at [facility] and confirmed they just obtained [facility] auth and can accept pt today with transport around 1500. PASRR completed. ABILIO Jaeger kindly faxed signed med list/scripts, MD JACKIE orders to [facility] to review and updated irrigator sprinkling system and RN. Plan: Patient to d/c back to [facility] today under [facility] auth before transitioning to SNF [facility] care again. [place]
--- NOTE | 2023-01-25 14:52 | PC.NURSE ---
Called Report to Ashia ONEILL at [facility]. Answered all questions and Pt is ready for d/c via w/c transferred via [facility] with all belongings.
== END 2023-01-25 15:27 | DRG 871 ==
LOC: ED 16:17 → AC 16:56 → ICU 17:17
PROVIDERS: Internal Medicine; Internal Medicine Pulmonary Disease; Neuromusculoskeletal Medicine, Sports Medicine; Admitting Provider Student in an Organized Health Care Education/Training Program; Emergency Provider Emergency Medicine; PCP Family Medicine; Referring Provider Emergency Medicine; Visit Provider Student in an Organized Health Care Education/Training Program
DX: A41.9 Sepsis, unspecified organism (principal); R65.21 Severe sepsis with septic shock; N17.9 Acute kidney failure, unspecified; J96.11 Chronic respiratory failure with hypoxia; I13.0 Hypertensive heart and chronic kidney disease with heart failure and stage 1 through stage 4 chronic kidney disease, or unspecified chronic kidney disease; I50.20 Unspecified systolic (congestive) heart failure; N12 Tubulo-interstitial nephritis, not specified as acute or chronic; J44.9 Chronic obstructive pulmonary disease, unspecified; E11.22 Type 2 diabetes mellitus with diabetic chronic kidney disease; N18.30 Chronic kidney disease, stage 3 unspecified; E03.9 Hypothyroidism, unspecified; B96.20 Unspecified Escherichia coli [E. coli] as the cause of diseases classified elsewhere; I25.10 Atherosclerotic heart disease of native coronary artery without angina pectoris; G47.33 Obstructive sleep apnea (adult) (pediatric); Z79.4 Long term (current) use of insulin; Z99.81 Dependence on supplemental oxygen; Z87.891 Personal history of nicotine dependence
CPT/HCPCS: 36415; 36569; 36592; 51701; 71045; 71250; 74177; 76830; 76856; 80048; 80053; 81001; 82962; 83605; 83735; 83880; 84145; 84443; 84484; 85025; 85610; 86140; 87040; 87077; 87086; 87186; 87797; 93005; 93306; 94640; 94660; 94762; 96365; 99233; 99285; 99291; J1335; J1644; J1720; J1815; J2185; J2543; Q9957

== ENCOUNTER 2023-05-20 18:20 | Inpatient (IN) | payer OTHER, MEDICAID, SELFPAY ==
[2022-05-26 19:34] VITALS: RESP 0
[2023-01-10 07:42] VITALS: PULSE 92; RESP 31; O2SAT 94
[2023-01-19 20:02] VITALS: BMI 51.8
[2023-05-20] VITALS (20 sets, daily range): BP systolic 85–130; BP diastolic 52–68; PULSE 63–152; RESP 18–36; TEMP 37.1; O2SAT 87–99
--- NOTE | 2023-05-20 18:31 | DI.RAD.S_ITS ---
PROCEDURE: XR CHEST 1V INDICATIONS: weakness, positive covid TECHNIQUE: One view of the chest was acquired. COMPARISON: [facility], CR, XR CHEST 1V, 01/21/2023, 11:15. [facility], CR, XR CHEST 1V, 01/23/2023, 13:15. FINDINGS: Surgical changes and devices: None. Lungs and pleura: Diffuse interstitial prominence. Increased blunting of the right costophrenic angle and possibly the left costophrenic angle suggestive of small bilateral pleural effusions. No pneumothorax. Bilateral perihilar airway thickening. No focal consolidation. Mediastinum: Mediastinal contours appear normal. Heart size is enlarged. Bones and chest wall: No suspicious bony lesions. Overlying soft tissues appear unremarkable. IMPRESSION: Diffuse interstitial prominence with suspected small bilateral pleural effusions. Mild perihilar airway thickening. Findings may represent an infectious or inflammatory process compatible with reported history of COVID infection. However, early pulmonary edema/CHF may have a similar appearance. Dictated by: Jignesh Pool M.D. on 05/20/2023 at 19:15 Approved by: Jignesh Pool M.D. on 05/20/2023 at 19:17
--- NOTE | 2023-05-20 18:34 | ED.GENADULT ---
HPI - General Adult General Chief complaint: Weakness Stated complaint: Gen weakness,hyperglycemia,+COVID 1 wk ago Time Seen by Provider: 05/20/23 18:24 Source: patient, EMS, RN notes reviewed and old records reviewed Mode of arrival: EMS Limitations: no limitations History of Present Illness HPI narrative: 62-year-old female with history of morbid obesity, PONCE, COPD on 2 L nasal cannula, CHF, diabetes type 2 who presents with complaint of weakness with recent COVID infection verified in the past week. [facility] in a [facility] facility with current outbreak. Patient states that she has felt generally weak. She does not ambulate on her own, she currently requires a lift assist. She states they are working on for or being able to stand and pivot but she has not been able to achieve goal and a long time. Patient does not appreciate any other specific lateralizing weakness. No recent fevers. No headache. No chest pain, no shortness of breath. She has a cough. She describes it as nonproductive. No nausea, no vomiting. She states she has been constipated but passing gas regularly. Denies back abdominal or flank pain. Denies any dysuria urgency or frequency. Denies any swelling in her extremities. Patient was noted to have a glucose of 490 in field. No known drug allergies. Former smoker, no recent alcohol, no recreational drugs. Related Data Home Medications Medication Instructions Recorded Confirmed acetaminophen 325 mg tablet 650 mg PO TID 05/25/22 05/20/23 (Tylenol) aspirin 81 mg tablet,delayed 81 mg PO DAILY 05/25/22 05/20/23 release budesonide-formoterol HFA 160 2 puff inhalation Q4H PRN Wheezing 05/25/22 05/20/23 mcg-4.5 mcg/actuation aerosol inhaler bupropion HCl 150 mg tablet,12 hr 150 mg PO BEDTIME 05/25/22 05/20/23 sustained-release carvedilol 3.125 mg tablet 3.125 mg PO BID 05/25/22 05/20/23 cyanocobalamin (vitamin B-12) 500 500 mcg PO DAILY 05/25/22 05/20/23 mcg tablet fenofibrate 160 mg tablet 160 mg PO DAILY 05/25/22 05/20/23 fluoxetine 20 mg tablet 20 mg PO DAILY 05/25/22 05/20/23 fluticasone propionate 50 2 spray intranasal DAILY 05/25/22 05/20/23 mcg/actuation nasal spray,suspension gabapentin 300 mg capsule 300 mg PO BEDTIME 05/25/22 05/20/23 insulin glargine 100 unit/mL (3 22 unit SUBCUT BID 05/25/22 05/20/23 mL) subcutaneous pen insulin lispro 100 unit/mL See Protocol SUBCUT TIDWM 05/25/22 05/20/23 subcutaneous solution (Humalog U-100 Insulin) loratadine 10 mg tablet 10 mg PO DAILY 05/25/22 05/20/23 magnesium oxide 200 mg PO DAILY 05/25/22 05/20/23 meclizine 25 mg tablet 25 mg PO Q8HR PRN Dizziness 05/25/22 05/20/23 montelukast 10 mg tablet 10 mg PO DAILY 05/25/22 05/20/23 nystatin 100,000 unit/gram topical 1 applic topical BID PRN Rash 05/25/22 05/20/23 powder ondansetron 4 mg disintegrating 4 mg PO Q8H PRN Nausea 05/25/22 05/20/23 tablet rosuvastatin 40 mg tablet 40 mg PO DAILY 05/25/22 05/20/23 sennosides 8.6 mg tablet (senna) 17.2 mg PO BEDTIME 05/25/22 05/20/23 tiotropium bromide 18 mcg capsule 1 cap inhalation DAILY 05/25/22 05/20/23 with inhalation device (Spiriva with HandiHaler) trazodone 50 mg tablet 25 mg PO BEDTIME 05/25/22 05/20/23 albuterol sulfate 90 mcg/actuation 4 puff inhalation Q4H PRN 08/15/22 05/20/23 aerosol inhaler Shortness Of Breath Or Wheezing levothyroxine 175 mcg tablet 175 mcg PO DAILY 08/15/22 05/20/23 potassium chloride 10 mEq 20 meq PO DAILY 08/15/22 05/20/23 tablet,extended release midodrine 5 mg tablet 10 mg PO BID 05/20/23 05/20/23 molnupiravir 800 mg BID 05/20/23 05/20/23 prednisone 40 mg DAILY 05/20/23 05/20/23 torsemide 20 mg DAILY 05/20/23 05/20/23 torsemide 10 mg tablet 10 mg PO BEDTIME 05/20/23 05/20/23 Allergies Allergy/AdvReac Type Severity Reaction Status Date / Time No Known Drug Allergies Allergy Verified 05/25/22 12:43 Review of Systems Review of Systems ROS Unobtainable: All systems reviewed & are unremarkable except as noted in HPI and below Patient History Medical History PONCE (obstructive sleep apnea) Chronic hypoxemic respiratory failure COPD (chronic obstructive pulmonary disease) DM2 (diabetes mellitus, type 2) HTN (hypertension) Thyroiditis Systolic and diastolic CHF, chronic Obesity Surgical History S/P hernia surgery Family History Mother No pertinent past medical history Father No pertinent past medical history Social History household members: other Smoking Status: Former smoker alcohol intake: former Smoking Status: Former smoker alcohol intake frequency: other Substance Use Type: does not use Exam Narrative Exam Narrative: GEN: Obese female, alert and oriented x 3, patient appears to be in mild distress. Normal speech. HEENT: Atraumatic, pupils are equal round reactive to light, extraocular movements are intact, nares are clear, there is no conjunctival pallor. Throat is clear without any exudates, erythema, tonsillar enlargement or uvular deviation, no facial droop. HEART: Regular rate and rhythm without murmur, clicks, rubs. Pulses are equal in upper and lower extremities LUNGS:Lungs clear to auscultation, no wheezes, rales, crackles, chest moves symmetrically, no tachypnea or accessory muscle use. ABD:bowel sounds normal, soft, non-tender, no guarding, rebound, rigidity, no masses noted, no hepatosplenomegaly :No CVA tenderness MSCL: Non-tender, no muscle atrophy, patient has no drift 5/5 upper body muscle strength. Patient is able to lift both legs off the bed for 5 seconds without issue, no lateralizing weakness. NEURO:CN 2-12 intact, sensation normal SKIN: No rash, erythema or other skin changes noted. Initial Vital Signs Initial Vital Signs: Vital Signs Pulse Rate 71 05/20/23 18:26 Pulse Oximetry 92 05/20/23 18:26 Course Orders Ordered: ED Orders 05/20/23 21:18 Trop I [Troponin I] Stat 05/20/23 22:50 ABG [Arterial Blood Gas] Stat Acetaminophen (Acetaminophen 325 Mg Tablet) 650 mg PO Q6H PRN PRN Reason: Fever/Mild Pain (1-3) Albuterol (Albuterol Hfa Mdi 60 Puff/8 Gm Inhaler) 4 puff INH Q4H PRN PRN Reason: Shortness Of Breath Or Wheezing Albuterol (Albuterol 2.5 Mg/3 Ml Neb (Adult)) 2.5 mg INH Q4HRWA JAY JAY Albuterol (Albuterol 2.5 Mg/3 Ml Neb (Adult)) 2.5 mg INH Q2HR PRN PRN Reason: Shortness Of Breath Or Wheezing Aspirin (Aspirin Ec 81 Mg Tablet) 81 mg PO DAILY JAY JAY Budesonide (Budesonide 0.5 Mg/2 Ml Neb) 0.5 mg INH RTBID JAY JAY Enoxaparin Sodium (Enoxaparin 40 Mg/0.4 Ml Syringe) 40 mg SUBCUT DAILY [facility] Dextrose (D10w) 100 mls @ 1,200 mls/hr IV PRN PRN PRN Reason: Hypoglycemia Remdesivir 200 mg/ Sodium (Chloride) 250 mls @ 250 mls/hr IV NOW ONE Stop: 05/21/23 05:49 Insulin Human Lispro (Insulin Lispro 100 Unit/Ml 3ml Vial) 0 unit SUBCUT ACHS [facility]; Protocol Levothyroxine Sodium (Levothyroxine 50 Mcg Tablet) 175 mcg PO 0600 [facility] Last Admin: 05/21/23 05:16 Dose: 175 mcg Documented By: LONNIE Midodrine (Midodrine Hcl 5 Mg Tablet) 10 mg PO BID [facility] Last Admin: 05/21/23 04:00 Dose: 10 mg Documented By: LONNIE Naloxone HCl (Naloxone 0.4 Mg/Ml Vial) 0.2 mg IV Q2MIN PRN PRN Reason: Opiate Reversal Ondansetron HCl (Ondansetron 4 Mg/2 Ml Inj) 4 mg IV Q8HR PRN PRN Reason: Nausea And Vomiting Prednisone (Prednisone 20 Mg Tablet) 40 mg PO DAILY [facility] Discontinued Medications Sodium Chloride (Normal Saline 0.9%) 1,000 mls @ 1,000 mls/hr IV BOLUS ONE Stop: 05/20/23 19:30 Last Infusion: 05/20/23 20:34 Dose: Infused Documented By: Admin: 05/20/23 19:15 Dose: 1,000 mls/hr Documented By: PAVEL Vital Signs Vital signs: Vital Signs - 8 hr 05/20/23 22:00 05/20/23 22:30 05/20/23 22:30 Pulse Rate 63 71 Respiratory Rate 26 H 25 H Blood Pressure 105/63 Pulse Oximetry 88 L 98 Oxygen Delivery Method 05/20/23 23:00 05/20/23 23:00 05/20/23 23:01 Pulse Rate 72 73 Respiratory Rate 23 32 H Blood Pressure 85/53 L Pulse Oximetry 97 94 Oxygen Delivery Method 05/20/23 23:01 05/20/23 23:04 05/20/23 23:04 Pulse Rate 152 H Respiratory Rate 31 H Blood Pressure 85/53 L 93/52 L Pulse Oximetry 87 L Oxygen Delivery Method 05/20/23 23:05 05/20/23 23:05 05/20/23 23:30 Pulse Rate 129 H Respiratory Rate 36 H Blood Pressure 103/55 L 92/58 L Pulse Oximetry 87 L Oxygen Delivery Method 05/20/23 23:30 05/21/23 00:00 05/21/23 00:30 Pulse Rate 68 55 L Respiratory Rate 26 H 19 Blood Pressure 80/52 L Pulse Oximetry 92 94 Oxygen Delivery Method BiPAP 05/21/23 00:30 05/21/23 00:33 05/21/23 00:33 Pulse Rate 54 L 53 L Respiratory Rate 25 H 24 Blood Pressure 90/63 Pulse Oximetry 96 88 L Oxygen Delivery Method BiPAP Medical Decision Making Lab Data 05/20/23 19:15 05/20/23 19:15 Labs: Lab Results 05/20/23 05/20/23 05/20/23 Range/Units 18:47 18:55 19:15 WBC 4.4 L (4.5-11.0) X10^3/uL RBC 4.12 (4.0-5.2) X10^6/uL Hgb 12.6 (12.0-16.0) g/dL Hct 39.3 (36-46) % MCV 95.3 (80-100) fL MCH 30.7 (26-34) PG MCHC 32.2 (30-36) % RDW 16.9 H (11.6-14.8) % Plt Count 153 (150-400) X10^3/uL Neut % (Auto) 75.8 H (50-75) % Lymph % (Auto) 17.5 L (25-40) % Sanders % (Auto) 6.5 (3-14) % Eos % (Auto) 0.0 L (2-4) % Baso % (Auto) 0.2 (0-2) % Neut # (Auto) 3300 (6193-0105) /uL Lymph # (Auto) 800 L (2612-4852) /uL Sanders # (Auto) 300 (0-900) /uL Eos # (Auto) 0 (0-450) /uL Baso # (Auto) 0 (0-100) /uL ABG Sample Site ABG pH (7.35-7.45) ABG pCO2 (35-45) mmHg ABG pO2 (80-100) mmHg ABG HCO3 (23-27) mmol/L ABG Total CO2 (23-27) mmol/L ABG O2 Saturation (95-100) % ABG Base Excess (-2-3) mmol/L VBG pH (7.33-7.43) VBG pCO2 (45-50) mmHg VBG pO2 (35-45) mmHg VBG HCO3 (24-28) mmol/L VBG Total CO2 (24-29) mmol/L VBG O2 Saturation (70-75) % VBG Base Excess (0-4) mmol/L FiO2 Sodium 141 (137-145) mmol/L Potassium 4.4 (3.4-5.1) mmol/L Chloride 97 L (98-107) mmol/L Carbon Dioxide 37 H (22-32) mmol/L BUN 64 H (7-17) mg/dL Creatinine 1.87 H (0.52-1.04) mg/dL Estimated GFR 30 L (>60) mL/min BUN/Creatinine Ratio 34.2 H (6-22) Glucose 378 H (80-110) mg/dL Lactate 0.9 (0.7-2.1) mmol/L Calcium 9.3 (8.4-10.2) mg/dL Total Bilirubin 0.6 (0.2-1.3) mg/dL AST 39 H (14-36) IU/L ALT 21 (<35) IU/L Alkaline Phosphatase 46 (38-126) U/L Total Creatine Kinase 118 (30-135) U/L Troponin I 0.088 H (0.01-0.034) ng/mL NT-Pro-B Natriuret Pep 94893 H (<125) pg/mL Total Protein 7.8 (6.3-8.2) g/dL Albumin 3.9 (3.5-5.0) g/dL Globulin 3.9 (1.7-4.1) g/dL Albumin/Globulin Ratio 1.0 (1.0-2.8) Lipase 52 (23-300) U/L Procalcitonin 0.49 (<0.5) ng/mL Urine Color Yellow Urine Appearance Clear Urine pH 5.0 (4.5-8.0) Ur Specific Lane 1.020 (1.000-1.035) Urine Protein 1+ H (Negative) Urine Glucose (UA) 2+ H (Negative) g/dL Urine Ketones Negative (NEGATIVE) Urine Occult Blood 1+ H (Negative) Urine Nitrate Negative (Negative) Urine Bilirubin Negative (NEGATIVE) Urine Urobilinogen 0.2 (0.2) E.U./dL Ur Leukocyte Esterase Negative (NEGATIVE) Urine RBC 0-1/hpf (0-5/HPF) Urine WBC 0-1/hpf (0-5/HPF) Ur Squamous Epith Cells 1-5 /hpf (0-5/HPF) Urine Bacteria Occasional (0-1) (None) Granular Casts 0-1/lpf (None) Ur Culture Indicated? Cult not indicated Vol Urine Centrifuged Low vol <10ml (spun) A Ketones 0.93 H (<0.27) mmol/L SARS-CoV-2 (PCR) Positive H (Negative) 05/20/23 05/20/23 05/20/23 Range/Units 19:18 21:18 22:50 WBC (4.5-11.0) X10^3/uL RBC (4.0-5.2) X10^6/uL Hgb (12.0-16.0) g/dL Hct (36-46) % MCV (80-100) fL MCH (26-34) PG MCHC (30-36) % RDW (11.6-14.8) % Plt Count (150-400) X10^3/uL Neut % (Auto) (50-75) % Lymph % (Auto) (25-40) % Sanders % (Auto) (3-14) % Eos % (Auto) (2-4) % Baso % (Auto) (0-2) % Neut # (Auto) (9358-8422) /uL Lymph # (Auto) (5831-2285) /uL Sanders # (Auto) (0-900) /uL Eos # (Auto) (0-450) /uL Baso # (Auto) (0-100) /uL ABG Sample Site Right radial ABG pH 7.22 L* (7.35-7.45) ABG pCO2 88.2 H* (35-45) mmHg ABG pO2 151 H (80-100) mmHg ABG HCO3 36 H (23-27) mmol/L ABG Total CO2 39 H (23-27) mmol/L ABG O2 Saturation 99 (95-100) % ABG Base Excess 8.0 H (-2-3) mmol/L VBG pH 7.30 L (7.33-7.43) VBG pCO2 77.9 H (45-50) mmHg VBG pO2 41 (35-45) mmHg VBG HCO3 39 H (24-28) mmol/L VBG Total CO2 41 H (24-29) mmol/L VBG O2 Saturation 68 L (70-75) % VBG Base Excess 12.0 H (0-4) mmol/L FiO2 32 36 Sodium (137-145) mmol/L Potassium (3.4-5.1) mmol/L Chloride (98-107) mmol/L Carbon Dioxide (22-32) mmol/L BUN (7-17) mg/dL Creatinine (0.52-1.04) mg/dL Estimated GFR (>60) mL/min BUN/Creatinine Ratio (6-22) Glucose (80-110) mg/dL Lactate (0.7-2.1) mmol/L Calcium (8.4-10.2) mg/dL Total Bilirubin (0.2-1.3) mg/dL AST (14-36) IU/L ALT (<35) IU/L Alkaline Phosphatase (38-126) U/L Total Creatine Kinase (30-135) U/L Troponin I 0.073 H (0.01-0.034) ng/mL NT-Pro-B Natriuret Pep (<125) pg/mL Total Protein (6.3-8.2) g/dL Albumin (3.5-5.0) g/dL Globulin (1.7-4.1) g/dL Albumin/Globulin Ratio (1.0-2.8) Lipase (23-300) U/L Procalcitonin (<0.5) ng/mL Urine Color Urine Appearance Urine pH (4.5-8.0) Ur Specific Lane (1.000-1.035) Urine Protein (Negative) Urine Glucose (UA) (Negative) g/dL Urine Ketones (NEGATIVE) Urine Occult Blood (Negative) Urine Nitrate (Negative) Urine Bilirubin (NEGATIVE) Urine Urobilinogen (0.2) E.U./dL Ur Leukocyte Esterase (NEGATIVE) Urine RBC (0-5/HPF) Urine WBC (0-5/HPF) Ur Squamous Epith Cells (0-5/HPF) Urine Bacteria (None) Granular Casts (None) Ur Culture Indicated? Vol Urine Centrifuged Ketones (<0.27) mmol/L SARS-CoV-2 (PCR) (Negative) Point of Care Testing Glucose POC 346 Point of care testing: Point of Care Testing Glucose POC 346 Imaging Data Chest x-ray: Radiologist's Impression: Close Chest X-Ray (Signed) Jignesh Pool - 05/20/23 Launch?Image [address] [address] XRay Report Signed Patient: Mary Carmen Jett MR#: [id number] : 1960 Acct:[id number] Age/Sex: 62 / F Date of Service: 05/20/23 Loc: ED Accession Number: [id number] Procedure: XR chest 1V Ordering Provider: Jayne Muhammad D.O. PROCEDURE: XR CHEST 1V INDICATIONS: weakness, positive covid TECHNIQUE: One view of the chest was acquired. COMPARISON: [facility], CR, XR CHEST 1V, 01/21/2023, 11:15. [facility], CR, XR CHEST 1V, 01/23/2023, 13:15. FINDINGS: Surgical changes and devices: None. Lungs and pleura: Diffuse interstitial prominence. Increased blunting of the right costophrenic angle and possibly the left costophrenic angle suggestive of small bilateral pleural effusions. No pneumothorax. Bilateral perihilar airway thickening. No focal consolidation. Mediastinum: Mediastinal contours appear normal. Heart size is enlarged. Bones and chest wall: No suspicious bony lesions. Overlying soft tissues appear unremarkable. IMPRESSION: Diffuse interstitial prominence with suspected small bilateral pleural effusions. Mild perihilar airway thickening. Findings may represent an infectious or inflammatory process compatible with reported history of COVID infection. However, early pulmonary edema/CHF may have a similar appearance. Dictated by: Jignesh Pool M.D. on 05/20/2023 at 19:15 Approved by: Jignesh Pool M.D. on 05/20/2023 at 19:17 ECG Data Attestation: I personally reviewed and interpreted this ECG as follows: Interpretation: Sinus rhythm premature atrial complexes rate of 67 [place] 190 QRS of 110 QTC 553. Junctional depression probably normal. Patient has prior from 01/19/2023 V5 shows baby new depression but otherwise appears similar EKG 2. Sinus rhythm premature atrial complexes left axis deviation rate of 78 [place] 200 QRS of 140 QTC 449. Patient does not have any acute ST elevation. ST segments appears similar. [facility] Narrative Medical decision making narrative: This is a 62-year-old female sent from outside facility for generalized weakness although patient states her strength seems to be overall at baseline she feels a little bit more weak but they normally use a lift assist to move her she is moving her extremities normally was noted to be hyperglycemic in the field been tested COVID positive in the past week. Plan for labs. White count of 4.4 hemoglobin of 12 platelets of 153. INR is 1.2. Creatinine slightly elevated from prior at 1.87 electrolytes are otherwise appropriate with sodium 1414.4 potassium but chloride 97 CO2 is 37 with a BUN of 64 likely dehydration. Glucose is 378 lactate-0.9 with an AST of 39 but otherwise reassuring LFTs negative procalcitonin. VBG showed a pH of 7 3 create a pCO2. Troponin is 0.088 and trended down on repeat was 3 can be seen elevated in setting of COVID infection and acute on chronic kidney disease. BNP 10,100. Chest x-ray chest x-ray shows diffuse prominence suspected small bilateral pleural effusions perihilar airway thickening compatible with COVID infection versus early edema. EKG edema shows sinus complex rate of 67 [place] 190 QRS of [address] No acute [address] elevation depression. Urine urine shows protein, 2+ glucose 1+ blood, 1-5 squamous but no other signs of infection. Repeat glucose in the 350 rate Patient did have a L of fluid did have some hypoxia is on 2-4 L nasal cannula at her facility. RT had turned her up to a 5 she became quite sleepy and would awaken to sternal rub and talk but ABG was performed and shows Patient is 7.27 pCO2 of 88 with a PO2 of 151 bicarb of 35. Patient does talk to me so was placed on BiPAP suspect hypercapnic respiratory failure. Possibly related to COVID. Patient placed on BiPAP. Has had some improvement in mentation she is still sleepy but no responds to just verbal stimuli. Repeat was pH of 7.29 with a pCO2 of 70 P yd PO2 was appropriate RT is on 24%. We did readjust her mask as she has had some issues with fit secondary to body habitus. RT plans to repeat ABG and another hour. Spoke with Dr. Dietz, hospitalist who accepts for inpatient. ICU as patient is on bipap, mentation improving. Discussed blood pressure has been soft. Discharge Plan Departure Patient Disposition: Admitted As Inpatient Clinical Impression: COVID-19 virus infection, Dehydration, Acute hypercapnic respiratory failure Admit Date/Time: 05/21/23 00:56 Admit Provider: Dex Dietz
[2023-05-20 19:06] LABS: COVID19 -Nasal RAPID POSITIVE (Negative)
[2023-05-20 19:12] LABS: Appearance Urine UA CLEAR; Bilirubin Urine UA NEGATIVE (NEGATIVE); Color Urine UA YELLOW; Glucose Urine UA 2+ g/dL (Negative); Ketones Urine UA NEGATIVE (NEGATIVE); Leukocyte Esterase Urine UA NEGATIVE (NEGATIVE); Nitrite Urine UA NEGATIVE (Negative); Occult Blood Urine UA 1+ (Negative); Protein Urine UA 1+ (Negative); Urobilinogen Urine UA 0.2 E.U./dL (0.2)
[2023-05-20] MEDS: SODIUM CHLORIDE 0.9% 1,000 ML 1000 ML IV (19:15)
--- NOTE | 2023-05-20 19:15 | PC.NURSE ---
pt lying on stretcher, awake, alert and oriented, labs in progress
[2023-05-20 19:17] LABS: Bacteria Urine Occasional (0-1); Granular Casts Urine 0-1/LPF; RBC Urine 0-1/HPF (0-5/HPF); Squamous Epithelial Cell Urine 1-5 /HPF (0-5/HPF); Urine Volume Low Vol <10mL (spun); WBC Urine 0-1/HPF (0-5/HPF)
[2023-05-20 19:18] LABS: Culture Indicated Urine Cult Not Indicated
[2023-05-20 19:34] LABS: Add Manual Diff / Slide Review NO; Basophils Absolute Auto 0 /uL (0-100); Basophils Percent Auto 0.2 % (0-2); Eosinophils Absolute Auto 0 /uL (0-450); Hematocrit 39.3 % (36-46); Hemoglobin 12.6 g/dL (12.0-16.0); Lymphocytes Absolute Auto 800 /uL (1100-4500); Lymphocytes Percent Auto 17.5 % (25-40); Mean Corpuscular HGB Conc 32.2 % (30-36); Mean Corpuscular Hemoglobin 30.7 PG (26-34); Mean Corpuscular Volume 95.3 fL (80-100); Monocytes Absolute Auto 300 /uL (0-900); Monocytes Percent Auto 6.5 % (3-14); Neutrophils Absolute Auto 3300 /uL (1500-7000); Neutrophils Percent Auto 75.8 % (50-75); Platelet Count 153 X10^3/uL (150-400); Red Blood Cell Count 4.12 X10^6/uL (4.0-5.2); Red Cell Distribution Width 16.9 % (11.6-14.8); White Blood Cell Count 4.4 X10^3/uL (4.5-11.0)
[2023-05-20 19:39] LABS: HCO3 VBG 39 mmol/L (24-28); Oxygen Saturation VBG 68 % (70-75); PCO2 VBG 77.9 mmHg (45-50); PO2 VBG 41 mmHg (35-45); Total CO2 VBG 41 mmol/L (24-29)
[2023-05-20 19:40] LABS: Fractionated Inspired Oxygen 32
[2023-05-20 19:41] LABS: HEMOLYSIS 17 (0-50)
[2023-05-20 19:46] LABS: Alanine Aminotransferase 21 IU/L (<35); Albumin 3.9 g/dL (3.5-5.0); Alkaline Phosphatase 46 U/L (38-126); Aspartate Aminotransferase 39 IU/L (14-36); BUN Creatinine Ratio 34.2 (6-22); Bilirubin Total 0.6 mg/dL (0.2-1.3); Blood Urea Nitrogen 64 mg/dL (7-17); Calcium 9.3 mg/dL (8.4-10.2); Carbon Dioxide 37 mmol/L (22-32); Chloride 97 mmol/L (98-107); Creatine Kinase 118 U/L (30-135); Estimated Glomerular Filt Rate 30 mL/min (>60); Globulin 3.9 g/dL (1.7-4.1); Glucose 378 mg/dL (80-110); Lipase 52 U/L (23-300); Potassium 4.4 mmol/L (3.4-5.1); Sodium 141 mmol/L (137-145); Total Protein 7.8 g/dL (6.3-8.2)
[2023-05-20 19:47] LABS: Lactate (Lactic Acid) 0.9 mmol/L (0.7-2.1)
[2023-05-20 19:58] LABS: NT-proBNP (BNP-Adult 18+) 10100 pg/mL (<125); Troponin I 0.088 ng/mL (0.01-0.034)
[2023-05-20 20:03] LABS: Procalcitonin 0.49 ng/mL (<0.5)
[2023-05-20 20:07] LABS: Ketones (Beta-Hydroxybutyrate) 0.93 mmol/L (<0.27)
[2023-05-20 21:51] LABS: Troponin I 0.073 ng/mL (0.01-0.034)
--- NOTE | 2023-05-20 23:08 | PC.NURSE ---
increased sleepiness noted, pt rouses with painful stimuli Dr Muhammad in room to evaluate pt and ABGs drawn,
[2023-05-20 23:44] LABS: HCO3 ABG 36 mmol/L (23-27); Oxygen Saturation ABG 99 % (95-100); PCO2 ABG 88.2 mmHg (35-45); PO2 ABG 151 mmHg (80-100); TCO2 ABG 39 mmol/L (23-27)
[2023-05-20 23:45] LABS: Allen Test for ABG Passed? Yes, Passed; Blood Gas Collection Site Right Radial; Fractionated Inspired Oxygen 36
[2023-05-20 23:49] LABS: pH ABG 7.22 (7.35-7.45)
[2023-05-21] VITALS (50 sets, daily range): BP systolic 74–116; BP diastolic 50–73; PULSE 49–84; RESP 18–35; TEMP 30.5–36.3; O2SAT 85–98; BMI 48.9
--- NOTE | 2023-05-21 00:40 | PC.NURSE ---
pt wakens with verbal stimuli, but continues to be somnolent, pt informed of admission nodded head in respons
[2023-05-21 01:16] LABS: HCO3 ABG 32 mmol/L (23-27); PCO2 ABG 52.3 mmHg (35-45); PO2 ABG 55 mmHg (80-100)
[2023-05-21 01:17] LABS: Blood Gas Collection Site Left Radial; Fractionated Inspired Oxygen 24; Oxygen Saturation ABG 88 % (95-100); TCO2 ABG 34 mmol/L (23-27)
[2023-05-21 01:18] LABS: Allen Test for ABG Passed? Yes, Passed
--- NOTE | 2023-05-21 01:27 | PC.NURSE ---
philippe catheter placed d/t urinary retention and prolonged immobilization 700 ml returned
[2023-05-21] MEDS: MIDODRINE HCL 5 MG TABLET 10 MG PO ×3 (04:00→20:07)
--- NOTE | 2023-05-21 04:50 | P.HP_ITS ---
History of Present Illness History of Present Illness Date Patient Seen: 05/21/23 Time Patient Seen: 04:30 Chief complaint: Gen weakness,hyperglycemia,+COVID 1 wk ago Narrative: 62 years old obese female with a past medical history of obstructive sleep apnea, COPD on 2 L oxygen, diabetes mellitus type 2, congestive heart failure and multiple other medical issues was brought to the emergency room for generalized weakness with shortness of breath. Apparently there was a recent COVID infection outbreak in the long-term facility and patient has had generalized weakness. Currently needing a lift assist for movements and per records, denies any chest pain shortness of breath. Has nonproductive cough. Denies any nausea or vomiting. Patient is drowsy and morselization has been obtained from the chart. Workup was positive for COVID. Initial blood gas?VBG showed a pH of 7.22 and a pCO2 of 88.2. Subsequently started on BiPAP and a repeat ABG showed a pH of 7.30 with a pCO2 of 77.9. Troponin was 0.073. Patient was admitted for further evaluation [facility] Medical History PONCE (obstructive sleep apnea) Chronic hypoxemic respiratory failure COPD (chronic obstructive pulmonary disease) DM2 (diabetes mellitus, type 2) HTN (hypertension) Thyroiditis Systolic and diastolic CHF, chronic Obesity Surgical History S/P hernia surgery Family History Mother No pertinent past medical history Father No pertinent past medical history Social History household members: other Smoking Status: Former smoker alcohol intake: former Meds Home Medications and Allergies Home Medications Medication Instructions Recorded Confirmed Type acetaminophen 325 mg tablet 650 mg PO TID 05/25/22 05/20/23 History (Tylenol) aspirin 81 mg tablet,delayed 81 mg PO DAILY 05/25/22 05/20/23 History release budesonide-formoterol HFA 160 2 puff inhalation Q4H PRN Wheezing 05/25/22 05/20/23 History mcg-4.5 mcg/actuation aerosol inhaler bupropion HCl 150 mg tablet,12 hr 150 mg PO BEDTIME 05/25/22 05/20/23 History sustained-release carvedilol 3.125 mg tablet 3.125 mg PO BID 05/25/22 05/20/23 History cyanocobalamin (vitamin B-12) 500 500 mcg PO DAILY 05/25/22 05/20/23 History mcg tablet fenofibrate 160 mg tablet 160 mg PO DAILY 05/25/22 05/20/23 History fluoxetine 20 mg tablet 20 mg PO DAILY 05/25/22 05/20/23 History fluticasone propionate 50 2 spray intranasal DAILY 05/25/22 05/20/23 History mcg/actuation nasal spray,suspension gabapentin 300 mg capsule 300 mg PO BEDTIME 05/25/22 05/20/23 History insulin glargine 100 unit/mL (3 22 unit SUBCUT BID 05/25/22 05/20/23 History mL) subcutaneous pen insulin lispro 100 unit/mL See Protocol SUBCUT TIDWM 05/25/22 05/20/23 History subcutaneous solution (Humalog U-100 Insulin) loratadine 10 mg tablet 10 mg PO DAILY 05/25/22 05/20/23 History magnesium oxide 200 mg PO DAILY 05/25/22 05/20/23 History meclizine 25 mg tablet 25 mg PO Q8HR PRN Dizziness 05/25/22 05/20/23 History montelukast 10 mg tablet 10 mg PO DAILY 05/25/22 05/20/23 History nystatin 100,000 unit/gram topical 1 applic topical BID PRN Rash 05/25/22 05/20/23 History powder ondansetron 4 mg disintegrating 4 mg PO Q8H PRN Nausea 05/25/22 05/20/23 History tablet rosuvastatin 40 mg tablet 40 mg PO DAILY 05/25/22 05/20/23 History sennosides 8.6 mg tablet (senna) 17.2 mg PO BEDTIME 05/25/22 05/20/23 History tiotropium bromide 18 mcg capsule 1 cap inhalation DAILY 05/25/22 05/20/23 History with inhalation device (Spiriva with HandiHaler) trazodone 50 mg tablet 25 mg PO BEDTIME 05/25/22 05/20/23 History albuterol sulfate 90 mcg/actuation 4 puff inhalation Q4H PRN 08/15/22 05/20/23 History aerosol inhaler Shortness Of Breath Or Wheezing levothyroxine 175 mcg tablet 175 mcg PO DAILY 08/15/22 05/20/23 History potassium chloride 10 mEq 20 meq PO DAILY 08/15/22 05/20/23 History tablet,extended release midodrine 5 mg tablet 10 mg PO BID 05/20/23 05/20/23 History molnupiravir 800 mg BID 05/20/23 05/20/23 History prednisone 40 mg DAILY 05/20/23 05/20/23 History torsemide 20 mg DAILY 05/20/23 05/20/23 History torsemide 10 mg tablet 10 mg PO BEDTIME 05/20/23 05/20/23 History Allergies Allergy/AdvReac Type Severity Reaction Status Date / Time No Known Drug Allergies Allergy Verified 05/25/22 12:43 Review of Systems Review of Systems Narrative: Unable to do review of systems due to patient's lethargy Exam Vital Signs (past 8 hours): - 05/20/23 21:00 05/20/23 21:00 05/20/23 21:30 Temperature Pulse Rate 65 72 Respiratory Rate 26 H 26 H Blood Pressure 128/60 Pulse Oximetry 96 95 Oxygen Delivery Method Nasal Cannula Oxygen Flow Rate 3 Fraction of Inspired Oxygen 05/20/23 21:30 05/20/23 22:00 05/20/23 22:30 Temperature Pulse Rate 63 71 Respiratory Rate 26 H 25 H Blood Pressure 110/65 Pulse Oximetry 88 L 98 Oxygen Delivery Method Oxygen Flow Rate Fraction of Inspired Oxygen 05/20/23 22:30 05/20/23 23:00 05/20/23 23:00 Temperature Pulse Rate 72 Respiratory Rate 23 Blood Pressure 105/63 85/53 L Pulse Oximetry 97 Oxygen Delivery Method Oxygen Flow Rate Fraction of Inspired Oxygen 05/20/23 23:01 05/20/23 23:01 05/20/23 23:04 Temperature Pulse Rate 73 Respiratory Rate 32 H Blood Pressure 85/53 L 93/52 L Pulse Oximetry 94 Oxygen Delivery Method Oxygen Flow Rate Fraction of Inspired Oxygen 05/20/23 23:04 05/20/23 23:05 05/20/23 23:05 Temperature Pulse Rate 152 H 129 H Respiratory Rate 31 H 36 H Blood Pressure 103/55 L Pulse Oximetry 87 L 87 L Oxygen Delivery Method Oxygen Flow Rate Fraction of Inspired Oxygen 05/20/23 23:30 05/20/23 23:30 05/21/23 00:00 Temperature Pulse Rate 68 55 L Respiratory Rate 26 H 19 Blood Pressure 92/58 L Pulse Oximetry 92 94 Oxygen Delivery Method BiPAP Oxygen Flow Rate Fraction of Inspired Oxygen 05/21/23 00:30 05/21/23 00:30 05/21/23 00:33 Temperature Pulse Rate 54 L Respiratory Rate 25 H Blood Pressure 80/52 L 90/63 Pulse Oximetry 96 Oxygen Delivery Method BiPAP Oxygen Flow Rate Fraction of Inspired Oxygen 05/21/23 00:33 05/21/23 01:00 05/21/23 01:13 Temperature Pulse Rate 53 L 52 L Respiratory Rate 24 25 H Blood Pressure Pulse Oximetry 88 L 98 Oxygen Delivery Method BiPAP Oxygen Flow Rate Fraction of Inspired Oxygen 05/21/23 01:26 05/21/23 01:30 05/21/23 01:59 Temperature 97.2 F L Pulse Rate 50 L 67 Respiratory Rate 25 H 18 Blood Pressure 98/54 L Pulse Oximetry 92 92 Oxygen Delivery Method Oxygen Flow Rate 3 Fraction of Inspired Oxygen 05/21/23 02:00 05/21/23 02:00 05/21/23 03:00 Temperature Pulse Rate 59 L Respiratory Rate 25 H Blood Pressure 101/59 L 83/52 L Pulse Oximetry 93 Oxygen Delivery Method Oxygen Flow Rate 3 Fraction of Inspired Oxygen 05/21/23 03:00 05/21/23 03:07 05/21/23 03:08 Temperature Pulse Rate 55 L 73 Respiratory Rate 26 H 26 H Blood Pressure 95/66 Pulse Oximetry 87 L 92 Oxygen Delivery Method Oxygen Flow Rate 3 Fraction of Inspired Oxygen 05/21/23 03:08 05/21/23 04:00 05/21/23 04:01 Temperature Pulse Rate 71 61 Respiratory Rate 25 H 25 H Blood Pressure 74/52 L Pulse Oximetry 85 L 94 Oxygen Delivery Method Oxygen Flow Rate Fraction of Inspired Oxygen 05/21/23 04:01 05/21/23 04:08 05/21/23 04:08 Temperature 97.0 F L Pulse Rate 70 72 Respiratory Rate 25 H 21 Blood Pressure 88/62 L Pulse Oximetry 93 96 Oxygen Delivery Method Oxygen Flow Rate 3 3 Fraction of Inspired Oxygen Fraction of Inspired Oxygen 24 Oxygen Delivery Method BiPAP Oxygen Flow Rate 3 Narrative Exam Narrative: Patient is drowsy but wakes up easily to follow commands. Air entry decreased bilaterally at the base Objective Labs 05/20/23 19:15 05/20/23 19:15 Labs: Laboratory Results - last 24 hr 05/20/23 05/20/23 05/20/23 18:47 18:55 19:15 WBC 4.4 L RBC 4.12 Hgb 12.6 Hct 39.3 MCV 95.3 MCH 30.7 MCHC 32.2 RDW 16.9 H Plt Count 153 Neut % (Auto) 75.8 H Lymph % (Auto) 17.5 L Harris % (Auto) 6.5 Eos % (Auto) 0.0 L Baso % (Auto) 0.2 Neut # (Auto) 3300 Lymph # (Auto) 800 L Harris # (Auto) 300 Eos # (Auto) 0 Baso # (Auto) 0 ABG Sample Site ABG pH ABG pCO2 ABG pO2 ABG HCO3 ABG Total CO2 ABG O2 Saturation ABG Base Excess VBG pH VBG pCO2 VBG pO2 VBG HCO3 VBG Total CO2 VBG O2 Saturation VBG Base Excess FiO2 Sodium 141 Potassium 4.4 Chloride 97 L Carbon Dioxide 37 H BUN 64 H Creatinine 1.87 H Estimated GFR 30 L BUN/Creatinine Ratio 34.2 H Glucose 378 H Lactate 0.9 Calcium 9.3 Total Bilirubin 0.6 AST 39 H ALT 21 Alkaline Phosphatase 46 Total Creatine Kinase 118 Troponin I 0.088 H NT-Pro-B Natriuret Pep 88168 H Total Protein 7.8 Albumin 3.9 Globulin 3.9 Albumin/Globulin Ratio 1.0 Lipase 52 Procalcitonin 0.49 Urine Color Yellow Urine Appearance Clear Urine pH 5.0 Ur Specific [place] 1.020 Urine Protein 1+ H Urine Glucose (UA) 2+ H Urine Ketones Negative Urine Occult Blood 1+ H Urine Nitrate Negative Urine Bilirubin Negative Urine Urobilinogen 0.2 Ur Leukocyte Esterase Negative Urine RBC 0-1/hpf Urine WBC 0-1/hpf Ur Squamous Epith Cells 1-5 /hpf Urine Bacteria Occasional (0-1) Granular Casts 0-1/lpf Ur Culture Indicated? Cult not indicated Vol Urine Centrifuged Low vol <10ml (spun) A Ketones 0.93 H SARS-CoV-2 (PCR) Positive H 05/20/23 05/20/23 05/20/23 19:18 21:18 22:50 WBC RBC Hgb Hct MCV MCH MCHC RDW Plt Count Neut % (Auto) Lymph % (Auto) Harris % (Auto) Eos % (Auto) Baso % (Auto) Neut # (Auto) Lymph # (Auto) Harris # (Auto) Eos # (Auto) Baso # (Auto) ABG Sample Site Right radial ABG pH 7.22 L* ABG pCO2 88.2 H* ABG pO2 151 H ABG HCO3 36 H ABG Total CO2 39 H ABG O2 Saturation 99 ABG Base Excess 8.0 H VBG pH 7.30 L VBG pCO2 77.9 H VBG pO2 41 VBG HCO3 39 H VBG Total CO2 41 H VBG O2 Saturation 68 L VBG Base Excess 12.0 H FiO2 32 36 Sodium Potassium Chloride Carbon Dioxide BUN Creatinine Estimated GFR BUN/Creatinine Ratio Glucose Lactate Calcium Total Bilirubin AST ALT Alkaline Phosphatase Total Creatine Kinase Troponin I 0.073 H NT-Pro-B Natriuret Pep Total Protein Albumin Globulin Albumin/Globulin Ratio Lipase Procalcitonin Urine Color Urine Appearance Urine pH Ur Specific [place] Urine Protein Urine Glucose (UA) Urine Ketones Urine Occult Blood Urine Nitrate Urine Bilirubin Urine Urobilinogen Ur Leukocyte Esterase Urine RBC Urine WBC Ur Squamous Epith Cells Urine Bacteria Granular Casts Ur Culture Indicated? Vol Urine Centrifuged Ketones SARS-CoV-2 (PCR) 05/21/23 01:14 WBC RBC Hgb Hct MCV MCH MCHC RDW Plt Count Neut % (Auto) Lymph % (Auto) Harris % (Auto) Eos % (Auto) Baso % (Auto) Neut # (Auto) Lymph # (Auto) Harris # (Auto) Eos # (Auto) Baso # (Auto) ABG Sample Site Left radial ABG pH 7.40 ABG pCO2 52.3 H ABG pO2 55 L ABG HCO3 32 H ABG Total CO2 34 H ABG O2 Saturation 88 L ABG Base Excess 8.0 H VBG pH VBG pCO2 VBG pO2 VBG HCO3 VBG Total CO2 VBG O2 Saturation VBG Base Excess FiO2 24 Sodium Potassium Chloride Carbon Dioxide BUN Creatinine Estimated GFR BUN/Creatinine Ratio Glucose Lactate Calcium Total Bilirubin AST ALT Alkaline Phosphatase Total Creatine Kinase Troponin I NT-Pro-B Natriuret Pep Total Protein Albumin Globulin Albumin/Globulin Ratio Lipase Procalcitonin Urine Color Urine Appearance Urine pH Ur Specific [place] Urine Protein Urine Glucose (UA) Urine Ketones Urine Occult Blood Urine Nitrate Urine Bilirubin Urine Urobilinogen Ur Leukocyte Esterase Urine RBC Urine WBC Ur Squamous Epith Cells Urine Bacteria Granular Casts Ur Culture Indicated? Vol Urine Centrifuged Ketones SARS-CoV-2 (PCR) Assessment & Plan Assessment & Plan narrative: 62 years old obese female with a past medical history of obstructive sleep apnea, COPD on 2 L oxygen, diabetes mellitus type 2, congestive heart failure and multiple other medical issues was brought to the emergency room for generalized weakness with shortness of breath. Apparently there was a recent COVID infection outbreak in the long-term facility and patient has had generalized weakness. Currently needing a lift assist for movements and per records, denies any chest pain shortness of breath. Has nonproductive cough. Denies any nausea or vomiting. Patient is drowsy and morselization has been obtained from the chart. Workup was positive for COVID. Initial blood gas?VBG showed a pH of 7.22 and a pCO2 of 88.2. Subsequently started on BiPAP and a repeat ABG showed a pH of 7.30 with a pCO2 of 77.9. Troponin was 0.073. Patient was admitted for further evaluation Altered mental status the patient with obstructive sleep apnea and recent COVID infection. Treat reversible factors and also treat the obstructive sleep apnea while trending the CO2 levels closely. Suspect an element of metabolic encephalopathy complicating the picture. Treatment is supportive for now Obstructive sleep apnea with CO2 retention. Continue the BiPAP for now and trend ABG levels closely COVID infection recent. currently on home prednisone but watch the blood sugars closely. Given the hypoxemia, initiated course of remdesivir and monitor closely to check if patient may need antibiotics for possible superimposed bacterial infection Acute hypoxic respiratory failure likely multifactorial due to combination of underlying COVID infection/obstructive sleep apnea but cannot rule out superimposed heart failure/pleural effusion. Blood pressure is on the lower side and limits the use of diuretics for now. Resume the home midodrine and continue to BiPAP with nebulizers and oxygen supplementation. Follow-up with an echocardiogram to check for an underlying cardiac component Diabetes mellitus type 2. Watch the blood sugar ACHS with insulin sliding scale Hypothyroidism resume the home levothyroxine and check a TSH level COPD chronic. Continue the home inhalers and nebulizers and oxygen supplementation to maintain O2 saturation above 89% DVT prophylaxis will be Lovenox CODE STATUS is full code by default Patient will be admitted under inpatient status. Given the acute hypoxemic respiratory failure with the need for BiPAP and other intervention, patient meets criteria for inpatient with expected length of stay greater than 2 midnights. Patient was evaluated with help of video communication device. Location of the provider is [place] and
[2023-05-21] MEDS: LEVOTHYROXINE 50 MCG TABLET 175 MCG PO (05:16)
[2023-05-21 05:18] LABS: MRSA (Nasal) PCR DETECTED (Not Detect)
[2023-05-21] MEDS: REMDESIVIR 200 MG in SODIUM CHLORIDE 0.9% 250 ML 250 MG IV (05:32)
[2023-05-21] MEDS: BUDESONIDE 0.5 MG/2 ML NEB INH ×2 (07:56→21:19)
[2023-05-21] MEDS: ALBUTEROL 2.5 MG/3 ML NEB (ADULT) INH ×4 (07:57→21:19)
[2023-05-21 08:34] LABS: Add Manual Diff / Slide Review NO; Basophils Absolute Auto 0 /uL (0-100); Basophils Percent Auto 0.6 % (0-2); Eosinophils Absolute Auto 0 /uL (0-450); Eosinophils Percent Auto 0.2 % (2-4); Hematocrit 36.2 % (36-46); Hemoglobin 11.7 g/dL (12.0-16.0); Lymphocytes Absolute Auto 1200 /uL (1100-4500); Lymphocytes Percent Auto 19.9 % (25-40); Mean Corpuscular HGB Conc 32.3 % (30-36); Mean Corpuscular Hemoglobin 30.6 PG (26-34); Mean Corpuscular Volume 94.6 fL (80-100); Monocytes Absolute Auto 600 /uL (0-900); Monocytes Percent Auto 9.6 % (3-14); Neutrophils Absolute Auto 4100 /uL (1500-7000); Neutrophils Percent Auto 69.7 % (50-75); Platelet Count 174 X10^3/uL (150-400); Red Blood Cell Count 3.82 X10^6/uL (4.0-5.2); Red Cell Distribution Width 16.7 % (11.6-14.8); White Blood Cell Count 5.9 X10^3/uL (4.5-11.0)
[2023-05-21] MEDS: ASPIRIN EC 81 MG TABLET PO (08:37)
[2023-05-21] MEDS: predniSONE 20 MG TABLET 40 MG PO (08:37)
[2023-05-21] MEDS: ENOXAPARIN 40 MG/0.4 ML SYRINGE SUBCUT ×2 (08:37→20:06)
[2023-05-21 08:45] LABS: Alanine Aminotransferase 20 IU/L (<35); Albumin 3.6 g/dL (3.5-5.0); Alkaline Phosphatase 45 U/L (38-126); Aspartate Aminotransferase 31 IU/L (14-36); Bilirubin Total 0.6 mg/dL (0.2-1.3); Blood Urea Nitrogen 67 mg/dL (7-17); Calcium 9.2 mg/dL (8.4-10.2); Carbon Dioxide 37 mmol/L (22-32); Chloride 102 mmol/L (98-107); Estimated Glomerular Filt Rate 30 mL/min (>60); Globulin 3.5 g/dL (1.7-4.1); Glucose 211 mg/dL (80-110); HEMOLYSIS < 15 (0-50); Potassium 3.7 mmol/L (3.4-5.1); Sodium 144 mmol/L (137-145); Total Protein 7.1 g/dL (6.3-8.2)
[2023-05-21] MEDS: INSULIN LISPRO 100 UNIT/ML 3ML VIAL SUBCUT ×4 (08:48→20:08)
[2023-05-21 08:57] LABS: Troponin I 0.061 ng/mL (0.01-0.034)
--- NOTE | 2023-05-21 08:58 | DI.ECHO.S_ITS ---
[facility] +---------+ : : [address] : : : : [address] : : : : [place], : : : : [place] [id number] : : : : Phone: [phone] [facility]-[id number] Echocardiogram Report + + :Name: ELLA OSHEA Study Date: 05/21/2023 Height: 60 in : :[facility] ReadingLocation: [facility] Weight: 250 lb : : Gender: Female BSA: 2.1 m2 : :: 1960 Age: 62 yrs BP: 101/64 mmHg: : Performed By: Karey Fountain : :Referring: GEORGES THORNTON : + + Interpretation Summary The study quality was technically difficult. The ejection fraction is estimated to be 15-20%. The left ventricle is mildly dilated. Grossly the right ventricle appears dilated with reduced systolic function, probably severe. Compared to the prior study dated 01/20/2023, likely no change. Procedure: A two-dimensional transthoracic echocardiogram with color flow and Doppler was performed in limited views only. The study quality was technically difficult. A contrast injection of Definity was performed to improve assessment of LV function. The heart rate ranged between 65-70 bpm during the study. Left Ventricle: The left ventricle is mildly dilated. Left ventricular systolic function is severely reduced. The ejection fraction is estimated to be 15-20%. Diastolic function could not be accurately assessed due to unobtainable data. Right Ventricle: The right ventricle is not well visualized. Grossly the right ventricle appears dilated with reduced systolic function, probably severe. Atria: The left atrium is mildly dilated. Mitral Valve: The mitral valve is grossly normal. Aortic Valve: The aortic valve opens well. MMode/2D Measurements & Calculations LVIDd: 5.7 cm LVIDs: 4.9 cm IVSd: 0.88 cm LVPWd: 0.87 cm LV cotto. diameter/BSA (cm/m^2): 2.8 LV sys. diameter/BSA (cm/m^2): 2.4 FS: 14.4 % Doppler Measurements & Calculations MV E max yuliana: 105.2 cm/sec MV dec time: 0.16 sec MV A max yuliana: 63.6 cm/sec MV E/A: 1.7 Reading Physician:05:54 PM
[2023-05-21 09:16] LABS: TSH w/ Reflex to FT4 0.13 uIU/mL (0.47-4.68)
[2023-05-21 09:40] LABS: Free T4, Direct Thyroxine 1.55 ng/dL (0.78-2.19)
--- NOTE | 2023-05-21 13:43 | P.PN_ITS ---
Subjective Subjective Interval history: Mary Carmen Jett is a 62yo F with PMH of DM2, COPD on chronic 2L O2, HFrEF of 30-35%, morbid obesity, PONCE, HTN, hypothyroidism, frequent UTI's and depression admitted with acute hypoxemic and hypercapnic respiratory failure, sepsis secondary to COVID. She is back to 3 L O2 this morning, improved. Was COVID + 1 week ago. No shortness of breath today, no chest pain, no abdominal pain. Exam Vital Signs (past 8 hours): - 05/21/23 06:00 05/21/23 06:00 05/21/23 06:18 Temperature Pulse Rate 55 L 59 L Respiratory Rate 26 H 25 H Blood Pressure 97/60 Pulse Oximetry 92 92 Oxygen Delivery Method BiPAP Oxygen Flow Rate 3 Fraction of Inspired Oxygen 50 05/21/23 06:19 05/21/23 07:00 05/21/23 07:00 Temperature Pulse Rate 58 L Respiratory Rate 25 H Blood Pressure Pulse Oximetry 90 L Oxygen Delivery Method Nasal Cannula Oxygen Flow Rate Fraction of Inspired Oxygen 50 05/21/23 07:01 05/21/23 07:01 05/21/23 08:00 Temperature Pulse Rate 66 Respiratory Rate 25 H Blood Pressure 90/53 L 116/65 Pulse Oximetry 94 Oxygen Delivery Method Oxygen Flow Rate Fraction of Inspired Oxygen 05/21/23 08:00 05/21/23 08:06 05/21/23 08:10 Temperature 97.4 F L Pulse Rate 54 L 53 L Respiratory Rate 25 H 25 H Blood Pressure Pulse Oximetry 95 94 Oxygen Delivery Method BiPAP Oxygen Flow Rate Fraction of Inspired Oxygen 40 40 05/21/23 08:30 05/21/23 10:19 05/21/23 12:11 Temperature Pulse Rate 76 Respiratory Rate 22 Blood Pressure 99/56 L Pulse Oximetry 93 93 91 Oxygen Delivery Method Oxygen Flow Rate 5 3 3 Fraction of Inspired Oxygen 05/21/23 12:47 05/21/23 13:11 Temperature Pulse Rate 68 Respiratory Rate 22 Blood Pressure 105/67 Pulse Oximetry 95 Oxygen Delivery Method Nasal Cannula Oxygen Flow Rate 3 Fraction of Inspired Oxygen 28 38 Fraction of Inspired Oxygen 38 SaO2/FiO2 Ratio 339 Oxygen Delivery Method Nasal Cannula Oxygen Flow Rate 3 Narrative Exam Narrative: GEN: no acute distress, obese on O2 NC HEENT: moist mucous membranes, PERRL NECK: trachea midline, no JVD CV: regular rate and rhythm, no murmurs PULM: clear bilaterally ABD: soft, nontender, protuberant, no organomegaly EXT: warm and well perfused with no edema NEURO: awake, alert, oriented, no focal deficit Objective Labs 05/21/23 08:25 05/21/23 08:25 Labs: Laboratory Results - last 24 hr 05/20/23 05/20/23 05/20/23 18:47 18:55 19:15 WBC 4.4 L RBC 4.12 Hgb 12.6 Hct 39.3 MCV 95.3 MCH 30.7 MCHC 32.2 RDW 16.9 H Plt Count 153 Neut % (Auto) 75.8 H Lymph % (Auto) 17.5 L [place] % (Auto) 6.5 Eos % (Auto) 0.0 L Baso % (Auto) 0.2 Neut # (Auto) 3300 Lymph # (Auto) 800 L [place] # (Auto) 300 Eos # (Auto) 0 Baso # (Auto) 0 ABG Sample Site ABG pH ABG pCO2 ABG pO2 ABG HCO3 ABG Total CO2 ABG O2 Saturation ABG Base Excess VBG pH VBG pCO2 VBG pO2 VBG HCO3 VBG Total CO2 VBG O2 Saturation VBG Base Excess FiO2 Sodium 141 Potassium 4.4 Chloride 97 L Carbon Dioxide 37 H BUN 64 H Creatinine 1.87 H Estimated GFR 30 L BUN/Creatinine Ratio 34.2 H Glucose 378 H Lactate 0.9 Calcium 9.3 Total Bilirubin 0.6 AST 39 H ALT 21 Alkaline Phosphatase 46 Total Creatine Kinase 118 Troponin I 0.088 H NT-Pro-B Natriuret Pep 09041 H Total Protein 7.8 Albumin 3.9 Globulin 3.9 Albumin/Globulin Ratio 1.0 Lipase 52 Procalcitonin 0.49 TSH Free T4 Urine Color Yellow Urine Appearance Clear Urine pH 5.0 Ur Specific [place] 1.020 Urine Protein 1+ H Urine Glucose (UA) 2+ H Urine Ketones Negative Urine Occult Blood 1+ H Urine Nitrate Negative Urine Bilirubin Negative Urine Urobilinogen 0.2 Ur Leukocyte Esterase Negative Urine RBC 0-1/hpf Urine WBC 0-1/hpf Ur Squamous Epith Cells 1-5 /hpf Urine Bacteria Occasional (0-1) Granular Casts 0-1/lpf Ur Culture Indicated? Cult not indicated Vol Urine Centrifuged Low vol <10ml (spun) A Nasal Screen MRSA (PCR) Ketones 0.93 H SARS-CoV-2 (PCR) Positive H 05/20/23 05/20/23 05/20/23 19:18 21:18 22:50 WBC RBC Hgb Hct MCV MCH MCHC RDW Plt Count Neut % (Auto) Lymph % (Auto) [place] % (Auto) Eos % (Auto) Baso % (Auto) Neut # (Auto) Lymph # (Auto) [place] # (Auto) Eos # (Auto) Baso # (Auto) ABG Sample Site Right radial ABG pH 7.22 L* ABG pCO2 88.2 H* ABG pO2 151 H ABG HCO3 36 H ABG Total CO2 39 H ABG O2 Saturation 99 ABG Base Excess 8.0 H VBG pH 7.30 L VBG pCO2 77.9 H VBG pO2 41 VBG HCO3 39 H VBG Total CO2 41 H VBG O2 Saturation 68 L VBG Base Excess 12.0 H FiO2 32 36 Sodium Potassium Chloride Carbon Dioxide BUN Creatinine Estimated GFR BUN/Creatinine Ratio Glucose Lactate Calcium Total Bilirubin AST ALT Alkaline Phosphatase Total Creatine Kinase Troponin I 0.073 H NT-Pro-B Natriuret Pep Total Protein Albumin Globulin Albumin/Globulin Ratio Lipase Procalcitonin TSH Free T4 Urine Color Urine Appearance Urine pH Ur Specific [place] Urine Protein Urine Glucose (UA) Urine Ketones Urine Occult Blood Urine Nitrate Urine Bilirubin Urine Urobilinogen Ur Leukocyte Esterase Urine RBC Urine WBC Ur Squamous Epith Cells Urine Bacteria Granular Casts Ur Culture Indicated? Vol Urine Centrifuged Nasal Screen MRSA (PCR) Ketones SARS-CoV-2 (PCR) 05/21/23 05/21/23 05/21/23 01:14 02:05 08:25 WBC 5.9 RBC 3.82 L Hgb 11.7 L Hct 36.2 MCV 94.6 MCH 30.6 MCHC 32.3 RDW 16.7 H Plt Count 174 Neut % (Auto) 69.7 Lymph % (Auto) 19.9 L [place] % (Auto) 9.6 Eos % (Auto) 0.2 L Baso % (Auto) 0.6 Neut # (Auto) 4100 Lymph # (Auto) 1200 [place] # (Auto) 600 Eos # (Auto) 0 Baso # (Auto) 0 ABG Sample Site Left radial ABG pH 7.40 ABG pCO2 52.3 H ABG pO2 55 L ABG HCO3 32 H ABG Total CO2 34 H ABG O2 Saturation 88 L ABG Base Excess 8.0 H VBG pH VBG pCO2 VBG pO2 VBG HCO3 VBG Total CO2 VBG O2 Saturation VBG Base Excess FiO2 24 Sodium 144 Potassium 3.7 Chloride 102 Carbon Dioxide 37 H BUN 67 H Creatinine 1.86 H Estimated GFR 30 L BUN/Creatinine Ratio 36.0 H Glucose 211 H D Lactate Calcium 9.2 Total Bilirubin 0.6 AST 31 ALT 20 Alkaline Phosphatase 45 Total Creatine Kinase Troponin I 0.061 H NT-Pro-B Natriuret Pep Total Protein 7.1 Albumin 3.6 Globulin 3.5 Albumin/Globulin Ratio 1.0 Lipase Procalcitonin TSH 0.13 L Free T4 1.55 Urine Color Urine Appearance Urine pH Ur Specific [place] Urine Protein Urine Glucose (UA) Urine Ketones Urine Occult Blood Urine Nitrate Urine Bilirubin Urine Urobilinogen Ur Leukocyte Esterase Urine RBC Urine WBC Ur Squamous Epith Cells Urine Bacteria Granular Casts Ur Culture Indicated? Vol Urine Centrifuged Nasal Screen MRSA (PCR) Detected H Ketones SARS-CoV-2 (PCR) PFSH Medical History PONCE (obstructive sleep apnea) Chronic hypoxemic respiratory failure COPD (chronic obstructive pulmonary disease) DM2 (diabetes mellitus, type 2) HTN (hypertension) Thyroiditis Systolic and diastolic CHF, chronic Obesity Surgical History S/P hernia surgery Family History Mother No pertinent past medical history Father No pertinent past medical history Social History household members: other Smoking Status: Former smoker alcohol intake: former Assessment & Plan Assessment & Plan narrative: 62 years old obese female with a past medical history of obstructive sleep apnea, COPD on 2 L oxygen, diabetes mellitus type 2, congestive heart failure and multiple other medical issues was brought to the emergency room for generalized weakness with shortness of breath. Admitted with possible sepsis secondary to COVID infection, likely COPD exacerbation. #Sepsis with acute metabolic encephalopathy, acute on chronic hypoxemic and acute hypercapnic respiratory failure, BLANCA due to COVID - do not believe acute bacterial component at this time, will hold on antibiotics - now that respiratory failure resolved, continue prednisone 40 mg only for COPD exacerbation. - continue to monitor renal function, Cr 1.86 today with baseline around 1.2. - continue supportive care #HFrEF -last EF approx 25%. Repeat limited TTE ordered today. -does not appear to have an acute component at this time. # chronic hypoxic respiratory failure -on home 2L O2 - now near baseline. # COPD with exacerbation -continue nebs prn -prednisone as noted above. # DM2, POA and stable -continue insulin and sliding scale, blood sugar improved with increase to 30 U BID # BLANCA on CKD 3, POA - see above in setting of sepsis # morbid obesity, POA. - The patient is at much higher risk for medical and surgical complications because of their obesity. This increases the difficulty and complexity of medical and surgical interventions and increases the chances of poor outcomes such as morbidity and mortality. #subclinical hyperthyroidism - TSH 0.13 with free T4 1.55. Recommend outpatient repeat labs after illness resolves. No change to home levothyroxine dose at this time at 175 mcg. Disposition: Inpatient, was ICU with COVID and BIPAP initially can be downgraded to floor care. I spent 35 minutes providing critical care management this patient. This excludes time spent in performing separately billed procedures.
--- NOTE | 2023-05-21 14:00 | PM.HP.1 ---
History of Present Illness History of Present Illness Date Patient Seen: 05/21/23 Time Patient Seen: 10:00 Chief complaint: Gen weakness,hyperglycemia,+COVID 1 wk ago Narrative: Per overnight provider, 62 years old obese female with a past medical history of obstructive sleep apnea, COPD on 2 L oxygen, diabetes mellitus type 2, congestive heart failure and multiple other medical issues was brought to the emergency room for generalized weakness with shortness of breath. Apparently there was a recent COVID infection outbreak in the [facility] facility and patient has had generalized weakness. Currently needing a lift assist for movements and per records, denies any chest pain shortness of breath. Has nonproductive cough. Denies any nausea or vomiting. Patient is drowsy and morselization has been obtained from the chart. Workup was positive for COVID. Initial blood gas?VBG showed a pH of 7.22 and a pCO2 of 88.2. Subsequently started on BiPAP and a repeat ABG showed a pH of 7.30 with a pCO2 of 77.9. Troponin was 0.073. Patient was admitted for further evaluation Interval history: Patient weaned from BiPAP, feeling improved with no shortness of breath and improved mentation. Now on home 3L. PFSH Medical History PONCE (obstructive sleep apnea) Chronic hypoxemic respiratory failure COPD (chronic obstructive pulmonary disease) DM2 (diabetes mellitus, type 2) HTN (hypertension) Thyroiditis Systolic and diastolic CHF, chronic Obesity Surgical History S/P hernia surgery Family History Mother No pertinent past medical history Father No pertinent past medical history Social History household members: other Smoking Status: Former smoker alcohol intake: former Meds Home Medications and Allergies Home Medications Medication Instructions Recorded Confirmed Type acetaminophen 325 mg tablet 650 mg PO TID 05/25/22 05/20/23 History (Tylenol) aspirin 81 mg tablet,delayed 81 mg PO DAILY 05/25/22 05/20/23 History release budesonide-formoterol HFA 160 2 puff inhalation Q4H PRN Wheezing 05/25/22 05/20/23 History mcg-4.5 mcg/actuation aerosol inhaler bupropion HCl 150 mg tablet,12 hr 150 mg PO BEDTIME 05/25/22 05/20/23 History sustained-release carvedilol 3.125 mg tablet 3.125 mg PO BID 05/25/22 05/20/23 History cyanocobalamin (vitamin B-12) 500 500 mcg PO DAILY 05/25/22 05/20/23 History mcg tablet fenofibrate 160 mg tablet 160 mg PO DAILY 05/25/22 05/20/23 History fluoxetine 20 mg tablet 20 mg PO DAILY 05/25/22 05/20/23 History fluticasone propionate 50 2 spray intranasal DAILY 05/25/22 05/20/23 History mcg/actuation nasal spray,suspension gabapentin 300 mg capsule 300 mg PO BEDTIME 05/25/22 05/20/23 History insulin glargine 100 unit/mL (3 22 unit SUBCUT BID 05/25/22 05/20/23 History mL) subcutaneous pen insulin lispro 100 unit/mL See Protocol SUBCUT TIDWM 05/25/22 05/20/23 History subcutaneous solution (Humalog U-100 Insulin) loratadine 10 mg tablet 10 mg PO DAILY 05/25/22 05/20/23 History magnesium oxide 200 mg PO DAILY 05/25/22 05/20/23 History meclizine 25 mg tablet 25 mg PO Q8HR PRN Dizziness 05/25/22 05/20/23 History montelukast 10 mg tablet 10 mg PO DAILY 05/25/22 05/20/23 History nystatin 100,000 unit/gram topical 1 applic topical BID PRN Rash 05/25/22 05/20/23 History powder ondansetron 4 mg disintegrating 4 mg PO Q8H PRN Nausea 05/25/22 05/20/23 History tablet rosuvastatin 40 mg tablet 40 mg PO DAILY 05/25/22 05/20/23 History sennosides 8.6 mg tablet (senna) 17.2 mg PO BEDTIME 05/25/22 05/20/23 History tiotropium bromide 18 mcg capsule 1 cap inhalation DAILY 05/25/22 05/20/23 History with inhalation device (Spiriva with HandiHaler) trazodone 50 mg tablet 25 mg PO BEDTIME 05/25/22 05/20/23 History albuterol sulfate 90 mcg/actuation 4 puff inhalation Q4H PRN 08/15/22 05/20/23 History aerosol inhaler Shortness Of Breath Or Wheezing levothyroxine 175 mcg tablet 175 mcg PO DAILY 08/15/22 05/20/23 History potassium chloride 10 mEq 20 meq PO DAILY 08/15/22 05/20/23 History tablet,extended release midodrine 5 mg tablet 10 mg PO BID 05/20/23 05/20/23 History molnupiravir 800 mg BID 05/20/23 05/20/23 History prednisone 40 mg DAILY 05/20/23 05/20/23 History torsemide 20 mg DAILY 05/20/23 05/20/23 History torsemide 10 mg tablet 10 mg PO BEDTIME 05/20/23 05/20/23 History Allergies Allergy/AdvReac Type Severity Reaction Status Date / Time No Known Drug Allergies Allergy Verified 05/25/22 12:43 Review of Systems Review of Systems Narrative: All other systems reviewed with the patient and are negative unless otherwise stated. Exam Vital Signs (past 8 hours): - 05/21/23 06:18 05/21/23 06:19 05/21/23 07:00 Temperature Pulse Rate 59 L 58 L Respiratory Rate 25 H 25 H Blood Pressure Pulse Oximetry 92 90 L Oxygen Delivery Method BiPAP Oxygen Flow Rate Fraction of Inspired Oxygen 50 50 05/21/23 07:00 05/21/23 07:01 05/21/23 07:01 Temperature Pulse Rate 66 Respiratory Rate 25 H Blood Pressure 90/53 L Pulse Oximetry 94 Oxygen Delivery Method Nasal Cannula Oxygen Flow Rate Fraction of Inspired Oxygen 05/21/23 08:00 05/21/23 08:00 05/21/23 08:06 Temperature 97.4 F L Pulse Rate 54 L Respiratory Rate 25 H Blood Pressure 116/65 Pulse Oximetry 95 Oxygen Delivery Method Oxygen Flow Rate Fraction of Inspired Oxygen 40 05/21/23 08:10 05/21/23 08:30 05/21/23 10:19 Temperature Pulse Rate 53 L Respiratory Rate 25 H Blood Pressure Pulse Oximetry 94 93 93 Oxygen Delivery Method BiPAP Oxygen Flow Rate 5 3 Fraction of Inspired Oxygen 40 05/21/23 12:11 05/21/23 12:47 05/21/23 13:11 Temperature Pulse Rate 76 68 Respiratory Rate 22 22 Blood Pressure 99/56 L 105/67 Pulse Oximetry 91 95 Oxygen Delivery Method Nasal Cannula Oxygen Flow Rate 3 3 Fraction of Inspired Oxygen 28 38 Fraction of Inspired Oxygen 38 SaO2/FiO2 Ratio 339 Oxygen Delivery Method Nasal Cannula Oxygen Flow Rate 3 Narrative Exam Narrative: Narrative Exam Narrative: GEN: no acute distress, obese on O2 NC HEENT: moist mucous membranes, PERRL NECK: trachea midline, no JVD CV: regular rate and rhythm, no murmurs PULM: clear bilaterally ABD: soft, nontender, protuberant, no organomegaly EXT: warm and well perfused with no edema NEURO: awake, alert, oriented, no focal deficit Objective Labs 05/21/23 08:25 05/21/23 08:25 Labs: Laboratory Results - last 24 hr 05/20/23 05/20/23 05/20/23 18:47 18:55 19:15 WBC 4.4 L RBC 4.12 Hgb 12.6 Hct 39.3 MCV 95.3 MCH 30.7 MCHC 32.2 RDW 16.9 H Plt Count 153 Neut % (Auto) 75.8 H Lymph % (Auto) 17.5 L [place] % (Auto) 6.5 Eos % (Auto) 0.0 L Baso % (Auto) 0.2 Neut # (Auto) 3300 Lymph # (Auto) 800 L [place] # (Auto) 300 Eos # (Auto) 0 Baso # (Auto) 0 ABG Sample Site ABG pH ABG pCO2 ABG pO2 ABG HCO3 ABG Total CO2 ABG O2 Saturation ABG Base Excess VBG pH VBG pCO2 VBG pO2 VBG HCO3 VBG Total CO2 VBG O2 Saturation VBG Base Excess FiO2 Sodium 141 Potassium 4.4 Chloride 97 L Carbon Dioxide 37 H BUN 64 H Creatinine 1.87 H Estimated GFR 30 L BUN/Creatinine Ratio 34.2 H Glucose 378 H Lactate 0.9 Calcium 9.3 Total Bilirubin 0.6 AST 39 H ALT 21 Alkaline Phosphatase 46 Total Creatine Kinase 118 Troponin I 0.088 H NT-Pro-B Natriuret Pep 14511 H Total Protein 7.8 Albumin 3.9 Globulin 3.9 Albumin/Globulin Ratio 1.0 Lipase 52 Procalcitonin 0.49 TSH Free T4 Urine Color Yellow Urine Appearance Clear Urine pH 5.0 Ur Specific [place] 1.020 Urine Protein 1+ H Urine Glucose (UA) 2+ H Urine Ketones Negative Urine Occult Blood 1+ H Urine Nitrate Negative Urine Bilirubin Negative Urine Urobilinogen 0.2 Ur Leukocyte Esterase Negative Urine RBC 0-1/hpf Urine WBC 0-1/hpf Ur Squamous Epith Cells 1-5 /hpf Urine Bacteria Occasional (0-1) Granular Casts 0-1/lpf Ur Culture Indicated? Cult not indicated Vol Urine Centrifuged Low vol <10ml (spun) A Nasal Screen MRSA (PCR) Ketones 0.93 H SARS-CoV-2 (PCR) Positive H 05/20/23 05/20/23 05/20/23 19:18 21:18 22:50 WBC RBC Hgb Hct MCV MCH MCHC RDW Plt Count Neut % (Auto) Lymph % (Auto) [place] % (Auto) Eos % (Auto) Baso % (Auto) Neut # (Auto) Lymph # (Auto) [place] # (Auto) Eos # (Auto) Baso # (Auto) ABG Sample Site Right radial ABG pH 7.22 L* ABG pCO2 88.2 H* ABG pO2 151 H ABG HCO3 36 H ABG Total CO2 39 H ABG O2 Saturation 99 ABG Base Excess 8.0 H VBG pH 7.30 L VBG pCO2 77.9 H VBG pO2 41 VBG HCO3 39 H VBG Total CO2 41 H VBG O2 Saturation 68 L VBG Base Excess 12.0 H FiO2 32 36 Sodium Potassium Chloride Carbon Dioxide BUN Creatinine Estimated GFR BUN/Creatinine Ratio Glucose Lactate Calcium Total Bilirubin AST ALT Alkaline Phosphatase Total Creatine Kinase Troponin I 0.073 H NT-Pro-B Natriuret Pep Total Protein Albumin Globulin Albumin/Globulin Ratio Lipase Procalcitonin TSH Free T4 Urine Color Urine Appearance Urine pH Ur Specific [place] Urine Protein Urine Glucose (UA) Urine Ketones Urine Occult Blood Urine Nitrate Urine Bilirubin Urine Urobilinogen Ur Leukocyte Esterase Urine RBC Urine WBC Ur Squamous Epith Cells Urine Bacteria Granular Casts Ur Culture Indicated? Vol Urine Centrifuged Nasal Screen MRSA (PCR) Ketones SARS-CoV-2 (PCR) 05/21/23 05/21/23 05/21/23 01:14 02:05 08:25 WBC 5.9 RBC 3.82 L Hgb 11.7 L Hct 36.2 MCV 94.6 MCH 30.6 MCHC 32.3 RDW 16.7 H Plt Count 174 Neut % (Auto) 69.7 Lymph % (Auto) 19.9 L [place] % (Auto) 9.6 Eos % (Auto) 0.2 L Baso % (Auto) 0.6 Neut # (Auto) 4100 Lymph # (Auto) 1200 [place] # (Auto) 600 Eos # (Auto) 0 Baso # (Auto) 0 ABG Sample Site Left radial ABG pH 7.40 ABG pCO2 52.3 H ABG pO2 55 L ABG HCO3 32 H ABG Total CO2 34 H ABG O2 Saturation 88 L ABG Base Excess 8.0 H VBG pH VBG pCO2 VBG pO2 VBG HCO3 VBG Total CO2 VBG O2 Saturation VBG Base Excess FiO2 24 Sodium 144 Potassium 3.7 Chloride 102 Carbon Dioxide 37 H BUN 67 H Creatinine 1.86 H Estimated GFR 30 L BUN/Creatinine Ratio 36.0 H Glucose 211 H D Lactate Calcium 9.2 Total Bilirubin 0.6 AST 31 ALT 20 Alkaline Phosphatase 45 Total Creatine Kinase Troponin I 0.061 H NT-Pro-B Natriuret Pep Total Protein 7.1 Albumin 3.6 Globulin 3.5 Albumin/Globulin Ratio 1.0 Lipase Procalcitonin TSH 0.13 L Free T4 1.55 Urine Color Urine Appearance Urine pH Ur Specific [place] Urine Protein Urine Glucose (UA) Urine Ketones Urine Occult Blood Urine Nitrate Urine Bilirubin Urine Urobilinogen Ur Leukocyte Esterase Urine RBC Urine WBC Ur Squamous Epith Cells Urine Bacteria Granular Casts Ur Culture Indicated? Vol Urine Centrifuged Nasal Screen MRSA (PCR) Detected H Ketones SARS-CoV-2 (PCR) Assessment & Plan Assessment & Plan narrative: 62 years old obese female with a past medical history of obstructive sleep apnea, COPD on 2 L oxygen, diabetes mellitus type 2, congestive heart failure and multiple other medical issues was brought to the emergency room for generalized weakness with shortness of breath. Admitted with possible sepsis secondary to COVID infection, likely COPD exacerbation. #Sepsis with acute metabolic encephalopathy, acute on chronic hypoxemic and acute hypercapnic respiratory failure, BLANCA due to COVID - do not believe acute bacterial component at this time, will hold on antibiotics - now that respiratory failure resolved, continue prednisone 40 mg only for COPD exacerbation. - continue to monitor renal function, Cr 1.86 today with baseline around 1.2. - continue supportive care #HFrEF -last EF approx 25%. Repeat limited TTE ordered today. -does not appear to have an acute component at this time. # chronic hypoxic respiratory failure -on home 2L O2 - now near baseline. # COPD with exacerbation -continue nebs prn -prednisone as noted above. # DM2, POA and stable -continue insulin and sliding scale, blood sugar improved with increase to 30 U BID # BLANCA on CKD 3, POA - see above in setting of sepsis # morbid obesity, POA. - The patient is at much higher risk for medical and surgical complications because of their obesity. This increases the difficulty and complexity of medical and surgical interventions and increases the chances of poor outcomes such as morbidity and mortality. #subclinical hyperthyroidism - TSH 0.13 with free T4 1.55. Recommend outpatient repeat labs after illness resolves. No change to home levothyroxine dose at this time at 175 mcg. Disposition: Inpatient, was ICU with COVID and BIPAP initially can be downgraded to floor care. Can possibly return to SNF tomorrow if able. I spent 35 minutes providing critical care management this patient. This excludes time spent in performing separately billed procedures. I have utilized all available immediate resources to obtain, update, or review the patient's current medications. Code: Full Proxy is daughter Roxy.
--- NOTE | 2023-05-21 14:07 | CM.DANOTE ---
DCP Assessment note Pt is a 62yo F here following general weakness/Sepsis with acute metabolic encephalopathy, acute on chronic hypoxemic and acute hypercapnic respiratory failure, BLANCA due to COVID (H&P). PCP Simone Barber and Medicaid TICKET TAKER FERRYBOAT reviewed EMR. Pt is a halfway [facility] of [facility]. Per chart review from previous admissions in Jan and Dec 2022, pt returned to when medically stable. Per chart review from DCP Assessment 01/21/24, Patient is wheelchair and mostly bed bound at her baseline, is typically able to stand, pivot transfer into her wheelchair vs bogdan into wheelchair. Patient requires assist w/most ADLs, performs upper body dressing when able and feeds self. Patient does not ambulate. Per RN, the same remains true for pt's baseline this admission. Per provider in morning rounds, anticipate dc back to [facility] tomorrow. TICKET TAKER FERRYBOAT spoke with Miladis at [facility], report if pt returns to baseline can accept her back tomorrow. Will arrange transport tomorrow if pt is discharging. No PASRR needed due to pt being a LTR. TICKET TAKER FERRYBOAT did not enter room due to pt's COVID 19 diagnosis. Plan: return to [facility] when medically stable, anticipate tomorrow. CM team will arrange transport tomorrow. No PASRR needed. CM team will follow closely. [place] Discharge Planning/Care Management CM Discharge Assessment Start: 05/21/23 14:02 Freq: Status: Active Protocol: Document 05/21/23 14:03 (Rec: 05/21/23 14:06 [id number]) Discharge Planning Assessment Assigned Toppiece Cutter [place] DPOA/Assigned Designee Name Roxy rebecca Contact Information [phone] Advance Directives? No History Provided By Medical Record Prior Living Arrangements Skilled Nurse Facility Household Members other Type of transporation used prior to Relies on Others admit Facility Name Admitted From: [facility] Independent with ADL's No Is patient alert and oriented? Yes Needs Assistance With Bathing,Grooming,Meal Prep, Toileting,Managing Medications ,Home Chores / Shopping Patient/Family Preference [facility] Facility Comment Will return to [facility]. Likely facility will attempt auth through [place] Discharge Plan [facility] Facility Transportation Arrangement Facility Referrals Initiated None needed If patient plan is SNF: Has PASSR been PASRR not needed due to pt completed? being a halfway resident SNF/HH Preference Return to [facility] Has Agency SNF been contacted Yes Whiteboard Updated in Patient Room with No name and ext. # of Toppiece Cutter Review Status In Process Next Review Type Continued Stay Review
[2023-05-21] MEDS: INSULIN GLARGINE 100 UNIT/ML 3ML PEN 20 UNIT SUBCUT ×2 (17:16→20:08)
[2023-05-21] MEDS: ACETAMINOPHEN 325 MG TABLET 650 MG PO (17:17)
[2023-05-21] MEDS: ATORVASTATIN 20 MG TABLET 80 MG PO (20:06)
[2023-05-21] MEDS: GABAPENTIN 300 MG CAPSULE PO (20:06)
[2023-05-21] MEDS: carvediloL 3.125 MG TABLET PO (20:06)
[2023-05-22] VITALS (19 sets, daily range): BP systolic 95–115; BP diastolic 52–82; PULSE 45–77; RESP 18–37; TEMP 0–36.4; O2SAT 92–98
[2023-05-22] MEDS: LEVOTHYROXINE 50 MCG TABLET 175 MCG PO (05:54)
[2023-05-22] MEDS: ALBUTEROL 2.5 MG/3 ML NEB (ADULT) INH ×2 (06:58→10:13)
[2023-05-22] MEDS: BUDESONIDE 0.5 MG/2 ML NEB INH (06:58)
[2023-05-22] MEDS: FLUoxetine 20 MG CAPSULE PO (08:27)
[2023-05-22] MEDS: FENOFIBRATE, MICRONIZED 67 MG CAPSULE 134 MG PO (08:27)
[2023-05-22] MEDS: ASPIRIN EC 81 MG TABLET PO (08:27)
[2023-05-22] MEDS: MIDODRINE HCL 5 MG TABLET 10 MG PO (08:27)
[2023-05-22] MEDS: ENOXAPARIN 40 MG/0.4 ML SYRINGE SUBCUT (08:27)
[2023-05-22] MEDS: LORATADINE 10 MG TABLET PO (08:27)
[2023-05-22] MEDS: MONTELUKAST 10 MG TABLET PO (08:28)
[2023-05-22] MEDS: predniSONE 20 MG TABLET 40 MG PO (08:28)
[2023-05-22] MEDS: INSULIN GLARGINE 100 UNIT/ML 3ML PEN 20 UNIT SUBCUT (08:29)
[2023-05-22] MEDS: INSULIN LISPRO 100 UNIT/ML 3ML VIAL SUBCUT ×3 (08:29→12:19)
[2023-05-22 10:02] LABS: Add Manual Diff / Slide Review NO; Basophils Absolute Auto 100 /uL (0-100); Basophils Percent Auto 0.6 % (0-2); Eosinophils Absolute Auto 0 /uL (0-450); Hematocrit 36.9 % (36-46); Lymphocytes Absolute Auto 1200 /uL (1100-4500); Lymphocytes Percent Auto 14.6 % (25-40); Mean Corpuscular HGB Conc 32.4 % (30-36); Mean Corpuscular Hemoglobin 30.6 PG (26-34); Mean Corpuscular Volume 94.3 fL (80-100); Monocytes Absolute Auto 600 /uL (0-900); Monocytes Percent Auto 6.8 % (3-14); Neutrophils Absolute Auto 6600 /uL (1500-7000); Platelet Count 195 X10^3/uL (150-400); Red Blood Cell Count 3.91 X10^6/uL (4.0-5.2); Red Cell Distribution Width 16.3 % (11.6-14.8); White Blood Cell Count 8.5 X10^3/uL (4.5-11.0)
[2023-05-22 10:16] LABS: BUN Creatinine Ratio 48.6 (6-22); Blood Urea Nitrogen 71 mg/dL (7-17); Calcium 9.4 mg/dL (8.4-10.2); Carbon Dioxide 35 mmol/L (22-32); Chloride 98 mmol/L (98-107); Estimated Glomerular Filt Rate 41 mL/min (>60); Glucose 223 mg/dL (80-110); HEMOLYSIS 21 (0-50); Magnesium 2.5 mg/dL (1.6-2.3); Potassium 3.9 mmol/L (3.4-5.1); Sodium 139 mmol/L (137-145)
--- NOTE | 2023-05-22 12:04 | P.DS_ITS ---
History of Present Illness History of Present Illness Chief complaint: Gen weakness,hyperglycemia,+COVID 1 wk ago Narrative: Per overnight provider, 62 years old obese female with a past medical history of obstructive sleep apnea, COPD on 2 L oxygen, diabetes mellitus type 2, congestive heart failure and multiple other medical issues was brought to the emergency room for generalized weakness with shortness of breath. Apparently there was a recent COVID infection outbreak in the long-term facility and patient has had generalized weakness. Currently needing a lift assist for movements and per records, denies any chest pain shortness of breath. Has nonproductive cough. Denies any nausea or vomiting. Patient is drowsy and morselization has been obtained from the chart. Workup was positive for COVID. Initial blood gas?VBG showed a pH of 7.22 and a pCO2 of 88.2. Subsequently started on BiPAP and a repeat ABG showed a pH of 7.30 with a pCO2 of 77.9. Troponin was 0.073. Patient was admitted for further evaluation Interval history: Patient weaned from BiPAP, feeling improved with no shortness of breath and improved mentation. Now on home 3L. Discharge Providers Provider Date of admission: 05/21/23 00:56 Discharge Date: 05/22/23 Primary care physician: Simone Rodgers MD Discharge provider: Ayden Alexis DO Summary Hospital Course Discharge Diagnosis: #Sepsis with acute metabolic encephalopathy, acute on chronic hypoxemic and acute hypercapnic respiratory failure, BLANCA due to COVID, resolved - do not believe acute bacterial component at this time, will hold on antibiotics - now that respiratory failure resolved, will dc steroids as this will significantly worsen her hyperglycemia - continue to monitor renal function, Cr 1.86 today with baseline around 1.2. - continue supportive care #HFrEF -last EF approx 25%. Repeat limited TTE ordered today. -does not appear to have an acute component at this time. # chronic hypoxic respiratory failure -on home 2L O2 - now near baseline. # COPD with exacerbation -continue nebs prn -prednisone as noted above. # DM2, POA and stable -continue insulin and sliding scale, blood sugar improved with increase to 30 U BID # BLANCA on CKD 3, POA - see above in setting of sepsis # morbid obesity, POA. - The patient is at much higher risk for medical and surgical complications because of their obesity. This increases the difficulty and complexity of medical and surgical interventions and increases the chances of poor outcomes such as morbidity and mortality. #subclinical hyperthyroidism - TSH 0.13 with free T4 1.55. Recommend outpatient repeat labs after illness resolves. No change to home levothyroxine dose at this time at 175 mcg. Hospital Course: Admitted overnight for resp failure from COVID. Improved with Bipap and steroids. Able to wean to baseline O2 and return back to SNF. No changes to meds were made. Exam Vital Signs (past 8 hours): - 05/22/23 05:00 05/22/23 05:00 05/22/23 05:27 Temperature Pulse Rate 47 L Respiratory Rate 26 H Blood Pressure 97/67 107/65 Pulse Oximetry 92 Oxygen Delivery Method Oxygen Flow Rate Fraction of Inspired Oxygen 38 05/22/23 05:42 05/22/23 05:42 05/22/23 05:48 Temperature 96.9 F L Pulse Rate 50 L Respiratory Rate 25 H Blood Pressure 104/71 Pulse Oximetry 98 Oxygen Delivery Method Oxygen Flow Rate Fraction of Inspired Oxygen 05/22/23 05:48 05/22/23 06:00 05/22/23 06:00 Temperature Pulse Rate 49 L Respiratory Rate 31 H Blood Pressure 97/67 108/66 Pulse Oximetry 94 Oxygen Delivery Method Oxygen Flow Rate Fraction of Inspired Oxygen 05/22/23 06:59 05/22/23 07:00 05/22/23 07:00 Temperature Pulse Rate 45 L 50 L Respiratory Rate 20 26 H Blood Pressure 114/68 Pulse Oximetry 95 96 Oxygen Delivery Method BiPAP Oxygen Flow Rate Fraction of Inspired Oxygen 38 05/22/23 08:00 05/22/23 08:00 05/22/23 08:44 Temperature 97.6 F Pulse Rate 48 L Respiratory Rate 29 H Blood Pressure 105/66 114/68 Pulse Oximetry 96 Oxygen Delivery Method Oxygen Flow Rate Fraction of Inspired Oxygen 05/22/23 09:00 05/22/23 09:00 05/22/23 09:59 Temperature Pulse Rate 77 55 L Respiratory Rate 36 H Blood Pressure 115/82 Pulse Oximetry 95 Oxygen Delivery Method Oxygen Flow Rate Fraction of Inspired Oxygen 05/22/23 10:00 05/22/23 10:00 05/22/23 10:18 Temperature Pulse Rate 70 69 Respiratory Rate 37 H 18 Blood Pressure 105/63 Pulse Oximetry 92 93 Oxygen Delivery Method High Flow Nasal Cannula Oxygen Flow Rate 3 Fraction of Inspired Oxygen 32 05/22/23 11:00 05/22/23 11:00 Temperature Pulse Rate 68 Respiratory Rate 28 H Blood Pressure 95/66 Pulse Oximetry 92 Oxygen Delivery Method Oxygen Flow Rate Fraction of Inspired Oxygen Fraction of Inspired Oxygen 32 SaO2/FiO2 Ratio 290 Oxygen Delivery Method High Flow Nasal Cannula Oxygen Flow Rate 3 Narrative Exam Narrative: GEN: no acute distress, obese on O2 NC HEENT: moist mucous membranes, PERRL NECK: trachea midline, no JVD CV: regular rate and rhythm, no murmurs PULM: clear bilaterally ABD: soft, nontender, protuberant, no organomegaly EXT: warm and well perfused with no edema NEURO: awake, alert, oriented, no focal deficit Objective Labs 05/22/23 09:54 05/22/23 09:54 Labs: Laboratory Results - last 24 hr 05/22/23 09:54 WBC 8.5 RBC 3.91 L Hgb 12.0 Hct 36.9 MCV 94.3 MCH 30.6 MCHC 32.4 RDW 16.3 H Plt Count 195 Neut % (Auto) 78.0 H Lymph % (Auto) 14.6 L [place] % (Auto) 6.8 Eos % (Auto) 0.0 L Baso % (Auto) 0.6 Neut # (Auto) 6600 Lymph # (Auto) 1200 [place] # (Auto) 600 Eos # (Auto) 0 Baso # (Auto) 100 Sodium 139 Potassium 3.9 Chloride 98 Carbon Dioxide 35 H BUN 71 H Creatinine 1.46 H Estimated GFR 41 L BUN/Creatinine Ratio 48.6 H Glucose 223 H Calcium 9.4 Magnesium 2.5 H PFSH Medical History PONCE (obstructive sleep apnea) Chronic hypoxemic respiratory failure COPD (chronic obstructive pulmonary disease) DM2 (diabetes mellitus, type 2) HTN (hypertension) Thyroiditis Systolic and diastolic CHF, chronic Obesity Surgical History S/P hernia surgery Family History Mother No pertinent past medical history Father No pertinent past medical history Social History household members: other Smoking Status: Former smoker alcohol intake: former Discharge Plan Discharge Plan Patient Disposition: SNF Discharge orders & Medications Prescriptions: Continued albuterol sulfate 90 mcg/actuation HFA aerosol inhaler 4 puff INHALATION Q4H PRN (Reason: Shortness Of Breath Or Wheezing) levothyroxine 175 mcg tablet 175 mcg PO DAILY potassium chloride 10 mEq tablet extended release 20 meq PO DAILY molnupiravir 800 mg 800 mg BID Rx Instructions: give for 10 administrations started on 05/17/23 end date 05/22/2023 prednisone 20 mg 40 mg DAILY Rx Instructions: give 5 administrations end date 05/25/2023 torsemide 10 mg 20 mg DAILY midodrine 5 mg tablet 10 mg PO BID torsemide 10 mg tablet 10 mg PO BEDTIME bupropion HCl 150 mg tablet sustained-release 12 hr 150 mg PO BEDTIME sennosides [senna] 8.6 mg tablet 17.2 mg PO BEDTIME acetaminophen [Tylenol] 325 mg Tablet 650 mg PO TID trazodone 50 mg tablet 25 mg PO BEDTIME aspirin 81 mg Tablet,Delayed Release (Dr/Ec) 81 mg PO DAILY carvedilol 3.125 mg tablet 3.125 mg PO BID cyanocobalamin (vitamin B-12) 500 mcg Tablet 500 mcg PO DAILY meclizine 25 mg tablet 25 mg PO Q8HR PRN (Reason: Dizziness) fluoxetine 20 mg Tablet 20 mg PO DAILY gabapentin 300 mg Capsule 300 mg PO BEDTIME montelukast 10 mg Tablet 10 mg PO DAILY nystatin 100,000 unit/gram Powder 1 applic TOPICAL BID PRN (Reason: Rash) insulin lispro [Humalog U-100 Insulin] 100 unit/mL Solution See Protocol SUBCUT TIDWM Protocol: TITRATE PER PROTOCOL Rx Instructions: sliding scale ondansetron 4 mg Tablet,Disintegrating 4 mg PO Q8H PRN (Reason: Nausea) fluticasone propionate 50 mcg/actuation [place],Suspension 2 spray INTRANASAL DAILY Rx Instructions: administer into each nostril loratadine 10 mg Tablet 10 mg PO DAILY rosuvastatin 40 mg Tablet 40 mg PO DAILY tiotropium bromide [Spiriva with HandiHaler] 18 mcg Capsule, W/Inhalation Device 1 cap INHALATION DAILY Rx Instructions: puncture 1 cap using device; one dose = 2 inhalations fenofibrate 160 mg Tablet 160 mg PO DAILY budesonide-formoterol 160-4.5 mcg/actuation Hfa Aerosol Inhaler 2 puff INHALATION Q4H PRN (Reason: Wheezing) insulin glargine 100 unit/mL (3 mL) Insulin Pen 22 unit SUBCUT BID magnesium oxide 200 mg magnesium Tablet 200 mg PO DAILY Follow up/Referrals: Simone Rodgers MD [Primary Care Provider] - 2 Weeks Visit Report/Discharge Packet Stand Alone Forms: Patient Portal/API Discharge Data Primary Care Provider: Simone Rodgers
--- NOTE | 2023-05-22 12:51 | CM.DPNOTE ---
DCP Note BEADWORKER reviewed EMR, per hospitalist pt stable to dc back to [facility] today. BEADWORKER spoke with [facility]- able to take pt back at 1pm today. BEADWORKER emailed dc sum and med list to [facility]. BEADWORKER placed med list in chart. BEADWORKER updated RN with report number and transport. BEADWORKER updated [facility] ON. Plan: pt to dc today to [facility] at 1pm. CM will continue to follow as needed. GA Han
--- NOTE | 2023-05-22 14:29 | PC.NURSE ---
Discharge Note Patient A&O, VSS, RA, no complaints of pain or discomfort. Discharge packet reviewed with patient, all questions/concerns addressed. PIV/TELE discontinued. Report given to facility, all questions/concerns addressed. Patient transferred to wheelchair via bogdan. Paperwork given to facility staff. Patient taken down via wheelchair by facility staff for transfer.
== END 2023-05-22 13:15 | DRG 720 ==
LOC: ED 19:50 → AC 05-21 00:57 → ICU 05-21 01:05
PROVIDERS: Student in an Organized Health Care Education/Training Program; Admitting Provider Internal Medicine; Emergency Provider Emergency Medicine; PCP Family Medicine; Referring Provider Emergency Medicine; Visit Provider Internal Medicine
DX: A41.9 Sepsis, unspecified organism (principal); U07.1 COVID-19; G93.41 Metabolic encephalopathy; G47.33 Obstructive sleep apnea (adult) (pediatric); R65.20 Severe sepsis without septic shock; J96.21 Acute and chronic respiratory failure with hypoxia; J44.1 Chronic obstructive pulmonary disease with (acute) exacerbation; I50.20 Unspecified systolic (congestive) heart failure; I13.0 Hypertensive heart and chronic kidney disease with heart failure and stage 1 through stage 4 chronic kidney disease, or unspecified chronic kidney disease; E11.22 Type 2 diabetes mellitus with diabetic chronic kidney disease; N18.30 Chronic kidney disease, stage 3 unspecified; E66.01 Morbid (severe) obesity due to excess calories; E05.80 Other thyrotoxicosis without thyrotoxic crisis or storm; Z79.52 Long term (current) use of systemic steroids; Z79.4 Long term (current) use of insulin; Z68.42 Body mass index [BMI] 45.0-49.9, adult; Z87.891 Personal history of nicotine dependence; Z99.81 Dependence on supplemental oxygen
CPT/HCPCS: 36415; 36600; 71045; 80048; 80053; 81001; 82009; 82550; 82805; 82962; 83605; 83690; 83735; 83880; 84145; 84439; 84443; 84484; 85025; 87040; 87086; 87635; 87797; 93005; 93010; 93307; 94640; 94660; 99285; A9270; J1650; J1815; J7613; Q9957

== ENCOUNTER 2023-06-27 07:28 | Inpatient (IN) | payer OTHER, MEDICAID, SELFPAY ==
[2022-05-26 19:34] VITALS: RESP 0
[2023-05-21 01:13] VITALS: BMI 48.9
[2023-05-22 05:27] VITALS: PULSE 46; RESP 21; O2SAT 98
[2023-06-27] VITALS (129 sets, daily range): BP systolic 47–161; BP diastolic 28–87; PULSE 71–165; RESP 9–34; TEMP 29.4–37.1; O2SAT 77–100; BMI 48.7; BMI 48.2
--- NOTE | 2023-06-27 07:34 | DI.RAD.S_ITS ---
PROCEDURE: XR CHEST 1V INDICATIONS: Shortness of breath TECHNIQUE: One view of the chest was acquired. COMPARISON: [facility], CR, XR CHEST 1V, 05/20/2023, 18:56. FINDINGS: Surgical changes and devices: None. Lungs and pleura: Left base demonstrates progressive opacification. There is blunting of the right costophrenic angle unchanged. Mild increased interstitial prominence. Mediastinum: Mediastinal contours appear normal. Heart size is enlarged. Bones and chest wall: No suspicious bony lesions. Overlying soft tissues appear unremarkable. IMPRESSION: Increased opacity within the left base suspicious for increasing effusion. Underlying area of pneumonia/atelectasis cannot be excluded. Increased interstitial opacities suggestive of edema. Minimal right costophrenic angle effusion versus scarring. Dictated by: Kaykay Beckman M.D. on 06/27/2023 at 8:16 Approved by: Kaykay Beckman M.D. on 06/27/2023 at 8:17
[2023-06-27] MEDS: FUROSEMIDE 40 MG/4 ML VIAL IV ×2 (07:39→12:01)
[2023-06-27] MEDS: methylPREDNISolone 125 MG/2 ML VIAL IV (07:40)
[2023-06-27 07:46] LABS: Add Manual Diff / Slide Review NO; Basophils Absolute Auto 100 /uL (0-100); Basophils Percent Auto 0.8 % (0-2); Eosinophils Absolute Auto 100 /uL (0-450); Eosinophils Percent Auto 1.1 % (2-4); Hematocrit 39.2 % (36-46); Hemoglobin 12.5 g/dL (12.0-16.0); Lymphocytes Absolute Auto 2000 /uL (1100-4500); Lymphocytes Percent Auto 14.6 % (25-40); Mean Corpuscular Hemoglobin 32.6 PG (26-34); Monocytes Absolute Auto 900 /uL (0-900); Monocytes Percent Auto 6.5 % (3-14); Neutrophils Absolute Auto 10700 /uL (1500-7000); Platelet Count 327 X10^3/uL (150-400); Red Blood Cell Count 3.84 X10^6/uL (4.0-5.2); Red Cell Distribution Width 18.7 % (11.6-14.8); White Blood Cell Count 13.9 X10^3/uL (4.5-11.0)
[2023-06-27 07:57] LABS: INR 1.1 (0.9-1.3); Prothrombin Time 12.2 SECONDS (9.4-12.5)
[2023-06-27] MEDS: ALBUTEROL/IPRATROPIUM 3 ML AMPUL INH ×2 (08:06→20:06)
--- NOTE | 2023-06-27 08:08 | ED_ITS ---
HPI - SOB/Dyspnea General Chief Complaint: Shortness of Breath/Dyspnea Stated Complaint: SOB Time Seen by Provider: 06/27/23 07:36 History of Present Illness HPI Narrative: Patient brought in by ambulance from [facility], complaints of shortness of breath. Patient has history of COPD CHF asthma. Patient thinks she has been using her CPAP very well at night. However this morning felt short of breath after taking it off. Rehab facility states she is likely gain at least 4 lb. Patient has been there for the past 5 days according to admission records. Patient admitted here last month for similar complaint. Patient is on oxygen continuously at facility. Patient denies any chest pain. No leg pain. She is awake alert but slightly somnolent. She is answering appropriately. Blood sugar 230 by EMS. She did receive DuoNeb by EMS on arrival. No pinpoint pupils. No altered mental status Related Data Home Medications Medication Instructions Recorded Confirmed acetaminophen 325 mg tablet 650 mg PO TID 05/25/22 06/27/23 (Tylenol) aspirin 81 mg tablet,delayed 81 mg PO DAILY 05/25/22 06/27/23 release budesonide-formoterol HFA 160 2 puff inhalation Q4H PRN Wheezing 05/25/22 06/27/23 mcg-4.5 mcg/actuation aerosol inhaler bupropion HCl 150 mg tablet,12 hr 150 mg PO BEDTIME 05/25/22 06/27/23 sustained-release carvedilol 3.125 mg tablet 3.125 mg PO BID 05/25/22 06/27/23 cyanocobalamin (vitamin B-12) 500 500 mcg PO DAILY 05/25/22 06/27/23 mcg tablet fenofibrate 160 mg tablet 160 mg PO DAILY 05/25/22 06/27/23 fluoxetine 20 mg tablet 20 mg PO DAILY 05/25/22 06/27/23 fluticasone propionate 50 2 spray intranasal DAILY 05/25/22 06/27/23 mcg/actuation nasal spray,suspension gabapentin 300 mg capsule 300 mg PO BEDTIME 05/25/22 06/27/23 insulin glargine 100 unit/mL (3 22 unit SUBCUT BID 05/25/22 06/27/23 mL) subcutaneous pen insulin lispro 100 unit/mL See Protocol SUBCUT TIDWM 05/25/22 06/27/23 subcutaneous solution (Humalog U-100 Insulin) loratadine 10 mg tablet 10 mg PO DAILY 05/25/22 06/27/23 magnesium oxide 200 mg PO DAILY 05/25/22 06/27/23 meclizine 25 mg tablet 25 mg PO Q8HR PRN Dizziness 05/25/22 06/27/23 montelukast 10 mg tablet 10 mg PO DAILY 05/25/22 06/27/23 nystatin 100,000 unit/gram topical 1 applic topical BID PRN Rash 05/25/22 06/27/23 powder ondansetron 4 mg disintegrating 4 mg PO Q8H PRN Nausea 05/25/22 06/27/23 tablet rosuvastatin 40 mg tablet 40 mg PO DAILY 05/25/22 06/27/23 sennosides 8.6 mg tablet (senna) 17.2 mg PO BEDTIME 05/25/22 06/27/23 tiotropium bromide 18 mcg capsule 1 cap inhalation DAILY 05/25/22 06/27/23 with inhalation device (Spiriva with HandiHaler) trazodone 50 mg tablet 25 mg PO BEDTIME 05/25/22 06/27/23 albuterol sulfate 90 mcg/actuation 4 puff inhalation Q4H PRN 08/15/22 06/27/23 aerosol inhaler Shortness Of Breath Or Wheezing levothyroxine 175 mcg tablet 175 mcg PO DAILY 08/15/22 06/27/23 potassium chloride 10 mEq 20 meq PO DAILY 08/15/22 06/27/23 tablet,extended release midodrine 5 mg tablet 10 mg PO BID 05/20/23 06/27/23 torsemide 20 mg DAILY 05/20/23 06/27/23 torsemide 10 mg tablet 10 mg PO BEDTIME 05/20/23 06/27/23 Allergies Allergy/AdvReac Type Severity Reaction Status Date / Time No Known Drug Allergies Allergy Verified 05/25/22 12:43 Review of Systems Review of Systems Narrative: GENERAL: negative chills, fatigue, malaise, fever, sweats. HEENT: negative sinus pain, ear pain, sore throat RESPIRATORY: Positive dyspnea, negative cough CARDIOVASCULAR: negative chest pain, palpitations GASTROINTESTINAL: negative nausea, vomiting, abdominal pain : negative dysuria, frequency, hematuria MUSCULOSKELETAL: negative muscle or bony pain SKIN: negative rash, skin lesions NEUROLOGIC: negative weakness, numbness ROS Unobtainable: All systems reviewed & are unremarkable except as noted in HPI and below Patient History Medical History PONCE (obstructive sleep apnea) Chronic hypoxemic respiratory failure COPD (chronic obstructive pulmonary disease) DM2 (diabetes mellitus, type 2) HTN (hypertension) Thyroiditis Systolic and diastolic CHF, chronic Obesity Surgical History S/P hernia surgery Family History Mother No pertinent past medical history Father No pertinent past medical history Social History household members: other Smoking Status: Former smoker alcohol intake: former Smoking Status: Former smoker alcohol intake frequency: other Substance Use Type: does not use Exam Narrative Exam Narrative: GENERAL: in no distress, not toxic not dyspneic HEAD: Normocephalic. EYES: Pupils equal round ENT: Mucous membranes moist. NECK: Trachea midline. CARDIOVASCULAR: Regular rate and rhythm RESPIRATORY: Able to answer questions, slightly diminished lung sounds bilaterally. No wheezing rhonchi. Slight basilar rales. GASTROINTESTINAL: Abdomen soft, non-tender EXTREMITIES: No gross deformities. 1+ ankle edema no calf tenderness BACK: No flank tenderness. NEURO: AOx4. SKIN: Warm and dry PSYCH: Not anxious, is cooperative Initial Vital Signs Initial Vital Signs: Vital Signs Temperature 97.8 F 06/27/23 07:28 Pulse Rate 100 H 06/27/23 07:28 Respiratory Rate 24 06/27/23 07:28 Pulse Oximetry 77 L 06/27/23 07:28 Oxygen Delivery Method CPAP 06/27/23 07:28 Procedures Intubation Time of Intubation: 13:02 Time out performed: Yes sedative: other (Propofol) Assist Device Used: fiber optic device ET Tube Size: 7 ET Tube Uncuffed: No Tube Secured Depth (cm): 20 Tube Secured Location: lips Tube Placement Confirmation: Visualized tube passing through cords, Equal breath sounds bilaterally, Confirmation by capnometry and Chest Xray Patient Tolerated Procedure: Well and No complications Intubation Complications: none Course Orders Ordered: Discontinued Medications Acetaminophen (Acetaminophen 325 Mg Tablet) 650 mg PO Q6H PRN PRN Reason: Fever/Mild Pain (1-3) Last Admin: 07/02/23 13:12 Dose: 650 mg Documented By: Admin: 07/02/23 03:42 Dose: 650 mg Documented By: [facility] Admin: 07/01/23 18:01 Dose: 650 mg Documented By: Admin: 07/01/23 12:03 Dose: 650 mg Documented By: Admin: 07/01/23 04:40 Dose: 650 mg Documented By: Admin: 06/30/23 20:11 Dose: 650 mg Documented By: Albuterol/Ipratropium (Albuterol/Ipratropium 3 Ml Ampul) 3 ml INH NOW ONE Stop: 06/27/23 07:38 Last Admin: 06/27/23 08:06 Dose: 3 ml Documented By: LOULOU Albuterol/Ipratropium (Albuterol/Ipratropium 3 Ml Ampul) 3 ml INH RTQ6HR JAY JAY Albuterol/Ipratropium (Albuterol/Ipratropium 3 Ml Ampul) 3 ml INH RTQ4HR JAY JAY Last Admin: 07/02/23 15:30 Dose: 3 ml Documented By: Admin: 07/02/23 11:24 Dose: Not Given Documented By: Admin: 07/02/23 07:35 Dose: 3 ml Documented By: Admin: 07/02/23 03:03 Dose: 3 ml Documented By: Admin: 07/01/23 23:36 Dose: 3 ml Documented By: Admin: 07/01/23 18:33 Dose: 3 ml Documented By: Admin: 07/01/23 18:33 Dose: Not Given Documented By: Admin: 07/01/23 10:16 Dose: 3 ml Documented By: Admin: 07/01/23 07:46 Dose: 3 ml Documented By: Admin: 07/01/23 03:28 Dose: 3 ml Documented By: Admin: 06/30/23 23:37 Dose: 3 ml Documented By: Admin: 06/30/23 19:20 Dose: 3 ml Documented By: Admin: 06/30/23 14:50 Dose: 3 ml Documented By: Admin: 06/30/23 11:37 Dose: 3 ml Documented By: Admin: 06/30/23 06:11 Dose: 3 ml Documented By: Admin: 06/30/23 02:46 Dose: 3 ml Documented By: Admin: 06/29/23 22:04 Dose: 3 ml Documented By: Admin: 06/29/23 18:29 Dose: 3 ml Documented By: Admin: 06/29/23 14:55 Dose: 3 ml Documented By: Admin: 06/29/23 09:22 Dose: 3 ml Documented By: Admin: 06/29/23 06:11 Dose: 3 ml Documented By: Admin: 06/29/23 02:21 Dose: 3 ml Documented By: Admin: 06/28/23 22:12 Dose: 3 ml Documented By: Admin: 06/28/23 19:05 Dose: 3 ml Documented By: Admin: 06/28/23 15:03 Dose: 3 ml Documented By: Admin: 06/28/23 09:17 Dose: 3 ml Documented By: Admin: 06/28/23 07:14 Dose: 3 ml Documented By: Admin: 06/28/23 06:40 Dose: Not Given Documented By: Admin: 06/28/23 00:01 Dose: Not Given Documented By: Admin: 06/27/23 20:06 Dose: 3 ml Documented By: FELISA Aspirin (Aspirin Ec 81 Mg Tablet) 81 mg PO DAILY COUNTS INCLUDE 234 BEDS AT THE [facility] Last Admin: 07/02/23 09:30 Dose: 81 mg Documented By: Admin: 07/01/23 08:43 Dose: 81 mg Documented By: Admin: 06/30/23 08:41 Dose: 81 mg Documented By: Admin: 06/29/23 08:13 Dose: 81 mg Documented By: Admin: 06/28/23 08:35 Dose: 81 mg Documented By: MP Atorvastatin Calcium (Atorvastatin 20 Mg Tablet) 80 mg PO BEDTIME COUNTS INCLUDE 234 BEDS AT THE [facility] Last Admin: 07/01/23 21:03 Dose: 80 mg Documented By: Admin: 06/30/23 21:22 Dose: 80 mg Documented By: Admin: 06/29/23 21:37 Dose: 80 mg Documented By: Admin: 06/28/23 20:13 Dose: 80 mg Documented By: Admin: 06/27/23 20:40 Dose: 80 mg Documented By: Chlorhexidine Gluconate (Chlorhexidine Gluconate 15 Ml Cup) 15 ml PO Q6HR COUNTS INCLUDE 234 BEDS AT THE [facility] Chlorhexidine Gluconate (Chlorhexidine Gluconate 15 Ml Cup) 15 ml PO BID COUNTS INCLUDE 234 BEDS AT THE [facility] Last Admin: 07/02/23 09:29 Dose: 15 ml Documented By: Admin: 07/01/23 21:03 Dose: 15 ml Documented By: Admin: 07/01/23 08:43 Dose: 15 ml Documented By: Admin: 06/30/23 21:22 Dose: 15 ml Documented By: Admin: 06/30/23 08:41 Dose: 15 ml Documented By: Admin: 06/29/23 21:38 Dose: 15 ml Documented By: Admin: 06/29/23 08:13 Dose: 15 ml Documented By: Admin: 06/28/23 20:13 Dose: 15 ml Documented By: Admin: 06/28/23 08:30 Dose: 15 ml Documented By: Admin: 06/27/23 21:50 Dose: 15 ml Documented By: Sodium Chloride 9 ml/ (Epinephrine HCl 0.1 mg) 0 ml IV NOW ONE Stop: 06/27/23 13:38 Last Admin: 06/27/23 13:45 Dose: 1 ml Documented By: KEZIA Famotidine (Famotidine 20 Mg/2 Ml Vial) 20 mg IV BID COUNTS INCLUDE 234 BEDS AT THE [facility] Last Admin: 06/28/23 08:30 Dose: 20 mg Documented By: Admin: 06/27/23 20:40 Dose: 20 mg Documented By: Famotidine (Famotidine 20 Mg/2 Ml Vial) 20 mg IV DAILY COUNTS INCLUDE 234 BEDS AT THE [facility] Last Admin: 07/02/23 09:29 Dose: 20 mg Documented By: Admin: 07/01/23 08:43 Dose: 20 mg Documented By: Admin: 06/30/23 08:41 Dose: 20 mg Documented By: Admin: 06/29/23 08:13 Dose: 20 mg Documented By: MP Fentanyl (Fentanyl 100 Mcg/2 Ml Inj) 50 mcg IV Q30M PRN PRN Reason: Pain, Severe (7-10) Last Admin: 06/27/23 16:21 Dose: 50 mcg Documented By: Admin: 06/27/23 14:44 Dose: 50 mcg Documented By: Admin: 06/27/23 12:57 Dose: 50 mcg Documented By: CANDIDA Fentanyl (Fentanyl 100 Mcg/2 Ml Inj) 50 mcg IV NOW ONE Stop: 06/27/23 13:20 Last Admin: 06/27/23 13:07 Dose: 50 mcg Documented By: CANDIDA Furosemide (Furosemide 40 Mg/4 Ml Vial) 40 mg IV NOW ONE Stop: 06/27/23 07:38 Last Admin: 06/27/23 07:39 Dose: 40 mg Documented By: KM Furosemide (Furosemide 40 Mg/4 Ml Vial) 40 mg IV NOW ONE Stop: 06/27/23 11:55 Last Admin: 06/27/23 12:01 Dose: 40 mg Documented By: ANIKA Furosemide (Furosemide 40 Mg/4 Ml Vial) 40 mg IV 1600,0800 COUNTS INCLUDE 234 BEDS AT THE [facility] Furosemide (Furosemide 20 Mg/2 Ml Vial) 20 mg IV NOW ONE Stop: 06/30/23 12:04 Last Admin: 06/30/23 12:43 Dose: 20 mg Documented By: MP Heparin Sodium (Porcine) (Heparin 5,000 Unit/Ml Vial) 5,000 unit SUBCUT Q8HR COUNTS INCLUDE 234 BEDS AT THE [facility] Last Admin: 06/28/23 05:05 Dose: 5,000 unit Documented By: Admin: 06/27/23 21:50 Dose: 5,000 unit Documented By: Heparin Sodium (Porcine) (Heparin 5,000 Unit/Ml Vial) 7,000 unit 60 unit/kg (7000 unit) IV NOW ONE Stop: 06/28/23 07:51 Last Admin: 06/28/23 08:38 Dose: 7,000 unit Documented By: MP Heparin Sodium (Porcine) (Heparin 5,000 Unit/Ml Vial) 5,000 unit SUBCUT BID COUNTS INCLUDE 234 BEDS AT THE [facility] Last Admin: 07/02/23 09:29 Dose: 5,000 unit Documented By: Admin: 07/01/23 21:03 Dose: 5,000 unit Documented By: Admin: 07/01/23 08:43 Dose: 5,000 unit Documented By: Admin: 06/30/23 21:22 Dose: 5,000 unit Documented By: Admin: 06/30/23 11:01 Dose: 5,000 unit Documented By: MP Heparin Sodium (Porcine) (Heparin Flush (Cl/Picc/Mid-Line) 50 Unit/5 Ml Syringe) 50 unit IV PRN PRN PRN Reason: Flush Heparin Sodium (Porcine) (Heparin Flush (Cl/Picc/Mid-Line) 50 Unit/5 Ml Syringe) 50 unit IV BID JAY JAY Last Admin: 07/02/23 09:24 Dose: 50 unit Documented By: Admin: 07/01/23 21:04 Dose: 50 unit Documented By: IVANIA Piperacillin Sod/Tazobactam (Sod 4.5 gm/ Sodium Chloride) 100 mls @ 200 mls/hr IV NOW ONE Stop: 06/27/23 09:35 Last Infusion: 06/27/23 10:18 Dose: Infused Documented By: Admin: 06/27/23 09:41 Dose: 200 mls/hr Documented By: ISAI Vancomycin HCl/Dextrose (Vancomycin) 1,500 mg in 300 mls @ 200 mls/hr IV NOW ONE Stop: 06/27/23 11:44 Last Infusion: 06/27/23 11:57 Dose: Infused Documented By: Admin: 06/27/23 10:18 Dose: 200 mls/hr Documented By: ISAI Fentanyl 1,000 mcg/ Dextrose 250 mls @ 21.175 mls/hr IV TITRATE JAY JAY; Protocol Last Titration: 06/27/23 23:06 Dose: 0 mcg/kg/hr, 0 mls/hr Documented By: Titration: 06/27/23 21:34 Dose: 0.3 mcg/kg/hr, 9.075 mls/hr Documented By: Admin: 06/27/23 13:01 Dose: 0.7 mcg/kg/hr, 21.175 mls/hr Documented By: CANDIDA Propofol (Propofol) 1,000 mg in 100 mls @ 7.26 mls/hr IV TITRATE JAY JAY; Protocol Last Admin: 07/02/23 13:13 Dose: 6.89 mcg/kg/min, 5 mls/hr Documented By: Titration: 07/02/23 13:13 Dose: Infused Documented By: Titration: 07/01/23 08:55 Dose: 0 mcg/kg/min, 0 mls/hr Documented By: Admin: 07/01/23 01:47 Dose: 5 mcg/kg/min, 3.63 mls/hr Documented By: Titration: 07/01/23 01:47 Dose: Infused Documented By: Titration: 06/30/23 12:10 Dose: 5 mcg/kg/min, 3.63 mls/hr Documented By: Titration: 06/30/23 11:43 Dose: 0 mcg/kg/min, 0 mls/hr Documented By: Titration: 06/30/23 09:43 Dose: 5 mcg/kg/min, 3.63 mls/hr Documented By: Titration: 06/30/23 08:12 Dose: 0 mcg/kg/min, 0 mls/hr Documented By: Titration: 06/30/23 07:37 Dose: 5 mcg/kg/min, 3.63 mls/hr Documented By: Titration: 06/30/23 06:47 Dose: 10 mcg/kg/min, 7.26 mls/hr Documented By: Titration: 06/30/23 05:00 Dose: 13 mcg/kg/min, 9.438 mls/hr Documented By: Admin: 06/30/23 03:50 Dose: 15 mcg/kg/min, 10.89 mls/hr Documented By: Titration: 06/30/23 03:50 Dose: Infused Documented By: Admin: 06/29/23 18:39 Dose: 15 mcg/kg/min, 10.89 mls/hr Documented By: Titration: 06/29/23 18:39 Dose: Infused Documented By: Admin: 06/29/23 10:56 Dose: 15 mcg/kg/min, 10.89 mls/hr Documented By: Titration: 06/29/23 10:56 Dose: Infused Documented By: Titration: 06/29/23 09:13 Dose: 15 mcg/kg/min, 10.89 mls/hr Documented By: Titration: 06/29/23 07:49 Dose: 20 mcg/kg/min, 14.52 mls/hr Documented By: Admin: 06/29/23 04:27 Dose: 25 mcg/kg/min, 18.15 mls/hr Documented By: Titration: 06/29/23 04:27 Dose: Infused Documented By: Admin: 06/29/23 00:11 Dose: 25 mcg/kg/min, 18.15 mls/hr Documented By: Titration: 06/28/23 23:46 Dose: Infused Documented By: Admin: 06/28/23 18:15 Dose: 25 mcg/kg/min, 18.15 mls/hr Documented By: Titration: 06/28/23 18:15 Dose: Infused Documented By: Admin: 06/28/23 14:06 Dose: 25 mcg/kg/min, 18.15 mls/hr Documented By: Titration: 06/28/23 12:38 Dose: Infused Documented By: Admin: 06/28/23 08:38 Dose: 34.44 mcg/kg/min, 25 mls/hr Documented By: Titration: 06/28/23 07:53 Dose: Infused Documented By: Titration: 06/28/23 05:59 Dose: 34.44 mcg/kg/min, 25 mls/hr Documented By: Titration: 06/28/23 04:22 Dose: 27.55 mcg/kg/min, 20 mls/hr Documented By: Admin: 06/28/23 03:01 Dose: 20.66 mcg/kg/min, 15 mls/hr Documented By: Titration: 06/28/23 02:00 Dose: Infused Documented By: Titration: 06/28/23 00:03 Dose: 27.55 mcg/kg/min, 20 mls/hr Documented By: Titration: 06/27/23 21:33 Dose: 41.32 mcg/kg/min, 30 mls/hr Documented By: Admin: 06/27/23 21:03 Dose: 48.21 mcg/kg/min, 35 mls/hr Documented By: Titration: 06/27/23 17:12 Dose: Infused Documented By: Titration: 06/27/23 15:00 Dose: 48.21 mcg/kg/min, 35 mls/hr Documented By: Titration: 06/27/23 14:44 Dose: 25 mcg/kg/min, 18.15 mls/hr Documented By: Admin: 06/27/23 13:01 Dose: 15 mcg/kg/min, 10.89 mls/hr Documented By: CANDIDA Sodium Chloride (Normal Saline 0.9%) 1,000 mls @ 1,000 mls/hr IV BOLUS ONE Stop: 06/27/23 14:31 Last Infusion: 06/27/23 15:21 Dose: Infused Documented By: Admin: 06/27/23 13:32 Dose: 1,000 mls/hr Documented By: RL NOREPINEPHRINE BITARTRATE/D5W (Levophed) 4 mg in 250 mls @ 45.375 mls/hr IV TITRATE JAY JAY; Protocol Last Titration: 07/02/23 02:00 Dose: 0.01 mcg/kg/min, 4.538 mls/hr Documented By: Titration: 07/02/23 01:45 Dose: 0 mcg/kg/min, 0 mls/hr Documented By: Admin: 07/01/23 23:19 Dose: 0.01 mcg/kg/min, 4.538 mls/hr Documented By: Titration: 07/01/23 23:19 Dose: Infused Documented By: Titration: 06/29/23 06:30 Dose: 0 mcg/kg/min, 0 mls/hr Documented By: Admin: 06/29/23 06:27 Dose: 0.01 mcg/kg/min, 3.7 mls/hr Documented By: Titration: 06/29/23 06:27 Dose: Infused Documented By: Titration: 06/28/23 17:32 Dose: 0.01 mcg/kg/min, 3.7 mls/hr Documented By: Titration: 06/28/23 05:13 Dose: 0.02 mcg/kg/min, 7.5 mls/hr Documented By: Titration: 06/28/23 04:30 Dose: 0.01 mcg/kg/min, 4 mls/hr Documented By: Titration: 06/28/23 04:00 Dose: 0.02 mcg/kg/min, 8 mls/hr Documented By: Titration: 06/27/23 22:40 Dose: 0 mcg/kg/min, 0 mls/hr Documented By: Admin: 06/27/23 21:04 Dose: 0.05 mcg/kg/min, 22.688 mls/hr Documented By: Titration: 06/27/23 21:04 Dose: Infused Documented By: Titration: 06/27/23 14:55 Dose: 0.05 mcg/kg/min, 22.688 mls/hr Documented By: Titration: 06/27/23 14:49 Dose: 0.1 mcg/kg/min, 45.375 mls/hr Documented By: Admin: 06/27/23 13:40 Dose: 0.05 mcg/kg/min, 22.688 mls/hr Documented By: CANDIDA Meropenem 2 gm/ Sodium (Chloride) 100 mls @ 200 mls/hr IV Q12H JAY JAY Last Infusion: 06/30/23 15:28 Dose: Infused Documented By: Admin: 06/30/23 05:57 Dose: 200 mls/hr Documented By: Infusion: 06/29/23 17:55 Dose: Infused Documented By: Admin: 06/29/23 17:25 Dose: 200 mls/hr Documented By: Infusion: 06/29/23 05:41 Dose: Infused Documented By: Admin: 06/29/23 05:11 Dose: 200 mls/hr Documented By: Infusion: 06/28/23 17:49 Dose: Infused Documented By: Admin: 06/28/23 17:19 Dose: 200 mls/hr Documented By: Infusion: 06/28/23 05:34 Dose: Infused Documented By: Admin: 06/28/23 05:04 Dose: 200 mls/hr Documented By: Infusion: 06/27/23 19:10 Dose: Infused Documented By: Admin: 06/27/23 18:38 Dose: 200 mls/hr Documented By: STAN Dextrose (D10w) 100 mls @ 999 mls/hr IV PRN PRN PRN Reason: Hypoglycemia INSULIN DRIP PREMIX (Myxredlin Drip Premix) 100 unit in 100 mls @ 6 mls/hr IV TITRATE JAY JAY; Protocol Last Titration: 06/28/23 12:00 Dose: 0 mls/hr, 0 mls/hr Documented By: MP Co-signed By: JUANITO Titration: 06/28/23 04:58 Dose: 1.5 mls/hr, 1.5 mls/hr Documented By: Co-signed By: IVANIA Titration: 06/28/23 04:07 Dose: 5 mls/hr, 5 mls/hr Documented By: Co-signed By: IVANIA Titration: 06/28/23 03:00 Dose: 1.5 mls/hr, 1.5 mls/hr Documented By: Co-signed By: IVANIA Titration: 06/28/23 01:00 Dose: 7 mls/hr, 7 mls/hr Documented By: Co-signed By: SMS Admin: 06/28/23 00:16 Dose: 16 mls/hr, 16 mls/hr Documented By: Co-signed By: SMS Titration: 06/28/23 00:16 Dose: Infused Documented By: Co-signed By: SMS Titration: 06/28/23 00:03 Dose: 16 mls/hr, 16 mls/hr Documented By: Co-signed By: SMS Titration: 06/27/23 23:06 Dose: 28 mls/hr, 28 mls/hr Documented By: Co-signed By: SMS Titration: 06/27/23 22:00 Dose: 24 mls/hr, 24 mls/hr Documented By: Co-signed By: SMS Titration: 06/27/23 21:00 Dose: 14 mls/hr, 14 mls/hr Documented By: Co-signed By: SMS Titration: 06/27/23 20:00 Dose: 8 mls/hr, 8 mls/hr Documented By: Co-signed By: SMS Admin: 06/27/23 18:19 Dose: 4 mls/hr, 4 mls/hr Documented By: STAN Co-signed By: JUANITO dexmedeTOMIDine in 0.9 % NaCL (Precedex) 400 mcg in 100 mls @ 5.975 mls/hr IV TITRATE JAY JAY; Protocol Last Admin: 07/02/23 17:22 Dose: 0.4 mcg/kg/hr, 11.95 mls/hr Documented By: Titration: 07/02/23 09:57 Dose: Infused Documented By: Admin: 07/02/23 01:34 Dose: 0.4 mcg/kg/hr, 11.95 mls/hr Documented By: Titration: 07/02/23 01:34 Dose: Infused Documented By: Titration: 07/02/23 00:45 Dose: 0.4 mcg/kg/hr, 11.95 mls/hr Documented By: Titration: 07/01/23 22:09 Dose: 0.3 mcg/kg/hr, 8.963 mls/hr Documented By: Admin: 07/01/23 18:10 Dose: 0.4 mcg/kg/hr, 11.95 mls/hr Documented By: Titration: 07/01/23 18:10 Dose: Infused Documented By: Admin: 07/01/23 11:37 Dose: 0.4 mcg/kg/hr, 11.95 mls/hr Documented By: Titration: 07/01/23 11:37 Dose: Infused Documented By: Admin: 07/01/23 04:16 Dose: 0.4 mcg/kg/hr, 11.95 mls/hr Documented By: Titration: 07/01/23 04:10 Dose: Infused Documented By: Admin: 06/30/23 19:47 Dose: 0.4 mcg/kg/hr, 11.95 mls/hr Documented By: Titration: 06/30/23 19:36 Dose: Infused Documented By: Admin: 06/30/23 11:13 Dose: 0.4 mcg/kg/hr, 11.95 mls/hr Documented By: Titration: 06/30/23 11:13 Dose: Infused Documented By: Admin: 06/30/23 03:06 Dose: 0.4 mcg/kg/hr, 11.95 mls/hr Documented By: Titration: 06/30/23 03:06 Dose: Infused Documented By: Admin: 06/29/23 18:43 Dose: 0.4 mcg/kg/hr, 11.95 mls/hr Documented By: Titration: 06/29/23 18:43 Dose: Infused Documented By: Admin: 06/29/23 10:55 Dose: 0.4 mcg/kg/hr, 11.95 mls/hr Documented By: Titration: 06/29/23 10:38 Dose: Infused Documented By: Admin: 06/29/23 02:15 Dose: 0.4 mcg/kg/hr, 11.95 mls/hr Documented By: Titration: 06/29/23 02:15 Dose: Infused Documented By: Admin: 06/28/23 18:14 Dose: 0.4 mcg/kg/hr, 11.95 mls/hr Documented By: Titration: 06/28/23 18:14 Dose: Infused Documented By: Admin: 06/28/23 10:51 Dose: 0.4 mcg/kg/hr, 11.95 mls/hr Documented By: Titration: 06/28/23 10:51 Dose: Infused Documented By: Titration: 06/28/23 05:58 Dose: 0.3 mcg/kg/hr, 8.963 mls/hr Documented By: Titration: 06/28/23 05:13 Dose: 0.2 mcg/kg/hr, 5.975 mls/hr Documented By: Admin: 06/28/23 00:14 Dose: 0.3 mcg/kg/hr, 8.963 mls/hr Documented By: Titration: 06/28/23 00:14 Dose: Infused Documented By: Titration: 06/27/23 23:00 Dose: 0.3 mcg/kg/hr, 8.963 mls/hr Documented By: Admin: 06/27/23 20:33 Dose: 0.2 mcg/kg/hr, 5.975 mls/hr Documented By: Vancomycin HCl/Dextrose (Vancomycin) 2,000 mg in 400 mls @ 200 mls/hr IV Q24H JAY JAY Epinephrine HCl 4 mg/ Dextrose 250 mls @ 7.5 mls/hr IV TITRATE JAY JAY; Protocol Last Titration: 06/28/23 03:50 Dose: 0 mcg/min, 0 mls/hr Documented By: Admin: 06/27/23 23:02 Dose: 2 mcg/min, 7.5 mls/hr Documented By: Magnesium Sulfate (Magnesium Sulfate) 2 gm in 50 mls @ 25 mls/hr IV NOW ONE Stop: 06/27/23 23:41 Last Admin: 06/27/23 22:45 Dose: 25 mls/hr Documented By: Co-signed By: IVANIA Potassium Phosphate 20 mmol/ (Sodium Chloride) 106.6667 mls @ 25 mls/hr IV NOW ONE Stop: 06/28/23 03:15 Last Admin: 06/27/23 23:30 Dose: 25 mls/hr Documented By: Vasopressin 40 unit/ Sodium (Chloride) 102 mls @ 4.5 mls/hr IV CONT JAY JAY Last Infusion: 06/28/23 10:29 Dose: 0 mls/hr Documented By: Admin: 06/28/23 03:54 Dose: 4.5 mls/hr Documented By: NOREPINEPHRINE BITARTRATE/D5W (Levophed) 4 mg in 250 mls @ 44.813 mls/hr IV TITRATE JAY JAY; Protocol Last Admin: 06/28/23 07:27 Dose: Not Given Documented By: MP Heparin Sodium/Dextrose (Heparin Drip) 25,000 unit in 500 mls @ 28.68 mls/hr IV CONT JAY JAY; Protocol Stop: 06/30/23 07:59 Last Titration: 06/30/23 10:09 Dose: 0 units/kg/hr, 0 mls/hr Documented By: MP Co-signed By: TEP Titration: 06/30/23 05:20 Dose: 9.3 units/kg/hr, 22.227 mls/hr Documented By: PHILIP Co-signed By: Admin: 06/29/23 09:35 Dose: 8.3 units/kg/hr, 19.837 mls/hr Documented By: MP Co-signed By: BRIGHT Titration: 06/29/23 09:35 Dose: Infused Documented By: MP Co-signed By: BRIGHT Admin: 06/28/23 08:30 Dose: 8.3 units/kg/hr, 19.837 mls/hr Documented By: MP Co-signed By: JUANITO Vancomycin HCl (Vancomycin) 1,250 mg in 250 mls @ 250 mls/hr IV Q24H COUNTS INCLUDE 234 BEDS AT THE [facility] Last Infusion: 06/30/23 15:28 Dose: Infused Documented By: Admin: 06/30/23 11:45 Dose: 250 mls/hr Documented By: Infusion: 06/29/23 10:15 Dose: Infused Documented By: Admin: 06/29/23 09:15 Dose: 250 mls/hr Documented By: Infusion: 06/28/23 13:59 Dose: Infused Documented By: Admin: 06/28/23 09:24 Dose: 250 mls/hr Documented By: MP Potassium Phosphate 30 mmol/ (Sodium Chloride) 510 mls @ 85 mls/hr IV NOW ONE Stop: 06/28/23 17:29 Last Admin: 06/28/23 12:23 Dose: 85 mls/hr Documented By: MP Meropenem 2 gm/ Sodium (Chloride) 100 mls @ 200 mls/hr IV Q8H COUNTS INCLUDE 234 BEDS AT THE [facility] [facility] Last Admin: 07/02/23 13:54 Dose: 200 mls/hr Documented By: Infusion: 07/02/23 07:14 Dose: Infused Documented By: Admin: 07/02/23 05:42 Dose: 200 mls/hr Documented By: Infusion: 07/01/23 22:42 Dose: Infused Documented By: Admin: 07/01/23 22:09 Dose: 200 mls/hr Documented By: Infusion: 07/01/23 17:29 Dose: Infused Documented By: Admin: 07/01/23 13:25 Dose: 200 mls/hr Documented By: Infusion: 07/01/23 07:10 Dose: Infused Documented By: Admin: 07/01/23 06:40 Dose: 200 mls/hr Documented By: Infusion: 06/30/23 22:50 Dose: Infused Documented By: Admin: 06/30/23 22:20 Dose: 200 mls/hr Documented By: Infusion: 06/30/23 15:28 Dose: Infused Documented By: Admin: 06/30/23 14:25 Dose: 200 mls/hr Documented By: MP Vancomycin HCl (Vancomycin) 750 mg in 150 mls @ 150 mls/hr IV Q24H COUNTS INCLUDE 234 BEDS AT THE [facility] Potassium Phosphate 30 mmol/ (Sodium Chloride) 510 mls @ 127.5 mls/hr IV NOW ONE Stop: 07/01/23 12:09 Last Infusion: 07/01/23 20:00 Dose: Infused Documented By: Admin: 07/01/23 08:39 Dose: 127.5 mls/hr Documented By: RAFAEL Insulin Glargine (Insulin Glargine 100 Unit/Ml 3ml Pen) 20 unit SUBCUT BEDTIME COUNTS INCLUDE 234 BEDS AT THE [facility] Last Admin: 06/29/23 21:37 Dose: 20 unit Documented By: PHILIP Co-signed By: LYNN Admin: 06/29/23 10:39 Dose: 20 unit Documented By: MP Co-signed By: CW Insulin Glargine (Insulin Glargine 100 Unit/Ml 3ml Pen) 20 unit SUBCUT BID COUNTS INCLUDE 234 BEDS AT THE [facility] Last Admin: 07/01/23 08:44 Dose: 20 unit Documented By: RAFAEL Co-signed By: BT Admin: 06/30/23 21:22 Dose: 20 unit Documented By: PHILIP Co-signed By: Admin: 06/30/23 12:46 Dose: 20 unit Documented By: MP Co-signed By: TEP Insulin Glargine (Insulin Glargine 100 Unit/Ml 3ml Pen) 30 unit SUBCUT BID COUNTS INCLUDE 234 BEDS AT THE [facility] Last Admin: 07/02/23 09:31 Dose: 30 unit Documented By: RAFAEL Co-signed By: ELOISE Admin: 07/01/23 21:04 Dose: 30 unit Documented By: IVANIA Co-signed By: ANGEL LUIS Insulin Human Lispro (Insulin Lispro 100 Unit/Ml 3ml Vial) 0 unit SUBCUT Q6H COUNTS INCLUDE 234 BEDS AT THE [facility]; Protocol Last Admin: 06/30/23 06:14 Dose: 12 unit Documented By: HPILIP Co-signed By: Admin: 06/29/23 23:58 Dose: 10 unit Documented By: PHILIP Co-signed By: Admin: 06/29/23 17:21 Dose: 10 unit Documented By: MP Co-signed By: BRIGHT Admin: 06/29/23 10:39 Dose: 10 unit Documented By: MP Co-signed By: BRIGHT Insulin Human Lispro (Insulin Lispro 100 Unit/Ml 3ml Vial) 0 unit SUBCUT Q6HR JAY JAY; Protocol Last Admin: 07/02/23 13:00 Dose: 10 unit Documented By: RAFAEL Co-signed By: ELOISE Admin: 07/02/23 05:49 Dose: 4 unit Documented By: IVANIA Co-signed By: ANGEL LUIS Admin: 07/02/23 00:21 Dose: 2 unit Documented By: IVANIA Co-signed By: ANGEL LUIS Admin: 07/01/23 17:26 Dose: 12 unit Documented By: RAFAEL Co-signed By: ELOISE Admin: 07/01/23 11:46 Dose: 10 unit Documented By: RAFAEL Co-signed By: ELOISE Admin: 07/01/23 06:41 Dose: 10 unit Documented By: PHILIP Co-signed By: Admin: 06/30/23 23:46 Dose: 10 unit Documented By: PHILIP Co-signed By: Admin: 06/30/23 17:57 Dose: 10 unit Documented By: MP Co-signed By: NAVARRO Admin: 06/30/23 11:55 Dose: 12 unit Documented By: MP Co-signed By: NAVARRO Insulin Human NPH (Insulin Nph 100 Unit/Ml 10ml Vial) 15 unit SUBCUT NOW ONE Stop: 07/01/23 14:58 Last Admin: 07/01/23 15:07 Dose: 15 unit Documented By: RAFAEL Co-signed By: ELOISE Insulin Human Regular (Insulin Regular 100 Unit/Ml 3 Ml Vial) 8 unit IV NOW ONE Stop: 06/27/23 21:43 Last Admin: 06/27/23 22:07 Dose: 8 unit Documented By: Co-signed By: IVANIA Insulin Human Regular (Insulin Regular 100 Unit/Ml 3 Ml Vial) 0 unit SUBCUT Q6H COUNTS INCLUDE 234 BEDS AT THE [facility]; Protocol Last Admin: 06/29/23 05:31 Dose: 7 unit Documented By: LYNN Co-signed By: ELOISE(2) Admin: 06/28/23 23:26 Dose: 7 unit Documented By: LYNN Co-signed By: Admin: 06/28/23 17:01 Dose: 3 unit Documented By: MP Co-signed By: JUANITO Levothyroxine Sodium (Levothyroxine 75 Mcg Tablet) 75 mcg PO DAILY@0600 COUNTS INCLUDE 234 BEDS AT THE [facility] Last Admin: 07/02/23 05:48 Dose: 75 mcg Documented By: Admin: 07/01/23 06:40 Dose: 75 mcg Documented By: Admin: 06/30/23 05:56 Dose: 75 mcg Documented By: Admin: 06/29/23 05:11 Dose: 75 mcg Documented By: Admin: 06/28/23 05:05 Dose: 75 mcg Documented By: Levothyroxine Sodium (Levothyroxine 100 Mcg Tablet) 100 mcg PO DAILY@0600 COUNTS INCLUDE 234 BEDS AT THE [facility] Last Admin: 07/02/23 05:48 Dose: 100 mcg Documented By: Admin: 07/01/23 06:40 Dose: 100 mcg Documented By: Admin: 06/30/23 05:56 Dose: 100 mcg Documented By: Admin: 06/29/23 05:11 Dose: 100 mcg Documented By: Admin: 06/28/23 05:05 Dose: 100 mcg Documented By: Melatonin (Melatonin 3 Mg Tablet) 6 mg PO BEDTIME PRN PRN Reason: Insomnia Methylprednisolone (Methylprednisolone 125 Mg/2 Ml Vial) 125 mg IV NOW ONE Stop: 06/27/23 07:38 Last Admin: 06/27/23 07:40 Dose: 125 mg Documented By: ISAI Methylprednisolone (Methylprednisolone 125 Mg/2 Ml Vial) 60 mg IV Q12H COUNTS INCLUDE 234 BEDS AT THE [facility] Last Admin: 06/30/23 05:56 Dose: 60 mg Documented By: Admin: 06/29/23 17:25 Dose: 60 mg Documented By: Admin: 06/29/23 05:11 Dose: 60 mg Documented By: Admin: 06/28/23 17:02 Dose: 60 mg Documented By: Admin: 06/28/23 05:07 Dose: 60 mg Documented By: Admin: 06/27/23 18:05 Dose: 60 mg Documented By: STAN Naloxone HCl (Naloxone 0.4 Mg/Ml Vial) 0.2 mg IV Q2MIN PRN PRN Reason: Opiate Reversal Ondansetron HCl (Ondansetron 4 Mg/2 Ml Inj) 4 mg IV Q4HR PRN PRN Reason: Nausea And Vomiting Polyethylene Glycol (Polyethylene Glycol 3350 17 Gm Powd.Pack) 17 gm PO DAILY PRN PRN Reason: Constipation Last Admin: 07/02/23 13:12 Dose: 17 gm Documented By: Admin: 07/01/23 16:03 Dose: 17 gm Documented By: RAFAEL Potassium Chloride (Potassium Chloride 20 Meq/15 Ml Udc) 40 meq TUBE NOW ONE Stop: 06/30/23 10:43 Last Admin: 06/30/23 11:01 Dose: 40 meq Documented By: MP Prednisone (Prednisone 20 Mg Tablet) 40 mg PO DAILY COUNTS INCLUDE 234 BEDS AT THE [facility] Last Admin: 07/02/23 09:30 Dose: 40 mg Documented By: Admin: 07/01/23 08:43 Dose: 40 mg Documented By: Admin: 06/30/23 12:42 Dose: 40 mg Documented By: MP Propofol (Propofol 200 Mg/20 Ml Vial) 120 mg 1 mg/kg (120 mg) IV NOW ONE Stop: 06/27/23 12:18 Last Admin: 06/27/23 12:56 Dose: 120 mg Documented By: CANDIDA Propofol (Propofol 200 Mg/20 Ml Vial) 30 mg IV NOW ONE Stop: 06/27/23 13:20 Last Admin: 06/27/23 13:02 Dose: 30 mg Documented By: CANDIDA Sennosides (Sennosides 8.6 Mg Tablet) 8.6 mg PO BID PRN PRN Reason: Constipation Last Admin: 07/02/23 13:12 Dose: 8.6 mg Documented By: Admin: 07/01/23 16:04 Dose: 8.6 mg Documented By: RAFAEL Sodium Chloride (Sodium Chloride 0.9% Flush) 10 ml IV PRN PRN PRN Reason: Flush Sodium Chloride (Sodium Chloride 0.9% Flush) 10 ml IV BID COUNTS INCLUDE 234 BEDS AT THE [facility] Last Admin: 07/02/23 09:31 Dose: 10 ml Documented By: Admin: 07/01/23 21:04 Dose: 10 ml Documented By: IVANIA Vancomycin HCl (Vancomycin Peak) 1 request MISC 1200 ONE Stop: 06/30/23 12:01 Last Admin: 06/30/23 17:35 Dose: Not Given Documented By: MP Vancomycin HCl (Vancomycin Trough) 1 request MISC 0930 ONE Stop: 06/30/23 09:31 Last Admin: 06/30/23 17:34 Dose: Not Given Documented By: MP Vancomycin HCl (Vancomycin Trough) 1 request MISC 1330 ONE Stop: 07/03/23 13:31 Vancomycin HCl (Vancomycin Peak) 1 request MISC 1600 ONE Stop: 07/03/23 16:01 Vital Signs Vital signs: Vital Signs - 8 hr 06/27/23 07:28 06/27/23 07:29 06/27/23 07:30 Temperature 97.8 F Pulse Rate 100 H 100 H 100 H Respiratory Rate 24 Blood Pressure Pulse Oximetry 77 L 78 L 78 L Oxygen Delivery Method CPAP Fraction of Inspired Oxygen 06/27/23 07:33 06/27/23 07:33 06/27/23 07:44 Temperature Pulse Rate 100 H Respiratory Rate 34 H Blood Pressure 133/77 Pulse Oximetry 80 L Oxygen Delivery Method CPAP Fraction of Inspired Oxygen 50 06/27/23 07:50 06/27/23 07:50 06/27/23 07:56 Temperature Pulse Rate 95 H Respiratory Rate 23 Blood Pressure 136/78 132/58 L Pulse Oximetry 94 Oxygen Delivery Method BiPAP Fraction of Inspired Oxygen 06/27/23 07:56 06/27/23 08:00 06/27/23 08:00 Temperature Pulse Rate 94 H 96 H Respiratory Rate 28 H 33 H Blood Pressure 124/84 Pulse Oximetry 92 90 L Oxygen Delivery Method Fraction of Inspired Oxygen 06/27/23 08:05 06/27/23 08:05 06/27/23 08:10 Temperature Pulse Rate 96 H Respiratory Rate Blood Pressure 147/67 H 151/71 H Pulse Oximetry Oxygen Delivery Method Fraction of Inspired Oxygen 06/27/23 08:10 06/27/23 08:15 06/27/23 08:15 Temperature Pulse Rate 97 H 96 H Respiratory Rate 31 H 33 H Blood Pressure 142/70 H Pulse Oximetry 96 91 Oxygen Delivery Method Fraction of Inspired Oxygen 06/27/23 08:20 06/27/23 08:20 06/27/23 08:25 Temperature Pulse Rate 95 H Respiratory Rate 33 H Blood Pressure 138/78 131/74 Pulse Oximetry 90 L Oxygen Delivery Method Fraction of Inspired Oxygen 06/27/23 08:25 06/27/23 08:30 06/27/23 08:31 Temperature Pulse Rate 94 H 95 H 95 H Respiratory Rate 31 H 33 H 33 H Blood Pressure Pulse Oximetry 90 L 91 90 L Oxygen Delivery Method Fraction of Inspired Oxygen 06/27/23 08:31 06/27/23 08:40 06/27/23 09:00 Temperature Pulse Rate 94 H Respiratory Rate 26 H Blood Pressure 147/66 H 147/66 H Pulse Oximetry 92 Oxygen Delivery Method Fraction of Inspired Oxygen 50 06/27/23 09:30 06/27/23 09:30 06/27/23 09:41 Temperature Pulse Rate 93 H Respiratory Rate 21 Blood Pressure 122/70 136/65 Pulse Oximetry 94 Oxygen Delivery Method Fraction of Inspired Oxygen 06/27/23 09:41 06/27/23 09:50 06/27/23 10:00 Temperature Pulse Rate 93 H 92 H Respiratory Rate 29 H 25 H Blood Pressure 136/65 Pulse Oximetry 93 93 Oxygen Delivery Method Fraction of Inspired Oxygen 50 06/27/23 10:01 06/27/23 10:01 06/27/23 10:16 Temperature Pulse Rate 92 H Respiratory Rate 28 H Blood Pressure 101/59 L 112/53 L Pulse Oximetry 92 Oxygen Delivery Method Fraction of Inspired Oxygen 06/27/23 10:16 06/27/23 10:19 06/27/23 10:20 Temperature Pulse Rate 91 H 91 H Respiratory Rate 23 21 Blood Pressure 108/58 L Pulse Oximetry 91 91 Oxygen Delivery Method Fraction of Inspired Oxygen 06/27/23 10:20 06/27/23 10:30 06/27/23 10:40 Temperature Pulse Rate 92 H 91 H Respiratory Rate 28 H 27 H Blood Pressure 115/64 Pulse Oximetry 90 L 90 L Oxygen Delivery Method Fraction of Inspired Oxygen 06/27/23 10:40 06/27/23 10:45 06/27/23 11:00 Temperature Pulse Rate 91 H 89 87 Respiratory Rate 24 20 22 Blood Pressure Pulse Oximetry 92 93 91 Oxygen Delivery Method Fraction of Inspired Oxygen 06/27/23 11:00 06/27/23 11:15 06/27/23 11:21 Temperature Pulse Rate 86 Respiratory Rate 24 Blood Pressure 123/65 125/60 Pulse Oximetry 90 L Oxygen Delivery Method Fraction of Inspired Oxygen 06/27/23 11:21 06/27/23 11:30 06/27/23 11:40 Temperature Pulse Rate 86 86 86 Respiratory Rate 19 21 16 Blood Pressure Pulse Oximetry 91 91 93 Oxygen Delivery Method BiPAP Fraction of Inspired Oxygen 06/27/23 11:40 06/27/23 11:45 06/27/23 12:00 Temperature Pulse Rate 85 Respiratory Rate 21 Blood Pressure 119/62 104/64 Pulse Oximetry 93 Oxygen Delivery Method BiPAP Fraction of Inspired Oxygen 06/27/23 12:00 06/27/23 12:05 06/27/23 12:05 Temperature Pulse Rate 85 86 Respiratory Rate 24 27 H Blood Pressure 109/59 L Pulse Oximetry 93 94 Oxygen Delivery Method BiPAP BiPAP Fraction of Inspired Oxygen 06/27/23 12:15 06/27/23 12:20 06/27/23 12:20 Temperature Pulse Rate 86 86 Respiratory Rate 20 20 Blood Pressure 109/60 Pulse Oximetry 94 95 Oxygen Delivery Method BiPAP BiPAP Fraction of Inspired Oxygen 06/27/23 12:30 06/27/23 12:40 06/27/23 12:40 Temperature Pulse Rate 86 86 Respiratory Rate 20 19 Blood Pressure 115/64 Pulse Oximetry 95 96 Oxygen Delivery Method BiPAP BiPAP Fraction of Inspired Oxygen 06/27/23 12:45 06/27/23 13:00 06/27/23 13:03 Temperature Pulse Rate 86 81 Respiratory Rate 18 17 Blood Pressure 128/87 Pulse Oximetry 95 98 Oxygen Delivery Method BiPAP Mechanical Ventilation Fraction of Inspired Oxygen 06/27/23 13:03 06/27/23 13:15 Temperature Pulse Rate 81 74 Respiratory Rate 9 L 16 Blood Pressure Pulse Oximetry 99 97 Oxygen Delivery Method Fraction of Inspired Oxygen MDM - SOB/Dyspnea Lab Data 07/02/23 04:45 07/02/23 04:45 Labs: Lab Results 06/27/23 06/27/23 06/27/23 Range/Units 07:30 07:53 08:07 WBC 13.9 H (4.5-11.0) X10^3/uL RBC 3.84 L (4.0-5.2) X10^6/uL Hgb 12.5 (12.0-16.0) g/dL Hct 39.2 (36-46) % MCV 102.0 H (80-100) fL MCH 32.6 (26-34) PG MCHC 32.0 (30-36) % RDW 18.7 H (11.6-14.8) % Plt Count 327 (150-400) X10^3/uL Neut % (Auto) 77.0 H (50-75) % Lymph % (Auto) 14.6 L (25-40) % [place] % (Auto) 6.5 (3-14) % Eos % (Auto) 1.1 L (2-4) % Baso % (Auto) 0.8 (0-2) % Neut # (Auto) 54444 H (7264-3460) /uL Lymph # (Auto) 2000 (6278-4655) /uL [place] # (Auto) 900 (0-900) /uL Eos # (Auto) 100 (0-450) /uL Baso # (Auto) 100 (0-100) /uL PT 12.2 (9.4-12.5) SECONDS INR 1.1 (0.9-1.3) ABG Sample Site Right radial ABG pH 7.27 L* (7.35-7.45) ABG pCO2 93.0 H* (35-45) mmHg ABG pO2 95 (80-100) mmHg ABG HCO3 43 H (23-27) mmol/L ABG Total CO2 45 H (23-27) mmol/L ABG O2 Saturation 95 (95-100) % ABG Base Excess 16.0 H (-2-3) mmol/L VBG pH VBG pCO2 VBG pO2 VBG HCO3 VBG Total CO2 VBG O2 Saturation VBG Base Excess FiO2 50 Sodium (137-145) mmol/L Potassium (3.4-5.1) mmol/L Chloride (98-107) mmol/L Carbon Dioxide (22-32) mmol/L BUN (7-17) mg/dL Creatinine (0.52-1.04) mg/dL Estimated GFR (>60) mL/min BUN/Creatinine Ratio (6-22) Glucose (80-110) mg/dL Hemoglobin A1c 9.3 H (4.0-6.0) % Lactate 1.0 (0.7-2.1) mmol/L Calcium (8.4-10.2) mg/dL Total Bilirubin (0.2-1.3) mg/dL AST (14-36) IU/L ALT (<35) IU/L Alkaline Phosphatase (38-126) U/L Total Creatine Kinase (30-135) U/L Troponin I (0.01-0.034) ng/mL NT-Pro-B Natriuret Pep (<125) pg/mL Total Protein (6.3-8.2) g/dL Albumin (3.5-5.0) g/dL Globulin (1.7-4.1) g/dL Albumin/Globulin Ratio (1.0-2.8) Procalcitonin (<0.5) ng/mL Urine Color Yellow Urine Appearance Cloudy Urine pH 5.5 (4.5-8.0) Ur Specific [place] 1.025 (1.000-1.035) Urine Protein 1+ H (Negative) Urine Glucose (UA) 1+ H (Negative) g/dL Urine Ketones Negative (NEGATIVE) Urine Occult Blood 2+ H (Negative) Urine Nitrate Negative (Negative) Urine Bilirubin Negative (NEGATIVE) Urine Urobilinogen 0.2 (0.2) E.U./dL Ur Leukocyte Esterase 3+ H (NEGATIVE) Urine RBC None seen (0-5/HPF) Urine WBC 30-100/hpf H (0-5/HPF) Ur Squamous Epith Cells None seen (0-5/HPF) Urine Bacteria Many (>30) H (None) Ur Culture Indicated? Specimen cultured Vol Urine Centrifuged 10ml (spun) Chlamy pneumoniae PCR Not detected (Not Detect) Adenovirus (PCR) Not detected (Not Detect) B.parapertussis DNA PCR Not detected (Not Detecte) Coronavirus OC43 (PCR) Not detected (Not Detect) Coronavirus HKU1 (PCR) Not detected (Not Detect) Coronavirus 229E (PCR) Not detected (Not Detect) SARS-CoV-2 (PCR) Not detected (Not Detecte) Coronavirus NL63 (PCR) Not detected (Not Detect) Human Metapneumovir PCR Not detected (Not Detect) Influenza Type A (PCR) Not detected (Not Detect) Influenza Type B (PCR) Not detected (Not Detect) M. pneumoniae (PCR) Not detected (Not Detect) Parainfluenza 1 (PCR) Not detected (Not Detect) Parainfluenza 2 (PCR) Not detected (Not Detect) Parainfluenza 3 (PCR) Not detected (Not Detect) Parainfluenza 4 (PCR) Not detected (Not Detect) RSV (PCR) Not detected (Not Detect) Entero/Rhino (PCR) Not detected (Not Detect) 06/27/23 06/27/23 06/27/23 Range/Units 08:10 09:30 09:40 WBC (4.5-11.0) X10^3/uL RBC (4.0-5.2) X10^6/uL Hgb (12.0-16.0) g/dL Hct (36-46) % MCV (80-100) fL MCH (26-34) PG MCHC (30-36) % RDW (11.6-14.8) % Plt Count (150-400) X10^3/uL Neut % (Auto) (50-75) % Lymph % (Auto) (25-40) % [place] % (Auto) (3-14) % Eos % (Auto) (2-4) % Baso % (Auto) (0-2) % Neut # (Auto) (2664-4691) /uL Lymph # (Auto) (3845-7251) /uL [place] # (Auto) (0-900) /uL Eos # (Auto) (0-450) /uL Baso # (Auto) (0-100) /uL PT (9.4-12.5) SECONDS INR (0.9-1.3) ABG Sample Site Right radial ABG pH 7.22 L* (7.35-7.45) ABG pCO2 106.4 H* (35-45) mmHg ABG pO2 90 (80-100) mmHg ABG HCO3 44 H (23-27) mmol/L ABG Total CO2 47 H (23-27) mmol/L ABG O2 Saturation 94 L (95-100) % ABG Base Excess 16.0 H (-2-3) mmol/L VBG pH VBG pCO2 VBG pO2 VBG HCO3 VBG Total CO2 VBG O2 Saturation VBG Base Excess FiO2 50 Sodium 143 (137-145) mmol/L Potassium 4.3 (3.4-5.1) mmol/L Chloride 98 (98-107) mmol/L Carbon Dioxide 40 H* (22-32) mmol/L BUN 43 H (7-17) mg/dL Creatinine 1.81 H (0.52-1.04) mg/dL Estimated GFR 31 L (>60) mL/min BUN/Creatinine Ratio 23.8 H (6-22) Glucose 225 H (80-110) mg/dL Hemoglobin A1c (4.0-6.0) % Lactate (0.7-2.1) mmol/L Calcium 10.4 H (8.4-10.2) mg/dL Total Bilirubin 0.6 (0.2-1.3) mg/dL AST 20 (14-36) IU/L ALT 14 (<35) IU/L Alkaline Phosphatase 54 (38-126) U/L Total Creatine Kinase 54 (30-135) U/L Troponin I 0.064 H 0.066 H (0.01-0.034) ng/mL NT-Pro-B Natriuret Pep 32339 H (<125) pg/mL Total Protein 8.0 (6.3-8.2) g/dL Albumin 3.9 (3.5-5.0) g/dL Globulin 4.1 (1.7-4.1) g/dL Albumin/Globulin Ratio 1.0 (1.0-2.8) Procalcitonin 0.18 (<0.5) ng/mL Urine Color Urine Appearance Urine pH (4.5-8.0) Ur Specific [place] (1.000-1.035) Urine Protein (Negative) Urine Glucose (UA) (Negative) g/dL Urine Ketones (NEGATIVE) Urine Occult Blood (Negative) Urine Nitrate (Negative) Urine Bilirubin (NEGATIVE) Urine Urobilinogen (0.2) E.U./dL Ur Leukocyte Esterase (NEGATIVE) Urine RBC (0-5/HPF) Urine WBC (0-5/HPF) Ur Squamous Epith Cells (0-5/HPF) Urine Bacteria (None) Ur Culture Indicated? Vol Urine Centrifuged Chlamy pneumoniae PCR (Not Detect) Adenovirus (PCR) (Not Detect) B.parapertussis DNA PCR (Not Detecte) Coronavirus OC43 (PCR) (Not Detect) Coronavirus HKU1 (PCR) (Not Detect) Coronavirus 229E (PCR) (Not Detect) SARS-CoV-2 (PCR) (Not Detecte) Coronavirus NL63 (PCR) (Not Detect) Human Metapneumovir PCR (Not Detect) Influenza Type A (PCR) (Not Detect) Influenza Type B (PCR) (Not Detect) M. pneumoniae (PCR) (Not Detect) Parainfluenza 1 (PCR) (Not Detect) Parainfluenza 2 (PCR) (Not Detect) Parainfluenza 3 (PCR) (Not Detect) Parainfluenza 4 (PCR) (Not Detect) RSV (PCR) (Not Detect) Entero/Rhino (PCR) (Not Detect) 06/27/23 06/27/23 06/27/23 Range/Units 11:17 11:40 11:40 WBC (4.5-11.0) X10^3/uL RBC (4.0-5.2) X10^6/uL Hgb (12.0-16.0) g/dL Hct (36-46) % MCV (80-100) fL MCH (26-34) PG MCHC (30-36) % RDW (11.6-14.8) % Plt Count (150-400) X10^3/uL Neut % (Auto) (50-75) % Lymph % (Auto) (25-40) % [place] % (Auto) (3-14) % Eos % (Auto) (2-4) % Baso % (Auto) (0-2) % Neut # (Auto) (2334-0958) /uL Lymph # (Auto) (1277-5206) /uL [place] # (Auto) (0-900) /uL Eos # (Auto) (0-450) /uL Baso # (Auto) (0-100) /uL PT (9.4-12.5) SECONDS INR (0.9-1.3) ABG Sample Site Left radial ABG pH 7.22 L* (7.35-7.45) ABG pCO2 105.3 H* (35-45) mmHg ABG pO2 76 L (80-100) mmHg ABG HCO3 43 H (23-27) mmol/L ABG Total CO2 46 H (23-27) mmol/L ABG O2 Saturation 90 L (95-100) % ABG Base Excess 15.0 H (-2-3) mmol/L VBG pH Cancelled 7.24 L VBG pCO2 Cancelled VBG pO2 VBG HCO3 VBG Total CO2 VBG O2 Saturation VBG Base Excess FiO2 50 Sodium (137-145) mmol/L Potassium (3.4-5.1) mmol/L Chloride (98-107) mmol/L Carbon Dioxide (22-32) mmol/L BUN (7-17) mg/dL Creatinine (0.52-1.04) mg/dL Estimated GFR (>60) mL/min BUN/Creatinine Ratio (6-22) Glucose (80-110) mg/dL Hemoglobin A1c (4.0-6.0) % Lactate (0.7-2.1) mmol/L Calcium (8.4-10.2) mg/dL Total Bilirubin (0.2-1.3) mg/dL AST (14-36) IU/L ALT (<35) IU/L Alkaline Phosphatase (38-126) U/L Total Creatine Kinase (30-135) U/L Troponin I (0.01-0.034) ng/mL NT-Pro-B Natriuret Pep (<125) pg/mL Total Protein (6.3-8.2) g/dL Albumin (3.5-5.0) g/dL Globulin (1.7-4.1) g/dL Albumin/Globulin Ratio (1.0-2.8) Procalcitonin (<0.5) ng/mL Urine Color Urine Appearance Urine pH (4.5-8.0) Ur Specific [place] (1.000-1.035) Urine Protein (Negative) Urine Glucose (UA) (Negative) g/dL Urine Ketones (NEGATIVE) Urine Occult Blood (Negative) Urine Nitrate (Negative) Urine Bilirubin (NEGATIVE) Urine Urobilinogen (0.2) E.U./dL Ur Leukocyte Esterase (NEGATIVE) Urine RBC (0-5/HPF) Urine WBC (0-5/HPF) Ur Squamous Epith Cells (0-5/HPF) Urine Bacteria (None) Ur Culture Indicated? Vol Urine Centrifuged Chlamy pneumoniae PCR (Not Detect) Adenovirus (PCR) (Not Detect) B.parapertussis DNA PCR (Not Detecte) Coronavirus OC43 (PCR) (Not Detect) Coronavirus HKU1 (PCR) (Not Detect) Coronavirus 229E (PCR) (Not Detect) SARS-CoV-2 (PCR) (Not Detecte) Coronavirus NL63 (PCR) (Not Detect) Human Metapneumovir PCR (Not Detect) Influenza Type A (PCR) (Not Detect) Influenza Type B (PCR) (Not Detect) M. pneumoniae (PCR) (Not Detect) Parainfluenza 1 (PCR) (Not Detect) Parainfluenza 2 (PCR) (Not Detect) Parainfluenza 3 (PCR) (Not Detect) Parainfluenza 4 (PCR) (Not Detect) RSV (PCR) (Not Detect) Entero/Rhino (PCR) (Not Detect) 06/27/23 06/27/23 06/27/23 Range/Units 11:40 11:40 11:40 WBC (4.5-11.0) X10^3/uL RBC (4.0-5.2) X10^6/uL Hgb (12.0-16.0) g/dL Hct (36-46) % MCV (80-100) fL MCH (26-34) PG MCHC (30-36) % RDW (11.6-14.8) % Plt Count (150-400) X10^3/uL Neut % (Auto) (50-75) % Lymph % (Auto) (25-40) % [place] % (Auto) (3-14) % Eos % (Auto) (2-4) % Baso % (Auto) (0-2) % Neut # (Auto) (9630-4513) /uL Lymph # (Auto) (4618-7524) /uL [place] # (Auto) (0-900) /uL Eos # (Auto) (0-450) /uL Baso # (Auto) (0-100) /uL PT (9.4-12.5) SECONDS INR (0.9-1.3) ABG Sample Site ABG pH (7.35-7.45) ABG pCO2 (35-45) mmHg ABG pO2 (80-100) mmHg ABG HCO3 (23-27) mmol/L ABG Total CO2 (23-27) mmol/L ABG O2 Saturation (95-100) % ABG Base Excess (-2-3) mmol/L VBG pH VBG pCO2 > 86.0 H VBG pO2 Cancelled 28 L VBG HCO3 Cancelled 42 H VBG Total CO2 Cancelled VBG O2 Saturation VBG Base Excess FiO2 Sodium (137-145) mmol/L Potassium (3.4-5.1) mmol/L Chloride (98-107) mmol/L Carbon Dioxide (22-32) mmol/L BUN (7-17) mg/dL Creatinine (0.52-1.04) mg/dL Estimated GFR (>60) mL/min BUN/Creatinine Ratio (6-22) Glucose (80-110) mg/dL Hemoglobin A1c (4.0-6.0) % Lactate (0.7-2.1) mmol/L Calcium (8.4-10.2) mg/dL Total Bilirubin (0.2-1.3) mg/dL AST (14-36) IU/L ALT (<35) IU/L Alkaline Phosphatase (38-126) U/L Total Creatine Kinase (30-135) U/L Troponin I (0.01-0.034) ng/mL NT-Pro-B Natriuret Pep (<125) pg/mL Total Protein (6.3-8.2) g/dL Albumin (3.5-5.0) g/dL Globulin (1.7-4.1) g/dL Albumin/Globulin Ratio (1.0-2.8) Procalcitonin (<0.5) ng/mL Urine Color Urine Appearance Urine pH (4.5-8.0) Ur Specific [place] (1.000-1.035) Urine Protein (Negative) Urine Glucose (UA) (Negative) g/dL Urine Ketones (NEGATIVE) Urine Occult Blood (Negative) Urine Nitrate (Negative) Urine Bilirubin (NEGATIVE) Urine Urobilinogen (0.2) E.U./dL Ur Leukocyte Esterase (NEGATIVE) Urine RBC (0-5/HPF) Urine WBC (0-5/HPF) Ur Squamous Epith Cells (0-5/HPF) Urine Bacteria (None) Ur Culture Indicated? Vol Urine Centrifuged Chlamy pneumoniae PCR (Not Detect) Adenovirus (PCR) (Not Detect) B.parapertussis DNA PCR (Not Detecte) Coronavirus OC43 (PCR) (Not Detect) Coronavirus HKU1 (PCR) (Not Detect) Coronavirus 229E (PCR) (Not Detect) SARS-CoV-2 (PCR) (Not Detecte) Coronavirus NL63 (PCR) (Not Detect) Human Metapneumovir PCR (Not Detect) Influenza Type A (PCR) (Not Detect) Influenza Type B (PCR) (Not Detect) M. pneumoniae (PCR) (Not Detect) Parainfluenza 1 (PCR) (Not Detect) Parainfluenza 2 (PCR) (Not Detect) Parainfluenza 3 (PCR) (Not Detect) Parainfluenza 4 (PCR) (Not Detect) RSV (PCR) (Not Detect) Entero/Rhino (PCR) (Not Detect) 06/27/23 06/27/23 06/27/23 Range/Units 11:40 11:40 11:40 WBC (4.5-11.0) X10^3/uL RBC (4.0-5.2) X10^6/uL Hgb (12.0-16.0) g/dL Hct (36-46) % MCV (80-100) fL MCH (26-34) PG MCHC (30-36) % RDW (11.6-14.8) % Plt Count (150-400) X10^3/uL Neut % (Auto) (50-75) % Lymph % (Auto) (25-40) % [place] % (Auto) (3-14) % Eos % (Auto) (2-4) % Baso % (Auto) (0-2) % Neut # (Auto) (1483-3622) /uL Lymph # (Auto) (6603-6787) /uL [place] # (Auto) (0-900) /uL Eos # (Auto) (0-450) /uL Baso # (Auto) (0-100) /uL PT (9.4-12.5) SECONDS INR (0.9-1.3) ABG Sample Site ABG pH (7.35-7.45) ABG pCO2 (35-45) mmHg ABG pO2 (80-100) mmHg ABG HCO3 (23-27) mmol/L ABG Total CO2 (23-27) mmol/L ABG O2 Saturation (95-100) % ABG Base Excess (-2-3) mmol/L VBG pH VBG pCO2 VBG pO2 VBG HCO3 VBG Total CO2 45 H VBG O2 Saturation Cancelled 38 L VBG Base Excess Cancelled 15.0 H FiO2 Cancelled Sodium (137-145) mmol/L Potassium (3.4-5.1) mmol/L Chloride (98-107) mmol/L Carbon Dioxide (22-32) mmol/L BUN (7-17) mg/dL Creatinine (0.52-1.04) mg/dL Estimated GFR (>60) mL/min BUN/Creatinine Ratio (6-22) Glucose (80-110) mg/dL Hemoglobin A1c (4.0-6.0) % Lactate (0.7-2.1) mmol/L Calcium (8.4-10.2) mg/dL Total Bilirubin (0.2-1.3) mg/dL AST (14-36) IU/L ALT (<35) IU/L Alkaline Phosphatase (38-126) U/L Total Creatine Kinase (30-135) U/L Troponin I (0.01-0.034) ng/mL NT-Pro-B Natriuret Pep (<125) pg/mL Total Protein (6.3-8.2) g/dL Albumin (3.5-5.0) g/dL Globulin (1.7-4.1) g/dL Albumin/Globulin Ratio (1.0-2.8) Procalcitonin (<0.5) ng/mL Urine Color Urine Appearance Urine pH (4.5-8.0) Ur Specific [place] (1.000-1.035) Urine Protein (Negative) Urine Glucose (UA) (Negative) g/dL Urine Ketones (NEGATIVE) Urine Occult Blood (Negative) Urine Nitrate (Negative) Urine Bilirubin (NEGATIVE) Urine Urobilinogen (0.2) E.U./dL Ur Leukocyte Esterase (NEGATIVE) Urine RBC (0-5/HPF) Urine WBC (0-5/HPF) Ur Squamous Epith Cells (0-5/HPF) Urine Bacteria (None) Ur Culture Indicated? Vol Urine Centrifuged Chlamy pneumoniae PCR (Not Detect) Adenovirus (PCR) (Not Detect) B.parapertussis DNA PCR (Not Detecte) Coronavirus OC43 (PCR) (Not Detect) Coronavirus HKU1 (PCR) (Not Detect) Coronavirus 229E (PCR) (Not Detect) SARS-CoV-2 (PCR) (Not Detecte) Coronavirus NL63 (PCR) (Not Detect) Human Metapneumovir PCR (Not Detect) Influenza Type A (PCR) (Not Detect) Influenza Type B (PCR) (Not Detect) M. pneumoniae (PCR) (Not Detect) Parainfluenza 1 (PCR) (Not Detect) Parainfluenza 2 (PCR) (Not Detect) Parainfluenza 3 (PCR) (Not Detect) Parainfluenza 4 (PCR) (Not Detect) RSV (PCR) (Not Detect) Entero/Rhino (PCR) (Not Detect) 06/27/23 Range/Units 11:40 WBC (4.5-11.0) X10^3/uL RBC (4.0-5.2) X10^6/uL Hgb (12.0-16.0) g/dL Hct (36-46) % MCV (80-100) fL MCH (26-34) PG MCHC (30-36) % RDW (11.6-14.8) % Plt Count (150-400) X10^3/uL Neut % (Auto) (50-75) % Lymph % (Auto) (25-40) % [place] % (Auto) (3-14) % Eos % (Auto) (2-4) % Baso % (Auto) (0-2) % Neut # (Auto) (8315-3692) /uL Lymph # (Auto) (9890-2629) /uL [place] # (Auto) (0-900) /uL Eos # (Auto) (0-450) /uL Baso # (Auto) (0-100) /uL PT (9.4-12.5) SECONDS INR (0.9-1.3) ABG Sample Site ABG pH (7.35-7.45) ABG pCO2 (35-45) mmHg ABG pO2 (80-100) mmHg ABG HCO3 (23-27) mmol/L ABG Total CO2 (23-27) mmol/L ABG O2 Saturation (95-100) % ABG Base Excess (-2-3) mmol/L VBG pH VBG pCO2 VBG pO2 VBG HCO3 VBG Total CO2 VBG O2 Saturation VBG Base Excess FiO2 50 Sodium (137-145) mmol/L Potassium (3.4-5.1) mmol/L Chloride (98-107) mmol/L Carbon Dioxide (22-32) mmol/L BUN (7-17) mg/dL Creatinine (0.52-1.04) mg/dL Estimated GFR (>60) mL/min BUN/Creatinine Ratio (6-22) Glucose (80-110) mg/dL Hemoglobin A1c (4.0-6.0) % Lactate (0.7-2.1) mmol/L Calcium (8.4-10.2) mg/dL Total Bilirubin (0.2-1.3) mg/dL AST (14-36) IU/L ALT (<35) IU/L Alkaline Phosphatase (38-126) U/L Total Creatine Kinase (30-135) U/L Troponin I (0.01-0.034) ng/mL NT-Pro-B Natriuret Pep (<125) pg/mL Total Protein (6.3-8.2) g/dL Albumin (3.5-5.0) g/dL Globulin (1.7-4.1) g/dL Albumin/Globulin Ratio (1.0-2.8) Procalcitonin (<0.5) ng/mL Urine Color Urine Appearance Urine pH (4.5-8.0) Ur Specific [place] (1.000-1.035) Urine Protein (Negative) Urine Glucose (UA) (Negative) g/dL Urine Ketones (NEGATIVE) Urine Occult Blood (Negative) Urine Nitrate (Negative) Urine Bilirubin (NEGATIVE) Urine Urobilinogen (0.2) E.U./dL Ur Leukocyte Esterase (NEGATIVE) Urine RBC (0-5/HPF) Urine WBC (0-5/HPF) Ur Squamous Epith Cells (0-5/HPF) Urine Bacteria (None) Ur Culture Indicated? Vol Urine Centrifuged Chlamy pneumoniae PCR (Not Detect) Adenovirus (PCR) (Not Detect) B.parapertussis DNA PCR (Not Detecte) Coronavirus OC43 (PCR) (Not Detect) Coronavirus HKU1 (PCR) (Not Detect) Coronavirus 229E (PCR) (Not Detect) SARS-CoV-2 (PCR) (Not Detecte) Coronavirus NL63 (PCR) (Not Detect) Human Metapneumovir PCR (Not Detect) Influenza Type A (PCR) (Not Detect) Influenza Type B (PCR) (Not Detect) M. pneumoniae (PCR) (Not Detect) Parainfluenza 1 (PCR) (Not Detect) Parainfluenza 2 (PCR) (Not Detect) Parainfluenza 3 (PCR) (Not Detect) Parainfluenza 4 (PCR) (Not Detect) RSV (PCR) (Not Detect) Entero/Rhino (PCR) (Not Detect) Imaging Data Chest x-ray: Radiologist's Impression: [address] [address] XRay Report Signed Patient: Mary Carmen Jett MR#: [id number] : 1960 Acct:[id number] Age/Sex: 62 / F Date of Service: 06/27/23 Loc: ED Accession Number: [id number] Procedure: XR chest 1V Ordering Provider: Han Arredondo MD PROCEDURE: XR CHEST 1V INDICATIONS: Shortness of breath TECHNIQUE: One view of the chest was acquired. COMPARISON: [facility], XR CHEST 1V, 05/20/2023, 18:56. FINDINGS: Surgical changes and devices: None. Lungs and pleura: Left base demonstrates progressive opacification. There is blunting of the right costophrenic angle unchanged. Mild increased interstitial prominence. Mediastinum: Mediastinal contours appear normal. Heart size is enlarged. Bones and chest wall: No suspicious bony lesions. Overlying soft tissues appear unremarkable. IMPRESSION: Increased opacity within the left base suspicious for increasing effusion. Underlying area of pneumonia/atelectasis cannot be excluded. Increased interstitial opacities suggestive of edema. Minimal right costophrenic angle effusion versus scarring. Dictated by: Kaykay Beckman M.D. on 06/27/2023 at 8:16 Approved by: Kaykay Beckman M.D. on 06/27/2023 at 8:17 Repeat chest x-ray: Radiologist's Impression: [address] [address] XRay Report Signed Patient: Mary Carmen Jett MR#: [id number] : 1960 Acct:[id number] Age/Sex: 62 / F Date of Service: 06/27/23 Loc: 90B-1 Accession Number: [id number] Procedure: XR chest 1V Ordering Provider: Han Arredondo MD PROCEDURE: XR CHEST 1V INDICATIONS: ETT placement, NGT placement TECHNIQUE: One view of the chest was acquired. COMPARISON: [facility], XR CHEST 1V, 06/27/2023, 7:57. FINDINGS: Surgical changes and devices: Endotracheal tube is present at the level of the ron. Nasogastric tube is present distal tip projecting below the left hemidiaphragm. Lungs and pleura: [id number] left effusion. Mediastinum: Mediastinal contours appear normal. Heart size is normal. Bones and chest wall: No suspicious bony lesions. Overlying soft tissues appear unremarkable. IMPRESSION: Endotracheal tube at the level of the ron. Retraction is recommended. Left effusion. Dictated by: Kaykay Beckman M.D. on 06/27/2023 at 13:58 Approved by: Kaykay Beckman M.D. on 06/27/2023 at 13:59 [facility] Narrative Medical decision making narrative: Patient brought in by ambulance from [facility], complaints of shortness of breath. Patient has history of COPD CHF asthma. Patient thinks she has been using her CPAP very well at night. However this morning felt short of breath after taking it off. Rehab facility states she is likely gain at least 4 lb. Patient has been there for the past 5 days according to admission records. Patient admitted here last month for similar complaint. Patient is on oxygen continuously at facility. Patient denies any chest pain. No leg pain. She is awake alert but slightly somnolent. She is answering appropriately. Blood sugar 230 by EMS. She did receive DuoNeb by EMS on arrival. No pinpoint pupils. No altered mental status After history and exam respiratory therapy consult/DuoNeb/Solu- Medrol/BiPAP/ABG/chest x-ray/EKG troponin BNP lactic acid respiratory panel CBC CMP, admit Babcock catheter [facility] Medical records reviewed: May 23, 2023 discharge summary from here Differential considered: Includes but not limited to CHF COPD asthma exacerbation pneumonia respiratory infection Lab Test results independently reviewed as above. Pertinent findings: WBC 13.9 ABG/pH 7.27 pCO2 93 PO2 95 Troponin 0.064 BNP 30684 WBC of the urine 30-100 Independently reviewed EKG normal sinus rhythm rate [address] elevation or depression Imaging studies independently reviewed: Chest x-ray possible left lower lobe pneumonia/effusion Consultations: 11:[address] Alexis, would like to keep track of the ABG and possible intubation if not improving however clinically patient is hemodynamically stable and responsive at this time. She is speaking and answering appropriately 1:[address] Alexis, hospitalist, who will admit patient to ICU, patient is intubated Treatments: DuoNeb Solu-Medrol Re-evaluations: Patient doing much better on BiPAP. Is much more awake. She does understand and desires admission 11:39 a.m.. Multiple ABGs have been done. PCO2 has risen. However clinically patient awake alert responsive to name discussion answering appropriately. I spoke with her possible intubation and she does agree if needed. I asked her who to contact and she said her daughter Roxy. I spoke with Roxy and does agree and understand if need intubation. Risks and benefits reviewed with them. 10:29 a.m.. Patient remains awake alert and responsive. Blood gases did return and increased pCO2. However re-evaluation of mask here there seems to be a leak. Tidal volumes are improving. 12:30 p.m.. Patient becoming more somnolent and less responsive as before. She does agree for intubation. Again, risks and benefits reviewed with her and daughter. Emergent intubation needed Discussion: Appropriate for admission for IV antibiotics and continued respiratory support. Patient troponin is chronically elevated. Denies any chest pain. Likely not STEMI/non-STEMI Diagnosis: Pneumonia/COPD/CHF Critical Care Time Critical Care Time Attestation: Critical Care Time 35 minutes: Critical care time is separate from other billable procedures. This critical care time includes consultation with family and other consulting doctors, review of records, and interpretation of data from labs, EKGs, imaging, etc. Discharge Plan Departure Patient Disposition: Admitted As Inpatient Clinical Impression: Acute on chronic systolic CHF (congestive heart failure), Acute exacerbation of chronic obstructive airways disease Pneumonia Qualifiers: Pneumonia type: due to unspecified organism Laterality: left Lung location: l ower lobe of lung Qualified Code(s): J18.9 - Pneumonia, unspecified organism Respiratory failure Qualifiers: Chronicity: acute Respiratory failure complication: hypoxia and hypercapnia Q ualified Code(s): J96.01 - Acute respiratory failure with hypoxia Admit Date/Time: 06/27/23 13:25 Admit Provider: Ayden Alexis
[2023-06-27 08:11] LABS: Fractionated Inspired Oxygen 50; HCO3 ABG 43 mmol/L (23-27); Oxygen Saturation ABG 95 % (95-100); PO2 ABG 95 mmHg (80-100); TCO2 ABG 45 mmol/L (23-27); pH ABG 7.27 (7.35-7.45)
[2023-06-27 08:12] LABS: Allen Test for ABG Passed? Yes, Passed; Blood Gas Collection Site Right Radial
[2023-06-27 08:16] LABS: Appearance Urine UA CLOUDY; Bilirubin Urine UA NEGATIVE (NEGATIVE); Color Urine UA YELLOW; Glucose Urine UA 1+ g/dL (Negative); Ketones Urine UA NEGATIVE (NEGATIVE); Leukocyte Esterase Urine UA 3+ (NEGATIVE); Nitrite Urine UA NEGATIVE (Negative); Occult Blood Urine UA 2+ (Negative); Protein Urine UA 1+ (Negative); Specific Gravity Urine UA 1.025 (1.000-1.035); Urobilinogen Urine UA 0.2 E.U./dL (0.2)
[2023-06-27 08:21] LABS: pH Urine UA 5.5 (4.5-8.0)
[2023-06-27 08:24] LABS: Bacteria Urine Many (>30); Culture Indicated Urine Specimen Cultured; RBC Urine None Seen (0-5/HPF); Squamous Epithelial Cell Urine None Seen (0-5/HPF); Urine Volume 10mL (spun); WBC Urine 30-100/HPF (0-5/HPF)
[2023-06-27 08:28] LABS: Alanine Aminotransferase 14 IU/L (<35); Albumin 3.9 g/dL (3.5-5.0); Alkaline Phosphatase 54 U/L (38-126); Aspartate Aminotransferase 20 IU/L (14-36); BUN Creatinine Ratio 23.8 (6-22); Bilirubin Total 0.6 mg/dL (0.2-1.3); Blood Urea Nitrogen 43 mg/dL (7-17); Calcium 10.4 mg/dL (8.4-10.2); Chloride 98 mmol/L (98-107); Estimated Glomerular Filt Rate 31 mL/min (>60); Globulin 4.1 g/dL (1.7-4.1); Glucose 225 mg/dL (80-110); HEMOLYSIS < 15 (0-50); Potassium 4.3 mmol/L (3.4-5.1); Sodium 143 mmol/L (137-145)
[2023-06-27 08:39] LABS: Troponin I 0.064 ng/mL (0.01-0.034)
[2023-06-27 08:40] LABS: Carbon Dioxide 40 mmol/L (22-32)
[2023-06-27 08:41] LABS: Adenovirus Not Detected (Not Detect); B. parapertussis Not Detected (Not Detecte); Bordetella pertussis Not Detected (Not Detect); Chlamydophila pneumoniae Not Detected (Not Detect); Coronavirus 229E Not Detected (Not Detect); Coronavirus HKU1 Not Detected (Not Detect); Coronavirus NL 63 Not Detected (Not Detect); Coronavirus OC43 Not Detected (Not Detect); Human Metapneumovirus Not Detected (Not Detect); Human Rhinovirus/Enterovirus Not Detected (Not Detect); Influenza A Not Detected (Not Detect); Influenza B Not Detected (Not Detect); Mycoplasma pneumoniae Not Detected (Not Detect); Parainfluenza Virus 1 Not Detected (Not Detect); Parainfluenza Virus 2 Not Detected (Not Detect); Parainfluenza Virus 3 Not Detected (Not Detect); Parainfluenza Virus 4 Not Detected (Not Detect); Respiratory Syncytial Virus Not Detected (Not Detect); SARS- CoV-2 Not Detected (Not Detecte)
[2023-06-27 08:53] LABS: NT-proBNP (BNP-Adult 18+) 14100 pg/mL (<125)
[2023-06-27] MEDS: PIPERACILLIN/TAZO 4.5 GM in SODIUM CHLORIDE 0.9% 100 ML IV (09:41)
[2023-06-27 09:54] LABS: Creatine Kinase 54 U/L (30-135)
[2023-06-27 10:03] LABS: HCO3 ABG 44 mmol/L (23-27); PCO2 ABG 106.4 mmHg (35-45); PO2 ABG 90 mmHg (80-100); pH ABG 7.22 (7.35-7.45)
[2023-06-27 10:04] LABS: Allen Test for ABG Passed? Yes, Passed; Blood Gas Collection Site Right Radial; Fractionated Inspired Oxygen 50; Oxygen Saturation ABG 94 % (95-100); TCO2 ABG 47 mmol/L (23-27)
[2023-06-27 10:07] LABS: Troponin I 0.066 ng/mL (0.01-0.034)
[2023-06-27] MEDS: VANCOMYCIN 1,500 MG/300 ML PIGGYBACK 200 MG IV (10:18)
[2023-06-27 12:11] LABS: pH ABG 7.22 (7.35-7.45)
[2023-06-27 12:12] LABS: Allen Test for ABG Passed? Yes, Passed; Blood Gas Collection Site Left Radial; Fractionated Inspired Oxygen 50; HCO3 ABG 43 mmol/L (23-27); Oxygen Saturation ABG 90 % (95-100); PCO2 ABG 105.3 mmHg (35-45); PO2 ABG 76 mmHg (80-100); TCO2 ABG 46 mmol/L (23-27)
--- NOTE | 2023-06-27 12:18 | DI.RAD.S_ITS ---
PROCEDURE: XR CHEST 1V INDICATIONS: ETT placement, NGT placement TECHNIQUE: One view of the chest was acquired. COMPARISON: [facility], CR, XR CHEST 1V, 06/27/2023, 7:57. FINDINGS: Surgical changes and devices: Endotracheal tube is present at the level of the ron. Nasogastric tube is present distal tip projecting below the left hemidiaphragm. Lungs and pleura: [id number] left effusion. Mediastinum: Mediastinal contours appear normal. Heart size is normal. Bones and chest wall: No suspicious bony lesions. Overlying soft tissues appear unremarkable. IMPRESSION: Endotracheal tube at the level of the ron. Retraction is recommended. Left effusion. Dictated by: Kaykay Beckman M.D. on 06/27/2023 at 13:58 Approved by: Kaykay Beckman M.D. on 06/27/2023 at 13:59
--- NOTE | 2023-06-27 12:50 | PC.NURSE ---
Addendum entered by Haley Lugo R.N. 06/27/23 16:11: Late entry: after pulling ET tube per provider patient having alarms, RT put tube back at 20/[facility]. Addendum entered by Haley Lugo R.N. 06/27/23 15:02: 1501: pulled ET tube out 1 cm per provider order, RT performed. 19 at [facility]. Addendum entered by Haley Lugo R.N. 06/27/23 13:32: 1332: patient hypotensive, paused propofol, new order for 1L NS bolus, push dose epi, norepi. 1337: 1 push dose of epi 1339: propofol restarted 1340: norepi started Original Note: 1252: time out for intubation 1254: 80mg propofol 1556: 40mg propofol 1257: 50mcg fent 1259: intubation; 20 at [facility] 1301: fent and propofol infusion started 1302: 30mg propofol push 1307: 50mcg fent 1309: NG placed, 18 [place] 1310: CXR NG and ET placement Initial vent settings RR 16, TV 460,45% O2, Peep 5
[2023-06-27] MEDS: propofoL 200 MG/20 ML VIAL 120 MG IV (12:56)
[2023-06-27] MEDS: fentaNYL 100 MCG/2 ML INJ 50 MCG IV ×4 (12:57→16:21)
[2023-06-27] MEDS: propofoL 1,000 MG/100 ML VIAL 10.89 MG IV (13:01)
[2023-06-27] MEDS: fentaNYL 1,000 MCG in DEXTROSE 5% IN WATER 230 ML 21.175 MCG IV (13:01)
[2023-06-27] MEDS: propofoL 200 MG/20 ML VIAL 30 MG IV (13:02)
[2023-06-27] MEDS: SODIUM CHLORIDE 0.9% 1,000 ML 1000 ML IV (13:32)
[2023-06-27] MEDS: NOREPINEPHRINE BITARTRATE/D5W 4 MG/250 ML PLAST..BAG 22.688 MG IV ×2 (13:40→21:04)
[2023-06-27] MEDS: SODIUM CHLORIDE 0.9% FLUSH 9 ML, EPINEPHrine 0.1 MG IV (13:45)
[2023-06-27 15:55] LABS: Allen Test for ABG Passed? Yes, Passed; Blood Gas Collection Site Right Radial; Fractionated Inspired Oxygen 45; HCO3 ABG 35 mmol/L (23-27); Oxygen Saturation ABG 97 % (95-100); PCO2 ABG 58.8 mmHg (35-45); PO2 ABG 92 mmHg (80-100); TCO2 ABG 36 mmol/L (23-27); pH ABG 7.38 (7.35-7.45)
[2023-06-27 17:49] LABS: Hemoglobin A1C% w Est Avg Glu 9.3 % (4.0-6.0)
--- NOTE | 2023-06-27 17:55 | DI.RAD.S_ITS ---
PROCEDURE: XR CHEST FOR PICC 1V INDICATIONS: PICC line TECHNIQUE: One view of the chest was acquired. COMPARISON: [facility], CR, XR CHEST 1V, 06/27/2023, 13:04. FINDINGS: Surgical changes and devices: Interval placement of left PICC. Catheter tip is seen projecting over the spine near the innominate vein confluence/upper superior vena cava given mild patient rotation. Endotracheal tube again seen with tip approximately 1.9 cm above the ron. Lungs and pleura: Left pleural effusion is again seen with left basilar atelectasis. Mediastinum: Cardiomediastinal silhouette is stable. Bones and chest wall: No suspicious bony lesions. Overlying soft tissues appear unremarkable. IMPRESSION: Left PICC is seen with tip projecting over the innominate vein confluence or upper superior vena cava. Approved by: Chandler Fung M.D. on 06/27/2023 at 18:52
[2023-06-27 18:04] LABS: Procalcitonin 0.18 ng/mL (<0.5)
[2023-06-27] MEDS: methylPREDNISolone 125 MG/2 ML VIAL 60 MG IV (18:05)
[2023-06-27] MEDS: INSULIN DRIP PREMIX 100 UNIT/100 ML PLAST..BAG IV (18:19)
[2023-06-27] MEDS: MEROPENEM 2 GM in SODIUM CHLORIDE 0.9% 100 ML IV (18:38)
--- NOTE | 2023-06-27 18:42 | PM.HP.1 ---
History of Present Illness History of Present Illness Date Patient Seen: 06/27/23 Chief complaint: SOB Narrative: Mary Carmen Jett is a 62yo F with PMH of DM2, COPD on chronic 2L O2, HFrEF of 30-35%, morbid obesity, PONCE, HTN, hypothyroidism, frequent UTI's, depression and frequent admissions requiring Bipap who presents with dyspnea and required intubation for worsening hypercapnia. Also requiring pressors for septic vs cardiogenic shock. Patient intubated so history unattainable. Per ED records she was at [facility] where she lives and developed SOB last night. Found to have O2 sats in 60's by EMS. Placed initially on Bipap in the ED but ABG's showed worsening hypercapnea up to 106 pCO2 so was intubated. Shortly after she developed hypotension and was placed on levophed. [facility] Medical History PONCE (obstructive sleep apnea) Chronic hypoxemic respiratory failure COPD (chronic obstructive pulmonary disease) DM2 (diabetes mellitus, type 2) HTN (hypertension) Thyroiditis Systolic and diastolic CHF, chronic Obesity Surgical History S/P hernia surgery Family History Mother No pertinent past medical history Father No pertinent past medical history Social History household members: other Smoking Status: Former smoker alcohol intake: former Meds Home Medications and Allergies Home Medications Medication Instructions Recorded Confirmed Type acetaminophen 325 mg tablet 650 mg PO TID 05/25/22 05/20/23 History (Tylenol) aspirin 81 mg tablet,delayed 81 mg PO DAILY 05/25/22 05/20/23 History release budesonide-formoterol HFA 160 2 puff inhalation Q4H PRN Wheezing 05/25/22 05/20/23 History mcg-4.5 mcg/actuation aerosol inhaler bupropion HCl 150 mg tablet,12 hr 150 mg PO BEDTIME 05/25/22 05/20/23 History sustained-release carvedilol 3.125 mg tablet 3.125 mg PO BID 05/25/22 05/20/23 History cyanocobalamin (vitamin B-12) 500 500 mcg PO DAILY 05/25/22 05/20/23 History mcg tablet fenofibrate 160 mg tablet 160 mg PO DAILY 05/25/22 05/20/23 History fluoxetine 20 mg tablet 20 mg PO DAILY 05/25/22 05/20/23 History fluticasone propionate 50 2 spray intranasal DAILY 05/25/22 05/20/23 History mcg/actuation nasal spray,suspension gabapentin 300 mg capsule 300 mg PO BEDTIME 05/25/22 05/20/23 History insulin glargine 100 unit/mL (3 22 unit SUBCUT BID 05/25/22 05/20/23 History mL) subcutaneous pen insulin lispro 100 unit/mL See Protocol SUBCUT TIDWM 05/25/22 05/20/23 History subcutaneous solution (Humalog U-100 Insulin) loratadine 10 mg tablet 10 mg PO DAILY 05/25/22 05/20/23 History magnesium oxide 200 mg PO DAILY 05/25/22 05/20/23 History meclizine 25 mg tablet 25 mg PO Q8HR PRN Dizziness 05/25/22 05/20/23 History montelukast 10 mg tablet 10 mg PO DAILY 05/25/22 05/20/23 History nystatin 100,000 unit/gram topical 1 applic topical BID PRN Rash 05/25/22 05/20/23 History powder ondansetron 4 mg disintegrating 4 mg PO Q8H PRN Nausea 05/25/22 05/20/23 History tablet rosuvastatin 40 mg tablet 40 mg PO DAILY 05/25/22 05/20/23 History sennosides 8.6 mg tablet (senna) 17.2 mg PO BEDTIME 05/25/22 05/20/23 History tiotropium bromide 18 mcg capsule 1 cap inhalation DAILY 05/25/22 05/20/23 History with inhalation device (Spiriva with HandiHaler) trazodone 50 mg tablet 25 mg PO BEDTIME 05/25/22 05/20/23 History albuterol sulfate 90 mcg/actuation 4 puff inhalation Q4H PRN 08/15/22 05/20/23 History aerosol inhaler Shortness Of Breath Or Wheezing levothyroxine 175 mcg tablet 175 mcg PO DAILY 08/15/22 05/20/23 History potassium chloride 10 mEq 20 meq PO DAILY 08/15/22 05/20/23 History tablet,extended release midodrine 5 mg tablet 10 mg PO BID 05/20/23 05/20/23 History molnupiravir 800 mg BID 05/20/23 05/20/23 History prednisone 40 mg DAILY 05/20/23 05/20/23 History torsemide 20 mg DAILY 05/20/23 05/20/23 History torsemide 10 mg tablet 10 mg PO BEDTIME 05/20/23 05/20/23 History Allergies Allergy/AdvReac Type Severity Reaction Status Date / Time No Known Drug Allergies Allergy Verified 05/25/22 12:43 Review of Systems Review of Systems Narrative: Unobtainable due to intubation and sedation. Exam Vital Signs (past 8 hours): - 06/27/23 10:45 06/27/23 11:00 06/27/23 11:00 Temperature Pulse Rate 89 87 Respiratory Rate 20 22 Blood Pressure 123/65 Pulse Oximetry 93 91 Oxygen Delivery Method 06/27/23 11:15 06/27/23 11:21 06/27/23 11:21 Temperature Pulse Rate 86 86 Respiratory Rate 24 19 Blood Pressure 125/60 Pulse Oximetry 90 L 91 Oxygen Delivery Method 06/27/23 11:30 06/27/23 11:40 06/27/23 11:40 Temperature Pulse Rate 86 86 Respiratory Rate 21 16 Blood Pressure 119/62 Pulse Oximetry 91 93 Oxygen Delivery Method BiPAP 06/27/23 11:45 06/27/23 12:00 06/27/23 12:00 Temperature Pulse Rate 85 85 Respiratory Rate 21 24 Blood Pressure 104/64 Pulse Oximetry 93 93 Oxygen Delivery Method BiPAP BiPAP 06/27/23 12:05 06/27/23 12:05 06/27/23 12:15 Temperature Pulse Rate 86 86 Respiratory Rate 27 H 20 Blood Pressure 109/59 L Pulse Oximetry 94 94 Oxygen Delivery Method BiPAP BiPAP 06/27/23 12:20 06/27/23 12:20 06/27/23 12:30 Temperature Pulse Rate 86 86 Respiratory Rate 20 20 Blood Pressure 109/60 Pulse Oximetry 95 95 Oxygen Delivery Method BiPAP BiPAP 06/27/23 12:40 06/27/23 12:40 06/27/23 12:45 Temperature Pulse Rate 86 86 Respiratory Rate 19 18 Blood Pressure 115/64 Pulse Oximetry 96 95 Oxygen Delivery Method BiPAP BiPAP 06/27/23 13:00 04/09/24 13:00 06/27/23 13:03 Temperature Pulse Rate 81 71 Respiratory Rate 17 18 Blood Pressure 128/87 Pulse Oximetry 98 Oxygen Delivery Method Mechanical Ventilation 06/27/23 13:03 06/27/23 13:15 06/27/23 13:30 Temperature Pulse Rate 81 74 74 Respiratory Rate 9 L 16 16 Blood Pressure Pulse Oximetry 99 97 91 Oxygen Delivery Method 06/27/23 13:32 06/27/23 13:32 06/27/23 13:35 Temperature Pulse Rate 73 72 Respiratory Rate 18 18 Blood Pressure 47/28 L Pulse Oximetry 99 100 Oxygen Delivery Method 06/27/23 13:35 06/27/23 13:37 06/27/23 13:37 Temperature Pulse Rate 84 Respiratory Rate 18 Blood Pressure 53/32 L 51/32 L Pulse Oximetry 98 Oxygen Delivery Method 06/27/23 13:39 06/27/23 13:39 06/27/23 13:40 Temperature Pulse Rate 76 Respiratory Rate 18 Blood Pressure 118/68 117/64 Pulse Oximetry 94 Oxygen Delivery Method 06/27/23 13:40 06/27/23 13:42 06/27/23 13:42 Temperature Pulse Rate 77 75 Respiratory Rate 18 18 Blood Pressure 111/66 Pulse Oximetry 92 96 Oxygen Delivery Method 06/27/23 13:44 06/27/23 13:44 06/27/23 13:45 Temperature Pulse Rate 74 74 Respiratory Rate 18 18 Blood Pressure 113/68 Pulse Oximetry 98 99 Oxygen Delivery Method 06/27/23 13:46 06/27/23 13:46 06/27/23 14:18 Temperature Pulse Rate 74 76 Respiratory Rate 18 18 Blood Pressure 120/69 Pulse Oximetry 98 96 Oxygen Delivery Method Mechanical Ventilation 06/27/23 14:20 06/27/23 14:20 06/27/23 14:22 Temperature Pulse Rate 76 Respiratory Rate 18 Blood Pressure 138/79 126/82 Pulse Oximetry 96 Oxygen Delivery Method 06/27/23 14:22 06/27/23 14:24 06/27/23 14:24 Temperature Pulse Rate 75 76 Respiratory Rate 18 18 Blood Pressure 127/78 Pulse Oximetry 96 96 Oxygen Delivery Method 06/27/23 14:26 06/27/23 14:26 06/27/23 14:28 Temperature Pulse Rate 76 Respiratory Rate 18 Blood Pressure 128/77 126/77 Pulse Oximetry 96 Oxygen Delivery Method 06/27/23 14:28 06/27/23 14:30 06/27/23 14:30 Temperature Pulse Rate 76 76 Respiratory Rate 18 18 Blood Pressure 130/71 Pulse Oximetry 96 96 Oxygen Delivery Method 06/27/23 14:32 06/27/23 14:32 06/27/23 14:34 Temperature Pulse Rate 76 Respiratory Rate 18 Blood Pressure 133/66 130/74 Pulse Oximetry 96 Oxygen Delivery Method 06/27/23 14:34 06/27/23 14:36 06/27/23 14:36 Temperature Pulse Rate 76 75 Respiratory Rate 18 18 Blood Pressure 127/72 Pulse Oximetry 96 96 Oxygen Delivery Method 06/27/23 14:38 06/27/23 14:38 06/27/23 14:40 Temperature Pulse Rate 75 Respiratory Rate 18 Blood Pressure 132/63 126/78 Pulse Oximetry 96 Oxygen Delivery Method 06/27/23 14:40 06/27/23 14:42 06/27/23 14:42 Temperature Pulse Rate 77 83 Respiratory Rate 19 13 Blood Pressure 136/87 Pulse Oximetry 96 94 Oxygen Delivery Method 06/27/23 14:44 06/27/23 14:44 06/27/23 14:45 Temperature Pulse Rate 86 81 Respiratory Rate 9 L 13 Blood Pressure 79/50 L Pulse Oximetry 78 L 84 L Oxygen Delivery Method 06/27/23 14:46 06/27/23 14:46 06/27/23 14:48 Temperature Pulse Rate 78 Respiratory Rate 18 Blood Pressure 81/50 L 69/48 L Pulse Oximetry 98 Oxygen Delivery Method 06/27/23 14:48 06/27/23 14:51 06/27/23 14:51 Temperature Pulse Rate 75 80 Respiratory Rate 18 13 Blood Pressure 103/55 L Pulse Oximetry 97 98 Oxygen Delivery Method 06/27/23 14:53 06/27/23 14:53 06/27/23 14:54 Temperature Pulse Rate 79 Respiratory Rate Blood Pressure 147/77 H 161/74 H Pulse Oximetry 98 Oxygen Delivery Method 06/27/23 14:54 06/27/23 14:56 06/27/23 14:56 Temperature Pulse Rate 81 81 Respiratory Rate 13 15 Blood Pressure 156/76 H Pulse Oximetry 98 100 Oxygen Delivery Method 06/27/23 14:58 06/27/23 14:58 06/27/23 15:00 Temperature Pulse Rate 80 Respiratory Rate 20 Blood Pressure 145/67 H 127/61 Pulse Oximetry 99 Oxygen Delivery Method 06/27/23 15:00 06/27/23 15:02 06/27/23 15:02 Temperature Pulse Rate 79 77 Respiratory Rate 20 20 Blood Pressure 121/56 L Pulse Oximetry 98 98 Oxygen Delivery Method 06/27/23 15:04 06/27/23 15:04 06/27/23 15:06 Temperature Pulse Rate 76 Respiratory Rate 20 Blood Pressure 114/57 L 107/66 Pulse Oximetry 97 Oxygen Delivery Method 06/27/23 15:06 06/27/23 15:28 06/27/23 15:30 Temperature Pulse Rate 76 76 Respiratory Rate 20 20 Blood Pressure 116/70 Pulse Oximetry 97 94 Oxygen Delivery Method 06/27/23 15:30 06/27/23 15:32 06/27/23 15:32 Temperature Pulse Rate 75 76 Respiratory Rate 20 20 Blood Pressure 114/69 Pulse Oximetry 94 94 Oxygen Delivery Method 06/27/23 15:34 06/27/23 15:34 06/27/23 15:36 Temperature Pulse Rate 76 Respiratory Rate 20 Blood Pressure 115/73 117/73 Pulse Oximetry 94 Oxygen Delivery Method 06/27/23 15:36 06/27/23 15:38 06/27/23 15:38 Temperature Pulse Rate 76 76 Respiratory Rate 20 20 Blood Pressure 117/69 Pulse Oximetry 95 95 Oxygen Delivery Method 06/27/23 15:40 06/27/23 15:40 06/27/23 15:42 Temperature Pulse Rate 75 Respiratory Rate 20 Blood Pressure 119/73 119/67 Pulse Oximetry 95 Oxygen Delivery Method 06/27/23 15:42 06/27/23 15:44 06/27/23 15:44 Temperature Pulse Rate 75 75 Respiratory Rate 20 20 Blood Pressure 121/66 Pulse Oximetry 95 95 Oxygen Delivery Method 06/27/23 15:45 06/27/23 15:46 06/27/23 15:46 Temperature Pulse Rate 75 75 Respiratory Rate 20 20 Blood Pressure 122/71 Pulse Oximetry 95 95 Oxygen Delivery Method 06/27/23 15:48 06/27/23 15:48 06/27/23 15:50 Temperature Pulse Rate 76 Respiratory Rate 20 Blood Pressure 120/64 123/68 Pulse Oximetry 95 Oxygen Delivery Method 06/27/23 15:50 06/27/23 15:52 06/27/23 15:52 Temperature Pulse Rate 76 75 Respiratory Rate 20 20 Blood Pressure 120/70 Pulse Oximetry 95 95 Oxygen Delivery Method 06/27/23 15:54 06/27/23 15:54 06/27/23 15:56 Temperature Pulse Rate 75 Respiratory Rate 20 Blood Pressure 117/70 111/70 Pulse Oximetry 95 Oxygen Delivery Method 06/27/23 15:56 06/27/23 15:58 06/27/23 15:58 Temperature Pulse Rate 75 75 Respiratory Rate 20 20 Blood Pressure 122/66 Pulse Oximetry 95 95 Oxygen Delivery Method 06/27/23 16:00 06/27/23 16:00 06/27/23 16:02 Temperature Pulse Rate 75 75 Respiratory Rate 20 20 Blood Pressure 117/68 Pulse Oximetry 95 95 Oxygen Delivery Method 06/27/23 16:02 06/27/23 16:04 06/27/23 16:04 Temperature Pulse Rate 76 Respiratory Rate 20 Blood Pressure 126/70 123/74 Pulse Oximetry 95 Oxygen Delivery Method 06/27/23 16:06 06/27/23 16:06 06/27/23 16:08 Temperature Pulse Rate 76 Respiratory Rate 20 Blood Pressure 125/73 122/72 Pulse Oximetry 95 Oxygen Delivery Method 06/27/23 16:08 06/27/23 16:10 06/27/23 16:10 Temperature Pulse Rate 75 76 Respiratory Rate 20 20 Blood Pressure 121/69 Pulse Oximetry 95 94 Oxygen Delivery Method 06/27/23 16:12 06/27/23 16:12 06/27/23 16:14 Temperature Pulse Rate 75 75 Respiratory Rate 20 20 Blood Pressure 113/60 Pulse Oximetry 94 94 Oxygen Delivery Method 06/27/23 16:14 06/27/23 16:15 06/27/23 16:16 Temperature Pulse Rate 75 Respiratory Rate 20 Blood Pressure 113/71 118/68 Pulse Oximetry 94 Oxygen Delivery Method 06/27/23 16:16 06/27/23 16:24 06/27/23 16:26 Temperature Pulse Rate 76 Respiratory Rate 20 Blood Pressure 121/69 130/61 Pulse Oximetry 94 Oxygen Delivery Method 06/27/23 16:28 06/27/23 17:00 06/27/23 17:40 Temperature 98.6 F Pulse Rate 76 Respiratory Rate 20 Blood Pressure 129/65 Pulse Oximetry Oxygen Delivery Method Fraction of Inspired Oxygen 50 Oxygen Delivery Method Mechanical Ventilation Narrative Exam Narrative: GEN: Intubated and sedated, obese HEENT: moist mucous membranes, PERRL NECK: trachea midline, no JVD CV: regular rate and rhythm, no murmurs PULM: Coarse breath sounds bilaterally ABD: soft, nontender, nondistended, no organomegaly EXT: warm and well perfused with no edema NEURO: Unobtainable Objective Labs 06/27/23 07:30 06/27/23 08:10 Labs: Laboratory Results - last 24 hr 06/27/23 06/27/23 06/27/23 07:30 07:53 08:07 WBC 13.9 H RBC 3.84 L Hgb 12.5 Hct 39.2 MCV 102.0 H MCH 32.6 MCHC 32.0 RDW 18.7 H Plt Count 327 Neut % (Auto) 77.0 H Lymph % (Auto) 14.6 L Fountain % (Auto) 6.5 Eos % (Auto) 1.1 L Baso % (Auto) 0.8 Neut # (Auto) 27508 H Lymph # (Auto) 2000 Fountain # (Auto) 900 Eos # (Auto) 100 Baso # (Auto) 100 PT 12.2 INR 1.1 ABG Sample Site Right radial ABG pH 7.27 L* ABG pCO2 93.0 H* ABG pO2 95 ABG HCO3 43 H ABG Total CO2 45 H ABG O2 Saturation 95 ABG Base Excess 16.0 H FiO2 50 Sodium Potassium Chloride Carbon Dioxide BUN Creatinine Estimated GFR BUN/Creatinine Ratio Glucose Hemoglobin A1c 9.3 H Lactate 1.0 Calcium Total Bilirubin AST ALT Alkaline Phosphatase Total Creatine Kinase Troponin I NT-Pro-B Natriuret Pep Total Protein Albumin Globulin Albumin/Globulin Ratio Procalcitonin Urine Color Yellow Urine Appearance Cloudy Urine pH 5.5 Ur Specific Harris 1.025 Urine Protein 1+ H Urine Glucose (UA) 1+ H Urine Ketones Negative Urine Occult Blood 2+ H Urine Nitrate Negative Urine Bilirubin Negative Urine Urobilinogen 0.2 Ur Leukocyte Esterase 3+ H Urine RBC None seen Urine WBC 30-100/hpf H Ur Squamous Epith Cells None seen Urine Bacteria Many (>30) H Ur Culture Indicated? Specimen cultured Vol Urine Centrifuged 10ml (spun) Chlamy pneumoniae PCR Not detected Adenovirus (PCR) Not detected B.parapertussis DNA PCR Not detected Coronavirus OC43 (PCR) Not detected Coronavirus HKU1 (PCR) Not detected Coronavirus 229E (PCR) Not detected SARS-CoV-2 (PCR) Not detected Coronavirus NL63 (PCR) Not detected Human Metapneumovir PCR Not detected Influenza Type A (PCR) Not detected Influenza Type B (PCR) Not detected M. pneumoniae (PCR) Not detected Parainfluenza 1 (PCR) Not detected Parainfluenza 2 (PCR) Not detected Parainfluenza 3 (PCR) Not detected Parainfluenza 4 (PCR) Not detected RSV (PCR) Not detected Entero/Rhino (PCR) Not detected 06/27/23 06/27/23 06/27/23 08:10 09:30 09:40 WBC RBC Hgb Hct MCV MCH MCHC RDW Plt Count Neut % (Auto) Lymph % (Auto) Fountain % (Auto) Eos % (Auto) Baso % (Auto) Neut # (Auto) Lymph # (Auto) Fountain # (Auto) Eos # (Auto) Baso # (Auto) PT INR ABG Sample Site Right radial ABG pH 7.22 L* ABG pCO2 106.4 H* ABG pO2 90 ABG HCO3 44 H ABG Total CO2 47 H ABG O2 Saturation 94 L ABG Base Excess 16.0 H FiO2 50 Sodium 143 Potassium 4.3 Chloride 98 Carbon Dioxide 40 H* BUN 43 H Creatinine 1.81 H Estimated GFR 31 L BUN/Creatinine Ratio 23.8 H Glucose 225 H Hemoglobin A1c Lactate Calcium 10.4 H Total Bilirubin 0.6 AST 20 ALT 14 Alkaline Phosphatase 54 Total Creatine Kinase 54 Troponin I 0.064 H 0.066 H NT-Pro-B Natriuret Pep 26881 H Total Protein 8.0 Albumin 3.9 Globulin 4.1 Albumin/Globulin Ratio 1.0 Procalcitonin 0.18 Urine Color Urine Appearance Urine pH Ur Specific Harris Urine Protein Urine Glucose (UA) Urine Ketones Urine Occult Blood Urine Nitrate Urine Bilirubin Urine Urobilinogen Ur Leukocyte Esterase Urine RBC Urine WBC Ur Squamous Epith Cells Urine Bacteria Ur Culture Indicated? Vol Urine Centrifuged Chlamy pneumoniae PCR Adenovirus (PCR) B.parapertussis DNA PCR Coronavirus OC43 (PCR) Coronavirus HKU1 (PCR) Coronavirus 229E (PCR) SARS-CoV-2 (PCR) Coronavirus NL63 (PCR) Human Metapneumovir PCR Influenza Type A (PCR) Influenza Type B (PCR) M. pneumoniae (PCR) Parainfluenza 1 (PCR) Parainfluenza 2 (PCR) Parainfluenza 3 (PCR) Parainfluenza 4 (PCR) RSV (PCR) Entero/Rhino (PCR) 06/27/23 06/27/23 11:17 13:53 WBC RBC Hgb Hct MCV MCH MCHC RDW Plt Count Neut % (Auto) Lymph % (Auto) Fountain % (Auto) Eos % (Auto) Baso % (Auto) Neut # (Auto) Lymph # (Auto) Fountain # (Auto) Eos # (Auto) Baso # (Auto) PT INR ABG Sample Site Left radial Right radial ABG pH 7.22 L* 7.38 ABG pCO2 105.3 H* 58.8 H ABG pO2 76 L 92 ABG HCO3 43 H 35 H ABG Total CO2 46 H 36 H ABG O2 Saturation 90 L 97 ABG Base Excess 15.0 H 9.0 H FiO2 50 45 Sodium Potassium Chloride Carbon Dioxide BUN Creatinine Estimated GFR BUN/Creatinine Ratio Glucose Hemoglobin A1c Lactate Calcium Total Bilirubin AST ALT Alkaline Phosphatase Total Creatine Kinase Troponin I NT-Pro-B Natriuret Pep Total Protein Albumin Globulin Albumin/Globulin Ratio Procalcitonin Urine Color Urine Appearance Urine pH Ur Specific Harris Urine Protein Urine Glucose (UA) Urine Ketones Urine Occult Blood Urine Nitrate Urine Bilirubin Urine Urobilinogen Ur Leukocyte Esterase Urine RBC Urine WBC Ur Squamous Epith Cells Urine Bacteria Ur Culture Indicated? Vol Urine Centrifuged Chlamy pneumoniae PCR Adenovirus (PCR) B.parapertussis DNA PCR Coronavirus OC43 (PCR) Coronavirus HKU1 (PCR) Coronavirus 229E (PCR) SARS-CoV-2 (PCR) Coronavirus NL63 (PCR) Human Metapneumovir PCR Influenza Type A (PCR) Influenza Type B (PCR) M. pneumoniae (PCR) Parainfluenza 1 (PCR) Parainfluenza 2 (PCR) Parainfluenza 3 (PCR) Parainfluenza 4 (PCR) RSV (PCR) Entero/Rhino (PCR) Assessment & Plan Assessment & Plan narrative: # septic vs cardiogenic shock -BP down to 51/32 in ED requiring levophed -source unclear, PNA vs UTI as UA has pyuria and CXR has possible LLL infiltrate, procal 0.18 will trend -will use meropenem to cover for ESBL and pseudomonas as she has h/o of this in urine, plus vanc -BNP 14k, last EF 20-25% in Jan 2023, recheck echo -Levophed started in ED, will continue for now -wean pressors as able -appreciate tele ICU consult -f/up blood cultures # acute on chronic hypoxic and hypercapnic respiratory failure -on home 2L O2 -satting 60% by EMS -required Bipap in ED, then intubated due to worsening hypercapnea -solumedrol 60mg IV BID for possible COPD exac # BLANCA on CKD -creatinine 1.81 and baseline 1.3 -s/p 1L bolus in ED -monitor and renally dose meds # COPD -continue nebs prn # DM2, POA and stable -insulin drip while on IV steroids # HFrEF -last EF 30-35%, unclear if in cardiogenic shock as BNP only 2200 and previously 22k -repeat echo ordered # morbid obesity, POA. I spent a total of 35 minutes of critical care time on this patient's care today; this time is exclusive of procedural time. Code status is full code. DVT prophylaxis with heparin subcutaneous. Proxy is daughter Roxy. I have reviewed home meds and used all available resources to reconcile the home meds. Case discussed with ED physician/APC and patient will be admitted to the hospitalist service for further workup and management. This patient will be admitted as ICU and will require greater than 2 midnights of hospital time to treat shock. Quality VTE Deep Vein Thrombosis/Pulmonary Embolism Present on Admission: No
--- NOTE | 2023-06-27 18:50 | DI.ECHO.S_ITS ---
[facility] +---------+ [facility] +---------+ : : [address] : : : : [id number] : : : : Phone: [phone] Echocardiogram Report + + :Name: ELLA OSHAE Study Date: 06/28/2023 Height: 62 in : :[facility] ReadingLocation: Weight: 263 lb : : Gender: Female BSA: 2.1 m2 : :: 1960 Age: 62 yrs BP: 136/73 mmHg: :Reason For Study: POSSIBLE CARDIOGENIC SHOCK : :Ordering Physician: CORNELL, : :ZEN Harvey Performed By: Galina Loyola : :Referring: ZEN SARABIA : + + Interpretation Summary The ejection fraction is estimated to be 15-20%. There has been no significant change since the previous exam. The right ventricle is normal size. Right ventricular systolic function is moderately reduced. Procedure: Images were not obtained from all of the standard acoustic windows due to the limited scope of the study. The study quality was technically difficult. Comparison is made with the echocardiogram of 05/21/2023. The heart rate ranged between 87-93 bpm during the study. Left Ventricle: The left ventricle is mildly dilated. There is normal left ventricular wall thickness. The ejection fraction is estimated to be 15-20%. There has been no significant change since the previous exam. Right Ventricle: The right ventricle is normal size. Right ventricular systolic function is moderately reduced. Atria: The left atrium is mildly dilated. Right atrial size is normal. Tricuspid Valve: There is trace tricuspid regurgitation. Pulmonary artery pressures cannot be estimated because of the lack of a measurable TR jet velocity. Great Vessels: Inspiratory collapse cannot be assessed because of mechanical ventilation, thus CVP cannot be estimated.. Pericardium/ Pleura There is an anterior echo-free space consistent with a fat pad. MMode/2D Measurements & Calculations LVIDd: 4.9 cm LA A2 area: 28.4 cm2 LVIDs: 4.5 cm LA A4 area: 21.5 cm2 FS: 8.0 % LA length (vol): 6.6 cm EPSS: 2.0 cm LA vol: 78.7 ml IVSd: 0.88 cm LA vol index: 36.7 ml/m2 LVPWd: 0.97 cm LV cotto. diameter/BSA (cm/m^2): 2.3 LV sys. diameter/BSA (cm/m^2): 2.1 RA long axis: 6.8 cm RVD1 (basal): 3.7 cm RA area: 20.2 cm2 RA vol: 51.3 ml RA : 23.9 ml/m2 Reading Physician:05:19 PM
--- NOTE | 2023-06-27 19:02 | PM.CN.EICU ---
History of Present Illness Consult details IF CAMERA ACTIVATED, patient seen via real-time interactive audiovisual communication: Camera activated Chief complaint: SOB Consent obtained for tele-business analytics specialist care: Yes Patient Location: ICU Provider location (State): [place] Other participants/roles: Consulting Physician [facility] Medical History PONCE (obstructive sleep apnea) Chronic hypoxemic respiratory failure COPD (chronic obstructive pulmonary disease) DM2 (diabetes mellitus, type 2) HTN (hypertension) Thyroiditis Systolic and diastolic CHF, chronic Obesity Surgical History S/P hernia surgery Family History Mother No pertinent past medical history Father No pertinent past medical history Social History household members: other Smoking Status: Former smoker alcohol intake: former Current Medications Current Medications Medications: Home Medications acetaminophen 325 mg tablet (Tylenol) 650 mg PO TID 05/25/22 [History Confirmed 05/20/23] aspirin 81 mg tablet,delayed release 81 mg PO DAILY 05/25/22 [History Confirmed 05/20/23] budesonide-formoterol HFA 160 mcg-4.5 mcg/actuation aerosol inhaler 2 puff inhalation Q4H PRN Wheezing 05/25/22 [History Confirmed 05/20/23] bupropion HCl 150 mg tablet,12 hr sustained-release 150 mg PO BEDTIME 05/25/22 [History Confirmed 05/20/23] carvedilol 3.125 mg tablet 3.125 mg PO BID 05/25/22 [History Confirmed 05/20/23] cyanocobalamin (vitamin B-12) 500 mcg tablet 500 mcg PO DAILY 05/25/22 [History Confirmed 05/20/23] fenofibrate 160 mg tablet 160 mg PO DAILY 05/25/22 [History Confirmed 05/20/23] fluoxetine 20 mg tablet 20 mg PO DAILY 05/25/22 [History Confirmed 05/20/23] fluticasone propionate 50 mcg/actuation nasal spray,suspension 2 spray intranasal DAILY 05/25/22 [History Confirmed 05/20/23] gabapentin 300 mg capsule 300 mg PO BEDTIME 05/25/22 [History Confirmed 05/20/23] insulin glargine 100 unit/mL (3 mL) subcutaneous pen 22 unit SUBCUT BID 05/25/22 [History Confirmed 05/20/23] insulin lispro 100 unit/mL subcutaneous solution (Humalog U-100 Insulin) See Protocol SUBCUT TIDWM 05/25/22 [History Confirmed 05/20/23] loratadine 10 mg tablet 10 mg PO DAILY 05/25/22 [History Confirmed 05/20/23] magnesium oxide 200 mg PO DAILY 05/25/22 [History Confirmed 05/20/23] meclizine 25 mg tablet 25 mg PO Q8HR PRN Dizziness 05/25/22 [History Confirmed 05/20/23] montelukast 10 mg tablet 10 mg PO DAILY 05/25/22 [History Confirmed 05/20/23] nystatin 100,000 unit/gram topical powder 1 applic topical BID PRN Rash 05/25/22 [History Confirmed 05/20/23] ondansetron 4 mg disintegrating tablet 4 mg PO Q8H PRN Nausea 05/25/22 [History Confirmed 05/20/23] rosuvastatin 40 mg tablet 40 mg PO DAILY 05/25/22 [History Confirmed 05/20/23] sennosides 8.6 mg tablet (senna) 17.2 mg PO BEDTIME 05/25/22 [History Confirmed 05/20/23] tiotropium bromide 18 mcg capsule with inhalation device (Spiriva with HandiHaler) 1 cap inhalation DAILY 05/25/22 [History Confirmed 05/20/23] trazodone 50 mg tablet 25 mg PO BEDTIME 05/25/22 [History Confirmed 05/20/23] albuterol sulfate 90 mcg/actuation aerosol inhaler 4 puff inhalation Q4H PRN Shortness Of Breath Or Wheezing 08/15/22 [History Confirmed 05/20/23] levothyroxine 175 mcg tablet 175 mcg PO DAILY 08/15/22 [History Confirmed 05/20/23] potassium chloride 10 mEq tablet,extended release 20 meq PO DAILY 08/15/22 [History Confirmed 05/20/23] midodrine 5 mg tablet 10 mg PO BID 05/20/23 [History Confirmed 05/20/23] molnupiravir 800 mg BID 05/20/23 [History Confirmed 05/20/23] prednisone 40 mg DAILY 05/20/23 [History Confirmed 05/20/23] torsemide 20 mg DAILY 05/20/23 [History Confirmed 05/20/23] torsemide 10 mg tablet 10 mg PO BEDTIME 05/20/23 [History Confirmed 05/20/23] Visit Medications (administered) Generic Name Dose Route Start Last Admin Trade Name Faviola PRN Reason Stop Dose Admin Fentanyl 50 mcg 06/27/23 12:17 06/27/23 16:21 Fentanyl 100 Mcg/2 Ml Inj IV 50 mcg Q30M PRN Administration Pain, Severe (7-10) Fentanyl 1,000 mcg/ Dextrose 250 mls @ 21.175 mls/hr 06/27/23 12:30 06/27/23 13:01 IV 0.7 mcg/kg/hr TITRATE JAY JAY 21.175 mls/hr Administration Protocol 0.7 MCG/KG/HR Propofol 1,000 mg in 100 mls @ 7.26 mls/hr 06/27/23 12:30 06/27/23 15:00 Propofol IV 48.21 mcg/kg/min TITRATE JAY JAY 35 mls/hr Titration Protocol 10 MCG/KG/MIN NOREPINEPHRINE BITARTRATE/D5W 4 mg in 250 mls @ 45.375 mls/hr 06/27/23 13:45 06/27/23 14:55 Levophed IV 0.05 mcg/kg/min TITRATE JAY JAY 22.688 mls/hr Titration Protocol 0.1 MCG/KG/MIN Meropenem 2 gm/ Sodium 100 mls @ 200 mls/hr 06/27/23 17:00 06/27/23 18:38 Chloride IV 200 mls/hr Q12H JAY JAY Administration INSULIN DRIP PREMIX 100 unit in 100 mls @ 6 mls/hr 06/27/23 17:00 06/27/23 18:19 Myxredlin Drip Premix IV 4 mls/hr TITRATE JAY JAY 4 mls/hr Administration Protocol Methylprednisolone 60 mg 06/27/23 17:00 06/27/23 18:05 Methylprednisolone 125 Mg/2 Ml Vial IV 60 mg Q12H JAY JAY Administration Review of Systems Respiratory Comments: shortness of breath Exam Vital Signs (past 8 hours): - 06/27/23 11:15 06/27/23 11:21 06/27/23 11:21 Temperature Pulse Rate 86 86 Respiratory Rate 24 19 Blood Pressure 125/60 Pulse Oximetry 90 L 91 Oxygen Delivery Method 06/27/23 11:30 06/27/23 11:40 06/27/23 11:40 Temperature Pulse Rate 86 86 Respiratory Rate 21 16 Blood Pressure 119/62 Pulse Oximetry 91 93 Oxygen Delivery Method BiPAP 06/27/23 11:45 06/27/23 12:00 06/27/23 12:00 Temperature Pulse Rate 85 85 Respiratory Rate 21 24 Blood Pressure 104/64 Pulse Oximetry 93 93 Oxygen Delivery Method BiPAP BiPAP 06/27/23 12:05 06/27/23 12:05 06/27/23 12:15 Temperature Pulse Rate 86 86 Respiratory Rate 27 H 20 Blood Pressure 109/59 L Pulse Oximetry 94 94 Oxygen Delivery Method BiPAP BiPAP 06/27/23 12:20 06/27/23 12:20 06/27/23 12:30 Temperature Pulse Rate 86 86 Respiratory Rate 20 20 Blood Pressure 109/60 Pulse Oximetry 95 95 Oxygen Delivery Method BiPAP BiPAP 06/27/23 12:40 06/27/23 12:40 06/27/23 12:45 Temperature Pulse Rate 86 86 Respiratory Rate 19 18 Blood Pressure 115/64 Pulse Oximetry 96 95 Oxygen Delivery Method BiPAP BiPAP 06/27/23 13:00 06/27/23 13:00 06/27/23 13:03 Temperature Pulse Rate 81 71 Respiratory Rate 17 18 Blood Pressure 128/87 Pulse Oximetry 98 Oxygen Delivery Method Mechanical Ventilation 06/27/23 13:03 06/27/23 13:15 06/27/23 13:30 Temperature Pulse Rate 81 74 74 Respiratory Rate 9 L 16 16 Blood Pressure Pulse Oximetry 99 97 91 Oxygen Delivery Method 06/27/23 13:32 06/27/23 13:32 06/27/23 13:35 Temperature Pulse Rate 73 72 Respiratory Rate 18 18 Blood Pressure 47/28 L Pulse Oximetry 99 100 Oxygen Delivery Method 06/27/23 13:35 06/27/23 13:37 06/27/23 13:37 Temperature Pulse Rate 84 Respiratory Rate 18 Blood Pressure 53/32 L 51/32 L Pulse Oximetry 98 Oxygen Delivery Method 06/27/23 13:39 06/27/23 13:39 06/27/23 13:40 Temperature Pulse Rate 76 Respiratory Rate 18 Blood Pressure 118/68 117/64 Pulse Oximetry 94 Oxygen Delivery Method 06/27/23 13:40 06/27/23 13:42 06/27/23 13:42 Temperature Pulse Rate 77 75 Respiratory Rate 18 18 Blood Pressure 111/66 Pulse Oximetry 92 96 Oxygen Delivery Method 06/27/23 13:44 06/27/23 13:44 06/27/23 13:45 Temperature Pulse Rate 74 74 Respiratory Rate 18 18 Blood Pressure 113/68 Pulse Oximetry 98 99 Oxygen Delivery Method 06/27/23 13:46 06/27/23 13:46 06/27/23 14:18 Temperature Pulse Rate 74 76 Respiratory Rate 18 18 Blood Pressure 120/69 Pulse Oximetry 98 96 Oxygen Delivery Method Mechanical Ventilation 06/27/23 14:20 06/27/23 14:20 06/27/23 14:22 Temperature Pulse Rate 76 Respiratory Rate 18 Blood Pressure 138/79 126/82 Pulse Oximetry 96 Oxygen Delivery Method 06/27/23 14:22 06/27/23 14:24 06/27/23 14:24 Temperature Pulse Rate 75 76 Respiratory Rate 18 18 Blood Pressure 127/78 Pulse Oximetry 96 96 Oxygen Delivery Method 06/27/23 14:26 06/27/23 14:26 06/27/23 14:28 Temperature Pulse Rate 76 Respiratory Rate 18 Blood Pressure 128/77 126/77 Pulse Oximetry 96 Oxygen Delivery Method 06/27/23 14:28 06/27/23 14:30 06/27/23 14:30 Temperature Pulse Rate 76 76 Respiratory Rate 18 18 Blood Pressure 130/71 Pulse Oximetry 96 96 Oxygen Delivery Method 06/27/23 14:32 06/27/23 14:32 06/27/23 14:34 Temperature Pulse Rate 76 Respiratory Rate 18 Blood Pressure 133/66 130/74 Pulse Oximetry 96 Oxygen Delivery Method 06/27/23 14:34 06/27/23 14:36 06/27/23 14:36 Temperature Pulse Rate 76 75 Respiratory Rate 18 18 Blood Pressure 127/72 Pulse Oximetry 96 96 Oxygen Delivery Method 06/27/23 14:38 06/27/23 14:38 06/27/23 14:40 Temperature Pulse Rate 75 Respiratory Rate 18 Blood Pressure 132/63 126/78 Pulse Oximetry 96 Oxygen Delivery Method 06/27/23 14:40 06/27/23 14:42 06/27/23 14:42 Temperature Pulse Rate 77 83 Respiratory Rate 19 13 Blood Pressure 136/87 Pulse Oximetry 96 94 Oxygen Delivery Method 06/27/23 14:44 06/27/23 14:44 06/27/23 14:45 Temperature Pulse Rate 86 81 Respiratory Rate 9 L 13 Blood Pressure 79/50 L Pulse Oximetry 78 L 84 L Oxygen Delivery Method 06/27/23 14:46 06/27/23 14:46 06/27/23 14:48 Temperature Pulse Rate 78 Respiratory Rate 18 Blood Pressure 81/50 L 69/48 L Pulse Oximetry 98 Oxygen Delivery Method 06/27/23 14:48 06/27/23 14:51 06/27/23 14:51 Temperature Pulse Rate 75 80 Respiratory Rate 18 13 Blood Pressure 103/55 L Pulse Oximetry 97 98 Oxygen Delivery Method 06/27/23 14:53 06/27/23 14:53 06/27/23 14:54 Temperature Pulse Rate 79 Respiratory Rate Blood Pressure 147/77 H 161/74 H Pulse Oximetry 98 Oxygen Delivery Method 06/27/23 14:54 06/27/23 14:56 06/27/23 14:56 Temperature Pulse Rate 81 81 Respiratory Rate 13 15 Blood Pressure 156/76 H Pulse Oximetry 98 100 Oxygen Delivery Method 06/27/23 14:58 06/27/23 14:58 06/27/23 15:00 Temperature Pulse Rate 80 Respiratory Rate 20 Blood Pressure 145/67 H 127/61 Pulse Oximetry 99 Oxygen Delivery Method 06/27/23 15:00 06/27/23 15:02 06/27/23 15:02 Temperature Pulse Rate 79 77 Respiratory Rate 20 20 Blood Pressure 121/56 L Pulse Oximetry 98 98 Oxygen Delivery Method 06/27/23 15:04 06/27/23 15:04 06/27/23 15:06 Temperature Pulse Rate 76 Respiratory Rate 20 Blood Pressure 114/57 L 107/66 Pulse Oximetry 97 Oxygen Delivery Method 06/27/23 15:06 06/27/23 15:28 06/27/23 15:30 Temperature Pulse Rate 76 76 Respiratory Rate 20 20 Blood Pressure 116/70 Pulse Oximetry 97 94 Oxygen Delivery Method 06/27/23 15:30 06/27/23 15:32 06/27/23 15:32 Temperature Pulse Rate 75 76 Respiratory Rate 20 20 Blood Pressure 114/69 Pulse Oximetry 94 94 Oxygen Delivery Method 06/27/23 15:34 06/27/23 15:34 06/27/23 15:36 Temperature Pulse Rate 76 Respiratory Rate 20 Blood Pressure 115/73 117/73 Pulse Oximetry 94 Oxygen Delivery Method 06/27/23 15:36 06/27/23 15:38 06/27/23 15:38 Temperature Pulse Rate 76 76 Respiratory Rate 20 20 Blood Pressure 117/69 Pulse Oximetry 95 95 Oxygen Delivery Method 06/27/23 15:40 06/27/23 15:40 06/27/23 15:42 Temperature Pulse Rate 75 Respiratory Rate 20 Blood Pressure 119/73 119/67 Pulse Oximetry 95 Oxygen Delivery Method 06/27/23 15:42 06/27/23 15:44 06/27/23 15:44 Temperature Pulse Rate 75 75 Respiratory Rate 20 20 Blood Pressure 121/66 Pulse Oximetry 95 95 Oxygen Delivery Method 06/27/23 15:45 06/27/23 15:46 06/27/23 15:46 Temperature Pulse Rate 75 75 Respiratory Rate 20 20 Blood Pressure 122/71 Pulse Oximetry 95 95 Oxygen Delivery Method 06/27/23 15:48 06/27/23 15:48 06/27/23 15:50 Temperature Pulse Rate 76 Respiratory Rate 20 Blood Pressure 120/64 123/68 Pulse Oximetry 95 Oxygen Delivery Method 06/27/23 15:50 06/27/23 15:52 06/27/23 15:52 Temperature Pulse Rate 76 75 Respiratory Rate 20 20 Blood Pressure 120/70 Pulse Oximetry 95 95 Oxygen Delivery Method 06/27/23 15:54 06/27/23 15:54 06/27/23 15:56 Temperature Pulse Rate 75 Respiratory Rate 20 Blood Pressure 117/70 111/70 Pulse Oximetry 95 Oxygen Delivery Method 06/27/23 15:56 06/27/23 15:58 06/27/23 15:58 Temperature Pulse Rate 75 75 Respiratory Rate 20 20 Blood Pressure 122/66 Pulse Oximetry 95 95 Oxygen Delivery Method 06/27/23 16:00 06/27/23 16:00 06/27/23 16:02 Temperature Pulse Rate 75 75 Respiratory Rate 20 20 Blood Pressure 117/68 Pulse Oximetry 95 95 Oxygen Delivery Method 06/27/23 16:02 06/27/23 16:04 06/27/23 16:04 Temperature Pulse Rate 76 Respiratory Rate 20 Blood Pressure 126/70 123/74 Pulse Oximetry 95 Oxygen Delivery Method 06/27/23 16:06 06/27/23 16:06 06/27/23 16:08 Temperature Pulse Rate 76 Respiratory Rate 20 Blood Pressure 125/73 122/72 Pulse Oximetry 95 Oxygen Delivery Method 06/27/23 16:08 06/27/23 16:10 06/27/23 16:10 Temperature Pulse Rate 75 76 Respiratory Rate 20 20 Blood Pressure 121/69 Pulse Oximetry 95 94 Oxygen Delivery Method 06/27/23 16:12 06/27/23 16:12 06/27/23 16:14 Temperature Pulse Rate 75 75 Respiratory Rate 20 20 Blood Pressure 113/60 Pulse Oximetry 94 94 Oxygen Delivery Method 06/27/23 16:14 06/27/23 16:15 06/27/23 16:16 Temperature Pulse Rate 75 Respiratory Rate 20 Blood Pressure 113/71 118/68 Pulse Oximetry 94 Oxygen Delivery Method 06/27/23 16:16 06/27/23 16:24 06/27/23 16:26 Temperature Pulse Rate 76 Respiratory Rate 20 Blood Pressure 121/69 130/61 Pulse Oximetry 94 Oxygen Delivery Method 06/27/23 16:28 06/27/23 17:00 06/27/23 17:40 Temperature 98.6 F Pulse Rate 76 Respiratory Rate 20 Blood Pressure 129/65 Pulse Oximetry Oxygen Delivery Method Fraction of Inspired Oxygen 50 Oxygen Delivery Method Mechanical Ventilation Objective ECG Impression: ordered Labs 06/27/23 07:30 06/27/23 08:10 Labs: Laboratory Results - last 24 hr 06/27/23 06/27/23 06/27/23 07:30 07:53 08:07 WBC 13.9 H RBC 3.84 L Hgb 12.5 Hct 39.2 MCV 102.0 H MCH 32.6 MCHC 32.0 RDW 18.7 H Plt Count 327 Neut % (Auto) 77.0 H Lymph % (Auto) 14.6 L [place] % (Auto) 6.5 Eos % (Auto) 1.1 L Baso % (Auto) 0.8 Neut # (Auto) 18120 H Lymph # (Auto) 2000 [place] # (Auto) 900 Eos # (Auto) 100 Baso # (Auto) 100 PT 12.2 INR 1.1 ABG Sample Site Right radial ABG pH 7.27 L* ABG pCO2 93.0 H* ABG pO2 95 ABG HCO3 43 H ABG Total CO2 45 H ABG O2 Saturation 95 ABG Base Excess 16.0 H FiO2 50 Sodium Potassium Chloride Carbon Dioxide BUN Creatinine Estimated GFR BUN/Creatinine Ratio Glucose Hemoglobin A1c 9.3 H Lactate 1.0 Calcium Total Bilirubin AST ALT Alkaline Phosphatase Total Creatine Kinase Troponin I NT-Pro-B Natriuret Pep Total Protein Albumin Globulin Albumin/Globulin Ratio Procalcitonin Urine Color Yellow Urine Appearance Cloudy Urine pH 5.5 Ur Specific [place] 1.025 Urine Protein 1+ H Urine Glucose (UA) 1+ H Urine Ketones Negative Urine Occult Blood 2+ H Urine Nitrate Negative Urine Bilirubin Negative Urine Urobilinogen 0.2 Ur Leukocyte Esterase 3+ H Urine RBC None seen Urine WBC 30-100/hpf H Ur Squamous Epith Cells None seen Urine Bacteria Many (>30) H Ur Culture Indicated? Specimen cultured Vol Urine Centrifuged 10ml (spun) Chlamy pneumoniae PCR Not detected Adenovirus (PCR) Not detected B.parapertussis DNA PCR Not detected Coronavirus OC43 (PCR) Not detected Coronavirus HKU1 (PCR) Not detected Coronavirus 229E (PCR) Not detected SARS-CoV-2 (PCR) Not detected Coronavirus NL63 (PCR) Not detected Human Metapneumovir PCR Not detected Influenza Type A (PCR) Not detected Influenza Type B (PCR) Not detected M. pneumoniae (PCR) Not detected Parainfluenza 1 (PCR) Not detected Parainfluenza 2 (PCR) Not detected Parainfluenza 3 (PCR) Not detected Parainfluenza 4 (PCR) Not detected RSV (PCR) Not detected Entero/Rhino (PCR) Not detected 06/27/23 06/27/23 06/27/23 08:10 09:30 09:40 WBC RBC Hgb Hct MCV MCH MCHC RDW Plt Count Neut % (Auto) Lymph % (Auto) [place] % (Auto) Eos % (Auto) Baso % (Auto) Neut # (Auto) Lymph # (Auto) [place] # (Auto) Eos # (Auto) Baso # (Auto) PT INR ABG Sample Site Right radial ABG pH 7.22 L* ABG pCO2 106.4 H* ABG pO2 90 ABG HCO3 44 H ABG Total CO2 47 H ABG O2 Saturation 94 L ABG Base Excess 16.0 H FiO2 50 Sodium 143 Potassium 4.3 Chloride 98 Carbon Dioxide 40 H* BUN 43 H Creatinine 1.81 H Estimated GFR 31 L BUN/Creatinine Ratio 23.8 H Glucose 225 H Hemoglobin A1c Lactate Calcium 10.4 H Total Bilirubin 0.6 AST 20 ALT 14 Alkaline Phosphatase 54 Total Creatine Kinase 54 Troponin I 0.064 H 0.066 H NT-Pro-B Natriuret Pep 30832 H Total Protein 8.0 Albumin 3.9 Globulin 4.1 Albumin/Globulin Ratio 1.0 Procalcitonin 0.18 Urine Color Urine Appearance Urine pH Ur Specific [place] Urine Protein Urine Glucose (UA) Urine Ketones Urine Occult Blood Urine Nitrate Urine Bilirubin Urine Urobilinogen Ur Leukocyte Esterase Urine RBC Urine WBC Ur Squamous Epith Cells Urine Bacteria Ur Culture Indicated? Vol Urine Centrifuged Chlamy pneumoniae PCR Adenovirus (PCR) B.parapertussis DNA PCR Coronavirus OC43 (PCR) Coronavirus HKU1 (PCR) Coronavirus 229E (PCR) SARS-CoV-2 (PCR) Coronavirus NL63 (PCR) Human Metapneumovir PCR Influenza Type A (PCR) Influenza Type B (PCR) M. pneumoniae (PCR) Parainfluenza 1 (PCR) Parainfluenza 2 (PCR) Parainfluenza 3 (PCR) Parainfluenza 4 (PCR) RSV (PCR) Entero/Rhino (PCR) 06/27/23 06/27/23 11:17 13:53 WBC RBC Hgb Hct MCV MCH MCHC RDW Plt Count Neut % (Auto) Lymph % (Auto) [place] % (Auto) Eos % (Auto) Baso % (Auto) Neut # (Auto) Lymph # (Auto) [place] # (Auto) Eos # (Auto) Baso # (Auto) PT INR ABG Sample Site Left radial Right radial ABG pH 7.22 L* 7.38 ABG pCO2 105.3 H* 58.8 H ABG pO2 76 L 92 ABG HCO3 43 H 35 H ABG Total CO2 46 H 36 H ABG O2 Saturation 90 L 97 ABG Base Excess 15.0 H 9.0 H FiO2 50 45 Sodium Potassium Chloride Carbon Dioxide BUN Creatinine Estimated GFR BUN/Creatinine Ratio Glucose Hemoglobin A1c Lactate Calcium Total Bilirubin AST ALT Alkaline Phosphatase Total Creatine Kinase Troponin I NT-Pro-B Natriuret Pep Total Protein Albumin Globulin Albumin/Globulin Ratio Procalcitonin Urine Color Urine Appearance Urine pH Ur Specific [place] Urine Protein Urine Glucose (UA) Urine Ketones Urine Occult Blood Urine Nitrate Urine Bilirubin Urine Urobilinogen Ur Leukocyte Esterase Urine RBC Urine WBC Ur Squamous Epith Cells Urine Bacteria Ur Culture Indicated? Vol Urine Centrifuged Chlamy pneumoniae PCR Adenovirus (PCR) B.parapertussis DNA PCR Coronavirus OC43 (PCR) Coronavirus HKU1 (PCR) Coronavirus 229E (PCR) SARS-CoV-2 (PCR) Coronavirus NL63 (PCR) Human Metapneumovir PCR Influenza Type A (PCR) Influenza Type B (PCR) M. pneumoniae (PCR) Parainfluenza 1 (PCR) Parainfluenza 2 (PCR) Parainfluenza 3 (PCR) Parainfluenza 4 (PCR) RSV (PCR) Entero/Rhino (PCR) Assessment & Plan Assessment and plan (1) Respiratory failure: Qualifiers: Chronicity: acute Respiratory failure complication: hypoxia and hypercapnia Qualified Code(s): J96.01 - Acute respiratory failure with hypoxia; J96.02 - Acute respiratory failure with hypercapnia Status: Acute (2) Acute exacerbation of chronic obstructive airways disease: Status: Acute (3) UTI (urinary tract infection): Status: Acute (4) Pneumonia: Qualifiers: Laterality: left Lung location: lower lobe of lung Pneumonia type: due to unspecified organism Qualified Code(s): J18.9 - Pneumonia, unspecified organism Status: Acute (5) CHF (congestive heart failure): Status: Acute (6) DM2 (diabetes mellitus, type 2): Status: Acute (7) Acute on chronic kidney failure: Status: Acute (8) Acute hypercapnic respiratory failure: Status: Acute (9) Septic shock: Status: Acute Plan Acute hypoxic and hypercarbic respiratory failure - LLL opacity with effusion, on minimal vent settings, LLL PNA vs. CHF vs. COPD exacerbation, lungs clear currently - send bronch brush, continue abx - COPD exacerbation treatment with steroids and Q4 nebs - lasix for fluid removal - repeat ABG now - goal sat > 88% - start daily SBT in AM Septic vs. Cardiogenic shock - EF 15-20% at baseline - send lactate, SCVO2 - s/p lasix with moderate response - wean levo to keep MAP > 65 - MRSA, procal, urine and blood cultures pending - vanc and karen - levo at 6mcg without significant increase with diuresis - NPO UTI - follow cultures, abx CHF - lasix - home ASA, statin BLANCA - basline likely 1.2-1.8, monitor UOP -hold off on further lasix until SCVO2 returns Sedation - add dex, wean prop - full daily SAT DM with hyperglycemia - no gap - insulin drip protocol, add 8 units of regular insulin - Q1 glucose PPx: SQH, pepcid, bedrest Time Spent With Patient Time with patient: 50 to 69 minutes with 50% spent counseling/coordinating care
[2023-06-27 19:15] LABS: MRSA (Nasal) PCR DETECTED (Not Detect)
[2023-06-27 19:16] LABS: Lactate (Lactic Acid) 1.9 mmol/L (0.7-2.1)
--- NOTE | 2023-06-27 19:49 | PC.NURSE ---
Patient brought up from ER to room 230. Patient ventilated, with sedation medications in progress, transferred into bed. Dr. Alexis notified of patient's arrival. Skin check performed, stage 2 PU to right buttocks noted along with erythemia and discoloration to buttocks. Fissure or crack noted along gluteal crack. VSS. Left nare NG tube placed in ER on low intermittent suction. DI nurse came up to place PICC line and confirmed placement with Xray, and IV pressor moved to PICC line once in place. Babcock in place draining yellow urine with mucous noted. RT notified of ABG order. Spoke with Dr. Ramos tele roll edge stitcher hand and a waiting placement of her updated orders. Report given to night auditor RN to assume care. Bed alarm on for safety. Call light within reach.
[2023-06-27 20:03] LABS: Allen Test for ABG Passed? Yes, Passed; Blood Gas Collection Site Left Radial; Fractionated Inspired Oxygen 35; HCO3 ABG 24 mmol/L (23-27); Oxygen Saturation ABG 97 % (95-100); PCO2 ABG 31.6 mmHg (35-45); PO2 ABG 80 mmHg (80-100); TCO2 ABG 25 mmol/L (23-27); pH ABG 7.49 (7.35-7.45)
[2023-06-27] MEDS: dexmedeTOMIDine in 0.9 % NaCL 400 MCG/100 ML PLAST..BAG 5.975 MCG IV (20:33)
[2023-06-27] MEDS: FAMOTIDINE 20 MG/2 ML VIAL IV (20:40)
[2023-06-27] MEDS: ATORVASTATIN 20 MG TABLET 80 MG PO (20:40)
[2023-06-27] MEDS: propofoL 1,000 MG/100 ML VIAL 35 MG IV (21:03)
[2023-06-27 21:17] LABS: HCO3 VBG 27 mmol/L (24-28); Oxygen Saturation VBG 52 % (70-75); PCO2 VBG 42.4 mmHg (45-50); PO2 VBG 27 mmHg (35-45); Total CO2 VBG 29 mmol/L (24-29); pH VBG 7.42 (7.33-7.43)
[2023-06-27 21:18] LABS: Fractionated Inspired Oxygen 35
[2023-06-27] MEDS: HEPARIN 5,000 UNIT/ML VIAL 5000 UNIT SUBCUT (21:50)
[2023-06-27] MEDS: CHLORHEXIDINE GLUCONATE 15 ML CUP PO (21:50)
[2023-06-27] MEDS: INSULIN REGULAR 100 UNIT/ML 3 ML VIAL 8 UNIT IV (22:07)
[2023-06-27 22:10] LABS: Magnesium 2.2 mg/dL (1.6-2.3); Phosphorous 1.4 mg/dL (2.8-4.1)
[2023-06-27 22:27] LABS: BUN Creatinine Ratio 26.3 (6-22); Blood Urea Nitrogen 46 mg/dL (7-17); Carbon Dioxide 27 mmol/L (22-32); Chloride 99 mmol/L (98-107); Estimated Glomerular Filt Rate 33 mL/min (>60); Glucose 340 mg/dL (80-110); HEMOLYSIS < 15 (0-50); Potassium 2.8 mmol/L (3.4-5.1); Sodium 142 mmol/L (137-145)
[2023-06-27] MEDS: MAGNESIUM SULFATE 2 GM/50 ML PIGGYBACK IV (22:45)
[2023-06-27] MEDS: EPINEPHrine 4 MG in DEXTROSE 5% IN WATER 246 ML 7.5 MG IV (23:02)
[2023-06-27] MEDS: POTASSIUM PHOSPHATE 20 MMOL in SODIUM CHLORIDE 0.9% 100 ML 25 MMOL IV (23:30)
[2023-06-28] VITALS (100 sets, daily range): BP systolic 81–148; BP diastolic 51–91; PULSE 66–136; RESP 16–35; TEMP 36.6–37.6; O2SAT 89–98
--- NOTE | 2023-06-28 00:02 | RT ---
Nurse advised pt potassium was 2.8 so holding off on the Duoneb until potassium comes up
[2023-06-28] MEDS: dexmedeTOMIDine in 0.9 % NaCL 400 MCG/100 ML PLAST..BAG 8.963 MCG IV (00:14)
[2023-06-28] MEDS: INSULIN DRIP PREMIX 100 UNIT/100 ML PLAST..BAG 16 UNIT IV (00:16)
[2023-06-28] MEDS: propofoL 1,000 MG/100 ML VIAL 15 MG IV (03:01)
--- NOTE | 2023-06-28 03:34 | PM.EICU.INT ---
Teleintensivist Intervention Date/Time Was camera activated?: No Issue(s) Addressed Issue(s): Arrhythmia (Tachycardia in 130s on epinephrine infusion) Intervention(s) :: Change epinephrine infusion to NE/vasopressin gtts; check EKG
[2023-06-28] MEDS: VASOPRESSIN 40 UNIT in SODIUM CHLORIDE 0.9% 100 ML 4.5 UNIT IV (03:54)
[2023-06-28 04:41] LABS: Add Manual Diff / Slide Review NO; Basophils Absolute Auto 200 /uL (0-100); Basophils Percent Auto 1.2 % (0-2); Eosinophils Absolute Auto 0 /uL (0-450); Eosinophils Percent Auto 0.1 % (2-4); Hematocrit 37.4 % (36-46); Hemoglobin 12.1 g/dL (12.0-16.0); Lymphocytes Absolute Auto 1500 /uL (1100-4500); Lymphocytes Percent Auto 9.8 % (25-40); Mean Corpuscular HGB Conc 32.4 % (30-36); Mean Corpuscular Hemoglobin 31.8 PG (26-34); Mean Corpuscular Volume 98.4 fL (80-100); Monocytes Absolute Auto 1000 /uL (0-900); Monocytes Percent Auto 6.7 % (3-14); Neutrophils Absolute Auto 12600 /uL (1500-7000); Neutrophils Percent Auto 82.2 % (50-75); Platelet Count 348 X10^3/uL (150-400); Red Cell Distribution Width 18.4 % (11.6-14.8); White Blood Cell Count 15.3 X10^3/uL (4.5-11.0)
[2023-06-28] MEDS: MEROPENEM 2 GM in SODIUM CHLORIDE 0.9% 100 ML IV ×2 (05:04→17:19)
[2023-06-28] MEDS: LEVOTHYROXINE 75 MCG TABLET PO (05:05)
[2023-06-28] MEDS: HEPARIN 5,000 UNIT/ML VIAL 5000 UNIT SUBCUT (05:05)
[2023-06-28] MEDS: LEVOTHYROXINE 100 MCG TABLET PO (05:05)
[2023-06-28 05:07] LABS: BUN Creatinine Ratio 29.5 (6-22); Blood Urea Nitrogen 51 mg/dL (7-17); Calcium 10.4 mg/dL (8.4-10.2); Carbon Dioxide 39 mmol/L (22-32); Chloride 100 mmol/L (98-107); Estimated Glomerular Filt Rate 33 mL/min (>60); Glucose 127 mg/dL (80-110); HEMOLYSIS < 15 (0-50); Potassium 3.4 mmol/L (3.4-5.1); Sodium 145 mmol/L (137-145)
[2023-06-28] MEDS: methylPREDNISolone 125 MG/2 ML VIAL 60 MG IV ×2 (05:07→17:02)
[2023-06-28 05:25] LABS: Procalcitonin 0.28 ng/mL (<0.5)
--- NOTE | 2023-06-28 05:27 | PC.NURSE ---
mini shifter RN note [id number] assumed care, pt intubated and sedated, withdraws from pain and grimaces, RASS -2/-3, pupils 2mm sluggish, bilat soft wrist restraints on to maintain therapy and protect lines, initially pt SA 80s with MAP >65 on levophed, then became accelerated junct/SVT in 130-150s, notified and orders to change levophed to epinephrine gtt, 2gm Mg IV, pt returned to SR/SA 60-80s, PPPx4 weak, afebrile, 1+ gen edema, overnight pt's HR sustaining in 130s with MAP 60-65, MD notifed and orders to restart levophed, stop epi gtt and start vasopressin, pt responded with decrease in HR to 60s, occasional junctional rhythm and PVCs, #7.5 ETT/20 at gums, vent rate 16/TV 400/peep 5/35% FIO2, lungs clear and decreased, scant secretions, O2 sats >90%, L nare NGT for small amt bile drainage, abd round soft with hypo BS, r/c draining clear yellow urine, SANDY PICC patent, x2 periph IV patent, meds and labs as ordered, K+Phos IV given, insulin gtt as ordered, q1h glucose checks per protocol, fent gtt titrated off and precedex started, propofol per protocol
[2023-06-28 05:37] LABS: Troponin I 0.403 ng/mL (0.01-0.034)
[2023-06-28] MEDS: ALBUTEROL/IPRATROPIUM 3 ML AMPUL INH ×5 (07:14→22:12)
[2023-06-28] MEDS: CHLORHEXIDINE GLUCONATE 15 ML CUP PO ×2 (08:30→20:13)
[2023-06-28] MEDS: HEPARIN DRIP 25,000 UNIT/500 ML IV.SOLN 19.837 UNIT IV (08:30)
[2023-06-28] MEDS: FAMOTIDINE 20 MG/2 ML VIAL IV (08:30)
[2023-06-28] MEDS: ASPIRIN EC 81 MG TABLET PO (08:35)
[2023-06-28] MEDS: propofoL 1,000 MG/100 ML VIAL 25 MG IV (08:38)
[2023-06-28] MEDS: HEPARIN 5,000 UNIT/ML VIAL 7000 UNIT IV (08:38)
[2023-06-28] MEDS: VANCOMYCIN 1,250 MG/250 ML PIGGYBACK 250 MG IV (09:24)
[2023-06-28 10:15] LABS: Troponin I 0.448 ng/mL (0.01-0.034)
[2023-06-28 10:29] LABS: PCO2 VBG 43.2 mmHg (45-50); PO2 VBG 27 mmHg (35-45); pH VBG 7.53 (7.33-7.43)
[2023-06-28 10:30] LABS: Fractionated Inspired Oxygen 30; HCO3 VBG 36 mmol/L (24-28); Oxygen Saturation VBG 58 % (70-75); Total CO2 VBG 37 mmol/L (24-29)
[2023-06-28 10:39] LABS: Phosphorous 1.6 mg/dL (2.8-4.1)
[2023-06-28] MEDS: dexmedeTOMIDine in 0.9 % NaCL 400 MCG/100 ML PLAST..BAG 11.95 MCG IV ×2 (10:51→18:14)
[2023-06-28] MEDS: POTASSIUM PHOSPHATE 30 MMOL in SODIUM CHLORIDE 0.9% 500 ML 85 MMOL IV (12:23)
--- NOTE | 2023-06-28 12:53 | P.TELICUPN_ITS ---
Subjective Subjective IF CAMERA ACTIVATED, patient seen via real-time interactive audiovisual communication: Camera activated Consent obtained for tele-cotton jammer care: Yes Patient Location: ICU Provider location (State): [place] Other participants/roles: RN Interval history: pt remians intubated on multuple pressors. unclear if this cardiogenic or not, but not on ionotropic agents yet - she has been started on hep gtt though, anbd TTE is pending Current Medications Current Medications Medications: Home Medications acetaminophen 325 mg tablet (Tylenol) 650 mg PO TID 05/25/22 [History Confirmed 06/27/23] aspirin 81 mg tablet,delayed release 81 mg PO DAILY 05/25/22 [History Confirmed 06/27/23] budesonide-formoterol HFA 160 mcg-4.5 mcg/actuation aerosol inhaler 2 puff inhalation Q4H PRN Wheezing 05/25/22 [History Confirmed 06/27/23] bupropion HCl 150 mg tablet,12 hr sustained-release 150 mg PO BEDTIME 05/25/22 [History Confirmed 06/27/23] carvedilol 3.125 mg tablet 3.125 mg PO BID 05/25/22 [History Confirmed 06/27/23] cyanocobalamin (vitamin B-12) 500 mcg tablet 500 mcg PO DAILY 05/25/22 [History Confirmed 06/27/23] fenofibrate 160 mg tablet 160 mg PO DAILY 05/25/22 [History Confirmed 06/27/23] fluoxetine 20 mg tablet 20 mg PO DAILY 05/25/22 [History Confirmed 06/27/23] fluticasone propionate 50 mcg/actuation nasal spray,suspension 2 spray intranasal DAILY 05/25/22 [History Confirmed 06/27/23] gabapentin 300 mg capsule 300 mg PO BEDTIME 05/25/22 [History Confirmed 06/27/23] insulin glargine 100 unit/mL (3 mL) subcutaneous pen 22 unit SUBCUT BID 05/25/22 [History Confirmed 06/27/23] insulin lispro 100 unit/mL subcutaneous solution (Humalog U-100 Insulin) See Protocol SUBCUT TIDWM 05/25/22 [History Confirmed 06/27/23] loratadine 10 mg tablet 10 mg PO DAILY 05/25/22 [History Confirmed 06/27/23] magnesium oxide 200 mg PO DAILY 05/25/22 [History Confirmed 06/27/23] meclizine 25 mg tablet 25 mg PO Q8HR PRN Dizziness 05/25/22 [History Confirmed 06/27/23] montelukast 10 mg tablet 10 mg PO DAILY 05/25/22 [History Confirmed 06/27/23] nystatin 100,000 unit/gram topical powder 1 applic topical BID PRN Rash 05/25/22 [History Confirmed 06/27/23] ondansetron 4 mg disintegrating tablet 4 mg PO Q8H PRN Nausea 05/25/22 [History Confirmed 06/27/23] rosuvastatin 40 mg tablet 40 mg PO DAILY 05/25/22 [History Confirmed 06/27/23] sennosides 8.6 mg tablet (senna) 17.2 mg PO BEDTIME 05/25/22 [History Confirmed 06/27/23] tiotropium bromide 18 mcg capsule with inhalation device (Spiriva with HandiHaler) 1 cap inhalation DAILY 05/25/22 [History Confirmed 06/27/23] trazodone 50 mg tablet 25 mg PO BEDTIME 05/25/22 [History Confirmed 06/27/23] albuterol sulfate 90 mcg/actuation aerosol inhaler 4 puff inhalation Q4H PRN Shortness Of Breath Or Wheezing 08/15/22 [History Confirmed 06/27/23] levothyroxine 175 mcg tablet 175 mcg PO DAILY 08/15/22 [History Confirmed 06/27/23] potassium chloride 10 mEq tablet,extended release 20 meq PO DAILY 08/15/22 [History Confirmed 06/27/23] midodrine 5 mg tablet 10 mg PO BID 05/20/23 [History Confirmed 06/27/23] torsemide 20 mg DAILY 05/20/23 [History Confirmed 06/27/23] torsemide 10 mg tablet 10 mg PO BEDTIME 05/20/23 [History Confirmed 06/27/23] Visit Medications (administered) Generic Name Dose Route Start Last Admin Trade Name Freq PRN Reason Stop Dose Admin Albuterol/Ipratropium 3 ml 06/27/23 19:00 06/28/23 09:17 Albuterol/Ipratropium 3 Ml Ampul INH 3 ml [id number] JAY JAY Administration Aspirin 81 mg 06/28/23 09:00 06/28/23 08:35 Aspirin Ec 81 Mg Tablet PO 81 mg DAILY JAY JAY Administration Atorvastatin Calcium 80 mg 06/27/23 21:00 06/27/23 20:40 Atorvastatin 20 Mg Tablet PO 80 mg BEDTIME JAY JAY Administration Chlorhexidine Gluconate 15 ml 06/27/23 21:00 06/28/23 08:30 Chlorhexidine Gluconate 15 Ml Cup PO 15 ml BID JAY JAY Administration Fentanyl 50 mcg 06/27/23 12:17 06/27/23 16:21 Fentanyl 100 Mcg/2 Ml Inj IV 50 mcg Q30M PRN Administration Pain, Severe (7-10) Fentanyl 1,000 mcg/ Dextrose 250 mls @ 21.175 mls/hr 06/27/23 12:30 06/27/23 23:06 IV 0 mcg/kg/hr TITRATE JAY JAY 0 mls/hr Titration Protocol 0.7 MCG/KG/HR Propofol 1,000 mg in 100 mls @ 7.26 mls/hr 06/27/23 12:30 06/28/23 08:38 Propofol IV 34.44 mcg/kg/min TITRATE JAY JAY 25 mls/hr Administration Protocol 10 MCG/KG/MIN NOREPINEPHRINE BITARTRATE/D5W 4 mg in 250 mls @ 45.375 mls/hr 06/27/23 13:45 06/28/23 05:13 Levophed IV 0.02 mcg/kg/min TITRATE JAY JAY 7.5 mls/hr Titration Protocol 0.1 MCG/KG/MIN Meropenem 2 gm/ Sodium 100 mls @ 200 mls/hr 06/27/23 17:00 06/28/23 05:04 Chloride IV 200 mls/hr Q12H JAY JAY Administration INSULIN DRIP PREMIX 100 unit in 100 mls @ 6 mls/hr 06/27/23 17:00 06/28/23 12:00 Myxredlin Drip Premix IV 0 mls/hr TITRATE JAY JAY 0 mls/hr Titration Protocol dexmedeTOMIDine in 0.9 % NaCL 400 mcg in 100 mls @ 5.975 mls/hr 06/27/23 19:30 06/28/23 10:51 Precedex IV 0.4 mcg/kg/hr TITRATE JAY JAY 11.95 mls/hr Administration Protocol 0.2 MCG/KG/HR Epinephrine HCl 4 mg/ Dextrose 250 mls @ 7.5 mls/hr 06/27/23 21:45 06/28/23 03:50 IV 0 mcg/min TITRATE JAY JAY 0 mls/hr Titration Protocol 2 MCG/MIN Vasopressin 40 unit/ Sodium 102 mls @ 4.5 mls/hr 06/28/23 03:33 06/28/23 10:29 Chloride IV 0 mls/hr CONT JAY JAY Infusion Heparin Sodium/Dextrose 25,000 unit in 500 mls @ 28.68 mls/hr 06/28/23 08:00 06/28/23 08:30 Heparin Drip IV 8.3 units/kg/hr CONT JAY JAY 19.837 mls/hr Administration Protocol 12 UNITS/KG/HR Vancomycin HCl 1,250 mg in 250 mls @ 250 mls/hr 06/28/23 10:00 06/28/23 09:24 Vancomycin IV 250 mls/hr Q24H JAY JAY Administration Potassium Phosphate 30 mmol/ 510 mls @ 85 mls/hr 06/28/23 11:30 06/28/23 12:23 Sodium Chloride IV 06/28/23 17:29 85 mls/hr NOW ONE Administration Levothyroxine Sodium 75 mcg 06/28/23 06:00 06/28/23 05:05 Levothyroxine 75 Mcg Tablet PO 75 mcg DAILY@0600 JAY JAY Administration Levothyroxine Sodium 100 mcg 06/28/23 06:00 06/28/23 05:05 Levothyroxine 100 Mcg Tablet PO 100 mcg DAILY@0600 JAY JAY Administration Methylprednisolone 60 mg 06/27/23 17:00 06/28/23 05:07 Methylprednisolone 125 Mg/2 Ml Vial IV 60 mg Q12H JAY JAY Administration Objective Ventilator Parameters: Ventilator Settings FiO2 35 RT Vent Frequency 16 Ventilator Tidal Volume 370 Exhaled Vt/kg IBW 6.5 Positive End Expiratory 5 Pressure Inspiratory Phase Time 0.85 I:E Ratio 1:2.9 Patient Position HOB >= 30 degrees Labs 06/28/23 04:30 06/28/23 04:30 Labs: Laboratory Results - last 24 hr 06/27/23 06/27/23 06/27/23 07:30 08:10 11:40 WBC RBC Hgb Hct MCV MCH MCHC RDW Plt Count Neut % (Auto) Lymph % (Auto) [place] % (Auto) Eos % (Auto) Baso % (Auto) Neut # (Auto) Lymph # (Auto) [place] # (Auto) Eos # (Auto) Baso # (Auto) ABG Sample Site ABG pH ABG pCO2 ABG pO2 ABG HCO3 ABG Total CO2 ABG O2 Saturation ABG Base Excess VBG pH Cancelled VBG pCO2 Cancelled VBG pO2 Cancelled VBG HCO3 Cancelled VBG Total CO2 Cancelled VBG O2 Saturation Cancelled VBG Base Excess Cancelled FiO2 Cancelled Sodium Potassium Chloride Carbon Dioxide BUN Creatinine Estimated GFR BUN/Creatinine Ratio Glucose Hemoglobin A1c 9.3 H Lactate Calcium Phosphorus Magnesium Troponin I Procalcitonin 0.18 Nasal Screen MRSA (PCR) 06/27/23 06/27/23 06/27/23 13:53 17:41 18:40 WBC RBC Hgb Hct MCV MCH MCHC RDW Plt Count Neut % (Auto) Lymph % (Auto) [place] % (Auto) Eos % (Auto) Baso % (Auto) Neut # (Auto) Lymph # (Auto) [place] # (Auto) Eos # (Auto) Baso # (Auto) ABG Sample Site Right radial ABG pH 7.38 ABG pCO2 58.8 H ABG pO2 92 ABG HCO3 35 H ABG Total CO2 36 H ABG O2 Saturation 97 ABG Base Excess 9.0 H VBG pH VBG pCO2 VBG pO2 VBG HCO3 VBG Total CO2 VBG O2 Saturation VBG Base Excess FiO2 45 Sodium Potassium Chloride Carbon Dioxide BUN Creatinine Estimated GFR BUN/Creatinine Ratio Glucose Hemoglobin A1c Lactate 1.9 Calcium Phosphorus Magnesium Troponin I Procalcitonin Nasal Screen MRSA (PCR) Detected H 06/27/23 06/27/23 06/27/23 19:30 19:38 20:07 WBC RBC Hgb Hct MCV MCH MCHC RDW Plt Count Neut % (Auto) Lymph % (Auto) [place] % (Auto) Eos % (Auto) Baso % (Auto) Neut # (Auto) Lymph # (Auto) [place] # (Auto) Eos # (Auto) Baso # (Auto) ABG Sample Site Left radial ABG pH 7.49 H ABG pCO2 31.6 L ABG pO2 80 ABG HCO3 24 ABG Total CO2 25 ABG O2 Saturation 97 ABG Base Excess 1.0 VBG pH 7.42 VBG pCO2 42.4 L VBG pO2 27 L VBG HCO3 27 VBG Total CO2 29 VBG O2 Saturation 52 L VBG Base Excess 3.0 FiO2 35 35 Sodium Potassium Chloride Carbon Dioxide BUN Creatinine Estimated GFR BUN/Creatinine Ratio Glucose Hemoglobin A1c Lactate Calcium Phosphorus 1.4 L Magnesium 2.2 Troponin I Procalcitonin Nasal Screen MRSA (PCR) 06/27/23 06/28/23 06/28/23 21:50 04:30 09:35 WBC 15.3 H RBC 3.80 L Hgb 12.1 Hct 37.4 MCV 98.4 D MCH 31.8 MCHC 32.4 RDW 18.4 H Plt Count 348 Neut % (Auto) 82.2 H Lymph % (Auto) 9.8 L [place] % (Auto) 6.7 Eos % (Auto) 0.1 L Baso % (Auto) 1.2 Neut # (Auto) 61484 H Lymph # (Auto) 1500 [place] # (Auto) 1000 H Eos # (Auto) 0 Baso # (Auto) 200 H ABG Sample Site ABG pH ABG pCO2 ABG pO2 ABG HCO3 ABG Total CO2 ABG O2 Saturation ABG Base Excess VBG pH VBG pCO2 VBG pO2 VBG HCO3 VBG Total CO2 VBG O2 Saturation VBG Base Excess FiO2 Sodium 142 145 Potassium 2.8 L D 3.4 Chloride 99 100 Carbon Dioxide 27 39 H BUN 46 H 51 H Creatinine 1.75 H 1.73 H Estimated GFR 33 L 33 L BUN/Creatinine Ratio 26.3 H 29.5 H Glucose 340 H D 127 H D Hemoglobin A1c Lactate Calcium 10.0 10.4 H Phosphorus 1.6 L Magnesium Troponin I 0.403 H* 0.448 H* Procalcitonin 0.28 Nasal Screen MRSA (PCR) 06/28/23 10:21 WBC RBC Hgb Hct MCV MCH MCHC RDW Plt Count Neut % (Auto) Lymph % (Auto) [place] % (Auto) Eos % (Auto) Baso % (Auto) Neut # (Auto) Lymph # (Auto) [place] # (Auto) Eos # (Auto) Baso # (Auto) ABG Sample Site ABG pH ABG pCO2 ABG pO2 ABG HCO3 ABG Total CO2 ABG O2 Saturation ABG Base Excess VBG pH 7.53 H VBG pCO2 43.2 L VBG pO2 27 L VBG HCO3 36 H VBG Total CO2 37 H VBG O2 Saturation 58 L VBG Base Excess 13.0 H FiO2 30 Sodium Potassium Chloride Carbon Dioxide BUN Creatinine Estimated GFR BUN/Creatinine Ratio Glucose Hemoglobin A1c Lactate Calcium Phosphorus Magnesium Troponin I Procalcitonin Nasal Screen MRSA (PCR) Exam Vital Signs (past 8 hours): - 06/28/23 05:00 06/28/23 05:01 06/28/23 05:01 Temperature Pulse Rate 69 68 Respiratory Rate 16 16 Blood Pressure 94/52 L Pulse Oximetry 94 94 Oxygen Delivery Method 06/28/23 05:15 06/28/23 05:30 06/28/23 05:30 Temperature Pulse Rate 82 67 Respiratory Rate 16 16 Blood Pressure 103/68 Pulse Oximetry 94 96 Oxygen Delivery Method 06/28/23 05:45 06/28/23 06:00 06/28/23 06:00 Temperature Pulse Rate 66 66 Respiratory Rate 16 16 Blood Pressure 108/73 Pulse Oximetry 96 98 Oxygen Delivery Method 06/28/23 06:15 06/28/23 06:30 06/28/23 06:30 Temperature Pulse Rate 68 67 Respiratory Rate 16 16 Blood Pressure 108/64 Pulse Oximetry 97 97 Oxygen Delivery Method 06/28/23 06:45 06/28/23 07:00 06/28/23 07:00 Temperature Pulse Rate 67 67 Respiratory Rate 16 16 Blood Pressure 107/66 Pulse Oximetry 97 96 Oxygen Delivery Method Mechanical Ventilation 06/28/23 08:00 06/28/23 08:45 06/28/23 09:00 Temperature 97.8 F Pulse Rate 74 81 Respiratory Rate 16 16 Blood Pressure 110/67 138/83 Pulse Oximetry 92 95 Oxygen Delivery Method 06/28/23 09:00 06/28/23 09:15 06/28/23 09:30 Temperature Pulse Rate 81 81 82 Respiratory Rate 16 16 18 Blood Pressure Pulse Oximetry 96 96 95 Oxygen Delivery Method 06/28/23 09:30 06/28/23 09:45 06/28/23 10:00 Temperature Pulse Rate 82 82 Respiratory Rate 18 18 Blood Pressure 133/77 Pulse Oximetry 96 96 Oxygen Delivery Method 06/28/23 10:00 06/28/23 10:15 06/28/23 10:30 Temperature Pulse Rate 81 81 Respiratory Rate 18 18 Blood Pressure 148/77 H Pulse Oximetry 96 96 Oxygen Delivery Method 06/28/23 10:30 06/28/23 10:45 06/28/23 10:50 Temperature Pulse Rate 81 81 Respiratory Rate 16 16 Blood Pressure 129/81 Pulse Oximetry 95 95 Oxygen Delivery Method 06/28/23 10:50 06/28/23 11:00 06/28/23 11:00 Temperature Pulse Rate 80 Respiratory Rate 16 Blood Pressure 124/80 128/78 Pulse Oximetry 94 Oxygen Delivery Method 06/28/23 11:15 06/28/23 11:15 06/28/23 11:30 Temperature Pulse Rate 70 81 Respiratory Rate 16 34 H Blood Pressure 125/70 Pulse Oximetry 94 Oxygen Delivery Method 06/28/23 11:31 06/28/23 11:31 06/28/23 11:45 Temperature Pulse Rate 71 80 Respiratory Rate 25 H 16 Blood Pressure 110/74 Pulse Oximetry 92 90 L Oxygen Delivery Method 06/28/23 11:45 06/28/23 12:00 06/28/23 12:00 Temperature Pulse Rate 81 Respiratory Rate 16 Blood Pressure 120/75 119/82 Pulse Oximetry 90 L Oxygen Delivery Method 06/28/23 12:15 06/28/23 12:15 Temperature Pulse Rate 80 Respiratory Rate 16 Blood Pressure 130/81 Pulse Oximetry 91 Oxygen Delivery Method Fraction of Inspired Oxygen 50 Oxygen Delivery Method Mechanical Ventilation Narrative Exam Narrative: intubated sedated synchronous with vent symmetric chest rise Quality TeleICU VTE Deep Vein Thrombosis/Pulmonary Embolism Present on Admission: No Assessment & Plan Assessment and plan (1) Respiratory failure: Qualifiers: Chronicity: acute Respiratory failure complication: hypoxia and hypercapnia Qualified Code(s): J96.01 - Acute respiratory failure with hypoxia; J96.02 - Acute respiratory failure with hypercapnia Status: Acute (2) Acute exacerbation of chronic obstructive airways disease: Status: Acute (3) UTI (urinary tract infection): Status: Acute (4) Pneumonia: Qualifiers: Laterality: left Lung location: lower lobe of lung Pneumonia type: due to unspecified organism Qualified Code(s): J18.9 - Pneumonia, unspecified organism Status: Acute (5) CHF (congestive heart failure): Status: Acute (6) DM2 (diabetes mellitus, type 2): Status: Acute (7) Acute on chronic kidney failure: Status: Acute (8) Acute hypercapnic respiratory failure: Status: Acute (9) Septic shock: Status: Acute Plan Acute hypoxic and hypercarbic respiratory failure - LLL opacity with effusion, on minimal vent settings, LLL PNA vs. CHF vs. COPD exacerbation, lungs clear currently - trend abg - LTVV - lasix for fluid removal - repeat ABG now - goal sat > 88% - start daily SBT in AM Septic vs. Cardiogenic shock - EF 15-20% at baseline - trend LA - SVO2 sent, but it is borderline for nay diagnosis, awaiting TTE - s/p lasix with moderate response - wean levo to keep MAP > 65 - MRSA, procal, urine and blood cultures pending - vanc and karen - levo at 6mcg without significant increase with diuresis - NPO - will consider ionotroped depending on TTE UTI - follow cultures, abx CHF - home ASA, statin BLANCA - basline likely 1.2-1.8, monitor UOP Sedation - add dex, wean prop - full daily SAT DM with hyperglycemia - no gap - insulin drip protocol, add 8 units of regular insulin - Q1 glucose PPx: SQH, pepcid, bedrest CCT 35 min Time Spent With Patient Time with patient: 50 to 69 minutes with 50% spent counseling/coordinating care
--- NOTE | 2023-06-28 13:32 | PC.NURSE ---
Target BGC range 80-[address] Alexis while on insulin drip
[2023-06-28] MEDS: propofoL 1,000 MG/100 ML VIAL 18.15 MG IV ×2 (14:06→18:15)
--- NOTE | 2023-06-28 14:49 | PM.PN.1 ---
Subjective Subjective Interval history: Patient still intubated and sedated. Required change to vasopressin overnight from levophed due to tachycardia. Now back on levophed. Troponin elevated so heparin drip started. Repeat echo pending. Exam Vital Signs (past 8 hours): - 06/28/23 07:00 06/28/23 07:00 06/28/23 08:00 Temperature 97.8 F Pulse Rate 67 74 Respiratory Rate 16 16 Blood Pressure 107/66 110/67 Pulse Oximetry 96 92 Oxygen Delivery Method Mechanical Ventilation 06/28/23 08:45 06/28/23 09:00 06/28/23 09:00 Temperature Pulse Rate 81 81 Respiratory Rate 16 16 Blood Pressure 138/83 Pulse Oximetry 95 96 Oxygen Delivery Method 06/28/23 09:15 06/28/23 09:30 06/28/23 09:30 Temperature Pulse Rate 81 82 Respiratory Rate 16 18 Blood Pressure 133/77 Pulse Oximetry 96 95 Oxygen Delivery Method 06/28/23 09:45 06/28/23 10:00 06/28/23 10:00 Temperature Pulse Rate 82 82 Respiratory Rate 18 18 Blood Pressure 148/77 H Pulse Oximetry 96 96 Oxygen Delivery Method 06/28/23 10:15 06/28/23 10:30 06/28/23 10:30 Temperature Pulse Rate 81 81 Respiratory Rate 18 18 Blood Pressure 129/81 Pulse Oximetry 96 96 Oxygen Delivery Method 06/28/23 10:45 06/28/23 10:50 06/28/23 10:50 Temperature Pulse Rate 81 81 Respiratory Rate 16 16 Blood Pressure 124/80 Pulse Oximetry 95 95 Oxygen Delivery Method 06/28/23 11:00 06/28/23 11:00 06/28/23 11:15 Temperature Pulse Rate 80 70 Respiratory Rate 16 16 Blood Pressure 128/78 Pulse Oximetry 94 94 Oxygen Delivery Method 06/28/23 11:15 06/28/23 11:30 06/28/23 11:31 Temperature Pulse Rate 81 71 Respiratory Rate 34 H 25 H Blood Pressure 125/70 Pulse Oximetry 92 Oxygen Delivery Method 06/28/23 11:31 06/28/23 11:45 06/28/23 11:45 Temperature Pulse Rate 80 Respiratory Rate 16 Blood Pressure 110/74 120/75 Pulse Oximetry 90 L Oxygen Delivery Method 06/28/23 12:00 06/28/23 12:00 06/28/23 12:15 Temperature Pulse Rate 81 80 Respiratory Rate 16 16 Blood Pressure 119/82 Pulse Oximetry 90 L 91 Oxygen Delivery Method 06/28/23 12:15 06/28/23 12:30 06/28/23 12:30 Temperature Pulse Rate 80 Respiratory Rate 16 Blood Pressure 130/81 126/83 Pulse Oximetry 91 Oxygen Delivery Method 06/28/23 12:45 06/28/23 12:45 06/28/23 13:00 Temperature Pulse Rate 73 68 Respiratory Rate 16 16 Blood Pressure 122/76 Pulse Oximetry 90 L 92 Oxygen Delivery Method 06/28/23 13:00 06/28/23 13:15 06/28/23 13:15 Temperature Pulse Rate 82 Respiratory Rate 16 Blood Pressure 120/75 119/91 H Pulse Oximetry 93 Oxygen Delivery Method 06/28/23 13:30 06/28/23 13:30 06/28/23 13:45 Temperature Pulse Rate 82 82 Respiratory Rate 16 16 Blood Pressure 126/84 Pulse Oximetry 93 93 Oxygen Delivery Method 06/28/23 13:45 06/28/23 14:00 06/28/23 14:00 Temperature Pulse Rate 83 Respiratory Rate 16 Blood Pressure 133/86 133/85 Pulse Oximetry 93 Oxygen Delivery Method 06/28/23 14:15 06/28/23 14:15 06/28/23 14:24 Temperature Pulse Rate 83 Respiratory Rate 16 Blood Pressure 141/89 H Pulse Oximetry 92 Oxygen Delivery Method Mechanical Ventilation Fraction of Inspired Oxygen 50 Oxygen Delivery Method Mechanical Ventilation Narrative Exam Narrative: GEN: Intubated and sedated, obese HEENT: moist mucous membranes, PERRL NECK: trachea midline, no JVD CV: regular rate and rhythm, no murmurs PULM: Coarse breath sounds bilaterally ABD: soft, nontender, nondistended, no organomegaly EXT: warm and well perfused with no edema NEURO: Unobtainable Objective Labs 06/28/23 04:30 06/28/23 04:30 Labs: Laboratory Results - last 24 hr 06/27/23 06/27/23 06/27/23 07:30 08:10 11:40 WBC RBC Hgb Hct MCV MCH MCHC RDW Plt Count Neut % (Auto) Lymph % (Auto) [place] % (Auto) Eos % (Auto) Baso % (Auto) Neut # (Auto) Lymph # (Auto) [place] # (Auto) Eos # (Auto) Baso # (Auto) ABG Sample Site ABG pH ABG pCO2 ABG pO2 ABG HCO3 ABG Total CO2 ABG O2 Saturation ABG Base Excess VBG pH Cancelled VBG pCO2 Cancelled VBG pO2 Cancelled VBG HCO3 Cancelled VBG Total CO2 Cancelled VBG O2 Saturation Cancelled VBG Base Excess Cancelled FiO2 Cancelled Sodium Potassium Chloride Carbon Dioxide BUN Creatinine Estimated GFR BUN/Creatinine Ratio Glucose Hemoglobin A1c 9.3 H Lactate Calcium Phosphorus Magnesium Troponin I Procalcitonin 0.18 Nasal Screen MRSA (PCR) 06/27/23 06/27/23 06/27/23 13:53 17:41 18:40 WBC RBC Hgb Hct MCV MCH MCHC RDW Plt Count Neut % (Auto) Lymph % (Auto) [place] % (Auto) Eos % (Auto) Baso % (Auto) Neut # (Auto) Lymph # (Auto) [place] # (Auto) Eos # (Auto) Baso # (Auto) ABG Sample Site Right radial ABG pH 7.38 ABG pCO2 58.8 H ABG pO2 92 ABG HCO3 35 H ABG Total CO2 36 H ABG O2 Saturation 97 ABG Base Excess 9.0 H VBG pH VBG pCO2 VBG pO2 VBG HCO3 VBG Total CO2 VBG O2 Saturation VBG Base Excess FiO2 45 Sodium Potassium Chloride Carbon Dioxide BUN Creatinine Estimated GFR BUN/Creatinine Ratio Glucose Hemoglobin A1c Lactate 1.9 Calcium Phosphorus Magnesium Troponin I Procalcitonin Nasal Screen MRSA (PCR) Detected H 06/27/23 06/27/23 06/27/23 19:30 19:38 20:07 WBC RBC Hgb Hct MCV MCH MCHC RDW Plt Count Neut % (Auto) Lymph % (Auto) [place] % (Auto) Eos % (Auto) Baso % (Auto) Neut # (Auto) Lymph # (Auto) [place] # (Auto) Eos # (Auto) Baso # (Auto) ABG Sample Site Left radial ABG pH 7.49 H ABG pCO2 31.6 L ABG pO2 80 ABG HCO3 24 ABG Total CO2 25 ABG O2 Saturation 97 ABG Base Excess 1.0 VBG pH 7.42 VBG pCO2 42.4 L VBG pO2 27 L VBG HCO3 27 VBG Total CO2 29 VBG O2 Saturation 52 L VBG Base Excess 3.0 FiO2 35 35 Sodium Potassium Chloride Carbon Dioxide BUN Creatinine Estimated GFR BUN/Creatinine Ratio Glucose Hemoglobin A1c Lactate Calcium Phosphorus 1.4 L Magnesium 2.2 Troponin I Procalcitonin Nasal Screen MRSA (PCR) 06/27/23 06/28/23 06/28/23 21:50 04:30 09:35 WBC 15.3 H RBC 3.80 L Hgb 12.1 Hct 37.4 MCV 98.4 D MCH 31.8 MCHC 32.4 RDW 18.4 H Plt Count 348 Neut % (Auto) 82.2 H Lymph % (Auto) 9.8 L [place] % (Auto) 6.7 Eos % (Auto) 0.1 L Baso % (Auto) 1.2 Neut # (Auto) 38756 H Lymph # (Auto) 1500 [place] # (Auto) 1000 H Eos # (Auto) 0 Baso # (Auto) 200 H ABG Sample Site ABG pH ABG pCO2 ABG pO2 ABG HCO3 ABG Total CO2 ABG O2 Saturation ABG Base Excess VBG pH VBG pCO2 VBG pO2 VBG HCO3 VBG Total CO2 VBG O2 Saturation VBG Base Excess FiO2 Sodium 142 145 Potassium 2.8 L D 3.4 Chloride 99 100 Carbon Dioxide 27 39 H BUN 46 H 51 H Creatinine 1.75 H 1.73 H Estimated GFR 33 L 33 L BUN/Creatinine Ratio 26.3 H 29.5 H Glucose 340 H D 127 H D Hemoglobin A1c Lactate Calcium 10.0 10.4 H Phosphorus 1.6 L Magnesium Troponin I 0.403 H* 0.448 H* Procalcitonin 0.28 Nasal Screen MRSA (PCR) 06/28/23 10:21 WBC RBC Hgb Hct MCV MCH MCHC RDW Plt Count Neut % (Auto) Lymph % (Auto) [place] % (Auto) Eos % (Auto) Baso % (Auto) Neut # (Auto) Lymph # (Auto) [place] # (Auto) Eos # (Auto) Baso # (Auto) ABG Sample Site ABG pH ABG pCO2 ABG pO2 ABG HCO3 ABG Total CO2 ABG O2 Saturation ABG Base Excess VBG pH 7.53 H VBG pCO2 43.2 L VBG pO2 27 L VBG HCO3 36 H VBG Total CO2 37 H VBG O2 Saturation 58 L VBG Base Excess 13.0 H FiO2 30 Sodium Potassium Chloride Carbon Dioxide BUN Creatinine Estimated GFR BUN/Creatinine Ratio Glucose Hemoglobin A1c Lactate Calcium Phosphorus Magnesium Troponin I Procalcitonin Nasal Screen MRSA (PCR) [facility] Medical History PONCE (obstructive sleep apnea) Chronic hypoxemic respiratory failure COPD (chronic obstructive pulmonary disease) DM2 (diabetes mellitus, type 2) HTN (hypertension) Thyroiditis Systolic and diastolic CHF, chronic Obesity Surgical History S/P hernia surgery Family History Mother No pertinent past medical history Father No pertinent past medical history Social History household members: other Smoking Status: Former smoker alcohol intake: former Assessment & Plan Assessment & Plan narrative: # septic vs cardiogenic shock -BP down to 51/32 in ED requiring levophed -source unclear, PNA vs UTI as UA has pyuria and CXR has possible LLL infiltrate, procal 0.18 will trend -will use meropenem to cover for ESBL and pseudomonas as she has h/o of this in urine, plus vanc -BNP 14k, last EF 20-25% in Jan 2023, recheck echo -Levophed started in ED, will continue for now -wean pressors as able -appreciate tele ICU consult -urine culture with very early growth -blood cultures with NG at 24 hours # acute on chronic hypoxic and hypercapnic respiratory failure -at home on 2L O2 baseline -satting 60% by EMS -required Bipap in ED, then intubated due to worsening hypercapnea -solumedrol 60mg IV BID for possible COPD exac # BLANCA on CKD -creatinine 1.81 and baseline 1.3 -s/p 1L bolus in ED -monitor and renally dose meds # COPD -continue nebs prn # DM2, POA and stable -insulin drip while on IV steroids -goal 70-180 BG # HFrEF -last EF 30-35%, unclear if in cardiogenic shock as BNP only 2200 and previously 22k -repeat echo ordered and pending # morbid obesity, POA. I spent a total of 35 minutes of critical care time on this patient's care today; this time is exclusive of procedural time. Code status is full code. DVT prophylaxis with heparin subcutaneous. Proxy is daughter Roxy. I have reviewed home meds and used all available resources to reconcile the home meds. Dispo: ICU Quality VTE Deep Vein Thrombosis/Pulmonary Embolism Present on Admission: No
[2023-06-28 15:17] LABS: PTT Partial Thromboplastin Tim 52 SECONDS (25.1-36.5)
[2023-06-28 15:50] LABS: Troponin I 0.537 ng/mL (0.01-0.034)
[2023-06-28] MEDS: INSULIN REGULAR 100 UNIT/ML 3 ML VIAL SUBCUT ×2 (17:01→23:26)
[2023-06-28] MEDS: ATORVASTATIN 20 MG TABLET 80 MG PO (20:13)
--- NOTE | 2023-06-28 20:51 | PM.ICURNDS ---
- :: This patient was seen via real time interactive two-way audiovisual telecommunication. remians intubated/sedated, now off vasopressin. TTE reviewed, no signifcant change form previous TTE. ? septic given imrovmenet thus far will hold off ionotropes for now. inuslin increased to high dose
[2023-06-28 21:19] LABS: PTT Partial Thromboplastin Tim 49 SECONDS (25.1-36.5)
[2023-06-29] VITALS (107 sets, daily range): BP systolic 99–146; BP diastolic 53–85; PULSE 64–91; RESP 16–20; TEMP 37.3–37.6; O2SAT 88–99
[2023-06-29] MEDS: propofoL 1,000 MG/100 ML VIAL 18.15 MG IV ×2 (00:11→04:27)
[2023-06-29] MEDS: dexmedeTOMIDine in 0.9 % NaCL 400 MCG/100 ML PLAST..BAG 11.95 MCG IV ×3 (02:15→18:43)
[2023-06-29] MEDS: ALBUTEROL/IPRATROPIUM 3 ML AMPUL INH ×6 (02:21→22:04)
[2023-06-29 04:30] LABS: Add Manual Diff / Slide Review NO; Basophils Absolute Auto 100 /uL (0-100); Basophils Percent Auto 0.6 % (0-2); Eosinophils Absolute Auto 0 /uL (0-450); Hematocrit 35.2 % (36-46); Hemoglobin 11.4 g/dL (12.0-16.0); Lymphocytes Absolute Auto 1100 /uL (1100-4500); Mean Corpuscular HGB Conc 32.3 % (30-36); Mean Corpuscular Hemoglobin 32.1 PG (26-34); Mean Corpuscular Volume 99.2 fL (80-100); Monocytes Absolute Auto 900 /uL (0-900); Monocytes Percent Auto 6.8 % (3-14); Neutrophils Absolute Auto 11400 /uL (1500-7000); Neutrophils Percent Auto 84.6 % (50-75); Platelet Count 214 X10^3/uL (150-400); Red Blood Cell Count 3.55 X10^6/uL (4.0-5.2); Red Cell Distribution Width 19.4 % (11.6-14.8); White Blood Cell Count 13.5 X10^3/uL (4.5-11.0)
[2023-06-29 04:57] LABS: PTT Partial Thromboplastin Tim 48 SECONDS (25.1-36.5)
[2023-06-29 05:05] LABS: BUN Creatinine Ratio 29.4 (6-22); Blood Urea Nitrogen 47 mg/dL (7-17); Calcium 9.2 mg/dL (8.4-10.2); Carbon Dioxide 31 mmol/L (22-32); Chloride 104 mmol/L (98-107); Estimated Glomerular Filt Rate 36 mL/min (>60); Glucose 363 mg/dL (80-110); HEMOLYSIS < 15 (0-50); Potassium 3.6 mmol/L (3.4-5.1); Sodium 143 mmol/L (137-145)
[2023-06-29] MEDS: MEROPENEM 2 GM in SODIUM CHLORIDE 0.9% 100 ML IV ×2 (05:11→17:25)
[2023-06-29] MEDS: LEVOTHYROXINE 100 MCG TABLET PO (05:11)
[2023-06-29] MEDS: LEVOTHYROXINE 75 MCG TABLET PO (05:11)
[2023-06-29] MEDS: methylPREDNISolone 125 MG/2 ML VIAL 60 MG IV ×2 (05:11→17:25)
[2023-06-29 05:24] LABS: Procalcitonin 0.28 ng/mL (<0.5)
[2023-06-29] MEDS: INSULIN REGULAR 100 UNIT/ML 3 ML VIAL SUBCUT (05:31)
[2023-06-29] MEDS: NOREPINEPHRINE BITARTRATE/D5W 4 MG/250 ML PLAST..BAG 3.7 MG IV (06:27)
[2023-06-29] MEDS: FAMOTIDINE 20 MG/2 ML VIAL IV (08:13)
[2023-06-29] MEDS: ASPIRIN EC 81 MG TABLET PO (08:13)
[2023-06-29] MEDS: CHLORHEXIDINE GLUCONATE 15 ML CUP PO ×2 (08:13→21:38)
[2023-06-29] MEDS: VANCOMYCIN 1,250 MG/250 ML PIGGYBACK 250 MG IV (09:15)
[2023-06-29] MEDS: HEPARIN DRIP 25,000 UNIT/500 ML IV.SOLN 19.837 UNIT IV (09:35)
[2023-06-29] MEDS: INSULIN LISPRO 100 UNIT/ML 3ML VIAL SUBCUT ×3 (10:39→23:58)
[2023-06-29] MEDS: INSULIN GLARGINE 100 UNIT/ML 3ML PEN 20 UNIT SUBCUT ×2 (10:39→21:37)
--- NOTE | 2023-06-29 10:54 | DIET.CONS ---
Dietary Consultation Note Admission Date: 06/27/2023 13:25 Assessment: 62 y F presenting with dyspnea and requiring intubation. Nutrition screened for nutrition support. Recc enternal nutrition adjustment of goal rate based on nutrition needs and propofol. Ht: 157.48 cm Wt: 119.2 kg BMI: 48.2 UBW: - Last BM: () MNA: Matt Score: 15 Diet: 06/27/23 16:42 NPO Diet Diet Modifications: NPO Type: Strict 06/29/23 Lunch Tube Feeding Diet Diet Modifications: TF Supplement type: Glucerna 1.5 ashley TF mode of delivery: Continuous Starting flow rate mL/hr: 20 Flow rate goal mL/hr: 50 Titration Schedule to reach Goal Rate: increase by 1- cc every 8 hrs Max total daily volume in mL: 1,200 Free fluid: 200 Free Water Frequency: Q6H Nutrition Percent Meal Consumed pt is NPO 06/27/23 18:00 Labs: RBC 3.55 X10^6/uL (4.0-5.2) L 06/29/23 04:15 Hgb 11.4 g/dL (12.0-16.0) L 06/29/23 04:15 Hct 35.2 % (36-46) L 06/29/23 04:15 Creatinine 1.60 mg/dL (0.52-1.04) H 06/29/23 04:15 Hemoglobin A1c 9.3 % (4.0-6.0) H 06/27/23 07:30 Lactate 1.9 mmol/L (0.7-2.1) 06/27/23 18:40 NT-Pro-B Natriuret Pep 78615 pg/mL (<125) H 06/27/23 08:10 Nutrition Diagnosis: Inadequate oral intake r/t pt is intubated as evidenced by NPO status Interventions: 1. Recc enteral nutrition of Glucerna 1.5 starting at 20 mL/h. Rate may be advanced 10-20 mL q6-8h as tolerated. Goal feeding is continuous enteral feeding of Glucerna 1.5 running at 40 mL/hr providing 1720 kcals with propofol at 15 mcg/kg/min, 79 g protein, 128 g CHO, 729 mL feed water. Fluids to be managed by tele-ICU hospitalist. EER: 1237-7019 kcals/day (12-14 kcals/kg ABW due to critical care, individual with obesity) 70-80 g protein/day (1.0 g/kg of adjusted IBW due to BLANCA on CKD) Monitoring/Evaluations: TF tolerance, rate advancement, propofol rate Electronically Signed by: Mary Lou Valente 06/29/23 10:54 Clinical Dietitian [address] [id number]
[2023-06-29] MEDS: propofoL 1,000 MG/100 ML VIAL 10.89 MG IV ×2 (10:56→18:39)
--- NOTE | 2023-06-29 13:09 | CM.DPC ---
DCP Cont. Reviewed EMR and team rounds for status updates. Pt remains intubated, Dr. Alexis suspects sepsis due to UTI. They will attempt a breathing trail today in order to extubate if possible. Will continue to monitor for home d/c needs.
--- NOTE | 2023-06-29 13:48 | P.TELICUPN_ITS ---
Subjective Subjective IF CAMERA ACTIVATED, patient seen via real-time interactive audiovisual communication: Camera activated Consent obtained for tele-health data analyst care: Yes Patient Location: ICU Provider location (State): [place] Other participants/roles: rn Interval history: pt remains intubated, off pressors this AM, but her mental status is poor Current Medications Current Medications Medications: Home Medications acetaminophen 325 mg tablet (Tylenol) 650 mg PO TID 05/25/22 [History Confirmed 06/27/23] aspirin 81 mg tablet,delayed release 81 mg PO DAILY 05/25/22 [History Confirmed 06/27/23] budesonide-formoterol HFA 160 mcg-4.5 mcg/actuation aerosol inhaler 2 puff inhalation Q4H PRN Wheezing 05/25/22 [History Confirmed 06/27/23] bupropion HCl 150 mg tablet,12 hr sustained-release 150 mg PO BEDTIME 05/25/22 [History Confirmed 06/27/23] carvedilol 3.125 mg tablet 3.125 mg PO BID 05/25/22 [History Confirmed 06/27/23] cyanocobalamin (vitamin B-12) 500 mcg tablet 500 mcg PO DAILY 05/25/22 [History Confirmed 06/27/23] fenofibrate 160 mg tablet 160 mg PO DAILY 05/25/22 [History Confirmed 06/27/23] fluoxetine 20 mg tablet 20 mg PO DAILY 05/25/22 [History Confirmed 06/27/23] fluticasone propionate 50 mcg/actuation nasal spray,suspension 2 spray intranasal DAILY 05/25/22 [History Confirmed 06/27/23] gabapentin 300 mg capsule 300 mg PO BEDTIME 05/25/22 [History Confirmed 06/27/23] insulin glargine 100 unit/mL (3 mL) subcutaneous pen 22 unit SUBCUT BID 05/25/22 [History Confirmed 06/27/23] insulin lispro 100 unit/mL subcutaneous solution (Humalog U-100 Insulin) See Protocol SUBCUT TIDWM 05/25/22 [History Confirmed 06/27/23] loratadine 10 mg tablet 10 mg PO DAILY 05/25/22 [History Confirmed 06/27/23] magnesium oxide 200 mg PO DAILY 05/25/22 [History Confirmed 06/27/23] meclizine 25 mg tablet 25 mg PO Q8HR PRN Dizziness 05/25/22 [History Confirmed 06/27/23] montelukast 10 mg tablet 10 mg PO DAILY 05/25/22 [History Confirmed 06/27/23] nystatin 100,000 unit/gram topical powder 1 applic topical BID PRN Rash 05/25/22 [History Confirmed 06/27/23] ondansetron 4 mg disintegrating tablet 4 mg PO Q8H PRN Nausea 05/25/22 [History Confirmed 06/27/23] rosuvastatin 40 mg tablet 40 mg PO DAILY 05/25/22 [History Confirmed 06/27/23] sennosides 8.6 mg tablet (senna) 17.2 mg PO BEDTIME 05/25/22 [History Confirmed 06/27/23] tiotropium bromide 18 mcg capsule with inhalation device (Spiriva with HandiHaler) 1 cap inhalation DAILY 05/25/22 [History Confirmed 06/27/23] trazodone 50 mg tablet 25 mg PO BEDTIME 05/25/22 [History Confirmed 06/27/23] albuterol sulfate 90 mcg/actuation aerosol inhaler 4 puff inhalation Q4H PRN Shortness Of Breath Or Wheezing 08/15/22 [History Confirmed 06/27/23] levothyroxine 175 mcg tablet 175 mcg PO DAILY 08/15/22 [History Confirmed 06/27/23] potassium chloride 10 mEq tablet,extended release 20 meq PO DAILY 08/15/22 [History Confirmed 06/27/23] midodrine 5 mg tablet 10 mg PO BID 05/20/23 [History Confirmed 06/27/23] torsemide 20 mg DAILY 05/20/23 [History Confirmed 06/27/23] torsemide 10 mg tablet 10 mg PO BEDTIME 05/20/23 [History Confirmed 06/27/23] Visit Medications (administered) Generic Name Dose Route Start Last Admin Trade Name Freq PRN Reason Stop Dose Admin Albuterol/Ipratropium 3 ml 06/27/23 19:00 06/29/23 09:22 Albuterol/Ipratropium 3 Ml Ampul INH 3 ml [id number] JAY JAY Administration Aspirin 81 mg 06/28/23 09:00 06/29/23 08:13 Aspirin Ec 81 Mg Tablet PO 81 mg DAILY JAY JAY Administration Atorvastatin Calcium 80 mg 06/27/23 21:00 06/28/23 20:13 Atorvastatin 20 Mg Tablet PO 80 mg BEDTIME JAY JAY Administration Chlorhexidine Gluconate 15 ml 06/27/23 21:00 06/29/23 08:13 Chlorhexidine Gluconate 15 Ml Cup PO 15 ml BID JAY JAY Administration Famotidine 20 mg 06/29/23 09:00 06/29/23 08:13 Famotidine 20 Mg/2 Ml Vial IV 20 mg DAILY JAY JAY Administration Fentanyl 50 mcg 06/27/23 12:17 06/27/23 16:21 Fentanyl 100 Mcg/2 Ml Inj IV 50 mcg Q30M PRN Administration Pain, Severe (7-10) Propofol 1,000 mg in 100 mls @ 7.26 mls/hr 06/27/23 12:30 06/29/23 10:56 Propofol IV 15 mcg/kg/min TITRATE JAY JAY 10.89 mls/hr Administration Protocol 10 MCG/KG/MIN NOREPINEPHRINE BITARTRATE/D5W 4 mg in 250 mls @ 45.375 mls/hr 06/27/23 13:45 06/29/23 06:30 Levophed IV 0 mcg/kg/min TITRATE JAY JAY 0 mls/hr Titration Protocol 0.1 MCG/KG/MIN Meropenem 2 gm/ Sodium 100 mls @ 200 mls/hr 06/27/23 17:00 06/29/23 05:11 Chloride IV 200 mls/hr Q12H JAY JAY Administration INSULIN DRIP PREMIX 100 unit in 100 mls @ 6 mls/hr 06/27/23 17:00 06/28/23 12:00 Myxredlin Drip Premix IV 0 mls/hr TITRATE JAY JAY 0 mls/hr Titration Protocol dexmedeTOMIDine in 0.9 % NaCL 400 mcg in 100 mls @ 5.975 mls/hr 06/27/23 19:30 06/29/23 10:55 Precedex IV 0.4 mcg/kg/hr TITRATE JAY JAY 11.95 mls/hr Administration Protocol 0.2 MCG/KG/HR Heparin Sodium/Dextrose 25,000 unit in 500 mls @ 28.68 mls/hr 06/28/23 08:00 06/29/23 09:35 Heparin Drip IV 8.3 units/kg/hr CONT JAY JAY 19.837 mls/hr Administration Protocol 12 UNITS/KG/HR Vancomycin HCl 1,250 mg in 250 mls @ 250 mls/hr 06/28/23 10:00 06/29/23 09:15 Vancomycin IV 250 mls/hr Q24H JAY JAY Administration Insulin Glargine 20 unit 06/29/23 10:22 06/29/23 10:39 Insulin Glargine 100 Unit/Ml 3ml Pen SUBCUT 20 unit BEDTIME JAY JAY Administration Insulin Human Lispro 0 unit 06/29/23 10:30 06/29/23 10:39 Insulin Lispro 100 Unit/Ml 3ml Vial SUBCUT 10 unit Q6H JAY JAY Administration Protocol Levothyroxine Sodium 75 mcg 06/28/23 06:00 06/29/23 05:11 Levothyroxine 75 Mcg Tablet PO 75 mcg DAILY@0600 JAY JAY Administration Levothyroxine Sodium 100 mcg 06/28/23 06:00 06/29/23 05:11 Levothyroxine 100 Mcg Tablet PO 100 mcg DAILY@0600 JAY JAY Administration Methylprednisolone 60 mg 06/27/23 17:00 06/29/23 05:11 Methylprednisolone 125 Mg/2 Ml Vial IV 60 mg Q12H JAY JAY Administration Objective Ventilator Parameters: Ventilator Settings FiO2 40 RT Vent Frequency 16 Ventilator Tidal Volume 370 Exhaled Vt/kg IBW 6.5 Positive End Expiratory 7 Pressure Inspiratory Phase Time 0.95 I:E Ratio 1:2.9 Patient Position HOB >= 30 degrees Labs 06/29/23 04:15 06/29/23 04:15 Labs: Laboratory Results - last 24 hr 06/27/23 06/28/23 06/28/23 08:07 14:45 15:00 WBC RBC Hgb Hct MCV MCH MCHC RDW Plt Count Neut % (Auto) Lymph % (Auto) [place] % (Auto) Eos % (Auto) Baso % (Auto) Neut # (Auto) Lymph # (Auto) [place] # (Auto) Eos # (Auto) Baso # (Auto) APTT 52 H Sodium Potassium Chloride Carbon Dioxide BUN Creatinine Estimated GFR BUN/Creatinine Ratio Glucose Calcium Phosphorus Troponin I 0.537 H* Procalcitonin Urine Color Yellow Urine Appearance Cloudy Urine pH 5.5 Ur Specific [place] 1.025 Urine Protein 1+ H Urine Glucose (UA) 1+ H Urine Ketones Negative Urine Occult Blood 2+ H Urine Nitrate Negative Urine Bilirubin Negative Urine Urobilinogen 0.2 Ur Leukocyte Esterase 3+ H Urine RBC None seen Urine WBC 30-100/hpf H Ur Squamous Epith Cells None seen Urine Bacteria Many (>30) H Ur Culture Indicated? Specimen cultured Vol Urine Centrifuged 10ml (spun) 06/28/23 06/29/23 20:39 04:15 WBC 13.5 H RBC 3.55 L Hgb 11.4 L Hct 35.2 L MCV 99.2 MCH 32.1 MCHC 32.3 RDW 19.4 H Plt Count 214 Neut % (Auto) 84.6 H Lymph % (Auto) 8.0 L [place] % (Auto) 6.8 Eos % (Auto) 0.0 L Baso % (Auto) 0.6 Neut # (Auto) 14594 H Lymph # (Auto) 1100 [place] # (Auto) 900 Eos # (Auto) 0 Baso # (Auto) 100 APTT 49 H 48 H Sodium 143 Potassium 3.6 Chloride 104 Carbon Dioxide 31 BUN 47 H Creatinine 1.60 H Estimated GFR 36 L BUN/Creatinine Ratio 29.4 H Glucose 363 H D Calcium 9.2 Phosphorus 4.0 D Troponin I 0.350 H* Procalcitonin 0.28 Urine Color Urine Appearance Urine pH Ur Specific [place] Urine Protein Urine Glucose (UA) Urine Ketones Urine Occult Blood Urine Nitrate Urine Bilirubin Urine Urobilinogen Ur Leukocyte Esterase Urine RBC Urine WBC Ur Squamous Epith Cells Urine Bacteria Ur Culture Indicated? Vol Urine Centrifuged Exam Vital Signs (past 8 hours): - 06/29/23 06:00 06/29/23 06:00 06/29/23 06:15 Temperature Pulse Rate 85 65 Respiratory Rate 16 16 Blood Pressure 136/70 Pulse Oximetry 91 89 L Oxygen Delivery Method 06/29/23 06:15 06/29/23 06:30 06/29/23 06:30 Temperature Pulse Rate 85 Respiratory Rate 16 Blood Pressure 112/57 L 108/61 Pulse Oximetry 89 L Oxygen Delivery Method 06/29/23 06:45 06/29/23 06:45 06/29/23 07:00 Temperature Pulse Rate 86 86 Respiratory Rate 16 16 Blood Pressure 106/63 Pulse Oximetry 89 L 89 L Oxygen Delivery Method 06/29/23 07:00 06/29/23 07:15 06/29/23 07:15 Temperature Pulse Rate 69 Respiratory Rate 16 Blood Pressure 108/66 113/61 Pulse Oximetry 89 L Oxygen Delivery Method 06/29/23 07:30 06/29/23 07:30 06/29/23 07:45 Temperature Pulse Rate 86 86 Respiratory Rate 16 17 Blood Pressure 112/69 Pulse Oximetry 89 L 89 L Oxygen Delivery Method 06/29/23 07:45 06/29/23 08:00 06/29/23 08:00 Temperature Pulse Rate 68 Respiratory Rate 16 Blood Pressure 116/73 Pulse Oximetry 88 L Oxygen Delivery Method Mechanical Ventilation 06/29/23 08:00 06/29/23 08:15 06/29/23 08:15 Temperature Pulse Rate 85 Respiratory Rate 17 Blood Pressure 117/72 118/76 Pulse Oximetry 88 L Oxygen Delivery Method 06/29/23 08:30 06/29/23 08:30 06/29/23 08:46 Temperature Pulse Rate 85 67 Respiratory Rate 17 17 Blood Pressure 118/73 Pulse Oximetry 89 L 89 L Oxygen Delivery Method 06/29/23 08:46 06/29/23 09:00 06/29/23 09:00 Temperature Pulse Rate 85 Respiratory Rate 16 Blood Pressure 127/66 126/74 Pulse Oximetry 89 L Oxygen Delivery Method 06/29/23 09:15 06/29/23 09:15 06/29/23 09:30 Temperature Pulse Rate 72 86 Respiratory Rate 16 16 Blood Pressure 137/67 Pulse Oximetry 89 L 91 Oxygen Delivery Method 06/29/23 09:30 06/29/23 09:45 06/29/23 09:45 Temperature Pulse Rate 86 Respiratory Rate 17 Blood Pressure 132/65 118/73 Pulse Oximetry 92 Oxygen Delivery Method 06/29/23 10:00 06/29/23 10:00 06/29/23 10:15 Temperature Pulse Rate 86 Respiratory Rate 17 Blood Pressure 146/85 H 135/72 Pulse Oximetry 91 Oxygen Delivery Method 06/29/23 10:15 06/29/23 10:30 06/29/23 10:30 Temperature Pulse Rate 86 86 Respiratory Rate 17 18 Blood Pressure 123/69 Pulse Oximetry 91 91 Oxygen Delivery Method 06/29/23 10:45 06/29/23 10:45 06/29/23 11:00 Temperature Pulse Rate 86 79 Respiratory Rate 17 18 Blood Pressure 128/73 Pulse Oximetry 90 L 91 Oxygen Delivery Method 06/29/23 11:00 06/29/23 11:15 06/29/23 11:15 Temperature Pulse Rate 69 Respiratory Rate 16 Blood Pressure 129/69 120/60 Pulse Oximetry 90 L Oxygen Delivery Method 06/29/23 11:30 06/29/23 11:30 06/29/23 11:45 Temperature Pulse Rate 69 86 Respiratory Rate 18 18 Blood Pressure 128/71 Pulse Oximetry 90 L 90 L Oxygen Delivery Method 06/29/23 11:45 06/29/23 12:00 06/29/23 12:00 Temperature Pulse Rate 68 Respiratory Rate 17 Blood Pressure 135/71 133/64 Pulse Oximetry 91 Oxygen Delivery Method 06/29/23 12:00 06/29/23 12:15 06/29/23 12:15 Temperature Pulse Rate 86 Respiratory Rate 17 Blood Pressure 134/73 Pulse Oximetry 91 Oxygen Delivery Method Mechanical Ventilation 06/29/23 12:30 06/29/23 12:30 06/29/23 12:45 Temperature Pulse Rate 67 67 Respiratory Rate 17 16 Blood Pressure 132/70 Pulse Oximetry 91 91 Oxygen Delivery Method 06/29/23 12:45 06/29/23 13:00 06/29/23 13:00 Temperature 99.1 F Pulse Rate 85 Respiratory Rate 17 Blood Pressure 126/78 129/77 Pulse Oximetry 91 Oxygen Delivery Method Fraction of Inspired Oxygen 50 Oxygen Delivery Method Mechanical Ventilation Narrative Exam Narrative: intubated sedated synchornous with vent rate controled Quality TeleICU VTE Deep Vein Thrombosis/Pulmonary Embolism Present on Admission: No Assessment & Plan Assessment and plan (1) Respiratory failure: Qualifiers: Chronicity: acute Respiratory failure complication: hypoxia and hypercapnia Qualified Code(s): J96.01 - Acute respiratory failure with hypoxia; J96.02 - Acute respiratory failure with hypercapnia Status: Acute (2) Acute exacerbation of chronic obstructive airways disease: Status: Acute (3) UTI (urinary tract infection): Status: Acute (4) Pneumonia: Qualifiers: Laterality: left Lung location: lower lobe of lung Pneumonia type: due to unspecified organism Qualified Code(s): J18.9 - Pneumonia, unspecified organism Status: Acute (5) CHF (congestive heart failure): Status: Acute (6) DM2 (diabetes mellitus, type 2): Status: Acute (7) Acute on chronic kidney failure: Status: Acute (8) Acute hypercapnic respiratory failure: Status: Acute (9) Septic shock: Status: Acute Plan Acute hypoxic and hypercarbic respiratory failure - LLL opacity with effusion, on minimal vent settings, LLL PNA vs. CHF vs. COPD exacerbation, lungs clear currently - trend abg - LTVV - lasix for fluid removal - repeat ABG now - goal sat > 88% - start daily SBT in AM Septic shock - trend LA - s/p lasix with moderate response - wean levo to keep MAP > 65 - MRSA, procal, urine and blood cultures pending - vanc and karen - TTE aporecaite,d no signifcant change form last echo, given imrpovement this is likel septic UTI - follow cultures, abx CHF - home ASA, statin BLANCA - basline likely 1.2-1.8, monitor UOP Sedation - add dex, wean prop - full daily SAT DM with hyperglycemia - no gap - insulin basal bolus FEN - TF startted PPx: SQH, pepcid, bedrest CCT 35 min Time Spent With Patient Time with patient: 50 to 69 minutes with 50% spent counseling/coordinating care
--- NOTE | 2023-06-29 15:14 | CM.DANOTE ---
Initial DCP Assessment Visit Note Reviewed EMR and team rounds for pt's medical status and updates. Pt is intubated, this HEAD SHIPPER was able to obtain prior hx from EMR and nursing staff as pt has had multiple hospitalizations here at . She resides at [facility] as a long-term resident, plan is for her to return there once she's medically stable. Payor: [facility] [employer] PCP: Facility Provider Pt is a 62 year-old F who presented to the ED last evening from [facility] after she was desatting after using her CPAP. She had been admitted last month for similar issues. She received Duoneb tx by EMS en route to the ED. She ultimately did better once she was placed on the bipap. Pt was then started on IV ABO's for sepsis secondary to UTI, required intubation for decreased respiratory function. Plan is to continue IV ABO's, de-extubate once pt is more stable. Continue to monitor for return to [facility]. Discharge Planning/Care Management CM Discharge Assessment Start: 06/29/23 15:09 Freq: Status: Active Protocol: Document 06/29/23 15:09 DPL (Rec: 06/29/23 15:13 DPL [email or web address]) Discharge Planning Assessment Assigned Construction Specialist GA Chavez Advance Directives? No History Provided By Medical Record Has Patient been admitted in last 30 No days? Comment last admission was 05/20-05/22/23 Prior Living Arrangements Assisted Living Comment Pt has been at [facility] for the last 5-days following her last COPD exacerbation. Household Members other Type of transporation used prior to Relies on Others admit Independent with ADL's No Is patient alert and oriented? No: Pt is intubated and sedated. Needs Assistance With Bathing,Grooming,Toileting, Managing Medications,Home Chores / Shopping Community Services used prior to Physical Therapy,Home Health admission: Aid DME Already Rented / Owned Bath Bench,Wheelchair,FWW / Walker,Oxygen Patient/Family Preference [facility] Facility Comment Will return to [facility]. 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 # of Construction Specialist Review Status In Process Please Provide Date Initial DC 04/11/24 Assessment Was Performed
--- NOTE | 2023-06-29 18:01 | PM.PN.1 ---
Subjective Subjective Interval history: Patient still intubated but weaned off pressors. Unable to do SBT today due to not following commands. Exam Vital Signs (past 8 hours): - 06/27/23 10:45 06/27/23 11:00 06/27/23 11:00 Temperature Pulse Rate 89 87 Respiratory Rate 20 22 Blood Pressure 123/65 Pulse Oximetry 93 91 Oxygen Delivery Method 06/27/23 11:15 06/27/23 11:21 06/27/23 11:21 Temperature Pulse Rate 86 86 Respiratory Rate 24 19 Blood Pressure 125/60 Pulse Oximetry 90 L 91 Oxygen Delivery Method 06/27/23 11:30 06/27/23 11:40 06/27/23 11:40 Temperature Pulse Rate 86 86 Respiratory Rate 21 16 Blood Pressure 119/62 Pulse Oximetry 91 93 Oxygen Delivery Method BiPAP 06/27/23 11:45 06/27/23 12:00 06/27/23 12:00 Temperature Pulse Rate 85 85 Respiratory Rate 21 24 Blood Pressure 104/64 Pulse Oximetry 93 93 Oxygen Delivery Method BiPAP BiPAP 06/27/23 12:05 06/27/23 12:05 06/27/23 12:15 Temperature Pulse Rate 86 86 Respiratory Rate 27 H 20 Blood Pressure 109/59 L Pulse Oximetry 94 94 Oxygen Delivery Method BiPAP BiPAP 06/27/23 12:20 06/27/23 12:20 06/27/23 12:30 Temperature Pulse Rate 86 86 Respiratory Rate 20 20 Blood Pressure 109/60 Pulse Oximetry 95 95 Oxygen Delivery Method BiPAP BiPAP 06/27/23 12:40 06/27/23 12:40 06/27/23 12:45 Temperature Pulse Rate 86 86 Respiratory Rate 19 18 Blood Pressure 115/64 Pulse Oximetry 96 95 Oxygen Delivery Method BiPAP BiPAP 06/27/23 13:00 06/27/23 13:00 06/27/23 13:03 Temperature Pulse Rate 81 71 Respiratory Rate 17 18 Blood Pressure 128/87 Pulse Oximetry 98 Oxygen Delivery Method Mechanical Ventilation 06/27/23 13:03 06/27/23 13:15 06/27/23 13:30 Temperature Pulse Rate 81 74 74 Respiratory Rate 9 L 16 16 Blood Pressure Pulse Oximetry 99 97 91 Oxygen Delivery Method 06/27/23 13:32 06/27/23 13:32 06/27/23 13:35 Temperature Pulse Rate 73 72 Respiratory Rate 18 18 Blood Pressure 47/28 L Pulse Oximetry 99 100 Oxygen Delivery Method 06/27/23 13:35 06/27/23 13:37 06/27/23 13:37 Temperature Pulse Rate 84 Respiratory Rate 18 Blood Pressure 53/32 L 51/32 L Pulse Oximetry 98 Oxygen Delivery Method 06/27/23 13:39 06/27/23 13:39 06/27/23 13:40 Temperature Pulse Rate 76 Respiratory Rate 18 Blood Pressure 118/68 117/64 Pulse Oximetry 94 Oxygen Delivery Method 06/27/23 13:40 06/27/23 13:42 06/27/23 13:42 Temperature Pulse Rate 77 75 Respiratory Rate 18 18 Blood Pressure 111/66 Pulse Oximetry 92 96 Oxygen Delivery Method 06/27/23 13:44 06/27/23 13:44 06/27/23 13:45 Temperature Pulse Rate 74 74 Respiratory Rate 18 18 Blood Pressure 113/68 Pulse Oximetry 98 99 Oxygen Delivery Method 06/27/23 13:46 06/27/23 13:46 06/27/23 14:18 Temperature Pulse Rate 74 76 Respiratory Rate 18 18 Blood Pressure 120/69 Pulse Oximetry 98 96 Oxygen Delivery Method Mechanical Ventilation 06/27/23 14:20 06/27/23 14:20 06/27/23 14:22 Temperature Pulse Rate 76 Respiratory Rate 18 Blood Pressure 138/79 126/82 Pulse Oximetry 96 Oxygen Delivery Method 06/27/23 14:22 06/27/23 14:24 06/27/23 14:24 Temperature Pulse Rate 75 76 Respiratory Rate 18 18 Blood Pressure 127/78 Pulse Oximetry 96 96 Oxygen Delivery Method 06/27/23 14:26 06/27/23 14:26 06/27/23 14:28 Temperature Pulse Rate 76 Respiratory Rate 18 Blood Pressure 128/77 126/77 Pulse Oximetry 96 Oxygen Delivery Method 06/27/23 14:28 06/27/23 14:30 06/27/23 14:30 Temperature Pulse Rate 76 76 Respiratory Rate 18 18 Blood Pressure 130/71 Pulse Oximetry 96 96 Oxygen Delivery Method 06/27/23 14:32 06/27/23 14:32 06/27/23 14:34 Temperature Pulse Rate 76 Respiratory Rate 18 Blood Pressure 133/66 130/74 Pulse Oximetry 96 Oxygen Delivery Method 06/27/23 14:34 06/27/23 14:36 06/27/23 14:36 Temperature Pulse Rate 76 75 Respiratory Rate 18 18 Blood Pressure 127/72 Pulse Oximetry 96 96 Oxygen Delivery Method 06/27/23 14:38 06/27/23 14:38 06/27/23 14:40 Temperature Pulse Rate 75 Respiratory Rate 18 Blood Pressure 132/63 126/78 Pulse Oximetry 96 Oxygen Delivery Method 06/27/23 14:40 06/27/23 14:42 06/27/23 14:42 Temperature Pulse Rate 77 83 Respiratory Rate 19 13 Blood Pressure 136/87 Pulse Oximetry 96 94 Oxygen Delivery Method 06/27/23 14:44 06/27/23 14:44 06/27/23 14:45 Temperature Pulse Rate 86 81 Respiratory Rate 9 L 13 Blood Pressure 79/50 L Pulse Oximetry 78 L 84 L Oxygen Delivery Method 06/27/23 14:46 06/27/23 14:46 06/27/23 14:48 Temperature Pulse Rate 78 Respiratory Rate 18 Blood Pressure 81/50 L 69/48 L Pulse Oximetry 98 Oxygen Delivery Method 06/27/23 14:48 06/27/23 14:51 06/27/23 14:51 Temperature Pulse Rate 75 80 Respiratory Rate 18 13 Blood Pressure 103/55 L Pulse Oximetry 97 98 Oxygen Delivery Method 06/27/23 14:53 06/27/23 14:53 06/27/23 14:54 Temperature Pulse Rate 79 Respiratory Rate Blood Pressure 147/77 H 161/74 H Pulse Oximetry 98 Oxygen Delivery Method 06/27/23 14:54 06/27/23 14:56 06/27/23 14:56 Temperature Pulse Rate 81 81 Respiratory Rate 13 15 Blood Pressure 156/76 H Pulse Oximetry 98 100 Oxygen Delivery Method 06/27/23 14:58 06/27/23 14:58 06/27/23 15:00 Temperature Pulse Rate 80 Respiratory Rate 20 Blood Pressure 145/67 H 127/61 Pulse Oximetry 99 Oxygen Delivery Method 06/27/23 15:00 06/27/23 15:02 06/27/23 15:02 Temperature Pulse Rate 79 77 Respiratory Rate 20 20 Blood Pressure 121/56 L Pulse Oximetry 98 98 Oxygen Delivery Method 06/27/23 15:04 06/27/23 15:04 06/27/23 15:06 Temperature Pulse Rate 76 Respiratory Rate 20 Blood Pressure 114/57 L 107/66 Pulse Oximetry 97 Oxygen Delivery Method 06/27/23 15:06 06/27/23 15:28 06/27/23 15:30 Temperature Pulse Rate 76 76 Respiratory Rate 20 20 Blood Pressure 116/70 Pulse Oximetry 97 94 Oxygen Delivery Method 06/27/23 15:30 06/27/23 15:32 06/27/23 15:32 Temperature Pulse Rate 75 76 Respiratory Rate 20 20 Blood Pressure 114/69 Pulse Oximetry 94 94 Oxygen Delivery Method 06/27/23 15:34 06/27/23 15:34 06/27/23 15:36 Temperature Pulse Rate 76 Respiratory Rate 20 Blood Pressure 115/73 117/73 Pulse Oximetry 94 Oxygen Delivery Method 06/27/23 15:36 06/27/23 15:38 06/27/23 15:38 Temperature Pulse Rate 76 76 Respiratory Rate 20 20 Blood Pressure 117/69 Pulse Oximetry 95 95 Oxygen Delivery Method 06/27/23 15:40 06/27/23 15:40 06/27/23 15:42 Temperature Pulse Rate 75 Respiratory Rate 20 Blood Pressure 119/73 119/67 Pulse Oximetry 95 Oxygen Delivery Method 06/27/23 15:42 06/27/23 15:44 06/27/23 15:44 Temperature Pulse Rate 75 75 Respiratory Rate 20 20 Blood Pressure 121/66 Pulse Oximetry 95 95 Oxygen Delivery Method 06/27/23 15:45 06/27/23 15:46 06/27/23 15:46 Temperature Pulse Rate 75 75 Respiratory Rate 20 20 Blood Pressure 122/71 Pulse Oximetry 95 95 Oxygen Delivery Method 06/27/23 15:48 06/27/23 15:48 06/27/23 15:50 Temperature Pulse Rate 76 Respiratory Rate 20 Blood Pressure 120/64 123/68 Pulse Oximetry 95 Oxygen Delivery Method 06/27/23 15:50 06/27/23 15:52 06/27/23 15:52 Temperature Pulse Rate 76 75 Respiratory Rate 20 20 Blood Pressure 120/70 Pulse Oximetry 95 95 Oxygen Delivery Method 06/27/23 15:54 06/27/23 15:54 06/27/23 15:56 Temperature Pulse Rate 75 Respiratory Rate 20 Blood Pressure 117/70 111/70 Pulse Oximetry 95 Oxygen Delivery Method 06/27/23 15:56 06/27/23 15:58 06/27/23 15:58 Temperature Pulse Rate 75 75 Respiratory Rate 20 20 Blood Pressure 122/66 Pulse Oximetry 95 95 Oxygen Delivery Method 06/27/23 16:00 06/27/23 16:00 06/27/23 16:02 Temperature Pulse Rate 75 75 Respiratory Rate 20 20 Blood Pressure 117/68 Pulse Oximetry 95 95 Oxygen Delivery Method 06/27/23 16:02 06/27/23 16:04 06/27/23 16:04 Temperature Pulse Rate 76 Respiratory Rate 20 Blood Pressure 126/70 123/74 Pulse Oximetry 95 Oxygen Delivery Method 06/27/23 16:06 06/27/23 16:06 06/27/23 16:08 Temperature Pulse Rate 76 Respiratory Rate 20 Blood Pressure 125/73 122/72 Pulse Oximetry 95 Oxygen Delivery Method 06/27/23 16:08 06/27/23 16:10 06/27/23 16:10 Temperature Pulse Rate 75 76 Respiratory Rate 20 20 Blood Pressure 121/69 Pulse Oximetry 95 94 Oxygen Delivery Method 06/27/23 16:12 06/27/23 16:12 06/27/23 16:14 Temperature Pulse Rate 75 75 Respiratory Rate 20 20 Blood Pressure 113/60 Pulse Oximetry 94 94 Oxygen Delivery Method 06/27/23 16:14 06/27/23 16:15 06/27/23 16:16 Temperature Pulse Rate 75 Respiratory Rate 20 Blood Pressure 113/71 118/68 Pulse Oximetry 94 Oxygen Delivery Method 06/27/23 16:16 06/27/23 16:24 06/27/23 16:26 Temperature Pulse Rate 76 Respiratory Rate 20 Blood Pressure 121/69 130/61 Pulse Oximetry 94 Oxygen Delivery Method 06/27/23 16:28 06/27/23 17:00 06/27/23 17:40 Temperature 98.6 F Pulse Rate 76 Respiratory Rate 20 Blood Pressure 129/65 Pulse Oximetry Oxygen Delivery Method Fraction of Inspired Oxygen 50 Oxygen Delivery Method Mechanical Ventilation Narrative Exam Narrative: GEN: Intubated and sedated, obese HEENT: moist mucous membranes, PERRL NECK: trachea midline, no JVD CV: regular rate and rhythm, no murmurs PULM: Coarse breath sounds bilaterally ABD: soft, nontender, nondistended, no organomegaly EXT: warm and well perfused with no edema NEURO: Unobtainable Objective Labs 06/29/23 04:15 06/29/23 04:15 Labs: Laboratory Results - last 24 hr 06/27/23 06/28/23 06/29/23 08:07 20:39 04:15 WBC 13.5 H RBC 3.55 L Hgb 11.4 L Hct 35.2 L MCV 99.2 MCH 32.1 MCHC 32.3 RDW 19.4 H Plt Count 214 Neut % (Auto) 84.6 H Lymph % (Auto) 8.0 L [place] % (Auto) 6.8 Eos % (Auto) 0.0 L Baso % (Auto) 0.6 Neut # (Auto) 13646 H Lymph # (Auto) 1100 [place] # (Auto) 900 Eos # (Auto) 0 Baso # (Auto) 100 APTT 49 H 48 H Sodium 143 Potassium 3.6 Chloride 104 Carbon Dioxide 31 BUN 47 H Creatinine 1.60 H Estimated GFR 36 L BUN/Creatinine Ratio 29.4 H Glucose 363 H D Calcium 9.2 Phosphorus 4.0 D Troponin I 0.350 H* Procalcitonin 0.28 Urine Color Yellow Urine Appearance Cloudy Urine pH 5.5 Ur Specific [place] 1.025 Urine Protein 1+ H Urine Glucose (UA) 1+ H Urine Ketones Negative Urine Occult Blood 2+ H Urine Nitrate Negative Urine Bilirubin Negative Urine Urobilinogen 0.2 Ur Leukocyte Esterase 3+ H Urine RBC None seen Urine WBC 30-100/hpf H Ur Squamous Epith Cells None seen Urine Bacteria Many (>30) H Ur Culture Indicated? Specimen cultured Vol Urine Centrifuged 10ml (spun) [facility] Medical History PONCE (obstructive sleep apnea) Chronic hypoxemic respiratory failure COPD (chronic obstructive pulmonary disease) DM2 (diabetes mellitus, type 2) HTN (hypertension) Thyroiditis Systolic and diastolic CHF, chronic Obesity Surgical History S/P hernia surgery Family History Mother No pertinent past medical history Father No pertinent past medical history Social History household members: other Smoking Status: Former smoker alcohol intake: former Assessment & Plan Assessment & Plan narrative: # likely septic shock, improving -BP down to 51/32 in ED requiring levophed -source unclear, PNA vs UTI as UA has pyuria and CXR has possible LLL infiltrate, procal up to 0.28 -will use meropenem to cover for ESBL and pseudomonas as she has h/o of this in urine, plus vanc -BNP 14k, last EF 20-25% in Jan 2023, rechecked limited echo and EF 15-20% -Levophed started in ED, now weaned off -appreciate tele ICU consult -urine culture with very early growth -blood cultures with NG at 48 hours # possible NSTEMI -troponin peaked at 0.537, now downtrending -likely due to septic shock -started heparin drip x48 hours -echo with EF 150-20% and no significant change from prior # acute on chronic hypoxic and hypercapnic respiratory failure -at home on 2L O2 baseline -satting 60% by EMS -required Bipap in ED, then intubated due to worsening hypercapnea -solumedrol 60mg IV BID for possible COPD exac # BLANCA on CKD, improving -creatinine 1.81 and baseline 1.3 -s/p 1L bolus in ED -monitor and renally dose meds # COPD -continue nebs prn # DM2, POA and stable -insulin drip while on IV steroids -goal 70-180 BG # HFrEF -last EF 20-25%, unclear if in cardiogenic shock as BNP only 2200 and previously 22k -repeat echo ordered and shows EF 15-20% # morbid obesity, POA. I spent a total of 35 minutes of critical care time on this patient's care today; this time is exclusive of procedural time. Code status is full code. DVT prophylaxis with heparin subcutaneous. Proxy is daughter Roxy. I have reviewed home meds and used all available resources to reconcile the home meds. Dispo: ICU Quality VTE Deep Vein Thrombosis/Pulmonary Embolism Present on Admission: No
--- NOTE | 2023-06-29 20:43 | PM.ICURNDS ---
- Date Patient Seen: 06/29/23 Time Patient Seen: 20:43 :: This patient was seen via real time interactive two-way audiovisual telecommunication. Note: remains intubated afebrile, HD stable, off drips minimal vent settings, SAT/SBT if able in am
[2023-06-29] MEDS: ATORVASTATIN 20 MG TABLET 80 MG PO (21:37)
[2023-06-30] VITALS (104 sets, daily range): BP systolic 100–146; BP diastolic 56–84; PULSE 66–100; RESP 16–36; TEMP 37.2–39.4; O2SAT 83–99
[2023-06-30] MEDS: ALBUTEROL/IPRATROPIUM 3 ML AMPUL INH ×6 (02:46→23:37)
[2023-06-30] MEDS: dexmedeTOMIDine in 0.9 % NaCL 400 MCG/100 ML PLAST..BAG 11.95 MCG IV ×3 (03:06→19:47)
[2023-06-30] MEDS: propofoL 1,000 MG/100 ML VIAL 10.89 MG IV (03:50)
[2023-06-30 04:29] LABS: Add Manual Diff / Slide Review NO; Basophils Absolute Auto 100 /uL (0-100); Basophils Percent Auto 0.5 % (0-2); Eosinophils Absolute Auto 0 /uL (0-450); Hematocrit 33.3 % (36-46); Hemoglobin 10.8 g/dL (12.0-16.0); Lymphocytes Absolute Auto 900 /uL (1100-4500); Lymphocytes Percent Auto 8.3 % (25-40); Mean Corpuscular HGB Conc 32.3 % (30-36); Mean Corpuscular Hemoglobin 32.5 PG (26-34); Mean Corpuscular Volume 100.6 fL (80-100); Monocytes Absolute Auto 700 /uL (0-900); Monocytes Percent Auto 6.7 % (3-14); Neutrophils Absolute Auto 9200 /uL (1500-7000); Neutrophils Percent Auto 84.5 % (50-75); Platelet Count 159 X10^3/uL (150-400); Red Blood Cell Count 3.31 X10^6/uL (4.0-5.2); Red Cell Distribution Width 19.9 % (11.6-14.8); White Blood Cell Count 10.9 X10^3/uL (4.5-11.0)
[2023-06-30 04:36] LABS: BUN Creatinine Ratio 35.4 (6-22); Blood Urea Nitrogen 51 mg/dL (7-17); Calcium 9.3 mg/dL (8.4-10.2); Carbon Dioxide 32 mmol/L (22-32); Chloride 110 mmol/L (98-107); Estimated Glomerular Filt Rate 41 mL/min (>60); Glucose 378 mg/dL (80-110); HEMOLYSIS < 15 (0-50); Potassium 3.5 mmol/L (3.4-5.1); Sodium 144 mmol/L (137-145)
[2023-06-30 04:53] LABS: Procalcitonin 0.27 ng/mL (<0.5)
[2023-06-30 05:09] LABS: PTT Partial Thromboplastin Tim 44 SECONDS (25.1-36.5)
[2023-06-30] MEDS: methylPREDNISolone 125 MG/2 ML VIAL 60 MG IV (05:56)
[2023-06-30] MEDS: LEVOTHYROXINE 100 MCG TABLET PO (05:56)
[2023-06-30] MEDS: LEVOTHYROXINE 75 MCG TABLET PO (05:56)
[2023-06-30] MEDS: MEROPENEM 2 GM in SODIUM CHLORIDE 0.9% 100 ML IV ×3 (05:57→22:20)
[2023-06-30] MEDS: INSULIN LISPRO 100 UNIT/ML 3ML VIAL SUBCUT ×4 (06:14→23:46)
[2023-06-30] MEDS: CHLORHEXIDINE GLUCONATE 15 ML CUP PO ×2 (08:41→21:22)
[2023-06-30] MEDS: FAMOTIDINE 20 MG/2 ML VIAL IV (08:41)
[2023-06-30] MEDS: ASPIRIN EC 81 MG TABLET PO (08:41)
--- NOTE | 2023-06-30 10:00 | DI.RAD.S_ITS ---
PROCEDURE: XR CHEST 1V INDICATIONS: ett TECHNIQUE: One view of the chest was acquired. COMPARISON: [facility], CR, XR CHEST FOR PICC 1V, 06/27/2023, 17:58. FINDINGS: Surgical changes and devices: ET tube tip is approximately 0.8 cm above the ron. Retraction by at least 2 cm is suggested. NG tube projects at least to the stomach. Lungs and pleura: Pulmonary edema, bibasilar atelectasis, moderate left pleural effusion. Mediastinum: Mediastinal contours appear normal. Cardiomegaly, as before. Bones and chest wall: No suspicious bony lesions. Overlying soft tissues appear unremarkable. IMPRESSION: 1. Recommend retraction of the ET tube by at least 2 cm. 2. Unchanged congestive heart failure. Dictated by: Hadley Brunner M.D. on 06/30/2023 at 11:09 Approved by: Hadley Brunner M.D. on 06/30/2023 at 11:10
--- NOTE | 2023-06-30 10:00 | PM.PN.EICU ---
Subjective Subjective IF CAMERA ACTIVATED, patient seen via real-time interactive audiovisual communication: Camera activated Consent obtained for tele-senior design engineering specialist care: Yes Patient Location: ICU Provider location (State): [place] Other participants/roles: Dr. Gillespie Interval history: no acute events overnight intubaed, sedated Current Medications Current Medications Medications: Home Medications acetaminophen 325 mg tablet (Tylenol) 650 mg PO TID 05/25/22 [History Confirmed 06/27/23] aspirin 81 mg tablet,delayed release 81 mg PO DAILY 05/25/22 [History Confirmed 06/27/23] budesonide-formoterol HFA 160 mcg-4.5 mcg/actuation aerosol inhaler 2 puff inhalation Q4H PRN Wheezing 05/25/22 [History Confirmed 06/27/23] bupropion HCl 150 mg tablet,12 hr sustained-release 150 mg PO BEDTIME 05/25/22 [History Confirmed 06/27/23] carvedilol 3.125 mg tablet 3.125 mg PO BID 05/25/22 [History Confirmed 06/27/23] cyanocobalamin (vitamin B-12) 500 mcg tablet 500 mcg PO DAILY 05/25/22 [History Confirmed 06/27/23] fenofibrate 160 mg tablet 160 mg PO DAILY 05/25/22 [History Confirmed 06/27/23] fluoxetine 20 mg tablet 20 mg PO DAILY 05/25/22 [History Confirmed 06/27/23] fluticasone propionate 50 mcg/actuation nasal spray,suspension 2 spray intranasal DAILY 05/25/22 [History Confirmed 06/27/23] gabapentin 300 mg capsule 300 mg PO BEDTIME 05/25/22 [History Confirmed 06/27/23] insulin glargine 100 unit/mL (3 mL) subcutaneous pen 22 unit SUBCUT BID 05/25/22 [History Confirmed 06/27/23] insulin lispro 100 unit/mL subcutaneous solution (Humalog U-100 Insulin) See Protocol SUBCUT TIDWM 05/25/22 [History Confirmed 06/27/23] loratadine 10 mg tablet 10 mg PO DAILY 05/25/22 [History Confirmed 06/27/23] magnesium oxide 200 mg PO DAILY 05/25/22 [History Confirmed 06/27/23] meclizine 25 mg tablet 25 mg PO Q8HR PRN Dizziness 05/25/22 [History Confirmed 06/27/23] montelukast 10 mg tablet 10 mg PO DAILY 05/25/22 [History Confirmed 06/27/23] nystatin 100,000 unit/gram topical powder 1 applic topical BID PRN Rash 05/25/22 [History Confirmed 06/27/23] ondansetron 4 mg disintegrating tablet 4 mg PO Q8H PRN Nausea 05/25/22 [History Confirmed 06/27/23] rosuvastatin 40 mg tablet 40 mg PO DAILY 05/25/22 [History Confirmed 06/27/23] sennosides 8.6 mg tablet (senna) 17.2 mg PO BEDTIME 05/25/22 [History Confirmed 06/27/23] tiotropium bromide 18 mcg capsule with inhalation device (Spiriva with HandiHaler) 1 cap inhalation DAILY 05/25/22 [History Confirmed 06/27/23] trazodone 50 mg tablet 25 mg PO BEDTIME 05/25/22 [History Confirmed 06/27/23] albuterol sulfate 90 mcg/actuation aerosol inhaler 4 puff inhalation Q4H PRN Shortness Of Breath Or Wheezing 08/15/22 [History Confirmed 06/27/23] levothyroxine 175 mcg tablet 175 mcg PO DAILY 08/15/22 [History Confirmed 06/27/23] potassium chloride 10 mEq tablet,extended release 20 meq PO DAILY 08/15/22 [History Confirmed 06/27/23] midodrine 5 mg tablet 10 mg PO BID 05/20/23 [History Confirmed 06/27/23] torsemide 20 mg DAILY 05/20/23 [History Confirmed 06/27/23] torsemide 10 mg tablet 10 mg PO BEDTIME 05/20/23 [History Confirmed 06/27/23] Visit Medications (administered) Generic Name Dose Route Start Last Admin Trade Name Freq PRN Reason Stop Dose Admin Albuterol/Ipratropium 3 ml 06/27/23 19:00 06/30/23 06:11 Albuterol/Ipratropium 3 Ml Ampul INH 3 ml [id number] JAY JAY Administration Aspirin 81 mg 06/28/23 09:00 06/30/23 08:41 Aspirin Ec 81 Mg Tablet PO 81 mg DAILY JAY JAY Administration Atorvastatin Calcium 80 mg 06/27/23 21:00 06/29/23 21:37 Atorvastatin 20 Mg Tablet PO 80 mg BEDTIME JAY JAY Administration Chlorhexidine Gluconate 15 ml 06/27/23 21:00 06/30/23 08:41 Chlorhexidine Gluconate 15 Ml Cup PO 15 ml BID JAY JAY Administration Famotidine 20 mg 06/29/23 09:00 06/30/23 08:41 Famotidine 20 Mg/2 Ml Vial IV 20 mg DAILY JAY JAY Administration Fentanyl 50 mcg 06/27/23 12:17 06/27/23 16:21 Fentanyl 100 Mcg/2 Ml Inj IV 50 mcg Q30M PRN Administration Pain, Severe (7-10) Propofol 1,000 mg in 100 mls @ 7.26 mls/hr 06/27/23 12:30 06/30/23 09:43 Propofol IV 5 mcg/kg/min TITRATE JAY JAY 3.63 mls/hr Titration Protocol 10 MCG/KG/MIN NOREPINEPHRINE BITARTRATE/D5W 4 mg in 250 mls @ 45.375 mls/hr 06/27/23 13:45 06/29/23 06:30 Levophed IV 0 mcg/kg/min TITRATE JAY JAY 0 mls/hr Titration Protocol 0.1 MCG/KG/MIN Meropenem 2 gm/ Sodium 100 mls @ 200 mls/hr 06/27/23 17:00 06/30/23 05:57 Chloride IV 200 mls/hr Q12H JAY JAY Administration dexmedeTOMIDine in 0.9 % NaCL 400 mcg in 100 mls @ 5.975 mls/hr 06/27/23 19:30 06/30/23 03:06 Precedex IV 0.4 mcg/kg/hr TITRATE JAY JAY 11.95 mls/hr Administration Protocol 0.2 MCG/KG/HR Vancomycin HCl 1,250 mg in 250 mls @ 250 mls/hr 06/28/23 10:00 06/29/23 09:15 Vancomycin IV 250 mls/hr Q24H JAY JAY Administration Insulin Glargine 20 unit 06/29/23 10:22 06/29/23 21:37 Insulin Glargine 100 Unit/Ml 3ml Pen SUBCUT 20 unit BEDTIME JAY JAY Administration Levothyroxine Sodium 75 mcg 06/28/23 06:00 06/30/23 05:56 Levothyroxine 75 Mcg Tablet PO 75 mcg DAILY@0600 JAY JAY Administration Levothyroxine Sodium 100 mcg 06/28/23 06:00 06/30/23 05:56 Levothyroxine 100 Mcg Tablet PO 100 mcg DAILY@0600 JAY JAY Administration Methylprednisolone 60 mg 06/27/23 17:00 06/30/23 05:56 Methylprednisolone 125 Mg/2 Ml Vial IV 60 mg Q12H JAY JAY Administration Objective Ventilator Parameters: Ventilator Settings FiO2 40 RT Vent Frequency 16 Ventilator Tidal Volume 370 Exhaled Vt/kg IBW 6.5 Positive End Expiratory 7 Pressure Inspiratory Phase Time 0.95 I:E Ratio 1:2.9 Patient Position HOB >= 30 degrees Labs 06/30/23 04:10 06/30/23 04:10 Labs: Laboratory Results - last 24 hr 06/30/23 04:10 WBC 10.9 RBC 3.31 L Hgb 10.8 L Hct 33.3 L MCV 100.6 H MCH 32.5 MCHC 32.3 RDW 19.9 H Plt Count 159 Neut % (Auto) 84.5 H Lymph % (Auto) 8.3 L [place] % (Auto) 6.7 Eos % (Auto) 0.0 L Baso % (Auto) 0.5 Neut # (Auto) 9200 H Lymph # (Auto) 900 L [place] # (Auto) 700 Eos # (Auto) 0 Baso # (Auto) 100 APTT 44 H Sodium 144 Potassium 3.5 Chloride 110 H Carbon Dioxide 32 BUN 51 H Creatinine 1.44 H Estimated GFR 41 L BUN/Creatinine Ratio 35.4 H Glucose 378 H Calcium 9.3 Procalcitonin 0.27 Exam Vital Signs (past 8 hours): - 06/30/23 02:15 06/30/23 02:15 06/30/23 02:30 Temperature Pulse Rate 91 H 75 Respiratory Rate 18 16 Blood Pressure 100/64 Pulse Oximetry 90 L 91 Oxygen Delivery Method 06/30/23 02:42 06/30/23 02:42 06/30/23 02:45 Temperature Pulse Rate 90 Respiratory Rate 25 H Blood Pressure 104/58 L 110/64 Pulse Oximetry 95 Oxygen Delivery Method 06/30/23 02:45 06/30/23 03:00 06/30/23 03:00 Temperature Pulse Rate 83 80 Respiratory Rate 36 H 17 Blood Pressure 101/56 L Pulse Oximetry 99 92 Oxygen Delivery Method 06/30/23 03:15 06/30/23 03:15 06/30/23 03:30 Temperature Pulse Rate 78 78 Respiratory Rate 16 18 Blood Pressure 103/60 Pulse Oximetry 92 93 Oxygen Delivery Method 06/30/23 03:30 06/30/23 03:45 06/30/23 03:45 Temperature Pulse Rate 76 Respiratory Rate 16 Blood Pressure 107/62 107/62 Pulse Oximetry 92 Oxygen Delivery Method 06/30/23 04:00 06/30/23 04:00 06/30/23 04:00 Temperature 99.7 F H Pulse Rate 78 Respiratory Rate 17 Blood Pressure 107/58 L Pulse Oximetry 91 Oxygen Delivery Method Mechanical Ventilation 06/30/23 04:15 06/30/23 04:15 06/30/23 04:30 Temperature Pulse Rate 72 Respiratory Rate 17 Blood Pressure 104/59 L 111/62 Pulse Oximetry 91 Oxygen Delivery Method 06/30/23 04:30 06/30/23 04:45 06/30/23 04:45 Temperature Pulse Rate 74 74 Respiratory Rate 17 18 Blood Pressure 109/64 Pulse Oximetry 96 91 Oxygen Delivery Method 06/30/23 05:00 06/30/23 05:00 06/30/23 05:15 Temperature Pulse Rate 77 74 Respiratory Rate 17 18 Blood Pressure 107/60 Pulse Oximetry 91 92 Oxygen Delivery Method 06/30/23 05:15 06/30/23 05:30 06/30/23 05:30 Temperature Pulse Rate 89 Respiratory Rate 17 Blood Pressure 106/59 L 107/66 Pulse Oximetry 92 Oxygen Delivery Method 06/30/23 05:45 06/30/23 05:45 06/30/23 06:00 Temperature Pulse Rate 68 71 Respiratory Rate 16 17 Blood Pressure 116/62 Pulse Oximetry 93 93 Oxygen Delivery Method 06/30/23 06:00 06/30/23 06:15 06/30/23 06:15 Temperature Pulse Rate 88 Respiratory Rate 18 Blood Pressure 110/57 L 113/67 Pulse Oximetry 93 Oxygen Delivery Method 06/30/23 06:30 06/30/23 06:30 06/30/23 06:45 Temperature Pulse Rate 75 78 Respiratory Rate 17 17 Blood Pressure 109/58 L Pulse Oximetry 93 92 Oxygen Delivery Method 06/30/23 06:45 06/30/23 07:00 06/30/23 07:00 Temperature Pulse Rate 76 Respiratory Rate 17 Blood Pressure 109/60 109/65 Pulse Oximetry 92 Oxygen Delivery Method 06/30/23 07:15 06/30/23 07:15 06/30/23 07:30 Temperature Pulse Rate 74 72 Respiratory Rate 16 16 Blood Pressure 117/64 Pulse Oximetry 93 92 Oxygen Delivery Method 06/30/23 07:30 06/30/23 07:45 06/30/23 07:45 Temperature Pulse Rate 72 Respiratory Rate 17 Blood Pressure 117/65 119/66 Pulse Oximetry 92 Oxygen Delivery Method 06/30/23 08:00 06/30/23 08:00 06/30/23 08:00 Temperature Pulse Rate 74 Respiratory Rate 16 Blood Pressure 120/66 Pulse Oximetry 92 Oxygen Delivery Method Mechanical Ventilation 06/30/23 08:15 06/30/23 08:15 06/30/23 08:30 Temperature Pulse Rate 74 77 Respiratory Rate 19 20 Blood Pressure 117/62 Pulse Oximetry 91 92 Oxygen Delivery Method 06/30/23 08:30 06/30/23 08:57 Temperature 99.0 F Pulse Rate Respiratory Rate Blood Pressure 120/66 Pulse Oximetry Oxygen Delivery Method Fraction of Inspired Oxygen 50 Oxygen Delivery Method Mechanical Ventilation Quality TeleICU VTE Deep Vein Thrombosis/Pulmonary Embolism Present on Admission: No Assessment & Plan Assessment & Plan narrative: # septic vs cardiogenic shock -now afebrile, HD stable -continue abx -check final cxs, gram -ve growing # acute on chronic hypoxic and hypercapnic respiratory failure -at home on 2L O2 baseline -minimal vent sats, 92%, no secretions/wheezing -sat/sbt today -will check cxr/abg # BLANCA on CKD -improving -adeqaute urine output -monitor and renal dose meds # COPD -continue nebs prn, no wheezing noted # DM2, POA and stable -keep glucose 140-180s -may need to restart insulin drip # HFrEF -no nw echo I spent a total of 35 minutes of critical care time on this patient's care today; this time is exclusive of procedural time. Code status is full code. DVT prophylaxis with heparin subcutaneous. Proxy is daughter Roxy. I have reviewed home meds and used all available resources to reconcile the home meds. Dispo: ICU
--- NOTE | 2023-06-30 10:05 | PC.NURSE ---
0800 - All sedation turned off. Patient not following commands, opening eyes, etc. O2 sats 90-93%. Keeping sedation off and obtaining chest x-ray and ABG per Dr Talamantes
[2023-06-30] MEDS: HEPARIN 5,000 UNIT/ML VIAL 5000 UNIT SUBCUT ×2 (11:01→21:22)
[2023-06-30] MEDS: POTASSIUM CHLORIDE 20 MEQ/15 ML UDC 40 MEQ TUBE (11:01)
[2023-06-30 11:21] LABS: Fractionated Inspired Oxygen 40; HCO3 ABG 31 mmol/L (23-27); Oxygen Saturation ABG 93 % (95-100); PCO2 ABG 39.5 mmHg (35-45); PO2 ABG 62 mmHg (80-100); TCO2 ABG 32 mmol/L (23-27)
[2023-06-30 11:22] LABS: Blood Gas Collection Site Right Brachial
[2023-06-30 11:37] LABS: Vancomycin Trough 18.2 ug/mL (10-20)
[2023-06-30] MEDS: VANCOMYCIN 1,250 MG/250 ML PIGGYBACK 250 MG IV (11:45)
[2023-06-30] MEDS: predniSONE 20 MG TABLET 40 MG PO (12:42)
[2023-06-30] MEDS: FUROSEMIDE 20 MG/2 ML VIAL IV (12:43)
[2023-06-30] MEDS: INSULIN GLARGINE 100 UNIT/ML 3ML PEN 20 UNIT SUBCUT ×2 (12:46→21:22)
[2023-06-30 13:49] LABS: Vancomycin Peak 51.3 ug/mL (20-40)
--- NOTE | 2023-06-30 15:50 | DIET.CONS2 ---
Dietary Inpatient Consultation Note Admission Date: 06/27/2023 13:25 Enteral nutrition adjusted due to equipment malfunction: Diet: 06/27/23 16:42 NPO Diet Diet Modifications: NPO Type: Strict 06/30/23 Dinner Tube Feeding Diet Diet Modifications: TF Supplement type: Glucerna 1.5 ashley TF mode of delivery: Bolus Starting flow rate mL/hr: 80 Flow rate goal mL/hr: 80 Titration Schedule to reach Goal Rate: - Max total daily volume in mL: 960 Free fluid: 200 Free Water Frequency: Q6H Comment: Bolus 80 mL q2h until TF pump becomes available Nutrition Type of Feeding Tube NG/OG 06/29/23 10:22 Continue adjusted recc until appropriate equipment is available, then resume continuous feed of continuous Glucerna 1.5 at 40 mL. Electronically Signed by: Mary Lou Valente 06/30/23 15:50 Clinical Dietitian [address] [id number]
--- NOTE | 2023-06-30 15:58 | CM.DPNOTE ---
DCP Cont. Reviewed EMR and team rounds for status updates. Pt remains intubated. Per RN, no new updates at this time. Plan: CM Team will continue to follow for evolving discharge plans and needs. [place]
--- NOTE | 2023-06-30 16:38 | PM.PN.1 ---
Subjective Subjective Interval history: Patient still intubated but weaned off pressors. Failed SBT today, will repeat tomorrow. Glucose elevated, increased lantus to BID. Exam Vital Signs (past 8 hours): - 06/30/23 08:45 06/30/23 08:45 06/30/23 08:57 Temperature 99.0 F Pulse Rate 81 Respiratory Rate 16 Blood Pressure 119/60 Pulse Oximetry 90 L Oxygen Delivery Method Fraction of Inspired Oxygen 06/30/23 09:00 06/30/23 09:00 06/30/23 09:15 Temperature Pulse Rate 96 H 81 Respiratory Rate 20 16 Blood Pressure 137/65 Pulse Oximetry 93 93 Oxygen Delivery Method Fraction of Inspired Oxygen 06/30/23 09:15 06/30/23 09:30 06/30/23 09:30 Temperature Pulse Rate 77 Respiratory Rate 21 Blood Pressure 137/72 122/59 L Pulse Oximetry 91 Oxygen Delivery Method Fraction of Inspired Oxygen 06/30/23 09:45 06/30/23 09:45 06/30/23 10:00 Temperature Pulse Rate 78 75 Respiratory Rate 20 16 Blood Pressure 131/66 Pulse Oximetry 90 L 91 Oxygen Delivery Method Fraction of Inspired Oxygen 06/30/23 10:00 06/30/23 10:15 06/30/23 10:15 Temperature Pulse Rate 76 Respiratory Rate 16 Blood Pressure 128/66 132/62 Pulse Oximetry 90 L Oxygen Delivery Method Fraction of Inspired Oxygen 06/30/23 10:30 06/30/23 10:30 06/30/23 10:45 Temperature Pulse Rate 76 72 Respiratory Rate 20 17 Blood Pressure 144/67 H Pulse Oximetry 92 93 Oxygen Delivery Method Fraction of Inspired Oxygen 06/30/23 10:45 06/30/23 11:00 06/30/23 11:00 Temperature Pulse Rate 71 Respiratory Rate 16 Blood Pressure 138/74 134/74 Pulse Oximetry 92 Oxygen Delivery Method Fraction of Inspired Oxygen 06/30/23 11:15 06/30/23 11:15 06/30/23 11:30 Temperature Pulse Rate 72 76 Respiratory Rate 17 16 Blood Pressure 136/68 Pulse Oximetry 92 91 Oxygen Delivery Method Fraction of Inspired Oxygen 06/30/23 11:30 06/30/23 11:45 06/30/23 11:45 Temperature Pulse Rate 100 H Respiratory Rate 21 Blood Pressure 132/67 146/84 H Pulse Oximetry 96 Oxygen Delivery Method Fraction of Inspired Oxygen 06/30/23 11:46 06/30/23 12:00 06/30/23 12:00 Temperature Pulse Rate 95 H 77 Respiratory Rate 21 16 Blood Pressure 137/74 Pulse Oximetry 97 94 Oxygen Delivery Method Mechanical Ventilation Fraction of Inspired Oxygen 40 06/30/23 12:00 06/30/23 12:15 06/30/23 12:15 Temperature Pulse Rate 75 Respiratory Rate 16 Blood Pressure 135/73 Pulse Oximetry 94 Oxygen Delivery Method Mechanical Ventilation Fraction of Inspired Oxygen 06/30/23 14:51 06/30/23 16:00 Temperature Pulse Rate 71 Respiratory Rate 17 Blood Pressure Pulse Oximetry 94 Oxygen Delivery Method Mechanical Ventilation Mechanical Ventilation Fraction of Inspired Oxygen 40 Fraction of Inspired Oxygen 40 SaO2/FiO2 Ratio 235 Oxygen Delivery Method Mechanical Ventilation Narrative Exam Narrative: GEN: Intubated and sedated, obese HEENT: moist mucous membranes, PERRL NECK: trachea midline, no JVD CV: regular rate and rhythm, no murmurs PULM: Coarse breath sounds bilaterally ABD: soft, nontender, nondistended, no organomegaly EXT: warm and well perfused with no edema NEURO: Unobtainable Objective Labs 06/30/23 04:10 06/30/23 04:10 Labs: Laboratory Results - last 24 hr 06/30/23 06/30/23 06/30/23 04:10 09:27 10:52 WBC 10.9 RBC 3.31 L Hgb 10.8 L Hct 33.3 L MCV 100.6 H MCH 32.5 MCHC 32.3 RDW 19.9 H Plt Count 159 Neut % (Auto) 84.5 H Lymph % (Auto) 8.3 L Owsley % (Auto) 6.7 Eos % (Auto) 0.0 L Baso % (Auto) 0.5 Neut # (Auto) 9200 H Lymph # (Auto) 900 L [place] # (Auto) 700 Eos # (Auto) 0 Baso # (Auto) 100 APTT 44 H ABG Sample Site Right brachial ABG pH 7.50 H ABG pCO2 39.5 ABG pO2 62 L ABG HCO3 31 H ABG Total CO2 32 H ABG O2 Saturation 93 L ABG Base Excess 8.0 H FiO2 40 Sodium 144 Potassium 3.5 Chloride 110 H Carbon Dioxide 32 BUN 51 H Creatinine 1.44 H Estimated GFR 41 L BUN/Creatinine Ratio 35.4 H Glucose 378 H Calcium 9.3 Procalcitonin 0.27 Vancomycin Peak Vancomycin Trough 18.2 06/30/23 13:00 WBC RBC Hgb Hct MCV MCH MCHC RDW Plt Count Neut % (Auto) Lymph % (Auto) [place]ws[place] % (Auto) Eos % (Auto) Baso % (Auto) Neut # (Auto) Lymph # (Auto) [place]wsley # (Auto) Eos # (Auto) Baso # (Auto) APTT ABG Sample Site ABG pH ABG pCO2 ABG pO2 ABG HCO3 ABG Total CO2 ABG O2 Saturation ABG Base Excess FiO2 Sodium Potassium Chloride Carbon Dioxide BUN Creatinine Estimated GFR BUN/Creatinine Ratio Glucose Calcium Procalcitonin Vancomycin Peak 51.3 H* Vancomycin Trough PFSH Medical History PONCE (obstructive sleep apnea) Chronic hypoxemic respiratory failure COPD (chronic obstructive pulmonary disease) DM2 (diabetes mellitus, type 2) HTN (hypertension) Thyroiditis Systolic and diastolic CHF, chronic Obesity Surgical History S/P hernia surgery Family History Mother No pertinent past medical history Father No pertinent past medical history Social History household members: other Smoking Status: Former smoker alcohol intake: former Assessment & Plan Assessment & Plan narrative: # likely septic shock, improving -BP down to 51/32 in ED requiring levophed -source unclear, PNA vs UTI as UA has pyuria and CXR has possible LLL infiltrate, procal up to 0.28 -will use meropenem to cover for ESBL and pseudomonas as she has h/o of this in urine, plus vanc -BNP 14k, last EF 20-25% in Jan 2023, rechecked limited echo and EF 15-20% -Levophed started in ED, now weaned off -appreciate tele ICU consult -urine culture with very early growth -blood cultures with NG at 48 hours # possible NSTEMI -troponin peaked at 0.537, now downtrending -likely due to septic shock -started heparin drip x48 hours -echo with EF 150-20% and no significant change from prior # acute on chronic hypoxic and hypercapnic respiratory failure -at home on 2L O2 baseline -satting 60% by EMS -required Bipap in ED, then intubated due to worsening hypercapnea -solumedrol 60mg IV BID for possible COPD exac -will continue with daily trials to check for readiness for extubation. # BLANCA on CKD, improving -creatinine 1.81 and baseline 1.3, now improved to 1.44. -s/p 1L bolus in ED # COPD -continue nebs prn # DM2, POA and stable -increase lantus to BID from daily, as at home she is on BID dosing. Will do this today, assess response. May need to increase lantus further. -goal 70-180 BG # CHFrEF -last EF 20-25%, unclear if in cardiogenic shock as BNP only 2200 and previously 22k -repeat echo ordered and shows EF 15-20% # morbid obesity, POA. I spent a total of 35 minutes of critical care time on this patient's care today; this time is exclusive of procedural time. Code status is full code. DVT prophylaxis with heparin subcutaneous. Proxy is daughter Roxy. I have reviewed home meds and used all available resources to reconcile the home meds. Dispo: ICU, will remain ICU status. Quality VTE Deep Vein Thrombosis/Pulmonary Embolism Present on Admission: No
[2023-06-30] MEDS: ACETAMINOPHEN 325 MG TABLET 650 MG PO (20:11)
--- NOTE | 2023-06-30 20:20 | DI.RAD.S_ITS ---
PROCEDURE: XR CHEST 1V INDICATIONS: ett tube adjustment TECHNIQUE: One view of the chest was acquired. COMPARISON: [facility], CR, XR CHEST FOR PICC 1V, 06/27/2023, 17:58. [facility], CR, XR CHEST 1V, 06/27/2023, 13:04. [facility], CR, XR CHEST 1V, 06/30/2023, 10:02. FINDINGS: Surgical changes and devices: There is an endotracheal tube 1.3 cm above ron. There is a left-sided PICC with the tip in the area of SVC. A nasogastric tube is seen with the tip in the left upper quadrant, presumably within stomach. Lungs and pleura: Left basilar opacities probably atelectasis. Mildly increased pulmonary vascularity suggesting mild CHF. Small left pleural effusion. No pneumothorax. Mediastinum: Mediastinal contours appear normal. Heart size is mildly enlarged. Bones and chest wall: No suspicious bony lesions. Overlying soft tissues appear unremarkable. IMPRESSION: 1. The tip of the ETT is 1.3 cm above ron. Dictated by: Cate Gooden M.D. on 06/30/2023 at 21:37 Approved by: Cate Gooden M.D. on 06/30/2023 at 21:39
--- NOTE | 2023-06-30 20:22 | PM.ICURNDS ---
- Date Patient Seen: 06/30/23 Time Patient Seen: 20:22 :: This patient was seen via real time interactive two-way audiovisual telecommunication. Note: fever of 102 noted HR 70s bp stable will monzon culture check cxr check lipid panel check cbc/bmp replace lytes prn pt already on vanco/merrem will hold off on upgrading for now good urine output will follow closely please call eICU if condition changes
[2023-06-30 21:06] LABS: Add Manual Diff / Slide Review NO; Basophils Absolute Auto 0 /uL (0-100); Basophils Percent Auto 0.2 % (0-2); Eosinophils Absolute Auto 0 /uL (0-450); Hematocrit 34.4 % (36-46); Hemoglobin 11.2 g/dL (12.0-16.0); Lymphocytes Absolute Auto 800 /uL (1100-4500); Lymphocytes Percent Auto 8.2 % (25-40); Mean Corpuscular HGB Conc 32.6 % (30-36); Mean Corpuscular Hemoglobin 32.8 PG (26-34); Mean Corpuscular Volume 100.7 fL (80-100); Monocytes Absolute Auto 600 /uL (0-900); Neutrophils Absolute Auto 8300 /uL (1500-7000); Neutrophils Percent Auto 85.6 % (50-75); Platelet Count 131 X10^3/uL (150-400); Red Blood Cell Count 3.42 X10^6/uL (4.0-5.2); Red Cell Distribution Width 19.8 % (11.6-14.8); White Blood Cell Count 9.7 X10^3/uL (4.5-11.0)
[2023-06-30] MEDS: ATORVASTATIN 20 MG TABLET 80 MG PO (21:22)
[2023-06-30 21:25] LABS: Alanine Aminotransferase 12 IU/L (<35); Albumin 3.5 g/dL (3.5-5.0); Albumin Globulin Ratio 1.2 (1.0-2.8); Alkaline Phosphatase 49 U/L (38-126); Aspartate Aminotransferase 20 IU/L (14-36); BUN Creatinine Ratio 34.9 (6-22); Bilirubin Total 0.6 mg/dL (0.2-1.3); Blood Urea Nitrogen 52 mg/dL (7-17); Calcium 9.4 mg/dL (8.4-10.2); Carbon Dioxide 29 mmol/L (22-32); Chloride 116 mmol/L (98-107); Estimated Glomerular Filt Rate 40 mL/min (>60); Globulin 2.9 g/dL (1.7-4.1); Glucose 370 mg/dL (80-110); HEMOLYSIS < 15 (0-50); Magnesium 2.9 mg/dL (1.6-2.3); Phosphorous 1.6 mg/dL (2.8-4.1); Potassium 4.3 mmol/L (3.4-5.1); Sodium 148 mmol/L (137-145); Total Protein 6.4 g/dL (6.3-8.2)
[2023-06-30 21:28] LABS: Cholesterol 166 mg/dL (140-199); HDL Cholesterol 30 mg/dL (40-60); Triglycerides 599 mg/dL (35-150)
[2023-07-01] VITALS (111 sets, daily range): BP systolic 84–129; BP diastolic 45–78; PULSE 57–89; RESP 15–23; TEMP 38.3–39.1; O2SAT 91–98
[2023-07-01] MEDS: propofoL 1,000 MG/100 ML VIAL 3.63 MG IV (01:47)
[2023-07-01] MEDS: ALBUTEROL/IPRATROPIUM 3 ML AMPUL INH ×5 (03:28→23:36)
[2023-07-01] MEDS: dexmedeTOMIDine in 0.9 % NaCL 400 MCG/100 ML PLAST..BAG 11.95 MCG IV ×3 (04:16→18:10)
[2023-07-01] MEDS: ACETAMINOPHEN 325 MG TABLET 650 MG PO ×3 (04:40→18:01)
[2023-07-01 05:30] LABS: Add Manual Diff / Slide Review NO; Basophils Absolute Auto 100 /uL (0-100); Basophils Percent Auto 0.7 % (0-2); Eosinophils Absolute Auto 0 /uL (0-450); Eosinophils Percent Auto 0.1 % (2-4); Hemoglobin 11.4 g/dL (12.0-16.0); Lymphocytes Absolute Auto 1300 /uL (1100-4500); Lymphocytes Percent Auto 12.7 % (25-40); Mean Corpuscular HGB Conc 32.7 % (30-36); Mean Corpuscular Hemoglobin 33.1 PG (26-34); Mean Corpuscular Volume 101.2 fL (80-100); Monocytes Absolute Auto 800 /uL (0-900); Monocytes Percent Auto 8.2 % (3-14); Neutrophils Absolute Auto 7900 /uL (1500-7000); Neutrophils Percent Auto 78.3 % (50-75); Platelet Count 120 X10^3/uL (150-400); Red Blood Cell Count 3.45 X10^6/uL (4.0-5.2); Red Cell Distribution Width 19.6 % (11.6-14.8); White Blood Cell Count 10.2 X10^3/uL (4.5-11.0)
[2023-07-01 05:35] LABS: BUN Creatinine Ratio 36.9 (6-22); Blood Urea Nitrogen 52 mg/dL (7-17); Calcium 9.1 mg/dL (8.4-10.2); Carbon Dioxide 30 mmol/L (22-32); Chloride 118 mmol/L (98-107); Estimated Glomerular Filt Rate 42 mL/min (>60); Glucose 325 mg/dL (80-110); HEMOLYSIS < 15 (0-50); Potassium 4.2 mmol/L (3.4-5.1); Sodium 150 mmol/L (137-145)
[2023-07-01] MEDS: MEROPENEM 2 GM in SODIUM CHLORIDE 0.9% 100 ML IV ×3 (06:40→22:09)
[2023-07-01] MEDS: LEVOTHYROXINE 75 MCG TABLET PO (06:40)
[2023-07-01] MEDS: LEVOTHYROXINE 100 MCG TABLET PO (06:40)
[2023-07-01] MEDS: INSULIN LISPRO 100 UNIT/ML 3ML VIAL SUBCUT ×3 (06:41→17:26)
--- NOTE | 2023-07-01 07:22 | PC.NURSE ---
pt has been febrile this shift w/ Tmax 103.0; sputum and blood cultures collected; medicated w/ tylenol; cxr done
[2023-07-01] MEDS: POTASSIUM PHOSPHATE 30 MMOL in SODIUM CHLORIDE 0.9% 500 ML 127.5 MMOL IV (08:39)
[2023-07-01] MEDS: ASPIRIN EC 81 MG TABLET PO (08:43)
[2023-07-01] MEDS: FAMOTIDINE 20 MG/2 ML VIAL IV (08:43)
[2023-07-01] MEDS: predniSONE 20 MG TABLET 40 MG PO (08:43)
[2023-07-01] MEDS: HEPARIN 5,000 UNIT/ML VIAL 5000 UNIT SUBCUT ×2 (08:43→21:03)
[2023-07-01] MEDS: CHLORHEXIDINE GLUCONATE 15 ML CUP PO ×2 (08:43→21:03)
[2023-07-01] MEDS: INSULIN GLARGINE 100 UNIT/ML 3ML PEN 20 UNIT SUBCUT (08:44)
--- NOTE | 2023-07-01 10:47 | PM.PN.EICU ---
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 Patient Location: ICU Provider location (State): Other participants/roles: RN Interval history: Pt intubated, off propfole , on precedex , stable on Vent Current Medications Current Medications Medications: Home Medications acetaminophen 325 mg tablet (Tylenol) 650 mg PO TID 05/25/22 [History Confirmed 06/27/23] aspirin 81 mg tablet,delayed release 81 mg PO DAILY 05/25/22 [History Confirmed 06/27/23] budesonide-formoterol HFA 160 mcg-4.5 mcg/actuation aerosol inhaler 2 puff inhalation Q4H PRN Wheezing 05/25/22 [History Confirmed 06/27/23] bupropion HCl 150 mg tablet,12 hr sustained-release 150 mg PO BEDTIME 05/25/22 [History Confirmed 06/27/23] carvedilol 3.125 mg tablet 3.125 mg PO BID 05/25/22 [History Confirmed 06/27/23] cyanocobalamin (vitamin B-12) 500 mcg tablet 500 mcg PO DAILY 05/25/22 [History Confirmed 06/27/23] fenofibrate 160 mg tablet 160 mg PO DAILY 05/25/22 [History Confirmed 06/27/23] fluoxetine 20 mg tablet 20 mg PO DAILY 05/25/22 [History Confirmed 06/27/23] fluticasone propionate 50 mcg/actuation nasal spray,suspension 2 spray intranasal DAILY 05/25/22 [History Confirmed 06/27/23] gabapentin 300 mg capsule 300 mg PO BEDTIME 05/25/22 [History Confirmed 06/27/23] insulin glargine 100 unit/mL (3 mL) subcutaneous pen 22 unit SUBCUT BID 05/25/22 [History Confirmed 06/27/23] insulin lispro 100 unit/mL subcutaneous solution (Humalog U-100 Insulin) See Protocol SUBCUT TIDWM 05/25/22 [History Confirmed 06/27/23] loratadine 10 mg tablet 10 mg PO DAILY 05/25/22 [History Confirmed 06/27/23] magnesium oxide 200 mg PO DAILY 05/25/22 [History Confirmed 06/27/23] meclizine 25 mg tablet 25 mg PO Q8HR PRN Dizziness 05/25/22 [History Confirmed 06/27/23] montelukast 10 mg tablet 10 mg PO DAILY 05/25/22 [History Confirmed 06/27/23] nystatin 100,000 unit/gram topical powder 1 applic topical BID PRN Rash 05/25/22 [History Confirmed 06/27/23] ondansetron 4 mg disintegrating tablet 4 mg PO Q8H PRN Nausea 05/25/22 [History Confirmed 06/27/23] rosuvastatin 40 mg tablet 40 mg PO DAILY 05/25/22 [History Confirmed 06/27/23] sennosides 8.6 mg tablet (senna) 17.2 mg PO BEDTIME 05/25/22 [History Confirmed 06/27/23] tiotropium bromide 18 mcg capsule with inhalation device (Spiriva with HandiHaler) 1 cap inhalation DAILY 05/25/22 [History Confirmed 06/27/23] trazodone 50 mg tablet 25 mg PO BEDTIME 05/25/22 [History Confirmed 06/27/23] albuterol sulfate 90 mcg/actuation aerosol inhaler 4 puff inhalation Q4H PRN Shortness Of Breath Or Wheezing 08/15/22 [History Confirmed 06/27/23] levothyroxine 175 mcg tablet 175 mcg PO DAILY 08/15/22 [History Confirmed 06/27/23] potassium chloride 10 mEq tablet,extended release 20 meq PO DAILY 08/15/22 [History Confirmed 06/27/23] midodrine 5 mg tablet 10 mg PO BID 05/20/23 [History Confirmed 06/27/23] torsemide 20 mg DAILY 05/20/23 [History Confirmed 06/27/23] torsemide 10 mg tablet 10 mg PO BEDTIME 05/20/23 [History Confirmed 06/27/23] Visit Medications (administered) Generic Name Dose Route Start Last Admin Trade Name Freq PRN Reason Stop Dose Admin Acetaminophen 650 mg 06/27/23 16:50 07/01/23 04:40 Acetaminophen 325 Mg Tablet PO 650 mg Q6H PRN Administration Fever/Mild Pain (1-3) Albuterol/Ipratropium 3 ml 06/27/23 19:00 07/01/23 10:16 Albuterol/Ipratropium 3 Ml Ampul INH 3 ml [id number] JAY JAY Administration Aspirin 81 mg 06/28/23 09:00 07/01/23 08:43 Aspirin Ec 81 Mg Tablet PO 81 mg DAILY JAY JAY Administration Atorvastatin Calcium 80 mg 06/27/23 21:00 06/30/23 21:22 Atorvastatin 20 Mg Tablet PO 80 mg BEDTIME JAY JAY Administration Chlorhexidine Gluconate 15 ml 06/27/23 21:00 07/01/23 08:43 Chlorhexidine Gluconate 15 Ml Cup PO 15 ml BID JAY JAY Administration Famotidine 20 mg 06/29/23 09:00 07/01/23 08:43 Famotidine 20 Mg/2 Ml Vial IV 20 mg DAILY JAY JAY Administration Fentanyl 50 mcg 06/27/23 12:17 06/27/23 16:21 Fentanyl 100 Mcg/2 Ml Inj IV 50 mcg Q30M PRN Administration Pain, Severe (7-10) Heparin Sodium (Porcine) 5,000 unit 06/30/23 10:45 07/01/23 08:43 Heparin 5,000 Unit/Ml Vial SUBCUT 5,000 unit BID JAY JAY Administration Propofol 1,000 mg in 100 mls @ 7.26 mls/hr 06/27/23 12:30 07/01/23 08:55 Propofol IV 0 mcg/kg/min TITRATE JAY JAY 0 mls/hr Titration Protocol 10 MCG/KG/MIN NOREPINEPHRINE BITARTRATE/D5W 4 mg in 250 mls @ 45.375 mls/hr 06/27/23 13:45 06/29/23 06:30 Levophed IV 0 mcg/kg/min TITRATE JAY JAY 0 mls/hr Titration Protocol 0.1 MCG/KG/MIN dexmedeTOMIDine in 0.9 % NaCL 400 mcg in 100 mls @ 5.975 mls/hr 06/27/23 19:30 07/01/23 04:16 Precedex IV 0.4 mcg/kg/hr TITRATE JAY JAY 11.95 mls/hr Administration Protocol 0.2 MCG/KG/HR Meropenem 2 gm/ Sodium 100 mls @ 200 mls/hr 06/30/23 14:00 07/01/23 06:40 Chloride IV 200 mls/hr Q8H JAY JAY Administration Potassium Phosphate 30 mmol/ 510 mls @ 127.5 mls/hr 07/01/23 08:10 07/01/23 08:39 Sodium Chloride IV 07/01/23 12:09 127.5 mls/hr NOW ONE Administration Insulin Glargine 20 unit 06/30/23 12:15 07/01/23 08:44 Insulin Glargine 100 Unit/Ml 3ml Pen SUBCUT 20 unit BID JAY JAY Administration Insulin Human Lispro 0 unit 06/30/23 12:00 07/01/23 06:41 Insulin Lispro 100 Unit/Ml 3ml Vial SUBCUT 10 unit Q6HR JAY JAY Administration Protocol Levothyroxine Sodium 75 mcg 06/28/23 06:00 07/01/23 06:40 Levothyroxine 75 Mcg Tablet PO 75 mcg DAILY@0600 JAY JAY Administration Levothyroxine Sodium 100 mcg 06/28/23 06:00 07/01/23 06:40 Levothyroxine 100 Mcg Tablet PO 100 mcg DAILY@0600 JAY JAY Administration Prednisone 40 mg 06/30/23 12:15 07/01/23 08:43 Prednisone 20 Mg Tablet PO 40 mg DAILY JAY JAY Administration Objective Ventilator Parameters: Ventilator Settings FiO2 40 RT Vent Frequency 0 Ventilator Tidal Volume 370 Exhaled Vt/kg IBW 6.5 Positive End Expiratory 5 Pressure Ventilator Pressure Support 10 Inspiratory Phase Time 0.95 I:E Ratio 1:2.9 Patient Position HOB >= 30 degrees Labs 07/01/23 04:45 07/01/23 04:45 Labs: Laboratory Results - last 24 hr 06/27/23 06/30/23 06/30/23 08:07 08:46 09:27 WBC RBC Hgb Hct MCV MCH MCHC RDW Plt Count Neut % (Auto) Lymph % (Auto) [place] % (Auto) Eos % (Auto) Baso % (Auto) Neut # (Auto) Lymph # (Auto) [place] # (Auto) Eos # (Auto) Baso # (Auto) APTT Cancelled ABG Sample Site ABG pH ABG pCO2 ABG pO2 ABG HCO3 ABG Total CO2 ABG O2 Saturation ABG Base Excess FiO2 Sodium Potassium Chloride Carbon Dioxide BUN Creatinine Estimated GFR BUN/Creatinine Ratio Glucose Calcium Phosphorus Magnesium Total Bilirubin AST ALT Alkaline Phosphatase Total Protein Albumin Globulin Albumin/Globulin Ratio Triglycerides Cholesterol LDL Cholesterol, Calc HDL Cholesterol Urine Color Yellow Urine Appearance Cloudy Urine pH 5.5 Ur Specific [place] 1.025 Urine Protein 1+ H Urine Glucose (UA) 1+ H Urine Ketones Negative Urine Occult Blood 2+ H Urine Nitrate Negative Urine Bilirubin Negative Urine Urobilinogen 0.2 Ur Leukocyte Esterase 3+ H Urine RBC None seen Urine WBC 30-100/hpf H Ur Squamous Epith Cells None seen Urine Bacteria Many (>30) H Ur Culture Indicated? Specimen cultured Vol Urine Centrifuged 10ml (spun) Vancomycin Peak Vancomycin Trough 18.2 06/30/23 06/30/23 06/30/23 10:52 13:00 20:33 WBC RBC Hgb Hct MCV MCH MCHC RDW Plt Count Neut % (Auto) Lymph % (Auto) [place] % (Auto) Eos % (Auto) Baso % (Auto) Neut # (Auto) Lymph # (Auto) [place] # (Auto) Eos # (Auto) Baso # (Auto) APTT ABG Sample Site Right brachial ABG pH 7.50 H ABG pCO2 39.5 ABG pO2 62 L ABG HCO3 31 H ABG Total CO2 32 H ABG O2 Saturation 93 L ABG Base Excess 8.0 H FiO2 40 Sodium 148 H Potassium 4.3 Chloride 116 H Carbon Dioxide 29 BUN 52 H Creatinine 1.49 H Estimated GFR 40 L BUN/Creatinine Ratio 34.9 H Glucose 370 H Calcium 9.4 Phosphorus 1.6 L D Magnesium 2.9 H Total Bilirubin 0.6 AST 20 ALT 12 Alkaline Phosphatase 49 Total Protein 6.4 Albumin 3.5 Globulin 2.9 Albumin/Globulin Ratio 1.2 Triglycerides 599 H Cholesterol 166 LDL Cholesterol, Calc TNP HDL Cholesterol 30 L Urine Color Urine Appearance Urine pH Ur Specific [place] Urine Protein Urine Glucose (UA) Urine Ketones Urine Occult Blood Urine Nitrate Urine Bilirubin Urine Urobilinogen Ur Leukocyte Esterase Urine RBC Urine WBC Ur Squamous Epith Cells Urine Bacteria Ur Culture Indicated? Vol Urine Centrifuged Vancomycin Peak 51.3 H* Vancomycin Trough 06/30/23 07/01/23 20:45 04:45 WBC 9.7 10.2 RBC 3.42 L 3.45 L Hgb 11.2 L 11.4 L Hct 34.4 L 35.0 L MCV 100.7 H 101.2 H MCH 32.8 33.1 MCHC 32.6 32.7 RDW 19.8 H 19.6 H Plt Count 131 L 120 L Neut % (Auto) 85.6 H 78.3 H Lymph % (Auto) 8.2 L 12.7 L [place] % (Auto) 6.0 8.2 Eos % (Auto) 0.0 L 0.1 L Baso % (Auto) 0.2 0.7 Neut # (Auto) 8300 H 7900 H Lymph # (Auto) 800 L 1300 [place] # (Auto) 600 800 Eos # (Auto) 0 0 Baso # (Auto) 0 100 APTT ABG Sample Site ABG pH ABG pCO2 ABG pO2 ABG HCO3 ABG Total CO2 ABG O2 Saturation ABG Base Excess FiO2 Sodium 150 H Potassium 4.2 Chloride 118 H Carbon Dioxide 30 BUN 52 H Creatinine 1.41 H Estimated GFR 42 L BUN/Creatinine Ratio 36.9 H Glucose 325 H Calcium 9.1 Phosphorus Magnesium Total Bilirubin AST ALT Alkaline Phosphatase Total Protein Albumin Globulin Albumin/Globulin Ratio Triglycerides Cholesterol LDL Cholesterol, Calc HDL Cholesterol Urine Color Urine Appearance Urine pH Ur Specific [place] Urine Protein Urine Glucose (UA) Urine Ketones Urine Occult Blood Urine Nitrate Urine Bilirubin Urine Urobilinogen Ur Leukocyte Esterase Urine RBC Urine WBC Ur Squamous Epith Cells Urine Bacteria Ur Culture Indicated? Vol Urine Centrifuged Vancomycin Peak Vancomycin Trough Exam Vital Signs (past 8 hours): - 07/01/23 03:00 07/01/23 03:00 07/01/23 03:15 Temperature Pulse Rate 69 68 Respiratory Rate 16 16 Blood Pressure 124/65 Pulse Oximetry 95 95 Oxygen Delivery Method 07/01/23 03:15 07/01/23 03:30 07/01/23 03:30 Temperature Pulse Rate 64 Respiratory Rate 16 Blood Pressure 119/60 112/61 Pulse Oximetry 94 Oxygen Delivery Method 07/01/23 03:45 07/01/23 03:45 07/01/23 04:00 Temperature Pulse Rate 65 Respiratory Rate 16 Blood Pressure 113/57 L Pulse Oximetry 94 Oxygen Delivery Method Mechanical Ventilation 07/01/23 04:00 07/01/23 04:00 07/01/23 04:15 Temperature Pulse Rate 71 71 Respiratory Rate 17 17 Blood Pressure 115/58 L Pulse Oximetry 94 93 Oxygen Delivery Method 07/01/23 04:15 07/01/23 04:30 07/01/23 04:30 Temperature Pulse Rate 69 Respiratory Rate 16 Blood Pressure 121/58 L 120/58 L Pulse Oximetry 94 Oxygen Delivery Method 07/01/23 04:40 07/01/23 04:45 07/01/23 04:45 Temperature 102.0 F H Pulse Rate 68 Respiratory Rate 15 Blood Pressure 123/62 Pulse Oximetry 94 Oxygen Delivery Method 07/01/23 05:00 07/01/23 05:00 07/01/23 05:10 Temperature 101.6 F H Pulse Rate 87 Respiratory Rate 18 Blood Pressure 114/63 Pulse Oximetry 93 Oxygen Delivery Method 07/01/23 05:15 07/01/23 05:15 07/01/23 05:30 Temperature Pulse Rate 71 73 Respiratory Rate 16 23 Blood Pressure 115/65 Pulse Oximetry 94 94 Oxygen Delivery Method 07/01/23 05:30 07/01/23 05:45 07/01/23 05:45 Temperature Pulse Rate 69 Respiratory Rate 17 Blood Pressure 100/55 L 109/61 Pulse Oximetry 95 Oxygen Delivery Method 07/01/23 06:00 07/01/23 06:00 07/01/23 06:15 Temperature Pulse Rate 70 Respiratory Rate 16 Blood Pressure 112/60 110/58 L Pulse Oximetry 94 Oxygen Delivery Method 07/01/23 06:15 07/01/23 06:30 07/01/23 06:30 Temperature Pulse Rate 64 62 Respiratory Rate 16 16 Blood Pressure 104/54 L Pulse Oximetry 94 94 Oxygen Delivery Method 07/01/23 06:45 07/01/23 06:45 07/01/23 07:00 Temperature Pulse Rate 65 62 Respiratory Rate 16 16 Blood Pressure 107/57 L Pulse Oximetry 94 95 Oxygen Delivery Method 07/01/23 07:00 07/01/23 07:15 07/01/23 07:15 Temperature Pulse Rate 63 Respiratory Rate 16 Blood Pressure 104/56 L 99/56 L Pulse Oximetry 96 Oxygen Delivery Method 07/01/23 07:30 07/01/23 07:30 07/01/23 07:45 Temperature Pulse Rate 64 66 Respiratory Rate 16 16 Blood Pressure 111/56 L Pulse Oximetry 96 96 Oxygen Delivery Method 07/01/23 07:45 07/01/23 08:00 07/01/23 08:00 Temperature Pulse Rate 63 Respiratory Rate 23 Blood Pressure 108/60 115/58 L Pulse Oximetry 96 Oxygen Delivery Method 07/01/23 08:00 07/01/23 08:15 07/01/23 08:15 Temperature Pulse Rate 84 Respiratory Rate 16 Blood Pressure 114/58 L Pulse Oximetry 96 Oxygen Delivery Method Mechanical Ventilation 07/01/23 08:30 07/01/23 08:30 07/01/23 08:45 Temperature Pulse Rate 62 62 Respiratory Rate 16 16 Blood Pressure 111/58 L Pulse Oximetry 96 95 Oxygen Delivery Method 07/01/23 08:45 07/01/23 09:00 07/01/23 09:00 Temperature Pulse Rate 61 Respiratory Rate 16 Blood Pressure 105/56 L 100/57 L Pulse Oximetry 95 Oxygen Delivery Method 07/01/23 09:15 07/01/23 09:15 07/01/23 09:18 Temperature 101.2 F H Pulse Rate 61 Respiratory Rate 16 Blood Pressure 104/56 L Pulse Oximetry 95 Oxygen Delivery Method 07/01/23 09:30 07/01/23 09:30 07/01/23 09:45 Temperature Pulse Rate 63 Respiratory Rate 16 Blood Pressure 98/55 L 97/52 L Pulse Oximetry 96 Oxygen Delivery Method 07/01/23 09:45 07/01/23 10:00 07/01/23 10:00 Temperature Pulse Rate 61 61 Respiratory Rate 16 16 Blood Pressure 103/58 L Pulse Oximetry 96 96 Oxygen Delivery Method 07/01/23 10:15 07/01/23 10:15 07/01/23 10:16 Temperature Pulse Rate 63 62 Respiratory Rate 16 16 Blood Pressure 109/57 L Pulse Oximetry 96 96 Oxygen Delivery Method Mechanical Ventilation Fraction of Inspired Oxygen 49 SaO2/FiO2 Ratio 193 Oxygen Delivery Method Mechanical Ventilation Quality TeleICU VTE Deep Vein Thrombosis/Pulmonary Embolism Present on Admission: No Assessment & Plan Assessment and plan (1) Septic shock: Status: Acute Plan # septic vs cardiogenic shock -ESBL urine per nurse, pending final Cx and blood Cx - HD stable -continue Meropenem and Dc vanc # acute on chronic hypoxic and hypercapnic respiratory failure -at home on 2L O2 baseline -minimal vent sats, 92%, no secretions/wheezing -sat/sbt today -will check cxr/abg tomorrow # BLANCA on CKD -improving -adeqaute urine output ( - 900 ml/24 hr) -monitor and renal dose meds # COPD -continue nebs prn, no wheezing noted per nurse # DM2, POA and stable -keep glucose 140-180s -Continue adjusting lantus dose/ needs further adjustment today, change to Q3 hr accucheck # HFrEF -no nw echo I spent a total of 30 minutes of critical care time on this patient's care today; this time is exclusive of procedural time. Code status is full code. DVT prophylaxis with heparin subcutaneous. Proxy is daughter Roxy. I have reviewed home meds and used all available resources to reconcile the home meds. Dispo: ICU
--- NOTE | 2023-07-01 13:47 | CM.DPNOTE ---
DCP Cont Patient discussed in morning rounds; patient is not being considered for extubation today. CM team will continue to follow clinical course closely. Plan: Discharge back to [facility] via w/c vs BLS anticipated. NEO
--- NOTE | 2023-07-01 14:58 | PM.PN.1 ---
Subjective Subjective Interval history: Patient still intubated. Febrile overnight to 103. Recultured. Na 150 increased free water via tube feedings. Sugars still high, increased lantus to 30 BID, bridge with NPH 15 U now. Exam Vital Signs (past 8 hours): - 07/01/23 07:00 07/01/23 07:00 07/01/23 07:15 Temperature Pulse Rate 62 63 Respiratory Rate 16 16 Blood Pressure 104/56 L Pulse Oximetry 95 96 Oxygen Delivery Method 07/01/23 07:15 07/01/23 07:30 07/01/23 07:30 Temperature Pulse Rate 64 Respiratory Rate 16 Blood Pressure 99/56 L 111/56 L Pulse Oximetry 96 Oxygen Delivery Method 07/01/23 07:45 07/01/23 07:45 07/01/23 08:00 Temperature Pulse Rate 66 Respiratory Rate 16 Blood Pressure 108/60 115/58 L Pulse Oximetry 96 Oxygen Delivery Method 07/01/23 08:00 07/01/23 08:00 07/01/23 08:15 Temperature Pulse Rate 63 84 Respiratory Rate 23 16 Blood Pressure Pulse Oximetry 96 96 Oxygen Delivery Method Mechanical Ventilation 07/01/23 08:15 07/01/23 08:30 07/01/23 08:30 Temperature Pulse Rate 62 Respiratory Rate 16 Blood Pressure 114/58 L 111/58 L Pulse Oximetry 96 Oxygen Delivery Method 07/01/23 08:45 07/01/23 08:45 07/01/23 09:00 Temperature Pulse Rate 62 Respiratory Rate 16 Blood Pressure 105/56 L 100/57 L Pulse Oximetry 95 Oxygen Delivery Method 07/01/23 09:00 07/01/23 09:15 07/01/23 09:15 Temperature Pulse Rate 61 61 Respiratory Rate 16 16 Blood Pressure 104/56 L Pulse Oximetry 95 95 Oxygen Delivery Method 07/01/23 09:18 07/01/23 09:30 07/01/23 09:30 Temperature 101.2 F H Pulse Rate 63 Respiratory Rate 16 Blood Pressure 98/55 L Pulse Oximetry 96 Oxygen Delivery Method 07/01/23 09:45 07/01/23 09:45 07/01/23 10:00 Temperature Pulse Rate 61 61 Respiratory Rate 16 16 Blood Pressure 97/52 L Pulse Oximetry 96 96 Oxygen Delivery Method 07/01/23 10:00 07/01/23 10:15 07/01/23 10:15 Temperature Pulse Rate 63 Respiratory Rate 16 Blood Pressure 103/58 L 109/57 L Pulse Oximetry 96 Oxygen Delivery Method 07/01/23 10:16 07/01/23 12:00 07/01/23 12:00 Temperature 101.4 F H Pulse Rate 62 Respiratory Rate 16 Blood Pressure Pulse Oximetry 96 Oxygen Delivery Method Mechanical Ventilation Mechanical Ventilation 07/01/23 12:03 07/01/23 12:33 07/01/23 13:04 Temperature 101.4 F H 100.9 F H 100.9 F H Pulse Rate Respiratory Rate Blood Pressure Pulse Oximetry Oxygen Delivery Method Fraction of Inspired Oxygen 49 SaO2/FiO2 Ratio 193 Oxygen Delivery Method Mechanical Ventilation Narrative Exam Narrative: GEN: Intubated and sedated, obese HEENT: moist mucous membranes, PERRL NECK: trachea midline, no JVD CV: regular rate and rhythm, no murmurs PULM: Coarse breath sounds bilaterally ABD: soft, nontender, nondistended, no organomegaly EXT: warm and well perfused with no edema NEURO: Unobtainable Objective Labs 07/01/23 04:45 07/01/23 04:45 Labs: Laboratory Results - last 24 hr 06/27/23 06/30/23 06/30/23 08:07 08:46 20:33 WBC RBC Hgb Hct MCV MCH MCHC RDW Plt Count Neut % (Auto) Lymph % (Auto) [place] % (Auto) Eos % (Auto) Baso % (Auto) Neut # (Auto) Lymph # (Auto) [place] # (Auto) Eos # (Auto) Baso # (Auto) APTT Cancelled Sodium 148 H Potassium 4.3 Chloride 116 H Carbon Dioxide 29 BUN 52 H Creatinine 1.49 H Estimated GFR 40 L BUN/Creatinine Ratio 34.9 H Glucose 370 H Calcium 9.4 Phosphorus 1.6 L D Magnesium 2.9 H Total Bilirubin 0.6 AST 20 ALT 12 Alkaline Phosphatase 49 Total Protein 6.4 Albumin 3.5 Globulin 2.9 Albumin/Globulin Ratio 1.2 Triglycerides 599 H Cholesterol 166 LDL Cholesterol, Calc TNP HDL Cholesterol 30 L Urine Color Yellow Urine Appearance Cloudy Urine pH 5.5 Ur Specific [place] 1.025 Urine Protein 1+ H Urine Glucose (UA) 1+ H Urine Ketones Negative Urine Occult Blood 2+ H Urine Nitrate Negative Urine Bilirubin Negative Urine Urobilinogen 0.2 Ur Leukocyte Esterase 3+ H Urine RBC None seen Urine WBC 30-100/hpf H Ur Squamous Epith Cells None seen Urine Bacteria Many (>30) H Ur Culture Indicated? Specimen cultured Vol Urine Centrifuged 10ml (spun) 06/30/23 07/01/23 20:45 04:45 WBC 9.7 10.2 RBC 3.42 L 3.45 L Hgb 11.2 L 11.4 L Hct 34.4 L 35.0 L MCV 100.7 H 101.2 H MCH 32.8 33.1 MCHC 32.6 32.7 RDW 19.8 H 19.6 H Plt Count 131 L 120 L Neut % (Auto) 85.6 H 78.3 H Lymph % (Auto) 8.2 L 12.7 L [place] % (Auto) 6.0 8.2 Eos % (Auto) 0.0 L 0.1 L Baso % (Auto) 0.2 0.7 Neut # (Auto) 8300 H 7900 H Lymph # (Auto) 800 L 1300 [place] # (Auto) 600 800 Eos # (Auto) 0 0 Baso # (Auto) 0 100 APTT Sodium 150 H Potassium 4.2 Chloride 118 H Carbon Dioxide 30 BUN 52 H Creatinine 1.41 H Estimated GFR 42 L BUN/Creatinine Ratio 36.9 H Glucose 325 H Calcium 9.1 Phosphorus Magnesium Total Bilirubin AST ALT Alkaline Phosphatase Total Protein Albumin Globulin Albumin/Globulin Ratio Triglycerides Cholesterol LDL Cholesterol, Calc HDL Cholesterol Urine Color Urine Appearance Urine pH Ur Specific [place] Urine Protein Urine Glucose (UA) Urine Ketones Urine Occult Blood Urine Nitrate Urine Bilirubin Urine Urobilinogen Ur Leukocyte Esterase Urine RBC Urine WBC Ur Squamous Epith Cells Urine Bacteria Ur Culture Indicated? Vol Urine Centrifuged [facility] Medical History PONCE (obstructive sleep apnea) Chronic hypoxemic respiratory failure COPD (chronic obstructive pulmonary disease) DM2 (diabetes mellitus, type 2) HTN (hypertension) Thyroiditis Systolic and diastolic CHF, chronic Obesity Surgical History S/P hernia surgery Family History Mother No pertinent past medical history Father No pertinent past medical history Social History household members: other Smoking Status: Former smoker alcohol intake: former Assessment & Plan Assessment & Plan narrative: # septic shock, improving -BP down to 51/32 in ED requiring levophed -source unclear, PNA vs UTI as UA has pyuria and CXR has possible LLL infiltrate, procal up to 0.28. Cultures negative except for urine with ESBL E. coli. May be colonized but will treat given presentation with continued carbapenem. -will use meropenem to cover for ESBL -BNP 14k, last EF 20-25% in Jan 2023, rechecked limited echo and EF 15-20% -Levophed started in ED, now weaned off -appreciate tele ICU consult -blood cultures with no growth. repeat blood cultures last night with 103F fever. No growth currently. # possible NSTEMI -troponin peaked at 0.537, now downtrending -likely due to septic shock -started heparin drip x48 hours -echo with EF 15-20% and no significant change from prior # acute on chronic hypoxic and hypercapnic respiratory failure -at home on 2L O2 baseline -satting 60% by EMS -required Bipap in ED, then intubated due to worsening hypercapnea -solumedrol 60mg IV BID for possible COPD exac changed to prednisone 40 mg daily for 5 days. -will continue with daily trials to check for readiness for extubation. # BLANCA on CKD, improving -creatinine 1.81 and baseline 1.3, now improved to 1.44. -s/p 1L bolus in ED # COPD -continue nebs prn # DM2, POA and stable -increase lantus to BID from daily, as at home she is on BID dosing. Will do this today, assess response. May need to increase lantus further. -goal 70-180 BG # CHFrEF -last EF 20-25%, unclear if in cardiogenic shock as BNP only 2200 and previously 22k -repeat echo ordered and shows EF 15-20% # morbid obesity, POA. I spent a total of 35 minutes of critical care time on this patient's care today; this time is exclusive of procedural time. Code status is full code. DVT prophylaxis with heparin subcutaneous. Proxy is daughter Roxy. I have reviewed home meds and used all available resources to reconcile the home meds. Dispo: ICU, will remain ICU status. Quality VTE Deep Vein Thrombosis/Pulmonary Embolism Present on Admission: No
[2023-07-01] MEDS: INSULIN NPH 100 UNIT/ML 10ML VIAL 15 UNIT SUBCUT (15:07)
[2023-07-01] MEDS: polyethylene glycoL 3350 17 GM POWD.PACK PO (16:03)
[2023-07-01] MEDS: SENNOSIDES 8.6 MG TABLET PO (16:04)
--- NOTE | 2023-07-01 19:43 | PM.ICURNDS ---
- :: This patient was seen via real time interactive two-way audiovisual telecommunication. Note: [facility] TELEINTENSIVIST MULTIDISCIPLINARY ROUNDS NOTE Most recent labs, imaging studies, current treatment plan reviewed with the bedside team (RN). Patient remains intubated, on minimal settings with FiO2 40%, PEEP 5. On low dose Precedex gtt and comfortable.. Currently off pressors but BP borderline. Plan to restart pressors to maintain MAP >65. No other acute issues or needs per RN . Discussed w/ Bedside RN and charge nurse. Valdemar Pacheco MD eICU, Critical Care Medicine
[2023-07-01] MEDS: ATORVASTATIN 20 MG TABLET 80 MG PO (21:03)
[2023-07-01] MEDS: INSULIN GLARGINE 100 UNIT/ML 3ML PEN 30 UNIT SUBCUT (21:04)
[2023-07-01] MEDS: SODIUM CHLORIDE 0.9% FLUSH 10 ML IV (21:04)
[2023-07-01] MEDS: NOREPINEPHRINE BITARTRATE/D5W 4 MG/250 ML PLAST..BAG 4.538 MG IV (23:19)
[2023-07-02] VITALS (86 sets, daily range): BP systolic 82–123; BP diastolic 44–80; PULSE 58–85; RESP 0–32; TEMP 37.2–39; O2SAT 92–98
[2023-07-02] MEDS: INSULIN LISPRO 100 UNIT/ML 3ML VIAL SUBCUT ×3 (00:21→13:00)
[2023-07-02] MEDS: dexmedeTOMIDine in 0.9 % NaCL 400 MCG/100 ML PLAST..BAG 11.95 MCG IV ×2 (01:34→17:22)
[2023-07-02] MEDS: ALBUTEROL/IPRATROPIUM 3 ML AMPUL INH ×3 (03:03→15:30)
[2023-07-02] MEDS: ACETAMINOPHEN 325 MG TABLET 650 MG PO ×2 (03:42→13:12)
[2023-07-02 05:03] LABS: Add Manual Diff / Slide Review NO; Basophils Absolute Auto 100 /uL (0-100); Basophils Percent Auto 0.6 % (0-2); Eosinophils Absolute Auto 0 /uL (0-450); Eosinophils Percent Auto 0.1 % (2-4); Hematocrit 35.9 % (36-46); Hemoglobin 11.4 g/dL (12.0-16.0); Lymphocytes Absolute Auto 1700 /uL (1100-4500); Lymphocytes Percent Auto 12.4 % (25-40); Mean Corpuscular HGB Conc 31.8 % (30-36); Mean Corpuscular Volume 100.5 fL (80-100); Monocytes Absolute Auto 800 /uL (0-900); Monocytes Percent Auto 5.6 % (3-14); Neutrophils Absolute Auto 11400 /uL (1500-7000); Neutrophils Percent Auto 81.3 % (50-75); Platelet Count 107 X10^3/uL (150-400); Red Blood Cell Count 3.58 X10^6/uL (4.0-5.2); Red Cell Distribution Width 19.3 % (11.6-14.8); White Blood Cell Count 14.1 X10^3/uL (4.5-11.0)
[2023-07-02 05:08] LABS: BUN Creatinine Ratio 37.1 (6-22); Blood Urea Nitrogen 46 mg/dL (7-17); Calcium 8.9 mg/dL (8.4-10.2); Carbon Dioxide 30 mmol/L (22-32); Chloride 114 mmol/L (98-107); Estimated Glomerular Filt Rate 50 mL/min (>60); Glucose 239 mg/dL (80-110); HEMOLYSIS < 15 (0-50); Potassium 4.4 mmol/L (3.4-5.1); Sodium 145 mmol/L (137-145)
[2023-07-02 05:09] LABS: Phosphorous 2.8 mg/dL (2.8-4.1)
[2023-07-02] MEDS: MEROPENEM 2 GM in SODIUM CHLORIDE 0.9% 100 ML IV ×2 (05:42→13:54)
[2023-07-02] MEDS: LEVOTHYROXINE 100 MCG TABLET PO (05:48)
[2023-07-02] MEDS: LEVOTHYROXINE 75 MCG TABLET PO (05:48)
--- NOTE | 2023-07-02 06:25 | PC.NURSE ---
[facility] Director Note-Patient remains on ventilator, no changes from previous settings-FIO2 40% TV 370 PEEP 5 RR 16, occasionally will override vent. Precedex at 0.4mcg/kg/hr most of the night, titrated down to 0.3mcg few times d/t bradycardia and hypotension, but ultimately restarted Levophed to keep MAP > 65, currently infusing at 0.01mcg/kg/min. Patient opens her eyes to name, briefly makes eye contact, moves head back and forth, wiggles feet, attempts to open mouth during oral care, does not follow any other commands at this time. Tmax 101.9, cold clothe to forehead, fan, and Tylenol given. Tolerating TF, no BM.
--- NOTE | 2023-07-02 08:10 | PC.NURSE ---
Addendum entered by Danelle Ulloa R.N. 07/02/23 17:59: Transport team arrived at approximately 1700, VSS. Report given to RN. Pt transported to stretcher via mechanical lift. Norepinephrine, propofol, and dexmedetomidine transfered to portable pumps. Hypotensive upon transfer to stretcher, norepinephrine increased per protocol. Pt transported to EMS vehicle by team at approximately 1745. Report given to Camila at [facility] ICU. Pt to go to [place] [id number] ICU at [facility]. Addendum entered by Danelle Ulloa R.N. 07/02/23 13:14: Pt transported to CT. Pt moving head back and forth, slightly agitated. 1135 Propofol restarted, 5mcg/kg/min. 1145 increased to 10mcg/kg/min when transferring from bed to CT bed. Pt continued to be agitated, increased to 15 at 1150. Pt transferred back to bed, transported to back to room 230. Titrated propofol to 5mcg/kig/min to RASS of -1 at 1200. Unable to scan med during transport. Original Note: Day shift: Pt intubated and sedated. BP MAP >65. Pedal pulse on R foot palpable, L foot not palpable. Unable to find via doppler. Provider notified. BP removed from L leg/ankle, placed elsewhere. Vent settings: 40% FiO2, VT 370, PEEP 5, Rate 16, O2 97%. Care ongoing.
[2023-07-02 08:38] LABS: Alanine Aminotransferase 88 IU/L (<35); Albumin 3.2 g/dL (3.5-5.0); Albumin Globulin Ratio 1.2 (1.0-2.8); Alkaline Phosphatase 77 U/L (38-126); Aspartate Aminotransferase 171 IU/L (14-36); Bilirubin Total 0.7 mg/dL (0.2-1.3); Bilirubin Unconjugated 0.2 mg/dL (0.0-1.1); Globulin 2.6 g/dL (1.7-4.1); HEMOLYSIS < 15 (0-50); Total Protein 5.8 g/dL (6.3-8.2)
--- NOTE | 2023-07-02 09:00 | DI.CT.S_ITS ---
PROCEDURE: CT CHEST ABD PEL W CON INDICATIONS: high fever on abx, no bowel movements, cont resp failure TECHNIQUE: Prior to this study, contrast was given via the gastric tube. After the administration of intravenous contrast, 5 mm thick sections acquired from the lung apices to the symphysis. 5 mm coronal and sagittal reformats were performed, with additional 7 mm MIP reformats through the lungs. For radiation dose reduction, the following was used: automated exposure control, adjustment of mA and/or kV according to patient size. COMPARISON: [facility], CT, CT CHEST WO CON, 01/19/2023, 14:51. [facility], CT, CT ABDOMEN PELVIS W CON, 01/19/2023, 13:58. FINDINGS: Image quality: This study is limited by body habitus. CHEST: Lower Neck: No enlarged lymph nodes. Thyroid: The thyroid is not well seen. Axillae: No enlarged lymph nodes. Chest Wall: Unremarkable. Lungs and Pleura: This patient is intubated, with the endotracheal tube tip seen 2 cm above the ron. No pneumothorax or pleural effusions. Mild dependent consolidation can be seen in both lung bases, which is worst within the left lower lobe. Heart: Heart size is normal. No pericardial effusion. Thoracic Vessels: The aorta and pulmonary arteries demonstrate normal size. Mediastinum and Ioana: No enlarged lymph nodes. Esophagus: No wall thickening. No hiatal hernia. ABDOMEN: Liver: No solid mass. Diffuse fatty liver infiltration is noted. Gallbladder: Mild gallbladder wall thickening is seen. There is moderate pericholecystic fluid. Biliary ducts: No biliary dilation. Pancreas: No ductal dilation. Spleen: Size is within normal limits. Adrenal Glands: No adrenal nodules. Kidneys and Ureters: No hydronephrosis. No solid mass. No complex renal cystic lesion which requires follow up. Stomach and Bowel: The tip of the gastric tube can be seen within the distal stomach. The stomach is decompressed at the time of this study, limiting its evaluation. No dilated loops of small bowel are seen. A relatively prominent amount of stool can be seen within the colon, particularly proximally. No colonic wall thickening can be seen. Peritoneum: No abnormal intraperitoneal fluid. No free air. Ventral Wall: A moderate periumbilical hernia is seen, containing fat. Abdominal Nodes: No retroperitoneal or mesenteric adenopathy by size criteria. Vessels: Aorta and inferior vena cava are normal in size. PELVIS: Pelvic Organs: The uterus appears normal for age. No adnexal masses are seen. Bladder: Fluoroscopic images were obtained during an operative procedure and submitted for interpretation following the completion of the procedure. Pelvic Nodes: No enlarged lymph nodes. Miscellaneous: No inguinal hernias are seen. Bones: At least 1 remote rib fracture can be seen on the left. No aggressive osseous abnormality. Age-appropriate bony degenerative changes are seen. IMPRESSION: Abnormal appearing gallbladder, with mild gallbladder wall thickening and moderate pericholecystic fluid. No radiopaque gallstones are seen. - If it would be helpful for clinical management decision making in this patient with this given history, please consider a dedicated right upper quadrant ultrasound. The tip of the endotracheal tube is seen 2 cm above the ron. Apparent atelectasis seen at the lung bases, left worse than right. A relatively prominent amount of stool can be seen within the colon. Please consider constipation. Additional findings: Remote left-sided rib fracture Moderate fat containing periumbilical hernia Babcock catheter Dictated by: Ronald So M.D. on 07/02/2023 at 11:03 Approved by: Ronald So M.D. on 07/02/2023 at 11:10
[2023-07-02] MEDS: CHLORHEXIDINE GLUCONATE 15 ML CUP PO (09:29)
[2023-07-02] MEDS: FAMOTIDINE 20 MG/2 ML VIAL IV (09:29)
[2023-07-02] MEDS: HEPARIN 5,000 UNIT/ML VIAL 5000 UNIT SUBCUT (09:29)
[2023-07-02] MEDS: ASPIRIN EC 81 MG TABLET PO (09:30)
[2023-07-02] MEDS: predniSONE 20 MG TABLET 40 MG PO (09:30)
[2023-07-02] MEDS: SODIUM CHLORIDE 0.9% FLUSH 10 ML IV (09:31)
[2023-07-02] MEDS: INSULIN GLARGINE 100 UNIT/ML 3ML PEN 30 UNIT SUBCUT (09:31)
[2023-07-02 09:36] LABS: pH VBG 7.24 (7.33-7.43)
[2023-07-02 09:37] LABS: PCO2 VBG > 86.0 mmHg (45-50)
[2023-07-02 09:38] LABS: Fractionated Inspired Oxygen 50; HCO3 VBG 42 mmol/L (24-28); Oxygen Saturation VBG 38 % (70-75); PO2 VBG 28 mmHg (35-45); Total CO2 VBG 45 mmol/L (24-29)
--- NOTE | 2023-07-02 12:31 | P.TELICUPN_ITS ---
Subjective Subjective IF CAMERA ACTIVATED, patient seen via real-time interactive audiovisual communication: Camera activated Consent obtained for tele-sub arc operator care: Yes Patient Location: ICU Provider location (State): [place] Other participants/roles: RN Interval history: patients metnal status remains quite poor. spiking fevers again and wbc trendg up. she is pending a CT a/p Current Medications Current Medications Medications: Home Medications acetaminophen 325 mg tablet (Tylenol) 650 mg PO TID 05/25/22 [History Confirmed 06/27/23] aspirin 81 mg tablet,delayed release 81 mg PO DAILY 05/25/22 [History Confirmed 06/27/23] budesonide-formoterol HFA 160 mcg-4.5 mcg/actuation aerosol inhaler 2 puff inhalation Q4H PRN Wheezing 05/25/22 [History Confirmed 06/27/23] bupropion HCl 150 mg tablet,12 hr sustained-release 150 mg PO BEDTIME 05/25/22 [History Confirmed 06/27/23] carvedilol 3.125 mg tablet 3.125 mg PO BID 05/25/22 [History Confirmed 06/27/23] cyanocobalamin (vitamin B-12) 500 mcg tablet 500 mcg PO DAILY 05/25/22 [History Confirmed 06/27/23] fenofibrate 160 mg tablet 160 mg PO DAILY 05/25/22 [History Confirmed 06/27/23] fluoxetine 20 mg tablet 20 mg PO DAILY 05/25/22 [History Confirmed 06/27/23] fluticasone propionate 50 mcg/actuation nasal spray,suspension 2 spray intranasal DAILY 05/25/22 [History Confirmed 06/27/23] gabapentin 300 mg capsule 300 mg PO BEDTIME 05/25/22 [History Confirmed 06/27/23] insulin glargine 100 unit/mL (3 mL) subcutaneous pen 22 unit SUBCUT BID 05/25/22 [History Confirmed 06/27/23] insulin lispro 100 unit/mL subcutaneous solution (Humalog U-100 Insulin) See Protocol SUBCUT TIDWM 05/25/22 [History Confirmed 06/27/23] loratadine 10 mg tablet 10 mg PO DAILY 05/25/22 [History Confirmed 06/27/23] magnesium oxide 200 mg PO DAILY 05/25/22 [History Confirmed 06/27/23] meclizine 25 mg tablet 25 mg PO Q8HR PRN Dizziness 05/25/22 [History Confirmed 06/27/23] montelukast 10 mg tablet 10 mg PO DAILY 05/25/22 [History Confirmed 06/27/23] nystatin 100,000 unit/gram topical powder 1 applic topical BID PRN Rash 05/25/22 [History Confirmed 06/27/23] ondansetron 4 mg disintegrating tablet 4 mg PO Q8H PRN Nausea 05/25/22 [History Confirmed 06/27/23] rosuvastatin 40 mg tablet 40 mg PO DAILY 05/25/22 [History Confirmed 06/27/23] sennosides 8.6 mg tablet (senna) 17.2 mg PO BEDTIME 05/25/22 [History Confirmed 06/27/23] tiotropium bromide 18 mcg capsule with inhalation device (Spiriva with HandiHaler) 1 cap inhalation DAILY 05/25/22 [History Confirmed 06/27/23] trazodone 50 mg tablet 25 mg PO BEDTIME 05/25/22 [History Confirmed 06/27/23] albuterol sulfate 90 mcg/actuation aerosol inhaler 4 puff inhalation Q4H PRN Shortness Of Breath Or Wheezing 08/15/22 [History Confirmed 06/27/23] levothyroxine 175 mcg tablet 175 mcg PO DAILY 08/15/22 [History Confirmed 06/27/23] potassium chloride 10 mEq tablet,extended release 20 meq PO DAILY 08/15/22 [History Confirmed 06/27/23] midodrine 5 mg tablet 10 mg PO BID 05/20/23 [History Confirmed 06/27/23] torsemide 20 mg DAILY 05/20/23 [History Confirmed 06/27/23] torsemide 10 mg tablet 10 mg PO BEDTIME 05/20/23 [History Confirmed 06/27/23] Visit Medications (administered) Generic Name Dose Route Start Last Admin Trade Name Freq PRN Reason Stop Dose Admin Acetaminophen 650 mg 06/27/23 16:50 07/02/23 03:42 Acetaminophen 325 Mg Tablet PO 650 mg Q6H PRN Administration Fever/Mild Pain (1-3) Albuterol/Ipratropium 3 ml 06/27/23 19:00 07/02/23 11:24 Albuterol/Ipratropium 3 Ml Ampul INH Not Given RTQ4HR JAY JAY Aspirin 81 mg 06/28/23 09:00 07/02/23 09:30 Aspirin Ec 81 Mg Tablet PO 81 mg DAILY JAY JAY Administration Atorvastatin Calcium 80 mg 06/27/23 21:00 07/01/23 21:03 Atorvastatin 20 Mg Tablet PO 80 mg BEDTIME JAY JAY Administration Chlorhexidine Gluconate 15 ml 06/27/23 21:00 07/02/23 09:29 Chlorhexidine Gluconate 15 Ml Cup PO 15 ml BID JAY JAY Administration Famotidine 20 mg 06/29/23 09:00 07/02/23 09:29 Famotidine 20 Mg/2 Ml Vial IV 20 mg DAILY JAY JAY Administration Fentanyl 50 mcg 06/27/23 12:17 06/27/23 16:21 Fentanyl 100 Mcg/2 Ml Inj IV 50 mcg Q30M PRN Administration Pain, Severe (7-10) Heparin Sodium (Porcine) 5,000 unit 06/30/23 10:45 07/02/23 09:29 Heparin 5,000 Unit/Ml Vial SUBCUT 5,000 unit BID JAY JAY Administration Heparin Sodium (Porcine) 50 unit 07/01/23 21:00 07/02/23 09:24 Heparin Flush (Cl/Picc/Mid-Line) 50 Unit/5 Ml Syringe IV 50 unit BID JAY JAY Administration Propofol 1,000 mg in 100 mls @ 7.26 mls/hr 06/27/23 12:30 07/01/23 08:55 Propofol IV 0 mcg/kg/min TITRATE JAY JAY 0 mls/hr Titration Protocol 10 MCG/KG/MIN NOREPINEPHRINE BITARTRATE/D5W 4 mg in 250 mls @ 45.375 mls/hr 06/27/23 13:45 07/02/23 02:00 Levophed IV 0.01 mcg/kg/min TITRATE JAY JAY 4.538 mls/hr Titration Protocol 0.1 MCG/KG/MIN dexmedeTOMIDine in 0.9 % NaCL 400 mcg in 100 mls @ 5.975 mls/hr 06/27/23 19:30 07/02/23 01:34 Precedex IV 0.4 mcg/kg/hr TITRATE JAY JAY 11.95 mls/hr Administration Protocol 0.2 MCG/KG/HR Meropenem 2 gm/ Sodium 100 mls @ 200 mls/hr 06/30/23 14:00 07/02/23 07:14 Chloride IV Infused Q8H JAY JAY Infusion Insulin Glargine 30 unit 07/01/23 21:00 07/02/23 09:31 Insulin Glargine 100 Unit/Ml 3ml Pen SUBCUT 30 unit BID JAY JAY Administration Insulin Human Lispro 0 unit 06/30/23 12:00 07/02/23 05:49 Insulin Lispro 100 Unit/Ml 3ml Vial SUBCUT 4 unit Q6HR JAY JAY Administration Protocol Levothyroxine Sodium 75 mcg 06/28/23 06:00 07/02/23 05:48 Levothyroxine 75 Mcg Tablet PO 75 mcg DAILY@0600 JAY JAY Administration Levothyroxine Sodium 100 mcg 06/28/23 06:00 07/02/23 05:48 Levothyroxine 100 Mcg Tablet PO 100 mcg DAILY@0600 [facility] Administration Polyethylene Glycol 17 gm 06/27/23 09:00 07/01/23 16:03 Polyethylene Glycol 3350 17 Gm Powd.Pack PO 17 gm DAILY PRN Administration Constipation Prednisone 40 mg 06/30/23 12:15 07/02/23 09:30 Prednisone 20 Mg Tablet PO 40 mg DAILY JAY JAY Administration Sennosides 8.6 mg 06/27/23 09:00 07/01/23 16:04 Sennosides 8.6 Mg Tablet PO 8.6 mg BID PRN Administration Constipation Sodium Chloride 10 ml 07/01/23 21:00 07/02/23 09:31 Sodium Chloride 0.9% Flush IV 10 ml BID JAY JAY Administration Objective Ventilator Parameters: Ventilator Settings FiO2 40 RT Vent Frequency 16 Ventilator Tidal Volume 370 Exhaled Vt/kg IBW 6.5 Positive End Expiratory 5 Pressure Ventilator Pressure Support 2 Inspiratory Phase Time 0.95 I:E Ratio 1:2.9 Patient Position HOB >= 30 degrees Labs 07/02/23 04:45 07/02/23 04:45 Labs: Laboratory Results - last 24 hr 06/27/23 06/27/23 07/02/23 11:40 19:30 04:45 WBC 14.1 H RBC 3.58 L Hgb 11.4 L Hct 35.9 L MCV 100.5 H MCH 32.0 MCHC 31.8 RDW 19.3 H Plt Count 107 L Neut % (Auto) 81.3 H Lymph % (Auto) 12.4 L [place] % (Auto) 5.6 Eos % (Auto) 0.1 L Baso % (Auto) 0.6 Neut # (Auto) 01151 H Lymph # (Auto) 1700 [place] # (Auto) 800 Eos # (Auto) 0 Baso # (Auto) 100 VBG pH 7.24 L 7.42 VBG pCO2 > 86.0 H VBG pO2 28 L VBG HCO3 42 H VBG Total CO2 45 H VBG O2 Saturation 38 L VBG Base Excess 15.0 H FiO2 50 Sodium 145 Potassium 4.4 Chloride 114 H Carbon Dioxide 30 BUN 46 H Creatinine 1.24 H Estimated GFR 50 L BUN/Creatinine Ratio 37.1 H Glucose 239 H Calcium 8.9 Phosphorus 2.8 D Total Bilirubin 0.7 Conjugated Bilirubin 0.0 Unconjugated Bilirubin 0.2 AST 171 H ALT 88 H Alkaline Phosphatase 77 Total Protein 5.8 L Albumin 3.2 L Globulin 2.6 Albumin/Globulin Ratio 1.2 Exam Vital Signs (past 8 hours): - 07/02/23 04:45 07/02/23 04:45 07/02/23 04:46 Temperature Pulse Rate 59 L 69 Respiratory Rate 16 16 Blood Pressure Pulse Oximetry 95 95 Oxygen Delivery Method Mechanical Ventilation Fraction of Inspired Oxygen 07/02/23 04:46 07/02/23 05:00 07/02/23 05:00 Temperature Pulse Rate 59 L Respiratory Rate 16 Blood Pressure 93/44 L 100/56 L Pulse Oximetry 96 Oxygen Delivery Method Fraction of Inspired Oxygen 07/02/23 05:15 07/02/23 05:15 07/02/23 05:30 Temperature Pulse Rate 59 L 79 Respiratory Rate 17 16 Blood Pressure 92/54 L Pulse Oximetry 96 96 Oxygen Delivery Method Fraction of Inspired Oxygen 07/02/23 05:30 07/02/23 05:45 07/02/23 05:45 Temperature Pulse Rate 80 Respiratory Rate 16 Blood Pressure 110/71 99/56 L Pulse Oximetry 95 Oxygen Delivery Method Fraction of Inspired Oxygen 07/02/23 06:00 07/02/23 06:00 07/02/23 06:15 Temperature Pulse Rate 61 61 Respiratory Rate 16 16 Blood Pressure 94/50 L Pulse Oximetry 96 96 Oxygen Delivery Method Fraction of Inspired Oxygen 07/02/23 06:15 07/02/23 06:30 07/02/23 06:30 Temperature Pulse Rate 63 Respiratory Rate 16 Blood Pressure 100/58 L 97/54 L Pulse Oximetry 96 Oxygen Delivery Method Fraction of Inspired Oxygen 07/02/23 06:45 07/02/23 06:45 07/02/23 07:00 Temperature Pulse Rate 84 61 Respiratory Rate 16 16 Blood Pressure 109/74 Pulse Oximetry 96 96 Oxygen Delivery Method Fraction of Inspired Oxygen 07/02/23 07:00 07/02/23 07:14 07/02/23 07:15 Temperature 99.0 F 99 F Pulse Rate Respiratory Rate Blood Pressure 100/55 L 103/60 Pulse Oximetry Oxygen Delivery Method Fraction of Inspired Oxygen 07/02/23 07:15 07/02/23 07:30 07/02/23 07:30 Temperature Pulse Rate 62 62 Respiratory Rate 16 16 Blood Pressure 99/56 L Pulse Oximetry 96 96 Oxygen Delivery Method Fraction of Inspired Oxygen 07/02/23 07:36 07/02/23 07:45 07/02/23 07:45 Temperature Pulse Rate 64 62 Respiratory Rate 16 16 Blood Pressure 86/50 L Pulse Oximetry 96 97 Oxygen Delivery Method Mechanical Ventilation Fraction of Inspired Oxygen 40 07/02/23 08:00 07/02/23 08:03 07/02/23 08:03 Temperature Pulse Rate 73 82 Respiratory Rate 16 16 Blood Pressure 95/58 L Pulse Oximetry 97 97 Oxygen Delivery Method Fraction of Inspired Oxygen 07/02/23 08:15 07/02/23 08:20 07/02/23 08:20 Temperature Pulse Rate 66 71 Respiratory Rate 16 16 Blood Pressure 109/62 Pulse Oximetry 97 97 Oxygen Delivery Method Fraction of Inspired Oxygen 07/02/23 08:30 07/02/23 08:30 07/02/23 08:45 Temperature Pulse Rate 70 85 Respiratory Rate 16 16 Blood Pressure 112/67 Pulse Oximetry 96 97 Oxygen Delivery Method Fraction of Inspired Oxygen 07/02/23 08:45 07/02/23 09:00 07/02/23 09:00 Temperature Pulse Rate 84 Respiratory Rate 16 Blood Pressure 115/67 108/66 Pulse Oximetry 97 Oxygen Delivery Method Fraction of Inspired Oxygen 07/02/23 09:15 07/02/23 09:15 07/02/23 09:30 Temperature Pulse Rate 65 64 Respiratory Rate 16 16 Blood Pressure 107/61 Pulse Oximetry 97 95 Oxygen Delivery Method Fraction of Inspired Oxygen 07/02/23 09:30 07/02/23 09:45 07/02/23 09:45 Temperature Pulse Rate 65 Respiratory Rate 16 Blood Pressure 106/62 105/57 L Pulse Oximetry 95 Oxygen Delivery Method Fraction of Inspired Oxygen 07/02/23 10:00 07/02/23 10:00 07/02/23 10:15 Temperature Pulse Rate 74 67 Respiratory Rate 20 17 Blood Pressure 112/56 L Pulse Oximetry 95 96 Oxygen Delivery Method Fraction of Inspired Oxygen 07/02/23 10:15 Temperature Pulse Rate Respiratory Rate Blood Pressure 100/59 L Pulse Oximetry Oxygen Delivery Method Fraction of Inspired Oxygen Fraction of Inspired Oxygen 40 SaO2/FiO2 Ratio 240 Oxygen Delivery Method Mechanical Ventilation Narrative Exam Narrative: intubated/sedated synchronous with vent symmetric chest rise rate controlled Quality TeleICU VTE Deep Vein Thrombosis/Pulmonary Embolism Present on Admission: No Assessment & Plan Assessment and plan (1) Septic shock: Status: Acute Plan # septic vs cardiogenic shock -ESBL urine per nurse, pending final Cx and blood Cx - HD stable -continue Meropenem and Dc vanc - vasopressors restarted - f/u CT a/p # acute on chronic hypoxic and hypercapnic respiratory failure -at home on 2L O2 baseline -minimal vent sats, 92%, no secretions/wheezing - fialed SAT given mental status # BLANCA on CKD -improving -adeqaute urine output ( - 900 ml/24 hr) -monitor and renal dose meds # COPD -continue nebs prn, no wheezing noted per nurse # DM2, POA and stable -keep glucose 140-180s -Continue adjusting lantus dose/ needs further adjustment today, change to Q3 hr accucheck # HFrEF -no new findings on echo I spent a total of 35 minutes of critical care time on this patient's care today; this time is exclusive of procedural time. Code status is full code. DVT prophylaxis with heparin subcutaneous. Proxy is daughter Roxy. I have reviewed home meds and used all available resources to reconcile the home meds. Dispo: ICU
[2023-07-02] MEDS: SENNOSIDES 8.6 MG TABLET PO (13:12)
[2023-07-02] MEDS: polyethylene glycoL 3350 17 GM POWD.PACK PO (13:12)
[2023-07-02] MEDS: propofoL 1,000 MG/100 ML VIAL 5 MG IV (13:13)
--- NOTE | 2023-07-02 13:29 | CM.DPC ---
DCP Cont: Per MD, pt remains intubated and sedated and continues to have fevers so will get imaging to r/o possible abscess. If imaging shows need for any surgical intervention then pt likely will need hospital transfer for higher level of care needs. SW called [facility] admissions and updated them on pt status. They will continue to follow for plan of pt return to [facility] when medically stable. GA P[place]itt
--- NOTE | 2023-07-02 14:36 | CM.DPNOTE ---
DCP Note SALES SUPPORT MANAGER was notified by RN of pt's pending transfer to [facility]. Pt's SSN needed for transfer. not available in chart. SALES SUPPORT MANAGER updated Ursula at [facility] of transfer. Ursula does not have the SSN. SALES SUPPORT MANAGER spoke with dtr Roxy (p [phone]). Provided SSN. SALES SUPPORT MANAGER updated dtr to best of abilities. Asked to be notified of transfer when it happens. SALES SUPPORT MANAGER provided RN with SSN. RN agreed to notified dtr upon transfer. GA Han
--- NOTE | 2023-07-02 14:53 | PM.PN.1 ---
Subjective Subjective Interval history: Patient still intubated. Febrile overnight again. Abdominal CT and bedside sonogram consistent with acalculous cholecystitis. Attempting to transfer for cholecystostomy tube this afternoon. Exam Vital Signs (past 8 hours): - 07/02/23 07:00 07/02/23 07:00 07/02/23 07:14 Temperature 99.0 F 99 F Pulse Rate 61 Respiratory Rate 16 Blood Pressure 100/55 L Pulse Oximetry 96 Oxygen Delivery Method Fraction of Inspired Oxygen 07/02/23 07:15 07/02/23 07:15 07/02/23 07:30 Temperature Pulse Rate 62 62 Respiratory Rate 16 16 Blood Pressure 103/60 Pulse Oximetry 96 96 Oxygen Delivery Method Fraction of Inspired Oxygen 07/02/23 07:30 07/02/23 07:36 07/02/23 07:45 Temperature Pulse Rate 64 62 Respiratory Rate 16 16 Blood Pressure 99/56 L Pulse Oximetry 96 97 Oxygen Delivery Method Mechanical Ventilation Fraction of Inspired Oxygen 40 07/02/23 07:45 07/02/23 08:00 07/02/23 08:03 Temperature Pulse Rate 73 Respiratory Rate 16 Blood Pressure 86/50 L 95/58 L Pulse Oximetry 97 Oxygen Delivery Method Fraction of Inspired Oxygen 07/02/23 08:03 07/02/23 08:15 07/02/23 08:20 Temperature Pulse Rate 82 66 71 Respiratory Rate 16 16 16 Blood Pressure Pulse Oximetry 97 97 97 Oxygen Delivery Method Fraction of Inspired Oxygen 07/02/23 08:20 07/02/23 08:30 07/02/23 08:30 Temperature Pulse Rate 70 Respiratory Rate 16 Blood Pressure 109/62 112/67 Pulse Oximetry 96 Oxygen Delivery Method Fraction of Inspired Oxygen 07/02/23 08:45 07/02/23 08:45 07/02/23 09:00 Temperature Pulse Rate 85 84 Respiratory Rate 16 16 Blood Pressure 115/67 Pulse Oximetry 97 97 Oxygen Delivery Method Fraction of Inspired Oxygen 07/02/23 09:00 07/02/23 09:15 07/02/23 09:15 Temperature Pulse Rate 65 Respiratory Rate 16 Blood Pressure 108/66 107/61 Pulse Oximetry 97 Oxygen Delivery Method Fraction of Inspired Oxygen 07/02/23 09:30 07/02/23 09:30 07/02/23 09:45 Temperature Pulse Rate 64 65 Respiratory Rate 16 16 Blood Pressure 106/62 Pulse Oximetry 95 95 Oxygen Delivery Method Fraction of Inspired Oxygen 07/02/23 09:45 07/02/23 10:00 07/02/23 10:00 Temperature Pulse Rate 74 Respiratory Rate 20 Blood Pressure 105/57 L 112/56 L Pulse Oximetry 95 Oxygen Delivery Method Fraction of Inspired Oxygen 07/02/23 10:15 07/02/23 10:15 07/02/23 10:30 Temperature Pulse Rate 67 64 Respiratory Rate 17 16 Blood Pressure 100/59 L Pulse Oximetry 96 95 Oxygen Delivery Method Fraction of Inspired Oxygen 07/02/23 10:30 07/02/23 10:45 07/02/23 10:45 Temperature Pulse Rate 66 Respiratory Rate 17 Blood Pressure 107/58 L 103/57 L Pulse Oximetry 97 Oxygen Delivery Method Fraction of Inspired Oxygen 07/02/23 11:00 07/02/23 11:15 07/02/23 11:56 Temperature Pulse Rate 69 66 58 L Respiratory Rate 17 16 Blood Pressure Pulse Oximetry 97 97 98 Oxygen Delivery Method Fraction of Inspired Oxygen 07/02/23 11:57 07/02/23 11:57 07/02/23 11:59 Temperature Pulse Rate 75 75 Respiratory Rate 32 H 18 Blood Pressure 120/67 Pulse Oximetry 97 96 Oxygen Delivery Method Fraction of Inspired Oxygen 07/02/23 11:59 07/02/23 12:00 07/02/23 12:00 Temperature Pulse Rate 75 Respiratory Rate 6 L Blood Pressure 123/75 116/58 L Pulse Oximetry 95 Oxygen Delivery Method Fraction of Inspired Oxygen 07/02/23 12:00 07/02/23 12:15 07/02/23 12:30 Temperature Pulse Rate 66 65 Respiratory Rate 17 18 Blood Pressure Pulse Oximetry 93 93 Oxygen Delivery Method Mechanical Ventilation Fraction of Inspired Oxygen 07/02/23 12:43 07/02/23 12:43 07/02/23 12:45 Temperature Pulse Rate 65 66 Respiratory Rate 16 17 Blood Pressure 110/57 L Pulse Oximetry 93 92 Oxygen Delivery Method Fraction of Inspired Oxygen 07/02/23 13:00 07/02/23 13:05 07/02/23 13:12 Temperature 102.2 F H 102.2 F H Pulse Rate 62 Respiratory Rate 16 Blood Pressure Pulse Oximetry 92 Oxygen Delivery Method Fraction of Inspired Oxygen 07/02/23 13:15 07/02/23 13:30 07/02/23 13:45 Temperature Pulse Rate 65 64 66 Respiratory Rate 16 16 18 Blood Pressure Pulse Oximetry 93 93 94 Oxygen Delivery Method Fraction of Inspired Oxygen 07/02/23 14:11 Temperature 102.2 F H Pulse Rate Respiratory Rate Blood Pressure Pulse Oximetry Oxygen Delivery Method Fraction of Inspired Oxygen Fraction of Inspired Oxygen 40 SaO2/FiO2 Ratio 240 Oxygen Delivery Method Mechanical Ventilation Narrative Exam Narrative: GEN: Intubated and sedated, obese HEENT: moist mucous membranes, PERRL NECK: trachea midline, no JVD CV: regular rate and rhythm, no murmurs PULM: Coarse breath sounds bilaterally ABD: soft, nontender, nondistended, no organomegaly EXT: warm and well perfused with no edema NEURO: Unobtainable Objective Labs 07/02/23 04:45 07/02/23 04:45 Labs: Laboratory Results - last 24 hr 06/27/23 06/27/23 07/02/23 11:40 19:30 04:45 WBC 14.1 H RBC 3.58 L Hgb 11.4 L Hct 35.9 L MCV 100.5 H MCH 32.0 MCHC 31.8 RDW 19.3 H Plt Count 107 L Neut % (Auto) 81.3 H Lymph % (Auto) 12.4 L [place] % (Auto) 5.6 Eos % (Auto) 0.1 L Baso % (Auto) 0.6 Neut # (Auto) 23382 H Lymph # (Auto) 1700 [place] # (Auto) 800 Eos # (Auto) 0 Baso # (Auto) 100 VBG pH 7.24 L 7.42 VBG pCO2 > 86.0 H VBG pO2 28 L VBG HCO3 42 H VBG Total CO2 45 H VBG O2 Saturation 38 L VBG Base Excess 15.0 H FiO2 50 Sodium 145 Potassium 4.4 Chloride 114 H Carbon Dioxide 30 BUN 46 H Creatinine 1.24 H Estimated GFR 50 L BUN/Creatinine Ratio 37.1 H Glucose 239 H Calcium 8.9 Phosphorus 2.8 D Total Bilirubin 0.7 Conjugated Bilirubin 0.0 Unconjugated Bilirubin 0.2 AST 171 H ALT 88 H Alkaline Phosphatase 77 Total Protein 5.8 L Albumin 3.2 L Globulin 2.6 Albumin/Globulin Ratio 1.2 PFSH Medical History PONCE (obstructive sleep apnea) Chronic hypoxemic respiratory failure COPD (chronic obstructive pulmonary disease) DM2 (diabetes mellitus, type 2) HTN (hypertension) Thyroiditis Systolic and diastolic CHF, chronic Obesity Surgical History S/P hernia surgery Family History Mother No pertinent past medical history Father No pertinent past medical history Social History household members: other Smoking Status: Former smoker alcohol intake: former Assessment & Plan Assessment & Plan narrative: # septic shock secondary to ESBL E.coli acute cystitis, probable development of acaculous cholecystitis, with acute on chronic respiratory failure, BLANCA on CKD, thrombocytopenia, and acute metabolic encephalopathy. -BP down to 51/32 in ED requiring levophed, over the last few days WBC increasing, high fever as high as 103 despite meropenem therapy. -Cultures negative except for urine with ESBL E. coli. May be colonized but have been treating with meropenem. Despite this fever to 103. Bedside sonogram with GBWT and PCCF. Confirmed on CT. Consistent with acalculous cholecystitis. General surgery recommended cholecystostomy tube, not available at [facility]. Looking to transfer for further evaluation and probable cholecystostomy tube. -last EF 20-25% in Jan 2023, rechecked limited echo and EF 15-20% -Levophed started in ED, weaned off but again required overnight. -appreciate tele ICU consult -blood cultures with no growth. repeat blood cultures again with 103F fever. No growth currently. # possible NSTEMI, likely demand -troponin peaked at 0.537, now downtrending -likely due to septic shock -started heparin drip x48 hours, now complete. -echo with EF 15-20% and no significant change from prior # acute on chronic hypoxic and hypercapnic respiratory failure -at home on 2L O2 baseline -satting 60% by EMS -required Bipap in ED, then intubated due to worsening hypercapnea -solumedrol 60mg IV BID for possible COPD exac changed to prednisone 40 mg daily for 5 days. -will continue with daily trials to check for readiness for extubation. # BLANCA on CKD, improving -creatinine 1.81 and baseline 1.3, now improved to 1.24. -s/p 1L bolus in ED # COPD -continue nebs prn # DM2, POA and stable -increased lantus to 30 BID yesterday evening, continue to make adjustments. # CHFrEF -last EF 20-25%, unclear if in cardiogenic shock as BNP only 2200 and previously 22k -repeat echo ordered and shows EF 15-20% # morbid obesity, POA. I spent a total of 45 minutes of critical care time on this patient's care today; this time is exclusive of procedural time. Code status is full code. DVT prophylaxis with heparin subcutaneous. Proxy is daughter Roxy. I have reviewed home meds and used all available resources to reconcile the home meds. Dispo: ICU, will remain ICU status. Quality VTE Deep Vein Thrombosis/Pulmonary Embolism Present on Admission: No
--- NOTE | 2023-07-02 15:52 | PM.DS.1 ---
History of Present Illness History of Present Illness Date Patient Seen: 07/02/23 Time Patient Seen: 15:53 Chief complaint: SOB Narrative: Per admitting provider, Mary Carmen Jett is a 62yo F with PMH of DM2, COPD on chronic 2L O2, HFrEF of 30-35%, abnormal stress testing, morbid obesity, PONCE, HTN, hypothyroidism, frequent ESBL UTI's, depression and frequent admissions requiring Bipap who presents with dyspnea and required intubation for worsening hypercapnia. Also requiring pressors for septic vs cardiogenic shock. Patient intubated so history unattainable. Per ED records she was at [facility] where she lives and developed SOB last night. Found to have O2 sats in 60's by EMS. Placed initially on Bipap in the ED but ABG's showed worsening hypercapnea up to 106 pCO2 so was intubated. Shortly after she developed hypotension and was placed on levophed. Discharge Providers Provider Date of admission: 06/27/23 13:25 Discharge Date: 07/02/23 Consults: 06/27/23 16:51 Consult to Tele-fiberglass boat parts finisher Routine Comment: Consulting Provider: [facility] [employer] Reason for consultation: Antenna Machine Operator services Discharge provider: Esteban Gillespie DO Summary Hospital Course Discharge Diagnosis: Please see hospital course by problem list noted below. Hospital Course: # septic shock secondary to ESBL E.coli acute cystitis, probable development of acaculous cholecystitis, with acute on chronic respiratory failure, BLANCA on CKD, thrombocytopenia, and acute metabolic encephalopathy. -Admitted 06/26 in the afternoon with presumed septic shock. She was intubated in the emergency room, and initially seemed to be improving. She was alert on sedation trials initially for the first 3 days of admission. She was able to be weaned off of levophed, but initially failed her first breathing trials. Over the last few days her mentation on sedation vacations has been much more lethargic and not following commands. Her WBC has been increasing, and developed high fever as high as 103 despite meropenem therapy for ESBL E. coli found in her urine. She was initially on vancomycin but this was discontinued given negative cultures. Blood cultures have been negative since admission, urine with ESBL E. coli. She may be colonized but have been treating with meropenem given prior history of ESBL since admission. Despite carbapenem therapy 2 nights ago developed fever to 103. Patient was recultured without obvious offending source. Today with elevated AST/ALT. Bedside sonogram today with GBWT and PCCF. Confirmed on CT today with no other obvious source of infection, consistent with acalculous cholecystitis. General surgery recommended cholecystostomy tube, not available at [facility]. Discussed with Dr. Jenkins fiberglass boat parts finisher at [facility]. Given patient's severity of illness and complexity, will transfer for higher level of care. -consider MRCP to evaluate for possible cholangitis, though not evident on today's imaging. -last EF 20-25% in Jan 2023, rechecked limited echo and EF 15-20% with no focal wall motion abnormalities / global hypokinesis. -tele fiberglass boat parts finisher has been helping coordinate care and consulting for management. -since yesterday evening (06/30) has been on and off levophed again. # possible NSTEMI, likely demand -troponin peaked at 0.537 then downtrended -likely due to septic shock -started heparin drip x48 hours on admission, now complete. -echo with EF 15-20% and no significant change from prior. Suspect elevated troponin was due to demand. # acute on chronic hypoxic and hypercapnic respiratory failure -at home on 2L O2 baseline -satting 60% by EMS, PCO2 >80 on initial blood gas. -required Bipap in ED, then intubated due to worsening hypercapnea. -solumedrol 60mg IV BID for possible COPD exac changed to prednisone 40 mg daily for 5 days and the patient is on day 3/5 today. To complete on 07/03. # BLANCA on CKD, improving -creatinine 1.81 on admission and baseline 1.3, now improved to 1.24. -s/p 1L bolus in ED, no additional fluids given due to CHF history on admission. # COPD with possible exacerbation -continue nebs prn -prednisone has been given as above. # DM2, POA and stable -Very high glucoses initially with steroids given. Improved today with increased lantus to 30 BID yesterday evening, continue to make adjustments. AM glucose was 239 can probably increase further at accepting facility. # CHFrEF -last EF 20-25% -repeat echo ordered and shows EF 15-20% -have been hoding home coreg. Patient is normally on midodrine for orthostatic hypotension, not on burton/arb therapy at baseline due to hypotension. # morbid obesity, POA. #hypernatremia, not present on admission. #CAD - patient with known abnormal stress testing at [facility]. I do not have available records indicating she has ever had a C or further cardiac evaluation despite multiple admissions after this exam. - patient on aspirin and statin therapy chronically. #FEN-GI normal electrolytes on today's labs. Has been on glucerna 1.5 tube feeds via gastric tube at 80 cc/hr goal rate per activities counselor. Increased free water flushes for hypernatremia on 06/29 with Na today 145. Free water flushes currently 300 cc q4 hr #access - L double lumen PICC, L forearm IV, R peripheral IV, NG tube. Code status is full code. DVT prophylaxis with heparin subcutaneous. Proxy is daughter Roxy. Dispo: Transfer to [facility], accepting fiberglass boat parts finisher Dr. Jenkins for higher level of care. Time Spent with Patient Time spent: Greater than 30 minutes Exam Vital Signs (past 8 hours): - 07/02/23 08:00 07/02/23 08:03 07/02/23 08:03 Temperature Pulse Rate 73 82 Respiratory Rate 16 16 Blood Pressure 95/58 L Pulse Oximetry 97 97 Oxygen Delivery Method 07/02/23 08:15 07/02/23 08:20 07/02/23 08:20 Temperature Pulse Rate 66 71 Respiratory Rate 16 16 Blood Pressure 109/62 Pulse Oximetry 97 97 Oxygen Delivery Method 07/02/23 08:30 07/02/23 08:30 07/02/23 08:45 Temperature Pulse Rate 70 85 Respiratory Rate 16 16 Blood Pressure 112/67 Pulse Oximetry 96 97 Oxygen Delivery Method 07/02/23 08:45 07/02/23 09:00 07/02/23 09:00 Temperature Pulse Rate 84 Respiratory Rate 16 Blood Pressure 115/67 108/66 Pulse Oximetry 97 Oxygen Delivery Method 07/02/23 09:15 07/02/23 09:15 07/02/23 09:30 Temperature Pulse Rate 65 64 Respiratory Rate 16 16 Blood Pressure 107/61 Pulse Oximetry 97 95 Oxygen Delivery Method 07/02/23 09:30 07/02/23 09:45 07/02/23 09:45 Temperature Pulse Rate 65 Respiratory Rate 16 Blood Pressure 106/62 105/57 L Pulse Oximetry 95 Oxygen Delivery Method 07/02/23 10:00 07/02/23 10:00 07/02/23 10:15 Temperature Pulse Rate 74 67 Respiratory Rate 20 17 Blood Pressure 112/56 L Pulse Oximetry 95 96 Oxygen Delivery Method 07/02/23 10:15 07/02/23 10:30 07/02/23 10:30 Temperature Pulse Rate 64 Respiratory Rate 16 Blood Pressure 100/59 L 107/58 L Pulse Oximetry 95 Oxygen Delivery Method 07/02/23 10:45 07/02/23 10:45 07/02/23 11:00 Temperature Pulse Rate 66 69 Respiratory Rate 17 17 Blood Pressure 103/57 L Pulse Oximetry 97 97 Oxygen Delivery Method 07/02/23 11:15 07/02/23 11:56 07/02/23 11:57 Temperature Pulse Rate 66 58 L 75 Respiratory Rate 16 32 H Blood Pressure Pulse Oximetry 97 98 97 Oxygen Delivery Method 07/02/23 11:57 07/02/23 11:59 07/02/23 11:59 Temperature Pulse Rate 75 Respiratory Rate 18 Blood Pressure 120/67 123/75 Pulse Oximetry 96 Oxygen Delivery Method 07/02/23 12:00 07/02/23 12:00 07/02/23 12:00 Temperature Pulse Rate 75 Respiratory Rate 6 L Blood Pressure 116/58 L Pulse Oximetry 95 Oxygen Delivery Method Mechanical Ventilation 07/02/23 12:15 07/02/23 12:30 07/02/23 12:43 Temperature Pulse Rate 66 65 65 Respiratory Rate 17 18 16 Blood Pressure Pulse Oximetry 93 93 93 Oxygen Delivery Method 07/02/23 12:43 07/02/23 12:45 07/02/23 13:00 Temperature Pulse Rate 66 62 Respiratory Rate 17 16 Blood Pressure 110/57 L Pulse Oximetry 92 92 Oxygen Delivery Method 07/02/23 13:05 07/02/23 13:12 07/02/23 13:15 Temperature 102.2 F H 102.2 F H Pulse Rate 65 Respiratory Rate 16 Blood Pressure Pulse Oximetry 93 Oxygen Delivery Method 07/02/23 13:30 07/02/23 13:45 07/02/23 14:00 Temperature Pulse Rate 64 66 66 Respiratory Rate 16 18 18 Blood Pressure Pulse Oximetry 93 94 94 Oxygen Delivery Method 07/02/23 14:11 07/02/23 14:15 07/02/23 14:30 Temperature 102.2 F H Pulse Rate 64 64 Respiratory Rate 18 17 Blood Pressure Pulse Oximetry 95 95 Oxygen Delivery Method 07/02/23 14:45 07/02/23 15:00 07/02/23 15:15 Temperature Pulse Rate 63 63 64 Respiratory Rate 16 16 17 Blood Pressure Pulse Oximetry 95 95 95 Oxygen Delivery Method Fraction of Inspired Oxygen 40 SaO2/FiO2 Ratio 240 Oxygen Delivery Method Mechanical Ventilation Narrative Exam Narrative: GEN: Intubated and sedated, obese HEENT: moist mucous membranes, PERRL NECK: trachea midline, no JVD CV: regular rate and rhythm, no murmurs PULM: Coarse breath sounds bilaterally ABD: soft, nontender, nondistended, no organomegaly EXT: warm and well perfused with no edema NEURO: Unobtainable Objective Labs 07/02/23 04:45 07/02/23 04:45 Labs: Laboratory Results - last 24 hr 06/27/23 06/27/23 07/02/23 11:40 19:30 04:45 WBC 14.1 H RBC 3.58 L Hgb 11.4 L Hct 35.9 L MCV 100.5 H MCH 32.0 MCHC 31.8 RDW 19.3 H Plt Count 107 L Neut % (Auto) 81.3 H Lymph % (Auto) 12.4 L [place] % (Auto) 5.6 Eos % (Auto) 0.1 L Baso % (Auto) 0.6 Neut # (Auto) 40452 H Lymph # (Auto) 1700 [place] # (Auto) 800 Eos # (Auto) 0 Baso # (Auto) 100 VBG pH 7.24 L 7.42 VBG pCO2 > 86.0 H VBG pO2 28 L VBG HCO3 42 H VBG Total CO2 45 H VBG O2 Saturation 38 L VBG Base Excess 15.0 H FiO2 50 Sodium 145 Potassium 4.4 Chloride 114 H Carbon Dioxide 30 BUN 46 H Creatinine 1.24 H Estimated GFR 50 L BUN/Creatinine Ratio 37.1 H Glucose 239 H Calcium 8.9 Phosphorus 2.8 D Total Bilirubin 0.7 Conjugated Bilirubin 0.0 Unconjugated Bilirubin 0.2 AST 171 H ALT 88 H Alkaline Phosphatase 77 Total Protein 5.8 L Albumin 3.2 L Globulin 2.6 Albumin/Globulin Ratio 1.2 PFSH Medical History PONCE (obstructive sleep apnea) Chronic hypoxemic respiratory failure COPD (chronic obstructive pulmonary disease) DM2 (diabetes mellitus, type 2) HTN (hypertension) Thyroiditis Systolic and diastolic CHF, chronic Obesity Surgical History S/P hernia surgery Family History Mother No pertinent past medical history Father No pertinent past medical history Social History household members: other Smoking Status: Former smoker alcohol intake: former Discharge Plan Discharge Plan Patient Disposition: [facility] Provider Discharge Comment: See discuarge summary. Discharge Health Status Multidrug resistant organism: Other Precautions: Contact Diet/Activity/Treatments Diet: Nothing by Mouth and Tube Feeding Diet comment: Glucerna 1.5, 80 cc per hour Activity: n/a Quality VTE Deep Vein Thrombosis/Pulmonary Embolism Present on Admission: No
== END 2023-07-02 17:45 | disposition short-term general hospital (02) | DRG 720 ==
LOC: ED 12:03 → AC 13:26 → ICU 16:38
PROVIDERS: Anesthesiology Critical Care Medicine; Internal Medicine; Internal Medicine Critical Care Medicine; Admitting Provider Student in an Organized Health Care Education/Training Program; Emergency Provider Emergency Medicine; Referring Provider Emergency Medicine; Visit Provider Student in an Organized Health Care Education/Training Program
DX: A41.51 Sepsis due to Escherichia coli [E. coli] (principal); R65.21 Severe sepsis with septic shock; J96.21 Acute and chronic respiratory failure with hypoxia; J96.22 Acute and chronic respiratory failure with hypercapnia; Z16.12 Extended spectrum beta lactamase (ESBL) resistance; Z99.81 Dependence on supplemental oxygen; Z68.42 Body mass index [BMI] 45.0-49.9, adult; N30.00 Acute cystitis without hematuria; K81.9 Cholecystitis, unspecified; N17.9 Acute kidney failure, unspecified; D69.6 Thrombocytopenia, unspecified; I13.0 Hypertensive heart and chronic kidney disease with heart failure and stage 1 through stage 4 chronic kidney disease, or unspecified chronic kidney disease; G93.41 Metabolic encephalopathy; I21.A1 Myocardial infarction type 2; J44.1 Chronic obstructive pulmonary disease with (acute) exacerbation; E11.22 Type 2 diabetes mellitus with diabetic chronic kidney disease; N18.9 Chronic kidney disease, unspecified; I50.22 Chronic systolic (congestive) heart failure; E66.01 Morbid (severe) obesity due to excess calories; E87.0 Hyperosmolality and hypernatremia; I25.10 Atherosclerotic heart disease of native coronary artery without angina pectoris; Z79.82 Long term (current) use of aspirin; Z87.891 Personal history of nicotine dependence; Z79.51 Long term (current) use of inhaled steroids; Z79.4 Long term (current) use of insulin; Z79.890 Hormone replacement therapy; Z79.52 Long term (current) use of systemic steroids
CPT/HCPCS: 31500; 36415; 36569; 36592; 36600; 71045; 71260; 74177; 80048; 80053; 80061; 80076; 80202; 81001; 82550; 82805; 82962; 83036; 83605; 83735; 83880; 84100; 84145; 84484; 85025; 85610; 85730; 87040; 87070; 87077; 87086; 87186; 87205; 87633; 87797; 93005; 93010; 93307; 94002; 94003; 94640; 94660; 94799; 96365; 96366; 96367; 96375; 96376; 99233; 99285; 99291; 99292; J0171; J1642; J1644; J1815; J1940; J2185; J2543; J2704; J2919; J3010; J3475; Q9967

== ENCOUNTER 2023-08-02 16:49 | Inpatient (IN) | payer OTHER, MEDICAID, SELFPAY ==
[2023-06-27 17:41] VITALS: BMI 48.2
[2023-07-02 15:36] VITALS: PULSE 64; RESP 0; RESP 16; O2SAT 95
[2023-08-02] VITALS (47 sets, daily range): BP systolic 82–135; BP diastolic 51–91; PULSE 81–97; RESP 10–37; TEMP 30–36.7; O2SAT 75–98; BMI 50.3
--- NOTE | 2023-08-02 16:58 | DI.RAD.S_ITS ---
PROCEDURE: XR CHEST 1V INDICATIONS: SOB TECHNIQUE: One view of the chest was acquired. COMPARISON: [facility], CR, XR CHEST 1V, 06/30/2023, 21:13. [facility], CR, XR CHEST 1V, 06/30/2023, 10:02. FINDINGS: Surgical changes and devices: None. Lungs and pleura: Low lung volumes. Left greater right basal opacities again seen, some of the prior. [id number] left effusion also again seen. Mediastinum: Cardiomediastinal contours are unchanged. Cardiomegaly is suspected. Heart borders are obscured. Bones and chest wall: Unremarkable IMPRESSION: Low lung volumes on single view portable radiograph, limiting evaluation. Similar left greater right basal opacities/atelectasis, and [id number] left effusion again seen. Consider future imaging surveillance to assess for resolution. Dictated by: Nelson Beltran M.D. on 08/02/2023 at 17:43 Approved by: Nelson Beltran M.D. on 08/02/2023 at 17:44
--- NOTE | 2023-08-02 17:02 | ED_ITS ---
HPI - General Adult <Romero Loaiza DO - Last Filed: 08/08/23 18:01> General Chief complaint: Altered Mental Status Stated complaint: Unresponsive Time Seen by Provider: 08/02/23 16:57 Source: EMS Mode of arrival: EMS Limitations: altered mental status History of Present Illness HPI narrative: Patient is a 62-year-old female. History of COPD. Last echocardiogram was in January of 2023 showed an ejection fraction of 25%. History of COPD. History of diabetes. History of asthma. Use a CPAP at night. Is a resident of long- term nursing facility. Has a full code. He was brought in for evaluation of decreased level of consciousness. I received a call from her primary provider who evaluated her at the living facility. Apparently she has had decreased level consciousness at least over the past 24 hours and potentially somewhat longer than that. She was hypoxic as well. She was placed on her CPAP. Patient was brought by EMS on a CPAP. Patient is unable to provide any HPI review of systems. Related Data Home Medications Medication Instructions Recorded Confirmed acetaminophen 325 mg tablet 650 mg PO TID 05/25/22 08/04/23 (Tylenol) aspirin 81 mg tablet,delayed 81 mg PO DAILY 05/25/22 08/04/23 release budesonide-formoterol HFA 160 2 puff inhalation Q4H PRN Wheezing 05/25/22 08/04/23 mcg-4.5 mcg/actuation aerosol inhaler bupropion HCl 150 mg tablet,12 hr 150 mg PO BEDTIME 05/25/22 08/04/23 sustained-release carvedilol 3.125 mg tablet 3.125 mg PO BID 05/25/22 08/04/23 cyanocobalamin (vitamin B-12) 500 500 mcg PO DAILY 05/25/22 08/04/23 mcg tablet fenofibrate 160 mg tablet 160 mg PO DAILY 05/25/22 08/04/23 fluoxetine 20 mg tablet 20 mg PO DAILY 05/25/22 08/04/23 fluticasone propionate 50 2 spray intranasal DAILY 05/25/22 08/04/23 mcg/actuation nasal spray,suspension gabapentin 300 mg capsule 300 mg PO BEDTIME 05/25/22 08/04/23 insulin glargine 100 unit/mL (3 22 unit SUBCUT BID 05/25/22 08/04/23 mL) subcutaneous pen insulin lispro 100 unit/mL See Protocol SUBCUT TIDWM 05/25/22 08/04/23 subcutaneous solution (Humalog U-100 Insulin) loratadine 10 mg tablet 10 mg PO DAILY 05/25/22 08/04/23 magnesium oxide 200 mg PO DAILY 05/25/22 08/04/23 montelukast 10 mg tablet 10 mg PO DAILY 05/25/22 08/04/23 nystatin 100,000 unit/gram topical 1 applic topical BID PRN Rash 05/25/22 08/04/23 powder ondansetron 4 mg disintegrating 4 mg PO Q8H PRN Nausea 05/25/22 08/04/23 tablet rosuvastatin 40 mg tablet 40 mg PO DAILY 05/25/22 08/04/23 sennosides 8.6 mg tablet (senna) 17.2 mg PO BEDTIME 05/25/22 08/04/23 tiotropium bromide 18 mcg capsule 1 cap inhalation DAILY 05/25/22 08/04/23 with inhalation device (Spiriva with HandiHaler) trazodone 50 mg tablet 25 mg PO BEDTIME 05/25/22 08/04/23 albuterol sulfate 90 mcg/actuation 4 puff inhalation Q4H PRN 08/15/22 08/04/23 aerosol inhaler Shortness Of Breath Or Wheezing levothyroxine 175 mcg tablet 175 mcg PO DAILY 08/15/22 08/04/23 potassium chloride 10 mEq 20 meq PO DAILY 08/15/22 08/04/23 tablet,extended release midodrine 5 mg tablet 10 mg PO BID 05/20/23 08/04/23 torsemide 10 mg tablet 10 mg PO BEDTIME 05/20/23 08/04/23 Previous Rx's Medication Instructions Recorded prednisone 20 mg tablet 40 mg (2 x 20 mg) PO DAILY 3 days 08/06/23 #6 tabs Allergies Allergy/AdvReac Type Severity Reaction Status Date / Time No Known Drug Allergies Allergy Verified 05/25/22 12:43 Review of Systems <Romero Loaiza DO - Last Filed: 08/08/23 18:01> Review of Systems ROS Unobtainable: Unobtainable due to mental status/LOC Patient History <Romero Loaiza DO - Last Filed: 08/08/23 18:01> Medical History PONCE (obstructive sleep apnea) Chronic hypoxemic respiratory failure COPD (chronic obstructive pulmonary disease) DM2 (diabetes mellitus, type 2) HTN (hypertension) Thyroiditis Systolic and diastolic CHF, chronic Obesity Surgical History S/P hernia surgery Family History Mother No pertinent past medical history Father No pertinent past medical history Social History household members: other Smoking Status: Former smoker alcohol intake: former Smoking Status: Former smoker alcohol intake frequency: other Substance Use Type: does not use Exam <Romero Loaiza DO - Last Filed: 08/08/23 18:01> Initial Vital Signs Initial Vital Signs: Vital Signs Temperature 97.8 F 08/02/23 16:53 Pulse Rate 97 H 08/02/23 16:53 Respiratory Rate 10 L 08/02/23 16:53 Blood Pressure 126/58 L 08/02/23 16:53 Pulse Oximetry 80 L 08/02/23 16:53 Oxygen Delivery Method CPAP 08/02/23 16:53 Const Other: Chronically ill-appearing HENMT Head: normal to inspection and normocephalic Resp Effort & Inspection: respiratory distress Auscultation: diminished lung sounds and wheezes Cardio Rate: regular rate Rhythm: regular rhythm GI Other: Midline hernia. Skin General: no rashes or lesions noted Neuro Other: GCS of 9. Extrem General: No edema <Gabriela Castellano MD - Last Filed: 08/03/23 02:55> Initial Vital Signs Initial Vital Signs: Vital Signs Temperature 97.8 F 08/02/23 16:53 Pulse Rate 97 H 08/02/23 16:53 Respiratory Rate 10 L 08/02/23 16:53 Blood Pressure 126/58 L 08/02/23 16:53 Pulse Oximetry 80 L 08/02/23 16:53 Oxygen Delivery Method CPAP 08/02/23 16:53 Scores <Romero Loaiza DO - Last Filed: 08/08/23 18:01> GCS [place] coma scale eye opening: To sound [place] coma scale verbal response: None [place] coma scale motor response: Localising [place] coma scale total score: 9 <Gabriela Castellano MD - Last Filed: 08/03/23 02:55> GCS [place] coma scale total score: 9 Course <Romero Loaiza DO - Last Filed: 08/08/23 18:01> Orders Ordered: Discontinued Medications Acetaminophen (Acetaminophen 325 Mg Tablet) 650 mg PO Q6H PRN PRN Reason: Fever/Mild Pain (1-3) Last Admin: 08/04/23 18:23 Dose: 650 mg Documented By: RAFAEL Acetazolamide (Acetazolamide 250 Mg Tablet) 250 mg PO NOW ONE Stop: 08/02/23 19:03 Last Admin: 08/02/23 23:41 Dose: Not Given Documented By: LONNIE Albuterol/Ipratropium (Albuterol/Ipratropium 3 Ml Ampul) 3 ml INH Q20M [facility] Stop: 08/02/23 17:56 Last Admin: 08/02/23 18:00 Dose: 3 ml Documented By: Admin: 08/02/23 17:38 Dose: 3 ml Documented By: Admin: 08/02/23 17:27 Dose: 3 ml Documented By: LOULOU Albuterol/Ipratropium (Albuterol/Ipratropium 3 Ml Ampul) 3 ml INH [id number] [facility] Albuterol/Ipratropium (Albuterol/Ipratropium 3 Ml Ampul) 3 ml INH [id number] [facility] Last Admin: 08/06/23 11:57 Dose: Not Given Documented By: Admin: 08/06/23 07:49 Dose: 3 ml Documented By: HOANG(2) Admin: 08/05/23 23:02 Dose: 3 ml Documented By: Admin: 08/05/23 18:44 Dose: 3 ml Documented By: Admin: 08/05/23 13:37 Dose: 3 ml Documented By: Admin: 08/05/23 09:39 Dose: 3 ml Documented By: Admin: 08/05/23 06:03 Dose: 3 ml Documented By: Admin: 08/04/23 23:14 Dose: 3 ml Documented By: Admin: 08/04/23 20:44 Dose: 3 ml Documented By: Admin: 08/04/23 15:22 Dose: Not Given Documented By: Admin: 08/04/23 10:22 Dose: Not Given Documented By: Admin: 08/04/23 08:44 Dose: Not Given Documented By: Admin: 08/04/23 07:43 Dose: Not Given Documented By: Admin: 08/03/23 18:58 Dose: 3 ml Documented By: Admin: 08/03/23 15:17 Dose: 3 ml Documented By: Admin: 08/03/23 09:12 Dose: 3 ml Documented By: Admin: 08/03/23 05:48 Dose: 3 ml Documented By: Admin: 08/03/23 00:46 Dose: 3 ml Documented By: Admin: 08/02/23 19:02 Dose: 3 ml Documented By: LOULOU Aspirin (Aspirin Ec 81 Mg Tablet) 81 mg PO DAILY [facility] Last Admin: 08/06/23 08:02 Dose: 81 mg Documented By: Admin: 08/05/23 08:29 Dose: 81 mg Documented By: Admin: 08/04/23 08:03 Dose: 81 mg Documented By: Admin: 08/03/23 10:37 Dose: Not Given Documented By: RAFAEL Budesonide (Budesonide 0.5 Mg/2 Ml Neb) 0.5 mg INH RTBID [facility] Last Admin: 08/06/23 07:49 Dose: 0.5 mg Documented By: HOANG(2) Admin: 08/05/23 18:44 Dose: 0.5 mg Documented By: Admin: 08/05/23 06:03 Dose: 0.5 mg Documented By: Admin: 08/04/23 20:44 Dose: 0.5 mg Documented By: Admin: 08/04/23 07:45 Dose: 0.5 mg Documented By: Admin: 08/03/23 18:58 Dose: 0.5 mg Documented By: Admin: 08/03/23 05:49 Dose: 0.5 mg Documented By: Admin: 08/02/23 19:02 Dose: 0.5 mg Documented By: LOULOU Bupropion HCl (Bupropion Sr 150 Mg Tab) 150 mg PO BEDTIME [facility] Last Admin: 08/05/23 20:43 Dose: 150 mg Documented By: Admin: 08/04/23 20:26 Dose: 150 mg Documented By: Admin: 08/03/23 20:55 Dose: Not Given Documented By: FM Carvedilol (Carvedilol 3.125 Mg Tablet) 3.125 mg PO BID [facility] Last Admin: 08/06/23 08:02 Dose: 3.125 mg Documented By: Admin: 08/05/23 20:50 Dose: Not Given Documented By: Admin: 08/05/23 08:29 Dose: 3.125 mg Documented By: Admin: 08/04/23 20:27 Dose: 3.125 mg Documented By: Admin: 08/04/23 08:02 Dose: 3.125 mg Documented By: Admin: 08/03/23 20:55 Dose: Not Given Documented By: Admin: 08/03/23 10:37 Dose: Not Given Documented By: RAFAEL Digoxin (Digoxin 500 Mcg/2 Ml Ampul) 500 mcg IV NOW ONE Stop: 08/04/23 08:31 Last Admin: 08/04/23 10:29 Dose: Not Given Documented By: RAFAEL Digoxin (Digoxin 500 Mcg/2 Ml Ampul) 250 mcg IV Q6H [facility] Stop: 08/05/23 02:31 Famotidine (Famotidine 20 Mg/2 Ml Vial) 20 mg IV BID [facility] Last Admin: 08/02/23 22:33 Dose: 20 mg Documented By: FM Famotidine (Famotidine 20 Mg/2 Ml Vial) 20 mg IV BEDTIME [facility] Last Admin: 08/04/23 20:27 Dose: 20 mg Documented By: Admin: 08/03/23 20:29 Dose: 20 mg Documented By: FM Famotidine (Famotidine 20 Mg Tablet) 20 mg PO BEDTIME [facility] Last Admin: 08/05/23 20:44 Dose: 20 mg Documented By: MS Fenofibrate (Fenofibrate, Micronized 67 Mg Capsule) 201 mg PO DAILY [facility] Last Admin: 08/06/23 08:02 Dose: 201 mg Documented By: Admin: 08/05/23 08:29 Dose: 201 mg Documented By: Admin: 08/04/23 08:02 Dose: 201 mg Documented By: Admin: 08/03/23 10:38 Dose: Not Given Documented By: RAFAEL Furosemide (Furosemide 40 Mg/4 Ml Vial) 40 mg IV NOW ONE Stop: 08/02/23 17:45 Last Admin: 08/02/23 18:11 Dose: 40 mg Documented By: JUAN Furosemide (Furosemide 40 Mg/4 Ml Vial) 40 mg IV Q12H [facility] Last Admin: 08/06/23 08:25 Dose: Not Given Documented By: Admin: 08/05/23 18:15 Dose: 40 mg Documented By: Admin: 08/05/23 05:53 Dose: 40 mg Documented By: Admin: 08/04/23 19:46 Dose: 40 mg Documented By: Admin: 08/04/23 06:15 Dose: 40 mg Documented By: Admin: 08/03/23 19:45 Dose: 40 mg Documented By: Admin: 08/03/23 06:05 Dose: 40 mg Documented By: FM Heparin Sodium (Porcine) (Heparin 5,000 Unit/Ml Vial) 5,000 unit SUBCUT BID [facility] Last Admin: 08/04/23 08:03 Dose: 5,000 unit Documented By: Admin: 08/03/23 20:27 Dose: 5,000 unit Documented By: Admin: 08/03/23 08:20 Dose: 5,000 unit Documented By: Admin: 08/02/23 22:31 Dose: 5,000 unit Documented By: LONNIE Heparin Sodium (Porcine) (Heparin 5,000 Unit/Ml Vial) 7,500 unit SUBCUT Q8HR [facility] Last Admin: 08/06/23 06:38 Dose: 7,500 unit Documented By: Admin: 08/05/23 20:51 Dose: 7,500 unit Documented By: Admin: 08/05/23 14:50 Dose: 7,500 unit Documented By: Admin: 08/05/23 05:53 Dose: 7,500 unit Documented By: Admin: 08/04/23 21:19 Dose: 7,500 unit Documented By: Admin: 08/04/23 13:15 Dose: 7,500 unit Documented By: RAFAEL Sodium Chloride (Normal Saline 0.9%) 1,000 mls @ 500 mls/hr IV BOLUS ONE Stop: 08/02/23 19:30 Last Infusion: 08/02/23 19:45 Dose: Infused Documented By: Admin: 08/02/23 17:33 Dose: 500 mls/hr Documented By: JUAN Ceftriaxone Sodium 1,000 mg/ (Sodium Chloride) 100 mls @ 200 mls/hr IV NOW ONE Stop: 08/02/23 17:34 Last Infusion: 08/02/23 18:19 Dose: Infused Documented By: Admin: 08/02/23 17:43 Dose: 200 mls/hr Documented By: JUAN Azithromycin 500 mg/ Dextrose 250 mls @ 250 mls/hr IV NOW ONE Stop: 08/02/23 18:22 Last Infusion: 08/02/23 19:40 Dose: Infused Documented By: Admin: 08/02/23 18:25 Dose: 250 mls/hr Documented By: JUAN Dextrose (D10w) 100 mls @ 999 mls/hr IV PRN PRN PRN Reason: Hypoglycemia Azithromycin 500 mg/ Dextrose 250 mls @ 250 mls/hr IV Q24H [facility] Last Admin: 08/02/23 18:39 Dose: Not Given Documented By: RB Ceftriaxone Sodium 2,000 mg/ (Sodium Chloride) 100 mls @ 200 mls/hr IV Q24H [facility] Last Admin: 08/02/23 18:39 Dose: Not Given Documented By: RB Azithromycin 500 mg/ Dextrose 250 mls @ 250 mls/hr IV Q24H [facility] Stop: 08/04/23 19:29 Last Admin: 08/04/23 18:40 Dose: 250 mls/hr Documented By: Infusion: 08/03/23 20:24 Dose: Infused Documented By: Admin: 08/03/23 18:48 Dose: 250 mls/hr Documented By: RAFAEL Ceftriaxone Sodium 2,000 mg/ (Sodium Chloride) 100 mls @ 200 mls/hr IV Q24H [facility] Stop: 08/06/23 17:59 Last Admin: 08/05/23 17:02 Dose: 200 mls/hr Documented By: Infusion: 08/04/23 18:20 Dose: Infused Documented By: Admin: 08/04/23 17:50 Dose: 200 mls/hr Documented By: Infusion: 08/03/23 20:23 Dose: Infused Documented By: Admin: 08/03/23 17:20 Dose: 200 mls/hr Documented By: RAFAEL Ceftriaxone Sodium 1,000 mg/ (Sodium Chloride) 100 mls @ 200 mls/hr IV NOW ONE Stop: 08/02/23 19:14 Last Infusion: 08/02/23 20:04 Dose: Infused Documented By: Admin: 08/02/23 19:32 Dose: 200 mls/hr Documented By: JUAN Insulin Glargine (Insulin Glargine 100 Unit/Ml 3ml Pen) 22 unit SUBCUT BID [facility] Last Admin: 08/03/23 10:41 Dose: 22 unit Documented By: RAFAEL Co-signed By: (2) Insulin Glargine (Insulin Glargine 100 Unit/Ml 3ml Pen) 26 unit SUBCUT BID [facility] Last Admin: 08/06/23 08:03 Dose: 26 unit Documented By: MP Co-signed By: BRIGHT Admin: 08/05/23 20:44 Dose: 26 unit Documented By: Co-signed By: Admin: 08/05/23 08:30 Dose: 26 unit Documented By: MP Co-signed By: BRIGHT Admin: 08/04/23 20:27 Dose: 26 unit Documented By: Co-signed By: IVANIA Admin: 08/04/23 08:24 Dose: 26 unit Documented By: RAFAEL Co-signed By: BRIGHT Admin: 08/03/23 20:40 Dose: 26 unit Documented By: LONNIE Co-signed By: IVANIA Insulin Human Lispro (Insulin Lispro 100 Unit/Ml 3ml Vial) 0 unit SUBCUT [facility]; Protocol Last Admin: 08/04/23 10:29 Dose: Not Given Documented By: Admin: 08/03/23 08:20 Dose: 8 unit Documented By: RAFAEL Co-signed By: (2) Admin: 08/02/23 22:31 Dose: 2 unit Documented By: LONNIE Co-signed By: ANGEL LUIS Insulin Human Lispro (Insulin Lispro 100 Unit/Ml 3ml Vial) 0 unit SUBCUT [facility]; Protocol Last Admin: 08/06/23 12:03 Dose: 4 unit Documented By: MP Co-signed By: BRIGHT Admin: 08/06/23 08:01 Dose: Not Given Documented By: Admin: 08/05/23 20:44 Dose: 7 unit Documented By: Co-signed By: Admin: 08/05/23 17:06 Dose: 12 unit Documented By: MP Co-signed By: BRIGHT Admin: 08/05/23 11:53 Dose: 4 unit Documented By: MP Co-signed By: BRIGHT Admin: 08/05/23 08:30 Dose: 4 unit Documented By: MP Co-signed By: BRIGHT Admin: 08/04/23 20:28 Dose: 10 unit Documented By: Co-signed By: IVANIA Admin: 08/04/23 17:49 Dose: 7 unit Documented By: RAFAEL Co-signed By: BRIGHT Admin: 08/04/23 12:05 Dose: 10 unit Documented By: RAFAEL Co-signed By: BRIGHT Admin: 08/04/23 08:24 Dose: 10 unit Documented By: RAFAEL Co-signed By: BRIGHT Admin: 08/03/23 20:41 Dose: 10 unit Documented By: LONNIE Co-signed By: IVANIA Admin: 08/03/23 17:21 Dose: 12 unit Documented By: RAFAEL Co-signed By: (2) Admin: 08/03/23 12:29 Dose: 12 unit Documented By: RAFAEL Co-signed By: (2) Methylprednisolone (Methylprednisolone 125 Mg/2 Ml Vial) 125 mg IV NOW ONE Stop: 08/02/23 17:34 Last Admin: 08/02/23 17:41 Dose: 125 mg Documented By: JUAN Methylprednisolone (Methylprednisolone 125 Mg/2 Ml Vial) 60 mg IV Q6HR [facility] Last Admin: 08/04/23 05:22 Dose: 60 mg Documented By: Admin: 08/04/23 00:45 Dose: 60 mg Documented By: Admin: 08/03/23 17:21 Dose: 60 mg Documented By: Admin: 08/03/23 12:40 Dose: 60 mg Documented By: Admin: 08/03/23 05:21 Dose: 60 mg Documented By: Admin: 08/03/23 00:46 Dose: 60 mg Documented By: LONNIE Methylprednisolone (Methylprednisolone 125 Mg/2 Ml Vial) 60 mg IV Q12H [facility] Last Admin: 08/04/23 09:01 Dose: 60 mg Documented By: RAFAEL Metoprolol Tartrate (Metoprolol Tartrate 5 Mg/5 Ml Inj) 5 mg IV NOW ONE Stop: 08/04/23 08:13 Last Admin: 08/04/23 08:15 Dose: 5 mg Documented By: RAFAEL Naloxone HCl (Naloxone 0.4 Mg/Ml Vial) 0.2 mg IV Q2MIN PRN PRN Reason: Opiate Reversal Potassium Chloride (Potassium Chloride 20 Meq Tab) 40 meq PO Q6H [facility] Stop: 08/04/23 19:16 Last Admin: 08/04/23 18:24 Dose: 40 meq Documented By: Admin: 08/04/23 13:15 Dose: 40 meq Documented By: RAFAEL Prednisone (Prednisone 20 Mg Tablet) 40 mg PO DAILY [facility] Last Admin: 08/06/23 08:02 Dose: 40 mg Documented By: Admin: 08/05/23 08:29 Dose: 40 mg Documented By: MP Torsemide (Torsemide 10 Mg Tablet) 10 mg PO DAILY [facility] Last Admin: 08/06/23 08:02 Dose: 10 mg Documented By: MP Vital Signs Vital signs: Vital Signs - 8 hr 08/02/23 16:53 08/02/23 16:55 08/02/23 16:56 Temperature 97.8 F Pulse Rate 97 H 97 H Respiratory Rate 10 L 32 H Blood Pressure 126/58 L 126/58 L Pulse Oximetry 80 L 83 L Oxygen Delivery Method CPAP CPAP Fraction of Inspired Oxygen 08/02/23 16:56 08/02/23 16:57 08/02/23 16:57 Temperature Pulse Rate 97 H 96 H Respiratory Rate 25 H 25 H Blood Pressure 123/64 Pulse Oximetry 75 L 95 Oxygen Delivery Method CPAP Fraction of Inspired Oxygen 08/02/23 17:00 08/02/23 17:02 08/02/23 17:02 Temperature Pulse Rate 96 H 95 H Respiratory Rate 29 H 27 H Blood Pressure 110/91 H Pulse Oximetry 96 97 Oxygen Delivery Method Fraction of Inspired Oxygen 08/02/23 17:10 08/02/23 17:10 08/02/23 17:10 Temperature Pulse Rate 91 H Respiratory Rate 27 H Blood Pressure 108/56 L 116/56 L Pulse Oximetry 96 Oxygen Delivery Method Fraction of Inspired Oxygen 100 08/02/23 17:12 08/02/23 17:12 08/02/23 17:16 Temperature Pulse Rate 91 H 90 Respiratory Rate 29 H 25 H Blood Pressure 108/56 L Pulse Oximetry 97 97 Oxygen Delivery Method Fraction of Inspired Oxygen 08/02/23 17:16 08/02/23 17:20 08/02/23 17:20 Temperature Pulse Rate 92 H Respiratory Rate 19 Blood Pressure 99/57 L 99/63 Pulse Oximetry 96 Oxygen Delivery Method Fraction of Inspired Oxygen 08/02/23 17:25 08/02/23 17:25 08/02/23 17:30 Temperature Pulse Rate 90 Respiratory Rate 21 Blood Pressure 96/55 L 87/54 L Pulse Oximetry 97 Oxygen Delivery Method Fraction of Inspired Oxygen 08/02/23 17:30 08/02/23 17:35 08/02/23 17:35 Temperature Pulse Rate 87 87 Respiratory Rate 17 16 Blood Pressure 93/51 L Pulse Oximetry 96 96 Oxygen Delivery Method Fraction of Inspired Oxygen 08/02/23 17:40 08/02/23 17:40 08/02/23 17:46 Temperature Pulse Rate 87 Respiratory Rate 19 Blood Pressure 85/51 L 82/51 L Pulse Oximetry Oxygen Delivery Method Fraction of Inspired Oxygen 08/02/23 17:46 Temperature Pulse Rate 86 Respiratory Rate 20 Blood Pressure Pulse Oximetry 91 Oxygen Delivery Method BiPAP Fraction of Inspired Oxygen <Gabriela Castellano MD - Last Filed: 08/03/23 02:55> Orders Ordered: Discontinued Medications Acetaminophen (Acetaminophen 325 Mg Tablet) 650 mg PO Q6H PRN PRN Reason: Fever/Mild Pain (1-3) Last Admin: 08/04/23 18:23 Dose: 650 mg Documented By: RAFAEL Acetazolamide (Acetazolamide 250 Mg Tablet) 250 mg PO NOW ONE Stop: 08/02/23 19:03 Last Admin: 08/02/23 23:41 Dose: Not Given Documented By: LONNIE Albuterol/Ipratropium (Albuterol/Ipratropium 3 Ml Ampul) 3 ml INH Q20M [facility] Stop: 08/02/23 17:56 Last Admin: 08/02/23 18:00 Dose: 3 ml Documented By: Admin: 08/02/23 17:38 Dose: 3 ml Documented By: Admin: 08/02/23 17:27 Dose: 3 ml Documented By: LOULOU Albuterol/Ipratropium (Albuterol/Ipratropium 3 Ml Ampul) 3 ml INH [id number] JAY JAY Albuterol/Ipratropium (Albuterol/Ipratropium 3 Ml Ampul) 3 ml INH [id number] JAY JAY Last Admin: 08/06/23 11:57 Dose: Not Given Documented By: Admin: 08/06/23 07:49 Dose: 3 ml Documented By: HOANG(2) Admin: 08/05/23 23:02 Dose: 3 ml Documented By: Admin: 08/05/23 18:44 Dose: 3 ml Documented By: Admin: 08/05/23 13:37 Dose: 3 ml Documented By: Admin: 08/05/23 09:39 Dose: 3 ml Documented By: Admin: 08/05/23 06:03 Dose: 3 ml Documented By: Admin: 08/04/23 23:14 Dose: 3 ml Documented By: Admin: 08/04/23 20:44 Dose: 3 ml Documented By: Admin: 08/04/23 15:22 Dose: Not Given Documented By: Admin: 08/04/23 10:22 Dose: Not Given Documented By: Admin: 08/04/23 08:44 Dose: Not Given Documented By: Admin: 08/04/23 07:43 Dose: Not Given Documented By: Admin: 08/03/23 18:58 Dose: 3 ml Documented By: Admin: 08/03/23 15:17 Dose: 3 ml Documented By: Admin: 08/03/23 09:12 Dose: 3 ml Documented By: Admin: 08/03/23 05:48 Dose: 3 ml Documented By: Admin: 08/03/23 00:46 Dose: 3 ml Documented By: Admin: 08/02/23 19:02 Dose: 3 ml Documented By: LOULOU Aspirin (Aspirin Ec 81 Mg Tablet) 81 mg PO DAILY [facility] Last Admin: 08/06/23 08:02 Dose: 81 mg Documented By: Admin: 08/05/23 08:29 Dose: 81 mg Documented By: Admin: 08/04/23 08:03 Dose: 81 mg Documented By: Admin: 08/03/23 10:37 Dose: Not Given Documented By: RAFAEL Budesonide (Budesonide 0.5 Mg/2 Ml Neb) 0.5 mg INH RTBID [facility] Last Admin: 08/06/23 07:49 Dose: 0.5 mg Documented By: HOANG(2) Admin: 08/05/23 18:44 Dose: 0.5 mg Documented By: Admin: 08/05/23 06:03 Dose: 0.5 mg Documented By: Admin: 08/04/23 20:44 Dose: 0.5 mg Documented By: Admin: 08/04/23 07:45 Dose: 0.5 mg Documented By: Admin: 08/03/23 18:58 Dose: 0.5 mg Documented By: Admin: 08/03/23 05:49 Dose: 0.5 mg Documented By: Admin: 08/02/23 19:02 Dose: 0.5 mg Documented By: LOULOU Bupropion HCl (Bupropion Sr 150 Mg Tab) 150 mg PO BEDTIME [facility] Last Admin: 08/05/23 20:43 Dose: 150 mg Documented By: Admin: 08/04/23 20:26 Dose: 150 mg Documented By: Admin: 08/03/23 20:55 Dose: Not Given Documented By: LONNIE Carvedilol (Carvedilol 3.125 Mg Tablet) 3.125 mg PO BID [facility] Last Admin: 08/06/23 08:02 Dose: 3.125 mg Documented By: Admin: 08/05/23 20:50 Dose: Not Given Documented By: Admin: 08/05/23 08:29 Dose: 3.125 mg Documented By: Admin: 08/04/23 20:27 Dose: 3.125 mg Documented By: Admin: 08/04/23 08:02 Dose: 3.125 mg Documented By: Admin: 08/03/23 20:55 Dose: Not Given Documented By: Admin: 08/03/23 10:37 Dose: Not Given Documented By: RAFAEL Digoxin (Digoxin 500 Mcg/2 Ml Ampul) 500 mcg IV NOW ONE Stop: 08/04/23 08:31 Last Admin: 08/04/23 10:29 Dose: Not Given Documented By: RAFAEL Digoxin (Digoxin 500 Mcg/2 Ml Ampul) 250 mcg IV Q6H [facility] Stop: 08/05/23 02:31 Famotidine (Famotidine 20 Mg/2 Ml Vial) 20 mg IV BID [facility] Last Admin: 08/02/23 22:33 Dose: 20 mg Documented By: LONNIE Famotidine (Famotidine 20 Mg/2 Ml Vial) 20 mg IV BEDTIME [facility] Last Admin: 08/04/23 20:27 Dose: 20 mg Documented By: Admin: 08/03/23 20:29 Dose: 20 mg Documented By: FM Famotidine (Famotidine 20 Mg Tablet) 20 mg PO BEDTIME [facility] Last Admin: 08/05/23 20:44 Dose: 20 mg Documented By: Fenofibrate (Fenofibrate, Micronized 67 Mg Capsule) 201 mg PO DAILY [facility] Last Admin: 08/06/23 08:02 Dose: 201 mg Documented By: Admin: 08/05/23 08:29 Dose: 201 mg Documented By: Admin: 08/04/23 08:02 Dose: 201 mg Documented By: Admin: 08/03/23 10:38 Dose: Not Given Documented By: RAFAEL Furosemide (Furosemide 40 Mg/4 Ml Vial) 40 mg IV NOW ONE Stop: 08/02/23 17:45 Last Admin: 08/02/23 18:11 Dose: 40 mg Documented By: JUAN Furosemide (Furosemide 40 Mg/4 Ml Vial) 40 mg IV Q12H [facility] Last Admin: 08/06/23 08:25 Dose: Not Given Documented By: Admin: 08/05/23 18:15 Dose: 40 mg Documented By: Admin: 08/05/23 05:53 Dose: 40 mg Documented By: Admin: 08/04/23 19:46 Dose: 40 mg Documented By: Admin: 08/04/23 06:15 Dose: 40 mg Documented By: Admin: 08/03/23 19:45 Dose: 40 mg Documented By: Admin: 08/03/23 06:05 Dose: 40 mg Documented By: FM Heparin Sodium (Porcine) (Heparin 5,000 Unit/Ml Vial) 5,000 unit SUBCUT BID [facility] Last Admin: 08/04/23 08:03 Dose: 5,000 unit Documented By: Admin: 08/03/23 20:27 Dose: 5,000 unit Documented By: Admin: 08/03/23 08:20 Dose: 5,000 unit Documented By: Admin: 08/02/23 22:31 Dose: 5,000 unit Documented By: FM Heparin Sodium (Porcine) (Heparin 5,000 Unit/Ml Vial) 7,500 unit SUBCUT Q8HR [facility] Last Admin: 08/06/23 06:38 Dose: 7,500 unit Documented By: Admin: 08/05/23 20:51 Dose: 7,500 unit Documented By: Admin: 08/05/23 14:50 Dose: 7,500 unit Documented By: Admin: 08/05/23 05:53 Dose: 7,500 unit Documented By: Admin: 08/04/23 21:19 Dose: 7,500 unit Documented By: Admin: 08/04/23 13:15 Dose: 7,500 unit Documented By: RAFAEL Sodium Chloride (Normal Saline 0.9%) 1,000 mls @ 500 mls/hr IV BOLUS ONE Stop: 08/02/23 19:30 Last Infusion: 08/02/23 19:45 Dose: Infused Documented By: DKMirna Admin: 08/02/23 17:33 Dose: 500 mls/hr Documented By: JUAN Ceftriaxone Sodium 1,000 mg/ (Sodium Chloride) 100 mls @ 200 mls/hr IV NOW ONE Stop: 08/02/23 17:34 Last Infusion: 08/02/23 18:19 Dose: Infused Documented By: Admin: 08/02/23 17:43 Dose: 200 mls/hr Documented By: JUAN Azithromycin 500 mg/ Dextrose 250 mls @ 250 mls/hr IV NOW ONE Stop: 08/02/23 18:22 Last Infusion: 08/02/23 19:40 Dose: Infused Documented By: Admin: 08/02/23 18:25 Dose: 250 mls/hr Documented By: JUAN Dextrose (D10w) 100 mls @ 999 mls/hr IV PRN PRN PRN Reason: Hypoglycemia Azithromycin 500 mg/ Dextrose 250 mls @ 250 mls/hr IV Q24H [facility] Last Admin: 08/02/23 18:39 Dose: Not Given Documented By: RB Ceftriaxone Sodium 2,000 mg/ (Sodium Chloride) 100 mls @ 200 mls/hr IV Q24H [facility] Last Admin: 08/02/23 18:39 Dose: Not Given Documented By: RB Azithromycin 500 mg/ Dextrose 250 mls @ 250 mls/hr IV Q24H JAY JAY Stop: 08/04/23 19:29 Last Admin: 08/04/23 18:40 Dose: 250 mls/hr Documented By: Infusion: 08/03/23 20:24 Dose: Infused Documented By: Admin: 08/03/23 18:48 Dose: 250 mls/hr Documented By: RAFAEL Ceftriaxone Sodium 2,000 mg/ (Sodium Chloride) 100 mls @ 200 mls/hr IV Q24H [facility] Stop: 08/06/23 17:59 Last Admin: 08/05/23 17:02 Dose: 200 mls/hr Documented By: Infusion: 08/04/23 18:20 Dose: Infused Documented By: Admin: 08/04/23 17:50 Dose: 200 mls/hr Documented By: Infusion: 08/03/23 20:23 Dose: Infused Documented By: Admin: 08/03/23 17:20 Dose: 200 mls/hr Documented By: RAFAEL Ceftriaxone Sodium 1,000 mg/ (Sodium Chloride) 100 mls @ 200 mls/hr IV NOW ONE Stop: 08/02/23 19:14 Last Infusion: 08/02/23 20:04 Dose: Infused Documented By: Admin: 08/02/23 19:32 Dose: 200 mls/hr Documented By: JUAN Insulin Glargine (Insulin Glargine 100 Unit/Ml 3ml Pen) 22 unit SUBCUT BID [facility] Last Admin: 08/03/23 10:41 Dose: 22 unit Documented By: RAFAEL Co-signed By: (2) Insulin Glargine (Insulin Glargine 100 Unit/Ml 3ml Pen) 26 unit SUBCUT BID [facility] Last Admin: 08/06/23 08:03 Dose: 26 unit Documented By: MP Co-signed By: BRIGHT Admin: 08/05/23 20:44 Dose: 26 unit Documented By: Co-signed By: Admin: 08/05/23 08:30 Dose: 26 unit Documented By: MP Co-signed By: BRIGHT Admin: 08/04/23 20:27 Dose: 26 unit Documented By: Co-signed By: IVANIA Admin: 08/04/23 08:24 Dose: 26 unit Documented By: RAFAEL Co-signed By: BRIGHT Admin: 08/03/23 20:40 Dose: 26 unit Documented By: LONNIE Co-signed By: IVANIA Insulin Human Lispro (Insulin Lispro 100 Unit/Ml 3ml Vial) 0 unit SUBCUT [facility]; Protocol Last Admin: 08/04/23 10:29 Dose: Not Given Documented By: Admin: 08/03/23 08:20 Dose: 8 unit Documented By: RAFAEL Co-signed By: (2) Admin: 08/02/23 22:31 Dose: 2 unit Documented By: LONNIE Co-signed By: ANGEL LUIS Insulin Human Lispro (Insulin Lispro 100 Unit/Ml 3ml Vial) 0 unit SUBCUT [facility]; Protocol Last Admin: 08/06/23 12:03 Dose: 4 unit Documented By: MP Co-signed By: BRIGHT Admin: 08/06/23 08:01 Dose: Not Given Documented By: Admin: 08/05/23 20:44 Dose: 7 unit Documented By: Co-signed By: Admin: 08/05/23 17:06 Dose: 12 unit Documented By: MP Co-signed By: BRIGHT Admin: 08/05/23 11:53 Dose: 4 unit Documented By: MP Co-signed By: BRIGHT Admin: 08/05/23 08:30 Dose: 4 unit Documented By: MP Co-signed By: BRIGHT Admin: 08/04/23 20:28 Dose: 10 unit Documented By: Co-signed By: IVANIA Admin: 08/04/23 17:49 Dose: 7 unit Documented By: RAFAEL Co-signed By: BRIGHT Admin: 08/04/23 12:05 Dose: 10 unit Documented By: RAFAEL Co-signed By: BRIGHT Admin: 08/04/23 08:24 Dose: 10 unit Documented By: RAFAEL Co-signed By: BRIGHT Admin: 08/03/23 20:41 Dose: 10 unit Documented By: LONNIE Co-signed By: IVANIA Admin: 08/03/23 17:21 Dose: 12 unit Documented By: RAFAEL Co-signed By: [email or web address]) Admin: 08/03/23 12:29 Dose: 12 unit Documented By: RAFAEL Co-signed By: (2) Methylprednisolone (Methylprednisolone 125 Mg/2 Ml Vial) 125 mg IV NOW ONE Stop: 08/02/23 17:34 Last Admin: 08/02/23 17:41 Dose: 125 mg Documented By: DKMirna Methylprednisolone (Methylprednisolone 125 Mg/2 Ml Vial) 60 mg IV Q6HR [facility] Last Admin: 08/04/23 05:22 Dose: 60 mg Documented By: Admin: 08/04/23 00:45 Dose: 60 mg Documented By: Admin: 08/03/23 17:21 Dose: 60 mg Documented By: Admin: 08/03/23 12:40 Dose: 60 mg Documented By: Admin: 05/16/24 05:21 Dose: 60 mg Documented By: Admin: 08/03/23 00:46 Dose: 60 mg Documented By: LONNIE Methylprednisolone (Methylprednisolone 125 Mg/2 Ml Vial) 60 mg IV Q12H [facility] Last Admin: 08/04/23 09:01 Dose: 60 mg Documented By: RAFAEL Metoprolol Tartrate (Metoprolol Tartrate 5 Mg/5 Ml Inj) 5 mg IV NOW ONE Stop: 08/04/23 08:13 Last Admin: 08/04/23 08:15 Dose: 5 mg Documented By: RAFAEL Naloxone HCl (Naloxone 0.4 Mg/Ml Vial) 0.2 mg IV Q2MIN PRN PRN Reason: Opiate Reversal Potassium Chloride (Potassium Chloride 20 Meq Tab) 40 meq PO Q6H [facility] Stop: 08/04/23 19:16 Last Admin: 08/04/23 18:24 Dose: 40 meq Documented By: Admin: 08/04/23 13:15 Dose: 40 meq Documented By: RAFAEL Prednisone (Prednisone 20 Mg Tablet) 40 mg PO DAILY [facility] Last Admin: 08/06/23 08:02 Dose: 40 mg Documented By: Admin: 08/05/23 08:29 Dose: 40 mg Documented By: MP Torsemide (Torsemide 10 Mg Tablet) 10 mg PO DAILY [facility] Last Admin: 08/06/23 08:02 Dose: 10 mg Documented By: MP Vital Signs Vital signs: Vital Signs - 8 hr 08/02/23 16:53 08/02/23 16:55 08/02/23 16:56 Temperature 97.8 F Pulse Rate 97 H 97 H Respiratory Rate 10 L 32 H Blood Pressure 126/58 L 126/58 L Pulse Oximetry 80 L 83 L Oxygen Delivery Method CPAP CPAP Fraction of Inspired Oxygen 08/02/23 16:56 08/02/23 16:57 08/02/23 16:57 Temperature Pulse Rate 97 H 96 H Respiratory Rate 25 H 25 H Blood Pressure 123/64 Pulse Oximetry 75 L 95 Oxygen Delivery Method CPAP Fraction of Inspired Oxygen 08/02/23 17:00 08/02/23 17:02 08/02/23 17:02 Temperature Pulse Rate 96 H 95 H Respiratory Rate 29 H 27 H Blood Pressure 110/91 H Pulse Oximetry 96 97 Oxygen Delivery Method Fraction of Inspired Oxygen 08/02/23 17:10 08/02/23 17:10 08/02/23 17:10 Temperature Pulse Rate 91 H Respiratory Rate 27 H Blood Pressure 108/56 L 116/56 L Pulse Oximetry 96 Oxygen Delivery Method Fraction of Inspired Oxygen 100 08/02/23 17:12 08/02/23 17:12 08/02/23 17:16 Temperature Pulse Rate 91 H 90 Respiratory Rate 29 H 25 H Blood Pressure 108/56 L Pulse Oximetry 97 97 Oxygen Delivery Method Fraction of Inspired Oxygen 08/02/23 17:16 08/02/23 17:20 08/02/23 17:20 Temperature Pulse Rate 92 H Respiratory Rate 19 Blood Pressure 99/57 L 99/63 Pulse Oximetry 96 Oxygen Delivery Method Fraction of Inspired Oxygen 08/02/23 17:25 08/02/23 17:25 08/02/23 17:30 Temperature Pulse Rate 90 Respiratory Rate 21 Blood Pressure 96/55 L 87/54 L Pulse Oximetry 97 Oxygen Delivery Method Fraction of Inspired Oxygen 08/02/23 17:30 08/02/23 17:35 08/02/23 17:35 Temperature Pulse Rate 87 87 Respiratory Rate 17 16 Blood Pressure 93/51 L Pulse Oximetry 96 96 Oxygen Delivery Method Fraction of Inspired Oxygen 08/02/23 17:40 08/02/23 17:40 08/02/23 17:46 Temperature Pulse Rate 87 Respiratory Rate 19 Blood Pressure 85/51 L 82/51 L Pulse Oximetry Oxygen Delivery Method Fraction of Inspired Oxygen 08/02/23 17:46 Temperature Pulse Rate 86 Respiratory Rate 20 Blood Pressure Pulse Oximetry 91 Oxygen Delivery Method BiPAP Fraction of Inspired Oxygen Medical Decision Making <Romero Loaiza, - Last Filed: 08/08/23 18:01> Medical Records Medical records reviewed: Yes I reviewed the patient's medical records. Lab Data Lab results reviewed: Yes I reviewed the patient's lab results. 08/05/23 06:20 08/05/23 06:20 Labs: Lab Results 08/02/23 08/02/23 08/02/23 Range/Units 16:09 16:45 17:08 WBC 11.7 H (4.5-11.0) X10^3/uL RBC 3.41 L (4.0-5.2) X10^6/uL Hgb 11.4 L (12.0-16.0) g/dL Hct 35.9 L (36-46) % MCV 105.3 H (80-100) fL MCH 33.4 (26-34) PG MCHC 31.8 (30-36) % RDW 17.4 H (11.6-14.8) % Plt Count 374 (150-400) X10^3/uL Neut % (Auto) 71.9 (50-75) % Lymph % (Auto) 15.9 L (25-40) % Will % (Auto) 10.6 (3-14) % Eos % (Auto) 0.6 L (2-4) % Baso % (Auto) 1.0 (0-2) % Neut # (Auto) 8400 H (4767-5400) /uL Lymph # (Auto) 1900 (6670-4959) /uL Will # (Auto) 1200 H (0-900) /uL Eos # (Auto) 100 (0-450) /uL Baso # (Auto) 100 (0-100) /uL PT 11.7 (9.4-12.5) SECONDS INR 1.0 (0.9-1.3) APTT 30 (25.1-36.5) SECONDS ABG Sample Site Left brachial ABG pH 7.19 L* (7.35-7.45) ABG pCO2 125.7 H* (35-45) mmHg ABG pO2 47 L* (80-100) mmHg ABG HCO3 48 H (23-27) mmol/L ABG Total CO2 > 50 H (23-27) mmol/L ABG O2 Saturation 67 L* (95-100) % ABG Base Excess 21.0 H (-2-3) mmol/L FiO2 80 Sodium 141 (137-145) mmol/L Potassium 4.7 (3.4-5.1) mmol/L Chloride 92 L (98-107) mmol/L Carbon Dioxide 41 H* (22-32) mmol/L BUN 37 H (7-17) mg/dL Creatinine 1.53 H (0.52-1.04) mg/dL Estimated GFR 38 L (>60) mL/min BUN/Creatinine Ratio 24.2 H (6-22) Glucose 205 H (80-110) mg/dL Lactate 1.0 (0.7-2.1) mmol/L Calcium 10.6 H (8.4-10.2) mg/dL Magnesium 3.1 H (1.6-2.3) mg/dL Total Bilirubin 0.8 (0.2-1.3) mg/dL AST 29 (14-36) IU/L ALT 13 (<35) IU/L Alkaline Phosphatase 49 (38-126) U/L Total Creatine Kinase 42 (30-135) U/L Troponin I 0.079 H (0.01-0.034) ng/mL NT-Pro-B Natriuret Pep 81568 H (<125) pg/mL Total Protein 8.5 H (6.3-8.2) g/dL Albumin 4.3 (3.5-5.0) g/dL Globulin 4.2 H (1.7-4.1) g/dL Albumin/Globulin Ratio 1.0 (1.0-2.8) Lipase 40 (23-300) U/L Urine RBC 5-10/hpf H (0-5/HPF) Urine WBC 10-30/hpf H (0-5/HPF) Ur Squamous Epith Cells 1-5 /hpf (0-5/HPF) Urine Bacteria Few (2-10) H (None) Ur Culture Indicated? Specimen cultured Vol Urine Centrifuged 10ml (spun) Imaging Data Chest x-ray: Radiologist's Impression: PROCEDURE: XR CHEST 1V INDICATIONS: SOB TECHNIQUE: One view of the chest was acquired. COMPARISON: [facility], CR, XR CHEST 1V, 06/30/2023, 21:13. [facility], CR, XR CHEST 1V, 06/30/2023, 10:02. FINDINGS: Surgical changes and devices: None. Lungs and pleura: Low lung volumes. Left greater right basal opacities again seen, some of the prior. [id number] left effusion also again seen. Mediastinum: Cardiomediastinal contours are unchanged. Cardiomegaly is suspected. Heart borders are obscured. Bones and chest wall: Unremarkable IMPRESSION: Low lung volumes on single view portable radiograph, limiting evaluation. Similar left greater right basal opacities/atelectasis, and [id number] left effusion again seen. Consider future imaging surveillance to assess for resolution. MDM Narrative Medical decision making narrative: Patient with multiple chronic medical problems. Per her PCM patient is a full code. Patient arrived on a CPAP. Respiratory distress. Initial ABG shows respiratory acidosis with a CO2 of 125. Patient also has a heart failure. Her chest x-ray looks somewhat like pulmonary edema however she does not have any lower extremity edema. Patient did have wheezing. She was given DuoNeb treatments. Was given steroids. Started on antibiotics. Suspect that her symptoms are a combination of COPD/CHF. We will continue to monitor patient. If needed will intubate. Blood pressure has become somewhat tenuous however mean arterial pressures have remained above [address]. Will place central line and start pressors if needed. I discussed the case with Dr. Howard hospitalist on- call who will admit to the ICU. Plan will be is to keep her in the emergency department to make sure that she does not need intubated. Care turned over to night provider to continue to observe and disposition. <Gabriela Castellano MD - Last Filed: 08/03/23 02:55> Lab Data Labs: Lab Results 08/02/23 08/02/23 08/02/23 Range/Units 16:09 16:45 17:08 WBC 11.7 H (4.5-11.0) X10^3/uL RBC 3.41 L (4.0-5.2) X10^6/uL Hgb 11.4 L (12.0-16.0) g/dL Hct 35.9 L (36-46) % MCV 105.3 H (80-100) fL MCH 33.4 (26-34) PG MCHC 31.8 (30-36) % RDW 17.4 H (11.6-14.8) % Plt Count 374 (150-400) X10^3/uL Neut % (Auto) 71.9 (50-75) % Lymph % (Auto) 15.9 L (25-40) % Will % (Auto) 10.6 (3-14) % Eos % (Auto) 0.6 L (2-4) % Baso % (Auto) 1.0 (0-2) % Neut # (Auto) 8400 H (8503-7560) /uL Lymph # (Auto) 1900 (3841-1522) /uL Will # (Auto) 1200 H (0-900) /uL Eos # (Auto) 100 (0-450) /uL Baso # (Auto) 100 (0-100) /uL PT 11.7 (9.4-12.5) SECONDS INR 1.0 (0.9-1.3) APTT 30 (25.1-36.5) SECONDS ABG Sample Site Left brachial ABG pH 7.19 L* (7.35-7.45) ABG pCO2 125.7 H* (35-45) mmHg ABG pO2 47 L* (80-100) mmHg ABG HCO3 48 H (23-27) mmol/L ABG Total CO2 > 50 H (23-27) mmol/L ABG O2 Saturation 67 L* (95-100) % ABG Base Excess 21.0 H (-2-3) mmol/L FiO2 80 Sodium 141 (137-145) mmol/L Potassium 4.7 (3.4-5.1) mmol/L Chloride 92 L (98-107) mmol/L Carbon Dioxide 41 H* (22-32) mmol/L BUN 37 H (7-17) mg/dL Creatinine 1.53 H (0.52-1.04) mg/dL Estimated GFR 38 L (>60) mL/min BUN/Creatinine Ratio 24.2 H (6-22) Glucose 205 H (80-110) mg/dL Lactate 1.0 (0.7-2.1) mmol/L Calcium 10.6 H (8.4-10.2) mg/dL Magnesium 3.1 H (1.6-2.3) mg/dL Total Bilirubin 0.8 (0.2-1.3) mg/dL AST 29 (14-36) IU/L ALT 13 (<35) IU/L Alkaline Phosphatase 49 (38-126) U/L Total Creatine Kinase 42 (30-135) U/L Troponin I 0.079 H (0.01-0.034) ng/mL NT-Pro-B Natriuret Pep 30982 H (<125) pg/mL Total Protein 8.5 H (6.3-8.2) g/dL Albumin 4.3 (3.5-5.0) g/dL Globulin 4.2 H (1.7-4.1) g/dL Albumin/Globulin Ratio 1.0 (1.0-2.8) Lipase 40 (23-300) U/L Urine RBC 5-10/hpf H (0-5/HPF) Urine WBC 10-30/hpf H (0-5/HPF) Ur Squamous Epith Cells 1-5 /hpf (0-5/HPF) Urine Bacteria Few (2-10) H (None) Ur Culture Indicated? Specimen cultured Vol Urine Centrifuged 10ml (spun) MDM Narrative Medical decision making narrative: Patient with multiple chronic medical problems. Per her PCM patient is a full code. Patient arrived on a CPAP. Respiratory distress. Initial ABG shows respiratory acidosis with a CO2 of 125. Patient also has a heart failure. Her chest x-ray looks somewhat like pulmonary edema however she does not have any lower extremity edema. Patient did have wheezing. She was given DuoNeb treatments. Was given steroids. Started on antibiotics. Suspect that her symptoms are a combination of COPD/CHF. We will continue to monitor patient. If needed will intubate. Blood pressure has become somewhat tenuous however mean arterial pressures have remained above [address]. Will place central line and start pressors if needed. I discussed the case with Dr. Howard hospitalist on- call who will admit to the ICU. Plan will be is to keep her in the emergency department to make sure that she does not need intubated. Care turned over to night provider to continue to observe and disposition. [address] Castellano ABG does not show significant improvement however she has not worsening either. PH is similar at 7.2, CO2 has gone from 107-105. BiPAP settings slightly increased to AVAPs 15-28/6. Currently 38% FiO2. In light of the fact that intubation would be extraordinarily difficult as would extubation. We will continue with slightly higher BiPAP and continue to re-evaluate. Will discuss reluctance to intubate at this time with the hospitalist. Critical Care Time <Gabriela Castellano MD - Last Filed: 08/03/23 02:55> Critical Care Time Critical Care Time: Yes Total Critical Care Time: 47 Attestation: Critical care time is separate from other billable procedures. There is a high probability of a significant, sudden or life-threatening deterioration that requires my full and direct attention, intervention and personal management. This critical care time includes consultation with family and other consulting doctors, review of records, and interpretation of data from labs, EKGs and imaging as well as managements of acute respiratory failure with continued BiPAP management and re-evaluation of respiratory status. Decision to not intubate at this time with made. Discharge Plan Departure Patient Disposition: Admitted As Inpatient Clinical Impression: Acute hypercapnic respiratory failure, CHF (congestive heart failure), Acute exacerbation of chronic obstructive airways disease Admit Date/Time: 08/02/23 17:46 Admit Provider: Ramon Howard
[2023-08-02 17:08] LABS: Prothrombin Time 11.7 SECONDS (9.4-12.5)
[2023-08-02 17:10] LABS: Add Manual Diff / Slide Review NO; Basophils Absolute Auto 100 /uL (0-100); Eosinophils Absolute Auto 100 /uL (0-450); Eosinophils Percent Auto 0.6 % (2-4); Hematocrit 35.9 % (36-46); Hemoglobin 11.4 g/dL (12.0-16.0); Lymphocytes Absolute Auto 1900 /uL (1100-4500); Lymphocytes Percent Auto 15.9 % (25-40); Mean Corpuscular HGB Conc 31.8 % (30-36); Mean Corpuscular Hemoglobin 33.4 PG (26-34); Mean Corpuscular Volume 105.3 fL (80-100); Monocytes Absolute Auto 1200 /uL (0-900); Monocytes Percent Auto 10.6 % (3-14); Neutrophils Absolute Auto 8400 /uL (1500-7000); Neutrophils Percent Auto 71.9 % (50-75); Platelet Count 374 X10^3/uL (150-400); Red Blood Cell Count 3.41 X10^6/uL (4.0-5.2); Red Cell Distribution Width 17.4 % (11.6-14.8); White Blood Cell Count 11.7 X10^3/uL (4.5-11.0)
[2023-08-02 17:11] LABS: PTT Partial Thromboplastin Tim 30 SECONDS (25.1-36.5)
[2023-08-02 17:13] LABS: Alanine Aminotransferase 13 IU/L (<35); Albumin 4.3 g/dL (3.5-5.0); Alkaline Phosphatase 49 U/L (38-126); Aspartate Aminotransferase 29 IU/L (14-36); BUN Creatinine Ratio 24.2 (6-22); Bilirubin Total 0.8 mg/dL (0.2-1.3); Blood Urea Nitrogen 37 mg/dL (7-17); Calcium 10.6 mg/dL (8.4-10.2); Chloride 92 mmol/L (98-107); Creatine Kinase 42 U/L (30-135); Estimated Glomerular Filt Rate 38 mL/min (>60); Globulin 4.2 g/dL (1.7-4.1); Glucose 205 mg/dL (80-110); HEMOLYSIS 48 (0-50); Lipase 40 U/L (23-300); Magnesium 3.1 mg/dL (1.6-2.3); Potassium 4.7 mmol/L (3.4-5.1); Sodium 141 mmol/L (137-145); Total Protein 8.5 g/dL (6.3-8.2)
[2023-08-02 17:20] LABS: Carbon Dioxide 41 mmol/L (22-32)
[2023-08-02 17:24] LABS: NT-proBNP (BNP-Adult 18+) 22600 pg/mL (<125); Troponin I 0.079 ng/mL (0.01-0.034)
[2023-08-02] MEDS: ALBUTEROL/IPRATROPIUM 3 ML AMPUL INH ×4 (17:27→19:02)
[2023-08-02] MEDS: SODIUM CHLORIDE 0.9% 1,000 ML 500 ML IV (17:33)
[2023-08-02] MEDS: methylPREDNISolone 125 MG/2 ML VIAL IV (17:41)
[2023-08-02] MEDS: cefTRIAXone 1,000 MG in SODIUM CHLORIDE 0.9% 100 ML 200 MG IV ×2 (17:43→19:32)
[2023-08-02] MEDS: FUROSEMIDE 40 MG/4 ML VIAL IV (18:11)
[2023-08-02 18:25] LABS: PCO2 ABG 125.7 mmHg (35-45); PO2 ABG 47 mmHg (80-100)
[2023-08-02] MEDS: AZITHROMYCIN 500 MG in DEXTROSE 5% IN WATER 250 ML 250 MG IV (18:25)
[2023-08-02 18:26] LABS: Blood Gas Collection Site Left Brachial; Fractionated Inspired Oxygen 80; HCO3 ABG 48 mmol/L (23-27); Oxygen Saturation ABG 67 % (95-100); TCO2 ABG > 50 mmol/L (23-27)
[2023-08-02 18:27] LABS: pH ABG 7.19 (7.35-7.45)
[2023-08-02 18:27] LABS: Urine Volume 10mL (spun)
[2023-08-02 18:28] LABS: Bacteria Urine Few (2-10); Culture Indicated Urine Specimen Cultured; RBC Urine 5-10/HPF (0-5/HPF); Squamous Epithelial Cell Urine 1-5 /HPF (0-5/HPF); WBC Urine 10-30/HPF (0-5/HPF)
[2023-08-02 18:29] LABS: PCO2 ABG 106.9 mmHg (35-45); PO2 ABG 74 mmHg (80-100)
[2023-08-02 18:30] LABS: Allen Test for ABG Passed? Yes, Passed; Blood Gas Collection Site Right Radial; Fractionated Inspired Oxygen 30; HCO3 ABG 47 mmol/L (23-27); Oxygen Saturation ABG 90 % (95-100); TCO2 ABG > 50 mmol/L (23-27)
[2023-08-02 18:31] LABS: pH ABG 7.25 (7.35-7.45)
--- NOTE | 2023-08-02 18:31 | P.HP_ITS ---
History of Present Illness History of Present Illness Date Patient Seen: 08/02/23 Time Patient Seen: 18:31 Chief complaint: Unresponsive Narrative: This patient was a long-term care resident of [facility]. She has a 62-year-old female with a history of COPD and morbid obesity as well as chronic systolic heart failure. She was found to be less responsive today and sent to the ER where she was found to be in acute hypercarbic respiratory failure with a pCO2 of over 110. She was started on BiPAP and remained obtunded about 1 hour later. The patient uses CPAP chronically at night and does have a history of insulin- dependent diabetes as well. The patient can not provide any history as she is obtunded from her hypercarbia. [facility] Medical History PONCE (obstructive sleep apnea) Chronic hypoxemic respiratory failure COPD (chronic obstructive pulmonary disease) DM2 (diabetes mellitus, type 2) HTN (hypertension) Thyroiditis Systolic and diastolic CHF, chronic Obesity Surgical History S/P hernia surgery Family History Mother No pertinent past medical history Father No pertinent past medical history Social History household members: other Smoking Status: Former smoker alcohol intake: former Meds Home Medications and Allergies Home Medications Medication Instructions Recorded Confirmed Type acetaminophen 325 mg tablet 650 mg PO TID 05/25/22 06/27/23 History (Tylenol) aspirin 81 mg tablet,delayed 81 mg PO DAILY 05/25/22 06/27/23 History release budesonide-formoterol HFA 160 2 puff inhalation Q4H PRN Wheezing 05/25/22 06/27/23 History mcg-4.5 mcg/actuation aerosol inhaler bupropion HCl 150 mg tablet,12 hr 150 mg PO BEDTIME 05/25/22 06/27/23 History sustained-release carvedilol 3.125 mg tablet 3.125 mg PO BID 05/25/22 06/27/23 History cyanocobalamin (vitamin B-12) 500 500 mcg PO DAILY 05/25/22 06/27/23 History mcg tablet fenofibrate 160 mg tablet 160 mg PO DAILY 05/25/22 06/27/23 History fluoxetine 20 mg tablet 20 mg PO DAILY 05/25/22 06/27/23 History fluticasone propionate 50 2 spray intranasal DAILY 05/25/22 06/27/23 History mcg/actuation nasal spray,suspension gabapentin 300 mg capsule 300 mg PO BEDTIME 05/25/22 06/27/23 History insulin glargine 100 unit/mL (3 22 unit SUBCUT BID 05/25/22 06/27/23 History mL) subcutaneous pen insulin lispro 100 unit/mL See Protocol SUBCUT TIDWM 05/25/22 06/27/23 History subcutaneous solution (Humalog U-100 Insulin) loratadine 10 mg tablet 10 mg PO DAILY 05/25/22 06/27/23 History magnesium oxide 200 mg PO DAILY 05/25/22 06/27/23 History meclizine 25 mg tablet 25 mg PO Q8HR PRN Dizziness 05/25/22 06/27/23 History montelukast 10 mg tablet 10 mg PO DAILY 05/25/22 06/27/23 History nystatin 100,000 unit/gram topical 1 applic topical BID PRN Rash 05/25/22 06/27/23 History powder ondansetron 4 mg disintegrating 4 mg PO Q8H PRN Nausea 05/25/22 06/27/23 History tablet rosuvastatin 40 mg tablet 40 mg PO DAILY 05/25/22 06/27/23 History sennosides 8.6 mg tablet (senna) 17.2 mg PO BEDTIME 05/25/22 06/27/23 History tiotropium bromide 18 mcg capsule 1 cap inhalation DAILY 05/25/22 06/27/23 History with inhalation device (Spiriva with HandiHaler) trazodone 50 mg tablet 25 mg PO BEDTIME 05/25/22 06/27/23 History albuterol sulfate 90 mcg/actuation 4 puff inhalation Q4H PRN 08/15/22 06/27/23 History aerosol inhaler Shortness Of Breath Or Wheezing levothyroxine 175 mcg tablet 175 mcg PO DAILY 08/15/22 06/27/23 History potassium chloride 10 mEq 20 meq PO DAILY 08/15/22 06/27/23 History tablet,extended release midodrine 5 mg tablet 10 mg PO BID 05/20/23 06/27/23 History torsemide 20 mg DAILY 05/20/23 06/27/23 History torsemide 10 mg tablet 10 mg PO BEDTIME 05/20/23 06/27/23 History Allergies Allergy/AdvReac Type Severity Reaction Status Date / Time No Known Drug Allergies Allergy Verified 05/25/22 12:43 Review of Systems Review of Systems Narrative: Not obtainable due to obtundation. Exam Vital Signs (past 8 hours): - 08/02/23 16:53 08/02/23 16:55 08/02/23 16:56 Temperature 97.8 F Pulse Rate 97 H 97 H Respiratory Rate 10 L 32 H Blood Pressure 126/58 L 126/58 L Pulse Oximetry 80 L 83 L Oxygen Delivery Method CPAP CPAP Fraction of Inspired Oxygen 08/02/23 16:56 08/02/23 16:57 08/02/23 16:57 Temperature Pulse Rate 97 H 96 H Respiratory Rate 25 H 25 H Blood Pressure 123/64 Pulse Oximetry 75 L 95 Oxygen Delivery Method CPAP Fraction of Inspired Oxygen 08/02/23 17:00 08/02/23 17:02 08/02/23 17:02 Temperature Pulse Rate 96 H 95 H Respiratory Rate 29 H 27 H Blood Pressure 110/91 H Pulse Oximetry 96 97 Oxygen Delivery Method Fraction of Inspired Oxygen 08/02/23 17:10 08/02/23 17:10 08/02/23 17:10 Temperature Pulse Rate 91 H Respiratory Rate 27 H Blood Pressure 108/56 L 116/56 L Pulse Oximetry 96 Oxygen Delivery Method Fraction of Inspired Oxygen 100 08/02/23 17:12 08/02/23 17:12 08/02/23 17:16 Temperature Pulse Rate 91 H 90 Respiratory Rate 29 H 25 H Blood Pressure 108/56 L Pulse Oximetry 97 97 Oxygen Delivery Method Fraction of Inspired Oxygen 08/02/23 17:16 08/02/23 17:20 08/02/23 17:20 Temperature Pulse Rate 92 H Respiratory Rate 19 Blood Pressure 99/57 L 99/63 Pulse Oximetry 96 Oxygen Delivery Method Fraction of Inspired Oxygen 08/02/23 17:25 08/02/23 17:25 08/02/23 17:30 Temperature Pulse Rate 90 Respiratory Rate 21 Blood Pressure 96/55 L 87/54 L Pulse Oximetry 97 Oxygen Delivery Method Fraction of Inspired Oxygen 08/02/23 17:30 08/02/23 17:35 08/02/23 17:35 Temperature Pulse Rate 87 87 Respiratory Rate 17 16 Blood Pressure 93/51 L Pulse Oximetry 96 96 Oxygen Delivery Method Fraction of Inspired Oxygen 08/02/23 17:40 08/02/23 17:40 08/02/23 17:46 Temperature Pulse Rate 87 Respiratory Rate 19 Blood Pressure 85/51 L 82/51 L Pulse Oximetry Oxygen Delivery Method Fraction of Inspired Oxygen 08/02/23 17:46 08/02/23 17:50 08/02/23 17:50 Temperature Pulse Rate 86 86 Respiratory Rate 20 23 Blood Pressure 88/53 L Pulse Oximetry 91 90 L Oxygen Delivery Method BiPAP BiPAP Fraction of Inspired Oxygen 08/02/23 17:55 08/02/23 17:55 08/02/23 18:00 Temperature Pulse Rate 86 86 Respiratory Rate 23 23 Blood Pressure 88/51 L Pulse Oximetry 90 L 92 Oxygen Delivery Method BiPAP BiPAP Fraction of Inspired Oxygen 08/02/23 18:01 08/02/23 18:01 08/02/23 18:06 Temperature Pulse Rate 86 Respiratory Rate 26 H Blood Pressure 135/74 102/71 Pulse Oximetry 92 Oxygen Delivery Method BiPAP Fraction of Inspired Oxygen 08/02/23 18:06 08/02/23 18:10 08/02/23 18:10 Temperature Pulse Rate 84 84 Respiratory Rate 37 H 16 Blood Pressure 103/68 Pulse Oximetry 91 90 L Oxygen Delivery Method BiPAP BiPAP Fraction of Inspired Oxygen Fraction of Inspired Oxygen 100 Oxygen Delivery Method BiPAP Narrative Exam Narrative: She was obtunded, on BiPAP. She is morbidly obese. Pupils are symmetric. Conjugate gaze. Anicteric sclera. Atraumatic head. Neck is supple. Lungs with distant breath sounds and no focal findings. Heart is regular, and without murmur. Abdomen is distended and there is a ventral hernia below the umbilicus. There is no rigidity. Extremities are free of edema she is good pedal and radial pulses. Skin is otherwise free of rash or lesions. Arms and legs are flaccid, there is no spontaneous movement. Objective Imaging Chest x-ray: My impression: I believe she is pulmonary edema and a left pleural effusion. Peribronchial cuffing is noted. Radiologist's impression: Low lung volumes on single view portable radiograph, limiting evaluation. Similar left greater right basal opacities/atelectasis, and [id number] left effusion again seen. Consider future imaging surveillance to assess for resolution. Labs 08/02/23 16:45 08/02/23 16:45 Labs: Laboratory Results - last 24 hr 08/02/23 08/02/23 08/02/23 16:09 16:45 17:08 WBC 11.7 H RBC 3.41 L Hgb 11.4 L Hct 35.9 L MCV 105.3 H MCH 33.4 MCHC 31.8 RDW 17.4 H Plt Count 374 Neut % (Auto) 71.9 Lymph % (Auto) 15.9 L Terrell % (Auto) 10.6 Eos % (Auto) 0.6 L Baso % (Auto) 1.0 Neut # (Auto) 8400 H Lymph # (Auto) 1900 Terrell # (Auto) 1200 H Eos # (Auto) 100 Baso # (Auto) 100 PT 11.7 INR 1.0 APTT 30 ABG Sample Site Left brachial ABG pH 7.19 L* ABG pCO2 125.7 H* ABG pO2 47 L* ABG HCO3 48 H ABG Total CO2 > 50 H ABG O2 Saturation 67 L* ABG Base Excess 21.0 H FiO2 80 Sodium 141 Potassium 4.7 Chloride 92 L Carbon Dioxide 41 H* BUN 37 H Creatinine 1.53 H Estimated GFR 38 L BUN/Creatinine Ratio 24.2 H Glucose 205 H Lactate 1.0 Calcium 10.6 H Magnesium 3.1 H Total Bilirubin 0.8 AST 29 ALT 13 Alkaline Phosphatase 49 Total Creatine Kinase 42 Troponin I 0.079 H NT-Pro-B Natriuret Pep 16434 H Total Protein 8.5 H Albumin 4.3 Globulin 4.2 H Albumin/Globulin Ratio 1.0 Lipase 40 Urine RBC 5-10/hpf H Urine WBC 10-30/hpf H Ur Squamous Epith Cells 1-5 /hpf Urine Bacteria Few (2-10) H Ur Culture Indicated? Specimen cultured Vol Urine Centrifuged 10ml (spun) Assessment & Plan Assessment & Plan narrative: 1. Acute hypercarbic respiratory failure, present on admission and active. 2. Possible COPD with exacerbation, present on admission and active. 3. Possible bacterial pneumonia, present on admission and active. 4. Acute on chronic systolic heart failure with pulmonary edema, present on admission and active. 5. Morbid obesity with BMI of over 50, present on admission and active. 6. History of recurrent ESBL UTI. 7. History of chronic hypoxic respiratory failure, present on admission and active. 8. DM 2, present on admission and active. 9. Acute kidney injury on chronic kidney disease with baseline creatinine 1.3, present on admission and active. PLAN: -empiric antibiotics for pneumonia, and treat with Lasix IV q.12 hours to diurese. -we will also treat for COPD exacerbation with bronchodilators and corticosteroids. -we will obtain urine and blood cultures. -she will be monitored for an additional 2 hours passed her 2nd ABG in the emergency department in case she needs to be intubated. A 3rd ABG will be performed around 8:00 p.m. she can be transferred to the ICU if it is fairly sure that she is improving sufficiently on BiPAP not to require emergent intubation in the unit after hours. -she is full resuscitation as previously confirmed. She is admitted inpatient status with an expectation of over 2 midnights need for hospital services. Approximately 45 minutes of critical care time was spent tonight with her in imminent respiratory failure. Time Spent With Patient Time with patient: 30 to 49 minutes with 50% spent counseling/coordinating care Quality MIPS - Admit I confirm the patient?s Advance Care Plan is present, Code status is documented, Surrogate decision maker is in patient?s record [If Yes, STOP here]: Yes MIPS - Meds 'Current medications' to include all prescriptions, [id number] products, herbals, cannabis/cannabidiol products, and vitamin/mineral/dietary (nutritional) supplements. I have utilized all available resources to obtain, update, or review the patient?s current medications. [If Yes, STOP here]: Yes
[2023-08-02] MEDS: BUDESONIDE 0.5 MG/2 ML NEB INH (19:02)
[2023-08-02 19:22] LABS: Troponin I 0.086 ng/mL (0.01-0.034)
[2023-08-02 20:28] LABS: Allen Test for ABG Passed? Yes, Passed; Blood Gas Collection Site Right Radial; Fractionated Inspired Oxygen 38; HCO3 ABG 43 mmol/L (23-27); Oxygen Saturation ABG 89 % (95-100); PO2 ABG 73 mmHg (80-100); TCO2 ABG 46 mmol/L (23-27)
[2023-08-02 20:29] LABS: pH ABG 7.22 (7.35-7.45)
--- NOTE | 2023-08-02 21:15 | PC.NURSE ---
Patient arrived from ED on AVAPS, responds to voice but does not follow command, left upper arm noted with swelling from infiltrated IV site per ED RN.
[2023-08-02] MEDS: INSULIN LISPRO 100 UNIT/ML 3ML VIAL SUBCUT (22:31)
[2023-08-02] MEDS: HEPARIN 5,000 UNIT/ML VIAL 5000 UNIT SUBCUT (22:31)
[2023-08-02] MEDS: FAMOTIDINE 20 MG/2 ML VIAL IV (22:33)
--- NOTE | 2023-08-02 22:56 | PM.CN.EICU ---
History of Present Illness Consult details IF CAMERA ACTIVATED, patient seen via real-time interactive audiovisual communication: Camera activated Date Patient Seen: 08/02/23 Chief complaint: Unresponsive Reason for consult: Acute on chronic Hpercapneic respiratory failure Consent obtained for tele-emergency medical services coordinator care: Yes Patient Location: ICU Provider location (State): [place] Other participants/roles: Bedside RN Narrative: The patient was seen via real-time interactive audiovisual communication.? Camera activated. This is a 62 years old female, a resident of long-term care [facility] with multiple comorbidities including PONCE on CPAP at home, COPD, chronic hypoxic respite failure (LVEF 25% on last echo in January 2023), DM type 2, hypertension, chronic systolic and diastolic CHF, history of multiple irregular/hospitalizations for acute respite failure was brought to the ER after she was found to be minimally responsive at the nursing facility. Her blood pressure was noted to be borderline at 89/53 mmHg. Initial workup in the ED was notable for WBC of 0.7, hemoglobin 11.4, sodium 141, potassium 4.7, chloride 92, CO2 41, BUN 37, creatinine 1.53 glucose 205, troponin elevated at 0.086, N-BNP 22,600. UA abnormal and notable for 10-30 WBCs, few bacteria. Most recent ABG in the ER showed pH 7.22, pCO2 105, pO2 73, bicarb 43. Initial chest x-ray in the ED showed low lung volumes, greater than right basilar opacity/atelectasis, and mild to moderate left pleural effusion. In the ER, she received DuoNebs, empiric antibiotics ceftriaxone and azithromycin, Solu-Medrol 125 mg 1, and naloxone 0.2 mg IV,, Lasix 40 g IV twice daily. She was switched to BiPAP and admitted to ICU. Current BiPAP settings (AVAPs) reviewed. [place] 450, EPAP 6, rate 16, minimum pressure 15, maximum pressure 28, FiO2 42%. [facility] Medical History PONCE (obstructive sleep apnea) Chronic hypoxemic respiratory failure COPD (chronic obstructive pulmonary disease) DM2 (diabetes mellitus, type 2) HTN (hypertension) Thyroiditis Systolic and diastolic CHF, chronic Obesity Surgical History S/P hernia surgery Family History Mother No pertinent past medical history Father No pertinent past medical history Social History household members: other Smoking Status: Former smoker alcohol intake: former Current Medications Current Medications Medications: Home Medications acetaminophen 325 mg tablet (Tylenol) 650 mg PO TID 05/25/22 [History Confirmed 06/27/23] aspirin 81 mg tablet,delayed release 81 mg PO DAILY 05/25/22 [History Confirmed 06/27/23] budesonide-formoterol HFA 160 mcg-4.5 mcg/actuation aerosol inhaler 2 puff inhalation Q4H PRN Wheezing 05/25/22 [History Confirmed 06/27/23] bupropion HCl 150 mg tablet,12 hr sustained-release 150 mg PO BEDTIME 05/25/22 [History Confirmed 06/27/23] carvedilol 3.125 mg tablet 3.125 mg PO BID 05/25/22 [History Confirmed 06/27/23] cyanocobalamin (vitamin B-12) 500 mcg tablet 500 mcg PO DAILY 05/25/22 [History Confirmed 06/27/23] fenofibrate 160 mg tablet 160 mg PO DAILY 05/25/22 [History Confirmed 06/27/23] fluoxetine 20 mg tablet 20 mg PO DAILY 05/25/22 [History Confirmed 06/27/23] fluticasone propionate 50 mcg/actuation nasal spray,suspension 2 spray intranasal DAILY 05/25/22 [History Confirmed 06/27/23] gabapentin 300 mg capsule 300 mg PO BEDTIME 05/25/22 [History Confirmed 06/27/23] insulin glargine 100 unit/mL (3 mL) subcutaneous pen 22 unit SUBCUT BID 05/25/22 [History Confirmed 06/27/23] insulin lispro 100 unit/mL subcutaneous solution (Humalog U-100 Insulin) See Protocol SUBCUT TIDWM 05/25/22 [History Confirmed 06/27/23] loratadine 10 mg tablet 10 mg PO DAILY 05/25/22 [History Confirmed 06/27/23] magnesium oxide 200 mg PO DAILY 05/25/22 [History Confirmed 06/27/23] meclizine 25 mg tablet 25 mg PO Q8HR PRN Dizziness 05/25/22 [History Confirmed 06/27/23] montelukast 10 mg tablet 10 mg PO DAILY 05/25/22 [History Confirmed 06/27/23] nystatin 100,000 unit/gram topical powder 1 applic topical BID PRN Rash 05/25/22 [History Confirmed 06/27/23] ondansetron 4 mg disintegrating tablet 4 mg PO Q8H PRN Nausea 05/25/22 [History Confirmed 06/27/23] rosuvastatin 40 mg tablet 40 mg PO DAILY 05/25/22 [History Confirmed 06/27/23] sennosides 8.6 mg tablet (senna) 17.2 mg PO BEDTIME 05/25/22 [History Confirmed 06/27/23] tiotropium bromide 18 mcg capsule with inhalation device (Spiriva with HandiHaler) 1 cap inhalation DAILY 05/25/22 [History Confirmed 06/27/23] trazodone 50 mg tablet 25 mg PO BEDTIME 05/25/22 [History Confirmed 06/27/23] albuterol sulfate 90 mcg/actuation aerosol inhaler 4 puff inhalation Q4H PRN Shortness Of Breath Or Wheezing 08/15/22 [History Confirmed 06/27/23] levothyroxine 175 mcg tablet 175 mcg PO DAILY 08/15/22 [History Confirmed 06/27/23] potassium chloride 10 mEq tablet,extended release 20 meq PO DAILY 08/15/22 [History Confirmed 06/27/23] midodrine 5 mg tablet 10 mg PO BID 05/20/23 [History Confirmed 06/27/23] torsemide 20 mg DAILY 05/20/23 [History Confirmed 06/27/23] torsemide 10 mg tablet 10 mg PO BEDTIME 05/20/23 [History Confirmed 06/27/23] Visit Medications (administered) Generic Name Dose Route Start Last Admin Trade Name Freq PRN Reason Stop Dose Admin Albuterol/Ipratropium 3 ml 08/02/23 19:00 08/02/23 19:02 Albuterol/Ipratropium 3 Ml Ampul INH 3 ml [id number] JAY JAY Administration Budesonide 0.5 mg 08/02/23 20:00 08/02/23 19:02 Budesonide 0.5 Mg/2 Ml Neb INH 0.5 mg RTBID JAY JAY Administration Famotidine 20 mg 08/02/23 21:00 08/02/23 22:33 Famotidine 20 Mg/2 Ml Vial IV 20 mg BID JAY JAY Administration Heparin Sodium (Porcine) 5,000 unit 08/02/23 21:00 08/02/23 22:31 Heparin 5,000 Unit/Ml Vial SUBCUT 5,000 unit BID JAY JAY Administration Insulin Human Lispro 0 unit 08/02/23 21:00 08/02/23 22:31 Insulin Lispro 100 Unit/Ml 3ml Vial SUBCUT 2 unit ACHS JAY JAY Administration Protocol Review of Systems Review of Systems Narrative: Unable to obtain due to patient's clinical condition. Exam Vital Signs (past 8 hours): - 08/02/23 16:53 08/02/23 16:55 08/02/23 16:56 Temperature 97.8 F Pulse Rate 97 H 97 H Respiratory Rate 10 L 32 H Blood Pressure 126/58 L 126/58 L Blood Pressure [Right Arm] Pulse Oximetry 80 L 83 L Oxygen Delivery Method CPAP CPAP Oxygen Flow Rate Fraction of Inspired Oxygen 08/02/23 16:56 08/02/23 16:57 08/02/23 16:57 Temperature Pulse Rate 97 H 96 H Respiratory Rate 25 H 25 H Blood Pressure 123/64 Blood Pressure [Right Arm] Pulse Oximetry 75 L 95 Oxygen Delivery Method CPAP Oxygen Flow Rate Fraction of Inspired Oxygen 08/02/23 17:00 08/02/23 17:02 08/02/23 17:02 Temperature Pulse Rate 96 H 95 H Respiratory Rate 29 H 27 H Blood Pressure 110/91 H Blood Pressure [Right Arm] Pulse Oximetry 96 97 Oxygen Delivery Method Oxygen Flow Rate Fraction of Inspired Oxygen 08/02/23 17:10 08/02/23 17:10 08/02/23 17:10 Temperature Pulse Rate 91 H Respiratory Rate 27 H Blood Pressure 108/56 L 116/56 L Blood Pressure [Right Arm] Pulse Oximetry 96 Oxygen Delivery Method Oxygen Flow Rate Fraction of Inspired Oxygen 100 08/02/23 17:12 08/02/23 17:12 08/02/23 17:16 Temperature Pulse Rate 91 H 90 Respiratory Rate 29 H 25 H Blood Pressure 108/56 L Blood Pressure [Right Arm] Pulse Oximetry 97 97 Oxygen Delivery Method Oxygen Flow Rate Fraction of Inspired Oxygen 08/02/23 17:16 08/02/23 17:20 05/15/24 17:20 Temperature Pulse Rate 92 H Respiratory Rate 19 Blood Pressure 99/57 L 99/63 Blood Pressure [Right Arm] Pulse Oximetry 96 Oxygen Delivery Method Oxygen Flow Rate Fraction of Inspired Oxygen 08/02/23 17:25 08/02/23 17:25 08/02/23 17:30 Temperature Pulse Rate 90 Respiratory Rate 21 Blood Pressure 96/55 L 87/54 L Blood Pressure [Right Arm] Pulse Oximetry 97 Oxygen Delivery Method Oxygen Flow Rate Fraction of Inspired Oxygen 08/02/23 17:30 08/02/23 17:35 08/02/23 17:35 Temperature Pulse Rate 87 87 Respiratory Rate 17 16 Blood Pressure 93/51 L Blood Pressure [Right Arm] Pulse Oximetry 96 96 Oxygen Delivery Method Oxygen Flow Rate Fraction of Inspired Oxygen 08/02/23 17:40 08/02/23 17:40 08/02/23 17:46 Temperature Pulse Rate 87 Respiratory Rate 19 Blood Pressure 85/51 L 82/51 L Blood Pressure [Right Arm] Pulse Oximetry Oxygen Delivery Method Oxygen Flow Rate Fraction of Inspired Oxygen 08/02/23 17:46 08/02/23 17:50 08/02/23 17:50 Temperature Pulse Rate 86 86 Respiratory Rate 20 23 Blood Pressure 88/53 L Blood Pressure [Right Arm] Pulse Oximetry 91 90 L Oxygen Delivery Method BiPAP BiPAP Oxygen Flow Rate Fraction of Inspired Oxygen 08/02/23 17:55 08/02/23 17:55 08/02/23 18:00 Temperature Pulse Rate 86 86 Respiratory Rate 23 23 Blood Pressure 88/51 L Blood Pressure [Right Arm] Pulse Oximetry 90 L 92 Oxygen Delivery Method BiPAP BiPAP Oxygen Flow Rate Fraction of Inspired Oxygen 08/02/23 18:01 08/02/23 18:01 08/02/23 18:06 Temperature Pulse Rate 86 Respiratory Rate 26 H Blood Pressure 135/74 102/71 Blood Pressure [Right Arm] Pulse Oximetry 92 Oxygen Delivery Method BiPAP Oxygen Flow Rate Fraction of Inspired Oxygen 08/02/23 18:06 08/02/23 18:10 08/02/23 18:10 Temperature Pulse Rate 84 84 Respiratory Rate 37 H 16 Blood Pressure 103/68 Blood Pressure [Right Arm] Pulse Oximetry 91 90 L Oxygen Delivery Method BiPAP BiPAP Oxygen Flow Rate Fraction of Inspired Oxygen 08/02/23 18:15 08/02/23 18:15 08/02/23 18:20 Temperature Pulse Rate 83 84 Respiratory Rate 18 21 Blood Pressure 102/66 Blood Pressure [Right Arm] Pulse Oximetry 87 L 89 L Oxygen Delivery Method BiPAP BiPAP Oxygen Flow Rate Fraction of Inspired Oxygen 08/02/23 18:20 08/02/23 18:25 08/02/23 18:25 Temperature Pulse Rate 84 Respiratory Rate 28 H Blood Pressure 101/66 104/63 Blood Pressure [Right Arm] Pulse Oximetry 85 L Oxygen Delivery Method BiPAP Oxygen Flow Rate Fraction of Inspired Oxygen 08/02/23 18:30 08/02/23 18:30 08/02/23 18:35 Temperature Pulse Rate 82 Respiratory Rate 14 Blood Pressure 95/57 L 87/53 L Blood Pressure [Right Arm] Pulse Oximetry 92 Oxygen Delivery Method BiPAP Oxygen Flow Rate 35 Fraction of Inspired Oxygen 08/02/23 18:35 08/02/23 18:36 08/02/23 18:36 Temperature Pulse Rate 82 82 Respiratory Rate 19 22 Blood Pressure 86/57 L Blood Pressure [Right Arm] Pulse Oximetry 89 L 88 L Oxygen Delivery Method BiPAP BiPAP Oxygen Flow Rate 33 33 Fraction of Inspired Oxygen 08/02/23 18:40 08/02/23 18:40 08/02/23 18:45 Temperature Pulse Rate 84 Respiratory Rate 26 H Blood Pressure 98/66 103/71 Blood Pressure [Right Arm] Pulse Oximetry 89 L Oxygen Delivery Method BiPAP Oxygen Flow Rate 33 Fraction of Inspired Oxygen 08/02/23 18:45 08/02/23 18:50 08/02/23 18:50 Temperature Pulse Rate 84 84 Respiratory Rate 17 26 H Blood Pressure 104/67 Blood Pressure [Right Arm] Pulse Oximetry 88 L 91 Oxygen Delivery Method BiPAP BiPAP Oxygen Flow Rate 33 Fraction of Inspired Oxygen 08/02/23 18:55 08/02/23 18:55 08/02/23 19:00 Temperature Pulse Rate 84 Respiratory Rate 24 Blood Pressure 101/64 100/60 Blood Pressure [Right Arm] Pulse Oximetry 88 L Oxygen Delivery Method BiPAP Oxygen Flow Rate Fraction of Inspired Oxygen 08/02/23 19:00 08/02/23 19:05 08/02/23 19:05 Temperature Pulse Rate 83 83 Respiratory Rate 25 H 26 H Blood Pressure 104/77 Blood Pressure [Right Arm] Pulse Oximetry 90 L 91 Oxygen Delivery Method BiPAP Oxygen Flow Rate Fraction of Inspired Oxygen 08/02/23 19:10 08/02/23 19:10 08/02/23 19:15 Temperature Pulse Rate 83 Respiratory Rate 27 H Blood Pressure 106/68 105/56 L Blood Pressure [Right Arm] Pulse Oximetry 92 Oxygen Delivery Method BiPAP Oxygen Flow Rate Fraction of Inspired Oxygen 08/02/23 19:15 08/02/23 19:24 08/02/23 19:24 Temperature Pulse Rate 83 84 Respiratory Rate 24 19 Blood Pressure 97/51 L Blood Pressure [Right Arm] Pulse Oximetry 93 91 Oxygen Delivery Method BiPAP BiPAP Oxygen Flow Rate Fraction of Inspired Oxygen 08/02/23 19:26 08/02/23 19:26 08/02/23 20:05 Temperature Pulse Rate 84 88 Respiratory Rate 20 19 Blood Pressure 122/58 L 111/56 L Blood Pressure [Right Arm] Pulse Oximetry 91 88 L Oxygen Delivery Method BiPAP Oxygen Flow Rate Fraction of Inspired Oxygen 08/02/23 20:12 08/02/23 20:16 08/02/23 20:22 Temperature Pulse Rate 82 83 Respiratory Rate 18 21 Blood Pressure 102/59 L 97/60 Blood Pressure [Right Arm] 97/60 Pulse Oximetry 88 L 89 L Oxygen Delivery Method BiPAP BiPAP Oxygen Flow Rate Fraction of Inspired Oxygen 42 08/02/23 20:30 08/02/23 20:40 08/02/23 21:00 Temperature Pulse Rate 84 84 83 Respiratory Rate 17 17 23 Blood Pressure 101/58 L 100/55 L 103/55 L Blood Pressure [Right Arm] Pulse Oximetry 90 L 90 L 94 Oxygen Delivery Method BiPAP BiPAP BiPAP Oxygen Flow Rate Fraction of Inspired Oxygen 08/02/23 21:52 08/02/23 21:56 Temperature 98.1 F Pulse Rate Respiratory Rate 21 Blood Pressure 89/53 L Blood Pressure [Right Arm] Pulse Oximetry 98 Oxygen Delivery Method Oxygen Flow Rate Fraction of Inspired Oxygen Fraction of Inspired Oxygen 42 Oxygen Delivery Method BiPAP Oxygen Flow Rate 33 Narrative Exam Narrative: Morbidely obese lady, laying comfortably in bed. Somnolent but easily arousable, On BiPAP. Doesn't follow commands. Moving all extremities spontaneously. Objective Labs 08/02/23 16:45 08/02/23 16:45 Labs: Laboratory Results - last 24 hr 08/02/23 08/02/23 08/02/23 16:09 16:45 17:08 WBC 11.7 H RBC 3.41 L Hgb 11.4 L Hct 35.9 L MCV 105.3 H MCH 33.4 MCHC 31.8 RDW 17.4 H Plt Count 374 Neut % (Auto) 71.9 Lymph % (Auto) 15.9 L [place] % (Auto) 10.6 Eos % (Auto) 0.6 L Baso % (Auto) 1.0 Neut # (Auto) 8400 H Lymph # (Auto) 1900 [place] # (Auto) 1200 H Eos # (Auto) 100 Baso # (Auto) 100 PT 11.7 INR 1.0 APTT 30 ABG Sample Site Left brachial ABG pH 7.19 L* ABG pCO2 125.7 H* ABG pO2 47 L* ABG HCO3 48 H ABG Total CO2 > 50 H ABG O2 Saturation 67 L* ABG Base Excess 21.0 H FiO2 80 Sodium 141 Potassium 4.7 Chloride 92 L Carbon Dioxide 41 H* BUN 37 H Creatinine 1.53 H Estimated GFR 38 L BUN/Creatinine Ratio 24.2 H Glucose 205 H Lactate 1.0 Calcium 10.6 H Magnesium 3.1 H Total Bilirubin 0.8 AST 29 ALT 13 Alkaline Phosphatase 49 Total Creatine Kinase 42 Troponin I 0.079 H NT-Pro-B Natriuret Pep 92909 H Total Protein 8.5 H Albumin 4.3 Globulin 4.2 H Albumin/Globulin Ratio 1.0 Lipase 40 Urine RBC 5-10/hpf H Urine WBC 10-30/hpf H Ur Squamous Epith Cells 1-5 /hpf Urine Bacteria Few (2-10) H Ur Culture Indicated? Specimen cultured Vol Urine Centrifuged 10ml (spun) 08/02/23 08/02/23 08/02/23 18:01 18:52 20:02 WBC RBC Hgb Hct MCV MCH MCHC RDW Plt Count Neut % (Auto) Lymph % (Auto) [place] % (Auto) Eos % (Auto) Baso % (Auto) Neut # (Auto) Lymph # (Auto) [place] # (Auto) Eos # (Auto) Baso # (Auto) PT INR APTT ABG Sample Site Right radial Right radial ABG pH 7.25 L* 7.22 L* ABG pCO2 106.9 H* 105.0 H* ABG pO2 74 L 73 L ABG HCO3 47 H 43 H ABG Total CO2 > 50 H 46 H ABG O2 Saturation 90 L 89 L ABG Base Excess 20.0 H 15.0 H FiO2 30 38 Sodium Potassium Chloride Carbon Dioxide BUN Creatinine Estimated GFR BUN/Creatinine Ratio Glucose Lactate Calcium Magnesium Total Bilirubin AST ALT Alkaline Phosphatase Total Creatine Kinase Troponin I 0.086 H NT-Pro-B Natriuret Pep Total Protein Albumin Globulin Albumin/Globulin Ratio Lipase Urine RBC Urine WBC Ur Squamous Epith Cells Urine Bacteria Ur Culture Indicated? Vol Urine Centrifuged Assessment & Plan Assessment & Plan narrative: # Acute on chronic, hypercapnic respiratory failure: - Multifactorial. Likely combination of CHF/COPD exacerbation in the setting of severe PONCE/OHS. - Initial pCO2 115 on arrival, now down to 105 with slight improvement in mentation. - BiPAP settings reviewed. Currently on AVAPS mode. Continue current settings, follow-up ABG in 2 to 3 hours to ensure continued improvement in ABG. - Chest x-ray reviewed. Low lung volumes, right basilar opacity/atelectasis, mild-moderate left pleural effusion and some findings suggestive of pulm edema. - Clinically, pneumonia less likely but cannot be ruled out at this point. Agree with empiric antibiotics ceftriaxone and azithromycin pending cultures. - Ordered blood cultures x 2, sputum cultures, procalcitonin. De-escalate antibiotics in 24 to 48 hours depending on clinical progress and culture data. - Panculture more febrile CHF exacerbation/pulm edema. Agree with diuresis. Recommend to add Diamox complex medical process caused by Lasix. - Received Solu-Medrol 125 mg IV x 1 in the ED. Continue steroids, DuoNebs, Pulmicort nebs to cover for COPD exacerbation. - Patient is at high risk for needing endotracheal intubation and will need to be closely monitored in the ICU. # COPD with acute exacerbation: - Continue with steroids, DuoNebs, and Pulmicort nebs. Empiric antibiotics as noted above. # Acute on chronic, combined systolic and diastolic CHF - Most recent 2D echocardiogram in July 2022 with LVEF 25%. - Clinical picture suggestive of pulm edema/CHF exacerbation. proBNP elevated at 22,500. Chest x-ray with mild pulm edema. - Continue with diuresis with Lasix 40 IV twice daily. Add Diamox to 50 mg IV every 6 hours to complete alkalosis possible history. - Strict input and output, Babcock's catheter, goal to keep net negative fluid balance of at least 1 L. - Ordered 2D echocardiogram. # Morbid obesity with PONCE/OHS - Continue with BiPAP. # BLANCA on CKD with baseline creatinine 1.3: - Serum creatinine slightly elevated 1.5 on admission. - Monitor renal functions with serial BMP, strict input and output. - Avoid nephrotoxic agents, renally dose medications. ICU bundle: # FEN: Currently NPO. # Glucose: fairly controlled. C/w Accu checks Q6 hours and SSI. BG goal 140-180 # Prophylaxis: Heparin 5000 units subcu Q8 hourly for DVT prophylaxis, Pepcid for stress ulcer prophylaxis # Lines/tubes: PIV, Babcock # CODE STATUS: Full code # Disposition: Remains in ICU Above plan was discussed with bedside RN, respiratory therapist. We will continue to follow. Please call us if any additional questions.
[2023-08-02 23:04] LABS: MRSA (Nasal) PCR DETECTED (Not Detect)
[2023-08-03] VITALS (33 sets, daily range): BP systolic 84–107; BP diastolic 50–60; PULSE 69–80; RESP 20–33; TEMP 31–37.2; O2SAT 87–93
[2023-08-03] MEDS: methylPREDNISolone 125 MG/2 ML VIAL 60 MG IV ×4 (00:46→17:21)
[2023-08-03] MEDS: ALBUTEROL/IPRATROPIUM 3 ML AMPUL INH ×5 (00:46→18:58)
[2023-08-03 02:13] LABS: PCO2 ABG 95.9 mmHg (35-45); PO2 ABG 91 mmHg (80-100); pH ABG 7.25 (7.35-7.45)
[2023-08-03 02:14] LABS: Fractionated Inspired Oxygen 42; HCO3 ABG 43 mmol/L (23-27); Oxygen Saturation ABG 95 % (95-100); TCO2 ABG 45 mmol/L (23-27)
[2023-08-03 02:15] LABS: Blood Gas Collection Site Left Radial
[2023-08-03 03:04] LABS: Add Manual Diff / Slide Review NO; Basophils Absolute Auto 0 /uL (0-100); Basophils Percent Auto 0.5 % (0-2); Eosinophils Absolute Auto 200 /uL (0-450); Eosinophils Percent Auto 1.7 % (2-4); Hematocrit 32.9 % (36-46); Hemoglobin 10.7 g/dL (12.0-16.0); Lymphocytes Absolute Auto 1100 /uL (1100-4500); Lymphocytes Percent Auto 11.6 % (25-40); Mean Corpuscular HGB Conc 32.6 % (30-36); Mean Corpuscular Volume 104.4 fL (80-100); Monocytes Absolute Auto 100 /uL (0-900); Monocytes Percent Auto 1.4 % (3-14); Neutrophils Absolute Auto 8100 /uL (1500-7000); Neutrophils Percent Auto 84.8 % (50-75); Platelet Count 285 X10^3/uL (150-400); Red Blood Cell Count 3.15 X10^6/uL (4.0-5.2); Red Cell Distribution Width 17.3 % (11.6-14.8); White Blood Cell Count 9.5 X10^3/uL (4.5-11.0)
[2023-08-03 03:21] LABS: BUN Creatinine Ratio 29.4 (6-22); Blood Urea Nitrogen 42 mg/dL (7-17); Carbon Dioxide 36 mmol/L (22-32); Chloride 96 mmol/L (98-107); Estimated Glomerular Filt Rate 42 mL/min (>60); Glucose 292 mg/dL (80-110); HEMOLYSIS 18 (0-50); Potassium 4.7 mmol/L (3.4-5.1); Sodium 140 mmol/L (137-145)
[2023-08-03] MEDS: BUDESONIDE 0.5 MG/2 ML NEB INH ×2 (05:49→18:58)
[2023-08-03] MEDS: FUROSEMIDE 40 MG/4 ML VIAL IV ×2 (06:05→19:45)
[2023-08-03 06:33] LABS: PCO2 ABG 80.3 mmHg (35-45); pH ABG 7.33 (7.35-7.45)
[2023-08-03 06:34] LABS: Allen Test for ABG Passed? Yes, Passed; Blood Gas Collection Site Left Radial; Fractionated Inspired Oxygen 42; HCO3 ABG 42 mmol/L (23-27); Oxygen Saturation ABG 92 % (95-100); PO2 ABG 74 mmHg (80-100); TCO2 ABG 45 mmol/L (23-27)
--- NOTE | 2023-08-03 07:26 | P.PN_ITS ---
Subjective Subjective Interval history: S: She was able to answer her name and date of . Not really talking much otherwise. She is improved overnight. She was admitted with respiratory insufficiency and on BiPAP overnight. She was initially extremely acidotic and this is improved substantially. She was becoming more mentally alert. Exam Vital Signs (past 8 hours): - 08/03/23 00:00 08/03/23 02:58 08/03/23 02:59 Pulse Rate 77 76 Respiratory Rate 20 20 Blood Pressure 97/57 L 91/55 L Pulse Oximetry 93 93 Oxygen Delivery Method Oxygen Flow Rate Fraction of Inspired Oxygen 08/03/23 03:00 08/03/23 03:00 08/03/23 03:07 Pulse Rate 76 76 Respiratory Rate 20 20 Blood Pressure 88/50 L Pulse Oximetry 93 93 Oxygen Delivery Method Oxygen Flow Rate Fraction of Inspired Oxygen 08/03/23 03:07 08/03/23 03:20 08/03/23 03:30 Pulse Rate 76 Respiratory Rate 20 Blood Pressure 89/50 L 89/50 L Pulse Oximetry 92 Oxygen Delivery Method Oxygen Flow Rate Fraction of Inspired Oxygen 42 08/03/23 03:30 08/03/23 04:00 08/03/23 04:00 Pulse Rate 76 Respiratory Rate 23 Blood Pressure 100/55 L 103/56 L Pulse Oximetry 93 Oxygen Delivery Method Oxygen Flow Rate Fraction of Inspired Oxygen 08/03/23 04:30 08/03/23 04:30 08/03/23 05:00 Pulse Rate 75 74 Respiratory Rate 20 20 Blood Pressure 91/54 L Pulse Oximetry 93 91 Oxygen Delivery Method Oxygen Flow Rate Fraction of Inspired Oxygen 08/03/23 05:00 08/03/23 06:00 08/03/23 06:00 Pulse Rate 75 Respiratory Rate 24 Blood Pressure 88/60 L 97/56 L Pulse Oximetry 91 Oxygen Delivery Method Oxygen Flow Rate Fraction of Inspired Oxygen 08/03/23 06:26 08/03/23 06:29 Pulse Rate Respiratory Rate Blood Pressure 89/50 L Pulse Oximetry 93 Oxygen Delivery Method BiPAP Oxygen Flow Rate 42 Fraction of Inspired Oxygen 42 Fraction of Inspired Oxygen 42 Oxygen Delivery Method BiPAP Oxygen Flow Rate 42 Narrative Exam Narrative: NAD, arousable. Comfortable on BiPAP. Morbidly obese. Lungs are clear, normal rate and effort. Heart is regular, no murmur gallop or rub. Abdomen is soft, non distended. Extremities are free of edema. Moves arms and legs spontaneously. Objective Imaging Chest x-ray: Radiologist's impression: Low lung volumes on single view portable radiograph, limiting evaluation. Similar left greater right basal opacities/atelectasis, and [id number] left effusion again seen. Consider future imaging surveillance to assess for resolution. Labs 08/03/23 02:45 08/03/23 02:45 Labs: Laboratory Results - last 24 hr 08/02/23 08/02/23 08/02/23 16:09 16:45 17:08 WBC 11.7 H RBC 3.41 L Hgb 11.4 L Hct 35.9 L MCV 105.3 H MCH 33.4 MCHC 31.8 RDW 17.4 H Plt Count 374 Neut % (Auto) 71.9 Lymph % (Auto) 15.9 L [place] % (Auto) 10.6 Eos % (Auto) 0.6 L Baso % (Auto) 1.0 Neut # (Auto) 8400 H Lymph # (Auto) 1900 [place] # (Auto) 1200 H Eos # (Auto) 100 Baso # (Auto) 100 PT 11.7 INR 1.0 APTT 30 ABG Sample Site Left brachial ABG pH 7.19 L* ABG pCO2 125.7 H* ABG pO2 47 L* ABG HCO3 48 H ABG Total CO2 > 50 H ABG O2 Saturation 67 L* ABG Base Excess 21.0 H FiO2 80 Sodium 141 Potassium 4.7 Chloride 92 L Carbon Dioxide 41 H* BUN 37 H Creatinine 1.53 H Estimated GFR 38 L BUN/Creatinine Ratio 24.2 H Glucose 205 H Lactate 1.0 Calcium 10.6 H Magnesium 3.1 H Total Bilirubin 0.8 AST 29 ALT 13 Alkaline Phosphatase 49 Total Creatine Kinase 42 Troponin I 0.079 H NT-Pro-B Natriuret Pep 27889 H Total Protein 8.5 H Albumin 4.3 Globulin 4.2 H Albumin/Globulin Ratio 1.0 Lipase 40 Urine RBC 5-10/hpf H Urine WBC 10-30/hpf H Ur Squamous Epith Cells 1-5 /hpf Urine Bacteria Few (2-10) H Ur Culture Indicated? Specimen cultured Vol Urine Centrifuged 10ml (spun) Nasal Screen MRSA (PCR) 08/02/23 08/02/23 08/02/23 18:01 18:52 20:02 WBC RBC Hgb Hct MCV MCH MCHC RDW Plt Count Neut % (Auto) Lymph % (Auto) [place] % (Auto) Eos % (Auto) Baso % (Auto) Neut # (Auto) Lymph # (Auto) [place] # (Auto) Eos # (Auto) Baso # (Auto) PT INR APTT ABG Sample Site Right radial Right radial ABG pH 7.25 L* 7.22 L* ABG pCO2 106.9 H* 105.0 H* ABG pO2 74 L 73 L ABG HCO3 47 H 43 H ABG Total CO2 > 50 H 46 H ABG O2 Saturation 90 L 89 L ABG Base Excess 20.0 H 15.0 H FiO2 30 38 Sodium Potassium Chloride Carbon Dioxide BUN Creatinine Estimated GFR BUN/Creatinine Ratio Glucose Lactate Calcium Magnesium Total Bilirubin AST ALT Alkaline Phosphatase Total Creatine Kinase Troponin I 0.086 H NT-Pro-B Natriuret Pep Total Protein Albumin Globulin Albumin/Globulin Ratio Lipase Urine RBC Urine WBC Ur Squamous Epith Cells Urine Bacteria Ur Culture Indicated? Vol Urine Centrifuged Nasal Screen MRSA (PCR) 08/02/23 08/02/23 08/03/23 22:05 23:58 02:45 WBC 9.5 RBC 3.15 L Hgb 10.7 L Hct 32.9 L MCV 104.4 H MCH 34.0 MCHC 32.6 RDW 17.3 H Plt Count 285 Neut % (Auto) 84.8 H Lymph % (Auto) 11.6 L [place] % (Auto) 1.4 L Eos % (Auto) 1.7 L Baso % (Auto) 0.5 Neut # (Auto) 8100 H Lymph # (Auto) 1100 [place] # (Auto) 100 Eos # (Auto) 200 Baso # (Auto) 0 PT INR APTT ABG Sample Site Left radial ABG pH 7.25 L* ABG pCO2 95.9 H* ABG pO2 91 ABG HCO3 43 H ABG Total CO2 45 H ABG O2 Saturation 95 ABG Base Excess 15.0 H FiO2 42 Sodium 140 Potassium 4.7 Chloride 96 L Carbon Dioxide 36 H BUN 42 H Creatinine 1.43 H Estimated GFR 42 L BUN/Creatinine Ratio 29.4 H Glucose 292 H Lactate Calcium 10.0 Magnesium Total Bilirubin AST ALT Alkaline Phosphatase Total Creatine Kinase Troponin I NT-Pro-B Natriuret Pep Total Protein Albumin Globulin Albumin/Globulin Ratio Lipase Urine RBC Urine WBC Ur Squamous Epith Cells Urine Bacteria Ur Culture Indicated? Vol Urine Centrifuged Nasal Screen MRSA (PCR) Detected H 08/03/23 05:59 WBC RBC Hgb Hct MCV MCH MCHC RDW Plt Count Neut % (Auto) Lymph % (Auto) [place] % (Auto) Eos % (Auto) Baso % (Auto) Neut # (Auto) Lymph # (Auto) [place] # (Auto) Eos # (Auto) Baso # (Auto) PT INR APTT ABG Sample Site Left radial ABG pH 7.33 L ABG pCO2 80.3 H* ABG pO2 74 L ABG HCO3 42 H ABG Total CO2 45 H ABG O2 Saturation 92 L ABG Base Excess 16.0 H FiO2 42 Sodium Potassium Chloride Carbon Dioxide BUN Creatinine Estimated GFR BUN/Creatinine Ratio Glucose Lactate Calcium Magnesium Total Bilirubin AST ALT Alkaline Phosphatase Total Creatine Kinase Troponin I NT-Pro-B Natriuret Pep Total Protein Albumin Globulin Albumin/Globulin Ratio Lipase Urine RBC Urine WBC Ur Squamous Epith Cells Urine Bacteria Ur Culture Indicated? Vol Urine Centrifuged Nasal Screen MRSA (PCR) [facility] Medical History PONCE (obstructive sleep apnea) Chronic hypoxemic respiratory failure COPD (chronic obstructive pulmonary disease) DM2 (diabetes mellitus, type 2) HTN (hypertension) Thyroiditis Systolic and diastolic CHF, chronic Obesity Surgical History S/P hernia surgery Family History Mother No pertinent past medical history Father No pertinent past medical history Social History household members: other Smoking Status: Former smoker alcohol intake: former Assessment & Plan Assessment & Plan narrative: 1. Acute hypercarbic and hypoxemic respiratory failure, present on admission and active. 2. Possible COPD exacerbation, present on admission and active. 3. Possible bacterial pneumonia, present on admission and active. 4. Acute on chronic systolic heart failure with pulmonary edema, present on admission and active. 5. Morbid obesity with BMI of over 50, present on admission and active. 6. History of recurrent ESBL UTI. 7. History of chronic hypoxic respiratory failure, present on admission and active. 8. DM 2, present on admission and active. 9. Acute kidney injury on chronic kidney disease with baseline creatinine 1.3, present on admission and active. PLAN: -Continue empiric antibiotics for pneumonia. -we will also treat for COPD exacerbation with bronchodilators and corticosteroids, continue. -we will obtain urine and blood cultures. Pending. -Wean BiPAP as able. Wean O2 as able. -she is full resuscitation as previously confirmed. We will ventilate her until around lunchtime, then take off BiPAP and see how she does clinically. She is admitted inpatient status with an expectation of over 2 midnights need for hospital services. I personally provided 35 minutes of total critical care time on direct and indirect patient care activities on the date of this encounter, exclusive of time spent on other separately reportable services/procedures.
[2023-08-03] MEDS: HEPARIN 5,000 UNIT/ML VIAL 5000 UNIT SUBCUT ×2 (08:20→20:27)
[2023-08-03] MEDS: INSULIN LISPRO 100 UNIT/ML 3ML VIAL SUBCUT ×4 (08:20→20:41)
[2023-08-03] MEDS: INSULIN GLARGINE 100 UNIT/ML 3ML PEN 22 UNIT SUBCUT (10:41)
--- NOTE | 2023-08-03 13:15 | CM.DANOTE ---
Initial DCP Assessment Note Pt is a 62 yo female, resident at [facility], formerly living at [facility]. Frequents IH for concerns with SOB, resp failure, AMS PCP: [facility] provider Payer: Sunil/[employer] Reviewed chart, patient not able to participate in bedside assessment. In the past, Patient has been A+Ox3 at baseline, requires 1-2 person assist,total care. Anticipate return to [facility]. Patient remains full code. CM team will plan to follow clinical course closely for coordination of discharge plan, anticipate back to [facility]. GA Vasquez Discharge Planning/Care Management CM Discharge Assessment Start: 08/03/23 13:10 Freq: Status: Active Protocol: Document 08/03/23 13:11 NEO (Rec: 08/03/23 13:14 NEO [id number]) Discharge Planning Assessment Assigned Desktop Specialist GA Rosa DPOA/Assigned Designee Name Roxy Berry, blaze Contact Information [phone] Advance Directives? No History Provided By Medical Record Prior Living Arrangements Skilled Nurse Facility Household Members other Facility Name Admitted From: [facility] Willing to Return to Facility? Yes Independent with ADL's No Is patient alert and oriented? 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
[2023-08-03] MEDS: cefTRIAXone 2,000 MG in SODIUM CHLORIDE 0.9% 100 ML 200 MG IV (17:20)
[2023-08-03] MEDS: AZITHROMYCIN 500 MG in DEXTROSE 5% IN WATER 250 ML 250 MG IV (18:48)
[2023-08-03] MEDS: FAMOTIDINE 20 MG/2 ML VIAL IV (20:29)
[2023-08-03] MEDS: INSULIN GLARGINE 100 UNIT/ML 3ML PEN 26 UNIT SUBCUT (20:40)
--- NOTE | 2023-08-03 21:21 | PC.NURSE ---
Patient BG 370, scheduled Lantus and SSI Lispro given, hospitalist on duty notified, no new order.
[2023-08-04] VITALS (30 sets, daily range): BP systolic 90–134; BP diastolic 51–86; PULSE 45–141; RESP 20–44; TEMP 31–37.2; O2SAT 85–99
[2023-08-04] MEDS: methylPREDNISolone 125 MG/2 ML VIAL 60 MG IV ×3 (00:45→09:01)
[2023-08-04 05:41] LABS: Add Manual Diff / Slide Review NO; Basophils Absolute Auto 0 /uL (0-100); Basophils Percent Auto 0.2 % (0-2); Eosinophils Absolute Auto 0 /uL (0-450); Hemoglobin 10.1 g/dL (12.0-16.0); Lymphocytes Absolute Auto 700 /uL (1100-4500); Lymphocytes Percent Auto 8.4 % (25-40); Mean Corpuscular HGB Conc 33.6 % (30-36); Mean Corpuscular Hemoglobin 34.3 PG (26-34); Mean Corpuscular Volume 101.9 fL (80-100); Monocytes Absolute Auto 300 /uL (0-900); Monocytes Percent Auto 3.9 % (3-14); Neutrophils Absolute Auto 6900 /uL (1500-7000); Neutrophils Percent Auto 87.5 % (50-75); Platelet Count 265 X10^3/uL (150-400); Red Blood Cell Count 2.95 X10^6/uL (4.0-5.2); Red Cell Distribution Width 16.7 % (11.6-14.8); White Blood Cell Count 7.9 X10^3/uL (4.5-11.0)
[2023-08-04] MEDS: FUROSEMIDE 40 MG/4 ML VIAL IV ×2 (06:15→19:46)
[2023-08-04] MEDS: BUDESONIDE 0.5 MG/2 ML NEB INH ×2 (07:45→20:44)
[2023-08-04] MEDS: carvediloL 3.125 MG TABLET PO ×2 (08:02→20:27)
[2023-08-04] MEDS: FENOFIBRATE, MICRONIZED 67 MG CAPSULE 201 MG PO (08:02)
[2023-08-04] MEDS: ASPIRIN EC 81 MG TABLET PO (08:03)
[2023-08-04] MEDS: HEPARIN 5,000 UNIT/ML VIAL 5000 UNIT SUBCUT (08:03)
[2023-08-04] MEDS: METOPROLOL TARTRATE 5 MG/5 ML INJ IV (08:15)
[2023-08-04] MEDS: INSULIN GLARGINE 100 UNIT/ML 3ML PEN 26 UNIT SUBCUT ×2 (08:24→20:27)
[2023-08-04] MEDS: INSULIN LISPRO 100 UNIT/ML 3ML VIAL SUBCUT ×4 (08:24→20:28)
--- NOTE | 2023-08-04 10:30 | PC.NURSE ---
Day shift: Pt A&Ox3, switched from BiPAP to NC at 0750 by RT. VSS. 0800, pt in Afib RVR HR 170's. Provider notified. New orders received. BP stable, pt c/o chest fluttering SOB, placed back on BiPAP. Medication administered per MAY. 857 pt converted to NSR, provider notified. VSS. Off BiPAP at 0858. 4L NC. 1015 97%, titrated O2 2L, 95%. Call light within reach, bed alarm active. Care ongoing, will continue to monitor.
[2023-08-04 12:55] LABS: Blood Urea Nitrogen 54 mg/dL (7-17); Calcium 10.1 mg/dL (8.4-10.2); Chloride 93 mmol/L (98-107); Estimated Glomerular Filt Rate 41 mL/min (>60); Glucose 229 mg/dL (80-110); HEMOLYSIS < 15 (0-50); Potassium 2.9 mmol/L (3.4-5.1); Sodium 144 mmol/L (137-145)
[2023-08-04 13:09] LABS: Carbon Dioxide 43 mmol/L (22-32)
[2023-08-04] MEDS: HEPARIN 5,000 UNIT/ML VIAL 7500 UNIT SUBCUT ×2 (13:15→21:19)
[2023-08-04] MEDS: POTASSIUM CHLORIDE 20 MEQ TAB 40 MEQ PO ×2 (13:15→18:24)
--- NOTE | 2023-08-04 15:17 | P.PN_ITS ---
Subjective Subjective Interval history: More alert today, back to her usual baseline. On intermittent bipap when asleep, otherwise appears at baseline today. This morning had RVR with rates into the 180s. Gave 5 mg IV metoprolol x1, initially did not improve so ordered digoxin, but coverted to NSR in the 80s prior to administration. Will continue to monitor overnight for recurrence. BP soft initially after IV metoprolol given. Remains on low dose coreg. Exam Vital Signs (past 8 hours): - 08/04/23 08:00 08/04/23 08:00 08/04/23 08:02 Temperature 98.9 F Pulse Rate 141 H Respiratory Rate Blood Pressure 124/58 L Pulse Oximetry Oxygen Delivery Method BiPAP Oxygen Flow Rate 08/04/23 09:00 08/04/23 10:00 08/04/23 10:22 Temperature 98.4 F Pulse Rate 96 H 68 77 Respiratory Rate 23 30 H 20 Blood Pressure 106/79 95/55 L Pulse Oximetry 95 97 97 Oxygen Delivery Method Nasal Cannula Oxygen Flow Rate 4 2 08/04/23 11:00 08/04/23 11:36 08/04/23 12:35 Temperature 98.8 F Pulse Rate 67 78 Respiratory Rate 33 H 44 H Blood Pressure 92/51 L 103/56 L Pulse Oximetry 96 90 L 94 Oxygen Delivery Method Oxygen Flow Rate 4 1 4 08/04/23 13:00 08/04/23 14:00 Temperature Pulse Rate 74 72 Respiratory Rate 30 H 33 H Blood Pressure 94/55 L 97/54 L Pulse Oximetry 92 94 Oxygen Delivery Method Oxygen Flow Rate 4 4 Fraction of Inspired Oxygen 35 Oxygen Delivery Method Nasal Cannula Oxygen Flow Rate 4 Narrative Exam Narrative: NAD, alert Comfortable on BiPAP. Morbidly obese. Lungs are clear, normal rate and effort. Heart is regular, no murmur gallop or rub. Abdomen is soft, non distended. Extremities are free of edema. Objective Labs 08/04/23 04:13 08/04/23 04:13 Labs: Laboratory Results - last 24 hr 08/04/23 04:13 WBC 7.9 RBC 2.95 L Hgb 10.1 L Hct 30.0 L MCV 101.9 H MCH 34.3 H MCHC 33.6 RDW 16.7 H Plt Count 265 Neut % (Auto) 87.5 H Lymph % (Auto) 8.4 L [place] % (Auto) 3.9 Eos % (Auto) 0.0 L Baso % (Auto) 0.2 Neut # (Auto) 6900 Lymph # (Auto) 700 L [place] # (Auto) 300 Eos # (Auto) 0 Baso # (Auto) 0 Sodium 144 Potassium 2.9 L D Chloride 93 L Carbon Dioxide 43 H* BUN 54 H Creatinine 1.46 H Estimated GFR 41 L BUN/Creatinine Ratio 37.0 H Glucose 229 H Calcium 10.1 PFSH Medical History PONCE (obstructive sleep apnea) Chronic hypoxemic respiratory failure COPD (chronic obstructive pulmonary disease) DM2 (diabetes mellitus, type 2) HTN (hypertension) Thyroiditis Systolic and diastolic CHF, chronic Obesity Surgical History S/P hernia surgery Family History Mother No pertinent past medical history Father No pertinent past medical history Social History household members: other Smoking Status: Former smoker alcohol intake: former Assessment & Plan Assessment & Plan narrative: 1. Acute hypercarbic and hypoxemic respiratory failure, present on admission and active. 2. Possible COPD exacerbation, present on admission and active. 3. Possible bacterial pneumonia, present on admission and active. 4. Acute on chronic systolic heart failure with pulmonary edema, present on admission and active. 5. Morbid obesity with BMI of over 50, present on admission and active. 6. History of recurrent ESBL UTI. 7. History of chronic hypoxic respiratory failure, present on admission and active. 8. DM 2, present on admission and active. 9. Acute kidney injury on chronic kidney disease with baseline creatinine 1.3, present on admission and active. 10. Paroxysmal atrial fibrillation with RVR. PLAN: -Continue empiric antibiotics for pneumonia. -we will also treat for COPD exacerbation with bronchodilators and corticosteroids, continue. -continue diuresis with furosemide 40 mg IV BID, needs med recc from SNF, consider resuming home diuretic starting tomorrow as likely nearing euvolemia. -she is full resuscitation as previously confirmed. Possible return to [facility] tomorrow if no return of RVR, remains at baseline mentation and breathing. She is admitted inpatient status with an expectation of over 2 midnights need for hospital services.
[2023-08-04] MEDS: cefTRIAXone 2,000 MG in SODIUM CHLORIDE 0.9% 100 ML 200 MG IV (17:50)
[2023-08-04] MEDS: ACETAMINOPHEN 325 MG TABLET 650 MG PO (18:23)
[2023-08-04] MEDS: AZITHROMYCIN 500 MG in DEXTROSE 5% IN WATER 250 ML 250 MG IV (18:40)
[2023-08-04] MEDS: buPROPion SR 150 MG TAB PO (20:26)
[2023-08-04] MEDS: FAMOTIDINE 20 MG/2 ML VIAL IV (20:27)
[2023-08-04] MEDS: ALBUTEROL/IPRATROPIUM 3 ML AMPUL INH ×2 (20:44→23:14)
[2023-08-05] VITALS (43 sets, daily range): BP systolic 93–132; BP diastolic 56–88; PULSE 49–98; RESP 17–43; TEMP 30.1–37.1; O2SAT 90–100
[2023-08-05] MEDS: FUROSEMIDE 40 MG/4 ML VIAL IV ×2 (05:53→18:15)
[2023-08-05] MEDS: HEPARIN 5,000 UNIT/ML VIAL 7500 UNIT SUBCUT ×3 (05:53→20:51)
[2023-08-05] MEDS: ALBUTEROL/IPRATROPIUM 3 ML AMPUL INH ×5 (06:03→23:02)
[2023-08-05] MEDS: BUDESONIDE 0.5 MG/2 ML NEB INH ×2 (06:03→18:44)
[2023-08-05 06:28] LABS: Add Manual Diff / Slide Review NO; Basophils Absolute Auto 100 /uL (0-100); Basophils Percent Auto 0.7 % (0-2); Eosinophils Absolute Auto 0 /uL (0-450); Hematocrit 31.9 % (36-46); Hemoglobin 10.5 g/dL (12.0-16.0); Lymphocytes Absolute Auto 1100 /uL (1100-4500); Lymphocytes Percent Auto 12.6 % (25-40); Mean Corpuscular HGB Conc 33.1 % (30-36); Mean Corpuscular Hemoglobin 33.6 PG (26-34); Mean Corpuscular Volume 101.6 fL (80-100); Monocytes Absolute Auto 600 /uL (0-900); Monocytes Percent Auto 6.9 % (3-14); Neutrophils Absolute Auto 7100 /uL (1500-7000); Neutrophils Percent Auto 79.8 % (50-75); Platelet Count 254 X10^3/uL (150-400); Red Blood Cell Count 3.14 X10^6/uL (4.0-5.2); Red Cell Distribution Width 16.9 % (11.6-14.8); White Blood Cell Count 8.9 X10^3/uL (4.5-11.0)
[2023-08-05 06:40] LABS: BUN Creatinine Ratio 44.4 (6-22); Blood Urea Nitrogen 67 mg/dL (7-17); Calcium 9.5 mg/dL (8.4-10.2); Chloride 90 mmol/L (98-107); Estimated Glomerular Filt Rate 39 mL/min (>60); Glucose 233 mg/dL (80-110); HEMOLYSIS 17 (0-50); Potassium 3.6 mmol/L (3.4-5.1); Sodium 139 mmol/L (137-145)
[2023-08-05 06:54] LABS: Carbon Dioxide 42 mmol/L (22-32)
[2023-08-05] MEDS: carvediloL 3.125 MG TABLET PO (08:29)
[2023-08-05] MEDS: FENOFIBRATE, MICRONIZED 67 MG CAPSULE 201 MG PO (08:29)
[2023-08-05] MEDS: predniSONE 20 MG TABLET 40 MG PO (08:29)
[2023-08-05] MEDS: ASPIRIN EC 81 MG TABLET PO (08:29)
[2023-08-05] MEDS: INSULIN LISPRO 100 UNIT/ML 3ML VIAL SUBCUT ×4 (08:30→20:44)
[2023-08-05] MEDS: INSULIN GLARGINE 100 UNIT/ML 3ML PEN 26 UNIT SUBCUT ×2 (08:30→20:44)
--- NOTE | 2023-08-05 12:50 | CM.DPC ---
DCP Cont: Dr. Gillespie wanted to discharge patient back to [facility] today. Called Ursula over at [facility], stated that they do not have an admissions rn today. 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 Inquired upon this. Ursula did check with her administration, confirmed that they have to have an RN to do this admissions. They can accept her tomorrow, will pick her up at about 1230, they will bring over her wheel-chair. Will most likely be an avoidable day, hospitalist is updated. He will work on tapering her off some of her meds today. P: DCP to continue to follow. Patient is to discharge most likely tomorrow back to [facility], they will bring over her chair, at about 1230, will not need PASSR, is a readmission with no behavioral changes. Updated nurse, Rayray, who will also be here tomorrow. Lili Pierre, RN/Vending Machine Servicer
--- NOTE | 2023-08-05 14:47 | P.PN_ITS ---
Subjective Subjective Interval history: Back to her usual baseline. Feels a bit more weak, but otherwise doing okay. Breathing feels back to normal, [facility] unable to accept patient back until tomorrow. Exam Vital Signs (past 8 hours): - 08/05/23 07:00 08/05/23 07:00 08/05/23 08:00 Temperature 97.2 F L Pulse Rate 51 L 52 L Respiratory Rate 25 H 31 H Blood Pressure 117/67 Pulse Oximetry 97 98 Oxygen Delivery Method Oxygen Flow Rate 08/05/23 08:00 08/05/23 08:00 08/05/23 08:40 Temperature Pulse Rate 69 Respiratory Rate 30 H Blood Pressure 117/70 Pulse Oximetry 97 Oxygen Delivery Method Nasal Cannula BiPAP Oxygen Flow Rate 08/05/23 09:00 08/05/23 09:00 08/05/23 09:39 Temperature Pulse Rate 98 H 97 H Respiratory Rate 35 H 22 Blood Pressure 116/77 Pulse Oximetry 99 90 L Oxygen Delivery Method Nasal Cannula Oxygen Flow Rate 2 08/05/23 10:25 08/05/23 10:47 08/05/23 10:47 Temperature Pulse Rate 72 70 Respiratory Rate 31 H 24 Blood Pressure 107/65 Pulse Oximetry 98 98 Oxygen Delivery Method Oxygen Flow Rate 08/05/23 11:00 08/05/23 11:00 08/05/23 12:00 Temperature Pulse Rate 71 Respiratory Rate 38 H Blood Pressure 107/64 Pulse Oximetry 98 Oxygen Delivery Method Nasal Cannula BiPAP Oxygen Flow Rate 08/05/23 12:00 08/05/23 12:00 08/05/23 12:00 Temperature 97.3 F L Pulse Rate 68 Respiratory Rate 29 H Blood Pressure 125/58 L Pulse Oximetry 100 Oxygen Delivery Method Oxygen Flow Rate 2 08/05/23 12:15 08/05/23 13:00 08/05/23 13:01 Temperature Pulse Rate 67 72 75 Respiratory Rate 27 H 32 H 43 H Blood Pressure Pulse Oximetry 100 100 100 Oxygen Delivery Method Oxygen Flow Rate 08/05/23 13:01 08/05/23 13:37 08/05/23 14:00 Temperature Pulse Rate 70 72 Respiratory Rate 23 30 H Blood Pressure 116/63 Pulse Oximetry 96 Oxygen Delivery Method Nasal Cannula Oxygen Flow Rate 2 08/05/23 14:00 Temperature Pulse Rate Respiratory Rate Blood Pressure 102/63 Pulse Oximetry Oxygen Delivery Method Oxygen Flow Rate Fraction of Inspired Oxygen 35 Oxygen Delivery Method Nasal Cannula Oxygen Flow Rate 2 Narrative Exam Narrative: NAD, alert Comfortable on BiPAP. Morbidly obese. Lungs are clear, normal rate and effort. Heart is regular, no murmur gallop or rub. Abdomen is soft, non distended. Extremities are free of edema. Objective Labs 08/05/23 06:20 08/05/23 06:20 Labs: Laboratory Results - last 24 hr 08/05/23 06:20 WBC 8.9 RBC 3.14 L Hgb 10.5 L Hct 31.9 L MCV 101.6 H MCH 33.6 MCHC 33.1 RDW 16.9 H Plt Count 254 Neut % (Auto) 79.8 H Lymph % (Auto) 12.6 L [place] % (Auto) 6.9 Eos % (Auto) 0.0 L Baso % (Auto) 0.7 Neut # (Auto) 7100 H Lymph # (Auto) 1100 [place] # (Auto) 600 Eos # (Auto) 0 Baso # (Auto) 100 Sodium 139 Potassium 3.6 Chloride 90 L Carbon Dioxide 42 H* BUN 67 H Creatinine 1.51 H Estimated GFR 39 L BUN/Creatinine Ratio 44.4 H Glucose 233 H Calcium 9.5 PFSH Medical History PONCE (obstructive sleep apnea) Chronic hypoxemic respiratory failure COPD (chronic obstructive pulmonary disease) DM2 (diabetes mellitus, type 2) HTN (hypertension) Thyroiditis Systolic and diastolic CHF, chronic Obesity Surgical History S/P hernia surgery Family History Mother No pertinent past medical history Father No pertinent past medical history Social History household members: other Smoking Status: Former smoker alcohol intake: former Assessment & Plan Assessment & Plan narrative: 1. Acute hypercarbic and hypoxemic respiratory failure, present on admission and active. 2. Possible COPD exacerbation, present on admission and active. 3. Possible bacterial pneumonia, present on admission and active. 4. Acute on chronic systolic heart failure with pulmonary edema, present on admission and active. 5. Morbid obesity with BMI of over 50, present on admission and active. 6. History of recurrent ESBL UTI. 7. History of chronic hypoxic respiratory failure, present on admission and active. 8. DM 2, present on admission and active. 9. Acute kidney injury on chronic kidney disease with baseline creatinine 1.3, present on admission and active. 10. Paroxysmal atrial fibrillation with RVR. PLAN: -Continue empiric antibiotics for pneumonia, completed azithromycin. Continue ceftriaxone until discharge. -we will also treat for COPD exacerbation with bronchodilators and corticosteroids, continue prednisone for a few days after discharge as well. -continue diuresis with furosemide 40 mg IV BID until discharge planned for tomorrow, then resume home torsemide. -she is full resuscitation as previously confirmed. -cr stable , continue to monitor with IV furosemide. Bicarb is stable as well. Plan for discharge to [facility] tomorrow, they were unable to accept a new admission today. She is admitted inpatient status with an expectation of over 2 midnights need for hospital services.
[2023-08-05] MEDS: cefTRIAXone 2,000 MG in SODIUM CHLORIDE 0.9% 100 ML 200 MG IV (17:02)
[2023-08-05] MEDS: buPROPion SR 150 MG TAB PO (20:43)
[2023-08-05] MEDS: FAMOTIDINE 20 MG TABLET PO (20:44)
[2023-08-06] VITALS (13 sets, daily range): BP systolic 98–121; BP diastolic 57–69; PULSE 60–82; RESP 18–31; TEMP 31.2–35.8; O2SAT 95–100
--- NOTE | 2023-08-06 06:23 | RT ---
Patient placed on AVAP mode around 2200 and tolerated till 0430 when she was fully awake and wanting to come off. Placed on 2 L NC for SPO2 of 96-98%. AVAP settings of set Vt 450 breathing 430-500, backup rate of 20 breathing 21-26. EPAP of 6 and pressure limits of min 14 and max 28, FIO2 of 35% for SPO2 of 96% while on settings. Mask changed to large full face for better fit to nose and chin. No breakdown noted.
[2023-08-06] MEDS: HEPARIN 5,000 UNIT/ML VIAL 7500 UNIT SUBCUT (06:38)
[2023-08-06] MEDS: ALBUTEROL/IPRATROPIUM 3 ML AMPUL INH (07:49)
[2023-08-06] MEDS: BUDESONIDE 0.5 MG/2 ML NEB INH (07:49)
[2023-08-06] MEDS: FENOFIBRATE, MICRONIZED 67 MG CAPSULE 201 MG PO (08:02)
[2023-08-06] MEDS: predniSONE 20 MG TABLET 40 MG PO (08:02)
[2023-08-06] MEDS: ASPIRIN EC 81 MG TABLET PO (08:02)
[2023-08-06] MEDS: carvediloL 3.125 MG TABLET PO (08:02)
[2023-08-06] MEDS: TORSEMIDE 10 MG TABLET PO (08:02)
[2023-08-06] MEDS: INSULIN GLARGINE 100 UNIT/ML 3ML PEN 26 UNIT SUBCUT (08:03)
--- NOTE | 2023-08-06 08:42 | PM.DS.1 ---
History of Present Illness History of Present Illness Date Patient Seen: 08/06/23 Time Patient Seen: 08:42 Chief complaint: Unresponsive Narrative: Per admitting provider, This patient was a long-term care resident of [facility]. She has a 62-year-old female with a history of COPD and morbid obesity as well as chronic systolic heart failure. She was found to be less responsive today and sent to the ER where she was found to be in acute hypercarbic respiratory failure with a pCO2 of over 110. She was started on BiPAP and remained obtunded about 1 hour later. The patient uses CPAP chronically at night and does have a history of insulin-dependent diabetes as well. The patient can not provide any history as she is obtunded from her hypercarbia. Discharge Providers Provider Date of admission: 08/02/23 17:46 Discharge Date: 08/06/23 Consults: 08/02/23 18:29 Consult to Cardio/Pulmonary Rehabilitation Routine Comment: Physician Instructions: Evaluate and treat Discharge provider: Esteban Gillespie DO Summary Hospital Course Discharge Diagnosis: 1. Acute hypercarbic and hypoxemic respiratory failure, present on admission and active. 2. Possible COPD exacerbation, present on admission and active. 3. Possible bacterial pneumonia, present on admission and active. 4. Acute on chronic systolic heart failure with pulmonary edema, present on admission and active. 5. Morbid obesity with BMI of over 50, present on admission and active. 6. History of recurrent ESBL UTI. 7. History of chronic hypoxic respiratory failure, present on admission and active. 8. DM 2, present on admission and active. 9. Acute kidney injury on chronic kidney disease with baseline creatinine 1.3, present on admission and active. 10. Paroxysmal atrial fibrillation with RVR. Hospital Course: This is a 62 year old female with PMH of COPD with chronic hypercapnea and chronic hypoxia, obesity, DM2, recurrent ESBL infections, paroxysmal atrial fibrillation who was admitted for acute on chronic hypercapnic and hypoxemic respiratory failure. This was most likely due to a combination of COPD exacerbation with possible bacterial pneumonia and mild acute on chronic systolic heart failure. Patient improved with antibiotics, steroids, and diuresis. She did have a brief episode of RVR, but this resolved and did not recur after 5 mg of IV metoprolol was given. She has since returned to her baseline mentation, and is transferring back to her [facility] facility where she is a resident. Time Spent with Patient Time spent: Greater than 30 minutes Exam Vital Signs (past 8 hours): - 08/06/23 01:00 08/06/23 01:00 08/06/23 01:56 Temperature Pulse Rate 65 Respiratory Rate 20 Blood Pressure 103/63 103/63 Pulse Oximetry 96 Oxygen Delivery Method Oxygen Flow Rate 0 Fraction of Inspired Oxygen 35 08/06/23 02:00 08/06/23 02:00 08/06/23 03:00 Temperature Pulse Rate 62 66 Respiratory Rate 26 H 22 Blood Pressure 98/68 Pulse Oximetry 96 97 Oxygen Delivery Method Oxygen Flow Rate 0 Fraction of Inspired Oxygen 08/06/23 03:00 08/06/23 04:00 08/06/23 04:00 Temperature 96.4 F L Pulse Rate 71 Respiratory Rate 23 Blood Pressure 111/66 119/58 L Pulse Oximetry 99 Oxygen Delivery Method BiPAP Oxygen Flow Rate 0 0 Fraction of Inspired Oxygen 08/06/23 04:40 08/06/23 05:00 08/06/23 06:00 Temperature Pulse Rate 64 Respiratory Rate 29 H Blood Pressure 100/57 L 106/69 Pulse Oximetry 98 99 Oxygen Delivery Method Nasal Cannula Oxygen Flow Rate 2 2 Fraction of Inspired Oxygen 08/06/23 06:00 08/06/23 07:00 08/06/23 07:41 Temperature Pulse Rate 70 71 Respiratory Rate 29 H 31 H Blood Pressure 121/64 Pulse Oximetry 97 100 Oxygen Delivery Method Oxygen Flow Rate 2 Fraction of Inspired Oxygen 08/06/23 07:41 08/06/23 07:49 08/06/23 08:00 Temperature Pulse Rate 82 77 Respiratory Rate 26 H 18 Blood Pressure Pulse Oximetry 99 99 Oxygen Delivery Method Nasal Cannula BiPAP Oxygen Flow Rate 2 Fraction of Inspired Oxygen 28 08/06/23 08:00 Temperature Pulse Rate 68 Respiratory Rate 28 H Blood Pressure Pulse Oximetry 100 Oxygen Delivery Method Oxygen Flow Rate Fraction of Inspired Oxygen Fraction of Inspired Oxygen 28 SaO2/FiO2 Ratio 353 Oxygen Delivery Method BiPAP Oxygen Flow Rate 2 Narrative Exam Narrative: NAD, alert Comfortable on BiPAP. Morbidly obese. Lungs are clear, normal rate and effort. Heart is regular, no murmur gallop or rub. Abdomen is soft, non distended. Extremities are free of edema. Objective Labs 08/05/23 06:20 08/05/23 06:20 [facility] Medical History PONCE (obstructive sleep apnea) Chronic hypoxemic respiratory failure COPD (chronic obstructive pulmonary disease) DM2 (diabetes mellitus, type 2) HTN (hypertension) Thyroiditis Systolic and diastolic CHF, chronic Obesity Surgical History S/P hernia surgery Family History Mother No pertinent past medical history Father No pertinent past medical history Social History household members: other Smoking Status: Former smoker alcohol intake: former Discharge Plan Discharge Plan Patient Disposition: SNF Transfer to: [facility] Provider Discharge Comment: 62 F admitted with acute on chronic hypercapnic respiratory failure. Treated for PNA, COPD exacerbation, and heart failure exacerbation. Now improved. No changes to home medications other than completed treatment of COPD exacerbation. She completed pneumonia treatments in the hospital. Discharge orders & Medications Prescriptions: New prednisone 20 mg Tablet 40 mg PO DAILY 3 Days Qty: 6 0RF Continued albuterol sulfate 90 mcg/actuation HFA aerosol inhaler 4 puff INHALATION Q4H PRN (Reason: Shortness Of Breath Or Wheezing) levothyroxine 175 mcg tablet 175 mcg PO DAILY potassium chloride 10 mEq tablet extended release 20 meq PO DAILY midodrine 5 mg tablet 10 mg PO BID torsemide 10 mg tablet 10 mg PO BEDTIME bupropion HCl 150 mg tablet sustained-release 12 hr 150 mg PO BEDTIME sennosides [senna] 8.6 mg tablet 17.2 mg PO BEDTIME acetaminophen [Tylenol] 325 mg Tablet 650 mg PO TID trazodone 50 mg tablet 25 mg PO BEDTIME aspirin 81 mg Tablet,Delayed Release (Dr/Ec) 81 mg PO DAILY carvedilol 3.125 mg tablet 3.125 mg PO BID cyanocobalamin (vitamin B-12) 500 mcg Tablet 500 mcg PO DAILY fluoxetine 20 mg Tablet 20 mg PO DAILY gabapentin 300 mg Capsule 300 mg PO BEDTIME montelukast 10 mg Tablet 10 mg PO DAILY nystatin 100,000 unit/gram Powder 1 applic TOPICAL BID PRN (Reason: Rash) insulin lispro [Humalog U-100 Insulin] 100 unit/mL Solution See Protocol SUBCUT TIDWM Protocol: TITRATE PER PROTOCOL Rx Instructions: sliding scale ondansetron 4 mg Tablet,Disintegrating 4 mg PO Q8H PRN (Reason: Nausea) fluticasone propionate 50 mcg/actuation Anderson,Suspension 2 spray INTRANASAL DAILY Rx Instructions: administer into each nostril loratadine 10 mg Tablet 10 mg PO DAILY rosuvastatin 40 mg Tablet 40 mg PO DAILY tiotropium bromide [Spiriva with HandiHaler] 18 mcg Capsule, W/Inhalation Device 1 cap INHALATION DAILY Rx Instructions: puncture 1 cap using device; one dose = 2 inhalations fenofibrate 160 mg Tablet 160 mg PO DAILY budesonide-formoterol 160-4.5 mcg/actuation Hfa Aerosol Inhaler 2 puff INHALATION Q4H PRN (Reason: Wheezing) insulin glargine 100 unit/mL (3 mL) Insulin Pen 22 unit SUBCUT BID magnesium oxide 200 mg magnesium Tablet 200 mg PO DAILY Visit Report/Discharge Packet Stand Alone Forms: Patient Portal/API
--- NOTE | 2023-08-06 09:20 | CM.DPC ---
DCP Discharge SNF Per MD, pt remains medically stable to d/c to SNF today and no identified barriers to discharge. ADY called admissions at [facility] and confirmed they can still accept pt today and can bring over her w/c to [facility] pt into and provide transport around 1230 today. ADY faxed signed med list, MD orders, no scripts, and no PASRR needed. Awaiting discharge summary to be signed. ADY updated RN, tetryl nitrator operator, BORING MACHINE OPERATOR VERTICAL and provided RN report number. Pt remains agreeable to return to her LTC bed at [facility] today. Plan: Patient to discharge to [facility] SNF via facility w/c van around 1230 today. [place]
[2023-08-06] MEDS: INSULIN LISPRO 100 UNIT/ML 3ML VIAL SUBCUT (12:03)
== END 2023-08-06 12:55 | DRG 139 ==
LOC: ED 17:45 → AC 17:47 → ICU 21:32
PROVIDERS: Emergency Medicine; Admitting Provider Hospitalist; Emergency Provider Emergency Medicine; Referring Provider Emergency Medicine; Visit Provider Hospitalist
DX: J15.9 Unspecified bacterial pneumonia (principal); J44.1 Chronic obstructive pulmonary disease with (acute) exacerbation; E66.01 Morbid (severe) obesity due to excess calories; E11.22 Type 2 diabetes mellitus with diabetic chronic kidney disease; I13.0 Hypertensive heart and chronic kidney disease with heart failure and stage 1 through stage 4 chronic kidney disease, or unspecified chronic kidney disease; N18.9 Chronic kidney disease, unspecified; G47.33 Obstructive sleep apnea (adult) (pediatric); J96.22 Acute and chronic respiratory failure with hypercapnia; I48.0 Paroxysmal atrial fibrillation; I50.23 Acute on chronic systolic (congestive) heart failure; E06.9 Thyroiditis, unspecified; Z87.891 Personal history of nicotine dependence; Z68.43 Body mass index [BMI] 50.0-59.9, adult; Z79.4 Long term (current) use of insulin
CPT/HCPCS: 36415; 36600; 71045; 80048; 80053; 81015; 82550; 82805; 82962; 83605; 83690; 83735; 83880; 84484; 85025; 85610; 85730; 87040; 87077; 87086; 87797; 93005; 93010; 94640; 94660; 96365; 96367; 96375; 99285; 99291; 99292; A9270; J0696; J1644; J1815; J1940; J2919

== ENCOUNTER 2023-10-24 11:44 | Inpatient (IN) | payer OTHER, MEDICAID, SELFPAY ==
[2023-07-02 15:36] VITALS: RESP 0
[2023-08-02 17:54] VITALS: BMI 50.3
[2023-08-06 01:56] VITALS: PULSE 65; RESP 21; O2SAT 96
[2023-10-24] VITALS (42 sets, daily range): BP systolic 87–138; BP diastolic 50–93; PULSE 60–85; RESP 20–48; TEMP 31–36.8; O2SAT 76–99; BMI 49.9
--- NOTE | 2023-10-24 12:04 | ED.GENADULT ---
HPI - General Adult General Chief complaint: Neuro Symptoms/Deficit Stated complaint: AMS Time Seen by Provider: 10/24/23 11:54 Source: patient, RN notes reviewed and old records reviewed Mode of arrival: EMS Limitations: no limitations History of Present Illness HPI narrative: 63-year-old female with history of morbid obesity, PONCE, COPD on 2 L nasal cannula with multiple visits for hypercapnic respiratory failure, CHF, diabetes type 2 presents with altered mental status. Per EMS staff noted she was little bit more somnolent this morning last normal possibly last night. Glucose was 109 this morning she had her regular insulin was told to go get breakfast but did not eat and was found to be significantly altered with a glucose in the 50s with EMS. Patient received D10 glucose improved to the 110 range but she can track open her eyes but otherwise not conversant. Also has a history of PONCE and COPD her CPAP broke and she has been without it because insurance will not replace it without another sleep study she has been scheduled to have her sleep study in the next month. Patient will open her eyes to verbal stimuli at sometimes, will open eyes to physical stimuli. Patient can tell me her name, denies pain. Does not answer any questions currently. Related Data Home Medications Medication Instructions Recorded Confirmed acetaminophen 325 mg tablet 650 mg PO TID 05/25/22 10/24/23 (Tylenol) aspirin 81 mg tablet,delayed 81 mg PO DAILY 05/25/22 10/24/23 release budesonide-formoterol HFA 160 2 puff inhalation Q4H PRN Wheezing 05/25/22 10/24/23 mcg-4.5 mcg/actuation aerosol inhaler bupropion HCl 150 mg tablet,12 hr 100 mg PO BEDTIME 05/25/22 10/24/23 sustained-release carvedilol 3.125 mg tablet 3.125 mg PO BID 05/25/22 10/24/23 cyanocobalamin (vitamin B-12) 500 500 mcg PO DAILY 05/25/22 10/24/23 mcg tablet fenofibrate 160 mg tablet 160 mg PO DAILY 05/25/22 10/24/23 fluoxetine 20 mg tablet 20 mg PO DAILY 05/25/22 10/24/23 fluticasone propionate 50 2 spray intranasal DAILY 05/25/22 10/24/23 mcg/actuation nasal spray,suspension gabapentin 300 mg capsule 300 mg PO BEDTIME 05/25/22 10/24/23 insulin lispro 100 unit/mL See Protocol SUBCUT TIDWM 05/25/22 10/24/23 subcutaneous solution (Humalog U-100 Insulin) loratadine 10 mg tablet 10 mg PO DAILY 05/25/22 10/24/23 magnesium oxide 200 mg PO DAILY 05/25/22 10/24/23 montelukast 10 mg tablet 10 mg PO DAILY 05/25/22 10/24/23 nystatin 100,000 unit/gram topical 1 applic topical BID PRN Rash 05/25/22 10/24/23 powder ondansetron 4 mg disintegrating 4 mg PO Q8H PRN Nausea 05/25/22 10/24/23 tablet rosuvastatin 40 mg tablet 40 mg PO DAILY 05/25/22 10/24/23 sennosides 8.6 mg tablet (senna) 17.2 mg PO BEDTIME 05/25/22 10/24/23 tiotropium bromide 18 mcg capsule 1 cap inhalation DAILY 05/25/22 10/24/23 with inhalation device (Spiriva with HandiHaler) trazodone 50 mg tablet 50 mg PO BEDTIME 05/25/22 10/24/23 albuterol sulfate 90 mcg/actuation 4 puff inhalation Q4H PRN 08/15/22 10/24/23 aerosol inhaler Shortness Of Breath Or Wheezing levothyroxine 175 mcg tablet 175 mcg PO DAILY 08/15/22 10/24/23 potassium chloride 10 mEq 20 meq PO DAILY 08/15/22 10/24/23 tablet,extended release midodrine 5 mg tablet 10 mg PO BID 05/20/23 10/24/23 torsemide 10 mg tablet 20 mg PO BEDTIME 05/20/23 10/24/23 albuterol sulfate 2.5 mg/3 mL 2.5 mg inhalation Q6H PRN 10/24/23 10/24/23 (0.083 %) solution for nebulization wheezing/cough bisacodyl 10 mg rectal suppository 10 mg WI DAILY PRN Constipation 10/24/23 10/24/23 bisacodyl 5 mg tablet 5 mg PO BEDTIME PRN Constipation 10/24/23 10/24/23 docusate sodium 100 mg capsule 200 mg PO BID 10/24/23 10/24/23 fluconazole 200 mg tablet 200 mg PO DAILY 10/24/23 10/24/23 insulin detemir U-100 100 unit/mL 25 unit SUBCUT BID 10/24/23 10/24/23 (3 mL) subcutaneous pen (Levemir FlexPen) insulin lispro 100 unit/mL 6 unit SUBCUT AC 10/24/23 10/24/23 subcutaneous pen ipratropium 0.5 mg-albuterol 3 mg 3 ml inhalation Q4H PRN COPD 10/24/23 10/24/23 (2.5 mg base)/3 mL nebulization soln polyethylene glycol 3350 17 gram 17 g PO DAILY 10/24/23 10/24/23 oral powder packet (Miralax) prednisone 20 mg tablet 30 mg PO DAILY 10/24/23 10/24/23 Allergies Allergy/AdvReac Type Severity Reaction Status Date / Time No Known Drug Allergies Allergy Verified 10/24/23 11:56 Review of Systems Review of Systems ROS Unobtainable: All systems reviewed & are unremarkable except as noted in HPI and below Patient History Medical History PONCE (obstructive sleep apnea) Chronic hypoxemic respiratory failure COPD (chronic obstructive pulmonary disease) DM2 (diabetes mellitus, type 2) HTN (hypertension) Thyroiditis Systolic and diastolic CHF, chronic Obesity Surgical History S/P hernia surgery Family History Mother No pertinent past medical history Father No pertinent past medical history Social History household members: other Smoking Status: Former smoker alcohol intake: former Smoking Status: Former smoker alcohol intake frequency: other Substance Use Type: does not use Exam Narrative Exam Narrative: GEN: Obese female, responds to verbal stimuli, patient appears to be in moderate distress. HEENT: Atraumatic, pupils are equal round reactive to light, extraocular movements are intact, nares are clear, there is no conjunctival pallor. Throat is clear without any exudates, erythema, tonsillar enlargement or uvular deviation HEART: Regular rate and rhythm without murmur, clicks, rubs. No carotid bruits, pulses are equal in upper and lower extremities LUNGS:Lungs breath sounds decreased bilaterally but maybe secondary to habitus, no wheezes, rales, crackles, chest moves symmetrically, mild tachypnea. ABD:bowel sounds normal, soft, non-tender, no guarding, rebound, rigidity, no masses noted, no hepatosplenomegaly :No CVA tenderness MSCL: Non-tender, no muscle atrophy, muscles strength 5/5 upper and lower extremities, full range of motion. NEURO:CN 2-12 intact, sensation normal Initial Vital Signs Initial Vital Signs: Vital Signs Temperature 98.3 F 10/24/23 11:44 Pulse Rate 85 10/24/23 11:44 Respiratory Rate 26 H 10/24/23 11:44 Blood Pressure 129/91 H 10/24/23 11:44 Pulse Oximetry 93 10/24/23 11:44 Oxygen Delivery Method Nasal Cannula 10/24/23 11:44 Oxygen Flow Rate 3 10/24/23 11:44 Course Orders Ordered: Heparin Sodium (Porcine) (Heparin 5,000 Unit/Ml Vial) 5,000 unit SUBCUT BID [facility] Last Admin: 10/24/23 21:44 Dose: 5,000 unit Documented By: Sodium Chloride (Normal Saline 0.9%) 1,000 mls @ 50 mls/hr IV CONT [facility] Last Admin: 10/24/23 16:10 Dose: 50 mls/hr Documented By: STAN Meropenem 2 gm/ Sodium (Chloride) 100 mls @ 200 mls/hr IV Q8H JAY JAY Last Admin: 10/25/23 01:36 Dose: 200 mls/hr Documented By: Infusion: 10/24/23 18:00 Dose: Infused Documented By: Admin: 10/24/23 17:30 Dose: 200 mls/hr Documented By: STAN Dextrose (D10w) 100 mls @ 1,200 mls/hr IV PRN PRN PRN Reason: Hypoglycemia Last Admin: 10/25/23 06:55 Dose: 1,200 mls/hr Documented By: Insulin Human Lispro (Insulin Lispro 100 Unit/Ml 3ml Vial) 0 unit SUBCUT Q6H [facility]; Protocol Naloxone HCl (Naloxone 0.4 Mg/Ml Vial) 0.2 mg IV Q2MIN PRN PRN Reason: Opiate Reversal Discontinued Medications Sodium Chloride (Normal Saline 0.9%) 1,000 mls @ 150 mls/hr IV CONT JAY JAY Last Infusion: 10/24/23 16:10 Dose: Infused Documented By: Infusion: 10/24/23 15:04 Dose: 999 mls/hr Documented By: Admin: 10/24/23 14:26 Dose: 150 mls/hr Documented By: JUAN Piperacillin Sod/Tazobactam (Sod 4.5 gm/ Sodium Chloride) 100 mls @ 200 mls/hr IV NOW ONE Stop: 10/24/23 14:07 Last Infusion: 10/24/23 15:00 Dose: Infused Documented By: Admin: 10/24/23 14:21 Dose: 200 mls/hr Documented By: JUAN Vancomycin HCl/Dextrose (Vancomycin) 1,500 mg in 300 mls @ 200 mls/hr IV NOW ONE Stop: 10/24/23 15:35 Last Infusion: 10/24/23 16:55 Dose: Infused Documented By: Admin: 10/24/23 15:00 Dose: 200 mls/hr Documented By: JUAN Sodium Chloride (Normal Saline 0.9%) 500 mls @ 1,000 mls/hr IV BOLUS ONE Stop: 10/24/23 15:58 Last Infusion: 10/24/23 15:42 Dose: Infused Documented By: Admin: 10/24/23 15:15 Dose: 1,000 mls/hr Documented By: JUAN Vital Signs Vital signs: Vital Signs - 8 hr 10/24/23 11:44 10/24/23 11:49 10/24/23 11:54 Temperature 98.3 F Pulse Rate 85 Respiratory Rate 26 H Blood Pressure 129/91 H 129/91 H Pulse Oximetry 93 86 L Oxygen Delivery Method Nasal Cannula Room Air Oxygen Flow Rate 3 Fraction of Inspired Oxygen 10/24/23 11:54 10/24/23 11:58 10/24/23 11:58 Temperature Pulse Rate 85 82 Respiratory Rate 40 H 41 H Blood Pressure 126/92 H Pulse Oximetry 94 93 Oxygen Delivery Method Nasal Cannula Oxygen Flow Rate 3 Fraction of Inspired Oxygen 10/24/23 12:00 10/24/23 12:00 10/24/23 12:17 Temperature Pulse Rate 82 82 Respiratory Rate 31 H 28 H Blood Pressure 128/93 H Pulse Oximetry 94 98 Oxygen Delivery Method Oxygen Flow Rate Fraction of Inspired Oxygen 10/24/23 12:17 10/24/23 12:30 10/24/23 13:06 Temperature Pulse Rate 78 83 Respiratory Rate 48 H 47 H Blood Pressure 138/73 Pulse Oximetry 97 76 L Oxygen Delivery Method BiPAP BiPAP Oxygen Flow Rate Fraction of Inspired Oxygen 10/24/23 13:11 10/24/23 13:11 10/24/23 13:13 Temperature Pulse Rate 79 78 Respiratory Rate 26 H 26 H Blood Pressure 132/88 Pulse Oximetry 97 98 Oxygen Delivery Method BiPAP Oxygen Flow Rate Fraction of Inspired Oxygen 10/24/23 13:13 10/24/23 13:20 10/24/23 13:20 Temperature Pulse Rate 77 Respiratory Rate 29 H Blood Pressure 125/80 121/77 Pulse Oximetry 98 Oxygen Delivery Method Oxygen Flow Rate Fraction of Inspired Oxygen 10/24/23 13:30 10/24/23 13:30 10/24/23 13:34 Temperature Pulse Rate 74 Respiratory Rate 29 H Blood Pressure 112/72 132/88 Pulse Oximetry 98 Oxygen Delivery Method BiPAP Oxygen Flow Rate Fraction of Inspired Oxygen 20 10/24/23 13:40 10/24/23 13:40 Temperature Pulse Rate 79 Respiratory Rate 32 H Blood Pressure 119/71 Pulse Oximetry 97 Oxygen Delivery Method BiPAP Oxygen Flow Rate Fraction of Inspired Oxygen Medical Decision Making Lab Data 10/25/23 04:40 10/25/23 04:40 Labs: Lab Results 10/24/23 10/24/23 10/24/23 Range/Units 12:26 12:28 13:53 WBC 15.6 H (4.5-11.0) X10^3/uL RBC 3.99 L (4.0-5.2) X10^6/uL Hgb 12.7 (12.0-16.0) g/dL Hct 40.4 (36-46) % MCV 101.1 H (80-100) fL MCH 31.9 (26-34) PG MCHC 31.5 (30-36) % RDW 16.5 H (11.6-14.8) % Plt Count 227 (150-400) X10^3/uL Neut % (Auto) 90.1 H (50-75) % Lymph % (Auto) 6.8 L (25-40) % [place] % (Auto) 2.6 L (3-14) % Eos % (Auto) 0.2 L (2-4) % Baso % (Auto) 0.3 (0-2) % Neut # (Auto) 72777 H (4579-9252) /uL Lymph # (Auto) 1100 (5353-7495) /uL [place] # (Auto) 400 (0-900) /uL Eos # (Auto) 0 (0-450) /uL Baso # (Auto) 0 (0-100) /uL PT 11.6 (9.4-12.5) SECONDS INR 1.0 (0.9-1.3) APTT 35 (25.1-36.5) SECONDS ABG Sample Site Left radial ABG pH 7.21 L* (7.35-7.45) ABG pCO2 102.6 H* (35-45) mmHg ABG pO2 84 (80-100) mmHg ABG HCO3 41 H (23-27) mmol/L ABG Total CO2 44 H (23-27) mmol/L ABG O2 Saturation 93 L (95-100) % ABG Base Excess 8.3 H (-2-3) mmol/L Ramon Test Yes, passed Respiration Rate 15 O2 Delivery Device Cannula FiO2 % 32 % Sodium 142 (137-145) mmol/L Potassium 4.9 (3.4-5.1) mmol/L Chloride 101 (98-107) mmol/L Carbon Dioxide 39 H (22-32) mmol/L BUN 49 H (7-17) mg/dL Creatinine 1.40 H (0.52-1.04) mg/dL Estimated GFR 43 L (>60) mL/min BUN/Creatinine Ratio 35.0 H (6-22) Glucose 151 H (80-110) mg/dL Lactate 0.7 (0.7-2.1) mmol/L Calcium 10.5 H (8.4-10.2) mg/dL Total Bilirubin 0.6 (0.2-1.3) mg/dL AST 30 (14-36) IU/L ALT 17 (<35) IU/L Alkaline Phosphatase 42 (38-126) U/L Total Creatine Kinase 44 (30-135) U/L Troponin I 0.085 H (0.01-0.034) ng/mL NT-Pro-B Natriuret Pep 36587 H (<125) pg/mL Total Protein 6.9 (6.3-8.2) g/dL Albumin 4.0 (3.5-5.0) g/dL Globulin 2.9 (1.7-4.1) g/dL Albumin/Globulin Ratio 1.4 (1.0-2.8) Procalcitonin 0.137 (<0.5) ng/mL TSH 0.130 L (0.47-4.68) uIU/mL Prolactin 19.3 H (3.0-18.6) ng/mL Urine Color Yellow Urine Appearance Clear Urine pH 6.0 (4.5-8.0) Ur Specific [place] 1.020 (1.000-1.035) Urine Protein 1+ H (Negative) Urine Glucose (UA) Trace H (Negative) g/dL Urine Ketones Negative (NEGATIVE) Urine Occult Blood Negative (Negative) Urine Nitrate Negative (Negative) Urine Bilirubin Negative (NEGATIVE) Urine Urobilinogen 0.2 (0.2) E.U./dL Ur Leukocyte Esterase Negative (NEGATIVE) Urine RBC None seen (0-5/HPF) Urine WBC 0-1/hpf (0-5/HPF) Ur Squamous Epith Cells 5-10 /hpf H (0-5/HPF) Urine Bacteria Occasional (0-1) (None) Hyaline Casts 1-5/lpf (None) Ur Culture Indicated? Phlebotomy Director Vol Urine Centrifuged 10ml (spun) U Opiates 300ng/mL cut Negative (Negative) Ur Oxycodone Screen Negative (Negative) Urine Methadone Screen Negative (Negative) Ur Barbiturates Screen Negative (Negative) U Tricyclic Antidepress Negative (Negative) Ur Phencyclidine Scrn Negative (Negative) Ur Amphetamines Screen Negative (Negative) U Methamphetamines Scrn Negative (Negative) Ur MDMA Scrn (Ecstasy) Negative (Negative) U Benzodiazepines Scrn Negative (Negative) Urine Cocaine Screen Negative (Negative) U Marijuana (THC) Screen Negative (Negative) Urine Specific [place] (Normal) Ethyl Alcohol < 10 ( - 10) mg/dL Ur Creatinine (Normal) 10/24/23 Range/Units 13:53 WBC (4.5-11.0) X10^3/uL RBC (4.0-5.2) X10^6/uL Hgb (12.0-16.0) g/dL Hct (36-46) % MCV (80-100) fL MCH (26-34) PG MCHC (30-36) % RDW (11.6-14.8) % Plt Count (150-400) X10^3/uL Neut % (Auto) (50-75) % Lymph % (Auto) (25-40) % [place] % (Auto) (3-14) % Eos % (Auto) (2-4) % Baso % (Auto) (0-2) % Neut # (Auto) (8014-8056) /uL Lymph # (Auto) (4375-0808) /uL [place] # (Auto) (0-900) /uL Eos # (Auto) (0-450) /uL Baso # (Auto) (0-100) /uL PT (9.4-12.5) SECONDS INR (0.9-1.3) APTT (25.1-36.5) SECONDS ABG Sample Site ABG pH (7.35-7.45) ABG pCO2 (35-45) mmHg ABG pO2 (80-100) mmHg ABG HCO3 (23-27) mmol/L ABG Total CO2 (23-27) mmol/L ABG O2 Saturation (95-100) % ABG Base Excess (-2-3) mmol/L Ramon Test Respiration Rate O2 Delivery Device FiO2 % % Sodium (137-145) mmol/L Potassium (3.4-5.1) mmol/L Chloride (98-107) mmol/L Carbon Dioxide (22-32) mmol/L BUN (7-17) mg/dL Creatinine (0.52-1.04) mg/dL Estimated GFR (>60) mL/min BUN/Creatinine Ratio (6-22) Glucose (80-110) mg/dL Lactate (0.7-2.1) mmol/L Calcium (8.4-10.2) mg/dL Total Bilirubin (0.2-1.3) mg/dL AST (14-36) IU/L ALT (<35) IU/L Alkaline Phosphatase (38-126) U/L Total Creatine Kinase (30-135) U/L Troponin I (0.01-0.034) ng/mL NT-Pro-B Natriuret Pep (<125) pg/mL Total Protein (6.3-8.2) g/dL Albumin (3.5-5.0) g/dL Globulin (1.7-4.1) g/dL Albumin/Globulin Ratio (1.0-2.8) Procalcitonin (<0.5) ng/mL TSH (0.47-4.68) uIU/mL Prolactin (3.0-18.6) ng/mL Urine Color Urine Appearance Urine pH Normal (4.5-8.0) Ur Specific [place] (1.000-1.035) Urine Protein (Negative) Urine Glucose (UA) (Negative) g/dL Urine Ketones (NEGATIVE) Urine Occult Blood (Negative) Urine Nitrate (Negative) Urine Bilirubin (NEGATIVE) Urine Urobilinogen (0.2) E.U./dL Ur Leukocyte Esterase (NEGATIVE) Urine RBC (0-5/HPF) Urine WBC (0-5/HPF) Ur Squamous Epith Cells (0-5/HPF) Urine Bacteria (None) Hyaline Casts (None) Ur Culture Indicated? Vol Urine Centrifuged U Opiates 300ng/mL cut (Negative) Ur Oxycodone Screen (Negative) Urine Methadone Screen (Negative) Ur Barbiturates Screen (Negative) U Tricyclic Antidepress (Negative) Ur Phencyclidine Scrn (Negative) Ur Amphetamines Screen (Negative) U Methamphetamines Scrn (Negative) Ur MDMA Scrn (Ecstasy) (Negative) U Benzodiazepines Scrn (Negative) Urine Cocaine Screen (Negative) U Marijuana (THC) Screen (Negative) Urine Specific [place] Normal (Normal) Ethyl Alcohol ( - 10) mg/dL Ur Creatinine Normal (Normal) Point of Care Testing Glucose POC 98 Point of care testing: Point of Care Testing Glucose POC [address] scan - head: Radiologist's Impression: Close Head CT (Signed) Neville Chase - 10/24/23 Chest X-Ray (Signed) Leanna Ferrari - 10/24/23 Telemetry Strips 08/02/23 Chest X-Ray (Signed) Nelson Beltran - 08/02/23 Chest/Abdomen/Pelvis CT (Signed) Ronald So - 07/02/23 Chest X-Ray (Signed) Cate Gooden - 06/30/23 Chest X-Ray (Signed) Hadley Brunner - 06/30/23 Chest X-Ray (Signed) Chandler Fung - 06/27/23 Telemetry Strips 06/27/23 Chest X-Ray (Signed) Kaykay Beckman - 06/27/23 Chest X-Ray (Signed) Kaykay Beckman - 06/27/23 Telemetry Strips 05/21/23 Chest X-Ray (Signed) Jignesh Pool - 05/20/23 Chest X-Ray (Signed) Chandler Fung - 01/23/23 Chest X-Ray (Signed) Leanna Ferrari - 01/21/23 Echocardiogram Ultrasound (Signed) Romero Richmond - 01/19/23 Telemetry Strips 01/19/23 Chest/Abdomen/Pelvis CT (Cancelled) 01/19/23 Abdomen/Pelvis CT (Signed) Nahid Sellers - 01/19/23 Transvaginal Ultrasound (Cancelled) 01/19/23 Pelvis Ultrasound (Signed) Jignesh Pool - 01/19/[address] (Signed) Nahid Sellers - 01/19/23 Abdomen/Pelvis CT (Signed) Cate Gooden - 01/09/[address] (Signed) Tono Jane - 01/07/23 Telemetry Strips 01/05/23 Chest X-Ray (Signed) RoscJarett garzon - 01/05/[address] (Signed) Jarett Tse - 01/05/23 Telemetry Strips 09/18/22 Chest X-Ray (Signed) RoscduranJarett - 09/18/22 Chest X-Ray (Signed) Hadley Brunner - 08/19/22 Chest X-Ray (Signed) Dylan Mccloud - 08/18/22 Chest X-Ray (Signed) Kaykay Beckman - 08/18/22 Abdomen Ultrasound (Signed) Kris Scott - 08/18/22 Chest X-Ray (Signed) Dylan Mccloud - 08/17/22 Abdomen Ultrasound (Signed) Zuly Anderson - 08/17/22 Chest X-Ray (Signed) Cate Gooden - 08/17/22 Chest X-Ray (Signed) Kiviat,Zuly - 08/16/22 Chest X-Ray (Signed) Monica,Zuly - 08/16/22 Telemetry Strips 08/15/22 Abdomen/Pelvis CT (Signed) Jignesh Pool - 08/15/22 Chest X-Ray (Signed) Britney Atkins - 08/15/22 Chest X-Ray (Signed) Wilbert,Britney - 08/15/22 Chest X-Ray (Signed) Britney Atkins - 07/28/22 Radiology Report (Cancelled) Prakash Mckeon - 07/06/22 Myocardial Perfusion Scan Nuc Med (Signed) Prakash Mckeon - 07/06/22 Abdomen Ultrasound (Signed) Kris Scott - 05/26/22 Chest X-Ray (Signed) Cate Gooden - 05/26/22 Chest X-Ray (Signed) KannanHadley - 05/26/22 Echocardiogram Ultrasound (Signed) Prakash Mckeon - 05/25/22 Telemetry Strips 05/25/22 Telemetry Strips 05/25/22 Chest X-Ray (Signed) BerkleyBrannon katecarmela - 05/25/22 Chest CTA (Signed) KannanConcord - 05/25/22 Abdomen/Pelvis CT (Signed) Hadley Brunner - 05/25/[address] (Signed) Hadley Brunner - 05/25/22 Chest X-Ray (Signed) KannanHadley - 05/25/22 Launch?[place] [address] CT Scan Report Signed Patient: Mary Carmen Jett MR#: [id number] : 1960 Acct:[id number] Age/Sex: 63 / F Date of Service: 10/24/23 Loc: ED Accession Number: [id number] Procedure: CT head/brain wo con Ordering Provider: Jayne Muhammad D.O. PROCEDURE: CT HEAD/BRAIN WO CON INDICATIONS: altered mental status TECHNIQUE: Noncontrast 4.5 mm thick angled axial sections acquired from the foramen magnum to the vertex, with coronal and sagittal reformats. For radiation dose reduction, the following was used: automated exposure control, adjustment of mA and/or kV according to patient size. COMPARISON: [facility], CT, CT HEAD/BRAIN WO CON, 01/05/2023, 12:14. FINDINGS: Image quality: Diagnostic. CSF spaces: Basal cisterns are patent. No extra-axial fluid collections. Redemonstration of ventriculomegaly which is overall similar in appearance compared to prior. Brain: No midline shift. No intracranial masses or hemorrhage. Burns-white matter interface is normal. Skull and face: Calvarium and visualized facial bones are intact, without suspicious lesions. Sinuses: Visualized sinuses and mastoids are clear. IMPRESSION: Similar appearance of intracuticular compared to prior. Otherwise, no acute intracranial abnormalities. Dictated by: Neville Chase M.D. on 10/24/2023 at 13:24 Approved by: Neville Chase M.D. on 10/24/2023 at 13:26 Chest x-ray: Radiologist's Impression: [address] [address] XRay Report Signed Patient: Mary Carmen Jett MR#: [id number] : 1960 Acct:[id number] Age/Sex: 63 / F Date of Service: 10/24/23 Loc: ED Accession Number: [id number] Procedure: XR chest 1V Ordering Provider: Jayne Muhammad D.O. PROCEDURE: XR CHEST 1V INDICATIONS: altered mental status TECHNIQUE: One view of the chest was acquired. COMPARISON: [facility], , XR CHEST 1V, 08/02/2023, 17:17. FINDINGS: Surgical changes and devices: None. Lungs and pleura: Small left pleural effusion. Moderate left basilar airspace opacity. Mediastinum: Mediastinal contours appear normal. Heart size is enlarged. Bones and chest wall: No suspicious bony lesions. Overlying soft tissues appear unremarkable. IMPRESSION: 1. Left basilar pneumonia with small parapneumonic effusion. Continued plain film surveillance is recommended to ensure resolution, and to exclude underlying or central malignancy. 2. Cardiomegaly. Dictated by: Leanna Ferrari M.D. on 10/24/2023 at 13:35 Approved by: Leanna Ferrari M.D. on 10/24/2023 at 13:36 ECG Data Attestation: I personally reviewed and interpreted this ECG as follows: Prior ECG tracings: available for review Interpretation: Sinus rhythm occasional PVCs rate of 77 WI 172 QRS of 134 QTC 452. EKG today appears similar to priors, most recent prior had AFib RVR but prior to that similar ST segments. MDM Narrative Medical decision making narrative: 63-year-old female altered mental status was found to be hypoglycemic in the 50s received D10 did have some improvement here into the 110s but still altered. Reported to be somewhat somnolent even before prior she had her glucose checked at 1:09 a.m. facility this morning and received insulin. She has a history of hypercapnic respiratory failure as well and has been noted that her CPAP is broken and she has awaiting a sleep study to have it replaced his insurance will not replace it until this has been performed. Labs patient has a white count of 15 hemoglobin of 12 platelets of 227. INR is 1. Electrolytes are overall appropriate CO2 is 39 BUN 49 creatinine 1.4 consistent with priors calcium is 10.5. Troponin is 0.085. Likely demand. She has been elevated similar range in the past. BNP is 14,500 has been higher but was given dose of Lasix. TSH is 0.130, prolactin was 19. etoh is negative. EKG sinus rhythm with PVCs. Chest x-ray cardiomegaly, parapneumonic effusion left similar to prior. Head CT no acute change ABG pH of 7.21, pCO2 of 102, PO2 84, bicarb of 41. Patient has been in his range before has required BiPAP. She is somewhat somnolent but I felt appropriate for BiPAP at this time. Patient had repeat glucose is 110 we will continue to monitor. Patient has gentle fluids. Patient's glucose continuing to be monitored, patient was started on BiPAP is in acute hypercapnic respiratory failure. Suspect patient's hypoglycemic episode was due to the fact that she was altered received her regular insulin this morning but was not able to go get breakfast. Spoke with Dr. Howard, hospitalist accepts for ICU. Patient on BiPAP has traditionally improved with time. Plan for ICU for close monitoring. Patient's glucose is continued to be appropriate most recent was 112. Likely has a little bit of demand ischemia troponin leak. Was covered with antibiotics as she has a little bit of a white count, has what appears to be chronic effusion on the left side. Critical Care Time Critical Care Time Critical Care Time: Yes Total Critical Care Time: 45 Attestation: The high probability of a clinically significant, sudden or life threatening deterioration of the cardiac and pulmonary system(s) required my full and direct attention, intervention and personal management. The aggregate critical care time was [--] minutes. This time is in addition to time spent performing reported procedures but includes the following: [x] Data Review and interpretation [x] Patient assessment and monitoring of vital signs [x] Documentation [x] Medication orders and management Discharge Plan Departure Patient Disposition: Admitted As Inpatient Clinical Impression: Acute hypercapnic respiratory failure, Hypoglycemia, Pleural effusion Admit Date/Time: 10/24/23 14:21 Admit Provider: Ramon Howard
[2023-10-24 12:46] LABS: Add Manual Diff / Slide Review NO; Basophils Absolute Auto 0 /uL (0-100); Basophils Percent Auto 0.3 % (0-2); Eosinophils Absolute Auto 0 /uL (0-450); Eosinophils Percent Auto 0.2 % (2-4); Hematocrit 40.4 % (36-46); Hemoglobin 12.7 g/dL (12.0-16.0); Lymphocytes Absolute Auto 1100 /uL (1100-4500); Lymphocytes Percent Auto 6.8 % (25-40); Mean Corpuscular HGB Conc 31.5 % (30-36); Mean Corpuscular Hemoglobin 31.9 PG (26-34); Mean Corpuscular Volume 101.1 fL (80-100); Monocytes Absolute Auto 400 /uL (0-900); Monocytes Percent Auto 2.6 % (3-14); Neutrophils Absolute Auto 14000 /uL (1500-7000); Neutrophils Percent Auto 90.1 % (50-75); Platelet Count 227 X10^3/uL (150-400); Red Blood Cell Count 3.99 X10^6/uL (4.0-5.2); Red Cell Distribution Width 16.5 % (11.6-14.8); White Blood Cell Count 15.6 X10^3/uL (4.5-11.0)
[2023-10-24 12:56] LABS: Prothrombin Time 11.6 SECONDS (9.4-12.5)
[2023-10-24 12:59] LABS: PTT Partial Thromboplastin Tim 35 SECONDS (25.1-36.5)
[2023-10-24 13:09] LABS: Creatine Kinase 44 U/L (30-135)
[2023-10-24 13:10] LABS: Lactate (Lactic Acid) 0.7 mmol/L (0.7-2.1)
[2023-10-24 13:11] LABS: Alanine Aminotransferase 17 IU/L (<35); Albumin Globulin Ratio 1.4 (1.0-2.8); Alkaline Phosphatase 42 U/L (38-126); Aspartate Aminotransferase 30 IU/L (14-36); Bilirubin Total 0.6 mg/dL (0.2-1.3); Blood Urea Nitrogen 49 mg/dL (7-17); Calcium 10.5 mg/dL (8.4-10.2); Carbon Dioxide 39 mmol/L (22-32); Chloride 101 mmol/L (98-107); Estimated Glomerular Filt Rate 43 mL/min (>60); Ethanol (ETOH) < 10 mg/dL; Globulin 2.9 g/dL (1.7-4.1); Glucose 151 mg/dL (80-110); HEMOLYSIS < 15 (0-50); Potassium 4.9 mmol/L (3.4-5.1); Sodium 142 mmol/L (137-145); Total Protein 6.9 g/dL (6.3-8.2)
[2023-10-24 13:20] LABS: NT-proBNP (BNP-Adult 18+) 14500 pg/mL (<125)
[2023-10-24 13:23] LABS: Troponin I 0.085 ng/mL (0.01-0.034)
[2023-10-24 13:27] LABS: Procalcitonin 0.137 ng/mL (<0.5)
[2023-10-24 13:28] LABS: pH ABG 7.21 (7.35-7.45)
[2023-10-24 13:28] LABS: Prolactin 19.3 ng/mL (3.0-18.6)
[2023-10-24 13:29] LABS: PCO2 ABG 102.6 mmHg (35-45); PO2 ABG 84 mmHg (80-100)
[2023-10-24 13:30] LABS: Base Excess ABG 8.3 mmol/L (-2-3); Delivery System Cannula; Fractionated Inspired Oxygen 32 %; HCO3 ABG 41 mmol/L (23-27); Oxygen Saturation ABG 93 % (95-100); TCO2 ABG 44 mmol/L (23-27)
[2023-10-24 13:31] LABS: Allen Test for ABG Passed? Yes, Passed; Blood Gas Collection Site Left Radial; Respiratory Rate 15
--- NOTE | 2023-10-24 13:42 | EKG_ITS ---
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
[2023-10-24 14:12] LABS: UR Morphine/Opiate cutoff 300 Negative (Negative); Ur Creatinine Normal (Normal); Ur Specific Gravity Normal (Normal); Urine Amphetamines Negative (Negative); Urine Barbiturates Negative (Negative); Urine Benzodiazepines Negative (Negative); Urine Cocaine Negative (Negative); Urine MDMA Negative (Negative); Urine Methadone Negative (Negative); Urine Methamphetamines Negative (Negative); Urine Oxycodone Negative (Negative); Urine Phencyclidine Negative (Negative); Urine Tetrahydrocannabinol Negative (Negative); Urine Tricyclic Antidepressant Negative (Negative); Urine pH Normal (Normal)
[2023-10-24] MEDS: PIPERACILLIN/TAZO 4.5 GM in SODIUM CHLORIDE 0.9% 100 ML IV (14:21)
[2023-10-24 14:22] LABS: Appearance Urine UA CLEAR; Bilirubin Urine UA NEGATIVE (NEGATIVE); Color Urine UA YELLOW; Glucose Urine UA TRACE g/dL (Negative); Ketones Urine UA NEGATIVE (NEGATIVE); Leukocyte Esterase Urine UA NEGATIVE (NEGATIVE); Nitrite Urine UA NEGATIVE (Negative); Occult Blood Urine UA NEGATIVE (Negative); Protein Urine UA 1+ (Negative); Urobilinogen Urine UA 0.2 E.U./dL (0.2)
[2023-10-24] MEDS: SODIUM CHLORIDE 0.9% 1,000 ML 150 ML IV (14:26)
[2023-10-24 14:40] LABS: Bacteria Urine Occasional (0-1); Hyaline Casts Urine 1-5/LPF; RBC Urine None Seen (0-5/HPF); Squamous Epithelial Cell Urine 5-10 /HPF (0-5/HPF); Urine Volume 10mL (spun); WBC Urine 0-1/HPF (0-5/HPF)
[2023-10-24] MEDS: VANCOMYCIN 1,500 MG/300 ML PIGGYBACK 200 MG IV (15:00)
[2023-10-24] MEDS: SODIUM CHLORIDE 0.9% 500 ML 1000 ML IV (15:15)
--- NOTE | 2023-10-24 15:20 | P.HP_ITS ---
History of Present Illness History of Present Illness Date Patient Seen: 10/24/23 Chief complaint: AMS Narrative: ED doctor: 63-year-old female with history of morbid obesity, PONCE, COPD on 2 L nasal cannula with multiple visits for hypercapnic respiratory failure, CHF, diabetes type 2 presents with altered mental status. Per EMS staff noted she was little bit more somnolent this morning last normal possibly last night. Glucose was 109 this morning she had her regular insulin was told to go get breakfast but did not eat and was found to be significantly altered with a glucose in the 50s with EMS. Patient received D10 glucose improved to the 110 range but she can track open her eyes but otherwise not conversant. Also has a history of OPNCE and COPD her CPAP broke and she has been without it because insurance will not replace it without another sleep study she has been scheduled to have her sleep study in the next month. Patient will open her eyes to verbal stimuli at sometimes, will open eyes to physical stimuli. Patient can tell me her name, denies pain. Does not answer any questions currently. ED Course: She was placed on BiPAP in the ED for a CO2 of 110. She initially was slow to respond with a 2nd gas. She was recently lost her BiPAP apparently due to coverage. She comes from group home facility. S: She was recently lost her BiPAP apparently due to coverage. She comes from group home facility. She has a history of respiratory failure and has been ventilated with BiPAP successfully in the past at this hospital. It did take several hours previously. She can provide no history given her mental status changes. [facility] Medical History PONCE (obstructive sleep apnea) Chronic hypoxemic respiratory failure COPD (chronic obstructive pulmonary disease) DM2 (diabetes mellitus, type 2) HTN (hypertension) Thyroiditis Systolic and diastolic CHF, chronic Obesity Surgical History S/P hernia surgery Family History Mother No pertinent past medical history Father No pertinent past medical history Social History household members: other Smoking Status: Former smoker alcohol intake: former Meds Home Medications and Allergies Home Medications Medication Instructions Recorded Confirmed Type acetaminophen 325 mg tablet 650 mg PO TID 05/25/22 10/24/23 History (Tylenol) aspirin 81 mg tablet,delayed 81 mg PO DAILY 05/25/22 10/24/23 History release budesonide-formoterol HFA 160 2 puff inhalation Q4H PRN Wheezing 05/25/22 10/24/23 History mcg-4.5 mcg/actuation aerosol inhaler bupropion HCl 150 mg tablet,12 hr 100 mg PO BEDTIME 05/25/22 10/24/23 History sustained-release carvedilol 3.125 mg tablet 3.125 mg PO BID 05/25/22 10/24/23 History cyanocobalamin (vitamin B-12) 500 500 mcg PO DAILY 05/25/22 10/24/23 History mcg tablet fenofibrate 160 mg tablet 160 mg PO DAILY 05/25/22 10/24/23 History fluoxetine 20 mg tablet 20 mg PO DAILY 05/25/22 10/24/23 History fluticasone propionate 50 2 spray intranasal DAILY 05/25/22 10/24/23 History mcg/actuation nasal spray,suspension gabapentin 300 mg capsule 300 mg PO BEDTIME 05/25/22 10/24/23 History insulin lispro 100 unit/mL See Protocol SUBCUT TIDWM 05/25/22 10/24/23 History subcutaneous solution (Humalog U-100 Insulin) loratadine 10 mg tablet 10 mg PO DAILY 05/25/22 10/24/23 History magnesium oxide 200 mg PO DAILY 05/25/22 10/24/23 History montelukast 10 mg tablet 10 mg PO DAILY 05/25/22 10/24/23 History nystatin 100,000 unit/gram topical 1 applic topical BID PRN Rash 05/25/22 10/24/23 History powder ondansetron 4 mg disintegrating 4 mg PO Q8H PRN Nausea 05/25/22 10/24/23 History tablet rosuvastatin 40 mg tablet 40 mg PO DAILY 05/25/22 10/24/23 History sennosides 8.6 mg tablet (senna) 17.2 mg PO BEDTIME 05/25/22 10/24/23 History tiotropium bromide 18 mcg capsule 1 cap inhalation DAILY 05/25/22 10/24/23 History with inhalation device (Spiriva with HandiHaler) trazodone 50 mg tablet 50 mg PO BEDTIME 05/25/22 10/24/23 History albuterol sulfate 90 mcg/actuation 4 puff inhalation Q4H PRN 08/15/22 10/24/23 History aerosol inhaler Shortness Of Breath Or Wheezing levothyroxine 175 mcg tablet 175 mcg PO DAILY 08/15/22 10/24/23 History potassium chloride 10 mEq 20 meq PO DAILY 08/15/22 10/24/23 History tablet,extended release midodrine 5 mg tablet 10 mg PO BID 05/20/23 10/24/23 History torsemide 10 mg tablet 20 mg PO BEDTIME 05/20/23 10/24/23 History albuterol sulfate 2.5 mg/3 mL 2.5 mg inhalation Q6H PRN 10/24/23 10/24/23 History (0.083 %) solution for nebulization wheezing/cough bisacodyl 10 mg rectal suppository 10 mg MS DAILY PRN Constipation 10/24/23 10/24/23 History bisacodyl 5 mg tablet 5 mg PO BEDTIME PRN Constipation 10/24/23 10/24/23 History docusate sodium 100 mg capsule 200 mg PO BID 10/24/23 10/24/23 History fluconazole 200 mg tablet 200 mg PO DAILY 10/24/23 10/24/23 History insulin detemir U-100 100 unit/mL 25 unit SUBCUT BID 10/24/23 10/24/23 History (3 mL) subcutaneous pen (Levemir FlexPen) insulin lispro 100 unit/mL 6 unit SUBCUT AC 10/24/23 10/24/23 History subcutaneous pen ipratropium 0.5 mg-albuterol 3 mg 3 ml inhalation Q4H PRN COPD 10/24/23 10/24/23 History (2.5 mg base)/3 mL nebulization soln polyethylene glycol 3350 17 gram 17 g PO DAILY 10/24/23 10/24/23 History oral powder packet (Miralax) prednisone 20 mg tablet 30 mg PO DAILY 10/24/23 10/24/23 History Allergies Allergy/AdvReac Type Severity Reaction Status Date / Time No Known Drug Allergies Allergy Verified 10/24/23 11:56 Review of Systems Review of Systems Narrative: Review of systems not obtainable due to her mental status. Exam Vital Signs (past 8 hours): - 10/24/23 11:44 10/24/23 11:49 10/24/23 11:54 Temperature 98.3 F Pulse Rate 85 Respiratory Rate 26 H Blood Pressure 129/91 H 129/91 H Pulse Oximetry 93 86 L Oxygen Delivery Method Nasal Cannula Room Air Oxygen Flow Rate 3 Fraction of Inspired Oxygen 10/24/23 11:54 10/24/23 11:58 10/24/23 11:58 Temperature Pulse Rate 85 82 Respiratory Rate 40 H 41 H Blood Pressure 126/92 H Pulse Oximetry 94 93 Oxygen Delivery Method Nasal Cannula Oxygen Flow Rate 3 Fraction of Inspired Oxygen 10/24/23 12:00 10/24/23 12:00 10/24/23 12:17 Temperature Pulse Rate 82 82 Respiratory Rate 31 H 28 H Blood Pressure 128/93 H Pulse Oximetry 94 98 Oxygen Delivery Method Oxygen Flow Rate Fraction of Inspired Oxygen 10/24/23 12:17 10/24/23 12:30 10/24/23 13:06 Temperature Pulse Rate 78 83 Respiratory Rate 48 H 47 H Blood Pressure 138/73 Pulse Oximetry 97 76 L Oxygen Delivery Method BiPAP BiPAP Oxygen Flow Rate Fraction of Inspired Oxygen 10/24/23 13:11 10/24/23 13:11 10/24/23 13:13 Temperature Pulse Rate 79 78 Respiratory Rate 26 H 26 H Blood Pressure 132/88 Pulse Oximetry 97 98 Oxygen Delivery Method BiPAP Oxygen Flow Rate Fraction of Inspired Oxygen 10/24/23 13:13 10/24/23 13:20 10/24/23 13:20 Temperature Pulse Rate 77 Respiratory Rate 29 H Blood Pressure 125/80 121/77 Pulse Oximetry 98 Oxygen Delivery Method Oxygen Flow Rate Fraction of Inspired Oxygen 10/24/23 13:30 10/24/23 13:30 10/24/23 13:34 Temperature Pulse Rate 74 Respiratory Rate 29 H Blood Pressure 112/72 132/88 Pulse Oximetry 98 Oxygen Delivery Method BiPAP Oxygen Flow Rate Fraction of Inspired Oxygen 60 10/24/23 13:40 10/24/23 13:40 10/24/23 13:51 Temperature Pulse Rate 79 76 Respiratory Rate 32 H 30 H Blood Pressure 119/71 Pulse Oximetry 97 97 Oxygen Delivery Method BiPAP Oxygen Flow Rate Fraction of Inspired Oxygen 10/24/23 13:51 10/24/23 14:00 10/24/23 14:00 Temperature Pulse Rate 72 Respiratory Rate 35 H Blood Pressure 135/82 108/53 L Pulse Oximetry 98 Oxygen Delivery Method Oxygen Flow Rate Fraction of Inspired Oxygen 10/24/23 14:10 10/24/23 14:10 10/24/23 14:12 Temperature Pulse Rate 73 Respiratory Rate 24 Blood Pressure 99/58 L 99/58 L Pulse Oximetry 97 Oxygen Delivery Method Oxygen Flow Rate Fraction of Inspired Oxygen 65 10/24/23 14:20 10/24/23 14:20 10/24/23 14:30 Temperature Pulse Rate 72 Respiratory Rate 26 H Blood Pressure 101/61 102/58 L Pulse Oximetry 97 Oxygen Delivery Method Oxygen Flow Rate Fraction of Inspired Oxygen 10/24/23 14:30 10/24/23 14:40 10/24/23 14:40 Temperature Pulse Rate 72 72 Respiratory Rate 29 H 25 H Blood Pressure 94/54 L Pulse Oximetry 97 97 Oxygen Delivery Method Oxygen Flow Rate Fraction of Inspired Oxygen 10/24/23 15:00 10/24/23 15:00 10/24/23 15:10 Temperature Pulse Rate 71 Respiratory Rate 25 H Blood Pressure 99/64 100/65 Pulse Oximetry 96 Oxygen Delivery Method Oxygen Flow Rate Fraction of Inspired Oxygen 10/24/23 15:10 Temperature Pulse Rate 71 Respiratory Rate 24 Blood Pressure Pulse Oximetry 96 Oxygen Delivery Method Oxygen Flow Rate Fraction of Inspired Oxygen Fraction of Inspired Oxygen 65 Oxygen Delivery Method BiPAP Oxygen Flow Rate 3 Narrative Exam Narrative: NAD, somnolent on BiPAP. Obese. Normocephalic skull, anicteric sclera, symmetric pupils. Oropharynx unremarkable. Neck supple, midline trachea, no adenopathy. Lungs clear, normal rate and effort. Diminished sounds. Heart regular, no murmur gallop or rub. Abdomen is soft, distended and non-tender. Extremities are free of edema. Skin is free of rash or lesions. She has an early sacral ulcer. Joints are not swollen or deformed. Objective Imaging Multiple studies:: My impression: Sinus rhythm with occasional premature ventricular complexes and premature atrial complexes Right superior axis deviation Nonspecific intraventricular block Cannot rule out Anterior infarct , age undetermined Radiologist's impression: CT Brain: Redemonstration of ventriculomegaly which is overall similar in appearance compared to prior. Similar appearance of intracuticular compared to prior. Otherwise, no acute intracranial abnormalities. CXR: 1. Left basilar pneumonia with small parapneumonic effusion. Continued plain film surveillance is recommended to ensure resolution, and to exclude underlying or central malignancy. 2. Cardiomegaly. Labs 10/24/23 12:26 10/24/23 12:26 Labs: Laboratory Results - last 24 hr 10/24/23 10/24/23 10/24/23 12:26 12:28 13:53 WBC 15.6 H RBC 3.99 L Hgb 12.7 Hct 40.4 MCV 101.1 H MCH 31.9 MCHC 31.5 RDW 16.5 H Plt Count 227 Neut % (Auto) 90.1 H Lymph % (Auto) 6.8 L [place] % (Auto) 2.6 L Eos % (Auto) 0.2 L Baso % (Auto) 0.3 Neut # (Auto) 72052 H Lymph # (Auto) 1100 [place] # (Auto) 400 Eos # (Auto) 0 Baso # (Auto) 0 PT 11.6 INR 1.0 APTT 35 ABG Sample Site Left radial ABG pH 7.21 L* ABG pCO2 102.6 H* ABG pO2 84 ABG HCO3 41 H ABG Total CO2 44 H ABG O2 Saturation 93 L ABG Base Excess 8.3 H Ramon Test Yes, passed Respiration Rate 15 O2 Delivery Device Cannula FiO2 % 32 Sodium 142 Potassium 4.9 Chloride 101 Carbon Dioxide 39 H BUN 49 H Creatinine 1.40 H Estimated GFR 43 L BUN/Creatinine Ratio 35.0 H Glucose 151 H Lactate 0.7 Calcium 10.5 H Total Bilirubin 0.6 AST 30 ALT 17 Alkaline Phosphatase 42 Total Creatine Kinase 44 Troponin I 0.085 H NT-Pro-B Natriuret Pep 98234 H Total Protein 6.9 Albumin 4.0 Globulin 2.9 Albumin/Globulin Ratio 1.4 Procalcitonin 0.137 TSH 0.130 L Prolactin 19.3 H Urine Color Yellow Urine Appearance Clear Urine pH 6.0 Ur Specific [place] 1.020 Urine Protein 1+ H Urine Glucose (UA) Trace H Urine Ketones Negative Urine Occult Blood Negative Urine Nitrate Negative Urine Bilirubin Negative Urine Urobilinogen 0.2 Ur Leukocyte Esterase Negative Urine RBC None seen Urine WBC 0-1/hpf Ur Squamous Epith Cells 5-10 /hpf H Urine Bacteria Occasional (0-1) Hyaline Casts 1-5/lpf Ur Culture Indicated? Commercial Management Accountant Vol Urine Centrifuged 10ml (spun) U Opiates 300ng/mL cut Negative Ur Oxycodone Screen Negative Urine Methadone Screen Negative Ur Barbiturates Screen Negative U Tricyclic Antidepress Negative Ur Phencyclidine Scrn Negative Ur Amphetamines Screen Negative U Methamphetamines Scrn Negative Ur MDMA Scrn (Ecstasy) Negative U Benzodiazepines Scrn Negative Urine Cocaine Screen Negative U Marijuana (THC) Screen Negative Urine Specific [place] Ethyl Alcohol < 10 Ur Creatinine 10/24/23 13:53 WBC RBC Hgb Hct MCV MCH MCHC RDW Plt Count Neut % (Auto) Lymph % (Auto) [place] % (Auto) Eos % (Auto) Baso % (Auto) Neut # (Auto) Lymph # (Auto) [place] # (Auto) Eos # (Auto) Baso # (Auto) PT INR APTT ABG Sample Site ABG pH ABG pCO2 ABG pO2 ABG HCO3 ABG Total CO2 ABG O2 Saturation ABG Base Excess Ramon Test Respiration Rate O2 Delivery Device FiO2 % Sodium Potassium Chloride Carbon Dioxide BUN Creatinine Estimated GFR BUN/Creatinine Ratio Glucose Lactate Calcium Total Bilirubin AST ALT Alkaline Phosphatase Total Creatine Kinase Troponin I NT-Pro-B Natriuret Pep Total Protein Albumin Globulin Albumin/Globulin Ratio Procalcitonin TSH Prolactin Urine Color Urine Appearance Urine pH Normal Ur Specific [place] Urine Protein Urine Glucose (UA) Urine Ketones Urine Occult Blood Urine Nitrate Urine Bilirubin Urine Urobilinogen Ur Leukocyte Esterase Urine RBC Urine WBC Ur Squamous Epith Cells Urine Bacteria Hyaline Casts Ur Culture Indicated? Vol Urine Centrifuged U Opiates 300ng/mL cut Ur Oxycodone Screen Urine Methadone Screen Ur Barbiturates Screen U Tricyclic Antidepress Ur Phencyclidine Scrn Ur Amphetamines Screen U Methamphetamines Scrn Ur MDMA Scrn (Ecstasy) U Benzodiazepines Scrn Urine Cocaine Screen U Marijuana (THC) Screen Urine Specific [place] Normal Ethyl Alcohol Ur Creatinine Normal Assessment & Plan Assessment & Plan narrative: 1. Left lung pneumonia, present on admission and active. 2. Acute hypercarbic and hypoxic respiratory failure, present on admission and active. 3. Metabolic encephalopathy, present on admission and active. 4. COPD exacerbation, present on admission and active. 5. Chronic systolic heart failure with pulmonary edema, present on admission and active. 6. History of recurrent ESBL UTI. Unclear if active. 7. History of chronic hypoxic respiratory failure, present on admission and active. 8. DM 2, present on admission and active. 9. BLANCA on Chronic kidney disease with baseline creatinine 1.3, present on admission and active. 10. Paroxysmal atrial fibrillation, stable. PLAN: -BiPAP for several hours to improve hypercarbia. Wean off as able. -blood cultures, empiric antibiotics for pneumonia with meropenem given history of ESBL. -urine culture, rule out ESBL reinfection. -IV fluids to maintain map of over 65. -FiO2 to maintain SaO2 of over 90%. -correctional lispro insulin. Q.6 hr [facility], expected least 2 nights of hospital level care. Default to full resuscitation as per previous admissions. 45 minutes of critical care time spent with her acute respiratory failure pneumonia. Time-Based Coding :: 55 min spent with patient and on the chart (including review of chart, obtaining history, exam, reviewing outside data, placing orders, documenting exam and treatment plan, and counseling patient) on 10/23. This is critical care time as the patient has critical illness requiring positive pressure ventilation for respiratory failure, sepsis, and pneumonia. She was at high risk for adverse outcomes of her acute illness. Her risk of or morbidity he was very high. Quality MIPS - Admit I confirm the patient?s Advance Care Plan is present, Code status is documented, Surrogate decision maker is in patient?s record [If Yes, STOP here]: Yes MIPS - Meds 'Current medications' to include all prescriptions, [id number] products, herbals, cannabis/cannabidiol products, and vitamin/mineral/dietary (nutritional) supplements. I have utilized all available resources to obtain, update, or review the patient?s current medications. [If Yes, STOP here]: Yes
--- NOTE | 2023-10-24 15:43 | CM.IDA ---
Initial DCP Assessment Patient is 63 y/o female who presents to the ED via BLS due to concern for AMS, hypoglycemia, and SOB currenly requiring BiPAP in the ED. 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 The provider has ordered patient a new CPAP machine but insurance informed them of a patient's need for a new sleep study to authorize the new machine. Patient has upcoming Pulmonology appt through [facility] on 11/14/23. Patient's PCP is through [facility], patient Has [employer]/Medicaid insurance. Patient is a Full Code, POLST in file. Patient has hx of CHF, COPD on 2 L nasal cannula oxygen, and type 2 diabetes. Patient has hx of presentations due to concern for hypercapnic respiratory failure. Patient has been admitted by hospitalist due to concern for Acute Hypercapnic Respirartory failure, hypoglyemia and Pleural effusion. KEYBOARD SPECIALIST is unable to meet with patient while she is on BiPAP, Patient resides in [place] at [facility]. Previously patient has been A+Ox3 requiring 1-2 person assist and alf care. Patient has daughter listed in EMR. KEYBOARD SPECIALIST contacts Pulmonology to inquire if patient's sleep study could be moved to a sooner date due to patient's medical need for her CPAP machine, it is reported that the clinic does not have staffing availability until patient's scheduled appt. KEYBOARD SPECIALIST calls [facility] and explains patient situation, delay of sleep study and urgent need for new CPAP, it is reported that a new authorization will need to be submitted. KEYBOARD SPECIALIST speaks with [facility] care management (Ph. # [phone]) and informs them of patient's current situation as well and informs them that patient is being admitted to ICU and currently on BiPAP. KEYBOARD SPECIALIST speaks with [facility] Director of Cardiopulmonary regarding patient and patient's need for a new CPAP, it is reported that her RT team will request new CPAP DME for patient through [employer] and they will request authorization from [employer]. [place] informs RN at [facility] (Ph. # [phone]) of efforts made to get patient a new CPAP, move Pulmonology appt and of patient's admission to ICU. Plan: Patient requires further treatment and evaluation, RT to continue to assess patient and work on home equipment referral, patient may need BiPAP at home. Patient to return to residence at [facility] upon medical clearance. JESUS Jane Discharge Planning/Care Management CM Discharge Assessment Start: 10/24/23 15:04 Freq: Status: Active Protocol: Document 10/24/23 15:05 LN (Rec: 10/24/23 15:08 LN [id number]) Discharge Planning Assessment Assigned Size Tester JESUS Chang DPOA/Assigned Designee Name Roxy Berry, Daughter Contact Information Ph. # [phone] Advance Directives? No Advance Directives on File No: POLST on file - Full code History Provided By Medical Record Has Patient been admitted in last 30 No days? Prior Living Arrangements Skilled Nurse Facility Comment [facility] Household Members other Type of transporation used prior to Relies on Others admit Independent with ADL's No Is patient alert and oriented? No: Unknown, patient currently on Bipap Needs Assistance With Bathing,Grooming,Meal Prep, Toileting,Managing Medications ,Home Chores / Shopping Patient/Family Preference Nursing Home Facility Comment Will return to [facility] [place] [facility] care resident Discharge Plan Nursing Home Facility Transportation Arrangement Facility vs BLS Referrals Initiated None needed If patient plan is SNF: Has PASSR been PASRR not needed due to pt completed? being a [place] [facility] resident Please Provide Date Initial DC 10/24/23 Assessment Was Performed
[2023-10-24] MEDS: SODIUM CHLORIDE 0.9% 1,000 ML 50 ML IV (16:10)
[2023-10-24 16:21] LABS: Allen Test for ABG Passed? Positive; Blood Gas Collection Site Right Radial; Blood Gas Mode Bi-Level Ventilation; Delivery System BiPAP; Oxygen Saturation ABG 97 % (95-100); PEEP 6; Pressure Support 16
[2023-10-24 16:37] LABS: pH ABG 7.18 (7.35-7.45)
[2023-10-24 16:38] LABS: PCO2 ABG 110.8 mmHg (35-45)
[2023-10-24 16:39] LABS: PO2 ABG 118 mmHg (80-100)
[2023-10-24 16:40] LABS: Base Excess ABG 8.1 mmol/L (-2-3); HCO3 ABG 42 mmol/L (23-27); TCO2 ABG 44 mmol/L (23-27)
--- NOTE | 2023-10-24 16:56 | PC.NURSE ---
Patient brought up from ER to room 227. Patient on BIPAP with RT at bedside. 02 sat 94% at this time. Patient opens her eyes to sternal rub, lifts her eyebrows to voice at times. Bottom is excoriated with peeling skin, area of pressure injury noted (will assess further and take photo with next reposition). Dr. Howard to bedside to see patient. Continue to monitor.
[2023-10-24] MEDS: MEROPENEM 2 GM in SODIUM CHLORIDE 0.9% 100 ML IV (17:30)
[2023-10-24 18:45] LABS: Blood Gas Mode Bi-Level Ventilation; Delivery System BiPAP; HCO3 ABG 35 mmol/L (23-27); Oxygen Saturation ABG 98 % (95-100); PCO2 ABG 70.5 mmHg (35-45); PEEP 6; PO2 ABG 125 mmHg (80-100); Respiratory Rate 30; TCO2 ABG 36 mmol/L (23-27)
[2023-10-24 18:50] LABS: Allen Test for ABG Passed? Yes, Passed; Blood Gas Collection Site Right Radial
[2023-10-24 19:07] LABS: MRSA (Nasal) PCR DETECTED (Not Detect)
[2023-10-24] MEDS: HEPARIN 5,000 UNIT/ML VIAL 5000 UNIT SUBCUT (21:44)
[2023-10-25] VITALS (35 sets, daily range): BP systolic 94–150; BP diastolic 51–94; PULSE 65–89; RESP 20–37; TEMP 31–37.1; O2SAT 87–100
[2023-10-25] MEDS: MEROPENEM 2 GM in SODIUM CHLORIDE 0.9% 100 ML IV ×3 (01:36→17:20)
[2023-10-25 05:52] LABS: Add Manual Diff / Slide Review NO; Basophils Absolute Auto 0 /uL (0-100); Basophils Percent Auto 0.3 % (0-2); Eosinophils Absolute Auto 0 /uL (0-450); Eosinophils Percent Auto 0.4 % (2-4); Hematocrit 35.6 % (36-46); Hemoglobin 11.5 g/dL (12.0-16.0); Lymphocytes Absolute Auto 1200 /uL (1100-4500); Lymphocytes Percent Auto 13.1 % (25-40); Mean Corpuscular HGB Conc 32.4 % (30-36); Mean Corpuscular Hemoglobin 32.5 PG (26-34); Mean Corpuscular Volume 100.5 fL (80-100); Monocytes Absolute Auto 800 /uL (0-900); Monocytes Percent Auto 7.9 % (3-14); Neutrophils Absolute Auto 7500 /uL (1500-7000); Neutrophils Percent Auto 78.3 % (50-75); Platelet Count 184 X10^3/uL (150-400); Red Blood Cell Count 3.54 X10^6/uL (4.0-5.2); Red Cell Distribution Width 16.5 % (11.6-14.8); White Blood Cell Count 9.5 X10^3/uL (4.5-11.0)
[2023-10-25 06:00] LABS: Alanine Aminotransferase 18 IU/L (<35); Albumin 3.4 g/dL (3.5-5.0); Albumin Globulin Ratio 1.2 (1.0-2.8); Alkaline Phosphatase 31 U/L (38-126); Aspartate Aminotransferase 28 IU/L (14-36); BUN Creatinine Ratio 35.2 (6-22); Bilirubin Total 0.7 mg/dL (0.2-1.3); Blood Urea Nitrogen 44 mg/dL (7-17); Calcium 9.7 mg/dL (8.4-10.2); Carbon Dioxide 32 mmol/L (22-32); Chloride 107 mmol/L (98-107); Estimated Glomerular Filt Rate 49 mL/min (>60); Globulin 2.9 g/dL (1.7-4.1); Glucose 58 mg/dL (80-110); HEMOLYSIS 29 (0-50); Potassium 4.8 mmol/L (3.4-5.1); Sodium 144 mmol/L (137-145); Total Protein 6.3 g/dL (6.3-8.2)
--- NOTE | 2023-10-25 06:38 | RT ---
Pt remained on BiPAP, mode AVAPs all t/o the night and came off this AM at 0638. She is on 3L NC, tolerating well.
[2023-10-25] MEDS: DEXTROSE 10 % IN WATER 100 ML 1200 ML IV (06:55)
--- NOTE | 2023-10-25 07:18 | PC.WOUNDPHOT ---
Late Entry: Wound photo taken on day of admission. 09/22 at 1850.
--- NOTE | 2023-10-25 07:40 | PM.PN.1 ---
Subjective Subjective Interval history: Summary: She was admitted with hypercarbic respiratory failure and relative hypotension in context of her [facility]. Her initial CO2 was 110, she improved on BiPAP for approximately 8 hours. She denies recent cough. Blood pressures improved overnight. S: She feels back to normal, she denies cough, fevers, or chills. No abdominal pain, no recent diarrhea, no urinary symptoms including hematuria or dysuria. Exam Vital Signs (past 8 hours): - 10/25/23 00:00 10/25/23 00:00 10/25/23 00:50 Temperature 98.7 F Pulse Rate 65 Respiratory Rate 33 H Blood Pressure 100/54 L 100/54 L Pulse Oximetry 98 Oxygen Delivery Method Oxygen Flow Rate 4 Fraction of Inspired Oxygen 30 10/25/23 01:00 10/25/23 01:00 10/25/23 02:00 Temperature Pulse Rate 72 66 Respiratory Rate 32 H 37 H Blood Pressure 111/62 98/51 L Pulse Oximetry 98 97 Oxygen Delivery Method Oxygen Flow Rate 4 4 Fraction of Inspired Oxygen 10/25/23 03:00 10/25/23 03:00 10/25/23 04:00 Temperature 96.8 F L Pulse Rate 65 71 Respiratory Rate 33 H 32 H Blood Pressure 102/66 118/53 L Pulse Oximetry 97 98 Oxygen Delivery Method Oxygen Flow Rate 4 4 Fraction of Inspired Oxygen 10/25/23 04:46 10/25/23 05:00 10/25/23 05:00 Temperature Pulse Rate 77 Respiratory Rate 32 H Blood Pressure 118/65 Pulse Oximetry 96 Oxygen Delivery Method Oxygen Flow Rate Fraction of Inspired Oxygen 30 10/25/23 06:00 10/25/23 06:00 10/25/23 06:38 Temperature Pulse Rate 78 78 Respiratory Rate 32 H Blood Pressure 121/58 L Pulse Oximetry 97 97 Oxygen Delivery Method Nasal Cannula Oxygen Flow Rate 4 3 Fraction of Inspired Oxygen 32 Fraction of Inspired Oxygen 32 SaO2/FiO2 Ratio 303 Oxygen Delivery Method Nasal Cannula Oxygen Flow Rate 3 Narrative Exam Narrative: NAD, alert and oriented. Fluent speech. Lungs are clear, normal rate and effort. Heart is regular, no murmur gallop or rub. Abdomen is soft, non distended. Extremities are free of edema. Objective Labs 10/25/23 04:40 10/25/23 04:40 Labs: Laboratory Results - last 24 hr 10/24/23 10/24/23 10/24/23 12:26 12:28 13:53 WBC 15.6 H RBC 3.99 L Hgb 12.7 Hct 40.4 MCV 101.1 H MCH 31.9 MCHC 31.5 RDW 16.5 H Plt Count 227 Neut % (Auto) 90.1 H Lymph % (Auto) 6.8 L [place] % (Auto) 2.6 L Eos % (Auto) 0.2 L Baso % (Auto) 0.3 Neut # (Auto) 85292 H Lymph # (Auto) 1100 [place] # (Auto) 400 Eos # (Auto) 0 Baso # (Auto) 0 PT 11.6 INR 1.0 APTT 35 ABG Sample Site Left radial ABG pH 7.21 L* ABG pCO2 102.6 H* ABG pO2 84 ABG HCO3 41 H ABG Total CO2 44 H ABG O2 Saturation 93 L ABG Base Excess 8.3 H Ramon Test Yes, passed Respiration Rate 15 O2 Delivery Device Cannula Mode of Support FiO2 % 32 Pressure Support PEEP or CPAP Sodium 142 Potassium 4.9 Chloride 101 Carbon Dioxide 39 H BUN 49 H Creatinine 1.40 H Estimated GFR 43 L BUN/Creatinine Ratio 35.0 H Glucose 151 H Lactate 0.7 Calcium 10.5 H Total Bilirubin 0.6 AST 30 ALT 17 Alkaline Phosphatase 42 Total Creatine Kinase 44 Troponin I 0.085 H NT-Pro-B Natriuret Pep 18901 H Total Protein 6.9 Albumin 4.0 Globulin 2.9 Albumin/Globulin Ratio 1.4 Procalcitonin 0.137 TSH 0.130 L Prolactin 19.3 H Urine Color Yellow Urine Appearance Clear Urine pH 6.0 Ur Specific [place] 1.020 Urine Protein 1+ H Urine Glucose (UA) Trace H Urine Ketones Negative Urine Occult Blood Negative Urine Nitrate Negative Urine Bilirubin Negative Urine Urobilinogen 0.2 Ur Leukocyte Esterase Negative Urine RBC None seen Urine WBC 0-1/hpf Ur Squamous Epith Cells 5-10 /hpf H Urine Bacteria Occasional (0-1) Hyaline Casts 1-5/lpf Ur Culture Indicated? Ladies Suit Operator Vol Urine Centrifuged 10ml (spun) Nasal Screen MRSA (PCR) U Opiates 300ng/mL cut Negative Ur Oxycodone Screen Negative Urine Methadone Screen Negative Ur Barbiturates Screen Negative U Tricyclic Antidepress Negative Ur Phencyclidine Scrn Negative Ur Amphetamines Screen Negative U Methamphetamines Scrn Negative Ur MDMA Scrn (Ecstasy) Negative U Benzodiazepines Scrn Negative Urine Cocaine Screen Negative U Marijuana (THC) Screen Negative Urine Specific [place] Ethyl Alcohol < 10 Ur Creatinine 10/24/23 10/24/23 10/24/23 13:53 14:58 16:45 WBC RBC Hgb Hct MCV MCH MCHC RDW Plt Count Neut % (Auto) Lymph % (Auto) [place] % (Auto) Eos % (Auto) Baso % (Auto) Neut # (Auto) Lymph # (Auto) [place] # (Auto) Eos # (Auto) Baso # (Auto) PT INR APTT ABG Sample Site Right radial ABG pH 7.18 L* ABG pCO2 110.8 H* ABG pO2 118 H ABG HCO3 42 H ABG Total CO2 44 H ABG O2 Saturation 97 ABG Base Excess 8.1 H Ramon Test Positive Respiration Rate O2 Delivery Device Bipap Mode of Support Bi-level ventilation FiO2 % 65 % Pressure Support 16 PEEP or CPAP 6 Sodium Potassium Chloride Carbon Dioxide BUN Creatinine Estimated GFR BUN/Creatinine Ratio Glucose Lactate Calcium Total Bilirubin AST ALT Alkaline Phosphatase Total Creatine Kinase Troponin I NT-Pro-B Natriuret Pep Total Protein Albumin Globulin Albumin/Globulin Ratio Procalcitonin TSH Prolactin Urine Color Urine Appearance Urine pH Normal Ur Specific [place] Urine Protein Urine Glucose (UA) Urine Ketones Urine Occult Blood Urine Nitrate Urine Bilirubin Urine Urobilinogen Ur Leukocyte Esterase Urine RBC Urine WBC Ur Squamous Epith Cells Urine Bacteria Hyaline Casts Ur Culture Indicated? Vol Urine Centrifuged Nasal Screen MRSA (PCR) Detected H U Opiates 300ng/mL cut Ur Oxycodone Screen Urine Methadone Screen Ur Barbiturates Screen U Tricyclic Antidepress Ur Phencyclidine Scrn Ur Amphetamines Screen U Methamphetamines Scrn Ur MDMA Scrn (Ecstasy) U Benzodiazepines Scrn Urine Cocaine Screen U Marijuana (THC) Screen Urine Specific [place] Normal Ethyl Alcohol Ur Creatinine Normal 10/24/23 10/25/23 18:36 04:40 WBC 9.5 RBC 3.54 L Hgb 11.5 L Hct 35.6 L MCV 100.5 H MCH 32.5 MCHC 32.4 RDW 16.5 H Plt Count 184 Neut % (Auto) 78.3 H Lymph % (Auto) 13.1 L [place] % (Auto) 7.9 Eos % (Auto) 0.4 L Baso % (Auto) 0.3 Neut # (Auto) 7500 H Lymph # (Auto) 1200 [place] # (Auto) 800 Eos # (Auto) 0 Baso # (Auto) 0 PT INR APTT ABG Sample Site Right radial ABG pH 7.30 L ABG pCO2 70.5 H* ABG pO2 125 H ABG HCO3 35 H ABG Total CO2 36 H ABG O2 Saturation 98 ABG Base Excess 6.0 H Ramon Test Yes, passed Respiration Rate 30 O2 Delivery Device Bipap Mode of Support Bi-level ventilation FiO2 % 38.0 % Pressure Support PEEP or CPAP 6 Sodium 144 Potassium 4.8 Chloride 107 Carbon Dioxide 32 BUN 44 H Creatinine 1.25 H Estimated GFR 49 L BUN/Creatinine Ratio 35.2 H Glucose 58 L Lactate Calcium 9.7 Total Bilirubin 0.7 AST 28 ALT 18 Alkaline Phosphatase 31 L Total Creatine Kinase Troponin I NT-Pro-B Natriuret Pep Total Protein 6.3 Albumin 3.4 L Globulin 2.9 Albumin/Globulin Ratio 1.2 Procalcitonin TSH Prolactin Urine Color Urine Appearance Urine pH Ur Specific [place] Urine Protein Urine Glucose (UA) Urine Ketones Urine Occult Blood Urine Nitrate Urine Bilirubin Urine Urobilinogen Ur Leukocyte Esterase Urine RBC Urine WBC Ur Squamous Epith Cells Urine Bacteria Hyaline Casts Ur Culture Indicated? Vol Urine Centrifuged Nasal Screen MRSA (PCR) U Opiates 300ng/mL cut Ur Oxycodone Screen Urine Methadone Screen Ur Barbiturates Screen U Tricyclic Antidepress Ur Phencyclidine Scrn Ur Amphetamines Screen U Methamphetamines Scrn Ur MDMA Scrn (Ecstasy) U Benzodiazepines Scrn Urine Cocaine Screen U Marijuana (THC) Screen Urine Specific [place] Ethyl Alcohol Ur Creatinine PFSH Medical History PONCE (obstructive sleep apnea) Chronic hypoxemic respiratory failure COPD (chronic obstructive pulmonary disease) DM2 (diabetes mellitus, type 2) HTN (hypertension) Thyroiditis Systolic and diastolic CHF, chronic Obesity Surgical History S/P hernia surgery Family History Mother No pertinent past medical history Father No pertinent past medical history Social History household members: other Smoking Status: Former smoker alcohol intake: former Assessment & Plan Assessment & Plan narrative: 1. Left lung pneumonia, present on admission and active. Short course of antibiotics. 2. Acute hypercarbic and hypoxic respiratory failure, present on admission and improved. 3. Metabolic encephalopathy, present on admission and improve. 4. COPD exacerbation, present on admission and improved. 5. Chronic systolic heart failure with pulmonary edema, present on admission and stable. 6. History of recurrent ESBL UTI. Unclear if active. Await urine culture. 7. History of chronic hypoxic respiratory failure, present on admission and active. 8. DM 2, present on admission and stable. 9. BLANCA on Chronic kidney disease with baseline creatinine 1.3, present on admission and improving. 10. Paroxysmal atrial fibrillation, stable. PLAN: -off from BiPAP, wean O2. -follow blood cultures, empiric antibiotics for pneumonia with meropenem given history of ESBL. May discontinue after 3 days of culture data is unremarkable. -urine culture, rule out ESBL reinfection. Follow urine culture. -Stop IV fluids -correctional lispro insulin. Add glargine, low-dose, diabetic diet, and a.c. HS blood glucose. MYRIAM is October 26, depending on her clinical course and obtaining a BiPAP approval. Inpatient status, expected least 2 nights of hospital level care. Default to full resuscitation as per previous admissions. Time-Based Coding :: 30 min spent with patient and on the chart (including review of chart, obtaining history, exam, reviewing outside data, placing orders, documenting exam and treatment plan, and counseling patient) on 10/24. Quality VTE Deep Vein Thrombosis/Pulmonary Embolism Present on Admission: No
--- NOTE | 2023-10-25 07:56 | PC.NURSE ---
shift supervisor film processing RN note am BG 67, pt more awake, yelling out, oriented to self and place, refusing to wear bipap, switched to baseline 2L MD TESHA notified of low blood sugars, hypoglycemia orders placed, 100ml D10 given, recheck of BG 100, hand off given to day shift RN
[2023-10-25] MEDS: HEPARIN 5,000 UNIT/ML VIAL 5000 UNIT SUBCUT ×2 (08:46→21:01)
[2023-10-25] MEDS: ALBUTEROL 2.5 MG/3 ML NEB (ADULT) INH ×3 (09:02→19:43)
[2023-10-25] MEDS: ALBUTEROL/IPRATROPIUM 3 ML AMPUL INH ×3 (12:22→17:09)
[2023-10-25] MEDS: INSULIN LISPRO 100 UNIT/ML 3ML VIAL SUBCUT ×2 (12:49→17:16)
[2023-10-25] MEDS: NYSTATIN POWDER 15GM 1 APPLIC TOP ×2 (16:31→21:00)
[2023-10-25] MEDS: ACETAMINOPHEN 325 MG TABLET 650 MG PO (17:55)
[2023-10-26] VITALS (57 sets, daily range): BP systolic 81–133; BP diastolic 51–85; PULSE 69–208; RESP 18–43; TEMP 32–36.6; O2SAT 93–100
[2023-10-26] MEDS: MEROPENEM 2 GM in SODIUM CHLORIDE 0.9% 100 ML IV ×3 (01:12→17:57)
--- NOTE | 2023-10-26 05:35 | PC.NURSE ---
Patient resting in bed most of the shift. Has BIPAP on, which had to be readjusted a few times. 02 sats 96%. Patient able to help w/transfers in bed. Patient has been A&O, calm and cooperative. She did accidentally remove her lf wrist IV but has another in her rt upper arm.
[2023-10-26 05:43] LABS: Alanine Aminotransferase 15 IU/L (<35); Albumin 3.1 g/dL (3.5-5.0); Albumin Globulin Ratio 1.2 (1.0-2.8); Alkaline Phosphatase 36 U/L (38-126); Aspartate Aminotransferase 19 IU/L (14-36); BUN Creatinine Ratio 35.9 (6-22); Bilirubin Total 0.6 mg/dL (0.2-1.3); Blood Urea Nitrogen 46 mg/dL (7-17); Calcium 9.6 mg/dL (8.4-10.2); Carbon Dioxide 32 mmol/L (22-32); Chloride 103 mmol/L (98-107); Estimated Glomerular Filt Rate 47 mL/min (>60); Globulin 2.5 g/dL (1.7-4.1); Glucose 135 mg/dL (80-110); HEMOLYSIS < 15 (0-50); Potassium 4.1 mmol/L (3.4-5.1); Sodium 138 mmol/L (137-145); Total Protein 5.6 g/dL (6.3-8.2)
[2023-10-26 06:01] LABS: Add Manual Diff / Slide Review NO; Basophils Absolute Auto 0 /uL (0-100); Basophils Percent Auto 0.5 % (0-2); Eosinophils Absolute Auto 100 /uL (0-450); Eosinophils Percent Auto 1.4 % (2-4); Hematocrit 34.1 % (36-46); Hemoglobin 11.1 g/dL (12.0-16.0); Lymphocytes Absolute Auto 900 /uL (1100-4500); Lymphocytes Percent Auto 14.1 % (25-40); Mean Corpuscular HGB Conc 32.7 % (30-36); Mean Corpuscular Hemoglobin 32.3 PG (26-34); Monocytes Absolute Auto 400 /uL (0-900); Monocytes Percent Auto 6.9 % (3-14); Neutrophils Absolute Auto 4800 /uL (1500-7000); Neutrophils Percent Auto 77.1 % (50-75); Platelet Count 151 X10^3/uL (150-400); Red Blood Cell Count 3.44 X10^6/uL (4.0-5.2); Red Cell Distribution Width 16.4 % (11.6-14.8); White Blood Cell Count 6.2 X10^3/uL (4.5-11.0)
--- NOTE | 2023-10-26 07:38 | PM.PN.1 ---
Subjective Subjective Interval history: Summary: She was admitted with hypercarbic respiratory failure and relative hypotension in context of her CPAP not working for the last 2 weeks at the nursing home facility. Her initial CO2 was 110, she improved on BiPAP for approximately 8 hours. She denies recent cough. -She has a history of PAF and went into AF with RVR this morning which self aborted prior to getting a dose of IV metoprolol. -We are trying to obtain a BiPAP or trilogy for her to use at her facility as she lost her CPAP in the last several weeks and appears to need ventilatory support with a pCO2 of 110 upon arrival. S: She states she was feeling better, denies a cough or dyspnea per se. No chest pain. No nausea. Exam Vital Signs (past 8 hours): - 10/26/23 00:00 10/26/23 00:00 10/26/23 00:00 Temperature 96.8 F L Pulse Rate 74 Respiratory Rate 33 H Blood Pressure 99/57 L Pulse Oximetry 93 Oxygen Delivery Method BiPAP Oxygen Flow Rate 4 Fraction of Inspired Oxygen 10/26/23 00:05 10/26/23 01:00 10/26/23 01:00 Temperature Pulse Rate 82 Respiratory Rate 32 H Blood Pressure 129/63 Pulse Oximetry 96 Oxygen Delivery Method Oxygen Flow Rate 4 Fraction of Inspired Oxygen 30 10/26/23 02:00 10/26/23 03:00 10/26/23 04:00 Temperature 96.9 F L Pulse Rate 94 H 81 87 Respiratory Rate 22 32 H 31 H Blood Pressure 116/58 L 90/56 L 129/77 Pulse Oximetry 97 97 98 Oxygen Delivery Method Oxygen Flow Rate 4 4 0 Fraction of Inspired Oxygen 10/26/23 04:00 10/26/23 04:00 10/26/23 05:00 Temperature Pulse Rate Respiratory Rate Blood Pressure 118/82 Pulse Oximetry Oxygen Delivery Method BiPAP Oxygen Flow Rate Fraction of Inspired Oxygen 30 10/26/23 05:00 10/26/23 06:00 10/26/23 06:00 Temperature Pulse Rate 86 80 Respiratory Rate 27 H 32 H Blood Pressure 133/74 Pulse Oximetry 97 98 Oxygen Delivery Method Oxygen Flow Rate 4 4 Fraction of Inspired Oxygen Fraction of Inspired Oxygen 30 SaO2/FiO2 Ratio 303 Oxygen Delivery Method BiPAP Oxygen Flow Rate 4 Narrative Exam Narrative: NAD, alert and oriented. Fluent speech. Lungs are clear, normal rate and effort. Heart is irregular, no murmur gallop or rub. Abdomen is soft, non distended. Extremities are free of edema. Objective Labs 10/26/23 05:49 10/26/23 05:15 Labs: Laboratory Results - last 24 hr 10/26/23 10/26/23 05:15 05:49 WBC 6.2 RBC 3.44 L Hgb 11.1 L Hct 34.1 L MCV 99.0 MCH 32.3 MCHC 32.7 RDW 16.4 H Plt Count 151 Neut % (Auto) 77.1 H Lymph % (Auto) 14.1 L [place] % (Auto) 6.9 Eos % (Auto) 1.4 L Baso % (Auto) 0.5 Neut # (Auto) 4800 Lymph # (Auto) 900 L [place] # (Auto) 400 Eos # (Auto) 100 Baso # (Auto) 0 Sodium 138 Potassium 4.1 Chloride 103 Carbon Dioxide 32 BUN 46 H Creatinine 1.28 H Estimated GFR 47 L BUN/Creatinine Ratio 35.9 H Glucose 135 H Calcium 9.6 Total Bilirubin 0.6 AST 19 ALT 15 Alkaline Phosphatase 36 L Total Protein 5.6 L Albumin 3.1 L Globulin 2.5 Albumin/Globulin Ratio 1.2 [facility] Medical History PONCE (obstructive sleep apnea) Chronic hypoxemic respiratory failure COPD (chronic obstructive pulmonary disease) DM2 (diabetes mellitus, type 2) HTN (hypertension) Thyroiditis Systolic and diastolic CHF, chronic Obesity Surgical History S/P hernia surgery Family History Mother No pertinent past medical history Father No pertinent past medical history Social History household members: other Smoking Status: Former smoker alcohol intake: former Assessment & Plan Assessment & Plan narrative: 1. Possible left lung pneumonia, present on admission and active. Short course of antibiotics, 3 days. 2. Acute hypercarbic and hypoxic respiratory failure, present on admission and improved. 3. Metabolic encephalopathy, present on admission and improve. 4. COPD exacerbation, present on admission and improved. 5. Chronic systolic heart failure with pulmonary edema, present on admission and stable. 6. History of recurrent ESBL UTI. Unclear if active. Await urine culture. 7. History of chronic hypoxic respiratory failure, present on admission and active. 8. DM 2, present on admission and stable. 9. BLANCA on Chronic kidney disease with baseline creatinine 1.3, present on admission and improving. 10. Paroxysmal atrial fibrillation, stable. PLAN: -Nocturnal BiPAP, wean O2. Trying to pursue a new home event for her facility. [employer] is the vendor. Orders have been placed. -follow blood cultures, empiric antibiotics for pneumonia with meropenem given history of ESBL. May discontinue after 3 days of culture data is unremarkable. -urine culture, rule out ESBL reinfection. Follow urine culture. -Stop IV fluids -correctional lispro insulin. Add glargine, low-dose, diabetic diet, and a.c. HS blood glucose. MYRIAM is October 26, depending on her clinical course and obtaining a BiPAP approval. Inpatient status, expected least 2 nights of hospital level care. Full resuscitation as per previous admissions. Time-Based Coding :: 25 min spent with patient and on the chart (including review of chart, obtaining history, exam, reviewing outside data, placing orders, documenting exam and treatment plan, and counseling patient) on 10/25. Quality VTE Deep Vein Thrombosis/Pulmonary Embolism Present on Admission: No
--- NOTE | 2023-10-26 08:29 | EKG_ITS ---
[facility] [address] [place] [address] Test Date: 2023-10-26 Pat Name: Mary Carmen Jett Department: Room: 227 Gender: Female Animal Breeder: REAGAN : 1960 Requested By: Order Number: [id number] Reading MD: Rayray Grijalva MD Measurements Intervals [place] Rate: 160 P: SD: QRS: 243 QRSD: 112 T: 28 QT: 308 QTc: 502 Interpretive Statements Critical Test Result: High HR Atrial fibrillation with rapid ventricular response Right superior axis deviation Low voltage QRS Nonspecific ST and T wave abnormality Electronically Signed On 10-26-2023 8:48:38 PDT by Rayray Grijalva MD
--- NOTE | 2023-10-26 08:44 | PC.NURSE ---
Addendum entered by Danelle Ulloa R.N. 10/26/23 09:44: HR afib RVR 208 at approximately 0855. provider notified and at bedside. new orders received. IV metoprolol given as ordered (See MAY). HR 116 at 0902. BP WDL during RVR. Care ongoing. Original Note: Pt in NSR, into afrib RVR at approximately 0815. EKG ordered, confirmed afib RVR 160 HR. Provider notified. New orders received. BP WDL. Afib CVR at approximately 0835. Provider at bedside.
[2023-10-26] MEDS: METOPROLOL TARTRATE 5 MG/5 ML INJ IV ×3 (08:56→12:04)
[2023-10-26] MEDS: HEPARIN 5,000 UNIT/ML VIAL 5000 UNIT SUBCUT ×2 (09:14→22:37)
[2023-10-26] MEDS: NYSTATIN POWDER 15GM 1 APPLIC TOP ×2 (09:15→21:34)
--- NOTE | 2023-10-26 09:28 | DIET.CONS ---
Dietary Consultation Note Admission Date: 10/24/2023 14:21 Assessment: 63 y F presented with AMS, hypoglycemia, and SOB. Nutrition consulted for assessed at high risk. Pt sleeping soundly, chart reviewed. PMH of DM2 w/ last A1c 9.3% in 06/27/23, CKD, and CHF. 100% of breakfast intake recorded this morning. DFM checked for meal composition. Ht: 152.4 cm Wt: 116.5 kg BMI: 49.9 UBW: 118.3 kg on 08/03/23 (non-severe weight loss) Last BM: 10/25/23 (10/25/23 11:51) MNA: 11 Matt Score: 13 Diet: 10/25/23 Breakfast Carbohydrate Consistent Diet Diet Modifications: Carbohydrate level: Medium (3 CHO) Reflex DM orders: No Food Texture: Level 7 - Regular Liquid Consistency: Level 0 - Thin Nutrition Percent Meal Consumed 75% 10/25/23 18:04 Labs: RBC 3.44 X10^6/uL (4.0-5.2) L 10/26/23 05:49 Hgb 11.1 g/dL (12.0-16.0) L 10/26/23 05:49 Hct 34.1 % (36-46) L 10/26/23 05:49 Creatinine 1.28 mg/dL (0.52-1.04) H 10/26/23 05:15 Lactate 0.7 mmol/L (0.7-2.1) 10/24/23 12:26 NT-Pro-B Natriuret Pep 46998 pg/mL (<125) H 10/24/23 12:26 Nutrition Diagnosis: Altered nutrition related labs values (A1c) r/t endocrine dysfunction aeb A1c 9.3% Interventions: 1. Continue carb-consistent diet Monitoring/Evaluations: po intakes, BG, f/u in 1-3 days Electronically Signed by: Mary Lou Valente 10/26/23 09:28 Clinical Dietitian [address] [address]
[2023-10-26] MEDS: FUROSEMIDE 40 MG/4 ML VIAL IV (11:24)
--- NOTE | 2023-10-26 11:52 | CM.DPNOTE ---
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 Updated Danelle Painter, Director of RT services with above and then placed call to Miladis smith [facility]. Miladis plans to get in touch with Shobha at [facility] to discuss and will advocate for [facility] paying for rented Bipap until patient's insurance authorizes home Bipap. This [employer] now has access to [place], which RT uses for all DME orders. Emailed Rx, order summary and F2F for home ventilator to Miladis smith [facility], CCd Shobha and Danelle Painter. Following closely for coordination efforts. Original Note: DCP Cont Reviewed chart. Patient discussed in multidisciplinary rounds. Danelle Painter, teacher advisor and Shobha Frank from [facility] are working closely to obtain a Bipap vs Trilogy for patient before return to SNF. Patient may be ready for medical discharge over the next 24-48 hrs. This [employer] available to assist in this process as needed. Plan remains return to [facility] H+R, patient is a long-term care resident there, once medically discharged. CM team following clinical course closely for coordination efforts. NEO
[2023-10-26] MEDS: INSULIN LISPRO 100 UNIT/ML 3ML VIAL SUBCUT ×3 (12:12→21:18)
[2023-10-26] MEDS: FENOFIBRATE, MICRONIZED 67 MG CAPSULE 201 MG PO (13:26)
[2023-10-26] MEDS: predniSONE 20 MG TABLET 30 MG PO (13:26)
[2023-10-26] MEDS: POTASSIUM CHLORIDE 10 MEQ TAB 20 MEQ PO (13:28)
[2023-10-26] MEDS: MIDODRINE HCL 5 MG TABLET 10 MG PO ×2 (13:28→22:38)
[2023-10-26] MEDS: ASPIRIN EC 81 MG TABLET PO (13:28)
[2023-10-26] MEDS: MAGNESIUM OXIDE 400 MG TABLET 200 MG PO (13:28)
[2023-10-26] MEDS: LORATADINE 10 MG TABLET PO (13:28)
[2023-10-26] MEDS: MONTELUKAST 10 MG TABLET PO (13:28)
[2023-10-26] MEDS: carvediloL 3.125 MG TABLET PO ×2 (13:28→22:39)
[2023-10-26] MEDS: FLUoxetine 20 MG CAPSULE PO (13:29)
[2023-10-26] MEDS: ALBUTEROL/IPRATROPIUM 3 ML AMPUL INH ×2 (15:25→19:18)
[2023-10-26] MEDS: BUDESONIDE 0.5 MG/2 ML NEB INH (19:18)
[2023-10-26] MEDS: SODIUM CHLORIDE 0.9% FLUSH 10 ML IV (21:20)
[2023-10-26] MEDS: GABAPENTIN 300 MG CAPSULE PO (22:39)
[2023-10-26] MEDS: buPROPion SR 100 MG TAB PO (22:39)
[2023-10-26] MEDS: TRAZODONE 50 MG TABLET PO (22:39)
[2023-10-26] MEDS: ATORVASTATIN 20 MG TABLET 80 MG PO (22:39)
[2023-10-27] VITALS (38 sets, daily range): BP systolic 109–127; BP diastolic 52–69; PULSE 57–101; RESP 21–44; TEMP 36.7–36.9; O2SAT 92–97
[2023-10-27] MEDS: ALBUTEROL/IPRATROPIUM 3 ML AMPUL INH ×6 (00:25→19:38)
[2023-10-27] MEDS: MEROPENEM 2 GM in SODIUM CHLORIDE 0.9% 100 ML IV ×2 (01:26→09:51)
[2023-10-27 04:28] LABS: Add Manual Diff / Slide Review NO; Basophils Absolute Auto 100 /uL (0-100); Basophils Percent Auto 0.7 % (0-2); Eosinophils Absolute Auto 100 /uL (0-450); Eosinophils Percent Auto 0.7 % (2-4); Hematocrit 34.2 % (36-46); Hemoglobin 11.4 g/dL (12.0-16.0); Lymphocytes Absolute Auto 1100 /uL (1100-4500); Lymphocytes Percent Auto 12.6 % (25-40); Mean Corpuscular HGB Conc 33.3 % (30-36); Mean Corpuscular Hemoglobin 32.6 PG (26-34); Mean Corpuscular Volume 98.1 fL (80-100); Monocytes Absolute Auto 600 /uL (0-900); Monocytes Percent Auto 6.9 % (3-14); Neutrophils Absolute Auto 6700 /uL (1500-7000); Neutrophils Percent Auto 79.1 % (50-75); Platelet Count 171 X10^3/uL (150-400); Red Blood Cell Count 3.49 X10^6/uL (4.0-5.2); Red Cell Distribution Width 15.9 % (11.6-14.8); White Blood Cell Count 8.5 X10^3/uL (4.5-11.0)
[2023-10-27 04:35] LABS: Alanine Aminotransferase 19 IU/L (<35); Albumin 3.3 g/dL (3.5-5.0); Albumin Globulin Ratio 1.2 (1.0-2.8); Alkaline Phosphatase 39 U/L (38-126); Aspartate Aminotransferase 24 IU/L (14-36); BUN Creatinine Ratio 35.2 (6-22); Bilirubin Total 0.6 mg/dL (0.2-1.3); Blood Urea Nitrogen 37 mg/dL (7-17); Calcium 9.3 mg/dL (8.4-10.2); Carbon Dioxide 37 mmol/L (22-32); Chloride 98 mmol/L (98-107); Estimated Glomerular Filt Rate > 60 mL/min (>60); Globulin 2.7 g/dL (1.7-4.1); Glucose 163 mg/dL (80-110); HEMOLYSIS < 15 (0-50); Potassium 4.2 mmol/L (3.4-5.1); Sodium 139 mmol/L (137-145)
[2023-10-27] MEDS: BUDESONIDE 0.5 MG/2 ML NEB INH ×2 (09:02→19:38)
[2023-10-27] MEDS: carvediloL 3.125 MG TABLET PO ×2 (09:51→20:49)
[2023-10-27] MEDS: FENOFIBRATE, MICRONIZED 67 MG CAPSULE 201 MG PO (09:51)
[2023-10-27] MEDS: ASPIRIN EC 81 MG TABLET PO (09:52)
[2023-10-27] MEDS: MIDODRINE HCL 5 MG TABLET 10 MG PO ×2 (09:52→20:49)
[2023-10-27] MEDS: MONTELUKAST 10 MG TABLET PO (09:52)
[2023-10-27] MEDS: POTASSIUM CHLORIDE 10 MEQ TAB 20 MEQ PO (09:52)
[2023-10-27] MEDS: LORATADINE 10 MG TABLET PO (09:52)
[2023-10-27] MEDS: FLUoxetine 20 MG CAPSULE PO (09:52)
[2023-10-27] MEDS: HEPARIN 5,000 UNIT/ML VIAL 5000 UNIT SUBCUT ×2 (09:54→20:50)
[2023-10-27] MEDS: MAGNESIUM OXIDE 400 MG TABLET 200 MG PO (09:55)
[2023-10-27] MEDS: predniSONE 20 MG TABLET 30 MG PO (09:56)
[2023-10-27] MEDS: NYSTATIN POWDER 15GM 1 APPLIC TOP ×2 (09:58→20:51)
[2023-10-27] MEDS: SODIUM CHLORIDE 0.9% FLUSH 10 ML IV ×2 (09:59→20:51)
--- NOTE | 2023-10-27 10:44 | OT.IPNOTE ---
OT eric received and able to talk to pt. Per pt has been bed bound for the past year and needing assist for most needs besides oral care, grooming , and UB dressing. Pt is at her baseline function for ADL and mobility needs. Pt's main concern is getter a coverage for BiPAP. NO charge.
--- NOTE | 2023-10-27 12:01 | PM.PN.1 ---
Subjective Subjective Date Patient Seen: 10/27/23 Time Patient Seen: 08:15 Interval history: Summary: She was admitted with hypercarbic respiratory failure and relative hypotension in context of her CPAP not working for the last 2 weeks at the group home facility. Her initial CO2 was 110, she improved on BiPAP for approximately 8 hours. She denies recent cough. -She has a history of PAF and went into AF with RVR this morning which self aborted prior to getting a dose of IV metoprolol. -Plan is to obtain a BiPAP or trilogy for her to use at her facility as she lost her CPAP in the last several weeks and appears to need ventilatory support with a pCO2 of 110 upon arrival. S: She states she was feeling better, denies a cough or dyspnea per se. No chest pain. No nausea. Team rounds conducted today anticipating return of skilled OT and PT services at her long-term care facility. Exam Vital Signs (past 8 hours): - 10/27/23 05:00 10/27/23 06:00 10/27/23 07:00 Temperature Pulse Rate 75 59 L 59 L Respiratory Rate 25 H 33 H 27 H Blood Pressure Pulse Oximetry 95 97 94 Oxygen Delivery Method Oxygen Flow Rate Fraction of Inspired Oxygen 10/27/23 08:00 10/27/23 08:00 10/27/23 08:29 Temperature 98.1 F Pulse Rate 57 L Respiratory Rate 32 H Blood Pressure 122/58 L Pulse Oximetry 94 Oxygen Delivery Method Oxygen Flow Rate Fraction of Inspired Oxygen 10/27/23 08:29 10/27/23 09:00 10/27/23 09:24 Temperature Pulse Rate 66 92 H Respiratory Rate 31 H 33 H Blood Pressure Pulse Oximetry 97 96 97 Oxygen Delivery Method Nasal Cannula Oxygen Flow Rate 2 Fraction of Inspired Oxygen 28 10/27/23 09:51 10/27/23 10:00 10/27/23 10:00 Temperature Pulse Rate 95 H 101 H Respiratory Rate 27 H Blood Pressure 122/62 Pulse Oximetry 94 Oxygen Delivery Method Nasal Cannula BiPAP Oxygen Flow Rate Fraction of Inspired Oxygen Fraction of Inspired Oxygen 28 SaO2/FiO2 Ratio 346 Oxygen Delivery Method Nasal Cannula,BiPAP Oxygen Flow Rate 2 Narrative Exam Narrative: GENERAL: This is a well-nourished, well-developed patient, in no apparent distress. BiPAP in place. EYES: Pupils equal round and reactive. Extraocular motions intact. No scleral icterus. No injection or drainage. ENT: Mucous membranes pink and moist. NECK: Supple, nontender, no meningeal signs. CARDIOVASCULAR: Irregular rhythm without murmurs, gallops, or rubs. RESPIRATORY: Clear to auscultation. GASTROINTESTINAL: Abdomen soft, non-tender, nondistended. EXTREMITIES: No clubbing, cyanosis, or edema. NEUROLOGIC: Alert, oriented, speech fluent, full upper and lower motor strength, no focal deficits evident. DERMATOLOGIC: No rashes or skin lesions. Objective Labs 10/27/23 04:17 10/27/23 04:17 Labs: Laboratory Results - last 24 hr 10/27/23 04:17 WBC 8.5 RBC 3.49 L Hgb 11.4 L Hct 34.2 L MCV 98.1 MCH 32.6 MCHC 33.3 RDW 15.9 H Plt Count 171 Neut % (Auto) 79.1 H Lymph % (Auto) 12.6 L Sharkey % (Auto) 6.9 Eos % (Auto) 0.7 L Baso % (Auto) 0.7 Neut # (Auto) 6700 Lymph # (Auto) 1100 Sharkey # (Auto) 600 Eos # (Auto) 100 Baso # (Auto) 100 Sodium 139 Potassium 4.2 Chloride 98 Carbon Dioxide 37 H BUN 37 H Creatinine 1.05 H Estimated GFR > 60 BUN/Creatinine Ratio 35.2 H Glucose 163 H Calcium 9.3 Total Bilirubin 0.6 AST 24 ALT 19 Alkaline Phosphatase 39 Total Protein 6.0 L Albumin 3.3 L Globulin 2.7 Albumin/Globulin Ratio 1.2 [facility] Medical History PONCE (obstructive sleep apnea) Chronic hypoxemic respiratory failure COPD (chronic obstructive pulmonary disease) DM2 (diabetes mellitus, type 2) HTN (hypertension) Thyroiditis Systolic and diastolic CHF, chronic Obesity Surgical History S/P hernia surgery Family History Mother No pertinent past medical history Father No pertinent past medical history Social History household members: other Smoking Status: Former smoker alcohol intake: former Assessment & Plan Assessment & Plan narrative: 1. Possible left lung pneumonia, present on admission and active. Short course of antibiotics, 3 days, completed 10/27/2023. 2. Acute hypercarbic and hypoxic respiratory failure, present on admission and improved. 3. Metabolic encephalopathy, present on admission and improve. 4. COPD exacerbation, present on admission and improved. 5. Chronic systolic heart failure with pulmonary edema, present on admission and stable. 6. History of recurrent ESBL UTI. Unclear if active. Await urine culture. 7. History of chronic hypoxic respiratory failure, present on admission and active. 8. DM 2, present on admission and stable. 9. BLANCA on Chronic kidney disease with baseline creatinine 1.3, present on admission and improving. 10. Paroxysmal atrial fibrillation, stable. PLAN: -Nocturnal BiPAP, wean O2. Trying to pursue a new home event for her facility. [employer] is the vendor. Orders have been placed. -PT and OT evaluations for skilled services at her long-term care facility -follow blood cultures, empiric antibiotics for pneumonia with meropenem x 3 days through 10/27/2023 given history of ESBL, current culture data is unremarkable. -correctional lispro insulin. Add glargine, low-dose, diabetic diet, and a.c. HS blood glucose. MYRIAM is October 27, depending on her clinical course and obtaining a BiPAP approval. Inpatient status, expected least 2 nights of hospital level care. Full resuscitation as per previous admissions. Time-Based Coding :: [TOTAL MINUTES] spent with patient and on the chart (including review of chart, obtaining history, exam, reviewing outside data, placing orders, documenting exam and treatment plan, and counseling patient) on [DATE]. Quality VTE Deep Vein Thrombosis/Pulmonary Embolism Present on Admission: No IH PROFEE Charge codes Subsequent inpatient/observation care: 41368
[2023-10-27] MEDS: INSULIN LISPRO 100 UNIT/ML 3ML VIAL SUBCUT ×3 (12:04→20:50)
--- NOTE | 2023-10-27 13:30 | CM.DPC ---
DCP Cont According to therapies, patient is at functional baseline, no need for inpatient therapy evals. Updated Miladis at [facility]. Barber auth being attempted, may get denied per Miladis. Meanwhile, Shobha rFank with [facility]: [phone] states they are making progress and they CAN get an auth through patient's Barber for Trilogy and this is being worked on now. Shobha will update [facility]. Oximetry equipment will be delivered today to the ICU for measurement over the next day or two IN CASE patient is not authd for Triology, this data will help auth patient's Bipap. CM team will follow closely for coordination efforts. A breathing machine, either Trilogy vs Bipap needs to be secured before patient returns to [facility] as patient is at high risk for readmission without. NEO
--- NOTE | 2023-10-27 13:55 | PT-IP ANOTE ---
Pt eval order received. Talked with pt and pt confirmed that she lives at [facility]. stated that she is usually just in bed and if she gets out of the bed, staff uses a bogdan lift. pt is at baseline level of mobility. no PT needs at this time. will d/c PT eval order. nurse and showcase maker aware.
[2023-10-27] MEDS: ALBUTEROL 2.5 MG/3 ML NEB (ADULT) INH (16:54)
[2023-10-27] MEDS: TRAZODONE 50 MG TABLET PO (20:49)
[2023-10-27] MEDS: GABAPENTIN 300 MG CAPSULE PO (20:49)
[2023-10-27] MEDS: buPROPion SR 100 MG TAB PO (20:49)
[2023-10-27] MEDS: ATORVASTATIN 20 MG TABLET 80 MG PO (20:49)
[2023-10-28] VITALS (38 sets, daily range): BP systolic 93–114; BP diastolic 60–71; PULSE 45–91; RESP 18–43; TEMP 32–37; O2SAT 91–98
[2023-10-28] MEDS: LEVOTHYROXINE 100 MCG TABLET PO (06:05)
[2023-10-28] MEDS: LEVOTHYROXINE 75 MCG TABLET PO (06:05)
[2023-10-28] MEDS: SODIUM CHLORIDE 0.9% FLUSH 10 ML IV ×3 (06:06→20:50)
--- NOTE | 2023-10-28 08:39 | PM.PN.1 ---
Subjective Subjective Date Patient Seen: 10/28/23 Time Patient Seen: 08:05 Interval history: Summary: She was admitted with hypercarbic respiratory failure and relative hypotension in context of her CPAP not working for the last 2 weeks at the alf facility. Her initial CO2 was 110, she improved on BiPAP for approximately 8 hours. She denies recent cough. -She has a history of PAF and went into AF with RVR this morning which self aborted prior to getting a dose of IV metoprolol. -Plan is to obtain a BiPAP or trilogy for her to use at her facility as she lost her CPAP in the last several weeks and appears to need ventilatory support with a pCO2 of 110 upon arrival. Interval history: No new events overnight. Awaiting clearance from facility for discharge. Exam Vital Signs (past 8 hours): - 10/28/23 01:00 10/28/23 01:33 10/28/23 01:33 Temperature Pulse Rate 57 L 74 Respiratory Rate 32 H 33 H Blood Pressure 111/60 Pulse Oximetry 93 94 Oxygen Delivery Method Fraction of Inspired Oxygen 10/28/23 02:00 10/28/23 02:33 10/28/23 03:00 Temperature Pulse Rate 51 L Respiratory Rate 32 H Blood Pressure 111/60 Pulse Oximetry 94 Oxygen Delivery Method Nasal Cannula BiPAP Fraction of Inspired Oxygen 30 10/28/23 03:00 10/28/23 04:00 10/28/23 05:00 Temperature Pulse Rate 47 L 54 L 51 L Respiratory Rate 32 H 31 H 27 H Blood Pressure Pulse Oximetry 94 93 95 Oxygen Delivery Method Fraction of Inspired Oxygen 10/28/23 06:00 10/28/23 06:07 10/28/23 06:16 Temperature Pulse Rate 58 L Respiratory Rate 31 H Blood Pressure 94/65 Pulse Oximetry 98 Oxygen Delivery Method Fraction of Inspired Oxygen 30 10/28/23 06:16 10/28/23 08:36 Temperature 97.1 F L Pulse Rate 70 Respiratory Rate 30 H Blood Pressure Pulse Oximetry 96 Oxygen Delivery Method Fraction of Inspired Oxygen 30 Fraction of Inspired Oxygen 30 SaO2/FiO2 Ratio 346 Oxygen Delivery Method Nasal Cannula,BiPAP Oxygen Flow Rate 2 Narrative Exam Narrative: GENERAL: This is a well-nourished, well-developed patient, in no apparent distress. BiPAP in place. EYES: Pupils equal round and reactive. Extraocular motions intact. No scleral icterus. No injection or drainage. ENT: Mucous membranes pink and moist. NECK: Supple, nontender, no meningeal signs. CARDIOVASCULAR: Irregular rhythm without murmurs, gallops, or rubs. RESPIRATORY: Clear to auscultation. GASTROINTESTINAL: Abdomen soft, non-tender, nondistended. EXTREMITIES: No clubbing, cyanosis, or edema. NEUROLOGIC: Alert, oriented, speech fluent, full upper and lower motor strength, no focal deficits evident. DERMATOLOGIC: No rashes or skin lesions. Objective Labs 10/27/23 04:17 10/27/23 04:17 [facility] Medical History PONCE (obstructive sleep apnea) Chronic hypoxemic respiratory failure COPD (chronic obstructive pulmonary disease) DM2 (diabetes mellitus, type 2) HTN (hypertension) Thyroiditis Systolic and diastolic CHF, chronic Obesity Surgical History S/P hernia surgery Family History Mother No pertinent past medical history Father No pertinent past medical history Social History household members: other Smoking Status: Former smoker alcohol intake: former Assessment & Plan Assessment & Plan narrative: 1. Possible left lung pneumonia, present on admission and active. Short course of antibiotics, 3 days, completed 10/27/2023. 2. Acute hypercarbic and hypoxic respiratory failure, present on admission and improved. 3. Metabolic encephalopathy, present on admission and improve. 4. COPD exacerbation, present on admission and improved. 5. Chronic systolic heart failure with pulmonary edema, present on admission and stable. 6. History of recurrent ESBL UTI. Unclear if active. Await final urine culture. Lactobacillus noted, non pathogen. 7. History of chronic hypoxic respiratory failure, present on admission and active. 8. DM 2, present on admission and stable. 9. BLANCA on Chronic kidney disease with baseline creatinine 1.3, present on admission and improving. 10. Paroxysmal atrial fibrillation, stable. PLAN: -Nocturnal BiPAP, wean O2. Trying to pursue a new home event for her facility. [employer] is the vendor. Orders have been placed. -PT and OT evaluations for skilled services at her long-term care facility -follow blood cultures, empiric antibiotics for pneumonia with meropenem x 3 days through 10/27/2023 given history of ESBL, current culture data is unremarkable. -correctional lispro insulin. Add glargine, low-dose, diabetic diet, and a.c. HS blood glucose. MYRIAM is October 28, depending on facility/Trilogy versus BiPAP approval. Inpatient status, expected least 2 nights of hospital level care. Full resuscitation as per previous admissions. Time-Based Coding :: [TOTAL MINUTES] spent with patient and on the chart (including review of chart, obtaining history, exam, reviewing outside data, placing orders, documenting exam and treatment plan, and counseling patient) on [DATE]. Quality VTE Deep Vein Thrombosis/Pulmonary Embolism Present on Admission: No PROFEE Charge codes Subsequent inpatient/observation care: [id number]
[2023-10-28] MEDS: INSULIN LISPRO 100 UNIT/ML 3ML VIAL SUBCUT ×4 (09:41→20:49)
[2023-10-28] MEDS: MONTELUKAST 10 MG TABLET PO (09:45)
[2023-10-28] MEDS: ACETAMINOPHEN 325 MG TABLET 650 MG PO (09:45)
[2023-10-28] MEDS: predniSONE 20 MG TABLET 30 MG PO (09:45)
[2023-10-28] MEDS: carvediloL 3.125 MG TABLET PO ×2 (09:46→20:47)
[2023-10-28] MEDS: FENOFIBRATE, MICRONIZED 67 MG CAPSULE 201 MG PO (09:47)
[2023-10-28] MEDS: POTASSIUM CHLORIDE 10 MEQ TAB 20 MEQ PO (09:47)
[2023-10-28] MEDS: ASPIRIN EC 81 MG TABLET PO (09:47)
[2023-10-28] MEDS: MAGNESIUM OXIDE 400 MG TABLET 200 MG PO (09:47)
[2023-10-28] MEDS: MIDODRINE HCL 5 MG TABLET 10 MG PO ×2 (09:47→20:48)
[2023-10-28] MEDS: FLUoxetine 20 MG CAPSULE PO (09:49)
[2023-10-28] MEDS: HEPARIN 5,000 UNIT/ML VIAL 5000 UNIT SUBCUT ×2 (09:49→20:48)
[2023-10-28] MEDS: LORATADINE 10 MG TABLET PO (09:50)
[2023-10-28] MEDS: NYSTATIN POWDER 15GM 1 APPLIC TOP ×2 (09:54→20:49)
[2023-10-28] MEDS: ALBUTEROL/IPRATROPIUM 3 ML AMPUL INH ×3 (10:29→17:26)
[2023-10-28] MEDS: BUDESONIDE 0.5 MG/2 ML NEB INH (19:44)
[2023-10-28] MEDS: TRAZODONE 50 MG TABLET PO (20:48)
[2023-10-28] MEDS: GABAPENTIN 300 MG CAPSULE PO (20:48)
[2023-10-28] MEDS: buPROPion SR 100 MG TAB PO (20:48)
[2023-10-28] MEDS: ATORVASTATIN 20 MG TABLET 80 MG PO (20:48)
[2023-10-29] VITALS (42 sets, daily range): BP systolic 118–135; BP diastolic 69–85; PULSE 49–84; RESP 18–33; TEMP 35.7–37; O2SAT 90–98
--- NOTE | 2023-10-29 06:28 | PC.NURSE ---
pt wore remote sleep study from 2109 to 109 while wearing 2L NC, then placed on bipap until 0600.
[2023-10-29] MEDS: LEVOTHYROXINE 100 MCG TABLET PO (06:56)
[2023-10-29] MEDS: LEVOTHYROXINE 75 MCG TABLET PO (06:56)
[2023-10-29] MEDS: BUDESONIDE 0.5 MG/2 ML NEB INH ×2 (07:48→18:42)
[2023-10-29] MEDS: ALBUTEROL/IPRATROPIUM 3 ML AMPUL INH ×4 (07:48→18:41)
[2023-10-29] MEDS: INSULIN LISPRO 100 UNIT/ML 3ML VIAL SUBCUT ×4 (07:55→20:33)
[2023-10-29] MEDS: FLUoxetine 20 MG CAPSULE PO (08:30)
[2023-10-29] MEDS: MONTELUKAST 10 MG TABLET PO (08:30)
[2023-10-29] MEDS: MIDODRINE HCL 5 MG TABLET 10 MG PO ×2 (08:30→20:31)
[2023-10-29] MEDS: ASPIRIN EC 81 MG TABLET PO (08:30)
[2023-10-29] MEDS: MAGNESIUM OXIDE 400 MG TABLET 200 MG PO (08:31)
[2023-10-29] MEDS: LORATADINE 10 MG TABLET PO (08:31)
[2023-10-29] MEDS: FENOFIBRATE, MICRONIZED 67 MG CAPSULE 201 MG PO (08:31)
[2023-10-29] MEDS: predniSONE 20 MG TABLET 30 MG PO (08:32)
[2023-10-29] MEDS: POTASSIUM CHLORIDE 10 MEQ TAB 20 MEQ PO (08:32)
[2023-10-29] MEDS: carvediloL 3.125 MG TABLET PO ×2 (08:36→20:31)
[2023-10-29] MEDS: HEPARIN 5,000 UNIT/ML VIAL 5000 UNIT SUBCUT ×2 (08:38→20:31)
[2023-10-29] MEDS: NYSTATIN POWDER 15GM 1 APPLIC TOP ×2 (08:41→20:32)
[2023-10-29] MEDS: SODIUM CHLORIDE 0.9% FLUSH 10 ML IV ×2 (09:38→20:32)
--- NOTE | 2023-10-29 10:32 | PM.PN.1 ---
Subjective Subjective Date Patient Seen: 10/29/23 Time Patient Seen: 07:45 Interval history: The patient underwent her oxygen saturation study off BiPAP last night. No new events reported. She is awaiting senior living facility placement Exam Vital Signs (past 8 hours): - 10/29/23 03:00 10/29/23 04:00 10/29/23 04:30 Temperature Pulse Rate 50 L 49 L Respiratory Rate 30 H 32 H Blood Pressure Pulse Oximetry 95 96 Oxygen Delivery Method Oxygen Flow Rate Fraction of Inspired Oxygen 30 10/29/23 05:00 10/29/23 05:00 10/29/23 05:04 Temperature 97.1 F L Pulse Rate 51 L 50 L Respiratory Rate 26 H 31 H Blood Pressure 122/79 122/79 Pulse Oximetry 97 96 Oxygen Delivery Method Oxygen Flow Rate Fraction of Inspired Oxygen 30 10/29/23 05:04 10/29/23 06:00 10/29/23 07:00 Temperature Pulse Rate 50 L 66 65 Respiratory Rate 28 H 28 H 27 H Blood Pressure Pulse Oximetry 96 97 97 Oxygen Delivery Method Oxygen Flow Rate Fraction of Inspired Oxygen 10/29/23 07:48 10/29/23 08:09 10/29/23 08:36 Temperature Pulse Rate 71 84 Respiratory Rate 18 Blood Pressure 135/80 135/80 Pulse Oximetry 97 Oxygen Delivery Method Nasal Cannula Oxygen Flow Rate 2 Fraction of Inspired Oxygen 28 Fraction of Inspired Oxygen 28 SaO2/FiO2 Ratio 346 Oxygen Delivery Method Nasal Cannula Oxygen Flow Rate 2 Narrative Exam Narrative: GENERAL: This is a well-nourished, well-developed patient, in no apparent distress. BiPAP in place. EYES: Pupils equal round and reactive. Extraocular motions intact. ENT: Mucous membranes pink and moist. NEUROLOGIC: Alert, oriented, speech fluent, full upper and lower motor strength, no focal deficits evident. DERMATOLOGIC: No rashes or skin lesions. Objective Labs 10/27/23 04:17 10/27/23 04:17 [facility] Medical History PONCE (obstructive sleep apnea) Chronic hypoxemic respiratory failure COPD (chronic obstructive pulmonary disease) DM2 (diabetes mellitus, type 2) HTN (hypertension) Thyroiditis Systolic and diastolic CHF, chronic Obesity Surgical History S/P hernia surgery Family History Mother No pertinent past medical history Father No pertinent past medical history Social History household members: other Smoking Status: Former smoker alcohol intake: former Assessment & Plan Assessment & Plan narrative: 1. Possible left lung pneumonia, present on admission and active. Short course of antibiotics, 3 days, completed 10/27/2023. 2. Acute hypercarbic and hypoxic respiratory failure, present on admission and improved. 3. Metabolic encephalopathy, present on admission and improve. 4. COPD exacerbation, present on admission and improved. 5. Chronic systolic heart failure with pulmonary edema, present on admission and stable. 6. History of recurrent ESBL UTI. Unclear if active. Await final urine culture. Lactobacillus noted, non pathogen. 7. History of chronic hypoxic respiratory failure, present on admission and active. 8. DM 2, present on admission and stable. 9. BLANCA on Chronic kidney disease with baseline creatinine 1.3, present on admission and improving. 10. Paroxysmal atrial fibrillation, stable. PLAN: -Nocturnal BiPAP, wean O2. Trying to pursue a new home event for her facility. [employer] is the vendor. Orders have been placed. -PT and OT evaluations for skilled services at her long-term care facility -follow blood cultures, negative at 4 days today, empiric antibiotics for pneumonia with meropenem x 3 days through 10/27/2023 given history of ESBL, current culture data is unremarkable. -correctional lispro insulin. Add glargine, low-dose, diabetic diet, and a.c. HS blood glucose. -medically clear for discharge when senior living facility placement can be arranged MYRIAM is October 29, depending on facility/Trilogy versus BiPAP approval. Inpatient status, expected least 2 nights of hospital level care. Full resuscitation as per previous admissions. Time-Based Coding :: [TOTAL MINUTES] spent with patient and on the chart (including review of chart, obtaining history, exam, reviewing outside data, placing orders, documenting exam and treatment plan, and counseling patient) on [DATE]. Quality VTE Deep Vein Thrombosis/Pulmonary Embolism Present on Admission: No PROFEE Charge codes Subsequent inpatient/observation care: [id number]
--- NOTE | 2023-10-29 11:40 | CM.DPC ---
DCP Cont. Reviewed EMR and team rounds for status updates. [employer] is planning to rent a C-pap for pt until pt's Barber insurance authorizes the permanent machine. 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 Confirm with [facility] when they can accept.
[2023-10-29] MEDS: TRAZODONE 50 MG TABLET PO (20:31)
[2023-10-29] MEDS: GABAPENTIN 300 MG CAPSULE PO (20:31)
[2023-10-29] MEDS: buPROPion SR 100 MG TAB PO (20:31)
[2023-10-29] MEDS: ATORVASTATIN 20 MG TABLET 80 MG PO (20:31)
[2023-10-30] VITALS (39 sets, daily range): BP systolic 100–125; BP diastolic 63–94; PULSE 48–83; RESP 20–39; TEMP 31.1–36.4; O2SAT 90–99
[2023-10-30] MEDS: LEVOTHYROXINE 75 MCG TABLET PO (06:42)
[2023-10-30] MEDS: LEVOTHYROXINE 100 MCG TABLET PO (06:42)
[2023-10-30] MEDS: BUDESONIDE 0.5 MG/2 ML NEB INH ×2 (07:37→18:12)
[2023-10-30] MEDS: ALBUTEROL/IPRATROPIUM 3 ML AMPUL INH ×4 (07:37→18:12)
[2023-10-30] MEDS: INSULIN LISPRO 100 UNIT/ML 3ML VIAL SUBCUT ×4 (08:23→20:31)
[2023-10-30] MEDS: MIDODRINE HCL 5 MG TABLET 10 MG PO ×2 (08:24→20:32)
[2023-10-30] MEDS: carvediloL 3.125 MG TABLET PO ×2 (08:24→20:32)
[2023-10-30] MEDS: FLUoxetine 20 MG CAPSULE PO (08:24)
[2023-10-30] MEDS: MONTELUKAST 10 MG TABLET PO (08:24)
[2023-10-30] MEDS: POTASSIUM CHLORIDE 10 MEQ TAB 20 MEQ PO (08:24)
[2023-10-30] MEDS: HEPARIN 5,000 UNIT/ML VIAL 5000 UNIT SUBCUT ×2 (08:24→20:31)
[2023-10-30] MEDS: LORATADINE 10 MG TABLET PO (08:24)
[2023-10-30] MEDS: ASPIRIN EC 81 MG TABLET PO (08:24)
[2023-10-30] MEDS: FENOFIBRATE, MICRONIZED 67 MG CAPSULE 201 MG PO (08:24)
[2023-10-30] MEDS: predniSONE 20 MG TABLET 30 MG PO (08:25)
[2023-10-30] MEDS: MAGNESIUM OXIDE 400 MG TABLET 200 MG PO (08:27)
[2023-10-30] MEDS: NYSTATIN POWDER 15GM 1 APPLIC TOP ×2 (08:33→20:32)
--- NOTE | 2023-10-30 11:32 | CM.DPC ---
DCP Cont: SW received a call from [employer] [phone] stating they submitted auth for Trilogy to [place] on Mon10/27/23 and still pending and typically can take up to 72 hours to get. Back up plan if Triology is denied then overnight oximetry was obtained and they will submit for bipap auth. If those are denied then 3rd backup plan is that [facility] will rent a bipap for use at [facility]. Plan: [employer] will keep SW updated on Barber auth determination on Trilogy before return to [facility]. [place]
[2023-10-30] MEDS: INSULIN GLARGINE 100 UNIT/ML 3ML PEN 25 UNIT SUBCUT ×2 (12:20→20:31)
--- NOTE | 2023-10-30 15:55 | P.PN_ITS ---
Subjective Subjective Interval history: No complaints today. No new events reported. She is awaiting snf facility placement but requires new Trilogy or BiPAP acceptance prior to SNF return. Working with respiratory threapy on this currently. Exam Vital Signs (past 8 hours): - 10/30/23 08:00 10/30/23 08:00 10/30/23 08:24 Temperature 97.4 F L Pulse Rate 65 79 Respiratory Rate 28 H Blood Pressure 125/94 H Pulse Oximetry 98 Oxygen Delivery Method Oxygen Flow Rate Fraction of Inspired Oxygen 10/30/23 10:11 10/30/23 10:28 10/30/23 11:00 Temperature Pulse Rate 66 57 L Respiratory Rate 24 32 H Blood Pressure 125/94 H Pulse Oximetry 98 91 Oxygen Delivery Method Nasal Cannula Oxygen Flow Rate 3 Fraction of Inspired Oxygen 30 10/30/23 12:00 10/30/23 12:18 10/30/23 12:18 Temperature Pulse Rate 67 67 Respiratory Rate 32 H 27 H Blood Pressure 101/64 Pulse Oximetry 97 98 Oxygen Delivery Method Oxygen Flow Rate Fraction of Inspired Oxygen 10/30/23 12:40 10/30/23 13:00 10/30/23 13:57 Temperature 97.5 F L Pulse Rate 78 Respiratory Rate 26 H Blood Pressure Pulse Oximetry 96 Oxygen Delivery Method Nasal Cannula BiPAP Nasal Cannula Oxygen Flow Rate 3 Fraction of Inspired Oxygen Fraction of Inspired Oxygen 30 SaO2/FiO2 Ratio 309 Oxygen Delivery Method Nasal Cannula Oxygen Flow Rate 3 Narrative Exam Narrative: GENERAL: This is a well-nourished, well-developed patient, in no apparent distress. BiPAP in place. EYES: Pupils equal round and reactive. Extraocular motions intact. ENT: Mucous membranes pink and moist. NEUROLOGIC: Alert, oriented, speech fluent, full upper and lower motor strength, no focal deficits evident. DERMATOLOGIC: No rashes or skin lesions. Objective Labs 10/27/23 04:17 10/27/23 04:17 [facility] Medical History PONCE (obstructive sleep apnea) Chronic hypoxemic respiratory failure COPD (chronic obstructive pulmonary disease) DM2 (diabetes mellitus, type 2) HTN (hypertension) Thyroiditis Systolic and diastolic CHF, chronic Obesity Surgical History S/P hernia surgery Family History Mother No pertinent past medical history Father No pertinent past medical history Social History household members: other Smoking Status: Former smoker alcohol intake: former Assessment & Plan Assessment & Plan narrative: 1. Possible left lung pneumonia, present on admission and active. Short course of antibiotics, 3 days, completed 10/27/2023. 2. Acute hypercarbic and hypoxic respiratory failure, present on admission and improved. 3. Metabolic encephalopathy, present on admission and improve. 4. COPD exacerbation, present on admission and improved. 5. Chronic systolic heart failure with pulmonary edema, present on admission and stable. 6. History of recurrent ESBL UTI. Unclear if active. Await final urine culture. Lactobacillus noted, non pathogen. 7. History of chronic hypoxic respiratory failure, present on admission and active. 8. DM 2, present on admission and stable. 9. BLANCA on Chronic kidney disease with baseline creatinine 1.3, present on admission and improving. 10. Paroxysmal atrial fibrillation, stable. PLAN: -Nocturnal BiPAP, wean O2. Trying to pursue a new home event for her facility. [employer] is the vendor. Orders have been placed. -PT and OT evaluations for skilled services at her long-term care facility -follow blood cultures, negative at 4 days today, empiric antibiotics for pneumonia with meropenem x 3 days through 10/27/2023 given history of ESBL, current culture data is unremarkable. -correctional lispro insulin. Add glargine, low-dose, diabetic diet, and a.c. HS blood glucose. -medically clear for discharge when snf facility placement can be arranged MYRIAM is depending on facility/Trilogy versus BiPAP approval. Once approved can discharge to SNF Inpatient status, expected least 2 nights of hospital level care. Full resuscitation as per previous admissions. Time-Based Coding :: [TOTAL MINUTES] spent with patient and on the chart (including review of chart, obtaining history, exam, reviewing outside data, placing orders, documenting exam and treatment plan, and counseling patient) on [DATE]. Quality VTE Deep Vein Thrombosis/Pulmonary Embolism Present on Admission: No
[2023-10-30] MEDS: ALBUTEROL 2.5 MG/3 ML NEB (ADULT) INH (16:15)
[2023-10-30] MEDS: INSULIN LISPRO 100 UNIT/ML 3ML VIAL 6 UNIT SUBCUT (17:09)
[2023-10-30] MEDS: ACETAMINOPHEN 325 MG TABLET 650 MG PO (20:30)
[2023-10-30] MEDS: GABAPENTIN 300 MG CAPSULE PO (20:32)
[2023-10-30] MEDS: buPROPion SR 100 MG TAB PO (20:32)
[2023-10-30] MEDS: TRAZODONE 50 MG TABLET PO (20:32)
[2023-10-30] MEDS: ATORVASTATIN 20 MG TABLET 80 MG PO (20:32)
[2023-10-30] MEDS: SODIUM CHLORIDE 0.9% FLUSH 10 ML IV (20:32)
[2023-10-31] VITALS (25 sets, daily range): BP systolic 103–128; BP diastolic 57–73; PULSE 45–89; RESP 18–36; TEMP 31–36.4; O2SAT 85–100
[2023-10-31 05:17] LABS: BUN Creatinine Ratio 45.5 (6-22); Blood Urea Nitrogen 51 mg/dL (7-17); Calcium 10.3 mg/dL (8.4-10.2); Carbon Dioxide 37 mmol/L (22-32); Chloride 98 mmol/L (98-107); Estimated Glomerular Filt Rate 56 mL/min (>60); Glucose 283 mg/dL (80-110); HEMOLYSIS < 15 (0-50); Potassium 4.9 mmol/L (3.4-5.1); Sodium 135 mmol/L (137-145)
[2023-10-31] MEDS: LEVOTHYROXINE 100 MCG TABLET PO (06:11)
[2023-10-31] MEDS: LEVOTHYROXINE 75 MCG TABLET PO (06:11)
[2023-10-31] MEDS: BUDESONIDE 0.5 MG/2 ML NEB INH ×2 (08:34→19:48)
[2023-10-31] MEDS: ALBUTEROL/IPRATROPIUM 3 ML AMPUL INH ×4 (08:34→19:48)
[2023-10-31] MEDS: INSULIN LISPRO 100 UNIT/ML 3ML VIAL 6 UNIT SUBCUT ×3 (09:07→17:58)
[2023-10-31] MEDS: INSULIN GLARGINE 100 UNIT/ML 3ML PEN 25 UNIT SUBCUT ×2 (09:07→21:23)
[2023-10-31] MEDS: INSULIN LISPRO 100 UNIT/ML 3ML VIAL SUBCUT ×4 (09:08→21:24)
[2023-10-31] MEDS: FENOFIBRATE, MICRONIZED 67 MG CAPSULE 201 MG PO (09:09)
[2023-10-31] MEDS: carvediloL 3.125 MG TABLET PO ×2 (09:10→21:13)
[2023-10-31] MEDS: POTASSIUM CHLORIDE 10 MEQ TAB 20 MEQ PO (09:10)
[2023-10-31] MEDS: FLUoxetine 20 MG CAPSULE PO (09:10)
[2023-10-31] MEDS: MIDODRINE HCL 5 MG TABLET 10 MG PO ×2 (09:10→21:13)
[2023-10-31] MEDS: ASPIRIN EC 81 MG TABLET PO (09:10)
[2023-10-31] MEDS: HEPARIN 5,000 UNIT/ML VIAL 5000 UNIT SUBCUT ×2 (09:10→21:12)
[2023-10-31] MEDS: LORATADINE 10 MG TABLET PO (09:10)
[2023-10-31] MEDS: MONTELUKAST 10 MG TABLET PO (09:10)
[2023-10-31] MEDS: predniSONE 20 MG TABLET 30 MG PO (09:11)
[2023-10-31] MEDS: MAGNESIUM OXIDE 400 MG TABLET 200 MG PO (09:11)
[2023-10-31] MEDS: NYSTATIN POWDER 15GM 1 APPLIC TOP ×2 (09:12→21:18)
[2023-10-31] MEDS: SODIUM CHLORIDE 0.9% FLUSH 10 ML IV ×2 (09:12→21:14)
--- NOTE | 2023-10-31 11:19 | DIET.PN1 ---
Dietary Progress Note Pt continues to have adequate po intakes avg 75-100%. DFM reviewed for meal composition. Elevated BG discussed with pharmacist 10/29. Insulin adjusted. Noted prednisone. Will continue to monitor BG and po intakes. Ht: 152.4 cm Wt: 119.2 kg BMI: 49.9 UBW: 118.3 kg on 08/03/23 Last BM: 10/29/23 (10/29/23 13:35) MNA: 11 Matt Score: 17 Diet: 10/25/23 Breakfast Carbohydrate Consistent Diet Diet Modifications: Carbohydrate level: Medium (3 CHO) Reflex DM orders: No Food Texture: Level 7 - Regular Liquid Consistency: Level 0 - Thin Nutrition Percent Meal Consumed 100% 10/30/23 18:00 Percent Meal Consumed 100% 10/30/23 13:12 Percent Meal Consumed 50% 10/29/23 18:18 Percent Meal Consumed 100% 10/29/23 12:42 Labs: RBC 3.49 X10^6/uL (4.0-5.2) L 10/27/23 04:17 Hgb 11.4 g/dL (12.0-16.0) L 10/27/23 04:17 Hct 34.2 % (36-46) L 10/27/23 04:17 Creatinine 1.12 mg/dL (0.52-1.04) H 10/31/23 04:13 Lactate 0.7 mmol/L (0.7-2.1) 10/24/23 12:26 NT-Pro-B Natriuret Pep 99399 pg/mL (<125) H 10/24/23 12:26 Electronically Signed by: Mary Lou Valente 10/31/23 11:19 Clinical Dietitian [address] [address]
--- NOTE | 2023-10-31 12:15 | CM.DPC ---
Addendum entered by GA Youssef 10/31/23 14:55: DCP spoke with Shobha at [facility], it was reproted that Pt was authorized for a Trilogy (Auth#[id number]) with [employer] insurance. Trilogy will be delivered by their DCP spoke with [facility] and confirmed that pt can transport to their facility via wheelchair van at [phone] on 10/31. DCP notified hospitalist and pt's RN. SALVATORE [place] Original Note: DCP Continued: Reviewed EMR and team rounds for pt?s medical status. Per rounds, pt pending DME acquisition before returning to [facility]. DCP reconvened with Shobha at [facility] ([phone]) and confirmed that the auth is still pending (entered on Monday, 10/26). [facility] to update CM team when they have a decision. Rep for [facility] will be [place] tomorrow, same number. If denied for Trilogy, bipap auth will be submitted after. If all denied, [facility] will rent a bipap for pt until pt can obtain their own. Plan: Pending authorization from pt's insurance for DME before reutn to [facility]. CM Team will continue to follow for coordination of discharge plans. SALVATORE South
--- NOTE | 2023-10-31 15:18 | P.PN_ITS ---
Subjective Subjective Interval history: No complaints today. No new events reported. She is awaiting nursing home facility placement but requires new Trilogy or BiPAP acceptance prior to SNF return. This was apparently authorized just now, and patient can return to [facility] again tomorrow. Exam Vital Signs (past 8 hours): - 10/31/23 08:00 10/31/23 08:00 10/31/23 08:02 Temperature 96.8 F L Pulse Rate 63 Respiratory Rate 26 H Blood Pressure 106/72 Pulse Oximetry 99 Oxygen Delivery Method Oxygen Flow Rate Fraction of Inspired Oxygen 10/31/23 08:02 10/31/23 08:34 10/31/23 09:10 Temperature Pulse Rate 63 67 89 Respiratory Rate 28 H 18 Blood Pressure 106/62 Pulse Oximetry 100 100 Oxygen Delivery Method Nasal Cannula Oxygen Flow Rate 2 Fraction of Inspired Oxygen 28 10/31/23 12:00 10/31/23 13:00 Temperature Pulse Rate Respiratory Rate Blood Pressure 128/72 Pulse Oximetry Oxygen Delivery Method Nasal Cannula BiPAP Oxygen Flow Rate Fraction of Inspired Oxygen Fraction of Inspired Oxygen 28 SaO2/FiO2 Ratio 357 Oxygen Delivery Method Nasal Cannula,BiPAP Oxygen Flow Rate 2 Narrative Exam Narrative: GENERAL: This is a well-nourished, well-developed patient, in no apparent distress. BiPAP in place. EYES: Pupils equal round and reactive. Extraocular motions intact. ENT: Mucous membranes pink and moist. NEUROLOGIC: Alert, oriented, speech fluent, full upper and lower motor strength, no focal deficits evident. DERMATOLOGIC: No rashes or skin lesions. Objective Labs 10/27/23 04:17 10/31/23 04:13 Labs: Laboratory Results - last 24 hr 10/31/23 04:13 Sodium 135 L Potassium 4.9 Chloride 98 Carbon Dioxide 37 H BUN 51 H Creatinine 1.12 H Estimated GFR 56 L BUN/Creatinine Ratio 45.5 H Glucose 283 H D Calcium 10.3 H PFSH Medical History PONCE (obstructive sleep apnea) Chronic hypoxemic respiratory failure COPD (chronic obstructive pulmonary disease) DM2 (diabetes mellitus, type 2) HTN (hypertension) Thyroiditis Systolic and diastolic CHF, chronic Obesity Surgical History S/P hernia surgery Family History Mother No pertinent past medical history Father No pertinent past medical history Social History household members: other Smoking Status: Former smoker alcohol intake: former Assessment & Plan Assessment & Plan narrative: 1. Possible left lung pneumonia, present on admission and active. Short course of antibiotics, 3 days, completed 10/27/2023. 2. Acute hypercarbic and hypoxic respiratory failure, present on admission and improved. 3. Metabolic encephalopathy, present on admission and improve. 4. COPD exacerbation, present on admission and improved. 5. Chronic systolic heart failure with pulmonary edema, present on admission and stable. 6. History of recurrent ESBL UTI. Unclear if active. Await final urine culture. Lactobacillus noted, non pathogen. 7. History of chronic hypoxic respiratory failure, present on admission and active. 8. DM 2, present on admission and stable. 9. BLANCA on Chronic kidney disease with baseline creatinine 1.3, present on admission and improving. 10. Paroxysmal atrial fibrillation, stable. PLAN: -Nocturnal BiPAP, wean O2. Trying to pursue a new home event for her facility. [employer] is the vendor. Orders have been placed. -PT and OT evaluations for skilled services at her long-term care facility -follow blood cultures, negative at 4 days today, empiric antibiotics for pneumonia with meropenem x 3 days through 10/27/2023 given history of ESBL, current culture data is unremarkable. -correctional lispro insulin. Add glargine, low-dose, diabetic diet, and a.c. HS blood glucose. -medically clear for discharge when nursing home facility placement can be arranged MYRIAM is depending on facility/Trilogy versus BiPAP approval. Once approved can discharge to SNF, per case management this should be tomorrow. Inpatient status, expected least 2 nights of hospital level care. Full resuscitation as per previous admissions. Time-Based Coding :: [TOTAL MINUTES] spent with patient and on the chart (including review of chart, obtaining history, exam, reviewing outside data, placing orders, documenting exam and treatment plan, and counseling patient) on [DATE]. Quality VTE Deep Vein Thrombosis/Pulmonary Embolism Present on Admission: No
[2023-10-31] MEDS: TRAZODONE 50 MG TABLET PO (21:13)
[2023-10-31] MEDS: buPROPion SR 100 MG TAB PO (21:13)
[2023-10-31] MEDS: GABAPENTIN 300 MG CAPSULE PO (21:13)
[2023-10-31] MEDS: ATORVASTATIN 20 MG TABLET 80 MG PO (21:14)
[2023-11-01 03:50] VITALS: RESP 32; TEMP 31; O2SAT 94
[2023-11-01 04:20] LABS: BUN Creatinine Ratio 41.7 (6-22); Blood Urea Nitrogen 48 mg/dL (7-17); Calcium 10.4 mg/dL (8.4-10.2); Carbon Dioxide 39 mmol/L (22-32); Chloride 98 mmol/L (98-107); Estimated Glomerular Filt Rate 54 mL/min (>60); Glucose 205 mg/dL (80-110); HEMOLYSIS < 15 (0-50); Potassium 5.1 mmol/L (3.4-5.1); Sodium 137 mmol/L (137-145)
[2023-11-01] MEDS: LEVOTHYROXINE 100 MCG TABLET PO (06:06)
[2023-11-01] MEDS: LEVOTHYROXINE 75 MCG TABLET PO (06:06)
[2023-11-01 08:00] VITALS: BP 126/71; PULSE 68; RESP 19; O2SAT 99
[2023-11-01] MEDS: INSULIN LISPRO 100 UNIT/ML 3ML VIAL SUBCUT ×2 (08:33→12:08)
[2023-11-01] MEDS: INSULIN LISPRO 100 UNIT/ML 3ML VIAL 6 UNIT SUBCUT ×2 (08:33→12:10)
[2023-11-01 08:55] VITALS: BP 106/57; PULSE 65
[2023-11-01] MEDS: carvediloL 3.125 MG TABLET PO (08:55)
[2023-11-01] MEDS: predniSONE 20 MG TABLET 30 MG PO (08:55)
[2023-11-01 08:59] VITALS: PULSE 87; RESP 18; O2SAT 93
[2023-11-01] MEDS: MIDODRINE HCL 5 MG TABLET 10 MG PO (08:59)
[2023-11-01] MEDS: ALBUTEROL/IPRATROPIUM 3 ML AMPUL INH ×2 (08:59→11:36)
[2023-11-01] MEDS: BUDESONIDE 0.5 MG/2 ML NEB INH (08:59)
[2023-11-01] MEDS: MAGNESIUM OXIDE 400 MG TABLET 200 MG PO (09:00)
--- NOTE | 2023-11-01 09:00 | P.DS_ITS ---
History of Present Illness History of Present Illness Date Patient Seen: 11/01/23 Time Patient Seen: 09:01 Chief complaint: AMS Narrative: ED doctor: 63-year-old female with history of morbid obesity, PONCE, COPD on 2 L nasal cannula with multiple visits for hypercapnic respiratory failure, CHF, diabetes type 2 presents with altered mental status. Per EMS staff noted she was little bit more somnolent this morning last normal possibly last night. Glucose was 109 this morning she had her regular insulin was told to go get breakfast but did not eat and was found to be significantly altered with a glucose in the 50s with EMS. Patient received D10 glucose improved to the 110 range but she can track open her eyes but otherwise not conversant. Also has a history of PONCE and COPD her CPAP broke and she has been without it because insurance will not replace it without another sleep study she has been scheduled to have her sleep study in the next month. Patient will open her eyes to verbal stimuli at sometimes, will open eyes to physical stimuli. Patient can tell me her name, denies pain. Does not answer any questions currently. ED Course: She was placed on BiPAP in the ED for a CO2 of 110. She initially was slow to respond with a 2nd gas. She was recently lost her BiPAP apparently due to coverage. She comes from half-way facility. S: She was recently lost her BiPAP apparently due to coverage. She comes from half-way facility. She has a history of respiratory failure and has been ventilated with BiPAP successfully in the past at this hospital. It did take several hours previously. She can provide no history given her mental status changes. Discharge Providers Provider Date of admission: 10/24/23 14:21 Discharge Date: 11/01/23 Consults: 10/24/23 12:11 Consult to [facility] - Test Engineering Manager Stat Comment: Test Engineering Manager Consult needed for:: Other reason (Comment) Comment: Pts cpap is broken,insurance will notcover a new one. Pt has to have a new sleep study the end of October. Pt has had multiple ED visits with high CO2 levels. 10/24/23 17:27 Consult to Dietitian, Adult Routine Comment: Reason For Exam: assessed at high risk 10/27/23 10:25 Consult to Occupational Therapy Evaluate & Treat Comment: Physician Instructions: Evaluate and treat Consult to Physical Therapy Evaluate & Treat Comment: Physician Instructions: Evaluate and Treat Discharge provider: Esteban Gillespie DO Summary Hospital Course Discharge Diagnosis: 1. Possible left lung pneumonia, present on admission and active. Short course of antibiotics, 3 days, completed 10/27/2023. 2. Acute hypercarbic and hypoxic respiratory failure, present on admission and improved. 3. Metabolic encephalopathy, present on admission and improve. 4. COPD exacerbation, present on admission and improved. 5. Chronic systolic heart failure with pulmonary edema, present on admission and stable. 6. History of recurrent ESBL UTI. Unclear if active. Await final urine culture. Lactobacillus noted, non pathogen. 7. History of chronic hypoxic respiratory failure, present on admission and active. 8. DM 2, present on admission and stable. 9. BLANCA on Chronic kidney disease with baseline creatinine 1.3, present on admission and improving. 10. Paroxysmal atrial fibrillation, stable. Hospital Course: This is a 63 year old female with PMH of COPD, CHFrEF, prior ESBL UTI, chronic hypoxic resp. failure, DM2, paroxysmal afib who presented with acute hypercapnic respiratory failure after losing coverage reportedly of her home BiPAP machine per admission documentation. She was treated with steroids for COPD exacerbation and brief course of antibiotics for a possible L pneumonia noted on presenting imaging. She improved quickly with treatments, discharge back to her home half-way facility was delayed while awaiting authorization of home trilogy. Once this was authorized she was transferred back. Time Spent with Patient Time spent: Greater than 30 minutes Exam Vital Signs (past 8 hours): - 11/01/23 03:50 Fraction of Inspired Oxygen 30 Fraction of Inspired Oxygen 30 SaO2/FiO2 Ratio 332 Oxygen Delivery Method BiPAP Oxygen Flow Rate 2 Narrative Exam Narrative: GENERAL: This is a well-nourished, well-developed patient, in no apparent distress. BiPAP in place. EYES: Pupils equal round and reactive. Extraocular motions intact. ENT: Mucous membranes pink and moist. NEUROLOGIC: Alert, oriented, speech fluent, full upper and lower motor strength, no focal deficits evident. DERMATOLOGIC: No rashes or skin lesions. Objective Labs 10/27/23 04:17 11/01/23 03:33 Labs: Laboratory Results - last 24 hr 11/01/23 03:33 Sodium 137 Potassium 5.1 Chloride 98 Carbon Dioxide 39 H BUN 48 H Creatinine 1.15 H Estimated GFR 54 L BUN/Creatinine Ratio 41.7 H Glucose 205 H Calcium 10.4 H [facility] Medical History PONCE (obstructive sleep apnea) Chronic hypoxemic respiratory failure COPD (chronic obstructive pulmonary disease) DM2 (diabetes mellitus, type 2) HTN (hypertension) Thyroiditis Systolic and diastolic CHF, chronic Obesity Surgical History S/P hernia surgery Family History Mother No pertinent past medical history Father No pertinent past medical history Social History household members: other Smoking Status: Former smoker alcohol intake: former Discharge Plan Discharge Plan Patient Disposition: SNF Transfer to: [facility] and Healthcare Provider Discharge Comment: Patient admitted for COPD exacerbation in setting of no longer having home respiratory equipment. Home trilogy authorized, no medication changes. Discharge orders & Medications Prescriptions: Continued albuterol sulfate 90 mcg/actuation HFA aerosol inhaler 4 puff INHALATION Q4H PRN (Reason: Shortness Of Breath Or Wheezing) levothyroxine 175 mcg tablet 175 mcg PO DAILY potassium chloride 10 mEq tablet extended release 20 meq PO DAILY midodrine 5 mg tablet 10 mg PO BID torsemide 10 mg tablet 20 mg PO BEDTIME bupropion HCl 150 mg tablet sustained-release 12 hr 100 mg PO BEDTIME sennosides [senna] 8.6 mg tablet 17.2 mg PO BEDTIME acetaminophen [Tylenol] 325 mg Tablet 650 mg PO TID trazodone 50 mg tablet 50 mg PO BEDTIME aspirin 81 mg Tablet,Delayed Release (Dr/Ec) 81 mg PO DAILY carvedilol 3.125 mg tablet 3.125 mg PO BID cyanocobalamin (vitamin B-12) 500 mcg Tablet 500 mcg PO DAILY fluoxetine 20 mg Tablet 20 mg PO DAILY gabapentin 300 mg Capsule 300 mg PO BEDTIME montelukast 10 mg Tablet 10 mg PO DAILY nystatin 100,000 unit/gram Powder 1 applic TOPICAL BID PRN (Reason: Rash) insulin lispro [Humalog U-100 Insulin] 100 unit/mL Solution See Protocol SUBCUT TIDWM Protocol: TITRATE PER PROTOCOL Rx Instructions: sliding scale 121-150=2 units; 151-200=4 units; 201-250=6 units; 251-350=10 units; 351- 450=14 units; 451+=16 units ondansetron 4 mg Tablet,Disintegrating 4 mg PO Q8H PRN (Reason: Nausea) fluticasone propionate 50 mcg/actuation [place],Suspension 2 spray INTRANASAL DAILY Rx Instructions: administer into each nostril loratadine 10 mg Tablet 10 mg PO DAILY rosuvastatin 40 mg Tablet 40 mg PO DAILY tiotropium bromide [Spiriva with HandiHaler] 18 mcg Capsule, W/Inhalation Device 1 cap INHALATION DAILY Rx Instructions: puncture 1 cap using device; one dose = 2 inhalations fenofibrate 160 mg Tablet 160 mg PO DAILY budesonide-formoterol 160-4.5 mcg/actuation Hfa Aerosol Inhaler 2 puff INHALATION Q4H PRN (Reason: Wheezing) magnesium oxide 200 mg magnesium Tablet 200 mg PO DAILY albuterol sulfate 2.5 mg /3 mL (0.083 %) solution for nebulization 2.5 mg inhalation Q6H PRN (Reason: wheezing/cough) fluconazole 200 mg tablet 200 mg PO DAILY bisacodyl 10 mg Suppository [address] DAILY PRN (Reason: Constipation) docusate sodium 100 mg Capsule 200 mg PO BID bisacodyl 5 mg Tablet 5 mg PO BEDTIME PRN (Reason: Constipation) ipratropium-albuterol 0.5 mg-3 mg(2.5 mg base)/3 mL Solution For Nebulization 3 ml INHALATION Q4H PRN (Reason: COPD) polyethylene glycol 3350 [Miralax] 17 gram Powder In Packet 17 g PO DAILY prednisone 20 mg Tablet 30 mg PO DAILY insulin lispro 100 unit/mL Insulin Pen 6 unit SUBCUT AC Levemir FlexPen 100 unit/mL (3 mL) Insulin Pen 25 unit SUBCUT BID bupropion HCl 100 mg tablet sustained-release 12 hr 100 mg PO QAM Discharge Health Status Multidrug resistant organism: No MDRO Diet/Activity/Treatments Diet: Diet as Tolerated and Carb-consistent/Diabetic Liquid consistency: Normal/Thin Food texture: Regular Activity: As tolerated, no restrictions Special Rehabilitation Services Reason for rehabilitation: Other Visit Report/Discharge Packet Stand Alone Forms: Patient Portal/API Quality VTE Deep Vein Thrombosis/Pulmonary Embolism Present on Admission: No
[2023-11-01] MEDS: POTASSIUM CHLORIDE 10 MEQ TAB 20 MEQ PO (09:01)
[2023-11-01] MEDS: FLUoxetine 20 MG CAPSULE PO (09:02)
[2023-11-01] MEDS: MONTELUKAST 10 MG TABLET PO (09:02)
[2023-11-01] MEDS: FENOFIBRATE, MICRONIZED 67 MG CAPSULE 201 MG PO (09:04)
[2023-11-01] MEDS: LORATADINE 10 MG TABLET PO (09:06)
[2023-11-01] MEDS: ASPIRIN EC 81 MG TABLET PO (09:06)
[2023-11-01] MEDS: HEPARIN 5,000 UNIT/ML VIAL 5000 UNIT SUBCUT (09:09)
[2023-11-01] MEDS: INSULIN GLARGINE 100 UNIT/ML 3ML PEN 25 UNIT SUBCUT (09:10)
[2023-11-01] MEDS: NYSTATIN POWDER 15GM 1 APPLIC TOP (09:11)
[2023-11-01] MEDS: SODIUM CHLORIDE 0.9% FLUSH 10 ML IV (09:11)
[2023-11-01 11:36] VITALS: PULSE 71; RESP 20; O2SAT 93
--- NOTE | 2023-11-01 12:12 | CM.DPNOTE ---
DC Note Trilogy being delivered later this afternoon according to Miladis at [facility]. Confirmed with MAI pastor that patient will need Trilogy machine when sleeping, not needed waking hours. Patient currently on 3L O2, [facility] aware and O2 available at [facility]. [facility]I Pastor also confirms patient okay to transport via cabulance and bogdan will be left under patient for [facility] staff to utilize. According to Miladis at [facility], w/c van arranged for brass pickler at 1300. No PASRR needed for return of resident. Plan: Discharge back to [facility] H+R via w/c van, trilogy has been secured via [employer] [facility] and being delivered this afternoon to [facility]. NEO
== END 2023-11-01 13:30 | DRG 139 ==
LOC: ED 11:54 → AC 14:22 → ICU 15:15
PROVIDERS: Internal Medicine; Admitting Provider Hospitalist; Emergency Provider Emergency Medicine; Referring Provider Emergency Medicine; Visit Provider Hospitalist
DX: J18.9 Pneumonia, unspecified organism (principal); J96.02 Acute respiratory failure with hypercapnia; J96.21 Acute and chronic respiratory failure with hypoxia; G93.41 Metabolic encephalopathy; J44.1 Chronic obstructive pulmonary disease with (acute) exacerbation; I50.22 Chronic systolic (congestive) heart failure; I13.0 Hypertensive heart and chronic kidney disease with heart failure and stage 1 through stage 4 chronic kidney disease, or unspecified chronic kidney disease; N18.9 Chronic kidney disease, unspecified; I48.0 Paroxysmal atrial fibrillation; I95.9 Hypotension, unspecified; E06.9 Thyroiditis, unspecified; G47.33 Obstructive sleep apnea (adult) (pediatric); E11.22 Type 2 diabetes mellitus with diabetic chronic kidney disease; Z79.4 Long term (current) use of insulin; Z91.198 Patient's noncompliance with other medical treatment and regimen for other reason; Z99.81 Dependence on supplemental oxygen; Z87.891 Personal history of nicotine dependence; Z87.440 Personal history of urinary (tract) infections
CPT/HCPCS: 36415; 36600; 70450; 71045; 80048; 80053; 80305; 80320; 81001; 82550; 82805; 82962; 83605; 83880; 84145; 84146; 84443; 84484; 85025; 85610; 85730; 87040; 87086; 87797; 93005; 93010; 94640; 94660; 94762; 96365; 96367; 99285; 99291; J1644; J1815; J1940; J2185; J2543; J7613

== ENCOUNTER 2024-01-14 01:53 | Emergency (ER) | payer OTHER, MEDICAID, SELFPAY ==
[2023-07-02 15:36] VITALS: RESP 0
[2023-10-24 17:19] VITALS: BMI 49.9
[2023-10-30 10:28] VITALS: PULSE 64
[2023-11-01 03:50] VITALS: RESP 32; O2SAT 94
[2024-01-14] VITALS (46 sets, daily range): BP systolic 82–167; BP diastolic 55–93; PULSE 75–190; RESP 8–38; TEMP 36.3; O2SAT 86–96; BMI 49.1
--- NOTE | 2024-01-14 01:56 | DI.RAD.S_ITS ---
PROCEDURE: XR CHEST 1V INDICATIONS: chest pain TECHNIQUE: One view of the chest was acquired. COMPARISON: [facility], CR, XR CHEST 1V, 06/30/2023, 21:13. [facility], CR, XR CHEST 1V, 08/02/2023, 17:17. [facility], CT, CT CHEST WO CON, 01/14/2024, 3:23. [facility], CR, XR CHEST 1V, 10/24/2023, 12:58. FINDINGS: Surgical changes and devices: None. Lungs and pleura: Mild generalized interstitial prominence can be seen. There is blunting of the left costophrenic angle. Mediastinum: Mediastinal contours appear normal. Heart size is at least moderately enlarged. Atherosclerotic calcification of the aortic arch is noted. Bones and chest wall: No suspicious bony lesions. Age-appropriate bony degenerative changes are seen. Overlying soft tissues appear unremarkable. IMPRESSION: Cardiomegaly with interstitial prominence. CHF is suspected. Blunting of the left costophrenic angle, likely related to a prominent left pericardiac fat pad and atelectasis. Note: No significant discrepancy from the preliminary report. Dictated by: Ronald So M.D. on 01/14/2024 at 8:30 Approved by: Ronald So M.D. on 01/14/2024 at 8:31
--- NOTE | 2024-01-14 01:56 | EKG_ITS ---
[address] [place] [address] Test Date: 2024-01-14 Pat Name: Mary Carmen Jett Department: [facility] Room: Gender: Female Political Aide: MORENO JEWELL : 1960 Requested By: Order Number: [id number] Reading MD: Esteban Gillespie Measurements Intervals [place] Rate: 85 P: 80 OR: 178 QRS: 247 QRSD: 100 T: 40 QT: 424 QTc: 504 Interpretive Statements Sinus rhythm with premature atrial complexes Right superior axis deviation Pulmonary disease pattern Junctional ST depression, probably normal Prolonged QT Electronically Signed On 01-16-2024 14:43:27 PDT by Esteban Gillespie
[2024-01-14] MEDS: ALBUTEROL 2.5 MG/3 ML NEB (ADULT) INH (02:55)
[2024-01-14 03:02] LABS: Alanine Aminotransferase 30 IU/L (<35); Albumin 3.8 g/dL (3.5-5.0); Albumin Globulin Ratio 1.4 (1.0-2.8); Alkaline Phosphatase 57 U/L (38-126); Aspartate Aminotransferase 30 IU/L (14-36); BUN Creatinine Ratio 37.1 (6-22); Bilirubin Total 0.5 mg/dL (0.2-1.3); Blood Urea Nitrogen 65 mg/dL (7-17); Calcium 10.1 mg/dL (8.4-10.2); Chloride 91 mmol/L (98-107); Creatine Kinase 50 U/L (30-135); Estimated Glomerular Filt Rate 33 mL/min (>60); Globulin 2.8 g/dL (1.7-4.1); Glucose 235 mg/dL (80-110); HEMOLYSIS 21 (0-50); Lipase 45 U/L (23-300); Potassium 4.3 mmol/L (3.4-5.1); Sodium 138 mmol/L (137-145); Total Protein 6.6 g/dL (6.3-8.2)
[2024-01-14 03:11] LABS: Carbon Dioxide 43 mmol/L (22-32)
--- NOTE | 2024-01-14 03:11 | ED_ITS ---
HPI - SOB/Dyspnea General Chief Complaint: Shortness of Breath/Dyspnea Stated Complaint: low O2 sat Time Seen by Provider: 01/14/24 01:56 Source: patient and EMS Mode of arrival: EMS Limitations: no limitations History of Present Illness HPI Narrative: 63-year-old female current resident of [facility], history of chronic hypoxia for which she uses 2.5-3 L nasal cannula oxygen as baseline, noted on oxygen at nursing facility to have lower saturations and increased work of breathing. Patient denies chest pain, fevers, chills, cough. No injury trauma falls. Denies pain with urination or frequency of urination. Denies abdominal problem, abdominal pain, nausea, vomiting, loose stools, black or red stools. Denies focal weakness to face arm or leg. Denies focal numbness to face arm or leg. Related Data Home Medications Medication Instructions Recorded Confirmed acetaminophen 325 mg tablet 650 mg PO TID 05/25/22 11/14/23 (Tylenol) aspirin 81 mg tablet,delayed 81 mg PO DAILY 05/25/22 11/14/23 release budesonide-formoterol HFA 160 2 puff inhalation Q4H PRN Wheezing 05/25/22 11/14/23 mcg-4.5 mcg/actuation aerosol inhaler bupropion HCl 150 mg tablet,12 hr 100 mg PO BEDTIME 05/25/22 11/14/23 sustained-release carvedilol 3.125 mg tablet 3.125 mg PO BID 05/25/22 11/14/23 cyanocobalamin (vitamin B-12) 500 500 mcg PO DAILY 05/25/22 11/14/23 mcg tablet fenofibrate 160 mg tablet 160 mg PO DAILY 05/25/22 11/14/23 fluoxetine 20 mg tablet 20 mg PO DAILY 05/25/22 11/14/23 fluticasone propionate 50 2 spray intranasal DAILY 05/25/22 11/14/23 mcg/actuation nasal spray,suspension gabapentin 300 mg capsule 300 mg PO BEDTIME 05/25/22 11/14/23 insulin lispro 100 unit/mL See Protocol SUBCUT TIDWM 05/25/22 11/14/23 subcutaneous solution (Humalog U-100 Insulin) loratadine 10 mg tablet 10 mg PO DAILY 05/25/22 11/14/23 magnesium oxide 200 mg PO DAILY 05/25/22 11/14/23 montelukast 10 mg tablet 10 mg PO DAILY 05/25/22 11/14/23 nystatin 100,000 unit/gram topical 1 applic topical BID PRN Rash 05/25/22 11/14/23 powder ondansetron 4 mg disintegrating 4 mg PO Q8H PRN Nausea 05/25/22 11/14/23 tablet rosuvastatin 40 mg tablet 40 mg PO DAILY 05/25/22 11/14/23 sennosides 8.6 mg tablet (senna) 17.2 mg PO BEDTIME 05/25/22 11/14/23 tiotropium bromide 18 mcg capsule 1 cap inhalation DAILY 05/25/22 11/14/23 with inhalation device (Spiriva with HandiHaler) trazodone 50 mg tablet 50 mg PO BEDTIME 05/25/22 11/14/23 albuterol sulfate 90 mcg/actuation 4 puff inhalation Q4H PRN 08/15/22 11/14/23 aerosol inhaler Shortness Of Breath Or Wheezing levothyroxine 175 mcg tablet 175 mcg PO DAILY 08/15/22 11/14/23 potassium chloride 10 mEq 20 meq PO DAILY 08/15/22 11/14/23 tablet,extended release midodrine 5 mg tablet 10 mg PO BID 05/20/23 11/14/23 torsemide 10 mg tablet 20 mg PO BEDTIME 05/20/23 11/14/23 albuterol sulfate 2.5 mg/3 mL 2.5 mg inhalation Q6H PRN 10/24/23 11/14/23 (0.083 %) solution for nebulization wheezing/cough bisacodyl 5 mg tablet 5 mg PO BEDTIME PRN Constipation 10/24/23 11/14/23 docusate sodium 100 mg capsule 200 mg PO BID PRN Constipation 10/24/23 11/14/23 fluconazole 200 mg tablet 200 mg PO DAILY 10/24/23 11/14/23 insulin detemir U-100 100 unit/mL 25 unit SUBCUT BID 10/24/23 11/14/23 (3 mL) subcutaneous pen (Levemir FlexPen) insulin lispro 100 unit/mL 6 unit SUBCUT AC 10/24/23 11/14/23 subcutaneous pen ipratropium 0.5 mg-albuterol 3 mg 3 ml inhalation Q4H PRN COPD 10/24/23 11/14/23 (2.5 mg base)/3 mL nebulization soln polyethylene glycol 3350 17 gram 17 g PO DAILY 10/24/23 11/14/23 oral powder packet (Miralax) prednisone 20 mg tablet 30 mg PO DAILY 10/24/23 11/14/23 bupropion HCl 100 mg tablet,12 hr 100 mg PO BEDTIME 10/31/23 11/14/23 sustained-release Allergies Allergy/AdvReac Type Severity Reaction Status Date / Time No Known Drug Allergies Allergy Verified 11/14/23 10:36 Review of Systems Review of Systems Narrative: see HPI Patient History Medical History (Updated 01/14/24 @ 06:04 by Judd De La Torre MD) PONCE (obstructive sleep apnea) Chronic hypoxemic respiratory failure COPD (chronic obstructive pulmonary disease) DM2 (diabetes mellitus, type 2) HTN (hypertension) Thyroiditis Systolic and diastolic CHF, chronic Obesity Surgical History S/P hernia surgery Family History Mother No pertinent past medical history Father No pertinent past medical history Social History household members: other Smoking Status: Former smoker alcohol intake: former Smoking Status: Former smoker alcohol intake frequency: other Substance Use Type: does not use Exam Narrative Exam Narrative: GENERAL: Well-developed patient, in mild distress. Morbid obesity, BMI 49 noted. HEAD: Atraumatic. Normocephalic. EYES: Pupils equal round and reactive. Extraocular motions intact. No scleral icterus. No injection or drainage. ENT: Nose without bleeding, purulent drainage. Throat without erythema, tonsillar hypertrophy or exudate. Airway patent. NECK: Trachea midline. Non tender CARDIOVASCULAR: Regular rate and rhythm without murmurs, gallops, or rubs. RESPIRATORY: Decreased breath sounds left base. Clear to auscultation. No wheezes, rales, or rhonchi. GASTROINTESTINAL: Abdomen soft, non-tender, nondistended. EXTREMITIES: No edema or joint tenderness. BACK: Nontender without deformity or crepitance. No flank tenderness. NEURO: AOx3. Motor functions grossly nonfocal SKIN: No rash or erythema of visible areas Initial Vital Signs Initial Vital Signs: Vital Signs Temperature 97.3 F L 01/14/24 01:56 Pulse Rate 90 01/14/24 01:56 Respiratory Rate 23 01/14/24 01:56 Blood Pressure 117/59 L 01/14/24 01:56 Pulse Oximetry 95 01/14/24 01:56 Oxygen Delivery Method Nasal Cannula 01/14/24 01:56 Oxygen Flow Rate 3 01/14/24 01:56 Course Orders Ordered: Discontinued Medications Albuterol (Albuterol 2.5 Mg/3 Ml Neb (Adult)) 2.5 mg INH NOW ONE Stop: 01/14/24 01:58 Last Admin: 01/14/24 02:55 Dose: 2.5 mg Documented By: REMA Diltiazem HCl (Diltiazem 25 Mg/5 Ml Sdv) 10 mg IV NOW ONE Stop: 01/14/24 05:13 Last Admin: 01/14/24 05:20 Dose: 10 mg Documented By: ANIKA Heparin Sodium (Porcine) (Heparin 5,000 Unit/Ml Vial) 5,000 unit IV NOW ONE Stop: 01/14/24 05:17 Last Admin: 01/14/24 05:47 Dose: 5,000 unit Documented By: ANIKA Diltiazem HCl 125 mg/ Sodium (Chloride) 125 mls @ 5 mls/hr IV TITRATE JAY JAY; Protocol Last Titration: 01/14/24 08:07 Dose: 10 mg/hr, 10 mls/hr Documented By: Titration: 01/14/24 08:02 Dose: 10 mg/hr, 10 mls/hr Documented By: Admin: 01/14/24 07:03 Dose: 5 mg/hr, 5 mls/hr Documented By: ANIKA Heparin Sodium/Dextrose (Heparin Drip) 25,000 unit in 500 mls @ 20.049 mls/hr IV CONT JAY JAY; Protocol Last Titration: 01/14/24 08:09 Dose: 8.5 units/kg/hr, 20.049 mls/hr Documented By: ISAI Co-signed By: RB Admin: 01/14/24 05:47 Dose: 8.5 units/kg/hr, 20.049 mls/hr Documented By: ANIKA Co-signed By: JONG Ceftriaxone Sodium 1,000 mg/ (Sodium Chloride) 100 mls @ 200 mls/hr IV NOW ONE Stop: 01/14/24 06:05 Last Infusion: 01/14/24 07:22 Dose: Infused Documented By: Admin: 01/14/24 06:39 Dose: 200 mls/hr Documented By: ANIKA Doxycycline Hyclate 100 mg/ (Sodium Chloride) 100 mls @ 100 mls/hr IV NOW ONE Stop: 01/14/24 06:05 Last Infusion: 01/14/24 08:08 Dose: 100 mls/hr Documented By: Admin: 01/14/24 07:16 Dose: 100 mls/hr Documented By: ANIKA Vital Signs Vital signs: Vital Signs - 8 hr 01/14/24 01:56 01/14/24 01:58 01/14/24 01:58 Temperature 97.3 F L Pulse Rate 90 86 Respiratory Rate 23 28 H Blood Pressure 117/59 L 117/59 L Pulse Oximetry 95 95 Oxygen Delivery Method Nasal Cannula Oxygen Flow Rate 3 Fraction of Inspired Oxygen 01/14/24 02:00 01/14/24 02:14 01/14/24 02:14 Temperature Pulse Rate 81 82 Respiratory Rate 30 H 30 H Blood Pressure 116/80 Pulse Oximetry 95 96 Oxygen Delivery Method Oxygen Flow Rate Fraction of Inspired Oxygen 01/14/24 02:30 01/14/24 02:30 01/14/24 02:57 Temperature Pulse Rate 85 85 Respiratory Rate 29 H 18 Blood Pressure 114/79 Pulse Oximetry 96 95 Oxygen Delivery Method Nasal Cannula Oxygen Flow Rate 2 Fraction of Inspired Oxygen 01/14/24 03:00 01/14/24 03:32 01/14/24 03:33 Temperature Pulse Rate 83 90 Respiratory Rate 26 H Blood Pressure 111/77 Pulse Oximetry 86 L 92 Oxygen Delivery Method Oxygen Flow Rate Fraction of Inspired Oxygen 01/14/24 03:33 01/14/24 03:41 01/14/24 03:41 Temperature Pulse Rate 95 H 140 H Respiratory Rate 30 H Blood Pressure 114/78 Pulse Oximetry 92 96 Oxygen Delivery Method Oxygen Flow Rate Fraction of Inspired Oxygen 01/14/24 03:54 01/14/24 04:00 01/14/24 04:00 Temperature Pulse Rate 79 Respiratory Rate 35 H Blood Pressure 114/78 135/86 Pulse Oximetry 92 Oxygen Delivery Method Oxygen Flow Rate Fraction of Inspired Oxygen 01/14/24 04:30 01/14/24 04:31 01/14/24 04:31 Temperature Pulse Rate 76 75 Respiratory Rate 27 H 28 H Blood Pressure 143/78 H Pulse Oximetry 89 L 89 L Oxygen Delivery Method Oxygen Flow Rate Fraction of Inspired Oxygen 01/14/24 05:00 01/14/24 05:01 01/14/24 05:01 Temperature Pulse Rate 165 H 162 H Respiratory Rate 11 L 12 Blood Pressure 104/61 Pulse Oximetry 91 91 Oxygen Delivery Method Oxygen Flow Rate Fraction of Inspired Oxygen 01/14/24 05:16 01/14/24 05:16 01/14/24 05:20 Temperature Pulse Rate 184 H 190 H Respiratory Rate 26 H Blood Pressure 119/69 Pulse Oximetry 94 Oxygen Delivery Method Oxygen Flow Rate Fraction of Inspired Oxygen 01/14/24 05:20 01/14/24 05:20 01/14/24 05:30 Temperature Pulse Rate 179 H Respiratory Rate 14 Blood Pressure 82/55 L 104/76 Pulse Oximetry 93 Oxygen Delivery Method Oxygen Flow Rate Fraction of Inspired Oxygen 01/14/24 05:30 01/14/24 05:35 01/14/24 05:35 Temperature Pulse Rate 104 H 104 H Respiratory Rate 21 17 Blood Pressure 117/83 Pulse Oximetry 89 L Oxygen Delivery Method Oxygen Flow Rate Fraction of Inspired Oxygen 01/14/24 05:42 01/14/24 05:42 01/14/24 05:45 Temperature Pulse Rate 104 H Respiratory Rate 23 Blood Pressure 112/81 111/78 Pulse Oximetry Oxygen Delivery Method Oxygen Flow Rate Fraction of Inspired Oxygen 01/14/24 05:45 01/14/24 05:50 01/14/24 05:50 Temperature Pulse Rate 104 H 104 H Respiratory Rate 26 H 26 H Blood Pressure 111/79 Pulse Oximetry Oxygen Delivery Method Oxygen Flow Rate Fraction of Inspired Oxygen 01/14/24 05:55 01/14/24 05:55 01/14/24 06:00 Temperature Pulse Rate 104 H Respiratory Rate 28 H Blood Pressure 107/73 114/85 Pulse Oximetry Oxygen Delivery Method Oxygen Flow Rate Fraction of Inspired Oxygen 01/14/24 06:00 Temperature Pulse Rate 104 H Respiratory Rate 25 H Blood Pressure Pulse Oximetry 92 Oxygen Delivery Method Oxygen Flow Rate Fraction of Inspired Oxygen MDM - SOB/Dyspnea Lab Data Attestation: I reviewed the patient's lab results. Lab results narrative: White blood cell count 9800, hemoglobin 13.2, platelets [id number]. Sodium 138, potassium 4.3. Serum CO2 43. BUN 65 with creatinine 1.75. Glucose 235. Troponin 0.235 elevated. BNP 8000 elevated, though has been higher in the past. Respiratory panel negative. 01/14/24 03:09 01/14/24 02:40 Labs: Lab Results 01/14/24 01/14/24 01/14/24 Range/Units 02:40 02:43 03:09 WBC 9.8 (4.5-11.0) X10^3/uL RBC 4.08 (4.0-5.2) X10^6/uL Hgb 13.2 (12.0-16.0) g/dL Hct 41.2 (36-46) % MCV 101.1 H (80-100) fL MCH 32.3 (26-34) PG MCHC 31.9 (30-36) % RDW 16.1 H (11.6-14.8) % Plt Count 168 (150-400) X10^3/uL Neut % (Auto) 73.6 (50-75) % Lymph % (Auto) 17.8 L (25-40) % [place] % (Auto) 7.6 (3-14) % Eos % (Auto) 0.4 L (2-4) % Baso % (Auto) 0.6 (0-2) % Neut # (Auto) 7200 H (4573-4660) /uL Lymph # (Auto) 1700 (5251-7082) /uL [place] # (Auto) 700 (0-900) /uL Eos # (Auto) 0 (0-450) /uL Baso # (Auto) 100 (0-100) /uL APTT (25.1-36.5) SECONDS ABG Sample Site ABG pH (7.35-7.45) ABG pCO2 (35-45) mmHg ABG pO2 (80-100) mmHg ABG HCO3 (23-27) mmol/L ABG Total CO2 (23-27) mmol/L ABG O2 Saturation (95-100) % ABG Base Excess (-2-3) mmol/L Ramon Test O2 Delivery Device FiO2 % % Sodium 138 (137-145) mmol/L Potassium 4.3 (3.4-5.1) mmol/L Chloride 91 L (98-107) mmol/L Carbon Dioxide 43 H* (22-32) mmol/L BUN 65 H (7-17) mg/dL Creatinine 1.75 H (0.52-1.04) mg/dL Estimated GFR 33 L (>60) mL/min BUN/Creatinine Ratio 37.1 H (6-22) Glucose 235 H (80-110) mg/dL Calcium 10.1 (8.4-10.2) mg/dL Total Bilirubin 0.5 (0.2-1.3) mg/dL AST 30 (14-36) IU/L ALT 30 (<35) IU/L Alkaline Phosphatase 57 (38-126) U/L Total Creatine Kinase 50 (30-135) U/L Troponin I 0.234 H* (0.01-0.034) ng/mL NT-Pro-B Natriuret Pep 8370 H (<125) pg/mL Total Protein 6.6 (6.3-8.2) g/dL Albumin 3.8 (3.5-5.0) g/dL Globulin 2.8 (1.7-4.1) g/dL Albumin/Globulin Ratio 1.4 (1.0-2.8) Lipase 45 (23-300) U/L Chlamy pneumoniae PCR Not detected (Not Detect) Adenovirus (PCR) Not detected (Not Detect) B. pertussis DNA (PCR) Not detected (Not Detect) B.parapertussis DNA PCR Not detected (Not Detecte) Coronavirus OC43 (PCR) Not detected (Not Detect) Coronavirus HKU1 (PCR) Not detected (Not Detect) Coronavirus 229E (PCR) Not detected (Not Detect) SARS-CoV-2 (PCR) Not detected (Not Detecte) Coronavirus NL63 (PCR) Not detected (Not Detect) Human Metapneumovir PCR Not detected (Not Detect) Influenza Type A (PCR) Not detected (Not Detect) Influenza Type B (PCR) Not detected (Not Detect) M. pneumoniae (PCR) Not detected (Not Detect) Parainfluenza 1 (PCR) Not detected (Not Detect) Parainfluenza 2 (PCR) Not detected (Not Detect) Parainfluenza 3 (PCR) Not detected (Not Detect) Parainfluenza 4 (PCR) Not detected (Not Detect) RSV (PCR) Not detected (Not Detect) Entero/Rhino (PCR) Not detected (Not Detect) 01/14/24 01/14/24 Range/Units 03:27 06:15 WBC (4.5-11.0) X10^3/uL RBC (4.0-5.2) X10^6/uL Hgb (12.0-16.0) g/dL Hct (36-46) % MCV (80-100) fL MCH (26-34) PG MCHC (30-36) % RDW (11.6-14.8) % Plt Count (150-400) X10^3/uL Neut % (Auto) (50-75) % Lymph % (Auto) (25-40) % [place] % (Auto) (3-14) % Eos % (Auto) (2-4) % Baso % (Auto) (0-2) % Neut # (Auto) (8464-0856) /uL Lymph # (Auto) (0347-1238) /uL [place] # (Auto) (0-900) /uL Eos # (Auto) (0-450) /uL Baso # (Auto) (0-100) /uL APTT 128 H* (25.1-36.5) SECONDS ABG Sample Site Left radial ABG pH 7.33 L (7.35-7.45) ABG pCO2 77.5 H* (35-45) mmHg ABG pO2 88 (80-100) mmHg ABG HCO3 41 H (23-27) mmol/L ABG Total CO2 43 H (23-27) mmol/L ABG O2 Saturation 95 (95-100) % ABG Base Excess 11.8 H (-2-3) mmol/L Ramon Test Positive O2 Delivery Device Cannula FiO2 % 28 % % Sodium (137-145) mmol/L Potassium (3.4-5.1) mmol/L Chloride (98-107) mmol/L Carbon Dioxide (22-32) mmol/L BUN (7-17) mg/dL Creatinine (0.52-1.04) mg/dL Estimated GFR (>60) mL/min BUN/Creatinine Ratio (6-22) Glucose (80-110) mg/dL Calcium (8.4-10.2) mg/dL Total Bilirubin (0.2-1.3) mg/dL AST (14-36) IU/L ALT (<35) IU/L Alkaline Phosphatase (38-126) U/L Total Creatine Kinase (30-135) U/L Troponin I (0.01-0.034) ng/mL NT-Pro-B Natriuret Pep (<125) pg/mL Total Protein (6.3-8.2) g/dL Albumin (3.5-5.0) g/dL Globulin (1.7-4.1) g/dL Albumin/Globulin Ratio (1.0-2.8) Lipase (23-300) U/L Chlamy pneumoniae PCR (Not Detect) Adenovirus (PCR) (Not Detect) B. pertussis DNA (PCR) (Not Detect) B.parapertussis DNA PCR (Not Detecte) Coronavirus OC43 (PCR) (Not Detect) Coronavirus HKU1 (PCR) (Not Detect) Coronavirus 229E (PCR) (Not Detect) SARS-CoV-2 (PCR) (Not Detecte) Coronavirus NL63 (PCR) (Not Detect) Human Metapneumovir PCR (Not Detect) Influenza Type A (PCR) (Not Detect) Influenza Type B (PCR) (Not Detect) M. pneumoniae (PCR) (Not Detect) Parainfluenza 1 (PCR) (Not Detect) Parainfluenza 2 (PCR) (Not Detect) Parainfluenza 3 (PCR) (Not Detect) Parainfluenza 4 (PCR) (Not Detect) RSV (PCR) (Not Detect) Entero/Rhino (PCR) (Not Detect) ECG Data Attestation: I personally reviewed and interpreted this ECG as follows: Interpretation: 0211, Normal sinus rhythm with rate 85, no obvious ST segment elevation or depression changes. PACs noted. WA 178, QRS 100, QTC 504. 0506, repeat EKG due to change in rhythm on monitor. Atrial fibrillation with rapid ventricular response, ventricular rate 156. QRS 116, QTC 448. MDM Narrative Medical decision making narrative: 63-year-old female resident of [facility], chronic hypoxia 2.5-3 L, had low sats at the facility. Arrived by EMS. Denies chest pain. Has been having shortness of breath since yesterday. No leg pain or swelling symptoms. Afebrile, sirs screen negative. EKG without obvious ischemic changes. Troponin elevated, has been elevated in the past. Chest x-ray single view. Impressions: ?Stable pleural parenchymal disease left lower lobe. Cardiomegaly with passive venous congestion. See teleradiology report Serum carbon dioxide 40s noted, history of chronic respiratory failure and CO2 retention, but not usually this high. Will get arterial blood gas. Creatinine elevated further baseline as well, component of BLANCA likely. Creatinine today 1.7, recent months had been 1.15 range. Initial ABG results show pH 7.3, pCO2 77, PaO2 88. Patient has had CO2 retention in the past but usually not quite this high, has been in the 60s in the past. Trial of BiPAP, patient is willing. Patient on BiPAP per Respiratory therapy, tolerated well thus far, current settings 18/7, 30% Fio2, improved saturations 90-94%. We will check repeat arterial blood gas in an hour, RT aware/agrees Respiratory panel negative. Rhythm change on monitor, previously NSR on monitor/EKG, now with atrial fibrillation with rapid ventricular response. Confirmed on EKG, no obvious ST segment elevation or depression changes. IV diltiazem bolus then infusion. Elevated troponin, possible type 2 injury, versus NSTEMI/other, IV heparin bolus and infusion for ACS protocol. 0530, case discussed with hospitalist Dr. Clark here, who agrees for need for higher level of care, lack of in-house Cardiology and Nephrology, advises transfer. We will seek higher levels of care facility Repeat blood gas on BiPAP. PH 7.39, pCO2 65, PaO2 72, bicarbonate 40, base excess 12.5, SpO2 93%. Improved carbon dioxide level, less retention. CT chest noncontrast. Impressions: ?Basilar atelectasis and or infiltrate. Small consolidation left cardiophrenic angle probably pneumonic. No parapneumonic effusion. Cardiomegaly. Calcified coronary artery disease.? See tele radiology report IV infusion diltiazem tolerated, systolic blood pressure 110 range, titrating, ventricular response rate 120s decreasing some. CT chest noncontrast possible infiltrate, could not evaluate with IV contrast due to creatinine 1.7, can not rule out PE by CTA imaging. On BiPAP, will avoid oral meds for now. Blood cultures sent, IV ceftriaxone, IV doxycycline. 0630, case discussed with professor of religious studies [facility] Dr. Roman, accepts patient for transfer to their ICU Critical Care Time Critical Care Time Critical Care Time: Yes Total Critical Care Time: 35 Attestation: The high probability of a clinically significant, sudden or life threatening deterioration of the [cardiopulmonary] system(s) required my full and direct attention, intervention and personal management. Worsening respiratory status, requiring BiPAP airway management, degeneration of heart rate to atrial fibrillation requiring rate control measures, anticoagulation for possible recent heart attack. Transfer coordination to higher level of care. Interpretation of multiple studies imaging and laboratory including repeated blood gas analysis. Transfer to higher level of care due to complexity of multiple cardiopulmonary life-threatening illnesses. The aggregate critical care time was [35] minutes. This time is in addition to time spent performing reported procedures but includes the following: [x] Data Review and interpretation [x] Patient assessment and monitoring of vital signs [x] Documentation [x] Medication orders and management Discharge Plan Departure Patient Disposition: General Acute Hospital Clinical Impression: Dyspnea, Hypoxia, BLANCA (acute kidney injury), Pneumonia, Atrial fibrillation with controlled ventricular rate, History of chronic carbon dioxide retention Prescriptions: No Action albuterol sulfate 90 mcg/actuation HFA aerosol inhaler 4 puff INHALATION Q4H PRN (Reason: Shortness Of Breath Or Wheezing) levothyroxine 175 mcg tablet 175 mcg PO DAILY potassium chloride 10 mEq tablet extended release 20 meq PO DAILY midodrine 5 mg tablet 10 mg PO BID torsemide 10 mg tablet 20 mg PO BEDTIME bupropion HCl 150 mg tablet sustained-release 12 hr 100 mg PO BEDTIME sennosides [senna] 8.6 mg tablet 17.2 mg PO BEDTIME acetaminophen [Tylenol] 325 mg Tablet 650 mg PO TID trazodone 50 mg tablet 50 mg PO BEDTIME aspirin 81 mg Tablet,Delayed Release (Dr/Ec) 81 mg PO DAILY carvedilol 3.125 mg tablet 3.125 mg PO BID cyanocobalamin (vitamin B-12) 500 mcg Tablet 500 mcg PO DAILY fluoxetine 20 mg Tablet 20 mg PO DAILY gabapentin 300 mg Capsule 300 mg PO BEDTIME montelukast 10 mg Tablet 10 mg PO DAILY nystatin 100,000 unit/gram Powder 1 applic TOPICAL BID PRN (Reason: Rash) insulin lispro [Humalog U-100 Insulin] 100 unit/mL Solution See Protocol SUBCUT TIDWM Protocol: TITRATE PER PROTOCOL Rx Instructions: sliding scale 121-150=2 units; 151-200=4 units; 201-250=6 units; 251-350=10 units; 351- 450=14 units; 451+=16 units ondansetron 4 mg Tablet,Disintegrating 4 mg PO Q8H PRN (Reason: Nausea) fluticasone propionate 50 mcg/actuation [place],Suspension 2 spray INTRANASAL DAILY Rx Instructions: administer into each nostril loratadine 10 mg Tablet 10 mg PO DAILY rosuvastatin 40 mg Tablet 40 mg PO DAILY tiotropium bromide [Spiriva with HandiHaler] 18 mcg Capsule, W/Inhalation Device 1 cap INHALATION DAILY Rx Instructions: puncture 1 cap using device; one dose = 2 inhalations fenofibrate 160 mg Tablet 160 mg PO DAILY budesonide-formoterol 160-4.5 mcg/actuation Hfa Aerosol Inhaler 2 puff INHALATION Q4H PRN (Reason: Wheezing) magnesium oxide 200 mg magnesium Tablet 200 mg PO DAILY albuterol sulfate 2.5 mg /3 mL (0.083 %) solution for nebulization 2.5 mg inhalation Q6H PRN (Reason: wheezing/cough) fluconazole 200 mg tablet 200 mg PO DAILY docusate sodium 100 mg Capsule 200 mg PO BID PRN (Reason: Constipation) bisacodyl 5 mg Tablet 5 mg PO BEDTIME PRN (Reason: Constipation) ipratropium-albuterol 0.5 mg-3 mg(2.5 mg base)/3 mL Solution For Nebulization 3 ml INHALATION Q4H PRN (Reason: COPD) polyethylene glycol 3350 [Miralax] 17 gram Powder In Packet 17 g PO DAILY prednisone 20 mg Tablet 30 mg PO DAILY insulin lispro 100 unit/mL Insulin Pen 6 unit SUBCUT AC Levemir FlexPen 100 unit/mL (3 mL) Insulin Pen 25 unit SUBCUT BID bupropion HCl 100 mg tablet sustained-release 12 hr 100 mg PO BEDTIME Referrals: Miscellaneous,Doctor, MD [Primary Care Provider] -
--- NOTE | 2024-01-14 03:14 | DI.CT.S_ITS ---
PROCEDURE: CT CHEST WO CON INDICATIONS: dyspnea, ?pleural effusion left TECHNIQUE: Noncontrast 5 mm thick sections acquired from the pulmonary apices to the posterior costophrenic angles. 1 mm lung window, 5 mm thick coronal and sagittal and 7 mm axial MIP reformats were then acquired. For radiation dose reduction, the following was used: automated exposure control, adjustment of mA and/or kV according to patient size. COMPARISON: [facility], CT, CT CHEST WO CON, 01/19/2023, 14:51. FINDINGS: Image quality: Diagnostic. Lower Neck: No enlarged lymph nodes. Thyroid: The thyroid is not well seen. Axillae: No enlarged lymph nodes. Chest Wall: Unremarkable. Bones: Age-appropriate bony degenerative changes are seen. There is a remote left healed 7th rib fracture. Lungs and Pleura: Mild areas of consolidation can be seen at the lung bases, which are similar to the prior and are attributed to atelectasis. Mild ground-glass opacity can be seen, primarily centrally. There is a trace potential left-sided pleural effusion. Heart: Heart size is at least moderately enlarged. No pericardial effusion. There is moderate coronary artery calcification. Thoracic Vessels: The aorta and pulmonary arteries demonstrate normal size. Mediastinum and Ioana: A stable prominent right paratracheal lymph node is seen, with a preserved, normal appearing fatty hilum. Esophagus: The esophagus is tortuous. No wall thickening. No hiatal hernia. Upper Abdomen: Visualized upper abdomen solid organs and bowel loops appear normal. IMPRESSION: There is at least moderate cardiomegaly. There is mild ground-glass opacity. Please consider CHF. Persistent consolidation is seen at the lung bases, which is attributed to atelectasis. Differential diagnosis includes infiltrate, yet this is considered to be less likely. Trace potential left-sided pleural effusion. Additional findings: Moderate coronary artery calcification Stable prominent right paratracheal lymph node. Remote, healed left 7th rib fracture Note: No significant discrepancy from the preliminary report. Dictated by: Ronald So M.D. on 01/14/2024 at 8:25 Approved by: Ronald So M.D. on 01/14/2024 at 8:30
[2024-01-14 03:15] LABS: Add Manual Diff / Slide Review NO; Basophils Absolute Auto 100 /uL (0-100); Basophils Percent Auto 0.6 % (0-2); Eosinophils Absolute Auto 0 /uL (0-450); Eosinophils Percent Auto 0.4 % (2-4); Hematocrit 41.2 % (36-46); Hemoglobin 13.2 g/dL (12.0-16.0); Lymphocytes Absolute Auto 1700 /uL (1100-4500); Lymphocytes Percent Auto 17.8 % (25-40); Mean Corpuscular HGB Conc 31.9 % (30-36); Mean Corpuscular Hemoglobin 32.3 PG (26-34); Mean Corpuscular Volume 101.1 fL (80-100); Monocytes Absolute Auto 700 /uL (0-900); Monocytes Percent Auto 7.6 % (3-14); Neutrophils Absolute Auto 7200 /uL (1500-7000); Neutrophils Percent Auto 73.6 % (50-75); Platelet Count 168 X10^3/uL (150-400); Red Blood Cell Count 4.08 X10^6/uL (4.0-5.2); Red Cell Distribution Width 16.1 % (11.6-14.8); White Blood Cell Count 9.8 X10^3/uL (4.5-11.0)
[2024-01-14 03:36] LABS: Adenovirus Not Detected (Not Detect); B. parapertussis Not Detected (Not Detecte); Bordetella pertussis Not Detected (Not Detect); Chlamydophila pneumoniae Not Detected (Not Detect); Coronavirus 229E Not Detected (Not Detect); Coronavirus HKU1 Not Detected (Not Detect); Coronavirus NL 63 Not Detected (Not Detect); Coronavirus OC43 Not Detected (Not Detect); Human Metapneumovirus Not Detected (Not Detect); Human Rhinovirus/Enterovirus Not Detected (Not Detect); Influenza A Not Detected (Not Detect); Influenza B Not Detected (Not Detect); Mycoplasma pneumoniae Not Detected (Not Detect); Parainfluenza Virus 1 Not Detected (Not Detect); Parainfluenza Virus 2 Not Detected (Not Detect); Parainfluenza Virus 3 Not Detected (Not Detect); Parainfluenza Virus 4 Not Detected (Not Detect); Respiratory Syncytial Virus Not Detected (Not Detect); SARS- CoV-2 Not Detected (Not Detecte)
[2024-01-14 03:36] LABS: Allen Test for ABG Passed? Positive; Base Excess ABG 11.8 mmol/L (-2-3); Blood Gas Collection Site Left Radial; Delivery System Cannula; HCO3 ABG 41 mmol/L (23-27); Oxygen Saturation ABG 95 % (95-100); PCO2 ABG 77.5 mmHg (35-45); PO2 ABG 88 mmHg (80-100); TCO2 ABG 43 mmol/L (23-27); pH ABG 7.33 (7.35-7.45)
[2024-01-14 03:37] LABS: Troponin I 0.234 ng/mL (0.01-0.034)
[2024-01-14 03:38] LABS: NT-proBNP (BNP-Adult 18+) 8370 pg/mL (<125)
--- NOTE | 2024-01-14 04:59 | EKG_ITS ---
[address] [id number] [place] [address] Test Date: 2024-01-14 Pat Name: Mary Carmen Jett Department: [facility] Room: Gender: Female Team Foreman: : 1960 Requested By: Order Number: [id number] Reading MD: Esteban Gillespie Measurements Intervals [place] Rate: 156 P: GA: QRS: 193 QRSD: 116 T: 114 QT: 278 QTc: 448 Interpretive Statements Critical Test Result: High HR Atrial fibrillation with rapid ventricular response Right superior axis deviation Low voltage QRS Cannot rule out Anterior infarct , age undetermined Marked ST abnormality, possible lateral subendocardial injury Electronically Signed On 01-16-2024 14:43:35 PDT by Esteban Gillespie
[2024-01-14] MEDS: dilTIAZem 25 MG/5 ML SDV 10 MG IV (05:20)
[2024-01-14] MEDS: HEPARIN DRIP 25,000 UNIT/500 ML IV.SOLN 20.049 UNIT IV (05:47)
[2024-01-14] MEDS: HEPARIN 5,000 UNIT/ML VIAL 5000 UNIT IV (05:47)
--- NOTE | 2024-01-14 06:01 | PC.NURSE ---
Pt noted with HR to 190's, Dr De La Torre notified, EKG done. Orders received for IV dilt push and drip. 10mg Diltiazem given slow IVP. HR dropped to 104, SBP 84. Drip held for now. 2nd IV started to R FA, Heparin gtt initiated for elevated troponin. Pt remains on bipap. Drowsy.Arousable to voice.
[2024-01-14] MEDS: cefTRIAXone 1,000 MG in SODIUM CHLORIDE 0.9% 100 ML 200 MG IV (06:39)
[2024-01-14 06:47] LABS: PTT Partial Thromboplastin Tim 128 SECONDS (25.1-36.5)
[2024-01-14] MEDS: dilTIAZem 125 MG in SODIUM CHLORIDE 0.9% 100 ML IV (07:03)
[2024-01-14] MEDS: DOXYCYCLINE 100 MG in SODIUM CHLORIDE 0.9% 100 ML IV (07:16)
--- NOTE | 2024-01-14 07:37 | PC.NURSE ---
In handoff it was reported that at 0615 this morning a critical PTT of 128 came back. However, nursing states the PTT was drawn shortly after a heparin bolus was given. There was concern that the PTT is inaccurate. I then reported this to both Dr. De La Torre and Dr. Castellano who instructed to keep the Heparing gtt running as is and to re check the PTT 4 hours after the initial bolus was given. PTT to be drawn again at 0945.
--- NOTE | 2024-01-15 08:04 | PC.NURSE ---
RN Spoke with Daughter, Roxy, on the phone regarding Mary Carmen's pink eye glasses that were left behind in the department. Daughter instructed RN to call [facility] to see if a worker could come retrieve them from the department. RN then spoke with [facility] and they said they would send someone today to get the eye glasses.
[2024-01-15 09:26] LABS: Allen Test for ABG Passed? Positive; Base Excess ABG 12.5 mmol/L (-2-3); Blood Gas Collection Site Left Radial; Delivery System BiPAP; HCO3 ABG 40 mmol/L (23-27); Oxygen Saturation ABG 93 % (95-100); PCO2 ABG 65.7 mmHg (35-45); PEEP 8; PO2 ABG 72 mmHg (80-100); Pressure Support 17; TCO2 ABG 41 mmol/L (23-27); pH ABG 7.39 (7.35-7.45)
--- NOTE | 2024-01-16 10:03 | PC.NURSE ---
Eyes glasses picked up from from ED by [employer] employee.
== END 2024-01-14 08:32 | disposition short-term general hospital (02) ==
PROVIDERS: Emergency Provider Emergency Medicine
DX: R09.02 Hypoxemia (principal); J18.9 Pneumonia, unspecified organism; R06.00 Dyspnea, unspecified; R07.9 Chest pain, unspecified; I48.20 Chronic atrial fibrillation, unspecified; R79.89 Other specified abnormal findings of blood chemistry; I51.7 Cardiomegaly; Z79.01 Long term (current) use of anticoagulants; Z79.899 Other long term (current) drug therapy; E66.01 Morbid (severe) obesity due to excess calories; Z68.42 Body mass index [BMI] 45.0-49.9, adult; Z11.52 Encounter for screening for COVID-19; N17.9 Acute kidney failure, unspecified
CPT/HCPCS: 36600; 71045; 71250; 80053; 82550; 82805; 83690; 83880; 84484; 85025; 85730; 87040; 87633; 93005; 94640; 94660; 96365; 96366; 96368; 96375; 99284; 99291; 99292; J0696; J1644; J7613

== ENCOUNTER 2024-02-28 07:24 | Inpatient (IN) | payer OTHER, SELFPAY ==
[2023-07-02 15:36] VITALS: RESP 0
[2023-10-24 17:19] VITALS: BMI 49.9
[2024-01-14 03:54] VITALS: PULSE 78; RESP 24; O2SAT 92
[2024-02-28] VITALS (74 sets, daily range): BP systolic 72–172; BP diastolic 43–138; PULSE 56–171; RESP 20–32; TEMP 30–37.4; O2SAT 81–98; BMI 44.9
--- NOTE | 2024-02-28 07:26 | DI.RAD.S_ITS ---
PROCEDURE: XR CHEST 1V INDICATIONS: SOB TECHNIQUE: One view of the chest was acquired. COMPARISON: [facility], , XR CHEST 1V, 01/14/2024, 1:54. FINDINGS: Surgical changes and devices: None. Lungs and pleura: Unchanged pulmonary density, left lung base. No pleural effusions or pneumothorax. Mediastinum: Mediastinal contours appear normal. Unchanged cardiomegaly. Bones and chest wall: No suspicious bony lesions. Overlying soft tissues appear unremarkable. IMPRESSION: Unchanged cardiomegaly, unchanged pulmonary process with density in the left lung base. Comment: Final report is concordant with preliminary interpretation provided by [facility]. Dictated by: Hadley Brunner M.D. on 02/28/2024 at 8:08 Approved by: Hadley Brunner M.D. on 02/28/2024 at 8:09
--- NOTE | 2024-02-28 07:29 | ED_ITS ---
HPI - General Adult General Chief complaint: Shortness of Breath/Dyspnea Stated complaint: SOB Time Seen by Provider: 02/28/24 07:24 Source: EMS Mode of arrival: EMS Limitations: altered mental status History of Present Illness HPI narrative: Patient was a 63-year-old female. According to her S medical history she was in insulin-dependent diabetic, COPD, hypothyroid, has a diagnosis of heart failure he was brought in by EMS for evaluation of shortness of breath. Per report by EMS the patient was found to be off of her BiPAP machine sometime in the middle of the night by the staff at the nursing facility where she lives. She was found to be hypoxic into the low to mid 80s. She was placed on BiPAP. Upon arrival here in the emergency department patient was unable to provide any HPI review of systems. She was arousable but very somnolent. She was on BiPAP. Satting in the mid 80s. Related Data Home Medications Medication Instructions Recorded Confirmed acetaminophen 325 mg tablet 650 mg PO TID 05/25/22 11/14/23 (Tylenol) aspirin 81 mg tablet,delayed 81 mg PO DAILY 05/25/22 11/14/23 release budesonide-formoterol HFA 160 2 puff inhalation Q4H PRN Wheezing 05/25/22 11/14/23 mcg-4.5 mcg/actuation aerosol inhaler bupropion HCl 150 mg tablet,12 hr 100 mg PO BEDTIME 05/25/22 11/14/23 sustained-release carvedilol 3.125 mg tablet 3.125 mg PO BID 05/25/22 11/14/23 cyanocobalamin (vitamin B-12) 500 500 mcg PO DAILY 05/25/22 11/14/23 mcg tablet fenofibrate 160 mg tablet 160 mg PO DAILY 05/25/22 11/14/23 fluoxetine 20 mg tablet 20 mg PO DAILY 05/25/22 11/14/23 fluticasone propionate 50 2 spray intranasal DAILY 05/25/22 11/14/23 mcg/actuation nasal spray,suspension gabapentin 300 mg capsule 300 mg PO BEDTIME 05/25/22 11/14/23 insulin lispro 100 unit/mL See Protocol SUBCUT TIDWM 05/25/22 11/14/23 subcutaneous solution (Humalog U-100 Insulin) loratadine 10 mg tablet 10 mg PO DAILY 05/25/22 11/14/23 magnesium oxide 200 mg PO DAILY 05/25/22 11/14/23 montelukast 10 mg tablet 10 mg PO DAILY 05/25/22 11/14/23 nystatin 100,000 unit/gram topical 1 applic topical BID PRN Rash 05/25/22 11/14/23 powder ondansetron 4 mg disintegrating 4 mg PO Q8H PRN Nausea 05/25/22 11/14/23 tablet rosuvastatin 40 mg tablet 40 mg PO DAILY 05/25/22 11/14/23 sennosides 8.6 mg tablet (senna) 17.2 mg PO BEDTIME 05/25/22 11/14/23 tiotropium bromide 18 mcg capsule 1 cap inhalation DAILY 05/25/22 11/14/23 with inhalation device (Spiriva with HandiHaler) trazodone 50 mg tablet 50 mg PO BEDTIME 05/25/22 11/14/23 albuterol sulfate 90 mcg/actuation 4 puff inhalation Q4H PRN 08/15/22 11/14/23 aerosol inhaler Shortness Of Breath Or Wheezing levothyroxine 175 mcg tablet 175 mcg PO DAILY 08/15/22 11/14/23 potassium chloride 10 mEq 20 meq PO DAILY 08/15/22 11/14/23 tablet,extended release midodrine 5 mg tablet 10 mg PO BID 05/20/23 11/14/23 torsemide 10 mg tablet 20 mg PO BEDTIME 05/20/23 11/14/23 albuterol sulfate 2.5 mg/3 mL 2.5 mg inhalation Q6H PRN 10/24/23 11/14/23 (0.083 %) solution for nebulization wheezing/cough bisacodyl 5 mg tablet 5 mg PO BEDTIME PRN Constipation 10/24/23 11/14/23 docusate sodium 100 mg capsule 200 mg PO BID PRN Constipation 10/24/23 11/14/23 fluconazole 200 mg tablet 200 mg PO DAILY 10/24/23 11/14/23 insulin detemir U-100 100 unit/mL 25 unit SUBCUT BID 10/24/23 11/14/23 (3 mL) subcutaneous pen (Levemir FlexPen) insulin lispro 100 unit/mL 6 unit SUBCUT AC 10/24/23 11/14/23 subcutaneous pen ipratropium 0.5 mg-albuterol 3 mg 3 ml inhalation Q4H PRN COPD 10/24/23 11/14/23 (2.5 mg base)/3 mL nebulization soln polyethylene glycol 3350 17 gram 17 g PO DAILY 10/24/23 11/14/23 oral powder packet (Miralax) bupropion HCl 100 mg tablet,12 hr 100 mg PO BEDTIME 10/31/23 11/14/23 sustained-release Previous Rx's Medication Instructions Recorded prednisone 10 mg tablet 10 mg PO DIRECTED #26 tabs 02/13/24 Allergies Allergy/AdvReac Type Severity Reaction Status Date / Time No Known Drug Allergies Allergy Verified 02/13/24 11:14 Review of Systems Review of Systems ROS Unobtainable: Unobtainable due to mental status/LOC Patient History Medical History Chronic hypercapnic respiratory failure PONCE (obstructive sleep apnea) Chronic hypoxemic respiratory failure COPD (chronic obstructive pulmonary disease) DM2 (diabetes mellitus, type 2) HTN (hypertension) Thyroiditis Systolic and diastolic CHF, chronic Obesity Surgical History S/P hernia surgery Family History Mother No pertinent past medical history Father No pertinent past medical history Social History household members: other Smoking Status: Former smoker alcohol intake: former Smoking Status: Former smoker alcohol intake frequency: other Exam Initial Vital Signs Initial Vital Signs: Vital Signs Pulse Rate 73 02/28/24 07:29 Pulse Oximetry 83 L 02/28/24 07:29 Oxygen Delivery Method BiPAP 02/28/24 07:29 Const General: ill appearing HENMT Head: normal to inspection and normocephalic Resp Effort & Inspection: labored, respiratory distress, no retractions and tachypneic Auscultation: clear to auscultation bilaterally Cardio Rate: regular rate Rhythm: regular rhythm GI Inspection: normal to inspection and non-distended Neuro Other: Patient is arousable to stimulus Extrem General: capillary refill normal Course Orders Ordered: ED Orders 02/28/24 07:18 Complete Blood Count AUTO DIFF Stat Comprehensive Metabolic Panel Stat Lactate (Lactic Acid) Stat Lipase Stat Magnesium Stat NT-proBNP (BNP-Adult 18+) Stat Procalcitonin Stat Thyroid Stimulating Hormone Stat Troponin & CK Cardiac Panel Stat 02/28/24 07:26 XR chest 1V Stat ABG [Arterial Blood Gas] STAT EKG-12 Lead Stat RT Consult Eval and Treat Now 02/28/24 07:32 Respiratory Panel (Film Array) Stat 02/28/24 07:50 Ammonia (NH3) Stat 02/28/24 08:25 Blood Culture Stat 02/28/24 09:33 Troponin & CK Cardiac Panel Stat 02/28/24 10:41 Urinalysis and Microscopic Stat Urine Culture Stat Sodium Chloride (Normal Saline 0.9%) 1,000 mls @ 50 mls/hr IV CONT JAY JAY Last Admin: 02/28/24 08:00 Dose: 50 mls/hr Documented By: CTS Discontinued Medications Albuterol (Albuterol 2.5 Mg/3 Ml Neb (Adult)) 5 mg INH NOW ONE Stop: 02/28/24 07:38 Last Admin: 02/28/24 10:19 Dose: 5 mg Documented By: SAT Dextrose (Dextrose 50 % In Water 25 Gm/50 Ml Syringe) 25 gm IV NOW ONE Stop: 02/28/24 07:57 Last Admin: 02/28/24 08:11 Dose: 12.5 gm Documented By: CTS Furosemide (Furosemide 40 Mg/4 Ml Vial) 40 mg IV NOW ONE Stop: 02/28/24 07:38 Last Admin: 02/28/24 08:00 Dose: 40 mg Documented By: CTS Ceftriaxone Sodium 1,000 mg/ (Sodium Chloride) 100 mls @ 200 mls/hr IV NOW ONE Stop: 02/28/24 07:38 Last Infusion: 02/28/24 09:19 Dose: Infused Documented By: Admin: 02/28/24 08:22 Dose: 200 mls/hr Documented By: CTS Meropenem 500 mg/ Sodium (Chloride) 100 mls @ 200 mls/hr IV NOW ONE Stop: 02/28/24 09:17 Last Infusion: 02/28/24 10:20 Dose: Infused Documented By: Admin: 02/28/24 09:26 Dose: 200 mls/hr Documented By: CTS Methylprednisolone (Methylprednisolone 125 Mg/2 Ml Vial) 125 mg IV NOW ONE Stop: 02/28/24 07:38 Last Admin: 02/28/24 08:00 Dose: 125 mg Documented By: CTS Vital Signs Vital signs: Vital Signs - 8 hr 02/28/24 07:29 02/28/24 07:30 02/28/24 07:30 Temperature Pulse Rate 73 73 Respiratory Rate Blood Pressure 96/61 Pulse Oximetry 83 L 81 L Oxygen Delivery Method BiPAP BiPAP Fraction of Inspired Oxygen 40 02/28/24 07:34 02/28/24 07:36 02/28/24 07:36 Temperature 99.3 F Pulse Rate 72 75 Respiratory Rate 20 30 H Blood Pressure 96/61 117/56 L Pulse Oximetry 97 93 Oxygen Delivery Method CPAP BiPAP Fraction of Inspired Oxygen 02/28/24 07:44 02/28/24 07:44 02/28/24 08:00 Temperature Pulse Rate 73 71 Respiratory Rate 30 H 28 H Blood Pressure 96/61 Pulse Oximetry 95 Oxygen Delivery Method BiPAP Fraction of Inspired Oxygen 02/28/24 08:10 02/28/24 08:10 02/28/24 08:20 Temperature Pulse Rate 68 Respiratory Rate 26 H Blood Pressure 80/53 L 115/76 Pulse Oximetry 94 Oxygen Delivery Method Fraction of Inspired Oxygen 02/28/24 08:20 02/28/24 08:25 02/28/24 08:25 Temperature Pulse Rate 67 66 Respiratory Rate 27 H 26 H Blood Pressure 107/64 Pulse Oximetry 90 L 95 Oxygen Delivery Method Fraction of Inspired Oxygen 02/28/24 08:30 02/28/24 08:30 02/28/24 08:35 Temperature Pulse Rate 66 65 Respiratory Rate 26 H 26 H Blood Pressure 112/58 L Pulse Oximetry 94 94 Oxygen Delivery Method Fraction of Inspired Oxygen 02/28/24 08:35 02/28/24 08:40 02/28/24 08:40 Temperature Pulse Rate 65 Respiratory Rate 29 H Blood Pressure 110/59 L 111/58 L Pulse Oximetry 98 Oxygen Delivery Method Fraction of Inspired Oxygen 02/28/24 08:50 02/28/24 08:50 02/28/24 09:00 Temperature Pulse Rate 68 Respiratory Rate 26 H Blood Pressure 119/68 109/63 Pulse Oximetry 93 Oxygen Delivery Method Fraction of Inspired Oxygen 02/28/24 09:00 02/28/24 09:10 02/28/24 09:10 Temperature Pulse Rate 66 64 Respiratory Rate 21 27 H Blood Pressure 119/56 L Pulse Oximetry 89 L 87 L Oxygen Delivery Method Fraction of Inspired Oxygen 02/28/24 09:15 02/28/24 09:15 02/28/24 09:30 Temperature Pulse Rate 63 Respiratory Rate 26 H Blood Pressure 99/55 L 84/49 L Pulse Oximetry 95 Oxygen Delivery Method Fraction of Inspired Oxygen 02/28/24 09:30 02/28/24 09:45 02/28/24 09:45 Temperature Pulse Rate 63 63 Respiratory Rate 26 H 26 H Blood Pressure 83/50 L Pulse Oximetry 96 96 Oxygen Delivery Method Fraction of Inspired Oxygen 02/28/24 10:00 02/28/24 10:00 02/28/24 10:15 Temperature Pulse Rate 63 Respiratory Rate 26 H Blood Pressure 86/51 L 106/52 L Pulse Oximetry 95 Oxygen Delivery Method Fraction of Inspired Oxygen 02/28/24 10:15 02/28/24 10:28 02/28/24 10:30 Temperature Pulse Rate 64 67 Respiratory Rate 26 H 26 H Blood Pressure 113/59 L Pulse Oximetry 95 93 Oxygen Delivery Method BiPAP Fraction of Inspired Oxygen 40 02/28/24 10:30 02/28/24 10:45 02/28/24 10:45 Temperature Pulse Rate 65 73 Respiratory Rate 26 H 27 H Blood Pressure 98/54 L Pulse Oximetry 94 91 Oxygen Delivery Method Fraction of Inspired Oxygen 02/28/24 11:00 02/28/24 11:00 02/28/24 11:08 Temperature Pulse Rate 67 Respiratory Rate 26 H Blood Pressure 87/49 L 95/56 L Pulse Oximetry 91 Oxygen Delivery Method Fraction of Inspired Oxygen 02/28/24 11:08 Temperature Pulse Rate 67 Respiratory Rate 29 H Blood Pressure Pulse Oximetry 90 L Oxygen Delivery Method Fraction of Inspired Oxygen Medical Decision Making Medical Records Medical records reviewed: Yes I reviewed the patient's medical records. Lab Data Lab results reviewed: Yes I reviewed the patient's lab results. 02/28/24 07:18 02/28/24 07:18 Labs: Lab Results 02/28/24 02/28/24 02/28/24 Range/Units 07:18 07:32 07:50 WBC 13.0 H (4.5-11.0) X10^3/uL RBC 4.30 (4.0-5.2) X10^6/uL Hgb 14.4 (12.0-16.0) g/dL Hct 45.0 (36-46) % MCV 104.8 H (80-100) fL MCH 33.4 (26-34) PG MCHC 31.9 (30-36) % RDW 17.7 H (11.6-14.8) % Plt Count 307 (150-400) X10^3/uL Neut % (Auto) 73.2 (50-75) % Lymph % (Auto) 17.1 L (25-40) % [place] % (Auto) 8.0 (3-14) % Eos % (Auto) 0.7 L (2-4) % Baso % (Auto) 1.0 (0-2) % Neut # (Auto) 9500 H (1884-5021) /uL Lymph # (Auto) 2200 (2140-5996) /uL [place] # (Auto) 1000 H (0-900) /uL Eos # (Auto) 100 (0-450) /uL Baso # (Auto) 100 (0-100) /uL ABG Sample Site ABG pH ABG pCO2 ABG pO2 ABG HCO3 ABG Total CO2 ABG O2 Saturation ABG Base Excess [place] Test Respiration Rate O2 Delivery Device Oxygen Liter Flow Mode of Support FiO2 % Tidal Volume Pressure Support PEEP or CPAP Sodium 143 (137-145) mmol/L Potassium 4.2 (3.4-5.1) mmol/L Chloride 98 (98-107) mmol/L Carbon Dioxide 36 H (22-32) mmol/L BUN 56 H (7-17) mg/dL Creatinine 2.28 H (0.52-1.04) mg/dL Estimated GFR 24 L (>60) mL/min BUN/Creatinine Ratio 24.6 H (6-22) Glucose 75 L (80-110) mg/dL Lactate 1.3 (0.7-2.1) mmol/L Calcium 10.3 H (8.4-10.2) mg/dL Magnesium 2.7 H (1.6-2.3) mg/dL Total Bilirubin 0.6 (0.2-1.3) mg/dL AST 158 H (14-36) IU/L ALT 84 H (<35) IU/L Alkaline Phosphatase 43 (38-126) U/L Ammonia < 9 L (9-30) umol/L Total Creatine Kinase 84 (30-135) U/L Troponin I 0.122 H* (0.01-0.034) ng/mL NT-Pro-B Natriuret Pep 50928 H (<125) pg/mL Total Protein 7.8 (6.3-8.2) g/dL Albumin 4.2 (3.5-5.0) g/dL Globulin 3.6 (1.7-4.1) g/dL Albumin/Globulin Ratio 1.2 (1.0-2.8) Lipase 28 (23-300) U/L Procalcitonin 0.345 (<0.5) ng/mL TSH 1.40 (0.47-4.68) uIU/mL Urine Color Urine Appearance Urine pH (4.5-8.0) Ur Specific [place] (1.000-1.035) Urine Protein (Negative) Urine Glucose (UA) (Negative) g/dL Urine Ketones (NEGATIVE) Urine Occult Blood (Negative) Urine Nitrate (Negative) Urine Bilirubin (NEGATIVE) Urine Urobilinogen (0.2) E.U./dL Ur Leukocyte Esterase (NEGATIVE) Urine RBC (0-5/HPF) Urine WBC (0-5/HPF) Ur Squamous Epith Cells (0-5/HPF) Urine Bacteria (None) Ur Culture Indicated? Vol Urine Centrifuged Chlamy pneumoniae PCR Not detected (Not Detect) Adenovirus (PCR) Not detected (Not Detect) B. pertussis DNA (PCR) Not detected (Not Detect) B.parapertussis DNA PCR Not detected (Not Detecte) Coronavirus OC43 (PCR) Not detected (Not Detect) Coronavirus HKU1 (PCR) Not detected (Not Detect) Coronavirus 229E (PCR) Not detected (Not Detect) SARS-CoV-2 (PCR) Not detected (Not Detecte) Coronavirus NL63 (PCR) Not detected (Not Detect) Human Metapneumovir PCR Not detected (Not Detect) Influenza Type A (PCR) Not detected (Not Detect) Influenza Type B (PCR) Not detected (Not Detect) M. pneumoniae (PCR) Not detected (Not Detect) Parainfluenza 1 (PCR) Not detected (Not Detect) Parainfluenza 2 (PCR) Not detected (Not Detect) Parainfluenza 3 (PCR) Not detected (Not Detect) Parainfluenza 4 (PCR) Not detected (Not Detect) RSV (PCR) Not detected (Not Detect) Entero/Rhino (PCR) Not detected (Not Detect) 02/28/24 02/28/24 02/28/24 Range/Units 08:03 08:03 08:03 WBC (4.5-11.0) X10^3/uL RBC (4.0-5.2) X10^6/uL Hgb (12.0-16.0) g/dL Hct (36-46) % MCV (80-100) fL MCH (26-34) PG MCHC (30-36) % RDW (11.6-14.8) % Plt Count (150-400) X10^3/uL Neut % (Auto) (50-75) % Lymph % (Auto) (25-40) % [place] % (Auto) (3-14) % Eos % (Auto) (2-4) % Baso % (Auto) (0-2) % Neut # (Auto) (3093-8668) /uL Lymph # (Auto) (2429-6093) /uL [place] # (Auto) (0-900) /uL Eos # (Auto) (0-450) /uL Baso # (Auto) (0-100) /uL ABG Sample Site Cancelled Left radial ABG pH Cancelled 7.30 L ABG pCO2 Cancelled ABG pO2 ABG HCO3 ABG Total CO2 ABG O2 Saturation ABG Base Excess [place] Test Respiration Rate O2 Delivery Device Oxygen Liter Flow Mode of Support FiO2 % Tidal Volume Pressure Support PEEP or CPAP Sodium (137-145) mmol/L Potassium (3.4-5.1) mmol/L Chloride (98-107) mmol/L Carbon Dioxide (22-32) mmol/L BUN (7-17) mg/dL Creatinine (0.52-1.04) mg/dL Estimated GFR (>60) mL/min BUN/Creatinine Ratio (6-22) Glucose (80-110) mg/dL Lactate (0.7-2.1) mmol/L Calcium (8.4-10.2) mg/dL Magnesium (1.6-2.3) mg/dL Total Bilirubin (0.2-1.3) mg/dL AST (14-36) IU/L ALT (<35) IU/L Alkaline Phosphatase (38-126) U/L Ammonia (9-30) umol/L Total Creatine Kinase (30-135) U/L Troponin I (0.01-0.034) ng/mL NT-Pro-B Natriuret Pep (<125) pg/mL Total Protein (6.3-8.2) g/dL Albumin (3.5-5.0) g/dL Globulin (1.7-4.1) g/dL Albumin/Globulin Ratio (1.0-2.8) Lipase (23-300) U/L Procalcitonin (<0.5) ng/mL TSH (0.47-4.68) uIU/mL Urine Color Urine Appearance Urine pH (4.5-8.0) Ur Specific [place] (1.000-1.035) Urine Protein (Negative) Urine Glucose (UA) (Negative) g/dL Urine Ketones (NEGATIVE) Urine Occult Blood (Negative) Urine Nitrate (Negative) Urine Bilirubin (NEGATIVE) Urine Urobilinogen (0.2) E.U./dL Ur Leukocyte Esterase (NEGATIVE) Urine RBC (0-5/HPF) Urine WBC (0-5/HPF) Ur Squamous Epith Cells (0-5/HPF) Urine Bacteria (None) Ur Culture Indicated? Vol Urine Centrifuged Chlamy pneumoniae PCR (Not Detect) Adenovirus (PCR) (Not Detect) B. pertussis DNA (PCR) (Not Detect) B.parapertussis DNA PCR (Not Detecte) Coronavirus OC43 (PCR) (Not Detect) Coronavirus HKU1 (PCR) (Not Detect) Coronavirus 229E (PCR) (Not Detect) SARS-CoV-2 (PCR) (Not Detecte) Coronavirus NL63 (PCR) (Not Detect) Human Metapneumovir PCR (Not Detect) Influenza Type A (PCR) (Not Detect) Influenza Type B (PCR) (Not Detect) M. pneumoniae (PCR) (Not Detect) Parainfluenza 1 (PCR) (Not Detect) Parainfluenza 2 (PCR) (Not Detect) Parainfluenza 3 (PCR) (Not Detect) Parainfluenza 4 (PCR) (Not Detect) RSV (PCR) (Not Detect) Entero/Rhino (PCR) (Not Detect) 02/28/24 02/28/24 02/28/24 Range/Units 08:03 08:03 08:03 WBC (4.5-11.0) X10^3/uL RBC (4.0-5.2) X10^6/uL Hgb (12.0-16.0) g/dL Hct (36-46) % MCV (80-100) fL MCH (26-34) PG MCHC (30-36) % RDW (11.6-14.8) % Plt Count (150-400) X10^3/uL Neut % (Auto) (50-75) % Lymph % (Auto) (25-40) % [place] % (Auto) (3-14) % Eos % (Auto) (2-4) % Baso % (Auto) (0-2) % Neut # (Auto) (3649-4165) /uL Lymph # (Auto) (1335-7725) /uL [place] # (Auto) (0-900) /uL Eos # (Auto) (0-450) /uL Baso # (Auto) (0-100) /uL ABG Sample Site ABG pH ABG pCO2 66.2 H* ABG pO2 Cancelled 66 L ABG HCO3 Cancelled 33 H ABG Total CO2 Cancelled ABG O2 Saturation ABG Base Excess [place] Test Respiration Rate O2 Delivery Device Oxygen Liter Flow Mode of Support FiO2 % Tidal Volume Pressure Support PEEP or CPAP Sodium (137-145) mmol/L Potassium (3.4-5.1) mmol/L Chloride (98-107) mmol/L Carbon Dioxide (22-32) mmol/L BUN (7-17) mg/dL Creatinine (0.52-1.04) mg/dL Estimated GFR (>60) mL/min BUN/Creatinine Ratio (6-22) Glucose (80-110) mg/dL Lactate (0.7-2.1) mmol/L Calcium (8.4-10.2) mg/dL Magnesium (1.6-2.3) mg/dL Total Bilirubin (0.2-1.3) mg/dL AST (14-36) IU/L ALT (<35) IU/L Alkaline Phosphatase (38-126) U/L Ammonia (9-30) umol/L Total Creatine Kinase (30-135) U/L Troponin I (0.01-0.034) ng/mL NT-Pro-B Natriuret Pep (<125) pg/mL Total Protein (6.3-8.2) g/dL Albumin (3.5-5.0) g/dL Globulin (1.7-4.1) g/dL Albumin/Globulin Ratio (1.0-2.8) Lipase (23-300) U/L Procalcitonin (<0.5) ng/mL TSH (0.47-4.68) uIU/mL Urine Color Urine Appearance Urine pH (4.5-8.0) Ur Specific [place] (1.000-1.035) Urine Protein (Negative) Urine Glucose (UA) (Negative) g/dL Urine Ketones (NEGATIVE) Urine Occult Blood (Negative) Urine Nitrate (Negative) Urine Bilirubin (NEGATIVE) Urine Urobilinogen (0.2) E.U./dL Ur Leukocyte Esterase (NEGATIVE) Urine RBC (0-5/HPF) Urine WBC (0-5/HPF) Ur Squamous Epith Cells (0-5/HPF) Urine Bacteria (None) Ur Culture Indicated? Vol Urine Centrifuged Chlamy pneumoniae PCR (Not Detect) Adenovirus (PCR) (Not Detect) B. pertussis DNA (PCR) (Not Detect) B.parapertussis DNA PCR (Not Detecte) Coronavirus OC43 (PCR) (Not Detect) Coronavirus HKU1 (PCR) (Not Detect) Coronavirus 229E (PCR) (Not Detect) SARS-CoV-2 (PCR) (Not Detecte) Coronavirus NL63 (PCR) (Not Detect) Human Metapneumovir PCR (Not Detect) Influenza Type A (PCR) (Not Detect) Influenza Type B (PCR) (Not Detect) M. pneumoniae (PCR) (Not Detect) Parainfluenza 1 (PCR) (Not Detect) Parainfluenza 2 (PCR) (Not Detect) Parainfluenza 3 (PCR) (Not Detect) Parainfluenza 4 (PCR) (Not Detect) RSV (PCR) (Not Detect) Entero/Rhino (PCR) (Not Detect) 02/28/24 02/28/24 02/28/24 Range/Units 08:03 08:03 08:03 WBC (4.5-11.0) X10^3/uL RBC (4.0-5.2) X10^6/uL Hgb (12.0-16.0) g/dL Hct (36-46) % MCV (80-100) fL MCH (26-34) PG MCHC (30-36) % RDW (11.6-14.8) % Plt Count (150-400) X10^3/uL Neut % (Auto) (50-75) % Lymph % (Auto) (25-40) % [place] % (Auto) (3-14) % Eos % (Auto) (2-4) % Baso % (Auto) (0-2) % Neut # (Auto) (4499-0602) /uL Lymph # (Auto) (4784-8562) /uL [place] # (Auto) (0-900) /uL Eos # (Auto) (0-450) /uL Baso # (Auto) (0-100) /uL ABG Sample Site ABG pH ABG pCO2 ABG pO2 ABG HCO3 ABG Total CO2 32 H ABG O2 Saturation Cancelled 90 L ABG Base Excess Cancelled 4.0 H [place] Test Cancelled Respiration Rate O2 Delivery Device Oxygen Liter Flow Mode of Support FiO2 % Tidal Volume Pressure Support PEEP or CPAP Sodium (137-145) mmol/L Potassium (3.4-5.1) mmol/L Chloride (98-107) mmol/L Carbon Dioxide (22-32) mmol/L BUN (7-17) mg/dL Creatinine (0.52-1.04) mg/dL Estimated GFR (>60) mL/min BUN/Creatinine Ratio (6-22) Glucose (80-110) mg/dL Lactate (0.7-2.1) mmol/L Calcium (8.4-10.2) mg/dL Magnesium (1.6-2.3) mg/dL Total Bilirubin (0.2-1.3) mg/dL AST (14-36) IU/L ALT (<35) IU/L Alkaline Phosphatase (38-126) U/L Ammonia (9-30) umol/L Total Creatine Kinase (30-135) U/L Troponin I (0.01-0.034) ng/mL NT-Pro-B Natriuret Pep (<125) pg/mL Total Protein (6.3-8.2) g/dL Albumin (3.5-5.0) g/dL Globulin (1.7-4.1) g/dL Albumin/Globulin Ratio (1.0-2.8) Lipase (23-300) U/L Procalcitonin (<0.5) ng/mL TSH (0.47-4.68) uIU/mL Urine Color Urine Appearance Urine pH (4.5-8.0) Ur Specific [place] (1.000-1.035) Urine Protein (Negative) Urine Glucose (UA) (Negative) g/dL Urine Ketones (NEGATIVE) Urine Occult Blood (Negative) Urine Nitrate (Negative) Urine Bilirubin (NEGATIVE) Urine Urobilinogen (0.2) E.U./dL Ur Leukocyte Esterase (NEGATIVE) Urine RBC (0-5/HPF) Urine WBC (0-5/HPF) Ur Squamous Epith Cells (0-5/HPF) Urine Bacteria (None) Ur Culture Indicated? Vol Urine Centrifuged Chlamy pneumoniae PCR (Not Detect) Adenovirus (PCR) (Not Detect) B. pertussis DNA (PCR) (Not Detect) B.parapertussis DNA PCR (Not Detecte) Coronavirus OC43 (PCR) (Not Detect) Coronavirus HKU1 (PCR) (Not Detect) Coronavirus 229E (PCR) (Not Detect) SARS-CoV-2 (PCR) (Not Detecte) Coronavirus NL63 (PCR) (Not Detect) Human Metapneumovir PCR (Not Detect) Influenza Type A (PCR) (Not Detect) Influenza Type B (PCR) (Not Detect) M. pneumoniae (PCR) (Not Detect) Parainfluenza 1 (PCR) (Not Detect) Parainfluenza 2 (PCR) (Not Detect) Parainfluenza 3 (PCR) (Not Detect) Parainfluenza 4 (PCR) (Not Detect) RSV (PCR) (Not Detect) Entero/Rhino (PCR) (Not Detect) 02/28/24 02/28/24 02/28/24 Range/Units 08:03 08:03 08:03 WBC (4.5-11.0) X10^3/uL RBC (4.0-5.2) X10^6/uL Hgb (12.0-16.0) g/dL Hct (36-46) % MCV (80-100) fL MCH (26-34) PG MCHC (30-36) % RDW (11.6-14.8) % Plt Count (150-400) X10^3/uL Neut % (Auto) (50-75) % Lymph % (Auto) (25-40) % [place] % (Auto) (3-14) % Eos % (Auto) (2-4) % Baso % (Auto) (0-2) % Neut # (Auto) (8631-7184) /uL Lymph # (Auto) (3337-3677) /uL [place] # (Auto) (0-900) /uL Eos # (Auto) (0-450) /uL Baso # (Auto) (0-100) /uL ABG Sample Site ABG pH ABG pCO2 ABG pO2 ABG HCO3 ABG Total CO2 ABG O2 Saturation ABG Base Excess [place] Test Yes, passed Respiration Rate Cancelled 26 O2 Delivery Device Cancelled Bipap Oxygen Liter Flow Cancelled Mode of Support Cancelled FiO2 % Tidal Volume Pressure Support PEEP or CPAP Sodium (137-145) mmol/L Potassium (3.4-5.1) mmol/L Chloride (98-107) mmol/L Carbon Dioxide (22-32) mmol/L BUN (7-17) mg/dL Creatinine (0.52-1.04) mg/dL Estimated GFR (>60) mL/min BUN/Creatinine Ratio (6-22) Glucose (80-110) mg/dL Lactate (0.7-2.1) mmol/L Calcium (8.4-10.2) mg/dL Magnesium (1.6-2.3) mg/dL Total Bilirubin (0.2-1.3) mg/dL AST (14-36) IU/L ALT (<35) IU/L Alkaline Phosphatase (38-126) U/L Ammonia (9-30) umol/L Total Creatine Kinase (30-135) U/L Troponin I (0.01-0.034) ng/mL NT-Pro-B Natriuret Pep (<125) pg/mL Total Protein (6.3-8.2) g/dL Albumin (3.5-5.0) g/dL Globulin (1.7-4.1) g/dL Albumin/Globulin Ratio (1.0-2.8) Lipase (23-300) U/L Procalcitonin (<0.5) ng/mL TSH (0.47-4.68) uIU/mL Urine Color Urine Appearance Urine pH (4.5-8.0) Ur Specific [place] (1.000-1.035) Urine Protein (Negative) Urine Glucose (UA) (Negative) g/dL Urine Ketones (NEGATIVE) Urine Occult Blood (Negative) Urine Nitrate (Negative) Urine Bilirubin (NEGATIVE) Urine Urobilinogen (0.2) E.U./dL Ur Leukocyte Esterase (NEGATIVE) Urine RBC (0-5/HPF) Urine WBC (0-5/HPF) Ur Squamous Epith Cells (0-5/HPF) Urine Bacteria (None) Ur Culture Indicated? Vol Urine Centrifuged Chlamy pneumoniae PCR (Not Detect) Adenovirus (PCR) (Not Detect) B. pertussis DNA (PCR) (Not Detect) B.parapertussis DNA PCR (Not Detecte) Coronavirus OC43 (PCR) (Not Detect) Coronavirus HKU1 (PCR) (Not Detect) Coronavirus 229E (PCR) (Not Detect) SARS-CoV-2 (PCR) (Not Detecte) Coronavirus NL63 (PCR) (Not Detect) Human Metapneumovir PCR (Not Detect) Influenza Type A (PCR) (Not Detect) Influenza Type B (PCR) (Not Detect) M. pneumoniae (PCR) (Not Detect) Parainfluenza 1 (PCR) (Not Detect) Parainfluenza 2 (PCR) (Not Detect) Parainfluenza 3 (PCR) (Not Detect) Parainfluenza 4 (PCR) (Not Detect) RSV (PCR) (Not Detect) Entero/Rhino (PCR) (Not Detect) 02/28/24 02/28/24 02/28/24 Range/Units 08:03 08:03 08:03 WBC (4.5-11.0) X10^3/uL RBC (4.0-5.2) X10^6/uL Hgb (12.0-16.0) g/dL Hct (36-46) % MCV (80-100) fL MCH (26-34) PG MCHC (30-36) % RDW (11.6-14.8) % Plt Count (150-400) X10^3/uL Neut % (Auto) (50-75) % Lymph % (Auto) (25-40) % [place] % (Auto) (3-14) % Eos % (Auto) (2-4) % Baso % (Auto) (0-2) % Neut # (Auto) (8636-5407) /uL Lymph # (Auto) (4448-6173) /uL [place] # (Auto) (0-900) /uL Eos # (Auto) (0-450) /uL Baso # (Auto) (0-100) /uL ABG Sample Site ABG pH ABG pCO2 ABG pO2 ABG HCO3 ABG Total CO2 ABG O2 Saturation ABG Base Excess [place] Test Respiration Rate O2 Delivery Device Oxygen Liter Flow Mode of Support Avaps FiO2 % Cancelled 35 Tidal Volume Cancelled 500 Pressure Support Cancelled PEEP or CPAP Cancelled Sodium (137-145) mmol/L Potassium (3.4-5.1) mmol/L Chloride (98-107) mmol/L Carbon Dioxide (22-32) mmol/L BUN (7-17) mg/dL Creatinine (0.52-1.04) mg/dL Estimated GFR (>60) mL/min BUN/Creatinine Ratio (6-22) Glucose (80-110) mg/dL Lactate (0.7-2.1) mmol/L Calcium (8.4-10.2) mg/dL Magnesium (1.6-2.3) mg/dL Total Bilirubin (0.2-1.3) mg/dL AST (14-36) IU/L ALT (<35) IU/L Alkaline Phosphatase (38-126) U/L Ammonia (9-30) umol/L Total Creatine Kinase (30-135) U/L Troponin I (0.01-0.034) ng/mL NT-Pro-B Natriuret Pep (<125) pg/mL Total Protein (6.3-8.2) g/dL Albumin (3.5-5.0) g/dL Globulin (1.7-4.1) g/dL Albumin/Globulin Ratio (1.0-2.8) Lipase (23-300) U/L Procalcitonin (<0.5) ng/mL TSH (0.47-4.68) uIU/mL Urine Color Urine Appearance Urine pH (4.5-8.0) Ur Specific [place] (1.000-1.035) Urine Protein (Negative) Urine Glucose (UA) (Negative) g/dL Urine Ketones (NEGATIVE) Urine Occult Blood (Negative) Urine Nitrate (Negative) Urine Bilirubin (NEGATIVE) Urine Urobilinogen (0.2) E.U./dL Ur Leukocyte Esterase (NEGATIVE) Urine RBC (0-5/HPF) Urine WBC (0-5/HPF) Ur Squamous Epith Cells (0-5/HPF) Urine Bacteria (None) Ur Culture Indicated? Vol Urine Centrifuged Chlamy pneumoniae PCR (Not Detect) Adenovirus (PCR) (Not Detect) B. pertussis DNA (PCR) (Not Detect) B.parapertussis DNA PCR (Not Detecte) Coronavirus OC43 (PCR) (Not Detect) Coronavirus HKU1 (PCR) (Not Detect) Coronavirus 229E (PCR) (Not Detect) SARS-CoV-2 (PCR) (Not Detecte) Coronavirus NL63 (PCR) (Not Detect) Human Metapneumovir PCR (Not Detect) Influenza Type A (PCR) (Not Detect) Influenza Type B (PCR) (Not Detect) M. pneumoniae (PCR) (Not Detect) Parainfluenza 1 (PCR) (Not Detect) Parainfluenza 2 (PCR) (Not Detect) Parainfluenza 3 (PCR) (Not Detect) Parainfluenza 4 (PCR) (Not Detect) RSV (PCR) (Not Detect) Entero/Rhino (PCR) (Not Detect) 02/28/24 02/28/24 02/28/24 Range/Units 08:03 09:33 10:41 WBC (4.5-11.0) X10^3/uL RBC (4.0-5.2) X10^6/uL Hgb (12.0-16.0) g/dL Hct (36-46) % MCV (80-100) fL MCH (26-34) PG MCHC (30-36) % RDW (11.6-14.8) % Plt Count (150-400) X10^3/uL Neut % (Auto) (50-75) % Lymph % (Auto) (25-40) % [place] % (Auto) (3-14) % Eos % (Auto) (2-4) % Baso % (Auto) (0-2) % Neut # (Auto) (5367-5567) /uL Lymph # (Auto) (5497-8284) /uL [place] # (Auto) (0-900) /uL Eos # (Auto) (0-450) /uL Baso # (Auto) (0-100) /uL ABG Sample Site ABG pH ABG pCO2 ABG pO2 ABG HCO3 ABG Total CO2 ABG O2 Saturation ABG Base Excess [place] Test Respiration Rate O2 Delivery Device Oxygen Liter Flow Mode of Support FiO2 % Tidal Volume Pressure Support PEEP or CPAP 6 Sodium (137-145) mmol/L Potassium (3.4-5.1) mmol/L Chloride (98-107) mmol/L Carbon Dioxide (22-32) mmol/L BUN (7-17) mg/dL Creatinine (0.52-1.04) mg/dL Estimated GFR (>60) mL/min BUN/Creatinine Ratio (6-22) Glucose (80-110) mg/dL Lactate (0.7-2.1) mmol/L Calcium (8.4-10.2) mg/dL Magnesium (1.6-2.3) mg/dL Total Bilirubin (0.2-1.3) mg/dL AST (14-36) IU/L ALT (<35) IU/L Alkaline Phosphatase (38-126) U/L Ammonia (9-30) umol/L Total Creatine Kinase 70 (30-135) U/L Troponin I 0.105 H (0.01-0.034) ng/mL NT-Pro-B Natriuret Pep (<125) pg/mL Total Protein (6.3-8.2) g/dL Albumin (3.5-5.0) g/dL Globulin (1.7-4.1) g/dL Albumin/Globulin Ratio (1.0-2.8) Lipase (23-300) U/L Procalcitonin (<0.5) ng/mL TSH (0.47-4.68) uIU/mL Urine Color Yellow Urine Appearance Clear Urine pH 5.5 (4.5-8.0) Ur Specific [place] 1.015 (1.000-1.035) Urine Protein Negative (Negative) Urine Glucose (UA) 2+ H (Negative) g/dL Urine Ketones Negative (NEGATIVE) Urine Occult Blood Trace-intact (Negative) Urine Nitrate Positive H (Negative) Urine Bilirubin Negative (NEGATIVE) Urine Urobilinogen 0.2 (0.2) E.U./dL Ur Leukocyte Esterase 1+ H (NEGATIVE) Urine RBC 0-1/hpf (0-5/HPF) Urine WBC 5-10/hpf H (0-5/HPF) Ur Squamous Epith Cells 0-1 /hpf (0-5/HPF) Urine Bacteria Many (>30) H (None) Ur Culture Indicated? Specimen cultured Vol Urine Centrifuged 10ml (spun) Chlamy pneumoniae PCR (Not Detect) Adenovirus (PCR) (Not Detect) B. pertussis DNA (PCR) (Not Detect) B.parapertussis DNA PCR (Not Detecte) Coronavirus OC43 (PCR) (Not Detect) Coronavirus HKU1 (PCR) (Not Detect) Coronavirus 229E (PCR) (Not Detect) SARS-CoV-2 (PCR) (Not Detecte) Coronavirus NL63 (PCR) (Not Detect) Human Metapneumovir PCR (Not Detect) Influenza Type A (PCR) (Not Detect) Influenza Type B (PCR) (Not Detect) M. pneumoniae (PCR) (Not Detect) Parainfluenza 1 (PCR) (Not Detect) Parainfluenza 2 (PCR) (Not Detect) Parainfluenza 3 (PCR) (Not Detect) Parainfluenza 4 (PCR) (Not Detect) RSV (PCR) (Not Detect) Entero/Rhino (PCR) (Not Detect) Point of Care Testing Glucose POC 119 Point of care testing: Point of Care Testing Glucose POC 119 Imaging Data Chest x-ray: Radiologist's Impression: PROCEDURE: XR CHEST 1V INDICATIONS: SOB TECHNIQUE: One view of the chest was acquired. COMPARISON: [facility], , XR CHEST 1V, 01/14/2024, 1:54. FINDINGS: Surgical changes and devices: None. Lungs and pleura: Unchanged pulmonary density, left lung base. No pleural effusions or pneumothorax. Mediastinum: Mediastinal contours appear normal. Unchanged cardiomegaly. Bones and chest wall: No suspicious bony lesions. Overlying soft tissues appear unremarkable. IMPRESSION: Unchanged cardiomegaly, unchanged pulmonary process with density in the left lung base. Comment: Final report is concordant with preliminary interpretation provided by [facility]. ECG Data Attestation: I personally reviewed and interpreted this ECG as follows: Interpretation: Sinus rhythm Ventricular rate is 66 LVH Left axis deviation Nonspecific ST T wave changes MDM Narrative Medical decision making narrative: Patient was remained on BiPAP with oxygen saturations staying above 90%. She was becoming more arousable but is still somnolent. Has a respiratory acidosis on her ABG but this potentially could be baseline for her. Has a elevated BNP but is not hypertensive. She was given a small amount of Lasix. He was also given antibiotics and steroids. Cultures were obtained. Given clinical presentation will require admission to the hospital. Discussed the case with Dr. Brito hospitalist on-call who will admit for further evaluation and treatment. Critical Care Time Critical Care Time Critical Care Time: Yes Total Critical Care Time: 40 Attestation: The high probability of a clinically significant, sudden or life threatening deterioration of the [cardiovascular, respiratory] system(s) required my full and direct attention, intervention and personal management. The aggregate critical care time was [40] minutes. This time is in addition to time spent performing reported procedures but includes the following: [x] Data Review and interpretation [x] Patient assessment and monitoring of vital signs [x] Documentation [x] Medication orders and management Discharge Plan Departure Patient Disposition: Admitted As Inpatient Clinical Impression: Acute hypercapnic respiratory failure, CHF (congestive heart failure), Hypoglycemia, COPD (chronic obstructive pulmonary disease) Admit Date/Time: 02/28/24 11:11 Admit Provider: Esteban Gillespie
[2024-02-28 07:34] LABS: Add Manual Diff / Slide Review NO; Basophils Absolute Auto 100 /uL (0-100); Eosinophils Absolute Auto 100 /uL (0-450); Eosinophils Percent Auto 0.7 % (2-4); Hemoglobin 14.4 g/dL (12.0-16.0); Lymphocytes Absolute Auto 2200 /uL (1100-4500); Lymphocytes Percent Auto 17.1 % (25-40); Mean Corpuscular HGB Conc 31.9 % (30-36); Mean Corpuscular Hemoglobin 33.4 PG (26-34); Mean Corpuscular Volume 104.8 fL (80-100); Monocytes Absolute Auto 1000 /uL (0-900); Neutrophils Absolute Auto 9500 /uL (1500-7000); Neutrophils Percent Auto 73.2 % (50-75); Platelet Count 307 X10^3/uL (150-400); Red Cell Distribution Width 17.7 % (11.6-14.8)
[2024-02-28 07:52] LABS: Alanine Aminotransferase 84 IU/L (<35); Albumin 4.2 g/dL (3.5-5.0); Albumin Globulin Ratio 1.2 (1.0-2.8); Alkaline Phosphatase 43 U/L (38-126); Aspartate Aminotransferase 158 IU/L (14-36); BUN Creatinine Ratio 24.6 (6-22); Bilirubin Total 0.6 mg/dL (0.2-1.3); Blood Urea Nitrogen 56 mg/dL (7-17); Calcium 10.3 mg/dL (8.4-10.2); Chloride 98 mmol/L (98-107); Creatine Kinase 84 U/L (30-135); Estimated Glomerular Filt Rate 24 mL/min (>60); Globulin 3.6 g/dL (1.7-4.1); Glucose 75 mg/dL (80-110); Lipase 28 U/L (23-300); Magnesium 2.7 mg/dL (1.6-2.3); Potassium 4.2 mmol/L (3.4-5.1); Sodium 143 mmol/L (137-145); Total Protein 7.8 g/dL (6.3-8.2)
[2024-02-28 07:53] LABS: Lactate (Lactic Acid) 1.3 mmol/L (0.7-2.1)
[2024-02-28 07:58] LABS: Carbon Dioxide 36 mmol/L (22-32); HEMOLYSIS 20 (0-50)
[2024-02-28] MEDS: SODIUM CHLORIDE 0.9% 1,000 ML 50 ML IV (08:00)
[2024-02-28] MEDS: FUROSEMIDE 40 MG/4 ML VIAL IV (08:00)
[2024-02-28] MEDS: methylPREDNISolone 125 MG/2 ML VIAL IV (08:00)
[2024-02-28 08:04] LABS: NT-proBNP (BNP-Adult 18+) 18200 pg/mL (<125)
[2024-02-28 08:09] LABS: Procalcitonin 0.345 ng/mL (<0.5)
[2024-02-28 08:10] LABS: Ammonia (NH3) < 9 umol/L (9-30)
[2024-02-28] MEDS: DEXTROSE 50 % IN WATER 25 GM/50 ML SYRINGE IV (08:11)
[2024-02-28] MEDS: cefTRIAXone 1,000 MG in SODIUM CHLORIDE 0.9% 100 ML 200 MG IV (08:22)
[2024-02-28 08:25] LABS: Adenovirus Not Detected (Not Detect); B. parapertussis Not Detected (Not Detecte); Bordetella pertussis Not Detected (Not Detect); Chlamydophila pneumoniae Not Detected (Not Detect); Coronavirus 229E Not Detected (Not Detect); Coronavirus HKU1 Not Detected (Not Detect); Coronavirus NL 63 Not Detected (Not Detect); Coronavirus OC43 Not Detected (Not Detect); Human Metapneumovirus Not Detected (Not Detect); Human Rhinovirus/Enterovirus Not Detected (Not Detect); Influenza A Not Detected (Not Detect); Influenza B Not Detected (Not Detect); Mycoplasma pneumoniae Not Detected (Not Detect); Parainfluenza Virus 1 Not Detected (Not Detect); Parainfluenza Virus 2 Not Detected (Not Detect); Parainfluenza Virus 3 Not Detected (Not Detect); Parainfluenza Virus 4 Not Detected (Not Detect); Respiratory Syncytial Virus Not Detected (Not Detect); SARS- CoV-2 Not Detected (Not Detecte)
[2024-02-28 08:30] LABS: Troponin I 0.122 ng/mL (0.01-0.034)
[2024-02-28 08:31] LABS: HCO3 ABG 33 mmol/L (23-27); Oxygen Saturation ABG 90 % (95-100); PCO2 ABG 66.2 mmHg (35-45); PO2 ABG 66 mmHg (80-100); TCO2 ABG 32 mmol/L (23-27)
[2024-02-28 08:32] LABS: Allen Test for ABG Passed? Yes, Passed; Blood Gas Collection Site Left Radial; Blood Gas Mode AVAPS; Delivery System BIPAP; Fractionated Inspired Oxygen 35 %; PEEP 6; Respiratory Rate 26; Tidal Volume 500
--- NOTE | 2024-02-28 08:41 | EKG_ITS ---
[facility] [address] [place] [address] Test Date: 2024-02-28 Pat Name: Mary Carmen Jett Department: [facility] Room: Gender: Female [employer]: MIRIAM : 1960 Requested By: Order Number: [id number] Reading MD: Rayray Grijalva MD Measurements Intervals [place] Rate: 66 P: 13 RI: 188 QRS: -52 QRSD: 140 T: 65 QT: 470 QTc: 492 Interpretive Statements Sinus rhythm with premature atrial complexes Left axis deviation Nonspecific intraventricular block Minimal voltage criteria for LVH, may be normal variant ( De Berry product ) Electronically Signed On 02-29-2024 7:36:27 PST by Rayray Grijalva MD
[2024-02-28] MEDS: MEROPENEM 500 MG in SODIUM CHLORIDE 0.9% 100 ML 200 MG IV (09:26)
[2024-02-28 09:53] LABS: Creatine Kinase 70 U/L (30-135)
[2024-02-28 10:06] LABS: Troponin I 0.105 ng/mL (0.01-0.034)
[2024-02-28] MEDS: ALBUTEROL 2.5 MG/3 ML NEB (ADULT) 5 MG INH (10:19)
[2024-02-28 11:09] LABS: Appearance Urine UA CLEAR; Bilirubin Urine UA NEGATIVE (NEGATIVE); Color Urine UA YELLOW; Glucose Urine UA 2+ g/dL (Negative); Ketones Urine UA NEGATIVE (NEGATIVE); Leukocyte Esterase Urine UA 1+ (NEGATIVE); Nitrite Urine UA POSITIVE (Negative); Occult Blood Urine UA TRACE-INTACT (Negative); Protein Urine UA NEGATIVE (Negative); Specific Gravity Urine UA 1.015 (1.000-1.035); Urobilinogen Urine UA 0.2 E.U./dL (0.2)
[2024-02-28 11:30] LABS: Bacteria Urine Many (>30); Culture Indicated Urine Specimen Cultured; RBC Urine 0-1/HPF (0-5/HPF); Squamous Epithelial Cell Urine 0-1 /HPF (0-5/HPF); Urine Volume 10mL (spun); WBC Urine 5-10/HPF (0-5/HPF); pH Urine UA 5.5 (4.5-8.0)
--- NOTE | 2024-02-28 12:14 | PC.WOUNDPHOT ---
Wound Photo: Buttocks, allevyn dressing applied to right.
--- NOTE | 2024-02-28 12:51 | DI.RAD.S_ITS ---
PROCEDURE: XR CHEST FOR PICC 1V INDICATIONS: PICC line placement COMPARISON: [facility], CR, XR CHEST 1V, 02/28/2024, 7:30. FINDINGS: PICC was placed by the intravenous therapy team from the left side. Fluoroscopic spot film demonstrates the tip of PICC projecting to the area of SVC/caval junction.. IMPRESSION: Tip of PICC projects to the area of SVC/caval junction. Dictated by: Kaykay Beckman M.D. on 02/28/2024 at 13:34 Approved by: Kaykay Beckman M.D. on 02/28/2024 at 13:35
[2024-02-28] MEDS: LACTATED RINGERS 1,000 ML 1000 ML IV (12:56)
[2024-02-28 13:54] LABS: MRSA (Nasal) PCR DETECTED (Not Detect)
[2024-02-28] MEDS: LACTATED RINGERS 1,000 ML 75 ML IV (14:10)
[2024-02-28] MEDS: NOREPINEPHRINE BITARTRATE/D5W 4 MG/250 ML PLAST..BAG 45.938 MG IV (14:53)
[2024-02-28] MEDS: METOPROLOL TARTRATE 5 MG/5 ML INJ IV (16:06)
[2024-02-28 16:26] LABS: Alanine Aminotransferase 84 IU/L (<35); Albumin 3.6 g/dL (3.5-5.0); Albumin Globulin Ratio 1.2 (1.0-2.8); Alkaline Phosphatase 29 U/L (38-126); Aspartate Aminotransferase 198 IU/L (14-36); BUN Creatinine Ratio 27.4 (6-22); Bilirubin Total 0.7 mg/dL (0.2-1.3); Blood Urea Nitrogen 51 mg/dL (7-17); Calcium 9.4 mg/dL (8.4-10.2); Carbon Dioxide 32 mmol/L (22-32); Chloride 101 mmol/L (98-107); Estimated Glomerular Filt Rate 30 mL/min (>60); Globulin 2.9 g/dL (1.7-4.1); Glucose 176 mg/dL (80-110); Sodium 139 mmol/L (137-145); Total Protein 6.5 g/dL (6.3-8.2)
[2024-02-28 16:28] LABS: HEMOLYSIS 59 (0-50); Potassium 4.6 mmol/L (3.4-5.1)
[2024-02-28] MEDS: HYDROCORTISONE 100 MG/2 ML VIAL 50 MG IV (16:41)
--- NOTE | 2024-02-28 16:45 | PM.HP.1 ---
History of Present Illness History of Present Illness Date Patient Seen: 02/28/24 Time Patient Seen: 12:00 Chief complaint: SOB Narrative: Mary Carmen Jett is a 62yo F with PMH of DM2, COPD on chronic 2L O2, HFrEF of approx 25% (last known 2022), morbid obesity, PONCE, HTN, hypothyroidism, frequent UTI's, depression and frequent admissions requiring Bipap for hypercapnea who presents with somnolence and altered mental status. She was reportedly found off of her home BIPAP overnight, unable to provide a history in the ER. Initial blood gas PCO2 appeared near her baseline, but she was brought in on BIPAP. She was still lethargic and unable to provide history now. BP were soft, UA ended up being positive. She was brought to the ICU for further management. In the ICU, she has since been placed on levophed, then developed afib with RVR. [facility] Medical History Chronic hypercapnic respiratory failure PONCE (obstructive sleep apnea) Chronic hypoxemic respiratory failure COPD (chronic obstructive pulmonary disease) DM2 (diabetes mellitus, type 2) HTN (hypertension) Thyroiditis Systolic and diastolic CHF, chronic Obesity Surgical History S/P hernia surgery Family History Mother No pertinent past medical history Father No pertinent past medical history Social History household members: other Smoking Status: Former smoker alcohol intake: former Meds Home Medications and Allergies Home Medications Medication Instructions Recorded Confirmed Type acetaminophen 325 mg tablet 650 mg PO TID 05/25/22 02/28/24 History (Tylenol) budesonide-formoterol HFA 160 2 puff inhalation Q4H PRN Wheezing 05/25/22 02/28/24 History mcg-4.5 mcg/actuation aerosol inhaler cyanocobalamin (vitamin B-12) 500 500 mcg PO DAILY 05/25/22 02/28/24 History mcg tablet fenofibrate 160 mg tablet 160 mg PO BEDTIME 05/25/22 02/28/24 History fluoxetine 20 mg tablet 20 mg PO DAILY 05/25/22 02/28/24 History fluticasone propionate 50 2 spray intranasal DAILY 05/25/22 02/28/24 History mcg/actuation nasal spray,suspension gabapentin 300 mg capsule 300 mg PO BEDTIME 05/25/22 02/28/24 History insulin lispro 100 unit/mL See Protocol SUBCUT TIDWM 05/25/22 02/28/24 History subcutaneous solution (Humalog U-100 Insulin) loratadine 10 mg tablet 10 mg PO DAILY 05/25/22 02/28/24 History magnesium oxide 200 mg PO BID 05/25/22 02/28/24 History montelukast 10 mg tablet 10 mg PO DAILY 05/25/22 02/28/24 History ondansetron 4 mg disintegrating 4 mg PO Q8H PRN Nausea 05/25/22 02/28/24 History tablet rosuvastatin 40 mg tablet 40 mg PO DAILY 05/25/22 02/28/24 History sennosides 8.6 mg tablet (senna) 17.2 mg PO BEDTIME 05/25/22 02/28/24 History tiotropium bromide 18 mcg capsule 1 cap inhalation DAILY 05/25/22 02/28/24 History with inhalation device (Spiriva with HandiHaler) trazodone 50 mg tablet 50 mg PO BEDTIME 05/25/22 02/28/24 History albuterol sulfate 90 mcg/actuation 4 puff inhalation Q4H PRN 08/15/22 02/28/24 History aerosol inhaler Shortness Of Breath Or Wheezing levothyroxine 175 mcg tablet 175 mcg PO DAILY 08/15/22 02/28/24 History potassium chloride 10 mEq 20 meq PO DAILY 08/15/22 02/28/24 History tablet,extended release torsemide 10 mg tablet 30 mg PO BEDTIME 05/20/23 02/28/24 History albuterol sulfate 2.5 mg/3 mL 2.5 mg inhalation Q6H PRN 10/24/23 02/28/24 History (0.083 %) solution for nebulization wheezing/cough docusate sodium 100 mg capsule 100 mg PO BID Constipation 10/24/23 02/28/24 History insulin lispro 100 unit/mL 6 unit SUBCUT AC 10/24/23 02/28/24 History subcutaneous pen ipratropium 0.5 mg-albuterol 3 mg 3 ml inhalation Q4H PRN COPD 10/24/23 02/28/24 History (2.5 mg base)/3 mL nebulization soln polyethylene glycol 3350 17 gram 17 g PO DAILY 10/24/23 02/28/24 History oral powder packet (Miralax) bupropion HCl 100 mg tablet,12 hr 100 mg PO BID 10/31/23 02/28/24 History sustained-release apixaban 5 mg tablet 5 mg PO BID 02/28/24 02/28/24 History empagliflozin 10 mg tablet 10 mg PO DAILY 02/28/24 02/28/24 History (Jardiance) insulin glargine 100 unit/mL (3 22 unit SUBCUT QAM 02/28/24 02/28/24 History mL) subcutaneous pen insulin glargine 100 unit/mL (3 30 unit SUBCUT QPM 02/28/24 02/28/24 History mL) subcutaneous pen liraglutide 0.6 mg/0.1 mL (18 mg/3 1.2 mg SUBCUT DAILY 02/28/24 02/28/24 History mL) subcutaneous pen injector metoprolol succinate 25 mg 25 mg PO BID 02/28/24 02/28/24 History tablet,extended release 24 hr prednisone 10 mg tablet 12.5 mg PO DAILY 02/28/24 02/28/24 History Allergies Allergy/AdvReac Type Severity Reaction Status Date / Time No Known Drug Allergies Allergy Verified 02/13/24 11:14 Review of Systems Review of Systems Narrative: Review of systems not obtainable due to her mental status. Exam Vital Signs (past 8 hours): - 02/28/24 08:50 02/28/24 08:50 02/28/24 09:00 Temperature Pulse Rate 68 Respiratory Rate 26 H Blood Pressure 119/68 109/63 Pulse Oximetry 93 Oxygen Delivery Method Oxygen Flow Rate Fraction of Inspired Oxygen 02/28/24 09:00 02/28/24 09:10 02/28/24 09:10 Temperature Pulse Rate 66 64 Respiratory Rate 21 27 H Blood Pressure 119/56 L Pulse Oximetry 89 L 87 L Oxygen Delivery Method Oxygen Flow Rate Fraction of Inspired Oxygen 02/28/24 09:15 02/28/24 09:15 02/28/24 09:30 Temperature Pulse Rate 63 Respiratory Rate 26 H Blood Pressure 99/55 L 84/49 L Pulse Oximetry 95 Oxygen Delivery Method Oxygen Flow Rate Fraction of Inspired Oxygen 02/28/24 09:30 02/28/24 09:45 02/28/24 09:45 Temperature Pulse Rate 63 63 Respiratory Rate 26 H 26 H Blood Pressure 83/50 L Pulse Oximetry 96 96 Oxygen Delivery Method Oxygen Flow Rate Fraction of Inspired Oxygen 02/28/24 10:00 02/28/24 10:00 02/28/24 10:15 Temperature Pulse Rate 63 Respiratory Rate 26 H Blood Pressure 86/51 L 106/52 L Pulse Oximetry 95 Oxygen Delivery Method Oxygen Flow Rate Fraction of Inspired Oxygen 02/28/24 10:15 02/28/24 10:28 02/28/24 10:30 Temperature Pulse Rate 64 67 Respiratory Rate 26 H 26 H Blood Pressure 113/59 L Pulse Oximetry 95 93 Oxygen Delivery Method BiPAP Oxygen Flow Rate Fraction of Inspired Oxygen 40 02/28/24 10:30 02/28/24 10:45 02/28/24 10:45 Temperature Pulse Rate 65 73 Respiratory Rate 26 H 27 H Blood Pressure 98/54 L Pulse Oximetry 94 91 Oxygen Delivery Method Oxygen Flow Rate Fraction of Inspired Oxygen 02/28/24 11:00 02/28/24 11:00 02/28/24 11:08 Temperature Pulse Rate 67 Respiratory Rate 26 H Blood Pressure 87/49 L 95/56 L Pulse Oximetry 91 Oxygen Delivery Method Oxygen Flow Rate Fraction of Inspired Oxygen 02/28/24 11:08 02/28/24 11:14 02/28/24 11:15 Temperature Pulse Rate 67 67 Respiratory Rate 29 H 26 H Blood Pressure 99/55 L Pulse Oximetry 90 L 92 Oxygen Delivery Method Oxygen Flow Rate Fraction of Inspired Oxygen 38 02/28/24 11:15 02/28/24 11:28 02/28/24 11:30 Temperature 93.4 F L Pulse Rate Respiratory Rate Blood Pressure 99/55 L 93/55 L Pulse Oximetry Oxygen Delivery Method Oxygen Flow Rate Fraction of Inspired Oxygen 02/28/24 11:30 02/28/24 11:48 02/28/24 12:00 Temperature Pulse Rate 66 67 67 Respiratory Rate 26 H 26 H 26 H Blood Pressure Pulse Oximetry 92 94 Oxygen Delivery Method Oxygen Flow Rate Fraction of Inspired Oxygen 02/28/24 12:01 02/28/24 12:01 02/28/24 12:01 Temperature 97.3 F L Pulse Rate 68 Respiratory Rate 26 H Blood Pressure Pulse Oximetry 93 94 Oxygen Delivery Method BiPAP Oxygen Flow Rate 35 Fraction of Inspired Oxygen 02/28/24 12:01 02/28/24 12:09 02/28/24 12:09 Temperature Pulse Rate 69 Respiratory Rate 26 H Blood Pressure 84/57 L 78/51 L Pulse Oximetry 94 Oxygen Delivery Method Oxygen Flow Rate Fraction of Inspired Oxygen 02/28/24 12:30 02/28/24 12:30 02/28/24 13:00 Temperature Pulse Rate 66 62 Respiratory Rate 26 H 31 H Blood Pressure 74/52 L Pulse Oximetry 94 94 Oxygen Delivery Method Oxygen Flow Rate Fraction of Inspired Oxygen 02/28/24 13:01 02/28/24 13:01 02/28/24 13:30 Temperature Pulse Rate 62 Respiratory Rate 26 H Blood Pressure 91/55 L 91/61 Pulse Oximetry 95 Oxygen Delivery Method Oxygen Flow Rate Fraction of Inspired Oxygen 02/28/24 13:30 02/28/24 14:00 02/28/24 14:00 Temperature Pulse Rate 65 67 Respiratory Rate 26 H 26 H Blood Pressure 90/51 L Pulse Oximetry 96 94 Oxygen Delivery Method Oxygen Flow Rate Fraction of Inspired Oxygen 02/28/24 14:18 02/28/24 14:19 02/28/24 14:30 Temperature 94.8 F L Pulse Rate 68 Respiratory Rate 26 H Blood Pressure Pulse Oximetry 93 Oxygen Delivery Method BiPAP Oxygen Flow Rate Fraction of Inspired Oxygen 02/28/24 14:30 02/28/24 15:00 02/28/24 15:00 Temperature Pulse Rate 62 Respiratory Rate 26 H Blood Pressure 81/53 L Pulse Oximetry 96 Oxygen Delivery Method BiPAP Oxygen Flow Rate Fraction of Inspired Oxygen 02/28/24 15:01 02/28/24 15:01 02/28/24 15:30 Temperature Pulse Rate 62 Respiratory Rate 26 H Blood Pressure 121/73 131/93 H Pulse Oximetry 96 Oxygen Delivery Method Oxygen Flow Rate Fraction of Inspired Oxygen 02/28/24 15:30 02/28/24 16:01 Temperature Pulse Rate 70 Respiratory Rate 27 H Blood Pressure Pulse Oximetry 96 96 Oxygen Delivery Method BiPAP Oxygen Flow Rate 35 Fraction of Inspired Oxygen Fraction of Inspired Oxygen 38 SaO2/FiO2 Ratio 235 Oxygen Delivery Method BiPAP Oxygen Flow Rate 35 Narrative Exam Narrative: Gen: obese female, no acute distress, moaning CV: Regular rate (then tachycardia later), irregularly irregular Pulm: diminished breath sounds bilateral lung bases, no wheezing Abd: S NT ND Ext: trace peripheral non pitting edema, chronic venous stasis changes, no erythema or warmth noted Objective ECG Impression: sinus rhythm with PAC, interventricular conduction delay. No ST or T wave changes indicative of ischemia. Labs 02/28/24 07:18 02/28/24 16:00 Labs: Laboratory Results - last 24 hr 02/28/24 02/28/24 02/28/24 07:18 07:32 07:50 WBC 13.0 H RBC 4.30 Hgb 14.4 Hct 45.0 MCV 104.8 H MCH 33.4 MCHC 31.9 RDW 17.7 H Plt Count 307 Neut % (Auto) 73.2 Lymph % (Auto) 17.1 L Dixon % (Auto) 8.0 Eos % (Auto) 0.7 L Baso % (Auto) 1.0 Neut # (Auto) 9500 H Lymph # (Auto) 2200 Dixon # (Auto) 1000 H Eos # (Auto) 100 Baso # (Auto) 100 ABG Sample Site ABG pH ABG pCO2 ABG pO2 ABG HCO3 ABG Total CO2 ABG O2 Saturation ABG Base Excess Ramon Test Respiration Rate O2 Delivery Device Oxygen Liter Flow Mode of Support FiO2 % Tidal Volume Pressure Support PEEP or CPAP Sodium 143 Potassium 4.2 Chloride 98 Carbon Dioxide 36 H BUN 56 H Creatinine 2.28 H Estimated GFR 24 L BUN/Creatinine Ratio 24.6 H Glucose 75 L Lactate 1.3 Calcium 10.3 H Magnesium 2.7 H Total Bilirubin 0.6 AST 158 H ALT 84 H Alkaline Phosphatase 43 Ammonia < 9 L Total Creatine Kinase 84 Troponin I 0.122 H* NT-Pro-B Natriuret Pep 40037 H Total Protein 7.8 Albumin 4.2 Globulin 3.6 Albumin/Globulin Ratio 1.2 Lipase 28 Procalcitonin 0.345 TSH 1.40 Urine Color Urine Appearance Urine pH Ur Specific [place] Urine Protein Urine Glucose (UA) Urine Ketones Urine Occult Blood Urine Nitrate Urine Bilirubin Urine Urobilinogen Ur Leukocyte Esterase Urine RBC Urine WBC Ur Squamous Epith Cells Urine Bacteria Ur Culture Indicated? Vol Urine Centrifuged Nasal Screen MRSA (PCR) Chlamy pneumoniae PCR Not detected Adenovirus (PCR) Not detected B. pertussis DNA (PCR) Not detected B.parapertussis DNA PCR Not detected Coronavirus OC43 (PCR) Not detected Coronavirus HKU1 (PCR) Not detected Coronavirus 229E (PCR) Not detected SARS-CoV-2 (PCR) Not detected Coronavirus NL63 (PCR) Not detected Human Metapneumovir PCR Not detected Influenza Type A (PCR) Not detected Influenza Type B (PCR) Not detected M. pneumoniae (PCR) Not detected Parainfluenza 1 (PCR) Not detected Parainfluenza 2 (PCR) Not detected Parainfluenza 3 (PCR) Not detected Parainfluenza 4 (PCR) Not detected RSV (PCR) Not detected Entero/Rhino (PCR) Not detected 02/28/24 02/28/24 02/28/24 08:03 08:03 08:03 WBC RBC Hgb Hct MCV MCH MCHC RDW Plt Count Neut % (Auto) Lymph % (Auto) Dixon % (Auto) Eos % (Auto) Baso % (Auto) Neut # (Auto) Lymph # (Auto) Dixon # (Auto) Eos # (Auto) Baso # (Auto) ABG Sample Site Cancelled Left radial ABG pH Cancelled 7.30 L ABG pCO2 Cancelled ABG pO2 ABG HCO3 ABG Total CO2 ABG O2 Saturation ABG Base Excess Ramon Test Respiration Rate O2 Delivery Device Oxygen Liter Flow Mode of Support FiO2 % Tidal Volume Pressure Support PEEP or CPAP Sodium Potassium Chloride Carbon Dioxide BUN Creatinine Estimated GFR BUN/Creatinine Ratio Glucose Lactate Calcium Magnesium Total Bilirubin AST ALT Alkaline Phosphatase Ammonia Total Creatine Kinase Troponin I NT-Pro-B Natriuret Pep Total Protein Albumin Globulin Albumin/Globulin Ratio Lipase Procalcitonin TSH Urine Color Urine Appearance Urine pH Ur Specific [place] Urine Protein Urine Glucose (UA) Urine Ketones Urine Occult Blood Urine Nitrate Urine Bilirubin Urine Urobilinogen Ur Leukocyte Esterase Urine RBC Urine WBC Ur Squamous Epith Cells Urine Bacteria Ur Culture Indicated? Vol Urine Centrifuged Nasal Screen MRSA (PCR) Chlamy pneumoniae PCR Adenovirus (PCR) B. pertussis DNA (PCR) B.parapertussis DNA PCR Coronavirus OC43 (PCR) Coronavirus HKU1 (PCR) Coronavirus 229E (PCR) SARS-CoV-2 (PCR) Coronavirus NL63 (PCR) Human Metapneumovir PCR Influenza Type A (PCR) Influenza Type B (PCR) M. pneumoniae (PCR) Parainfluenza 1 (PCR) Parainfluenza 2 (PCR) Parainfluenza 3 (PCR) Parainfluenza 4 (PCR) RSV (PCR) Entero/Rhino (PCR) 02/28/24 02/28/24 02/28/24 08:03 08:03 08:03 WBC RBC Hgb Hct MCV MCH MCHC RDW Plt Count Neut % (Auto) Lymph % (Auto) Dixon % (Auto) Eos % (Auto) Baso % (Auto) Neut # (Auto) Lymph # (Auto) Dixon # (Auto) Eos # (Auto) Baso # (Auto) ABG Sample Site ABG pH ABG pCO2 66.2 H* ABG pO2 Cancelled 66 L ABG HCO3 Cancelled 33 H ABG Total CO2 Cancelled ABG O2 Saturation ABG Base Excess Ramon Test Respiration Rate O2 Delivery Device Oxygen Liter Flow Mode of Support FiO2 % Tidal Volume Pressure Support PEEP or CPAP Sodium Potassium Chloride Carbon Dioxide BUN Creatinine Estimated GFR BUN/Creatinine Ratio Glucose Lactate Calcium Magnesium Total Bilirubin AST ALT Alkaline Phosphatase Ammonia Total Creatine Kinase Troponin I NT-Pro-B Natriuret Pep Total Protein Albumin Globulin Albumin/Globulin Ratio Lipase Procalcitonin TSH Urine Color Urine Appearance Urine pH Ur Specific [place] Urine Protein Urine Glucose (UA) Urine Ketones Urine Occult Blood Urine Nitrate Urine Bilirubin Urine Urobilinogen Ur Leukocyte Esterase Urine RBC Urine WBC Ur Squamous Epith Cells Urine Bacteria Ur Culture Indicated? Vol Urine Centrifuged Nasal Screen MRSA (PCR) Chlamy pneumoniae PCR Adenovirus (PCR) B. pertussis DNA (PCR) B.parapertussis DNA PCR Coronavirus OC43 (PCR) Coronavirus HKU1 (PCR) Coronavirus 229E (PCR) SARS-CoV-2 (PCR) Coronavirus NL63 (PCR) Human Metapneumovir PCR Influenza Type A (PCR) Influenza Type B (PCR) M. pneumoniae (PCR) Parainfluenza 1 (PCR) Parainfluenza 2 (PCR) Parainfluenza 3 (PCR) Parainfluenza 4 (PCR) RSV (PCR) Entero/Rhino (PCR) 02/28/24 02/28/24 02/28/24 08:03 08:03 08:03 WBC RBC Hgb Hct MCV MCH MCHC RDW Plt Count Neut % (Auto) Lymph % (Auto) Dixon % (Auto) Eos % (Auto) Baso % (Auto) Neut # (Auto) Lymph # (Auto) Dixon # (Auto) Eos # (Auto) Baso # (Auto) ABG Sample Site ABG pH ABG pCO2 ABG pO2 ABG HCO3 ABG Total CO2 32 H ABG O2 Saturation Cancelled 90 L ABG Base Excess Cancelled 4.0 H Ramon Test Cancelled Respiration Rate O2 Delivery Device Oxygen Liter Flow Mode of Support FiO2 % Tidal Volume Pressure Support PEEP or CPAP Sodium Potassium Chloride Carbon Dioxide BUN Creatinine Estimated GFR BUN/Creatinine Ratio Glucose Lactate Calcium Magnesium Total Bilirubin AST ALT Alkaline Phosphatase Ammonia Total Creatine Kinase Troponin I NT-Pro-B Natriuret Pep Total Protein Albumin Globulin Albumin/Globulin Ratio Lipase Procalcitonin TSH Urine Color Urine Appearance Urine pH Ur Specific [place] Urine Protein Urine Glucose (UA) Urine Ketones Urine Occult Blood Urine Nitrate Urine Bilirubin Urine Urobilinogen Ur Leukocyte Esterase Urine RBC Urine WBC Ur Squamous Epith Cells Urine Bacteria Ur Culture Indicated? Vol Urine Centrifuged Nasal Screen MRSA (PCR) Chlamy pneumoniae PCR Adenovirus (PCR) B. pertussis DNA (PCR) B.parapertussis DNA PCR Coronavirus OC43 (PCR) Coronavirus HKU1 (PCR) Coronavirus 229E (PCR) SARS-CoV-2 (PCR) Coronavirus NL63 (PCR) Human Metapneumovir PCR Influenza Type A (PCR) Influenza Type B (PCR) M. pneumoniae (PCR) Parainfluenza 1 (PCR) Parainfluenza 2 (PCR) Parainfluenza 3 (PCR) Parainfluenza 4 (PCR) RSV (PCR) Entero/Rhino (PCR) 02/28/24 02/28/24 02/28/24 08:03 08:03 08:03 WBC RBC Hgb Hct MCV MCH MCHC RDW Plt Count Neut % (Auto) Lymph % (Auto) Dixon % (Auto) Eos % (Auto) Baso % (Auto) Neut # (Auto) Lymph # (Auto) Dixon # (Auto) Eos # (Auto) Baso # (Auto) ABG Sample Site ABG pH ABG pCO2 ABG pO2 ABG HCO3 ABG Total CO2 ABG O2 Saturation ABG Base Excess Ramon Test Yes, passed Respiration Rate Cancelled 26 O2 Delivery Device Cancelled Bipap Oxygen Liter Flow Cancelled Mode of Support Cancelled FiO2 % Tidal Volume Pressure Support PEEP or CPAP Sodium Potassium Chloride Carbon Dioxide BUN Creatinine Estimated GFR BUN/Creatinine Ratio Glucose Lactate Calcium Magnesium Total Bilirubin AST ALT Alkaline Phosphatase Ammonia Total Creatine Kinase Troponin I NT-Pro-B Natriuret Pep Total Protein Albumin Globulin Albumin/Globulin Ratio Lipase Procalcitonin TSH Urine Color Urine Appearance Urine pH Ur Specific [place] Urine Protein Urine Glucose (UA) Urine Ketones Urine Occult Blood Urine Nitrate Urine Bilirubin Urine Urobilinogen Ur Leukocyte Esterase Urine RBC Urine WBC Ur Squamous Epith Cells Urine Bacteria Ur Culture Indicated? Vol Urine Centrifuged Nasal Screen MRSA (PCR) Chlamy pneumoniae PCR Adenovirus (PCR) B. pertussis DNA (PCR) B.parapertussis DNA PCR Coronavirus OC43 (PCR) Coronavirus HKU1 (PCR) Coronavirus 229E (PCR) SARS-CoV-2 (PCR) Coronavirus NL63 (PCR) Human Metapneumovir PCR Influenza Type A (PCR) Influenza Type B (PCR) M. pneumoniae (PCR) Parainfluenza 1 (PCR) Parainfluenza 2 (PCR) Parainfluenza 3 (PCR) Parainfluenza 4 (PCR) RSV (PCR) Entero/Rhino (PCR) 02/28/24 02/28/24 02/28/24 08:03 08:03 08:03 WBC RBC Hgb Hct MCV MCH MCHC RDW Plt Count Neut % (Auto) Lymph % (Auto) Dixon % (Auto) Eos % (Auto) Baso % (Auto) Neut # (Auto) Lymph # (Auto) Dixon # (Auto) Eos # (Auto) Baso # (Auto) ABG Sample Site ABG pH ABG pCO2 ABG pO2 ABG HCO3 ABG Total CO2 ABG O2 Saturation ABG Base Excess Ramon Test Respiration Rate O2 Delivery Device Oxygen Liter Flow Mode of Support Avaps FiO2 % Cancelled 35 Tidal Volume Cancelled 500 Pressure Support Cancelled PEEP or CPAP Cancelled Sodium Potassium Chloride Carbon Dioxide BUN Creatinine Estimated GFR BUN/Creatinine Ratio Glucose Lactate Calcium Magnesium Total Bilirubin AST ALT Alkaline Phosphatase Ammonia Total Creatine Kinase Troponin I NT-Pro-B Natriuret Pep Total Protein Albumin Globulin Albumin/Globulin Ratio Lipase Procalcitonin TSH Urine Color Urine Appearance Urine pH Ur Specific [place] Urine Protein Urine Glucose (UA) Urine Ketones Urine Occult Blood Urine Nitrate Urine Bilirubin Urine Urobilinogen Ur Leukocyte Esterase Urine RBC Urine WBC Ur Squamous Epith Cells Urine Bacteria Ur Culture Indicated? Vol Urine Centrifuged Nasal Screen MRSA (PCR) Chlamy pneumoniae PCR Adenovirus (PCR) B. pertussis DNA (PCR) B.parapertussis DNA PCR Coronavirus OC43 (PCR) Coronavirus HKU1 (PCR) Coronavirus 229E (PCR) SARS-CoV-2 (PCR) Coronavirus NL63 (PCR) Human Metapneumovir PCR Influenza Type A (PCR) Influenza Type B (PCR) M. pneumoniae (PCR) Parainfluenza 1 (PCR) Parainfluenza 2 (PCR) Parainfluenza 3 (PCR) Parainfluenza 4 (PCR) RSV (PCR) Entero/Rhino (PCR) 02/28/24 02/28/24 02/28/24 08:03 09:33 10:41 WBC RBC Hgb Hct MCV MCH MCHC RDW Plt Count Neut % (Auto) Lymph % (Auto) Dixon % (Auto) Eos % (Auto) Baso % (Auto) Neut # (Auto) Lymph # (Auto) Dixon # (Auto) Eos # (Auto) Baso # (Auto) ABG Sample Site ABG pH ABG pCO2 ABG pO2 ABG HCO3 ABG Total CO2 ABG O2 Saturation ABG Base Excess Ramon Test Respiration Rate O2 Delivery Device Oxygen Liter Flow Mode of Support FiO2 % Tidal Volume Pressure Support PEEP or CPAP 6 Sodium Potassium Chloride Carbon Dioxide BUN Creatinine Estimated GFR BUN/Creatinine Ratio Glucose Lactate Calcium Magnesium Total Bilirubin AST ALT Alkaline Phosphatase Ammonia Total Creatine Kinase 70 Troponin I 0.105 H NT-Pro-B Natriuret Pep Total Protein Albumin Globulin Albumin/Globulin Ratio Lipase Procalcitonin TSH Urine Color Yellow Urine Appearance Clear Urine pH 5.5 Ur Specific [place] 1.015 Urine Protein Negative Urine Glucose (UA) 2+ H Urine Ketones Negative Urine Occult Blood Trace-intact Urine Nitrate Positive H Urine Bilirubin Negative Urine Urobilinogen 0.2 Ur Leukocyte Esterase 1+ H Urine RBC 0-1/hpf Urine WBC 5-10/hpf H Ur Squamous Epith Cells 0-1 /hpf Urine Bacteria Many (>30) H Ur Culture Indicated? Specimen cultured Vol Urine Centrifuged 10ml (spun) Nasal Screen MRSA (PCR) Chlamy pneumoniae PCR Adenovirus (PCR) B. pertussis DNA (PCR) B.parapertussis DNA PCR Coronavirus OC43 (PCR) Coronavirus HKU1 (PCR) Coronavirus 229E (PCR) SARS-CoV-2 (PCR) Coronavirus NL63 (PCR) Human Metapneumovir PCR Influenza Type A (PCR) Influenza Type B (PCR) M. pneumoniae (PCR) Parainfluenza 1 (PCR) Parainfluenza 2 (PCR) Parainfluenza 3 (PCR) Parainfluenza 4 (PCR) RSV (PCR) Entero/Rhino (PCR) 02/28/24 02/28/24 12:10 16:00 WBC RBC Hgb Hct MCV MCH MCHC RDW Plt Count Neut % (Auto) Lymph % (Auto) Dixon % (Auto) Eos % (Auto) Baso % (Auto) Neut # (Auto) Lymph # (Auto) Dixon # (Auto) Eos # (Auto) Baso # (Auto) ABG Sample Site ABG pH ABG pCO2 ABG pO2 ABG HCO3 ABG Total CO2 ABG O2 Saturation ABG Base Excess Ramon Test Respiration Rate O2 Delivery Device Oxygen Liter Flow Mode of Support FiO2 % Tidal Volume Pressure Support PEEP or CPAP Sodium 139 Potassium 4.6 Chloride 101 Carbon Dioxide 32 BUN 51 H Creatinine 1.86 H Estimated GFR 30 L BUN/Creatinine Ratio 27.4 H Glucose 176 H D Lactate Calcium 9.4 Magnesium Total Bilirubin 0.7 AST 198 H ALT 84 H Alkaline Phosphatase 29 L Ammonia Total Creatine Kinase Troponin I NT-Pro-B Natriuret Pep Total Protein 6.5 Albumin 3.6 Globulin 2.9 Albumin/Globulin Ratio 1.2 Lipase Procalcitonin TSH Urine Color Urine Appearance Urine pH Ur Specific [place] Urine Protein Urine Glucose (UA) Urine Ketones Urine Occult Blood Urine Nitrate Urine Bilirubin Urine Urobilinogen Ur Leukocyte Esterase Urine RBC Urine WBC Ur Squamous Epith Cells Urine Bacteria Ur Culture Indicated? Vol Urine Centrifuged Nasal Screen MRSA (PCR) Detected H Chlamy pneumoniae PCR Adenovirus (PCR) B. pertussis DNA (PCR) B.parapertussis DNA PCR Coronavirus OC43 (PCR) Coronavirus HKU1 (PCR) Coronavirus 229E (PCR) SARS-CoV-2 (PCR) Coronavirus NL63 (PCR) Human Metapneumovir PCR Influenza Type A (PCR) Influenza Type B (PCR) M. pneumoniae (PCR) Parainfluenza 1 (PCR) Parainfluenza 2 (PCR) Parainfluenza 3 (PCR) Parainfluenza 4 (PCR) RSV (PCR) Entero/Rhino (PCR) Assessment & Plan Assessment & Plan narrative: 1. Septic shock, with acute metabolic encephalopathy, BLANCA, and #2 noted below secondary to acute cystitis with presumed ESBL organism. - continue levophed for BP support. Bedside US with collapsable IVC this afternoon, initially better with 1L fluid bolus but short lived improvement in BP. Now with PICC line placed today, and need for pressor support. Continue meropenem as UA positive and has history of ESBL infection previously, continue contact isolation. - continue IV fluids - takes 12.5 mg prednisone daily, will give stress dosing with hydrocortisone 50 q6 - discussed with tele-air tool operator, they will consult this evening. 2. Acute on chronic hypercapnic and hypoxic respiratory failure, present on admission - presumed secondary to sepsis. Initially given lasix but appears euvolemic to slightly hypovolemic. Continue IV fluids right now. manage #1 above. - currently on BiPAP, continue to monitor VBG with particular focus on PCO2. 3. Paroxysmal atrial fibrillation with RVR - takes metoprolol at home - currently in RVR after levophed started, gave 5 mg IV metoprolol, 250 mcg digoxin without much movement. Will order amiodarone infusion if remains tachycardic. - TTE ordered - anticoagulation - while NPO change apixaban to eliquis 4. COPD with possible exacerbation, present on admission - treating with stress steroids as above - replace home inhalers with formulary nebs per respiratory therapy 5. Chronic systolic heart failure, present on admission - TTE as above - not on burton-inhibition chronically - restart beta alex when improved - hold home diuretics given #1 above 6. History of recurrent ESBL UTI. - continue carbapenem as noted abvoe. 7. DM 2, present on admission - sliding scale ordered, and will continue long acting at 10 U BID until tolerating more oral intake. 8. BLANCA on Chronic kidney disease with baseline creatinine 1.3, present on admission - secondary to sepsis. Improved on repeat BMP this afternoon. Continue to follow 9. Hypothyroidism, - continue home levothyroxine once able Code: Full, surrogate is patient's daughter DVT: on apixaban, continue lovenox until tolerating a diet. I have utilized all available immediate resources to obtain, update, or review the patient's current medications. Dispo: patient admitted under inpatient status to the ICU. Return to SNF when medically stable. Additional history obtained via discussions with the ER provider. These discussions contributed to the creation of the above assessment and plan. I have reviewed patient's presenting documentation, labs, and imaging personally. I spent 55 minutes providing critical care management this patient. This excludes time spent in performing separately billed procedures. Time-Based Coding :: [TOTAL MINUTES] spent with patient and on the chart (including review of chart, obtaining history, exam, reviewing outside data, placing orders, documenting exam and treatment plan, and counseling patient) on [DATE]. Quality VTE Deep Vein Thrombosis/Pulmonary Embolism Present on Admission: No
[2024-02-28] MEDS: DIGOXIN 500 MCG/2 ML AMPUL 250 MCG IV (17:39)
--- NOTE | 2024-02-28 18:16 | DI.ECHO.S_ITS ---
[facility]+ [facility] : : [address] : : [place] : : [id number] : : Phone: [phone] Echocardiogram Report + :Name: ELLA OSHEA Study Date: 02/29/2024 Height: 66 in : :[facility] ReadingLocation: Weight: 270 lb : : Gender: Female BSA: 2.3 m2 : :: 1960 Age: 63 yrs BP: 138/92 mmHg: :Reason For Study: Cardiogenic shock : : Performed By: Materials Handling Coordinator Isa Harper : :Referring: GEORGES THORNTON : + Interpretation Summary The study quality was technically difficult. The left ventricle is mildly dilated. LVEF is difficult to estimate despite the use of Definity. The estimated LVEF appears to be 25 to 30% range. There appears to be overall significant global hypokinesis. Previous LVEF 15 to 20%. The right ventricle is grossly normal size. The right ventricular systolic function is normal.TAPSE: 2.1 cm. In comparison to previous study, RV function improved. All the valves were not well-visualized however no significant gross abnormalities seen. Procedure: A two-dimensional transthoracic echocardiogram with color flow and Doppler was performed. The study quality was technically difficult. Comparison is made with the echocardiogram of 06/28/2023. The patient was supine and unable to tolerate the probe pressure during the exam. Exam eventually terminated after Definity pictures were acquired. The patient was in normal sinus rhythm during the exam. The patient had frequent PACs during the exam. Left Ventricle: The left ventricle is mildly dilated. LVEF is difficult to estimate despite the use of Definity. The estimated LVEF appears to be 25 to 30% range. There appears to be overall significant global hypokinesis. Previous LVEF 15 to 20%. Right Ventricle: The right ventricle is grossly normal size. The right ventricular systolic function is normal. Atria: Both atria are normal in size. There is no Doppler evidence for an interatrial shunt. Mitral Valve: The mitral valve is not well visualized. The mitral valve is grossly normal. There is no mitral regurgitation noted. Aortic Valve: The aortic valve is not well visualized. There is no hemodynamically significant valvular aortic stenosis. No aortic regurgitation is present. Tricuspid Valve: The tricuspid valve is not well visualized. No tricuspid regurgitation. Pulmonic Valve: The pulmonic valve is not well visualized. There is no pulmonic valvular regurgitation. Great Vessels: The aortic root is normal size. The ascending aorta is normal in size. The aortic arch could not be visualized. The inferior vena cava was not visualized. Pericardium/ Pleura No subcostals views. Overall no significant pericardial effusion. MMode/2D Measurements & Calculations LVIDd: 5.4 cm LVOT diam: 1.9 cm LVIDs: 4.6 cm Ao root diam: 2.5 cm FS: 14.4 % asc Aorta Diam: 2.8 cm IVSd: 0.77 cm LVPWd: 0.95 cm LV cotto. diameter/BSA (cm/m^2): 2.4 LV sys. diameter/BSA (cm/m^2): 2.0 LA A2 area: 20.3 cm2 RA long axis: 5.7 cm LA A4 area: 21.3 cm2 RA area: 18.4 cm2 LA length (vol): 5.8 cm RA vol: 50.4 ml LA vol: 63.1 ml RA : 22.2 ml/m2 LA vol index: 27.8 ml/m2 RVD1 (basal): 3.9 cm TAPSE: 2.1 cm Doppler Measurements & Calculations Ao V2 max: 125.1 cm/sec LVOT Max Arturo: 72.9 cm/sec Ao V2 mean: 83.9 cm/sec LV V1 max P.1 mmHg Ao max P.3 mmHg LV V1 VTI: 15.2 cm Ao mean P.1 mmHg AMADOU(I,D): 1.9 cm2 Ao V2 VTI: 22.4 cm AMADOU(V,D): 1.6 cm2 sev ratio: 0.68 AMADOU indexed to BSA (cm^2/m^2): 0.81 MV E max arturo: 104.3 cm/sec SV(LVOT): 41.5 ml MV A max arturo: 97.0 cm/sec MV E/A: 1.1 Med Peak E' Arturo: 6.2 cm/sec E/E' med: 16.9 Lat Peak E' Arturo: 6.1 cm/sec E/E' lat: 17.2 E/e' average: 17.1 MV dec time: 0.18 sec Reading Physician:12:01 PM
--- NOTE | 2024-02-28 18:24 | PC.ADMIT ---
[email or web address] Admission Note: Pt arrived via gurney from ED, moved pt from gurney to bed with 4 person assist, connect to monitoring equipment, BP 84/57, HR 94 on BIPAP FiO2 35% sats 95-97%, Pt noted to be hypothermic 94.8 axillary, bear hugger placed on pt set to medium. Pt is unresponsive, recent ABG shows CO2 of 66.2, Babcock catheter in place and patent, draining clear, yellow urine. Dr Gillespie at bedside, new orders received. 1430 Pt placed on Levophed at 0.1 mcg/kg for BP 81/53 MAP 63, after placing on Levo, pt went into AFIB RVR rate 150-170, IVP metoprolol given (see emar), no improvement of rate. 1739 IVP Digoxin administered (see emar), no improvement of rate Dr Gillespie consulted e-embroidery cutter Dr Ramos, will start Amio gtt. when orders placed. No further pt needs at this time, bed low and locked, call light within reach, care ongoing. The patient,Mary Carmen Jett,63 y/o, was given written information regarding hospital policies, unit procedures and contact persons. Patient's smoking status: Former smoker. Vital Signs - 8 hr 02/28/24 10:28 02/28/24 10:30 02/28/24 10:30 Temperature Pulse Rate 67 65 Respiratory Rate 26 H 26 H Blood Pressure 113/59 L Pulse Oximetry 93 94 Oxygen Delivery Method BiPAP Oxygen Flow Rate Fraction of Inspired Oxygen 40 02/28/24 10:45 02/28/24 10:45 02/28/24 11:00 Temperature Pulse Rate 73 Respiratory Rate 27 H Blood Pressure 98/54 L 87/49 L Pulse Oximetry 91 Oxygen Delivery Method Oxygen Flow Rate Fraction of Inspired Oxygen 02/28/24 11:00 02/28/24 11:08 02/28/24 11:08 Temperature Pulse Rate 67 67 Respiratory Rate 26 H 29 H Blood Pressure 95/56 L Pulse Oximetry 91 90 L Oxygen Delivery Method Oxygen Flow Rate Fraction of Inspired Oxygen 02/28/24 11:14 02/28/24 11:15 02/28/24 11:15 Temperature Pulse Rate 67 Respiratory Rate 26 H Blood Pressure 99/55 L 99/55 L Pulse Oximetry 92 Oxygen Delivery Method Oxygen Flow Rate Fraction of Inspired Oxygen 38 02/28/24 11:28 02/28/24 11:30 02/28/24 11:30 Temperature 93.4 F L Pulse Rate 66 Respiratory Rate 26 H Blood Pressure 93/55 L Pulse Oximetry 92 Oxygen Delivery Method Oxygen Flow Rate Fraction of Inspired Oxygen 02/28/24 11:48 02/28/24 12:00 02/28/24 12:01 Temperature Pulse Rate 67 67 Respiratory Rate 26 H 26 H Blood Pressure Pulse Oximetry 94 93 Oxygen Delivery Method BiPAP Oxygen Flow Rate 35 Fraction of Inspired Oxygen 02/28/24 12:01 02/28/24 12:01 02/28/24 12:01 Temperature 97.3 F L Pulse Rate 68 Respiratory Rate 26 H Blood Pressure 84/57 L Pulse Oximetry 94 Oxygen Delivery Method Oxygen Flow Rate Fraction of Inspired Oxygen 02/28/24 12:09 02/28/24 12:09 02/28/24 12:30 Temperature Pulse Rate 69 Respiratory Rate 26 H Blood Pressure 78/51 L 74/52 L Pulse Oximetry 94 Oxygen Delivery Method Oxygen Flow Rate Fraction of Inspired Oxygen 02/28/24 12:30 02/28/24 13:00 02/28/24 13:01 Temperature Pulse Rate 66 62 Respiratory Rate 26 H 31 H Blood Pressure 91/55 L Pulse Oximetry 94 94 Oxygen Delivery Method Oxygen Flow Rate Fraction of Inspired Oxygen 02/28/24 13:01 02/28/24 13:30 02/28/24 13:30 Temperature Pulse Rate 62 65 Respiratory Rate 26 H 26 H Blood Pressure 91/61 Pulse Oximetry 95 96 Oxygen Delivery Method Oxygen Flow Rate Fraction of Inspired Oxygen 02/28/24 14:00 02/28/24 14:00 02/28/24 14:18 Temperature 94.8 F L Pulse Rate 67 Respiratory Rate 26 H Blood Pressure 90/51 L Pulse Oximetry 94 Oxygen Delivery Method Oxygen Flow Rate Fraction of Inspired Oxygen 02/28/24 14:19 02/28/24 14:30 02/28/24 14:30 Temperature Pulse Rate 68 Respiratory Rate 26 H Blood Pressure 81/53 L Pulse Oximetry 93 Oxygen Delivery Method BiPAP Oxygen Flow Rate Fraction of Inspired Oxygen 02/28/24 15:00 02/28/24 15:00 02/28/24 15:01 Temperature Pulse Rate 62 Respiratory Rate 26 H Blood Pressure 121/73 Pulse Oximetry 96 Oxygen Delivery Method BiPAP Oxygen Flow Rate Fraction of Inspired Oxygen 02/28/24 15:01 02/28/24 15:30 02/28/24 15:30 Temperature Pulse Rate 62 70 Respiratory Rate 26 H 27 H Blood Pressure 131/93 H Pulse Oximetry 96 96 Oxygen Delivery Method Oxygen Flow Rate Fraction of Inspired Oxygen 02/28/24 16:00 02/28/24 16:00 02/28/24 16:01 Temperature Pulse Rate 171 H Respiratory Rate 29 H Blood Pressure 172/138 H Pulse Oximetry 97 96 Oxygen Delivery Method BiPAP Oxygen Flow Rate 35 Fraction of Inspired Oxygen 02/28/24 16:30 02/28/24 16:31 02/28/24 16:31 Temperature Pulse Rate 150 H 153 H Respiratory Rate 26 H 26 H Blood Pressure 109/50 L Pulse Oximetry 97 97 Oxygen Delivery Method Oxygen Flow Rate Fraction of Inspired Oxygen 02/28/24 16:53 02/28/24 17:00 02/28/24 17:00 Temperature Pulse Rate 169 H Respiratory Rate 27 H Blood Pressure 131/93 H 99/57 L Pulse Oximetry 97 Oxygen Delivery Method Oxygen Flow Rate Fraction of Inspired Oxygen 35 02/28/24 17:30 02/28/24 17:30 02/28/24 17:39 Temperature Pulse Rate 171 H 162 H Respiratory Rate 28 H Blood Pressure 84/58 L 84/58 L Pulse Oximetry 97 Oxygen Delivery Method Oxygen Flow Rate Fraction of Inspired Oxygen 02/28/24 18:00 02/28/24 18:01 02/28/24 18:01 Temperature Pulse Rate 157 H 146 H Respiratory Rate 26 H 26 H Blood Pressure 96/62 Pulse Oximetry 97 98 Oxygen Delivery Method Oxygen Flow Rate Fraction of Inspired Oxygen 02/28/24 18:21 Temperature 98.9 F Pulse Rate Respiratory Rate Blood Pressure Pulse Oximetry Oxygen Delivery Method Oxygen Flow Rate Fraction of Inspired Oxygen
[2024-02-28] MEDS: ALBUTEROL/IPRATROPIUM 3 ML AMPUL INH (18:58)
[2024-02-28] MEDS: AMIODARONE 150 MG/100 ML PIGGYBACK 600 MG IV (19:02)
--- NOTE | 2024-02-28 19:15 | PM.CN.EICU ---
History of Present Illness Consult details IF CAMERA ACTIVATED, patient seen via real-time interactive audiovisual communication: Camera not activated Chief complaint: SOB Consent obtained for tele-exercise rider care: Yes Patient Location: ICU Provider location (State): [place] Other participants/roles: na [facility] Medical History Chronic hypercapnic respiratory failure PONCE (obstructive sleep apnea) Chronic hypoxemic respiratory failure COPD (chronic obstructive pulmonary disease) DM2 (diabetes mellitus, type 2) HTN (hypertension) Thyroiditis Systolic and diastolic CHF, chronic Obesity Surgical History S/P hernia surgery Family History Mother No pertinent past medical history Father No pertinent past medical history Social History household members: other Smoking Status: Former smoker alcohol intake: former Current Medications Current Medications Medications: Home Medications acetaminophen 325 mg tablet (Tylenol) 650 mg PO TID 05/25/22 [History Confirmed 02/28/24] budesonide-formoterol HFA 160 mcg-4.5 mcg/actuation aerosol inhaler 2 puff inhalation Q4H PRN Wheezing 05/25/22 [History Confirmed 02/28/24] cyanocobalamin (vitamin B-12) 500 mcg tablet 500 mcg PO DAILY 05/25/22 [History Confirmed 02/28/24] fenofibrate 160 mg tablet 160 mg PO BEDTIME 05/25/22 [History Confirmed 02/28/24] fluoxetine 20 mg tablet 20 mg PO DAILY 05/25/22 [History Confirmed 02/28/24] fluticasone propionate 50 mcg/actuation nasal spray,suspension 2 spray intranasal DAILY 05/25/22 [History Confirmed 02/28/24] gabapentin 300 mg capsule 300 mg PO BEDTIME 05/25/22 [History Confirmed 02/28/24] insulin lispro 100 unit/mL subcutaneous solution (Humalog U-100 Insulin) See Protocol SUBCUT TIDWM 05/25/22 [History Confirmed 02/28/24] loratadine 10 mg tablet 10 mg PO DAILY 05/25/22 [History Confirmed 02/28/24] magnesium oxide 200 mg PO BID 05/25/22 [History Confirmed 02/28/24] montelukast 10 mg tablet 10 mg PO DAILY 05/25/22 [History Confirmed 02/28/24] ondansetron 4 mg disintegrating tablet 4 mg PO Q8H PRN Nausea 05/25/22 [History Confirmed 02/28/24] rosuvastatin 40 mg tablet 40 mg PO DAILY 05/25/22 [History Confirmed 02/28/24] sennosides 8.6 mg tablet (senna) 17.2 mg PO BEDTIME 05/25/22 [History Confirmed 02/28/24] tiotropium bromide 18 mcg capsule with inhalation device (Spiriva with HandiHaler) 1 cap inhalation DAILY 05/25/22 [History Confirmed 02/28/24] trazodone 50 mg tablet 50 mg PO BEDTIME 05/25/22 [History Confirmed 02/28/24] albuterol sulfate 90 mcg/actuation aerosol inhaler 4 puff inhalation Q4H PRN Shortness Of Breath Or Wheezing 08/15/22 [History Confirmed 02/28/24] levothyroxine 175 mcg tablet 175 mcg PO DAILY 08/15/22 [History Confirmed 02/28/24] potassium chloride 10 mEq tablet,extended release 20 meq PO DAILY 08/15/22 [History Confirmed 02/28/24] torsemide 10 mg tablet 30 mg PO BEDTIME 05/20/23 [History Confirmed 02/28/24] albuterol sulfate 2.5 mg/3 mL (0.083 %) solution for nebulization 2.5 mg inhalation Q6H PRN wheezing/cough 10/24/23 [History Confirmed 02/28/24] docusate sodium 100 mg capsule 100 mg PO BID Constipation 10/24/23 [History Confirmed 02/28/24] insulin lispro 100 unit/mL subcutaneous pen 6 unit SUBCUT AC 10/24/23 [History Confirmed 02/28/24] ipratropium 0.5 mg-albuterol 3 mg (2.5 mg base)/3 mL nebulization soln 3 ml inhalation Q4H PRN COPD 10/24/23 [History Confirmed 02/28/24] polyethylene glycol 3350 17 gram oral powder packet (Miralax) 17 g PO DAILY 10/24/23 [History Confirmed 02/28/24] bupropion HCl 100 mg tablet,12 hr sustained-release 100 mg PO BID 10/31/23 [History Confirmed 02/28/24] apixaban 5 mg tablet 5 mg PO BID 02/28/24 [History Confirmed 02/28/24] empagliflozin 10 mg tablet (Jardiance) 10 mg PO DAILY 02/28/24 [History Confirmed 02/28/24] insulin glargine 100 unit/mL (3 mL) subcutaneous pen 22 unit SUBCUT QAM 02/28/24 [History Confirmed 02/28/24] insulin glargine 100 unit/mL (3 mL) subcutaneous pen 30 unit SUBCUT QPM 02/28/24 [History Confirmed 02/28/24] liraglutide 0.6 mg/0.1 mL (18 mg/3 mL) subcutaneous pen injector 1.2 mg SUBCUT DAILY 02/28/24 [History Confirmed 02/28/24] metoprolol succinate 25 mg tablet,extended release 24 hr 25 mg PO BID 02/28/24 [History Confirmed 02/28/24] prednisone 10 mg tablet 12.5 mg PO DAILY 02/28/24 [History Confirmed 02/28/24] Visit Medications (administered) Generic Name Dose Route Start Last Admin Trade Name Freq PRN Reason Stop Dose Admin Albuterol/Ipratropium 3 ml 02/28/24 19:00 02/28/24 18:58 Albuterol/Ipratropium 3 Ml Ampul INH 3 ml [id number] JAY JAY Administration Hydrocortisone 50 mg 02/28/24 18:00 02/28/24 16:41 Hydrocortisone 100 Mg/2 Ml Vial IV 50 mg Q6HR JAY JAY Administration Lactated Ringer's 1,000 mls @ 75 mls/hr 02/28/24 13:45 02/28/24 14:10 Lactated Ringers IV 75 mls/hr CONT JAY JAY Administration NOREPINEPHRINE BITARTRATE/D5W 4 mg in 250 mls @ 45.938 mls/hr 02/28/24 14:45 02/28/24 17:55 Levophed IV 0.06 mcg/kg/min TITRATE JAY JAY 27.563 mls/hr Titration Protocol 0.1 MCG/KG/MIN Insulin Human Lispro 0 unit 02/28/24 16:45 02/28/24 16:33 Insulin Lispro 100 Unit/Ml 3ml Vial SUBCUT Not Given ACHS JAY JAY Protocol Metoprolol Tartrate 5 mg 02/28/24 16:00 02/28/24 16:06 Metoprolol Tartrate 5 Mg/5 Ml Inj IV 5 mg Q6H [facility] Administration Exam Vital Signs (past 8 hours): - 02/28/24 11:28 02/28/24 11:30 02/28/24 11:30 Temperature 93.4 F L Pulse Rate 66 Respiratory Rate 26 H Blood Pressure 93/55 L Pulse Oximetry 92 Oxygen Delivery Method Oxygen Flow Rate Fraction of Inspired Oxygen 02/28/24 11:48 02/28/24 12:00 02/28/24 12:01 Temperature Pulse Rate 67 67 Respiratory Rate 26 H 26 H Blood Pressure Pulse Oximetry 94 93 Oxygen Delivery Method BiPAP Oxygen Flow Rate 35 Fraction of Inspired Oxygen 02/28/24 12:01 02/28/24 12:01 02/28/24 12:01 Temperature 97.3 F L Pulse Rate 68 Respiratory Rate 26 H Blood Pressure 84/57 L Pulse Oximetry 94 Oxygen Delivery Method Oxygen Flow Rate Fraction of Inspired Oxygen 02/28/24 12:09 02/28/24 12:09 02/28/24 12:30 Temperature Pulse Rate 69 Respiratory Rate 26 H Blood Pressure 78/51 L 74/52 L Pulse Oximetry 94 Oxygen Delivery Method Oxygen Flow Rate Fraction of Inspired Oxygen 02/28/24 12:30 02/28/24 13:00 02/28/24 13:01 Temperature Pulse Rate 66 62 Respiratory Rate 26 H 31 H Blood Pressure 91/55 L Pulse Oximetry 94 94 Oxygen Delivery Method Oxygen Flow Rate Fraction of Inspired Oxygen 02/28/24 13:01 02/28/24 13:30 02/28/24 13:30 Temperature Pulse Rate 62 65 Respiratory Rate 26 H 26 H Blood Pressure 91/61 Pulse Oximetry 95 96 Oxygen Delivery Method Oxygen Flow Rate Fraction of Inspired Oxygen 02/28/24 14:00 02/28/24 14:00 02/28/24 14:18 Temperature 94.8 F L Pulse Rate 67 Respiratory Rate 26 H Blood Pressure 90/51 L Pulse Oximetry 94 Oxygen Delivery Method Oxygen Flow Rate Fraction of Inspired Oxygen 02/28/24 14:19 02/28/24 14:30 02/28/24 14:30 Temperature Pulse Rate 68 Respiratory Rate 26 H Blood Pressure 81/53 L Pulse Oximetry 93 Oxygen Delivery Method BiPAP Oxygen Flow Rate Fraction of Inspired Oxygen 02/28/24 15:00 02/28/24 15:00 02/28/24 15:01 Temperature Pulse Rate 62 Respiratory Rate 26 H Blood Pressure 121/73 Pulse Oximetry 96 Oxygen Delivery Method BiPAP Oxygen Flow Rate Fraction of Inspired Oxygen 02/28/24 15:01 02/28/24 15:30 02/28/24 15:30 Temperature Pulse Rate 62 70 Respiratory Rate 26 H 27 H Blood Pressure 131/93 H Pulse Oximetry 96 96 Oxygen Delivery Method Oxygen Flow Rate Fraction of Inspired Oxygen 02/28/24 16:00 02/28/24 16:00 02/28/24 16:01 Temperature Pulse Rate 171 H Respiratory Rate 29 H Blood Pressure 172/138 H Pulse Oximetry 97 96 Oxygen Delivery Method BiPAP Oxygen Flow Rate 35 Fraction of Inspired Oxygen 02/28/24 16:30 02/28/24 16:31 02/28/24 16:31 Temperature Pulse Rate 150 H 153 H Respiratory Rate 26 H 26 H Blood Pressure 109/50 L Pulse Oximetry 97 97 Oxygen Delivery Method Oxygen Flow Rate Fraction of Inspired Oxygen 02/28/24 16:53 02/28/24 17:00 02/28/24 17:00 Temperature Pulse Rate 169 H Respiratory Rate 27 H Blood Pressure 131/93 H 99/57 L Pulse Oximetry 97 Oxygen Delivery Method Oxygen Flow Rate Fraction of Inspired Oxygen 35 02/28/24 17:30 02/28/24 17:30 02/28/24 17:39 Temperature Pulse Rate 171 H 162 H Respiratory Rate 28 H Blood Pressure 84/58 L 84/58 L Pulse Oximetry 97 Oxygen Delivery Method Oxygen Flow Rate Fraction of Inspired Oxygen 02/28/24 18:00 02/28/24 18:01 02/28/24 18:01 Temperature Pulse Rate 157 H 146 H Respiratory Rate 26 H 26 H Blood Pressure 96/62 Pulse Oximetry 97 98 Oxygen Delivery Method Oxygen Flow Rate Fraction of Inspired Oxygen 02/28/24 18:21 Temperature 98.9 F Pulse Rate Respiratory Rate Blood Pressure Pulse Oximetry Oxygen Delivery Method Oxygen Flow Rate Fraction of Inspired Oxygen Fraction of Inspired Oxygen 35 SaO2/FiO2 Ratio 235 Oxygen Delivery Method BiPAP Oxygen Flow Rate 35 Objective ECG Impression: NSR with PAC Labs 02/28/24 07:18 02/28/24 16:00 Labs: Laboratory Results - last 24 hr 02/28/24 02/28/24 02/28/24 07:18 07:32 07:50 WBC 13.0 H RBC 4.30 Hgb 14.4 Hct 45.0 MCV 104.8 H MCH 33.4 MCHC 31.9 RDW 17.7 H Plt Count 307 Neut % (Auto) 73.2 Lymph % (Auto) 17.1 L [place] % (Auto) 8.0 Eos % (Auto) 0.7 L Baso % (Auto) 1.0 Neut # (Auto) 9500 H Lymph # (Auto) 2200 [place] # (Auto) 1000 H Eos # (Auto) 100 Baso # (Auto) 100 ABG Sample Site ABG pH ABG pCO2 ABG pO2 ABG HCO3 ABG Total CO2 ABG O2 Saturation ABG Base Excess Ramon Test Respiration Rate O2 Delivery Device Oxygen Liter Flow Mode of Support FiO2 % Tidal Volume Pressure Support PEEP or CPAP Sodium 143 Potassium 4.2 Chloride 98 Carbon Dioxide 36 H BUN 56 H Creatinine 2.28 H Estimated GFR 24 L BUN/Creatinine Ratio 24.6 H Glucose 75 L Lactate 1.3 Calcium 10.3 H Magnesium 2.7 H Total Bilirubin 0.6 AST 158 H ALT 84 H Alkaline Phosphatase 43 Ammonia < 9 L Total Creatine Kinase 84 Troponin I 0.122 H* NT-Pro-B Natriuret Pep 89615 H Total Protein 7.8 Albumin 4.2 Globulin 3.6 Albumin/Globulin Ratio 1.2 Lipase 28 Procalcitonin 0.345 TSH 1.40 Urine Color Urine Appearance Urine pH Ur Specific [place] Urine Protein Urine Glucose (UA) Urine Ketones Urine Occult Blood Urine Nitrate Urine Bilirubin Urine Urobilinogen Ur Leukocyte Esterase Urine RBC Urine WBC Ur Squamous Epith Cells Urine Bacteria Ur Culture Indicated? Vol Urine Centrifuged Nasal Screen MRSA (PCR) Chlamy pneumoniae PCR Not detected Adenovirus (PCR) Not detected B. pertussis DNA (PCR) Not detected B.parapertussis DNA PCR Not detected Coronavirus OC43 (PCR) Not detected Coronavirus HKU1 (PCR) Not detected Coronavirus 229E (PCR) Not detected SARS-CoV-2 (PCR) Not detected Coronavirus NL63 (PCR) Not detected Human Metapneumovir PCR Not detected Influenza Type A (PCR) Not detected Influenza Type B (PCR) Not detected M. pneumoniae (PCR) Not detected Parainfluenza 1 (PCR) Not detected Parainfluenza 2 (PCR) Not detected Parainfluenza 3 (PCR) Not detected Parainfluenza 4 (PCR) Not detected RSV (PCR) Not detected Entero/Rhino (PCR) Not detected 02/28/24 02/28/24 02/28/24 08:03 08:03 08:03 WBC RBC Hgb Hct MCV MCH MCHC RDW Plt Count Neut % (Auto) Lymph % (Auto) [place] % (Auto) Eos % (Auto) Baso % (Auto) Neut # (Auto) Lymph # (Auto) [place] # (Auto) Eos # (Auto) Baso # (Auto) ABG Sample Site Cancelled Left radial ABG pH Cancelled 7.30 L ABG pCO2 Cancelled ABG pO2 ABG HCO3 ABG Total CO2 ABG O2 Saturation ABG Base Excess Ramon Test Respiration Rate O2 Delivery Device Oxygen Liter Flow Mode of Support FiO2 % Tidal Volume Pressure Support PEEP or CPAP Sodium Potassium Chloride Carbon Dioxide BUN Creatinine Estimated GFR BUN/Creatinine Ratio Glucose Lactate Calcium Magnesium Total Bilirubin AST ALT Alkaline Phosphatase Ammonia Total Creatine Kinase Troponin I NT-Pro-B Natriuret Pep Total Protein Albumin Globulin Albumin/Globulin Ratio Lipase Procalcitonin TSH Urine Color Urine Appearance Urine pH Ur Specific [place] Urine Protein Urine Glucose (UA) Urine Ketones Urine Occult Blood Urine Nitrate Urine Bilirubin Urine Urobilinogen Ur Leukocyte Esterase Urine RBC Urine WBC Ur Squamous Epith Cells Urine Bacteria Ur Culture Indicated? Vol Urine Centrifuged Nasal Screen MRSA (PCR) Chlamy pneumoniae PCR Adenovirus (PCR) B. pertussis DNA (PCR) B.parapertussis DNA PCR Coronavirus OC43 (PCR) Coronavirus HKU1 (PCR) Coronavirus 229E (PCR) SARS-CoV-2 (PCR) Coronavirus NL63 (PCR) Human Metapneumovir PCR Influenza Type A (PCR) Influenza Type B (PCR) M. pneumoniae (PCR) Parainfluenza 1 (PCR) Parainfluenza 2 (PCR) Parainfluenza 3 (PCR) Parainfluenza 4 (PCR) RSV (PCR) Entero/Rhino (PCR) 02/28/24 02/28/24 02/28/24 08:03 08:03 08:03 WBC RBC Hgb Hct MCV MCH MCHC RDW Plt Count Neut % (Auto) Lymph % (Auto) [place] % (Auto) Eos % (Auto) Baso % (Auto) Neut # (Auto) Lymph # (Auto) [place] # (Auto) Eos # (Auto) Baso # (Auto) ABG Sample Site ABG pH ABG pCO2 66.2 H* ABG pO2 Cancelled 66 L ABG HCO3 Cancelled 33 H ABG Total CO2 Cancelled ABG O2 Saturation ABG Base Excess Ramon Test Respiration Rate O2 Delivery Device Oxygen Liter Flow Mode of Support FiO2 % Tidal Volume Pressure Support PEEP or CPAP Sodium Potassium Chloride Carbon Dioxide BUN Creatinine Estimated GFR BUN/Creatinine Ratio Glucose Lactate Calcium Magnesium Total Bilirubin AST ALT Alkaline Phosphatase Ammonia Total Creatine Kinase Troponin I NT-Pro-B Natriuret Pep Total Protein Albumin Globulin Albumin/Globulin Ratio Lipase Procalcitonin TSH Urine Color Urine Appearance Urine pH Ur Specific [place] Urine Protein Urine Glucose (UA) Urine Ketones Urine Occult Blood Urine Nitrate Urine Bilirubin Urine Urobilinogen Ur Leukocyte Esterase Urine RBC Urine WBC Ur Squamous Epith Cells Urine Bacteria Ur Culture Indicated? Vol Urine Centrifuged Nasal Screen MRSA (PCR) Chlamy pneumoniae PCR Adenovirus (PCR) B. pertussis DNA (PCR) B.parapertussis DNA PCR Coronavirus OC43 (PCR) Coronavirus HKU1 (PCR) Coronavirus 229E (PCR) SARS-CoV-2 (PCR) Coronavirus NL63 (PCR) Human Metapneumovir PCR Influenza Type A (PCR) Influenza Type B (PCR) M. pneumoniae (PCR) Parainfluenza 1 (PCR) Parainfluenza 2 (PCR) Parainfluenza 3 (PCR) Parainfluenza 4 (PCR) RSV (PCR) Entero/Rhino (PCR) 02/28/24 02/28/24 02/28/24 08:03 08:03 08:03 WBC RBC Hgb Hct MCV MCH MCHC RDW Plt Count Neut % (Auto) Lymph % (Auto) [place] % (Auto) Eos % (Auto) Baso % (Auto) Neut # (Auto) Lymph # (Auto) [place] # (Auto) Eos # (Auto) Baso # (Auto) ABG Sample Site ABG pH ABG pCO2 ABG pO2 ABG HCO3 ABG Total CO2 32 H ABG O2 Saturation Cancelled 90 L ABG Base Excess Cancelled 4.0 H Ramon Test Cancelled Respiration Rate O2 Delivery Device Oxygen Liter Flow Mode of Support FiO2 % Tidal Volume Pressure Support PEEP or CPAP Sodium Potassium Chloride Carbon Dioxide BUN Creatinine Estimated GFR BUN/Creatinine Ratio Glucose Lactate Calcium Magnesium Total Bilirubin AST ALT Alkaline Phosphatase Ammonia Total Creatine Kinase Troponin I NT-Pro-B Natriuret Pep Total Protein Albumin Globulin Albumin/Globulin Ratio Lipase Procalcitonin TSH Urine Color Urine Appearance Urine pH Ur Specific [place] Urine Protein Urine Glucose (UA) Urine Ketones Urine Occult Blood Urine Nitrate Urine Bilirubin Urine Urobilinogen Ur Leukocyte Esterase Urine RBC Urine WBC Ur Squamous Epith Cells Urine Bacteria Ur Culture Indicated? Vol Urine Centrifuged Nasal Screen MRSA (PCR) Chlamy pneumoniae PCR Adenovirus (PCR) B. pertussis DNA (PCR) B.parapertussis DNA PCR Coronavirus OC43 (PCR) Coronavirus HKU1 (PCR) Coronavirus 229E (PCR) SARS-CoV-2 (PCR) Coronavirus NL63 (PCR) Human Metapneumovir PCR Influenza Type A (PCR) Influenza Type B (PCR) M. pneumoniae (PCR) Parainfluenza 1 (PCR) Parainfluenza 2 (PCR) Parainfluenza 3 (PCR) Parainfluenza 4 (PCR) RSV (PCR) Entero/Rhino (PCR) 02/28/24 02/28/24 02/28/24 08:03 08:03 08:03 WBC RBC Hgb Hct MCV MCH MCHC RDW Plt Count Neut % (Auto) Lymph % (Auto) [place] % (Auto) Eos % (Auto) Baso % (Auto) Neut # (Auto) Lymph # (Auto) [place] # (Auto) Eos # (Auto) Baso # (Auto) ABG Sample Site ABG pH ABG pCO2 ABG pO2 ABG HCO3 ABG Total CO2 ABG O2 Saturation ABG Base Excess Ramon Test Yes, passed Respiration Rate Cancelled 26 O2 Delivery Device Cancelled Bipap Oxygen Liter Flow Cancelled Mode of Support Cancelled FiO2 % Tidal Volume Pressure Support PEEP or CPAP Sodium Potassium Chloride Carbon Dioxide BUN Creatinine Estimated GFR BUN/Creatinine Ratio Glucose Lactate Calcium Magnesium Total Bilirubin AST ALT Alkaline Phosphatase Ammonia Total Creatine Kinase Troponin I NT-Pro-B Natriuret Pep Total Protein Albumin Globulin Albumin/Globulin Ratio Lipase Procalcitonin TSH Urine Color Urine Appearance Urine pH Ur Specific [place] Urine Protein Urine Glucose (UA) Urine Ketones Urine Occult Blood Urine Nitrate Urine Bilirubin Urine Urobilinogen Ur Leukocyte Esterase Urine RBC Urine WBC Ur Squamous Epith Cells Urine Bacteria Ur Culture Indicated? Vol Urine Centrifuged Nasal Screen MRSA (PCR) Chlamy pneumoniae PCR Adenovirus (PCR) B. pertussis DNA (PCR) B.parapertussis DNA PCR Coronavirus OC43 (PCR) Coronavirus HKU1 (PCR) Coronavirus 229E (PCR) SARS-CoV-2 (PCR) Coronavirus NL63 (PCR) Human Metapneumovir PCR Influenza Type A (PCR) Influenza Type B (PCR) M. pneumoniae (PCR) Parainfluenza 1 (PCR) Parainfluenza 2 (PCR) Parainfluenza 3 (PCR) Parainfluenza 4 (PCR) RSV (PCR) Entero/Rhino (PCR) 02/28/24 02/28/24 02/28/24 08:03 08:03 08:03 WBC RBC Hgb Hct MCV MCH MCHC RDW Plt Count Neut % (Auto) Lymph % (Auto) [place] % (Auto) Eos % (Auto) Baso % (Auto) Neut # (Auto) Lymph # (Auto) [place] # (Auto) Eos # (Auto) Baso # (Auto) ABG Sample Site ABG pH ABG pCO2 ABG pO2 ABG HCO3 ABG Total CO2 ABG O2 Saturation ABG Base Excess Ramon Test Respiration Rate O2 Delivery Device Oxygen Liter Flow Mode of Support Avaps FiO2 % Cancelled 35 Tidal Volume Cancelled 500 Pressure Support Cancelled PEEP or CPAP Cancelled Sodium Potassium Chloride Carbon Dioxide BUN Creatinine Estimated GFR BUN/Creatinine Ratio Glucose Lactate Calcium Magnesium Total Bilirubin AST ALT Alkaline Phosphatase Ammonia Total Creatine Kinase Troponin I NT-Pro-B Natriuret Pep Total Protein Albumin Globulin Albumin/Globulin Ratio Lipase Procalcitonin TSH Urine Color Urine Appearance Urine pH Ur Specific [place] Urine Protein Urine Glucose (UA) Urine Ketones Urine Occult Blood Urine Nitrate Urine Bilirubin Urine Urobilinogen Ur Leukocyte Esterase Urine RBC Urine WBC Ur Squamous Epith Cells Urine Bacteria Ur Culture Indicated? Vol Urine Centrifuged Nasal Screen MRSA (PCR) Chlamy pneumoniae PCR Adenovirus (PCR) B. pertussis DNA (PCR) B.parapertussis DNA PCR Coronavirus OC43 (PCR) Coronavirus HKU1 (PCR) Coronavirus 229E (PCR) SARS-CoV-2 (PCR) Coronavirus NL63 (PCR) Human Metapneumovir PCR Influenza Type A (PCR) Influenza Type B (PCR) M. pneumoniae (PCR) Parainfluenza 1 (PCR) Parainfluenza 2 (PCR) Parainfluenza 3 (PCR) Parainfluenza 4 (PCR) RSV (PCR) Entero/Rhino (PCR) 02/28/24 02/28/24 02/28/24 08:03 09:33 10:41 WBC RBC Hgb Hct MCV MCH MCHC RDW Plt Count Neut % (Auto) Lymph % (Auto) [place] % (Auto) Eos % (Auto) Baso % (Auto) Neut # (Auto) Lymph # (Auto) [place] # (Auto) Eos # (Auto) Baso # (Auto) ABG Sample Site ABG pH ABG pCO2 ABG pO2 ABG HCO3 ABG Total CO2 ABG O2 Saturation ABG Base Excess Ramon Test Respiration Rate O2 Delivery Device Oxygen Liter Flow Mode of Support FiO2 % Tidal Volume Pressure Support PEEP or CPAP 6 Sodium Potassium Chloride Carbon Dioxide BUN Creatinine Estimated GFR BUN/Creatinine Ratio Glucose Lactate Calcium Magnesium Total Bilirubin AST ALT Alkaline Phosphatase Ammonia Total Creatine Kinase 70 Troponin I 0.105 H NT-Pro-B Natriuret Pep Total Protein Albumin Globulin Albumin/Globulin Ratio Lipase Procalcitonin TSH Urine Color Yellow Urine Appearance Clear Urine pH 5.5 Ur Specific [place] 1.015 Urine Protein Negative Urine Glucose (UA) 2+ H Urine Ketones Negative Urine Occult Blood Trace-intact Urine Nitrate Positive H Urine Bilirubin Negative Urine Urobilinogen 0.2 Ur Leukocyte Esterase 1+ H Urine RBC 0-1/hpf Urine WBC 5-10/hpf H Ur Squamous Epith Cells 0-1 /hpf Urine Bacteria Many (>30) H Ur Culture Indicated? Specimen cultured Vol Urine Centrifuged 10ml (spun) Nasal Screen MRSA (PCR) Chlamy pneumoniae PCR Adenovirus (PCR) B. pertussis DNA (PCR) B.parapertussis DNA PCR Coronavirus OC43 (PCR) Coronavirus HKU1 (PCR) Coronavirus 229E (PCR) SARS-CoV-2 (PCR) Coronavirus NL63 (PCR) Human Metapneumovir PCR Influenza Type A (PCR) Influenza Type B (PCR) M. pneumoniae (PCR) Parainfluenza 1 (PCR) Parainfluenza 2 (PCR) Parainfluenza 3 (PCR) Parainfluenza 4 (PCR) RSV (PCR) Entero/Rhino (PCR) 02/28/24 02/28/24 12:10 16:00 WBC RBC Hgb Hct MCV MCH MCHC RDW Plt Count Neut % (Auto) Lymph % (Auto) [place] % (Auto) Eos % (Auto) Baso % (Auto) Neut # (Auto) Lymph # (Auto) [place] # (Auto) Eos # (Auto) Baso # (Auto) ABG Sample Site ABG pH ABG pCO2 ABG pO2 ABG HCO3 ABG Total CO2 ABG O2 Saturation ABG Base Excess Ramon Test Respiration Rate O2 Delivery Device Oxygen Liter Flow Mode of Support FiO2 % Tidal Volume Pressure Support PEEP or CPAP Sodium 139 Potassium 4.6 Chloride 101 Carbon Dioxide 32 BUN 51 H Creatinine 1.86 H Estimated GFR 30 L BUN/Creatinine Ratio 27.4 H Glucose 176 H D Lactate Calcium 9.4 Magnesium Total Bilirubin 0.7 AST 198 H ALT 84 H Alkaline Phosphatase 29 L Ammonia Total Creatine Kinase Troponin I NT-Pro-B Natriuret Pep Total Protein 6.5 Albumin 3.6 Globulin 2.9 Albumin/Globulin Ratio 1.2 Lipase Procalcitonin TSH Urine Color Urine Appearance Urine pH Ur Specific [place] Urine Protein Urine Glucose (UA) Urine Ketones Urine Occult Blood Urine Nitrate Urine Bilirubin Urine Urobilinogen Ur Leukocyte Esterase Urine RBC Urine WBC Ur Squamous Epith Cells Urine Bacteria Ur Culture Indicated? Vol Urine Centrifuged Nasal Screen MRSA (PCR) Detected H Chlamy pneumoniae PCR Adenovirus (PCR) B. pertussis DNA (PCR) B.parapertussis DNA PCR Coronavirus OC43 (PCR) Coronavirus HKU1 (PCR) Coronavirus 229E (PCR) SARS-CoV-2 (PCR) Coronavirus NL63 (PCR) Human Metapneumovir PCR Influenza Type A (PCR) Influenza Type B (PCR) M. pneumoniae (PCR) Parainfluenza 1 (PCR) Parainfluenza 2 (PCR) Parainfluenza 3 (PCR) Parainfluenza 4 (PCR) RSV (PCR) Entero/Rhino (PCR) Assessment & Plan Assessment & Plan narrative: 63yo F with history of COPD, PONCE, hypercapnic respiratory failure, CHF with EF 25%, mod RV dysfunction, DM, HTN, obesity who presents to the ICU for hypercapnic respiratory failure, hypotension and encephalopathy. N: Encephalopathy - due critical illness and relative hypercarbia and acidosis - avoid sedation - daily awakening trials Resp: COPD on bipap currently, CO2 are relative baseline, lower pH due to lower bicarb compared to normal, no wheezing on exam home inhaners, singular when able to tolerate PO - schedule nebs Q4 - scheduled stress dose steroids with home chronic pred use - NPO CV: Shock: septic vs. cardiogenic - borderline positive UTI with history of frequent UTI, follow urine culture, BC - CXR with chronic LLL opacity unchanged from prior, procal < 0.5 leaning away from infection - stress dose steroids with 100Q8 hydrocort - continue meropenem for now, add vanc for recent hospitalizations and prior + MRSA, follow up cultures, d/c if negative Hx of CHF with low EF - BNP elevated, recommend sending lactate, central mixed venous sat via PICC to determine cardiac function - d/c IVF, bolus if needed once CHF ruled out - wean levo to kep MAP > 65 Afib RVR - likely due to underlying respiratory or cardiac process, s/p metop and dig - d/c metop with current shock and concern for cardiogenic shock - amio bolus and drip - monitor electrolytes, no repletion needed currently - on home apixban, transitioned to lovenox while NPO GI: NPO : BLANCA on CKD - creatinine 1.3-1.8, at relative baseline - monitor UOP ID: Hx of UTI with mildly positive UTI - karen, follow Urine culture Heme: lovenox Endo: DM - on significant insulin at home, glucose 70s on admissionto 176, currently NPO, restart home lantus, add ISS hypothyroidism - home synthroid Time-Based Coding :: 60 minutes spent with patient and on the chart (including review of chart, obtaining history, exam, reviewing outside data, placing orders, documenting exam and treatment plan, and counseling patient) on 02/28/2024.
[2024-02-28] MEDS: AMIODARONE 360 MG/200 ML PIGGYBACK 33.33 MG IV (19:21)
[2024-02-28] MEDS: BUDESONIDE 0.5 MG/2 ML NEB INH (19:25)
[2024-02-28] MEDS: VANCOMYCIN 1,250 MG/250 ML PIGGYBACK 250 MG IV (20:44)
[2024-02-28 20:51] LABS: Lactate (Lactic Acid) 1.2 mmol/L (0.7-2.1)
[2024-02-28] MEDS: MEROPENEM 1 GM in SODIUM CHLORIDE 0.9% 100 ML IV (21:16)
[2024-02-28] MEDS: INSULIN GLARGINE 100 UNIT/ML 3ML PEN 10 UNIT SUBCUT (21:16)
[2024-02-28] MEDS: ENOXAPARIN 60 MG/0.6 ML SYRINGE 120 MG SUBCUT (21:17)
[2024-02-28] MEDS: HYDROCORTISONE 100 MG/2 ML VIAL IV (21:18)
[2024-02-28 21:27] LABS: Base Excess VBG 7.3 mmol/L (0-4); HCO3 VBG 35 mmol/L (24-28); Oxygen Saturation VBG 68 % (70-75); PCO2 VBG 58.2 mmHg (45-50); PO2 VBG 37 mmHg (35-45); Total CO2 VBG 34 mmol/L (24-29); pH VBG 7.38 (7.33-7.43)
[2024-02-29] VITALS (81 sets, daily range): BP systolic 78–185; BP diastolic 40–131; PULSE 61–183; RESP 24–51; TEMP 30–36.7; O2SAT 78–99
[2024-02-29] MEDS: AMIODARONE 360 MG/200 ML PIGGYBACK 16.667 MG IV (01:11)
[2024-02-29] MEDS: NOREPINEPHRINE BITARTRATE/D5W 4 MG/250 ML PLAST..BAG 13.781 MG IV (03:49)
[2024-02-29 05:02] LABS: Add Manual Diff / Slide Review NO; Basophils Absolute Auto 100 /uL (0-100); Basophils Percent Auto 0.6 % (0-2); Eosinophils Absolute Auto 0 /uL (0-450); Hematocrit 38.7 % (36-46); Hemoglobin 12.4 g/dL (12.0-16.0); Lymphocytes Absolute Auto 1400 /uL (1100-4500); Lymphocytes Percent Auto 10.7 % (25-40); Mean Corpuscular HGB Conc 32.1 % (30-36); Mean Corpuscular Hemoglobin 33.1 PG (26-34); Mean Corpuscular Volume 103.3 fL (80-100); Monocytes Absolute Auto 500 /uL (0-900); Monocytes Percent Auto 3.8 % (3-14); Neutrophils Absolute Auto 11000 /uL (1500-7000); Neutrophils Percent Auto 84.9 % (50-75); Platelet Count 296 X10^3/uL (150-400); Red Blood Cell Count 3.74 X10^6/uL (4.0-5.2); Red Cell Distribution Width 17.5 % (11.6-14.8)
[2024-02-29 05:09] LABS: Alanine Aminotransferase 87 IU/L (<35); Albumin 3.1 g/dL (3.5-5.0); Albumin Globulin Ratio 1.3 (1.0-2.8); Alkaline Phosphatase 41 U/L (38-126); Aspartate Aminotransferase 132 IU/L (14-36); BUN Creatinine Ratio 31.1 (6-22); Bilirubin Total 0.6 mg/dL (0.2-1.3); Blood Urea Nitrogen 55 mg/dL (7-17); Calcium 9.5 mg/dL (8.4-10.2); Carbon Dioxide 32 mmol/L (22-32); Chloride 100 mmol/L (98-107); Estimated Glomerular Filt Rate 32 mL/min (>60); Globulin 2.4 g/dL (1.7-4.1); Glucose 179 mg/dL (80-110); HEMOLYSIS < 15 (0-50); Magnesium 2.3 mg/dL (1.6-2.3); Potassium 3.7 mmol/L (3.4-5.1); Sodium 142 mmol/L (137-145); Total Protein 5.5 g/dL (6.3-8.2)
[2024-02-29] MEDS: HYDROCORTISONE 100 MG/2 ML VIAL IV ×3 (05:57→21:47)
[2024-02-29] MEDS: INSULIN LISPRO 100 UNIT/ML 3ML VIAL SUBCUT ×4 (06:02→21:18)
--- NOTE | 2024-02-29 06:46 | PC.NURSE ---
pt awake and conversing this morning; remains on bipap w/ fio2-28%; amiodarone at 16.7ml/hr and levophed at 0.03mcg/kg/min
[2024-02-29] MEDS: ALBUTEROL/IPRATROPIUM 3 ML AMPUL INH ×5 (07:44→22:39)
[2024-02-29] MEDS: BUDESONIDE 0.5 MG/2 ML NEB INH ×2 (07:44→18:19)
[2024-02-29] MEDS: PANTOPRAZOLE 40 MG VIAL IV (08:44)
[2024-02-29] MEDS: ENOXAPARIN 60 MG/0.6 ML SYRINGE 120 MG SUBCUT (08:44)
[2024-02-29] MEDS: MEROPENEM 1 GM in SODIUM CHLORIDE 0.9% 100 ML IV ×2 (08:44→21:47)
[2024-02-29] MEDS: INSULIN GLARGINE 100 UNIT/ML 3ML PEN 10 UNIT SUBCUT ×2 (08:45→21:16)
--- NOTE | 2024-02-29 09:36 | P.TELICUPN_ITS ---
Subjective Subjective IF CAMERA ACTIVATED, patient seen via real-time interactive audiovisual communication: Camera activated Date Patient Seen: 02/29/24 Consent obtained for tele-aircraft accessories mechanic care: Yes Patient Location: ICU Provider location (State): [place] Other participants/roles: Dr. Gillespie, bedside RN Interval history: Patient is greatly improved from yesterday. Is off bipap, wearing NC sitting in bed and eating breakfast she remains on levophed at 0.03 mcg/kg/min Her HR is 70's-100 still in AF, on amio iv protoco urine growing GNR, not yet final MRSA screen + Current Medications Current Medications Medications: Home Medications acetaminophen 325 mg tablet (Tylenol) 650 mg PO TID 05/25/22 [History Confirmed 02/28/24] budesonide-formoterol HFA 160 mcg-4.5 mcg/actuation aerosol inhaler 2 puff inhalation Q4H PRN Wheezing 05/25/22 [History Confirmed 02/28/24] cyanocobalamin (vitamin B-12) 500 mcg tablet 500 mcg PO DAILY 05/25/22 [History Confirmed 02/28/24] fenofibrate 160 mg tablet 160 mg PO BEDTIME 05/25/22 [History Confirmed 02/28/24] fluoxetine 20 mg tablet 20 mg PO DAILY 05/25/22 [History Confirmed 02/28/24] fluticasone propionate 50 mcg/actuation nasal spray,suspension 2 spray intranasal DAILY 05/25/22 [History Confirmed 02/28/24] gabapentin 300 mg capsule 300 mg PO BEDTIME 05/25/22 [History Confirmed 02/28/24] insulin lispro 100 unit/mL subcutaneous solution (Humalog U-100 Insulin) See Protocol SUBCUT TIDWM 05/25/22 [History Confirmed 02/28/24] loratadine 10 mg tablet 10 mg PO DAILY 05/25/22 [History Confirmed 02/28/24] magnesium oxide 200 mg PO BID 05/25/22 [History Confirmed 02/28/24] montelukast 10 mg tablet 10 mg PO DAILY 05/25/22 [History Confirmed 02/28/24] ondansetron 4 mg disintegrating tablet 4 mg PO Q8H PRN Nausea 05/25/22 [History Confirmed 02/28/24] rosuvastatin 40 mg tablet 40 mg PO DAILY 05/25/22 [History Confirmed 02/28/24] sennosides 8.6 mg tablet (senna) 17.2 mg PO BEDTIME 05/25/22 [History Confirmed 02/28/24] tiotropium bromide 18 mcg capsule with inhalation device (Spiriva with HandiHaler) 1 cap inhalation DAILY 05/25/22 [History Confirmed 02/28/24] trazodone 50 mg tablet 50 mg PO BEDTIME 05/25/22 [History Confirmed 02/28/24] albuterol sulfate 90 mcg/actuation aerosol inhaler 4 puff inhalation Q4H PRN Shortness Of Breath Or Wheezing 08/15/22 [History Confirmed 02/28/24] levothyroxine 175 mcg tablet 175 mcg PO DAILY 08/15/22 [History Confirmed 02/28/24] potassium chloride 10 mEq tablet,extended release 20 meq PO DAILY 08/15/22 [History Confirmed 02/28/24] torsemide 10 mg tablet 30 mg PO BEDTIME 05/20/23 [History Confirmed 02/28/24] albuterol sulfate 2.5 mg/3 mL (0.083 %) solution for nebulization 2.5 mg inhalation Q6H PRN wheezing/cough 10/24/23 [History Confirmed 02/28/24] docusate sodium 100 mg capsule 100 mg PO BID Constipation 10/24/23 [History Confirmed 02/28/24] insulin lispro 100 unit/mL subcutaneous pen 6 unit SUBCUT AC 10/24/23 [History Confirmed 02/28/24] ipratropium 0.5 mg-albuterol 3 mg (2.5 mg base)/3 mL nebulization soln 3 ml inhalation Q4H PRN COPD 10/24/23 [History Confirmed 02/28/24] polyethylene glycol 3350 17 gram oral powder packet (Miralax) 17 g PO DAILY 10/24/23 [History Confirmed 02/28/24] bupropion HCl 100 mg tablet,12 hr sustained-release 100 mg PO BID 10/31/23 [History Confirmed 02/28/24] apixaban 5 mg tablet 5 mg PO BID 02/28/24 [History Confirmed 02/28/24] empagliflozin 10 mg tablet (Jardiance) 10 mg PO DAILY 02/28/24 [History Confirmed 02/28/24] insulin glargine 100 unit/mL (3 mL) subcutaneous pen 22 unit SUBCUT QAM 02/28/24 [History Confirmed 02/28/24] insulin glargine 100 unit/mL (3 mL) subcutaneous pen 30 unit SUBCUT QPM 02/28/24 [History Confirmed 02/28/24] liraglutide 0.6 mg/0.1 mL (18 mg/3 mL) subcutaneous pen injector 1.2 mg SUBCUT DAILY 02/28/24 [History Confirmed 02/28/24] metoprolol succinate 25 mg tablet,extended release 24 hr 25 mg PO BID 02/28/24 [History Confirmed 02/28/24] prednisone 10 mg tablet 12.5 mg PO DAILY 02/28/24 [History Confirmed 02/28/24] Visit Medications (administered) Generic Name Dose Route Start Last Admin Trade Name Freq PRN Reason Stop Dose Admin Albuterol/Ipratropium 3 ml 02/28/24 19:00 02/29/24 07:44 Albuterol/Ipratropium 3 Ml Ampul INH 3 ml [id number] JAY JAY Administration Budesonide 0.5 mg 02/28/24 20:00 02/29/24 07:44 Budesonide 0.5 Mg/2 Ml Neb INH 0.5 mg RTBID JAY JAY Administration Hydrocortisone 100 mg 02/28/24 22:00 02/29/24 05:57 Hydrocortisone 100 Mg/2 Ml Vial IV 100 mg Q8HR JAY JAY Administration Meropenem 1 gm/ Sodium 100 mls @ 200 mls/hr 02/28/24 21:00 02/29/24 08:44 Chloride IV 200 mls/hr Q12H JAY JAY Administration NOREPINEPHRINE BITARTRATE/D5W 4 mg in 250 mls @ 45.938 mls/hr 02/28/24 14:45 02/29/24 03:49 Levophed IV 0.03 mcg/kg/min TITRATE JAY JAY 13.781 mls/hr Administration Protocol 0.1 MCG/KG/MIN Amiodarone HCl/Dextrose 360 mg in 200 mls @ 16.7 mls/hr 02/29/24 01:00 02/29/24 01:11 Nexterone IV 02/29/24 12:59 0.5 mg/min CONT JAY JAY 16.667 mls/hr Administration Protocol Insulin Glargine 10 unit 02/28/24 21:00 02/29/24 08:45 Insulin Glargine 100 Unit/Ml 3ml Pen SUBCUT 10 unit BID JAY JAY Administration Insulin Human Lispro 0 unit 02/29/24 00:00 02/29/24 06:02 Insulin Lispro 100 Unit/Ml 3ml Vial SUBCUT 1 unit Q6H JAY JAY Administration Protocol Pantoprazole Sodium 40 mg 02/29/24 09:00 02/29/24 08:44 Pantoprazole 40 Mg Vial IV 40 mg DAILY JAY JAY Administration Objective Ventilator Parameters: Ventilator Settings FiO2 35 Ventilator Tidal Volume 500 Exhaled Labs 02/29/24 04:45 02/29/24 04:45 Labs: Laboratory Results - last 24 hr 02/28/24 02/28/24 02/28/24 09:33 10:41 12:10 WBC RBC Hgb Hct MCV MCH MCHC RDW Plt Count Neut % (Auto) Lymph % (Auto) [place] % (Auto) Eos % (Auto) Baso % (Auto) Neut # (Auto) Lymph # (Auto) [place] # (Auto) Eos # (Auto) Baso # (Auto) VBG pH VBG pCO2 VBG pO2 VBG HCO3 VBG Total CO2 VBG O2 Saturation VBG Base Excess Sodium Potassium Chloride Carbon Dioxide BUN Creatinine Estimated GFR BUN/Creatinine Ratio Glucose Lactate Calcium Magnesium Total Bilirubin AST ALT Alkaline Phosphatase Total Creatine Kinase 70 Troponin I 0.105 H Total Protein Albumin Globulin Albumin/Globulin Ratio Urine Color Yellow Urine Appearance Clear Urine pH 5.5 Ur Specific [place] 1.015 Urine Protein Negative Urine Glucose (UA) 2+ H Urine Ketones Negative Urine Occult Blood Trace-intact Urine Nitrate Positive H Urine Bilirubin Negative Urine Urobilinogen 0.2 Ur Leukocyte Esterase 1+ H Urine RBC 0-1/hpf Urine WBC 5-10/hpf H Ur Squamous Epith Cells 0-1 /hpf Urine Bacteria Many (>30) H Ur Culture Indicated? Specimen cultured Vol Urine Centrifuged 10ml (spun) Nasal Screen MRSA (PCR) Detected H 02/28/24 02/28/24 02/28/24 16:00 20:20 20:22 WBC RBC Hgb Hct MCV MCH MCHC RDW Plt Count Neut % (Auto) Lymph % (Auto) [place] % (Auto) Eos % (Auto) Baso % (Auto) Neut # (Auto) Lymph # (Auto) [place] # (Auto) Eos # (Auto) Baso # (Auto) VBG pH 7.38 VBG pCO2 58.2 H VBG pO2 37 VBG HCO3 35 H VBG Total CO2 34 H VBG O2 Saturation 68 L VBG Base Excess 7.3 H Sodium 139 Potassium 4.6 Chloride 101 Carbon Dioxide 32 BUN 51 H Creatinine 1.86 H Estimated GFR 30 L BUN/Creatinine Ratio 27.4 H Glucose 176 H D Lactate 1.2 Calcium 9.4 Magnesium Total Bilirubin 0.7 AST 198 H ALT 84 H Alkaline Phosphatase 29 L Total Creatine Kinase Troponin I Total Protein 6.5 Albumin 3.6 Globulin 2.9 Albumin/Globulin Ratio 1.2 Urine Color Urine Appearance Urine pH Ur Specific [place] Urine Protein Urine Glucose (UA) Urine Ketones Urine Occult Blood Urine Nitrate Urine Bilirubin Urine Urobilinogen Ur Leukocyte Esterase Urine RBC Urine WBC Ur Squamous Epith Cells Urine Bacteria Ur Culture Indicated? Vol Urine Centrifuged Nasal Screen MRSA (PCR) 02/29/24 04:45 WBC 13.0 H RBC 3.74 L Hgb 12.4 Hct 38.7 MCV 103.3 H MCH 33.1 MCHC 32.1 RDW 17.5 H Plt Count 296 Neut % (Auto) 84.9 H Lymph % (Auto) 10.7 L [place] % (Auto) 3.8 Eos % (Auto) 0.0 L Baso % (Auto) 0.6 Neut # (Auto) 35768 H Lymph # (Auto) 1400 [place] # (Auto) 500 Eos # (Auto) 0 Baso # (Auto) 100 VBG pH VBG pCO2 VBG pO2 VBG HCO3 VBG Total CO2 VBG O2 Saturation VBG Base Excess Sodium 142 Potassium 3.7 Chloride 100 Carbon Dioxide 32 BUN 55 H Creatinine 1.77 H Estimated GFR 32 L BUN/Creatinine Ratio 31.1 H Glucose 179 H Lactate Calcium 9.5 Magnesium 2.3 Total Bilirubin 0.6 AST 132 H ALT 87 H Alkaline Phosphatase 41 Total Creatine Kinase Troponin I Total Protein 5.5 L Albumin 3.1 L Globulin 2.4 Albumin/Globulin Ratio 1.3 Urine Color Urine Appearance Urine pH Ur Specific [place] Urine Protein Urine Glucose (UA) Urine Ketones Urine Occult Blood Urine Nitrate Urine Bilirubin Urine Urobilinogen Ur Leukocyte Esterase Urine RBC Urine WBC Ur Squamous Epith Cells Urine Bacteria Ur Culture Indicated? Vol Urine Centrifuged Nasal Screen MRSA (PCR) Exam Vital Signs (past 8 hours): - 02/29/24 01:45 02/29/24 01:45 02/29/24 02:00 Temperature Pulse Rate 105 H Respiratory Rate 26 H Blood Pressure 91/62 104/63 Pulse Oximetry 93 Oxygen Delivery Method Fraction of Inspired Oxygen 02/29/24 02:00 02/29/24 02:15 02/29/24 02:15 Temperature Pulse Rate 104 H 104 H Respiratory Rate 26 H 26 H Blood Pressure 104/70 Pulse Oximetry 94 94 Oxygen Delivery Method Fraction of Inspired Oxygen 02/29/24 02:30 02/29/24 02:30 02/29/24 02:45 Temperature Pulse Rate 104 H 104 H Respiratory Rate 26 H 26 H Blood Pressure 108/64 Pulse Oximetry 95 94 Oxygen Delivery Method Fraction of Inspired Oxygen 02/29/24 02:45 02/29/24 03:00 02/29/24 03:00 Temperature Pulse Rate 103 H Respiratory Rate 26 H Blood Pressure 101/61 Pulse Oximetry 94 Oxygen Delivery Method BiPAP Fraction of Inspired Oxygen 02/29/24 03:00 02/29/24 03:15 02/29/24 03:15 Temperature Pulse Rate 103 H Respiratory Rate 26 H Blood Pressure 94/62 89/54 L Pulse Oximetry 94 Oxygen Delivery Method Fraction of Inspired Oxygen 02/29/24 03:30 02/29/24 03:30 02/29/24 03:45 Temperature Pulse Rate 101 H Respiratory Rate 26 H Blood Pressure 84/46 L 78/40 L Pulse Oximetry 94 Oxygen Delivery Method Fraction of Inspired Oxygen 02/29/24 03:45 02/29/24 03:46 02/29/24 03:46 Temperature Pulse Rate 102 H 102 H Respiratory Rate 26 H 26 H Blood Pressure 84/49 L Pulse Oximetry 93 93 Oxygen Delivery Method Fraction of Inspired Oxygen 02/29/24 04:00 02/29/24 04:00 02/29/24 04:00 Temperature 97.6 F Pulse Rate 102 H Respiratory Rate 27 H Blood Pressure 115/77 84/64 L Pulse Oximetry 94 92 Oxygen Delivery Method BiPAP Fraction of Inspired Oxygen 02/29/24 04:15 02/29/24 04:15 02/29/24 04:30 Temperature Pulse Rate 102 H Respiratory Rate 26 H Blood Pressure 106/78 111/81 Pulse Oximetry 93 Oxygen Delivery Method Fraction of Inspired Oxygen 02/29/24 04:30 02/29/24 04:45 02/29/24 04:45 Temperature Pulse Rate 102 H 102 H Respiratory Rate 26 H 26 H Blood Pressure 115/81 Pulse Oximetry 94 94 Oxygen Delivery Method Fraction of Inspired Oxygen 02/29/24 05:00 02/29/24 05:00 02/29/24 05:15 Temperature Pulse Rate 102 H 102 H Respiratory Rate 26 H 26 H Blood Pressure 113/75 Pulse Oximetry 94 94 Oxygen Delivery Method Fraction of Inspired Oxygen 02/29/24 05:15 02/29/24 05:30 02/29/24 05:30 Temperature Pulse Rate 102 H Respiratory Rate 26 H Blood Pressure 114/76 109/74 Pulse Oximetry 94 Oxygen Delivery Method Fraction of Inspired Oxygen 02/29/24 05:45 02/29/24 05:45 02/29/24 06:00 Temperature Pulse Rate 102 H 102 H Respiratory Rate 26 H 32 H Blood Pressure 113/70 133/94 H Pulse Oximetry 94 91 Oxygen Delivery Method Fraction of Inspired Oxygen 02/29/24 06:30 02/29/24 06:30 02/29/24 06:45 Temperature Pulse Rate 102 H 102 H Respiratory Rate 26 H 28 H Blood Pressure 110/84 Pulse Oximetry 95 95 Oxygen Delivery Method Fraction of Inspired Oxygen 02/29/24 06:45 02/29/24 07:00 02/29/24 07:00 Temperature Pulse Rate Respiratory Rate Blood Pressure 109/79 109/79 Pulse Oximetry Oxygen Delivery Method BiPAP Fraction of Inspired Oxygen 02/29/24 07:00 02/29/24 07:15 02/29/24 07:15 Temperature Pulse Rate 102 H 102 H Respiratory Rate 26 H 26 H Blood Pressure 114/77 Pulse Oximetry 95 95 Oxygen Delivery Method Fraction of Inspired Oxygen 02/29/24 07:30 02/29/24 07:30 02/29/24 07:36 Temperature Pulse Rate 102 H Respiratory Rate 26 H Blood Pressure 126/76 126/76 Pulse Oximetry 93 Oxygen Delivery Method Fraction of Inspired Oxygen 02/29/24 07:44 02/29/24 07:45 02/29/24 07:45 Temperature Pulse Rate 102 H 102 H Respiratory Rate 24 25 H Blood Pressure 124/73 Pulse Oximetry 93 93 Oxygen Delivery Method BiPAP Fraction of Inspired Oxygen 02/29/24 08:00 02/29/24 08:00 02/29/24 08:00 Temperature Pulse Rate 102 H Respiratory Rate 24 Blood Pressure 178/122 H Pulse Oximetry 93 93 Oxygen Delivery Method BiPAP Fraction of Inspired Oxygen 02/29/24 08:00 02/29/24 08:06 02/29/24 08:06 Temperature 97.5 F L Pulse Rate 102 H Respiratory Rate 24 Blood Pressure 115/70 Pulse Oximetry 93 Oxygen Delivery Method Fraction of Inspired Oxygen 02/29/24 08:15 02/29/24 08:15 02/29/24 08:30 Temperature Pulse Rate 102 H 103 H Respiratory Rate 25 H 27 H Blood Pressure 117/73 Pulse Oximetry 93 92 Oxygen Delivery Method Fraction of Inspired Oxygen 02/29/24 08:30 02/29/24 08:45 02/29/24 08:45 Temperature Pulse Rate 103 H Respiratory Rate 29 H Blood Pressure 112/70 106/72 Pulse Oximetry 93 Oxygen Delivery Method Fraction of Inspired Oxygen Fraction of Inspired Oxygen 25 SaO2/FiO2 Ratio 235 Oxygen Delivery Method BiPAP Oxygen Flow Rate 35 Narrative Exam Narrative: sitting in bed, awake, alert and eating breakfast NAD, wearing NC rate controlled afib on monitor Quality TeleICU VTE Deep Vein Thrombosis/Pulmonary Embolism Present on Admission: No Assessment & Plan Assessment & Plan narrative: 63yo F with history of COPD, PONCE, hypercapnic respiratory failure, CHF with EF 25%, mod RV dysfunction, DM, HTN, obesity who presents to the ICU for hypercapnic respiratory failure, hypotension and encephalopathy Mental status much improved this morning, she is being treated for gram neg UTI, she is off bipap remains on low dose levophed N: Encephalopathy - due UTI/sepsis/hypotension/now resolved and she is at baseline - daily awakening trials Resp: COPD on bipap currently, CO2 are relative baseline, lower pH due to lower bicarb compared to normal, no wheezing on exam home inhaners, singular - schedule nebs Q4 - scheduled stress dose steroids with home chronic pred use - diet advanced CV: Shock: septic due to UTI, GNR - CXR with chronic LLL opacity unchanged from prior - stress dose steroids with 100Q8 hydrocort - continue meropenem for now and vanc for recent hospitalizations + MRSA, follow up cultures, narrow as able Hx of CHF with low EF - BNP elevated, - bedside echo yesterday with collapsible ivc - will trial albumin bolus this am to see if able to wean off levophed - wean levo to kep MAP > 65 Afib RVR - likely due to sepsis- s/p metop and dig - can restart metoprolol when reliably off vasopressors - amio bolus and drip- can transition to PO amio per protocol until NE off - monitor electrolytes, no repletion needed currently - on home apixban, transitioned to lovenox while NPO- when reilabily eating can transition back GI: diet : BLANCA on CKD - creatinine improving, near baseline - monitor UOP ID: hx of UTI with MDRO- growing GNR, follow up final cultures Heme: lovenox Endo: DM - on significant insulin at home, - home lantus, add ISS hypothyroidism - home synthroid Time-Based Coding :: 33] spent with patient and on the chart (including review of chart, obtaining history, exam, reviewing outside data, placing orders, documenting exam and treatment plan, and counseling patient) on [02/29/24.
[2024-02-29] MEDS: DOCUSATE 100 MG CAPSULE PO ×2 (09:52→21:15)
[2024-02-29] MEDS: MAGNESIUM OXIDE 400 MG TABLET 200 MG PO ×2 (09:52→21:15)
[2024-02-29] MEDS: buPROPion SR 100 MG TAB PO ×2 (09:52→21:14)
[2024-02-29] MEDS: LEVOTHYROXINE 75 MCG TABLET PO (09:52)
[2024-02-29] MEDS: LORATADINE 10 MG TABLET PO (09:52)
[2024-02-29] MEDS: MONTELUKAST 10 MG TABLET PO (09:53)
[2024-02-29] MEDS: FLUoxetine 20 MG CAPSULE PO (09:53)
[2024-02-29] MEDS: ALBUMIN HUMAN 12.5 GM/50 ML VIAL IV (10:00)
[2024-02-29] MEDS: VANCOMYCIN 2,000 MG/400 ML PIGGYBACK 200 MG IV (12:19)
--- NOTE | 2024-02-29 14:12 | CM.DANOTE ---
Addendum entered by GA Nichols 02/29/24 15:15: ADD: According to RN Lakesha, patient has a Trilogy/Bipap machine. Original Note: Initial DCP Assessment Note Pt is a 63 yo female, resident at [facility] SNF, arrives with Encephalopathy - due UTI/sepsis/hypotension, hypercapnic respiratory failure, CHF with EF 25% PCP: Karin Payan ([facility]) Payer: Sunil/KYLE Reviewed chart, pt discussed in multidisciplinary rounds this morning. Patient awake, talking and making clinical improvement. Met w/patient who explains she lives at [facility] and plans to return. Patient confirms her DPOA is her daughter Roxy Donahue [phone] who lives in [place]. Patient confirms staff at [facility] assist with all ADLs. Asked patient if she uses a trilogy machine at [facility], patient states I don't know what that is. Patient reports feeling tired of coming back and forth to the hospital. Asked patient if, alternatively, she would consider a palliative, comfort care approach and patient declines, states she wants to remain a full code. CM team will plan to follow clinical course closely. 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 GA Vasquez Discharge Planning/Care Management CM Discharge Assessment Start: 02/29/24 14:03 Freq: Status: Active Protocol: Document 02/29/24 14:04 NEO (Rec: 02/29/24 14:12 NEO [id number]) Discharge Planning Assessment Assigned Drum Drier GA Rosa DPOA/Assigned Designee Name Roxy Galeas, daughter ([place] ) Contact Information [phone] Advance Directives? Yes: POLST Advance Directives on File Yes: POLST on file - Full code History Provided By Patient,Medical Record Has Patient been admitted in last 30 No days? Comment Patient last admitted in October 2023 Prior Living Arrangements Skilled Nurse Facility Household Members other Type of transporation used prior to Relies on Others admit Facility Name Admitted From: [facility] Willing to Return to Facility? Yes Independent with ADL's No Is patient alert and oriented? Yes: With some confusion noted Comment Patient requires assist with all ADLs Patient/Family Preference Half-Way Facility Barriers to Discharge No Comment Will return to [facility], [facility] headgate operator care resident Discharge Plan Half-Way Facility Transportation Arrangement Facility vs BLS Referrals Initiated None needed If patient plan is SNF: Has PASSR been PASRR not needed due to pt completed? being a detention resident
--- NOTE | 2024-02-29 14:45 | PM.PN.1 ---
Subjective Subjective Interval history: 63 F admitted with septic shock, improving today. She is more alert, breathing well off of bipap, she tolerated breakfast this morning. Able to wean off of levophed this afternoon. Exam Vital Signs (past 8 hours): - 02/29/24 07:00 02/29/24 07:00 02/29/24 07:00 Temperature Pulse Rate 102 H Respiratory Rate 26 H Blood Pressure 109/79 Pulse Oximetry 95 Oxygen Delivery Method BiPAP Oxygen Flow Rate Fraction of Inspired Oxygen 02/29/24 07:15 02/29/24 07:15 02/29/24 07:30 Temperature Pulse Rate 102 H Respiratory Rate 26 H Blood Pressure 114/77 126/76 Pulse Oximetry 95 Oxygen Delivery Method Oxygen Flow Rate Fraction of Inspired Oxygen 02/29/24 07:30 02/29/24 07:36 02/29/24 07:44 Temperature Pulse Rate 102 H 102 H Respiratory Rate 26 H 24 Blood Pressure 126/76 Pulse Oximetry 93 93 Oxygen Delivery Method BiPAP Oxygen Flow Rate Fraction of Inspired Oxygen 02/29/24 07:45 02/29/24 07:45 02/29/24 08:00 Temperature Pulse Rate 102 H Respiratory Rate 25 H Blood Pressure 124/73 Pulse Oximetry 93 93 Oxygen Delivery Method BiPAP Oxygen Flow Rate Fraction of Inspired Oxygen 02/29/24 08:00 02/29/24 08:00 02/29/24 08:00 Temperature 97.5 F L Pulse Rate 102 H Respiratory Rate 24 Blood Pressure 178/122 H Pulse Oximetry 93 Oxygen Delivery Method Oxygen Flow Rate Fraction of Inspired Oxygen 02/29/24 08:06 02/29/24 08:06 02/29/24 08:15 Temperature Pulse Rate 102 H Respiratory Rate 24 Blood Pressure 115/70 117/73 Pulse Oximetry 93 Oxygen Delivery Method Oxygen Flow Rate Fraction of Inspired Oxygen 02/29/24 08:15 02/29/24 08:30 02/29/24 08:30 Temperature Pulse Rate 102 H 103 H Respiratory Rate 25 H 27 H Blood Pressure 112/70 Pulse Oximetry 93 92 Oxygen Delivery Method Oxygen Flow Rate Fraction of Inspired Oxygen 02/29/24 08:45 02/29/24 08:45 02/29/24 09:00 Temperature Pulse Rate 103 H Respiratory Rate 29 H Blood Pressure 106/72 115/75 Pulse Oximetry 93 Oxygen Delivery Method Oxygen Flow Rate Fraction of Inspired Oxygen 02/29/24 09:00 02/29/24 09:30 02/29/24 09:30 Temperature Pulse Rate 102 H 70 Respiratory Rate 28 H 28 H Blood Pressure 116/74 Pulse Oximetry 95 89 L Oxygen Delivery Method Oxygen Flow Rate Fraction of Inspired Oxygen 02/29/24 10:00 02/29/24 10:06 02/29/24 10:06 Temperature Pulse Rate 88 82 Respiratory Rate 31 H 27 H Blood Pressure 138/92 H Pulse Oximetry 94 94 Oxygen Delivery Method Oxygen Flow Rate Fraction of Inspired Oxygen 02/29/24 10:30 02/29/24 11:00 02/29/24 11:00 Temperature Pulse Rate 77 71 Respiratory Rate 27 H 36 H Blood Pressure Pulse Oximetry 93 93 Oxygen Delivery Method Nasal Cannula BiPAP Oxygen Flow Rate Fraction of Inspired Oxygen 02/29/24 11:20 02/29/24 11:20 02/29/24 11:20 Temperature Pulse Rate 84 73 Respiratory Rate 24 30 H Blood Pressure 125/86 Pulse Oximetry 94 91 Oxygen Delivery Method Nasal Cannula Oxygen Flow Rate 3 Fraction of Inspired Oxygen 02/29/24 11:30 02/29/24 12:00 02/29/24 12:00 Temperature Pulse Rate 72 68 Respiratory Rate 26 H 27 H Blood Pressure 118/68 Pulse Oximetry 94 95 Oxygen Delivery Method Oxygen Flow Rate Fraction of Inspired Oxygen 02/29/24 12:00 02/29/24 12:11 02/29/24 12:11 Temperature Pulse Rate 74 Respiratory Rate 28 H Blood Pressure 118/68 Pulse Oximetry 93 90 L Oxygen Delivery Method Nasal Cannula Oxygen Flow Rate 3 Fraction of Inspired Oxygen 02/29/24 12:30 02/29/24 13:00 02/29/24 13:30 Temperature Pulse Rate 75 69 77 Respiratory Rate 24 30 H 27 H Blood Pressure Pulse Oximetry 92 92 93 Oxygen Delivery Method Oxygen Flow Rate Fraction of Inspired Oxygen 02/29/24 13:31 02/29/24 13:31 Temperature Pulse Rate 74 Respiratory Rate 29 H Blood Pressure 109/52 L Pulse Oximetry 87 L Oxygen Delivery Method Oxygen Flow Rate Fraction of Inspired Oxygen Fraction of Inspired Oxygen 25 SaO2/FiO2 Ratio 235 Oxygen Delivery Method Nasal Cannula Oxygen Flow Rate 3 Narrative Exam Narrative: Gen: obese female, no acute distress, awake and alert CV: tachycardic, mildly, with regular rhythm. Pulm: diminished breath sounds bilateral lung bases, no wheezing Abd: S NT ND Ext: trace peripheral non pitting edema, chronic venous stasis changes, no erythema or warmth noted Objective Labs 02/29/24 04:45 02/29/24 04:45 Labs: Laboratory Results - last 24 hr 02/28/24 02/28/24 02/28/24 16:00 20:20 20:22 WBC RBC Hgb Hct MCV MCH MCHC RDW Plt Count Neut % (Auto) Lymph % (Auto) Luce % (Auto) Eos % (Auto) Baso % (Auto) Neut # (Auto) Lymph # (Auto) Luce # (Auto) Eos # (Auto) Baso # (Auto) VBG pH 7.38 VBG pCO2 58.2 H VBG pO2 37 VBG HCO3 35 H VBG Total CO2 34 H VBG O2 Saturation 68 L VBG Base Excess 7.3 H Sodium 139 Potassium 4.6 Chloride 101 Carbon Dioxide 32 BUN 51 H Creatinine 1.86 H Estimated GFR 30 L BUN/Creatinine Ratio 27.4 H Glucose 176 H D Lactate 1.2 Calcium 9.4 Magnesium Total Bilirubin 0.7 AST 198 H ALT 84 H Alkaline Phosphatase 29 L Total Protein 6.5 Albumin 3.6 Globulin 2.9 Albumin/Globulin Ratio 1.2 02/29/24 04:45 WBC 13.0 H RBC 3.74 L Hgb 12.4 Hct 38.7 MCV 103.3 H MCH 33.1 MCHC 32.1 RDW 17.5 H Plt Count 296 Neut % (Auto) 84.9 H Lymph % (Auto) 10.7 L Luce % (Auto) 3.8 Eos % (Auto) 0.0 L Baso % (Auto) 0.6 Neut # (Auto) 99295 H Lymph # (Auto) 1400 Luce # (Auto) 500 Eos # (Auto) 0 Baso # (Auto) 100 VBG pH VBG pCO2 VBG pO2 VBG HCO3 VBG Total CO2 VBG O2 Saturation VBG Base Excess Sodium 142 Potassium 3.7 Chloride 100 Carbon Dioxide 32 BUN 55 H Creatinine 1.77 H Estimated GFR 32 L BUN/Creatinine Ratio 31.1 H Glucose 179 H Lactate Calcium 9.5 Magnesium 2.3 Total Bilirubin 0.6 AST 132 H ALT 87 H Alkaline Phosphatase 41 Total Protein 5.5 L Albumin 3.1 L Globulin 2.4 Albumin/Globulin Ratio 1.3 PFSH Medical History Chronic hypercapnic respiratory failure PONCE (obstructive sleep apnea) Chronic hypoxemic respiratory failure COPD (chronic obstructive pulmonary disease) DM2 (diabetes mellitus, type 2) HTN (hypertension) Thyroiditis Systolic and diastolic CHF, chronic Obesity Surgical History S/P hernia surgery Family History Mother No pertinent past medical history Father No pertinent past medical history Social History household members: other Smoking Status: Former smoker alcohol intake: former Assessment & Plan Assessment & Plan narrative: 1. Septic shock, with acute metabolic encephalopathy, BLANCA, and #2 noted below secondary to acute cystitis with presumed ESBL organism. - able to be weaned from levophed. S/p fluid bolus yesterday, and was given albumin today after discussion with tele-icu. - can stop additional IV fluids. - takes 12.5 mg prednisone daily, will continue stress dosing with hydrocortisone 50 q6 for now. Once off levophed transition to prednisone 40 mg daily for 5 day total, then resume home dosing. - discussed with tele-non licensed nuclear plant operator as above - urine cultures with gram negative bacilli. Continue meropenem. 2. Acute on chronic hypercapnic and hypoxic respiratory failure, present on admission - presumed secondary to sepsis. Initially given lasix but appears euvolemic to slightly hypovolemic. Now s/p fluid and albumin bolus today. - now on nasal cannula oxygen, doing well, continue bipap at night. 3. Paroxysmal atrial fibrillation with RVR - takes metoprolol at home, will resume once levophed is off. - was in RVR after levophed started, gave 5 mg IV metoprolol, 250 mcg digoxin without much movement in rate. Improved after IV amiodarone load. Will continue amiodarone until BP improved. - TTE with slight improvement in EF, still 25%. - anticoagulation - resume eliquis kelsea, was on therapeutic lovenox while NPO. 4. COPD with possible exacerbation, present on admission - treating with stress steroids as above - replace home inhalers with formulary nebs per respiratory therapy 5. Chronic systolic heart failure, present on admission - TTE as above - not on burton-inhibition chronically, follows with cardiology. - restart beta alex when improved BP - hold home diuretics given #1 above 6. History of recurrent ESBL UTI. - continue carbapenem as noted above. 7. DM 2, present on admission - sliding scale ordered, and will continue long acting at 10 U BID until tolerating more oral intake. - was also recently started on lirglutide, may not need as much insulin as previous admissions. 8. BLANCA on Chronic kidney disease with baseline creatinine 1.3, present on admission - secondary to sepsis. Improving with above management. 9. Hypothyroidism, - continue home levothyroxine once able Code: Full, surrogate is patient's daughter DVT: on apixaban I have utilized all available immediate resources to obtain, update, or review the patient's current medications. Dispo: patient admitted under inpatient status to the ICU. Return to SNF when medically stable. Additional history obtained via discussions with the ICU bedside RN and tele-non licensed nuclear plant operator, pharmacist today. These discussions contributed to the creation of the above assessment and plan. I have reviewed patient's presenting documentation, labs, and imaging personally. I spent 40 minutes providing critical care management this patient. This excludes time spent in performing separately billed procedures. Time-Based Coding :: [TOTAL MINUTES] spent with patient and on the chart (including review of chart, obtaining history, exam, reviewing outside data, placing orders, documenting exam and treatment plan, and counseling patient) on [DATE]. Quality VTE Deep Vein Thrombosis/Pulmonary Embolism Present on Admission: No
--- NOTE | 2024-02-29 15:23 | PC.NURSE ---
Amiodaron and Levoped discontinued (see emar for times) BP 115/61 HR 64, pt remains intermittently on BiPap 35% FiO2, able to make needs known, no further needs at this time, care on going.
[2024-02-29] MEDS: ONDANSETRON 4 MG/2 ML INJ IV (16:17)
[2024-02-29] MEDS: AMIODARONE 200 MG TABLET PO (16:56)
--- NOTE | 2024-02-29 19:27 | EKG_ITS ---
[address] [address] [place] [address] Test Date: 2024-02-29 Pat Name: Mary Carmen Jett Department: [facility] Room: 231 Gender: Female Conveyor Technician: SYED : 1960 Requested By: Order Number: [id number] Reading MD: Rayray Grijalva MD Measurements Intervals [place] Rate: 88 P: 37 AL: 182 QRS: -48 QRSD: 120 T: 201 QT: 376 QTc: 454 Interpretive Statements Sinus rhythm with premature atrial complexes Left axis deviation Possible Anterior infarct , age undetermined T wave abnormality, consider inferolateral ischemia NO SIGNIFICANT CHANGE FROM PRIOR TRACING Electronically Signed On 03-01-2024 7:42:20 PST by Rayray Grijalva MD
[2024-02-29] MEDS: SENNOSIDES 8.6 MG TABLET 17.2 MG PO (21:14)
[2024-02-29] MEDS: TRAZODONE 50 MG TABLET PO (21:14)
[2024-02-29] MEDS: APIXABAN 5 MG TABLET PO (21:14)
[2024-02-29] MEDS: GABAPENTIN 300 MG CAPSULE PO (21:15)
[2024-02-29] MEDS: ACETAMINOPHEN 325 MG TABLET 650 MG PO (21:15)
--- NOTE | 2024-02-29 23:29 | PC.NURSE ---
Addendum entered by Marni Walsh R.N. 03/01/24 01:13: Patient has been sleeping with Bipap on since 2214, SpO2 88-94%, RR set at 24. Checked 0000 BP 70s/40s-50s, rechecked several times. Spoke with Hospitalist environmental engineer who ordered 500ml NS bolus-infusing, restart Levophed, CBC, BMP, Troponin. Levophed effective, currently at 0.03mcg/kg/min. Patient is sleepy, but rouses to care. Original Note: Director Marketing Communications Notes-Around 1914 during change of shift report, patients HR suddenly was 150s-180s rate regular, patient was eating a sandwich, said she was nauseous, dry heaving, c/o stomach pain and back pain BP 185/131, then 153/95(119). Per Day RN patient recently received IV Zofran. Attempt to have patient vagal down by blowing into straw, and repositioned, EKG obtained at 1926 showed SR, PACs, rate was decreasing to under 100, pain resolved. Episode lasted about 10 min, placed on Bipap for about an hour.
[2024-03-01] VITALS (102 sets, daily range): BP systolic 63–213; BP diastolic 46–171; PULSE 54–127; RESP 11–45; TEMP 30–36.1; O2SAT 88–100
[2024-03-01] MEDS: SODIUM CHLORIDE 0.9% 500 ML 1000 ML IV (00:45)
[2024-03-01] MEDS: NOREPINEPHRINE BITARTRATE/D5W 4 MG/250 ML PLAST..BAG 22.969 MG IV (00:49)
[2024-03-01 01:19] LABS: Add Manual Diff / Slide Review NO; Basophils Absolute Auto 0 /uL (0-100); Basophils Percent Auto 0.1 % (0-2); Eosinophils Absolute Auto 0 /uL (0-450); Hematocrit 35.1 % (36-46); Hemoglobin 11.3 g/dL (12.0-16.0); Lymphocytes Absolute Auto 800 /uL (1100-4500); Lymphocytes Percent Auto 7.4 % (25-40); Mean Corpuscular HGB Conc 32.3 % (30-36); Mean Corpuscular Hemoglobin 33.6 PG (26-34); Mean Corpuscular Volume 104.2 fL (80-100); Monocytes Absolute Auto 400 /uL (0-900); Monocytes Percent Auto 4.1 % (3-14); Neutrophils Absolute Auto 9300 /uL (1500-7000); Neutrophils Percent Auto 88.4 % (50-75); Platelet Count 244 X10^3/uL (150-400); Red Blood Cell Count 3.37 X10^6/uL (4.0-5.2); Red Cell Distribution Width 18.1 % (11.6-14.8); White Blood Cell Count 10.5 X10^3/uL (4.5-11.0)
[2024-03-01 01:32] LABS: BUN Creatinine Ratio 28.4 (6-22); Blood Urea Nitrogen 65 mg/dL (7-17); Calcium 9.2 mg/dL (8.4-10.2); Carbon Dioxide 34 mmol/L (22-32); Chloride 99 mmol/L (98-107); Estimated Glomerular Filt Rate 24 mL/min (>60); Glucose 282 mg/dL (80-110); HEMOLYSIS < 15 (0-50); Potassium 3.9 mmol/L (3.4-5.1); Sodium 137 mmol/L (137-145)
[2024-03-01 01:50] LABS: Troponin I 0.189 ng/mL (0.01-0.034)
--- NOTE | 2024-03-01 02:01 | EKG_ITS ---
[facility] [address] [place] [address] Test Date: 2024-03-01 Pat Name: Mary Carmen Jett Department: [facility] Room: 231 Gender: Female Carbonator: SYED : 1960 Requested By: Order Number: [id number] Reading MD: Rayray Grijalva MD Measurements Intervals [place] Rate: 58 P: 9 AR: 188 QRS: -46 QRSD: 142 T: 60 QT: 488 QTc: 479 Interpretive Statements Sinus bradycardia with marked sinus arrhythmia Left axis deviation Left bundle branch block NO SIGNIFICANT CHANGE FROM PRIOR TRACING Electronically Signed On 03-01-2024 7:42:34 PST by Rayray Grijalva MD
[2024-03-01 04:52] LABS: Add Manual Diff / Slide Review NO; Basophils Absolute Auto 0 /uL (0-100); Basophils Percent Auto 0.2 % (0-2); Eosinophils Absolute Auto 0 /uL (0-450); Hematocrit 36.6 % (36-46); Hemoglobin 11.6 g/dL (12.0-16.0); Lymphocytes Absolute Auto 800 /uL (1100-4500); Lymphocytes Percent Auto 6.8 % (25-40); Mean Corpuscular HGB Conc 31.8 % (30-36); Mean Corpuscular Volume 103.7 fL (80-100); Monocytes Absolute Auto 400 /uL (0-900); Monocytes Percent Auto 3.2 % (3-14); Neutrophils Absolute Auto 10300 /uL (1500-7000); Neutrophils Percent Auto 89.8 % (50-75); Platelet Count 281 X10^3/uL (150-400); Red Blood Cell Count 3.53 X10^6/uL (4.0-5.2); Red Cell Distribution Width 18.4 % (11.6-14.8); White Blood Cell Count 11.4 X10^3/uL (4.5-11.0)
[2024-03-01 05:08] LABS: Alanine Aminotransferase 68 IU/L (<35); Albumin 3.4 g/dL (3.5-5.0); Albumin Globulin Ratio 1.3 (1.0-2.8); Alkaline Phosphatase 45 U/L (38-126); Aspartate Aminotransferase 41 IU/L (14-36); BUN Creatinine Ratio 29.8 (6-22); Bilirubin Total 0.4 mg/dL (0.2-1.3); Blood Urea Nitrogen 61 mg/dL (7-17); Calcium 9.4 mg/dL (8.4-10.2); Carbon Dioxide 32 mmol/L (22-32); Chloride 101 mmol/L (98-107); Estimated Glomerular Filt Rate 27 mL/min (>60); Globulin 2.6 g/dL (1.7-4.1); Glucose 282 mg/dL (80-110); HEMOLYSIS < 15 (0-50); Magnesium 2.4 mg/dL (1.6-2.3); Potassium 3.6 mmol/L (3.4-5.1); Sodium 139 mmol/L (137-145)
[2024-03-01 05:51] LABS: Troponin I 0.189 ng/mL (0.01-0.034)
[2024-03-01] MEDS: HYDROCORTISONE 100 MG/2 ML VIAL IV (05:54)
[2024-03-01] MEDS: LEVOTHYROXINE 75 MCG TABLET PO (06:20)
[2024-03-01] MEDS: LEVOTHYROXINE 100 MCG TABLET PO (06:20)
[2024-03-01] MEDS: BUDESONIDE 0.5 MG/2 ML NEB INH ×2 (07:37→19:40)
[2024-03-01] MEDS: ALBUTEROL/IPRATROPIUM 3 ML AMPUL INH ×5 (07:37→23:27)
[2024-03-01] MEDS: INSULIN LISPRO 100 UNIT/ML 3ML VIAL SUBCUT ×5 (08:00→16:57)
[2024-03-01] MEDS: INSULIN GLARGINE 100 UNIT/ML 3ML PEN 10 UNIT SUBCUT (08:02)
[2024-03-01] MEDS: APIXABAN 5 MG TABLET PO ×2 (08:05→21:38)
[2024-03-01] MEDS: DOCUSATE 100 MG CAPSULE PO (08:05)
[2024-03-01] MEDS: LORATADINE 10 MG TABLET PO (08:05)
[2024-03-01] MEDS: AMIODARONE 200 MG TABLET PO (08:05)
[2024-03-01] MEDS: MONTELUKAST 10 MG TABLET PO (08:06)
[2024-03-01] MEDS: MAGNESIUM OXIDE 400 MG TABLET 200 MG PO (08:06)
[2024-03-01] MEDS: FLUoxetine 20 MG CAPSULE PO (08:07)
[2024-03-01] MEDS: buPROPion SR 100 MG TAB PO ×2 (08:07→21:38)
[2024-03-01] MEDS: PANTOPRAZOLE 40 MG VIAL IV (08:08)
[2024-03-01] MEDS: SODIUM CHLORIDE 0.9% FLUSH 10 ML IV ×2 (08:11→20:20)
[2024-03-01] MEDS: MEROPENEM 1 GM in SODIUM CHLORIDE 0.9% 100 ML IV ×2 (08:23→20:19)
--- NOTE | 2024-03-01 09:41 | PM.PN.1 ---
Subjective Subjective Interval history: 63 F admitted with septic shock, improving today. She is more alert, breathing well off of bipap, she tolerated breakfast this morning. Urine cultures with ESBL E. coli, on meropenem. Exam Vital Signs (past 8 hours): - 03/01/24 01:45 03/01/24 01:45 03/01/24 02:00 Pulse Rate 54 L 56 L Respiratory Rate 24 24 Blood Pressure 120/69 Pulse Oximetry 90 L 91 Oxygen Delivery Method Oxygen Flow Rate Fraction of Inspired Oxygen 03/01/24 02:00 03/01/24 02:16 03/01/24 02:16 Pulse Rate 54 L Respiratory Rate 24 Blood Pressure 112/70 120/69 Pulse Oximetry 91 Oxygen Delivery Method Oxygen Flow Rate Fraction of Inspired Oxygen 03/01/24 02:30 03/01/24 02:30 03/01/24 02:46 Pulse Rate 57 L Respiratory Rate 24 Blood Pressure 119/70 140/67 Pulse Oximetry 92 Oxygen Delivery Method Oxygen Flow Rate Fraction of Inspired Oxygen 03/01/24 02:46 03/01/24 03:00 03/01/24 03:00 Pulse Rate 55 L 54 L Respiratory Rate 24 24 Blood Pressure 119/59 L Pulse Oximetry 94 94 Oxygen Delivery Method Oxygen Flow Rate Fraction of Inspired Oxygen 03/01/24 03:15 03/01/24 03:15 03/01/24 03:30 Pulse Rate 66 Respiratory Rate 29 H Blood Pressure 122/63 117/58 L Pulse Oximetry 92 Oxygen Delivery Method Oxygen Flow Rate Fraction of Inspired Oxygen 03/01/24 03:30 03/01/24 03:45 03/01/24 03:45 Pulse Rate 55 L 57 L Respiratory Rate 24 23 Blood Pressure 112/60 Pulse Oximetry 89 L 88 L Oxygen Delivery Method Oxygen Flow Rate Fraction of Inspired Oxygen 03/01/24 04:00 03/01/24 04:00 03/01/24 04:00 Pulse Rate 57 L Respiratory Rate 24 Blood Pressure 123/66 Pulse Oximetry 91 92 Oxygen Delivery Method BiPAP Oxygen Flow Rate Fraction of Inspired Oxygen 03/01/24 04:00 03/01/24 04:15 03/01/24 04:15 Pulse Rate 61 Respiratory Rate 28 H Blood Pressure 113/68 113/68 Pulse Oximetry 90 L Oxygen Delivery Method Oxygen Flow Rate Fraction of Inspired Oxygen 35 03/01/24 04:30 03/01/24 04:30 03/01/24 04:30 Pulse Rate 56 L Respiratory Rate 17 Blood Pressure 118/65 Pulse Oximetry 89 L Oxygen Delivery Method BiPAP Oxygen Flow Rate Fraction of Inspired Oxygen 03/01/24 04:45 03/01/24 04:45 03/01/24 05:00 Pulse Rate 57 L 59 L Respiratory Rate 11 L 17 Blood Pressure 121/72 Pulse Oximetry 92 91 Oxygen Delivery Method Oxygen Flow Rate Fraction of Inspired Oxygen 03/01/24 05:01 03/01/24 05:01 03/01/24 05:15 Pulse Rate 64 66 Respiratory Rate 16 15 Blood Pressure 124/69 Pulse Oximetry 90 L 90 L Oxygen Delivery Method Oxygen Flow Rate Fraction of Inspired Oxygen 03/01/24 05:15 03/01/24 05:30 03/01/24 05:30 Pulse Rate 64 Respiratory Rate 14 Blood Pressure 122/65 130/61 Pulse Oximetry 90 L Oxygen Delivery Method Oxygen Flow Rate Fraction of Inspired Oxygen 03/01/24 05:45 03/01/24 05:45 03/01/24 06:00 Pulse Rate 61 63 Respiratory Rate 17 24 Blood Pressure 126/59 L Pulse Oximetry 88 L 89 L Oxygen Delivery Method Oxygen Flow Rate Fraction of Inspired Oxygen 03/01/24 06:00 03/01/24 06:16 03/01/24 06:16 Pulse Rate 74 Respiratory Rate 26 H Blood Pressure 134/60 120/60 Pulse Oximetry 91 Oxygen Delivery Method Oxygen Flow Rate Fraction of Inspired Oxygen 03/01/24 06:30 03/01/24 06:30 03/01/24 06:48 Pulse Rate 114 H Respiratory Rate 43 H Blood Pressure 135/63 143/103 H Pulse Oximetry 95 Oxygen Delivery Method Oxygen Flow Rate Fraction of Inspired Oxygen 03/01/24 06:48 03/01/24 07:00 03/01/24 07:01 Pulse Rate 75 72 Respiratory Rate 29 H 29 H Blood Pressure 168/133 H Pulse Oximetry 96 95 Oxygen Delivery Method Oxygen Flow Rate Fraction of Inspired Oxygen 03/01/24 07:01 03/01/24 07:15 03/01/24 07:15 Pulse Rate 77 77 Respiratory Rate 31 H 27 H Blood Pressure 176/155 H Pulse Oximetry 96 94 Oxygen Delivery Method Oxygen Flow Rate Fraction of Inspired Oxygen 03/01/24 07:37 Pulse Rate 76 Respiratory Rate 24 Blood Pressure Pulse Oximetry 96 Oxygen Delivery Method Nasal Cannula Oxygen Flow Rate 3 Fraction of Inspired Oxygen Fraction of Inspired Oxygen 35 SaO2/FiO2 Ratio 235 Oxygen Delivery Method Nasal Cannula Oxygen Flow Rate 3 Narrative Exam Narrative: Gen: obese female, no acute distress, awake and alert CV: tachycardic, mildly, with regular rhythm. Pulm: diminished breath sounds bilateral lung bases, no wheezing Abd: S NT ND Ext: trace peripheral non pitting edema, chronic venous stasis changes, no erythema or warmth noted Objective Labs 03/01/24 04:30 03/01/24 04:30 Labs: Laboratory Results - last 24 hr 03/01/24 03/01/24 01:00 04:30 WBC 10.5 11.4 H RBC 3.37 L 3.53 L Hgb 11.3 L 11.6 L Hct 35.1 L 36.6 MCV 104.2 H 103.7 H MCH 33.6 33.0 MCHC 32.3 31.8 RDW 18.1 H 18.4 H Plt Count 244 281 Neut % (Auto) 88.4 H 89.8 H Lymph % (Auto) 7.4 L 6.8 L Gaines % (Auto) 4.1 3.2 Eos % (Auto) 0.0 L 0.0 L Baso % (Auto) 0.1 0.2 Neut # (Auto) 9300 H 91926 H Lymph # (Auto) 800 L 800 L Gaines # (Auto) 400 400 Eos # (Auto) 0 0 Baso # (Auto) 0 0 Sodium 137 139 Potassium 3.9 3.6 Chloride 99 101 Carbon Dioxide 34 H 32 BUN 65 H 61 H Creatinine 2.29 H 2.05 H Estimated GFR 24 L 27 L BUN/Creatinine Ratio 28.4 H 29.8 H Glucose 282 H D 282 H Calcium 9.2 9.4 Magnesium 2.4 H Total Bilirubin 0.4 AST 41 H ALT 68 H Alkaline Phosphatase 45 Troponin I 0.189 H* 0.189 H* Total Protein 6.0 L Albumin 3.4 L Globulin 2.6 Albumin/Globulin Ratio 1.3 PFSH Medical History Chronic hypercapnic respiratory failure PONCE (obstructive sleep apnea) Chronic hypoxemic respiratory failure COPD (chronic obstructive pulmonary disease) DM2 (diabetes mellitus, type 2) HTN (hypertension) Thyroiditis Systolic and diastolic CHF, chronic Obesity Surgical History S/P hernia surgery Family History Mother No pertinent past medical history Father No pertinent past medical history Social History household members: other Smoking Status: Former smoker alcohol intake: former Assessment & Plan Assessment & Plan narrative: 1. Septic shock, with acute metabolic encephalopathy, BLANCA, and #2 noted below secondary to acute cystitis with presumed ESBL organism. - able to be weaned from levophed. Now downgraded from the ICU to acute care this morning. - Stopped IV fluids, did receive albumin bolus yesterday with improvement in BP. - takes 12.5 mg prednisone daily, will continue stress dosing with hydrocortisone 50 q6 for now. Will stop hydrocort today, change to prednisone 40 mg PO starting tomorrow. - urine cultures ESBL E. Coli, continue meropenem. Course will be 7 days, to end on 03/06 with evening dose. 2. Acute on chronic hypercapnic and hypoxic respiratory failure, present on admission - presumed secondary to sepsis. Initially given lasix but appears euvolemic to slightly hypovolemic. Now s/p fluid and albumin. BP improved today. - now on nasal cannula oxygen, doing well, continue bipap at night per usual home routine. 3. Paroxysmal atrial fibrillation with RVR - takes metoprolol at home, will resume today now that levophed is off. Can stop oral amiodarone. - was in RVR after levophed started, gave 5 mg IV metoprolol, 250 mcg digoxin without much movement in rate. Improved after IV amiodarone load. Given a few doses of oral amiodarone, will stop and go back to metoprolol today. - TTE with slight improvement in EF, still 25%. - anticoagulation - on eliquis 4. COPD with possible exacerbation, present on admission - treating with stress steroids as above, will transition to prednisone 40 mg daily starting tomorrow for another 3 days, then transition back to 12.5 mg daily - replace home inhalers with formulary nebs per respiratory therapy 5. Chronic systolic heart failure, present on admission - TTE as above - not on burotn-inhibition chronically, follows with cardiology. - restart beta alex when improved BP - hold home diuretics given #1 above today, likely resume tomorrow. 6. History of recurrent ESBL UTI. - continue carbapenem as noted above. 7. DM 2, present on admission - sliding scale ordered, will increase lantus given elevated glucose today to 20 U BID, start 5 U AC now that she is eating regularly. - was also recently started on lirglutide, may not need as much insulin as previous admissions. 8. BLANCA on Chronic kidney disease with baseline creatinine 1.3, present on admission - secondary to sepsis. Improving with above management. 9. Hypothyroidism, - continue home levothyroxine Code: Full, surrogate is patient's daughter DVT: on apixaban I have utilized all available immediate resources to obtain, update, or review the patient's current medications. Dispo: patient admitted under inpatient status to the ICU. Downgrade to regular floor today, Possible return to SNF in 1-2 days. Additional history obtained via discussions with the ICU bedside RN, pharmacist, and human services case manager today. These discussions contributed to the creation of the above assessment and plan. I have reviewed patient's presenting documentation, labs, and imaging personally. I spent 30 minutes providing critical care management this patient. This excludes time spent in performing separately billed procedures. Time-Based Coding :: [TOTAL MINUTES] spent with patient and on the chart (including review of chart, obtaining history, exam, reviewing outside data, placing orders, documenting exam and treatment plan, and counseling patient) on [DATE]. Quality VTE Deep Vein Thrombosis/Pulmonary Embolism Present on Admission: No
[2024-03-01] MEDS: METOPROLOL ER 25 MG TABLET PO (10:39)
--- NOTE | 2024-03-01 11:37 | CM.DPNOTE ---
DCP Cont Reviewed chart. Patient discussed in multidisciplinary rounds. According to Dr Gillespie: patient will need meropenem. Course will be 7 days, to end on 03/06 with evening dose. Updated Miladis at [facility]. Patient already has a PICC in. Miladis will begin work on auth through [facility]. Patient is expected to be medically ready for discharge Friday 03/02. CM team following clinical course closely, coordination efforts with [facility] ongoing. NEO
[2024-03-01] MEDS: ONDANSETRON 4 MG/2 ML INJ IV (17:21)
--- NOTE | 2024-03-01 18:48 | PC.NURSE ---
Shift Note: Pt C/O feeling nauseated off and on throughout the day - Zofran given x1 with good relief. Pt hoyered to chair for noon meal, tolerated well. Placed back on bipap after evening meal.
[2024-03-01] MEDS: PROCHLORPERAZINE 10 MG/2 ML VIAL IV (20:20)
[2024-03-01] MEDS: INSULIN GLARGINE 100 UNIT/ML 3ML PEN 20 UNIT SUBCUT (21:27)
[2024-03-01] MEDS: GABAPENTIN 300 MG CAPSULE PO (21:38)
[2024-03-02] VITALS (75 sets, daily range): BP systolic 63–139; BP diastolic 38–99; PULSE 53–130; RESP 20–33; TEMP 31–36.7; O2SAT 81–98
[2024-03-02] MEDS: SODIUM CHLORIDE 0.9% 500 ML 1000 ML IV (00:45)
--- NOTE | 2024-03-02 01:20 | PC.NURSE ---
Addendum entered by Marni Walsh R.N. 03/02/24 03:47: When CBG rechecked, it was 69, d/t patients sleepiness, coughing, and gurgling burps, D10W was given per hypoglycemic protocol. Now 103. Patient is also tolerating Bipap with change in settings, current BP 105/69(82) Addendum entered by Marni Walsh R.N. 03/02/24 02:28: CBG checked at 0200-72, was 166 at HS, received 20 units Lantus, no ss correction indicated. Patient very sleepy, but woke to drink juice. Now on 3L Oximask, SpO2 94%, BP 113/63. After drinking the juice, patient started having 'wet' sounding burps, denies nausea, HOB 47 degrees. Original Note: Event Representative Note-At change of shift, patient was vomitting up the salmon she had for dinner. Zofran had been given around 1700, obtained an order for IV Compazine from [facility] Hospitalist, was given with effect. No change in BP or HR like previous night. Patient was still mildly nauseous at HS, declined few scheduled medications-see Emar, metoprolol held d/t decreased BP 108/75 and HR 50s-60s-see vital trends. BP 111/66(84) at 2300 while on 5L Oximask, Bipap placed on at 2330, BP 63/42(48) at 0000, HR 53, patient sleeping, opens eyes when called. Notified Hospitalist marketing operations analyst, Dr Chapman. NS 500ml bolus started, RT made changes to Bipap, now TV 450, 5/10, RR 20, FIO2 40%, did attempt Cpap which was not effective to get SpO2 to 88%. BP recovering to 90s/50s MAP >65, will continue to monitor. Of note, patient has become significantly hypotensive at night after Bipap placed the last 2 nights, Levophed was required.
[2024-03-02] MEDS: DEXTROSE 10 % IN WATER 100 ML 999 ML IV ×2 (03:11→07:43)
[2024-03-02 04:52] LABS: Add Manual Diff / Slide Review NO; Basophils Absolute Auto 100 /uL (0-100); Basophils Percent Auto 0.7 % (0-2); Eosinophils Absolute Auto 0 /uL (0-450); Eosinophils Percent Auto 0.1 % (2-4); Hematocrit 35.2 % (36-46); Hemoglobin 11.2 g/dL (12.0-16.0); Lymphocytes Absolute Auto 1200 /uL (1100-4500); Lymphocytes Percent Auto 8.6 % (25-40); Mean Corpuscular HGB Conc 31.8 % (30-36); Mean Corpuscular Hemoglobin 33.4 PG (26-34); Monocytes Absolute Auto 800 /uL (0-900); Monocytes Percent Auto 5.6 % (3-14); Neutrophils Absolute Auto 11700 /uL (1500-7000); Platelet Count 210 X10^3/uL (150-400); Red Blood Cell Count 3.35 X10^6/uL (4.0-5.2); Red Cell Distribution Width 17.9 % (11.6-14.8); White Blood Cell Count 13.8 X10^3/uL (4.5-11.0)
[2024-03-02 05:05] LABS: Alanine Aminotransferase 52 IU/L (<35); Albumin 3.1 g/dL (3.5-5.0); Albumin Globulin Ratio 1.2 (1.0-2.8); Alkaline Phosphatase 37 U/L (38-126); Aspartate Aminotransferase 27 IU/L (14-36); BUN Creatinine Ratio 28.8 (6-22); Bilirubin Total 0.4 mg/dL (0.2-1.3); Blood Urea Nitrogen 67 mg/dL (7-17); Calcium 9.4 mg/dL (8.4-10.2); Carbon Dioxide 33 mmol/L (22-32); Chloride 101 mmol/L (98-107); Estimated Glomerular Filt Rate 23 mL/min (>60); Globulin 2.6 g/dL (1.7-4.1); Glucose 82 mg/dL (80-110); HEMOLYSIS 23 (0-50); Magnesium 2.5 mg/dL (1.6-2.3); Potassium 3.9 mmol/L (3.4-5.1); Sodium 139 mmol/L (137-145); Total Protein 5.7 g/dL (6.3-8.2)
[2024-03-02] MEDS: ALBUTEROL/IPRATROPIUM 3 ML AMPUL INH ×5 (07:26→23:33)
[2024-03-02] MEDS: BUDESONIDE 0.5 MG/2 ML NEB INH ×2 (07:26→19:10)
[2024-03-02] MEDS: PANTOPRAZOLE DR 40 MG TABLET PO (07:52)
[2024-03-02] MEDS: LEVOTHYROXINE 100 MCG TABLET PO (07:52)
[2024-03-02] MEDS: LEVOTHYROXINE 75 MCG TABLET PO (07:53)
--- NOTE | 2024-03-02 08:12 | PM.PN.1 ---
Subjective Subjective Date Patient Seen: 03/02/24 Interval history: She is seen in the ICU here today. She is eating breakfast and resting comfortably but has been quite unstable over the last 24 hours. Her blood sugars have dropped into the 50 several times so the last 2 doses of Lantus have been held. Her dose will be decreased from 20 units down to 14 units twice daily. She also required BiPAP overnight. She has been hypotensive down into the 60s systolic, responding to a small bolus of IV fluid last night. Her white count is 13.8 with a hemoglobin of 11.2. The creatinine is 2.33 and the liver enzymes are just mildly elevated. She is being changed to oral steroids today. The Lantus dose will be decreased. Exam Vital Signs (past 8 hours): - 03/02/24 00:15 03/02/24 00:15 03/02/24 00:20 Temperature Pulse Rate 56 L Respiratory Rate 24 Blood Pressure 81/48 L 85/48 L Pulse Oximetry 89 L Oxygen Delivery Method Oxygen Flow Rate Fraction of Inspired Oxygen 03/02/24 00:20 03/02/24 00:25 03/02/24 00:25 Temperature Pulse Rate 55 L 56 L Respiratory Rate 24 20 Blood Pressure 94/51 L Pulse Oximetry 90 L 89 L Oxygen Delivery Method Oxygen Flow Rate Fraction of Inspired Oxygen 03/02/24 00:30 03/02/24 00:30 03/02/24 00:34 Temperature Pulse Rate 55 L 57 L Respiratory Rate 22 21 Blood Pressure 85/48 L Pulse Oximetry 92 93 Oxygen Delivery Method Oxygen Flow Rate Fraction of Inspired Oxygen 03/02/24 00:34 03/02/24 00:35 03/02/24 00:35 Temperature Pulse Rate 56 L Respiratory Rate 24 Blood Pressure 91/53 L 93/55 L Pulse Oximetry 94 Oxygen Delivery Method Oxygen Flow Rate Fraction of Inspired Oxygen 03/02/24 00:38 03/02/24 00:40 03/02/24 00:40 Temperature Pulse Rate 53 L Respiratory Rate 21 Blood Pressure 92/54 L 92/54 L Pulse Oximetry 96 Oxygen Delivery Method Oxygen Flow Rate Fraction of Inspired Oxygen 40 03/02/24 00:45 03/02/24 00:45 03/02/24 00:50 Temperature Pulse Rate 57 L Respiratory Rate 22 Blood Pressure 90/51 L 92/50 L Pulse Oximetry 95 Oxygen Delivery Method Oxygen Flow Rate Fraction of Inspired Oxygen 03/02/24 00:50 03/02/24 00:55 03/02/24 00:55 Temperature Pulse Rate 55 L 56 L Respiratory Rate 24 23 Blood Pressure 95/52 L Pulse Oximetry 94 95 Oxygen Delivery Method Oxygen Flow Rate Fraction of Inspired Oxygen 03/02/24 01:00 03/02/24 01:00 03/02/24 01:10 Temperature Pulse Rate 58 L 59 L Respiratory Rate 21 21 Blood Pressure 93/51 L Pulse Oximetry 96 97 Oxygen Delivery Method Oxygen Flow Rate Fraction of Inspired Oxygen 03/02/24 01:10 03/02/24 01:20 03/02/24 01:20 Temperature Pulse Rate 55 L Respiratory Rate 22 Blood Pressure 90/51 L 90/50 L Pulse Oximetry 97 Oxygen Delivery Method Oxygen Flow Rate Fraction of Inspired Oxygen 03/02/24 01:30 03/02/24 01:31 03/02/24 01:31 Temperature Pulse Rate 59 L 55 L Respiratory Rate 21 21 Blood Pressure 88/52 L Pulse Oximetry 97 97 Oxygen Delivery Method Oxygen Flow Rate Fraction of Inspired Oxygen 03/02/24 01:40 03/02/24 01:40 03/02/24 01:50 Temperature Pulse Rate 60 59 L Respiratory Rate 21 20 Blood Pressure 88/54 L Pulse Oximetry 97 97 Oxygen Delivery Method Oxygen Flow Rate Fraction of Inspired Oxygen 03/02/24 01:50 03/02/24 02:00 03/02/24 02:01 Temperature Pulse Rate 57 L 57 L Respiratory Rate 21 20 Blood Pressure 86/54 L Pulse Oximetry 98 98 Oxygen Delivery Method Oxygen Flow Rate Fraction of Inspired Oxygen 03/02/24 02:01 03/02/24 02:16 03/02/24 02:16 Temperature Pulse Rate 67 Respiratory Rate 21 Blood Pressure 92/55 L 107/62 Pulse Oximetry 97 Oxygen Delivery Method Oxygen Flow Rate Fraction of Inspired Oxygen 03/02/24 02:30 03/02/24 02:30 03/02/24 02:46 Temperature Pulse Rate 62 62 Respiratory Rate 26 H 25 H Blood Pressure 113/63 Pulse Oximetry 94 90 L Oxygen Delivery Method Oxygen Flow Rate Fraction of Inspired Oxygen 03/02/24 02:46 03/02/24 04:00 03/02/24 04:00 Temperature 96.8 F L Pulse Rate 60 Respiratory Rate 24 Blood Pressure 94/65 110/62 Pulse Oximetry 95 95 Oxygen Delivery Method BiPAP Oxygen Flow Rate 20 Fraction of Inspired Oxygen 40 03/02/24 04:27 03/02/24 07:27 03/02/24 07:36 Temperature Pulse Rate 60 Respiratory Rate 22 Blood Pressure 106/64 Pulse Oximetry 97 Oxygen Delivery Method BiPAP Oxygen Flow Rate Fraction of Inspired Oxygen 40 40 40 Fraction of Inspired Oxygen 40 SaO2/FiO2 Ratio 242 Oxygen Delivery Method BiPAP Oxygen Flow Rate 20 Narrative Exam Narrative: She is alert and oriented x3. She appears to be quite weak but at her baseline. Heart is irregularly irregular and distant. No murmurs heard. Lungs are clear to auscultation bilaterally Extremities have no ankle edema Objective Labs 03/02/24 04:45 03/02/24 04:45 Labs: Laboratory Results - last 24 hr 03/02/24 04:45 WBC 13.8 H RBC 3.35 L Hgb 11.2 L Hct 35.2 L MCV 105.0 H MCH 33.4 MCHC 31.8 RDW 17.9 H Plt Count 210 Neut % (Auto) 85.0 H Lymph % (Auto) 8.6 L [place] % (Auto) 5.6 Eos % (Auto) 0.1 L Baso % (Auto) 0.7 Neut # (Auto) 49095 H Lymph # (Auto) 1200 [place] # (Auto) 800 Eos # (Auto) 0 Baso # (Auto) 100 Sodium 139 Potassium 3.9 Chloride 101 Carbon Dioxide 33 H BUN 67 H Creatinine 2.33 H Estimated GFR 23 L BUN/Creatinine Ratio 28.8 H Glucose 82 D Calcium 9.4 Magnesium 2.5 H Total Bilirubin 0.4 AST 27 ALT 52 H Alkaline Phosphatase 37 L Total Protein 5.7 L Albumin 3.1 L Globulin 2.6 Albumin/Globulin Ratio 1.2 [facility] Medical History Chronic hypercapnic respiratory failure PONCE (obstructive sleep apnea) Chronic hypoxemic respiratory failure COPD (chronic obstructive pulmonary disease) DM2 (diabetes mellitus, type 2) HTN (hypertension) Thyroiditis Systolic and diastolic CHF, chronic Obesity Surgical History S/P hernia surgery Family History Mother No pertinent past medical history Father No pertinent past medical history Social History household members: other Smoking Status: Former smoker alcohol intake: former Assessment & Plan Assessment & Plan narrative: 1. Septic shock, with acute metabolic encephalopathy, BLANCA, and #2 noted below secondary to acute cystitis with presumed ESBL organism. - continues to be intermittently hypotensive, responding to IV fluid bolus last night. - Stopped IV fluids, did also receive albumin bolus previously for hypotension. - takes 12.5 mg prednisone daily, currently on prednisone 40 mg daily for 3 days. - urine cultures ESBL E. Coli, continue meropenem. Course will be 7 days, to end on 03/06 with evening dose. 2. Acute on chronic hypercapnic and hypoxic respiratory failure, present on admission - presumed secondary to sepsis. Initially given lasix but appears euvolemic to slightly hypovolemic. Now s/p fluid and albumin. BP improved today. - now on nasal cannula oxygen, doing well, continue bipap at night per usual home routine. 3. Paroxysmal atrial fibrillation with RVR - Resume metoprolol. Levophed is off. Stopped the oral amiodarone. - was in RVR after levophed started, gave 5 mg IV metoprolol, 250 mcg digoxin without much movement in rate. Improved after IV amiodarone load. Given a few doses of oral amiodarone, subsequently stopped. - anticoagulation - on eliquis 4. COPD with possible exacerbation, present on admission - treating with stress steroids as above, will transition to prednisone 40 mg today for another 3 days, then transition back to 12.5 mg daily - replace home inhalers with formulary nebs per respiratory therapy 5. Chronic systolic heart failure, present on admission - TTE as above - not on burton-inhibition chronically, follows with cardiology. - restarted beta alex - hold home diuretics given #1 above today, likely resume tomorrow. 6. History of recurrent ESBL UTI. - continue carbapenem as noted above. 7. DM 2, present on admission - sliding scale ordered, will decrease Lantus back to 14 units b.i.d. because of hypoglycemia - was also recently started on lirglutide, may not need as much insulin as previous admissions. 8. BLANCA on Chronic kidney disease with baseline creatinine 1.3, present on admission - secondary to sepsis. Improving with above management. 9. Hypothyroidism, - continue home levothyroxine Code: Full, surrogate is patient's daughter DVT: on apixaban I have utilized all available immediate resources to obtain, update, or review the patient's current medications. Dispo: Possible return to SNF in 1-2 days. Additional history obtained via discussions with the ICU bedside RN, pharmacist, and classification case manager today. These discussions contributed to the creation of the above assessment and plan. I have reviewed patient's presenting documentation and labs personally. Time-Based Coding :: [TOTAL MINUTES] spent with patient and on the chart (including review of chart, obtaining history, exam, reviewing outside data, placing orders, documenting exam and treatment plan, and counseling patient) on [DATE]. Quality VTE Deep Vein Thrombosis/Pulmonary Embolism Present on Admission: No
[2024-03-02] MEDS: MEROPENEM 1 GM in SODIUM CHLORIDE 0.9% 100 ML IV ×2 (08:43→20:13)
[2024-03-02] MEDS: FLUoxetine 20 MG CAPSULE PO (08:44)
[2024-03-02] MEDS: buPROPion SR 100 MG TAB PO ×2 (08:44→20:13)
[2024-03-02] MEDS: MAGNESIUM OXIDE 400 MG TABLET 200 MG PO ×2 (08:44→20:13)
[2024-03-02] MEDS: MONTELUKAST 10 MG TABLET PO (08:44)
[2024-03-02] MEDS: METOPROLOL ER 25 MG TABLET PO ×2 (08:47→20:14)
[2024-03-02] MEDS: LORATADINE 10 MG TABLET PO (08:47)
[2024-03-02] MEDS: APIXABAN 5 MG TABLET PO ×2 (08:47→20:13)
[2024-03-02] MEDS: DOCUSATE 100 MG CAPSULE PO (08:48)
[2024-03-02] MEDS: SODIUM CHLORIDE 0.9% FLUSH 10 ML IV ×2 (08:49→20:15)
[2024-03-02] MEDS: predniSONE 20 MG TABLET 40 MG PO (10:39)
[2024-03-02] MEDS: INSULIN LISPRO 100 UNIT/ML 3ML VIAL SUBCUT ×3 (16:35→20:20)
[2024-03-02] MEDS: TRAZODONE 50 MG TABLET PO (20:13)
[2024-03-02] MEDS: GABAPENTIN 300 MG CAPSULE PO (20:13)
[2024-03-02] MEDS: INSULIN GLARGINE 100 UNIT/ML 3ML PEN 14 UNIT SUBCUT (20:21)
[2024-03-03] VITALS (69 sets, daily range): BP systolic 85–139; BP diastolic 50–97; PULSE 52–169; RESP 20–35; TEMP 29–36.4; O2SAT 87–97
[2024-03-03 05:43] LABS: Add Manual Diff / Slide Review NO; Basophils Absolute Auto 0 /uL (0-100); Basophils Percent Auto 0.2 % (0-2); Eosinophils Absolute Auto 0 /uL (0-450); Eosinophils Percent Auto 0.1 % (2-4); Hemoglobin 10.2 g/dL (12.0-16.0); Lymphocytes Absolute Auto 600 /uL (1100-4500); Lymphocytes Percent Auto 6.9 % (25-40); Mean Corpuscular HGB Conc 32.9 % (30-36); Mean Corpuscular Volume 103.1 fL (80-100); Monocytes Absolute Auto 400 /uL (0-900); Monocytes Percent Auto 4.4 % (3-14); Neutrophils Absolute Auto 7300 /uL (1500-7000); Neutrophils Percent Auto 88.4 % (50-75); Platelet Count 145 X10^3/uL (150-400); Red Blood Cell Count 3.01 X10^6/uL (4.0-5.2); Red Cell Distribution Width 18.1 % (11.6-14.8); White Blood Cell Count 8.3 X10^3/uL (4.5-11.0)
[2024-03-03 05:52] LABS: BUN Creatinine Ratio 31.4 (6-22); Blood Urea Nitrogen 64 mg/dL (7-17); Calcium 9.4 mg/dL (8.4-10.2); Carbon Dioxide 34 mmol/L (22-32); Chloride 102 mmol/L (98-107); Estimated Glomerular Filt Rate 27 mL/min (>60); Glucose 180 mg/dL (80-110); HEMOLYSIS < 15 (0-50); Potassium 4.1 mmol/L (3.4-5.1); Sodium 138 mmol/L (137-145)
[2024-03-03] MEDS: LEVOTHYROXINE 100 MCG TABLET PO (06:27)
[2024-03-03] MEDS: LEVOTHYROXINE 75 MCG TABLET PO (06:27)
[2024-03-03] MEDS: PANTOPRAZOLE DR 40 MG TABLET PO (06:27)
[2024-03-03] MEDS: BUDESONIDE 0.5 MG/2 ML NEB INH ×2 (07:49→19:05)
[2024-03-03] MEDS: ALBUTEROL/IPRATROPIUM 3 ML AMPUL INH ×5 (07:49→22:29)
[2024-03-03] MEDS: INSULIN LISPRO 100 UNIT/ML 3ML VIAL SUBCUT ×7 (07:51→20:18)
[2024-03-03] MEDS: MAGNESIUM OXIDE 400 MG TABLET 200 MG PO ×2 (08:02→20:13)
[2024-03-03] MEDS: APIXABAN 5 MG TABLET PO ×2 (08:02→20:12)
[2024-03-03] MEDS: MONTELUKAST 10 MG TABLET PO (08:02)
[2024-03-03] MEDS: LORATADINE 10 MG TABLET PO (08:04)
[2024-03-03] MEDS: DOCUSATE 100 MG CAPSULE PO (08:04)
[2024-03-03] MEDS: METOPROLOL ER 25 MG TABLET PO ×2 (08:04→20:12)
[2024-03-03] MEDS: FLUoxetine 20 MG CAPSULE PO (08:04)
[2024-03-03] MEDS: predniSONE 20 MG TABLET 40 MG PO (08:09)
[2024-03-03] MEDS: buPROPion SR 100 MG TAB PO ×2 (08:09→20:13)
[2024-03-03] MEDS: INSULIN GLARGINE 100 UNIT/ML 3ML PEN 14 UNIT SUBCUT ×2 (08:10→20:19)
[2024-03-03] MEDS: MEROPENEM 1 GM in SODIUM CHLORIDE 0.9% 100 ML IV (08:11)
[2024-03-03] MEDS: SODIUM CHLORIDE 0.9% FLUSH 10 ML IV ×2 (08:21→20:13)
--- NOTE | 2024-03-03 08:41 | PM.PN.1 ---
Subjective Subjective Date Patient Seen: 03/03/24 Interval history: She is seen in her room today and seems to be content. She is smiling and engaged. She will be changed from meropenem to ertapenem. Her hemoglobin dropped from 11.2 down to 10.2. The creatinine improved also. It was 2.33 and is now 2.04. The glucose was 180. Labs will be repeated tomorrow. Exam Vital Signs (past 8 hours): - 03/03/24 01:00 03/03/24 01:00 03/03/24 01:30 Temperature Pulse Rate 58 L 58 L Respiratory Rate 20 21 Blood Pressure 105/55 L Pulse Oximetry 96 95 Oxygen Delivery Method Oxygen Flow Rate Fraction of Inspired Oxygen 03/03/24 01:30 03/03/24 02:00 03/03/24 02:01 Temperature Pulse Rate 169 H 164 H Respiratory Rate 26 H 28 H Blood Pressure 102/55 L Pulse Oximetry 96 96 Oxygen Delivery Method Oxygen Flow Rate Fraction of Inspired Oxygen 03/03/24 02:01 03/03/24 02:30 03/03/24 02:30 Temperature Pulse Rate 59 L Respiratory Rate 23 Blood Pressure 102/61 101/68 Pulse Oximetry 95 Oxygen Delivery Method Oxygen Flow Rate Fraction of Inspired Oxygen 03/03/24 03:00 03/03/24 03:01 03/03/24 03:01 Temperature Pulse Rate 58 L 60 Respiratory Rate 23 23 Blood Pressure 101/55 L Pulse Oximetry 95 96 Oxygen Delivery Method Oxygen Flow Rate Fraction of Inspired Oxygen 03/03/24 03:30 03/03/24 03:30 03/03/24 04:00 Temperature Pulse Rate 60 56 L Respiratory Rate 22 22 Blood Pressure 85/58 L Pulse Oximetry 95 95 Oxygen Delivery Method Oxygen Flow Rate Fraction of Inspired Oxygen 03/03/24 04:00 03/03/24 04:30 03/03/24 04:31 Temperature 97.6 F Pulse Rate 56 L 62 Respiratory Rate 22 22 Blood Pressure 88/57 L Pulse Oximetry 96 96 Oxygen Delivery Method Oxygen Flow Rate Fraction of Inspired Oxygen 03/03/24 04:31 03/03/24 04:54 03/03/24 05:00 Temperature Pulse Rate 58 L Respiratory Rate 23 Blood Pressure 114/56 L 114/56 L Pulse Oximetry 95 Oxygen Delivery Method Oxygen Flow Rate Fraction of Inspired Oxygen 40 03/03/24 05:00 03/03/24 05:30 03/03/24 05:30 Temperature Pulse Rate 53 L Respiratory Rate 23 Blood Pressure 100/57 L 97/52 L Pulse Oximetry 95 Oxygen Delivery Method Oxygen Flow Rate Fraction of Inspired Oxygen 03/03/24 06:00 03/03/24 06:00 03/03/24 06:30 Temperature Pulse Rate 58 L 83 Respiratory Rate 22 28 H Blood Pressure 100/63 Pulse Oximetry 96 96 Oxygen Delivery Method Oxygen Flow Rate Fraction of Inspired Oxygen 03/03/24 06:31 03/03/24 06:31 03/03/24 07:00 Temperature Pulse Rate 69 82 Respiratory Rate 24 25 H Blood Pressure 115/59 L Pulse Oximetry 94 93 Oxygen Delivery Method Oxygen Flow Rate Fraction of Inspired Oxygen 03/03/24 07:01 03/03/24 07:01 03/03/24 07:30 Temperature Pulse Rate 66 63 Respiratory Rate 27 H 26 H Blood Pressure 110/58 L Pulse Oximetry 94 94 Oxygen Delivery Method Oxygen Flow Rate Fraction of Inspired Oxygen 03/03/24 07:30 03/03/24 07:49 03/03/24 08:00 Temperature Pulse Rate 72 71 Respiratory Rate 20 24 Blood Pressure 117/58 L Pulse Oximetry 93 97 Oxygen Delivery Method Nasal Cannula Oxygen Flow Rate 3 Fraction of Inspired Oxygen 32 03/03/24 08:00 03/03/24 08:04 03/03/24 08:30 Temperature Pulse Rate 64 70 Respiratory Rate 30 H Blood Pressure 123/75 123/75 Pulse Oximetry 94 Oxygen Delivery Method Oxygen Flow Rate Fraction of Inspired Oxygen 03/03/24 08:31 03/03/24 08:31 Temperature Pulse Rate 72 Respiratory Rate 31 H Blood Pressure 116/87 Pulse Oximetry 94 Oxygen Delivery Method Oxygen Flow Rate Fraction of Inspired Oxygen Fraction of Inspired Oxygen 32 SaO2/FiO2 Ratio 290 Oxygen Delivery Method Nasal Cannula Oxygen Flow Rate 3 Narrative Exam Narrative: Alert and oriented x3. No apparent distress. Appears very, very weak. Heart is regular rate and rhythm without murmur. Lungs are clear to auscultation bilaterally. Extremities have no ankle edema. Objective Labs 03/03/24 05:40 03/03/24 05:40 Labs: Laboratory Results - last 24 hr 03/03/24 05:40 WBC 8.3 RBC 3.01 L Hgb 10.2 L Hct 31.0 L MCV 103.1 H MCH 34.0 MCHC 32.9 RDW 18.1 H Plt Count 145 L Neut % (Auto) 88.4 H Lymph % (Auto) 6.9 L [place] % (Auto) 4.4 Eos % (Auto) 0.1 L Baso % (Auto) 0.2 Neut # (Auto) 7300 H Lymph # (Auto) 600 L [place] # (Auto) 400 Eos # (Auto) 0 Baso # (Auto) 0 Sodium 138 Potassium 4.1 Chloride 102 Carbon Dioxide 34 H BUN 64 H Creatinine 2.04 H Estimated GFR 27 L BUN/Creatinine Ratio 31.4 H Glucose 180 H Calcium 9.4 PFSH Medical History Chronic hypercapnic respiratory failure PONCE (obstructive sleep apnea) Chronic hypoxemic respiratory failure COPD (chronic obstructive pulmonary disease) DM2 (diabetes mellitus, type 2) HTN (hypertension) Thyroiditis Systolic and diastolic CHF, chronic Obesity Surgical History S/P hernia surgery Family History Mother No pertinent past medical history Father No pertinent past medical history Social History household members: other Smoking Status: Former smoker alcohol intake: former Assessment & Plan Assessment & Plan narrative: 1. Septic shock, with acute metabolic encephalopathy, BLANCA, and #2 noted below secondary to acute cystitis with presumed ESBL organism. - hypotension resolved by 03/03/2024 - Stopped IV fluids, did also receive albumin bolus previously for hypotension. - takes 12.5 mg prednisone daily, currently on prednisone 40 mg daily for 3 days. - urine cultures ESBL E. Coli, changed from meropenem to ertapenem per pharmacy. Course will be 7 days, to end on 03/06 with evening dose. 2. Acute on chronic hypercapnic and hypoxic respiratory failure, present on admission - presumed secondary to sepsis. Initially given lasix but appears euvolemic to slightly hypovolemic. Now s/p fluid and albumin. BP improved today. - now on nasal cannula oxygen, doing well, continue bipap at night per usual home routine. 3. Paroxysmal atrial fibrillation with RVR - Resume metoprolol. Levophed is off. Stopped the oral amiodarone. - was in RVR after levophed started, gave 5 mg IV metoprolol, 250 mcg digoxin without much movement in rate. Improved after IV amiodarone load. Given a few doses of oral amiodarone, subsequently stopped. - anticoagulation - on eliquis 4. COPD with possible exacerbation, present on admission - treating with stress steroids as above, will transition to prednisone 40 mg today for another 3 days, then transition back to 12.5 mg daily - replace home inhalers with formulary nebs per respiratory therapy 5. Chronic systolic heart failure, present on admission - TTE as above - not on burton-inhibition chronically, follows with cardiology. - restarted beta alex - resumed torsemide on 03/03/2024. 6. History of recurrent ESBL UTI. - continue carbapenem as noted above. 7. DM 2, present on admission - sliding scale ordered, will decrease Lantus back to 14 units b.i.d. because of hypoglycemia - was also recently started on lirglutide, may not need as much insulin as previous admissions. 8. BLANCA on Chronic kidney disease with baseline creatinine 1.3, present on admission - secondary to sepsis. Improving with above management. 9. Hypothyroidism, - continue home levothyroxine Disposition is return to [facility] after last dose of ertapenem on 03/06 Code: Full, surrogate is patient's daughter DVT: on apixaban I have utilized all available immediate resources to obtain, update, or review the patient's current medications. Dispo: Possible return to SNF in 1-2 days. Additional history obtained via discussions with the ICU bedside RN, pharmacist, and case management social worker today. These discussions contributed to the creation of the above assessment and plan. I have reviewed patient's presenting documentation and labs personally. Time-Based Coding :: [TOTAL MINUTES] spent with patient and on the chart (including review of chart, obtaining history, exam, reviewing outside data, placing orders, documenting exam and treatment plan, and counseling patient) on [DATE]. Quality VTE Deep Vein Thrombosis/Pulmonary Embolism Present on Admission: No
[2024-03-03] MEDS: ERTAPENEM 1 GM in SODIUM CHLORIDE 0.9% 100 ML IV (11:37)
[2024-03-03] MEDS: TORSEMIDE 10 MG TABLET 30 MG PO (20:13)
[2024-03-03] MEDS: GABAPENTIN 300 MG CAPSULE PO (20:13)
[2024-03-03] MEDS: TRAZODONE 50 MG TABLET PO (20:13)
[2024-03-04] VITALS (59 sets, daily range): BP systolic 91–150; BP diastolic 49–85; PULSE 59–107; RESP 19–33; TEMP 27–36.8; O2SAT 89–97
[2024-03-04] MEDS: ALBUTEROL/IPRATROPIUM 3 ML AMPUL INH ×6 (06:02→22:08)
[2024-03-04] MEDS: BUDESONIDE 0.5 MG/2 ML NEB INH ×2 (06:02→19:14)
[2024-03-04] MEDS: LEVOTHYROXINE 75 MCG TABLET PO (06:06)
[2024-03-04] MEDS: LEVOTHYROXINE 100 MCG TABLET PO (06:06)
[2024-03-04] MEDS: PANTOPRAZOLE DR 40 MG TABLET PO (06:06)
[2024-03-04 06:23] LABS: Add Manual Diff / Slide Review NO; Basophils Absolute Auto 100 /uL (0-100); Basophils Percent Auto 1.2 % (0-2); Eosinophils Absolute Auto 0 /uL (0-450); Eosinophils Percent Auto 0.5 % (2-4); Hematocrit 32.9 % (36-46); Hemoglobin 10.6 g/dL (12.0-16.0); Lymphocytes Absolute Auto 1200 /uL (1100-4500); Lymphocytes Percent Auto 13.4 % (25-40); Mean Corpuscular HGB Conc 32.3 % (30-36); Mean Corpuscular Hemoglobin 33.5 PG (26-34); Mean Corpuscular Volume 103.5 fL (80-100); Monocytes Absolute Auto 500 /uL (0-900); Neutrophils Absolute Auto 6800 /uL (1500-7000); Neutrophils Percent Auto 78.9 % (50-75); Platelet Count 154 X10^3/uL (150-400); Red Blood Cell Count 3.18 X10^6/uL (4.0-5.2); Red Cell Distribution Width 18.1 % (11.6-14.8); White Blood Cell Count 8.7 X10^3/uL (4.5-11.0)
[2024-03-04 06:26] LABS: Alanine Aminotransferase 40 IU/L (<35); Albumin 3.1 g/dL (3.5-5.0); Albumin Globulin Ratio 1.2 (1.0-2.8); Alkaline Phosphatase 52 U/L (38-126); Aspartate Aminotransferase 20 IU/L (14-36); BUN Creatinine Ratio 37.4 (6-22); Bilirubin Total 0.5 mg/dL (0.2-1.3); Blood Urea Nitrogen 65 mg/dL (7-17); Calcium 9.4 mg/dL (8.4-10.2); Carbon Dioxide 39 mmol/L (22-32); Chloride 99 mmol/L (98-107); Estimated Glomerular Filt Rate 33 mL/min (>60); Globulin 2.5 g/dL (1.7-4.1); Glucose 124 mg/dL (80-110); HEMOLYSIS < 15 (0-50); Potassium 3.7 mmol/L (3.4-5.1); Sodium 141 mmol/L (137-145); Total Protein 5.6 g/dL (6.3-8.2)
[2024-03-04] MEDS: LORATADINE 10 MG TABLET PO (08:26)
[2024-03-04] MEDS: predniSONE 20 MG TABLET 40 MG PO (08:26)
[2024-03-04] MEDS: FLUoxetine 20 MG CAPSULE PO (08:26)
[2024-03-04] MEDS: buPROPion SR 100 MG TAB PO ×2 (08:26→20:06)
[2024-03-04] MEDS: MONTELUKAST 10 MG TABLET PO (08:26)
[2024-03-04] MEDS: DOCUSATE 100 MG CAPSULE PO (08:26)
[2024-03-04] MEDS: MAGNESIUM OXIDE 400 MG TABLET 200 MG PO ×2 (08:26→20:06)
[2024-03-04] MEDS: APIXABAN 5 MG TABLET PO ×2 (08:26→20:06)
[2024-03-04] MEDS: METOPROLOL ER 25 MG TABLET PO ×2 (08:26→20:06)
[2024-03-04] MEDS: INSULIN GLARGINE 100 UNIT/ML 3ML PEN 14 UNIT SUBCUT ×2 (08:27→20:12)
[2024-03-04] MEDS: INSULIN LISPRO 100 UNIT/ML 3ML VIAL SUBCUT ×6 (08:28→20:12)
[2024-03-04] MEDS: SODIUM CHLORIDE 0.9% FLUSH 10 ML IV ×3 (08:34→20:13)
[2024-03-04] MEDS: ERTAPENEM 1 GM in SODIUM CHLORIDE 0.9% 100 ML IV (11:38)
--- NOTE | 2024-03-04 13:00 | P.PN_ITS ---
Subjective Subjective Interval history: Patient without complaints today. Continues on carbapenem until 03/06 Exam Vital Signs (past 8 hours): - 03/04/24 06:02 03/04/24 06:24 03/04/24 07:00 Temperature Pulse Rate Respiratory Rate Blood Pressure 104/67 112/58 L Pulse Oximetry Oxygen Delivery Method Oxygen Flow Rate Fraction of Inspired Oxygen 35 35 03/04/24 07:00 03/04/24 07:30 03/04/24 07:30 Temperature Pulse Rate 63 60 Respiratory Rate 20 21 Blood Pressure 103/60 Pulse Oximetry 94 90 L Oxygen Delivery Method Oxygen Flow Rate Fraction of Inspired Oxygen 03/04/24 08:00 03/04/24 08:00 03/04/24 08:00 Temperature 97.8 F Pulse Rate 65 Respiratory Rate 22 Blood Pressure 116/61 Pulse Oximetry 90 L Oxygen Delivery Method Oxygen Flow Rate Fraction of Inspired Oxygen 03/04/24 08:00 03/04/24 08:00 03/04/24 08:26 Temperature Pulse Rate 96 H Respiratory Rate Blood Pressure 116/61 Pulse Oximetry 94 Oxygen Delivery Method Nasal Cannula BiPAP Nasal Cannula Oxygen Flow Rate 3 Fraction of Inspired Oxygen 03/04/24 08:30 03/04/24 08:30 03/04/24 08:56 Temperature Pulse Rate 87 70 Respiratory Rate 33 H Blood Pressure 130/75 111/66 Pulse Oximetry 92 Oxygen Delivery Method Oxygen Flow Rate Fraction of Inspired Oxygen 03/04/24 09:00 03/04/24 09:00 03/04/24 09:30 Temperature 97.5 F L Pulse Rate 70 Respiratory Rate 31 H Blood Pressure 123/81 111/66 Pulse Oximetry 94 Oxygen Delivery Method Oxygen Flow Rate Fraction of Inspired Oxygen 03/04/24 09:30 03/04/24 09:59 03/04/24 10:00 Temperature Pulse Rate 66 74 Respiratory Rate 25 H 20 Blood Pressure 111/75 Pulse Oximetry 95 95 Oxygen Delivery Method Nasal Cannula Oxygen Flow Rate 3 Fraction of Inspired Oxygen 32 03/04/24 10:00 03/04/24 10:30 03/04/24 10:30 Temperature Pulse Rate 66 66 Respiratory Rate 26 H 27 H Blood Pressure 117/78 Pulse Oximetry 96 94 Oxygen Delivery Method Oxygen Flow Rate Fraction of Inspired Oxygen 03/04/24 11:00 03/04/24 11:00 03/04/24 11:30 Temperature Pulse Rate 67 Respiratory Rate 27 H Blood Pressure 124/81 125/78 Pulse Oximetry 97 Oxygen Delivery Method Oxygen Flow Rate Fraction of Inspired Oxygen 03/04/24 11:30 03/04/24 12:00 03/04/24 12:00 Temperature 97.6 F Pulse Rate 66 Respiratory Rate 25 H Blood Pressure Pulse Oximetry 95 96 Oxygen Delivery Method Nasal Cannula Oxygen Flow Rate 3 Fraction of Inspired Oxygen 03/04/24 12:00 03/04/24 12:00 03/04/24 12:30 Temperature Pulse Rate 63 Respiratory Rate 24 Blood Pressure 135/72 131/75 Pulse Oximetry 95 Oxygen Delivery Method Oxygen Flow Rate Fraction of Inspired Oxygen 03/04/24 12:30 Temperature Pulse Rate 66 Respiratory Rate 28 H Blood Pressure Pulse Oximetry 92 Oxygen Delivery Method Oxygen Flow Rate Fraction of Inspired Oxygen Fraction of Inspired Oxygen 32 SaO2/FiO2 Ratio 296 Oxygen Delivery Method Nasal Cannula Oxygen Flow Rate 3 Narrative Exam Narrative: Gen: obese female, no acute distress, awake and alert CV: RRR no m/r/g Pulm: diminished breath sounds bilateral lung bases, no wheezing Abd: S NT ND Ext: trace peripheral non pitting edema, chronic venous stasis changes, no erythema or warmth noted Objective Labs 03/04/24 06:05 03/04/24 06:05 Labs: Laboratory Results - last 24 hr 03/04/24 06:05 WBC 8.7 RBC 3.18 L Hgb 10.6 L Hct 32.9 L MCV 103.5 H MCH 33.5 MCHC 32.3 RDW 18.1 H Plt Count 154 Neut % (Auto) 78.9 H Lymph % (Auto) 13.4 L [place] % (Auto) 6.0 Eos % (Auto) 0.5 L Baso % (Auto) 1.2 Neut # (Auto) 6800 Lymph # (Auto) 1200 [place] # (Auto) 500 Eos # (Auto) 0 Baso # (Auto) 100 Sodium 141 Potassium 3.7 Chloride 99 Carbon Dioxide 39 H BUN 65 H Creatinine 1.74 H Estimated GFR 33 L BUN/Creatinine Ratio 37.4 H Glucose 124 H Calcium 9.4 Total Bilirubin 0.5 AST 20 ALT 40 H Alkaline Phosphatase 52 Total Protein 5.6 L Albumin 3.1 L Globulin 2.5 Albumin/Globulin Ratio 1.2 PFSH Medical History Chronic hypercapnic respiratory failure PONCE (obstructive sleep apnea) Chronic hypoxemic respiratory failure COPD (chronic obstructive pulmonary disease) DM2 (diabetes mellitus, type 2) HTN (hypertension) Thyroiditis Systolic and diastolic CHF, chronic Obesity Surgical History S/P hernia surgery Family History Mother No pertinent past medical history Father No pertinent past medical history Social History household members: other Smoking Status: Former smoker alcohol intake: former Assessment & Plan Assessment & Plan narrative: 1. Septic shock, with acute metabolic encephalopathy, BLANCA, and #2 noted below secondary to acute cystitis with presumed ESBL organism. - hypotension resolved - Stopped IV fluids, did also receive albumin bolus previously for hypotension. - takes 12.5 mg prednisone daily, currently on prednisone 40 mg daily for 3 days to end today, with regular 12.5 mg to resume tomorrow. - urine cultures ESBL E. Coli, changed from meropenem to ertapenem per pharmacy. Course will be 7 days, to end on 03/06 with morning dose. 2. Acute on chronic hypercapnic and hypoxic respiratory failure, present on admission - presumed secondary to sepsis. Initially given lasix but appears euvolemic to slightly hypovolemic. Now s/p fluid and albumin but not for several days. - now on nasal cannula oxygen, doing well, continue bipap at night per usual home routine. 3. Paroxysmal atrial fibrillation with RVR - Resume metoprolol. Levophed is off. Stopped the oral amiodarone. - was in RVR after levophed started, gave 5 mg IV metoprolol, 250 mcg digoxin without much movement in rate. Improved after IV amiodarone load. Given a few doses of oral amiodarone, subsequently stopped. - anticoagulation - on eliquis 4. COPD with possible exacerbation, present on admission - treating with stress steroids as above, will transition to prednisone 40 mg today for another 3 days, then transition back to 12.5 mg daily starting tomorrow. - replace home inhalers with formulary nebs per respiratory therapy 5. Chronic systolic heart failure, present on admission - TTE as above - not on burton-inhibition chronically, follows with cardiology. - restarted beta alex - resumed torsemide on 03/03/2024. 6. History of recurrent ESBL UTI. - continue carbapenem as noted above. 7. DM 2, present on admission - sliding scale ordered, will decrease Lantus back to 14 units b.i.d. because of hypoglycemia - was also recently started on lirglutide, may not need as much insulin as previous admissions. 8. BLANCA on Chronic kidney disease with baseline creatinine 1.3, present on admission - secondary to sepsis. Improving with above management. 9. Hypothyroidism, - continue home levothyroxine Disposition is return to [facility] after last dose of ertapenem on 03/06 Code: Full, surrogate is patient's daughter DVT: on apixaban I have utilized all available immediate resources to obtain, update, or review the patient's current medications. Dispo: Return to SNF 03/06. Additional history obtained via discussions with the bedside RN, pharmacist, and telehealth case manager today. These discussions contributed to the creation of the above assessment and plan. I have reviewed patient's presenting documentation and labs personally. Time-Based Coding :: [TOTAL MINUTES] spent with patient and on the chart (including review of chart, obtaining history, exam, reviewing outside data, placing orders, documenting exam and treatment plan, and counseling patient) on [DATE]. Quality VTE Deep Vein Thrombosis/Pulmonary Embolism Present on Admission: No
--- NOTE | 2024-03-04 15:25 | CM.DPC ---
DCP Cont: Per MD, confirms that pt's IV abx changed and last dose is 03/06 and likely could benefit from remaining in the hospital for her course of IV abx due to her comorbidities. Admissions at [facility] were updated yesterday as they had been working on carve out with insurance for the initial IV-Abx and they confirm they can accept pt on Mon. [place]
[2024-03-04] MEDS: GABAPENTIN 300 MG CAPSULE PO (20:06)
[2024-03-04] MEDS: TRAZODONE 50 MG TABLET PO (20:06)
[2024-03-04] MEDS: TORSEMIDE 10 MG TABLET 30 MG PO (20:06)
[2024-03-05] VITALS (64 sets, daily range): BP systolic 94–132; BP diastolic 54–79; PULSE 56–141; RESP 20–39; TEMP 29.5–36.6; O2SAT 91–98
[2024-03-05] MEDS: LEVOTHYROXINE 100 MCG TABLET PO (06:05)
[2024-03-05] MEDS: LEVOTHYROXINE 75 MCG TABLET PO (06:05)
[2024-03-05] MEDS: PANTOPRAZOLE DR 40 MG TABLET PO (06:05)
[2024-03-05] MEDS: BUDESONIDE 0.5 MG/2 ML NEB INH ×2 (06:13→19:32)
[2024-03-05] MEDS: ALBUTEROL/IPRATROPIUM 3 ML AMPUL INH ×6 (06:13→22:14)
[2024-03-05] MEDS: FLUoxetine 20 MG CAPSULE PO (08:12)
[2024-03-05] MEDS: APIXABAN 5 MG TABLET PO ×2 (08:13→20:12)
[2024-03-05] MEDS: MONTELUKAST 10 MG TABLET PO (08:13)
[2024-03-05] MEDS: LORATADINE 10 MG TABLET PO (08:13)
[2024-03-05] MEDS: DOCUSATE 100 MG CAPSULE PO (08:13)
[2024-03-05] MEDS: buPROPion SR 100 MG TAB PO ×2 (08:13→20:12)
[2024-03-05] MEDS: predniSONE 5 MG TABLET 12.5 MG PO (08:13)
[2024-03-05] MEDS: MAGNESIUM OXIDE 400 MG TABLET 200 MG PO ×2 (08:14→20:12)
[2024-03-05] MEDS: INSULIN GLARGINE 100 UNIT/ML 3ML PEN 14 UNIT SUBCUT ×2 (08:15→20:12)
[2024-03-05] MEDS: INSULIN LISPRO 100 UNIT/ML 3ML VIAL SUBCUT ×7 (08:16→20:13)
[2024-03-05] MEDS: SODIUM CHLORIDE 0.9% FLUSH 10 ML IV ×3 (08:21→20:13)
[2024-03-05] MEDS: METOPROLOL ER 25 MG TABLET PO ×2 (08:27→20:11)
--- NOTE | 2024-03-05 10:28 | DIET.CONS ---
Dietary Consultation Note Admission Date: 02/28/2024 11:11 Assessment: 63 y F admitted for septic shock with acute metabolic encephalopathy, BLANCA, and resp failure. RD screened for LOS. EMR reviewed. PMH of CHF, DM2, CKD. Pt with average PO intakes >75%. DFM reviewed. No weight loss within past year. BG this morning 146. Prednisone dose reduced from 40 mg to 12.5 mg today. Lives at [facility], staff assist with all ADLs. DFM reviewed for meal composition, pt ordering extra protein-based food with meals 1-2x/day already estimated to be meeting EER. Majority of meals ordering 2-3 CHO servings. No interventions needed while PO intakes remain >75%. Will continue to monitor intakes. EER: 85 g protein (1.2 g/kg per normally nourished w/ CHF) Ht: 167.64 cm Wt: 122.5 kg BMI: 43.6 UBW: 117.934 kg on 01/14/24, weight between 114-123 kg in past year Last BM: 03/04/24 (03/04/24 18:35) MNA: 11 Matt Score: 17 Diet: 02/29/24 Breakfast Carbohydrate Consistent Diet Diet Modifications: Carbohydrate level: Large (4 CHO) Reflex DM orders: No Food Texture: Level 7 - Regular Liquid Consistency: Level 0 - Thin Nutrition Percent Meal Consumed 75% 03/04/24 18:35 Percent Meal Consumed 50% 03/04/24 18:15 Percent Meal Consumed 75% 03/04/24 09:18 Percent Meal Consumed 100% 03/03/24 18:09 Labs: RBC 3.18 X10^6/uL (4.0-5.2) L 03/04/24 06:05 Hgb 10.6 g/dL (12.0-16.0) L 03/04/24 06:05 Hct 32.9 % (36-46) L 03/04/24 06:05 Creatinine 1.74 mg/dL (0.52-1.04) H 03/04/24 06:05 Lactate 1.2 mmol/L (0.7-2.1) 02/28/24 20:20 NT-Pro-B Natriuret Pep 17979 pg/mL (<125) H 02/28/24 07:18 Electronically Signed by: Mary Lou Valente 03/05/24 10:28 Clinical Dietitian [address] [id number]
[2024-03-05] MEDS: ERTAPENEM 1 GM in SODIUM CHLORIDE 0.9% 100 ML IV (12:03)
--- NOTE | 2024-03-05 14:37 | CM.DPC ---
DCP Cont. Reviewed EMR and team rounds for status updates. Pt is completing her last IV ABO dose tomorrow, then will d/c back to [facility]. Will need to confirm transport plan-facility van vs. BLS tomorrow am.
--- NOTE | 2024-03-05 18:10 | PM.PN.1 ---
Subjective Subjective Interval history: Patient without complaints today. Continues on carbapenem until 03/06 Exam Vital Signs (past 8 hours): - 03/05/24 10:30 03/05/24 11:00 03/05/24 11:30 Temperature Pulse Rate 62 67 61 Respiratory Rate 27 H 28 H 26 H Blood Pressure Pulse Oximetry 97 96 98 Oxygen Delivery Method Oxygen Flow Rate Fraction of Inspired Oxygen 03/05/24 12:00 03/05/24 12:12 03/05/24 12:12 Temperature Pulse Rate 67 60 Respiratory Rate 21 26 H Blood Pressure 125/71 Pulse Oximetry 96 95 Oxygen Delivery Method Oxygen Flow Rate Fraction of Inspired Oxygen 03/05/24 12:30 03/05/24 13:00 03/05/24 13:30 Temperature Pulse Rate 67 64 71 Respiratory Rate 28 H 39 H 26 H Blood Pressure Pulse Oximetry 98 94 92 Oxygen Delivery Method Oxygen Flow Rate Fraction of Inspired Oxygen 03/05/24 13:35 03/05/24 14:00 03/05/24 14:30 Temperature Pulse Rate 102 H 71 67 Respiratory Rate 20 28 H 26 H Blood Pressure Pulse Oximetry 93 95 94 Oxygen Delivery Method Nasal Cannula Oxygen Flow Rate 3 Fraction of Inspired Oxygen 32 03/05/24 15:00 03/05/24 15:30 03/05/24 15:30 Temperature Pulse Rate 70 65 Respiratory Rate 26 H 34 H Blood Pressure 111/62 Pulse Oximetry 93 95 Oxygen Delivery Method Oxygen Flow Rate Fraction of Inspired Oxygen 03/05/24 16:00 03/05/24 16:30 03/05/24 17:00 Temperature Pulse Rate 65 62 63 Respiratory Rate 27 H 29 H 27 H Blood Pressure Pulse Oximetry 95 96 96 Oxygen Delivery Method Oxygen Flow Rate Fraction of Inspired Oxygen 03/05/24 17:00 03/05/24 17:22 03/05/24 17:22 Temperature 97.3 F L Pulse Rate 64 Respiratory Rate 29 H Blood Pressure 107/74 Pulse Oximetry 94 Oxygen Delivery Method Oxygen Flow Rate Fraction of Inspired Oxygen 03/05/24 17:30 Temperature Pulse Rate 63 Respiratory Rate 25 H Blood Pressure Pulse Oximetry 94 Oxygen Delivery Method Oxygen Flow Rate Fraction of Inspired Oxygen Fraction of Inspired Oxygen 32 SaO2/FiO2 Ratio 290 Oxygen Delivery Method Nasal Cannula Oxygen Flow Rate 3 Narrative Exam Narrative: Gen: obese female, no acute distress, awake and alert CV: RRR no m/r/g Pulm: diminished breath sounds bilateral lung bases, no wheezing Abd: S NT ND Ext: trace peripheral non pitting edema, chronic venous stasis changes, no erythema or warmth noted Objective Labs 03/04/24 06:05 03/04/24 06:05 [facility] Medical History Chronic hypercapnic respiratory failure PONCE (obstructive sleep apnea) Chronic hypoxemic respiratory failure COPD (chronic obstructive pulmonary disease) DM2 (diabetes mellitus, type 2) HTN (hypertension) Thyroiditis Systolic and diastolic CHF, chronic Obesity Surgical History S/P hernia surgery Family History Mother No pertinent past medical history Father No pertinent past medical history Social History household members: other Smoking Status: Former smoker alcohol intake: former Assessment & Plan Assessment & Plan narrative: 1. Septic shock, with acute metabolic encephalopathy, BLANCA, and #2 noted below secondary to acute cystitis with presumed ESBL organism. - hypotension resolved - Stopped IV fluids, did also receive albumin bolus previously for hypotension. - takes 12.5 mg prednisone daily, currently on prednisone 40 mg daily for 3 days to end today, with regular 12.5 mg to resume tomorrow. - urine cultures ESBL E. Coli, changed from meropenem to ertapenem per pharmacy. Course will be 7 days, to end on 03/06 with morning dose. 2. Acute on chronic hypercapnic and hypoxic respiratory failure, present on admission - presumed secondary to sepsis. Initially given lasix but appears euvolemic to slightly hypovolemic. Now s/p fluid and albumin but not for several days. - now on nasal cannula oxygen, doing well, continue bipap at night per usual home routine. 3. Paroxysmal atrial fibrillation with RVR - Resume metoprolol. Levophed is off. Stopped the oral amiodarone. - was in RVR after levophed started, gave 5 mg IV metoprolol, 250 mcg digoxin without much movement in rate. Improved after IV amiodarone load. Given a few doses of oral amiodarone, subsequently stopped. - anticoagulation - on eliquis 4. COPD with possible exacerbation, present on admission - treating with stress steroids as above, will transition to prednisone 40 mg today for another 3 days, then transition back to 12.5 mg daily starting tomorrow. - replace home inhalers with formulary nebs per respiratory therapy 5. Chronic systolic heart failure, present on admission - TTE as above - not on burton-inhibition chronically, follows with cardiology. - restarted beta alex - resumed torsemide on 03/03/2024. 6. History of recurrent ESBL UTI. - continue carbapenem as noted above. 7. DM 2, present on admission - sliding scale ordered, will decrease Lantus back to 14 units b.i.d. because of hypoglycemia - was also recently started on lirglutide, may not need as much insulin as previous admissions. 8. BLANCA on Chronic kidney disease with baseline creatinine 1.3, present on admission - secondary to sepsis. Improving with above management. 9. Hypothyroidism, - continue home levothyroxine Disposition is return to [facility] after last dose of ertapenem on 03/06 Code: Full, surrogate is patient's daughter DVT: on apixaban I have utilized all available immediate resources to obtain, update, or review the patient's current medications. Dispo: Return to SNF 03/06. Additional history obtained via discussions with the bedside RN, pharmacist, and correctional casework specialist today. These discussions contributed to the creation of the above assessment and plan. I have reviewed patient's presenting documentation and labs personally. Time-Based Coding :: [TOTAL MINUTES] spent with patient and on the chart (including review of chart, obtaining history, exam, reviewing outside data, placing orders, documenting exam and treatment plan, and counseling patient) on [DATE]. Quality VTE Deep Vein Thrombosis/Pulmonary Embolism Present on Admission: No
[2024-03-05] MEDS: GABAPENTIN 300 MG CAPSULE PO (20:11)
[2024-03-05] MEDS: TORSEMIDE 10 MG TABLET 30 MG PO (20:12)
[2024-03-05] MEDS: TRAZODONE 50 MG TABLET PO (20:12)
[2024-03-06] VITALS (27 sets, daily range): BP systolic 94–155; BP diastolic 50–86; PULSE 61–90; RESP 20–32; TEMP 30.9–36.6; O2SAT 91–97
[2024-03-06] MEDS: BUDESONIDE 0.5 MG/2 ML NEB INH (06:02)
[2024-03-06] MEDS: ALBUTEROL/IPRATROPIUM 3 ML AMPUL INH ×3 (06:02→09:04)
[2024-03-06] MEDS: LEVOTHYROXINE 100 MCG TABLET PO (06:27)
[2024-03-06] MEDS: PANTOPRAZOLE DR 40 MG TABLET PO (06:27)
[2024-03-06] MEDS: LEVOTHYROXINE 75 MCG TABLET PO (06:27)
[2024-03-06 06:40] LABS: Add Manual Diff / Slide Review NO; Basophils Absolute Auto 100 /uL (0-100); Basophils Percent Auto 0.7 % (0-2); Eosinophils Absolute Auto 0 /uL (0-450); Eosinophils Percent Auto 0.5 % (2-4); Hematocrit 36.1 % (36-46); Hemoglobin 11.7 g/dL (12.0-16.0); Lymphocytes Absolute Auto 1600 /uL (1100-4500); Lymphocytes Percent Auto 16.3 % (25-40); Mean Corpuscular HGB Conc 32.3 % (30-36); Mean Corpuscular Hemoglobin 33.3 PG (26-34); Mean Corpuscular Volume 103.1 fL (80-100); Monocytes Absolute Auto 600 /uL (0-900); Monocytes Percent Auto 6.1 % (3-14); Neutrophils Absolute Auto 7600 /uL (1500-7000); Neutrophils Percent Auto 76.4 % (50-75); Platelet Count 177 X10^3/uL (150-400); Red Cell Distribution Width 17.5 % (11.6-14.8); White Blood Cell Count 9.9 X10^3/uL (4.5-11.0)
[2024-03-06 06:52] LABS: BUN Creatinine Ratio 51.1 (6-22); Blood Urea Nitrogen 69 mg/dL (7-17); Calcium 9.4 mg/dL (8.4-10.2); Chloride 94 mmol/L (98-107); Estimated Glomerular Filt Rate 44 mL/min (>60); Glucose 132 mg/dL (80-110); HEMOLYSIS < 15 (0-50); Magnesium 1.9 mg/dL (1.6-2.3); Potassium 3.8 mmol/L (3.4-5.1); Sodium 139 mmol/L (137-145)
[2024-03-06 06:59] LABS: Carbon Dioxide 39 mmol/L (22-32)
[2024-03-06] MEDS: INSULIN GLARGINE 100 UNIT/ML 3ML PEN 14 UNIT SUBCUT (08:04)
[2024-03-06] MEDS: INSULIN LISPRO 100 UNIT/ML 3ML VIAL SUBCUT ×2 (08:05→08:06)
[2024-03-06] MEDS: APIXABAN 5 MG TABLET PO (08:08)
[2024-03-06] MEDS: LORATADINE 10 MG TABLET PO (08:08)
[2024-03-06] MEDS: DOCUSATE 100 MG CAPSULE PO (08:08)
[2024-03-06] MEDS: predniSONE 5 MG TABLET 12.5 MG PO (08:08)
[2024-03-06] MEDS: buPROPion SR 100 MG TAB PO (08:09)
[2024-03-06] MEDS: FLUoxetine 20 MG CAPSULE PO (08:09)
[2024-03-06] MEDS: MONTELUKAST 10 MG TABLET PO (08:09)
[2024-03-06] MEDS: MAGNESIUM OXIDE 400 MG TABLET 200 MG PO (08:10)
[2024-03-06] MEDS: SODIUM CHLORIDE 0.9% FLUSH 10 ML IV (08:10)
[2024-03-06] MEDS: ERTAPENEM 1 GM in SODIUM CHLORIDE 0.9% 100 ML IV (10:09)
--- NOTE | 2024-03-06 11:00 | P.DS_ITS ---
History of Present Illness History of Present Illness Chief complaint: SOB Narrative: From H&P: Mary Carmen Jett is a 62yo F with PMH of DM2, COPD on chronic 2L O2, HFrEF of approx 25% (last known 2022), morbid obesity, PONCE, HTN, hypothyroidism, frequent UTI's, depression and frequent admissions requiring Bipap for hypercapnea who presents with somnolence and altered mental status. She was reportedly found off of her home BIPAP overnight, unable to provide a history in the ER. Initial blood gas PCO2 appeared near her baseline, but she was brought in on BIPAP. She was still lethargic and unable to provide history now. BP were soft, UA ended up being positive. She was brought to the ICU for further management. In the ICU, she has since been placed on levophed, then developed afib with RVR. Discharge Providers Provider Date of admission: 02/28/24 11:11 Discharge Date: 03/06/24 Primary care physician: Manish Vernon MD Consults: Discussed with Infectious Disease. Discharge provider: Ramon Howard MD Summary Hospital Course Discharge Diagnosis: 1. Septic shock, with acute metabolic encephalopathy, BLANCA, and #2 noted below secondary to acute cystitis with presumed ESBL organism. Present on admission and resolved. - hypotension resolved - Stopped IV fluids, did also receive albumin bolus previously for hypotension. - takes 12.5 mg prednisone daily, currently on prednisone 40 mg daily for 3 days to end today, with regular 12.5 mg to resume tomorrow. - urine cultures ESBL E. Coli, changed from meropenem to ertapenem per pharmacy. Course will be 7 days, to end on 03/06 with morning dose. 2. Acute on chronic hypercapnic and hypoxic respiratory failure, present on admission and improved. - presumed secondary to sepsis. Initially given lasix but appears euvolemic to slightly hypovolemic. Now s/p fluid and albumin but not for several days. - now on nasal cannula oxygen, doing well, continue bipap at night per usual home routine. 3. Paroxysmal atrial fibrillation with RVR, present on admission and improved. - Resume metoprolol. Levophed is off. Stopped the oral amiodarone. - was in RVR after levophed started, gave 5 mg IV metoprolol, 250 mcg digoxin without much movement in rate. Improved after IV amiodarone load. Given a few doses of oral amiodarone, subsequently stopped. - anticoagulation - on eliquis 4. COPD with possible exacerbation, present on admission and improved. - treating with stress steroids as above, will transition to prednisone 40 mg today for another 3 days, then transition back to 12.5 mg daily starting tomorrow. - replace home inhalers with formulary nebs per respiratory therapy 5. Chronic systolic heart failure, present on admission and stable. - TTE as above - not on burton-inhibition chronically, follows with cardiology. - restarted beta alex - resumed torsemide on 03/03/2024. 6. History of recurrent ESBL UTI. Present on admission and improved. - continue carbapenem as noted above. 7. DM 2, present on admission and stable. - sliding scale ordered, will decrease Lantus back to 14 units b.i.d. because of hypoglycemia - was also recently started on lirglutide, may not need as much insulin as previous admissions. 8. BLANCA on Chronic kidney disease with baseline creatinine 1.3, present on admission and improved. - secondary to sepsis. Improving with above management. 9. Hypothyroidism, present on admission and stable. - continue home levothyroxine Hospital Course: The patient was admitted with septic shock and improved to fluid resuscitation. The patient also received albumin and empiric antibiotics. She was found to have recurrent ESBL UTI and treated with ertapenem. The patient was initially hypoxic but improved. She also had initial AFib with RVR which also improved once she came off from vasopressors. She was treated with stress dose steroids for COPD and this improved as well. Her BLANCA also improved over the course of her hospital stay. She was able to complete her 7 day course of ertapenem on March 06 and was feeling well and stable for discharge back to [facility]. She has been at [facility] for 2 years. A PICC line was placed for access and antibiotics and will be removed prior to discharge. An echo revealed an improvement of her EF from previous EF of 15-20% up to 25- 30%. She was global hypokinesis. Status at Discharge Cognitive/behavioral status at discharge: oriented Functional status at discharge: uses cane/walker Overall status at discharge: patient is progressing back to baseline Time Spent with Patient Time spent: Greater than 30 minutes Exam Vital Signs (past 8 hours): - 03/06/24 03:01 03/06/24 03:01 03/06/24 04:01 Temperature Pulse Rate 67 78 Respiratory Rate 20 20 Blood Pressure 115/51 L Pulse Oximetry 93 92 Oxygen Delivery Method Oxygen Flow Rate Fraction of Inspired Oxygen 03/06/24 04:17 03/06/24 04:17 03/06/24 04:30 Temperature Pulse Rate 76 64 Respiratory Rate 20 21 Blood Pressure 98/50 L Pulse Oximetry 92 91 Oxygen Delivery Method Oxygen Flow Rate Fraction of Inspired Oxygen 03/06/24 05:00 03/06/24 05:01 03/06/24 05:01 Temperature Pulse Rate 68 77 Respiratory Rate 20 20 Blood Pressure 103/54 L Pulse Oximetry 93 93 Oxygen Delivery Method Oxygen Flow Rate Fraction of Inspired Oxygen 03/06/24 05:30 03/06/24 06:00 03/06/24 06:01 Temperature Pulse Rate 75 66 78 Respiratory Rate 22 24 23 Blood Pressure Pulse Oximetry 93 94 93 Oxygen Delivery Method Oxygen Flow Rate Fraction of Inspired Oxygen 03/06/24 06:01 03/06/24 06:02 03/06/24 07:00 Temperature Pulse Rate 75 Respiratory Rate 22 Blood Pressure 94/51 L 94/51 L Pulse Oximetry 93 Oxygen Delivery Method Oxygen Flow Rate Fraction of Inspired Oxygen 35 03/06/24 07:30 03/06/24 07:50 03/06/24 08:00 Temperature Pulse Rate 72 Respiratory Rate 29 H Blood Pressure Pulse Oximetry 92 94 Oxygen Delivery Method Nasal Cannula Nasal Cannula Oxygen Flow Rate 3 Fraction of Inspired Oxygen 32 03/06/24 08:00 03/06/24 08:00 03/06/24 08:00 Temperature 97.8 F Pulse Rate 78 Respiratory Rate 26 H Blood Pressure 127/86 Pulse Oximetry 94 Oxygen Delivery Method Oxygen Flow Rate Fraction of Inspired Oxygen 03/06/24 08:30 03/06/24 09:00 03/06/24 09:00 Temperature Pulse Rate 77 77 Respiratory Rate 27 H 32 H Blood Pressure Pulse Oximetry 94 97 95 Oxygen Delivery Method Nasal Cannula Oxygen Flow Rate 3 Fraction of Inspired Oxygen 03/06/24 09:01 03/06/24 09:01 03/06/24 09:04 Temperature Pulse Rate 80 90 Respiratory Rate 27 H 20 Blood Pressure 155/56 H Pulse Oximetry 96 96 Oxygen Delivery Method Nasal Cannula Oxygen Flow Rate 3 Fraction of Inspired Oxygen Fraction of Inspired Oxygen 32 SaO2/FiO2 Ratio 293 Oxygen Delivery Method Nasal Cannula Oxygen Flow Rate 3 Narrative Exam Narrative: NAD, alert and oriented. Fluent speech. Morbidly obese. Lungs are clear, normal rate and effort. Heart is regular, no murmur gallop or rub. Abdomen is soft, non distended. Extremities are free of edema. Objective ECG Impression: Left axis deviation Left bundle branch block NO SIGNIFICANT CHANGE FROM PRIOR TRACING Imaging Chest x-ray: Radiologist's impression: PICC in place, no infiltrates. Echo: My impression: The study quality was technically difficult. The left ventricle is mildly dilated. LVEF is difficult to estimate despite the use of Definity. The estimated LVEF appears to be 25 to 30% range. There appears to be overall significant global hypokinesis. Previous LVEF 15 to 20%. The right ventricle is grossly normal size. The right ventricular systolic function is normal.TAPSE: 2.1 cm. In comparison to previous study, RV function improved. All the valves were not well-visualized however no significant gross abnormalities seen. Radiologist's impression: Tip of PICC projects to the area of SVC/caval junction. Labs 03/06/24 06:30 03/06/24 06:30 Labs: Laboratory Results - last 24 hr 03/06/24 06:30 WBC 9.9 RBC 3.50 L Hgb 11.7 L Hct 36.1 MCV 103.1 H MCH 33.3 MCHC 32.3 RDW 17.5 H Plt Count 177 Neut % (Auto) 76.4 H Lymph % (Auto) 16.3 L [place] % (Auto) 6.1 Eos % (Auto) 0.5 L Baso % (Auto) 0.7 Neut # (Auto) 7600 H Lymph # (Auto) 1600 [place] # (Auto) 600 Eos # (Auto) 0 Baso # (Auto) 100 Sodium 139 Potassium 3.8 Chloride 94 L Carbon Dioxide 39 H BUN 69 H Creatinine 1.35 H Estimated GFR 44 L BUN/Creatinine Ratio 51.1 H Glucose 132 H Calcium 9.4 Magnesium 1.9 PFSH Medical History Chronic hypercapnic respiratory failure PONCE (obstructive sleep apnea) Chronic hypoxemic respiratory failure COPD (chronic obstructive pulmonary disease) DM2 (diabetes mellitus, type 2) HTN (hypertension) Thyroiditis Systolic and diastolic CHF, chronic Obesity Surgical History S/P hernia surgery Family History Mother No pertinent past medical history Father No pertinent past medical history Social History household members: other Smoking Status: Former smoker alcohol intake: former Discharge Assessment & Plan Assessment and Plan Assessment: 1. Septic shock, with acute metabolic encephalopathy, BLANCA, and #2 noted below secondary to acute cystitis with presumed ESBL organism. Present on admission and resolved. 2. Acute on chronic hypercapnic and hypoxic respiratory failure, present on admission and improved. 3. Paroxysmal atrial fibrillation with RVR, present on admission and improved. 4. COPD with possible exacerbation, present on admission and improved. 5. Chronic systolic heart failure, present on admission and stable. 6. History of recurrent ESBL UTI. Present on admission and improved. 7. DM 2, present on admission and stable. 8. BLANCA on Chronic kidney disease with baseline creatinine 1.3, present on admission and improved. 9. Hypothyroidism, present on admission and stable. Plan of Treatment: Discharge to [facility] long term facility for ongoing care. He was complete her antibiotics course. She did require some adjustments to insulin while in the hospital which be carried forward. Discharge Plan Discharge Plan Patient Disposition: SNF Transfer to: [facility] Under care of provider: Dr Martinez. Provider Discharge Comment: Stable for discharge back to [facility]. Discharge orders & Medications Prescriptions: Continued albuterol sulfate 90 mcg/actuation HFA aerosol inhaler 4 puff INHALATION Q4H PRN (Reason: Shortness Of Breath Or Wheezing) levothyroxine 175 mcg tablet 175 mcg PO DAILY potassium chloride 10 mEq tablet extended release 20 meq PO DAILY torsemide 10 mg tablet 30 mg PO BEDTIME metoprolol succinate 25 mg Tablet Extended Release 24 Hr 25 mg PO BID insulin glargine 100 unit/mL (3 mL) Insulin Pen 22 unit SUBCUT QAM liraglutide 0.6 mg/0.1 mL (18 mg/3 mL) pen injector 1.2 mg SUBCUT DAILY Patient Comments: [NO ORIGINAL SIG] apixaban 5 mg Tablet 5 mg PO BID Jardiance 10 mg Tablet 10 mg PO DAILY prednisone 10 mg tablet 12.5 mg PO DAILY Rx Instructions: until 03/10/24 then decrease to 10 mg daily sennosides [senna] 8.6 mg tablet 17.2 mg PO BEDTIME acetaminophen [Tylenol] 325 mg Tablet 650 mg PO TID trazodone 50 mg tablet 50 mg PO BEDTIME cyanocobalamin (vitamin B-12) 500 mcg Tablet 500 mcg PO DAILY fluoxetine 20 mg Tablet 20 mg PO DAILY gabapentin 300 mg Capsule 300 mg PO BEDTIME montelukast 10 mg Tablet 10 mg PO DAILY insulin lispro [Humalog U-100 Insulin] 100 unit/mL Solution See Protocol SUBCUT TIDWM Protocol: TITRATE PER PROTOCOL Rx Instructions: sliding scale 121-150=2 units; 151-200=4 units; 201-250=6 units; 251-350=10 units; 351- 450=14 units; 451+=16 units ondansetron 4 mg Tablet,Disintegrating 4 mg PO Q8H PRN (Reason: Nausea) fluticasone propionate 50 mcg/actuation Shorter,Suspension 2 spray INTRANASAL DAILY Rx Instructions: administer into each nostril loratadine 10 mg Tablet 10 mg PO DAILY rosuvastatin 40 mg Tablet 40 mg PO DAILY tiotropium bromide [Spiriva with HandiHaler] 18 mcg Capsule, W/Inhalation Device 1 cap INHALATION DAILY Rx Instructions: puncture 1 cap using device; one dose = 2 inhalations fenofibrate 160 mg Tablet 160 mg PO BEDTIME budesonide-formoterol 160-4.5 mcg/actuation Hfa Aerosol Inhaler 2 puff INHALATION Q4H PRN (Reason: Wheezing) magnesium oxide 200 mg magnesium Tablet 200 mg PO BID albuterol sulfate 2.5 mg /3 mL (0.083 %) solution for nebulization 2.5 mg inhalation Q6H PRN (Reason: wheezing/cough) docusate sodium 100 mg Capsule 100 mg PO BID ipratropium-albuterol 0.5 mg-3 mg(2.5 mg base)/3 mL Solution For Nebulization 3 ml INHALATION Q4H PRN (Reason: COPD) polyethylene glycol 3350 [Miralax] 17 gram Powder In Packet 17 g PO DAILY insulin lispro 100 unit/mL Insulin Pen 6 unit SUBCUT AC bupropion HCl 100 mg tablet sustained-release 12 hr 100 mg PO BID Changed insulin glargine 100 unit/mL (3 mL) Insulin Pen 14 unit SUBCUT QPM Qty: 50 0RF Follow up/Referrals: Manish Vernon MD [Primary Care Provider] - Discharge Health Status Multidrug resistant organism: Other Precautions: Contact Diet/Activity/Treatments Diet: Carb-consistent/Diabetic Liquid consistency: Normal/Thin Food texture: Regular Special Rehabilitation Services Reason for rehabilitation: Recovery r/t decondition Rehab type: Physical therapy and Occupational therapy Visit Report/Discharge Packet Stand Alone Forms: Patient Portal/API Discharge Data Primary Care Provider: Manish Vernon VTE Deep Vein Thrombosis/Pulmonary Embolism Present on Admission: No
--- NOTE | 2024-03-06 11:10 | CM.DPC ---
DCP Discharge SNF Per MD, pt finished her final dose of IV-Abx this morning and medically stable to discharge back to SNF today and no identified barriers to discharge. ADY called [facility] admissions and confirmed they can accept pt back today and no PASRR needed since she is a return and they can transport at 1200 today. ABILIO Heide kindly sent d/c packet to [facility] to review. 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 Plan: Patient to d/c back to [facility] LTC today via facility van at 1200. [place]
--- NOTE | 2024-03-06 13:37 | PC.NURSE ---
Discharge orders received - called [facility] and gave report to Luna. Last dose of IV antibiotics given. Babcock removed, patient voided easily after Babcock removal. PICC line and tele d/c'ed prior to discharge. All belongings with patient. [place] folder with all paperwork including signed scripts given to [facility] transport. [employer] transport took patient via wheelchair.
== END 2024-03-06 12:15 | DRG 720 ==
LOC: ED 07:30 → AC 11:13 → ICU 11:21
PROVIDERS: Anesthesiology Critical Care Medicine; Family Medicine; Hospitalist; Admitting Provider Internal Medicine; Emergency Provider Emergency Medicine; PCP Student in an Organized Health Care Education/Training Program; Referring Provider Emergency Medicine; Visit Provider Internal Medicine
DX: A41.9 Sepsis, unspecified organism (principal); R65.21 Severe sepsis with septic shock; G93.41 Metabolic encephalopathy; J96.21 Acute and chronic respiratory failure with hypoxia; N17.9 Acute kidney failure, unspecified; N30.00 Acute cystitis without hematuria; B96.20 Unspecified Escherichia coli [E. coli] as the cause of diseases classified elsewhere; J96.22 Acute and chronic respiratory failure with hypercapnia; I48.0 Paroxysmal atrial fibrillation; I50.22 Chronic systolic (congestive) heart failure; E11.22 Type 2 diabetes mellitus with diabetic chronic kidney disease; I13.0 Hypertensive heart and chronic kidney disease with heart failure and stage 1 through stage 4 chronic kidney disease, or unspecified chronic kidney disease; N18.9 Chronic kidney disease, unspecified; E03.9 Hypothyroidism, unspecified; J44.1 Chronic obstructive pulmonary disease with (acute) exacerbation; E11.649 Type 2 diabetes mellitus with hypoglycemia without coma; E66.01 Morbid (severe) obesity due to excess calories; F32.A Depression, unspecified; G47.33 Obstructive sleep apnea (adult) (pediatric); Z99.81 Dependence on supplemental oxygen; Z79.01 Long term (current) use of anticoagulants; Z87.891 Personal history of nicotine dependence; Z87.440 Personal history of urinary (tract) infections; Z79.4 Long term (current) use of insulin; Z79.85 Long-term (current) use of injectable non-insulin antidiabetic drugs; Z68.41 Body mass index [BMI] 40.0-44.9, adult
CPT/HCPCS: 36592; 36600; 71045; 80048; 80053; 81001; 82140; 82550; 82805; 82962; 83605; 83690; 83735; 83880; 84145; 84443; 84484; 85025; 87040; 87077; 87086; 87186; 87633; 87797; 93005; 93010; 93306; 94640; 94660; 94760; 94762; 96365; 96367; 96375; 99285; 99291; J0282; J0696; J0780; J1160; J1335; J1642; J1650; J1720; J1815; J1940; J2185; J2405; J2470; J2919; J7613; P9041; Q9957

== ENCOUNTER 2024-03-08 13:56 | Inpatient (IN) | payer OTHER, SELFPAY ==
[2023-07-02 15:36] VITALS: RESP 0
[2024-02-28 12:34] VITALS: BMI 44.9
[2024-03-06 06:02] VITALS: PULSE 72; RESP 22; O2SAT 93
[2024-03-08] VITALS (36 sets, daily range): BP systolic 89–145; BP diastolic 50–85; PULSE 45–76; RESP 16–33; TEMP 36.7; O2SAT 84–96; BMI 54.1
--- NOTE | 2024-03-08 14:00 | DI.RAD.S_ITS ---
PROCEDURE: XR CHEST 1V INDICATIONS: chest pain TECHNIQUE: One view of the chest was acquired. COMPARISON: [facility], CT, CT CHEST WO CON, 01/14/2024, 3:23. [facility], CR, XR CHEST FOR PICC 1V, 02/28/2024, 12:50. FINDINGS: Surgical changes and devices: None. Lungs and pleura: Moderate left pleural effusion with left basilar atelectasis. Mediastinum: Mediastinal contours appear normal. Epidural lipomatosis results in increased transverse diameter of the superior mediastinum. Heart size is normal. Bones and chest wall: No suspicious bony lesions. Overlying soft tissues appear unremarkable. IMPRESSION: Moderate left pleural effusion with compressive left basilar atelectasis. Dictated by: Hadley Brunner M.D. on 03/08/2024 at 14:19 Approved by: Hadley Brunner M.D. on 03/08/2024 at 14:20
--- NOTE | 2024-03-08 14:00 | EKG_ITS ---
[facility] [id number] [place] [id number] Test Date: 2024-03-08 Pat Name: Mary Carmen Jett Department: Room: Gender: Female Senior Examiner: MIRIAM : 1960 Requested By: Order Number: [id number] Reading MD: Ramon Howard Measurements Intervals [place] Rate: 80 P: RI: 146 QRS: -71 QRSD: 134 T: 61 QT: 428 QTc: 493 Interpretive Statements Sinus rhythm with premature supraventricular complexes and with frequent premature ventricular complexes Left axis deviation Nonspecific intraventricular block Electronically Signed On 03-08-2024 18:53:18 PST by Ramon Howard
[2024-03-08 14:58] LABS: Base Excess VBG 6.6 mmol/L (0-4); HCO3 VBG 35 mmol/L (24-28); Oxygen Saturation VBG 58 % (70-75); PCO2 VBG 70.1 mmHg (45-50); PO2 VBG 34 mmHg (35-45); Total CO2 VBG 35 mmol/L (24-29); pH VBG 7.31 (7.33-7.43)
[2024-03-08 15:12] LABS: Add Manual Diff / Slide Review NO; Basophils Absolute Auto 100 /uL (0-100); Basophils Percent Auto 0.6 % (0-2); Eosinophils Absolute Auto 0 /uL (0-450); Eosinophils Percent Auto 0.2 % (2-4); Hematocrit 40.4 % (36-46); Hemoglobin 12.6 g/dL (12.0-16.0); Lymphocytes Absolute Auto 800 /uL (1100-4500); Mean Corpuscular HGB Conc 31.1 % (30-36); Mean Corpuscular Hemoglobin 32.8 PG (26-34); Mean Corpuscular Volume 105.3 fL (80-100); Monocytes Absolute Auto 500 /uL (0-900); Monocytes Percent Auto 4.8 % (3-14); Neutrophils Absolute Auto 8400 /uL (1500-7000); Neutrophils Percent Auto 86.4 % (50-75); Platelet Count 212 X10^3/uL (150-400); Red Blood Cell Count 3.84 X10^6/uL (4.0-5.2); Red Cell Distribution Width 18.3 % (11.6-14.8); White Blood Cell Count 9.7 X10^3/uL (4.5-11.0)
--- NOTE | 2024-03-08 15:24 | ED_ITS ---
HPI - General Adult General Chief complaint: Shortness of Breath/Dyspnea Stated complaint: difficult to arouse Time Seen by Provider: 03/08/24 13:56 Mode of arrival: EMS History of Present Illness HPI narrative: 63-year-old female with history of COPD, prior episodes hypercarbia, prescribed BiPAP for sleep with variable compliance, noted to be confused at her nursing care facility. Transport by EMS on BiPAP, more arousable during transport. Denied recent chest pain, fevers, cough, abdominal pain, flank pain, pain on urination. No fall, injury, trauma known. No focal weakness or numbness to face arm leg. Related Data Home Medications Medication Instructions Recorded Confirmed acetaminophen 325 mg tablet 650 mg PO TID 05/25/22 02/28/24 (Tylenol) budesonide-formoterol HFA 160 2 puff inhalation Q4H PRN Wheezing 05/25/22 02/28/24 mcg-4.5 mcg/actuation aerosol inhaler cyanocobalamin (vitamin B-12) 500 500 mcg PO DAILY 05/25/22 02/28/24 mcg tablet fenofibrate 160 mg tablet 160 mg PO BEDTIME 05/25/22 02/28/24 fluoxetine 20 mg tablet 20 mg PO DAILY 05/25/22 02/28/24 fluticasone propionate 50 2 spray intranasal DAILY 05/25/22 02/28/24 mcg/actuation nasal spray,suspension gabapentin 300 mg capsule 300 mg PO BEDTIME 05/25/22 02/28/24 insulin lispro 100 unit/mL See Protocol SUBCUT TIDWM 05/25/22 02/28/24 subcutaneous solution (Humalog U-100 Insulin) loratadine 10 mg tablet 10 mg PO DAILY 05/25/22 02/28/24 magnesium oxide 200 mg PO BID 05/25/22 02/28/24 montelukast 10 mg tablet 10 mg PO DAILY 05/25/22 02/28/24 ondansetron 4 mg disintegrating 4 mg PO Q8H PRN Nausea 05/25/22 02/28/24 tablet rosuvastatin 40 mg tablet 40 mg PO DAILY 05/25/22 02/28/24 sennosides 8.6 mg tablet (senna) 17.2 mg PO BEDTIME 05/25/22 02/28/24 tiotropium bromide 18 mcg capsule 1 cap inhalation DAILY 05/25/22 02/28/24 with inhalation device (Spiriva with HandiHaler) trazodone 50 mg tablet 50 mg PO BEDTIME 05/25/22 02/28/24 albuterol sulfate 90 mcg/actuation 4 puff inhalation Q4H PRN 08/15/22 02/28/24 aerosol inhaler Shortness Of Breath Or Wheezing levothyroxine 175 mcg tablet 175 mcg PO DAILY 08/15/22 02/28/24 potassium chloride 10 mEq 20 meq PO DAILY 08/15/22 02/28/24 tablet,extended release torsemide 10 mg tablet 30 mg PO BEDTIME 05/20/23 02/28/24 albuterol sulfate 2.5 mg/3 mL 2.5 mg inhalation Q6H PRN 10/24/23 02/28/24 (0.083 %) solution for nebulization wheezing/cough docusate sodium 100 mg capsule 100 mg PO BID Constipation 10/24/23 02/28/24 insulin lispro 100 unit/mL 6 unit SUBCUT AC 10/24/23 02/28/24 subcutaneous pen ipratropium 0.5 mg-albuterol 3 mg 3 ml inhalation Q4H PRN COPD 10/24/23 02/28/24 (2.5 mg base)/3 mL nebulization soln polyethylene glycol 3350 17 gram 17 g PO DAILY 10/24/23 02/28/24 oral powder packet (Miralax) bupropion HCl 100 mg tablet,12 hr 100 mg PO BID 10/31/23 02/28/24 sustained-release apixaban 5 mg tablet 5 mg PO BID 02/28/24 02/28/24 empagliflozin 10 mg tablet 10 mg PO DAILY 02/28/24 02/28/24 (Jardiance) insulin glargine 100 unit/mL (3 22 unit SUBCUT QAM 02/28/24 02/28/24 mL) subcutaneous pen liraglutide 0.6 mg/0.1 mL (18 mg/3 1.2 mg SUBCUT DAILY 02/28/24 02/28/24 mL) subcutaneous pen injector metoprolol succinate 25 mg 25 mg PO BID 02/28/24 02/28/24 tablet,extended release 24 hr prednisone 10 mg tablet 12.5 mg PO DAILY 02/28/24 02/28/24 Previous Rx's Medication Instructions Recorded insulin glargine 100 unit/mL (3 14 unit (0.14 mL) SUBCUT QPM #50 mL 03/06/24 mL) subcutaneous pen Allergies Allergy/AdvReac Type Severity Reaction Status Date / Time No Known Drug Allergies Allergy Verified 03/08/24 14:04 Patient History Medical History Chronic hypercapnic respiratory failure PONCE (obstructive sleep apnea) Chronic hypoxemic respiratory failure COPD (chronic obstructive pulmonary disease) DM2 (diabetes mellitus, type 2) HTN (hypertension) Thyroiditis Systolic and diastolic CHF, chronic Obesity Surgical History S/P hernia surgery Family History Mother No pertinent past medical history Father No pertinent past medical history Social History household members: other Smoking Status: Former smoker alcohol intake: former Smoking Status: Former smoker alcohol intake frequency: other Exam Narrative Exam Narrative: GENERAL: Well-developed patient, in mild distress. HEAD: Atraumatic. Normocephalic. EYES: Pupils equal round and reactive. Extraocular motions intact. No scleral icterus. No injection or drainage. ENT: Nose without bleeding, purulent drainage. Throat without erythema, tonsillar hypertrophy or exudate. Airway patent. NECK: Trachea midline. Non tender CARDIOVASCULAR: Regular rate and rhythm without murmurs, gallops, or rubs. RESPIRATORY: Clear to auscultation. Breath sounds equal bilaterally. No wheezes, rales, or rhonchi. GASTROINTESTINAL: Abdomen soft, non-tender, nondistended. EXTREMITIES: No edema or joint tenderness. BACK: Nontender without deformity or crepitance. No flank tenderness. NEURO: AOx3. Motor functions grossly nonfocal SKIN: No rash or erythema of visible areas Initial Vital Signs Initial Vital Signs: Vital Signs Temperature 98.1 F 03/08/24 14:00 Pulse Rate 63 03/08/24 14:00 Respiratory Rate 26 H 03/08/24 14:00 Blood Pressure 109/57 L 03/08/24 14:00 Pulse Oximetry 94 03/08/24 14:00 Oxygen Delivery Method Room Air 03/08/24 14:00 Course Orders Ordered: ED Orders 03/08/24 13:56 ABG [Arterial Blood Gas] STAT 03/08/24 14:00 XR chest 1V Stat Urinalysis and Microscopic Stat EKG-12 Lead Stat 03/08/24 14:11 ABG [Arterial Blood Gas] STAT 03/08/24 14:55 Venous Blood Gas Routine 03/08/24 14:56 Complete Blood Count AUTO DIFF Stat Comprehensive Metabolic Panel Stat Lactate (Lactic Acid) Stat Lipase Stat Troponin & CK Cardiac Panel Stat 03/08/24 15:46 Venous Blood Gas STAT 03/08/24 16:10 Venous Blood Gas Routine 03/08/24 16:24 BiPAP Ventilatory Support RT PROTOCOL Albuterol (Albuterol 2.5 Mg/3 Ml Neb (Adult)) 2.5 mg INH [id number] PRN PRN Reason: Shortness Of Breath Albuterol/Ipratropium (Albuterol/Ipratropium 3 Ml Ampul) 3 ml INH [id number] JAY JAY Budesonide (Budesonide 0.5 Mg/2 Ml Neb) 0.5 mg INH RTBID JAY JAY Enoxaparin Sodium (Enoxaparin 40 Mg/0.4 Ml Syringe) 40 mg SUBCUT BID JAY JAY Dextrose/Sodium Chloride (Dextrose 5%-0.9% Ns) 1,000 mls @ 50 mls/hr IV CONT JAY JAY Last Admin: 03/08/24 19:00 Dose: Not Given Documented By: MP Dextrose ([id number]) 100 mls @ 999 mls/hr IV PRN PRN PRN Reason: Hypoglycemia Insulin Human Lispro (Insulin Lispro 100 Unit/Ml 3ml Vial) 0 unit SUBCUT ACHS JAY JAY; Protocol Naloxone HCl (Naloxone 0.4 Mg/Ml Vial) 0.2 mg IV Q2MIN PRN PRN Reason: Opiate Reversal Vital Signs Vital signs: Vital Signs - 8 hr 03/08/24 14:00 03/08/24 14:02 03/08/24 14:04 Temperature 98.1 F Pulse Rate 63 65 66 Respiratory Rate 26 H Blood Pressure 109/57 L Pulse Oximetry 94 94 93 Oxygen Delivery Method Room Air Oxygen Flow Rate Fraction of Inspired Oxygen 03/08/24 14:04 03/08/24 14:30 03/08/24 15:00 Temperature Pulse Rate 70 76 Respiratory Rate 28 H 29 H Blood Pressure 109/57 L Pulse Oximetry 93 91 Oxygen Delivery Method Nasal Cannula Oxygen Flow Rate 2 Fraction of Inspired Oxygen 03/08/24 15:26 03/08/24 15:26 03/08/24 15:30 Temperature Pulse Rate 71 Respiratory Rate 32 H Blood Pressure 145/85 H 131/58 L Pulse Oximetry 92 Oxygen Delivery Method Nasal Cannula Oxygen Flow Rate 2 Fraction of Inspired Oxygen 03/08/24 15:30 03/08/24 16:00 03/08/24 16:30 Temperature Pulse Rate 71 71 69 Respiratory Rate 30 H 26 H 24 Blood Pressure Pulse Oximetry 93 92 91 Oxygen Delivery Method Oxygen Flow Rate Fraction of Inspired Oxygen 03/08/24 16:45 03/08/24 17:00 03/08/24 17:00 Temperature Pulse Rate 66 Respiratory Rate 21 Blood Pressure 89/50 L Pulse Oximetry 96 Oxygen Delivery Method BiPAP Oxygen Flow Rate Fraction of Inspired Oxygen 40 03/08/24 17:02 03/08/24 17:02 03/08/24 17:08 Temperature Pulse Rate 68 Respiratory Rate 17 Blood Pressure 99/58 L 99/56 L Pulse Oximetry 95 Oxygen Delivery Method BiPAP Oxygen Flow Rate Fraction of Inspired Oxygen 03/08/24 17:08 03/08/24 17:10 03/08/24 17:10 Temperature Pulse Rate 66 72 Respiratory Rate 22 21 Blood Pressure 102/55 L Pulse Oximetry 94 94 Oxygen Delivery Method BiPAP Oxygen Flow Rate Fraction of Inspired Oxygen Medical Decision Making Lab Data Lab results reviewed: Yes I reviewed the patient's lab results. Lab results narrative: White blood cell count 9700, hemoglobin 12.6, platelets [id number], serum CO2 45 markedly elevated. BUN 61 with creatinine 1.15, glucose 125. Sodium 143, potassium 4.6. Initial venous blood gas with pH 7.31, pCO2 70, PaO2 34. Repeat blood gas venous shows pH 7.377, pCO2 86, PaO2 48. Increasing hypercarbia on nasal canula oxygen while awake. RT consult to initiate BiPAP, consider admission, will contact hospitalist 1700, case discussed with hospitalist Dr. Howard, accepts patient for admission to ICU on BiPAP 03/08/24 14:56 03/08/24 14:56 Labs: Lab Results 03/08/24 03/08/24 03/08/24 Range/Units 14:55 14:56 16:10 WBC 9.7 (4.5-11.0) X10^3/uL RBC 3.84 L (4.0-5.2) X10^6/uL Hgb 12.6 (12.0-16.0) g/dL Hct 40.4 (36-46) % MCV 105.3 H (80-100) fL MCH 32.8 (26-34) PG MCHC 31.1 (30-36) % RDW 18.3 H (11.6-14.8) % Plt Count 212 (150-400) X10^3/uL Neut % (Auto) 86.4 H (50-75) % Lymph % (Auto) 8.0 L (25-40) % [place] % (Auto) 4.8 (3-14) % Eos % (Auto) 0.2 L (2-4) % Baso % (Auto) 0.6 (0-2) % Neut # (Auto) 8400 H (5330-8573) /uL Lymph # (Auto) 800 L (9537-5624) /uL [place] # (Auto) 500 (0-900) /uL Eos # (Auto) 0 (0-450) /uL Baso # (Auto) 100 (0-100) /uL VBG pH 7.31 L 7.38 (7.33-7.43) VBG pCO2 70.1 H (45-50) mmHg VBG pO2 34 L (35-45) mmHg VBG HCO3 35 H (24-28) mmol/L VBG Total CO2 35 H (24-29) mmol/L VBG O2 Saturation 58 L (70-75) % VBG Base Excess 6.6 H (0-4) mmol/L FiO2 % % Sodium 143 (137-145) mmol/L Potassium 4.6 (3.4-5.1) mmol/L Chloride 95 L (98-107) mmol/L Carbon Dioxide 45 H* (22-32) mmol/L BUN 61 H (7-17) mg/dL Creatinine 1.15 H (0.52-1.04) mg/dL Estimated GFR 54 L (>60) mL/min BUN/Creatinine Ratio 53.0 H (6-22) Glucose 125 H (80-110) mg/dL Lactate 1.0 (0.7-2.1) mmol/L Calcium 10.1 (8.4-10.2) mg/dL Total Bilirubin 0.6 (0.2-1.3) mg/dL AST 28 (14-36) IU/L ALT 37 H (<35) IU/L Alkaline Phosphatase 51 (38-126) U/L Total Creatine Kinase 51 (30-135) U/L Troponin I 0.087 H (0.01-0.034) ng/mL Total Protein 6.5 (6.3-8.2) g/dL Albumin 3.6 (3.5-5.0) g/dL Globulin 2.9 (1.7-4.1) g/dL Albumin/Globulin Ratio 1.2 (1.0-2.8) Lipase 61 D (23-300) U/L 03/08/24 03/08/24 03/08/24 Range/Units 16:10 16:10 16:10 WBC (4.5-11.0) X10^3/uL RBC (4.0-5.2) X10^6/uL Hgb (12.0-16.0) g/dL Hct (36-46) % MCV (80-100) fL MCH (26-34) PG MCHC (30-36) % RDW (11.6-14.8) % Plt Count (150-400) X10^3/uL Neut % (Auto) (50-75) % Lymph % (Auto) (25-40) % [place] % (Auto) (3-14) % Eos % (Auto) (2-4) % Baso % (Auto) (0-2) % Neut # (Auto) (4594-7970) /uL Lymph # (Auto) (0766-9131) /uL [place] # (Auto) (0-900) /uL Eos # (Auto) (0-450) /uL Baso # (Auto) (0-100) /uL VBG pH Cancelled (7.33-7.43) VBG pCO2 > 86.0 H Cancelled (45-50) mmHg VBG pO2 48 H Cancelled (35-45) mmHg VBG HCO3 51 H (24-28) mmol/L VBG Total CO2 (24-29) mmol/L VBG O2 Saturation (70-75) % VBG Base Excess (0-4) mmol/L FiO2 % % Sodium (137-145) mmol/L Potassium (3.4-5.1) mmol/L Chloride (98-107) mmol/L Carbon Dioxide (22-32) mmol/L BUN (7-17) mg/dL Creatinine (0.52-1.04) mg/dL Estimated GFR (>60) mL/min BUN/Creatinine Ratio (6-22) Glucose (80-110) mg/dL Lactate (0.7-2.1) mmol/L Calcium (8.4-10.2) mg/dL Total Bilirubin (0.2-1.3) mg/dL AST (14-36) IU/L ALT (<35) IU/L Alkaline Phosphatase (38-126) U/L Total Creatine Kinase (30-135) U/L Troponin I (0.01-0.034) ng/mL Total Protein (6.3-8.2) g/dL Albumin (3.5-5.0) g/dL Globulin (1.7-4.1) g/dL Albumin/Globulin Ratio (1.0-2.8) Lipase (23-300) U/L 03/08/24 03/08/24 03/08/24 Range/Units 16:10 16:10 16:10 WBC (4.5-11.0) X10^3/uL RBC (4.0-5.2) X10^6/uL Hgb (12.0-16.0) g/dL Hct (36-46) % MCV (80-100) fL MCH (26-34) PG MCHC (30-36) % RDW (11.6-14.8) % Plt Count (150-400) X10^3/uL Neut % (Auto) (50-75) % Lymph % (Auto) (25-40) % [place] % (Auto) (3-14) % Eos % (Auto) (2-4) % Baso % (Auto) (0-2) % Neut # (Auto) (4759-1995) /uL Lymph # (Auto) (2097-9282) /uL [place] # (Auto) (0-900) /uL Eos # (Auto) (0-450) /uL Baso # (Auto) (0-100) /uL VBG pH (7.33-7.43) VBG pCO2 (45-50) mmHg VBG pO2 (35-45) mmHg VBG HCO3 Cancelled (24-28) mmol/L VBG Total CO2 50 H Cancelled (24-29) mmol/L VBG O2 Saturation 79 H Cancelled (70-75) % VBG Base Excess 20.7 H (0-4) mmol/L FiO2 % % Sodium (137-145) mmol/L Potassium (3.4-5.1) mmol/L Chloride (98-107) mmol/L Carbon Dioxide (22-32) mmol/L BUN (7-17) mg/dL Creatinine (0.52-1.04) mg/dL Estimated GFR (>60) mL/min BUN/Creatinine Ratio (6-22) Glucose (80-110) mg/dL Lactate (0.7-2.1) mmol/L Calcium (8.4-10.2) mg/dL Total Bilirubin (0.2-1.3) mg/dL AST (14-36) IU/L ALT (<35) IU/L Alkaline Phosphatase (38-126) U/L Total Creatine Kinase (30-135) U/L Troponin I (0.01-0.034) ng/mL Total Protein (6.3-8.2) g/dL Albumin (3.5-5.0) g/dL Globulin (1.7-4.1) g/dL Albumin/Globulin Ratio (1.0-2.8) Lipase (23-300) U/L 03/08/24 03/08/24 Range/Units 16:10 16:10 WBC (4.5-11.0) X10^3/uL RBC (4.0-5.2) X10^6/uL Hgb (12.0-16.0) g/dL Hct (36-46) % MCV (80-100) fL MCH (26-34) PG MCHC (30-36) % RDW (11.6-14.8) % Plt Count (150-400) X10^3/uL Neut % (Auto) (50-75) % Lymph % (Auto) (25-40) % [place] % (Auto) (3-14) % Eos % (Auto) (2-4) % Baso % (Auto) (0-2) % Neut # (Auto) (7495-1348) /uL Lymph # (Auto) (7586-8819) /uL [place] # (Auto) (0-900) /uL Eos # (Auto) (0-450) /uL Baso # (Auto) (0-100) /uL VBG pH (7.33-7.43) VBG pCO2 (45-50) mmHg VBG pO2 (35-45) mmHg VBG HCO3 (24-28) mmol/L VBG Total CO2 (24-29) mmol/L VBG O2 Saturation (70-75) % VBG Base Excess Cancelled (0-4) mmol/L FiO2 % 24 % Cancelled % Sodium (137-145) mmol/L Potassium (3.4-5.1) mmol/L Chloride (98-107) mmol/L Carbon Dioxide (22-32) mmol/L BUN (7-17) mg/dL Creatinine (0.52-1.04) mg/dL Estimated GFR (>60) mL/min BUN/Creatinine Ratio (6-22) Glucose (80-110) mg/dL Lactate (0.7-2.1) mmol/L Calcium (8.4-10.2) mg/dL Total Bilirubin (0.2-1.3) mg/dL AST (14-36) IU/L ALT (<35) IU/L Alkaline Phosphatase (38-126) U/L Total Creatine Kinase (30-135) U/L Troponin I (0.01-0.034) ng/mL Total Protein (6.3-8.2) g/dL Albumin (3.5-5.0) g/dL Globulin (1.7-4.1) g/dL Albumin/Globulin Ratio (1.0-2.8) Lipase (23-300) U/L Point of Care Testing Glucose POC 102 Point of care testing: Point of Care Testing Glucose POC 102 ECG Data Attestation: I personally reviewed and interpreted this ECG as follows: Interpretation: Normal sinus rhythm with rate of 80, no ST segment elevation or depression changes. PVCs frequently noted. Nonspecific intraventricular block. MI 146, QRS 134, QTC 493. Discharge Plan Departure Patient Disposition: Admitted As Inpatient Clinical Impression: Hypercapnic respiratory failure Admit Date/Time: 03/08/24 17:17 Admit Provider: Ramon Howard
[2024-03-08 15:26] LABS: Alanine Aminotransferase 37 IU/L (<35); Albumin 3.6 g/dL (3.5-5.0); Albumin Globulin Ratio 1.2 (1.0-2.8); Alkaline Phosphatase 51 U/L (38-126); Aspartate Aminotransferase 28 IU/L (14-36); Bilirubin Total 0.6 mg/dL (0.2-1.3); Blood Urea Nitrogen 61 mg/dL (7-17); Calcium 10.1 mg/dL (8.4-10.2); Chloride 95 mmol/L (98-107); Creatine Kinase 51 U/L (30-135); Estimated Glomerular Filt Rate 54 mL/min (>60); Globulin 2.9 g/dL (1.7-4.1); Glucose 125 mg/dL (80-110); Lipase 61 U/L (23-300); Potassium 4.6 mmol/L (3.4-5.1); Sodium 143 mmol/L (137-145); Total Protein 6.5 g/dL (6.3-8.2)
[2024-03-08 15:38] LABS: Troponin I 0.087 ng/mL (0.01-0.034)
[2024-03-08 15:42] LABS: HEMOLYSIS 22 (0-50)
[2024-03-08 15:54] LABS: Carbon Dioxide 45 mmol/L (22-32)
[2024-03-08 16:14] LABS: Base Excess VBG 20.7 mmol/L (0-4); HCO3 VBG 51 mmol/L (24-28); Oxygen Saturation VBG 79 % (70-75); PO2 VBG 48 mmHg (35-45); Total CO2 VBG 50 mmol/L (24-29); pH VBG 7.38 (7.33-7.43)
--- NOTE | 2024-03-08 17:18 | PM.HP.1 ---
History of Present Illness History of Present Illness Date Patient Seen: 03/08/24 Chief complaint: difficult to arouse Narrative: The patient was a 62-year-old female just discharged 2 days ago from the hospital. She has a history of DM 2, COPD and chronic respiratory failure, systolic heart failure with an EF of 25%, morbid obesity, PONCE, hypertension, hypothyroidism, recurrent UTI, and recurrent admissions for hypercapnia relating to difficulties with BiPAP at her facility. The patient was admitted for hypercapnic failure and improved. She was discharged on the in his now back with recurrent altered mental status and evidence of hypercarbia. She did have recent cultures that were positive for ESBL in her urine. She completed a 7 day course of ertapenem on March 06. She arrived to the unit awake and drinking water. She states that she has problems keeping her [facility]AP [facility] the [facility]. She can not really remember what exactly happened leading to her taking it off. She really has no memory of the entire day. She can not remember if she ate breakfast, or lunch. She denies any new symptoms including chest pain, or any pain. She was now much less confused having been on BiPAP for the last couple of hours in the ED. [facility] Medical History Chronic hypercapnic respiratory failure PONCE (obstructive sleep apnea) Chronic hypoxemic respiratory failure COPD (chronic obstructive pulmonary disease) DM2 (diabetes mellitus, type 2) HTN (hypertension) Thyroiditis Systolic and diastolic CHF, chronic Obesity Surgical History S/P hernia surgery Family History Mother No pertinent past medical history Father No pertinent past medical history Social History household members: other Smoking Status: Former smoker alcohol intake: former Meds Home Medications and Allergies Home Medications Medication Instructions Recorded Confirmed Type acetaminophen 325 mg tablet 650 mg PO TID 05/25/22 02/28/24 History (Tylenol) budesonide-formoterol HFA 160 2 puff inhalation Q4H PRN Wheezing 05/25/22 02/28/24 History mcg-4.5 mcg/actuation aerosol inhaler cyanocobalamin (vitamin B-12) 500 500 mcg PO DAILY 05/25/22 02/28/24 History mcg tablet fenofibrate 160 mg tablet 160 mg PO BEDTIME 05/25/22 02/28/24 History fluoxetine 20 mg tablet 20 mg PO DAILY 05/25/22 02/28/24 History fluticasone propionate 50 2 spray intranasal DAILY 05/25/22 02/28/24 History mcg/actuation nasal spray,suspension gabapentin 300 mg capsule 300 mg PO BEDTIME 05/25/22 02/28/24 History insulin lispro 100 unit/mL See Protocol SUBCUT TIDWM 05/25/22 02/28/24 History subcutaneous solution (Humalog U-100 Insulin) loratadine 10 mg tablet 10 mg PO DAILY 05/25/22 02/28/24 History magnesium oxide 200 mg PO BID 05/25/22 02/28/24 History montelukast 10 mg tablet 10 mg PO DAILY 05/25/22 02/28/24 History ondansetron 4 mg disintegrating 4 mg PO Q8H PRN Nausea 05/25/22 02/28/24 History tablet rosuvastatin 40 mg tablet 40 mg PO DAILY 05/25/22 02/28/24 History sennosides 8.6 mg tablet (senna) 17.2 mg PO BEDTIME 05/25/22 02/28/24 History tiotropium bromide 18 mcg capsule 1 cap inhalation DAILY 05/25/22 02/28/24 History with inhalation device (Spiriva with HandiHaler) trazodone 50 mg tablet 50 mg PO BEDTIME 05/25/22 02/28/24 History albuterol sulfate 90 mcg/actuation 4 puff inhalation Q4H PRN 08/15/22 02/28/24 History aerosol inhaler Shortness Of Breath Or Wheezing levothyroxine 175 mcg tablet 175 mcg PO DAILY 08/15/22 02/28/24 History potassium chloride 10 mEq 20 meq PO DAILY 08/15/22 02/28/24 History tablet,extended release torsemide 10 mg tablet 30 mg PO BEDTIME 05/20/23 02/28/24 History albuterol sulfate 2.5 mg/3 mL 2.5 mg inhalation Q6H PRN 10/24/23 02/28/24 History (0.083 %) solution for nebulization wheezing/cough docusate sodium 100 mg capsule 100 mg PO BID Constipation 10/24/23 02/28/24 History insulin lispro 100 unit/mL 6 unit SUBCUT AC 10/24/23 02/28/24 History subcutaneous pen ipratropium 0.5 mg-albuterol 3 mg 3 ml inhalation Q4H PRN COPD 10/24/23 02/28/24 History (2.5 mg base)/3 mL nebulization soln polyethylene glycol 3350 17 gram 17 g PO DAILY 10/24/23 02/28/24 History oral powder packet (Miralax) bupropion HCl 100 mg tablet,12 hr 100 mg PO BID 10/31/23 02/28/24 History sustained-release apixaban 5 mg tablet 5 mg PO BID 02/28/24 02/28/24 History empagliflozin 10 mg tablet 10 mg PO DAILY 02/28/24 02/28/24 History (Jardiance) insulin glargine 100 unit/mL (3 22 unit SUBCUT QAM 02/28/24 02/28/24 History mL) subcutaneous pen liraglutide 0.6 mg/0.1 mL (18 mg/3 1.2 mg SUBCUT DAILY 02/28/24 02/28/24 History mL) subcutaneous pen injector metoprolol succinate 25 mg 25 mg PO BID 02/28/24 02/28/24 History tablet,extended release 24 hr prednisone 10 mg tablet 12.5 mg PO DAILY 02/28/24 02/28/24 History insulin glargine 100 unit/mL (3 14 unit (0.14 mL) SUBCUT QPM #50 mL 03/06/24 Rx mL) subcutaneous pen Allergies Allergy/AdvReac Type Severity Reaction Status Date / Time No Known Drug Allergies Allergy Verified 03/08/24 14:04 Review of Systems Review of Systems Narrative: ROS not obtainable due to mental status. Exam Vital Signs (past 8 hours): - 03/08/24 14:00 03/08/24 14:02 03/08/24 14:04 Temperature 98.1 F Pulse Rate 63 65 66 Respiratory Rate 26 H Blood Pressure 109/57 L Pulse Oximetry 94 94 93 Oxygen Delivery Method Room Air Oxygen Flow Rate Fraction of Inspired Oxygen 03/08/24 14:04 03/08/24 14:30 03/08/24 15:00 Temperature Pulse Rate 70 76 Respiratory Rate 28 H 29 H Blood Pressure 109/57 L Pulse Oximetry 93 91 Oxygen Delivery Method Nasal Cannula Oxygen Flow Rate 2 Fraction of Inspired Oxygen 03/08/24 15:26 03/08/24 15:26 03/08/24 15:30 Temperature Pulse Rate 71 Respiratory Rate 32 H Blood Pressure 145/85 H 131/58 L Pulse Oximetry 92 Oxygen Delivery Method Nasal Cannula Oxygen Flow Rate 2 Fraction of Inspired Oxygen 03/08/24 15:30 03/08/24 16:00 03/08/24 16:30 Temperature Pulse Rate 71 71 69 Respiratory Rate 30 H 26 H 24 Blood Pressure Pulse Oximetry 93 92 91 Oxygen Delivery Method Oxygen Flow Rate Fraction of Inspired Oxygen 03/08/24 16:45 03/08/24 17:00 03/08/24 17:00 Temperature Pulse Rate 66 Respiratory Rate 21 Blood Pressure 89/50 L Pulse Oximetry 96 Oxygen Delivery Method BiPAP Oxygen Flow Rate Fraction of Inspired Oxygen 40 03/08/24 17:02 03/08/24 17:02 Temperature Pulse Rate 68 Respiratory Rate 17 Blood Pressure 99/58 L Pulse Oximetry 95 Oxygen Delivery Method BiPAP Oxygen Flow Rate Fraction of Inspired Oxygen Fraction of Inspired Oxygen 40 Oxygen Delivery Method BiPAP Oxygen Flow Rate 2 Narrative Exam Narrative: NAD, alert and oriented, fluent speech, calm. Morbidly obese. Her sentences are coherent and make sense. Normocephalic skull, EOMI, anicteric sclera, symmetric pupils. Oropharynx unremarkable, no droop. Neck supple, midline trachea, no adenopathy. Lungs clear, normal rate and effort. Heart regular, no murmur gallop or rub. Abdomen is soft, non distended and non tender. Extremities are free of edema. Skin is free of rash or lesions. Joints are not swollen or deformed. Judgment appears to be abnormal. Objective Imaging Chest x-ray: Radiologist's impression: Moderate left pleural effusion with compressive left basilar atelectasis. Labs 03/08/24 14:56 03/08/24 14:56 Labs: Laboratory Results - last 24 hr 03/08/24 03/08/24 03/08/24 14:55 14:56 16:10 WBC 9.7 RBC 3.84 L Hgb 12.6 Hct 40.4 MCV 105.3 H MCH 32.8 MCHC 31.1 RDW 18.3 H Plt Count 212 Neut % (Auto) 86.4 H Lymph % (Auto) 8.0 L Charles % (Auto) 4.8 Eos % (Auto) 0.2 L Baso % (Auto) 0.6 Neut # (Auto) 8400 H Lymph # (Auto) 800 L Charles # (Auto) 500 Eos # (Auto) 0 Baso # (Auto) 100 VBG pH 7.31 L 7.38 VBG pCO2 70.1 H VBG pO2 34 L VBG HCO3 35 H VBG Total CO2 35 H VBG O2 Saturation 58 L VBG Base Excess 6.6 H FiO2 % Sodium 143 Potassium 4.6 Chloride 95 L Carbon Dioxide 45 H* BUN 61 H Creatinine 1.15 H Estimated GFR 54 L BUN/Creatinine Ratio 53.0 H Glucose 125 H Lactate 1.0 Calcium 10.1 Total Bilirubin 0.6 AST 28 ALT 37 H Alkaline Phosphatase 51 Total Creatine Kinase 51 Troponin I 0.087 H Total Protein 6.5 Albumin 3.6 Globulin 2.9 Albumin/Globulin Ratio 1.2 Lipase 61 D 03/08/24 03/08/24 03/08/24 16:10 16:10 16:10 WBC RBC Hgb Hct MCV MCH MCHC RDW Plt Count Neut % (Auto) Lymph % (Auto) Charles % (Auto) Eos % (Auto) Baso % (Auto) Neut # (Auto) Lymph # (Auto) Charles # (Auto) Eos # (Auto) Baso # (Auto) VBG pH 7.38 VBG pCO2 VBG pO2 48 H 48 H VBG HCO3 51 H 51 H VBG Total CO2 50 H VBG O2 Saturation VBG Base Excess FiO2 % Sodium Potassium Chloride Carbon Dioxide BUN Creatinine Estimated GFR BUN/Creatinine Ratio Glucose Lactate Calcium Total Bilirubin AST ALT Alkaline Phosphatase Total Creatine Kinase Troponin I Total Protein Albumin Globulin Albumin/Globulin Ratio Lipase 03/08/24 03/08/24 03/08/24 16:10 16:10 16:10 WBC RBC Hgb Hct MCV MCH MCHC RDW Plt Count Neut % (Auto) Lymph % (Auto) Charles % (Auto) Eos % (Auto) Baso % (Auto) Neut # (Auto) Lymph # (Auto) Charles # (Auto) Eos # (Auto) Baso # (Auto) VBG pH VBG pCO2 VBG pO2 VBG HCO3 VBG Total CO2 50 H VBG O2 Saturation 79 H 79 H VBG Base Excess 20.7 H 20.7 H FiO2 % 24 % Sodium Potassium Chloride Carbon Dioxide BUN Creatinine Estimated GFR BUN/Creatinine Ratio Glucose Lactate Calcium Total Bilirubin AST ALT Alkaline Phosphatase Total Creatine Kinase Troponin I Total Protein Albumin Globulin Albumin/Globulin Ratio Lipase 03/08/24 16:10 WBC RBC Hgb Hct MCV MCH MCHC RDW Plt Count Neut % (Auto) Lymph % (Auto) Charles % (Auto) Eos % (Auto) Baso % (Auto) Neut # (Auto) Lymph # (Auto) Charles # (Auto) Eos # (Auto) Baso # (Auto) VBG pH VBG pCO2 VBG pO2 VBG HCO3 VBG Total CO2 VBG O2 Saturation VBG Base Excess FiO2 % 24 % Sodium Potassium Chloride Carbon Dioxide BUN Creatinine Estimated GFR BUN/Creatinine Ratio Glucose Lactate Calcium Total Bilirubin AST ALT Alkaline Phosphatase Total Creatine Kinase Troponin I Total Protein Albumin Globulin Albumin/Globulin Ratio Lipase Assessment & Plan Assessment & Plan narrative: 1. Acute hypercarbic and hypoxic respiratory failure, present on admission and active. 2. Acute metabolic encephalopathy, present on admission and active. 3. Recent ESBL UTI with septic shock with discharge on March 06, not present on admission are active. 4. PAF, present on admission and active. 5. COPD, present on admission and stable. 6. Chronic systolic heart failure, present on admission and active. 7. DM 2, present on admission and stable. 8. Chronic kidney disease with baseline creatinine 1.3, present on admission and active. 9. Hypothyroidism, present on admission and active. 10. Morbid obesity with BMI of 54, present on admission and active. Plan: -BiPAP and oxygen support overnight. Anticipate that she will be on BiPAP till tomorrow morning. We will follow her clinically. -will obtain blood cultures to rule out bacteremia and Re dip urine. -monitor fluid status with her IV fluids as she does have systolic heart failure. -correctional lispro for tonight. MYRIAM: 03/12 Based on previous records she was full code. DVT prophylaxis will be Lovenox until she was able to resume her apixaban. Her daughters are surrogate decision maker. Time-Based Coding :: 35 min spent with patient and on the chart (including review of chart, obtaining history, exam, reviewing outside data, placing orders, documenting exam and treatment plan, and counseling patient) on 03/08. Quality MIPS - Admit I confirm the patient?s Advance Care Plan is present, Code status is documented, Surrogate decision maker is in patient?s record [If Yes, STOP here]: Yes [facility] - Meds 'Current medications' to include all prescriptions, wzlo-inf-deogxrh products, herbals, cannabis/cannabidiol products, and vitamin/mineral/dietary (nutritional) supplements. I have utilized all available resources to obtain, update, or review the patient?s current medications. [If Yes, STOP here]: Yes
[2024-03-08 17:21] LABS: PCO2 VBG > 86.0 mmHg (45-50)
--- NOTE | 2024-03-08 18:48 | PC.ADMIT ---
[email or web address] Admission Note: Admitted from the ED via stretcher. On 3L NC, 94%. A/O x4. Patient unable to recall events leading up to ED admission, stating they are having difficulties keeping their BiPAP on at [facility] at [facility]. RT contacted for BiPAP setup and placement. The patient,Mary Carmen Jett,63 y/o, was given written information regarding hospital policies, unit procedures and contact persons. Patient's smoking status: Former smoker. Vital Signs - 8 hr 03/08/24 14:00 03/08/24 14:02 03/08/24 14:04 Temperature 98.1 F Pulse Rate 63 65 66 Respiratory Rate 26 H Blood Pressure 109/57 L Pulse Oximetry 94 94 93 Oxygen Delivery Method Room Air Oxygen Flow Rate Fraction of Inspired Oxygen 03/08/24 14:04 03/08/24 14:30 03/08/24 15:00 Temperature Pulse Rate 70 76 Respiratory Rate 28 H 29 H Blood Pressure 109/57 L Pulse Oximetry 93 91 Oxygen Delivery Method Nasal Cannula Oxygen Flow Rate 2 Fraction of Inspired Oxygen 03/08/24 15:26 03/08/24 15:26 03/08/24 15:30 Temperature Pulse Rate 71 Respiratory Rate 32 H Blood Pressure 145/85 H 131/58 L Pulse Oximetry 92 Oxygen Delivery Method Nasal Cannula Oxygen Flow Rate 2 Fraction of Inspired Oxygen 03/08/24 15:30 03/08/24 16:00 03/08/24 16:30 Temperature Pulse Rate 71 71 69 Respiratory Rate 30 H 26 H 24 Blood Pressure Pulse Oximetry 93 92 91 Oxygen Delivery Method Oxygen Flow Rate Fraction of Inspired Oxygen 03/08/24 16:45 03/08/24 17:00 03/08/24 17:00 Temperature Pulse Rate 66 Respiratory Rate 21 Blood Pressure 89/50 L Pulse Oximetry 96 Oxygen Delivery Method BiPAP Oxygen Flow Rate Fraction of Inspired Oxygen 40 03/08/24 17:02 03/08/24 17:02 03/08/24 17:08 Temperature Pulse Rate 68 Respiratory Rate 17 Blood Pressure 99/58 L 99/56 L Pulse Oximetry 95 Oxygen Delivery Method BiPAP Oxygen Flow Rate Fraction of Inspired Oxygen 03/08/24 17:08 03/08/24 17:10 03/08/24 17:10 Temperature Pulse Rate 66 72 Respiratory Rate 22 21 Blood Pressure 102/55 L Pulse Oximetry 94 94 Oxygen Delivery Method BiPAP Oxygen Flow Rate Fraction of Inspired Oxygen 03/08/24 17:20 03/08/24 17:20 03/08/24 17:30 Temperature Pulse Rate 72 69 Respiratory Rate 22 23 Blood Pressure 100/58 L Pulse Oximetry 94 94 Oxygen Delivery Method BiPAP Oxygen Flow Rate Fraction of Inspired Oxygen 03/08/24 17:30 03/08/24 17:34 03/08/24 17:34 Temperature Pulse Rate 75 Respiratory Rate 22 Blood Pressure 102/77 116/56 L Pulse Oximetry 96 Oxygen Delivery Method BiPAP Oxygen Flow Rate Fraction of Inspired Oxygen 03/08/24 17:40 03/08/24 17:40 03/08/24 17:50 Temperature Pulse Rate 66 72 Respiratory Rate 23 19 Blood Pressure 98/57 L Pulse Oximetry 95 95 Oxygen Delivery Method BiPAP BiPAP Oxygen Flow Rate Fraction of Inspired Oxygen 03/08/24 17:50 Temperature Pulse Rate Respiratory Rate Blood Pressure 103/58 L Pulse Oximetry Oxygen Delivery Method Oxygen Flow Rate Fraction of Inspired Oxygen
[2024-03-08] MEDS: ENOXAPARIN 40 MG/0.4 ML SYRINGE SUBCUT (22:00)
[2024-03-09] VITALS (61 sets, daily range): BP systolic 88–145; BP diastolic 50–103; PULSE 61–155; RESP 5–40; TEMP 31–36.7; O2SAT 90–100
[2024-03-09] MEDS: BUDESONIDE 0.5 MG/2 ML NEB INH ×3 (01:09→18:43)
--- NOTE | 2024-03-09 03:38 | RT ---
pt did not receive first duoneb dose at 1999 medication was not varified until later pass time to pull medication. Pt is stable with just diminished bases with no respiratory distress
--- NOTE | 2024-03-09 07:50 | CM.DANOTE ---
Initial DCP Assessment Note Pt is a 63 yo female, resident at [facility], discharge from two days ago, readmits with altered mental status and evidence of hypercarbia. PMH includes CHF with EF 25%, DM 2, COPD, morbid obesity, PONCE, hypertension, hypothyroidism, recurrent UTI and chronic respiratory failure. PCP: Karin Payan ([facility]) Payer: Sunil/KYLE Reviewed chart, no changes since patient's last admission. Patient lives at [facility] and plans to return. Patient's DPOA is her daughter Roxy Donahue [phone] who lives in [place]. Staff at [facility] assist with all ADLs. Patient uses a Bipap Trilogy machine at [facility] and remains full code. CM team will plan to follow clinical course closely. Plan: Discharge back to [facility] is anticipated, intermediate teacher care resident, likely via facility van vs BLS. GA Vasquez Discharge Planning/Care Management CM Discharge Assessment Start: 03/09/24 07:47 Freq: Status: Active Protocol: Document 03/09/24 07:47 NEO (Rec: 03/09/24 07:49 NEO [id number]) Discharge Planning Assessment Assigned German Professor GA Rosa DPOA/Assigned Designee Name Roxy Galeas, daughter (Tarkio ) Contact Information [phone] Advance Directives? Yes: POLST Advance Directives on File Yes: POLST on file - Full code History Provided By Patient,Medical Record Has Patient been admitted in last 30 Yes days? Comment 02/27-03/06/2024 Prior Living Arrangements Skilled Nurse Facility Household Members other Type of transporation used prior to Relies on Others admit Facility Name Admitted From: [facility] Willing to Return to Facility? Yes Independent with ADL's No Is patient alert and oriented? Yes: With some cognitive decline Needs Assistance With Bathing,Grooming,Meal Prep, Toileting,Managing Medications ,Home Chores / Shopping DME Already Rented / Owned Hospital Bed,Wheelchair Comment Lives at [facility]. Full care and wheelchair dependent Patient/Family Preference Intermediate Facility Comment Will return to [facility], intermediate teacher care resident Discharge Plan Intermediate Facility Transportation Arrangement Facility vs BLS If patient plan is SNF: Has PASSR been No: PASRR not needed due to pt completed? being a intermediate teacher resident
[2024-03-09] MEDS: ALBUTEROL/IPRATROPIUM 3 ML AMPUL INH ×3 (08:15→18:43)
[2024-03-09] MEDS: ENOXAPARIN 40 MG/0.4 ML SYRINGE SUBCUT (08:47)
[2024-03-09 09:08] LABS: Add Manual Diff / Slide Review NO; Basophils Absolute Auto 100 /uL (0-100); Basophils Percent Auto 1.1 % (0-2); Eosinophils Absolute Auto 100 /uL (0-450); Eosinophils Percent Auto 0.8 % (2-4); Hematocrit 40.8 % (36-46); Hemoglobin 12.8 g/dL (12.0-16.0); Lymphocytes Absolute Auto 1300 /uL (1100-4500); Lymphocytes Percent Auto 16.2 % (25-40); Mean Corpuscular HGB Conc 31.4 % (30-36); Mean Corpuscular Hemoglobin 33.1 PG (26-34); Mean Corpuscular Volume 105.4 fL (80-100); Monocytes Absolute Auto 700 /uL (0-900); Monocytes Percent Auto 9.4 % (3-14); Neutrophils Absolute Auto 5800 /uL (1500-7000); Neutrophils Percent Auto 72.5 % (50-75); Platelet Count 203 X10^3/uL (150-400); Red Blood Cell Count 3.87 X10^6/uL (4.0-5.2); Red Cell Distribution Width 17.9 % (11.6-14.8)
[2024-03-09 09:19] LABS: BUN Creatinine Ratio 50.5 (6-22); Blood Urea Nitrogen 52 mg/dL (7-17); Calcium 9.9 mg/dL (8.4-10.2); Chloride 94 mmol/L (98-107); Estimated Glomerular Filt Rate > 60 mL/min (>60); Glucose 84 mg/dL (80-110); Potassium 4.9 mmol/L (3.4-5.1); Sodium 144 mmol/L (137-145)
[2024-03-09 09:37] LABS: HEMOLYSIS 129 (0-50)
[2024-03-09 09:47] LABS: Carbon Dioxide 48 mmol/L (22-32)
[2024-03-09] MEDS: METOPROLOL TARTRATE 5 MG/5 ML INJ IV (09:59)
[2024-03-09] MEDS: FLUTICASONE 120 SPRAY/16 GM SPRAY.SUSP NASAL (13:20)
[2024-03-09] MEDS: MONTELUKAST 10 MG TABLET PO (13:21)
[2024-03-09] MEDS: ACETAMINOPHEN 325 MG TABLET 650 MG PO ×2 (13:21→20:16)
[2024-03-09] MEDS: METOPROLOL ER 25 MG TABLET PO ×2 (13:22→20:17)
[2024-03-09] MEDS: APIXABAN 5 MG TABLET PO ×2 (13:22→20:17)
[2024-03-09] MEDS: POTASSIUM CHLORIDE 10 MEQ TAB 20 MEQ PO (13:23)
[2024-03-09] MEDS: MAGNESIUM OXIDE 400 MG TABLET 200 MG PO ×2 (13:23→20:15)
[2024-03-09] MEDS: LORATADINE 10 MG TABLET PO (13:23)
[2024-03-09] MEDS: polyethylene glycoL 3350 17 GM POWD.PACK PO (13:24)
[2024-03-09] MEDS: buPROPion SR 100 MG TAB PO ×2 (13:24→20:14)
[2024-03-09] MEDS: INSULIN LISPRO 100 UNIT/ML 3ML VIAL SUBCUT ×2 (13:25→17:09)
[2024-03-09] MEDS: NYSTATIN CREAM 30 GM 1 APPLIC TOP ×2 (14:06→20:19)
[2024-03-09] MEDS: INSULIN GLARGINE 100 UNIT/ML 3ML PEN 14 UNIT SUBCUT (17:09)
[2024-03-09] MEDS: INSULIN LISPRO 100 UNIT/ML 3ML VIAL 6 UNIT SUBCUT (17:10)
--- NOTE | 2024-03-09 19:29 | PM.PN.1 ---
Subjective Subjective Interval history: 62-year-old female with DM 2, COPD and chronic respiratory failure, systolic heart failure with an EF of 25%, paroxysmal atrial fibrillation on chronic Eliquis anticoagulation, class 3 obesity, PONCE, hypertension, hypothyroidism, recurrent UTI, and recurrent admissions for hypercapnia relating to difficulties with BiPAP at her facility, who was readmitted to our hospital last evening after previously being discharged 2 days prior with acute on chronic hypoxic respiratory failure and acute metabolic encephalopathy. This morning, patient is wearing BiPAP. She is alert and oriented. She states that she is thirsty, wants a cup of coffee, and would like to get off of the BiPAP. She can not recall the events that led her back to the hospital. Exam Vital Signs (past 8 hours): - 03/09/24 11:30 03/09/24 12:00 03/09/24 12:30 Temperature Pulse Rate 79 72 74 Respiratory Rate 30 H 29 H 27 H Blood Pressure Pulse Oximetry 93 98 97 Oxygen Delivery Method Oxygen Flow Rate Fraction of Inspired Oxygen 03/09/24 13:00 03/09/24 13:22 03/09/24 13:29 Temperature Pulse Rate 79 72 Respiratory Rate 29 H 22 Blood Pressure 127/82 Pulse Oximetry 97 98 Oxygen Delivery Method Nasal Cannula Oxygen Flow Rate 2 Fraction of Inspired Oxygen 03/09/24 13:29 03/09/24 13:30 03/09/24 14:00 Temperature Pulse Rate 77 73 76 Respiratory Rate 28 H 30 H 30 H Blood Pressure Pulse Oximetry 97 100 96 Oxygen Delivery Method Oxygen Flow Rate Fraction of Inspired Oxygen 03/09/24 14:04 03/09/24 14:05 03/09/24 14:05 Temperature 98.0 F Pulse Rate 74 76 Respiratory Rate 29 H Blood Pressure 103/75 103/75 Pulse Oximetry 95 Oxygen Delivery Method Oxygen Flow Rate Fraction of Inspired Oxygen 03/09/24 14:30 03/09/24 15:25 03/09/24 18:44 Temperature Pulse Rate 77 75 Respiratory Rate 25 H 20 Blood Pressure 103/75 Pulse Oximetry 97 97 Oxygen Delivery Method Room Air Oxygen Flow Rate 2 Fraction of Inspired Oxygen 0.40 Fraction of Inspired Oxygen 0.40 Oxygen Delivery Method Room Air Oxygen Flow Rate 2 Narrative Exam Narrative: GEN: Middle-aged female, Alert and oriented x 3, NAD HEENT:NC, Face symmetric CHEST: Respiratory excursions symmetric, course, diffusely diminished, CTAB CV: Mildly tachycardic with regular rhythm, no M/R/G ABD: Soft, obese, NT/ND, BT present in all 4 quadrants, body habitus limits exam EXTR: warm, well perfused, no C/C/E SKIN: warm and dry, no rash NEURO: Alert and oriented x 3, nonfocal Objective Labs 03/09/24 08:58 03/09/24 08:58 Labs: Laboratory Results - last 24 hr 03/09/24 08:58 WBC 8.0 RBC 3.87 L Hgb 12.8 Hct 40.8 MCV 105.4 H MCH 33.1 MCHC 31.4 RDW 17.9 H Plt Count 203 Neut % (Auto) 72.5 Lymph % (Auto) 16.2 L Norman % (Auto) 9.4 Eos % (Auto) 0.8 L Baso % (Auto) 1.1 Neut # (Auto) 5800 Lymph # (Auto) 1300 Norman # (Auto) 700 Eos # (Auto) 100 Baso # (Auto) 100 Sodium 144 Potassium 4.9 Chloride 94 L Carbon Dioxide 48 H* BUN 52 H Creatinine 1.03 Estimated GFR > 60 BUN/Creatinine Ratio 50.5 H Glucose 84 Calcium 9.9 PFSH Medical History Chronic hypercapnic respiratory failure PONCE (obstructive sleep apnea) Chronic hypoxemic respiratory failure COPD (chronic obstructive pulmonary disease) DM2 (diabetes mellitus, type 2) HTN (hypertension) Thyroiditis Systolic and diastolic CHF, chronic Obesity Surgical History S/P hernia surgery Family History Mother No pertinent past medical history Father No pertinent past medical history Social History household members: other Smoking Status: Former smoker alcohol intake: former Assessment & Plan Assessment & Plan narrative: 1. Acute hypoxic and hypercapnic respiratory failure Likely secondary to being off of her CPAP. Improved today. Will transition off of BiPAP and back to her usual CPAP. We will monitor through the day to see how her symptoms are controlled. Will trial Diamox due to her rising CO2. 2. Acute metabolic encephalopathy Resolved. Likely it was related to her respiratory failure 3. Paroxysmal atrial fibrillation Plan to resume her usual medications once her medications can be reconciled 4. COPD without exacerbation Await meds for reconciliation 5. Chronic systolic congestive heart failure No evidence of exacerbation 6. Diabetes mellitus type [address] on a controlled carb diet 7. CKD Appears to be stage III with GFR of 54. 8. Class 3 obesity BMI is 52.7. Would greatly benefit from weight reduction. Code status Full Prophylaxis Apixaban Disposition ICU for now Time-Based Coding :: [TOTAL MINUTES] spent with patient and on the chart (including review of chart, obtaining history, exam, reviewing outside data, placing orders, documenting exam and treatment plan, and counseling patient) on [DATE].
[2024-03-09] MEDS: acetaZOLAMIDE 250 MG TABLET PO (20:14)
[2024-03-09] MEDS: TRAZODONE 50 MG TABLET PO (20:14)
[2024-03-09] MEDS: GABAPENTIN 300 MG CAPSULE PO (20:14)
[2024-03-09] MEDS: DOCUSATE 100 MG CAPSULE PO (20:14)
[2024-03-09] MEDS: TORSEMIDE 10 MG TABLET 30 MG PO (20:15)
[2024-03-09] MEDS: SENNOSIDES 8.6 MG TABLET 17.2 MG PO (20:17)
[2024-03-10] VITALS (65 sets, daily range): BP systolic 80–114; BP diastolic 51–68; PULSE 56–94; RESP 16–44; TEMP 31–36.6; O2SAT 87–98
[2024-03-10 04:36] LABS: Add Manual Diff / Slide Review NO; Basophils Absolute Auto 0 /uL (0-100); Basophils Percent Auto 0.7 % (0-2); Eosinophils Absolute Auto 100 /uL (0-450); Eosinophils Percent Auto 1.2 % (2-4); Hematocrit 35.4 % (36-46); Hemoglobin 11.1 g/dL (12.0-16.0); Lymphocytes Absolute Auto 1100 /uL (1100-4500); Lymphocytes Percent Auto 16.9 % (25-40); Mean Corpuscular HGB Conc 31.4 % (30-36); Mean Corpuscular Hemoglobin 33.2 PG (26-34); Mean Corpuscular Volume 105.6 fL (80-100); Monocytes Absolute Auto 600 /uL (0-900); Monocytes Percent Auto 10.1 % (3-14); Neutrophils Absolute Auto 4600 /uL (1500-7000); Neutrophils Percent Auto 71.1 % (50-75); Platelet Count 168 X10^3/uL (150-400); Red Blood Cell Count 3.35 X10^6/uL (4.0-5.2); Red Cell Distribution Width 17.9 % (11.6-14.8); White Blood Cell Count 6.4 X10^3/uL (4.5-11.0)
[2024-03-10 05:05] LABS: BUN Creatinine Ratio 34.3 (6-22); Blood Urea Nitrogen 47 mg/dL (7-17); Calcium 9.6 mg/dL (8.4-10.2); Chloride 94 mmol/L (98-107); Estimated Glomerular Filt Rate 44 mL/min (>60); Glucose 132 mg/dL (80-110); Sodium 137 mmol/L (137-145)
[2024-03-10 05:12] LABS: HEMOLYSIS 24 (0-50)
[2024-03-10 05:26] LABS: Carbon Dioxide 45 mmol/L (22-32)
[2024-03-10] MEDS: LEVOTHYROXINE 100 MCG TABLET PO (06:51)
[2024-03-10] MEDS: LEVOTHYROXINE 75 MCG TABLET PO (06:51)
[2024-03-10] MEDS: ALBUTEROL 2.5 MG/3 ML NEB (ADULT) INH ×2 (07:42→19:02)
[2024-03-10] MEDS: BUDESONIDE 0.5 MG/2 ML NEB INH ×2 (07:42→19:02)
[2024-03-10] MEDS: polyethylene glycoL 3350 17 GM POWD.PACK PO (08:28)
[2024-03-10] MEDS: predniSONE 5 MG TABLET 12.5 MG PO (08:28)
[2024-03-10] MEDS: POTASSIUM CHLORIDE 10 MEQ TAB 20 MEQ PO (08:30)
[2024-03-10] MEDS: acetaZOLAMIDE 250 MG TABLET PO ×2 (08:30→20:19)
[2024-03-10] MEDS: DOCUSATE 100 MG CAPSULE PO (08:30)
[2024-03-10] MEDS: buPROPion SR 100 MG TAB PO ×2 (08:30→20:19)
[2024-03-10] MEDS: FLUoxetine 20 MG CAPSULE PO (08:30)
[2024-03-10] MEDS: MONTELUKAST 10 MG TABLET PO (08:30)
[2024-03-10] MEDS: MAGNESIUM OXIDE 400 MG TABLET 200 MG PO ×2 (08:30→20:20)
[2024-03-10] MEDS: INSULIN LISPRO 100 UNIT/ML 3ML VIAL SUBCUT ×4 (08:31→20:22)
[2024-03-10] MEDS: INSULIN LISPRO 100 UNIT/ML 3ML VIAL 6 UNIT SUBCUT ×3 (08:31→17:22)
[2024-03-10] MEDS: ACETAMINOPHEN 325 MG TABLET 650 MG PO ×3 (08:31→20:19)
[2024-03-10] MEDS: APIXABAN 5 MG TABLET PO ×2 (08:31→20:19)
[2024-03-10] MEDS: INSULIN GLARGINE 100 UNIT/ML 3ML PEN 22 UNIT SUBCUT (08:32)
[2024-03-10] MEDS: LORATADINE 10 MG TABLET PO (08:34)
[2024-03-10] MEDS: NYSTATIN CREAM 30 GM 1 APPLIC TOP ×3 (08:35→20:21)
[2024-03-10] MEDS: FLUTICASONE 120 SPRAY/16 GM SPRAY.SUSP NASAL (08:35)
--- NOTE | 2024-03-10 10:46 | PM.PN.1 ---
Subjective Subjective Interval history: 62-year-old female with DM 2, COPD and chronic respiratory failure, systolic heart failure with an EF of 25%, paroxysmal atrial fibrillation on chronic Eliquis anticoagulation, class 3 obesity, PONCE, hypertension, hypothyroidism, recurrent UTI, and recurrent admissions for hypercapnia relating to difficulties with BiPAP at her facility, who was readmitted to our hospital on March 08 after previously being discharged 2 days prior with acute on chronic hypoxic respiratory failure and acute metabolic encephalopathy. Patient reports she is feeling well today. She is sitting up drinking tea. She states she slept ?like a log? last evening. She denies any shortness a breath or chest pain. She states she does sometimes forget to put her CPAP on after taking it off at the facility. She states she has lived at [facility] for the last 2 years. She reports she has no where else to live. Exam Vital Signs (past 8 hours): - 03/10/24 02:50 03/10/24 03:00 03/10/24 03:00 Temperature Pulse Rate 68 Respiratory Rate 24 Blood Pressure 114/55 L Pulse Oximetry 97 Oxygen Delivery Method Oxygen Flow Rate Fraction of Inspired Oxygen 40 03/10/24 03:30 03/10/24 04:00 03/10/24 04:00 Temperature Pulse Rate 61 63 Respiratory Rate 25 H 25 H Blood Pressure 108/62 Pulse Oximetry 98 96 Oxygen Delivery Method Oxygen Flow Rate Fraction of Inspired Oxygen 03/10/24 04:30 03/10/24 05:00 03/10/24 05:01 Temperature Pulse Rate 64 59 L Respiratory Rate 28 H 24 Blood Pressure 114/68 Pulse Oximetry 97 96 Oxygen Delivery Method Oxygen Flow Rate Fraction of Inspired Oxygen 03/10/24 05:01 03/10/24 05:30 03/10/24 06:00 Temperature Pulse Rate 59 L 60 60 Respiratory Rate 26 H 26 H 25 H Blood Pressure Pulse Oximetry 96 96 95 Oxygen Delivery Method Oxygen Flow Rate Fraction of Inspired Oxygen 03/10/24 06:30 03/10/24 07:00 03/10/24 07:08 Temperature Pulse Rate 60 62 Respiratory Rate 24 38 H Blood Pressure 94/58 L Pulse Oximetry 96 98 Oxygen Delivery Method Oxygen Flow Rate Fraction of Inspired Oxygen 03/10/24 07:08 03/10/24 07:30 03/10/24 07:43 Temperature Pulse Rate 73 73 68 Respiratory Rate 29 H 24 20 Blood Pressure Pulse Oximetry 97 96 97 Oxygen Delivery Method Nasal Cannula Oxygen Flow Rate 2 Fraction of Inspired Oxygen 03/10/24 08:00 03/10/24 08:00 03/10/24 08:01 Temperature Pulse Rate 71 Respiratory Rate 27 H Blood Pressure 98/57 L Pulse Oximetry 91 Oxygen Delivery Method Nasal Cannula Oxygen Flow Rate Fraction of Inspired Oxygen 03/10/24 08:01 03/10/24 08:30 03/10/24 09:00 Temperature Pulse Rate 64 74 Respiratory Rate 27 H 30 H Blood Pressure 80/53 L Pulse Oximetry 92 Oxygen Delivery Method Oxygen Flow Rate Fraction of Inspired Oxygen 03/10/24 09:00 03/10/24 09:02 03/10/24 09:02 Temperature 97.8 F Pulse Rate 70 70 Respiratory Rate 29 H 32 H Blood Pressure 88/54 L Pulse Oximetry Oxygen Delivery Method Oxygen Flow Rate Fraction of Inspired Oxygen 03/10/24 09:30 03/10/24 09:33 Temperature Pulse Rate 67 68 Respiratory Rate 31 H Blood Pressure 88/54 L Pulse Oximetry Oxygen Delivery Method Oxygen Flow Rate Fraction of Inspired Oxygen Fraction of Inspired Oxygen 40 Oxygen Delivery Method Nasal Cannula Oxygen Flow Rate 2 Narrative Exam Narrative: GEN: Middle-aged female, Alert and oriented x 3, NAD HEENT:NC, Face symmetric CHEST: Respiratory excursions symmetric, course, diffusely diminished, CTAB CV: RRR, no M/R/G ABD: Soft, obese, NT/ND, BT present in all 4 quadrants, body habitus limits exam EXTR: warm, well perfused, no C/C/E SKIN: warm and dry, no rash NEURO: Alert and oriented x 3, nonfocal Objective Labs 03/10/24 04:25 03/10/24 04:25 Labs: Laboratory Results - last 24 hr 03/10/24 04:25 WBC 6.4 RBC 3.35 L Hgb 11.1 L Hct 35.4 L MCV 105.6 H MCH 33.2 MCHC 31.4 RDW 17.9 H Plt Count 168 Neut % (Auto) 71.1 Lymph % (Auto) 16.9 L [place] % (Auto) 10.1 Eos % (Auto) 1.2 L Baso % (Auto) 0.7 Neut # (Auto) 4600 Lymph # (Auto) 1100 [place] # (Auto) 600 Eos # (Auto) 100 Baso # (Auto) 0 Sodium 137 Potassium 4.0 Chloride 94 L Carbon Dioxide 45 H* BUN 47 H Creatinine 1.37 H Estimated GFR 44 L BUN/Creatinine Ratio 34.3 H Glucose 132 H Calcium 9.6 PFSH Medical History Chronic hypercapnic respiratory failure PONCE (obstructive sleep apnea) Chronic hypoxemic respiratory failure COPD (chronic obstructive pulmonary disease) DM2 (diabetes mellitus, type 2) HTN (hypertension) Thyroiditis Systolic and diastolic CHF, chronic Obesity Surgical History S/P hernia surgery Family History Mother No pertinent past medical history Father No pertinent past medical history Social History household members: other Smoking Status: Former smoker alcohol intake: former Assessment & Plan Assessment & Plan narrative: 1. Acute hypoxic and hypercapnic respiratory failure Likely secondary to being off of her CPAP. Resolved. Continue usual CPAP. Tolerating trial of Diamox thus far. 2. Acute metabolic encephalopathy Resolved. Likely it was related to her respiratory failure 3. Paroxysmal atrial fibrillation She did have AFib with RVR yesterday. She did receive IV metoprolol while awaiting her medication list from [facility] to reconcile her medications. She subsequently converted back to sinus rhythm. Medications were reconciled in her usual home medications were resumed. No recurrence of RVR. 4. COPD without exacerbation Restarted her usual home medications yesterday. 5. Chronic systolic congestive heart failure No evidence of exacerbation 6. Diabetes mellitus type 2 Continue controlled carb diet. Continue Lantus 22 units in the morning and 16 units in the evening as well as prandial insulin. 7. CKD stage III Stable. 8. Class 3 obesity BMI is 52.7. Would greatly benefit from weight reduction. Code status Full Prophylaxis Apixaban Disposition Will transition to acute care. While she is ready for discharge back to [facility] today, they are unable to accept her. She has been accepted back to the facility tomorrow morning at 10:30 a.m.. Time-Based Coding :: [TOTAL MINUTES] spent with patient and on the chart (including review of chart, obtaining history, exam, reviewing outside data, placing orders, documenting exam and treatment plan, and counseling patient) on [DATE].
[2024-03-10] MEDS: ALBUTEROL/IPRATROPIUM 3 ML AMPUL INH (12:05)
--- NOTE | 2024-03-10 12:18 | CM.DPNOTE ---
DCP Note [facility] CONSULTANT reviewed EMR. Per hospitalist, pt cleared to dc back to today. Per RN, pt cleared to transport via van. Per August at , no admitting nurse and unable to take pt back today. Arranged for p/u tomorrow (Monday) at 10:30am. Updated provider/RN. no PASRR needed (pt LTC resident). P: return to Monday at 10:30am. CM team will continue to follow closely for final arrangements. GA Han
[2024-03-10] MEDS: INSULIN GLARGINE 100 UNIT/ML 3ML PEN 14 UNIT SUBCUT (17:22)
[2024-03-10] MEDS: TORSEMIDE 10 MG TABLET 30 MG PO (20:19)
[2024-03-10] MEDS: TRAZODONE 50 MG TABLET PO (20:19)
[2024-03-10] MEDS: GABAPENTIN 300 MG CAPSULE PO (20:19)
[2024-03-10] MEDS: METOPROLOL ER 25 MG TABLET PO (20:20)
[2024-03-11] VITALS (14 sets, daily range): BP systolic 95–123; BP diastolic 52–74; PULSE 51–86; RESP 16–26; TEMP 31–36.6; O2SAT 95–100
[2024-03-11] MEDS: LEVOTHYROXINE 100 MCG TABLET PO (06:23)
[2024-03-11] MEDS: LEVOTHYROXINE 75 MCG TABLET PO (06:23)
[2024-03-11] MEDS: BUDESONIDE 0.5 MG/2 ML NEB INH (07:14)
[2024-03-11 07:16] LABS: Add Manual Diff / Slide Review NO; Basophils Absolute Auto 0 /uL (0-100); Basophils Percent Auto 0.5 % (0-2); Eosinophils Absolute Auto 100 /uL (0-450); Hemoglobin 11.4 g/dL (12.0-16.0); Lymphocytes Absolute Auto 1300 /uL (1100-4500); Lymphocytes Percent Auto 18.7 % (25-40); Mean Corpuscular HGB Conc 31.7 % (30-36); Mean Corpuscular Hemoglobin 33.3 PG (26-34); Mean Corpuscular Volume 104.9 fL (80-100); Monocytes Absolute Auto 800 /uL (0-900); Monocytes Percent Auto 11.3 % (3-14); Neutrophils Absolute Auto 4700 /uL (1500-7000); Neutrophils Percent Auto 68.5 % (50-75); Platelet Count 178 X10^3/uL (150-400); Red Blood Cell Count 3.43 X10^6/uL (4.0-5.2); Red Cell Distribution Width 17.7 % (11.6-14.8); White Blood Cell Count 6.9 X10^3/uL (4.5-11.0)
[2024-03-11 07:45] LABS: BUN Creatinine Ratio 33.8 (6-22); Blood Urea Nitrogen 49 mg/dL (7-17); Calcium 9.9 mg/dL (8.4-10.2); Chloride 95 mmol/L (98-107); Estimated Glomerular Filt Rate 41 mL/min (>60); Glucose 151 mg/dL (80-110); HEMOLYSIS < 15 (0-50); Sodium 140 mmol/L (137-145)
[2024-03-11 08:18] LABS: Carbon Dioxide 38 mmol/L (22-32)
--- NOTE | 2024-03-11 08:25 | PM.DS.1 ---
History of Present Illness History of Present Illness Chief complaint: difficult to arouse Narrative: The patient was a 62-year-old female just discharged 2 days ago from the hospital. She has a history of DM 2, COPD and chronic respiratory failure, systolic heart failure with an EF of 25%, morbid obesity, PONCE, hypertension, hypothyroidism, recurrent UTI, and recurrent admissions for hypercapnia relating to difficulties with BiPAP at her facility. The patient was admitted for hypercapnic failure and improved. She was discharged on the in his now back with recurrent altered mental status and evidence of hypercarbia. She did have recent cultures that were positive for ESBL in her urine. She completed a 7 day course of ertapenem on March 06. She arrived to the unit awake and drinking water. She states that she [facility] She can not really remember what exactly happened leading to her taking it off. She really has no memory of the entire day. She can not remember if she ate breakfast, or lunch. She denies any new symptoms including chest pain, or any pain. She was now much less confused having been on BiPAP for the last couple of hours in the ED. Discharge Providers Provider Date of admission: 03/08/24 17:17 Discharge Date: 03/11/24 Primary care physician: Manish Vernon MD Consults: None. Discharge provider: Ramon Howard MD Summary Hospital Course Discharge Diagnosis: 1. Acute hypoxic and hypercapnic respiratory failure, present on admission and improved. Likely secondary to being off of her CPAP. Resolved. Continue usual CPAP. Tolerating trial of Diamox thus far. 2. Acute metabolic encephalopathy, present on admission and improved. Resolved. Likely it was related to her respiratory failure 3. Paroxysmal atrial fibrillation, stable. She did have AFib with RVR yesterday. She did receive IV metoprolol while awaiting her medication list from [facility] to reconcile her medications. She subsequently converted back to sinus rhythm. Medications were reconciled in her usual home medications were resumed. No recurrence of RVR. 4. COPD without exacerbation, stable. Restarted her usual home medications yesterday. 5. Chronic systolic congestive heart failure, stable. No evidence of exacerbation 6. Diabetes mellitus type 2, stable. Continue controlled carb diet. Continue Lantus 22 units in the morning and 16 units in the evening as well as prandial insulin. 7. CKD stage III, stable. Stable. 8. Class 3 obesity, stable. BMI is 52.7. Would greatly benefit from weight reduction. Hospital Course: She was admitted with acute respiratory failure and hypercarbia secondary to CPAP noncompliance. She was ventilated here and improved. Due to persistent hypercarbia, which is chronic, she was started on Diamox trial. She appeared to stabilize and be medically ready for discharge back to her facility on March 11. Status at Discharge Cognitive/behavioral status at discharge: at baseline, oriented Functional status at discharge: bed bound Overall status at discharge: patient is back to baseline Time Spent with Patient Time spent: Greater than 30 minutes Exam Vital Signs (past 8 hours): - 03/11/24 00:30 03/11/24 01:00 03/11/24 01:30 Temperature Pulse Rate 60 56 L 61 Respiratory Rate 22 24 24 Blood Pressure Pulse Oximetry 96 97 98 Oxygen Delivery Method Oxygen Flow Rate Fraction of Inspired Oxygen 03/11/24 02:00 03/11/24 02:30 03/11/24 03:00 Temperature Pulse Rate 55 L 56 L 57 L Respiratory Rate 26 H 25 H 24 Blood Pressure Pulse Oximetry 96 97 98 Oxygen Delivery Method Oxygen Flow Rate Fraction of Inspired Oxygen 03/11/24 03:30 03/11/24 03:41 03/11/24 03:41 Temperature 97.6 F Pulse Rate 53 L 51 L Respiratory Rate 22 22 Blood Pressure 123/74 Pulse Oximetry 98 100 Oxygen Delivery Method Oxygen Flow Rate 3 Fraction of Inspired Oxygen 03/11/24 04:01 03/11/24 07:17 03/11/24 08:00 Temperature Pulse Rate 86 59 L Respiratory Rate 18 19 Blood Pressure 123/74 Pulse Oximetry 96 95 Oxygen Delivery Method Nasal Cannula Oxygen Flow Rate 3 3 Fraction of Inspired Oxygen 40 32 Fraction of Inspired Oxygen 32 SaO2/FiO2 Ratio 300 Oxygen Delivery Method Nasal Cannula Oxygen Flow Rate 3 Narrative Exam Narrative: NAD, alert and oriented. Fluent speech. Lungs are clear, normal rate and effort. Heart is regular, no murmur gallop or rub. Abdomen is soft, non distended. Extremities are free of edema. Objective ECG Impression: Interpretive Statements Sinus rhythm with premature supraventricular complexes and with frequent premature ventricular complexes Left axis deviation Imaging Chest x-ray: Radiologist's impression: Moderate left pleural effusion with compressive left basilar atelectasis. Labs 03/11/24 07:05 03/11/24 07:05 Labs: Laboratory Results - last 24 hr 03/11/24 07:05 WBC 6.9 RBC 3.43 L Hgb 11.4 L Hct 36.0 MCV 104.9 H MCH 33.3 MCHC 31.7 RDW 17.7 H Plt Count 178 Neut % (Auto) 68.5 Lymph % (Auto) 18.7 L [place] % (Auto) 11.3 Eos % (Auto) 1.0 L Baso % (Auto) 0.5 Neut # (Auto) 4700 Lymph # (Auto) 1300 [place] # (Auto) 800 Eos # (Auto) 100 Baso # (Auto) 0 Sodium 140 Potassium 4.0 Chloride 95 L Carbon Dioxide 38 H BUN 49 H Creatinine 1.45 H Estimated GFR 41 L BUN/Creatinine Ratio 33.8 H Glucose 151 H Calcium 9.9 PFSH Medical History Chronic hypercapnic respiratory failure PONCE (obstructive sleep apnea) Chronic hypoxemic respiratory failure COPD (chronic obstructive pulmonary disease) DM2 (diabetes mellitus, type 2) HTN (hypertension) Thyroiditis Systolic and diastolic CHF, chronic Obesity Surgical History S/P hernia surgery Family History Mother No pertinent past medical history Father No pertinent past medical history Social History household members: other Smoking Status: Former smoker alcohol intake: former Discharge Assessment & Plan Assessment and Plan Assessment: 1. Acute hypoxic and hypercapnic respiratory failure, present on admission and improved. Likely secondary to being off of her CPAP. Resolved. Continue usual CPAP. Tolerating trial of Diamox thus far. 2. Acute metabolic encephalopathy, present on admission and improved. Resolved. Likely it was related to her respiratory failure 3. Paroxysmal atrial fibrillation, stable. She did have AFib with RVR yesterday. She did receive IV metoprolol while awaiting her medication list from [facility] to reconcile her medications. She subsequently converted back to sinus rhythm. Medications were reconciled in her usual home medications were resumed. No recurrence of RVR. 4. COPD without exacerbation, stable. Restarted her usual home medications yesterday. 5. Chronic systolic congestive heart failure, stable. No evidence of exacerbation 6. Diabetes mellitus type 2, stable. Continue controlled carb diet. Continue Lantus 22 units in the morning and 16 units in the evening as well as prandial insulin. 7. CKD stage III, stable. Stable. 8. Class 3 obesity, stable. BMI is 52.7. Would greatly benefit from weight reduction. Plan of Treatment: Discharge back to facility with reach out resumption of nightly CPAP and continue Diamox for the next week to see if this improves her clinical course. Discharge Plan Discharge Plan Patient Disposition: SNF Transfer to: [facility] Discharge orders & Medications Prescriptions: New acetazolamide 250 mg Tablet 250 mg PO BID Qty: 60 0RF Continued albuterol sulfate 90 mcg/actuation HFA aerosol inhaler 4 puff INHALATION Q4H PRN (Reason: Shortness Of Breath Or Wheezing) levothyroxine 175 mcg tablet 175 mcg PO DAILY potassium chloride 10 mEq tablet extended release 20 meq PO DAILY torsemide 10 mg tablet 30 mg PO BEDTIME Rx Instructions: hold for SBP <100, HR <60 metoprolol succinate 25 mg Tablet Extended Release 24 Hr 25 mg PO BID Rx Instructions: hold if SBP <100, HR <80 insulin glargine 100 unit/mL (3 mL) Insulin Pen 22 unit SUBCUT QAM liraglutide 0.6 mg/0.1 mL (18 mg/3 mL) pen injector 1.2 mg SUBCUT DAILY Patient Comments: [NO ORIGINAL SIG] apixaban 5 mg Tablet 5 mg PO BID Jardiance 10 mg Tablet 10 mg PO DAILY prednisone 10 mg tablet 12.5 mg PO DAILY Rx Instructions: until 03/10/24 then decrease to 10 mg daily insulin glargine 100 unit/mL (3 mL) Insulin Pen 14 unit SUBCUT QPM Qty: 50 0RF sennosides [senna] 8.6 mg tablet 17.2 mg PO BEDTIME acetaminophen [Tylenol] 325 mg Tablet 650 mg PO TID trazodone 50 mg tablet 50 mg PO BEDTIME cyanocobalamin (vitamin B-12) 500 mcg Tablet 500 mcg PO DAILY fluoxetine 20 mg Tablet 20 mg PO DAILY gabapentin 300 mg Capsule 300 mg PO BEDTIME montelukast 10 mg Tablet 10 mg PO DAILY insulin lispro [Humalog U-100 Insulin] 100 unit/mL Solution See Protocol SUBCUT TIDWM Protocol: TITRATE PER PROTOCOL Rx Instructions: sliding scale 121-150=2 units; 151-200=4 units; 201-250=6 units; 251-350=10 units; 351-450=14 units; 451+=16 units ondansetron 4 mg Tablet,Disintegrating 4 mg PO Q8H PRN (Reason: Nausea) fluticasone propionate 50 mcg/actuation [place],Suspension 2 spray INTRANASAL DAILY Rx Instructions: administer into each nostril loratadine 10 mg Tablet 10 mg PO DAILY rosuvastatin 40 mg Tablet 40 mg PO DAILY tiotropium bromide [Spiriva with HandiHaler] 18 mcg Capsule, W/Inhalation Device 1 cap INHALATION DAILY Rx Instructions: puncture 1 cap using device; one dose = 2 inhalations fenofibrate 160 mg Tablet 160 mg PO BEDTIME budesonide-formoterol 160-4.5 mcg/actuation Hfa Aerosol Inhaler 2 puff INHALATION Q4H PRN (Reason: Wheezing) magnesium oxide 200 mg magnesium Tablet 200 mg PO BID albuterol sulfate 2.5 mg /3 mL (0.083 %) solution for nebulization 2.5 mg inhalation Q6H PRN (Reason: wheezing/cough) docusate sodium 100 mg Capsule 100 mg PO BID ipratropium-albuterol 0.5 mg-3 mg(2.5 mg base)/3 mL Solution For Nebulization 3 ml INHALATION Q4H PRN (Reason: COPD) polyethylene glycol 3350 [Miralax] 17 gram Powder In Packet 17 g PO DAILY insulin lispro 100 unit/mL Insulin Pen 6 unit SUBCUT AC bupropion HCl 100 mg tablet sustained-release 12 hr 100 mg PO BID Follow up/Referrals: Manish Vernon MD [Primary Care Provider] - Visit Report/Discharge Packet Stand Alone Forms: Patient Portal/API Discharge Data Primary Care Provider: Manish Vernon
[2024-03-11] MEDS: INSULIN LISPRO 100 UNIT/ML 3ML VIAL SUBCUT (08:26)
[2024-03-11] MEDS: INSULIN LISPRO 100 UNIT/ML 3ML VIAL 6 UNIT SUBCUT (08:28)
[2024-03-11] MEDS: ACETAMINOPHEN 325 MG TABLET 650 MG PO (08:39)
[2024-03-11] MEDS: polyethylene glycoL 3350 17 GM POWD.PACK PO (08:39)
[2024-03-11] MEDS: predniSONE 5 MG TABLET 12.5 MG PO (08:40)
[2024-03-11] MEDS: MONTELUKAST 10 MG TABLET PO (08:40)
[2024-03-11] MEDS: POTASSIUM CHLORIDE 10 MEQ TAB 20 MEQ PO (08:40)
[2024-03-11] MEDS: DOCUSATE 100 MG CAPSULE PO (08:40)
[2024-03-11] MEDS: FLUoxetine 20 MG CAPSULE PO (08:40)
[2024-03-11] MEDS: APIXABAN 5 MG TABLET PO (08:41)
[2024-03-11] MEDS: LORATADINE 10 MG TABLET PO (08:41)
[2024-03-11] MEDS: MAGNESIUM OXIDE 400 MG TABLET 200 MG PO (08:41)
[2024-03-11] MEDS: INSULIN GLARGINE 100 UNIT/ML 3ML PEN 22 UNIT SUBCUT (08:42)
[2024-03-11] MEDS: acetaZOLAMIDE 250 MG TABLET PO (08:42)
[2024-03-11] MEDS: buPROPion SR 100 MG TAB PO (08:43)
[2024-03-11] MEDS: NYSTATIN CREAM 30 GM 1 APPLIC TOP (08:45)
[2024-03-11] MEDS: FLUTICASONE 120 SPRAY/16 GM SPRAY.SUSP NASAL (08:52)
--- NOTE | 2024-03-11 10:00 | PC.NURSE ---
Addendum entered by Sandrita Disla R.N. 03/11/24 11:31: 1105 Patient prescriptions provided to patient. Addendum entered by Sandrita Disla R.N. 03/11/24 11:04: 1104 Patient off unit via wheelchair. Patient on 3L NC from personal oxygen tank. Belongings in possession. Patient transport given patient discharge paperwork. IV to right forearm removed and band-aid applied. Patient gown changed. Patient refused socks. Patient cleansed and mariely-care performed. Patient verbalized understanding regarding discharge. Original Note: 4230 Report recived from nightshift RN. Patient AAO x's 3. Able to [place]. PIV noted to right AC, dressing clean, dry and intact. Denies pain. Mild BLE numbness and tingling noted, per patient chronic. Call light within reach and bed in lowest position. 1193 Report given to MAI Hernandez at [facility]. Plan of care discussed. Patient on 3L NC, sating 95%. Denies pain.
--- NOTE | 2024-03-11 10:14 | CM.DPC ---
DCP Discharge SNF Per MD, pt remains medically stable to discharge back to [facility] today and discharge orders placed and no identified barriers to discharge. SW called [facility] admissions and confirmed they can still accept pt today with transport this morning around 1030. ABILIO Jaeger kindly faxed discharge packet to [facility] to review, no PASRR needed since pt a return without significant changes. RN updated and provided RN report number to call. GA Pruitt
== END 2024-03-11 11:32 | DRG 133 ==
LOC: ED 14:23 → AC 17:20 → ICU 17:23
PROVIDERS: Admitting Provider Hospitalist; Emergency Provider Emergency Medicine; PCP Student in an Organized Health Care Education/Training Program; Referring Provider Emergency Medicine; Visit Provider Hospitalist
DX: J96.22 Acute and chronic respiratory failure with hypercapnia (principal); G93.41 Metabolic encephalopathy; I50.22 Chronic systolic (congestive) heart failure; J96.01 Acute respiratory failure with hypoxia; I48.0 Paroxysmal atrial fibrillation; J44.9 Chronic obstructive pulmonary disease, unspecified; E11.22 Type 2 diabetes mellitus with diabetic chronic kidney disease; I13.0 Hypertensive heart and chronic kidney disease with heart failure and stage 1 through stage 4 chronic kidney disease, or unspecified chronic kidney disease; E03.9 Hypothyroidism, unspecified; G47.33 Obstructive sleep apnea (adult) (pediatric); N18.30 Chronic kidney disease, stage 3 unspecified; E66.813 Obesity, class 3; Z68.43 Body mass index [BMI] 50.0-59.9, adult; Z91.199 Patient's noncompliance with other medical treatment and regimen due to unspecified reason; Z79.4 Long term (current) use of insulin; Z79.01 Long term (current) use of anticoagulants; Z87.440 Personal history of urinary (tract) infections; Z87.891 Personal history of nicotine dependence; Z79.85 Long-term (current) use of injectable non-insulin antidiabetic drugs; Z79.84 Long term (current) use of oral hypoglycemic drugs; Z79.52 Long term (current) use of systemic steroids; Z59.819 Housing instability, housed unspecified
CPT/HCPCS: 36415; 71045; 80048; 80053; 82550; 82805; 82962; 83605; 83690; 84484; 85025; 93005; 94640; 94660; 94762; 99284; 99285; J1650; J1815; J7613

== ENCOUNTER 2024-03-14 11:48 | Observation (INO) | payer OTHER, SELFPAY ==
[2023-07-02 15:36] VITALS: RESP 0
[2024-03-08 17:22] VITALS: BMI 54.1
[2024-03-11 04:01] VITALS: PULSE 52; RESP 25; O2SAT 98
[2024-03-14] VITALS (32 sets, daily range): BP systolic 84–145; BP diastolic 56–94; PULSE 56–133; RESP 12–36; TEMP 28.8–36.9; O2SAT 87–95; BMI 51.0
--- NOTE | 2024-03-14 11:51 | ED_ITS ---
HPI - General Adult General Chief complaint: Shortness of Breath/Dyspnea Stated complaint: Illness Time Seen by Provider: 03/14/24 11:51 History of Present Illness HPI narrative: 63-year-old woman with COPD and chronic respiratory failure supposed to be on trilogy full-time, systolic heart failure with an ejection fraction of 25%, sleep apnea, morbid obesity, hypertension, hypothyroidism and type 2 diabetes with recurrent hospital admissions currently at [facility]. She was admitted to [facility] March 10- , February 27 to , prior admission in October. She does have history of ESBL urinary tract infection. Brought in by medics with concern for altered mental status and respiratory difficulty. She notes that she has not been using her trilogy while at [facility] Related Data Home Medications Medication Instructions Recorded Confirmed acetaminophen 325 mg tablet 650 mg PO TID 05/25/22 03/09/24 (Tylenol) budesonide-formoterol HFA 160 2 puff inhalation Q4H PRN Wheezing 05/25/22 03/09/24 mcg-4.5 mcg/actuation aerosol inhaler cyanocobalamin (vitamin B-12) 500 500 mcg PO DAILY 05/25/22 03/09/24 mcg tablet fenofibrate 160 mg tablet 160 mg PO BEDTIME 05/25/22 03/09/24 fluoxetine 20 mg tablet 20 mg PO DAILY 05/25/22 03/09/24 fluticasone propionate 50 2 spray intranasal DAILY 05/25/22 03/09/24 mcg/actuation nasal spray,suspension gabapentin 300 mg capsule 300 mg PO BEDTIME 05/25/22 03/09/24 insulin lispro 100 unit/mL See Protocol SUBCUT TIDWM 05/25/22 03/09/24 subcutaneous solution (Humalog U-100 Insulin) loratadine 10 mg tablet 10 mg PO DAILY 05/25/22 03/09/24 magnesium oxide 200 mg PO BID 05/25/22 03/09/24 montelukast 10 mg tablet 10 mg PO DAILY 05/25/22 03/09/24 ondansetron 4 mg disintegrating 4 mg PO Q8H PRN Nausea 05/25/22 03/09/24 tablet rosuvastatin 40 mg tablet 40 mg PO DAILY 05/25/22 03/09/24 sennosides 8.6 mg tablet (senna) 17.2 mg PO BEDTIME 05/25/22 03/09/24 tiotropium bromide 18 mcg capsule 1 cap inhalation DAILY 05/25/22 03/09/24 with inhalation device (Spiriva with HandiHaler) trazodone 50 mg tablet 50 mg PO BEDTIME 05/25/22 03/09/24 albuterol sulfate 90 mcg/actuation 4 puff inhalation Q4H PRN 08/15/22 03/09/24 aerosol inhaler Shortness Of Breath Or Wheezing levothyroxine 175 mcg tablet 175 mcg PO DAILY 08/15/22 03/09/24 potassium chloride 10 mEq 20 meq PO DAILY 08/15/22 03/09/24 tablet,extended release torsemide 10 mg tablet 30 mg PO BEDTIME 05/20/23 03/09/24 albuterol sulfate 2.5 mg/3 mL 2.5 mg inhalation Q6H PRN 10/24/23 03/09/24 (0.083 %) solution for nebulization wheezing/cough docusate sodium 100 mg capsule 100 mg PO BID Constipation 10/24/23 03/09/24 insulin lispro 100 unit/mL 6 unit SUBCUT AC 10/24/23 03/09/24 subcutaneous pen ipratropium 0.5 mg-albuterol 3 mg 3 ml inhalation Q4H PRN COPD 10/24/23 03/09/24 (2.5 mg base)/3 mL nebulization soln polyethylene glycol 3350 17 gram 17 g PO DAILY 10/24/23 03/09/24 oral powder packet (Miralax) bupropion HCl 100 mg tablet,12 hr 100 mg PO BID 10/31/23 03/09/24 sustained-release apixaban 5 mg tablet 5 mg PO BID 02/28/24 03/09/24 empagliflozin 10 mg tablet 10 mg PO DAILY 02/28/24 03/09/24 (Jardiance) insulin glargine 100 unit/mL (3 22 unit SUBCUT QAM 02/28/24 03/09/24 mL) subcutaneous pen liraglutide 0.6 mg/0.1 mL (18 mg/3 1.2 mg SUBCUT DAILY 02/28/24 03/09/24 mL) subcutaneous pen injector metoprolol succinate 25 mg 25 mg PO BID 02/28/24 03/09/24 tablet,extended release 24 hr prednisone 10 mg tablet 12.5 mg PO DAILY 02/28/24 03/09/24 Previous Rx's Medication Instructions Recorded insulin glargine 100 unit/mL (3 14 unit (0.14 mL) SUBCUT QPM #50 mL 03/06/24 mL) subcutaneous pen acetazolamide 250 mg tablet 250 mg PO BID #60 tabs 03/11/24 Allergies Allergy/AdvReac Type Severity Reaction Status Date / Time No Known Drug Allergies Allergy Verified 03/14/24 12:18 Review of Systems Review of Systems Narrative: Pertinent positive and negative findings as per HPI Patient History Medical History Chronic hypercapnic respiratory failure PONCE (obstructive sleep apnea) Chronic hypoxemic respiratory failure COPD (chronic obstructive pulmonary disease) DM2 (diabetes mellitus, type 2) HTN (hypertension) Thyroiditis Systolic and diastolic CHF, chronic Obesity Surgical History S/P hernia surgery Family History Mother No pertinent past medical history Father No pertinent past medical history Social History household members: other Smoking Status: Former smoker alcohol intake: former Smoking Status: Former smoker alcohol intake frequency: other Exam Initial Vital Signs Initial Vital Signs: Vital Signs Pulse Rate 57 L 03/14/24 11:55 Pulse Oximetry 89 L 03/14/24 11:55 General: Morbidly obese, chronically ill-appearing acutely confused HEENT: Moist mucous membranes, normal sclera with reactive pupils, Respiratory: Lungs with poor overall air movement, no obvious rales or rhonchi appreciated Cardiac: Regular rate and rhythm no murmurs no bruits Abdomen: Soft, obese, no pain behaviors with palpation Skin: Warm and dry, Neurologic: Moving all extremities, confusion appreciated Extremities: No trauma, Course Orders Ordered: ED Orders 03/14/24 11:56 Urinalysis and Microscopic Stat BiPAP Ventilatory Support RT PROTOCOL 03/14/24 12:09 Venous Blood Gas Routine 03/14/24 12:10 Respiratory Panel (Film Array) Stat 03/14/24 12:36 EKG-12 Lead Stat 03/14/24 12:38 Blood Culture Stat Complete Blood Count AUTO DIFF Stat Comprehensive Metabolic Panel Stat Lactate (Lactic Acid) Stat NT-proBNP (BNP-Adult 18+) Stat Procalcitonin Stat Troponin I Stat 03/14/24 13:00 Consult to DIRECTOR WEB - Roll Operator Stat 03/14/24 14:21 XR chest 1V Stat 03/14/24 15:42 EKG-12 Lead Stat 03/14/24 16:38 VBG [Venous Blood Gas] STAT 03/14/24 16:59 Venous Blood Gas Routine Acetaminophen (Acetaminophen 325 Mg Tablet) 650 mg PO Q6H PRN PRN Reason: Fever/Mild Pain (1-3) Heparin Sodium (Porcine) (Heparin 5,000 Unit/Ml Vial) 5,000 unit SUBCUT BID JAY JAY Dextrose (D10w) 100 mls @ 999 mls/hr IV PRN PRN PRN Reason: Hypoglycemia Insulin Glargine (Insulin Glargine 100 Unit/Ml 3ml Pen) 22 unit SUBCUT 0800 JAY JAY Insulin Human Lispro (Insulin Lispro 100 Unit/Ml 3ml Vial) 0 unit SUBCUT ACHS JAY JAY; Protocol Naloxone HCl (Naloxone 0.4 Mg/Ml Vial) 0.2 mg IV Q2MIN PRN PRN Reason: Opiate Reversal Vital Signs Vital signs: Vital Signs - 8 hr 03/14/24 11:55 03/14/24 12:00 03/14/24 12:00 Temperature Pulse Rate 57 L 71 Respiratory Rate 24 Blood Pressure 126/94 H Pulse Oximetry 89 L 94 Oxygen Delivery Method Oxygen Flow Rate Fraction of Inspired Oxygen 03/14/24 12:18 03/14/24 12:29 03/14/24 12:30 Temperature 97.0 F L Pulse Rate 71 64 Respiratory Rate 20 25 H Blood Pressure 126/94 H Pulse Oximetry 93 94 Oxygen Delivery Method Nasal Cannula BiPAP Oxygen Flow Rate 4 Fraction of Inspired Oxygen 0.40 03/14/24 13:00 03/14/24 13:03 03/14/24 13:03 Temperature Pulse Rate 60 60 Respiratory Rate 23 24 Blood Pressure 103/70 Pulse Oximetry 95 94 Oxygen Delivery Method Oxygen Flow Rate Fraction of Inspired Oxygen 03/14/24 13:30 03/14/24 14:00 03/14/24 14:22 Temperature Pulse Rate 57 L 56 L Respiratory Rate Blood Pressure 88/56 L 109/69 Pulse Oximetry 95 93 Oxygen Delivery Method BiPAP BiPAP Oxygen Flow Rate Fraction of Inspired Oxygen 0.40 12/26/24 14:30 03/14/24 15:00 03/14/24 15:15 Temperature Pulse Rate 56 L 58 L 66 Respiratory Rate 36 H Blood Pressure 122/79 114/67 124/75 Pulse Oximetry 95 93 90 L Oxygen Delivery Method BiPAP BiPAP BiPAP Oxygen Flow Rate Fraction of Inspired Oxygen 03/14/24 15:30 03/14/24 15:45 03/14/24 16:00 Temperature Pulse Rate 66 63 60 Respiratory Rate 36 H 26 H 28 H Blood Pressure 145/92 H 125/80 126/59 L Pulse Oximetry 87 L 90 L 91 Oxygen Delivery Method BiPAP BiPAP BiPAP Oxygen Flow Rate Fraction of Inspired Oxygen 03/14/24 16:15 Temperature Pulse Rate 61 Respiratory Rate 25 H Blood Pressure 115/77 Pulse Oximetry 89 L Oxygen Delivery Method BiPAP Oxygen Flow Rate Fraction of Inspired Oxygen Medical Decision Making Lab Data 03/14/24 12:38 03/14/24 12:38 Labs: Lab Results 03/14/24 03/14/24 03/14/24 Range/Units 12:09 12:10 12:38 WBC 8.5 (4.5-11.0) X10^3/uL RBC 3.75 L (4.0-5.2) X10^6/uL Hgb 12.5 (12.0-16.0) g/dL Hct 39.8 (36-46) % MCV 106.1 H (80-100) fL MCH 33.4 (26-34) PG MCHC 31.4 (30-36) % RDW 18.3 H (11.6-14.8) % Plt Count 262 (150-400) X10^3/uL Neut % (Auto) 69.2 (50-75) % Lymph % (Auto) 20.5 L (25-40) % [place] % (Auto) 8.2 (3-14) % Eos % (Auto) 0.9 L (2-4) % Baso % (Auto) 1.2 (0-2) % Neut # (Auto) 5900 (9639-1961) /uL Lymph # (Auto) 1700 (5781-2395) /uL [place] # (Auto) 700 (0-900) /uL Eos # (Auto) 100 (0-450) /uL Baso # (Auto) 100 (0-100) /uL VBG pH 7.22 L (7.33-7.43) VBG pCO2 > 50.0 H (45-50) mmHg VBG pO2 31 L (35-45) mmHg VBG HCO3 43 H (24-28) mmol/L VBG Total CO2 44 H (24-29) mmol/L VBG O2 Saturation 44 L (70-75) % VBG Base Excess 10.7 H (0-4) mmol/L FiO2 % % Sodium 142 (137-145) mmol/L Potassium 4.3 (3.4-5.1) mmol/L Chloride 100 (98-107) mmol/L Carbon Dioxide 37 H (22-32) mmol/L BUN 48 H (7-17) mg/dL Creatinine 1.98 H (0.52-1.04) mg/dL Estimated GFR 28 L (>60) mL/min BUN/Creatinine Ratio 24.2 H (6-22) Glucose 91 (80-110) mg/dL Lactate 1.0 (0.7-2.1) mmol/L Calcium 10.0 (8.4-10.2) mg/dL Total Bilirubin 0.5 (0.2-1.3) mg/dL AST 32 (14-36) IU/L ALT 28 (<35) IU/L Alkaline Phosphatase 56 (38-126) U/L Troponin I 0.069 H (0.01-0.034) ng/mL NT-Pro-B Natriuret Pep 8280 H (<125) pg/mL Total Protein 6.8 (6.3-8.2) g/dL Albumin 3.8 (3.5-5.0) g/dL Globulin 3.0 (1.7-4.1) g/dL Albumin/Globulin Ratio 1.3 (1.0-2.8) Procalcitonin 0.250 (<0.5) ng/mL Chlamy pneumoniae PCR Not detected (Not Detect) Adenovirus (PCR) Not detected (Not Detect) B. pertussis DNA (PCR) Not detected (Not Detect) B.parapertussis DNA PCR Not detected (Not Detecte) Coronavirus OC43 (PCR) Not detected (Not Detect) Coronavirus HKU1 (PCR) Not detected (Not Detect) Coronavirus 229E (PCR) Not detected (Not Detect) SARS-CoV-2 (PCR) Not detected (Not Detecte) Coronavirus NL63 (PCR) Not detected (Not Detect) Human Metapneumovir PCR Not detected (Not Detect) Influenza Type A (PCR) Not detected (Not Detect) Influenza Type B (PCR) Not detected (Not Detect) M. pneumoniae (PCR) Not detected (Not Detect) Parainfluenza 1 (PCR) Not detected (Not Detect) Parainfluenza 2 (PCR) Not detected (Not Detect) Parainfluenza 3 (PCR) Not detected (Not Detect) Parainfluenza 4 (PCR) Not detected (Not Detect) RSV (PCR) Not detected (Not Detect) Entero/Rhino (PCR) Not detected (Not Detect) 03/14/24 Range/Units 16:59 WBC (4.5-11.0) X10^3/uL RBC (4.0-5.2) X10^6/uL Hgb (12.0-16.0) g/dL Hct (36-46) % MCV (80-100) fL MCH (26-34) PG MCHC (30-36) % RDW (11.6-14.8) % Plt Count (150-400) X10^3/uL Neut % (Auto) (50-75) % Lymph % (Auto) (25-40) % [place] % (Auto) (3-14) % Eos % (Auto) (2-4) % Baso % (Auto) (0-2) % Neut # (Auto) (7190-2347) /uL Lymph # (Auto) (6382-3734) /uL [place] # (Auto) (0-900) /uL Eos # (Auto) (0-450) /uL Baso # (Auto) (0-100) /uL VBG pH 7.28 L (7.33-7.43) VBG pCO2 > 50.0 H (45-50) mmHg VBG pO2 33 L (35-45) mmHg VBG HCO3 42 H (24-28) mmol/L VBG Total CO2 41 H (24-29) mmol/L VBG O2 Saturation 52 L (70-75) % VBG Base Excess 10.6 H (0-4) mmol/L FiO2 % 50.0 % % Sodium (137-145) mmol/L Potassium (3.4-5.1) mmol/L Chloride (98-107) mmol/L Carbon Dioxide (22-32) mmol/L BUN (7-17) mg/dL Creatinine (0.52-1.04) mg/dL Estimated GFR (>60) mL/min BUN/Creatinine Ratio (6-22) Glucose (80-110) mg/dL Lactate (0.7-2.1) mmol/L Calcium (8.4-10.2) mg/dL Total Bilirubin (0.2-1.3) mg/dL AST (14-36) IU/L ALT (<35) IU/L Alkaline Phosphatase (38-126) U/L Troponin I (0.01-0.034) ng/mL NT-Pro-B Natriuret Pep (<125) pg/mL Total Protein (6.3-8.2) g/dL Albumin (3.5-5.0) g/dL Globulin (1.7-4.1) g/dL Albumin/Globulin Ratio (1.0-2.8) Procalcitonin (<0.5) ng/mL Chlamy pneumoniae PCR (Not Detect) Adenovirus (PCR) (Not Detect) B. pertussis DNA (PCR) (Not Detect) B.parapertussis DNA PCR (Not Detecte) Coronavirus OC43 (PCR) (Not Detect) Coronavirus HKU1 (PCR) (Not Detect) Coronavirus 229E (PCR) (Not Detect) SARS-CoV-2 (PCR) (Not Detecte) Coronavirus NL63 (PCR) (Not Detect) Human Metapneumovir PCR (Not Detect) Influenza Type A (PCR) (Not Detect) Influenza Type B (PCR) (Not Detect) M. pneumoniae (PCR) (Not Detect) Parainfluenza 1 (PCR) (Not Detect) Parainfluenza 2 (PCR) (Not Detect) Parainfluenza 3 (PCR) (Not Detect) Parainfluenza 4 (PCR) (Not Detect) RSV (PCR) (Not Detect) Entero/Rhino (PCR) (Not Detect) MDM Narrative Medical decision making narrative: CC: Confusion increasing respiratory distress Complicating co-morbidities: Multiple recent admissions, chronic hypoxic respiratory failure, BiPAP dependent and does want to use BiPAP. Currently at [facility] and declining BiPAP use Data collected from: Medics, discussed with Respiratory therapy who has recently seen her in the hospital, hospitalist is recently evaluated her in the hospital, patient is too confused to offer additional supporting history Social determinants of health that may influence the patients condition: BiPAP dependent and not willing to use BiPAP Medical records reviewed: Discharge from the hospital for hypercapnic respiratory failure on March 11, discharged [facility] March [facility] at [facility] for [facility] and back to her severe hypercapnic respiratory failure Differential considered: BiPAP noncompliance, new pneumonia, new viral etiology, acute coronary syndrome, congestive heart failure, morbid obesity with hypoventilation syndrome and chronic respiratory failure Exam documented above, pertinent findings include: Morbidly obese, confused globally weak, body habitus makes pulmonary exam are challenging, no obvious murmurs appreciated abdomen is soft Lab Test results independently reviewed as above. Pertinent findings: CBC shows no leukocytosis no anemia Metabolic panel shows increased creatinine up to 1.98. Normal potassium. Normal liver studies. Troponin is 0.069 which seems to be lower than her baseline ProBNP is 8280, slightly below prior numbers Procalcitonin is not elevated VBG: Initial CO2 is 108, after 5 hours on BiPAP is down to 89 Independently reviewed EKG: Sinus rhythm with sinus arrhythmia, acute ischemic changes appreciated Imaging studies independently reviewed: Continued left pleural effusion unchanged, no pneumothorax, no obvious pneumonia/infiltrates Consultations: DIRECTOR WEB involvement. Phone calls [facility] to [facility]. Apparently staff does not feel they can force her to keep her BiPAP on and she continues to take it off. Treatments: Restarted on BiPAP. There was no evidence of acute infection and antibiotics were not initiated. With her increase in creatinine fluids were considered however her elevated BNP and congestive heart failure suggest holding fluids, no fluids were given. Discussion: 63-year-old woman with chronic hypercarbic hypoxic respiratory failure BiPAP and essentially hospital dependent not interested in continuing her BiPAP increasing confusion with CO2 back up to 108, worsening renal function no signs of infection, sepsis, acute coronary syndrome. Baseline congestive heart failure not significantly exacerbated. Discussed with hospitalist on arrival at this point she is unstable enough that transfer back to [facility] this evening is not like going to be a reasonable option. We will need to review again with [facility] staff importance of having her keep her BiPAP in place. We will need to discuss with the patient goals of care. If she does not want to continue BiPAP than that is a reasonable choice but is not compatible with life for her at this time. Hospice may be a reasonable discussion. She will be admitted to the hospitalist service overnight to continue discussions as above Discharge Plan Departure Patient Disposition: Admitted as Observation Clinical Impression: Acute hypercapnic respiratory failure, PONCE (obstructive sleep apnea), Altered mental status, Acute on chronic kidney failure, CHF (congestive heart failure), Pleural effusion on left Admit Date/Time: 03/14/24 17:26 Admit Provider: Ramon Howard
[2024-03-14 12:11] LABS: Base Excess VBG 10.7 mmol/L (0-4); HCO3 VBG 43 mmol/L (24-28); Oxygen Saturation VBG 44 % (70-75); PO2 VBG 31 mmHg (35-45); Total CO2 VBG 44 mmol/L (24-29); pH VBG 7.22 (7.33-7.43)
--- NOTE | 2024-03-14 12:46 | EKG_ITS ---
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
[2024-03-14 12:55] LABS: Add Manual Diff / Slide Review NO; Basophils Absolute Auto 100 /uL (0-100); Basophils Percent Auto 1.2 % (0-2); Eosinophils Absolute Auto 100 /uL (0-450); Eosinophils Percent Auto 0.9 % (2-4); Hematocrit 39.8 % (36-46); Hemoglobin 12.5 g/dL (12.0-16.0); Lymphocytes Absolute Auto 1700 /uL (1100-4500); Lymphocytes Percent Auto 20.5 % (25-40); Mean Corpuscular HGB Conc 31.4 % (30-36); Mean Corpuscular Hemoglobin 33.4 PG (26-34); Mean Corpuscular Volume 106.1 fL (80-100); Monocytes Absolute Auto 700 /uL (0-900); Monocytes Percent Auto 8.2 % (3-14); Neutrophils Absolute Auto 5900 /uL (1500-7000); Neutrophils Percent Auto 69.2 % (50-75); Platelet Count 262 X10^3/uL (150-400); Red Blood Cell Count 3.75 X10^6/uL (4.0-5.2); Red Cell Distribution Width 18.3 % (11.6-14.8); White Blood Cell Count 8.5 X10^3/uL (4.5-11.0)
[2024-03-14 13:05] LABS: Adenovirus Not Detected (Not Detect); B. parapertussis Not Detected (Not Detecte); Bordetella pertussis Not Detected (Not Detect); Chlamydophila pneumoniae Not Detected (Not Detect); Coronavirus 229E Not Detected (Not Detect); Coronavirus HKU1 Not Detected (Not Detect); Coronavirus NL 63 Not Detected (Not Detect); Coronavirus OC43 Not Detected (Not Detect); Human Metapneumovirus Not Detected (Not Detect); Human Rhinovirus/Enterovirus Not Detected (Not Detect); Influenza A Not Detected (Not Detect); Influenza B Not Detected (Not Detect); Mycoplasma pneumoniae Not Detected (Not Detect); Parainfluenza Virus 1 Not Detected (Not Detect); Parainfluenza Virus 2 Not Detected (Not Detect); Parainfluenza Virus 3 Not Detected (Not Detect); Parainfluenza Virus 4 Not Detected (Not Detect); Respiratory Syncytial Virus Not Detected (Not Detect); SARS- CoV-2 Not Detected (Not Detecte)
[2024-03-14 13:09] LABS: Alanine Aminotransferase 28 IU/L (<35); Albumin 3.8 g/dL (3.5-5.0); Albumin Globulin Ratio 1.3 (1.0-2.8); Alkaline Phosphatase 56 U/L (38-126); Aspartate Aminotransferase 32 IU/L (14-36); BUN Creatinine Ratio 24.2 (6-22); Bilirubin Total 0.5 mg/dL (0.2-1.3); Blood Urea Nitrogen 48 mg/dL (7-17); Carbon Dioxide 37 mmol/L (22-32); Chloride 100 mmol/L (98-107); Estimated Glomerular Filt Rate 28 mL/min (>60); Glucose 91 mg/dL (80-110); HEMOLYSIS 21 (0-50); Potassium 4.3 mmol/L (3.4-5.1); Sodium 142 mmol/L (137-145); Total Protein 6.8 g/dL (6.3-8.2)
[2024-03-14 13:22] LABS: Troponin I 0.069 ng/mL (0.01-0.034)
[2024-03-14 13:47] LABS: NT-proBNP (BNP-Adult 18+) 8280 pg/mL (<125)
--- NOTE | 2024-03-14 14:21 | DI.RAD.S_ITS ---
PROCEDURE: XR CHEST 1V INDICATIONS: respiratory failure TECHNIQUE: One view of the chest was acquired. COMPARISON: Merged With [facility], CR, XR CHEST 1V, 03/08/2024, 13:58. FINDINGS: Surgical changes and devices: None. Lungs and pleura: Moderate left pleural effusion is seen. Atelectasis of left lower lobe is noted. No pneumothorax. Trace amount of right-sided pleural effusion is noted extending to minor fissure. No definite focal infiltrate. Mediastinum: Mediastinal contours appear normal. Heart size is normal. Bones and chest wall: No suspicious bony lesions. Overlying soft tissues appear unremarkable. IMPRESSION: Moderate left pleural effusion with left lower lobe atelectasis unchanged from prior study. No pneumothorax. Trace right pleural effusion extending to minor fissure. Dictated by: Nahid Sellers M.D. on 03/14/2024 at 14:52 Approved by: Nahid Sellers M.D. on 03/14/2024 at 14:53
[2024-03-14 14:45] LABS: PCO2 VBG > 50.0 mmHg (45-50)
--- NOTE | 2024-03-14 15:42 | EKG_ITS ---
[address] [address] Test Date: 2024-03-14 Pat Name: Mary Carmen Jett Department: 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
--- NOTE | 2024-03-14 16:14 | PC.NURSE ---
Pt resting in bed. Tolerating bipap. Arrousable and follows commands. Denies pain.
--- NOTE | 2024-03-14 16:39 | PC.NURSE ---
Pt repositioned to right side, pillow support, upright.
[2024-03-14 17:02] LABS: Base Excess VBG 10.6 mmol/L (0-4); HCO3 VBG 42 mmol/L (24-28); Oxygen Saturation VBG 52 % (70-75); PO2 VBG 33 mmHg (35-45); Total CO2 VBG 41 mmol/L (24-29); pH VBG 7.28 (7.33-7.43)
[2024-03-14 17:07] LABS: PCO2 VBG > 50.0 mmHg (45-50)
--- NOTE | 2024-03-14 17:55 | PM.HP.1 ---
History of Present Illness History of Present Illness Date Patient Seen: 03/14/24 Time Patient Seen: 17:55 Chief complaint: Illness Narrative: The patient is a 62-year-old female who again was just recently discharged and now presents with recurrent hypercarbic respiratory failure. This appears relate to her resistance to using her BiPAP at her nursing facility. When she was last admitted, there was no new or concurrent illness identified. She has ongoing compliance issues. She was seen in the ED and initially had a CO2 over 100, and after BiPAP for 2 hours was still above 80. Given the time of day, 5:00 p.m., it seems that we will have to observe her overnight and continue to ventilate her and then discuss level of care with her in the morning. Compliance and recurrent admissions are not serving her best interest. Labs reveal a new BLANCA with a creatinine 1.98 with her creatinine of 1.45 on the day of her recent discharge and a creatinine of 1.03 on March 09. She initially says she thinks she was in the [facility] and then the [facility]. She initially says it is 2024 but then remembers it was [place] yesterday. She denies any pain or a feeling of shortness a breath. She does not recall exactly what happened prior to coming over here. REPLACED BY [facility] Medical History Chronic hypercapnic respiratory failure PONCE (obstructive sleep apnea) Chronic hypoxemic respiratory failure COPD (chronic obstructive pulmonary disease) DM2 (diabetes mellitus, type 2) HTN (hypertension) Thyroiditis Systolic and diastolic CHF, chronic Obesity Surgical History S/P hernia surgery Family History Mother No pertinent past medical history Father No pertinent past medical history Social History household members: other Smoking Status: Former smoker alcohol intake: former Meds Home Medications and Allergies Home Medications Medication Instructions Recorded Confirmed Type acetaminophen 325 mg tablet 650 mg PO TID 05/25/22 03/09/24 History (Tylenol) budesonide-formoterol HFA 160 2 puff inhalation Q4H PRN Wheezing 05/25/22 03/09/24 History mcg-4.5 mcg/actuation aerosol inhaler cyanocobalamin (vitamin B-12) 500 500 mcg PO DAILY 05/25/22 03/09/24 History mcg tablet fenofibrate 160 mg tablet 160 mg PO BEDTIME 05/25/22 03/09/24 History fluoxetine 20 mg tablet 20 mg PO DAILY 05/25/22 03/09/24 History fluticasone propionate 50 2 spray intranasal DAILY 05/25/22 03/09/24 History mcg/actuation nasal spray,suspension gabapentin 300 mg capsule 300 mg PO BEDTIME 05/25/22 03/09/24 History insulin lispro 100 unit/mL See Protocol SUBCUT TIDWM 05/25/22 03/09/24 History subcutaneous solution (Humalog U-100 Insulin) loratadine 10 mg tablet 10 mg PO DAILY 05/25/22 03/09/24 History magnesium oxide 200 mg PO BID 05/25/22 03/09/24 History montelukast 10 mg tablet 10 mg PO DAILY 05/25/22 03/09/24 History ondansetron 4 mg disintegrating 4 mg PO Q8H PRN Nausea 05/25/22 03/09/24 History tablet rosuvastatin 40 mg tablet 40 mg PO DAILY 05/25/22 03/09/24 History sennosides 8.6 mg tablet (senna) 17.2 mg PO BEDTIME 05/25/22 03/09/24 History tiotropium bromide 18 mcg capsule 1 cap inhalation DAILY 05/25/22 03/09/24 History with inhalation device (Spiriva with HandiHaler) trazodone 50 mg tablet 50 mg PO BEDTIME 05/25/22 03/09/24 History albuterol sulfate 90 mcg/actuation 4 puff inhalation Q4H PRN 08/15/22 03/09/24 History aerosol inhaler Shortness Of Breath Or Wheezing levothyroxine 175 mcg tablet 175 mcg PO DAILY 08/15/22 03/09/24 History potassium chloride 10 mEq 20 meq PO DAILY 08/15/22 03/09/24 History tablet,extended release torsemide 10 mg tablet 30 mg PO BEDTIME 05/20/23 03/09/24 History albuterol sulfate 2.5 mg/3 mL 2.5 mg inhalation Q6H PRN 10/24/23 03/09/24 History (0.083 %) solution for nebulization wheezing/cough docusate sodium 100 mg capsule 100 mg PO BID Constipation 10/24/23 03/09/24 History insulin lispro 100 unit/mL 6 unit SUBCUT AC 10/24/23 03/09/24 History subcutaneous pen ipratropium 0.5 mg-albuterol 3 mg 3 ml inhalation Q4H PRN COPD 10/24/23 03/09/24 History (2.5 mg base)/3 mL nebulization soln polyethylene glycol 3350 17 gram 17 g PO DAILY 10/24/23 03/09/24 History oral powder packet (Miralax) bupropion HCl 100 mg tablet,12 hr 100 mg PO BID 10/31/23 03/09/24 History sustained-release apixaban 5 mg tablet 5 mg PO BID 02/28/24 03/09/24 History empagliflozin 10 mg tablet 10 mg PO DAILY 02/28/24 03/09/24 History (Jardiance) insulin glargine 100 unit/mL (3 22 unit SUBCUT QAM 02/28/24 03/09/24 History mL) subcutaneous pen liraglutide 0.6 mg/0.1 mL (18 mg/3 1.2 mg SUBCUT DAILY 02/28/24 03/09/24 History mL) subcutaneous pen injector metoprolol succinate 25 mg 25 mg PO BID 02/28/24 03/09/24 History tablet,extended release 24 hr prednisone 10 mg tablet 12.5 mg PO DAILY 02/28/24 03/09/24 History insulin glargine 100 unit/mL (3 14 unit (0.14 mL) SUBCUT QPM #50 mL 03/06/24 03/09/24 Rx mL) subcutaneous pen acetazolamide 250 mg tablet 250 mg PO BID #60 tabs 03/11/24 Rx Allergies Allergy/AdvReac Type Severity Reaction Status Date / Time No Known Drug Allergies Allergy Verified 03/14/24 12:18 Review of Systems Review of Systems Narrative: All else reviewed and otherwise unremarkable except as noted in the history and physical. Exam Vital Signs (past 8 hours): - 03/14/24 11:55 03/14/24 12:00 03/14/24 12:00 Temperature Pulse Rate 57 L 71 Respiratory Rate 24 Blood Pressure 126/94 H Pulse Oximetry 89 L 94 Oxygen Delivery Method Oxygen Flow Rate Fraction of Inspired Oxygen 03/14/24 12:18 03/14/24 12:29 03/14/24 12:30 Temperature 97.0 F L Pulse Rate 71 64 Respiratory Rate 20 25 H Blood Pressure 126/94 H Pulse Oximetry 93 94 Oxygen Delivery Method Nasal Cannula BiPAP Oxygen Flow Rate 4 Fraction of Inspired Oxygen 0.40 03/14/24 13:00 03/14/24 13:03 03/14/24 13:03 Temperature Pulse Rate 60 60 Respiratory Rate 23 24 Blood Pressure 103/70 Pulse Oximetry 95 94 Oxygen Delivery Method Oxygen Flow Rate Fraction of Inspired Oxygen 03/14/24 13:30 03/14/24 14:00 03/14/24 14:22 Temperature Pulse Rate 57 L 56 L Respiratory Rate Blood Pressure 88/56 L 109/69 Pulse Oximetry 95 93 Oxygen Delivery Method BiPAP BiPAP Oxygen Flow Rate Fraction of Inspired Oxygen 0.40 03/14/24 14:30 03/14/24 15:00 03/14/24 15:15 Temperature Pulse Rate 56 L 58 L 66 Respiratory Rate 36 H Blood Pressure 122/79 114/67 124/75 Pulse Oximetry 95 93 90 L Oxygen Delivery Method BiPAP BiPAP BiPAP Oxygen Flow Rate Fraction of Inspired Oxygen 03/14/24 15:30 03/14/24 15:45 03/14/24 16:00 Temperature Pulse Rate 66 63 60 Respiratory Rate 36 H 26 H 28 H Blood Pressure 145/92 H 125/80 126/59 L Pulse Oximetry 87 L 90 L 91 Oxygen Delivery Method BiPAP BiPAP BiPAP Oxygen Flow Rate Fraction of Inspired Oxygen 03/14/24 16:15 Temperature Pulse Rate 61 Respiratory Rate 25 H Blood Pressure 115/77 Pulse Oximetry 89 L Oxygen Delivery Method BiPAP Oxygen Flow Rate Fraction of Inspired Oxygen Fraction of Inspired Oxygen 0.40 Oxygen Delivery Method BiPAP Oxygen Flow Rate 4 Narrative Exam Narrative: NAD, alert and oriented, fluent speech, calm. Morbidly obese. Normocephalic skull, EOMI, anicteric sclera, symmetric pupils. Oropharynx unremarkable, no droop. Neck supple, midline trachea, no adenopathy. Lungs clear, normal rate and effort. Heart regular, no murmur gallop or rub. Abdomen is soft, non distended and non tender. Extremities are free of edema. Skin is free of rash or lesions. Joints are not swollen or deformed. Judgment appears to be normal. Objective ECG Impression: Sinus rhythm with marked sinus arrhythmia Right superior axis deviation Nonspecific intraventricular conduction delay Junctional ST depression, probably normal Prolonged QT Bad baseline on tracing Imaging Chest x-ray: Radiologist's impression: Moderate left pleural effusion with left lower lobe atelectasis unchanged from prior study. No pneumothorax. Trace right pleural effusion extending to minor fissure. Labs 03/14/24 12:38 03/14/24 12:38 Labs: Laboratory Results - last 24 hr 03/14/24 03/14/24 03/14/24 12:09 12:10 12:38 WBC 8.5 RBC 3.75 L Hgb 12.5 Hct 39.8 MCV 106.1 H MCH 33.4 MCHC 31.4 RDW 18.3 H Plt Count 262 Neut % (Auto) 69.2 Lymph % (Auto) 20.5 L [place] % (Auto) 8.2 Eos % (Auto) 0.9 L Baso % (Auto) 1.2 Neut # (Auto) 5900 Lymph # (Auto) 1700 [place] # (Auto) 700 Eos # (Auto) 100 Baso # (Auto) 100 VBG pH 7.22 L VBG pCO2 > 50.0 H VBG pO2 31 L VBG HCO3 43 H VBG Total CO2 44 H VBG O2 Saturation 44 L VBG Base Excess 10.7 H FiO2 % Sodium 142 Potassium 4.3 Chloride 100 Carbon Dioxide 37 H BUN 48 H Creatinine 1.98 H Estimated GFR 28 L BUN/Creatinine Ratio 24.2 H Glucose 91 Lactate 1.0 Calcium 10.0 Total Bilirubin 0.5 AST 32 ALT 28 Alkaline Phosphatase 56 Troponin I 0.069 H NT-Pro-B Natriuret Pep 8280 H Total Protein 6.8 Albumin 3.8 Globulin 3.0 Albumin/Globulin Ratio 1.3 Procalcitonin 0.250 Chlamy pneumoniae PCR Not detected Adenovirus (PCR) Not detected B. pertussis DNA (PCR) Not detected B.parapertussis DNA PCR Not detected Coronavirus OC43 (PCR) Not detected Coronavirus HKU1 (PCR) Not detected Coronavirus 229E (PCR) Not detected SARS-CoV-2 (PCR) Not detected Coronavirus NL63 (PCR) Not detected Human Metapneumovir PCR Not detected Influenza Type A (PCR) Not detected Influenza Type B (PCR) Not detected M. pneumoniae (PCR) Not detected Parainfluenza 1 (PCR) Not detected Parainfluenza 2 (PCR) Not detected Parainfluenza 3 (PCR) Not detected Parainfluenza 4 (PCR) Not detected RSV (PCR) Not detected Entero/Rhino (PCR) Not detected 03/14/24 16:59 WBC RBC Hgb Hct MCV MCH MCHC RDW Plt Count Neut % (Auto) Lymph % (Auto) Marathon % (Auto) Eos % (Auto) Baso % (Auto) Neut # (Auto) Lymph # (Auto) [place] # (Auto) Eos # (Auto) Baso # (Auto) VBG pH 7.28 L VBG pCO2 > 50.0 H VBG pO2 33 L VBG HCO3 42 H VBG Total CO2 41 H VBG O2 Saturation 52 L VBG Base Excess 10.6 H FiO2 % 50.0 % Sodium Potassium Chloride Carbon Dioxide BUN Creatinine Estimated GFR BUN/Creatinine Ratio Glucose Lactate Calcium Total Bilirubin AST ALT Alkaline Phosphatase Troponin I NT-Pro-B Natriuret Pep Total Protein Albumin Globulin Albumin/Globulin Ratio Procalcitonin Chlamy pneumoniae PCR Adenovirus (PCR) B. pertussis DNA (PCR) B.parapertussis DNA PCR Coronavirus OC43 (PCR) Coronavirus HKU1 (PCR) Coronavirus 229E (PCR) SARS-CoV-2 (PCR) Coronavirus NL63 (PCR) Human Metapneumovir PCR Influenza Type A (PCR) Influenza Type B (PCR) M. pneumoniae (PCR) Parainfluenza 1 (PCR) Parainfluenza 2 (PCR) Parainfluenza 3 (PCR) Parainfluenza 4 (PCR) RSV (PCR) Entero/Rhino (PCR) Assessment & Plan Assessment & Plan narrative: 1. Acute hypercarbic and hypoxic respiratory failure, present on admission and active. 2. Acute metabolic encephalopathy, present on admission and active. 3. Recent ESBL UTI with septic shock with discharge on March 06, not present on admission are active. 4. PAF, present on admission and active. 5. COPD, present on admission and stable. 6. Chronic systolic heart failure, present on admission and active. 7. DM 2, present on admission and stable. 8. Chronic kidney disease with baseline creatinine 1.3, present on admission and active. 9. Hypothyroidism, present on admission and active. 10. Morbid obesity with BMI of 54, present on admission and active. 11. BLANCA, present on admission and active. Plan: -BiPAP and oxygen support overnight. Anticipate that she will be on BiPAP till tomorrow morning. We will follow her clinically. -monitor for infection. -monitor fluid status with her IV fluids as she does have systolic heart failure. Follow renal function. -correctional lispro for tonight. Eltonus 22 QAM Level of care discussion tomorrow MYRIAM: 03/12 Based on previous records she is full code. DVT prophylaxis will be Lovenox until she was able to resume her apixaban. Her daughters are surrogate decision maker. Time-Based Coding :: [TOTAL MINUTES] spent with patient and on the chart (including review of chart, obtaining history, exam, reviewing outside data, placing orders, documenting exam and treatment plan, and counseling patient) on [DATE].
--- NOTE | 2024-03-14 17:59 | PC.NURSE ---
Addendum entered by Che Gerardo R.N. 03/14/24 17:59: Bipap continues at 50%. Pt tolerating and o2 sat remains at 92. Awaiting bed for patient. Original Note: Patient resting in bed in position of comfort. Currently denies complaints. Bipap continues a
--- NOTE | 2024-03-14 18:16 | CM.IDA ---
Initial DCP Assessment Note Patient is 63 y/o female who presents to ED via EMS due to concern for AMS and respiratory difficulty. This is patient's third admission for this issue in the last month. Most recently patient was admitted from 03/08/24-03/11/24 and discharged back to [facility]. There are concerns that patient is not using her trilogy BIPAP machine. Patient's PCP is Karin Payan ([facility]), patient has [employer] and Medicaid insurance. This DIRECTOR PUBLIC POLICY reviews EMR, patient is a shelter resident at [facility] with plans to return. Patient's DPOA is daughter Roxy who resides in [place], [place]. Patient is reliant on assistance with all ADLs at [facility], patient is full code. DIRECTOR PUBLIC POLICY calls [facility] to speak with director service regarding patient's care and [facility] and patient's BIPAP use, DIRECTOR PUBLIC POLICY leaves , call has not been returned after several hours. Plan: patient to d/c back to [facility] for LTC upon medical clearance, patient in need of more assistance with regular BIPAP use. JESSU Jane Discharge Planning/Care Management CM Discharge Assessment Start: 03/14/24 18:11 Freq: Status: Active Protocol: Document 03/14/24 18:12 LN (Rec: 03/14/24 18:16 LN [id number]) Discharge Planning Assessment Assigned Steel Wheel Engraver JESUS Chang DPOA/Assigned Designee Name Roxy Onofre, blaze ([place], [place]) Contact Information [phone] Advance Directives? Yes: POLST Advance Directives on File Yes: POLST on file - Full code History Provided By Medical Record Has Patient been admitted in last 30 Yes days? Comment 03/08-03/11 and 02/27-03/06 Prior Living Arrangements Skilled Nurse Facility Household Members other Type of transporation used prior to Relies on Others admit Facility Name Admitted From: [facility] Independent with ADL's No Is patient alert and oriented? No: unable to assess on bipap Needs Assistance With Bathing,Eating,Grooming,Meal Prep,Toileting,Managing Medications,Home Chores / Shopping Caregiver for Another No Comment Lives at [facility]. 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
[2024-03-14] MEDS: ALBUTEROL 2.5 MG/3 ML NEB (ADULT) INH (20:13)
[2024-03-14] MEDS: BUDESONIDE 0.5 MG/2 ML NEB INH (20:13)
[2024-03-14 20:51] LABS: MRSA (Nasal) PCR DETECTED (Not Detect)
[2024-03-14] MEDS: HEPARIN 5,000 UNIT/ML VIAL 5000 UNIT SUBCUT (20:56)
[2024-03-14] MEDS: DEXTROSE 10 % IN WATER 100 ML 999 ML IV ×2 (21:40→21:52)
[2024-03-14] MEDS: SODIUM CHLORIDE 0.9% FLUSH 10 ML IV (21:42)
--- NOTE | 2024-03-14 22:51 | PC.NURSE ---
Addendum entered by Marni Walsh R.N. 03/15/24 01:40: 2300 CBG 88, MN 60, another D10 100ml given per protocol, Hospitalist notified, 1 amp D50 ordered and given. CBG now 183. Will continue to monitor. Bipap pressures changed to 14/6 r/t hypotension, tolerating well. Original Note: Brim Setter Notes-Patient drowsy, wearing Bipap set at 40% FIO2 16/5, RR 12, SpO2 88-94%. Aware of situation, follows simple commands. HS CBG 40, D10 100mls given per protocol, rechecked-65, another D10 100mls given, patient rouses, but sleepy, Bipap remains in place. Will continue to monitor.
[2024-03-15] VITALS (62 sets, daily range): BP systolic 81–125; BP diastolic 51–90; PULSE 54–90; RESP 16–38; TEMP 30.8–36.3; O2SAT 86–99
[2024-03-15] MEDS: DEXTROSE 10 % IN WATER 100 ML 999 ML IV ×2 (00:18→06:39)
[2024-03-15] MEDS: DEXTROSE 50 % IN WATER 25 GM/50 ML SYRINGE IV (01:00)
[2024-03-15 04:59] LABS: Allen Test for ABG Passed? Positive; Base Excess ABG 11.3 mmol/L (-2-3); Blood Gas Collection Site Left Radial; Blood Gas Mode Bi-Level Ventilation; Delivery System BiPAP; HCO3 ABG 40 mmol/L (23-27); Oxygen Saturation ABG 93 % (95-100); PCO2 ABG 70.4 mmHg (35-45); PO2 ABG 74 mmHg (80-100); Respiratory Rate 12; TCO2 ABG 39 mmol/L (23-27); pH ABG 7.36 (7.35-7.45)
[2024-03-15] MEDS: ALBUTEROL/IPRATROPIUM 3 ML AMPUL INH ×2 (07:47→11:54)
[2024-03-15] MEDS: BUDESONIDE 0.5 MG/2 ML NEB INH ×2 (07:47→19:41)
[2024-03-15] MEDS: HEPARIN 5,000 UNIT/ML VIAL 5000 UNIT SUBCUT (08:28)
[2024-03-15] MEDS: SODIUM CHLORIDE 0.9% FLUSH 10 ML IV ×2 (09:00→21:35)
[2024-03-15] MEDS: INSULIN LISPRO 100 UNIT/ML 3ML VIAL SUBCUT ×2 (12:04→17:42)
--- NOTE | 2024-03-15 12:58 | PM.PN.1 ---
Subjective Subjective Date Patient Seen: 03/15/24 Time Patient Seen: 08:10 Interval history: The patient is a 62-year-old female who again was just recently discharged and now presents with recurrent hypercarbic respiratory failure. This appears relate to her resistance to using her BiPAP at her nursing facility. When she was last admitted, there was no new or concurrent illness identified. She has ongoing compliance issues. She was seen in the ED and initially had a CO2 over 100, and after BiPAP for 2 hours was still above 80. Given the time of day, 5:00 p.m., it seems that we will have to observe her overnight and continue to ventilate her and then discuss level of care with her in the morning. Compliance and recurrent admissions are not serving her best interest. Labs reveal a new BLANCA with a creatinine 1.98 with her creatinine of 1.45 on the day of her recent discharge and a creatinine of 1.03 on March 09. She initially says she thinks she was in the [facility] and then the [facility]. She initially says it is 2024 but then remembers it was [place] yesterday. She denies any pain or a feeling of shortness a breath. She does not recall exactly what happened prior to coming over here. Interval history: Patient is awake, appears comfortable, states she understands that not wearing her BiPAP routinely has led to this hospitalization and expresses that she will be compliant in the future. She was hypoglycemic overnight. Exam Vital Signs (past 8 hours): - 03/15/24 05:00 03/15/24 05:00 03/15/24 05:30 Pulse Rate 59 L 57 L Respiratory Rate 31 H 25 H Blood Pressure 90/67 Pulse Oximetry 95 93 Oxygen Delivery Method Oxygen Flow Rate Fraction of Inspired Oxygen 03/15/24 06:00 03/15/24 06:00 03/15/24 06:30 Pulse Rate 57 L 63 Respiratory Rate 25 H 25 H Blood Pressure 93/62 Pulse Oximetry 93 94 Oxygen Delivery Method Oxygen Flow Rate Fraction of Inspired Oxygen 03/15/24 07:00 03/15/24 07:00 03/15/24 07:30 Pulse Rate 66 60 Respiratory Rate 27 H 25 H Blood Pressure 86/53 L Pulse Oximetry 95 95 Oxygen Delivery Method Oxygen Flow Rate Fraction of Inspired Oxygen 03/15/24 07:33 03/15/24 07:33 03/15/24 07:42 Pulse Rate 58 L Respiratory Rate 29 H Blood Pressure 81/51 L 81/51 L Pulse Oximetry 96 Oxygen Delivery Method Oxygen Flow Rate Fraction of Inspired Oxygen 40 03/15/24 07:47 03/15/24 08:00 03/15/24 08:00 Pulse Rate 62 59 L Respiratory Rate 26 H 24 Blood Pressure Pulse Oximetry 95 95 Oxygen Delivery Method BiPAP Nasal Cannula BiPAP Oxygen Flow Rate Fraction of Inspired Oxygen 40 03/15/24 08:00 03/15/24 08:30 03/15/24 09:00 Pulse Rate 71 70 Respiratory Rate 33 H 37 H Blood Pressure 125/90 Pulse Oximetry 94 92 Oxygen Delivery Method Oxygen Flow Rate Fraction of Inspired Oxygen 03/15/24 09:00 03/15/24 09:30 03/15/24 10:00 Pulse Rate 67 Respiratory Rate 29 H Blood Pressure 100/60 90/61 Pulse Oximetry 98 Oxygen Delivery Method Oxygen Flow Rate Fraction of Inspired Oxygen 03/15/24 10:00 03/15/24 10:30 03/15/24 11:00 Pulse Rate 61 64 64 Respiratory Rate 30 H 25 H 28 H Blood Pressure Pulse Oximetry 96 99 96 Oxygen Delivery Method Oxygen Flow Rate Fraction of Inspired Oxygen 03/15/24 11:00 03/15/24 11:30 03/15/24 11:54 Pulse Rate 72 90 Respiratory Rate 33 H 20 Blood Pressure 98/62 Pulse Oximetry 91 93 Oxygen Delivery Method Nasal Cannula Oxygen Flow Rate 3 Fraction of Inspired Oxygen 03/15/24 12:00 03/15/24 12:00 Pulse Rate 71 Respiratory Rate 26 H Blood Pressure 102/55 L Pulse Oximetry 91 Oxygen Delivery Method Oxygen Flow Rate Fraction of Inspired Oxygen Fraction of Inspired Oxygen 40 SaO2/FiO2 Ratio 237 Oxygen Delivery Method Nasal Cannula Oxygen Flow Rate 3 Narrative Exam Narrative: NAD, alert and oriented, fluent speech, calm. Morbidly obese. BiPAP mask in place Normocephalic skull, EOMI, anicteric sclera, symmetric pupils. Oropharynx unremarkable, no droop. Neck supple, midline trachea, no adenopathy. Lungs clear, normal rate and effort. Heart regular, no murmur gallop or rub. Abdomen is soft, non distended and non tender. Extremities are free of edema. Skin is free of rash or lesions. Joints are not swollen or deformed. Judgment appears to be normal. Objective Labs 03/14/24 12:38 03/14/24 12:38 Labs: Laboratory Results - last 24 hr 03/14/24 03/14/24 03/14/24 12:09 12:10 12:38 WBC 8.5 RBC 3.75 L Hgb 12.5 Hct 39.8 MCV 106.1 H MCH 33.4 MCHC 31.4 RDW 18.3 H Plt Count 262 Neut % (Auto) 69.2 Lymph % (Auto) 20.5 L Overton % (Auto) 8.2 Eos % (Auto) 0.9 L Baso % (Auto) 1.2 Neut # (Auto) 5900 Lymph # (Auto) 1700 Overton # (Auto) 700 Eos # (Auto) 100 Baso # (Auto) 100 ABG Sample Site ABG pH ABG pCO2 ABG pO2 ABG HCO3 ABG Total CO2 ABG O2 Saturation ABG Base Excess Ramon Test VBG pH VBG pCO2 > 50.0 H VBG pO2 VBG HCO3 VBG Total CO2 VBG O2 Saturation VBG Base Excess Respiration Rate O2 Delivery Device Mode of Support FiO2 % Sodium 142 Potassium 4.3 Chloride 100 Carbon Dioxide 37 H BUN 48 H Creatinine 1.98 H Estimated GFR 28 L BUN/Creatinine Ratio 24.2 H Glucose 91 Lactate 1.0 Calcium 10.0 Total Bilirubin 0.5 AST 32 ALT 28 Alkaline Phosphatase 56 Troponin I 0.069 H NT-Pro-B Natriuret Pep 8280 H Total Protein 6.8 Albumin 3.8 Globulin 3.0 Albumin/Globulin Ratio 1.3 Procalcitonin 0.250 Nasal Screen MRSA (PCR) Chlamy pneumoniae PCR Not detected Adenovirus (PCR) Not detected B. pertussis DNA (PCR) Not detected B.parapertussis DNA PCR Not detected Coronavirus OC43 (PCR) Not detected Coronavirus HKU1 (PCR) Not detected Coronavirus 229E (PCR) Not detected SARS-CoV-2 (PCR) Not detected Coronavirus NL63 (PCR) Not detected Human Metapneumovir PCR Not detected Influenza Type A (PCR) Not detected Influenza Type B (PCR) Not detected M. pneumoniae (PCR) Not detected Parainfluenza 1 (PCR) Not detected Parainfluenza 2 (PCR) Not detected Parainfluenza 3 (PCR) Not detected Parainfluenza 4 (PCR) Not detected RSV (PCR) Not detected Entero/Rhino (PCR) Not detected 03/14/24 03/14/24 03/15/24 16:59 19:00 04:41 WBC RBC Hgb Hct MCV MCH MCHC RDW Plt Count Neut % (Auto) Lymph % (Auto) Overton % (Auto) Eos % (Auto) Baso % (Auto) Neut # (Auto) Lymph # (Auto) Overton # (Auto) Eos # (Auto) Baso # (Auto) ABG Sample Site Left radial ABG pH 7.36 ABG pCO2 70.4 H* ABG pO2 74 L ABG HCO3 40 H ABG Total CO2 39 H ABG O2 Saturation 93 L ABG Base Excess 11.3 H Ramon Test Positive VBG pH 7.28 L VBG pCO2 > 50.0 H VBG pO2 33 L VBG HCO3 42 H VBG Total CO2 41 H VBG O2 Saturation 52 L VBG Base Excess 10.6 H Respiration Rate 12 O2 Delivery Device Bipap Mode of Support Bi-level ventilation FiO2 % 50.0 % 40 % Sodium Potassium Chloride Carbon Dioxide BUN Creatinine Estimated GFR BUN/Creatinine Ratio Glucose Lactate Calcium Total Bilirubin AST ALT Alkaline Phosphatase Troponin I NT-Pro-B Natriuret Pep Total Protein Albumin Globulin Albumin/Globulin Ratio Procalcitonin Nasal Screen MRSA (PCR) Detected H Chlamy pneumoniae PCR Adenovirus (PCR) B. pertussis DNA (PCR) B.parapertussis DNA PCR Coronavirus OC43 (PCR) Coronavirus HKU1 (PCR) Coronavirus 229E (PCR) SARS-CoV-2 (PCR) Coronavirus NL63 (PCR) Human Metapneumovir PCR Influenza Type A (PCR) Influenza Type B (PCR) M. pneumoniae (PCR) Parainfluenza 1 (PCR) Parainfluenza 2 (PCR) Parainfluenza 3 (PCR) Parainfluenza 4 (PCR) RSV (PCR) Entero/Rhino (PCR) [facility] Medical History Chronic hypercapnic respiratory failure Chronic hypoxemic respiratory failure COPD (chronic obstructive pulmonary disease) DM2 (diabetes mellitus, type 2) HTN (hypertension) Obesity PONCE (obstructive sleep apnea) Systolic and diastolic CHF, chronic Thyroiditis Surgical History S/P hernia surgery Family History Mother No pertinent past medical history Father No pertinent past medical history Social History household members: other Smoking Status: Former smoker alcohol intake: former Assessment & Plan Assessment & Plan narrative: 1. Acute hypercarbic and hypoxic respiratory failure, present on admission and active. 2. Acute metabolic encephalopathy, present on admission and active. 3. Recent ESBL UTI with septic shock with discharge on March 06, not present on admission. 4. PAF, present on admission and active. 5. COPD, present on admission and stable. 6. Chronic systolic heart failure, present on admission and active. 7. DM 2, present on admission and stable. 8. Chronic kidney disease with baseline creatinine 1.3, present on admission and active. 9. Hypothyroidism, present on admission and active. 10. Morbid obesity with BMI of 54, present on admission and active. 11. BLANCA, present on admission and active. Plan: -BiPAP and oxygen support overnight. -monitor for infection. -monitor blood sugars withr esuming diet. -monitor fluid status with her IV fluids as she does have systolic heart failure. Follow renal function. -appears medically stable for discharge today. We will coordinate with longterm. MYRIAM: 03/16 She clarifies full code status. DVT prophylaxis will be Lovenox until she was able to resume her apixaban. Her daughters are surrogate decision maker. Quality VTE Deep Vein Thrombosis/Pulmonary Embolism Present on Admission: No IH PROFEE Charge codes Subsequent inpatient/observation care: 12068
--- NOTE | 2024-03-15 14:27 | CM.DPNOTE ---
DCP note VIAL GAUGER reviewed EMR Per provider, cleared to return to home at . pt just needs to wear her trilogy at night. Per RN, pt presents as weaker/more fragile than previous admissions. Per Miladis at , due to already committing to multiple other admissions from today unable to accept her back. Transport set up for tomorrow. no PASRR needed due to it being her residence for LTC. P: anticipate return to tomorrow, time pending. CM team will continue to follow closely GA Han
[2024-03-15] MEDS: ACETAMINOPHEN 325 MG TABLET 650 MG PO (18:29)
[2024-03-15] MEDS: ALBUTEROL 2.5 MG/3 ML NEB (ADULT) INH (19:42)
[2024-03-15] MEDS: TRAZODONE 50 MG TABLET PO (21:18)
[2024-03-15] MEDS: FENOFIBRATE, MICRONIZED 67 MG CAPSULE 201 MG PO (21:18)
[2024-03-15] MEDS: GABAPENTIN 300 MG CAPSULE PO (21:19)
[2024-03-15] MEDS: buPROPion SR 100 MG TAB PO (21:19)
[2024-03-15] MEDS: MAGNESIUM OXIDE 400 MG TABLET 200 MG PO (21:32)
[2024-03-15] MEDS: HEPARIN 5,000 UNIT/ML VIAL 7500 UNIT SUBCUT (21:33)
[2024-03-16] VITALS (25 sets, daily range): BP systolic 95–115; BP diastolic 56–78; PULSE 62–88; RESP 16–43; TEMP 31–36.7; O2SAT 91–96
[2024-03-16] MEDS: BUDESONIDE 0.5 MG/2 ML NEB INH (06:48)
[2024-03-16] MEDS: ALBUTEROL/IPRATROPIUM 3 ML AMPUL INH ×2 (06:48→10:36)
[2024-03-16] MEDS: ACETAMINOPHEN 325 MG TABLET 650 MG PO (08:28)
[2024-03-16] MEDS: MAGNESIUM OXIDE 400 MG TABLET 200 MG PO (08:28)
[2024-03-16] MEDS: buPROPion SR 100 MG TAB PO (08:29)
[2024-03-16] MEDS: POTASSIUM CHLORIDE 10 MEQ TAB 20 MEQ PO (08:30)
[2024-03-16] MEDS: FLUoxetine 20 MG CAPSULE PO (08:30)
[2024-03-16] MEDS: LORATADINE 10 MG TABLET PO (08:30)
[2024-03-16] MEDS: ATORVASTATIN 20 MG TABLET 80 MG PO (08:30)
[2024-03-16] MEDS: MONTELUKAST 10 MG TABLET PO (08:30)
[2024-03-16] MEDS: INSULIN GLARGINE 100 UNIT/ML 3ML PEN 22 UNIT SUBCUT (08:33)
[2024-03-16] MEDS: HEPARIN 5,000 UNIT/ML VIAL 7500 UNIT SUBCUT (08:39)
[2024-03-16] MEDS: LEVOTHYROXINE 75 MCG TABLET PO (08:40)
[2024-03-16] MEDS: LEVOTHYROXINE 100 MCG TABLET PO (08:40)
--- NOTE | 2024-03-16 11:10 | PM.DS.1 ---
History of Present Illness History of Present Illness Date Patient Seen: 03/16/24 Time Patient Seen: 09:35 Date of Onset of Symptoms: 03/14/24 Chief complaint: Illness Narrative: The patient is a 62-year-old female who again was just recently discharged and now presents with recurrent hypercarbic respiratory failure. This appears relate to her resistance to using her BiPAP at her nursing facility. When she was last admitted, there was no new or concurrent illness identified. She has ongoing compliance issues. She was seen in the ED and initially had a CO2 over 100, and after BiPAP for 2 hours was still above 80. Given the time of day, 5:00 p.m., it seems that we will have to observe her overnight and continue to ventilate her and then discuss level of care with her in the morning. Compliance and recurrent admissions are not serving her best interest. Labs reveal a new BLANCA with a creatinine 1.98 with her creatinine of 1.45 on the day of her recent discharge and a creatinine of 1.03 on March 09. She initially says she thinks she was in the [facility] and then the [facility]. She initially says it is 2024 but then remembers it was [place] yesterday. She denies any pain or a feeling of shortness a breath. She does not recall exactly what happened prior to coming over here. Discharge Providers Provider Date of admission: 03/14/24 17:26 Discharge Date: 03/16/24 Primary care physician: Manish Vernon MD Consults: 03/14/24 13:00 Consult to [facility] - Dewaterer Operator Stat Comment: Dewaterer Operator Consult needed for:: Other reason (Comment) Discharge provider: Akbar Shepard MD Summary Hospital Course Discharge Diagnosis: 1. Acute hypercarbic and hypoxic respiratory failure, due to BiPAP noncompliance due to poor mask fit. 2. Acute metabolic encephalopathy, resolved. 3. Recent ESBL UTI with septic shock with discharge on March 06, not present on admission. 4. PAF. 5. COPD. 6. Chronic systolic heart failure. 7. DM 2. 8. Chronic kidney disease with baseline creatinine 1.3. 9. Hypothyroidism. 10. Morbid obesity with BMI of 54. 11. BLANCA, improving. Hospital Course: The patient was admitted and restarted on her usual BiPAP, which he had discontinued due to poor nasal mask fit, preferring instead a fullface mask instead of nasal prongs. She was hydrated and improved significantly clinically. She was interested in being compliant with a face mask BiPAP arrangement back at her assisted living facility. There was no evidence of infection or other factor that had precipitated her decompensation otherwise. No other issues arose. The patient acknowledged understanding, agreement and appreciation of this plan of care, and agreed to call back with any questions or concerns. Status at Discharge Cognitive/behavioral status at discharge: oriented Functional status at discharge: wheelchair bound Overall status at discharge: patient is progressing back to baseline Time Spent with Patient Time spent: Greater than 30 minutes Exam Vital Signs (past 8 hours): - 03/16/24 03:30 03/16/24 04:00 03/16/24 04:01 Temperature Pulse Rate 74 76 Respiratory Rate 27 H 29 H Blood Pressure 115/66 Pulse Oximetry 94 93 Oxygen Delivery Method Oxygen Flow Rate Fraction of Inspired Oxygen 03/16/24 04:01 03/16/24 04:30 03/16/24 05:00 Temperature 97.6 F Pulse Rate 80 75 Respiratory Rate 29 H 28 H Blood Pressure Pulse Oximetry 94 94 Oxygen Delivery Method Oxygen Flow Rate Fraction of Inspired Oxygen 03/16/24 05:00 03/16/24 05:00 03/16/24 05:01 Temperature Pulse Rate 79 82 Respiratory Rate 28 H 29 H Blood Pressure 106/78 Pulse Oximetry 91 92 Oxygen Delivery Method Oxygen Flow Rate Fraction of Inspired Oxygen 40 03/16/24 05:01 03/16/24 05:30 03/16/24 06:00 Temperature Pulse Rate 84 81 Respiratory Rate 32 H Blood Pressure 99/76 Pulse Oximetry 94 93 Oxygen Delivery Method Oxygen Flow Rate Fraction of Inspired Oxygen 03/16/24 06:00 03/16/24 06:30 03/16/24 07:00 Temperature Pulse Rate 70 Respiratory Rate 27 H Blood Pressure 106/78 Pulse Oximetry 95 Oxygen Delivery Method Nasal Cannula BiPAP Oxygen Flow Rate Fraction of Inspired Oxygen 03/16/24 07:00 03/16/24 07:00 03/16/24 07:30 Temperature Pulse Rate 76 75 Respiratory Rate 27 H 20 Blood Pressure 108/65 Pulse Oximetry 93 95 Oxygen Delivery Method Oxygen Flow Rate Fraction of Inspired Oxygen 03/16/24 08:00 03/16/24 08:00 03/16/24 08:01 Temperature 98.0 F Pulse Rate 78 67 Respiratory Rate 16 26 H Blood Pressure 114/60 107/56 L Pulse Oximetry 92 95 Oxygen Delivery Method Oxygen Flow Rate 3 Fraction of Inspired Oxygen 03/16/24 08:01 03/16/24 08:30 03/16/24 09:00 Temperature Pulse Rate 69 80 83 Respiratory Rate 27 H 28 H 43 H Blood Pressure Pulse Oximetry 95 94 91 Oxygen Delivery Method Oxygen Flow Rate Fraction of Inspired Oxygen 03/16/24 09:30 03/16/24 10:00 03/16/24 10:45 Temperature Pulse Rate 82 76 62 Respiratory Rate 29 H 22 Blood Pressure Pulse Oximetry 95 92 92 Oxygen Delivery Method Nasal Cannula Oxygen Flow Rate 2 Fraction of Inspired Oxygen Fraction of Inspired Oxygen 40 SaO2/FiO2 Ratio 237 Oxygen Delivery Method Nasal Cannula Oxygen Flow Rate 2 Narrative Exam Narrative: NAD, alert and oriented, fluent speech, calm. Morbidly obese. Normocephalic skull, EOMI, anicteric sclera, symmetric pupils. Oropharynx unremarkable, no droop. Neck supple, midline trachea, no adenopathy. Lungs clear, normal rate and effort. Heart regular, no murmur gallop or rub. Abdomen is soft, non distended and non tender. Extremities are free of edema. Skin is free of rash or lesions. Joints are not swollen or deformed. Judgment appears to be normal. Objective Imaging Chest x-ray: Radiologist's impression: Moderate left pleural effusion with left lower lobe atelectasis unchanged from prior study. No pneumothorax. Trace right pleural effusion extending to minor fissure. Labs 03/14/24 12:38 03/14/24 12:38 [facility] Medical History Chronic hypercapnic respiratory failure Chronic hypoxemic respiratory failure COPD (chronic obstructive pulmonary disease) DM2 (diabetes mellitus, type 2) HTN (hypertension) Obesity PONCE (obstructive sleep apnea) Systolic and diastolic CHF, chronic Thyroiditis Surgical History S/P hernia surgery Family History Mother No pertinent past medical history Father No pertinent past medical history Social History household members: other Smoking Status: Former smoker alcohol intake: former Discharge Plan Discharge Plan Patient Disposition: SNF Under care of provider: PCP; Check BMP in 1 week Provider Discharge Comment: Continue home BiPAP with full face mask I certify the postop hospital chcf care is medically necessary on a continuing basis for any conditions for which he/ she received care during this hospitalization.: Yes The receiving facility has agreed to accept transfer and provide medical treatment.: Yes Discharge orders & Medications Prescriptions: Continued albuterol sulfate 90 mcg/actuation HFA aerosol inhaler 4 puff INHALATION Q4H PRN (Reason: Shortness Of Breath Or Wheezing) levothyroxine 175 mcg tablet 175 mcg PO DAILY potassium chloride 10 mEq tablet extended release 20 meq PO DAILY torsemide 10 mg tablet 30 mg PO BEDTIME Rx Instructions: hold for SBP <100, HR <60 metoprolol succinate 25 mg Tablet Extended Release 24 Hr 25 mg PO BID Rx Instructions: hold if SBP <100, HR <80 insulin glargine 100 unit/mL (3 mL) Insulin Pen 22 unit SUBCUT QAM liraglutide 0.6 mg/0.1 mL (18 mg/3 mL) pen injector 1.2 mg SUBCUT DAILY Patient Comments: [NO ORIGINAL SIG] apixaban 5 mg Tablet 5 mg PO BID Jardiance 10 mg Tablet 10 mg PO DAILY prednisone 10 mg tablet 12.5 mg PO DAILY Rx Instructions: until 03/10/24 then decrease to 10 mg daily insulin glargine 100 unit/mL (3 mL) Insulin Pen 14 unit SUBCUT QPM Qty: 50 0RF acetazolamide 250 mg Tablet 250 mg PO BID Qty: 60 0RF sennosides [senna] 8.6 mg tablet 17.2 mg PO BEDTIME acetaminophen [Tylenol] 325 mg Tablet 650 mg PO TID trazodone 50 mg tablet 50 mg PO BEDTIME cyanocobalamin (vitamin B-12) 500 mcg Tablet 500 mcg PO DAILY fluoxetine 20 mg Tablet 20 mg PO DAILY gabapentin 300 mg Capsule 300 mg PO BEDTIME montelukast 10 mg Tablet 10 mg PO DAILY insulin lispro [Humalog U-100 Insulin] 100 unit/mL Solution See Protocol SUBCUT TIDWM Protocol: TITRATE PER PROTOCOL Rx Instructions: sliding scale 121-150=2 units; 151-200=4 units; 201-250=6 units; 251-350=10 units; 351-450=14 units; 451+=16 units ondansetron 4 mg Tablet,Disintegrating 4 mg PO Q8H PRN (Reason: Nausea) fluticasone propionate 50 mcg/actuation [place],Suspension 2 spray INTRANASAL DAILY Rx Instructions: administer into each nostril loratadine 10 mg Tablet 10 mg PO DAILY rosuvastatin 40 mg Tablet 40 mg PO DAILY tiotropium bromide [Spiriva with HandiHaler] 18 mcg Capsule, W/Inhalation Device 1 cap INHALATION DAILY Rx Instructions: puncture 1 cap using device; one dose = 2 inhalations fenofibrate 160 mg Tablet 160 mg PO BEDTIME budesonide-formoterol 160-4.5 mcg/actuation Hfa Aerosol Inhaler 2 puff INHALATION Q4H PRN (Reason: Wheezing) magnesium oxide 200 mg magnesium Tablet 200 mg PO BID albuterol sulfate 2.5 mg /3 mL (0.083 %) solution for nebulization 2.5 mg inhalation Q6H PRN (Reason: wheezing/cough) docusate sodium 100 mg Capsule 100 mg PO BID ipratropium-albuterol 0.5 mg-3 mg(2.5 mg base)/3 mL Solution For Nebulization 3 ml INHALATION Q4H PRN (Reason: COPD) polyethylene glycol 3350 [Miralax] 17 gram Powder In Packet 17 g PO DAILY insulin lispro 100 unit/mL Insulin Pen 6 unit SUBCUT AC bupropion HCl 100 mg tablet sustained-release 12 hr 100 mg PO BID Follow up/Referrals: Manish Vernon MD [Primary Care Provider] - Visit Report/Discharge Packet Stand Alone Forms: Patient Portal/API Discharge Data Primary Care Provider: Manish Vernon Attending Provider: Ramon Howard Admit Date/Time: 03/14/24 17:26 Quality VTE Deep Vein Thrombosis/Pulmonary Embolism Present on Admission: No MIPS - Admit I confirm the patient?s Advance Care Plan is present, Code status is documented, Surrogate decision maker is in patient?s record [If Yes, STOP here]: Yes MIPS - Meds 'Current medications' to include all prescriptions, [id number] products, herbals, cannabis/cannabidiol products, and vitamin/mineral/dietary (nutritional) supplements. I have utilized all available resources to obtain, update, or review the patient?s current medications. [If Yes, STOP here]: Yes MIPS - DC The patient has a history of heart transplant or Left Ventricular Assist Device (LVAD). If yes, STOP here.: No The patient has current or prior documentation of left ventricular ejection fraction (LVEF) less than or equal to 40%, or moderate or severely depressed left ventricular systolic function.: No A. The patient was prescribed or already taking an Angiotensin-Converting Enzyme (ALONDRA) Inhibitor, or Angiotensin Receptor Saman (ARB).: No B. The patient was prescribed or already taking a beta-saman. [If Yes to Both A & B, STOP here]: No Patient not prescribed/taking ALONDRA or ARB, no reason given.: No Patient not prescribed/taking beta-saman, no reason given.: No PROFEE Charge Codes Discharge inpatient/observation: [id number]
--- NOTE | 2024-03-16 11:10 | CM.DPNOTE ---
Addendum entered by GA Han 03/16/24 13:16: transport here. GAUGER CHIEF gave him signed med list and signed dc summary copy. SL Addendum entered by GA Han 03/16/24 11:22: GAUGER CHIEF efaxed signed dc summary SL Original Note: DCP Note GAUGER CHIEF reviewed EMR. Per provider, cleared to dc today back home to Per August at , can take her back today. p/u 1300. GAUGER CHIEF and RN Rayray met with pt in room, reviewed plan. pt in agreement. Pt reports she does not like the BiPAP at and that it comes off at night. liked the full face one from before. GAUGER CHIEF spoke with dtr Roxy on the phone. in agreement with DCP. reports she's been trying to get full face mask BiPAP for awhile. will continue to advocate for pt to get one at . Updated PAINT ROLLER COVERS SUPERVISOR/gave RN report number. Updated provider in morning rounds, agreed to add full face mask to dc order. Per August at , order provider placed should work to get pt proper DME/full face BiPAP. GAUGER CHIEF faxed signed med list, dc order, full face mask BiPAP order to (f [phone]). dc summary pending, no PASRR needed. P: pt to return to today around 1300. CM will fax signed dc sum when available. CM team will continue to follow as needed GA Han
[2024-03-16] MEDS: INSULIN LISPRO 100 UNIT/ML 3ML VIAL SUBCUT (11:42)
== END 2024-03-16 13:24 ==
LOC: ED 17:12 → ICU 03-15 09:06 → AC 03-15 13:50 → ICU 03-15 13:50
PROVIDERS: Admitting Provider Hospitalist; Emergency Provider Emergency Medicine; PCP Student in an Organized Health Care Education/Training Program; Referring Provider Emergency Medicine; Visit Provider Hospitalist
DX: J96.21 Acute and chronic respiratory failure with hypoxia (principal); J96.02 Acute respiratory failure with hypercapnia; I50.22 Chronic systolic (congestive) heart failure; G93.41 Metabolic encephalopathy; N17.9 Acute kidney failure, unspecified; J44.9 Chronic obstructive pulmonary disease, unspecified; E11.9 Type 2 diabetes mellitus without complications; E66.01 Morbid (severe) obesity due to excess calories; G47.30 Sleep apnea, unspecified; E03.9 Hypothyroidism, unspecified; Z68.43 Body mass index [BMI] 50.0-59.9, adult; Z79.4 Long term (current) use of insulin
CPT/HCPCS: 36415; 36600; 71045; 80053; 82805; 82962; 83605; 83880; 84145; 84484; 85025; 87040; 87633; 87797; 93005; 94640; 94660; 94762; 96365; 96372; 96376; 99284; 99285; G0378; J1644; J1815; J7613